=== PATIENT | male | born 1955 | race Caucasian/White ===

== ENCOUNTER 2017-03-20 15:49 | Inpatient (IN) | payer OTHER ==
[2017-03-20] VITALS (10 sets, daily range): BP systolic 173–190; BP diastolic 77–93; PULSE 78–109; RESP 16–24; TEMP 97.6–98; O2SAT 93–99
[~2017-03-20] VITALS: Ht 188 cm; Wt 72.1 kg
[~2017-03-20 15:49] MED LIST: AMLO5TAB96 PO
[2017-03-20] MEDS ORDERED: FUROSEMIDE 40 MG/4 ML VIAL IVP ONE (16:30)
[2017-03-20] MEDS ORDERED: SODIUM CHLORIDE 0.9% FLUSH 10 ML FLUSH IVF PRN (16:30)
[2017-03-20 16:39] LABS: AUTOMATED NEUTROPHIL # 13.6 TH/MM3 (1.8-7.7); BASOPHIL # 0.4 TH/MM3 (0-0.2); BASOPHIL % 1.2 % (0.0-2.0); EOSINOPHIL # 0.5 TH/MM3 (0-0.4); EOSINOPHIL % 1.7 % (0.0-4.0); LYMPH % 47.1 % (9.0-44.0); LYMPHOCYTE # 13.7 TH/MM3 (1.0-4.8); MEAN CELL VOLUME 85.5 FL (80.0-100.0); MEAN CORPUSCULAR HEMOGLOBIN 28.7 PG (27.0-34.0); MEAN CORPUSCULAR HGB CONC 33.5 % (32.0-36.0); MONO % 3.7 % (0.0-8.0); NEUT % 46.3 % (16.0-70.0); PLATELET COUNT 270 TH/MM3 (150-450); RED BLOOD COUNT 2.37 MIL/MM3 (4.50-5.90); WHITE BLOOD COUNT 29.3 TH/MM3 (4.0-11.0)
[2017-03-20 16:41] LABS: CHLORIDE 92 MEQ/L (98-107); POTASSIUM 4.4 MEQ/L (3.5-5.1); SODIUM (NA) 130 MEQ/L (136-145)
[2017-03-20 16:45] LABS: ANION GAP 24 MEQ/L (5-15)
[2017-03-20 16:48] LABS: ALT (GPT) 18 U/L (12-78); AST (GOT) 15 U/L (15-37)
[2017-03-20 16:50] LABS: TOTAL BILIRUBIN ADULT 0.6 MG/DL (0.2-1.0)
[2017-03-20 16:51] LABS: ALKALINE PHOSPHATASE 80 U/L (45-117); BLOOD UREA NITROGEN 189 MG/DL (7-18); CREATINE KINASE 348 U/L (39-308)
[2017-03-20 17:04] LABS: CKMB 16.1 NG/ML (0.5-3.6)
[2017-03-20 17:07] LABS: HEMATOCRIT 20.3 % (39.0-51.0); HEMO FLAGS AUTO DIFF
[2017-03-20 17:19] LABS: GLOMERULAR FILTRATION RATE 2 ML/MIN (>89)
--- NOTE | 2017-03-20 17:28 | RADRPT ---
EXAM DATE/TIME: 03/20/2017 17:08 [facility] COMPARISON: No previous studies available for comparison. INDICATIONS : Short of breath. MEDICAL HISTORY : None. SURGICAL HISTORY : None. ENCOUNTER: Initial ACUITY: 1 day PAIN SCORE: 0/10 LOCATION: Bilateral chest FINDINGS: A single view of the chest demonstrates mild to moderate pulmonary edema pattern with small effusions . Heart size mildly enlarged. No pneumothorax. CONCLUSION: 1. Mild to moderate pulmonary edema pattern with small effusions. Sebastián Greer MD on March 20, 2017 at 17:25 Board Certified Radiologist. This report was verified electronically.
[2017-03-20] MEDS ORDERED: SODIUM CHLOR 0.9% 250 ML INJ 250 ML IV ONE (17:30)
[2017-03-20 17:40] LABS: NEUTROPHIL # MANUAL DIFF 17.3 TH/MM3 (1.8-7.7); POLYS (SEG NEUTROPHILS) 59 % (16-70)
[2017-03-20 17:41] LABS: PLATELET ESTIMATE SMEAR NORMAL (NORMAL); PLATELET MORPHOLOGY NORMAL (NORMAL); ROULEAUX PRESENT (NORMAL); SCAN/DIFF FINAL DIFF MANUAL; WBC DIFF SAMPLE 100
--- NOTE | 2017-03-20 18:14 | PD ---
HPI Chief Complaint: Respiratory Symptoms Time Seen by Provider: 16:20 Travel History International Travel<30 days: No Contact w/Intl Traveler<30days: No Traveled to known affect area: No History of Present Illness HPI Patient is 61 years old. He arrives complaining increasing shortness of breath for the past 3 days or so. Orthopnea reported. He's had an occasional cough. He denies difficulty urinating or any change in his normal urinary habits. He has no abdominal pain. He smokes tobacco. He states he quit drinking alcohol a few weeks ago. He's had nausea however no vomiting. He's had no chest pain. Pt has had no outside medical follow up to date. [facility] Past Medical History Medical History: Denies Significant Hx Diminished Hearing: No Gastrointestinal Disorders: No Genitourinary: No Hypertension: No Inguinal Hernia: Yes (RT) Musculoskeletal: No Neurologic: No Reproductive: No Respiratory: No Influenza Vaccination: No Past Surgical History Surgical History: No Previous Surgery Other Surgery: No Social History Alcohol Use: No ("QUIT 2 MONTHS AGO") Tobacco Use: Yes (3 CIGS "QUITTING") Substance Use: No Allergies-Medications (Allergen,Severity, Reaction): Coded Allergies: No Known Allergies (Verified , 03/20/17) Reported Meds & Prescriptions Reported Meds & Active Scripts Active No Active Prescriptions or Reported Medications Review of Systems Except as stated in HPI: all other systems reviewed are Neg Physical Exam Narrative GENERAL: 61 M WNWD speaking full sentences SKIN: Focused skin assessment warm/dry. HEAD: Atraumatic. Normocephalic. EYES: Pupils equal and round. No scleral icterus. No injection or drainage. ENT: No nasal bleeding or discharge. Mucous membranes pink and moist. NECK: Trachea midline. No JVD. CARDIOVASCULAR: Regular rate and rhythm. No murmur appreciated. RESPIRATORY: Minimal rales bilaterally. Minimal tachypnea. GASTROINTESTINAL: Abdomen soft, non-tender, nondistended. Hepatic and splenic margins not palpable. MUSCULOSKELETAL: No obvious deformities. No clubbing. No cyanosis. 2+ edema bilateral ankles. NEUROLOGICAL: Awake and alert. No obvious cranial nerve deficits. Motor grossly within normal limits. Normal speech. PSYCHIATRIC: Appropriate mood and affect; insight and judgment normal. Data Data Last Documented VS Vital Signs Date Time Temp Pulse Resp B/P Pulse Ox O2 Delivery O2 Flow Rate FiO2 03/20/17 16:45 87 16 174/86 94 03/20/17 16:30 Room Air 03/20/17 16:26 97.6 Orders Complete Blood Count With Diff (03/20/17 16:20) Comprehensive Metabolic Panel (03/20/17 16:20) B-Type Natriuretic Peptide (03/20/17 16:20) D-Dimer (03/20/17 16:20) Ckmb (Isoenzyme) Profile (03/20/17 16:20) Troponin I (03/20/17 16:20) Iv Access Insert/Monitor (03/20/17 16:20) Electrocardiogram (03/20/17 16:20) Ecg Monitoring (03/20/17 16:20) Oximetry (03/20/17 16:20) Oxygen Administration (03/20/17 16:20) Chest, Single Ap (03/20/17 16:20) Sodium Chloride 0.9% Flush (Ns Flush) (03/20/17 16:30) Furosemide Inj (Lasix Inj) (03/20/17 16:30) Us Leg Venous Doppler Bilat (03/20/17 ) CKMB (03/20/17 16:27) CKMB% (03/20/17 16:27) Type And Screen (03/20/17 17:21) Red Blood Cells (Rbc) (03/20/17 17:21) Blood Product Administration .UPON TRANSFUSION (03/20/17 17:21) Sodium Chlor 0.9% 250 Ml Inj (Ns 250 Ml (03/20/17 17:30) Urinary Catheter Insert/Apply (03/20/17 17:25) Us Kidney/Renal/Bladder (03/20/17 ) Admit Order (Ed Use Only) (03/20/17 18:00) Labs Laboratory Tests Test 03/20/17 16:27 White Blood Count 29.3 TH/MM3 Red Blood Count 2.37 MIL/MM3 Hemoglobin 6.8 GM/DL Hematocrit 20.3 % Mean Corpuscular Volume 85.5 FL Mean Corpuscular Hemoglobin 28.7 PG Mean Corpuscular Hemoglobin 33.5 % Concent Red Cell Distribution Width 13.0 % Platelet Count 270 TH/MM3 Mean Platelet Volume 7.7 FL Neutrophils (%) (Auto) 46.3 % Lymphocytes (%) (Auto) 47.1 % Monocytes (%) (Auto) 3.7 % Eosinophils (%) (Auto) 1.7 % Basophils (%) (Auto) 1.2 % Neutrophils # (Auto) 13.6 TH/MM3 Lymphocytes # (Auto) 13.7 TH/MM3 Monocytes # (Auto) 1.1 TH/MM3 Eosinophils # (Auto) 0.5 TH/MM3 Basophils # (Auto) 0.4 TH/MM3 CBC Comment AUTO DIFF Differential Total Cells 100 Counted Neutrophils % (Manual) 59 % Lymphocytes % 39 % Monocytes % 2 % Neutrophils # (Manual) 17.3 TH/MM3 Differential Comment FINAL DIFF MANUAL Platelet Estimate NORMAL Platelet Morphology Comment NORMAL Rouleau PRESENT D-Dimer Quantitative (PE/DVT) 3.55 MG/L FEU Sodium Level 130 MEQ/L Potassium Level 4.4 MEQ/L Chloride Level 92 MEQ/L Carbon Dioxide Level 14.0 MEQ/L Anion Gap 24 MEQ/L Blood Urea Nitrogen 189 MG/DL Creatinine 21.00 MG/DL Estimat Glomerular Filtration 2 ML/MIN Rate Random Glucose 139 MG/DL Calcium Level 7.5 MG/DL Total Bilirubin 0.6 MG/DL Aspartate Amino Transf 15 U/L (AST/SGOT) Alanine Aminotransferase 18 U/L (ALT/SGPT) Alkaline Phosphatase 80 U/L Total Creatine Kinase 348 U/L Creatine Kinase MB 16.1 NG/ML Creatine Kinase MB % 4.6 % Troponin I 0.20 NG/ML B-Type Natriuretic Peptide 3988 PG/ML Total Protein 7.4 GM/DL Albumin 3.2 GM/DL [facility] Medical Decision Making Medical Screen Exam Complete: Yes Emergency Medical Condition: Yes Medical Record Reviewed: Yes Differential Diagnosis CHF, PNA, renal failure, hypoalbuminemia, arrhythmia Narrative Course CBC & BMP Diagram 03/20/17 16:27 AG 24 BNP 3988 Tn 0.20 Total CK 348 EKG: Sinus, rate 88, LVH present Last 24 hours Impressions Chest X-Ray 03/20/17 1620 Signed Impressions: Service Date/Time: Monday, March 20, 2017 17:08 - CONCLUSION: 1. Mild to moderate pulmonary edema pattern with small effusions. Sebastián Greer MD Renal Ultrasound 03/20/17 0000 Signed Impressions: Service Date/Time: Monday, March 20, 2017 17:46 - CONCLUSION: 1. Moderate bilateral hydronephrosis. Distended bladder. Enlarged prostate. Sebastián Greer MD Lower Extremity Ultrasound 03/20/17 0000 Signed Impressions: Service Date/Time: Monday, March 20, 2017 17:30 - CONCLUSION: Normal examination. Sebastián rGeer MD PT will be admitted to [facility] [place]. d/w Dr Bonilla: renal sono added; carson placed, 1L dark urine guaiac negative 2u PRBCs ordered d/w Dr Eduardo for Master Fire Control Technician service Critical Care Narrative Aggregate critical care time was 40 minutes. Time to perform other separately billable procedures was not included in the critical care time. My time did not include minutes spent treating any other patients simultaneously or on activities that did not directly contribute to the patient's treatment. The services I provided to this patient were to treat and/or prevent clinically significant deterioration that could result in: Arrhythmia, multiorgan failure, septic shock I provided critical care services requiring my management, as noted below: Chart data review, documentation time, medication orders and management, vital sign assessments/reviewing monitor data, ordering and reviewing lab tests, ordering and interpreting/reviewing x-rays and diagnostic studies, care of the patient and discussion of the patient with the admitting physicians. HemaPrompt Point of Care Internal Pos. & Neg. Controls: Passed Fecal Specimen Occult Blood: Negative Diagnosis Primary Impression: Uropathy, obstructive Additional Impressions: Renal failure Qualified Code: N17.9 - Acute renal failure, unspecified acute renal failure type Anemia Qualified Code: D64.9 - Anemia, unspecified type Dyspnea Qualified Code: R06.00 - Dyspnea, unspecified type Admitting Information Admitting Physician Requests: Admit Scripts No Active Prescriptions or Reported Meds David Contreras MD Mar 20, 2017 18:14
[2017-03-20] MEDS ORDERED: SENNOSIDES 8.6 MG TAB PO PRN (18:15)
[2017-03-20] MEDS ORDERED: MAGNESIUM HYDROXIDE SUSP 30 ML CUP PO PRN (18:15)
[2017-03-20] MEDS ORDERED: CHLORHEXIDINE GLUCONATE 2 % 1 PACK (2 CLOTHS) TOP PRN (18:15)
[2017-03-20] MEDS ORDERED: SODIUM CHLORIDE 0.9% FLUSH 10 ML FLUSH IV FLUSH PRN (18:15)
[2017-03-20] MEDS ORDERED: ACETAMINOPHEN 325 MG TAB PO PRN (18:15)
[2017-03-20] MEDS ORDERED: BISACODYL 10 MG SUPP RECTAL PRN (18:15)
[2017-03-20] MEDS ORDERED: ACETAMINOPHEN/HYDROcodone 325 MG/5 MG TAB PO PRN (18:15)
[2017-03-20] MEDS ORDERED: MISCELLANEOUS NURSING INFORMATION XX SCH (18:15)
[2017-03-20] MEDS ORDERED: RESP: ALBUTEROL 2.5 MG/3 ML NEB (PRN) INH (18:15)
--- NOTE | 2017-03-20 18:16 | RADRPT ---
EXAM DATE/TIME: 03/20/2017 17:30 [facility] COMPARISON: No previous studies available for comparison. INDICATIONS : Bilateral leg swelling. MEDICAL HISTORY : Hernia, inguinal. SURGICAL HISTORY : None. ENCOUNTER: Initial ACUITY: 2 day PAIN SCORE: 0/10 LOCATION: Bilateral leg. TECHNIQUE: Venous ultrasound of the left and right leg was performed from the inguinal ligament to the proximal calf. Real-time, color Doppler and spectral tracing, compression and augmentation techniques were us ed. FINDINGS: RIGHT LEG: There is normal compressibility of the deep venous system from the inguinal region to the proximal ca lf. No echogenic clot is seen in the lumen of the common femoral, femoral, popliteal, and posterior tibial veins. There is a normal response of the venous system to proximal and distal augmentation an d respiration. LEFT LEG: There is normal compressibility of the deep venous system from the inguinal region to the proximal ca lf. No echogenic clot is seen in the lumen of the common femoral, femoral, popliteal, and posterior tibial veins. There is a normal response of the venous system to proximal and distal augmentation an d respiration. CONCLUSION: Normal examination. Sebastián Greer MD on March 20, 2017 at 18:13 Board Certified Radiologist. This report was verified electronically.
--- NOTE | 2017-03-20 18:18 | RADRPT ---
EXAM DATE/TIME: 03/20/2017 17:46 [facility] COMPARISON: No previous studies available for comparison. INDICATIONS : Increased BUN/creatinine. MEDICAL HISTORY : Hernia, inguinal. SURGICAL HISTORY : None. ENCOUNTER: Initial ACUITY: 1 day PAIN SCORE: 0/10 LOCATION: Bilateral flank MEASUREMENTS: RIGHT KIDNEY: 13.0 x 6.2 x 6.1 cm LEFT KIDNEY: 13.7 x 5.5 x 6.6 cm FINDINGS: There is moderate bilateral hydronephrosis. Kidneys are enlarged to between 13 and 14 cm bilaterally . The bladder is distended to almost 960 mL. There is some debris in the bladder. Prostate appears en larged. CONCLUSION: 1. Moderate bilateral hydronephrosis. Distended bladder. Enlarged prostate. Sebastián Greer MD on March 20, 2017 at 18:14 Board Certified Radiologist. This report was verified electronically.
[2017-03-20 19:07] LABS: APTT (PATIENT) 34.2 SEC (24.3-30.1); INTERNATIONAL NORMALIZED RATIO 1.1 RATIO; PROTHROMBIN TIME - PATIENT 12.4 SEC (9.8-11.6)
[2017-03-20 19:15] LABS: MAGNESIUM 1.7 MG/DL (1.5-2.5)
[2017-03-20 19:16] LABS: GLUCOSE,URINE NEG (NEG); KETONE, URINE NEG (NEG); NITRITE,URINE NEG (NEG); PH, URINE 5.5 (5.0-8.5)
[2017-03-20 19:25] LABS: BLOOD, URINE MOD (NEG)
[2017-03-20 19:26] LABS: SQUAMOUS EPITHELIAL CELL URINE 0-5 /hpf (0-5); URINE COLOR YELLOW (YELLW/STRAW); WBC, URINE 0-2 /hpf (0-5)
[2017-03-20 19:27] LABS: COMMENT (UR) CULT NOT INDICATED; CULTURE IF INDICATED CULT NOT INDICATED; MUCUS URINE OCC /lpf (OCC)
[2017-03-20] MEDS: DOCUSATE SODIUM 50 MG/SENNA 8.6 MG TAB PO SCH (21:00)
[2017-03-20] MEDS: SODIUM CHLORIDE 0.9% FLUSH 10 ML FLUSH IV FLUSH SCH (21:46)
[2017-03-20] MEDS ORDERED: SODIUM CHLOR 0.9% 1000 ML INJ 1,000 ML IV SCH (23:00)
[2017-03-21] VITALS (12 sets, daily range): BP systolic 146–173; BP diastolic 76–91; PULSE 61–82; RESP 12–23; TEMP 97.2–98.5; O2SAT 95–100
--- NOTE | 2017-03-21 00:24 | HHI.HP ---
HPI Service Critical Care Medicine Primary Care Physician No Primary Care Physician Admission Diagnosis Obstructive Uropathy/Renal Failure; Dyspnea; Pulmonary Edema; Anemia Diagnosis: Travel History International Travel<30 Days: No Contact w/Intl Traveler <30 Da: No Traveled to Known Affected Are: No History of Present Illness 61 yo WM with PMH of hypertension (not on medical therapy), daily alcohol use, not followed by primary care physician who presenteds to [facility] emergency department [place] with a chief complaint of shortness of breath. He states that for about the last week he has had cough, orthopnea, shortness of breath. Over the last 3 days he has had pedal edema. He denies chest pain but stated that a week ago he had tightness in his chest while in bed. He denies any exertional chest pain or chest tightness. + dysnea on exertion. He states that he has not been feeling well for 3-4 months after he had an episode of sore throat, sinus congestion, myalgias, low-grade fever. He has had poor appetite for the last couple of months and states that he has lost 8-12 pounds over the last 2 months. He attributes his weight loss to discontinuation of beer 2 months ago. Upon presentation to the ED he was noted to be in renal failure with BUN 189 and Creatinine 21. BNP is 3988. Troponin 0.2. Pollock was placed and he had 1 L urine output immediately. He had hematuria after difficult cathter placement but denies hematuria at home. He does indicate difficulty with voiding completely and with "weak stream". Denies dysuria or flank pain. He is anemic with Hgb 6.8. He has had diarrhea for the last month but denies melena, BRBPR. He has never had an EGD or colonoscopy. He has been taking an Alkaseltzer Cold combination drug daily for 1 week but he is uncertain if it contains NSAIDS. Review of Systems ROS Limitations: Clinical Condition Past Family Social History Allergies: Coded Allergies: No Known Allergies (Verified , 03/20/17) Past Medical History Hypertension (not on medical therapy) Does not have a primary physician Past Surgical History Mole removal Reported Medications None Family History Father at age 72 with a stroke. He had diabetes Mother of complications of emphysema at age 67. He denies family history of cardiac or renal disease Social History He states he used to be a daily beer drinker of 2-6 beers per day. 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 He is and has 3 adult children Physical Exam Vital Signs Vital Signs Date Time Temp Pulse Resp B/P Pulse Ox O2 Delivery O2 Flow Rate FiO2 03/20/17 23:00 80 03/20/17 22:52 98.0 84 24 174/84 96 03/20/17 21:30 98.0 82 16 173/82 96 03/20/17 21:30 96 Nasal Cannula 3.00 03/20/17 19:28 97 Nasal Cannula 2 03/20/17 19:28 78 18 177/90 97 Nasal Cannula 2 03/20/17 18:00 94 16 183/91 99 03/20/17 16:45 87 16 174/86 94 03/20/17 16:30 98 Room Air 03/20/17 16:26 97.6 89 20 190/77 94 03/20/17 16:05 91 24 190/77 98 03/20/17 16:05 91 24 98 03/20/17 15:56 97.6 109 16 177/93 93 Physical Exam GENERAL: Ill appearing thin male with pallor. SKIN: Warm and dry. HEAD: Atraumatic. Normocephalic. EYES: Pupils equal and round. No scleral icterus. No injection or drainage. ENT: Mucous membranes pink and moist. NECK: Trachea midline. No JVD appreciated. CARDIOVASCULAR: Regular rate and rhythm. No murmurs rubs or gallops. RESPIRATORY: No accessory muscle use. Clear to auscultation. Breath sounds equal bilaterally. On NC GASTROINTESTINAL: Abdomen soft, non-tender, nondistended. Reducible R inguinal hernia. Bowel sounds present. MUSCULOSKELETAL: Extremities without clubbing, cyanosis. 2+ pedal edema going up about 1/3 of lower leg bilaterally. NEUROLOGICAL: Awake and alert. No obvious cranial nerve deficits. Motor grossly within normal limits. Normal speech. Laboratory Laboratory Tests Test 03/20/17 03/20/17 03/20/17 03/20/17 16:27 17:25 18:02 18:20 White Blood Count 29.3 Red Blood Count 2.37 Hemoglobin 6.8 Hematocrit 20.3 Mean Corpuscular Volume 85.5 Mean Corpuscular Hemoglobin 28.7 Mean Corpuscular Hemoglobin 33.5 Concent Red Cell Distribution Width 13.0 Platelet Count 270 Mean Platelet Volume 7.7 Neutrophils (%) (Auto) 46.3 Lymphocytes (%) (Auto) 47.1 Monocytes (%) (Auto) 3.7 Eosinophils (%) (Auto) 1.7 Basophils (%) (Auto) 1.2 Neutrophils # (Auto) 13.6 Lymphocytes # (Auto) 13.7 Monocytes # (Auto) 1.1 Eosinophils # (Auto) 0.5 Basophils # (Auto) 0.4 CBC Comment AUTO DIFF Differential Total Cells 100 Counted Neutrophils % (Manual) 59 Lymphocytes % 39 Monocytes % 2 Neutrophils # (Manual) 17.3 Differential Comment FINAL DIFF MANUAL Platelet Estimate NORMAL Platelet Morphology Comment NORMAL Rouleau PRESENT D-Dimer Quantitative (PE/DVT) 3.55 Sodium Level 130 Potassium Level 4.4 Chloride Level 92 Carbon Dioxide Level 14.0 Anion Gap 24 Blood Urea Nitrogen 189 Creatinine 21.00 Estimat Glomerular Filtration 2 Rate Random Glucose 139 Calcium Level 7.5 Total Bilirubin 0.6 Aspartate Amino Transf 15 (AST/SGOT) Alanine Aminotransferase 18 (ALT/SGPT) Alkaline Phosphatase 80 Total Creatine Kinase 348 Creatine Kinase MB 16.1 Creatine Kinase MB % 4.6 Troponin I 0.20 B-Type Natriuretic Peptide 3988 Total Protein 7.4 Albumin 3.2 Blood Type O NEGATIVE O NEGATIVE Antibody Screen NEGATIVE Crossmatch Leukocyte-Reduced Red Blood Cells Blood Bank Comment Urine Color YELLOW Urine Turbidity CLEAR Urine pH 5.5 Urine Specific [place] 1.010 Urine Protein NEG Urine Glucose (UA) NEG Urine Ketones NEG Urine Occult Blood MOD Urine Nitrite NEG Urine Bilirubin NEG Urine Leukocyte Esterase TRACE Urine RBC 4-9 Urine WBC 0-2 Urine Squamous Epithelial 0-5 Cells Urine Mucus OCC Microscopic Urinalysis Comment CULT NOT INDICATED Urine Eosinophils NONE SEEN Urine Random Creatinine 61.5 Urine Random Sodium 59 Test 03/20/17 03/20/17 18:40 18:45 Lactic Acid Level 1.1 Prothrombin Time 12.4 Prothromb Time International 1.1 Ratio Activated Partial 34.2 Thromboplast Time Fibrinogen 506 Phosphorus Level 10.0 Magnesium Level 1.7 Troponin I 0.23 Amylase Level 48 Lipase 164 Result Diagram: 03/20/17 1627 03/20/17 162 Assessment and Plan Assessment and Plan NEURO: Lortab as needed for pain RESP: Nasal cannula wean as tolerated CV: Hypertension Pulmonary edema Obtain 2-D echo, serial EKG, serial cardiac markers. Hold ASA /anticoagulants at this time as no symptoms of ACS and patient has symptomatic anemia. Metoprolol 25 mg by mouth every 12 hours. Not a candidate for ETHEL inhibitor due to acute kidney injury. GI: Reducible right inguinal hernia NPO pending CT results. . FEN/RENAL: Acute kidney injury Urinary obstruction UOP was 1 L immediately after Pollock was placed. Subsequent urine output was 450 over about 3 hours. We'll continue to monitor urine output closely. BUN is elevated at 189 the patient's mentation is normal. Potassium is okay. Nephrology consulted ID: Leukocytosis Covered empirically with cefepime for possibility of sepsis given his leukocytosis, possible prostatitis. Follow-up blood and urine culture. HEME: Anemia Leukocytosis - lymphocytosis. Anemia with Hgb 6.8. Transfuse 1 unit packed red cells and repeat hemoglobin was 6.7. Transfused additional unit packed red cells and will follow-up hemoglobin posttransfusion. Patient does not report any GI bleeding. Hemoccult was negative in the ED. Initiate workup for anemia /hemolysis. Obtain CT chest abdomen and pelvis without contrast. Evaluate for retroperitoneal hemorrhage as well as malignant process. D-dimer was elevated. Bilateral lower extremity ultrasounds are negative. Ddimer elevation may be acute phase reactant. PAtient with severe anemia so would not be a candidate for anticoagulation so will not workup further for PE at this time. ENDO: Euglycemic PROPH: Protonix 40 g IV daily for stress ulcer prophylaxis. SCDs for DVT prophylaxis. Hold on pharmacologic DVT prophylaxis due to severe anemia. ACCESS: PIV providing adequate access at this time. Level 3 H and P/ Mine Schultz MD Mar 21, 2017 00:24
[2017-03-21] MEDS: CEFEPIME INJ 1,000 MG in SODIUM CHLORIDE 0.9% INJ 100 ML IV SCH (00:38)
[2017-03-21 01:49] LABS: MEAN CELL VOLUME 86.8 FL (80.0-100.0); MEAN CORPUSCULAR HEMOGLOBIN 28.5 PG (27.0-34.0); MEAN CORPUSCULAR HGB CONC 32.8 % (32.0-36.0); PLATELET COUNT 193 TH/MM3 (150-450); RED BLOOD COUNT 2.34 MIL/MM3 (4.50-5.90); RED CELL DISTRIBUTION WIDTH 15.3 % (11.6-17.2); WHITE BLOOD COUNT 22.8 TH/MM3 (4.0-11.0)
[2017-03-21 01:55] LABS: REVIEW FLAG FINAL
[2017-03-21 01:58] LABS: HEMATOCRIT 20.3 % (39.0-51.0)
[2017-03-21 02:19] LABS: CREATINE KINASE 249 U/L (39-308)
[2017-03-21 02:29] LABS: BICARBONATE 15.4 MEQ/L (21.0-32.0); POTASSIUM 4.5 MEQ/L (3.5-5.1)
[2017-03-21 02:31] LABS: CKMB 11.7 NG/ML (0.5-3.6)
[2017-03-21 02:43] LABS: CALCIUM-PROTEIN CORRECTED 7.7 MG/DL (8.5-10.1)
[2017-03-21] MEDS ORDERED: FUROSEMIDE 40 MG/4 ML VIAL IV PUSH ONE (02:45)
[2017-03-21] MEDS: METOPROLOL TARTRATE 25 MG TAB PO SCH ×3 (03:16→19:54)
[2017-03-21] MEDS: CHLORHEXIDINE GLUCONATE 2 % 1 PACK (2 CLOTHS) TOP SCH (03:17)
[2017-03-21 05:23] LABS: CREATINE KINASE 223 U/L (39-308)
[2017-03-21 05:38] LABS: CKMB 10.6 NG/ML (0.5-3.6)
[2017-03-21] MEDS ORDERED: DIATRIZOATE MEGLUM/DIATRIZOATE SOD 9 ML CUP PO ONE (07:45)
[2017-03-21] MEDS: PANTOPRAZOLE SODIUM 40 MG VIAL IV SCH (08:37)
[2017-03-21] MEDS: DOCUSATE SODIUM 50 MG/SENNA 8.6 MG TAB PO SCH ×2 (08:37→19:55)
[2017-03-21] MEDS: SODIUM CHLORIDE 0.9% FLUSH 10 ML FLUSH IV FLUSH SCH ×2 (08:37→19:55)
--- NOTE | 2017-03-21 08:44 | PD.CONS ---
HPI Service Urology Consult Requested By Primary Care Physician No Primary Care Physician Diagnosis: History of Present Illness 61 year-old male presents with weakness and lethargy over the last few weeks. Patient is noted to be a chronic drinker with 4-6 beers at night. He notes a moderate urinary stream with nocturia 3-4 times. He noticed increased difficulty with urination over last few days and the Pollock catheter was placed in the emergency room for over a liter. His creatinine on admission was 19.95. He does admit to a family history of prostate cancer with his grandfather having the disease. PSA on admission was noted to be 82.12. He states he does not have a primary care doctor and has not been to see a physician in many years. He does note easy bruising at times and has petechia over his upper extremities. He also has been experiencing lower extremity edema and was found to be in pulmonary edema on his admission chest x-ray. He denies any prior surgery. He has noted some sinusitis and flulike symptoms over the last few weeks also. He denies any dark colored stools. Review of Systems Constitutional: DENIES: Diaphoretic episodes Endocrine: DENIES: Heat/cold intolerance Eyes: DENIES: Blurred vision Ears, nose, mouth, throat: DENIES: Tinnitus Respiratory: DENIES: Apneas Cardiovascular: DENIES: Chest pain Gastrointestinal: DENIES: Abdominal pain Musculoskeletal: DENIES: Joint pain Integumentary: DENIES: Abnormal pigmentation Hematologic/lymphatic: COMPLAINS OF: Bruising Immunologic/allergic: DENIES: Eczema Neurologic: DENIES: Abnormal gait Psychiatric: DENIES: Anxiety Past Family Social History Past Medical History Hypertension Kidney stone 30 years ago Past Surgical History Mole removal Allergies: Coded Allergies: No Known Allergies (Verified , 03/20/17) Family History Emphysema Prostate cancer noted in his grandfather on his mother's side. Social History Smoker one half pack per day for 40 years 4-6 beers per evening for many years. Physical Exam Vital Signs Date Time Temp Pulse Resp B/P Pulse Ox O2 Delivery O2 Flow Rate FiO2 03/21/17 04:00 98.1 79 23 173/91 97 03/21/17 04:00 98.1 79 23 173/91 97 03/21/17 03:00 98.5 77 15 151/79 99 03/21/17 00:00 98.3 80 18 160/85 95 03/21/17 00:00 98.3 80 18 160/85 95 03/20/17 23:00 80 03/20/17 22:52 98.0 84 24 174/84 96 03/20/17 21:30 98.0 82 16 173/82 96 03/20/17 21:30 96 Nasal Cannula 3.00 03/20/17 19:28 97 Nasal Cannula 2 03/20/17 19:28 78 18 177/90 97 Nasal Cannula 2 03/20/17 18:00 94 16 183/91 99 03/20/17 16:45 87 16 174/86 94 03/20/17 16:30 98 Room Air 03/20/17 16:26 97.6 89 20 190/77 94 03/20/17 16:05 91 24 190/77 98 03/20/17 16:05 91 24 98 03/20/17 15:56 97.6 109 16 177/93 93 Physical Exam GENERAL: This is a well-nourished, well-developed patient, in no apparent distress. SKIN: No rashes, ecchymoses or lesions. Cool and dry. HEAD: Atraumatic. Normocephalic. No temporal or scalp tenderness. EYES: Pupils equal round and reactive. Extraocular motions intact. No scleral icterus. No injection or drainage. ENT: Nose without bleeding, purulent drainage or septal hematoma. Throat without erythema, tonsillar hypertrophy or exudate. Uvula midline. Airway patent. NECK: Trachea midline. No JVD or lymphadenopathy. Supple, nontender, no meningeal signs. CARDIOVASCULAR: Regular rate and rhythm without murmurs, gallops, or rubs. RESPIRATORY: Clear to auscultation. Breath sounds equal bilaterally. No wheezes , rales, or rhonchi. GASTROINTESTINAL: Abdomen soft, non-tender, nondistended. No hepato-splenomegaly , or palpable masses. No guarding. GENITOURINARY: Left inguinal hernia is present, testes are descended without masses, circumcised phallus, rectal exam shows a firm prostate noted but no nodules palpated MUSCULOSKELETAL: Extremities without clubbing, cyanosis, or edema. No joint tenderness, effusion, or edema noted. No calf tenderness. Negative Homans sign bilaterally. NEUROLOGICAL: Awake and alert. Cranial nerves II through XII intact. Motor and sensory grossly within normal limits. Five out of 5 muscle strength in all muscle groups. Normal speech. Laboratory Tests Test 03/20/17 03/20/17 03/20/17 03/20/17 16:27 17:25 18:02 18:20 White Blood Count 29.3 Red Blood Count 2.37 Hemoglobin 6.8 Hematocrit 20.3 Mean Corpuscular Volume 85.5 Mean Corpuscular Hemoglobin 28.7 Mean Corpuscular Hemoglobin 33.5 Concent Red Cell Distribution Width 13.0 Platelet Count 270 Mean Platelet Volume 7.7 Neutrophils (%) (Auto) 46.3 Lymphocytes (%) (Auto) 47.1 Monocytes (%) (Auto) 3.7 Eosinophils (%) (Auto) 1.7 Basophils (%) (Auto) 1.2 Neutrophils # (Auto) 13.6 Lymphocytes # (Auto) 13.7 Monocytes # (Auto) 1.1 Eosinophils # (Auto) 0.5 Basophils # (Auto) 0.4 CBC Comment AUTO DIFF Differential Total Cells 100 Counted Neutrophils % (Manual) 59 Lymphocytes % 39 Monocytes % 2 Neutrophils # (Manual) 17.3 Differential Comment FINAL DIFF MANUAL Platelet Estimate NORMAL Platelet Morphology Comment NORMAL Rouleau PRESENT D-Dimer Quantitative (PE/DVT) 3.55 Sodium Level 130 Potassium Level 4.4 Chloride Level 92 Carbon Dioxide Level 14.0 Anion Gap 24 Blood Urea Nitrogen 189 Creatinine 21.00 Estimat Glomerular Filtration 2 Rate Random Glucose 139 Calcium Level 7.5 Total Bilirubin 0.6 Aspartate Amino Transf 15 (AST/SGOT) Alanine Aminotransferase 18 (ALT/SGPT) Alkaline Phosphatase 80 Total Creatine Kinase 348 Creatine Kinase MB 16.1 Creatine Kinase MB % 4.6 Troponin I 0.20 B-Type Natriuretic Peptide 3988 Total Protein 7.4 Albumin 3.2 Blood Type O NEGATIVE O NEGATIVE Antibody Screen NEGATIVE Crossmatch Leukocyte-Reduced Red Blood Cells Blood Bank Comment Urine Color YELLOW Urine Turbidity CLEAR Urine pH 5.5 Urine Specific [place] 1.010 Urine Protein NEG Urine Glucose (UA) NEG Urine Ketones NEG Urine Occult Blood MOD Urine Nitrite NEG Urine Bilirubin NEG Urine Leukocyte Esterase TRACE Urine RBC 4-9 Urine WBC 0-2 Urine Squamous Epithelial 0-5 Cells Urine Mucus OCC Microscopic Urinalysis Comment CULT NOT INDICATED Urine Eosinophils NONE SEEN Urine Random Creatinine 61.5 Urine Random Sodium 59 Test 03/20/17 03/20/17 03/20/17 03/21/17 18:40 18:45 22:21 01:25 Lactic Acid Level 1.1 Prothrombin Time 12.4 Prothromb Time International 1.1 Ratio Activated Partial 34.2 Thromboplast Time Fibrinogen 506 Phosphorus Level 10.0 Magnesium Level 1.7 Troponin I 0.23 0.26 Amylase Level 48 Lipase 164 Nasal Screen MRSA (PCR) MRSA NOT DETECTED White Blood Count 22.8 Red Blood Count 2.34 Hemoglobin 6.7 Hematocrit 20.3 Mean Corpuscular Volume 86.8 Mean Corpuscular Hemoglobin 28.5 Mean Corpuscular Hemoglobin 32.8 Concent Red Cell Distribution Width 15.3 Platelet Count 193 Mean Platelet Volume 8.3 Sodium Level 131 Potassium Level 4.5 Chloride Level 95 Carbon Dioxide Level 15.4 Anion Gap 21 Blood Urea Nitrogen 182 Creatinine 19.95 Estimat Glomerular Filtration 2 Rate Random Glucose 142 Calcium Level 7.3 Protein Corrected Calcium 7.7 Total Creatine Kinase 249 Creatine Kinase MB 11.7 Total Protein 6.4 Prostate Specific Antigen 82.12 Screen Test 03/21/17 04:30 Total Creatine Kinase 223 Creatine Kinase MB 10.6 Troponin I 0.25 Date/Time Procedure Status Source Growth 03/21/17 01:30 Aerobic Blood Culture Received Blood Peripheral Pending 03/21/17 01:30 Anaerobic Blood Culture Received Blood Peripheral Pending Result Diagram: 03/21/17 0125 03/21/17 0125 Imaging Last Impressions Chest X-Ray 03/20/17 1620 Signed Impressions: Service Date/Time: Monday, March 20, 2017 17:08 - CONCLUSION: 1. Mild to moderate pulmonary edema pattern with small effusions. Sebastián Greer MD Renal Ultrasound 03/20/17 0000 Signed Impressions: Service Date/Time: Monday, March 20, 2017 17:46 - CONCLUSION: 1. Moderate bilateral hydronephrosis. Distended bladder. Enlarged prostate. Sebastián Greer MD Lower Extremity Ultrasound 03/20/17 0000 Signed Impressions: Service Date/Time: Monday, March 20, 2017 17:30 - CONCLUSION: Normal examination. Sebastián Greer MD Assessment and Plan Assessment and Plan 61-year-old male with acute renal failure and evidence of bladder outlet obstruction with elevated PSA and family history of prostate cancer. Maintain Pollock catheter and monitor for postobstructive diuresis. Holding replacement fluids at present due to evidence of pulmonary edema on chest x-ray. CT scan ordered for later today. We'll start Flomax in the future once his creatinine starts to baseline. Once Pollock catheter has been removed and he is voiding we'll need to repeat PSA at that time. We'll follow with you. Thank you for the consult and allowing me to participate in the care of this patient. Zion Fine DO Mar 21, 2017 08:44
[2017-03-21 11:13] LABS: AUTOMATED NEUTROPHIL # 11.8 TH/MM3 (1.8-7.7); BASOPHIL # 0.1 TH/MM3 (0-0.2); BASOPHIL % 0.4 % (0.0-2.0); EOSINOPHIL # 0.6 TH/MM3 (0-0.4); EOSINOPHIL % 2.6 % (0.0-4.0); LYMPHOCYTE # 9.5 TH/MM3 (1.0-4.8); MEAN CELL VOLUME 85.8 FL (80.0-100.0); MEAN CORPUSCULAR HEMOGLOBIN 28.1 PG (27.0-34.0); MEAN CORPUSCULAR HGB CONC 32.8 % (32.0-36.0); PLATELET COUNT 176 TH/MM3 (150-450); RED BLOOD COUNT 2.36 MIL/MM3 (4.50-5.90); RED CELL DISTRIBUTION WIDTH 14.8 % (11.6-17.2); WHITE BLOOD COUNT 23.1 TH/MM3 (4.0-11.0)
[2017-03-21 11:14] LABS: RETIC % 3.3 % (0.4-3.0)
[2017-03-21 11:16] LABS: REVIEW FLAG FINAL
[2017-03-21 11:18] LABS: HEMO FLAGS AUTO DIFF
[2017-03-21 11:19] LABS: APTT (PATIENT) 37.6 SEC (24.3-30.1); INTERNATIONAL NORMALIZED RATIO 1.1 RATIO; PROTHROMBIN TIME - PATIENT 12.7 SEC (9.8-11.6)
[2017-03-21 11:22] LABS: HEMATOCRIT 20.2 % (39.0-51.0)
[2017-03-21 11:34] LABS: TRANSFERRIN IRON PROFILE 129 MG/DL (200-360)
[2017-03-21 11:37] LABS: FERRITIN 1137 NG/ML (26-388); TOTAL PROTEIN SPE 5.8 GM/DL (6.0-7.6)
[2017-03-21 11:40] LABS: BICARBONATE 13.6 MEQ/L (21.0-32.0); CALCIUM-PROTEIN CORRECTED 7.9 MG/DL (8.5-10.1); POTASSIUM 4.8 MEQ/L (3.5-5.1); TOTAL BILIRUBIN ADULT 0.5 MG/DL (0.2-1.0)
[2017-03-21] MEDS ORDERED: SODIUM CHLOR 0.9% 250 ML INJ 250 ML IV ONE (11:45)
[2017-03-21 11:58] LABS: WESTERGREN SEDIMENTATION RATE 1 mm/hr (0-20)
[2017-03-21 13:19] LABS: EOSINOPHILS 2 % (0-4); POLYS (SEG NEUTROPHILS) 26 % (16-70); WBC DIFF SAMPLE 100
[2017-03-21 13:20] LABS: SMUDGE CELLS PRESENT PRESENT
[2017-03-21 13:22] LABS: SCAN/DIFF FINAL DIFF MANUAL
--- NOTE | 2017-03-21 13:38 | RADRPT ---
EXAM DATE/TIME: 03/21/2017 13:03 [facility] COMPARISON: No previous studies available for comparison. INDICATIONS : Possible tumor ORAL CONTRAST: Prescribed oral contrast ingested. RADIATION DOSE: 9.58 CTDIvol (mGy) ; Combined studies - Abdomen/Pelvis MEDICAL HISTORY : Renal failure, acute. Hypertension. SURGICAL HISTORY : Non-responsive. ENCOUNTER: Initial ACUITY: 1 day PAIN SCALE: 0/10 LOCATION: abdomen TECHNIQUE: Volumetric scanning of the abdomen and pelvis was performed. Using automated exposure control and ad justment of the mA and/or kV according to patient size, radiation dose was kept as low as reasonably achievable to obtain optimal diagnostic quality images. DICOM format image data is available electro nically for review and comparison. FINDINGS: There are small bilateral pleural effusions. Atelectatic changes are seen in both lung base is. The liver is free of focal defects. The spleen and pancreas are unremarkable. The bowel is both col lecting systems. There is very minimal retroperitoneal adenopathy present. There is large mass in the dome of the yoly dder. Bladder is partially decompressed by Pollock. Enlarged cardiac in the left containing small bowel. Review of bone windows reveals chronic changes scattered throughout the lumbar spine and the left faiza um and abdomen representing metastatic disease. CONCLUSION: Large bladder mass with bone metastases. Small bilateral pleural effusions. Minimal retroperitoneal adenopathy. Damien Peña MD FACR on March 21, 2017 at 13:31 Board Certified Radiologist. This report was verified electronically.
--- NOTE | 2017-03-21 13:49 | RADRPT ---
EXAM DATE/TIME: 03/21/2017 13:03 [facility] COMPARISON: CHEST SINGLE AP, March 20, 2017, 17:08. INDICATIONS : Evaluate for cancer RADIATION DOSE: 9.58 CTDIvol (mGy) MEDICAL HISTORY : Renal failure, acute. Hypertension. SURGICAL HISTORY : None. ENCOUNTER: Initial ACUITY: 1 day PAIN SCALE: 0/10 LOCATION: chest TECHNIQUE: Volumetric scanning of the chest was performed. Using automated exposure control and adjustment of the mA and/or kV according to patient size, radiation dose was kept as low as reasonab ly achievable to obtain optimal diagnostic quality images. DICOM format image data is available elec tronically for review and comparison. FINDINGS: LUNGS: Patchy slightly nodular upper lobe predominant groundglass opacities. Mild to moderate fransisco trilobular emphysema. Small subcentimeter soft tissue density lesion in the left distal mainstem bron chus. Airspace consolidation adjacent to the pleural effusions at the lung bases. PLEURAE: Moderate to large bilateral pleural effusions. MEDIASTINUM: Moderate coronary calcifications. No significant pericardial effusion. The heart is otherwise unremarkable. Subcentimeter mediastinal and hilar nodes do not meet CT size criteria. AXILLAE: Within normal limits. No lymphadenopathy. MUSCULOSKELETAL: There are multiple sclerotic lesions noted in the thoracic vertebra and in the p osterior right 12th and left 11th ribs. There is also an extensive sclerotic lesion involving the lef t scapula. MISCELLANEOUS: Visualized portions of the upper abdomen demonstrate moderate to severe bilateral hydronephrosis similar to recent ultrasound exam. There is also incidental note made of 3.6 x 3.6 cm coarsely calcified left thyroid nodule. CONCLUSION: 1. Moderate to large bilateral pleural effusions with associated compressive atelectasis in the lower lobes. 2. Bilateral patchy somewhat nodular groundglass opacities with upper lobe predominance likely relate d to positive fluid balance. 3. Diffuse sclerotic metastasis to the thoracic vertebra, ribs, and left scapula. 4. Bilateral moderate to severe hydronephrosis, incompletely imaged on this exam. This is similar to yesterday's ultrasound exam. 5. 3.6 cm coarsely calcified left thyroid nodule. This can be further evaluated with thyroid ultrasou nd as indicated. Ferdinand Fisher MD on March 21, 2017 at 13:24 Board Certified Radiologist. This report was verified electronically.
--- NOTE | 2017-03-21 14:01 | PD.CONS ---
HPI Service Nephrology Consult Requested By Dr. Leal Reason for Consult ARF with bilateral hydronephrosis Primary Care Physician No Primary Care Physician History of Present Illness Patient is a 61-year-old white male who has benign prostatic enlargement, has not seen any physician for the past 5 years, he said he had flulike symptoms felt weak tired. His weight loss present and his appetite is not too good, apparently with a creatinine of 21 accompanied with increasing shortness of breath and easy fatigability and hemoglobin of 6.8, he has been seen by urologist Dr. Fine and he had a Pollock catheter placed that he has bloody urine , more than 1 L were removed, he is getting packed red blood cells, his creatinine is still elevated at 20.2, he otherwise is a stable and has had the bladder spasm off and on, he has an indwelling Pollock catheter which is bothering him. Review of Systems Constitutional: COMPLAINS OF: Fatigue Respiratory: COMPLAINS OF: Shortness of breath Cardiovascular: COMPLAINS OF: Lower Extremity Edema Gastrointestinal: COMPLAINS OF: Abdominal pain Genitourinary: COMPLAINS OF: Urinary frequency Musculoskeletal: COMPLAINS OF: Joint pain Psychiatric: COMPLAINS OF: Anxiety Past Family Social History Allergies: Coded Allergies: No Known Allergies (Verified , 03/20/17) Past Medical History Has not seen a physician for past 5 years He has heartburn and for which she was taking Patti-[place] Past Surgical History Nothing significant Reported Medications Reported Meds & Active Scripts Active No Active Prescriptions or Reported Medications Active Ordered Medications Current Medications Medications (Trade) Dose Ordered Sig/Nasreen Route Start Time Stop Time Status Last Admin (NS Flush) 2 ml UNSCH PRN IV FLUSH 03/20/17 18:15 (NS Flush) 2 ml BID IV FLUSH 03/20/17 21:00 03/21/17 08:37 (Tylenol) 650 mg Q6H PRN PO 03/20/17 18:15 ([place] 5-325 Mg) 1 tab Q4H PRN PO 03/20/17 18:15 (Morphine Inj) 2 mg Q2H PRN IV PUSH 03/20/17 18:30 (Protonix Inj) 40 mg DAILY IV 03/21/17 09:00 03/21/17 08:37 (Zofran Inj) 4 mg Q6H PRN IV 03/20/17 18:15 Miscellaneous Information 1 [id number] XX 03/20/17 18:15 03/20/17 21:46 (Chlorhexidine 2% Cloth) 3 pack Taper DAILY@04 TOP 03/21/17 04:00 03/17/18 03:59 03/21/17 03:17 (Chlorhexidine 2% Cloth) 3 pack UNSCH PRN TOP 03/20/17 18:15 (Negin-Colace) 1 tab BID PO 03/20/17 21:00 (Milk Of Magntiffanie Liq) 30 ml Q12H PRN PO 03/20/17 18:15 (Senokot) 17.2 mg Q12H PRN PO 03/20/17 18:15 (Dulcolax Supp) 10 mg DAILY PRN RECTAL 03/20/17 18:15 Lactulose 30 ml 30 ml DAILY PRN PO 03/20/17 18:15 (Maxipime Inj/NS Inj) 100 ml @ 200 mls/hr Q24H IV 03/21/17 00:00 03/21/17 00:38 Metoprolol Tartrate 25 mg 25 mg Q12HR PO 03/21/17 02:45 03/21/17 08:37 (NS 250 ml Inj) 250 ml @ 15 mls/hr ONCE ONCE IV 03/21/17 11:45 03/22/17 04:24 03/21/17 13:36 Family History He is , lives alone Social History Smoke cigarettes about half pack per day, alcohol use in the past quit 2 months ago Physical Exam Vital Signs Vital Signs Date Time Temp Pulse Resp B/P Pulse Ox O2 Delivery O2 Flow Rate FiO2 03/21/17 12:00 98.2 61 12 147/78 98 03/21/17 08:00 97.9 66 23 146/78 98 03/21/17 07:00 98 Nasal Cannula 3.00 03/21/17 07:00 66 03/21/17 04:00 98.1 79 23 173/91 97 03/21/17 04:00 98.1 79 23 173/91 97 03/21/17 03:00 98.5 77 15 151/79 99 03/21/17 00:00 98.3 80 18 160/85 95 03/21/17 00:00 98.3 80 18 160/85 95 03/20/17 23:00 80 03/20/17 22:52 98.0 84 24 174/84 96 03/20/17 21:30 98.0 82 16 173/82 96 03/20/17 21:30 96 Nasal Cannula 3.00 03/20/17 19:28 97 Nasal Cannula 2 03/20/17 19:28 78 18 177/90 97 Nasal Cannula 2 03/20/17 18:00 94 16 183/91 99 03/20/17 16:45 87 16 174/86 94 03/20/17 16:30 98 Room Air 03/20/17 16:26 97.6 89 20 190/77 94 03/20/17 16:05 91 24 190/77 98 03/20/17 16:05 91 24 98 03/20/17 15:56 97.6 109 16 177/93 93 Physical Exam GENERAL: Well-nourished, well-developed patient. SKIN: Warm and dry. HEAD: Normocephalic. EYES: No scleral icterus. No injection or drainage. Sclera looks pale NECK: Supple, trachea midline. No JVD or lymphadenopathy. CARDIOVASCULAR: Regular rate and rhythm without murmurs, gallops, or rubs. RESPIRATORY: Breath sounds diminished at bases GASTROINTESTINAL: Abdomen soft, non-tender, nondistended. EXTREMITIES: No cyanosis, 2+ edema. NEUROLOGICAL: Awake, alert, and oriented x 3. Non-focal. Laboratory Laboratory Tests Test 03/20/17 03/20/17 03/20/17 03/20/17 16:27 17:25 18:02 18:20 White Blood Count 29.3 Red Blood Count 2.37 Hemoglobin 6.8 Hematocrit 20.3 Mean Corpuscular Volume 85.5 Mean Corpuscular Hemoglobin 28.7 Mean Corpuscular Hemoglobin 33.5 Concent Red Cell Distribution Width 13.0 Platelet Count 270 Mean Platelet Volume 7.7 Neutrophils (%) (Auto) 46.3 Lymphocytes (%) (Auto) 47.1 Monocytes (%) (Auto) 3.7 Eosinophils (%) (Auto) 1.7 Basophils (%) (Auto) 1.2 Neutrophils # (Auto) 13.6 Lymphocytes # (Auto) 13.7 Monocytes # (Auto) 1.1 Eosinophils # (Auto) 0.5 Basophils # (Auto) 0.4 CBC Comment AUTO DIFF Differential Total Cells 100 Counted Neutrophils % (Manual) 59 Lymphocytes % 39 Monocytes % 2 Neutrophils # (Manual) 17.3 Differential Comment FINAL DIFF MANUAL Platelet Estimate NORMAL Platelet Morphology Comment NORMAL Rouleau PRESENT D-Dimer Quantitative (PE/DVT) 3.55 Sodium Level 130 Potassium Level 4.4 Chloride Level 92 Carbon Dioxide Level 14.0 Anion Gap 24 Blood Urea Nitrogen 189 Creatinine 21.00 Estimat Glomerular Filtration 2 Rate Random Glucose 139 Calcium Level 7.5 Total Bilirubin 0.6 Aspartate Amino Transf 15 (AST/SGOT) Alanine Aminotransferase 18 (ALT/SGPT) Alkaline Phosphatase 80 Total Creatine Kinase 348 Creatine Kinase MB 16.1 Creatine Kinase MB % 4.6 Troponin I 0.20 B-Type Natriuretic Peptide 3988 Total Protein 7.4 Albumin 3.2 Blood Type O NEGATIVE O NEGATIVE Antibody Screen NEGATIVE Crossmatch Leukocyte-Reduced Red Blood Cells Blood Bank Comment Urine Color YELLOW Urine Turbidity CLEAR Urine pH 5.5 Urine Specific [place] 1.010 Urine Protein NEG Urine Glucose (UA) NEG Urine Ketones NEG Urine Occult Blood MOD Urine Nitrite NEG Urine Bilirubin NEG Urine Leukocyte Esterase TRACE Urine RBC 4-9 Urine WBC 0-2 Urine Squamous Epithelial 0-5 Cells Urine Mucus OCC Microscopic Urinalysis Comment CULT NOT INDICATED Urine Eosinophils NONE SEEN Urine Random Creatinine 61.5 Urine Random Sodium 59 Test 03/20/17 03/20/17 03/20/17 03/21/17 18:40 18:45 22:21 01:25 Lactic Acid Level 1.1 Prothrombin Time 12.4 Prothromb Time International 1.1 Ratio Activated Partial 34.2 Thromboplast Time Fibrinogen 506 Phosphorus Level 10.0 Magnesium Level 1.7 Troponin I 0.23 0.26 Amylase Level 48 Lipase 164 Nasal Screen MRSA (PCR) MRSA NOT DETECTED White Blood Count 22.8 Red Blood Count 2.34 Hemoglobin 6.7 Hematocrit 20.3 Mean Corpuscular Volume 86.8 Mean Corpuscular Hemoglobin 28.5 Mean Corpuscular Hemoglobin 32.8 Concent Red Cell Distribution Width 15.3 Platelet Count 193 Mean Platelet Volume 8.3 Sodium Level 131 Potassium Level 4.5 Chloride Level 95 Carbon Dioxide Level 15.4 Anion Gap 21 Blood Urea Nitrogen 182 Creatinine 19.95 Estimat Glomerular Filtration 2 Rate Random Glucose 142 Calcium Level 7.3 Protein Corrected Calcium 7.7 Total Creatine Kinase 249 Creatine Kinase MB 11.7 Total Protein 6.4 Prostate Specific Antigen 82.12 Screen Test 03/21/17 03/21/17 03/21/17 04:30 10:20 11:50 Total Creatine Kinase 223 Creatine Kinase MB 10.6 Troponin I 0.25 White Blood Count 23.1 Red Blood Count 2.36 Hemoglobin 6.6 Hematocrit 20.2 Mean Corpuscular Volume 85.8 Mean Corpuscular Hemoglobin 28.1 Mean Corpuscular Hemoglobin 32.8 Concent Red Cell Distribution Width 14.8 Platelet Count 176 Mean Platelet Volume 8.4 Neutrophils (%) (Auto) 51.0 Lymphocytes (%) (Auto) 41.0 Monocytes (%) (Auto) 5.0 Eosinophils (%) (Auto) 2.6 Basophils (%) (Auto) 0.4 Neutrophils # (Auto) 11.8 Lymphocytes # (Auto) 9.5 Monocytes # (Auto) 1.1 Eosinophils # (Auto) 0.6 Basophils # (Auto) 0.1 CBC Comment AUTO DIFF Differential Total Cells 100 Counted Neutrophils % (Manual) 26 Lymphocytes % 71 Monocytes % 1 Eosinophils % 2 Neutrophils # (Manual) 6.0 Differential Comment FINAL DIFF MANUAL Smudge Cells PRESENT Erythrocyte Sedimentation Rate 1 Reticulocyte Count 3.3 Absolute Reticulocyte Count 75.8 Haptoglobin 203 Prothrombin Time 12.7 Prothromb Time International 1.1 Ratio Activated Partial 37.6 Thromboplast Time Sodium Level 132 Potassium Level 4.8 Chloride Level 96 Carbon Dioxide Level 13.6 Anion Gap 22 Blood Urea Nitrogen 182 Creatinine 20.48 Estimat Glomerular Filtration 2 Rate Random Glucose 114 Calcium Level 7.3 Protein Corrected Calcium 7.9 Iron Level 88 Total Iron Binding Capacity 181 Percent Iron Saturation 48.7 Ferritin 1137 Total Bilirubin 0.5 Aspartate Amino Transf 9 (AST/SGOT) Alanine Aminotransferase 12 (ALT/SGPT) Alkaline Phosphatase 56 Total Protein 5.9 Albumin 2.6 Blood Type O NEGATIVE O NEGATIVE Direct Antiglobulin Test NEGATIVE (Dana) Crossmatch Leukocyte-Reduced Red Blood Cells Blood Bank Comment Date/Time Procedure Status Source Growth 03/21/17 01:30 Aerobic Blood Culture Received Blood Peripheral Pending 03/21/17 01:30 Anaerobic Blood Culture Received Blood Peripheral Pending Result Diagram: 03/21/17 1020 03/21/17 1020 Imaging Last Impressions Chest X-Ray 03/20/17 1620 Signed Impressions: Service Date/Time: Monday, March 20, 2017 17:08 - CONCLUSION: 1. Mild to moderate pulmonary edema pattern with small effusions. Sebastián Greer MD Renal Ultrasound 03/20/17 0000 Signed Impressions: Service Date/Time: Monday, March 20, 2017 17:46 - CONCLUSION: 1. Moderate bilateral hydronephrosis. Distended bladder. Enlarged prostate. Sebastián Greer MD Lower Extremity Ultrasound 03/20/17 0000 Signed Impressions: Service Date/Time: Monday, March 20, 2017 17:30 - CONCLUSION: Normal examination. Sebastián Greer MD Assessment and Plan Problem List: (1) Acute renal failure Plan: Patient had obstructive uropathy with indwelling Pollock catheter, CT scan was done that we will review those results when available, I have discussed with him that he is getting hydration, he is tolerating uremia well and there is no acute decompensation I will wait for her to start the dialysis and give him hydration, packed red blood cells to see if his renal functions shows improvement Avoid nephrotoxins Avoid dye studies or gadolinium Follow BMP This was discussed with Dr. Leal (2) Uropathy, obstructive Plan: Severe followed by urology (3) Anemia Plan: PRBCs Problem Qualifiers (1) Anemia: Qualified Code: D64.9 - Anemia, unspecified type Karena Duval MD Mar 21, 2017 14:01
--- NOTE | 2017-03-21 14:22 | EKG ---
Date Performed: 03/20/2017 Time Performed: 16:21:56 PTAGE: 61 years EKG: Sinus rhythm LEFT VENTRICULAR HYPERTROPHY AND ST-T CHANGE Since previous tracing, no significant change noted ABN ORMAL ECG PREVIOUS TRACING : 08/05/2009 16.47.18 DOCTOR: Curt Alaniz Interpretating Date/Time 03/21/2017 14:20:15
[2017-03-21 14:23] LABS: MAGNESIUM 1.5 MG/DL (1.5-2.5)
[2017-03-21] MEDS: SODIUM BICARBONATE 8.4% INJ 150 MEQ in DEXTROSE 5% IN WATE 1000ML INJ 1,000 ML IV SCH ×2 (16:00)
[2017-03-21] MEDS: CALCIUM ACETATE 667 MG CAP PO SCH (18:13)
[2017-03-21 20:06] LABS: HEMATOCRIT 23.4 % (39.0-51.0)
[2017-03-22] VITALS (16 sets, daily range): BP systolic 135–162; BP diastolic 64–80; PULSE 53–73; RESP 12–22; TEMP 97.4–98.8; O2SAT 94–100
[2017-03-22] MEDS: CEFEPIME INJ 1,000 MG in SODIUM CHLORIDE 0.9% INJ 100 ML IV SCH (02:07)
[2017-03-22] MEDS: MORPHINE SULFATE 8 MG/ML INJ IV PUSH PRN ×3 (02:08→22:02)
[2017-03-22] MEDS: CHLORHEXIDINE GLUCONATE 2 % 1 PACK (2 CLOTHS) TOP SCH (04:16)
[2017-03-22 04:20] LABS: HEMATOCRIT 21.1 % (39.0-51.0); MEAN CELL VOLUME 85.5 FL (80.0-100.0); MEAN CORPUSCULAR HEMOGLOBIN 28.7 PG (27.0-34.0); MEAN CORPUSCULAR HGB CONC 33.6 % (32.0-36.0); PLATELET COUNT 160 TH/MM3 (150-450); RED BLOOD COUNT 2.47 MIL/MM3 (4.50-5.90); RED CELL DISTRIBUTION WIDTH 14.6 % (11.6-17.2); WHITE BLOOD COUNT 20.2 TH/MM3 (4.0-11.0)
[2017-03-22 04:22] LABS: HEMO FLAGS AUTO DIFF
[2017-03-22 04:41] LABS: POTASSIUM 4.6 MEQ/L (3.5-5.1)
[2017-03-22 05:34] LABS: CALCIUM-PROTEIN CORRECTED 7.9 MG/DL (8.5-10.1)
[2017-03-22] MEDS ORDERED: SODIUM CHLOR 0.9% 250 ML INJ 250 ML IV ONE (07:15)
[2017-03-22] MEDS ORDERED: FUROSEMIDE 20 MG/2 ML VIAL IV ONE (07:15)
[2017-03-22] MEDS: DOCUSATE SODIUM 50 MG/SENNA 8.6 MG TAB PO SCH ×2 (08:06→21:00)
[2017-03-22] MEDS: PANTOPRAZOLE SODIUM 40 MG VIAL IV SCH (08:06)
[2017-03-22] MEDS: CALCIUM ACETATE 667 MG CAP PO SCH ×3 (08:06→18:00)
[2017-03-22] MEDS: SODIUM CHLORIDE 0.9% FLUSH 10 ML FLUSH IV FLUSH SCH ×2 (08:07→21:00)
[2017-03-22] MEDS: METOPROLOL TARTRATE 25 MG TAB PO SCH ×2 (08:07→21:00)
[2017-03-22 08:39] LABS: BASOPHILS 1 % (0-2); EOSINOPHILS 3 % (0-4); NEUTROPHIL # MANUAL DIFF 6.9 TH/MM3 (1.8-7.7); POLYS (SEG NEUTROPHILS) 34 % (16-70); SMUDGE CELLS PRESENT PRESENT; WBC DIFF SAMPLE 100
[2017-03-22 08:41] LABS: SCAN/DIFF FINAL DIFF MANUAL
--- NOTE | 2017-03-22 09:57 | PD.ONC.PN ---
Subjective Subjective Remarks Afebrile overnight. Feeling fatigued today. Unsure about starting dialysis. Objective Data Date Time Temp Pulse Resp B/P Pulse Ox O2 Delivery O2 Flow Rate FiO2 03/22/17 08:08 96 Nasal Cannula 3.00 03/22/17 04:00 98.3 58 12 140/68 98 03/22/17 02:13 18 03/22/17 00:00 98.8 62 22 151/78 94 03/21/17 23:00 64 03/21/17 20:00 98.0 82 22 162/79 99 03/21/17 19:00 98 Nasal Cannula 3.00 03/21/17 16:00 97.8 64 17 155/77 98 03/21/17 15:00 66 03/21/17 14:40 97.4 76 22 156/76 99 03/21/17 13:30 97.2 68 14 146/76 100 03/21/17 12:00 98.2 61 12 147/78 98 03/22/17 03/22/17 03/22/17 07:00 15:00 23:00 Intake Total 387 ml Output Total 200 ml Balance 187 ml Result Diagram: 03/22/17 0340 03/22/17 0340 Laboratory Results Laboratory Tests Test 03/21/17 03/21/17 03/21/17 03/22/17 10:20 11:50 19:14 03:40 White Blood Count 23.1 TH/MM3 20.2 TH/MM3 Red Blood Count 2.36 MIL/MM3 2.47 MIL/MM3 Hemoglobin 6.6 GM/DL 8.0 GM/DL 7.1 GM/DL Hematocrit 20.2 % 23.4 % 21.1 % Mean Corpuscular Volume 85.8 FL 85.5 FL Mean Corpuscular Hemoglobin 28.1 PG 28.7 PG Mean Corpuscular Hemoglobin 32.8 % 33.6 % Concent Red Cell Distribution Width 14.8 % 14.6 % Platelet Count 176 TH/MM3 160 TH/MM3 Mean Platelet Volume 8.4 FL 8.7 FL Neutrophils (%) (Auto) 51.0 % % Lymphocytes (%) (Auto) 41.0 % % Monocytes (%) (Auto) 5.0 % % Eosinophils (%) (Auto) 2.6 % % Basophils (%) (Auto) 0.4 % % Neutrophils # (Auto) 11.8 TH/MM3 TH/MM3 Lymphocytes # (Auto) 9.5 TH/MM3 TH/MM3 Monocytes # (Auto) 1.1 TH/MM3 TH/MM3 Eosinophils # (Auto) 0.6 TH/MM3 TH/MM3 Basophils # (Auto) 0.1 TH/MM3 TH/MM3 CBC Comment AUTO DIFF AUTO DIFF Differential Total Cells 100 100 Counted Neutrophils % (Manual) 26 % 34 % Lymphocytes % 71 % 61 % Monocytes % 1 % 1 % Eosinophils % 2 % 3 % Neutrophils # (Manual) 6.0 TH/MM3 6.9 TH/MM3 Differential Comment FINAL DIFF FINAL DIFF MANUAL MANUAL Smudge Cells PRESENT PRESENT Erythrocyte Sedimentation Rate 1 mm/hr Reticulocyte Count 3.3 % Absolute Reticulocyte Count 75.8 MIL/L Haptoglobin 203 MG/DL Prothrombin Time 12.7 SEC Prothromb Time International 1.1 RATIO Ratio Activated Partial 37.6 SEC Thromboplast Time Sodium Level 132 MEQ/L 130 MEQ/L Potassium Level 4.8 MEQ/L 4.6 MEQ/L Chloride Level 96 MEQ/L 93 MEQ/L Carbon Dioxide Level 13.6 MEQ/L 15.0 MEQ/L Anion Gap 22 MEQ/L 22 MEQ/L Blood Urea Nitrogen 182 MG/DL 190 MG/DL Creatinine 20.48 MG/DL 19.98 MG/DL Estimat Glomerular Filtration 2 ML/MIN 2 ML/MIN Rate Random Glucose 114 MG/DL 127 MG/DL Uric Acid 9.0 MG/DL Calcium Level 7.3 MG/DL 7.2 MG/DL Protein Corrected Calcium 7.9 MG/DL 7.9 MG/DL Iron Level 88 MCG/DL Total Iron Binding Capacity 181 MCG/DL Percent Iron Saturation 48.7 % Ferritin 1137 NG/ML Total Bilirubin 0.5 MG/DL Aspartate Amino Transf 9 U/L (AST/SGOT) Alanine Aminotransferase 12 U/L (ALT/SGPT) Alkaline Phosphatase 56 U/L Total Protein 5.9 GM/DL 5.8 GM/DL Albumin 2.6 GM/DL Thyroid Stimulating Hormone 3.230 uIU/ML 3rd Gen Blood Type O NEGATIVE O NEGATIVE Direct Antiglobulin Test NEGATIVE (Keren) Crossmatch Leukocyte-Reduced Red Blood Cells Blood Bank Comment Basophils % 1 % Phosphorus Level 11.1 MG/DL Test 03/22/17 07:21 Blood Type O NEGATIVE Crossmatch Leukocyte-Reduced Red Blood Cells Blood Bank Comment Culture Results Microbiology Date/Time Procedure Status Source Growth 03/21/17 01:25 Aerobic Blood Culture Received Blood Peripheral Pending 03/21/17 01:25 Anaerobic Blood Culture Received Blood Peripheral Pending 03/21/17 01:30 Aerobic Blood Culture Received Blood Peripheral Pending 03/21/17 01:30 Anaerobic Blood Culture Received Blood Peripheral Pending Imaging Studies Last Impressions Chest CT 03/21/17 0000 Signed Impressions: Service Date/Time: Tuesday, March 21, 2017 13:03 - CONCLUSION: 1. Moderate to large bilateral pleural effusions with associated compressive atelectasis in the lower lobes. 2. Bilateral patchy somewhat nodular groundglass opacities with upper lobe predominance likely related to positive fluid balance. 3. Diffuse sclerotic metastasis to the thoracic vertebra, ribs, and left scapula. 4. Bilateral moderate to severe hydronephrosis, incompletely imaged on this exam. This is similar to yesterday's ultrasound exam. 5. 3.6 cm coarsely calcified left thyroid nodule. This can be further evaluated with thyroid ultrasound as indicated. Ferdinand Fisher MD Abdomen/Pelvis CT 03/21/17 0000 Signed Impressions: Service Date/Time: Tuesday, March 21, 2017 13:03 - CONCLUSION: Large bladder mass with bone metastases. Small bilateral pleural effusions. Minimal retroperitoneal adenopathy. Damien Peña MD FACR Chest X-Ray 03/20/17 1620 Signed Impressions: Service Date/Time: Monday, March 20, 2017 17:08 - CONCLUSION: 1. Mild to moderate pulmonary edema pattern with small effusions. Sebastián Greer MD Renal Ultrasound 03/20/17 0000 Signed Impressions: Service Date/Time: Monday, March 20, 2017 17:46 - CONCLUSION: 1. Moderate bilateral hydronephrosis. Distended bladder. Enlarged prostate. Sebastián Greer MD Lower Extremity Ultrasound 03/20/17 0000 Signed Impressions: Service Date/Time: Monday, March 20, 2017 17:30 - CONCLUSION: Normal examination. Sebsatián Greer MD Administered Medications Medications (Trade) Dose Ordered Sig/Nasreen Route PRN Reason Start Time Stop Time Status Last Admin Dose Admin Sodium Chloride (NS Flush) 2 ml BID IV FLUSH 03/20/17 21:00 03/22/17 08:07 Morphine Sulfate (Morphine Inj) 2 mg Q2H PRN IV PUSH PAIN 6-10 03/20/17 18:30 03/22/17 09:45 Pantoprazole Sodium (Protonix Inj) 40 mg DAILY IV 03/21/17 09:00 03/22/17 08:06 Miscellaneous Information 1 Q361D XX 03/20/17 18:15 03/20/17 21:46 Chlorhexidine Gluconate (Chlorhexidine 2% Cloth) 3 pack Taper DAILY@04 TOP 03/21/17 04:00 03/17/18 03:59 03/22/17 04:16 Senna/Docusate Sodium 1 tab 1 tab BID PO 03/20/17 21:00 03/21/17 19:55 Cefepime HCl/ Sodium Chloride (Maxipime Inj/NS Inj) 100 ml @ 200 mls/hr Q24H IV 03/21/17 00:00 03/22/17 02:07 Metoprolol Tartrate (Lopressor) 25 mg Q12HR PO 03/21/17 02:45 03/22/17 08:07 Calcium Acetate 667 mg 667 mg TID PO 03/21/17 18:00 03/22/17 08:06 Sodium Bicarbonate 150 meq/Dextrose 1,150 ml @ 42 mls/hr Q24H IV 03/21/17 16:00 03/21/17 16:00 Sodium Chloride (NS 250 ml Inj) 250 ml @ 15 mls/hr ONCE ONCE IV 03/22/17 07:15 03/22/17 23:54 03/22/17 08:07 Objective Remarks GENERAL: Middle aged male, weak appearing, supine in bed in nad. SKIN: Warm and dry. HEAD: Normocephalic. EYES: No injection or drainage. NECK: Supple, trachea midline. CARDIOVASCULAR: Regular rate and rhythm RESPIRATORY: anterior marinelli clear. on 3L O2 via NC GASTROINTESTINAL: Abdomen soft, non-tender, nondistended. EXTREMITIES: No cyanosis. +2+ edema, bilateral lower extremities. NEUROLOGICAL: awake and alert, normal speech. moving all extremities. Assessment/Plan Problem List: (1) Bladder mass Status: Acute Plan: 03/22: patient to go to OR with Dr. Fine today, will evaluate bladder mass and obtain possible biopsy. will await pathology PSA elevated CT ab/pelvis: + bladder mass with bony mets. CT chest: bilateral pleural effusions. + bony mets to thoracic vertebra, ribs, left scapula (2) Anemia Status: Acute Plan: --transfuse as needed --hemoccult negative --keren negative --no sign of hemolysis. --slightly elevated retic count, no sign of iron deficiency Assessment 61y/o male admitted with ARF, CT shows possible bladder mass and bony mets + elevated PSA. Attending Statement no new c/o Cystoscopy for bladder mass. Creatinine is still high. will follow. Problem Qualifiers (1) Anemia: Qualified Code: D64.9 - Anemia, unspecified type Raquel Stephens Mar 22, 2017 09:57 Cam Arceo MD Mar 22, 2017 22:24
--- NOTE | 2017-03-22 10:32 | RADRPT ---
EXAM DATE/TIME: 03/22/2017 09:53 [facility] COMPARISON: CHEST SINGLE AP, March 20, 2017, 17:08. INDICATIONS : Follow- up Pulmonary Edema/ Effusions. Shortness of Breath. MEDICAL HISTORY : Renal failure, acute. Hypertension SURGICAL HISTORY : None. ENCOUNTER: Subsequent ACUITY: 3 days PAIN SCORE: 0/10 LOCATION: Bilateral chest FINDINGS: Small bilateral effusions are noted with consolidation at the bases and mild interstitial prominence, decreased in prominence from the previous study. CONCLUSION: Improved aeration. Abdiel Anand MD on March 22, 2017 at 10:29 Board Certified Radiologist. This report was verified electronically.
--- NOTE | 2017-03-22 10:53 | HHI.PR ---
Subjective Patient symptoms today Pt seen and examined. U/O dropping. Large bladder mass vs clot on CT scan. Creatinine rising at 19.98 Objective Vital Signs Vital Signs Date Time Temp Pulse Resp B/P Pulse Ox O2 Delivery O2 Flow Rate FiO2 03/22/17 08:08 96 Nasal Cannula 3.00 03/22/17 04:00 98.3 58 12 140/68 98 03/22/17 02:13 18 03/22/17 00:00 98.8 62 22 151/78 94 03/21/17 23:00 64 03/21/17 20:00 98.0 82 22 162/79 99 03/21/17 19:00 98 Nasal Cannula 3.00 03/21/17 16:00 97.8 64 17 155/77 98 03/21/17 15:00 66 03/21/17 14:40 97.4 76 22 156/76 99 03/21/17 13:30 97.2 68 14 146/76 100 03/21/17 12:00 98.2 61 12 147/78 98 Intake & Output 03/22/17 03/22/17 07:00 19:00 Intake Total 939 ml Output Total 350 ml Balance 589 ml Intake Oral 360 ml IV Total 579 ml Output Urine Total 350 ml # Bowel Movements 1 Result Diagram: 03/22/17 1030 03/22/17 0340 Imaging Last 24 hours Impressions Chest X-Ray 03/22/17 0000 Signed Impressions: Service Date/Time: Wednesday, March 22, 2017 09:53 - CONCLUSION: Improved aeration. Abdiel Anand MD Objective Remarks Abd:soft, tender over bladder Ext:2+ edema Medications and IVs Current Medications Medications (Trade) Dose Ordered Sig/Nasreen Route Start Time Stop Time Status Last Admin (NS Flush) 2 ml UNSCH PRN IV FLUSH 03/20/17 18:15 (NS Flush) 2 ml BID IV FLUSH 03/20/17 21:00 03/22/17 08:07 (Tylenol) 650 mg Q6H PRN PO 03/20/17 18:15 ([place]low 5-325 Mg) 1 tab Q4H PRN PO 03/20/17 18:15 (Morphine Inj) 2 mg Q2H PRN IV PUSH 03/20/17 18:30 03/22/17 09:45 (Protonix Inj) 40 mg DAILY IV 03/21/17 09:00 03/22/17 08:06 (Zofran Inj) 4 mg Q6H PRN IV 03/20/17 18:15 Miscellaneous Information 1 Q361D XX 03/20/17 18:15 03/20/17 21:46 (Chlorhexidine 2% Cloth) 3 pack Taper DAILY@04 TOP 03/21/17 04:00 03/17/18 03:59 03/22/17 04:16 (Chlorhexidine 2% Cloth) 3 pack UNSCH PRN TOP 03/20/17 18:15 (Negin-Colace) 1 tab BID PO 03/20/17 21:00 03/21/17 19:55 (Milk Of Magnesia Liq) 30 ml Q12H PRN PO 03/20/17 18:15 (Senokot) 17.2 mg Q12H PRN PO 03/20/17 18:15 (Dulcolax Supp) 10 mg DAILY PRN RECTAL 03/20/17 18:15 Lactulose 30 ml 30 ml DAILY PRN PO 03/20/17 18:15 (Maxipime Inj/NS Inj) 100 ml @ 200 mls/hr Q24H IV 03/21/17 00:00 03/22/17 02:07 (Lopressor) 25 mg Q12HR PO 03/21/17 02:45 03/22/17 08:07 Calcium Acetate 667 mg 667 mg TID PO 03/21/17 18:00 03/22/17 08:06 Sodium Bicarbonate 150 meq/Dextrose 1,150 ml @ 42 mls/hr Q24H IV 03/21/17 16:00 03/21/17 16:00 (NS 250 ml Inj) 250 ml @ 15 mls/hr ONCE ONCE IV 03/22/17 07:15 03/22/17 23:54 03/22/17 08:07 Assessment and Plan Assessment and Plan 61-year-old male with acute renal failure and evidence of bladder outlet obstruction with elevated PSA and family history of prostate cancer. Maintain Pollock catheter and monitor for postobstructive diuresis. Holding replacement fluids at present due to evidence of pulmonary edema on chest x-ray. CT scan ordered for later today. We'll start Flomax in the future once his creatinine starts to baseline. Once Pollock catheter has been removed and he is voiding we'll need to repeat PSA at that time. We'll follow with you. Thank you for the consult and allowing me to participate in the care of this patient. 03/22 61-year-old male with acute renal failure and evidence of bladder outlet obstruction with elevated PSA and family history of prostate cancer with blastic lesions of pelvis on CT scan For cysto/clot evacuation/RPG's with possible stents and bladder bx with fulguration if necessary in OR today NPO Risks and benefits discussed with pt and daughter at bedside. Zion Fine DO Mar 22, 2017 10:52
--- NOTE | 2017-03-22 11:38 | MB ---
cc: FLOR HOLLINS M.D. DATE OF CONSULTATION 03/21/2017 REASON FOR CONSULTATION Consult requested by Dr. Leal for evaluation of weight loss and severe anemia. HISTORY OF PRESENT ILLNESS Madhu is a pleasant 61-year-old male. He is without any significant past medical history. He has not seen any physician for the last 6-7 years. The patient came to the emergency room complaining of shortness of breath especially on exertion. He is also complaining of occasional cough. He had blood tests and CBC on admission showed white count of 29.3, hemoglobin 6.8, hematocrit 20.3, platelet count is 270. The differential count showed neutrophilia, lymphocytosis, monocytosis, eosinophilia and basophilia. The patient had received blood transfusion. His chemistries are significant for creatinine of 20.48 and GFR is only 2. Habitat Management Coordinator, Dr. Duval, has been consulted. Dr. Fine, urologist, was consulted. A Pollock catheter has been placed in. The PSA has been found to be elevated at 82. The CAT scan of the chest, abdomen and pelvis shows metastatic disease to the bone , bilateral hydronephrosis and Urinary bladder mass. REVIEW OF SYSTEMS The patient states that he does not have any nausea or vomiting. He has anorexia and weight loss. He is c/o hematuria and bladder spasms. The rest of the review of systems is negative. PAST MEDICAL HISTORY None. PAST SURGICAL HISTORY None. ALLERGIES None. MEDICATIONS Prior to coming to the hospital were none. FAMILY HISTORY Noncontributory. SOCIAL HISTORY Does not smoke cigarettes, does not drink alcohol. PHYSICAL EXAMINATION GENERAL: On physical examination he is a well-developed, well-nourished white male in no apparent distress. VITAL SIGNS: Stable, afebrile. HEENT: PERRLA, EOMI. Anicteric. No oral lesions noted. NECK: Supple. LYMPHATICS: There is no cervical, supraclavicular or axillary lymphadenopathy noted. LUNGS: Clear. No wheezing, rhonchi or rales. HEART: Regular rate and rhythm. ABDOMEN: Soft, nontender. EXTREMITIES: No pedal edema. NEUROLOGY: Awake, alert, oriented x 3. SKIN: No significant lesions noted. ASSESSMENT 1. Bladder outlet obstruction causing bilateral hydronephrosis and acute renal failure which is nonoliguric. 2. Elevated PSA with enlarged prostate and multiple lesions in the bone consistent with metastatic disease. 3. Severe anemia. 4. Leukocytosis. 5. Urinary bladder mass. PLAN I have reviewed his available records and I had an extensive discussion with the patient and his daughter at the bedside. We discussed about bone marrow aspirate and biopsy to evaluate for the severe anemia. The patient, however, wants to defer this. He does not feel like he can go through the bone marrow biopsy at this time. We discussed that his PSA is high and the scan showed his prostate is enlarged which is causing retrograde bilateral hydronephrosis. We discussed hormonal treatment for prostate cancer. The patient is going to think about it. We will await Habitat Management Coordinator Dr. Duval and Urologist DR Fine further work up and input. Further recommendations based on his hospital stay. Thank you for asking my opinion. MD LEE Hughes/SKYLA /10:20 PM /11:33 AM MTDTrang
--- NOTE | 2017-03-22 11:48 | HHI.NPPN ---
Subjective History of Present Illness ARF with uremia Prostate ?? mass Review of Systems General Constitutional: Fatigue Objective Data Data 03/21/17 03/22/17 19:00 07:00 Intake Total 1060 ml 939 ml Output Total 300 ml 350 ml Balance 760 ml 589 ml Intake Oral 1060 ml 360 ml IV Total 579 ml Output Urine Total 300 ml 350 ml # Bowel Movements 1 1 Vital Signs Date Time Temp Pulse Resp B/P Pulse Ox O2 Delivery O2 Flow Rate FiO2 03/22/17 08:08 96 Nasal Cannula 3.00 03/22/17 04:00 98.3 58 12 140/68 98 03/22/17 02:13 18 03/22/17 00:00 98.8 62 22 151/78 94 03/21/17 23:00 64 03/21/17 20:00 98.0 82 22 162/79 99 03/21/17 19:00 98 Nasal Cannula 3.00 03/21/17 16:00 97.8 64 17 155/77 98 03/21/17 15:00 66 03/21/17 14:40 97.4 76 22 156/76 99 03/21/17 13:30 97.2 68 14 146/76 100 03/21/17 12:00 98.2 61 12 147/78 98 -: 03/22/17 1030 03/22/17 0340 Physical Exam General Appearance: Well Developed, Well Nourished Pulmonary Resp Exam: Clear Bilaterally, Breath Sounds Equal Cardiology CV Exam: Regular, Normal Sinus Rhythm Gastrointestinal/Abdomen GI Exam: Soft, Non-Tender, Bowel Sounds Present Extremeties Extremities Exam: Moderate Edema Assessment/Plan Problem List: (1) Acute renal failure Plan: Patient had obstructive uropathy with indwelling Pollock catheter, plan is to OR D/W Dr. Fine who is getting stents in but he will need dialysis afterwards as no improvement in [facility] Dr. Leal (2) Uropathy, obstructive Plan: Severe followed by urology (3) Anemia Plan: PRBCs Problem Qualifiers (1) Anemia: Qualified Code: D64.9 - Anemia, unspecified type Karena Duval MD Mar 22, 2017 11:48
[2017-03-22] MEDS ORDERED: SODIUM CHLOR 0.9% 1000 ML INJ 1,000 ML IV PRN ×2 (11:58)
[2017-03-22] MEDS ORDERED: GELATIN 12 MM/7 MM FOAM TOP PRN (12:00)
[2017-03-22] MEDS ORDERED: ONDANSETRON HCL 4 MG/2 ML VIAL IV PRN (12:00)
[2017-03-22] MEDS ORDERED: ALBUMIN HUMAN 25% 25 GM/100 ML BAGP IV PRN (12:00)
[2017-03-22] MEDS ORDERED: ePHEDrine/NS 25 MG/5 ML SYR IV ONE (12:00)
[2017-03-22] MEDS ORDERED: NITROGLYCERIN 0.4 MG SL 25 TABS/BTL SL PRN (12:00)
[2017-03-22] MEDS ORDERED: diphenhydrAMINE HCL 25 MG CAP PO PRN (12:00)
[2017-03-22] MEDS ORDERED: MANNITOL 12.5 GM/50 ML VIAL IV PRN (12:00)
[2017-03-22] MEDS ORDERED: HEPARIN SODIUM - IV 10,000 UNITS/10 ML VIAL IVF PRN (12:00)
[2017-03-22] MEDS ORDERED: SODIUM CHLORIDE 0.9% FLUSH 10 ML FLUSH IV FLUSH PRN (12:00)
[2017-03-22] MEDS ORDERED: ACETAMINOPHEN 325 MG TAB PO PRN (12:00)
--- NOTE | 2017-03-22 13:26 | HHI.CCPN ---
Subjective Remarks/Hospital Course 03/21: 61 yo WM with PMH of hypertension (not on medical therapy), daily alcohol use, not followed by primary care physician who presenteds to [facility] emergency department [place] with a chief complaint of shortness of breath. He states that for about the last week he has had cough, orthopnea, shortness of breath. Over the last 3 days he has had pedal edema. He denies chest pain but stated that a week ago he had tightness in his chest while in bed. He denies any exertional chest pain or chest tightness. + dysnea on exertion. He states that he has not been feeling well for 3-4 months after he had an episode of sore throat, sinus congestion, myalgias, low-grade fever. He has had poor appetite for the last couple of months and states that he has lost 8-12 pounds over the last 2 months. He attributes his weight loss to discontinuation of beer 2 months ago. Upon presentation to the ED he was noted to be in renal failure with BUN 189 and Creatinine 21. BNP is 3988. Troponin 0.2. Pollock was placed and he had 1 L urine output immediately. He had hematuria after difficult catheter placement but denies hematuria at home. He does indicate difficulty with voiding completely and with "weak stream". Denies dysuria or flank pain. He is anemic with Hgb 6.8. He has had diarrhea for the last month but denies melena, BRBPR. He has never had an EGD or colonoscopy. He has been taking an Alkaseltzer Cold combination drug daily for 1 week but he is uncertain if it contains NSAIDS. 03/22: Awake and alert this morning. Continues to have hematuria. CT chest abdomen pelvis done yesterday revealed bilateral effusions, bladder mass, bone metastases. Urology taking patient over to OR for cystoscopy for further evaluation. Nephrology planning hemodialysis after Vas-Cath placement today. Objective Vital Signs Date Time Temp Pulse Resp B/P Pulse Ox O2 Delivery O2 Flow Rate FiO2 03/22/17 12:27 97.5 73 18 162/80 94 03/22/17 11:00 Nasal Cannula 4.00 Intake and Output 03/21/17 03/21/17 03/22/17 08:00 16:00 00:00 Intake Total 599 ml 1060 ml 552 ml Output Total 735 ml 300 ml 150 ml Balance -136 ml 760 ml 402 ml Result Diagram: 03/22/17 1030 03/22/17 0340 Imaging Last Impressions Chest X-Ray 03/22/17 0000 Signed Impressions: Service Date/Time: Wednesday, March 22, 2017 09:53 - CONCLUSION: Improved aeration. Abdiel Anand MD Chest CT 03/21/17 0000 Signed Impressions: Service Date/Time: Tuesday, March 21, 2017 13:03 - CONCLUSION: 1. Moderate to large bilateral pleural effusions with associated compressive atelectasis in the lower lobes. 2. Bilateral patchy somewhat nodular groundglass opacities with upper lobe predominance likely related to positive fluid balance. 3. Diffuse sclerotic metastasis to the thoracic vertebra, ribs, and left scapula. 4. Bilateral moderate to severe hydronephrosis, incompletely imaged on this exam. This is similar to yesterday's ultrasound exam. 5. 3.6 cm coarsely calcified left thyroid nodule. This can be further evaluated with thyroid ultrasound as indicated. Ferdinand Fisher MD Abdomen/Pelvis CT 03/21/17 0000 Signed Impressions: Service Date/Time: Tuesday, March 21, 2017 13:03 - CONCLUSION: Large bladder mass with bone metastases. Small bilateral pleural effusions. Minimal retroperitoneal adenopathy. Damien Peña MD FACR Renal Ultrasound 03/20/17 0000 Signed Impressions: Service Date/Time: Monday, March 20, 2017 17:46 - CONCLUSION: 1. Moderate bilateral hydronephrosis. Distended bladder. Enlarged prostate. Sebastián Greer MD Lower Extremity Ultrasound 03/20/17 Signed Impressions: Service Date/Time: Monday, March 20, 2017 17:30 - CONCLUSION: Normal examination. Sebastián Greer MD Objective Remarks GENERAL: Ill appearing thin male with pallor. SKIN: Warm and dry. HEAD: Atraumatic. Normocephalic. EYES: Pupils equal and round. No scleral icterus. No injection or drainage. ENT: Mucous membranes pink and moist. NECK: Trachea midline. No JVD appreciated. CARDIOVASCULAR: Regular rate and rhythm. No murmurs rubs or gallops. RESPIRATORY: No accessory muscle use. Clear to auscultation. Breath sounds equal bilaterally. On NC GASTROINTESTINAL: Abdomen soft, non-tender, nondistended. Reducible R inguinal hernia. Bowel sounds present. MUSCULOSKELETAL: Extremities without clubbing, cyanosis. 2+ pedal edema going up about 1/3 of lower leg bilaterally. NEUROLOGICAL: Awake and alert. No obvious cranial nerve deficits. Motor grossly within normal limits. Normal speech. Urinary Catheter: Yes Assessment to: Continue A/P Assessment and Plan NEURO: Lortab as needed for pain. RESP: Nasal cannula wean as tolerated CV: Hypertension Pulmonary edema F/u 2-D echo, serial cardiac markers. Hold ASA /anticoagulants at this time as no symptoms of ACS and patient has symptomatic anemia. Metoprolol 25 mg by mouth every 12 hours. Not a candidate for ETHEL inhibitor due to acute kidney injury. GI: Reducible right inguinal hernia Nothing by mouth for cystoscopy. Renal diet following cystoscopy. FEN/RENAL: Acute kidney injury Urinary obstruction Urinary bladder mass Continues to hematuria. Urology planning cystoscopy for further evaluation of bladder mass and hydronephrosis. Nephrology plans to initiate hemodialysis today after Vas-Cath placement. Strict intake output, monitor and replete elect lites, follow BUN and creatinine. ID: Leukocytosis Covered empirically with cefepime for possibility of sepsis given his leukocytosis, possible prostatitis. Follow-up blood and urine culture. HEME: Anemia Leukocytosis - lymphocytosis. Anemia with Hgb 6.8. Transfused 3 units of PRBCs on 03/21 and 1 unit PRBCs ordered on hemoglobin 7.1 and ongoing hematuria. Patient does not report any GI bleeding. Hemoccult was negative in the ED. no evidence of iron deficiency or hemolysis. Suspect anemia secondary to hematuria and possible bone metastases. D-dimer was elevated probably secondary to malignancy. Bilateral lower extremity ultrasounds are negative. Hematology consulted and evaluating patient for further anemia workup as well as for metastatic disease. ENDO: Euglycemic PROPH: Protonix 40 g IV daily for stress ulcer prophylaxis. SCDs for DVT prophylaxis. Hold on pharmacologic DVT prophylaxis due to severe anemia. ACCESS: PIV providing adequate access at this time. Ok Leal MD Mar 22, 2017 13:26
--- NOTE | 2017-03-22 13:28 | PD.OP ---
Operative Report Date of Surgery: Mar 22, 2017 Preoperative Diagnosis: Gross hematuria, clot retention, acute renal failure Postoperative Diagnosis: Same Procedure: Cystoscopy, clot evacuation with fulguration of bleeding, bilateral retrograde study, bilateral double-J stent insertion, left ureteroscopy with advancement of left ureteral stent. Anesthesia: GETA Surgeon: Zion Fine [employer]vp Marketing(s): Karoline Resident Surgeon: None Operation and Findings: 61-year-old male presented with acute renal failure with a creatinine of 19.[address] scan of the abdomen and pelvis showed a large mass versus clot within the bladder with bilateral hydroureteronephrosis. Hemoglobin was 6.8 on admission. He had been transfused 1 unit of packed red blood cells. Decision is made to bring the patient to the operating room after long discussion with he and his daughter at the bedside. Risk and benefits were discussed and are willing to proceed. The patient was brought to the operating room and identified myself as Madhu Ross. He was placed in the dorsal lithotomy position, prepped and draped in usual sterile fashion and received general endotracheal tube anesthesia. Initially, 22 Trinidadian scope was inserted in the bladder and visualization was obstructed due to what appeared to be a large clot. The 24 Trinidadian resectoscope sheath was then placed into the bladder and irrigated copiously with the elic evacuator. This was done multiple times until all the clot was retrieved. A large amount of clot was evacuated. There is no obvious area of direct bleeding other than from the prosthetic urethra. This area was fulgurated with the rollerball. Decision was then made to perform bilateral retrograde studies. A 5 Trinidadian open catheter was inserted into the left ureteral orifice and retrograde study was performed. Hydroureteronephrosis was noted without any obvious area of obstruction. This was again repeated on the right side with similar findings. Both ureters were noted to be very tortuous. It was difficult to get the wire all the way up the ureter on both sides. Decision was made to leave bilateral ureteral stents. A 6 Trinidadian 24 cm left and right double-J stent's were placed without difficulty. The left stent retracted up the ureter and rigid ureteroscopy was performed with a nitinol basket used to pull the stent down in the correct position in the bladder. The bladder was then evacuated and check for any other areas of bleeding. 22 Trinidadian three-way Pollock catheter was inserted into the bladder with 20 cc in the balloon and he was started on continuous bladder irrigation. He will be transferred back to the unit intubated and Amicar CBI will be started. He tolerated the procedure well. Zion Fine DO Mar 22, 2017 13:28
[2017-03-22] MEDS: AMINOCAPROIC ACID INJ 3,000 MG in SODIUM CHLORIDE 0.9% IRR BAG 3,000 ML IRRIGATION SCH (13:30)
[2017-03-22] MEDS ORDERED: MIDAZOLAM HCL 5 MG/ML VIAL (1 ML) ONE (13:40)
[2017-03-22] MEDS ORDERED: MIDAZOLAM HCL 2 MG/2 ML VIAL ONE (13:42)
[2017-03-22] MEDS ORDERED: PROPOFOL 1000 MG/100 ML INJ 100 ML ONE (13:46)
[2017-03-22] MEDS ORDERED: MIDAZOLAM HCL 5 MG/ML VIAL (1 ML) IV ONE (13:48)
--- NOTE | 2017-03-22 14:47 | PD.PROCEDR ---
Procedure Note Procedure Preop diagnosis: Acute on chronic renal failure, metabolic acidosis, severe anemia, hematuria, enlarged prostate, metastatic bone disease Postop diagnosis: Same Informed consent: Obtained from patient and documented on chart Anesthesia: 1% lidocaine for local infiltration anesthesia Procedure: Dialysis catheter placement Site: Right internal jugular vein Ultrasound guidance : Dynamic ultrasound used. After sterile prepping and draping using 1% lidocaine for local infiltration anesthesia, right internal jugular vein was visualized using an ultrasound was finder and under direct visualization was cannulated using an introducer needle with dark nonpulsatile blood return. A Guidewire was passed through the introducer needle without any resistance and the needle was then removed. After making a skin neck and dilation of tract, a 20 cm dual lumen dialysis catheter was passed over the guidewire by modified seldinger's technique into the right internal jugular vein up to the 19 cm anay and the guidewire was then removed. Good blood return obtained through both ports which were then flushed with saline and subsequently hep-locked. After suturing the catheter in place, a Bio- occlusive dressing with biopatch was applied to the site. Post procedure chest x -ray was ordered and reviewed with good placement of right IJ dialysis catheter with tip overlying SVC, no pneumothorax on postprocedure film. Patient tolerated the procedure well with no immediate complications noted. Ok Leal MD Mar 22, 2017 14:47
--- NOTE | 2017-03-22 15:51 | RADRPT ---
EXAM DATE/TIME: 03/22/2017 14:43 [facility] COMPARISON: CHEST SINGLE AP, March 22, 2017, 9:53. INDICATIONS : Vascath placement. MEDICAL HISTORY : Renal failure, acute. Hypertension SURGICAL HISTORY : None. ENCOUNTER: Subsequent ACUITY: 3 days PAIN SCORE: Non-responsive. LOCATION: Bilateral chest FINDINGS: Right Vas-Cath tip in right atrium. No pneumothorax. Endotracheal tube in satisfactory position. Mild edema pattern with small bilateral effusions and basilar lung consolidation. Cardiomegaly. CONCLUSION: 1. Vas-Cath tip in right atrium without pneumothorax. Sebastián Greer MD on March 22, 2017 at 15:49 Board Certified Radiologist. This report was verified electronically.
[2017-03-22] MEDS: SODIUM CHLOR 0.9% 1000 ML INJ 1,000 ML IV PRN (15:52)
[2017-03-22] MEDS: GENTAMICIN SULFATE (DIALYSIS USE ONLY) 20 MG/2 ML VIAL IV PRN (15:53)
[2017-03-22] MEDS: EPOETIN ALFA 10,000 UNITS/ML VIAL IV PRN (15:53)
[2017-03-22] MEDS: HEPARIN SODIUM - IV 10,000 UNITS/10 ML VIAL PRN (15:53)
[2017-03-22] MEDS ORDERED: PROPOFOL 1000 MG/100 ML IV SCH (16:00)
--- NOTE | 2017-03-22 16:26 | RADRPT ---
EXAM DATE/TIME: 03/22/2017 16:05 [facility] COMPARISON: CT THORAX W/O CONTRAST, March 21, 2017, 13:03. CHEST SINGLE AP, March 22, 2017, 14:43. INDICATIONS : Status post vascath placement. MEDICAL HISTORY : Renal failure, acute. Hypertension. SURGICAL HISTORY : None. ENCOUNTER: Initial ACUITY: 1 day PAIN SCORE: Non-responsive. LOCATION: chest FINDINGS: There is a right internal jugular central line in place with the tip overlying the right atrium. The heart size is normal. The lungs demonstrate diffuse interstitial markings. There is enlargement of th e hilar regions bilaterally. There is silhouetting of the hemidiaphragms and hazy density seen at the bases bilaterally. CONCLUSION: 1. Diffuse increased interstitial markings likely representing pulmonary edema. There is prominence o f the central pulmonary vessels. 2. Hazy density bases with silhouetting hemidiaphragms from superimposed areas of consolidation/atele ctasis and effusions. Art Olivera MD on March 22, 2017 at 16:21 Board Certified Radiologist. This report was verified electronically.
[2017-03-22] MEDS ORDERED: DESMOPRESSIN INJ 20 MCG in SODIUM CHLORIDE 0.9% INJ 50 ML IV ONE (16:45)
[2017-03-22] MEDS: SODIUM BICARBONATE 8.4% INJ 150 MEQ in DEXTROSE 5% IN WATE 1000ML INJ 1,000 ML IV SCH ×2 (17:42)
[2017-03-22 20:02] LABS: HEMATOCRIT 21.3 % (39.0-51.0); MEAN CELL VOLUME 84.4 FL (80.0-100.0); MEAN CORPUSCULAR HEMOGLOBIN 29.1 PG (27.0-34.0); MEAN CORPUSCULAR HGB CONC 34.5 % (32.0-36.0); PLATELET COUNT 145 TH/MM3 (150-450); RED BLOOD COUNT 2.53 MIL/MM3 (4.50-5.90); RED CELL DISTRIBUTION WIDTH 14.4 % (11.6-17.2); WHITE BLOOD COUNT 18.1 TH/MM3 (4.0-11.0)
[2017-03-22 20:04] LABS: REVIEW FLAG FINAL
[2017-03-22 20:38] LABS: ALBUMIN SPE 3.34 GM/DL (3.50-5.00); ALPHA 1 GLOBULIN 0.37 GM/DL (0.11-0.29); ALPHA 2 GLOBULIN 0.68 GM/DL (0.22-1.00); BETA GLOBULINS (SPE) 0.55 GM/DL (0.53-1.03)
[2017-03-22] MEDS: ONDANSETRON HCL 4 MG/2 ML VIAL IV PRN (22:02)
[2017-03-23] VITALS (15 sets, daily range): BP systolic 135–214; BP diastolic 65–117; PULSE 63–119; RESP 11–26; TEMP 97.4–98.8; O2SAT 86–100
[2017-03-23] MEDS: CEFEPIME INJ 1,000 MG in SODIUM CHLORIDE 0.9% INJ 100 ML IV SCH (00:15)
[2017-03-23] MEDS: MORPHINE SULFATE 8 MG/ML INJ IV PUSH PRN ×2 (01:07→15:43)
[2017-03-23] MEDS: CHLORHEXIDINE GLUCONATE 2 % 1 PACK (2 CLOTHS) TOP SCH (04:14)
[2017-03-23 05:04] LABS: BASOPHIL # 0.1 TH/MM3 (0-0.2); BASOPHIL % 0.3 % (0.0-2.0); EOSINOPHIL # 1.3 TH/MM3 (0-0.4); EOSINOPHIL % 7.3 % (0.0-4.0); HEMATOCRIT 24.1 % (39.0-51.0); LYMPH % 28.7 % (9.0-44.0); MEAN CELL VOLUME 83.9 FL (80.0-100.0); MEAN CORPUSCULAR HEMOGLOBIN 29.3 PG (27.0-34.0); MONO % 6.5 % (0.0-8.0); NEUT % 57.2 % (16.0-70.0); PLATELET COUNT 126 TH/MM3 (150-450); RED BLOOD COUNT 2.87 MIL/MM3 (4.50-5.90); RED CELL DISTRIBUTION WIDTH 14.5 % (11.6-17.2); WHITE BLOOD COUNT 17.5 TH/MM3 (4.0-11.0)
[2017-03-23 05:06] LABS: HEMO FLAGS AUTO DIFF
[2017-03-23 05:42] LABS: BICARBONATE 21.9 MEQ/L (21.0-32.0); CALCIUM-PROTEIN CORRECTED 8.2 MG/DL (8.5-10.1); TOTAL BILIRUBIN ADULT 0.5 MG/DL (0.2-1.0)
[2017-03-23 06:48] LABS: PLATELET ESTIMATE SMEAR LOW (NORMAL); PLATELET MORPHOLOGY NORMAL (NORMAL); SCAN/DIFF AUTO DIFF CONFIRMED; SMUDGE CELLS PRESENT PRESENT
[2017-03-23] MEDS: HEPARIN SODIUM - IV 10,000 UNITS/10 ML VIAL PRN (08:47)
[2017-03-23] MEDS: SODIUM CHLOR 0.9% 1000 ML INJ 1,000 ML IV PRN (08:47)
[2017-03-23] MEDS: GENTAMICIN SULFATE (DIALYSIS USE ONLY) 20 MG/2 ML VIAL IV PRN (08:47)
[2017-03-23] MEDS: CALCIUM ACETATE 667 MG CAP PO SCH ×3 (09:00→17:54)
[2017-03-23] MEDS: METOPROLOL TARTRATE 25 MG TAB PO SCH ×2 (09:00→21:00)
[2017-03-23] MEDS: SODIUM CHLORIDE 0.9% FLUSH 10 ML FLUSH IV FLUSH SCH ×2 (09:00→21:00)
--- NOTE | 2017-03-23 10:44 | HHI.PR ---
Subjective Patient symptoms today Pt seen and examined. "Feeling better today" per his report. Currently on dialysis. Objective Vital Signs Vital Signs Date Time Temp Pulse Resp B/P Pulse Ox O2 Delivery O2 Flow Rate FiO2 03/23/17 10:00 70 03/23/17 08:00 98.2 74 16 145/67 96 03/23/17 08:00 75 03/23/17 07:28 94 Nasal Cannula 1.00 03/23/17 07:00 96 Nasal Cannula 1.00 03/23/17 06:00 70 03/23/17 04:00 72 03/23/17 04:00 98.0 76 21 137/66 97 03/23/17 02:00 68 03/23/17 01:00 97.5 76 16 135/65 97 03/23/17 00:00 97.5 65 14 139/70 96 03/23/17 00:00 63 03/22/17 23:00 64 03/22/17 22:40 97.4 63 14 135/64 100 03/22/17 22:25 97.4 65 16 137/67 99 03/22/17 20:36 97.4 65 12 158/74 99 03/22/17 19:25 98 Nasal Cannula 3.00 03/22/17 19:00 99 Nasal Cannula 4.00 03/22/17 16:00 97.6 58 19 138/65 97 03/22/17 15:25 99 Nasal Cannula 4 03/22/17 15:25 40 03/22/17 15:00 53 03/22/17 14:45 40 03/22/17 14:00 66 03/22/17 13:40 100 40 03/22/17 12:27 97.5 73 18 162/80 94 03/22/17 11:00 94 Nasal Cannula 4.00 Intake & Output 03/23/17 03/23/17 07:00 19:00 Intake Total 1584 ml Output Total 4085 ml Balance -2501 ml IV Total 872 ml Packed Cells 500 ml Other 212 ml Output Urine Total 4085 ml Result Diagram: 03/23/17 0424 03/23/174 Objective Remarks Abd:soft, tender over bladder Ext:2+ edema 03/23 Abd: soft,nt,nd Pollock: blood tinged on Amicar CBI Medications and IVs Current Medications Medications (Trade) Dose Ordered Sig/Nasreen Route Start Time Stop Time Status Last Admin (NS Flush) 2 ml UNSCH PRN IV FLUSH 03/20/17 18:15 (NS Flush) 2 ml BID IV FLUSH 03/20/17 21:00 03/22/17 08:07 (Tylenol) 650 mg Q6H PRN PO 03/20/17 18:15 ([place]en 5-325 Mg) 1 tab Q4H PRN PO 03/20/17 18:15 (Morphine Inj) 2 mg Q2H PRN IV PUSH 03/20/17 18:30 03/23/17 01:07 (Protonix Inj) 40 mg DAILY IV 03/21/17 09:00 03/22/17 08:06 (Zofran Inj) 4 mg Q6H PRN IV 03/20/17 18:15 03/22/17 22:02 Miscellaneous Information 1 Q361D XX 03/20/17 18:15 03/20/17 21:46 (Chlorhexidine 2% Cloth) 3 pack Taper DAILY@04 TOP 03/21/17 04:00 03/17/18 03:59 03/23/17 04:14 (Chlorhexidine 2% Cloth) 3 pack UNSCH PRN TOP 03/20/17 18:15 (Negin-Colace) 1 tab BID PO 03/20/17 21:00 03/21/17 19:55 (Milk Of Magnesia Liq) 30 ml Q12H PRN PO 03/20/17 18:15 (Senokot) 17.2 mg Q12H PRN PO 03/20/17 18:15 (Dulcolax Supp) 10 mg DAILY PRN RECTAL 03/20/17 18:15 Lactulose 30 ml 30 ml DAILY PRN PO 03/20/17 18:15 (Maxipime Inj/NS Inj) 100 ml @ 200 mls/hr Q24H IV 03/21/17 00:00 03/23/17 00:15 (Lopressor) 25 mg Q12HR PO 03/21/17 02:45 03/22/17 08:07 Calcium Acetate 667 mg 667 mg TID PO 03/21/17 18:00 03/22/17 08:06 Sodium Bicarbonate 150 meq/Dextrose 1,150 ml @ 42 mls/hr Q24H IV 03/21/17 16:00 03/22/17 17:42 (NS 1000 ml Inj) 1,000 ml @ 0 mls/hr Q0M PRN IV 03/22/17 11:58 03/23/17 08:47 Heparin Sodium (Porcine) 8000 units 8,000 units UNSCH PRN IVF 03/22/17 12:00 Sodium Chloride 1,000 ml @ 200 mls/hr Q5H PRN IV 03/22/17 11:58 (NS 1000 ml Inj) 1,000 ml @ 0 mls/hr Q0M PRN IV 03/22/17 11:58 (Mannitol Inj) 12.5 gm UNSCH PRN IV 03/22/17 12:00 (Albumin 25% Inj) 25 gm UNSCH PRN IV 03/22/17 12:00 (NS Flush) 5 ml UNSCH PRN IV FLUSH 03/22/17 12:00 (Heparin Inj) UNSCH PRN .XX 03/22/17 12:00 03/23/17 08:47 (Gentamicin (Dialysis) Inj) 20 mg UNSCH PRN IV 03/22/17 12:00 03/23/17 08:47 (Zofran Inj) 4 mg UNSCH PRN IV 03/22/17 12:00 (Tylenol) 650 mg UNSCH PRN PO 03/22/17 12:00 (Benadryl) 25 mg UNSCH PRN PO 03/22/17 12:00 (Nitrostat Sl) 0.4 mg UNSCH PRN SL 03/22/17 12:00 (Catapres) 0.1 mg UNSCH PRN PO 03/22/17 12:00 (Epogen Inj) 10,000 units UNSCH PRN IV 03/22/17 12:00 03/22/17 15:53 Gelatin 1 foam 1 foam UNSCH PRN TOP 03/22/17 12:00 Aminocaproic Acid 3000 mg/Sodium Chloride 3,012 ml @ 125.5 mls/ hr Q24H IRRIGATION 03/22/17 13:30 03/22/17 13:30 (Diprivan 1000 Mg/100ml Inj) 100 ml @ 0 mls/hr TITRATE IV 03/22/17 16:00 (Vitamin D3) 5,000 units DAILY PO 03/23/17 09:00 Assessment and Plan Assessment and Plan 61-year-old male with acute renal failure and evidence of bladder outlet obstruction with elevated PSA and family history of prostate cancer. Maintain Pollock catheter and monitor for postobstructive diuresis. Holding replacement fluids at present due to evidence of pulmonary edema on chest x-ray. CT scan ordered for later today. We'll start Flomax in the future once his creatinine starts to baseline. Once Pollock catheter has been removed and he is voiding we'll need to repeat PSA at that time. We'll follow with you. Thank you for the consult and allowing me to participate in the care of this patient. 03/22 61-year-old male with acute renal failure and evidence of bladder outlet obstruction with elevated PSA and family history of prostate cancer with blastic lesions of pelvis on CT scan For cysto/clot evacuation/RPG's with possible stents and bladder bx with fulguration if necessary in OR today NPO Risks and benefits discussed with pt and daughter at bedside. 03/23 61-year-old male with acute renal failure and evidence of bladder outlet obstruction with elevated PSA and family history of prostate cancer with blastic lesions of pelvis on CT scan s/p cystoscopy with clot evacuation and b/ l JJ stent insertion Continue Amicar CBI Irrigate prn Will need PNBx in the future after ARF has resolved and overall condition is improved. Maybe done as outpt. Zion Fine DO Mar 23, 2017 10:44
--- NOTE | 2017-03-23 10:50 | HHI.NPPN ---
Subjective History of Present Illness ARF with uremia bladder clot evacuated Review of Systems General Constitutional: Fatigue Objective Data Data 03/22/17 03/23/17 19:00 07:00 Intake Total 1050 ml 1584 ml Output Total 6090 ml 4085 ml Balance -5040 ml -2501 ml IV Total 800 ml 872 ml Packed Cells 250 ml 500 ml Other 212 ml Output Urine Total 5090 ml 4085 ml Hemodialysis 1000 ml # Bowel Movements 0 Vital Signs Date Time Temp Pulse Resp B/P Pulse Ox O2 Delivery O2 Flow Rate FiO2 03/23/17 10:00 70 03/23/17 08:00 98.2 74 16 145/67 96 03/23/17 08:00 75 03/23/17 07:28 94 Nasal Cannula 1.00 03/23/17 07:00 96 Nasal Cannula 1.00 03/23/17 06:00 70 03/23/17 04:00 72 03/23/17 04:00 98.0 76 21 137/66 97 03/23/17 02:00 68 03/23/17 01:00 97.5 76 16 135/65 97 03/23/17 00:00 97.5 65 14 139/70 96 03/23/17 00:00 63 03/22/17 23:00 64 03/22/17 22:40 97.4 63 14 135/64 100 03/22/17 22:25 97.4 65 16 137/67 99 03/22/17 20:36 97.4 65 12 158/74 99 03/22/17 19:25 98 Nasal Cannula 3.00 03/22/17 19:00 99 Nasal Cannula 4.00 03/22/17 16:00 97.6 58 19 138/65 97 03/22/17 15:25 99 Nasal Cannula 4 03/22/17 15:25 40 03/22/17 15:00 53 03/22/17 14:45 40 03/22/17 14:00 66 03/22/17 13:40 100 40 03/22/17 12:27 97.5 73 18 162/80 94 03/22/17 11:00 94 Nasal Cannula 4.00 -: 03/23/17 0424 03/23/17 0424 Physical Exam General Appearance: Well Developed, Well Nourished Pulmonary Resp Exam: Clear Bilaterally, Breath Sounds Equal Cardiology CV Exam: Regular, Normal Sinus Rhythm Gastrointestinal/Abdomen GI Exam: Soft, Non-Tender, Bowel Sounds Present Extremeties Extremities Exam: Moderate Edema Assessment/Plan Problem List: (1) Acute renal failure Plan: Patient had obstructive uropathy with indwelling Pollock catheter, he had dialysis yesterday seen again on 2nd treatment UF 1 to 2 L 3 k bath sec HPTH Low Vit D d/w Dr. Leal started Vitamin D 5000 units (2) Uropathy, obstructive Plan: Severe followed by urology (3) Anemia Plan: on epogen Problem Qualifiers (1) Anemia: Qualified Code: D64.9 - Anemia, unspecified type Karena Duval MD Mar 23, 2017 10:50
--- NOTE | 2017-03-23 10:55 | HHI.CCPN ---
Subjective Remarks/Hospital Course 03/21: 61 yo WM with PMH of hypertension (not on medical therapy), daily alcohol use, not followed by primary care physician who presenteds to [facility] emergency department [place] with a chief complaint of shortness of breath. He states that for about the last week he has had cough, orthopnea, shortness of breath. Over the last 3 days he has had pedal edema. He denies chest pain but stated that a week ago he had tightness in his chest while in bed. He denies any exertional chest pain or chest tightness. + dysnea on exertion. He states that he has not been feeling well for 3-4 months after he had an episode of sore throat, sinus congestion, myalgias, low-grade fever. He has had poor appetite for the last couple of months and states that he has lost 8-12 pounds over the last 2 months. He attributes his weight loss to discontinuation of beer 2 months ago. Upon presentation to the ED he was noted to be in renal failure with BUN 189 and Creatinine 21. BNP is 3988. Troponin 0.2. Pollock was placed and he had 1 L urine output immediately. He had hematuria after difficult catheter placement but denies hematuria at home. He does indicate difficulty with voiding completely and with "weak stream". Denies dysuria or flank pain. He is anemic with Hgb 6.8. He has had diarrhea for the last month but denies melena, BRBPR. He has never had an EGD or colonoscopy. He has been taking an Alkaseltzer Cold combination drug daily for 1 week but he is uncertain if it contains NSAIDS. 03/22: Awake and alert this morning. Continues to have hematuria. CT chest abdomen pelvis done yesterday revealed bilateral effusions, bladder mass, bone metastases. Urology taking patient over to OR for cystoscopy for further evaluation. Nephrology planning hemodialysis after Vas-Cath placement today. 03/23: Underwent cystoscopy and bilateral ureteral stents yesterday. Undergoing CVI for hematuria. Found to have large clot in urinary bladder which was evacuated by Dr. Fine. Started on hemodialysis yesterday. This morning he is awake and alert following commands appropriately. Denies any shortness of breath or chest pain. Denies any abdominal discomfort. Objective Vital Signs Date Time Temp Pulse Resp B/P Pulse Ox O2 Delivery O2 Flow Rate FiO2 03/23/17 10:00 70 03/23/17 08:00 98.2 16 145/67 96 03/23/17 07:28 Nasal Cannula 1.00 03/22/17 15:25 40 Intake and Output 03/22/17 03/22/17 03/23/17 08:00 16:00 00:00 Intake Total 387 ml 1050 ml 355 ml Output Total 200 ml 5090 ml 3615 ml Balance 187 ml -4040 ml -3260 ml Result Diagram: 03/23/17 0424 03/23/17 0424 Imaging Last Impressions Chest X-Ray 03/22/17 0000 Signed Impressions: Service Date/Time: Wednesday, March 22, 2017 09:53 - CONCLUSION: Improved aeration. Abdiel Anand MD Chest CT 03/21/17 0000 Signed Impressions: Service Date/Time: Tuesday, March 21, 2017 13:03 - CONCLUSION: 1. Moderate to large bilateral pleural effusions with associated compressive atelectasis in the lower lobes. 2. Bilateral patchy somewhat nodular groundglass opacities with upper lobe predominance likely related to positive fluid balance. 3. Diffuse sclerotic metastasis to the thoracic vertebra, ribs, and left scapula. 4. Bilateral moderate to severe hydronephrosis, incompletely imaged on this exam. This is similar to yesterday's ultrasound exam. 5. 3.6 cm coarsely calcified left thyroid nodule. This can be further evaluated with thyroid ultrasound as indicated. Ferdinand Fisher MD Abdomen/Pelvis CT 03/21/17 0000 Signed Impressions: Service Date/Time: Tuesday, March 21, 2017 13:03 - CONCLUSION: Large bladder mass with bone metastases. Small bilateral pleural effusions. Minimal retroperitoneal adenopathy. Damien Peña MD FACR Renal Ultrasound 03/20/17 0000 Signed Impressions: Service Date/Time: Monday, March 20, 2017 17:46 - CONCLUSION: 1. Moderate bilateral hydronephrosis. Distended bladder. Enlarged prostate. Sebastián Greer MD Lower Extremity Ultrasound 03/20/17 0000 Signed Impressions: Service Date/Time: Monday, March 20, 2017 17:30 - CONCLUSION: Normal examination. Sebastián Greer MD Objective Remarks GENERAL: Ill appearing thin male with pallor. SKIN: Warm and dry. HEAD: Atraumatic. Normocephalic. EYES: Pupils equal and round. No scleral icterus. No injection or drainage. ENT: Mucous membranes pink and moist. NECK: Trachea midline. Right IJ Vas-Cath in place. CARDIOVASCULAR: Regular rate and rhythm. No murmurs rubs or gallops. RESPIRATORY: No accessory muscle use. Clear to auscultation. Breath sounds equal bilaterally. On NC GASTROINTESTINAL: Abdomen soft, non-tender, nondistended. Reducible R inguinal hernia. Bowel sounds present. MUSCULOSKELETAL: Extremities without clubbing, cyanosis. 2+ pedal edema going up about 1/3 of lower leg bilaterally. NEUROLOGICAL: Awake and alert. No obvious cranial nerve deficits. Motor grossly within normal limits. Normal speech. A/P Assessment and Plan NEURO: Lortab as needed for pain. RESP: Nasal cannula wean as tolerated CV: Hypertension Pulmonary edema F/u 2-D echo ordered on 03/20, Hold ASA /anticoagulants at this time as no symptoms of ACS and patient has symptomatic anemia. Metoprolol 25 mg by mouth every 12 hours. Not a candidate for ETHEL inhibitor due to acute kidney injury. GI: Reducible right inguinal hernia Renal diet as tolerated. FEN/RENAL: Acute kidney injury/ CKD Urinary obstruction Urinary bladder clot s/p cystoscopy Continues to hematuria. Underwent cystoscopy with ureteral stenting on 03/[address] Fine. Nephrology started hemodialysis on 03/22. Strict intake output, monitor and replete elecrolytes, follow BUN and creatinine. ID: Leukocytosis Covered empirically with cefepime for possibility of sepsis given his leukocytosis, possible prostatitis. Follow-up blood and urine culture. HEME: Anemia Leukocytosis - lymphocytosis. Anemia with Hgb 6.8. Transfused 3 units of PRBCs on 03/21 and 1 unit PRBCs ordered on 03/22 hemoglobin 7.1 and ongoing hematuria. 2 units PRBCs transfused on 03/22 following cystoscopy for marylou hematuria. Patient does not report any GI bleeding. Hemoccult was negative in the ED. no evidence of iron deficiency or hemolysis. Suspect anemia secondary to hematuria and possible bone metastases. D-dimer was elevated probably secondary to malignancy. Bilateral lower extremity ultrasounds are negative. Hematology consulted and evaluating patient for further anemia workup as well as for metastatic disease. Given DDAVP 20 mcg IV on 03/22 4 suspected platelet dysfunction secondary to uremia and ongoing hematuria. ENDO: Euglycemic PROPH: Protonix 40 g IV daily for stress ulcer prophylaxis. SCDs for DVT prophylaxis. Hold on pharmacologic DVT prophylaxis due to severe anemia. ACCESS: PIV providing adequate access at this time. FELIZ Arboleda (placed 03/22) Ok Leal MD Mar 23, 2017 10:55
--- NOTE | 2017-03-23 11:46 | PD.ONC.PN ---
Subjective Subjective Remarks Afebrile overnight. Just had dialysis Denies pain Complaining of thirst Objective Data Date Time Temp Pulse Resp B/P Pulse Ox O2 Delivery O2 Flow Rate FiO2 03/23/17 10:00 70 03/23/17 08:00 98.2 74 16 145/67 96 03/23/17 08:00 75 03/23/17 07:28 94 Nasal Cannula 1.00 03/23/17 07:00 96 Nasal Cannula 1.00 03/23/17 06:00 70 03/23/17 04:00 72 03/23/17 04:00 98.0 76 21 137/66 97 03/23/17 02:00 68 03/23/17 01:00 97.5 76 16 135/65 97 03/23/17 00:00 97.5 65 14 139/70 96 03/23/17 00:00 63 03/22/17 23:00 64 03/22/17 22:40 97.4 63 14 135/64 100 03/22/17 22:25 97.4 65 16 137/67 99 03/22/17 20:36 97.4 65 12 158/74 99 03/22/17 19:25 98 Nasal Cannula 3.00 03/22/17 19:00 99 Nasal Cannula 4.00 03/22/17 16:00 97.6 58 19 138/65 97 03/22/17 15:25 99 Nasal Cannula 4 03/22/17 15:25 40 03/22/17 15:00 53 03/22/17 14:45 40 03/22/17 14:00 66 03/22/17 13:40 100 40 03/22/17 12:27 97.5 73 18 162/80 94 03/23/17 03/23/17 03/23/17 07:00 15:00 23:00 Intake Total 1229 ml Output Total 1470 ml 1000 ml Balance -241 ml -1000 ml Result Diagram: 03/23/17 0424 03/23/17 0424 Laboratory Results Laboratory Tests Test 03/22/17 03/22/17 03/23/17 19:38 20:22 04:24 White Blood Count 18.1 TH/MM3 17.5 TH/MM3 Red Blood Count 2.53 MIL/MM3 2.87 MIL/MM3 Hemoglobin 7.4 GM/DL 8.4 GM/DL Hematocrit 21.3 % 24.1 % Mean Corpuscular Volume 84.4 FL 83.9 FL Mean Corpuscular Hemoglobin 29.1 PG 29.3 PG Mean Corpuscular Hemoglobin 34.5 % 35.0 % Concent Red Cell Distribution Width 14.4 % 14.5 % Platelet Count 145 TH/MM3 126 TH/MM3 Mean Platelet Volume 8.3 FL 8.5 FL Crossmatch Leukocyte-Reduced Red Blood Cells Blood Bank Comment Neutrophils (%) (Auto) 57.2 % Lymphocytes (%) (Auto) 28.7 % Monocytes (%) (Auto) 6.5 % Eosinophils (%) (Auto) 7.3 % Basophils (%) (Auto) 0.3 % Neutrophils # (Auto) 10.0 TH/MM3 Lymphocytes # (Auto) 5.0 TH/MM3 Monocytes # (Auto) 1.1 TH/MM3 Eosinophils # (Auto) 1.3 TH/MM3 Basophils # (Auto) 0.1 TH/MM3 CBC Comment AUTO DIFF Differential Comment AUTO DIFF CONFIRMED Smudge Cells PRESENT Platelet Estimate LOW Platelet Morphology Comment NORMAL Sodium Level 133 MEQ/L Potassium Level 4.0 MEQ/L Chloride Level 94 MEQ/L Carbon Dioxide Level 21.9 MEQ/L Anion Gap 17 MEQ/L Blood Urea Nitrogen 128 MG/DL Creatinine 15.32 MG/DL Estimat Glomerular Filtration 3 ML/MIN Rate Random Glucose 127 MG/DL Calcium Level 7.1 MG/DL Protein Corrected Calcium 8.2 MG/DL Phosphorus Level 8.6 MG/DL Total Bilirubin 0.5 MG/DL Aspartate Amino Transf 11 U/L (AST/SGOT) Alanine Aminotransferase 10 U/L (ALT/SGPT) Alkaline Phosphatase 46 U/L Total Protein 5.1 GM/DL Albumin 2.2 GM/DL 25-Hydroxy Vitamin D Total 7.0 ng/ML Parathyroid Hormone (Intact) 323.1 PG/ML Culture Results Microbiology Date/Time Procedure Status Source Growth 03/21/17 01:25 Aerobic Blood Culture - Preliminary Resulted Blood Peripheral NO GROWTH IN 2 DAYS 03/21/17 01:25 Anaerobic Blood Culture - Preliminary Resulted Blood Peripheral NO GROWTH IN 2 DAYS 03/21/17 01:30 Aerobic Blood Culture - Preliminary Resulted Blood Peripheral NO GROWTH IN 2 DAYS 03/21/17 01:30 Anaerobic Blood Culture - Preliminary Resulted Blood Peripheral NO GROWTH IN 2 DAYS Administered Medications Medications (Trade) Dose Ordered Sig/Nasreen Route PRN Reason Start Time Stop Time Status Last Admin Dose Admin Sodium Chloride (NS Flush) 2 ml BID IV FLUSH 03/20/17 21:00 03/22/17 08:07 Morphine Sulfate (Morphine Inj) 2 mg Q2H PRN IV PUSH PAIN 6-10 03/20/17 18:30 03/23/17 01:07 Pantoprazole Sodium (Protonix Inj) 40 mg DAILY IV 03/21/17 09:00 03/22/17 08:06 Ondansetron HCl (Zofran Inj) 4 mg Q6H PRN IV NAUSEA OR VOMITING 03/20/17 18:15 03/22/17 22:02 Miscellaneous Information 1 Q361D XX 03/20/17 18:15 03/20/17 21:46 Chlorhexidine Gluconate (Chlorhexidine 2% Cloth) 3 pack Taper DAILY@04 TOP 03/21/17 04:00 03/17/18 03:59 03/23/17 04:14 Senna/Docusate Sodium 1 tab 1 tab BID PO 03/20/17 21:00 03/21/17 19:55 Cefepime HCl/ Sodium Chloride (Maxipime Inj/NS Inj) 100 ml @ 200 mls/hr Q24H IV 03/21/17 00:00 03/23/17 00:15 Metoprolol Tartrate (Lopressor) 25 mg Q12HR PO 03/21/17 02:45 03/22/17 08:07 Calcium Acetate 667 mg 667 mg TID PO 03/21/17 18:00 03/22/17 08:06 Sodium Bicarbonate 150 meq/Dextrose 1,150 ml @ 42 mls/hr Q24H IV 03/21/17 16:00 03/22/17 17:42 Sodium Chloride (NS 1000 ml Inj) 1,000 ml @ 0 mls/hr Q0M PRN IV For Prime & Rinse Back 03/22/17 11:58 03/23/17 08:47 Heparin Sodium (Porcine) (Heparin Inj) UNSCH PRN .XX WITH DIALYSIS 03/22/17 12:00 03/23/17 08:47 Gentamicin Sulfate (Gentamicin (Dialysis) Inj) 20 mg UNSCH PRN IV WITH DIALYSIS 03/22/17 12:00 03/23/17 08:47 Epoetin Hermes 50576 units 10,000 units UNSCH PRN IV WITH DIALYSIS 03/22/17 12:00 03/22/17 15:53 Aminocaproic Acid/ Sodium Chloride (Amicar Inj/NS Irr Bag) 3,012 ml @ 125.5 mls/ hr Q24H IRRIGATION 03/22/17 13:30 03/22/17 13:30 Objective Remarks GENERAL: Cachectic, weak-appearing male, supine in bed in no distress SKIN: Warm and dry. HEAD: Normocephalic. EYES: No injection or drainage. NECK: Supple, trachea midline. CARDIOVASCULAR: + S1/S2. RESPIRATORY: Anterior marinelli clear. on 3L O2 via NC GASTROINTESTINAL: Abdomen soft, non-tender, nondistended. EXTREMITIES: Generalized edema bilateral lower extremities NEUROLOGICAL: Normal speech. Moving all extremities Assessment/Plan Problem List: (1) Bladder mass Status: Acute Plan: 03/23: Pt had cystoscopy yesterday, and had a large clot removed from the bladder. Had hemodialysis today. Discussed with the pt, he does not wish for aggressive chemotherapy if he also will remain on hemodialysis. Will continue to follow along. PSA elevated CT ab/pelvis: + bladder mass with bony mets. CT chest: bilateral pleural effusions. + bony mets to thoracic vertebra, ribs, left scapula (2) Anemia Status: Acute Plan: --transfuse as needed --hemoccult negative --keren negative --no sign of hemolysis. --slightly elevated retic count, no sign of iron deficiency Assessment 61y/o male admitted with ARF, CT shows possible bladder mass and bony mets + elevated PSA. Attending Statement no new c/o Getting HD now. Creatinin is down to 15 Pt does not want any treatment for his cancer if he needs permanent HD. will follow. Problem Qualifiers (1) Anemia: Qualified Code: D64.9 - Anemia, unspecified type Aiyana Jimenez Mar 23, 2017 11:46 Cam Arceo MD Mar 23, 2017 12:51
[2017-03-23] MEDS: CHOLECALCIFEROL (VIT D3) 5000 UNIT CAP PO SCH (11:48)
[2017-03-23] MEDS: PANTOPRAZOLE SODIUM 40 MG VIAL IV SCH (11:49)
[2017-03-23] MEDS: DOCUSATE SODIUM 50 MG/SENNA 8.6 MG TAB PO SCH ×2 (11:49→21:00)
[2017-03-23] MEDS ORDERED: CHOLECALCIFEROL (VIT D3) 5000 UNIT CAP PO ONE (14:00)
[2017-03-23] MEDS: AMINOCAPROIC ACID INJ 3,000 MG in SODIUM CHLORIDE 0.9% IRR BAG 3,000 ML IRRIGATION SCH (14:13)
--- NOTE | 2017-03-23 14:24 | ECHRPT ---
Indication: sob CONCLUSIONS Normal left ventricular size. Wall thickness is measured at the upper limits of normal. The left ventricular systolic function is mildly reduced with an estimated ejection fraction in the range of 45- 50%. Structurally normal mitral valve. Trace mitral valve regurgitation. There is trace tricuspid valve regurgitation. Structurally normal tricuspid valve. A left sided pleural effusion is present. BP: 173 / 91 HR: 79 Rhythm: MEASUREMENTS (Male / Female) Normal Values Technical Quality:Good 2D ECHO LV Diastolic Diameter PLAX 5.9 cm 4.2 - 5.9 / 3.9 - 5.3 cm LV Systolic Diameter PLAX 4.8 cm IVS Diastolic Thickness 1.1 cm 0.6 - 1.0 / 0.6 - 0.9 cm LVPW Diastolic Thickness 1.3 cm 0.6 - 1.0 / 0.6 - 0.9 cm LV Relative Wall Thickness 0.4 RV Internal Dim ED PLAX 2.0 cm M-MODE Aortic Root Diameter MM 3.3 cm LA Systolic Diameter MM 3.6 cm LA Ao Ratio MM 1.1 DOPPLER Mitral E Point Velocity 88.2 cm/s Mitral A Point Velocity 93.7 cm/s Mitral E to A Ratio 0.9 FINDINGS LEFT VENTRICLE Normal left ventricular size. Wall thickness is measured at the upper limits of normal. The left ventricular systolic function is mildly reduced with an estimated ejection fraction in the range of 45- 50%. RIGHT VENTRICLE Normal right ventricular size and systolic function. LEFT ATRIUM The left atrial size is normal. RIGHT ATRIUM The right atrial size is normal. ATRIAL SEPTUM Normal atrial septal thickness without atrial level shunting by limited color doppler interrogation. AORTA The aortic root and proximal ascending aorta are normal in size on limited imaging. MITRAL VALVE Structurally normal mitral valve. Trace mitral valve regurgitation. AORTIC VALVE Trileaflet aortic valve. No aortic valve stenosis or regurgitation. TRICUSPID VALVE There is trace tricuspid valve regurgitation. Structurally normal tricuspid valve. PULMONARY VALVE No pulmonary valve regurgitation or stenosis. VESSELS The inferior vena cava is normal in size. PERICARDIUM There is no pericardial effusion. A left sided pleural effusion is present. Lenin Portillo MD, FACC (Electronically Signed) Final Date:23 March 2017 14:23
[2017-03-23] MEDS ORDERED: hydrALAZINE HCL 20 MG/ML VIAL ONE ×3 (16:13→16:20)
[2017-03-23] MEDS ORDERED: LORazepam 2 MG/ML VIAL ONE (16:20)
[2017-03-23] MEDS ORDERED: BELLADONNA ALKALOIDS/OPIUM 60 MG SUPP RECTAL ONE (16:24)
[2017-03-23] MEDS ORDERED: LORazepam 2 MG/ML VIAL IV PUSH ONE (16:30)
[2017-03-23] MEDS: LORazepam 2 MG/ML VIAL IV PUSH PRN ×2 (16:30→16:45)
[2017-03-23] MEDS ORDERED: NALOXONE HCL 0.4 MG/ML AMP ONE (16:56)
[2017-03-23] MEDS ORDERED: NALOXONE HCL 0.4 MG/ML AMP IV PUSH PRN (17:00)
[2017-03-23] MEDS: ONDANSETRON HCL 4 MG/2 ML VIAL IV PRN (17:52)
[2017-03-23] MEDS: SODIUM BICARBONATE 8.4% INJ 150 MEQ in DEXTROSE 5% IN WATE 1000ML INJ 1,000 ML IV SCH ×4 (17:54→21:20)
[2017-03-23] MEDS: IRR IRRIGATION SCH (17:54)
[2017-03-23] MEDS: SODIUM CHLORIDE 0.9% IRRIGATION SCH (17:54)
[2017-03-23 18:02] LABS: HEMATOCRIT 22.5 % (39.0-51.0); MEAN CELL VOLUME 85.9 FL (80.0-100.0); MEAN CORPUSCULAR HEMOGLOBIN 28.5 PG (27.0-34.0); MEAN CORPUSCULAR HGB CONC 33.2 % (32.0-36.0); PLATELET COUNT 113 TH/MM3 (150-450); RED BLOOD COUNT 2.62 MIL/MM3 (4.50-5.90); RED CELL DISTRIBUTION WIDTH 14.2 % (11.6-17.2); WHITE BLOOD COUNT 16.8 TH/MM3 (4.0-11.0)
[2017-03-23 18:03] LABS: REVIEW FLAG FINAL
[2017-03-23 18:32] LABS: POTASSIUM 3.6 MEQ/L (3.5-5.1)
[2017-03-23 19:08] LABS: CALCIUM-PROTEIN CORRECTED 7.3 MG/DL (8.5-10.1)
[2017-03-23] MEDS ORDERED: CALCIUM GLUCONATE INJ 1 GM in SODIUM CHLORIDE 0.9% INJ 100 ML IV ONE (22:00)
[2017-03-23 22:06] LABS: HEMATOCRIT 23.3 % (39.0-51.0); MEAN CELL VOLUME 85.7 FL (80.0-100.0); MEAN CORPUSCULAR HEMOGLOBIN 28.7 PG (27.0-34.0); MEAN CORPUSCULAR HGB CONC 33.5 % (32.0-36.0); PLATELET COUNT 118 TH/MM3 (150-450); RED BLOOD COUNT 2.72 MIL/MM3 (4.50-5.90); RED CELL DISTRIBUTION WIDTH 14.4 % (11.6-17.2); WHITE BLOOD COUNT 18.3 TH/MM3 (4.0-11.0)
[2017-03-23 22:12] LABS: REVIEW FLAG FINAL
[2017-03-23 22:40] LABS: APTT (PATIENT) 37.6 SEC (24.3-30.1); INTERNATIONAL NORMALIZED RATIO 1.3 RATIO
[2017-03-24] VITALS (19 sets, daily range): BP systolic 136–164; BP diastolic 63–74; PULSE 66–86; RESP 8–25; TEMP 97.2–98.8; O2SAT 93–100
[2017-03-24] MEDS: AMINOCAPROIC ACID INJ 3,000 MG in SODIUM CHLORIDE 0.9% IRR BAG 3,000 ML IRRIGATION SCH ×6 (00:30→22:59)
[2017-03-24] MEDS: CEFEPIME INJ 1,000 MG in SODIUM CHLORIDE 0.9% INJ 100 ML IV SCH ×2 (00:49→23:22)
[2017-03-24] MEDS: CHLORHEXIDINE GLUCONATE 2 % 1 PACK (2 CLOTHS) TOP SCH (05:08)
[2017-03-24 05:22] LABS: HEMATOCRIT 23.4 % (39.0-51.0); MEAN CELL VOLUME 85.5 FL (80.0-100.0); MEAN CORPUSCULAR HEMOGLOBIN 28.7 PG (27.0-34.0); MEAN CORPUSCULAR HGB CONC 33.5 % (32.0-36.0); PLATELET COUNT 118 TH/MM3 (150-450); RED BLOOD COUNT 2.74 MIL/MM3 (4.50-5.90); RED CELL DISTRIBUTION WIDTH 14.6 % (11.6-17.2); WHITE BLOOD COUNT 16.3 TH/MM3 (4.0-11.0)
[2017-03-24 05:34] LABS: HEMO FLAGS AUTO DIFF
[2017-03-24 05:36] LABS: APTT (PATIENT) 35.7 SEC (24.3-30.1); INTERNATIONAL NORMALIZED RATIO 1.2 RATIO; PROTHROMBIN TIME - PATIENT 13.2 SEC (9.8-11.6)
[2017-03-24] MEDS: IRR IRRIGATION SCH ×3 (05:42→19:30)
[2017-03-24] MEDS: SODIUM CHLORIDE 0.9% IRRIGATION SCH ×3 (05:42→19:30)
[2017-03-24 05:46] LABS: POTASSIUM 3.7 MEQ/L (3.5-5.1)
[2017-03-24 05:49] LABS: CALCIUM-PROTEIN CORRECTED 8.5 MG/DL (8.5-10.1); TOTAL BILIRUBIN ADULT 0.4 MG/DL (0.2-1.0)
[2017-03-24] MEDS: SODIUM CHLORIDE 0.9% FLUSH 10 ML FLUSH IV FLUSH SCH ×2 (07:35→20:38)
[2017-03-24 08:28] LABS: BANDS 1 % (0-6); EOSINOPHILS 6 % (0-4); NEUTROPHIL # MANUAL DIFF 8.8 TH/MM3 (1.8-7.7); POLYS (SEG NEUTROPHILS) 53 % (16-70); WBC DIFF SAMPLE 100
[2017-03-24 08:29] LABS: PLATELET ESTIMATE SMEAR LOW (NORMAL); PLATELET MORPHOLOGY NORMAL (NORMAL); SCAN/DIFF FINAL DIFF MANUAL; SMUDGE CELLS PRESENT PRESENT
[2017-03-24] MEDS: CHOLECALCIFEROL (VIT D3) 5000 UNIT CAP PO SCH (08:59)
[2017-03-24] MEDS: CALCIUM ACETATE 667 MG CAP PO SCH ×3 (08:59→18:04)
[2017-03-24] MEDS: PANTOPRAZOLE SODIUM 40 MG VIAL IV SCH (08:59)
[2017-03-24] MEDS: DOCUSATE SODIUM 50 MG/SENNA 8.6 MG TAB PO SCH ×2 (08:59→20:38)
[2017-03-24] MEDS ORDERED: CHOLECALCIFEROL (VIT D3) 5000 UNIT CAP PO SCH (09:00)
[2017-03-24] MEDS: METOPROLOL TARTRATE 25 MG TAB PO SCH ×2 (09:00→20:38)
--- NOTE | 2017-03-24 10:59 | PD.OP ---
Operative Report Date of Surgery: Mar 24, 2017 Preoperative Diagnosis: Gross hematuria with clot retention Postoperative Diagnosis: Same Procedure: Cystoscopy with clot evacuation and fulguration. Anesthesia: Gen. LMA Surgeon: Zion Fine Sr. Media Manager(s): None Resident Surgeon: None Operation and Findings: 61-year-old male presented with history of gross hematuria who underwent prior cystoscopy with clot evacuation 2 days ago. He received heparin during dialysis which may be the cause of the ongoing gross hematuria with clot retention. Decision was made to bring the patient to the operating room undergo cystoscopy with clot evacuation and fulguration. Risk and benefits discussed with family and they were willing to proceed. He was brought to the operating and from itself as Doe Ross. His placement dorsal lithotomy position, prepped and draped in usual sterile fashion, received preprocedure antibiotics and general LMA anesthesia was administered. The 24 [place] sheath was passed into the bladder and clots were identified. The elic evacuator was used to remove multiple clots. Once the bladder was cleared of clots there was some areas of bleeding around the bladder neck and in the dome region which were fulgurated with the rollerball. This was done until hemostasis was obtained. Once the bleeding was stopped the urine was clear decision was made then to place a 24 [place] three-way Pollock catheter. This was done without difficulty was started on CBI. He was extubated and awoken and transferred to the recovery room in stable condition. Of note, his left stent has retracted up the ureter and in order to remove both stents in the future he'll need to be taken to the OR to remove his left stent. He tolerated procedure well. Zion Fine DO Mar 24, 2017 10:59
[2017-03-24] MEDS ORDERED: DO NOT ADM ANY ANTICOAGULANT DRUGS PRN (11:00)
[2017-03-24] MEDS ORDERED: *ONDANSETRON 4 MG VIAL PERIprocedural Use ONLY ONE (11:13)
[2017-03-24] MEDS ORDERED: *morphine SULFATE 8 MG/ML PERIprocedure ONLY ONE ×2 (11:26→11:50)
[2017-03-24] MEDS ORDERED: *LABETALOL HCL 100 MG/20 ML VIAL PERIprocedural Use ONLY ONE (11:31)
[2017-03-24] MEDS ORDERED: ONDANSETRON HCL 4 MG/2 ML VIAL IV PUSH ONE (12:00)
[2017-03-24] MEDS ORDERED: PROPOFOL 200 MG/20 ML AMP IV ONE (12:00)
[2017-03-24] MEDS ORDERED: SODIUM CHLORID 0.9% 500 ML INJ 500 ML IV ONE (12:00)
[2017-03-24] MEDS ORDERED: LACTATED RINGER'S 1000 ML INJ 1,000 ML IV ONE (12:00)
--- NOTE | 2017-03-24 12:22 | HHI.CCPN ---
Subjective Remarks/Hospital Course 03/21: 61 yo WM with PMH of hypertension (not on medical therapy), daily alcohol use, not followed by primary care physician who presenteds to [facility] emergency department [place] with a chief complaint of shortness of breath. He states that for about the last week he has had cough, orthopnea, shortness of breath. Over the last 3 days he has had pedal edema. He denies chest pain but stated that a week ago he had tightness in his chest while in bed. He denies any exertional chest pain or chest tightness. + dysnea on exertion. He states that he has not been feeling well for 3-4 months after he had an episode of sore throat, sinus congestion, myalgias, low-grade fever. He has had poor appetite for the last couple of months and states that he has lost 8-12 pounds over the last 2 months. He attributes his weight loss to discontinuation of beer 2 months ago. Upon presentation to the ED he was noted to be in renal failure with BUN 189 and Creatinine 21. BNP is 3988. Troponin 0.2. Pollock was placed and he had 1 L urine output immediately. He had hematuria after difficult catheter placement but denies hematuria at home. He does indicate difficulty with voiding completely and with "weak stream". Denies dysuria or flank pain. He is anemic with Hgb 6.8. He has had diarrhea for the last month but denies melena, BRBPR. He has never had an EGD or colonoscopy. He has been taking an Alkaseltzer Cold combination drug daily for 1 week but he is uncertain if it contains NSAIDS. 03/22: Awake and alert this morning. Continues to have hematuria. CT chest abdomen pelvis done yesterday revealed bilateral effusions, bladder mass, bone metastases. Urology taking patient over to OR for cystoscopy for further evaluation. Nephrology planning hemodialysis after Vas-Cath placement today. 03/23: Underwent cystoscopy and bilateral ureteral stents yesterday. Undergoing CVI for hematuria. Found to have large clot in urinary bladder which was evacuated by Dr. Fine. Started on hemodialysis yesterday. This morning he is awake and alert following commands appropriately. Denies any shortness of breath or chest pain. Denies any abdominal discomfort. 03/24: Developed clots in urinary bladder during CVI yesterday. Dr. Fine came to bedside and manually evacuated multiple clots and got CVI and restarted last evening. He received 2 units PRBCs overnight. Continues to have ongoing hematuria this morning and hence Dr. Fine planning cystoscopy on 03/24. Patient is awake and alert this morning at the time of my evaluation. Not short of breath. Denied any abdominal pain. Objective Vital Signs Date Time Temp Pulse Resp B/P Pulse Ox O2 Delivery O2 Flow Rate FiO2 03/24/17 11:36 60 15 157/70 97 Nasal Cannula 4 03/24/17 11:03 97.5 03/22/17 15:25 40 Intake and Output 03/23/17 03/23/17 03/24/17 08:00 16:00 00:00 Intake Total 1229 ml 343 ml 334 ml Output Total 1470 ml 1000 ml 2000 ml Balance -241 ml -657 ml -1666 ml Result Diagram: 03/24/17 0947 03/24/17 0338 Imaging Last Impressions Chest X-Ray 03/22/17 0000 Signed Impressions: Service Date/Time: Wednesday, March 22, 2017 09:53 - CONCLUSION: Improved aeration. Abdiel Anand MD Chest CT 03/21/17 0000 Signed Impressions: Service Date/Time: Tuesday, March 21, 2017 13:03 - CONCLUSION: 1. Moderate to large bilateral pleural effusions with associated compressive atelectasis in the lower lobes. 2. Bilateral patchy somewhat nodular groundglass opacities with upper lobe predominance likely related to positive fluid balance. 3. Diffuse sclerotic metastasis to the thoracic vertebra, ribs, and left scapula. 4. Bilateral moderate to severe hydronephrosis, incompletely imaged on this exam. This is similar to yesterday's ultrasound exam. 5. 3.6 cm coarsely calcified left thyroid nodule. This can be further evaluated with thyroid ultrasound as indicated. Ferdinand Fisher MD Abdomen/Pelvis CT 03/21/17 0000 Signed Impressions: Service Date/Time: Tuesday, March 21, 2017 13:03 - CONCLUSION: Large bladder mass with bone metastases. Small bilateral pleural effusions. Minimal retroperitoneal adenopathy. Damien Peña MD FACR Renal Ultrasound 03/20/17 0000 Signed Impressions: Service Date/Time: Monday, March 20, 2017 17:46 - CONCLUSION: 1. Moderate bilateral hydronephrosis. Distended bladder. Enlarged prostate. Sebastián Greer MD Lower Extremity Ultrasound 03/20/17 0000 Signed Impressions: Service Date/Time: Monday, March 20, 2017 17:30 - CONCLUSION: Normal examination. Sebastián Greer MD Objective Remarks GENERAL: Ill appearing thin male with pallor. SKIN: Warm and dry. HEAD: Atraumatic. Normocephalic. EYES: Pupils equal and round. No scleral icterus. No injection or drainage. ENT: Mucous membranes pink and moist. NECK: Trachea midline. Right IJ Vas-Cath in place. CARDIOVASCULAR: Regular rate and rhythm. No murmurs rubs or gallops. RESPIRATORY: No accessory muscle use. Clear to auscultation. Breath sounds equal bilaterally. On NC GASTROINTESTINAL: Abdomen soft, non-tender, nondistended. Reducible R inguinal hernia. Bowel sounds present. MUSCULOSKELETAL: Extremities without clubbing, cyanosis. 2+ pedal edema going up about 1/3 of lower leg bilaterally. NEUROLOGICAL: Awake and alert. No obvious cranial nerve deficits. Motor grossly within normal limits. Normal speech. A/P Assessment and Plan NEURO: Lortab as needed for pain. RESP: Nasal cannula wean as tolerated CV: Hypertension Pulmonary edema F/u 2-D echo ordered on 03/20, Hold ASA /anticoagulants at this time as no symptoms of ACS and patient has symptomatic anemia. Metoprolol 25 mg by mouth every 12 hours. Not a candidate for ETHEL inhibitor due to acute kidney injury. GI: Reducible right inguinal hernia Renal diet as tolerated. FEN/RENAL: Acute kidney injury/ CKD Urinary obstruction Urinary bladder clot s/p cystoscopy Hematuria Continues to have hematuria. Underwent cystoscopy with ureteral stenting on 03/[address] Fine. Nephrology started hemodialysis on 03/22. Strict intake output, monitor and replete elecrolytes, follow BUN and creatinine. CBI continuous. Repeat cystoscopy on 03/[address] Fine. ID: Leukocytosis Covered empirically with cefepime for possibility of sepsis given his leukocytosis, possible prostatitis. Follow-up blood and urine culture. HEME: Anemia Leukocytosis - lymphocytosis. Anemia with Hgb 6.8. Transfused 3 units of PRBCs on 03/21 and 1 unit PRBCs ordered on 03/22 hemoglobin 7.1 and ongoing hematuria. 2 units PRBCs transfused on 03/22 following cystoscopy for marylou hematuria. 2 units PRBCs transfused on 03/23 ongoing hematuria. Patient does not report any GI bleeding. Hemoccult was negative in the ED. no evidence of iron deficiency or hemolysis. Anemia secondary to hematuria and possible bone metastases. D-dimer was elevated probably secondary to malignancy. Bilateral lower extremity ultrasounds are negative. Hematology consulted and evaluating patient for further anemia workup as well as for metastatic disease. Given DDAVP 20 mcg IV on 03/22 4 suspected platelet dysfunction secondary to uremia and ongoing hematuria. ENDO: Euglycemic PROPH: Protonix 40 g IV daily for stress ulcer prophylaxis. SCDs for DVT prophylaxis. Hold on pharmacologic DVT prophylaxis due to severe anemia. ACCESS: PIV providing adequate access at this time. FELIZ Arboleda (placed 03/22) Discussed with Dr. Fine, discussed with Dr. Duval. Patient is not getting any heparin with hemodialysis per my discussion with Dr. Duval. Ok Leal MD Mar 24, 2017 12:22
--- NOTE | 2017-03-24 13:35 | HHI.NPPN ---
Subjective History of Present Illness ARF with uremia bladder clot evacuated Review of Systems General Constitutional: Fatigue Objective Data Data 03/23/17 03/24/17 19:00 07:00 Intake Total 343 ml 334 ml Output Total 1000 ml 3000 ml Balance -657 ml -2666 ml IV Total 343 ml 334 ml Output Urine Total 3000 ml Hemodialysis 1000 ml Vital Signs Date Time Temp Pulse Resp B/P Pulse Ox O2 Delivery O2 Flow Rate FiO2 03/24/17 12:00 66 03/24/17 12:00 98.1 66 8 156/72 98 03/24/17 11:36 60 15 157/70 97 Nasal Cannula 4 03/24/17 11:30 72 9 178/79 97 Nasal Cannula 4 03/24/17 11:15 77 15 183/84 100 Nasal Cannula 4 03/24/17 11:03 97.5 75 10 170/76 100 Nasal Cannula 4 03/24/17 08:00 98.8 69 10 136/63 93 03/24/17 08:00 70 03/24/17 07:23 97 Nasal Cannula 4.00 03/24/17 07:00 92 Nasal Cannula 4.00 03/24/17 06:00 70 03/24/17 05:20 97.4 66 21 139/65 99 03/24/17 04:04 100 Nasal Cannula 4.00 03/24/17 04:00 72 03/24/17 04:00 97.4 69 21 139/65 99 03/24/17 02:40 97.3 74 20 152/70 100 03/24/17 02:25 97.2 68 25 140/63 100 03/24/17 02:00 69 03/24/17 00:00 97.8 68 12 143/67 100 03/24/17 00:00 86 03/23/17 22:00 88 03/23/17 20:00 88 03/23/17 20:00 97.4 70 14 139/65 100 03/23/17 19:00 99 Non-Rebreather 15.00 03/23/17 19:00 99 Non-Rebreather 15.00 03/23/17 18:00 82 03/23/17 16:00 119 03/23/17 16:00 98.8 119 26 214/117 86 03/23/17 14:00 73 -: 03/24/17 0947 03/24/17 0338 Physical Exam General Appearance: Well Developed, Well Nourished Pulmonary Resp Exam: Clear Bilaterally, Breath Sounds Equal Cardiology CV Exam: Regular, Normal Sinus Rhythm Gastrointestinal/Abdomen GI Exam: Soft, Non-Tender, Bowel Sounds Present Extremeties Extremities Exam: Moderate Edema Assessment/Plan Problem List: (1) Acute renal failure Plan: Patient had obstructive uropathy with indwelling Pollock catheter, he had dialysis yesterday have to go to OR for hematuria, d/w staff that we do not use heparin during dialysis other then at end to flush her catheter, he may be uremic and that may be reason for bleeding,d/w Nursing staff at dialysis, I will take off the prime heparin order although they never used it to prime the tubing or dialyzer I have order 2 units cryoprecipitate, sec HPTH Low Vit D on Vitamin D 5000 units (2) Uropathy, obstructive Plan: Severe followed by urology (3) Anemia Plan: on epogen Problem Qualifiers (1) Anemia: Qualified Code: D64.9 - Anemia, unspecified type Karena Duval MD Mar 24, 2017 13:35
--- NOTE | 2017-03-24 15:04 | PD.ONC.PN ---
Subjective Subjective Remarks Afebrile overnight Patient resting in bed with daughter at bedside Asking for milkshake Objective Data Date Time Temp Pulse Resp B/P Pulse Ox O2 Delivery O2 Flow Rate FiO2 03/24/17 14:18 97.6 70 19 160/74 100 03/24/17 14:03 97.5 72 16 164/72 98 03/24/17 14:00 69 03/24/17 12:00 66 03/24/17 12:00 98.1 66 8 156/72 98 03/24/17 11:36 60 15 157/70 97 Nasal Cannula 4 03/24/17 11:30 72 9 178/79 97 Nasal Cannula 4 03/24/17 11:15 77 15 183/84 100 Nasal Cannula 4 03/24/17 11:03 97.5 75 10 170/76 100 Nasal Cannula 4 03/24/17 08:00 98.8 69 10 136/63 93 03/24/17 08:00 70 03/24/17 07:23 97 Nasal Cannula 4.00 03/24/17 07:00 92 Nasal Cannula 4.00 03/24/17 06:00 70 03/24/17 05:20 97.4 66 21 139/65 99 03/24/17 04:04 100 Nasal Cannula 4.00 03/24/17 04:00 72 03/24/17 04:00 97.4 69 21 139/65 99 03/24/17 02:40 97.3 74 20 152/70 100 03/24/17 02:25 97.2 68 25 140/63 100 03/24/17 02:00 69 03/24/17 00:00 97.8 68 12 143/67 100 03/24/17 00:00 86 03/23/17 22:00 88 03/23/17 20:00 88 03/23/17 20:00 97.4 70 14 139/65 100 03/23/17 19:00 99 Non-Rebreather 15.00 03/23/17 19:00 99 Non-Rebreather 15.00 03/23/17 18:00 82 03/23/17 16:00 119 03/23/17 16:00 98.8 119 26 214/117 86 03/24/17 03/24/17 03/24/17 07:00 15:00 23:00 Intake Total 488 ml Output Total 1000 ml 2400 ml Balance -1000 ml -1912 ml Result Diagram: 03/24/17 0947 03/24/17 0338 Laboratory Results Laboratory Tests Test 03/23/17 03/23/17 03/23/17 03/24/17 17:38 21:23 23:27 03:38 White Blood Count 16.8 TH/MM3 18.3 TH/MM3 16.3 TH/MM3 Red Blood Count 2.62 MIL/MM3 2.72 MIL/MM3 2.74 MIL/MM3 Hemoglobin 7.5 GM/DL 7.8 GM/DL 7.8 GM/DL Hematocrit 22.5 % 23.3 % 23.4 % Mean Corpuscular Volume 85.9 FL 85.7 FL 85.5 FL Mean Corpuscular Hemoglobin 28.5 PG 28.7 PG 28.7 PG Mean Corpuscular Hemoglobin 33.2 % 33.5 % 33.5 % Concent Red Cell Distribution Width 14.2 % 14.4 % 14.6 % Platelet Count 113 TH/MM3 118 TH/MM3 118 TH/MM3 Mean Platelet Volume 8.2 FL 8.6 FL 8.6 FL Sodium Level 135 MEQ/L 137 MEQ/L Potassium Level 3.6 MEQ/L 3.7 MEQ/L Chloride Level 91 MEQ/L 97 MEQ/L Carbon Dioxide Level 33.0 MEQ/L 30.0 MEQ/L Anion Gap 11 MEQ/L 10 MEQ/L Blood Urea Nitrogen 81 MG/DL 84 MG/DL Creatinine 10.52 MG/DL 11.42 MG/DL Estimat Glomerular Filtration 5 ML/MIN 5 ML/MIN Rate Random Glucose 368 MG/DL 118 MG/DL Calcium Level 6.3 MG/DL 7.3 MG/DL Protein Corrected Calcium 7.3 MG/DL 8.5 MG/DL Total Protein 5.0 GM/DL 4.9 GM/DL Prothrombin Time 14.0 SEC 13.2 SEC Prothromb Time International 1.3 RATIO 1.2 RATIO Ratio Activated Partial 37.6 SEC 35.7 SEC Thromboplast Time Fibrinogen 374 mg/dL Blood Type O NEGATIVE Antibody Screen NEGATIVE Crossmatch Leukocyte-Reduced Red Blood Cells Blood Bank Comment Neutrophils (%) (Auto) % Lymphocytes (%) (Auto) % Monocytes (%) (Auto) % Eosinophils (%) (Auto) % Basophils (%) (Auto) % Neutrophils # (Auto) TH/MM3 Lymphocytes # (Auto) TH/MM3 Monocytes # (Auto) TH/MM3 Eosinophils # (Auto) TH/MM3 Basophils # (Auto) TH/MM3 CBC Comment AUTO DIFF Differential Total Cells 100 Counted Neutrophils % (Manual) 53 % Band Neutrophils % 1 % Lymphocytes % 38 % Monocytes % 2 % Eosinophils % 6 % Neutrophils # (Manual) 8.8 TH/MM3 Differential Comment FINAL DIFF MANUAL Smudge Cells PRESENT Platelet Estimate LOW Platelet Morphology Comment NORMAL Total Bilirubin 0.4 MG/DL Aspartate Amino Transf 15 U/L (AST/SGOT) Alanine Aminotransferase 9 U/L (ALT/SGPT) Alkaline Phosphatase 53 U/L Albumin 2.1 GM/DL Test 03/24/17 03/24/17 03/24/17 09:45 09:47 11:18 Blood Type O NEGATIVE Crossmatch Leukocyte-Reduced Red Blood Cells Blood Bank Comment Hemoglobin 9.5 GM/DL Administered Medications Medications (Trade) Dose Ordered Sig/Nasreen Route PRN Reason Start Time Stop Time Status Last Admin Dose Admin Sodium Chloride (NS Flush) 2 ml BID IV FLUSH 03/20/17 21:00 03/24/17 07:35 Morphine Sulfate (Morphine Inj) 2 mg Q2H PRN IV PUSH PAIN 6-10 03/20/17 18:30 03/23/17 15:43 Pantoprazole Sodium (Protonix Inj) 40 mg DAILY IV 03/21/17 09:00 03/24/17 08:59 Ondansetron HCl (Zofran Inj) 4 mg Q6H PRN IV NAUSEA OR VOMITING 03/20/17 18:15 03/23/17 17:52 Miscellaneous Information 1 Q361D XX 03/20/17 18:15 03/20/17 21:46 Chlorhexidine Gluconate (Chlorhexidine 2% Cloth) 3 pack Taper DAILY@04 TOP 03/21/17 04:00 03/17/18 03:59 03/24/17 05:08 Senna/Docusate Sodium 1 tab 1 tab BID PO 03/20/17 21:00 03/24/17 08:59 Cefepime HCl/ Sodium Chloride (Maxipime Inj/NS Inj) 100 ml @ 200 mls/hr Q24H IV 03/21/17 00:00 03/24/17 00:49 Metoprolol Tartrate (Lopressor) 25 mg Q12HR PO 03/21/17 02:45 03/24/17 09:00 Calcium Acetate 667 mg 667 mg TID PO 03/21/17 18:00 03/24/17 14:53 Sodium Bicarbonate 150 meq/Dextrose 1,150 ml @ 42 mls/hr Q24H IV 03/21/17 16:00 03/23/17 21:20 Sodium Chloride (NS 1000 ml Inj) 1,000 ml @ 0 mls/hr Q0M PRN IV For Prime & Rinse Back 03/22/17 11:58 03/23/17 08:47 Heparin Sodium (Porcine) (Heparin Inj) UNSCH PRN .XX WITH DIALYSIS 03/22/17 12:00 03/23/17 08:47 Gentamicin Sulfate (Gentamicin (Dialysis) Inj) 20 mg UNSCH PRN IV WITH DIALYSIS 03/22/17 12:00 03/23/17 08:47 Epoetin Hermes 48009 units 10,000 units UNSCH PRN IV WITH DIALYSIS 03/22/17 12:00 03/22/17 15:53 Aminocaproic Acid/ Sodium Chloride (Amicar Inj/NS Irr Bag) 3,012 ml @ 125.5 mls/ hr Q24H IRRIGATION 03/22/17 13:30 03/24/17 14:53 Cholecalciferol 5000 units 5,000 units DAILY PO 03/23/17 09:00 03/24/17 08:59 Sodium Chloride (NS Irr Bag) 3,000 ml @ 125.5 mls/ hr Q24H IRRIGATION 03/23/17 17:00 03/24/17 09:16 Objective Remarks GENERAL: Cachectic, weak-appearing male, supine in bed in no distress SKIN: Warm and dry. HEAD: Normocephalic. EYES: No injection or drainage. NECK: Supple, trachea midline. CARDIOVASCULAR: + S1/S2. RESPIRATORY: Anterior marinelli clear. on 3L O2 via NC GASTROINTESTINAL: Abdomen soft, non-tender, nondistended. EXTREMITIES: Generalized edema bilateral lower extremities NEUROLOGICAL: Normal speech. Moving all extremities Assessment/Plan Problem List: (1) Bladder mass Status: Acute Plan: 03/24: Pain is overall better controlled. Again confirmed with patient that he does not wish to pursue biopsy of bony lesion. Discussed with patient that we will be available if he changes his mind. PSA elevated CT ab/pelvis: + bladder mass with bony mets. CT chest: bilateral pleural effusions. + bony mets to thoracic vertebra, ribs, left scapula (2) Anemia Status: Acute Plan: --transfuse as needed --hemoccult negative --keren negative --no sign of hemolysis. --slightly elevated retic count, no sign of iron deficiency Assessment 61y/o male admitted with ARF, CT shows possible bladder mass and bony mets + elevated PSA. Attending Statement no new c/o Feels somewhat better EX at bedside. Creatinine is improving' will follow. Problem Qualifiers (1) Anemia: Qualified Code: D64.9 - Anemia, unspecified type Aiyana Jimenez Mar 24, 2017 15:04 Cam Arceo MD Mar 24, 2017 18:54
[2017-03-24] MEDS: hydrALAZINE HCL 20 MG/ML VIAL IV PUSH PRN (18:04)
[2017-03-25] VITALS (15 sets, daily range): BP systolic 133–155; BP diastolic 63–68; PULSE 63–83; RESP 14–28; TEMP 98.1–98.3; O2SAT 92–100
[2017-03-25] MEDS: AMINOCAPROIC ACID INJ 3,000 MG in SODIUM CHLORIDE 0.9% IRR BAG 3,000 ML IRRIGATION SCH ×4 (01:18→06:46)
[2017-03-25] MEDS: SODIUM BICARBONATE 8.4% INJ 150 MEQ in DEXTROSE 5% IN WATE 1000ML INJ 1,000 ML IV SCH ×2 (02:57)
[2017-03-25] MEDS: CHLORHEXIDINE GLUCONATE 2 % 1 PACK (2 CLOTHS) TOP SCH (04:10)
[2017-03-25 05:26] LABS: MEAN CELL VOLUME 85.4 FL (80.0-100.0); MEAN CORPUSCULAR HEMOGLOBIN 28.3 PG (27.0-34.0); MEAN CORPUSCULAR HGB CONC 33.1 % (32.0-36.0); PLATELET COUNT 142 TH/MM3 (150-450); RED CELL DISTRIBUTION WIDTH 15.9 % (11.6-17.2); WHITE BLOOD COUNT 20.1 TH/MM3 (4.0-11.0)
[2017-03-25 05:27] LABS: HEMO FLAGS AUTO DIFF
[2017-03-25 05:47] LABS: BICARBONATE 31.4 MEQ/L (21.0-32.0); POTASSIUM 3.9 MEQ/L (3.5-5.1)
[2017-03-25] MEDS: SODIUM CHLORIDE 0.9% FLUSH 10 ML FLUSH IV FLUSH SCH ×2 (07:24→20:33)
[2017-03-25 08:24] LABS: BASOPHILS 1 % (0-2); EOSINOPHILS 9 % (0-4); NEUTROPHIL # MANUAL DIFF 11.1 TH/MM3 (1.8-7.7); POLYS (SEG NEUTROPHILS) 55 % (16-70); WBC DIFF SAMPLE 100
[2017-03-25 08:25] LABS: PLATELET ESTIMATE SMEAR NORMAL (NORMAL); PLATELET MORPHOLOGY NORMAL (NORMAL); SCAN/DIFF FINAL DIFF MANUAL
[2017-03-25] MEDS: PANTOPRAZOLE SODIUM 40 MG VIAL IV SCH (08:59)
[2017-03-25] MEDS: LACTULOSE SYRUP 20 GM/30 ML CUP PO PRN (08:59)
[2017-03-25] MEDS: CHOLECALCIFEROL (VIT D3) 5000 UNIT CAP PO SCH (09:01)
[2017-03-25] MEDS: METOPROLOL TARTRATE 25 MG TAB PO SCH ×2 (09:01→21:55)
[2017-03-25] MEDS: DOCUSATE SODIUM 50 MG/SENNA 8.6 MG TAB PO SCH ×2 (09:02→20:33)
[2017-03-25] MEDS: CALCIUM ACETATE 667 MG CAP PO SCH ×3 (09:02→18:20)
--- NOTE | 2017-03-25 10:36 | HHI.NPPN ---
Subjective History of Present Illness ARF with uremia bladder clot evacuated Review of Systems General Constitutional: Fatigue Objective Data Data 03/24/17 03/25/17 19:00 07:00 Intake Total 488 ml 627 ml Output Total 2400 ml 2700 ml Balance -1912 ml -2073 ml Intake Oral 15 ml 240 ml IV Total 373 ml 387 ml Other 100 ml Output Urine Total 2400 ml 2700 ml # Bowel Movements 0 Vital Signs Date Time Temp Pulse Resp B/P Pulse Ox O2 Delivery O2 Flow Rate FiO2 03/25/17 10:00 67 03/25/17 08:00 98.2 68 14 155/68 98 03/25/17 08:00 68 03/25/17 07:48 94 Nasal Cannula 5.00 03/25/17 07:00 94 Nasal Cannula 6.00 03/25/17 06:00 77 03/25/17 04:00 98.3 75 20 151/67 100 03/25/17 04:00 75 03/25/17 03:44 100 Venturi Mask 03/25/17 02:00 75 03/25/17 01:30 93 Nasal Cannula 6.00 03/25/17 00:00 83 03/25/17 00:00 95 Nasal Cannula 4.00 03/25/17 00:00 98.2 83 26 154/68 92 03/24/17 22:00 74 03/24/17 20:00 81 03/24/17 20:00 97.5 81 19 147/71 99 03/24/17 19:30 99 Nasal Cannula 3.00 03/24/17 19:28 100 Nasal Cannula 3.00 03/24/17 19:00 95 Nasal Cannula 4.00 03/24/17 18:00 74 03/24/17 16:00 71 03/24/17 16:00 97.8 71 14 158/72 97 03/24/17 14:18 97.6 70 19 160/74 100 03/24/17 14:03 97.5 72 16 164/72 98 03/24/17 14:00 69 03/24/17 12:00 66 03/24/17 12:00 98.1 66 8 156/72 98 03/24/17 11:36 60 15 157/70 97 Nasal Cannula 4 03/24/17 11:30 72 9 178/79 97 Nasal Cannula 4 03/24/17 11:15 77 15 183/84 100 Nasal Cannula 4 03/24/17 11:03 97.5 75 10 170/76 100 Nasal Cannula 4 -: 03/25/17 0440 03/25/17 0440 Physical Exam General Appearance: Well Developed, Well Nourished Pulmonary Resp Exam: Clear Bilaterally, Breath Sounds Equal Cardiology CV Exam: Regular, Normal Sinus Rhythm Gastrointestinal/Abdomen GI Exam: Soft, Non-Tender, Bowel Sounds Present Extremeties Extremities Exam: Moderate Edema Assessment/Plan Problem List: (1) Acute renal failure Plan: Patient had obstructive uropathy with indwelling Pollock catheter, he had dialysis Wed today will get another treatment today no recovery Prostate Ca ? hematuria slowed sec HPTH Low Vit D on Vitamin D 5000 units (2) Uropathy, obstructive Plan: Severe followed by urology (3) Anemia Plan: on epogen Problem Qualifiers (1) Anemia: Qualified Code: D64.9 - Anemia, unspecified type Karena Duval MD Mar 25, 2017 10:36
--- NOTE | 2017-03-25 10:53 | HHI.CCPN ---
Subjective Remarks/Hospital Course 03/21: 61 yo WM with PMH of hypertension (not on medical therapy), daily alcohol use, not followed by primary care physician who presenteds to [facility] emergency department [place] with a chief complaint of shortness of breath. He states that for about the last week he has had cough, orthopnea, shortness of breath. Over the last 3 days he has had pedal edema. He denies chest pain but stated that a week ago he had tightness in his chest while in bed. He denies any exertional chest pain or chest tightness. + dysnea on exertion. He states that he has not been feeling well for 3-4 months after he had an episode of sore throat, sinus congestion, myalgias, low-grade fever. He has had poor appetite for the last couple of months and states that he has lost 8-12 pounds over the last 2 months. He attributes his weight loss to discontinuation of beer 2 months ago. Upon presentation to the ED he was noted to be in renal failure with BUN 189 and Creatinine 21. BNP is 3988. Troponin 0.2. Pollock was placed and he had 1 L urine output immediately. He had hematuria after difficult catheter placement but denies hematuria at home. He does indicate difficulty with voiding completely and with "weak stream". Denies dysuria or flank pain. He is anemic with Hgb 6.8. He has had diarrhea for the last month but denies melena, BRBPR. He has never had an EGD or colonoscopy. He has been taking an Alkaseltzer Cold combination drug daily for 1 week but he is uncertain if it contains NSAIDS. 03/22: Awake and alert this morning. Continues to have hematuria. CT chest abdomen pelvis done yesterday revealed bilateral effusions, bladder mass, bone metastases. Urology taking patient over to OR for cystoscopy for further evaluation. Nephrology planning hemodialysis after Vas-Cath placement today. 03/23: Underwent cystoscopy and bilateral ureteral stents yesterday. Undergoing CVI for hematuria. Found to have large clot in urinary bladder which was evacuated by Dr. Fine. Started on hemodialysis yesterday. This morning he is awake and alert following commands appropriately. Denies any shortness of breath or chest pain. Denies any abdominal discomfort. 03/24: Developed clots in urinary bladder during CVI yesterday. Dr. Fine came to bedside and manually evacuated multiple clots and got CBI restarted last evening. He received 2 units PRBCs overnight. Continues to have ongoing hematuria this morning and hence Dr. Fine planning cystoscopy on 03/24. Patient is awake and alert this morning at the time of my evaluation. Not short of breath. Denied any abdominal pain. 03/25: Patient resting in bed comfortably. Underwent cystoscopy with fulguration of bleeding sites and urinary bladder on 03/[address] Fine. CDI continues. [place] tinged CBI fluid noted in Pollock catheter. Denies any chest pain and shortness of breath or abdominal discomfort. Complaining of poor appetite. Objective Vital Signs Date Time Temp Pulse Resp B/P Pulse Ox O2 Delivery O2 Flow Rate FiO2 03/25/17 10:00 67 03/25/17 08:00 98.2 14 155/68 98 03/25/17 07:48 Nasal Cannula 5.00 03/22/17 15:25 40 Intake and Output 03/24/17 03/24/17 03/25/17 08:00 16:00 00:00 Intake Total 488 ml Output Total 1000 ml 2400 ml 2700 ml Balance -1000 ml -1912 ml -2700 ml Result Diagram: 03/25/17 0440 03/25/17 0440 Imaging Last Impressions Chest X-Ray 03/22/17 0000 Signed Impressions: Service Date/Time: Wednesday, March 22, 2017 09:53 - CONCLUSION: Improved aeration. Abdiel Anand MD Chest CT 03/21/17 0000 Signed Impressions: Service Date/Time: Tuesday, March 21, 2017 13:03 - CONCLUSION: 1. Moderate to large bilateral pleural effusions with associated compressive atelectasis in the lower lobes. 2. Bilateral patchy somewhat nodular groundglass opacities with upper lobe predominance likely related to positive fluid balance. 3. Diffuse sclerotic metastasis to the thoracic vertebra, ribs, and left scapula. 4. Bilateral moderate to severe hydronephrosis, incompletely imaged on this exam. This is similar to yesterday's ultrasound exam. 5. 3.6 cm coarsely calcified left thyroid nodule. This can be further evaluated with thyroid ultrasound as indicated. Ferdinand Fisher MD Abdomen/Pelvis CT 03/21/17 0000 Signed Impressions: Service Date/Time: Tuesday, March 21, 2017 13:03 - CONCLUSION: Large bladder mass with bone metastases. Small bilateral pleural effusions. Minimal retroperitoneal adenopathy. Damien Peña MD FACR Renal Ultrasound 03/20/17 0000 Signed Impressions: Service Date/Time: Monday, March 20, 2017 17:46 - CONCLUSION: 1. Moderate bilateral hydronephrosis. Distended bladder. Enlarged prostate. Seabstián Greer MD Lower Extremity Ultrasound 03/20/17 0000 Signed Impressions: Service Date/Time: Monday, March 20, 2017 17:30 - CONCLUSION: Normal examination. Sebastián Greer MD Objective Remarks GENERAL: Ill appearing thin male with pallor. SKIN: Warm and dry. HEAD: Atraumatic. Normocephalic. EYES: Pupils equal and round. No scleral icterus. No injection or drainage. ENT: Mucous membranes pink and moist. NECK: Trachea midline. Right IJ Vas-Cath in place. CARDIOVASCULAR: Regular rate and rhythm. No murmurs rubs or gallops. RESPIRATORY: No accessory muscle use. Clear to auscultation. Breath sounds equal bilaterally. On NC GASTROINTESTINAL: Abdomen soft, non-tender, nondistended. Reducible R inguinal hernia. Bowel sounds present. MUSCULOSKELETAL: Extremities without clubbing, cyanosis. 2+ pedal edema going up about 1/3 of lower leg bilaterally. NEUROLOGICAL: Awake and alert. No obvious cranial nerve deficits. Motor grossly within normal limits. Normal speech. A/P Assessment and Plan NEURO: Lortab as needed for pain. RESP: Nasal cannula wean as tolerated CV: Hypertension Pulmonary edema F/u 2-D echo ordered on 03/20, Hold ASA /anticoagulants at this time as no symptoms of ACS and patient has symptomatic anemia. Metoprolol 25 mg by mouth every 12 hours. Not a candidate for ETHEL inhibitor due to acute kidney injury. GI: Reducible right inguinal hernia Renal diet as tolerated. FEN/RENAL: Acute kidney injury/ CKD Urinary obstruction Urinary bladder clot s/p cystoscopy Hematuria Continues to have hematuria. Underwent cystoscopy with ureteral stenting on 03/[address] Fine[address] Nephrology started hemodialysis on 03/22. Strict intake output, monitor and replete elecrolytes, follow BUN and creatinine. CBI to be continued per urology. Repeat cystoscopy with fulguration of bleeding sites and urinary bladder on 03/[address] Fine. ID: Leukocytosis Covered empirically with cefepime for possibility of sepsis given his leukocytosis, possible prostatitis. Follow-up blood and urine culture. HEME: Anemia Leukocytosis - lymphocytosis. Anemia with Hgb 6.8. Transfused 3 units of PRBCs on 03/21 and 1 unit PRBCs ordered on 03/22 hemoglobin 7.1 and ongoing hematuria. 2 units PRBCs transfused on 03/22 following cystoscopy for marylou hematuria. 2 units PRBCs transfused on 03/23 ongoing hematuria. Patient does not report any GI bleeding. Hemoccult was negative in the ED. no evidence of iron deficiency or hemolysis. Anemia secondary to hematuria and possible bone metastases. D-dimer was elevated probably secondary to malignancy. Bilateral lower extremity ultrasounds are negative. Hematology consulted and evaluating patient for further anemia workup as well as for metastatic disease. Given DDAVP 20 mcg IV on 03/22 4 suspected platelet dysfunction secondary to uremia and ongoing hematuria. ENDO: Euglycemic PROPH: Protonix 40 g IV daily for stress ulcer prophylaxis. SCDs for DVT prophylaxis. Hold on pharmacologic DVT prophylaxis due to severe anemia. ACCESS: PIV providing adequate access at this time. RIJ Vascath (placed 03/22) Discussed with Dr. Fine, discussed with Dr. Duval. Patient is not getting any heparin with hemodialysis per my discussion with Dr. Duval. Consult palliative care to assist with deciding goals of therapy as patient appears to be refusing further evaluation of metastatic bone disease per documentation by hematology. Will consult and transfer to hospitalist service for further medical management. Patient has not required any transfusions in the last 24 hours. Critical care signing off at this time, please reconsult if needed. Ok Leal MD Mar 25, 2017 10:53
--- NOTE | 2017-03-25 11:41 | PD.ONC.PN ---
Subjective Subjective Remarks Afebrile overnight. "I feel alright." Ate some breakfast. States swelling is a lot better. Objective Data Date Time Temp Pulse Resp B/P Pulse Ox O2 Delivery O2 Flow Rate FiO2 03/25/17 10:00 67 03/25/17 08:00 98.2 68 14 155/68 98 03/25/17 08:00 68 03/25/17 07:48 94 Nasal Cannula 5.00 03/25/17 07:00 94 Nasal Cannula 6.00 03/25/17 06:00 77 03/25/17 04:00 98.3 75 20 151/67 100 03/25/17 04:00 75 03/25/17 03:44 100 Venturi Mask 03/25/17 02:00 75 03/25/17 01:30 93 Nasal Cannula 6.00 03/25/17 00:00 83 03/25/17 00:00 95 Nasal Cannula 4.00 03/25/17 00:00 98.2 83 26 154/68 92 03/24/17 22:00 74 03/24/17 20:00 81 03/24/17 20:00 97.5 81 19 147/71 99 03/24/17 19:30 99 Nasal Cannula 3.00 03/24/17 19:28 100 Nasal Cannula 3.00 03/24/17 19:00 95 Nasal Cannula 4.00 03/24/17 18:00 74 03/24/17 16:00 71 03/24/17 16:00 97.8 71 14 158/72 97 03/24/17 14:18 97.6 70 19 160/74 100 03/24/17 14:03 97.5 72 16 164/72 98 03/24/17 14:00 69 03/24/17 12:00 66 03/24/17 12:00 98.1 66 8 156/72 98 03/25/17 03/25/17 03/25/17 07:00 15:00 23:00 Intake Total 627 ml Balance 627 ml Result Diagram: 03/25/1743903/25/17439 Laboratory Results Laboratory Tests Test 03/25/17 04:40 White Blood Count 20.1 TH/MM3 Red Blood Count 3.40 MIL/MM3 Hemoglobin 9.6 GM/DL Hematocrit 29.0 % Mean Corpuscular Volume 85.4 FL Mean Corpuscular Hemoglobin 28.3 PG Mean Corpuscular Hemoglobin 33.1 % Concent Red Cell Distribution Width 15.9 % Platelet Count 142 TH/MM3 Mean Platelet Volume 8.2 FL Neutrophils (%) (Auto) % Lymphocytes (%) (Auto) % Monocytes (%) (Auto) % Eosinophils (%) (Auto) % Basophils (%) (Auto) % Neutrophils # (Auto) TH/MM3 Lymphocytes # (Auto) TH/MM3 Monocytes # (Auto) TH/MM3 Eosinophils # (Auto) TH/MM3 Basophils # (Auto) TH/MM3 CBC Comment AUTO DIFF Differential Total Cells 100 Counted Neutrophils % (Manual) 55 % Lymphocytes % 29 % Monocytes % 6 % Eosinophils % 9 % Basophils % 1 % Neutrophils # (Manual) 11.1 TH/MM3 Differential Comment FINAL DIFF MANUAL Platelet Estimate NORMAL Platelet Morphology Comment NORMAL Basophilic Stippling FAINT Sodium Level 137 MEQ/L Potassium Level 3.9 MEQ/L Chloride Level 95 MEQ/L Carbon Dioxide Level 31.4 MEQ/L Anion Gap 11 MEQ/L Blood Urea Nitrogen 85 MG/DL Creatinine 11.76 MG/DL Estimat Glomerular Filtration 4 ML/MIN Rate Random Glucose 101 MG/DL Calcium Level 7.7 MG/DL Administered Medications Medications (Trade) Dose Ordered Sig/Nasreen Route PRN Reason Start Time Stop Time Status Last Admin Dose Admin Sodium Chloride (NS Flush) 2 ml BID IV FLUSH 03/20/17 21:00 03/25/17 07:24 Morphine Sulfate (Morphine Inj) 2 mg Q2H PRN IV PUSH PAIN 6-10 03/20/17 18:30 03/23/17 15:43 Pantoprazole Sodium (Protonix Inj) 40 mg DAILY IV 03/21/17 09:00 03/25/17 08:59 Ondansetron HCl (Zofran Inj) 4 mg Q6H PRN IV NAUSEA OR VOMITING 03/20/17 18:15 03/23/17 17:52 Miscellaneous Information 1 Q361D XX 03/20/17 18:15 03/20/17 21:46 Chlorhexidine Gluconate (Chlorhexidine 2% Cloth) 3 pack Taper DAILY@04 TOP 03/21/17 04:00 03/17/18 03:59 03/25/17 04:10 Senna/Docusate Sodium (Negin-Colace) 1 tab BID PO 03/20/17 21:00 03/25/17 09:02 Lactulose 30 ml 30 ml DAILY PRN PO SEVERE CONSITIPATION 03/20/17 18:15 03/25/17 08:59 Cefepime HCl/ Sodium Chloride (Maxipime Inj/NS Inj) 100 ml @ 200 mls/hr Q24H IV 03/21/17 00:00 03/24/17 23:22 Metoprolol Tartrate (Lopressor) 25 mg Q12HR PO 03/21/17 02:45 03/25/17 09:01 Calcium Acetate 667 mg 667 mg TID PO 03/21/17 18:00 03/25/17 09:02 Sodium Bicarbonate 150 meq/Dextrose 1,150 ml @ 42 mls/hr Q24H IV 03/21/17 16:00 03/25/17 02:57 Sodium Chloride (NS 1000 ml Inj) 1,000 ml @ 0 mls/hr Q0M PRN IV For Prime & Rinse Back 03/22/17 11:58 03/23/17 08:47 Heparin Sodium (Porcine) (Heparin Inj) UNSCH PRN .XX WITH DIALYSIS 03/22/17 12:00 03/23/17 08:47 Gentamicin Sulfate (Gentamicin (Dialysis) Inj) 20 mg UNSCH PRN IV WITH DIALYSIS 03/22/17 12:00 03/23/17 08:47 Epoetin Hermes 39591 units 10,000 units UNSCH PRN IV WITH DIALYSIS 03/22/17 12:00 03/22/17 15:53 Aminocaproic Acid/ Sodium Chloride (Amicar Inj/NS Irr Bag) 3,012 ml @ 125.5 mls/ hr Q24H IRRIGATION 03/22/17 13:30 03/25/17 06:46 Cholecalciferol (Vitamin D3) 5,000 units DAILY PO 03/23/17 09:00 03/25/17 09:01 Hydralazine HCl 20 mg 20 mg Q2HR PRN IV PUSH SBP greater than 160mm Hg 03/23/17 16:30 03/24/17 18:04 Sodium Chloride (NS Irr Bag) 3,000 ml @ 125.5 mls/ hr Q24H IRRIGATION 03/23/17 17:00 03/24/17 19:30 Objective Remarks GENERAL: Middle aged male, supine in bed in nad SKIN: Warm and dry. HEAD: Normocephalic. EYES: No injection or drainage. NECK: Supple, trachea midline. CARDIOVASCULAR: Regular rate and rhythm RESPIRATORY: anterior marinelli clear, on 5L O2 via NC GASTROINTESTINAL: Abdomen soft, non-tender, nondistended. EXTREMITIES: No cyanosis. 2+ pitting edema, ble NEUROLOGICAL: No obvious focal deficit. Awake, alert, and oriented x3. Assessment/Plan Problem List: (1) Bladder mass Status: Acute Plan: 03/25: does not want biopsy at this time. continue supportive care, pain management. PSA elevated CT ab/pelvis: + bladder mass with bony mets. CT chest: bilateral pleural effusions. + bony mets to thoracic vertebra, ribs, left scapula (2) Anemia Status: Acute Plan: --transfuse as needed --hemoccult negative --keren negative --no sign of hemolysis. --slightly elevated retic count, no sign of iron deficiency Assessment 61y/o male admitted with ARF, CT shows possible bladder mass and bony mets + elevated PSA. Attending Statement no new c/o Creatinine remains high. On HD will follow. Problem Qualifiers (1) Anemia: Qualified Code: D64.9 - Anemia, unspecified type Raquel Stephens Mar 25, 2017 11:41 Cam Arceo MD Mar 25, 2017 12:36
[2017-03-25] MEDS: GENTAMICIN SULFATE (DIALYSIS USE ONLY) 20 MG/2 ML VIAL IV PRN (14:06)
[2017-03-25] MEDS: EPOETIN ALFA 10,000 UNITS/ML VIAL IV PRN (14:06)
[2017-03-25] MEDS: SODIUM CHLOR 0.9% 1000 ML INJ 1,000 ML IV PRN (14:07)
--- NOTE | 2017-03-25 16:20 | PD.CONS ---
Consult Service Palliative Care Consult Requested By Dr. Leal . Primary Care Physician No Primary Care Physician . Reason for Consultation a. To assist with evaluation and management of symptoms including: Dyspnea, fatigue/weakness b. To assist medical decision maker(s) with: better understanding of current medical conditions; weighing benefits/burdens of medical treatment options; making medical treatment decisions. . HPI History of Present Illness This 61-year-old male, with a past history of hypertension, presented to the emergency department on 03/20/17 after 3 weeks of gradually worsening fatigue and weakness, and a few days of worsening dyspnea. The patient also had noted a weight loss of up to 20 pounds over the last few months, and had noticed some muscle wasting and global weakness. He had not been noticing any signs of GI blood loss or any hematuria. In the emergency department, findings included: * Alert, weak * Temp 97.6, pulse 87, respirations 16, blood pressure 174/86, oxygen saturation 94% on room air * White count 29.3, hemoglobin 6.8 * Sodium 1:30, creatinine 21.0, CO2 was 14, and potassium 4.4 * BNP 3988 * Albumin 3.2 * Troponin 0.2 * Chest x-ray with signs of pulmonary edema * Ultrasound with bilateral moderate hydronephrosis The patient was admitted and preparation was made for dialysis. By the following day, his PSA level was noted to be 83, and CT scans of the chest, abdomen, and pelvis were completed. These scans revealed pleural effusions, a bladder mass (which later turned out to be clot), hydronephrosis, and multiple apparent bony metastases. Nephrology saw the patient and initiated dialysis. Urology evaluated the patient, performed cystoscopy, placed bilateral ureteral stents, did a fulguration, and now has continuous bladder irrigation in progress. The irrigant is still pink from the bladder. The patient has not been having pain issues, with the exception of feeling some discomfort from the bladder irrigation. Oncology evaluated the patient. Up to this point in time, the patient has been declining to have any biopsy done to confirm the suspicion of prostate cancer. The patient tells me that he would wait up to 2 months to see if his "kidneys wake up and start working again," but that he likely would not continue dialysis beyond that timeframe. He says he does not want a biopsy to confirm his possible prostate cancer until the question of renal function is answered. Palliative Care was consulted to assist with symptom management, and to enter into discussions with the patient and family regarding the current illnesses, the prognosis, and the benefits and burdens of future evaluation and treatment choices. . Function/Cognitive Trajectory The patient was living alone, and was functioning independently prior to this admission. . Review of Systems Constitutional: COMPLAINS OF: Weight loss Endocrine: DENIES: Polyuria Eyes: DENIES: Eye inflammation Ears, nose, mouth, throat: DENIES: Epistaxis Respiratory: COMPLAINS OF: Cough, Shortness of breath Cardiovascular: COMPLAINS OF: Lower Extremity Edema, DENIES: Chest pain, Syncope Gastrointestinal: DENIES: Bloody stools, Diarrhea, Nausea, Vomiting, Vomiting blood Genitourinary: COMPLAINS OF: Hematuria (began after admission) Musculoskeletal: DENIES: Joint Swelling, Back pain Integumentary: DENIES: Rash Hematologic/Lymphatics: DENIES: Bruising Immunologic/Allergic: DENIES: Urticaria Neurologic: DENIES: Seizures, Speech Problems Psychiatric: DENIES: Hallucinations, Agitation Past Family Social History Coded Allergies: No Known Allergies (Verified , 03/20/17) Past Medical History * Obstructive uropathy, with renal failure * Apparent metastatic cancer, with bony metastases on scan, moderately elevated PSA, suspected prostate cancer * Persistent hematuria * Anemia * Weakness, weight loss, debility . Past Surgical History Skin lesions removed Bilateral ureteral stents 03/23/17 Cystoscopy with fulguration 03/24/17 . Current Medications Medications (Trade) Dose Ordered Sig/Nasreen Route Start Time Stop Time Status Last Admin (NS Flush) 2 ml UNSCH PRN IV FLUSH 03/20/17 18:15 (NS Flush) 2 ml BID IV FLUSH 03/20/17 21:00 03/25/17 07:24 (Tylenol) 650 mg Q6H PRN PO 03/20/17 18:15 ([place] 5-325 Mg) 1 tab Q4H PRN PO 03/20/17 18:15 (Morphine Inj) 2 mg Q2H PRN IV PUSH 03/20/17 18:30 03/23/17 15:43 (Protonix Inj) 40 mg DAILY IV 03/21/17 09:00 03/25/17 08:59 (Zofran Inj) 4 mg Q6H PRN IV 03/20/17 18:15 03/23/17 17:52 Miscellaneous Information 1 Q361D XX 03/20/17 18:15 03/20/17 21:46 (Chlorhexidine 2% Cloth) 3 pack Taper DAILY@04 TOP 03/21/17 04:00 03/17/18 03:59 03/25/17 04:10 (Chlorhexidine 2% Cloth) 3 pack UNSCH PRN TOP 03/20/17 18:15 (Negin-Colace) 1 tab BID PO 03/20/17 21:00 03/25/17 09:02 (Milk Of Yaritza Liforeign) 30 ml Q12H PRN PO 03/20/17 18:15 (Senokot) 17.2 mg Q12H PRN PO 03/20/17 18:15 (Dulcolax Supp) 10 mg DAILY PRN RECTAL 03/20/17 18:15 Lactulose 30 ml 30 ml DAILY PRN PO 03/20/17 18:15 03/25/17 08:59 (Maxipime Inj/NS Inj) 100 ml @ 200 mls/hr Q24H IV 03/21/17 00:00 03/24/17 23:22 (Lopressor) 25 mg Q12HR PO 03/21/17 02:45 03/25/17 09:01 Calcium Acetate 667 mg 667 mg TID PO 03/21/17 18:00 03/25/17 09:02 Sodium Bicarbonate 150 meq/Dextrose 1,150 ml @ 42 mls/hr Q24H IV 03/21/17 16:00 03/25/17 02:57 Sodium Chloride 1,000 ml @ 0 mls/hr Q0M PRN IV 03/22/17 11:58 03/25/17 14:07 Sodium Chloride 1,000 ml @ 200 mls/hr Q5H PRN IV 03/22/17 11:58 (NS 1000 ml Inj) 1,000 ml @ 0 mls/hr Q0M PRN IV 03/22/17 11:58 (Mannitol Inj) 12.5 gm UNSCH PRN IV 03/22/17 12:00 (Albumin 25% Inj) 25 gm UNSCH PRN IV 03/22/17 12:00 (NS Flush) 5 ml UNSCH PRN IV FLUSH 03/22/17 12:00 (Heparin Inj) UNSCH PRN .XX 03/22/17 12:00 03/23/17 08:47 (Gentamicin (Dialysis) Inj) 20 mg UNSCH PRN IV 03/22/17 12:00 03/25/17 14:06 (Zofran Inj) 4 mg UNSCH PRN IV 03/22/17 12:00 (Tylenol) 650 mg UNSCH PRN PO 03/22/17 12:00 (Benadryl) 25 mg UNSCH PRN PO 03/22/17 12:00 (Nitrostat Sl) 0.4 mg UNSCH PRN SL 03/22/17 12:00 (Catapres) 0.1 mg UNSCH PRN PO 03/22/17 12:00 (Epogen Inj) 10,000 units UNSCH PRN IV 03/22/17 12:00 03/25/17 14:06 Gelatin 1 foam 1 foam UNSCH PRN TOP 03/22/17 12:00 Aminocaproic Acid 3000 mg/Sodium Chloride 3,012 ml @ 125.5 mls/ hr Q24H IRRIGATION 03/22/17 13:30 03/25/17 06:46 (Diprivan 1000 Mg/100ml Inj) 100 ml @ 0 mls/hr TITRATE IV 03/22/17 16:00 (Vitamin D3) 5,000 units DAILY PO 03/23/17 09:00 03/25/17 09:01 Hydralazine HCl 20 mg 20 mg Q2HR PRN IV PUSH 03/23/17 16:30 03/24/17 18:04 (NS Irr Bag) 3,000 ml @ 125.5 mls/ hr Q24H IRRIGATION 03/23/17 17:00 03/24/17 19:30 (Narcan Inj) 0.4 mg Q2M PRN IV PUSH 03/23/17 17:00 Family History The patient's father at age 72 after complications of a stroke, hip fracture, and diabetes. His mother at age 68 with COPD. The patient's maternal grandfather had prostate cancer. . Substance Use Tobacco: Long-term cigarette smoker, less than half pack per day in recent months Alcohol: Several beers per day until he quit the last few months. Prescription med abuse: None Illicits: None . Psychosocial History The patient was born in the [facility], and has lived in this area for the past 8 years or so. He has been living by himself, independently. The patient was once, . He has 2 sons and 1 daughter, and all 3 live in this area. 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 . Spiritual/Cultural Factors The patient has a Taoist background, but is not affiliated with any particular orthodoxy or clergy. He does not want aircraft skin burnisher visits during this hospitalization. . Living Will: Never completed Health Care Surrogate: Never completed Durable Power of Emr Implementation Specialist: Never completed Health Care Surrogate(s): Patient is now naming his daughter Lisa and son Frank as co-HCS. . Today's verbally stated goals: The patient says he does not want long-term dialysis. He is willing to "give my kidneys up to 2 months to wake up and start working again" while he continues dialysis, but he believes he may stop dialysis at that point rather than to continue it long-term. Thus far, he has declined biopsy to document whether this is prostate cancer, as he feels he does not want any particular treatment at this time....at at least until the renal failure question is answered. . Family/friends goals: The patient's daughter Christin Is present and supports the patient's goals and wishes. . Ethical and Legal Issues There are no ethical issues that would impact his care or decision-making at this time. The patient says he does not want long-term dialysis. He is willing to "give my kidneys up to 2 months to wake up and start working again" while he continues dialysis, but he believes he may stop dialysis at that point rather than to continue it long-term. Thus far, he has declined biopsy to document whether this is prostate cancer, as he feels he does not want any particular treatment at this time....at at least until the renal failure question is answered. . Physical Exam Vital Signs Date Time Temp Pulse Resp B/P Pulse Ox O2 Delivery O2 Flow Rate FiO2 03/25/17 14:00 66 03/25/17 12:00 63 03/25/17 12:00 98.1 63 14 148/67 98 03/25/17 10:00 67 03/25/17 08:00 98.2 68 14 155/68 98 03/25/17 08:00 68 03/25/17 07:48 94 Nasal Cannula 5.00 03/25/17 07:00 94 Nasal Cannula 6.00 03/25/17 06:00 77 03/25/17 04:00 98.3 75 20 151/67 100 03/25/17 04:00 75 03/25/17 03:44 100 Venturi Mask 03/25/17 02:00 75 03/25/17 01:30 93 Nasal Cannula 6.00 03/25/17 00:00 83 03/25/17 00:00 95 Nasal Cannula 4.00 03/25/17 00:00 98.2 83 26 154/68 92 03/24/17 22:00 74 03/24/17 20:00 81 03/24/17 20:00 97.5 81 19 147/71 99 03/24/17 19:30 99 Nasal Cannula 3.00 03/24/17 19:28 100 Nasal Cannula 3.00 03/24/17 19:00 95 Nasal Cannula 4.00 03/24/17 18:00 74 03/24/17 16:00 71 03/24/17 16:00 97.8 71 14 158/72 97 03/24/17 03/25/17 19:00 07:00 Intake Total 488 ml 627 ml Output Total 2400 ml 2700 ml Balance -1912 ml -2073 ml Intake Oral 15 ml 240 ml IV Total 373 ml 387 ml Other 100 ml Output Urine Total 2400 ml 2700 ml # Bowel Movements 0 Exam CONSTITUTIONAL/GENERAL: This is a weak appearing, thin patient, in no apparent distress. TUBES/LINES/DRAINS: SCDs, Vas-Cath, Pollock/irrigation SKIN: No jaundice, rashes, or lesions. Ecchymoses on upper extremities. No wounds seen anteriorly. Skin temperature appropriate. Not diaphoretic. HEAD: Atraumatic. Normocephalic. EYES: Pupils equal and round and reactive. Extraocular motions intact. No scleral icterus. No injection or drainage. Fundi not examined. ENT: Hearing grossly normal. Nose without bleeding or purulent drainage. Throat without visible erythema, exudates, masses, or lesions. NECK: Trachea midline. Supple, nontender. No palpable thyroid enlargement or nodularity. CARDIOVASCULAR: Regular rate and rhythm without murmurs, gallops, or rubs. No JVD. Peripheral pulses symmetric. RESPIRATORY/CHEST: Symmetric, unlabored respirations. Clear to auscultation. Breath sounds equal bilaterally. A few scattered rhonchi GASTROINTESTINAL: Abdomen soft, non-tender, nondistended. No hepato-splenomegaly , or palpable masses. No guarding. Bowel sounds present. GENITOURINARY: Pollock/irrigation catheter in place MUSCULOSKELETAL: Extremities without clubbing, cyanosis, or edema. No joint tenderness or effusion noted. No calf tenderness. No mottling or clubbing. LYMPHATICS: No palpable cervical or supraclavicular adenopathy. NEUROLOGICAL: Awake and alert. Motor and sensory grossly within normal limits. Follows commands. Cognitively sharp. Moves all extremities. PSYCHIATRIC: No obvious anxiety/depression. no apparent hallucinations or other psychotic thought process. . Diagnostic Tests Laboratory Laboratory Tests Test 03/22/17 03/22/17 03/23/17 03/23/17 19:38 20:22 04:24 17:38 White Blood Count 18.1 TH/MM3 17.5 TH/MM3 16.8 TH/MM3 (4.0-11.0) (4.0-11.0) (4.0-11.0) Red Blood Count 2.53 MIL/MM3 2.87 MIL/MM3 2.62 MIL/MM3 (4.50-5.90) (4.50-5.90) (4.50-5.90) Hemoglobin 7.4 GM/DL 8.4 GM/DL 7.5 GM/DL (13.0-17.0) (13.0-17.0) (13.0-17.0) Hematocrit 21.3 % 24.1 % 22.5 % (39.0-51.0) (39.0-51.0) (39.0-51.0) Mean Corpuscular Volume 84.4 FL 83.9 FL 85.9 FL (80.0-100.0) (80.0-100.0) (80.0-100.0) Mean Corpuscular Hemoglobin 29.1 PG 29.3 PG 28.5 PG (27.0-34.0) (27.0-34.0) (27.0-34.0) Mean Corpuscular Hemoglobin 34.5 % 35.0 % 33.2 % Concent (32.0-36.0) (32.0-36.0) (32.0-36.0) Red Cell Distribution Width 14.4 % 14.5 % 14.2 % (11.6-17.2) (11.6-17.2) (11.6-17.2) Platelet Count 145 TH/MM3 126 TH/MM3 113 TH/MM3 (150-450) (150-450) (150-450) Mean Platelet Volume 8.3 FL 8.5 FL 8.2 FL (7.0-11.0) (7.0-11.0) (7.0-11.0) Crossmatch Leukocyte-Reduced Red Blood Cells Blood Bank Comment Neutrophils (%) (Auto) 57.2 % (16.0-70.0) Lymphocytes (%) (Auto) 28.7 % (9.0-44.0) Monocytes (%) (Auto) 6.5 % (0.0-8.0) Eosinophils (%) (Auto) 7.3 % (0.0-4.0) Basophils (%) (Auto) 0.3 % (0.0-2.0) Neutrophils # (Auto) 10.0 TH/MM3 (1.8-7.7) Lymphocytes # (Auto) 5.0 TH/MM3 (1.0-4.8) Monocytes # (Auto) 1.1 TH/MM3 (0-0.9) Eosinophils # (Auto) 1.3 TH/MM3 (0-0.4) Basophils # (Auto) 0.1 TH/MM3 (0-0.2) CBC Comment AUTO DIFF Differential Comment AUTO DIFF CONFIRMED Smudge Cells PRESENT Platelet Estimate LOW (NORMAL) Platelet Morphology Comment NORMAL (NORMAL) Sodium Level 133 MEQ/L 135 MEQ/L (136-145) (136-145) Potassium Level 4.0 MEQ/L 3.6 MEQ/L (3.5-5.1) (3.5-5.1) Chloride Level 94 MEQ/L 91 MEQ/L (98-107) (98-107) Carbon Dioxide Level 21.9 MEQ/L 33.0 MEQ/L (21.0-32.0) (21.0-32.0) Anion Gap 17 MEQ/L (5-15) 11 MEQ/L (5-15) Blood Urea Nitrogen 128 MG/DL 81 MG/DL (7-18) (7-18) Creatinine 15.32 MG/DL 10.52 MG/DL (0.60-1.30) (0.60-1.30) Estimat Glomerular Filtration 3 ML/MIN (>89) 5 ML/MIN (>89) Rate Random Glucose 127 MG/DL 368 MG/DL (74-106) (74-106) Calcium Level 7.1 MG/DL 6.3 MG/DL (8.5-10.1) (8.5-10.1) Protein Corrected Calcium 8.2 MG/DL 7.3 MG/DL (8.5-10.1) (8.5-10.1) Phosphorus Level 8.6 MG/DL (2.5-4.9) Total Bilirubin 0.5 MG/DL (0.2-1.0) Aspartate Amino Transf 11 U/L (15-37) (AST/SGOT) Alanine Aminotransferase 10 U/L (12-78) (ALT/SGPT) Alkaline Phosphatase 46 U/L (45-117) Total Protein 5.1 GM/DL 5.0 GM/DL (6.4-8.2) (6.4-8.2) Albumin 2.2 GM/DL (3.4-5.0) 25-Hydroxy Vitamin D Total 7.0 ng/ML (30-100) Parathyroid Hormone (Intact) 323.1 PG/ML (12.4-76.8) Hepatitis A IgM Antibody NEGATIVE (NEGATIVE) Hepatitis B Surface Antigen NEGATIVE (NEGATIVE) Hepatitis B Core IgM Antibody NEGATIVE (NEGATIVE) Hepatitis C Antibody NEGATIVE (NEGATIVE) Test 03/23/17 03/23/17 03/24/17 03/24/17 21:23 23:27 03:38 09:45 White Blood Count 18.3 TH/MM3 16.3 TH/MM3 (4.0-11.0) (4.0-11.0) Red Blood Count 2.72 MIL/MM3 2.74 MIL/MM3 (4.50-5.90) (4.50-5.90) Hemoglobin 7.8 GM/DL 7.8 GM/DL (13.0-17.0) (13.0-17.0) Hematocrit 23.3 % 23.4 % (39.0-51.0) (39.0-51.0) Mean Corpuscular Volume 85.7 FL 85.5 FL (80.0-100.0) (80.0-100.0) Mean Corpuscular Hemoglobin 28.7 PG 28.7 PG (27.0-34.0) (27.0-34.0) Mean Corpuscular Hemoglobin 33.5 % 33.5 % Concent (32.0-36.0) (32.0-36.0) Red Cell Distribution Width 14.4 % 14.6 % (11.6-17.2) (11.6-17.2) Platelet Count 118 TH/MM3 118 TH/MM3 (150-450) (150-450) Mean Platelet Volume 8.6 FL 8.6 FL (7.0-11.0) (7.0-11.0) Prothrombin Time 14.0 SEC 13.2 SEC (9.8-11.6) (9.8-11.6) Prothromb Time International 1.3 RATIO 1.2 RATIO Ratio Activated Partial 37.6 SEC 35.7 SEC Thromboplast Time (24.3-30.1) (24.3-30.1) Fibrinogen 374 mg/dL (227-377) Blood Type O NEGATIVE O NEGATIVE Antibody Screen NEGATIVE Crossmatch Leukocyte-Reduced Leukocyte-Reduced Red Blood Red Blood Cells Cells Blood Bank Comment Neutrophils (%) (Auto) % (16.0-70.0) Lymphocytes (%) (Auto) % (9.0-44.0) Monocytes (%) (Auto) % (0.0-8.0) Eosinophils (%) (Auto) % (0.0-4.0) Basophils (%) (Auto) % (0.0-2.0) Neutrophils # (Auto) TH/MM3 (1.8-7.7) Lymphocytes # (Auto) TH/MM3 (1.0-4.8) Monocytes # (Auto) TH/MM3 (0-0.9) Eosinophils # (Auto) TH/MM3 (0-0.4) Basophils # (Auto) TH/MM3 (0-0.2) CBC Comment AUTO DIFF Differential Total Cells 100 Counted Neutrophils % (Manual) 53 % (16-70) Band Neutrophils % 1 % (0-6) Lymphocytes % 38 % (9-44) Monocytes % 2 % (0-8) Eosinophils % 6 % (0-4) Neutrophils # (Manual) 8.8 TH/MM3 (1.8-7.7) Differential Comment FINAL DIFF MANUAL Smudge Cells PRESENT Platelet Estimate LOW (NORMAL) Platelet Morphology Comment NORMAL (NORMAL) Sodium Level 137 MEQ/L (136-145) Potassium Level 3.7 MEQ/L (3.5-5.1) Chloride Level 97 MEQ/L (98-107) Carbon Dioxide Level 30.0 MEQ/L (21.0-32.0) Anion Gap 10 MEQ/L (5-15) Blood Urea Nitrogen 84 MG/DL (7-18) Creatinine 11.42 MG/DL (0.60-1.30) Estimat Glomerular Filtration 5 ML/MIN (>89) Rate Random Glucose 118 MG/DL (74-106) Calcium Level 7.3 MG/DL (8.5-10.1) Protein Corrected Calcium 8.5 MG/DL (8.5-10.1) Total Bilirubin 0.4 MG/DL (0.2-1.0) Aspartate Amino Transf 15 U/L (15-37) (AST/SGOT) Alanine Aminotransferase 9 U/L (12-78) (ALT/SGPT) Alkaline Phosphatase 53 U/L (45-117) Total Protein 4.9 GM/DL (6.4-8.2) Albumin 2.1 GM/DL (3.4-5.0) Test 03/24/17 03/24/17 03/25/17 09:47 11:18 04:40 Hemoglobin 9.5 GM/DL 9.6 GM/DL (13.0-17.0) (13.0-17.0) Blood Bank Comment White Blood Count 20.1 TH/MM3 (4.0-11.0) Red Blood Count 3.40 MIL/MM3 (4.50-5.90) Hematocrit 29.0 % (39.0-51.0) Mean Corpuscular Volume 85.4 FL (80.0-100.0) Mean Corpuscular Hemoglobin 28.3 PG (27.0-34.0) Mean Corpuscular Hemoglobin 33.1 % Concent (32.0-36.0) Red Cell Distribution Width 15.9 % (11.6-17.2) Platelet Count 142 TH/MM3 (150-450) Mean Platelet Volume 8.2 FL (7.0-11.0) Neutrophils (%) (Auto) % (16.0-70.0) Lymphocytes (%) (Auto) % (9.0-44.0) Monocytes (%) (Auto) % (0.0-8.0) Eosinophils (%) (Auto) % (0.0-4.0) Basophils (%) (Auto) % (0.0-2.0) Neutrophils # (Auto) TH/MM3 (1.8-7.7) Lymphocytes # (Auto) TH/MM3 (1.0-4.8) Monocytes # (Auto) TH/MM3 (0-0.9) Eosinophils # (Auto) TH/MM3 (0-0.4) Basophils # (Auto) TH/MM3 (0-0.2) CBC Comment AUTO DIFF Differential Total Cells 100 Counted Neutrophils % (Manual) 55 % (16-70) Lymphocytes % 29 % (9-44) Monocytes % 6 % (0-8) Eosinophils % 9 % (0-4) Basophils % 1 % (0-2) Neutrophils # (Manual) 11.1 TH/MM3 (1.8-7.7) Differential Comment FINAL DIFF MANUAL Platelet Estimate NORMAL (NORMAL) Platelet Morphology Comment NORMAL (NORMAL) Basophilic Stippling FAINT (NORMAL) Sodium Level 137 MEQ/L (136-145) Potassium Level 3.9 MEQ/L (3.5-5.1) Chloride Level 95 MEQ/L (98-107) Carbon Dioxide Level 31.4 MEQ/L (21.0-32.0) Anion Gap 11 MEQ/L (5-15) Blood Urea Nitrogen 85 MG/DL (7-18) Creatinine 11.76 MG/DL (0.60-1.30) Estimat Glomerular Filtration 4 ML/MIN (>89) Rate Random Glucose 101 MG/DL (74-106) Calcium Level 7.7 MG/DL (8.5-10.1) Result Diagram: 03/25/17 0440 03/25/17 0440 Imaging Last Impressions Chest X-Ray 03/22/17 0000 Signed Impressions: Service Date/Time: Wednesday, March 22, 2017 16:05 - CONCLUSION: 1. Diffuse increased interstitial markings likely representing pulmonary edema. There is prominence of the central pulmonary vessels. 2. Hazy density bases with silhouetting hemidiaphragms from superimposed areas of consolidation/ atelectasis and effusions. Art Olivera MD Chest CT 03/21/17 0000 Signed Impressions: Service Date/Time: Tuesday, March 21, 2017 13:03 - CONCLUSION: 1. Moderate to large bilateral pleural effusions with associated compressive atelectasis in the lower lobes. 2. Bilateral patchy somewhat nodular groundglass opacities with upper lobe predominance likely related to positive fluid balance. 3. Diffuse sclerotic metastasis to the thoracic vertebra, ribs, and left scapula. 4. Bilateral moderate to severe hydronephrosis, incompletely imaged on this exam. This is similar to yesterday's ultrasound exam. 5. 3.6 cm coarsely calcified left thyroid nodule. This can be further evaluated with thyroid ultrasound as indicated. Ferdinand Fisher MD Abdomen/Pelvis CT 03/21/17 0000 Signed Impressions: Service Date/Time: Tuesday, March 21, 2017 13:03 - CONCLUSION: Large bladder mass with bone metastases. Small bilateral pleural effusions. Minimal retroperitoneal adenopathy. Damien Peña MD FACR Renal Ultrasound 03/20/17 0000 Signed Impressions: Service Date/Time: Monday, March 20, 2017 17:46 - CONCLUSION: 1. Moderate bilateral hydronephrosis. Distended bladder. Enlarged prostate. Sebastián Greer MD Lower Extremity Ultrasound 03/20/17 0000 Signed Impressions: Service Date/Time: Monday, March 20, 2017 17:30 - CONCLUSION: Normal examination. Sebastián Greer MD Procedures Cystoscopy, bilateral ureteral stents 03/23/17 Cystoscopy with fulguration 03/24/17 . Patient/Family Conference Present at Family Conference: Daughter, Christin Ely . Family Conference Time (mins): 43 Family Conference Location: Bedside Issues Discussed: * Palliative care role, purpose, approach * Hospice care role, purpose, approach * Additional medical, psychosocial, and spiritual history * Patients general health, functional status, and cognitive changes in the months leading up to the current hospitalization * Patient/family understanding of the current medical problems * Patient/family understanding of prognosis * Patients goals of care as best understood from advance directives and/or conversations and/or values * Current medical treatment options and benefits/burdens of those options * Likely scenarios comparing ongoing aggressive care with a transition to comfort measures only * Questions answered to the best of my ability * Palliative care contact information provided The patient says he does not want long-term dialysis. He is willing to "give my kidneys up to 2 months to wake up and start working again" while he continues dialysis, but he believes he may stop dialysis at that point rather than to continue it long-term. Thus far, he has declined biopsy to document whether this is prostate cancer, as he feels he does not want any particular treatment at this time....at at least until the renal failure question is answered. . 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 Spiritual: The patient has a Taoist background, but is not affiliated with any particular orthodoxy or clergy. He does not want aircraft skin burnisher visits during this hospitalization. Legal: The patient has capacity for decision-making at this time. He is designating his daughter Lisa Ely and son Frank Ross has co-HCS. Ethical issues impacting care: None . Important Contacts Daughter: Christin Ely [phone] Son: Frank Ross [phone] . 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 He does have renal failure requiring dialysis at this time , but it is uncertain whether his kidney function will recover. If he elects to stop dialysis before renal function recovery, certainly he is appropriate for hospice services. Depending on further workup of his malignancy, he would be eligible for hospice services from that perspective also. . Code Status: No Code Plan * DO NOT RESUSCITATE, per patient request 03/25/17 * DECISION-MAKING: The patient has capacity for decision-making at this time. He is designating his daughter Lisa Ely and son Frank Ross has co-HCS. * GOALS: The patient requests DNR. The patient says he does not want long-term dialysis. He is willing to "give my kidneys up to 2 months to wake up and start working again" while he continues dialysis, but he believes he may stop dialysis at that point rather than to continue it long-term. He is willing to consider hospice services if he elects to stop dialysis. Thus far, he has declined biopsy to document whether this is prostate cancer, as he feels he does not want any particular treatment at this time....at at least until the renal failure question is answered. * SYMPTOMS: The patient has fatigue and an overall feeling of debility, but he has no pain. His dyspnea has resolved. I have no further medication recommendations at this time. * The patient wants to consider further evaluation and treatment options over the weekend as he talks to his family more; he is undecided about how long he may want to continue dialysis, but is hopeful that his renal function will recover in the upcoming weeks. At this time, he has been refusing any biopsy procedure, but he does understand that biopsy would be required before any specific treatment for his apparent malignancy could be initiated. * Palliative Care will continue to follow the patient during this hospitalization. . Time Spent Total Floor Time (mins): 79 Face to Face Time (mins): 50 >50% Counseling/Coord of Care: Yes (d/w Dr. Leal) Thank you for the opportunity to participate in the care of Mr. Ross. Attestation To help prompt me to consider important information that might be impacting today's encounter and assessment, information from prior notes written by myself or my colleagues may have been "brought forward" into today's note. My signature on this note, however, is an attestation that I personally performed the exam, history, and/or decision-making noted today, and, unless otherwise indicated, the interactions with patient, family, and staff as well as the review of records all occurred today. I also attest that the listed assessment and stated plan reflect my best clinical judgment today based on the combination of historical information, prior notes, and today's exam/ interactions. When time spent is documented, it refers only to time spent today by the signer, or if indicated, combined time spent today by collaborating physician/nurse practitioner. Cesia Gil MD Mar 25, 2017 16:20
[2017-03-25] MEDS: hydrALAZINE HCL 20 MG/ML VIAL IV PUSH PRN (18:56)
--- NOTE | 2017-03-25 22:47 | RADRPT ---
EXAM DATE/TIME: 03/25/2017 22:14 [facility] COMPARISON: CT ABDOMEN & PELVIS W/O CONTRAST, March 21, 2017, 13:03. US KIDNEY/RENAL/BLADDER, March 20, 2017, 17:4 6. INDICATIONS : Obstruction. MEDICAL HISTORY : Dyspnea. Right inguinal hernia. Depression. Joint pain. Bladder mass. Anemia. Hypertension. ETOH abus e. Pulmonary edema. SURGICAL HISTORY : Cystoscope with stent placement. ENCOUNTER: Initial ACUITY: 1 day PAIN SCORE: 0/10 LOCATION: Bilateral flank MEASUREMENTS: RIGHT KIDNEY: 12.6 x 6.2 x 5.8 cm LEFT KIDNEY: 14.5 x 7.1 x 6.1 cm FINDINGS: RIGHT KIDNEY: Renal cortex is normal in thickness and echotexture. No hydronephrosis, stone, or mass. LEFT KIDNEY: The left kidney is hydronephrotic BLADDER: Thickened bladder wall partially decompressed by Pollock. CONCLUSION: Marked hydronephrosis, Grade IV left kidney. There is no hydronephrosis on the right . Markedly thickened bladder wall. Damien Peña MD FACR on March 25, 2017 at 22:44 Board Certified Radiologist. This report was verified electronically.
[2017-03-26] VITALS (15 sets, daily range): BP systolic 121–157; BP diastolic 59–73; PULSE 55–78; RESP 11–27; TEMP 97.7–98.3; O2SAT 90–100
[2017-03-26] MEDS: CEFEPIME INJ 1,000 MG in SODIUM CHLORIDE 0.9% INJ 100 ML IV SCH ×2 (00:12→23:28)
[2017-03-26] MEDS: AMINOCAPROIC ACID INJ 3,000 MG in SODIUM CHLORIDE 0.9% IRR BAG 3,000 ML IRRIGATION SCH ×4 (01:36→22:45)
[2017-03-26] MEDS: CHLORHEXIDINE GLUCONATE 2 % 1 PACK (2 CLOTHS) TOP SCH (01:38)
[2017-03-26] MEDS: MORPHINE SULFATE 8 MG/ML INJ IV PUSH PRN (02:06)
[2017-03-26 04:43] LABS: HEMATOCRIT 30.9 % (39.0-51.0); MEAN CELL VOLUME 86.6 FL (80.0-100.0); MEAN CORPUSCULAR HEMOGLOBIN 28.2 PG (27.0-34.0); MEAN CORPUSCULAR HGB CONC 32.6 % (32.0-36.0); PLATELET COUNT 150 TH/MM3 (150-450); RED BLOOD COUNT 3.57 MIL/MM3 (4.50-5.90); RED CELL DISTRIBUTION WIDTH 15.4 % (11.6-17.2); WHITE BLOOD COUNT 17.7 TH/MM3 (4.0-11.0)
[2017-03-26 04:44] LABS: HEMO FLAGS AUTO DIFF
[2017-03-26 05:29] LABS: EOSINOPHILS 4 % (0-4); NEUTROPHIL # MANUAL DIFF 14.2 TH/MM3 (1.8-7.7); PLATELET ESTIMATE SMEAR LOW (NORMAL); PLATELET MORPHOLOGY NORMAL (NORMAL); POLYS (SEG NEUTROPHILS) 80 % (16-70); SCAN/DIFF FINAL DIFF MANUAL; WBC DIFF SAMPLE 100
[2017-03-26 05:44] LABS: ALKALINE PHOSPHATASE 84 U/L (45-117); ALT (GPT) 11 U/L (12-78); ANION GAP 11 MEQ/L (5-15); AST (GOT) 17 U/L (15-37); BICARBONATE 31.2 MEQ/L (21.0-32.0); BLOOD UREA NITROGEN 47 MG/DL (7-18); CHLORIDE 95 MEQ/L (98-107); GLOMERULAR FILTRATION RATE 7 ML/MIN (>89); POTASSIUM 3.5 MEQ/L (3.5-5.1); SODIUM (NA) 137 MEQ/L (136-145); TOTAL BILIRUBIN ADULT 0.4 MG/DL (0.2-1.0)
[2017-03-26] MEDS: SODIUM CHLORIDE 0.9% FLUSH 10 ML FLUSH IV FLUSH SCH ×2 (08:10→21:00)
[2017-03-26] MEDS: DOCUSATE SODIUM 50 MG/SENNA 8.6 MG TAB PO SCH ×2 (09:00→21:00)
[2017-03-26] MEDS: METOPROLOL TARTRATE 25 MG TAB PO SCH ×2 (09:27→21:25)
[2017-03-26] MEDS: CHOLECALCIFEROL (VIT D3) 5000 UNIT CAP PO SCH (09:27)
[2017-03-26] MEDS: PANTOPRAZOLE SODIUM 40 MG VIAL IV SCH (09:27)
[2017-03-26] MEDS: CALCIUM ACETATE 667 MG CAP PO SCH ×3 (09:27→18:00)
--- NOTE | 2017-03-26 10:25 | HHI.PR ---
Subjective Remarks Follow-up bladder mass/obstruction uropathy/ 03/26/17-patient seen and examined, denies any chest pain or shortness of breath as well as pelvic fully with clear urine CBI running. Renal indices improving. Patient still doesn't want any bladder biopsy performed. Son by the bedside Objective Vitals Vital Signs Date Time Temp Pulse Resp B/P Pulse Ox O2 Delivery O2 Flow Rate FiO2 03/26/17 08:00 68 03/26/17 08:00 97.7 68 27 123/59 90 03/26/17 07:56 93 Nasal Cannula 6.00 03/26/17 07:00 91 Nasal Cannula 6.00 03/26/17 06:00 70 03/26/17 04:00 98.3 72 11 148/67 100 03/26/17 04:00 72 03/26/17 03:25 97 Non-Rebreather 15.00 100 03/26/17 02:00 61 03/26/17 00:00 66 13 140/66 93 03/26/17 00:00 66 03/25/17 22:00 74 03/25/17 21:39 93 Nasal Cannula 4.00 03/25/17 20:00 98.3 78 28 145/65 93 03/25/17 20:00 73 03/25/17 19:00 96 Nasal Cannula 5.00 03/25/17 18:00 75 03/25/17 16:00 72 03/25/17 16:00 98.3 72 19 133/63 96 03/25/17 14:00 66 03/25/17 12:00 63 03/25/17 12:00 98.1 63 14 148/67 98 I/O 03/25/17 03/25/17 03/25/17 03/26/17 03/26/17 03/26/17 07:00 15:00 23:00 07:00 15:00 23:00 Intake Total 627 ml 556 ml 442 ml 413 ml Output Total 1900 ml 3150 ml Balance 627 ml -1344 ml -2708 ml 413 ml Intake Oral 240 ml 200 ml 100 ml 100 ml IV Total 387 ml 356 ml 342 ml 313 ml Output Urine Total 1900 ml 1650 ml Hemodialysis 1500 ml # Bowel Movements 2 1 0 Result Diagram: 03/26/17 0350 03/26/17 0350 Imaging Last Impressions Renal Ultrasound 03/25/17 0000 Signed Impressions: Service Date/Time: Saturday, March 25, 2017 22:14 - CONCLUSION: Marked hydronephrosis, Grade IV left kidney. There is no hydronephrosis on the right. Markedly thickened bladder wall. Damien Peña MD FACR Chest X-Ray 03/22/17 Signed Impressions: Service Date/Time: Wednesday, March 22, 2017 16:05 - CONCLUSION: 1. Diffuse increased interstitial markings likely representing pulmonary edema. There is prominence of the central pulmonary vessels. 2. Hazy density bases with silhouetting hemidiaphragms from superimposed areas of consolidation/ atelectasis and effusions. Art Olivera MD Chest CT 03/21/17 Signed Impressions: Service Date/Time: Tuesday, March 21, 2017 13:03 - CONCLUSION: 1. Moderate to large bilateral pleural effusions with associated compressive atelectasis in the lower lobes. 2. Bilateral patchy somewhat nodular groundglass opacities with upper lobe predominance likely related to positive fluid balance. 3. Diffuse sclerotic metastasis to the thoracic vertebra, ribs, and left scapula. 4. Bilateral moderate to severe hydronephrosis, incompletely imaged on this exam. This is similar to yesterday's ultrasound exam. 5. 3.6 cm coarsely calcified left thyroid nodule. This can be further evaluated with thyroid ultrasound as indicated. Ferdinand Fisher MD Abdomen/Pelvis CT 03/21/17 Signed Impressions: Service Date/Time: Tuesday, March 21, 2017 13:03 - CONCLUSION: Large bladder mass with bone metastases. Small bilateral pleural effusions. Minimal retroperitoneal adenopathy. Damien Peña MD FACR Lower Extremity Ultrasound 03/20/17 0000 Signed Impressions: Service Date/Time: Monday, March 20, 2017 17:30 - CONCLUSION: Normal examination. Sebastián Greer MD Objective Remarks GENERAL: NAD SKIN: Warm and dry. HEAD: Normocephalic. EYES: No scleral icterus. No injection or drainage. NECK: Supple, trachea midline. No JVD or lymphadenopathy. CARDIOVASCULAR: Regular rate and rhythm without murmurs, gallops, or rubs. RESPIRATORY: Breath sounds equal bilaterally. No accessory muscle use. GASTROINTESTINAL: Abdomen soft, non-tender, nondistended. MUSCULOSKELETAL: No cyanosis, or edema. BACK: Nontender without obvious deformity. No CVA tenderness. A/P Problem List: (1) obstructive uropathy, renal failure Status: Acute (2) Bladder mass ICD Code: N32.89 Status: Acute (3) apparent bony metastases, elevated PSA, suspected prostate cancer Status: Acute (4) acute renal failure, on dialysis Status: Acute (5) hypertension Status: Acute (6) Anemia due to acute blood loss ICD Code: D62 Status: Acute Assessment and Plan 61-year-old man with Hypertension Pulmonary edema Continue to Hold ASA /anticoagulants at this time as no symptoms of ACS and patient has symptomatic anemia. Metoprolol 25 mg by mouth every 12 hours. Not a candidate for ETHEL inhibitor due to acute kidney injury. Bladder mass Acute kidney injury/ CKD Urinary obstruction Urinary bladder clot s/p cystoscopy Hematuria Underwent cystoscopy with ureteral stenting on 03/[address] Fine. Currently on hemodialysis since 03/22. Repeat cystoscopy with fulguration of bleeding sites and urinary bladder on 03/24 CBI to be continued per urology. Patient is refusing further evaluation of metastatic bone disease per documentation by hematology. Appreciate input from palliative care medicine Leukocytosis Covered empirically with cefepime for possibility of sepsis given his leukocytosis, possible prostatitis. Follow-up blood and urine culture. Anemia of acute blood loss Leukocytosis - lymphocytosis. Transfused 8 units of PRBCs since admission Anemia secondary to hematuria and possible bone metastases. Appreciate input from Hematology consulted and evaluating patient for further anemia workup as well as for metastatic disease. Given DDAVP 20 mcg IV on 03/22 4 suspected platelet dysfunction secondary to uremia and ongoing hematuria. PROPH: Protonix 40 g IV daily for stress ulcer prophylaxis. SCDs for DVT prophylaxis. Hold on pharmacologic DVT prophylaxis due to severe anemia. Rene Santiago MD Mar 26, 2017 10:24
[2017-03-26] MEDS ORDERED: LORazepam 2 MG/ML VIAL IV PUSH PRN ×4 (11:30)
[2017-03-26] MEDS ORDERED: FLUMAZENIL 0.5 MG/5 ML VIAL IV PUSH PRN (11:30)
[2017-03-26] MEDS ORDERED: HALOPERIDOL LACTATE 5 MG/ML AMP IM PRN (11:30)
[2017-03-26] MEDS ORDERED: LORazepam 2 MG TAB PO PRN (11:30)
--- NOTE | 2017-03-26 11:35 | HHI.NPPN ---
Subjective Interval History HD performed yesterday. Labs were reviewed. Notes were reviewed. Review of Systems General Constitutional: Fatigue Objective Data Data 03/25/17 03/26/17 19:00 07:00 Intake Total 556 ml 855 ml Output Total 3400 ml 1650 ml Balance -2844 ml -795 ml Intake Oral 200 ml 200 ml IV Total 356 ml 655 ml Output Urine Total 1900 ml 1650 ml Hemodialysis 1500 ml # Bowel Movements 2 1 Vital Signs Date Time Temp Pulse Resp B/P Pulse Ox O2 Delivery O2 Flow Rate FiO2 03/26/17 08:00 68 03/26/17 08:00 97.7 68 27 123/59 90 03/26/17 07:56 93 Nasal Cannula 6.00 03/26/17 07:00 91 Nasal Cannula 6.00 03/26/17 06:00 70 03/26/17 04:00 98.3 72 11 148/67 100 03/26/17 04:00 72 03/26/17 03:25 97 Non-Rebreather 15.00 100 03/26/17 02:00 61 03/26/17 00:00 66 13 140/66 93 03/26/17 00:00 66 03/25/17 22:00 74 03/25/17 21:39 93 Nasal Cannula 4.00 03/25/17 20:00 98.3 78 28 145/65 93 03/25/17 20:00 73 03/25/17 19:00 96 Nasal Cannula 5.00 03/25/17 18:00 75 03/25/17 16:00 72 03/25/17 16:00 98.3 72 19 133/63 96 03/25/17 14:00 66 03/25/17 12:00 63 03/25/17 12:00 98.1 63 14 148/67 98 -: 03/26/17 0350 03/26/17 0350 Physical Exam General Appearance: Well Developed, Well Nourished Pulmonary Resp Exam: Clear Bilaterally, Breath Sounds Equal Cardiology CV Exam: Regular, Normal Sinus Rhythm Gastrointestinal/Abdomen GI Exam: Soft, Non-Tender, Bowel Sounds Present Extremeties Extremities Exam: Moderate Edema Assessment/Plan Problem List: (1) Acute renal failure Plan: Initiated on HD. Continue to monitor fluid and electrolyte status. Bladder mass is noted. Urology has seen him. He has metastatic disease. Refused biopsy. Hematology on the case. He is s/p bilateral ureteral stent placements. Discontinue bicarbonate drip. (2) Uropathy, obstructive Plan: Severe followed by urology (3) Anemia Plan: on epogen Problem Qualifiers (1) Anemia: Qualified Code: D64.9 - Anemia, unspecified type Brian Lyman MD Mar 26, 2017 11:35
[2017-03-26] MEDS: MULTIVITAMINS/MINERALS THERAPEUTIC TAB PO SCH (11:48)
[2017-03-26] MEDS: FOLIC ACID 1 MG TAB PO SCH (11:48)
[2017-03-26] MEDS: THIAMINE HCL 100 MG TAB PO SCH (11:48)
[2017-03-26] MEDS: LORazepam 1 MG TAB PO PRN (11:48)
[2017-03-26] MEDS: DEXT 5%-NACL 0.45% 1000 ML INJ 1,000 ML IV SCH (13:15)
[2017-03-26] MEDS: SODIUM CHLORIDE 0.9% IRRIGATION SCH (17:00)
[2017-03-26] MEDS: IRR IRRIGATION SCH (17:00)
[2017-03-27] VITALS (14 sets, daily range): BP systolic 135–164; BP diastolic 62–76; PULSE 56–75; RESP 20–26; TEMP 97.7–98.6; O2SAT 95–98
[2017-03-27] MEDS: AMINOCAPROIC ACID INJ 3,000 MG in SODIUM CHLORIDE 0.9% IRR BAG 3,000 ML IRRIGATION SCH ×6 (00:11→17:04)
[2017-03-27] MEDS: CHLORHEXIDINE GLUCONATE 2 % 1 PACK (2 CLOTHS) TOP SCH (03:55)
[2017-03-27 04:18] LABS: AUTOMATED NEUTROPHIL # 11.8 TH/MM3 (1.8-7.7); BASOPHIL # 0.1 TH/MM3 (0-0.2); BASOPHIL % 0.6 % (0.0-2.0); EOSINOPHIL # 1.6 TH/MM3 (0-0.4); EOSINOPHIL % 7.6 % (0.0-4.0); HEMATOCRIT 27.9 % (39.0-51.0); LYMPH % 26.4 % (9.0-44.0); LYMPHOCYTE # 5.5 TH/MM3 (1.0-4.8); MEAN CELL VOLUME 87.1 FL (80.0-100.0); MEAN CORPUSCULAR HEMOGLOBIN 28.4 PG (27.0-34.0); MEAN CORPUSCULAR HGB CONC 32.6 % (32.0-36.0); NEUT % 57.4 % (16.0-70.0); PLATELET COUNT 152 TH/MM3 (150-450); RED CELL DISTRIBUTION WIDTH 15.6 % (11.6-17.2); WHITE BLOOD COUNT 20.6 TH/MM3 (4.0-11.0)
[2017-03-27 04:24] LABS: HEMO FLAGS AUTO DIFF
[2017-03-27 04:44] LABS: BICARBONATE 34.7 MEQ/L (21.0-32.0); POTASSIUM 3.4 MEQ/L (3.5-5.1)
[2017-03-27 05:26] LABS: BASOPHILS 1 % (0-2); EOSINOPHILS 3 % (0-4); NEUTROPHIL # MANUAL DIFF 17.7 TH/MM3 (1.8-7.7); POLYS (SEG NEUTROPHILS) 86 % (16-70); WBC DIFF SAMPLE 100
[2017-03-27 05:27] LABS: PLATELET ESTIMATE SMEAR LOW (NORMAL); PLATELET MORPHOLOGY NORMAL (NORMAL); SCAN/DIFF FINAL DIFF MANUAL
[2017-03-27] MEDS: SODIUM CHLORIDE 0.9% FLUSH 10 ML FLUSH IV FLUSH SCH ×2 (07:26→20:17)
[2017-03-27] MEDS: METOPROLOL TARTRATE 25 MG TAB PO SCH ×2 (09:00→20:14)
--- NOTE | 2017-03-27 09:08 | HHI.NPPN ---
Subjective Interval History Renal function is worse. No sign of recovery. Possible dialysis tomorrow. Review of Systems General Constitutional: Fatigue Objective Data Data 03/26/17 03/27/17 19:00 07:00 Intake Total 582 ml 790 ml Output Total 2800 ml 5350 ml Balance -2218 ml -4560 ml Intake Oral 240 ml IV Total 342 ml 790 ml Output Urine Total 2800 ml 5350 ml # Bowel Movements 0 Vital Signs Date Time Temp Pulse Resp B/P Pulse Ox O2 Delivery O2 Flow Rate FiO2 03/27/17 08:00 59 03/27/17 08:00 97.7 59 22 135/62 95 03/27/17 07:00 95 Nasal Cannula 6.00 03/27/17 06:00 59 03/27/17 04:00 98.1 56 23 142/67 98 03/27/17 04:00 56 03/27/17 02:00 59 03/27/17 00:00 64 26 146/69 95 03/27/17 00:00 64 03/26/17 22:00 63 03/26/17 20:21 95 Nasal Cannula 6.00 03/26/17 20:00 63 03/26/17 20:00 97.9 63 19 147/68 94 03/26/17 19:00 95 Nasal Cannula 6.00 03/26/17 18:00 64 03/26/17 16:00 55 03/26/17 16:00 97.7 55 22 121/60 94 03/26/17 14:00 66 03/26/17 12:00 97.7 66 24 157/73 93 03/26/17 12:00 66 03/26/17 10:00 78 -: 03/27/17 0300 03/27/17 0300 Physical Exam General Appearance: Well Developed, Well Nourished Pulmonary Resp Exam: Clear Bilaterally, Breath Sounds Equal Cardiology CV Exam: Regular, Normal Sinus Rhythm Gastrointestinal/Abdomen GI Exam: Soft, Non-Tender, Bowel Sounds Present Extremeties Extremities Exam: Moderate Edema Assessment/Plan Problem List: (1) Acute renal failure Plan: Initiated on HD. Continue to monitor fluid and electrolyte status. Bladder mass is noted. Urology has seen him. He has metastatic disease. Refused biopsy. Hematology on the case. He is s/p bilateral ureteral stent placements. Discontinued bicarbonate drip. Prognosis is guarded. Needs urology evaluation to verify patency of stents. Percutaneous nephrostomy? if persistent hydronephrosis. Patient has refused many procedures. (2) Uropathy, obstructive Plan: Severe followed by urology (3) Anemia Plan: on epogen Problem Qualifiers (1) Anemia: Qualified Code: D64.9 - Anemia, unspecified type Brian Lyman MD Mar 27, 2017 09:08
[2017-03-27] MEDS: THIAMINE HCL 100 MG TAB PO SCH (09:20)
[2017-03-27] MEDS: FOLIC ACID 1 MG TAB PO SCH (09:20)
[2017-03-27] MEDS: MULTIVITAMINS/MINERALS THERAPEUTIC TAB PO SCH (09:20)
[2017-03-27] MEDS: PANTOPRAZOLE SODIUM 40 MG VIAL IV SCH (09:20)
[2017-03-27] MEDS: CALCIUM ACETATE 667 MG CAP PO SCH ×3 (09:20→18:00)
[2017-03-27] MEDS: DOCUSATE SODIUM 50 MG/SENNA 8.6 MG TAB PO SCH ×2 (09:20→20:13)
[2017-03-27] MEDS: CHOLECALCIFEROL (VIT D3) 5000 UNIT CAP PO SCH (09:20)
--- NOTE | 2017-03-27 09:40 | HHI.PR ---
Subjective Remarks Follow-up bladder mass/obstruction uropathy/ 03/26/17-patient seen and examined, denies any chest pain or shortness of breath as well as pelvic fully with clear urine CBI running. Renal indices improving. Patient still doesn't want any bladder biopsy performed. Son by the bedside 03/27/17-patient seen and examined, CBI still running, worsening renal indices. No acute event overnight Objective Vitals Vital Signs Date Time Temp Pulse Resp B/P Pulse Ox O2 Delivery O2 Flow Rate FiO2 03/27/17 08:45 97 Nasal Cannula 6.00 03/27/17 08:00 59 03/27/17 08:00 97.7 59 22 135/62 95 03/27/17 07:00 95 Nasal Cannula 6.00 03/27/17 06:00 59 03/27/17 04:00 98.1 56 23 142/67 98 03/27/17 04:00 56 03/27/17 02:00 59 03/27/17 00:00 64 26 146/69 95 03/27/17 00:00 64 03/26/17 22:00 63 03/26/17 20:21 95 Nasal Cannula 6.00 03/26/17 20:00 63 03/26/17 20:00 97.9 63 19 147/68 94 03/26/17 19:00 95 Nasal Cannula 6.00 03/26/17 18:00 64 03/26/17 16:00 55 03/26/17 16:00 97.7 55 22 121/60 94 03/26/17 14:00 66 03/26/17 12:00 97.7 66 24 157/73 93 03/26/17 12:00 66 03/26/17 10:00 78 I/O 03/26/17 03/26/17 03/26/17 03/27/17 03/27/17 03/27/17 07:00 15:00 23:00 07:00 15:00 23:00 Intake Total 413 ml 582 ml 354 ml 436 ml Output Total 2800 ml 2800 ml 2550 ml Balance 413 ml -2218 ml -2446 ml -2114 ml Intake Oral 100 ml 240 ml IV Total 313 ml 342 ml 354 ml 436 ml Output Urine Total 2800 ml 2800 ml 2550 ml # Bowel Movements 0 0 0 Result Diagram: 03/27/17 0300 03/27/17 0300 Objective Remarks GENERAL: NAD SKIN: Warm and dry. HEAD: Normocephalic. EYES: No scleral icterus. No injection or drainage. NECK: Supple, trachea midline. No JVD or lymphadenopathy. CARDIOVASCULAR: Regular rate and rhythm without murmurs, gallops, or rubs. RESPIRATORY: Breath sounds equal bilaterally. No accessory muscle use. GASTROINTESTINAL: Abdomen soft, non-tender, nondistended. MUSCULOSKELETAL: No cyanosis, or edema. BACK: Nontender without obvious deformity. No CVA tenderness. A/P Problem List: (1) obstructive uropathy, renal failure Status: Acute (2) Bladder mass ICD Code: N32.89 Status: Acute (3) apparent bony metastases, elevated PSA, suspected prostate cancer Status: Acute (4) acute renal failure, on dialysis Status: Acute (5) hypertension Status: Acute (6) Anemia due to acute blood loss ICD Code: D62 Status: Acute Assessment and Plan 61-year-old man with Hypertension Pulmonary edema Continue to Hold ASA /anticoagulants at this time as no symptoms of ACS and patient has symptomatic anemia. Metoprolol 25 mg by mouth every 12 hours. Not a candidate for ETHEL inhibitor due to acute kidney injury. Bladder mass Acute kidney injury/ CKD Urinary obstruction Urinary bladder clot s/p cystoscopy Hematuria Underwent cystoscopy with ureteral stenting on 03/[address] Fine. Currently on hemodialysis since 03/22 and plan for HD tomorrow 03/28/17 secondary to worsening renal indices Repeat cystoscopy with fulguration of bleeding sites and urinary bladder on 03/24 CBI to be continued per urology. Patient is refusing further evaluation of metastatic bone disease per documentation by hematology. Appreciate input from palliative care medicine Leukocytosis Covered empirically with cefepime for possibility of sepsis given his leukocytosis, possible prostatitis. Follow-up blood and urine culture. Anemia of acute blood loss Leukocytosis - lymphocytosis. Transfused 8 units of PRBCs since admission Anemia secondary to hematuria and possible bone metastases. Appreciate input from Hematology consulted and evaluating patient for further anemia workup as well as for metastatic disease. Given DDAVP 20 mcg IV on 03/22 4 suspected platelet dysfunction secondary to uremia and ongoing hematuria. PROPH: Protonix 40 g IV daily for stress ulcer prophylaxis. SCDs for DVT prophylaxis. Hold on pharmacologic DVT prophylaxis due to severe anemia. Rene Santiago MD Mar 27, 2017 09:40
[2017-03-27] MEDS ORDERED: POTASSIUM CHLORIDE 20 MEQ CONTROLLED RELEASE TAB PO ONE (10:45)
[2017-03-27] MEDS: LORazepam 1 MG TAB PO PRN (10:52)
[2017-03-27] MEDS: DEXT 5%-NACL 0.45% 1000 ML INJ 1,000 ML IV SCH (13:04)
[2017-03-27] MEDS: IRR IRRIGATION SCH (17:00)
[2017-03-27] MEDS: SODIUM CHLORIDE 0.9% IRRIGATION SCH (17:00)
[2017-03-28] VITALS (13 sets, daily range): BP systolic 145–176; BP diastolic 66–78; PULSE 53–87; RESP 12–22; TEMP 98.3–99.1; O2SAT 94–100
[2017-03-28] MEDS: CEFEPIME INJ 1,000 MG in SODIUM CHLORIDE 0.9% INJ 100 ML IV SCH (00:15)
[2017-03-28] MEDS: AMINOCAPROIC ACID INJ 3,000 MG in SODIUM CHLORIDE 0.9% IRR BAG 3,000 ML IRRIGATION SCH ×10 (00:55→16:16)
[2017-03-28] MEDS: CHLORHEXIDINE GLUCONATE 2 % 1 PACK (2 CLOTHS) TOP SCH (04:00)
[2017-03-28] MEDS: MULTIVITAMINS/MINERALS THERAPEUTIC TAB PO SCH (07:54)
[2017-03-28] MEDS: THIAMINE HCL 100 MG TAB PO SCH (07:54)
[2017-03-28] MEDS: PANTOPRAZOLE SODIUM 40 MG VIAL IV SCH (07:54)
[2017-03-28] MEDS: FOLIC ACID 1 MG TAB PO SCH (07:54)
[2017-03-28] MEDS: SODIUM CHLORIDE 0.9% FLUSH 10 ML FLUSH IV FLUSH SCH ×2 (07:54→21:09)
[2017-03-28] MEDS: METOPROLOL TARTRATE 25 MG TAB PO SCH ×2 (07:55→21:09)
[2017-03-28] MEDS: CHOLECALCIFEROL (VIT D3) 5000 UNIT CAP PO SCH (07:55)
[2017-03-28] MEDS: CALCIUM ACETATE 667 MG CAP PO SCH ×3 (07:55→17:51)
[2017-03-28] MEDS: DOCUSATE SODIUM 50 MG/SENNA 8.6 MG TAB PO SCH ×2 (07:55→21:09)
[2017-03-28] MEDS: hydrALAZINE HCL 20 MG/ML VIAL IV PUSH PRN (09:02)
[2017-03-28] MEDS: DEXT 5%-NACL 0.45% 1000 ML INJ 1,000 ML IV SCH (09:07)
--- NOTE | 2017-03-28 09:55 | HHI.PR ---
Subjective Patient symptoms today Resting quietly in bed and appears somewhat sedated Objective Vital Signs Vital Signs Date Time Temp Pulse Resp B/P Pulse Ox O2 Delivery O2 Flow Rate FiO2 03/28/17 08:00 67 03/28/17 07:14 98 Nasal Cannula 6.00 03/28/17 07:00 100 Nasal Cannula 6.00 03/28/17 06:00 60 03/28/17 04:00 98.7 60 12 155/67 94 03/28/17 04:00 60 03/28/17 02:00 59 03/28/17 00:00 62 03/28/17 00:00 99.1 62 15 160/74 95 03/27/17 22:00 58 03/27/17 20:29 96 Nasal Cannula 6.00 03/27/17 20:00 98.6 74 22 159/73 97 03/27/17 20:00 74 03/27/17 19:00 96 Nasal Cannula 6.00 Humidified 03/27/17 18:00 69 03/27/17 16:00 98.0 60 22 141/68 95 03/27/17 16:00 62 03/27/17 14:00 56 03/27/17 12:00 97.8 66 20 164/76 95 03/27/17 12:00 66 03/27/17 10:00 75 Intake & Output 03/28/17 03/28/17 07:00 19:00 Intake Total 976 ml Balance 976 ml Intake Oral 240 ml IV Total 736 ml # Bowel Movements 0 Result Diagram: 03/27/17 0300 03/27/17 0300 Objective Remarks Abd:soft, tender over bladder Ext:2+ edema 03/23 Abd: soft,nt,nd Pollock: blood tinged on Amicar CBI 03/[address] draining clear urine Abdomen soft, nondistended, nontender Medications and IVs Current Medications Medications (Trade) Dose Ordered Sig/Nasreen Route Start Time Stop Time Status Last Admin (NS Flush) 2 ml UNSCH PRN IV FLUSH 03/20/17 18:15 (NS Flush) 2 ml BID IV FLUSH 03/20/17 21:00 03/28/17 07:54 (Tylenol) 650 mg Q6H PRN PO 03/20/17 18:15 (Lenox 5-325 Mg) 1 tab Q4H PRN PO 03/20/17 18:15 (Morphine Inj) 2 mg Q2H PRN IV PUSH 03/20/17 18:30 03/26/17 02:06 (Protonix Inj) 40 mg DAILY IV 03/21/17 09:00 03/28/17 07:54 (Zofran Inj) 4 mg Q6H PRN IV 03/20/17 18:15 03/23/17 17:52 Miscellaneous Information 1 Q361D XX 03/20/17 18:15 03/20/17 21:46 (Chlorhexidine 2% Cloth) Taper DAILY@04 TOP 03/21/17 04:00 03/17/18 03:59 03/26/17 01:38 (Chlorhexidine 2% Cloth) 3 pack UNSCH PRN TOP 03/20/17 18:15 (Negin-Colace) 1 tab BID PO 03/20/17 21:00 03/28/17 07:55 (Milk Of Magnesia Liq) 30 ml Q12H PRN PO 03/20/17 18:15 (Senokot) 17.2 mg Q12H PRN PO 03/20/17 18:15 (Dulcolax Supp) 10 mg DAILY PRN RECTAL 03/20/17 18:15 Lactulose 30 ml 30 ml DAILY PRN PO 03/20/17 18:15 03/25/17 08:59 (Maxipime Inj/NS Inj) 100 ml @ 200 mls/hr Q24H IV 03/21/17 00:00 03/28/17 00:15 (Lopressor) 25 mg Q12HR PO 03/21/17 02:45 03/28/17 07:55 Calcium Acetate 667 mg 667 mg TID PO 03/21/17 18:00 03/27/17 18:00 Sodium Chloride 1,000 ml @ 0 mls/hr Q0M PRN IV 03/22/17 11:58 03/25/17 14:07 Sodium Chloride 1,000 ml @ 200 mls/hr Q5H PRN IV 03/22/17 11:58 (NS 1000 ml Inj) 1,000 ml @ 0 mls/hr Q0M PRN IV 03/22/17 11:58 (Mannitol Inj) 12.5 gm UNSCH PRN IV 03/22/17 12:00 (Albumin 25% Inj) 25 gm UNSCH PRN IV 03/22/17 12:00 (NS Flush) 5 ml UNSCH PRN IV FLUSH 03/22/17 12:00 (Heparin Inj) UNSCH PRN .XX 03/22/17 12:00 03/23/17 08:47 (Gentamicin (Dialysis) Inj) 20 mg UNSCH PRN IV 03/22/17 12:00 03/25/17 14:06 (Zofran Inj) 4 mg UNSCH PRN IV 03/22/17 12:00 (Tylenol) 650 mg UNSCH PRN PO 03/22/17 12:00 (Benadryl) 25 mg UNSCH PRN PO 03/22/17 12:00 (Nitrostat Sl) 0.4 mg UNSCH PRN SL 03/22/17 12:00 (Catapres) 0.1 mg UNSCH PRN PO 03/22/17 12:00 (Epogen Inj) 10,000 units UNSCH PRN IV 03/22/17 12:00 03/25/17 14:06 Gelatin 1 foam 1 foam UNSCH PRN TOP 03/22/17 12:00 Aminocaproic Acid 3000 mg/Sodium Chloride 3,012 ml @ 125.5 mls/ hr Q24H IRRIGATION 03/22/17 13:30 03/28/17 09:07 (Diprivan 1000 Mg/100ml Inj) 100 ml @ 0 mls/hr TITRATE IV 03/22/17 16:00 (Vitamin D3) 5,000 units DAILY PO 03/23/17 09:00 03/28/17 07:55 Hydralazine HCl 20 mg 20 mg Q2HR PRN IV PUSH 03/23/17 16:30 03/28/17 09:02 (NS Irr Bag) 3,000 ml @ 125.5 mls/ hr Q24H IRRIGATION 03/23/17 17:00 03/24/17 19:30 (Narcan Inj) 0.4 mg Q2M PRN IV PUSH 03/23/17 17:00 (Folate) 1 mg DAILY PO 03/26/17 11:45 03/31/17 11:44 03/28/17 07:54 (Vitamin B1) 100 mg DAILY PO 03/26/17 11:45 03/28/17 07:54 (Theragran M Tab) 1 tab DAILY PO 03/26/17 11:45 03/31/17 11:44 03/28/17 07:54 (Romazicon Inj) 0.2 mg Q1M PRN IV PUSH 03/26/17 11:30 (Ativan) 1 mg Q4H PRN PO 03/26/17 11:30 03/27/17 10:52 (Ativan Inj) 1 mg Q4H PRN IV PUSH 03/26/17 11:30 (Ativan) 2 mg Q2H PRN PO 03/26/17 11:30 03/28/17 00:15 (Ativan Inj) 2 mg Q2H PRN IV PUSH 03/26/17 11:30 (Ativan Inj) 2 mg Q1H PRN IV PUSH 03/26/17 11:30 (Ativan Inj) 2 mg Q15M PRN IV PUSH 03/26/17 11:30 Haloperidol Lactate 2 mg 2 mg Q15M PRN IM 03/26/17 11:30 (D5W-1/2 NS 1000 ml Inj) 1,000 ml @ 42 mls/hr [id number] IV 03/26/17 13:15 03/28/17 09:07 Assessment and Plan Assessment and Plan 61-year-old male with acute renal failure and evidence of bladder outlet obstruction with elevated PSA and family history of prostate cancer. Maintain Pollock catheter and monitor for postobstructive diuresis. Holding replacement fluids at present due to evidence of pulmonary edema on chest x-ray. CT scan ordered for later today. We'll start Flomax in the future once his creatinine starts to baseline. Once Pollock catheter has been removed and he is voiding we'll need to repeat PSA at that time. We'll follow with you. Thank you for the consult and allowing me to participate in the care of this patient. 03/22 61-year-old male with acute renal failure and evidence of bladder outlet obstruction with elevated PSA and family history of prostate cancer with blastic lesions of pelvis on CT scan For cysto/clot evacuation/RPG's with possible stents and bladder bx with fulguration if necessary in OR today NPO Risks and benefits discussed with pt and daughter at bedside. 03/23 61-year-old male with acute renal failure and evidence of bladder outlet obstruction with elevated PSA and family history of prostate cancer with blastic lesions of pelvis on CT scan s/p cystoscopy with clot evacuation and b/ l JJ stent insertion Continue Amicar CBI Irrigate prn Will need PNBx in the future after ARF has resolved and overall condition is improved. Maybe done as outpt. 03/28 Resolved gross hematuria Maintain Pollock catheter to gravity drainage Will eventually require transrectal ultrasound and prostate needle biopsy to confirm diagnosis of prostate cancer, this may be performed as an outpatient. John Bello MD Mar 28, 2017 09:55
--- NOTE | 2017-03-28 11:14 | PD.ONC.PN ---
Subjective Subjective Remarks Afebrile overnight. Patient somewhat lethargic today. No overnight events. Vas-cath pulled out over the weekend. Objective Data Date Time Temp Pulse Resp B/P Pulse Ox O2 Delivery O2 Flow Rate FiO2 03/28/17 10:00 55 03/28/17 08:00 98.7 87 20 176/78 100 03/28/17 08:00 67 03/28/17 07:14 98 Nasal Cannula 6.00 03/28/17 07:00 100 Nasal Cannula 6.00 03/28/17 06:00 60 03/28/17 04:00 98.7 60 12 155/67 94 03/28/17 04:00 60 03/28/17 02:00 59 03/28/17 00:00 62 03/28/17 00:00 99.1 62 15 160/74 95 03/27/17 22:00 58 03/27/17 20:29 96 Nasal Cannula 6.00 03/27/17 20:00 98.6 74 22 159/73 97 03/27/17 20:00 74 03/27/17 19:00 96 Nasal Cannula 6.00 Humidified 03/27/17 18:00 69 03/27/17 16:00 98.0 60 22 141/68 95 03/27/17 16:00 62 03/27/17 14:00 56 03/27/17 12:00 97.8 66 20 164/76 95 03/27/17 12:00 66 03/28/17 03/28/17 03/28/17 07:00 15:00 23:00 Intake Total 401 ml Balance 401 ml Result Diagram: 03/27/17 0300 03/27/17 0300 Administered Medications Medications (Trade) Dose Ordered Sig/Nasreen Route PRN Reason Start Time Stop Time Status Last Admin Dose Admin Sodium Chloride (NS Flush) 2 ml BID IV FLUSH 03/20/17 21:00 03/28/17 07:54 Morphine Sulfate (Morphine Inj) 2 mg Q2H PRN IV PUSH PAIN 6-10 03/20/17 18:30 03/26/17 02:06 Pantoprazole Sodium (Protonix Inj) 40 mg DAILY IV 03/21/17 09:00 03/28/17 07:54 Ondansetron HCl (Zofran Inj) 4 mg Q6H PRN IV NAUSEA OR VOMITING 03/20/17 18:15 03/23/17 17:52 Miscellaneous Information 1 Q361D XX 03/20/17 18:15 03/20/17 21:46 Chlorhexidine Gluconate (Chlorhexidine 2% Cloth) Taper DAILY@04 TOP 03/21/17 04:00 03/17/18 03:59 03/26/17 01:38 Senna/Docusate Sodium (Negin-Colace) 1 tab BID PO 03/20/17 21:00 03/28/17 07:55 Lactulose 30 ml 30 ml DAILY PRN PO SEVERE CONSITIPATION 03/20/17 18:15 03/25/17 08:59 Cefepime HCl/ Sodium Chloride (Maxipime Inj/NS Inj) 100 ml @ 200 mls/hr Q24H IV 03/21/17 00:00 03/28/17 00:15 Metoprolol Tartrate (Lopressor) 25 mg Q12HR PO 03/21/17 02:45 03/28/17 07:55 Calcium Acetate 667 mg 667 mg TID PO 03/21/17 18:00 03/27/17 18:00 Sodium Chloride (NS 1000 ml Inj) 1,000 ml @ 0 mls/hr Q0M PRN IV For Prime & Rinse Back 03/22/17 11:58 03/25/17 14:07 Heparin Sodium (Porcine) (Heparin Inj) UNSCH PRN .XX WITH DIALYSIS 03/22/17 12:00 03/23/17 08:47 Gentamicin Sulfate (Gentamicin (Dialysis) Inj) 20 mg UNSCH PRN IV WITH DIALYSIS 03/22/17 12:00 03/25/17 14:06 Epoetin Hermes 35607 units 10,000 units UNSCH PRN IV WITH DIALYSIS 03/22/17 12:00 03/25/17 14:06 Aminocaproic Acid/ Sodium Chloride (Amicar Inj/NS Irr Bag) 3,012 ml @ 125.5 mls/ hr Q24H IRRIGATION 03/22/17 13:30 03/28/17 10:06 Cholecalciferol (Vitamin D3) 5,000 units DAILY PO 03/23/17 09:00 03/28/17 07:55 Hydralazine HCl 20 mg 20 mg Q2HR PRN IV PUSH SBP greater than 160mm Hg 03/23/17 16:30 03/28/17 09:02 Sodium Chloride (NS Irr Bag) 3,000 ml @ 125.5 mls/ hr Q24H IRRIGATION 03/23/17 17:00 03/24/17 19:30 Folic Acid (Folate) 1 mg DAILY PO 03/26/17 11:45 03/31/17 11:44 03/28/17 07:54 Thiamine HCl (Vitamin B1) 100 mg DAILY PO 03/26/17 11:45 03/28/17 07:54 Multivitamins/ Minerals Therapeutic (Theragran M Tab) 1 tab DAILY PO 03/26/17 11:45 03/31/17 11:44 03/28/17 07:54 Lorazepam (Ativan) 1 mg Q4H PRN PO CIWA 8 - 10 03/26/17 11:30 03/27/17 10:52 Lorazepam 2 mg 2 mg Q2H PRN PO CIWA 11-14 03/26/17 11:30 03/28/17 00:15 Dextrose/Sodium Chloride (D5W-1/2 NS 1000 ml Inj) 1,000 ml @ 42 mls/hr [id number] IV 03/26/17 13:15 03/28/17 09:07 Objective Remarks GENERAL: Middle aged male, upright in bed, lethargic. SKIN: Warm and dry. HEAD: Normocephalic. EYES: No injection or drainage. NECK: Supple, trachea midline. CARDIOVASCULAR: Regular rate and rhythm RESPIRATORY: anterior marinelli clear, on 6L O2 via NC GASTROINTESTINAL: Abdomen soft, non-tender, nondistended. EXTREMITIES: No cyanosis.e NEUROLOGICAL: awake and alert, lethargic. Assessment/Plan Problem List: (1) Bladder mass Status: Acute Plan: 03/26: again d/w patient considering biopsy to establish diagnosis. still does not want to pursue biopsy. possible vas-cath placement and dialysis today. PSA elevated CT ab/pelvis: + bladder mass with bony mets. CT chest: bilateral pleural effusions. + bony mets to thoracic vertebra, ribs, left scapula (2) Anemia Status: Acute Plan: --transfuse as needed --hemoccult negative --keren negative --no sign of hemolysis. --slightly elevated retic count, no sign of iron deficiency Assessment 61y/o male admitted with ARF, CT shows possible bladder mass and bony mets + elevated PSA. Attending Statement letargic does not want bx continue HD Palliative care input noted. will follow. Problem Qualifiers (1) Anemia: Qualified Code: D64.9 - Anemia, unspecified type Raquel Stephens Mar 28, 2017 11:14 Cam Arceo MD Mar 28, 2017 22:45
--- NOTE | 2017-03-28 12:13 | HHI.PR ---
Subjective Remarks Follow-up bladder mass/obstruction uropathy/ 03/26/17-patient seen and examined, denies any chest pain or shortness of breath as well as pelvic fully with clear urine CBI running. Renal indices improving. Patient still doesn't want any bladder biopsy performed. Son by the bedside 03/27/17-patient seen and examined, CBI still running, worsening renal indices. No acute event overnight 03/28/17-patient seen and examined, somehow lethargic today however patient arousable and talking to me when possible. He states he wants miracle to be performed Objective Vitals Vital Signs Date Time Temp Pulse Resp B/P Pulse Ox O2 Delivery O2 Flow Rate FiO2 03/28/17 10:00 55 03/28/17 08:00 98.7 87 20 176/78 100 03/28/17 08:00 67 03/28/17 07:14 98 Nasal Cannula 6.00 03/28/17 07:00 100 Nasal Cannula 6.00 03/28/17 06:00 60 03/28/17 04:00 98.7 60 12 155/67 94 03/28/17 04:00 60 03/28/17 02:00 59 03/28/17 00:00 62 03/28/17 00:00 99.1 62 15 160/74 95 03/27/17 22:00 58 03/27/17 20:29 96 Nasal Cannula 6.00 03/27/17 20:00 98.6 74 22 159/73 97 03/27/17 20:00 74 03/27/17 19:00 96 Nasal Cannula 6.00 Humidified 03/27/17 18:00 69 03/27/17 16:00 98.0 60 22 141/68 95 03/27/17 16:00 62 03/27/17 14:00 56 I/O 03/27/17 03/27/17 03/27/17 03/28/17 03/28/17 03/28/17 07:00 15:00 23:00 07:00 15:00 23:00 Intake Total 436 ml 586 ml 575 ml 401 ml Output Total 2550 ml 3000 ml Balance -2114 ml -2414 ml 575 ml 401 ml Intake Oral 240 ml 240 ml IV Total 436 ml 346 ml 335 ml 401 ml Output Urine Total 2550 ml 3000 ml # Bowel Movements 0 0 0 Result Diagram: 03/27/17 0300 03/27/17 0300 Imaging Last Impressions Renal Ultrasound 03/25/17 0000 Signed Impressions: Service Date/Time: Saturday, March 25, 2017 22:14 - CONCLUSION: Marked hydronephrosis, Grade IV left kidney. There is no hydronephrosis on the right. Markedly thickened bladder wall. Damien Peña MD FACR Chest X-Ray 03/22/17 0000 Signed Impressions: Service Date/Time: Wednesday, March 22, 2017 16:05 - CONCLUSION: 1. Diffuse increased interstitial markings likely representing pulmonary edema. There is prominence of the central pulmonary vessels. 2. Hazy density bases with silhouetting hemidiaphragms from superimposed areas of consolidation/ atelectasis and effusions. Art Olivera MD Chest CT 03/21/17 0000 Signed Impressions: Service Date/Time: Tuesday, March 21, 2017 13:03 - CONCLUSION: 1. Moderate to large bilateral pleural effusions with associated compressive atelectasis in the lower lobes. 2. Bilateral patchy somewhat nodular groundglass opacities with upper lobe predominance likely related to positive fluid balance. 3. Diffuse sclerotic metastasis to the thoracic vertebra, ribs, and left scapula. 4. Bilateral moderate to severe hydronephrosis, incompletely imaged on this exam. This is similar to yesterday's ultrasound exam. 5. 3.6 cm coarsely calcified left thyroid nodule. This can be further evaluated with thyroid ultrasound as indicated. Ferdinand Fisher MD Abdomen/Pelvis CT 03/21/17 0000 Signed Impressions: Service Date/Time: Tuesday, March 21, 2017 13:03 - CONCLUSION: Large bladder mass with bone metastases. Small bilateral pleural effusions. Minimal retroperitoneal adenopathy. Damien Peña MD FACR Lower Extremity Ultrasound 03/20/17 0000 Signed Impressions: Service Date/Time: Monday, March 20, 2017 17:30 - CONCLUSION: Normal examination. Sebastián Greer MD Objective Remarks GENERAL: NAD but somehow lethargic SKIN: Warm and dry. HEAD: Normocephalic. EYES: No scleral icterus. No injection or drainage. NECK: Supple, trachea midline. No JVD or lymphadenopathy. CARDIOVASCULAR: Regular rate and rhythm without murmurs, gallops, or rubs. RESPIRATORY: Breath sounds equal bilaterally. No accessory muscle use. GASTROINTESTINAL: Abdomen soft, non-tender, nondistended. MUSCULOSKELETAL: No cyanosis, or edema. BACK: Nontender without obvious deformity. No CVA tenderness. A/P Problem List: (1) obstructive uropathy, renal failure Status: Acute (2) Bladder mass ICD Code: N32.89 Status: Acute (3) apparent bony metastases, elevated PSA, suspected prostate cancer Status: Acute (4) acute renal failure, on dialysis Status: Acute (5) hypertension Status: Acute (6) Anemia due to acute blood loss ICD Code: D62 Status: Acute Assessment and Plan 61-year-old man with Hypertension Pulmonary edema Continue to Hold ASA /anticoagulants at this time as no symptoms of ACS and patient has symptomatic anemia. Metoprolol 25 mg by mouth every 12 hours. Not a candidate for ETHEL inhibitor due to acute kidney injury. Bladder mass Acute kidney injury/ CKD Urinary obstruction Urinary bladder clot s/p cystoscopy Hematuria Underwent cystoscopy with ureteral stenting on 03/[address] Fine. Currently on hemodialysis since 03/22 and plan for HD tomorrow 03/28/17 secondary to worsening renal indices when Vas-Cath placed Repeat cystoscopy with fulguration of bleeding sites and urinary bladder on 03/24 CBI to be continued per urology. Patient may eventually require transrectal ultrasound and prostate needle biopsy to confirm diagnosis of prostate cancer which may be performed outpatient. Patient is refusing further evaluation of metastatic bone disease per documentation by hematology. Appreciate input from palliative care medicine Leukocytosis Covered empirically with cefepime for possibility of sepsis given his leukocytosis, possible prostatitis. Follow-up blood and urine culture. Anemia of acute blood loss Leukocytosis - lymphocytosis. Transfused 8 units of PRBCs since admission Anemia secondary to hematuria and possible bone metastases. Appreciate input from Hematology consulted and evaluating patient for further anemia workup as well as for metastatic disease. Given DDAVP 20 mcg IV on 03/22 4 suspected platelet dysfunction secondary to uremia and ongoing hematuria. PROPH: Protonix 40 g IV daily for stress ulcer prophylaxis. SCDs for DVT prophylaxis. Hold on pharmacologic DVT prophylaxis due to severe anemia. Rene Santiago MD Mar 28, 2017 12:13
[2017-03-28] MEDS: SODIUM CHLORIDE 0.9% IRRIGATION SCH (12:20)
[2017-03-28] MEDS: IRR IRRIGATION SCH (12:20)
[2017-03-28 13:08] LABS: AUTOMATED NEUTROPHIL # 12.1 TH/MM3 (1.8-7.7); BASOPHIL # 0.1 TH/MM3 (0-0.2); BASOPHIL % 0.4 % (0.0-2.0); EOSINOPHIL # 1.3 TH/MM3 (0-0.4); EOSINOPHIL % 6.4 % (0.0-4.0); HEMATOCRIT 28.1 % (39.0-51.0); LYMPH % 24.8 % (9.0-44.0); LYMPHOCYTE # 4.9 TH/MM3 (1.0-4.8); MEAN CORPUSCULAR HEMOGLOBIN 29.1 PG (27.0-34.0); MONO % 7.2 % (0.0-8.0); NEUT % 61.2 % (16.0-70.0); PLATELET COUNT 155 TH/MM3 (150-450); RED CELL DISTRIBUTION WIDTH 15.5 % (11.6-17.2); WHITE BLOOD COUNT 19.8 TH/MM3 (4.0-11.0)
[2017-03-28 13:09] LABS: HEMO FLAGS AUTO DIFF
[2017-03-28 13:36] LABS: POTASSIUM 3.8 MEQ/L (3.5-5.1)
[2017-03-28 13:46] LABS: BANDS 2 % (0-6); EOSINOPHILS 3 % (0-4); POLYS (SEG NEUTROPHILS) 84 % (16-70); WBC DIFF SAMPLE 100
[2017-03-28 13:47] LABS: SCAN/DIFF FINAL DIFF MANUAL
--- NOTE | 2017-03-28 14:49 | HHI.HCPN ---
Reason for visit a. To assist with evaluation and management of symptoms including: Dyspnea, fatigue/weakness b. To assist medical decision maker(s) with: better understanding of current medical conditions; weighing benefits/burdens of medical treatment options; making medical treatment decisions. . Subjective/Interval History Currently he is alert and oriented to person, place, year, not date. He is able to relate he has kidney issues, but have a hard time remembering the specifics about his likely prostate cancer. Pt's is at bedside. He himself acknowleges, "I come and go." Over the weekend the vas cath was pulled. ==He continue to endorse he would want dialysis short term to see it recover, and wants the vas cath to place if needed. Family supports decision. ==He and pt's ex are amenable to ativan prn for confusion and agitation to prevent him from pulling vas cath again. ==He is still undecided about the biopsy. I have spent time explaining to him about the need for it before know what type of treatment. Clarified with pt that yes, in many cases prostate cancer can be slow growing, but that he has likely metastasis and prognosis appears marginal to poor. Did reiterate however biopsy and subsequent input by oncology would be needed to see more accurately prognosticate. Pt still undecided and state he would want to see if his kidneys improve, before undergoing any biopsy. He denies any pain. complains about itching. Family/friend interactions Exwife at bedside. supports decision for vas-cath. Goals of care reviewed. Advance Directives Living Will: Never completed Health Care Surrogate: Never completed Durable Power of Director Of Recruitment And Admissions: Never completed Advance Directive Specifics Health Care Surrogate(s): Patient is now naming his daughter Lisa and son Frank as co-HCS. . Objective Vital Signs Date Time Temp Pulse Resp B/P Pulse Ox O2 Delivery O2 Flow Rate FiO2 03/28/17 14:00 57 03/28/17 13:25 100 Nasal Cannula 3.00 Humidified 03/28/17 12:00 53 03/28/17 12:00 98.3 53 20 145/66 100 03/28/17 10:00 55 03/28/17 08:50 100 Nasal Cannula 4.00 Humidified 03/28/17 08:00 98.7 87 20 176/78 100 03/28/17 08:00 67 03/28/17 07:15 100 Nasal Cannula 5.00 Humidified 03/28/17 07:14 98 Nasal Cannula 6.00 03/28/17 07:00 100 Nasal Cannula 6.00 Humidified 03/28/17 06:00 60 03/28/17 04:00 98.7 60 12 155/67 94 03/28/17 04:00 60 03/28/17 02:00 59 03/28/17 00:00 62 03/28/17 00:00 99.1 62 15 160/74 95 03/27/17 22:00 58 03/27/17 20:29 96 Nasal Cannula 6.00 03/27/17 20:00 98.6 74 22 159/73 97 03/27/17 20:00 74 03/27/17 19:00 96 Nasal Cannula 6.00 Humidified 03/27/17 18:00 69 03/27/17 16:00 98.0 60 22 141/68 95 03/27/17 16:00 62 Intake & Output 03/28/17 03/28/17 07:00 19:00 Intake Total 976 ml 343 ml Balance 976 ml 343 ml Intake Oral 240 ml IV Total 736 ml 343 ml # Bowel Movements 0 0 Physical Exam CONSTITUTIONAL/GENERAL: This is a weak appearing, thin patient, in no apparent distress. TUBES/LINES/DRAINS: SCDs, Vas-Cath, Pollock/irrigation SKIN: No jaundice, rashes, or lesions. Ecchymoses on upper extremities. No wounds seen anteriorly. Skin temperature appropriate. Not diaphoretic. HEAD: Atraumatic. Normocephalic. EYES: Pupils equal and round and reactive. Extraocular motions intact. No scleral icterus. No injection or drainage. Fundi not examined. ENT: Hearing grossly normal. Nose without bleeding or purulent drainage. Throat without visible erythema, exudates, masses, or lesions. NECK: Trachea midline. Supple, nontender. No palpable thyroid enlargement or nodularity. CARDIOVASCULAR: Regular rate and rhythm without murmurs, gallops, or rubs. No JVD. Peripheral pulses symmetric. RESPIRATORY/CHEST: Symmetric, unlabored respirations. Clear to auscultation. Breath sounds equal bilaterally. A few scattered rhonchi GASTROINTESTINAL: Abdomen soft, non-tender, nondistended. No hepato-splenomegaly , or palpable masses. No guarding. Bowel sounds present. GENITOURINARY: Pollock/irrigation catheter in place MUSCULOSKELETAL: Extremities without clubbing, cyanosis, or edema. No joint tenderness or effusion noted. No calf tenderness. No mottling or clubbing. LYMPHATICS: No palpable cervical or supraclavicular adenopathy. NEUROLOGICAL: Awake and alert. Motor and sensory grossly within normal limits. Follows commands. Cognitively sharp. Moves all extremities. PSYCHIATRIC: No obvious anxiety/depression. no apparent hallucinations or other psychotic thought process. . Diagnostic Tests Laboratory Laboratory Tests Test 03/26/17 03/27/17 03/28/17 03/28/17 03:50 03:00 12:30 12:43 White Blood Count 17.7 TH/MM3 20.6 TH/MM3 19.8 TH/MM3 (4.0-11.0) (4.0-11.0) (4.0-11.0) Red Blood Count 3.57 MIL/MM3 3.20 MIL/MM3 3.20 MIL/MM3 (4.50-5.90) (4.50-5.90) (4.50-5.90) Hemoglobin 10.1 GM/DL 9.1 GM/DL 9.3 GM/DL (13.0-17.0) (13.0-17.0) (13.0-17.0) Hematocrit 30.9 % 27.9 % 28.1 % (39.0-51.0) (39.0-51.0) (39.0-51.0) Mean Corpuscular Volume 86.6 FL 87.1 FL 88.0 FL (80.0-100.0) (80.0-100.0) (80.0-100.0) Mean Corpuscular Hemoglobin 28.2 PG 28.4 PG 29.1 PG (27.0-34.0) (27.0-34.0) (27.0-34.0) Mean Corpuscular Hemoglobin 32.6 % 32.6 % 33.0 % Concent (32.0-36.0) (32.0-36.0) (32.0-36.0) Red Cell Distribution Width 15.4 % 15.6 % 15.5 % (11.6-17.2) (11.6-17.2) (11.6-17.2) Platelet Count 150 TH/MM3 152 TH/MM3 155 TH/MM3 (150-450) (150-450) (150-450) Mean Platelet Volume 8.3 FL 8.4 FL 8.1 FL (7.0-11.0) (7.0-11.0) (7.0-11.0) Neutrophils (%) (Auto) % (16.0-70.0) 57.4 % 61.2 % (16.0-70.0) (16.0-70.0) Lymphocytes (%) (Auto) % (9.0-44.0) 26.4 % 24.8 % (9.0-44.0) (9.0-44.0) Monocytes (%) (Auto) % (0.0-8.0) 8.0 % (0.0-8.0) 7.2 % (0.0-8.0) Eosinophils (%) (Auto) % (0.0-4.0) 7.6 % (0.0-4.0) 6.4 % (0.0-4.0) Basophils (%) (Auto) % (0.0-2.0) 0.6 % (0.0-2.0) 0.4 % (0.0-2.0) Neutrophils # (Auto) TH/MM3 11.8 TH/MM3 12.1 TH/MM3 (1.8-7.7) (1.8-7.7) (1.8-7.7) Lymphocytes # (Auto) TH/MM3 5.5 TH/MM3 4.9 TH/MM3 (1.0-4.8) (1.0-4.8) (1.0-4.8) Monocytes # (Auto) TH/MM3 (0-0.9) 1.7 TH/MM3 1.4 TH/MM3 (0-0.9) (0-0.9) Eosinophils # (Auto) TH/MM3 (0-0.4) 1.6 TH/MM3 1.3 TH/MM3 (0-0.4) (0-0.4) Basophils # (Auto) TH/MM3 (0-0.2) 0.1 TH/MM3 0.1 TH/MM3 (0-0.2) (0-0.2) CBC Comment AUTO DIFF AUTO DIFF AUTO DIFF Differential Total Cells 100 100 100 Counted Neutrophils % (Manual) 80 % (16-70) 86 % (16-70) 84 % (16-70) Lymphocytes % 12 % (9-44) 4 % (9-44) 7 % (9-44) Monocytes % 4 % (0-8) 6 % (0-8) 4 % (0-8) Eosinophils % 4 % (0-4) 3 % (0-4) 3 % (0-4) Neutrophils # (Manual) 14.2 TH/MM3 17.7 TH/MM3 17.0 TH/MM3 (1.8-7.7) (1.8-7.7) (1.8-7.7) Differential Comment FINAL DIFF FINAL DIFF FINAL DIFF MANUAL MANUAL MANUAL Platelet Estimate LOW (NORMAL) LOW (NORMAL) Platelet Morphology Comment NORMAL NORMAL (NORMAL) (NORMAL) Sodium Level 137 MEQ/L 137 MEQ/L 138 MEQ/L (136-145) (136-145) (136-145) Potassium Level 3.5 MEQ/L 3.4 MEQ/L 3.8 MEQ/L (3.5-5.1) (3.5-5.1) (3.5-5.1) Chloride Level 95 MEQ/L 97 MEQ/L 97 MEQ/L (98-107) (98-107) (98-107) Carbon Dioxide Level 31.2 MEQ/L 34.7 MEQ/L 30.0 MEQ/L (21.0-32.0) (21.0-32.0) (21.0-32.0) Anion Gap 11 MEQ/L (5-15) 5 MEQ/L (5-15) 11 MEQ/L (5-15) Blood Urea Nitrogen 47 MG/DL (7-18) 49 MG/DL (7-18) 62 MG/DL (7-18) Creatinine 7.50 MG/DL 8.13 MG/DL 8.83 MG/DL (0.60-1.30) (0.60-1.30) (0.60-1.30) Estimat Glomerular Filtration 7 ML/MIN (>89) 7 ML/MIN (>89) 6 ML/MIN (>89) Rate Random Glucose 127 MG/DL 114 MG/DL 103 MG/DL (74-106) (74-106) (74-106) Calcium Level 8.1 MG/DL 7.9 MG/DL 7.9 MG/DL (8.5-10.1) (8.5-10.1) (8.5-10.1) Total Bilirubin 0.4 MG/DL (0.2-1.0) Aspartate Amino Transf 17 U/L (15-37) (AST/SGOT) Alanine Aminotransferase 11 U/L (12-78) (ALT/SGPT) Alkaline Phosphatase 84 U/L (45-117) Total Protein 5.7 GM/DL (6.4-8.2) Albumin 2.1 GM/DL (3.4-5.0) Basophils % 1 % (0-2) Red Cell Morphology Comment NORMAL (NORMAL) Band Neutrophils % 2 % (0-6) Result Diagram: 03/28/17 1243 03/28/17 1230 Imaging Last Impressions Renal Ultrasound 03/25/17 0000 Signed Impressions: Service Date/Time: Saturday, March 25, 2017 22:14 - CONCLUSION: Marked hydronephrosis, Grade IV left kidney. There is no hydronephrosis on the right. Markedly thickened bladder wall. Damien Peña MD FACR Chest X-Ray 03/22/17 0000 Signed Impressions: Service Date/Time: Wednesday, March 22, 2017 16:05 - CONCLUSION: 1. Diffuse increased interstitial markings likely representing pulmonary edema. There is prominence of the central pulmonary vessels. 2. Hazy density bases with silhouetting hemidiaphragms from superimposed areas of consolidation/ atelectasis and effusions. Art Olivera MD Chest CT 03/21/17 0000 Signed Impressions: Service Date/Time: Tuesday, March 21, 2017 13:03 - CONCLUSION: 1. Moderate to large bilateral pleural effusions with associated compressive atelectasis in the lower lobes. 2. Bilateral patchy somewhat nodular groundglass opacities with upper lobe predominance likely related to positive fluid balance. 3. Diffuse sclerotic metastasis to the thoracic vertebra, ribs, and left scapula. 4. Bilateral moderate to severe hydronephrosis, incompletely imaged on this exam. This is similar to yesterday's ultrasound exam. 5. 3.6 cm coarsely calcified left thyroid nodule. This can be further evaluated with thyroid ultrasound as indicated. Ferdinand Fisher MD Abdomen/Pelvis CT 03/21/17 0000 Signed Impressions: Service Date/Time: Tuesday, March 21, 2017 13:03 - CONCLUSION: Large bladder mass with bone metastases. Small bilateral pleural effusions. Minimal retroperitoneal adenopathy. Damien Peña MD FACR Lower Extremity Ultrasound 03/20/17 0000 Signed Impressions: Service Date/Time: Monday, March 20, 2017 17:30 - CONCLUSION: Normal examination. Sebastián Greer MD Procedures Cystoscopy, bilateral ureteral stents 03/23/17 Cystoscopy with fulguration 03/24/17 . 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 Spiritual: The patient has a Islam background, but is not affiliated with any particular pentecostal or clergy. 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 Legal: The patient has capacity for decision-making at this time. He is designating his daughter Lisa Ely and son Frank Ross has co-HCS. Ethical issues impacting care: None . Important Contacts Daughter: Christin Ely [phone] Son: Frank Ross [phone] . 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 He does have renal failure requiring dialysis at this time , but it is uncertain whether his kidney function will recover. If he elects to stop dialysis before renal function recovery, certainly he is appropriate for hospice services. Depending on further workup of his malignancy, he would be eligible for hospice services from that perspective also. . Code Status: No Code Plan * DO NOT RESUSCITATE, per patient request 03/25/17 * DECISION-MAKING: Fluctuates and at times confused, did pulled out vas cath, had been on restraits. Seems more clear now. Pt can participate, but palliative care recommentds joint decision making with family. Pt amenable to plan. He is designating his daughter Lisa Ely(1st point of contact). and son Frank Ross has co-HCS. * GOALS: The patient requests DNR. The patient says he does not want long-term dialysis. He is willing to "give my kidneys up to 2 months to wake up and start working again" while he continues dialysis, but he believes he may stop dialysis at that point rather than to continue it long-term. He is willing to consider hospice services if he elects to stop dialysis. Thus far, he has declined biopsy to document whether this is prostate cancer, as he feels he does not want any particular treatment at this time....at at least until the renal failure question is answered. ==He continue to endorse he would want dialysis short term to see it recover, and wants the vas cath to place if needed. Family supports decision. ==He and pt's ex are amenable to ativan prn for confusion and agitation to prevent him from pulling vas cath again. ==He is still undecided about the biopsy. Pt still undecided and state he would want to see if his kidneys improve, before undergoing any biopsy . * SYMPTOMS: The patient has fatigue and an overall feeling of debility, but he has no pain. His dyspnea has resolved. I have no further medication recommendations at this time. * Pruritis- has benadryl ordered. encourage use prn. . * Palliative Care will continue to follow the patient during this hospitalization. . Time Spent Total Floor Time (mins): 45 Attestation To help prompt me to consider important information that might be impacting today's encounter and assessment, information from prior notes written by myself or my colleagues may have been "brought forward" into today's note. My signature on this note, however, is an attestation that I personally performed the exam, history, and/or decision-making noted today, and, unless otherwise indicated, the interactions with patient, family, and staff as well as the review of records all occurred today. I also attest that the listed assessment and stated plan reflect my best clinical judgment today based on the combination of historical information, prior notes, and today's exam/ interactions. When time spent is documented, it refers only to time spent today by the signer, or if indicated, combined time spent today by collaborating physician/nurse practitioner. Hua Calixto MD Mar 28, 2017 14:49
--- NOTE | 2017-03-28 19:17 | HHI.NPPN ---
Subjective History of Present Illness 61 year old with ARF no recovery possible prostate Ca Review of Systems General Constitutional: Fatigue Objective Data Data 03/27/17 03/28/17 19:00 07:00 Intake Total 586 ml 976 ml Output Total 3000 ml Balance -2414 ml 976 ml Intake Oral 240 ml 240 ml IV Total 346 ml 736 ml Output Urine Total 3000 ml # Bowel Movements 0 Vital Signs Date Time Temp Pulse Resp B/P Pulse Ox O2 Delivery O2 Flow Rate FiO2 03/28/17 18:00 62 03/28/17 16:00 98.8 60 22 156/69 100 03/28/17 16:00 60 03/28/17 14:00 57 03/28/17 13:25 100 Nasal Cannula 3.00 Humidified 03/28/17 12:00 53 03/28/17 12:00 98.3 53 20 145/66 100 03/28/17 10:00 55 03/28/17 08:50 100 Nasal Cannula 4.00 Humidified 03/28/17 08:00 98.7 87 20 176/78 100 03/28/17 08:00 67 03/28/17 07:15 100 Nasal Cannula 5.00 Humidified 03/28/17 07:14 98 Nasal Cannula 6.00 03/28/17 07:00 100 Nasal Cannula 6.00 Humidified 03/28/17 06:00 60 03/28/17 04:00 98.7 60 12 155/67 94 03/28/17 04:00 60 03/28/17 02:00 59 03/28/17 00:00 62 03/28/17 00:00 99.1 62 15 160/74 95 03/27/17 22:00 58 03/27/17 20:29 96 Nasal Cannula 6.00 03/27/17 20:00 98.6 74 22 159/73 97 03/27/17 20:00 74 -: 03/28/17 1243 03/28/17 1230 Physical Exam General Appearance: Well Developed, Well Nourished Pulmonary Resp Exam: Clear Bilaterally, Breath Sounds Equal Cardiology CV Exam: Regular, Normal Sinus Rhythm Gastrointestinal/Abdomen GI Exam: Soft, Non-Tender, Bowel Sounds Present Extremeties Extremities Exam: Moderate Edema Assessment/Plan Problem List: (1) Acute renal failure Plan: Initiated on HD. Continue to monitor fluid and electrolyte status. Bladder mass is noted. Urology has seen him. He has metastatic disease. Refused biopsy. Hematology on the case. He is s/p bilateral ureteral stent placements. kidney failure due to long standing hydronephrosis no recovery continue HD Need PermCath NPO in am (2) Uropathy, obstructive Plan: Severe followed by urology (3) Anemia Plan: on epogen Problem Qualifiers (1) Anemia: Qualified Code: D64.9 - Anemia, unspecified type Karena Duval MD Mar 28, 2017 19:17
[2017-03-29] VITALS (16 sets, daily range): BP systolic 152–178; BP diastolic 68–78; PULSE 52–61; RESP 12–26; TEMP 98–98.7; O2SAT 96–100
[2017-03-29] MEDS: CEFEPIME INJ 1,000 MG in SODIUM CHLORIDE 0.9% INJ 100 ML IV SCH (00:01)
[2017-03-29] MEDS: CHLORHEXIDINE GLUCONATE 2 % 1 PACK (2 CLOTHS) TOP SCH (00:01)
[2017-03-29] MEDS: AMINOCAPROIC ACID INJ 3,000 MG in SODIUM CHLORIDE 0.9% IRR BAG 3,000 ML IRRIGATION SCH (02:48)
[2017-03-29 05:23] LABS: INTERNATIONAL NORMALIZED RATIO 1.2 RATIO; PROTHROMBIN TIME - PATIENT 12.8 SEC (9.8-11.6)
[2017-03-29 05:41] LABS: BICARBONATE 29.4 MEQ/L (21.0-32.0); POTASSIUM 3.8 MEQ/L (3.5-5.1)
[2017-03-29 05:51] LABS: AUTOMATED NEUTROPHIL # 11.1 TH/MM3 (1.8-7.7); BASOPHIL # 0.1 TH/MM3 (0-0.2); BASOPHIL % 0.5 % (0.0-2.0); EOSINOPHIL # 1.5 TH/MM3 (0-0.4); HEMATOCRIT 27.9 % (39.0-51.0); HEMO FLAGS DIFF FINAL; LYMPH % 24.1 % (9.0-44.0); LYMPHOCYTE # 4.4 TH/MM3 (1.0-4.8); MEAN CELL VOLUME 87.6 FL (80.0-100.0); MEAN CORPUSCULAR HGB CONC 33.1 % (32.0-36.0); MONO % 6.8 % (0.0-8.0); NEUT % 60.6 % (16.0-70.0); PLATELET COUNT 178 TH/MM3 (150-450); RED BLOOD COUNT 3.19 MIL/MM3 (4.50-5.90); RED CELL DISTRIBUTION WIDTH 15.8 % (11.6-17.2); WHITE BLOOD COUNT 18.3 TH/MM3 (4.0-11.0)
[2017-03-29] MEDS: fentaNYL CITRATE 250 MCG/5 ML AMP ONE (08:30)
[2017-03-29] MEDS: MIDAZOLAM HCL 5 MG/5 ML VIAL ONE (08:30)
[2017-03-29] MEDS: DOCUSATE SODIUM 50 MG/SENNA 8.6 MG TAB PO SCH ×2 (09:00→20:27)
[2017-03-29] MEDS: CALCIUM ACETATE 667 MG CAP PO SCH ×3 (09:00→18:00)
[2017-03-29] MEDS: FOLIC ACID 1 MG TAB PO SCH (09:00)
[2017-03-29] MEDS: CHOLECALCIFEROL (VIT D3) 5000 UNIT CAP PO SCH (09:00)
[2017-03-29] MEDS: PANTOPRAZOLE SODIUM 40 MG VIAL IV SCH (09:00)
[2017-03-29] MEDS: THIAMINE HCL 100 MG TAB PO SCH (09:00)
[2017-03-29] MEDS: METOPROLOL TARTRATE 25 MG TAB PO SCH ×2 (09:00→20:27)
[2017-03-29] MEDS: SODIUM CHLORIDE 0.9% FLUSH 10 ML FLUSH IV FLUSH SCH ×2 (09:00→20:27)
[2017-03-29] MEDS: MULTIVITAMINS/MINERALS THERAPEUTIC TAB PO SCH (09:00)
[2017-03-29] MEDS ORDERED: LIDOCAINE 1%/EPINEPHrine 1:100,000 SOLN 20 ML VIAL ONE (09:27)
--- NOTE | 2017-03-29 09:36 | RADRPT ---
EXAM DATE/TIME: 03/29/2017 08:43 [facility] COMPARISON: No previous studies available for comparison. INDICATIONS : Right arm swelling. MEDICAL HISTORY : Dyspnea. Right inguinal hernia. Hematuria. Depression. Anxiety. Fatigue. Acute renal failure. Uropath y. Anemia. Pulmonary edema. SURGICAL HISTORY : Cystoscopy. ENCOUNTER: Initial ACUITY: 1 day PAIN SCORE: 0/10 LOCATION: Right arm. FINDINGS: There is spontaneous flow documented in the brachial, basilic, cephalic, axillary, and subclavian vei ns. The vessels are compressible and augmentation response is documented. No filling defects are se en. The flow is phasic with respiration. Direction of flow in the jugular vein is caudal. CONCLUSION: Normal examination. Art John MD on March 29, 2017 at 9:34 Board Certified Radiologist. This report was verified electronically.
--- NOTE | 2017-03-29 09:53 | PD.RAD ---
Post Procedure Progress Note Pre Procedure Diagnosis: (1) Acute renal failure Post Procedure Diagnosis: (1) Acute renal failure Procedure Date: Mar 29, 2017 Supervising Radiologist: Ferdinand Fisher Proceduralist/Assist: Karla Murphy, RT(R)(CV), Rivka Hurtado, RT(R), Lindsey Pierce RT(R) Plan of Activity Patient to Unit: Nursing Unit Patient Condition: Good Additional Comments: placed right IJ HD cath See PACS Report for procedural detail/treatment Ferdinand Fisher MD Mar 29, 2017 09:53
[2017-03-29] MEDS ORDERED: SODIUM CHLORIDE 0.9% FLUSH 10 ML FLUSH IVF PRN (10:00)
[2017-03-29] MEDS ORDERED: HEPARIN SODIUM - IV 2,000 UNITS/2 ML VIAL IV FLUSH PRN (10:00)
--- NOTE | 2017-03-29 10:20 | RADRPT ---
EXAM DATE/TIME: 03/29/2017 08:50 [facility] COMPARISON: No previous studies available for comparison. INDICATIONS : Patient with acute renal failure in need of tunnelled dialysis catheter placement. MEDICAL HISTORY : HTN SURGICAL HISTORY : Dialysis catheter ENCOUNTER: Initial ACUITY: 1 week PAIN SCORE: 0/10 FLUORO TIME: 0.5 minutes IMAGE SERIES: 0 SEDATION TIME: 30 minutes ACCESS: Right internal jugular vein SEDATION: 1.) 1.5 mg midazolam (Versed) IV 2.) 75 mcg fentanyl (Sublimaze) IV Prophylactic antibiotics were administered with appropriate pre-procedure timing. Vancomycin within 2 hours of procedure, Ancef (or alternative) within 1 hour of procedure. DEVICE: 1. 15 [place]i dual lumen 23 cm Mckeon II Plus catheter PROCEDURE : 1. Ultrasound-guided venipuncture. 2. PermaCath placement. 3. Conscious sedation with continuous EKG and oximetry monitoring. The risks, benefits and alternatives to the procedure were explained and verbal and written consent w as obtained. The site was prepped in sterile fashion. Full sterile technique was used, including ca p, mask, sterile gloves and gown and a large sterile sheet. Hand hygiene and 2% chlorhexidine and/or betadine/alcohol prep was utilized per protocol for cutaneous antisepsis. The skin and subcutaneous tissues were infiltrated with local anesthetic solution. With ultrasound and fluoroscopic guidance a dermatotomy was created over the prescribed vein. A micr opuncture set was used to access the targeted vein and serial dilatation was performed to accept the prescribed length catheter. A subcutaneous tunnel was created in a retrograde fashion the catheter w as pulled through the tunnel. The catheter was flushed and assembled and locked with heparin. The c atheter was sutured in place. Conscious sedation was performed with the prescribed dosages and duration as above in the presence of an independent trained radiology nurse to assist in the monitoring of the patient. EKG and oximetry remained stable throughout the procedure. The patient tolerated the procedure well and there were n o complications. The patient was sent to post anesthesia recovery in stable condition. CONCLUSION: Uncomplicated PermaCath placement as above. Ferdinand Fisher MD on March 29, 2017 at 10:18 Board Certified Radiologist. This report was verified electronically.
--- NOTE | 2017-03-29 11:34 | HHI.NPPN ---
Subjective History of Present Illness 61 year old with ARF no recovery possible prostate Ca Review of Systems General Constitutional: Fatigue Objective Data Data 03/28/17 03/29/17 19:00 07:00 Intake Total 343 ml 736 ml Output Total 1525 ml Balance 343 ml -789 ml IV Total 343 ml 736 ml Output Urine Total 1525 ml # Bowel Movements 0 0 Vital Signs Date Time Temp Pulse Resp B/P Pulse Ox O2 Delivery O2 Flow Rate FiO2 03/29/17 10:15 98.0 57 20 163/68 98 03/29/17 10:00 56 03/29/17 08:00 55 03/29/17 08:00 98.6 56 16 178/78 98 03/29/17 07:02 100 Nasal Cannula 2.00 03/29/17 07:00 99 Room Air 03/29/17 06:00 56 03/29/17 04:00 98.4 55 12 173/77 97 03/29/17 04:00 55 03/29/17 02:00 52 03/29/17 01:35 99 Nasal Cannula 3.00 03/29/17 00:00 58 03/29/17 00:00 98.7 58 16 152/70 97 03/28/17 22:00 61 03/28/17 20:00 63 03/28/17 20:00 98.6 63 20 165/71 98 03/28/17 19:00 98 Nasal Cannula 3.00 Humidified 03/28/17 18:00 62 03/28/17 16:00 98.8 60 22 156/69 100 03/28/17 16:00 60 03/28/17 14:00 57 03/28/17 13:25 100 Nasal Cannula 3.00 Humidified 03/28/17 12:00 53 03/28/17 12:00 98.3 53 20 145/66 100 -: 03/29/17 0402 03/29/17 0402 Physical Exam General Appearance: Well Developed, Well Nourished Pulmonary Resp Exam: Clear Bilaterally, Breath Sounds Equal Cardiology CV Exam: Regular, Normal Sinus Rhythm Gastrointestinal/Abdomen GI Exam: Soft, Non-Tender, Bowel Sounds Present Extremeties Extremities Exam: Moderate Edema Assessment/Plan Problem List: (1) Acute renal failure Plan: Initiated on HD. Continue to monitor fluid and electrolyte status. kidney failure due to long standing hydronephrosis no recovery continue HD post PermCath seen during hemodialysis 2 L UF blood flow 400 cc/min (2) Uropathy, obstructive Plan: Severe followed by urology (3) Anemia Plan: on epogen Problem Qualifiers (1) Anemia: Qualified Code: D64.9 - Anemia, unspecified type Karena Duval MD Mar 29, 2017 11:34
--- NOTE | 2017-03-29 12:29 | HHI.PR ---
Subjective Remarks Follow-up bladder mass/obstruction uropathy/ 03/26/17-patient seen and examined, denies any chest pain or shortness of breath as well as pelvic fully with clear urine CBI running. Renal indices improving. Patient still doesn't want any bladder biopsy performed. Son by the bedside 03/27/17-patient seen and examined, CBI still running, worsening renal indices. No acute event overnight 03/28/17-patient seen and examined, somehow lethargic today however patient arousable and talking to me when possible. He states he wants miracle to be performed 03/29/17-patient seen and examined, has right upper extremity swelling, Pollock with bloody output, currently receiving hemodialysis after Vas-Cath was this morning Objective Vitals Vital Signs Date Time Temp Pulse Resp B/P Pulse Ox O2 Delivery O2 Flow Rate FiO2 03/29/17 10:15 98.0 57 20 163/68 98 03/29/17 10:00 56 03/29/17 08:00 55 03/29/17 08:00 98.6 56 16 178/78 98 03/29/17 07:02 100 Nasal Cannula 2.00 03/29/17 07:00 99 Room Air 03/29/17 06:00 56 03/29/17 04:00 98.4 55 12 173/77 97 03/29/17 04:00 55 03/29/17 02:00 52 03/29/17 01:35 99 Nasal Cannula 3.00 03/29/17 00:00 58 03/29/17 00:00 98.7 58 16 152/70 97 03/28/17 22:00 61 03/28/17 20:00 63 03/28/17 20:00 98.6 63 20 165/71 98 03/28/17 19:00 98 Nasal Cannula 3.00 Humidified 03/28/17 18:00 62 03/28/17 16:00 98.8 60 22 156/69 100 03/28/17 16:00 60 03/28/17 14:00 57 03/28/17 13:25 100 Nasal Cannula 3.00 Humidified I/O 03/28/17 03/28/17 03/28/17 03/29/17 03/29/17 03/29/17 07:00 15:00 23:00 07:00 15:00 23:00 Intake Total 401 ml 343 ml 348 ml 388 ml Output Total 725 ml 800 ml Balance 401 ml 343 ml -377 ml -412 ml IV Total 401 ml 343 ml 348 ml 388 ml Output Urine Total 725 ml 800 ml # Bowel Movements 0 0 0 Result Diagram: 03/29/1740103/29/17401 Imaging Last Impressions Upper Extremity Ultrasound 03/29/17 Signed Impressions: Service Date/Time: Wednesday, March 29, 2017 08:43 - CONCLUSION: Normal examination. Art John MD Catheter Placement X-Ray 03/29/17 Signed Impressions: Service Date/Time: Wednesday, March 29, 2017 08:50 - CONCLUSION: Uncomplicated PermaCath placement as above. Ferdinand Fisher MD Renal Ultrasound 03/25/17 Signed Impressions: Service Date/Time: Saturday, March 25, 2017 22:14 - CONCLUSION: Marked hydronephrosis, Grade IV left kidney. There is no hydronephrosis on the right. Markedly thickened bladder wall. Damien Peña MD FACR Chest X-Ray 03/22/17 Signed Impressions: Service Date/Time: Wednesday, March 22, 2017 16:05 - CONCLUSION: 1. Diffuse increased interstitial markings likely representing pulmonary edema. There is prominence of the central pulmonary vessels. 2. Hazy density bases with silhouetting hemidiaphragms from superimposed areas of consolidation/ atelectasis and effusions. Art Olivera MD Chest CT 03/21/17 Signed Impressions: Service Date/Time: Tuesday, March 21, 2017 13:03 - CONCLUSION: 1. Moderate to large bilateral pleural effusions with associated compressive atelectasis in the lower lobes. 2. Bilateral patchy somewhat nodular groundglass opacities with upper lobe predominance likely related to positive fluid balance. 3. Diffuse sclerotic metastasis to the thoracic vertebra, ribs, and left scapula. 4. Bilateral moderate to severe hydronephrosis, incompletely imaged on this exam. This is similar to yesterday's ultrasound exam. 5. 3.6 cm coarsely calcified left thyroid nodule. This can be further evaluated with thyroid ultrasound as indicated. Ferdinand Fisher MD Abdomen/Pelvis CT 03/21/17 Signed Impressions: Service Date/Time: Tuesday, March 21, 2017 13:03 - CONCLUSION: Large bladder mass with bone metastases. Small bilateral pleural effusions. Minimal retroperitoneal adenopathy. Damien Peña MD FACR Lower Extremity Ultrasound 03/20/17 0000 Signed Impressions: Service Date/Time: Monday, March 20, 2017 17:30 - CONCLUSION: Normal examination. Sebastián Greer MD Objective Remarks GENERAL: NAD but somehow lethargic SKIN: Warm and dry. HEAD: Normocephalic. EYES: No scleral icterus. No injection or drainage. NECK: Supple, trachea midline. No JVD or lymphadenopathy. CARDIOVASCULAR: Regular rate and rhythm without murmurs, gallops, or rubs. RESPIRATORY: Breath sounds equal bilaterally. No accessory muscle use. GASTROINTESTINAL: Abdomen soft, non-tender, nondistended. MUSCULOSKELETAL: No cyanosis, or edema. BACK: Nontender without obvious deformity. No CVA tenderness. A/P Problem List: (1) obstructive uropathy, renal failure Status: Acute (2) Bladder mass ICD Code: N32.89 Status: Acute (3) apparent bony metastases, elevated PSA, suspected prostate cancer Status: Acute (4) acute renal failure, on dialysis Status: Acute (5) hypertension Status: Acute (6) Anemia due to acute blood loss ICD Code: D62 Status: Acute Assessment and Plan 61-year-old man with Hypertension Pulmonary edema Continue to Hold ASA /anticoagulants at this time as no symptoms of ACS and patient has symptomatic anemia. Metoprolol 25 mg by mouth every 12 hours. Not a candidate for ETHEL inhibitor due to acute kidney injury. Bladder mass Acute kidney injury/ CKD Urinary obstruction Urinary bladder clot s/p cystoscopy Hematuria Underwent cystoscopy with ureteral stenting on 03/[address] Fine. Currently on hemodialysis since 03/22 and HD resume today 03/29/17 Repeat cystoscopy with fulguration of bleeding sites and urinary bladder on 03/24 CBI to be continued per urology. Patient may eventually require transrectal ultrasound and prostate needle biopsy to confirm diagnosis of prostate cancer which may be performed outpatient. Patient is refusing further evaluation of metastatic bone disease per documentation by hematology. Appreciate input from palliative care medicine Anemia of acute blood loss Leukocytosis - lymphocytosis. Transfused 8 units of PRBCs since admission Anemia secondary to hematuria and possible bone metastases. Appreciate input from Hematology consulted and evaluating patient for further anemia workup as well as for metastatic disease. Given DDAVP 20 mcg IV on 03/22 4 suspected platelet dysfunction secondary to uremia and ongoing hematuria. Right upper extremity swelling Doppler negative for thrombosis PROPH: Protonix 40 g IV daily for stress ulcer prophylaxis. SCDs for DVT prophylaxis. Hold on pharmacologic DVT prophylaxis due to severe anemia. Rene Santiago MD Mar 29, 2017 12:29
[2017-03-29] MEDS: DEXT 5%-NACL 0.45% 1000 ML INJ 1,000 ML IV SCH (12:42)
--- NOTE | 2017-03-29 13:39 | PD.ONC.PN ---
Subjective Subjective Remarks Afebrile overnight. Patient resting in bed with daughter at bedside. Receiving HD. Had permacath placed this morning. Objective Data Date Time Temp Pulse Resp B/P Pulse Ox O2 Delivery O2 Flow Rate FiO2 03/29/17 10:15 98.0 57 20 163/68 98 03/29/17 10:00 56 03/29/17 08:00 55 03/29/17 08:00 98.6 56 16 178/78 98 03/29/17 07:02 100 Nasal Cannula 2.00 03/29/17 07:00 99 Room Air 03/29/17 06:00 56 03/29/17 04:00 98.4 55 12 173/77 97 03/29/17 04:00 55 03/29/17 02:00 52 03/29/17 01:35 99 Nasal Cannula 3.00 03/29/17 00:00 58 03/29/17 00:00 98.7 58 16 152/70 97 03/28/17 22:00 61 03/28/17 20:00 63 03/28/17 20:00 98.6 63 20 165/71 98 03/28/17 19:00 98 Nasal Cannula 3.00 Humidified 03/28/17 18:00 62 03/28/17 16:00 98.8 60 22 156/69 100 03/28/17 16:00 60 03/28/17 14:00 57 03/29/17 03/29/17 03/29/17 07:00 15:00 23:00 Intake Total 388 ml Output Total 800 ml Balance -412 ml Result Diagram: 03/29/172 03/29/17 0402 Laboratory Results Laboratory Tests Test 03/29/17 04:02 White Blood Count 18.3 TH/MM3 Red Blood Count 3.19 MIL/MM3 Hemoglobin 9.3 GM/DL Hematocrit 27.9 % Mean Corpuscular Volume 87.6 FL Mean Corpuscular Hemoglobin 29.0 PG Mean Corpuscular Hemoglobin 33.1 % Concent Red Cell Distribution Width 15.8 % Platelet Count 178 TH/MM3 Mean Platelet Volume 8.4 FL Neutrophils (%) (Auto) 60.6 % Lymphocytes (%) (Auto) 24.1 % Monocytes (%) (Auto) 6.8 % Eosinophils (%) (Auto) 8.0 % Basophils (%) (Auto) 0.5 % Neutrophils # (Auto) 11.1 TH/MM3 Lymphocytes # (Auto) 4.4 TH/MM3 Monocytes # (Auto) 1.2 TH/MM3 Eosinophils # (Auto) 1.5 TH/MM3 Basophils # (Auto) 0.1 TH/MM3 CBC Comment DIFF FINAL Differential Comment Prothrombin Time 12.8 SEC Prothromb Time International 1.2 RATIO Ratio Sodium Level 138 MEQ/L Potassium Level 3.8 MEQ/L Chloride Level 99 MEQ/L Carbon Dioxide Level 29.4 MEQ/L Anion Gap 10 MEQ/L Blood Urea Nitrogen 63 MG/DL Creatinine 9.11 MG/DL Estimat Glomerular Filtration 6 ML/MIN Rate Random Glucose 99 MG/DL Calcium Level 7.6 MG/DL Phosphorus Level 5.1 MG/DL Imaging Studies Last 24 hours Impressions Upper Extremity Ultrasound 03/29/17 0000 Signed Impressions: Service Date/Time: Wednesday, March 29, 2017 08:43 - CONCLUSION: Normal examination. Art John MD Catheter Placement X-Ray 03/29/17 0000 Signed Impressions: Service Date/Time: Wednesday, March 29, 2017 08:50 - CONCLUSION: Uncomplicated PermaCath placement as above. Ferdinand Fisher MD Administered Medications Medications (Trade) Dose Ordered Sig/Nasreen Route PRN Reason Start Time Stop Time Status Last Admin Dose Admin Sodium Chloride (NS Flush) 2 ml BID IV FLUSH 03/20/17 21:00 03/28/17 21:09 Morphine Sulfate (Morphine Inj) 2 mg Q2H PRN IV PUSH PAIN 6-10 03/20/17 18:30 03/26/17 02:06 Pantoprazole Sodium (Protonix Inj) 40 mg DAILY IV 03/21/17 09:00 03/28/17 07:54 Ondansetron HCl (Zofran Inj) 4 mg Q6H PRN IV NAUSEA OR VOMITING 03/20/17 18:15 03/23/17 17:52 Miscellaneous Information 1 Q361D XX 03/20/17 18:15 03/20/17 21:46 Chlorhexidine Gluconate (Chlorhexidine 2% Cloth) Taper DAILY@04 TOP 03/21/17 04:00 03/17/18 03:59 03/26/17 01:38 Senna/Docusate Sodium (Negin-Colace) 1 tab BID PO 03/20/17 21:00 03/28/17 21:09 Lactulose 30 ml 30 ml DAILY PRN PO SEVERE CONSITIPATION 03/20/17 18:15 03/25/17 08:59 Cefepime HCl/ Sodium Chloride (Maxipime Inj/NS Inj) 100 ml @ 200 mls/hr Q24H IV 03/21/17 00:00 03/29/17 00:01 Metoprolol Tartrate (Lopressor) 25 mg Q12HR PO 03/21/17 02:45 03/28/17 21:09 Calcium Acetate 667 mg 667 mg TID PO 03/21/17 18:00 03/28/17 17:51 Sodium Chloride (NS 1000 ml Inj) 1,000 ml @ 0 mls/hr Q0M PRN IV For Prime & Rinse Back 03/22/17 11:58 03/25/17 14:07 Heparin Sodium (Porcine) (Heparin Inj) UNSCH PRN .XX WITH DIALYSIS 03/22/17 12:00 03/23/17 08:47 Gentamicin Sulfate (Gentamicin (Dialysis) Inj) 20 mg UNSCH PRN IV WITH DIALYSIS 03/22/17 12:00 03/25/17 14:06 Epoetin Hermes 80277 units 10,000 units UNSCH PRN IV WITH DIALYSIS 03/22/17 12:00 03/25/17 14:06 Aminocaproic Acid/ Sodium Chloride (Amicar Inj/NS Irr Bag) 3,012 ml @ 125.5 mls/ hr Q24H IRRIGATION 03/22/17 13:30 03/29/17 02:48 Cholecalciferol (Vitamin D3) 5,000 units DAILY PO 03/23/17 09:00 03/28/17 07:55 Hydralazine HCl 20 mg 20 mg Q2HR PRN IV PUSH SBP greater than 160mm Hg 03/23/17 16:30 03/28/17 09:02 Sodium Chloride (NS Irr Bag) 3,000 ml @ 125.5 mls/ hr Q24H IRRIGATION 03/23/17 17:00 03/24/17 19:30 Folic Acid (Folate) 1 mg DAILY PO 03/26/17 11:45 03/31/17 11:44 03/28/17 07:54 Thiamine HCl (Vitamin B1) 100 mg DAILY PO 03/26/17 11:45 03/28/17 07:54 Multivitamins/ Minerals Therapeutic (Theragran M Tab) 1 tab DAILY PO 03/26/17 11:45 03/31/17 11:44 03/28/17 07:54 Lorazepam (Ativan) 1 mg Q4H PRN PO CIWA 8 - 10 03/26/17 11:30 03/27/17 10:52 Lorazepam 2 mg 2 mg Q2H PRN PO CIWA 11-14 03/26/17 11:30 03/28/17 00:15 Dextrose/Sodium Chloride (D5W-1/2 NS 1000 ml Inj) 1,000 ml @ 42 mls/hr [id number] IV 03/26/17 13:15 03/28/17 09:07 Objective Remarks GENERAL: Middle aged male, upright in bed, in nad. SKIN: Warm and dry. perma-cath, right chest wall HEAD: Normocephalic. EYES: No injection or drainage. NECK: Supple, trachea midline. CARDIOVASCULAR: Regular rate and rhythm RESPIRATORY: anterior marinelli clear, on 2L O2 via NC GASTROINTESTINAL: Abdomen soft, non-tender, nondistended. EXTREMITIES: No cyanosis.e NEUROLOGICAL: awake and alert, normal speech. Assessment/Plan Problem List: (1) Bladder mass Status: Acute Plan: 03/27: d/w patient and daughter at bedside. patient would be appropriate for hospice if he desired, or we could still obtain a biopsy of bone to establish diagnosis. patient does not want hospice, wants to continue with dialysis. he does not want a biopsy PSA elevated CT ab/pelvis: + bladder mass with bony mets. CT chest: bilateral pleural effusions. + bony mets to thoracic vertebra, ribs, left scapula (2) Anemia Status: Acute Plan: --transfuse as needed --hemoccult negative --keren negative --no sign of hemolysis. --slightly elevated retic count, no sign of iron deficiency Assessment 61y/o male admitted with ARF, CT shows possible bladder mass and bony mets + elevated PSA. Attending Statement No new complaints The the the Receiving dialysis We will follow The exam, history, and the medical decision-making described in the above note were completed with the assistance of the mid-level provider. I reviewed and agree with the findings presented. I attest that I had a [id number] encounter with the patient on the same day, and personally performed and documented my assessment and findings in the medical record. Problem Qualifiers (1) Anemia: Qualified Code: D64.9 - Anemia, unspecified type Raquel Stephens Mar 29, 2017 13:38 Cam Arceo MD Mar 29, 2017 22:18
[2017-03-29] MEDS: SODIUM CHLORIDE 0.9% IRRIGATION SCH (17:00)
[2017-03-29] MEDS: IRR IRRIGATION SCH (17:00)
[2017-03-30] VITALS (14 sets, daily range): BP systolic 116–160; BP diastolic 58–98; PULSE 52–61; RESP 15–29; TEMP 98.4–98.6; O2SAT 95–98
[2017-03-30] MEDS: CEFEPIME INJ 1,000 MG in SODIUM CHLORIDE 0.9% INJ 100 ML IV SCH ×2 (01:06→23:22)
[2017-03-30] MEDS: CHLORHEXIDINE GLUCONATE 2 % 1 PACK (2 CLOTHS) TOP SCH (01:06)
[2017-03-30 05:06] LABS: BICARBONATE 29.2 MEQ/L (21.0-32.0); POTASSIUM 3.8 MEQ/L (3.5-5.1)
[2017-03-30] MEDS: hydrALAZINE HCL 20 MG/ML VIAL IV PUSH PRN (05:57)
[2017-03-30] MEDS: FOLIC ACID 1 MG TAB PO SCH (09:10)
[2017-03-30] MEDS: MULTIVITAMINS/MINERALS THERAPEUTIC TAB PO SCH (09:10)
[2017-03-30] MEDS: THIAMINE HCL 100 MG TAB PO SCH (09:10)
[2017-03-30] MEDS: CALCIUM ACETATE 667 MG CAP PO SCH ×3 (09:10→18:00)
[2017-03-30] MEDS: CHOLECALCIFEROL (VIT D3) 5000 UNIT CAP PO SCH (09:10)
[2017-03-30] MEDS: METOPROLOL TARTRATE 25 MG TAB PO SCH ×2 (09:10→20:36)
[2017-03-30] MEDS: DOCUSATE SODIUM 50 MG/SENNA 8.6 MG TAB PO SCH ×2 (09:10→20:36)
[2017-03-30] MEDS: PANTOPRAZOLE SODIUM 40 MG VIAL IV SCH (09:12)
[2017-03-30] MEDS: SODIUM CHLORIDE 0.9% FLUSH 10 ML FLUSH IV FLUSH SCH ×2 (09:12→20:40)
--- NOTE | 2017-03-30 09:25 | HHI.PR ---
Subjective Remarks Follow-up bladder mass/obstruction uropathy/ 03/26/17-patient seen and examined, denies any chest pain or shortness of breath as well as pelvic fully with clear urine CBI running. Renal indices improving. Patient still doesn't want any bladder biopsy performed. Son by the bedside 03/27/17-patient seen and examined, CBI still running, worsening renal indices. No acute event overnight 03/28/17-patient seen and examined, somehow lethargic today however patient arousable and talking to me when possible. He states he wants miracle to be performed 03/29/17-patient seen and examined, has right upper extremity swelling, Pollock with bloody output, currently receiving hemodialysis after Vas-Cath was this morning 03/30/17-patient seen and examined him a he did receive hemodialysis yesterday. Pollock with presence of gross hematuria. Patient now is waiting to talk to palliative care regarding possible comfort measures as he no longer want aggressive treatment Objective Vitals Vital Signs Date Time Temp Pulse Resp B/P Pulse Ox O2 Delivery O2 Flow Rate FiO2 03/30/17 07:30 98 Nasal Cannula 2.00 03/30/17 07:00 99 Room Air 03/30/17 06:00 59 03/30/17 04:00 56 03/30/17 04:00 98.6 56 29 157/98 97 03/30/17 02:00 58 03/30/17 00:00 98.5 54 15 160/68 97 03/30/17 00:00 54 03/29/17 22:00 56 03/29/17 20:00 61 03/29/17 20:00 98.3 61 26 157/74 99 03/29/17 19:50 96 Nasal Cannula 2.00 03/29/17 19:00 97 Nasal Cannula Humidified 03/29/17 19:00 Nasal Cannula Humidified 03/29/17 18:00 56 03/29/17 16:00 98.6 56 20 155/70 98 03/29/17 16:00 60 03/29/17 14:00 56 03/29/17 12:00 60 03/29/17 12:00 98.4 60 12 168/77 97 03/29/17 10:15 98.0 57 20 163/68 98 03/29/17 10:00 56 I/O 7/08/0503/29/17 03/29/17 03/30/17 03/30/17 03/30/17 07:00 15:00 23:00 07:00 15:00 23:00 Intake Total 388 ml 200 ml 110 ml Output Total 800 ml 2000 ml 1750 ml 250 ml Balance -412 ml -2000 ml -1550 ml -140 ml IV Total 388 ml 200 ml 110 ml Output Urine Total 800 ml 1750 ml 250 ml Hemodialysis 2000 ml # Bowel Movements 0 0 Result Diagram: 03/29/17 0402 03/30/17 0352 Imaging Last Impressions Upper Extremity Ultrasound 03/29/17 0000 Signed Impressions: Service Date/Time: Wednesday, March 29, 2017 08:43 - CONCLUSION: Normal examination. Art John MD Catheter Placement X-Ray 03/29/17 0000 Signed Impressions: Service Date/Time: Wednesday, March 29, 2017 08:50 - CONCLUSION: Uncomplicated PermaCath placement as above. Ferdinand Fisher MD Renal Ultrasound 03/25/17 0000 Signed Impressions: Service Date/Time: Saturday, March 25, 2017 22:14 - CONCLUSION: Marked hydronephrosis, Grade IV left kidney. There is no hydronephrosis on the right. Markedly thickened bladder wall. Damien Peña MD FACR Chest X-Ray 03/22/17 0000 Signed Impressions: Service Date/Time: Wednesday, March 22, 2017 16:05 - CONCLUSION: 1. Diffuse increased interstitial markings likely representing pulmonary edema. There is prominence of the central pulmonary vessels. 2. Hazy density bases with silhouetting hemidiaphragms from superimposed areas of consolidation/ atelectasis and effusions. Art Olivera MD Chest CT 03/21/17 0000 Signed Impressions: Service Date/Time: Tuesday, March 21, 2017 13:03 - CONCLUSION: 1. Moderate to large bilateral pleural effusions with associated compressive atelectasis in the lower lobes. 2. Bilateral patchy somewhat nodular groundglass opacities with upper lobe predominance likely related to positive fluid balance. 3. Diffuse sclerotic metastasis to the thoracic vertebra, ribs, and left scapula. 4. Bilateral moderate to severe hydronephrosis, incompletely imaged on this exam. This is similar to yesterday's ultrasound exam. 5. 3.6 cm coarsely calcified left thyroid nodule. This can be further evaluated with thyroid ultrasound as indicated. Ferdinand Fisher MD Abdomen/Pelvis CT 03/21/17 0000 Signed Impressions: Service Date/Time: Tuesday, March 21, 2017 13:03 - CONCLUSION: Large bladder mass with bone metastases. Small bilateral pleural effusions. Minimal retroperitoneal adenopathy. Damien Peña MD FACR Lower Extremity Ultrasound 03/20/17 0000 Signed Impressions: Service Date/Time: Monday, March 20, 2017 17:30 - CONCLUSION: Normal examination. Sebastián Greer MD Objective Remarks GENERAL: NAD but somehow lethargic SKIN: Warm and dry. HEAD: Normocephalic. EYES: No scleral icterus. No injection or drainage. NECK: Supple, trachea midline. No JVD or lymphadenopathy. CARDIOVASCULAR: Regular rate and rhythm without murmurs, gallops, or rubs. RESPIRATORY: Breath sounds equal bilaterally. No accessory muscle use. GASTROINTESTINAL: Abdomen soft, non-tender, nondistended. MUSCULOSKELETAL: No cyanosis, or edema. BACK: Nontender without obvious deformity. No CVA tenderness. A/P Problem List: (1) obstructive uropathy, renal failure Status: Acute (2) Bladder mass ICD Code: N32.89 Status: Acute (3) apparent bony metastases, elevated PSA, suspected prostate cancer Status: Acute (4) acute renal failure, on dialysis Status: Acute (5) hypertension Status: Acute (6) Anemia due to acute blood loss ICD Code: D62 Status: Acute Assessment and Plan 61-year-old man with Hypertension Pulmonary edema Continue to Hold ASA /anticoagulants at this time as no symptoms of ACS and patient has symptomatic anemia. Metoprolol 25 mg by mouth every 12 hours. Still Not a candidate for ETHEL inhibitor due to acute kidney injury. Bladder mass Acute kidney injury/ CKD Urinary obstruction Urinary bladder clot s/p cystoscopy Hematuria Underwent cystoscopy with ureteral stenting on 03/[address] Fine. Currently on hemodialysis since 03/22 and HD resumed on 03/29/17 after Vas-Cath was asked operation Repeat cystoscopy with fulguration of bleeding sites and urinary bladder on 03/24 CBI to be continued per urology. Patient may eventually require transrectal ultrasound and prostate needle biopsy to confirm diagnosis of prostate cancer which may be performed outpatient. Patient is refusing further evaluation of metastatic bone disease per documentation by hematology. Patient is now willing to discuss about comfort measures with palliative care medicine as of today 03/30/17 Anemia of acute blood loss Leukocytosis - lymphocytosis. Transfused 8 units of PRBCs since admission Anemia secondary to hematuria and possible bone metastases. Appreciate input from Hematology consulted and evaluating patient for further anemia workup as well as for metastatic disease. Given DDAVP 20 mcg IV on 03/22 4 suspected platelet dysfunction secondary to uremia and ongoing hematuria. Right upper extremity swelling Doppler negative for thrombosis PROPH: Protonix 40 g IV daily for stress ulcer prophylaxis. SCDs for DVT prophylaxis. Hold on pharmacologic DVT prophylaxis due to severe anemia. Rene Santiago MD Mar 30, 2017 09:25
[2017-03-30] MEDS: DEXT 5%-NACL 0.45% 1000 ML INJ 1,000 ML IV SCH (12:31)
[2017-03-30] MEDS: AMINOCAPROIC ACID INJ 3,000 MG in SODIUM CHLORIDE 0.9% IRR BAG 3,000 ML IRRIGATION SCH (13:30)
--- NOTE | 2017-03-30 14:23 | HHI.NPPN ---
Subjective History of Present Illness 61 year old with ARF no recovery possible prostate Ca Review of Systems General Constitutional: Fatigue Objective Data Data 03/29/17 03/30/17 19:00 07:00 Intake Total 200 ml 110 ml Output Total 2250 ml 1750 ml Balance -2050 ml -1640 ml IV Total 200 ml 110 ml Output Urine Total 250 ml 1750 ml Hemodialysis 2000 ml # Bowel Movements 0 Vital Signs Date Time Temp Pulse Resp B/P Pulse Ox O2 Delivery O2 Flow Rate FiO2 03/30/17 12:00 61 03/30/17 10:00 59 03/30/17 08:00 61 03/30/17 07:30 98 Nasal Cannula 2.00 03/30/17 07:00 99 Room Air 03/30/17 06:00 59 03/30/17 04:00 56 03/30/17 04:00 98.6 56 29 157/98 97 03/30/17 02:00 58 03/30/17 00:00 98.5 54 15 160/68 97 03/30/17 00:00 54 03/29/17 22:00 56 03/29/17 20:00 61 03/29/17 20:00 98.3 61 26 157/74 99 03/29/17 19:50 96 Nasal Cannula 2.00 03/29/17 19:00 97 Nasal Cannula Humidified 03/29/17 19:00 Nasal Cannula Humidified 03/29/17 18:00 56 03/29/17 16:00 98.6 56 20 155/70 98 03/29/17 16:00 60 -: 03/29/17 0402 03/30/17 0352 Physical Exam General Appearance: Well Developed, Well Nourished Pulmonary Resp Exam: Clear Bilaterally, Breath Sounds Equal Cardiology CV Exam: Regular, Normal Sinus Rhythm Gastrointestinal/Abdomen GI Exam: Soft, Non-Tender, Bowel Sounds Present Extremeties Extremities Exam: Moderate Edema Assessment/Plan Problem List: (1) Acute renal failure Plan: He had dialysis yesterday dc IVF next HD tomorrow if Cr 6 or higher now wants to do Biopsy post PermCath follow BMP no recovery (2) Uropathy, obstructive Plan: Severe followed by urology (3) Anemia Plan: on epogen Problem Qualifiers (1) Anemia: Qualified Code: D64.9 - Anemia, unspecified type Karena Duval MD Mar 30, 2017 14:23
--- NOTE | 2017-03-30 14:26 | HHI.HCPN ---
Reason for visit a. To assist with evaluation and management of symptoms including: Dyspnea, fatigue/weakness b. To assist medical decision maker(s) with: better understanding of current medical conditions; weighing benefits/burdens of medical treatment options; making medical treatment decisions. . Subjective/Interval History Pt denies pain or any discomfort currently. Patient has been very fickle in his goals of care. I was able to sit down with patient, daughter and son today, and have spoken to patient 2x. I have spoke with nephrology concerning patient's case. 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 He did say he wanted to stop everything, but when pt's children showed up and on further discussion, he decided he wants to continue dialysis and undergo biopsy. I have informed him that he likely has prostate cancer, and that I worry that even if we confirm diagnosis, given his deconditioning and renal failure, it may be limited in what oncology can do. He states "At least I want to know what is offered." Pt's daughter and son at bedside supports pt decision. They did not have further questions. Family/friend interactions Please see above. Advance Directives Living Will: Never completed Health Care Surrogate: Never completed Durable Power of [place] Oil Pump Operator Helper: Never completed Advance Directive Specifics Health Care Surrogate(s): Patient is now naming his daughter Lisa and son Frank as co-HCS. . Objective Vital Signs Date Time Temp Pulse Resp B/P Pulse Ox O2 Delivery O2 Flow Rate FiO2 03/30/17 12:00 61 03/30/17 10:00 59 03/30/17 08:00 61 03/30/17 07:30 98 Nasal Cannula 2.00 03/30/17 07:00 99 Room Air 03/30/17 06:00 59 03/30/17 04:00 56 03/30/17 04:00 98.6 56 29 157/98 97 03/30/17 02:00 58 03/30/17 00:00 98.5 54 15 160/68 97 03/30/17 00:00 54 03/29/17 22:00 56 03/29/17 20:00 61 03/29/17 20:00 98.3 61 26 157/74 99 03/29/17 19:50 96 Nasal Cannula 2.00 03/29/17 19:00 97 Nasal Cannula Humidified 03/29/17 19:00 Nasal Cannula Humidified 03/29/17 18:00 56 03/29/17 16:00 98.6 56 20 155/70 98 03/29/17 16:00 60 Intake & Output 03/30/17 03/30/17 07:00 19:00 Intake Total 110 ml Output Total 1750 ml Balance -1640 ml IV Total 110 ml Output Urine Total 1750 ml Physical Exam CONSTITUTIONAL/GENERAL: This is a weak appearing, thin patient, in no apparent distress. TUBES/LINES/DRAINS: SCDs, Vas-Cath, Pollock/irrigation SKIN: No jaundice, rashes, or lesions. Ecchymoses on upper extremities. No wounds seen anteriorly. Skin temperature appropriate. Not diaphoretic. HEAD: Atraumatic. Normocephalic. EYES: Pupils equal and round and reactive. Extraocular motions intact. No scleral icterus. No injection or drainage. Fundi not examined. ENT: Hearing grossly normal. Nose without bleeding or purulent drainage. Throat without visible erythema, exudates, masses, or lesions. NECK: Trachea midline. Supple, nontender. No palpable thyroid enlargement or nodularity. CARDIOVASCULAR: Regular rate and rhythm without murmurs, gallops, or rubs. No JVD. Peripheral pulses symmetric. RESPIRATORY/CHEST: Symmetric, unlabored respirations. Clear to auscultation. Breath sounds equal bilaterally. A few scattered rhonchi GASTROINTESTINAL: Abdomen soft, non-tender, nondistended. No hepato-splenomegaly , or palpable masses. No guarding. Bowel sounds present. GENITOURINARY: Pollock/irrigation catheter in place MUSCULOSKELETAL: Extremities without clubbing, cyanosis, or edema. No joint tenderness or effusion noted. No calf tenderness. No mottling or clubbing. LYMPHATICS: No palpable cervical or supraclavicular adenopathy. NEUROLOGICAL: Awake and alert. Motor and sensory grossly within normal limits. Follows commands. Cognitively sharp. Moves all extremities. PSYCHIATRIC: No obvious anxiety/depression. no apparent hallucinations or other psychotic thought process. . Diagnostic Tests Laboratory Laboratory Tests Test 03/28/17 03/28/17 03/29/17 03/30/17 12:30 12:43 04:02 03:52 Sodium Level 138 MEQ/L 138 MEQ/L 138 MEQ/L (136-145) (136-145) (136-145) Potassium Level 3.8 MEQ/L 3.8 MEQ/L 3.8 MEQ/L (3.5-5.1) (3.5-5.1) (3.5-5.1) Chloride Level 97 MEQ/L 99 MEQ/L 101 MEQ/L (98-107) (98-107) (98-107) Carbon Dioxide Level 30.0 MEQ/L 29.4 MEQ/L 29.2 MEQ/L (21.0-32.0) (21.0-32.0) (21.0-32.0) Anion Gap 11 MEQ/L (5-15) 10 MEQ/L (5-15) 8 MEQ/L (5-15) Blood Urea Nitrogen 62 MG/DL (7-18) 63 MG/DL (7-18) 39 MG/DL (7-18) Creatinine 8.83 MG/DL 9.11 MG/DL 6.14 MG/DL (0.60-1.30) (0.60-1.30) (0.60-1.30) Estimat Glomerular Filtration 6 ML/MIN (>89) 6 ML/MIN (>89) 9 ML/MIN (>89) Rate Random Glucose 103 MG/DL 99 MG/DL 118 MG/DL (74-106) (74-106) (74-106) Calcium Level 7.9 MG/DL 7.6 MG/DL 7.7 MG/DL (8.5-10.1) (8.5-10.1) (8.5-10.1) White Blood Count 19.8 TH/MM3 18.3 TH/MM3 (4.0-11.0) (4.0-11.0) Red Blood Count 3.20 MIL/MM3 3.19 MIL/MM3 (4.50-5.90) (4.50-5.90) Hemoglobin 9.3 GM/DL 9.3 GM/DL (13.0-17.0) (13.0-17.0) Hematocrit 28.1 % 27.9 % (39.0-51.0) (39.0-51.0) Mean Corpuscular Volume 88.0 FL 87.6 FL (80.0-100.0) (80.0-100.0) Mean Corpuscular Hemoglobin 29.1 PG 29.0 PG (27.0-34.0) (27.0-34.0) Mean Corpuscular Hemoglobin 33.0 % 33.1 % Concent (32.0-36.0) (32.0-36.0) Red Cell Distribution Width 15.5 % 15.8 % (11.6-17.2) (11.6-17.2) Platelet Count 155 TH/MM3 178 TH/MM3 (150-450) (150-450) Mean Platelet Volume 8.1 FL 8.4 FL (7.0-11.0) (7.0-11.0) Neutrophils (%) (Auto) 61.2 % 60.6 % (16.0-70.0) (16.0-70.0) Lymphocytes (%) (Auto) 24.8 % 24.1 % (9.0-44.0) (9.0-44.0) Monocytes (%) (Auto) 7.2 % (0.0-8.0) 6.8 % (0.0-8.0) Eosinophils (%) (Auto) 6.4 % (0.0-4.0) 8.0 % (0.0-4.0) Basophils (%) (Auto) 0.4 % (0.0-2.0) 0.5 % (0.0-2.0) Neutrophils # (Auto) 12.1 TH/MM3 11.1 TH/MM3 (1.8-7.7) (1.8-7.7) Lymphocytes # (Auto) 4.9 TH/MM3 4.4 TH/MM3 (1.0-4.8) (1.0-4.8) Monocytes # (Auto) 1.4 TH/MM3 1.2 TH/MM3 (0-0.9) (0-0.9) Eosinophils # (Auto) 1.3 TH/MM3 1.5 TH/MM3 (0-0.4) (0-0.4) Basophils # (Auto) 0.1 TH/MM3 0.1 TH/MM3 (0-0.2) (0-0.2) CBC Comment AUTO DIFF DIFF FINAL Differential Total Cells 100 Counted Neutrophils % (Manual) 84 % (16-70) Band Neutrophils % 2 % (0-6) Lymphocytes % 7 % (9-44) Monocytes % 4 % (0-8) Eosinophils % 3 % (0-4) Neutrophils # (Manual) 17.0 TH/MM3 (1.8-7.7) Differential Comment FINAL DIFF MANUAL Prothrombin Time 12.8 SEC (9.8-11.6) Prothromb Time International 1.2 RATIO Ratio Phosphorus Level 5.1 MG/DL (2.5-4.9) Result Diagram: 03/29/17 0402 03/30/17 0352 Procedures Cystoscopy, bilateral ureteral stents 03/23/17 Cystoscopy with fulguration 03/24/17 . 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 Spiritual: The patient has a [employer] background, but is not affiliated with any particular yarsanism or clergy. He does not want pump erector helper visits during this hospitalization. Legal: The patient has capacity for decision-making at this time. He is designating his daughter Lisa Ely and son Frank Ross has co-HCS. Ethical issues impacting care: None . Important Contacts Daughter: Christin Ely [phone] Son: Frank Ross [phone] . 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 He does have renal failure requiring dialysis at this time , but it is uncertain whether his kidney function will recover. If he elects to stop dialysis before renal function recovery, certainly he is appropriate for hospice services. Depending on further workup of his malignancy, he would be eligible for hospice services from that perspective also. . Code Status: No Code Plan * DO NOT RESUSCITATE, per patient request 03/25/17 * DECISION-MAKING: Fluctuates and at times confused, did pulled out vas cath, had been on restraits. Seems more clear now. Pt can participate, but palliative care recommentds joint decision making with family. Pt amenable to plan. He is designating his daughter Lisa Ely(1st point of contact). and son Frank Ross has co-HCS. * GOALS: Patient has been very fickle in his goals of care. I was able to sit down with patient, daughter and son today, and have spoken to patient 2x. I have spoke with nephrology concerning patient's case. 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 He did say he wanted to stop everything, but when pt's children showed up and on further discussion, he decided he wants to continue dialysis and undergo biopsy. I have informed him that he likely has prostate cancer, and that I worry that even if we confirm diagnosis, given his deconditioning and renal failure, it may be limited in what oncology can do. He states "At least I want to know what can be offered." Pt's daughter and son at bedside supports pt decision. * SYMPTOMS: The patient has fatigue and an overall feeling of debility, but he has no pain. His dyspnea has resolved. I have no further medication recommendations at this time. * Pruritis- has benadryl ordered. encourage use prn. . * Palliative Care will continue to follow the patient during this hospitalization. . Time Spent Total Floor Time (mins): 45 Face to Face Time (mins): 35 Attestation To help prompt me to consider important information that might be impacting today's encounter and assessment, information from prior notes written by myself or my colleagues may have been "brought forward" into today's note. My signature on this note, however, is an attestation that I personally performed the exam, history, and/or decision-making noted today, and, unless otherwise indicated, the interactions with patient, family, and staff as well as the review of records all occurred today. I also attest that the listed assessment and stated plan reflect my best clinical judgment today based on the combination of historical information, prior notes, and today's exam/ interactions. When time spent is documented, it refers only to time spent today by the signer, or if indicated, combined time spent today by collaborating physician/nurse practitioner. Hua Calixto MD Mar 30, 2017 14:26
--- NOTE | 2017-03-30 15:32 | PD.ONC.PN ---
Subjective Subjective Remarks Afebrile overnight. Patient resting in bed in nad. Son at bedside. Has decided he wants bone biopsy. Objective Data Date Time Temp Pulse Resp B/P Pulse Ox O2 Delivery O2 Flow Rate FiO2 03/30/17 12:00 61 03/30/17 10:00 59 03/30/17 08:00 61 03/30/17 07:30 98 Nasal Cannula 2.00 03/30/17 07:00 99 Room Air 03/30/17 06:00 59 03/30/17 04:00 56 03/30/17 04:00 98.6 56 29 157/98 97 03/30/17 02:00 58 03/30/17 00:00 98.5 54 15 160/68 97 03/30/17 00:00 54 03/29/17 22:00 56 03/29/17 20:00 61 03/29/17 20:00 98.3 61 26 157/74 99 03/29/17 19:50 96 Nasal Cannula 2.00 03/29/17 19:00 97 Nasal Cannula Humidified 03/29/17 19:00 Nasal Cannula Humidified 03/29/17 18:00 56 03/29/17 16:00 98.6 56 20 155/70 98 03/29/17 16:00 60 03/30/17 03/30/17 03/30/17 07:00 15:00 23:00 Intake Total 110 ml Output Total 250 ml Balance -140 ml Result Diagram: 03/29/17 0402 03/30/17 0352 Laboratory Results Laboratory Tests Test 03/30/17 03:52 Sodium Level 138 MEQ/L Potassium Level 3.8 MEQ/L Chloride Level 101 MEQ/L Carbon Dioxide Level 29.2 MEQ/L Anion Gap 8 MEQ/L Blood Urea Nitrogen 39 MG/DL Creatinine 6.14 MG/DL Estimat Glomerular Filtration 9 ML/MIN Rate Random Glucose 118 MG/DL Calcium Level 7.7 MG/DL Administered Medications Medications (Trade) Dose Ordered Sig/Nasreen Route PRN Reason Start Time Stop Time Status Last Admin Dose Admin Sodium Chloride (NS Flush) 2 ml BID IV FLUSH 03/20/17 21:00 03/30/17 09:12 Acetaminophen/ Hydrocodone Bitart ([place] 5-325 Mg) 1 tab Q4H PRN PO PAIN SCALE 1 TO 5 03/20/17 18:15 03/30/17 09:12 Morphine Sulfate (Morphine Inj) 2 mg Q2H PRN IV PUSH PAIN 6-10 03/20/17 18:30 03/26/17 02:06 Pantoprazole Sodium (Protonix Inj) 40 mg DAILY IV 03/21/17 09:00 03/30/17 09:12 Ondansetron HCl (Zofran Inj) 4 mg Q6H PRN IV NAUSEA OR VOMITING 03/20/17 18:15 03/23/17 17:52 Miscellaneous Information 1 Q361D XX 03/20/17 18:15 03/20/17 21:46 Chlorhexidine Gluconate (Chlorhexidine 2% Cloth) Taper DAILY@04 TOP 03/21/17 04:00 03/17/18 03:59 03/30/17 01:06 Senna/Docusate Sodium (Negin-Colace) 1 tab BID PO 03/20/17 21:00 03/30/17 09:10 Lactulose 30 ml 30 ml DAILY PRN PO SEVERE CONSITIPATION 03/20/17 18:15 03/25/17 08:59 Cefepime HCl/ Sodium Chloride (Maxipime Inj/NS Inj) 100 ml @ 200 mls/hr Q24H IV 03/21/17 00:00 03/30/17 01:06 Metoprolol Tartrate (Lopressor) 25 mg Q12HR PO 03/21/17 02:45 03/30/17 09:10 Calcium Acetate 667 mg 667 mg TID PO 03/21/17 18:00 03/30/17 13:00 Sodium Chloride (NS 1000 ml Inj) 1,000 ml @ 0 mls/hr Q0M PRN IV For Prime & Rinse Back 03/22/17 11:58 03/25/17 14:07 Heparin Sodium (Porcine) (Heparin Inj) UNSCH PRN .XX WITH DIALYSIS 03/22/17 12:00 03/23/17 08:47 Gentamicin Sulfate (Gentamicin (Dialysis) Inj) 20 mg UNSCH PRN IV WITH DIALYSIS 03/22/17 12:00 03/25/17 14:06 Epoetin Hermes [id number] units 10,000 units UNSCH PRN IV WITH DIALYSIS 03/22/17 12:00 03/25/17 14:06 Aminocaproic Acid/ Sodium Chloride (Amicar Inj/NS Irr Bag) 3,012 ml @ 125.5 mls/ hr Q24H IRRIGATION 03/22/17 13:30 03/30/17 13:30 Cholecalciferol (Vitamin D3) 5,000 units DAILY PO 03/23/17 09:00 03/30/17 09:10 Hydralazine HCl 20 mg 20 mg Q2HR PRN IV PUSH SBP greater than 160mm Hg 03/23/17 16:30 03/30/17 05:57 Sodium Chloride (NS Irr Bag) 3,000 ml @ 125.5 mls/ hr Q24H IRRIGATION 03/23/17 17:00 03/29/17 17:00 Folic Acid (Folate) 1 mg DAILY PO 03/26/17 11:45 03/31/17 11:44 03/30/17 09:10 Thiamine HCl (Vitamin B1) 100 mg DAILY PO 03/26/17 11:45 03/30/17 09:10 Multivitamins/ Minerals Therapeutic (Theragran M Tab) 1 tab DAILY PO 03/26/17 11:45 03/31/17 11:44 03/30/17 09:10 Lorazepam (Ativan) 1 mg Q4H PRN PO CIWA 8 - 10 03/26/17 11:30 03/27/17 10:52 Lorazepam (Ativan) 2 mg Q2H PRN PO CIWA 11-14 03/26/17 11:30 03/28/17 00:15 Objective Remarks GENERAL: Middle aged male upright in bed in nad SKIN: Warm and dry. perma-cath in right chest wall. HEAD: Normocephalic. EYES: No injection or drainage. NECK: Supple, trachea midline. CARDIOVASCULAR: +S1/S2 RESPIRATORY: Breath sounds equal bilaterally. No accessory muscle use. GASTROINTESTINAL: Abdomen soft, non-tender, nondistended. EXTREMITIES: No cyanosis NEUROLOGICAL: awake and alert, normal speech. Assessment/Plan Problem List: (1) Bladder mass Status: Acute Plan: 03/28: d/w patient and son at bedside. he would like to pursue biopsy. will consult invasive radiology for ct guided bone biopsy PSA elevated CT ab/pelvis: + bladder mass with bony mets. CT chest: bilateral pleural effusions. + bony mets to thoracic vertebra, ribs, left scapula (2) Anemia Status: Acute Plan: --transfuse as needed --hemoccult negative --keren negative --no sign of hemolysis. --slightly elevated retic count, no sign of iron deficiency Assessment 61y/o male admitted with ARF, CT shows possible bladder mass and bony mets + elevated PSA. Attending Statement continues on HD pt has decided to do bx consult IR for bone bx, will follow Problem Qualifiers (1) Anemia: Qualified Code: D64.9 - Anemia, unspecified type Raquel Stephens Mar 30, 2017 15:32 Cam Arceo MD Mar 30, 2017 21:51
[2017-03-30] MEDS: IRR IRRIGATION SCH (17:00)
[2017-03-30] MEDS: SODIUM CHLORIDE 0.9% IRRIGATION SCH (17:00)
[2017-03-31] VITALS (14 sets, daily range): BP systolic 127–168; BP diastolic 60–81; PULSE 52–89; RESP 16–28; TEMP 98.1–99.7; O2SAT 93–96
[2017-03-31] MEDS: CHLORHEXIDINE GLUCONATE 2 % 1 PACK (2 CLOTHS) TOP SCH (04:00)
[2017-03-31 07:02] LABS: BICARBONATE 29.5 MEQ/L (21.0-32.0)
[2017-03-31] MEDS: THIAMINE HCL 100 MG TAB PO SCH (09:00)
[2017-03-31] MEDS: SODIUM CHLORIDE 0.9% FLUSH 10 ML FLUSH IV FLUSH SCH (09:00)
[2017-03-31] MEDS: METOPROLOL TARTRATE 25 MG TAB PO SCH ×2 (09:00→22:29)
[2017-03-31] MEDS: DOCUSATE SODIUM 50 MG/SENNA 8.6 MG TAB PO SCH ×2 (09:00→22:29)
[2017-03-31] MEDS: PANTOPRAZOLE SODIUM 40 MG VIAL IV SCH (10:01)
[2017-03-31] MEDS: MULTIVITAMINS/MINERALS THERAPEUTIC TAB PO SCH (10:01)
[2017-03-31] MEDS: CALCIUM ACETATE 667 MG CAP PO SCH ×3 (10:02→18:00)
[2017-03-31] MEDS: CHOLECALCIFEROL (VIT D3) 5000 UNIT CAP PO SCH (10:02)
[2017-03-31] MEDS: FOLIC ACID 1 MG TAB PO SCH (10:02)
--- NOTE | 2017-03-31 10:27 | PD.ONC.PN ---
Subjective Subjective Remarks Afebrile overnight. Resting comfortably. Going for dialysis this morning and CT guided biopsy this afternoon. Objective Data Date Time Temp Pulse Resp B/P Pulse Ox O2 Delivery O2 Flow Rate FiO2 03/31/17 07:00 96 Room Air 03/31/17 06:00 52 03/31/17 04:00 58 03/31/17 04:00 98.2 58 28 156/67 94 03/31/17 02:00 56 03/31/17 00:00 53 03/31/17 00:00 98.6 53 17 127/60 93 03/30/17 22:00 52 03/30/17 20:00 98.4 60 23 116/59 95 03/30/17 20:00 60 03/30/17 19:14 96 21 03/30/17 19:00 95 Nasal Cannula Humidified 03/30/17 19:00 Nasal Cannula Humidified 03/30/17 18:00 59 03/30/17 16:00 61 03/30/17 16:00 98.6 56 20 122/58 98 03/30/17 14:00 59 03/30/17 12:00 61 03/30/17 12:00 98.6 56 20 155/70 98 03/31/17 03/31/17 03/31/17 07:00 15:00 23:00 Intake Total 100 ml Output Total 125 ml Balance -25 ml Result Diagram: 03/29/17 0402 03/31/17 0524 Laboratory Results Laboratory Tests Test 03/31/17 05:24 Sodium Level 137 MEQ/L Potassium Level 4.0 MEQ/L Chloride Level 98 MEQ/L Carbon Dioxide Level 29.5 MEQ/L Anion Gap 10 MEQ/L Blood Urea Nitrogen 52 MG/DL Creatinine 7.35 MG/DL Estimat Glomerular Filtration 8 ML/MIN Rate Random Glucose 100 MG/DL Calcium Level 7.9 MG/DL Phosphorus Level 3.9 MG/DL Administered Medications Medications (Trade) Dose Ordered Sig/Nasreen Route PRN Reason Start Time Stop Time Status Last Admin Dose Admin Sodium Chloride (NS Flush) 2 ml BID IV FLUSH 03/20/17 21:00 03/30/17 20:40 Acetaminophen/ Hydrocodone Bitart ([place] 5-325 Mg) 1 tab Q4H PRN PO PAIN SCALE 1 TO 5 03/20/17 18:15 03/30/17 09:12 Morphine Sulfate (Morphine Inj) 2 mg Q2H PRN IV PUSH PAIN 6-10 03/20/17 18:30 03/26/17 02:06 Pantoprazole Sodium (Protonix Inj) 40 mg DAILY IV 03/21/17 09:00 03/31/17 10:01 Ondansetron HCl (Zofran Inj) 4 mg Q6H PRN IV NAUSEA OR VOMITING 03/20/17 18:15 03/23/17 17:52 Miscellaneous Information 1 Q361D XX 03/20/17 18:15 03/20/17 21:46 Chlorhexidine Gluconate (Chlorhexidine 2% Cloth) Taper DAILY@04 TOP 03/21/17 04:00 03/17/18 03:59 03/31/17 04:00 Senna/Docusate Sodium (Negin-Colace) 1 tab BID PO 03/20/17 21:00 03/30/17 20:36 Lactulose 30 ml 30 ml DAILY PRN PO SEVERE CONSITIPATION 03/20/17 18:15 03/25/17 08:59 Cefepime HCl/ Sodium Chloride (Maxipime Inj/NS Inj) 100 ml @ 200 mls/hr Q24H IV 03/21/17 00:00 03/30/17 23:22 Metoprolol Tartrate (Lopressor) 25 mg Q12HR PO 03/21/17 02:45 03/30/17 20:36 Calcium Acetate 667 mg 667 mg TID PO 03/21/17 18:00 03/31/17 10:02 Sodium Chloride (NS 1000 ml Inj) 1,000 ml @ 0 mls/hr Q0M PRN IV For Prime & Rinse Back 03/22/17 11:58 03/25/17 14:07 Heparin Sodium (Porcine) (Heparin Inj) UNSCH PRN .XX WITH DIALYSIS 03/22/17 12:00 03/23/17 08:47 Gentamicin Sulfate (Gentamicin (Dialysis) Inj) 20 mg UNSCH PRN IV WITH DIALYSIS 03/22/17 12:00 03/25/17 14:06 Epoetin Hermes 67687 units 10,000 units UNSCH PRN IV WITH DIALYSIS 03/22/17 12:00 03/25/17 14:06 Aminocaproic Acid/ Sodium Chloride (Amicar Inj/NS Irr Bag) 3,012 ml @ 125.5 mls/ hr Q24H IRRIGATION 03/22/17 13:30 03/30/17 13:30 Cholecalciferol (Vitamin D3) 5,000 units DAILY PO 03/23/17 09:00 03/31/17 10:02 Hydralazine HCl 20 mg 20 mg Q2HR PRN IV PUSH SBP greater than 160mm Hg 03/23/17 16:30 03/30/17 05:57 Sodium Chloride (NS Irr Bag) 3,000 ml @ 125.5 mls/ hr Q24H IRRIGATION 03/23/17 17:00 03/30/17 17:00 Folic Acid (Folate) 1 mg DAILY PO 03/26/17 11:45 03/31/17 11:44 03/31/17 10:02 Thiamine HCl (Vitamin B1) 100 mg DAILY PO 03/26/17 11:45 03/30/17 09:10 Multivitamins/ Minerals Therapeutic (Theragran M Tab) 1 tab DAILY PO 03/26/17 11:45 03/31/17 11:44 03/31/17 10:01 Lorazepam (Ativan) 1 mg Q4H PRN PO CIWA 8 - 10 03/26/17 11:30 03/27/17 10:52 Lorazepam (Ativan) 2 mg Q2H PRN PO CIWA 11-14 03/26/17 11:30 03/28/17 00:15 Objective Remarks GENERAL: Middle aged male sitting up in bed. SKIN: Warm and dry. perma-cath, right chest wall. HEAD: Normocephalic. EYES: No injection or drainage. NECK: Supple, trachea midline. CARDIOVASCULAR: +S1/S2 RESPIRATORY: Breath sounds equal bilaterally. No accessory muscle use. GASTROINTESTINAL: Abdomen soft, non-tender, nondistended. EXTREMITIES: No cyanosis NEUROLOGICAL: awake and alert, normal speech. able to move all extremities. Assessment/Plan Problem List: (1) Bladder mass Status: Acute Plan: 03/29: biopsy today in IR, await pathology PSA elevated CT ab/pelvis: + bladder mass with bony mets. CT chest: bilateral pleural effusions. + bony mets to thoracic vertebra, ribs, left scapula (2) Anemia Status: Acute Plan: --transfuse as needed --hemoccult negative --keren negative --no sign of hemolysis. --slightly elevated retic count, no sign of iron deficiency Assessment 61y/o male admitted with ARF, CT shows possible bladder mass and bony mets + elevated PSA. Attending Statement no c/o s/p BX path is pending On HD Problem Qualifiers (1) Anemia: Qualified Code: D64.9 - Anemia, unspecified type Raquel Stephens Mar 31, 2017 10:27 Cam Arceo MD Mar 31, 2017 22:53
--- NOTE | 2017-03-31 12:13 | HHI.PR ---
Subjective Remarks Follow-up bladder mass/obstruction uropathy/ 03/26/17-patient seen and examined, denies any chest pain or shortness of breath as well as pelvic fully with clear urine CBI running. Renal indices improving. Patient still doesn't want any bladder biopsy performed. Son by the bedside 03/27/17-patient seen and examined, CBI still running, worsening renal indices. No acute event overnight 03/28/17-patient seen and examined, somehow lethargic today however patient arousable and talking to me when possible. He states he wants miracle to be performed 03/29/17-patient seen and examined, has right upper extremity swelling, Pollock with bloody output, currently receiving hemodialysis after Vas-Cath was this morning 03/30/17-patient seen and examined him a he did receive hemodialysis yesterday. Pollock with presence of gross hematuria. Patient now is waiting to talk to palliative care regarding possible comfort measures as he no longer want aggressive treatment 03/31/17-patient seen and examined ,he is not agreeable for bone biopsy of the lesion. Pollock with hematuria. No other issues overnight Objective Vitals Vital Signs Date Time Temp Pulse Resp B/P Pulse Ox O2 Delivery O2 Flow Rate FiO2 03/31/17 10:00 89 03/31/17 08:00 89 03/31/17 08:00 98.4 68 20 144/66 96 03/31/17 07:00 96 Room Air 03/31/17 06:00 52 03/31/17 04:00 58 03/31/17 04:00 98.2 58 28 156/67 94 03/31/17 02:00 56 03/31/17 00:00 53 03/31/17 00:00 98.6 53 17 127/60 93 03/30/17 22:00 52 03/30/17 20:00 98.4 60 23 116/59 95 03/30/17 20:00 60 03/30/17 19:14 96 21 03/30/17 19:00 95 Nasal Cannula Humidified 03/30/17 19:00 Nasal Cannula Humidified 03/30/17 18:00 59 03/30/17 16:00 61 03/30/17 16:00 98.6 56 20 122/58 98 03/30/17 14:00 59 I/O 7/12/17 03/30/17 03/30/17 03/31/17 03/31/17 03/31/17 07:00 15:00 23:00 07:00 15:00 23:00 Intake Total 110 ml 500 ml 100 ml Output Total 250 ml 450 ml 125 ml Balance -140 ml 50 ml -25 ml Intake Oral 500 ml IV Total 110 ml 0 ml 100 ml Output Urine Total 250 ml 450 ml 125 ml # Bowel Movements 0 Result Diagram: 03/29/17 0402 03/31/17 0524 Imaging Last Impressions Upper Extremity Ultrasound 03/29/17 0000 Signed Impressions: Service Date/Time: Wednesday, March 29, 2017 08:43 - CONCLUSION: Normal examination. Art John MD Catheter Placement X-Ray 03/29/17 0000 Signed Impressions: Service Date/Time: Wednesday, March 29, 2017 08:50 - CONCLUSION: Uncomplicated PermaCath placement as above. Ferdinand Fisher MD Renal Ultrasound 03/25/17 0000 Signed Impressions: Service Date/Time: Saturday, March 25, 2017 22:14 - CONCLUSION: Marked hydronephrosis, Grade IV left kidney. There is no hydronephrosis on the right. Markedly thickened bladder wall. Damien Peña MD FACR Chest X-Ray 03/22/17 0000 Signed Impressions: Service Date/Time: Wednesday, March 22, 2017 16:05 - CONCLUSION: 1. Diffuse increased interstitial markings likely representing pulmonary edema. There is prominence of the central pulmonary vessels. 2. Hazy density bases with silhouetting hemidiaphragms from superimposed areas of consolidation/ atelectasis and effusions. Art Olivera MD Chest CT 03/21/17 0000 Signed Impressions: Service Date/Time: Tuesday, March 21, 2017 13:03 - CONCLUSION: 1. Moderate to large bilateral pleural effusions with associated compressive atelectasis in the lower lobes. 2. Bilateral patchy somewhat nodular groundglass opacities with upper lobe predominance likely related to positive fluid balance. 3. Diffuse sclerotic metastasis to the thoracic vertebra, ribs, and left scapula. 4. Bilateral moderate to severe hydronephrosis, incompletely imaged on this exam. This is similar to yesterday's ultrasound exam. 5. 3.6 cm coarsely calcified left thyroid nodule. This can be further evaluated with thyroid ultrasound as indicated. Ferdinand Fisher MD Abdomen/Pelvis CT 03/21/17 0000 Signed Impressions: Service Date/Time: Tuesday, March 21, 2017 13:03 - CONCLUSION: Large bladder mass with bone metastases. Small bilateral pleural effusions. Minimal retroperitoneal adenopathy. Damien Peña MD FACR Lower Extremity Ultrasound 03/20/17 0000 Signed Impressions: Service Date/Time: Monday, March 20, 2017 17:30 - CONCLUSION: Normal examination. Sebastián Greer MD Objective Remarks GENERAL: NAD but somehow lethargic SKIN: Warm and dry. HEAD: Normocephalic. EYES: No scleral icterus. No injection or drainage. NECK: Supple, trachea midline. No JVD or lymphadenopathy. CARDIOVASCULAR: Regular rate and rhythm without murmurs, gallops, or rubs. RESPIRATORY: Breath sounds equal bilaterally. No accessory muscle use. GASTROINTESTINAL: Abdomen soft, non-tender, nondistended. MUSCULOSKELETAL: No cyanosis, or edema. BACK: Nontender without obvious deformity. No CVA tenderness. A/P Problem List: (1) obstructive uropathy, renal failure Status: Acute (2) Bladder mass ICD Code: N32.89 Status: Acute (3) apparent bony metastases, elevated PSA, suspected prostate cancer Status: Acute (4) acute renal failure, on dialysis Status: Acute (5) hypertension Status: Acute (6) Anemia due to acute blood loss ICD Code: D62 Status: Acute Assessment and Plan 61-year-old man with Bladder mass Acute kidney injury/ CKD Urinary obstruction Urinary bladder clot s/p cystoscopy Hematuria Underwent cystoscopy with ureteral stenting on 03/[address] Fine. Currently on hemodialysis since 03/22 Repeat cystoscopy with fulguration of bleeding sites and urinary bladder on 03/24 Continue with CBI . Patient may eventually require transrectal ultrasound and prostate needle biopsy to confirm diagnosis of prostate cancer which may be performed outpatient. Patient is not agreeable for biopsy of bone lesion Plan for CT-guided biopsy today 03/31/17 Case was discussed on 03/30/[address] Calixto, palliative care medicine Appreciate input from oncology, palliative care medicine Hypertension Pulmonary edema Continue to Hold ASA /anticoagulants at this time as no symptoms of ACS and patient has symptomatic anemia. Metoprolol 25 mg by mouth every 12 hours. Still Not a candidate for ETHEL inhibitor due to acute kidney injury. Anemia of acute blood loss Leukocytosis - lymphocytosis. Transfused 8 units of PRBCs since admission Anemia secondary to hematuria and possible bone metastases. Appreciate input from Hematology Right upper extremity swelling Doppler negative for thrombosis PROPH: Protonix 40 g IV daily for stress ulcer prophylaxis. SCDs for DVT prophylaxis. Hold on pharmacologic DVT prophylaxis due to severe anemia. Discharge Planning Not medically clear for discharge yet pending CT-guided biopsy of bone lesion Rene Santiago MD Mar 31, 2017 12:13
[2017-03-31] MEDS ORDERED: LIDOCAINE HCL 1% 20 ML VIAL ONE (13:17)
--- NOTE | 2017-03-31 13:35 | HHI.NPPN ---
Subjective History of Present Illness 61 year old with ARF no recovery possible prostate Ca Review of Systems General Constitutional: Fatigue Objective Data Data 03/30/17 03/31/17 19:00 07:00 Intake Total 400 ml 200 ml Output Total 350 ml 225 ml Balance 50 ml -25 ml Intake Oral 400 ml 100 ml IV Total 0 ml 100 ml Output Urine Total 350 ml 225 ml # Bowel Movements 0 Vital Signs Date Time Temp Pulse Resp B/P Pulse Ox O2 Delivery O2 Flow Rate FiO2 03/31/17 10:00 89 03/31/17 08:20 96 03/31/17 08:00 89 03/31/17 08:00 98.4 68 20 144/66 96 03/31/17 07:00 96 Room Air 03/31/17 06:00 52 03/31/17 04:00 58 03/31/17 04:00 98.2 58 28 156/67 94 03/31/17 02:00 56 03/31/17 00:00 53 03/31/17 00:00 98.6 53 17 127/60 93 03/30/17 22:00 52 03/30/17 20:00 98.4 60 23 116/59 95 03/30/17 20:00 60 03/30/17 19:14 96 21 03/30/17 19:00 95 Nasal Cannula Humidified 03/30/17 19:00 Nasal Cannula Humidified 03/30/17 18:00 59 03/30/17 16:00 61 03/30/17 16:00 98.6 56 20 122/58 98 03/30/17 14:00 59 -: 03/29/17 0402 03/31/17 0524 Physical Exam General Appearance: Well Developed, Well Nourished Pulmonary Resp Exam: Clear Bilaterally, Breath Sounds Equal Cardiology CV Exam: Regular, Normal Sinus Rhythm Gastrointestinal/Abdomen GI Exam: Soft, Non-Tender, Bowel Sounds Present Extremeties Extremities Exam: Moderate Edema Assessment/Plan Problem List: (1) Acute renal failure Plan: He had dialysis Tuesday next HD today as Cr higher going for Biopsy of bone post PermCath follow BMP no recovery (2) Uropathy, obstructive Plan: Severe followed by urology (3) Anemia Plan: on epogen Problem Qualifiers (1) Anemia: Qualified Code: D64.9 - Anemia, unspecified type Karena Duval MD Mar 31, 2017 13:35
[2017-03-31] MEDS ORDERED: MIDAZOLAM HCL 2 MG/2 ML VIAL ONE (14:01)
--- NOTE | 2017-03-31 14:24 | PD.RAD ---
Post CT Procedure Prog Note Pre Procedure Diagnosis: (1) apparent bony metastases, elevated PSA, suspected prostate cancer Post Procedure Diagnosis: (1) apparent bony metastases, elevated PSA, suspected prostate cancer Procedure Date: Mar 31, 2017 Supervising Radiologist: David Peña Anesthesia: Local, Conscious Sedation Plan of Activity Patient to Unit: Nursing Unit Patient Condition: Poor Additional Comments: Core biopsy of the left iliac wing completed. Sample sent for pathology Full dictated report to follow. See PACS Report for procedural detail/treatment David Peña MD Mar 31, 2017 14:24
[2017-03-31] MEDS: hydrALAZINE HCL 20 MG/ML VIAL IV PUSH PRN (15:52)
--- NOTE | 2017-03-31 16:36 | RADRPT ---
EXAM DATE/TIME: 03/31/2017 14:07 [facility] COMPARISON: CT THORAX W/O CONTRAST, March 21, 2017, 13:03. INDICATIONS : Metastatic bone lesions. SEDATION TIME: 15 minutes BIOPSY SITE: Left iliac MEDICATION(S): 1.) 2 mg midazolam (Versed) IV 2.) 100 mcg fentanyl (Sublimaze) IV DEVICE(S): 1.) 11 gauge Bone marrow biopsy needle MEDICAL HISTORY : Hypertension. Metastatic, bone. Bladder mass SURGICAL HISTORY : None. ENCOUNTER: Initial ACUITY: 1 day PAIN SCORE: 0/10 LOCATION: Left pelvis A total of one core specimen(s) were obtained and sent to the laboratory for pathologic evaluation. PROCEDURE: 1. CT guided bone deep biopsy. Prior to the procedure informed consent was obtained. Any appropriate prior imaging studies were rev iewed. Using automated exposure control and adjustment of the mA and/or kV according to patient size, radiat ion dose was kept as low as reasonably achievable to obtain optimal diagnostic quality images. DICOM format image data is available electronically for review and comparison. The site was prepped in a sterile fashion. Full sterile technique was used, including cap, mask, cynthia rile gloves and gown and a large sterile sheet. Hand hygiene and 2% chlorhexidine and/or betadine/al cohol prep was utilized per protocol for cutaneous antisepsis. The skin and subcutaneous tissues wer e infiltrated with local anesthetic solution. With CT guidance the previously identified target was localized. Biopsy was performed using the presc ribed needle as above. Adequate hemostasis was obtained with compression at the puncture site. Follow-up CT scan reveals no hemorrhage. The patient tolerated the procedure well and there were no complications. The patient was returned to the Radiology Outpatient Unit in stable condition. CONCLUSION: Uncomplicated CT guided biopsy. David Peña MD on March 31, 2017 at 16:32 Board Certified Radiologist. This report was verified electronically.
[2017-03-31] MEDS: AMINOCAPROIC ACID INJ 3,000 MG in SODIUM CHLORIDE 0.9% IRR BAG 3,000 ML IRRIGATION SCH (16:41)
[2017-03-31] MEDS: IRR IRRIGATION SCH (17:00)
[2017-03-31] MEDS: SODIUM CHLORIDE 0.9% IRRIGATION SCH (17:00)
[2017-04-01] VITALS (14 sets, daily range): BP systolic 138–174; BP diastolic 63–82; PULSE 56–73; RESP 16–53; TEMP 96.3–99.7; O2SAT 94–97
[2017-04-01] MEDS: CEFEPIME INJ 1,000 MG in SODIUM CHLORIDE 0.9% INJ 100 ML IV SCH ×2 (01:46→23:45)
[2017-04-01] MEDS: SODIUM CHLORIDE 0.9% FLUSH 10 ML FLUSH IV FLUSH SCH ×3 (01:46→19:53)
[2017-04-01] MEDS: CHLORHEXIDINE GLUCONATE 2 % 1 PACK (2 CLOTHS) TOP SCH (04:00)
[2017-04-01 05:26] LABS: BASOPHIL # 0.1 TH/MM3 (0-0.2); BASOPHIL % 0.8 % (0.0-2.0); EOSINOPHIL # 0.5 TH/MM3 (0-0.4); EOSINOPHIL % 4.4 % (0.0-4.0); HEMATOCRIT 29.7 % (39.0-51.0); HEMO FLAGS DIFF FINAL; LYMPH % 31.7 % (9.0-44.0); LYMPHOCYTE # 3.6 TH/MM3 (1.0-4.8); MEAN CELL VOLUME 88.8 FL (80.0-100.0); MEAN CORPUSCULAR HEMOGLOBIN 28.3 PG (27.0-34.0); MEAN CORPUSCULAR HGB CONC 31.9 % (32.0-36.0); MONO % 10.1 % (0.0-8.0); PLATELET COUNT 175 TH/MM3 (150-450); RED BLOOD COUNT 3.35 MIL/MM3 (4.50-5.90); RED CELL DISTRIBUTION WIDTH 16.3 % (11.6-17.2); WHITE BLOOD COUNT 11.4 TH/MM3 (4.0-11.0)
[2017-04-01 05:48] LABS: BICARBONATE 30.8 MEQ/L (21.0-32.0); POTASSIUM 3.8 MEQ/L (3.5-5.1)
[2017-04-01] MEDS: THIAMINE HCL 100 MG TAB PO SCH (08:55)
[2017-04-01] MEDS: PANTOPRAZOLE SODIUM 40 MG VIAL IV SCH (08:55)
[2017-04-01] MEDS: CHOLECALCIFEROL (VIT D3) 5000 UNIT CAP PO SCH (08:55)
[2017-04-01] MEDS: METOPROLOL TARTRATE 25 MG TAB PO SCH ×2 (08:56→19:52)
[2017-04-01] MEDS: CALCIUM ACETATE 667 MG CAP PO SCH ×3 (08:56→18:21)
[2017-04-01] MEDS: DOCUSATE SODIUM 50 MG/SENNA 8.6 MG TAB PO SCH ×2 (09:00→19:51)
--- NOTE | 2017-04-01 10:37 | PD.ONC.PN ---
Subjective Subjective Remarks c/o weakness No discomfort at Bx site Objective Data Date Time Temp Pulse Resp B/P Pulse Ox O2 Delivery O2 Flow Rate FiO2 04/01/17 06:00 69 04/01/17 04:00 98.7 60 16 152/70 95 04/01/17 04:00 62 04/01/17 02:00 62 04/01/17 00:00 98.8 59 16 144/64 96 04/01/17 00:00 59 03/31/17 22:00 56 03/31/17 20:00 95 Room Air 03/31/17 20:00 99.7 79 16 130/60 95 03/31/17 20:00 78 03/31/17 19:43 95 03/31/17 18:00 89 03/31/17 16:00 89 03/31/17 16:00 98.6 74 20 168/81 96 03/31/17 14:00 89 03/31/17 12:00 89 03/31/17 12:00 98.1 60 20 160/70 95 04/01/17 04/01/17 04/01/17 07:00 15:00 23:00 Intake Total 300 ml Output Total 1100 ml Balance -800 ml Result Diagram: 04/01/17 0343 04/01/17 0343 Laboratory Results Laboratory Tests Test 04/01/17 03:43 White Blood Count 11.4 TH/MM3 Red Blood Count 3.35 MIL/MM3 Hemoglobin 9.5 GM/DL Hematocrit 29.7 % Mean Corpuscular Volume 88.8 FL Mean Corpuscular Hemoglobin 28.3 PG Mean Corpuscular Hemoglobin 31.9 % Concent Red Cell Distribution Width 16.3 % Platelet Count 175 TH/MM3 Mean Platelet Volume 8.3 FL Neutrophils (%) (Auto) 53.0 % Lymphocytes (%) (Auto) 31.7 % Monocytes (%) (Auto) 10.1 % Eosinophils (%) (Auto) 4.4 % Basophils (%) (Auto) 0.8 % Neutrophils # (Auto) 6.0 TH/MM3 Lymphocytes # (Auto) 3.6 TH/MM3 Monocytes # (Auto) 1.2 TH/MM3 Eosinophils # (Auto) 0.5 TH/MM3 Basophils # (Auto) 0.1 TH/MM3 CBC Comment DIFF FINAL Differential Comment Sodium Level 140 MEQ/L Potassium Level 3.8 MEQ/L Chloride Level 100 MEQ/L Carbon Dioxide Level 30.8 MEQ/L Anion Gap 9 MEQ/L Blood Urea Nitrogen 38 MG/DL Creatinine 5.42 MG/DL Estimat Glomerular Filtration 11 ML/MIN Rate Random Glucose 82 MG/DL Calcium Level 7.8 MG/DL Imaging Studies Last 24 hours Impressions Bone Biopsy CT 03/31/17 1346 Signed Impressions: Service Date/Time: March 14:07 - CONCLUSION: Uncomplicated CT guided biopsy. David Peña MD Administered Medications Medications (Trade) Dose Ordered Sig/Nasreen Route PRN Reason Start Time Stop Time Status Last Admin Dose Admin Sodium Chloride (NS Flush) 2 ml BID IV FLUSH 03/20/17 21:00 04/01/17 08:56 Acetaminophen/ Hydrocodone Bitart ([place] 5-325 Mg) 1 tab Q4H PRN PO PAIN SCALE 1 TO 5 03/20/17 18:15 03/30/17 09:12 Morphine Sulfate (Morphine Inj) 2 mg Q2H PRN IV PUSH PAIN 6-10 03/20/17 18:30 03/26/17 02:06 Pantoprazole Sodium (Protonix Inj) 40 mg DAILY IV 03/21/17 09:00 04/01/17 08:55 Ondansetron HCl (Zofran Inj) 4 mg Q6H PRN IV NAUSEA OR VOMITING 03/20/17 18:15 03/23/17 17:52 Miscellaneous Information 1 Q361D XX 03/20/17 18:15 03/20/17 21:46 Chlorhexidine Gluconate (Chlorhexidine 2% Cloth) Taper DAILY@04 TOP 03/21/17 04:00 03/17/18 03:59 03/31/17 04:00 Senna/Docusate Sodium (Negin-Colace) 1 tab BID PO 03/20/17 21:00 03/31/17 22:29 Lactulose 30 ml 30 ml DAILY PRN PO SEVERE CONSITIPATION 03/20/17 18:15 03/25/17 08:59 Cefepime HCl/ Sodium Chloride (Maxipime Inj/NS Inj) 100 ml @ 200 mls/hr Q24H IV 03/21/17 00:00 04/01/17 01:46 Metoprolol Tartrate (Lopressor) 25 mg Q12HR PO 03/21/17 02:45 04/01/17 08:56 Calcium Acetate 667 mg 667 mg TID PO 03/21/17 18:00 04/01/17 08:56 Sodium Chloride (NS 1000 ml Inj) 1,000 ml @ 0 mls/hr Q0M PRN IV For Prime & Rinse Back 03/22/17 11:58 03/25/17 14:07 Heparin Sodium (Porcine) (Heparin Inj) UNSCH PRN .XX WITH DIALYSIS 03/22/17 12:00 03/23/17 08:47 Gentamicin Sulfate (Gentamicin (Dialysis) Inj) 20 mg UNSCH PRN IV WITH DIALYSIS 03/22/17 12:00 03/25/17 14:06 Epoetin Hermes 95824 units 10,000 units UNSCH PRN IV WITH DIALYSIS 03/22/17 12:00 03/25/17 14:06 Aminocaproic Acid/ Sodium Chloride (Amicar Inj/NS Irr Bag) 3,012 ml @ 125.5 mls/ hr Q24H IRRIGATION 03/22/17 13:30 03/31/17 16:41 Cholecalciferol (Vitamin D3) 5,000 units DAILY PO 03/23/17 09:00 04/01/17 08:55 Hydralazine HCl 20 mg 20 mg Q2HR PRN IV PUSH SBP greater than 160mm Hg 03/23/17 16:30 03/31/17 15:52 Sodium Chloride (NS Irr Bag) 3,000 ml @ 125.5 mls/ hr Q24H IRRIGATION 03/23/17 17:00 03/31/17 17:00 Thiamine HCl (Vitamin B1) 100 mg DAILY PO 03/26/17 11:45 04/01/17 08:55 Lorazepam (Ativan) 1 mg Q4H PRN PO CIWA 8 - 10 03/26/17 11:30 03/27/17 10:52 Lorazepam (Ativan) 2 mg Q2H PRN PO CIWA 11-14 03/26/17 11:30 03/28/17 00:15 Objective Remarks GENERAL: chronically Ill patient. SKIN: Warm and dry. HEAD: Normocephalic. EYES: No scleral icterus. No injection or drainage. NECK: Supple, trachea midline. No JVD or lymphadenopathy. LYMPHATIC: No adenopathy. CARDIOVASCULAR: Regular rate and rhythm without murmurs. RESPIRATORY: Breath sounds equal bilaterally. No accessory muscle use. GASTROINTESTINAL: Abdomen soft, non-tender, nondistended. EXTREMITIES: No cyanosis, or edema. NEUROLOGICAL: No obvious focal deficit. Awake, alert, and oriented x3. PSYCHIATRIC: Appropriate mood and affect; insight and judgment normal. Assessment/Plan Problem List: (1) Bladder mass Status: Acute Plan: 04/01: S/P bx , path is pending. Discuss with him. He does not want any treatment fo rcancer. He also does not want hospice. He want to go to [facility] or SNF and continue HD and stay alive as long as possible. 03/29: biopsy today in IR, await pathology PSA elevated CT ab/pelvis: + bladder mass with bony mets. CT chest: bilateral pleural effusions. + bony mets to thoracic vertebra, ribs, left scapula (2) Anemia Status: Acute Plan: --transfuse as needed --hemoccult negative --keren negative --no sign of hemolysis. --slightly elevated retic count, no sign of iron deficiency Assessment 61y/o male admitted with ARF, CT shows possible bladder mass and bony mets + elevated PSA. Problem Qualifiers (1) Anemia: Qualified Code: D64.9 - Anemia, unspecified type Cam Arceo MD Apr 01, 2017 10:37
[2017-04-01] MEDS: AMINOCAPROIC ACID INJ 3,000 MG in SODIUM CHLORIDE 0.9% IRR BAG 3,000 ML IRRIGATION SCH (15:08)
--- NOTE | 2017-04-01 16:26 | HHI.PR ---
Subjective Remarks no complains of nausea or vomiting carson draining grossly clear urine toelrating HD Objective Vitals Vital Signs Date Time Temp Pulse Resp B/P Pulse Ox O2 Delivery O2 Flow Rate FiO2 04/01/17 14:00 71 04/01/17 12:00 71 04/01/17 12:00 98.1 60 20 144/68 95 04/01/17 10:00 71 04/01/17 08:00 99.0 71 16 150/82 96 04/01/17 08:00 71 04/01/17 06:00 69 04/01/17 04:00 98.7 60 16 152/70 95 04/01/17 04:00 62 04/01/17 02:00 62 04/01/17 00:00 98.8 59 16 144/64 96 04/01/17 00:00 59 03/31/17 22:00 56 03/31/17 20:00 95 Room Air 03/31/17 20:00 99.7 79 16 130/60 95 03/31/17 20:00 78 03/31/17 19:43 95 03/31/17 18:00 89 I/O 03/31/17 03/31/17 03/31/17 04/01/17 04/01/17 04/01/17 06:59 14:59 22:59 06:59 14:59 22:59 Intake Total 100 ml 300 ml 300 ml 560 ml Output Total 575 ml 2750 ml 1100 ml 500 ml Balance -475 ml -2450 ml -800 ml 60 ml Intake Oral 200 ml 200 ml 560 ml IV Total 100 ml 100 ml 100 ml Output Urine Total 575 ml 750 ml 1100 ml 500 ml Hemodialysis 2000 ml # Bowel Movements 1 1 Result Diagram: 04/01/17 0343 04/01/17 0343 Imaging Last Impressions Bone Biopsy CT 03/31/17 1346 Signed Impressions: Service Date/Time: March 14:07 - CONCLUSION: Uncomplicated CT guided biopsy. David Peña MD Upper Extremity Ultrasound 03/29/17 0000 Signed Impressions: Service Date/Time: Wednesday, March 29, 2017 08:43 - CONCLUSION: Normal examination. Art John MD Catheter Placement X-Ray 03/29/17 0000 Signed Impressions: Service Date/Time: Wednesday, March 29, 2017 08:50 - CONCLUSION: Uncomplicated PermaCath placement as above. Ferdinand Fisher MD Renal Ultrasound 03/25/17 0000 Signed Impressions: Service Date/Time: Saturday, March 25, 2017 22:14 - CONCLUSION: Marked hydronephrosis, Grade IV left kidney. There is no hydronephrosis on the right. Markedly thickened bladder wall. Damien Peña MD FACR Chest X-Ray 03/22/17 0000 Signed Impressions: Service Date/Time: Wednesday, March 22, 2017 16:05 - CONCLUSION: 1. Diffuse increased interstitial markings likely representing pulmonary edema. There is prominence of the central pulmonary vessels. 2. Hazy density bases with silhouetting hemidiaphragms from superimposed areas of consolidation/ atelectasis and effusions. Art Olivera MD Chest CT 03/21/17 0000 Signed Impressions: Service Date/Time: Tuesday, March 21, 2017 13:03 - CONCLUSION: 1. Moderate to large bilateral pleural effusions with associated compressive atelectasis in the lower lobes. 2. Bilateral patchy somewhat nodular groundglass opacities with upper lobe predominance likely related to positive fluid balance. 3. Diffuse sclerotic metastasis to the thoracic vertebra, ribs, and left scapula. 4. Bilateral moderate to severe hydronephrosis, incompletely imaged on this exam. This is similar to yesterday's ultrasound exam. 5. 3.6 cm coarsely calcified left thyroid nodule. This can be further evaluated with thyroid ultrasound as indicated. Ferdinand Fisher MD Abdomen/Pelvis CT 03/21/17 0000 Signed Impressions: Service Date/Time: Tuesday, March 21, 2017 13:03 - CONCLUSION: Large bladder mass with bone metastases. Small bilateral pleural effusions. Minimal retroperitoneal adenopathy. Damien Peña MD FACR Lower Extremity Ultrasound 03/20/17 0000 Signed Impressions: Service Date/Time: Monday, March 20, 2017 17:30 - CONCLUSION: Normal examination. Sebastián Greer MD Objective Remarks awake and alert NAD anictric lungs no rales regular rhythm abdomen soft, nontender extremities no edema carson in place Procedures 03/31- CT guided biospy right ilium Urinary Catheter: Yes Assessment to: Continue Carson insert reason: Obstruction/Retention A/P Problem List: (1) obstructive uropathy, renal failure Status: Acute (2) Bladder mass ICD Code: N32.89 Status: Acute (3) apparent bony metastases, elevated PSA, suspected prostate cancer Status: Acute (4) acute renal failure, on dialysis Status: Acute (5) hypertension Status: Acute (6) Anemia due to acute blood loss ICD Code: D62 Status: Acute Assessment and Plan 61-year-old man with Obstructive uropathy most likely secondary to Prostate cancer- PSA elevated S/P cystoscopy with clots s/p bladder irrigation and fulguration S/P CT guided bone biopsy of ileum -3 way carson placed - carson draining grossly clear urine Acute kidney injury/ CKD- obstructive Underwent cystoscopy with ureteral stenting on 03/[address] Fine. Currently on hemodialysis since 03/22 - Repeat cystoscopy with fulguration of bleeding sites and urinary bladder on 03/24 Continue with CBI . Patient may eventually require transrectal ultrasound and prostate needle biopsy to confirm diagnosis of prostate cancer which may be performed outpatient. Patient is not agreeable for biopsy of bone lesion Case was discussed on 03/30/[address] Calixto, palliative care medicine Appreciate input from oncology, palliative care medicine Hypertension Pulmonary edema Continue to Hold ASA /anticoagulants at this time as no symptoms of ACS and patient has symptomatic anemia. Metoprolol 25 mg by mouth every 12 hours. Still Not a candidate for ETHEL inhibitor due to acute kidney injury. Anemia of acute blood loss Leukocytosis - lymphocytosis. Transfused 8 units of PRBCs since admission Anemia secondary to hematuria and possible bone metastases. Appreciate input from Hematology Right upper extremity swelling- improved Doppler negative for thrombosis PROPH: Protonix 40 g IV daily for stress ulcer prophylaxis. SCDs for DVT prophylaxis. Hold on pharmacologic DVT prophylaxis due to severe anemia. transfer to floor PT consult Felisha Romero MD Apr 01, 2017 16:26
[2017-04-01] MEDS: IRR IRRIGATION SCH (17:00)
[2017-04-01] MEDS: SODIUM CHLORIDE 0.9% IRRIGATION SCH (17:00)
--- NOTE | 2017-04-01 18:07 | HHI.NPPN ---
Subjective History of Present Illness 61 year old with ARF no recovery possible prostate Ca Review of Systems General Constitutional: Fatigue Objective Data Data 03/31/17 04/01/17 18:59 06:59 Intake Total 100 ml 600 ml Output Total 2575 ml 1850 ml Balance -2475 ml -1250 ml Intake Oral 400 ml IV Total 100 ml 200 ml Output Urine Total 575 ml 1850 ml Hemodialysis 2000 ml # Bowel Movements 1 Vital Signs Date Time Temp Pulse Resp B/P Pulse Ox O2 Delivery O2 Flow Rate FiO2 04/01/17 16:00 71 04/01/17 14:00 71 04/01/17 12:00 71 04/01/17 12:00 98.1 60 20 144/68 95 04/01/17 10:00 71 04/01/17 08:00 99.0 71 16 150/82 96 04/01/17 08:00 71 04/01/17 06:00 69 04/01/17 04:00 98.7 60 16 152/70 95 04/01/17 04:00 62 04/01/17 02:00 62 04/01/17 00:00 98.8 59 16 144/64 96 04/01/17 00:00 59 03/31/17 22:00 56 03/31/17 20:00 95 Room Air 03/31/17 20:00 99.7 79 16 130/60 95 03/31/17 20:00 78 03/31/17 19:43 95 -: 04/01/17 0343 04/01/17 0343 Physical Exam General Appearance: Well Developed, Well Nourished Pulmonary Resp Exam: Clear Bilaterally, Breath Sounds Equal Cardiology CV Exam: Regular, Normal Sinus Rhythm Gastrointestinal/Abdomen GI Exam: Soft, Non-Tender, Bowel Sounds Present Extremeties Extremities Exam: Moderate Edema Assessment/Plan Problem List: (1) Acute renal failure Plan: He had dialysis UF 2 L next HD Tuesday had Biopsy of bone post PermCath follow BMP no recovery (2) Uropathy, obstructive Plan: Severe followed by urology (3) Anemia Plan: on epogen Problem Qualifiers (1) Anemia: Qualified Code: D64.9 - Anemia, unspecified type Karena Duval MD Apr 01, 2017 18:07
[2017-04-02] VITALS (8 sets, daily range): BP systolic 128–161; BP diastolic 61–71; PULSE 57–81; RESP 18–20; TEMP 96–99.2; O2SAT 93–98
[2017-04-02] MEDS: CHLORHEXIDINE GLUCONATE 2 % 1 PACK (2 CLOTHS) TOP SCH (04:00)
[2017-04-02] MEDS: AMINOCAPROIC ACID INJ 3,000 MG in SODIUM CHLORIDE 0.9% IRR BAG 3,000 ML IRRIGATION SCH (05:00)
[2017-04-02 07:33] LABS: BASOPHIL # 0.1 TH/MM3 (0-0.2); BASOPHIL % 0.8 % (0.0-2.0); EOSINOPHIL # 0.7 TH/MM3 (0-0.4); EOSINOPHIL % 6.2 % (0.0-4.0); HEMATOCRIT 27.9 % (39.0-51.0); HEMO FLAGS DIFF FINAL; LYMPH % 27.8 % (9.0-44.0); LYMPHOCYTE # 3.1 TH/MM3 (1.0-4.8); MEAN CELL VOLUME 89.4 FL (80.0-100.0); MEAN CORPUSCULAR HEMOGLOBIN 29.1 PG (27.0-34.0); MEAN CORPUSCULAR HGB CONC 32.6 % (32.0-36.0); MONO % 11.4 % (0.0-8.0); NEUT % 53.8 % (16.0-70.0); PLATELET COUNT 179 TH/MM3 (150-450); RED BLOOD COUNT 3.12 MIL/MM3 (4.50-5.90); RED CELL DISTRIBUTION WIDTH 16.2 % (11.6-17.2); WHITE BLOOD COUNT 11.1 TH/MM3 (4.0-11.0)
[2017-04-02] MEDS: PANTOPRAZOLE SODIUM 40 MG VIAL IV SCH (08:39)
[2017-04-02] MEDS: THIAMINE HCL 100 MG TAB PO SCH (08:39)
[2017-04-02] MEDS: SODIUM CHLORIDE 0.9% FLUSH 10 ML FLUSH IV FLUSH SCH ×2 (08:40→21:00)
[2017-04-02] MEDS: DOCUSATE SODIUM 50 MG/SENNA 8.6 MG TAB PO SCH ×2 (08:40→21:00)
[2017-04-02] MEDS: CALCIUM ACETATE 667 MG CAP PO SCH ×3 (08:40→17:53)
[2017-04-02] MEDS: METOPROLOL TARTRATE 25 MG TAB PO SCH ×2 (09:00→21:00)
[2017-04-02] MEDS: CHOLECALCIFEROL (VIT D3) 5000 UNIT CAP PO SCH (09:00)
--- NOTE | 2017-04-02 09:03 | HHI.PR ---
Subjective Remarks no complains po 100%. no nausea or vomiting Carson- CBOI grossly clear urine Objective Vitals Vital Signs Date Time Temp Pulse Resp B/P Pulse Ox O2 Delivery O2 Flow Rate FiO2 04/02/17 08:26 97 21 04/02/17 07:00 96.8 59 20 161/69 93 04/02/17 04:00 99.2 57 18 144/66 98 04/02/17 00:00 99.2 64 18 151/67 97 04/01/17 22:30 56 04/01/17 22:30 97 Room Air 21 04/01/17 22:07 96.3 59 18 174/76 97 04/01/17 20:08 96 21 04/01/17 20:00 73 04/01/17 20:00 99.7 73 53 160/73 94 04/01/17 19:00 95 Room Air 04/01/17 18:00 71 04/01/17 16:00 71 04/01/17 16:00 98.1 60 22 138/63 96 04/01/17 14:00 71 04/01/17 12:00 71 04/01/17 12:00 98.1 60 20 144/68 95 04/01/17 10:00 71 I/O 04/01/17 04/01/17 04/01/17 04/02/17 04/02/17 04/02/17 06:59 14:59 22:59 06:59 14:59 22:59 Intake Total 300 ml 560 ml 240 ml Output Total 1100 ml 500 ml 1575 ml 3265 ml Balance -800 ml 60 ml -1575 ml -3025 ml Intake Oral 200 ml 560 ml 240 ml IV Total 100 ml Output Urine Total 1100 ml 500 ml 1575 ml 3265 ml # Bowel Movements 1 Result Diagram: 04/02/17 0542 04/02/17 0542 Imaging Last Impressions Bone Biopsy CT 03/31/17 1346 Signed Impressions: Service Date/Time: March 14:07 - CONCLUSION: Uncomplicated CT guided biopsy. David Peña MD Upper Extremity Ultrasound 03/29/17 0000 Signed Impressions: Service Date/Time: Wednesday, March 29, 2017 08:43 - CONCLUSION: Normal examination. Art John MD Catheter Placement X-Ray 03/29/17 0000 Signed Impressions: Service Date/Time: Wednesday, March 29, 2017 08:50 - CONCLUSION: Uncomplicated PermaCath placement as above. Ferdinand Fisher MD Renal Ultrasound 03/25/17 0000 Signed Impressions: Service Date/Time: Saturday, March 25, 2017 22:14 - CONCLUSION: Marked hydronephrosis, Grade IV left kidney. There is no hydronephrosis on the right. Markedly thickened bladder wall. Damien Peña MD FACR Chest X-Ray 03/22/17 Signed Impressions: Service Date/Time: Wednesday, March 22, 2017 16:05 - CONCLUSION: 1. Diffuse increased interstitial markings likely representing pulmonary edema. There is prominence of the central pulmonary vessels. 2. Hazy density bases with silhouetting hemidiaphragms from superimposed areas of consolidation/ atelectasis and effusions. Art Olivera MD Chest CT 03/21/17 Signed Impressions: Service Date/Time: Tuesday, March 21, 2017 13:03 - CONCLUSION: 1. Moderate to large bilateral pleural effusions with associated compressive atelectasis in the lower lobes. 2. Bilateral patchy somewhat nodular groundglass opacities with upper lobe predominance likely related to positive fluid balance. 3. Diffuse sclerotic metastasis to the thoracic vertebra, ribs, and left scapula. 4. Bilateral moderate to severe hydronephrosis, incompletely imaged on this exam. This is similar to yesterday's ultrasound exam. 5. 3.6 cm coarsely calcified left thyroid nodule. This can be further evaluated with thyroid ultrasound as indicated. Ferdinand Fisher MD Abdomen/Pelvis CT 03/21/17 Signed Impressions: Service Date/Time: Tuesday, March 21, 2017 13:03 - CONCLUSION: Large bladder mass with bone metastases. Small bilateral pleural effusions. Minimal retroperitoneal adenopathy. Damien Peña MD FACR Lower Extremity Ultrasound 03/20/17 Signed Impressions: Service Date/Time: Monday, March 20, 2017 17:30 - CONCLUSION: Normal examination. Sebastián Greer MD Objective Remarks awake and alert NAD anicteric right chest wall- permcath in place lungs no rales regular rhythm abdomen soft, nontender extremities no edema carson in place Procedures 03/31- CT guided biospy right ilium 03/29- permacath placement Urinary Catheter: Yes Assessment to: Continue Carson insert reason: Obstruction/Retention A/P Problem List: (1) obstructive uropathy, renal failure Status: Acute (2) Bladder mass ICD Code: N32.89 Status: Acute (3) apparent bony metastases, elevated PSA, suspected prostate cancer Status: Acute (4) acute renal failure, on dialysis Status: Acute (5) hypertension Status: Acute (6) Anemia due to acute blood loss ICD Code: D62 Status: Acute Assessment and Plan 61-year-old man with Obstructive uropathy most likely secondary to Prostate cancer- PSA elevated S/P cystoscopy with clots s/p bladder irrigation and fulguration S/P CT guided bone biopsy of ileum -3 way carson placed - carson draining grossly clear urine- Acute kidney injury/ CKD- obstructive uropathy Underwent cystoscopy with ureteral stenting on 03/[address] Fine. Currently on hemodialysis since 03/22 - - Repeat cystoscopy with fulguration of bleeding sites and urinary bladder on 03/24 Continue with CBI . Patient may eventually require transrectal ultrasound and prostate needle biopsy to confirm diagnosis of prostate cancer which may be performed outpatient. - ask staff nurse to call urology if we can hold CBI and monitor 03/30/[address] Calixto, palliative care medicine Appreciate input from oncology, palliative care medicine Hypertension Pulmonary edema Continue to Hold ASA /anticoagulants at this time as no symptoms of ACS and patient has symptomatic anemia. Metoprolol 25 mg by mouth every 12 hours. Still Not a candidate for ETHEL inhibitor due to acute kidney injury. Anemia of acute blood loss Leukocytosis - lymphocytosis. Transfused 8 units of PRBCs since admission Anemia secondary to hematuria and possible bone metastases. Appreciate input from Hematology H and H stable Right upper extremity swelling- improved Doppler negative for thrombosis PROPH: Protonix 40 g IV daily for stress ulcer prophylaxis. SCDs for DVT prophylaxis. Hold on pharmacologic DVT prophylaxis due to severe anemia. transfer to floor PT consult Felisha Romero MD Apr 02, 2017 09:02
[2017-04-02] MEDS: GENTAMICIN SULFATE (DIALYSIS USE ONLY) 20 MG/2 ML VIAL IV PRN (11:01)
[2017-04-02] MEDS: HEPARIN SODIUM - IV 10,000 UNITS/10 ML VIAL PRN (11:01)
--- NOTE | 2017-04-02 12:10 | HHI.NPPN ---
Subjective History of Present Illness 61 year old with ARF no recovery possible prostate Ca Review of Systems General Constitutional: Fatigue Objective Data Data 04/01/17 04/02/17 19:00 07:00 Intake Total 560 ml 240 ml Output Total 500 ml 4840 ml Balance 60 ml -4600 ml Intake Oral 560 ml 240 ml Output Urine Total 500 ml 4840 ml # Bowel Movements 1 Vital Signs Date Time Temp Pulse Resp B/P Pulse Ox O2 Delivery O2 Flow Rate FiO2 04/02/17 08:46 Room Air 04/02/17 08:26 97 21 04/02/17 07:00 96.8 59 20 161/69 93 04/02/17 04:00 99.2 57 18 144/66 98 04/02/17 00:00 99.2 64 18 151/67 97 04/01/17 22:30 56 04/01/17 22:30 97 Room Air 21 04/01/17 22:07 96.3 59 18 174/76 97 04/01/17 20:08 96 21 04/01/17 20:00 73 04/01/17 20:00 99.7 73 53 160/73 94 04/01/17 19:00 95 Room Air 04/01/17 18:00 71 04/01/17 16:00 71 04/01/17 16:00 98.1 60 22 138/63 96 04/01/17 14:00 71 -: 04/02/17 0542 04/02/17 0542 Physical Exam General Appearance: Well Developed, Well Nourished Pulmonary Resp Exam: Clear Bilaterally, Breath Sounds Equal Cardiology CV Exam: Regular, Normal Sinus Rhythm Gastrointestinal/Abdomen GI Exam: Soft, Non-Tender, Bowel Sounds Present Extremeties Extremities Exam: Moderate Edema Assessment/Plan Problem List: (1) Acute renal failure Plan: He had bone biopsy await results HD proceedings UF 2 L tolerating it had Biopsy of bone post PermCath follow BMP no recovery (2) Uropathy, obstructive Plan: Severe followed by urology (3) Anemia Plan: on epogen Problem Qualifiers (1) Anemia: Qualified Code: D64.9 - Anemia, unspecified type Karena Duval MD Apr 02, 2017 12:09
[2017-04-02] MEDS: IRR IRRIGATION SCH (17:00)
[2017-04-02] MEDS: SODIUM CHLORIDE 0.9% IRRIGATION SCH (17:00)
[2017-04-02] MEDS: CEFEPIME INJ 1,000 MG in SODIUM CHLORIDE 0.9% INJ 100 ML IV SCH (23:47)
[2017-04-03] VITALS (10 sets, daily range): BP systolic 142–172; BP diastolic 64–77; PULSE 53–66; RESP 17–21; TEMP 97.6–99; O2SAT 94–98
[2017-04-03] MEDS: CHLORHEXIDINE GLUCONATE 2 % 1 PACK (2 CLOTHS) TOP SCH (04:00)
--- NOTE | 2017-04-03 08:09 | HHI.PR ---
Subjective Remarks appetite improving- "great" no nausea or vomiting CBI was discontinued yesterday pm carson draining light red tinged urine, some sediments Objective Vitals Vital Signs Date Time Temp Pulse Resp B/P Pulse Ox O2 Delivery O2 Flow Rate FiO2 04/03/17 04:00 53 04/03/17 04:00 98.8 57 18 142/65 97 04/03/17 00:00 98.6 58 17 169/77 98 04/03/17 00:00 59 04/02/17 21:00 Room Air 04/02/17 20:00 66 04/02/17 20:00 99.0 61 18 156/69 98 04/02/17 15:42 96 21 04/02/17 15:34 96.0 81 20 149/71 93 04/02/17 12:50 98.2 61 20 128/61 97 04/02/17 08:46 Room Air 04/02/17 08:26 97 21 I/O 04/02/17 04/02/17 04/02/17 04/03/17 04/03/17 04/03/17 07:00 15:00 23:00 07:00 15:00 23:00 Intake Total 240 ml 581 ml 480 ml 355 ml Output Total 3265 ml 3450 ml 350 ml 600 ml Balance -3025 ml -2869 ml 130 ml -245 ml Intake Oral 240 ml 581 ml 480 ml 240 ml IV Total 115 ml Output Urine Total 3265 ml 1450 ml 350 ml 600 ml Hemodialysis 2000 ml # Bowel Movements 1 Result Diagram: 04/02/17 0542 04/02/17 0542 Imaging Last Impressions Bone Biopsy CT 03/31/17 1346 Signed Impressions: Service Date/Time: March 14:07 - CONCLUSION: Uncomplicated CT guided biopsy. David Peña MD Upper Extremity Ultrasound 03/29/17 0000 Signed Impressions: Service Date/Time: Wednesday, March 29, 2017 08:43 - CONCLUSION: Normal examination. Art John MD Catheter Placement X-Ray 03/29/17 0000 Signed Impressions: Service Date/Time: Wednesday, March 29, 2017 08:50 - CONCLUSION: Uncomplicated PermaCath placement as above. Ferdinand Fisher MD Renal Ultrasound 03/25/17 0000 Signed Impressions: Service Date/Time: Saturday, March 25, 2017 22:14 - CONCLUSION: Marked hydronephrosis, Grade IV left kidney. There is no hydronephrosis on the right. Markedly thickened bladder wall. Damien Peña MD FACR Chest X-Ray 03/22/17 0000 Signed Impressions: Service Date/Time: Wednesday, March 22, 2017 16:05 - CONCLUSION: 1. Diffuse increased interstitial markings likely representing pulmonary edema. There is prominence of the central pulmonary vessels. 2. Hazy density bases with silhouetting hemidiaphragms from superimposed areas of consolidation/ atelectasis and effusions. Art Olivera MD Chest CT 03/21/17 0000 Signed Impressions: Service Date/Time: Tuesday, March 21, 2017 13:03 - CONCLUSION: 1. Moderate to large bilateral pleural effusions with associated compressive atelectasis in the lower lobes. 2. Bilateral patchy somewhat nodular groundglass opacities with upper lobe predominance likely related to positive fluid balance. 3. Diffuse sclerotic metastasis to the thoracic vertebra, ribs, and left scapula. 4. Bilateral moderate to severe hydronephrosis, incompletely imaged on this exam. This is similar to yesterday's ultrasound exam. 5. 3.6 cm coarsely calcified left thyroid nodule. This can be further evaluated with thyroid ultrasound as indicated. Ferdinand Fisher MD Abdomen/Pelvis CT 03/21/17 0000 Signed Impressions: Service Date/Time: Tuesday, March 21, 2017 13:03 - CONCLUSION: Large bladder mass with bone metastases. Small bilateral pleural effusions. Minimal retroperitoneal adenopathy. Damien Peña MD FACR Lower Extremity Ultrasound 03/20/17 0000 Signed Impressions: Service Date/Time: Monday, March 20, 2017 17:30 - CONCLUSION: Normal examination. Sebastián Greer MD Objective Remarks awake and alert NAD anicteric right chest wall- permcath in place lungs no rales regular rhythm abdomen soft, nontender extremities no edema carson in place- draining lgrossly clear urine with some blood sediments Procedures 03/31- CT guided biospy right ilium 03/29- permacath placement Urinary Catheter: Yes Carson insert reason: Obstruction/Retention A/P Problem List: (1) obstructive uropathy, renal failure Status: Acute (2) Bladder mass ICD Code: N32.89 Status: Acute (3) apparent bony metastases, elevated PSA, suspected prostate cancer Status: Acute (4) acute renal failure, on dialysis Status: Acute (5) hypertension Status: Acute (6) Anemia due to acute blood loss ICD Code: D62 Status: Acute Assessment and Plan 61-year-old man with Obstructive uropathy most likely secondary to Prostate cancer- PSA elevated S/P cystoscopy with clots s/p bladder irrigation and fulguration S/P CT guided bone biopsy of ileum- pathology still pending -3 way carson placed - carson draining grossly clear urine- Acute kidney injury/ CKD- obstructive uropathy Underwent cystoscopy with ureteral stenting on 03/[address] Fine. Currently on hemodialysis since 03/22 - - Repeat cystoscopy with fulguration of bleeding sites and urinary bladder on 03/24 Patient may eventually require transrectal ultrasound and prostate needle biopsy to confirm diagnosis of prostate cancer which may be performed outpatient. on CBI .- discontinued on - - monitor for any more gross hematuria and urine output Urology ff get CBC, BMP today strict I and O q shift 03/30/[address] Calixto, palliative care medicine Appreciate input from oncology, palliative care medicine Hypertension Pulmonary edema Continue to Hold ASA /anticoagulants at this time as no symptoms of ACS and patient has symptomatic anemia. Metoprolol 25 mg by mouth every 12 hours. Not a candidate for ETHEL inhibitor due to acute kidney injury. consider adding Amlodipine - will monitor Anemia of acute blood loss Leukocytosis - lymphocytosis. Transfused 8 units of PRBCs since admission Anemia secondary to hematuria and possible bone metastases. Appreciate input from Hematology H and H stable Right upper extremity swelling- improved Doppler negative for thrombosis PROPH: Protonix 40 mg for prophylaxis. SCDs for DVT prophylaxis. Hold on pharmacologic DVT prophylaxis due to severe anemia. transfer to floor PT- generalized weakness Felisha Romero MD Apr 03, 2017 08:09
[2017-04-03 08:16] LABS: HEMATOCRIT 28.5 % (39.0-51.0); MEAN CELL VOLUME 89.4 FL (80.0-100.0); MEAN CORPUSCULAR HEMOGLOBIN 28.9 PG (27.0-34.0); MEAN CORPUSCULAR HGB CONC 32.4 % (32.0-36.0); PLATELET COUNT 180 TH/MM3 (150-450); RED BLOOD COUNT 3.19 MIL/MM3 (4.50-5.90); RED CELL DISTRIBUTION WIDTH 16.5 % (11.6-17.2); REVIEW FLAG FINAL; WHITE BLOOD COUNT 11.9 TH/MM3 (4.0-11.0)
[2017-04-03 08:46] LABS: BICARBONATE 29.5 MEQ/L (21.0-32.0); POTASSIUM 3.7 MEQ/L (3.5-5.1)
[2017-04-03] MEDS: CHOLECALCIFEROL (VIT D3) 5000 UNIT CAP PO SCH (09:37)
[2017-04-03] MEDS: CALCIUM ACETATE 667 MG CAP PO SCH ×3 (09:37→17:23)
[2017-04-03] MEDS: PANTOPRAZOLE SOD 40 MG DELAYED RELEASE TAB PO SCH (09:38)
[2017-04-03] MEDS: DOCUSATE SODIUM 50 MG/SENNA 8.6 MG TAB PO SCH ×2 (09:38→21:12)
[2017-04-03] MEDS: THIAMINE HCL 100 MG TAB PO SCH (09:38)
[2017-04-03] MEDS: METOPROLOL TARTRATE 25 MG TAB PO SCH ×2 (09:38→21:12)
--- NOTE | 2017-04-03 15:49 | HHI.NPPN ---
Subjective History of Present Illness 61 year old with ARF no recovery possible prostate Ca Review of Systems General Constitutional: Fatigue Objective Data Data 04/02/17 04/03/17 19:00 07:00 Intake Total 581 ml 835 ml Output Total 3450 ml 950 ml Balance -2869 ml -115 ml Intake Oral 581 ml 720 ml IV Total 115 ml Output Urine Total 1450 ml 950 ml Hemodialysis 2000 ml # Bowel Movements 1 Vital Signs Date Time Temp Pulse Resp B/P Pulse Ox O2 Delivery O2 Flow Rate FiO2 04/03/17 12:01 98.6 60 20 155/64 94 04/03/17 09:56 Room Air 04/03/17 08:50 97.6 58 21 172/75 94 04/03/17 04:00 53 04/03/17 04:00 98.8 57 18 142/65 97 04/03/17 00:00 98.6 58 17 169/77 98 04/03/17 00:00 59 04/02/17 21:00 Room Air 04/02/17 20:00 66 04/02/17 20:00 99.0 61 18 156/69 98 -: 04/03/17 0802 04/03/17 0802 Physical Exam General Appearance: Well Developed, Well Nourished Pulmonary Resp Exam: Clear Bilaterally, Breath Sounds Equal Cardiology CV Exam: Regular, Normal Sinus Rhythm Gastrointestinal/Abdomen GI Exam: Soft, Non-Tender, Bowel Sounds Present Extremeties Extremities Exam: Moderate Edema Assessment/Plan Problem List: (1) Acute renal failure Plan: He had bone biopsy await results HD yesterday post PermCath follow BMP no recovery (2) Uropathy, obstructive Plan: Severe followed by urology (3) Anemia Plan: on epogen (4) hypertension Plan: add Norvasc 5 mg Problem Qualifiers (1) Anemia: Qualified Code: D64.9 - Anemia, unspecified type Karena Duval MD Apr 03, 2017 15:49
[2017-04-03] MEDS: IRR IRRIGATION SCH (17:00)
[2017-04-03] MEDS: SODIUM CHLORIDE 0.9% IRRIGATION SCH (17:00)
[2017-04-03] MEDS: SODIUM CHLORIDE 0.9% FLUSH 10 ML FLUSH IV FLUSH SCH ×2 (17:24→21:12)
[2017-04-03] MEDS: amLODIPine BESYLATE 5 MG TAB PO SCH (17:24)
[2017-04-03] MEDS: LACTULOSE SYRUP 20 GM/30 ML CUP PO PRN (17:28)
[2017-04-04] VITALS (11 sets, daily range): BP systolic 146–191; BP diastolic 65–79; PULSE 50–59; RESP 16–19; TEMP 98–99.6; O2SAT 96–100
[2017-04-04] MEDS: CHLORHEXIDINE GLUCONATE 2 % 1 PACK (2 CLOTHS) TOP SCH (04:00)
[2017-04-04] MEDS: METOPROLOL TARTRATE 25 MG TAB PO SCH ×2 (08:59→20:29)
[2017-04-04] MEDS: amLODIPine BESYLATE 5 MG TAB PO SCH (09:00)
[2017-04-04] MEDS: DOCUSATE SODIUM 50 MG/SENNA 8.6 MG TAB PO SCH ×2 (09:00→20:29)
[2017-04-04] MEDS: PANTOPRAZOLE SOD 40 MG DELAYED RELEASE TAB PO SCH (09:00)
[2017-04-04] MEDS: CALCIUM ACETATE 667 MG CAP PO SCH ×3 (09:00→17:25)
[2017-04-04] MEDS: CHOLECALCIFEROL (VIT D3) 5000 UNIT CAP PO SCH (09:00)
[2017-04-04] MEDS: THIAMINE HCL 100 MG TAB PO SCH (09:00)
[2017-04-04] MEDS: SODIUM CHLORIDE 0.9% FLUSH 10 ML FLUSH IV FLUSH SCH ×2 (09:05→20:33)
--- NOTE | 2017-04-04 10:25 | HHI.PR ---
Subjective Remarks carson draining grossly clear urine- - CBI discontinued 2 days ago no complains on telemetry- HR- goes down to 50s when asllep- lowest 48- sinus no complains Objective Vitals Vital Signs Date Time Temp Pulse Resp B/P Pulse Ox O2 Delivery O2 Flow Rate FiO2 04/04/17 08:00 98.0 56 18 191/79 98 04/04/17 04:00 99.6 55 18 167/77 96 04/04/17 04:00 52 04/04/17 01:03 54 04/04/17 00:00 98.9 59 19 146/65 96 04/03/17 21:15 Room Air 04/03/17 20:01 58 04/03/17 20:00 99.0 66 20 156/70 97 04/03/17 16:37 55 04/03/17 16:22 98.5 56 20 147/67 97 04/03/17 12:43 56 04/03/17 12:01 98.6 60 20 155/64 94 I/O 04/03/17 04/03/17 04/03/17 04/04/17 04/04/17 04/04/17 07:00 15:00 23:00 07:00 15:00 23:00 Intake Total 355 ml 840 ml 480 ml 240 ml Output Total 600 ml 350 ml 450 ml 300 ml Balance -245 ml 490 ml 30 ml -60 ml Intake Oral 240 ml 840 ml 480 ml 240 ml IV Total 115 ml Output Urine Total 600 ml 350 ml 450 ml 300 ml # Bowel Movements 2 Result Diagram: 04/03/17 0802 04/03/17 0802 Imaging Last Impressions Bone Biopsy CT 03/31/17 1346 Signed Impressions: Service Date/Time: March 14:07 - CONCLUSION: Uncomplicated CT guided biopsy. David Peña MD Upper Extremity Ultrasound 03/29/17 0000 Signed Impressions: Service Date/Time: Wednesday, March 29, 2017 08:43 - CONCLUSION: Normal examination. Art John MD Catheter Placement X-Ray 03/29/17 0000 Signed Impressions: Service Date/Time: Wednesday, March 29, 2017 08:50 - CONCLUSION: Uncomplicated PermaCath placement as above. Ferdinand Fisher MD Renal Ultrasound 7/7/17 0000 Signed Impressions: Service Date/Time: Saturday, March 25, 2017 22:14 - CONCLUSION: Marked hydronephrosis, Grade IV left kidney. There is no hydronephrosis on the right. Markedly thickened bladder wall. Damien Peña MD FACR Chest X-Ray 03/22/17 Signed Impressions: Service Date/Time: Wednesday, March 22, 2017 16:05 - CONCLUSION: 1. Diffuse increased interstitial markings likely representing pulmonary edema. There is prominence of the central pulmonary vessels. 2. Hazy density bases with silhouetting hemidiaphragms from superimposed areas of consolidation/ atelectasis and effusions. Art Olivera MD Chest CT 03/21/17 Signed Impressions: Service Date/Time: Tuesday, March 21, 2017 13:03 - CONCLUSION: 1. Moderate to large bilateral pleural effusions with associated compressive atelectasis in the lower lobes. 2. Bilateral patchy somewhat nodular groundglass opacities with upper lobe predominance likely related to positive fluid balance. 3. Diffuse sclerotic metastasis to the thoracic vertebra, ribs, and left scapula. 4. Bilateral moderate to severe hydronephrosis, incompletely imaged on this exam. This is similar to yesterday's ultrasound exam. 5. 3.6 cm coarsely calcified left thyroid nodule. This can be further evaluated with thyroid ultrasound as indicated. Ferdinand Fisher MD Abdomen/Pelvis CT 03/21/17 Signed Impressions: Service Date/Time: Tuesday, March 21, 2017 13:03 - CONCLUSION: Large bladder mass with bone metastases. Small bilateral pleural effusions. Minimal retroperitoneal adenopathy. Damien Peña MD FACR Lower Extremity Ultrasound 03/20/17 0000 Signed Impressions: Service Date/Time: Monday, March 20, 2017 17:30 - CONCLUSION: Normal examination. Sebastián Greer MD Objective Remarks awake and alert NAD anicteric right chest wall- permcath in place lungs no rales regular rhythm abdomen soft, nontender extremities no edema carson in place- draining grossly clear urine with some blood sediments Procedures 03/31- CT guided biospy right ilium 03/29- permacath placement Urinary Catheter: Yes Assessment to: Continue Carson insert reason: Obstruction/Retention A/P Problem List: (1) obstructive uropathy, renal failure Status: Acute (2) Bladder mass ICD Code: N32.89 Status: Acute (3) apparent bony metastases, elevated PSA, suspected prostate cancer Status: Acute (4) acute renal failure, on dialysis Status: Acute (5) hypertension Status: Acute (6) Anemia due to acute blood loss ICD Code: D62 Status: Acute Assessment and Plan 61-year-old man with Obstructive uropathy most likely secondary to Prostate cancer- PSA elevated S/P cystoscopy with clots s/p bladder irrigation and fulguration S/P CT guided bone biopsy of ileum- pathology still pending -3 way carson placed - carson draining grossly clear urine- Acute kidney injury/ CKD- obstructive uropathy Underwent cystoscopy with ureteral stenting on 03/[address] Fine. Currently on hemodialysis since 03/22 - - Repeat cystoscopy with fulguration of bleeding sites and urinary bladder on 03/24 Patient may eventually require transrectal ultrasound and prostate needle biopsy to confirm diagnosis of prostate cancer which may be performed outpatient. on CBI .- discontinued on .- 15- monitor for any more gross hematuria and urine output Urology ff H and H stable. renal functions no improvement 03/30/[address] Calixto, palliative care medicine Appreciate input from oncology, palliative care medicine Hypertension Pulmonary edema HYpertension on BB- some bradycardia Continue to Hold ASA /anticoagulants at this time as no symptoms of ACS and patient has symptomatic anemia. Metoprolol 25 mg by mouth every 12 hours.- decreased to 12.5 mg po bid with hold parameter Increase Amlodipine to 10 mg daily 04/04 Not a candidate for ETHEL inhibitor due to acute kidney injury. consider adding alpha fab for additonal BP control Anemia of acute blood loss Leukocytosis - lymphocytosis. Transfused 8 units of PRBCs since admission Anemia secondary to hematuria and possible bone metastases. Appreciate input from Hematology H and H stable Right upper extremity swelling- improved Doppler negative for thrombosis PROPH: Protonix 40 mg for prophylaxis. SCDs for DVT prophylaxis. Hold on pharmacologic DVT prophylaxis due to severe anemia. transfer to floor PT- generalized weakness Felisha Romero MD Apr 04, 2017 10:25 Felisha Romero MD Apr 04, 2017 10:25
[2017-04-04] MEDS ORDERED: PILL SPLITTER OTHER PRN (11:00)
[2017-04-04 11:21] LABS: BICARBONATE 25.8 MEQ/L (21.0-32.0); POTASSIUM 3.9 MEQ/L (3.5-5.1)
--- NOTE | 2017-04-04 12:42 | HHI.PR ---
Subjective Patient symptoms today Pt seen and examined. Feeling better. C/O constipation. Creatinine 5.9 Objective Vital Signs Vital Signs Date Time Temp Pulse Resp B/P Pulse Ox O2 Delivery O2 Flow Rate FiO2 04/04/17 08:00 98.0 56 18 191/79 98 04/04/17 04:00 99.6 55 18 167/77 96 04/04/17 04:00 52 04/04/17 01:03 54 04/04/17 00:00 98.9 59 19 146/65 96 04/03/17 21:15 Room Air 04/03/17 20:01 58 04/03/17 20:00 99.0 66 20 156/70 97 04/03/17 16:37 55 04/03/17 16:22 98.5 56 20 147/67 97 04/03/17 12:43 56 Intake & Output 04/04/17 04/04/17 07:00 19:00 Intake Total 720 ml Output Total 750 ml Balance -30 ml Intake Oral 720 ml Output Urine Total 750 ml Result Diagram: 04/03/17 0802 04/04/17 0854 Objective Remarks Abd:soft, tender over bladder Ext:2+ edema 03/23 Abd: soft,nt,nd Pollock: blood tinged on Amicar CBI 03/[address] draining clear urine Abdomen soft, nondistended, nontender 04/04 Abd:soft,nt,nd Pollock: urine clear; off Amicar Medications and IVs Current Medications Medications (Trade) Dose Ordered Sig/Nasreen Route Start Time Stop Time Status Last Admin (NS Flush) 2 ml UNSCH PRN IV FLUSH 03/20/17 18:15 (NS Flush) 2 ml BID IV FLUSH 03/20/17 21:00 04/04/17 09:05 (Tylenol) 650 mg Q6H PRN PO 03/20/17 18:15 ([place] 5-325 Mg) 1 tab Q4H PRN PO 03/20/17 18:15 03/30/17 09:12 (Morphine Inj) 2 mg Q2H PRN IV PUSH 03/20/17 18:30 03/26/17 02:06 (Zofran Inj) 4 mg Q6H PRN IV 03/20/17 18:15 03/23/17 17:52 Miscellaneous Information 1 Q361D XX 03/20/17 18:15 03/20/17 21:46 (Chlorhexidine 2% Cloth) Taper DAILY@04 TOP 03/21/17 04:00 03/17/18 03:59 04/02/17 04:00 (Chlorhexidine 2% Cloth) 3 pack UNSCH PRN TOP 03/20/17 18:15 (Negin-Colace) 1 tab BID PO 03/20/17 21:00 04/04/17 09:00 (Milk Of Magnesia Liq) 30 ml Q12H PRN PO 03/20/17 18:15 04/04/17 09:04 (Senokot) 17.2 mg Q12H PRN PO 03/20/17 18:15 (Dulcolax Supp) 10 mg DAILY PRN RECTAL 03/20/17 18:15 (Lactulose Liq) 30 ml DAILY PRN PO 03/20/17 18:15 04/03/17 17:28 Calcium Acetate 667 mg 667 mg TID PO 03/21/17 18:00 04/04/17 09:00 Sodium Chloride 1,000 ml @ 0 mls/hr Q0M PRN IV 03/22/17 11:58 03/25/17 14:07 Sodium Chloride 1,000 ml @ 200 mls/hr Q5H PRN IV 03/22/17 11:58 04/02/17 11:01 (NS 1000 ml Inj) 1,000 ml @ 0 mls/hr Q0M PRN IV 03/22/17 11:58 (Mannitol Inj) 12.5 gm UNSCH PRN IV 03/22/17 12:00 (Albumin 25% Inj) 25 gm UNSCH PRN IV 03/22/17 12:00 (NS Flush) 5 ml UNSCH PRN IV FLUSH 03/22/17 12:00 (Heparin Inj) UNSCH PRN .XX 03/22/17 12:00 04/02/17 11:01 (Gentamicin (Dialysis) Inj) 20 mg UNSCH PRN IV 03/22/17 12:00 04/02/17 11:01 (Zofran Inj) 4 mg UNSCH PRN IV 03/22/17 12:00 (Tylenol) 650 mg UNSCH PRN PO 03/22/17 12:00 (Benadryl) 25 mg UNSCH PRN PO 03/22/17 12:00 (Nitrostat Sl) 0.4 mg UNSCH PRN SL 03/22/17 12:00 (Catapres) 0.1 mg UNSCH PRN PO 03/22/17 12:00 (Epogen Inj) 10,000 units UNSCH PRN IV 03/22/17 12:00 03/25/17 14:06 (Gelfoam 12 Mm/7 Mm Top) 1 foam UNSCH PRN TOP 03/22/17 12:00 Cholecalciferol 5000 units 5,000 units DAILY PO 03/23/17 09:00 04/04/17 09:00 (NS Irr Bag) 3,000 ml @ 125.5 mls/ hr Q24H IRRIGATION 03/23/17 17:00 03/31/17 17:00 (Narcan Inj) 0.4 mg Q2M PRN IV PUSH 03/23/17 17:00 (Vitamin B1) 100 mg DAILY PO 03/26/17 11:45 04/04/17 09:00 (Romazicon Inj) 0.2 mg Q1M PRN IV PUSH 03/26/17 11:30 (Ativan) 1 mg Q4H PRN PO 03/26/17 11:30 03/27/17 10:52 (Ativan Inj) 1 mg Q4H PRN IV PUSH 03/26/17 11:30 (Ativan) 2 mg Q2H PRN PO 03/26/17 11:30 03/28/17 00:15 (Ativan Inj) 2 mg Q2H PRN IV PUSH 03/26/17 11:30 (Ativan Inj) 2 mg Q1H PRN IV PUSH 03/26/17 11:30 (Ativan Inj) 2 mg Q15M PRN IV PUSH 03/26/17 11:30 (Haldol Inj) 2 mg Q15M PRN IM 03/26/17 11:30 (NS Flush) UNSCH PRN IVF 03/29/17 10:00 (Heparin Inj) UNSCH PRN IV FLUSH 03/29/17 10:00 (Protonix) 40 mg DAILY PO 04/03/17 09:00 04/04/17 09:00 (Norvasc) 10 mg DAILY PO 04/05/17 09:00 (Lopressor) 12.5 mg Q12HR PO 04/04/17 21:00 (Pill Splitter) 1 ea UNSCH PRN OTHER 04/04/17 11:00 Assessment and Plan Assessment and Plan 61-year-old male with acute renal failure and evidence of bladder outlet obstruction with elevated PSA and family history of prostate cancer. Maintain Pollock catheter and monitor for postobstructive diuresis. Holding replacement fluids at present due to evidence of pulmonary edema on chest x-ray. CT scan ordered for later today. We'll start Flomax in the future once his creatinine starts to baseline. Once Pollock catheter has been removed and he is voiding we'll need to repeat PSA at that time. We'll follow with you. Thank you for the consult and allowing me to participate in the care of this patient. 03/22 61-year-old male with acute renal failure and evidence of bladder outlet obstruction with elevated PSA and family history of prostate cancer with blastic lesions of pelvis on CT scan For cysto/clot evacuation/RPG's with possible stents and bladder bx with fulguration if necessary in OR today NPO Risks and benefits discussed with pt and daughter at bedside. 03/23 61-year-old male with acute renal failure and evidence of bladder outlet obstruction with elevated PSA and family history of prostate cancer with blastic lesions of pelvis on CT scan s/p cystoscopy with clot evacuation and b/ l JJ stent insertion Continue Amicar CBI Irrigate prn Will need PNBx in the future after ARF has resolved and overall condition is improved. Maybe done as outpt. 03/28 Resolved gross hematuria Maintain Pollock catheter to gravity drainage Will eventually require transrectal ultrasound and prostate needle biopsy to confirm diagnosis of prostate cancer, this may be performed as an outpatient. 04/04 61 y.o male with ARF/gross hematuria/elevated PSA with probable CaP with h/o left hydronephrosis after b/l stent insertion Will obtain CT scan to evaluate resolution of left hydronephrosis PNBx as outpt. Zion Fine DO Apr 04, 2017 12:42
--- NOTE | 2017-04-04 12:59 | PD.ONC.PN ---
Subjective Subjective Remarks Afebrile overnight. Patient resting in bed in nad. Son at bedside. No complaints. Objective Data Date Time Temp Pulse Resp B/P Pulse Ox O2 Delivery O2 Flow Rate FiO2 04/04/17 08:00 98.0 56 18 191/79 98 04/04/17 04:00 99.6 55 18 167/77 96 04/04/17 04:00 52 04/04/17 01:03 54 04/04/17 00:00 98.9 59 19 146/65 96 04/03/17 21:15 Room Air 04/03/17 20:01 58 04/03/17 20:00 99.0 66 20 156/70 97 04/03/17 16:37 55 04/03/17 16:22 98.5 56 20 147/67 97 04/04/17 04/04/17 04/04/17 07:00 15:00 23:00 Intake Total 240 ml Output Total 300 ml Balance -60 ml Result Diagram: 04/03/17 0802 04/04/17 0854 Laboratory Results Laboratory Tests Test 04/04/17 08:54 Sodium Level 135 MEQ/L Potassium Level 3.9 MEQ/L Chloride Level 98 MEQ/L Carbon Dioxide Level 25.8 MEQ/L Anion Gap 11 MEQ/L Blood Urea Nitrogen 48 MG/DL Creatinine 5.97 MG/DL Estimat Glomerular Filtration 10 ML/MIN Rate Random Glucose 92 MG/DL Calcium Level 7.8 MG/DL Administered Medications Medications (Trade) Dose Ordered Sig/Nasreen Route PRN Reason Start Time Stop Time Status Last Admin Dose Admin Sodium Chloride (NS Flush) 2 ml BID IV FLUSH 03/20/17 21:00 04/04/17 09:05 Acetaminophen/ Hydrocodone Bitart ([place] 5-325 Mg) 1 tab Q4H PRN PO PAIN SCALE 1 TO 5 03/20/17 18:15 03/30/17 09:12 Morphine Sulfate (Morphine Inj) 2 mg Q2H PRN IV PUSH PAIN 6-10 03/20/17 18:30 03/26/17 02:06 Ondansetron HCl (Zofran Inj) 4 mg Q6H PRN IV NAUSEA OR VOMITING 03/20/17 18:15 03/23/17 17:52 Miscellaneous Information 1 Q361D XX 03/20/17 18:15 03/20/17 21:46 Chlorhexidine Gluconate (Chlorhexidine 2% Cloth) Taper DAILY@04 TOP 03/21/17 04:00 03/17/18 03:59 04/02/17 04:00 Senna/Docusate Sodium (Negin-Colace) 1 tab BID PO 03/20/17 21:00 04/04/17 09:00 Magnesium Hydroxide (Milk Of Magnesia Liq) 30 ml Q12H PRN PO MILD - MODERATE CONSTIPATION 03/20/17 18:15 04/04/17 09:04 Lactulose (Lactulose Liq) 30 ml DAILY PRN PO SEVERE CONSITIPATION 03/20/17 18:15 04/03/17 17:28 Calcium Acetate 667 mg 667 mg TID PO 03/21/17 18:00 04/04/17 09:00 Sodium Chloride 1,000 ml @ 0 mls/hr Q0M PRN IV For Prime & Rinse Back 03/22/17 11:58 03/25/17 14:07 Sodium Chloride (NS 1000 ml Inj) 1,000 ml @ 200 mls/hr Q5H PRN IV WITH DIALYSIS 03/22/17 11:58 04/02/17 11:01 Heparin Sodium (Porcine) (Heparin Inj) UNSCH PRN .XX WITH DIALYSIS 03/22/17 12:00 04/02/17 11:01 Gentamicin Sulfate (Gentamicin (Dialysis) Inj) 20 mg UNSCH PRN IV WITH DIALYSIS 03/22/17 12:00 04/02/17 11:01 Epoetin Hermes (Epogen Inj) 10,000 units UNSCH PRN IV WITH DIALYSIS 03/22/17 12:00 03/25/17 14:06 Cholecalciferol 5000 units 5,000 units DAILY PO 03/23/17 09:00 04/04/17 09:00 Sodium Chloride (NS Irr Bag) 3,000 ml @ 125.5 mls/ hr Q24H IRRIGATION 03/23/17 17:00 03/31/17 17:00 Thiamine HCl (Vitamin B1) 100 mg DAILY PO 03/26/17 11:45 04/04/17 09:00 Lorazepam (Ativan) 1 mg Q4H PRN PO CIWA 8 - 10 03/26/17 11:30 03/27/17 10:52 Lorazepam (Ativan) 2 mg Q2H PRN PO CIWA 11-14 03/26/17 11:30 03/28/17 00:15 Pantoprazole Sodium (Protonix) 40 mg DAILY PO 04/03/17 09:00 04/04/17 09:00 Objective Remarks GENERAL: Middle aged male upright in bed in nad. SKIN: Warm and dry. perma-cath site clean, right chest wall. HEAD: Normocephalic. EYES: No injection or drainage. NECK: Supple, trachea midline. CARDIOVASCULAR: +S1/S2 RESPIRATORY: Breath sounds equal bilaterally. No accessory muscle use. GASTROINTESTINAL: Abdomen soft, non-tender, nondistended. EXTREMITIES: No cyanosis NEUROLOGICAL: aox3. normal speech. Assessment/Plan Problem List: (1) Bladder mass Status: Acute Plan: 04/04: await pathology. will review palliative treatments available to patient once pathology returns. PSA elevated CT ab/pelvis: + bladder mass with bony mets. CT chest: bilateral pleural effusions. + bony mets to thoracic vertebra, ribs, left scapula (2) Anemia Status: Acute Plan: --transfuse as needed --hemoccult negative --keren negative --no sign of hemolysis. --slightly elevated retic count, no sign of iron deficiency Assessment 61y/o male admitted with ARF, CT shows possible bladder mass and bony mets + elevated PSA. Attending Statement Denies any new complaint Wants to go home Hemodialysis is on hold Pathology report is still pending Okay to discharge from my standpoint We will follow Problem Qualifiers (1) Anemia: Qualified Code: D64.9 - Anemia, unspecified type Raquel Stephens Apr 04, 2017 12:59 Cam Arceo MD Apr 04, 2017 22:50
[2017-04-04] MEDS: IRR IRRIGATION SCH (17:00)
[2017-04-04] MEDS: SODIUM CHLORIDE 0.9% IRRIGATION SCH (17:00)
[2017-04-05] VITALS (10 sets, daily range): BP systolic 159–183; BP diastolic 73–84; PULSE 51–62; RESP 16–20; TEMP 96.4–99; O2SAT 94–99
[2017-04-05] MEDS: CHLORHEXIDINE GLUCONATE 2 % 1 PACK (2 CLOTHS) TOP SCH (04:00)
[2017-04-05] MEDS: CALCIUM ACETATE 667 MG CAP PO SCH ×3 (08:09→18:34)
[2017-04-05] MEDS: CHOLECALCIFEROL (VIT D3) 5000 UNIT CAP PO SCH (08:09)
[2017-04-05] MEDS: THIAMINE HCL 100 MG TAB PO SCH (08:09)
[2017-04-05] MEDS: PANTOPRAZOLE SOD 40 MG DELAYED RELEASE TAB PO SCH (08:10)
[2017-04-05] MEDS: DOCUSATE SODIUM 50 MG/SENNA 8.6 MG TAB PO SCH ×2 (08:10→21:00)
[2017-04-05] MEDS: SODIUM CHLORIDE 0.9% FLUSH 10 ML FLUSH IV FLUSH SCH ×2 (08:10→21:14)
[2017-04-05] MEDS: METOPROLOL TARTRATE 25 MG TAB PO SCH ×2 (08:13→21:12)
--- NOTE | 2017-04-05 09:24 | RADRPT ---
EXAM DATE/TIME: 04/05/2017 09:06 [facility] COMPARISON: CT ABDOMEN & PELVIS W/O CONTRAST, March 21, 2017, 13:03. INDICATIONS : Hydronephrosis ORAL CONTRAST: No oral contrast ingested. RADIATION DOSE: 6.38 CTDIvol (mGy) MEDICAL HISTORY : None SURGICAL HISTORY : Inguinal hernia repair. ENCOUNTER: Initial ACUITY: 1 day PAIN SCALE: 0/10 LOCATION: Bilateral flank TECHNIQUE: Volumetric scanning of the abdomen was performed. Using automated exposure control and adjustment of the mA and/or kV according to patient size, radiation dose was kept as low as reasonably achievable to obtain optimal diagnostic quality images. DICOM format image data is available electronically for review and comparison. FINDINGS: LOWER LUNGS: Small to moderate bilateral pleural effusions . LIVER: Homogeneous density without lesion. There is no dilation of the biliary tree. No calcified gallston es. SPLEEN: Normal size without lesion. PANCREAS: Within normal limits. KIDNEYS: Interval placement of double-J ureteral stents. Left ureteral stent is well-positioned in the renal p lisa. The right renal stent has been retracted slightly into the proximal ureter. Significantly impr trudy hydronephrosis with mild residual right and mild to moderate residual left hydronephrosis. ADRENAL GLANDS: Within normal limits. AORTA/RETROPERITONEAL: No significant aortic aneurysm. Multiple small retroperitoneal nodes are again noted. BOWEL/MESENTERY: Visualized portions of the bowel demonstrate no gross abnormality. MUSCULOSKELETAL: Redemonstration of blastic bony metastasis in the left ilium and lumbar spine. CONCLUSION: 1. Interval placement of double-J bilateral ureteral stents with significant interval improvement of previously noted severe bilateral hydronephrosis. Residual mild right and [id number] left hydro nephrosis, as above. 2. Redemonstration of blastic osseous metastatic disease. 3. Stable small to moderate bilateral pleural effusions. Ferdinand Fisher MD on April 05, 2017 at 9:16 Board Certified Radiologist. This report was verified electronically.
--- NOTE | 2017-04-05 10:18 | HHI.PR ---
Subjective Patient symptoms today Pt seen and examined. CT scan showing improvement of bilateral hydronephrosis. Pt c/o feeling weak and does not want dialysis today. Objective Vital Signs Vital Signs Date Time Temp Pulse Resp B/P Pulse Ox O2 Delivery O2 Flow Rate FiO2 04/05/17 09:09 Room Air 04/05/17 09:09 57 04/05/17 08:00 98.7 57 183/84 95 04/05/17 05:03 98.9 58 18 176/78 94 04/05/17 04:00 51 04/05/17 00:21 99.0 52 18 175/79 96 04/05/17 00:00 56 04/04/17 20:38 99.1 56 18 161/73 98 04/04/17 20:33 Room Air 04/04/17 20:00 55 04/04/17 16:04 55 04/04/17 16:00 98.0 55 18 162/70 100 04/04/17 12:49 50 04/04/17 12:00 98.2 50 16 161/70 98 Result Diagram: 04/03/17 0802 04/04/17 0854 Imaging Last [address] 04/05/17 0000 Signed Impressions: Service Date/Time: Wednesday, April 05, 2017 09:06 - CONCLUSION: 1. Interval placement of double-J bilateral ureteral stents with significant interval improvement of previously noted severe bilateral hydronephrosis. Residual mild right and [id number] left hydronephrosis, as above. 2. Redemonstration of blastic osseous metastatic disease. 3. Stable small to moderate bilateral pleural effusions. Ferdinand Fisher MD Objective Remarks Abd:soft, tender over bladder Ext:2+ edema 03/23 Abd: soft,nt,nd Carson: blood tinged on Amicar CBI 03/[address] draining clear urine Abdomen soft, nondistended, nontender 04/04 Abd:soft,nt,nd Carson: urine clear; off Amicar 04/05 Abd:soft,nt,nd Urine clear Moving bowels Medications and IVs Current Medications Medications (Trade) Dose Ordered Sig/Nasreen Route Start Time Stop Time Status Last Admin (NS Flush) 2 ml UNSCH PRN IV FLUSH 03/20/17 18:15 (NS Flush) 2 ml BID IV FLUSH 03/20/17 21:00 04/05/17 08:10 (Tylenol) 650 mg Q6H PRN PO 03/20/17 18:15 ([place] 5-325 Mg) 1 tab Q4H PRN PO 03/20/17 18:15 03/30/17 09:12 (Morphine Inj) 2 mg Q2H PRN IV PUSH 03/20/17 18:30 03/26/17 02:06 (Zofran Inj) 4 mg Q6H PRN IV 03/20/17 18:15 03/23/17 17:52 Miscellaneous Information 1 Q361D XX 03/20/17 18:15 03/20/17 21:46 (Chlorhexidine 2% Cloth) Taper DAILY@04 TOP 03/21/17 04:00 03/17/18 03:59 04/02/17 04:00 (Chlorhexidine 2% Cloth) 3 pack UNSCH PRN TOP 03/20/17 18:15 (Negin-Colace) 1 tab BID PO 03/20/17 21:00 04/05/17 08:10 (Milk Of Magnesia Liq) 30 ml Q12H PRN PO 03/20/17 18:15 04/04/17 09:04 (Senokot) 17.2 mg Q12H PRN PO 03/20/17 18:15 (Dulcolax Supp) 10 mg DAILY PRN RECTAL 03/20/17 18:15 04/05/17 08:12 (Lactulose Liq) 30 ml DAILY PRN PO 03/20/17 18:15 04/03/17 17:28 Calcium Acetate 667 mg 667 mg TID PO 03/21/17 18:00 04/05/17 08:09 Sodium Chloride 1,000 ml @ 0 mls/hr Q0M PRN IV 03/22/17 11:58 03/25/17 14:07 Sodium Chloride 1,000 ml @ 200 mls/hr Q5H PRN IV 03/22/17 11:58 04/02/17 11:01 (NS 1000 ml Inj) 1,000 ml @ 0 mls/hr Q0M PRN IV 03/22/17 11:58 (Mannitol Inj) 12.5 gm UNSCH PRN IV 03/22/17 12:00 (Albumin 25% Inj) 25 gm UNSCH PRN IV 03/22/17 12:00 (NS Flush) 5 ml UNSCH PRN IV FLUSH 03/22/17 12:00 (Heparin Inj) UNSCH PRN .XX 03/22/17 12:00 04/02/17 11:01 (Gentamicin (Dialysis) Inj) 20 mg UNSCH PRN IV 03/22/17 12:00 04/02/17 11:01 (Zofran Inj) 4 mg UNSCH PRN IV 03/22/17 12:00 (Tylenol) 650 mg UNSCH PRN PO 03/22/17 12:00 (Benadryl) 25 mg UNSCH PRN PO 03/22/17 12:00 (Nitrostat Sl) 0.4 mg UNSCH PRN SL 03/22/17 12:00 (Catapres) 0.1 mg UNSCH PRN PO 03/22/17 12:00 (Epogen Inj) 10,000 units UNSCH PRN IV 03/22/17 12:00 03/25/17 14:06 (Gelfoam 12 Mm/7 Mm Top) 1 foam UNSCH PRN TOP 03/22/17 12:00 Cholecalciferol 5000 units 5,000 units DAILY PO 03/23/17 09:00 04/05/17 08:09 (NS Irr Bag) 3,000 ml @ 125.5 mls/ hr Q24H IRRIGATION 03/23/17 17:00 03/31/17 17:00 (Narcan Inj) 0.4 mg Q2M PRN IV PUSH 03/23/17 17:00 (Vitamin B1) 100 mg DAILY PO 03/26/17 11:45 04/05/17 08:09 (Romazicon Inj) 0.2 mg Q1M PRN IV PUSH 03/26/17 11:30 (Ativan) 1 mg Q4H PRN PO 03/26/17 11:30 03/27/17 10:52 (Ativan Inj) 1 mg Q4H PRN IV PUSH 03/26/17 11:30 (Ativan) 2 mg Q2H PRN PO 03/26/17 11:30 03/28/17 00:15 (Ativan Inj) 2 mg Q2H PRN IV PUSH 03/26/17 11:30 (Ativan Inj) 2 mg Q1H PRN IV PUSH 03/26/17 11:30 (Ativan Inj) 2 mg Q15M PRN IV PUSH 03/26/17 11:30 (Haldol Inj) 2 mg Q15M PRN IM 03/26/17 11:30 (NS Flush) UNSCH PRN IVF 03/29/17 10:00 (Heparin Inj) UNSCH PRN IV FLUSH 03/29/17 10:00 (Protonix) 40 mg DAILY PO 04/03/17 09:00 04/05/17 08:10 (Norvasc) 10 mg DAILY PO 04/05/17 09:00 (Lopressor) 12.5 mg Q12HR PO 04/04/17 21:00 04/04/17 20:29 (Pill Splitter) 1 ea UNSCH PRN OTHER 04/04/17 11:00 Assessment and Plan Assessment and Plan 61-year-old male with acute renal failure and evidence of bladder outlet obstruction with elevated PSA and family history of prostate cancer. Maintain Carson catheter and monitor for postobstructive diuresis. Holding replacement fluids at present due to evidence of pulmonary edema on chest x-ray. CT scan ordered for later today. We'll start Flomax in the future once his creatinine starts to baseline. Once Carson catheter has been removed and he is voiding we'll need to repeat PSA at that time. We'll follow with you. Thank you for the consult and allowing me to participate in the care of this patient. 03/22 61-year-old male with acute renal failure and evidence of bladder outlet obstruction with elevated PSA and family history of prostate cancer with blastic lesions of pelvis on CT scan For cysto/clot evacuation/RPG's with possible stents and bladder bx with fulguration if necessary in OR today NPO Risks and benefits discussed with pt and daughter at bedside. 03/23 61-year-old male with acute renal failure and evidence of bladder outlet obstruction with elevated PSA and family history of prostate cancer with blastic lesions of pelvis on CT scan s/p cystoscopy with clot evacuation and b/ l JJ stent insertion Continue Amicar CBI Irrigate prn Will need PNBx in the future after ARF has resolved and overall condition is improved. Maybe done as outpt. 03/28 Resolved gross hematuria Maintain Carson catheter to gravity drainage Will eventually require transrectal ultrasound and prostate needle biopsy to confirm diagnosis of prostate cancer, this may be performed as an outpatient. 04/04 61 y.o male with ARF/gross hematuria/elevated PSA with probable CaP with h/o left hydronephrosis after b/l stent insertion Will obtain CT scan to evaluate resolution of left hydronephrosis PNBx as outpt. 04/05 61 y.o male with ARF/gross hematuria/elevated PSA with probable CaP with h/o left hydronephrosis after b/l stent insertion CT scan showing resolution of bilateral hydronephrosis with bilateral JJ stent insertion with carson in place Gross hematuria has resolved-off Amicar Elevated PSA: PNBX in the future. Zion Fine DO Apr 05, 2017 10:18
--- NOTE | 2017-04-05 10:58 | HHI.PR ---
Subjective Remarks Follow-up bladder mass/obstructive uropathy/renal failure requiring hemodialysis 04/05/17-patient seen and examined him a complaint of constipation. Gross hematuria improving. Refusing hemodialysis today. Afebrile. BP elevated Objective Vitals Vital Signs Date Time Temp Pulse Resp B/P Pulse Ox O2 Delivery O2 Flow Rate FiO2 04/05/17 09:09 Room Air 04/05/17 09:09 57 04/05/17 08:00 98.7 57 183/84 95 04/05/17 05:03 98.9 58 18 176/78 94 04/05/17 04:00 51 04/05/17 00:21 99.0 52 18 175/79 96 04/05/17 00:00 56 04/04/17 20:38 99.1 56 18 161/73 98 04/04/17 20:33 Room Air 04/04/17 20:00 55 04/04/17 16:04 55 04/04/17 16:00 98.0 55 18 162/70 100 04/04/17 12:49 50 04/04/17 12:00 98.2 50 16 161/70 98 I/O 04/04/17 04/04/17 04/04/17 04/05/17 04/05/17 04/05/17 06:59 14:59 22:59 06:59 14:59 22:59 Intake Total 240 ml 720 ml Output Total 300 ml 500 ml Balance -60 ml 220 ml Intake Oral 240 ml 720 ml Output Urine Total 300 ml 500 ml Result Diagram: 04/03/17 0802 04/04/17 0854 Imaging Last Impressions Abdomen CT 04/05/17 0000 Signed Impressions: Service Date/Time: Wednesday, April 05, 2017 09:06 - CONCLUSION: 1. Interval placement of double-J bilateral ureteral stents with significant interval improvement of previously noted severe bilateral hydronephrosis. Residual mild right and [id number] left hydronephrosis, as above. 2. Redemonstration of blastic osseous metastatic disease. 3. Stable small to moderate bilateral pleural effusions. Ferdinand Fisher MD Bone Biopsy CT 03/31/17 1346 Signed Impressions: Service Date/Time: March 14:07 - CONCLUSION: Uncomplicated CT guided biopsy. David Peña MD Upper Extremity Ultrasound 03/29/17 Signed Impressions: Service Date/Time: Wednesday, March 29, 2017 08:43 - CONCLUSION: Normal examination. Art John MD Catheter Placement X-Ray 03/29/17 Signed Impressions: Service Date/Time: Wednesday, March 29, 2017 08:50 - CONCLUSION: Uncomplicated PermaCath placement as above. Ferdinand Fisher MD Renal Ultrasound 03/25/17 Signed Impressions: Service Date/Time: Saturday, March 25, 2017 22:14 - CONCLUSION: Marked hydronephrosis, Grade IV left kidney. There is no hydronephrosis on the right. Markedly thickened bladder wall. Damien Peña MD FACR Chest X-Ray 03/22/17 Signed Impressions: Service Date/Time: Wednesday, March 22, 2017 16:05 - CONCLUSION: 1. Diffuse increased interstitial markings likely representing pulmonary edema. There is prominence of the central pulmonary vessels. 2. Hazy density bases with silhouetting hemidiaphragms from superimposed areas of consolidation/ atelectasis and effusions. Art Olivera MD Chest CT 03/21/17 Signed Impressions: Service Date/Time: Tuesday, March 21, 2017 13:03 - CONCLUSION: 1. Moderate to large bilateral pleural effusions with associated compressive atelectasis in the lower lobes. 2. Bilateral patchy somewhat nodular groundglass opacities with upper lobe predominance likely related to positive fluid balance. 3. Diffuse sclerotic metastasis to the thoracic vertebra, ribs, and left scapula. 4. Bilateral moderate to severe hydronephrosis, incompletely imaged on this exam. This is similar to yesterday's ultrasound exam. 5. 3.6 cm coarsely calcified left thyroid nodule. This can be further evaluated with thyroid ultrasound as indicated. Ferdinand Fisher MD Abdomen/Pelvis CT 03/21/17 Signed Impressions: Service Date/Time: Tuesday, March 21, 2017 13:03 - CONCLUSION: Large bladder mass with bone metastases. Small bilateral pleural effusions. Minimal retroperitoneal adenopathy. Damien Peña MD FACR Lower Extremity Ultrasound 03/20/17 Signed Impressions: Service Date/Time: Monday, March 20, 2017 17:30 - CONCLUSION: Normal examination. Sebastián Greer MD Objective Remarks GENERAL: NAD SKIN: Warm and dry. HEAD: Normocephalic. EYES: No scleral icterus. No injection or drainage. NECK: Supple, trachea midline. No JVD or lymphadenopathy. CARDIOVASCULAR: Regular rate and rhythm without murmurs, gallops, or rubs. RESPIRATORY: Breath sounds equal bilaterally. No accessory muscle use. GASTROINTESTINAL: Abdomen soft, non-tender, nondistended. MUSCULOSKELETAL: No cyanosis, or edema. BACK: Nontender without obvious deformity. No CVA tenderness. Procedures 03/31- CT guided biospy right ilium 03/29- permacath placement A/P Problem List: (1) obstructive uropathy, renal failure Status: Acute (2) Bladder mass ICD Code: N32.89 Status: Acute (3) apparent bony metastases, elevated PSA, suspected prostate cancer Status: Acute (4) acute renal failure, on dialysis Status: Acute (5) hypertension Status: Acute (6) Anemia due to acute blood loss ICD Code: D62 Status: Acute Assessment and Plan 61-year-old man with Bladder mass Acute kidney injury/ CKD Urinary obstruction Urinary bladder clot s/p cystoscopy Hematuria Status post CT-guided biopsy of bladder mass and awaiting pathology report Underwent cystoscopy with ureteral stenting on 03/[address] Fine. Currently on hemodialysis since 03/22 however patient is refusing HD today Repeat cystoscopy with fulguration of bleeding sites and urinary bladder on 03/24 CT abdomen/pelvis 04/05/17 showing resolution of bilateral hydronephrosis with bilateral JJ stent insertion with Pollock in place Off AMICAR as well as CBI Appreciate input from urology, nephrology, oncology, palliative care medicine Hypertension Pulmonary edema Continue to Hold ASA /anticoagulants at this time as no symptoms of ACS and patient has symptomatic anemia. Currently on Metoprolol and Norvasc. Still Not a candidate for ETHEL inhibitor due to acute kidney injury. Anemia of acute blood loss Leukocytosis - lymphocytosis. Transfused 8 units of PRBCs since admission Anemia secondary to hematuria and possible bone metastases. Appreciate input from Hematology PROPH: Protonix 40 g IV daily for stress ulcer prophylaxis. SCDs for DVT prophylaxis. Hold on pharmacologic DVT prophylaxis due to severe anemia. Discharge Planning Discharge home with home health care when clear by nephrology as well as urology Rene Santiago MD Apr 05, 2017 10:57
--- NOTE | 2017-04-05 11:36 | PD.ONC.PN ---
Subjective Subjective Remarks Afebrile overnight. Patient resting in bed with daughter in law and grandchildren at bedside. States he refused dialysis today, will wait and get it tomorrow. Objective Data Date Time Temp Pulse Resp B/P Pulse Ox O2 Delivery O2 Flow Rate FiO2 04/05/17 09:09 Room Air 04/05/17 09:09 57 04/05/17 08:00 98.7 57 183/84 95 04/05/17 05:03 98.9 58 18 176/78 94 04/05/17 04:00 51 04/05/17 00:21 99.0 52 18 175/79 96 04/05/17 00:00 56 04/04/17 20:38 99.1 56 18 161/73 98 04/04/17 20:33 Room Air 04/04/17 20:00 55 04/04/17 16:04 55 04/04/17 16:00 98.0 55 18 162/70 100 04/04/17 12:49 50 04/04/17 12:00 98.2 50 16 161/70 98 Result Diagram: 04/03/17 0802 04/04/17 0854 Imaging Studies Last [address] 04/05/17 0000 Signed Impressions: Service Date/Time: Wednesday, April 05, 2017 09:06 - CONCLUSION: 1. Interval placement of double-J bilateral ureteral stents with significant interval improvement of previously noted severe bilateral hydronephrosis. Residual mild right and jbaj-nz-rtoxwaen left hydronephrosis, as above. 2. Redemonstration of blastic osseous metastatic disease. 3. Stable small to moderate bilateral pleural effusions. Ferdinand Fisher MD Administered Medications Medications (Trade) Dose Ordered Sig/Nasreen Route PRN Reason Start Time Stop Time Status Last Admin Dose Admin Sodium Chloride (NS Flush) 2 ml BID IV FLUSH 03/20/17 21:00 04/05/17 08:10 Acetaminophen/ Hydrocodone Bitart ([place] 5-325 Mg) 1 tab Q4H PRN PO PAIN SCALE 1 TO 5 03/20/17 18:15 03/30/17 09:12 Morphine Sulfate (Morphine Inj) 2 mg Q2H PRN IV PUSH PAIN 6-10 03/20/17 18:30 03/26/17 02:06 Ondansetron HCl (Zofran Inj) 4 mg Q6H PRN IV NAUSEA OR VOMITING 03/20/17 18:15 03/23/17 17:52 Miscellaneous Information 1 Q361D XX 03/20/17 18:15 03/20/17 21:46 Chlorhexidine Gluconate (Chlorhexidine 2% Cloth) Taper DAILY@04 TOP 03/21/17 04:00 03/17/18 03:59 04/02/17 04:00 Senna/Docusate Sodium (Negin-Colace) 1 tab BID PO 03/20/17 21:00 04/05/17 08:10 Magnesium Hydroxide (Milk Of Magnesia Liq) 30 ml Q12H PRN PO MILD - MODERATE CONSTIPATION 03/20/17 18:15 04/04/17 09:04 Bisacodyl (Dulcolax Supp) 10 mg DAILY PRN RECTAL SEVERE CONSITIPATION 03/20/17 18:15 04/05/17 08:12 Lactulose (Lactulose Liq) 30 ml DAILY PRN PO SEVERE CONSITIPATION 03/20/17 18:15 04/03/17 17:28 Calcium Acetate 667 mg 667 mg TID PO 03/21/17 18:00 04/05/17 08:09 Sodium Chloride 1,000 ml @ 0 mls/hr Q0M PRN IV For Prime & Rinse Back 03/22/17 11:58 03/25/17 14:07 Sodium Chloride (NS 1000 ml Inj) 1,000 ml @ 200 mls/hr Q5H PRN IV WITH DIALYSIS 03/22/17 11:58 04/02/17 11:01 Heparin Sodium (Porcine) (Heparin Inj) UNSCH PRN .XX WITH DIALYSIS 03/22/17 12:00 04/02/17 11:01 Gentamicin Sulfate (Gentamicin (Dialysis) Inj) 20 mg UNSCH PRN IV WITH DIALYSIS 03/22/17 12:00 04/02/17 11:01 Epoetin Hermes (Epogen Inj) 10,000 units UNSCH PRN IV WITH DIALYSIS 03/22/17 12:00 03/25/17 14:06 Cholecalciferol 5000 units 5,000 units DAILY PO 03/23/17 09:00 04/05/17 08:09 Sodium Chloride (NS Irr Bag) 3,000 ml @ 125.5 mls/ hr Q24H IRRIGATION 03/23/17 17:00 03/31/17 17:00 Thiamine HCl (Vitamin B1) 100 mg DAILY PO 03/26/17 11:45 04/05/17 08:09 Lorazepam (Ativan) 1 mg Q4H PRN PO CIWA 8 - 10 03/26/17 11:30 03/27/17 10:52 Lorazepam (Ativan) 2 mg Q2H PRN PO CIWA 11-14 03/26/17 11:30 03/28/17 00:15 Pantoprazole Sodium (Protonix) 40 mg DAILY PO 04/03/17 09:00 04/05/17 08:10 Metoprolol Tartrate (Lopressor) 12.5 mg Q12HR PO 04/04/17 21:00 04/04/17 20:29 Objective Remarks GENERAL: Middle aged male sitting up in bed reading the paper SKIN: Warm and dry. perma-cath, right chest wall. HEAD: Normocephalic. EYES: No injection or drainage. NECK: Supple, trachea midline. CARDIOVASCULAR: +S1/S2 RESPIRATORY: Breath sounds equal bilaterally. No accessory muscle use. GASTROINTESTINAL: Abdomen soft, non-tender, nondistended. EXTREMITIES: No cyanosis NEUROLOGICAL: awake and alert, normal speech. Assessment/Plan Problem List: (1) Bladder mass Status: Acute Plan: 04/05: pathology pending. PSA elevated CT ab/pelvis: + bladder mass with bony mets. CT chest: bilateral pleural effusions. + bony mets to thoracic vertebra, ribs, left scapula (2) Anemia Status: Acute Plan: --transfuse as needed --hemoccult negative --keren negative --no sign of hemolysis. --slightly elevated retic count, no sign of iron deficiency Assessment 61y/o male admitted with ARF, CT shows possible bladder mass and bony mets + elevated PSA. Attending Statement Offer no new complaints await biopsy results Prognosis remains poor. We will follow Problem Qualifiers (1) Anemia: Qualified Code: D64.9 - Anemia, unspecified type Raquel Stephens Apr 05, 2017 11:36 Cam Arceo MD Apr 05, 2017 22:06
--- NOTE | 2017-04-05 12:05 | HHI.NPPN ---
Subjective History of Present Illness 61 year old with ARF no recovery possible prostate Ca ESRD Review of Systems General Constitutional: Fatigue Objective Data Data 04/04/17 04/05/17 19:00 07:00 Intake Total 720 ml Output Total 500 ml Balance 220 ml Intake Oral 720 ml Output Urine Total 500 ml Vital Signs Date Time Temp Pulse Resp B/P Pulse Ox O2 Delivery O2 Flow Rate FiO2 04/05/17 09:09 Room Air 04/05/17 09:09 57 04/05/17 08:00 98.7 57 183/84 95 04/05/17 05:03 98.9 58 18 176/78 94 04/05/17 04:00 51 04/05/17 00:21 99.0 52 18 175/79 96 04/05/17 00:00 56 04/04/17 20:38 99.1 56 18 161/73 98 04/04/17 20:33 Room Air 04/04/17 20:00 55 04/04/17 16:04 55 04/04/17 16:00 98.0 55 18 162/70 100 04/04/17 12:49 50 -: 04/03/17 0802 04/04/17 0854 Physical Exam General Appearance: Well Developed, Well Nourished Pulmonary Resp Exam: Clear Bilaterally, Breath Sounds Equal Cardiology CV Exam: Regular, Normal Sinus Rhythm Gastrointestinal/Abdomen GI Exam: Soft, Non-Tender, Bowel Sounds Present Extremeties Extremities Exam: Moderate Edema Assessment/Plan Problem List: (1) ESRD (end stage renal disease) on dialysis Plan: NO RECOVERY from ARF long standing Obstructive uropathy lead to irreversible damage discussed dialysis he refused for today has agreed for tomorrow notify [facility] may need an [facility]F placement (2) Acute renal failure Plan: He had bone biopsy await results HD yesterday post PermCath follow BMP no recovery (3) Uropathy, obstructive Plan: Severe followed by urology (4) Anemia Plan: on epogen (5) hypertension Plan: on Norvasc 10 mg/ Metoprolol Problem Qualifiers (1) Anemia: Qualified Code: D64.9 - Anemia, unspecified type Karena Duval MD Apr 05, 2017 12:05
--- NOTE | 2017-04-05 15:27 | PD.VS.CON ---
History of Present Illness Chief Complaint: AVF Evaluation Consult Requested by: Dr. Duval History of Present Illness 61 yo WM with PMH of hypertension (not on medical therapy), daily tobacco/ alcohol use, not followed by a primary care physician Pt presented to [facility] emergency department [place] with a chief complaint of shortness of breath and lower extremity swelling. He has had a poor appetite for the last couple of months and states that he has lost 8-12 pounds over the last 2 months. Upon presentation to the ED he was noted to be in renal failure with BUN 189 and Creatinine 21. BNP is 3988. Troponin 0.2. 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 He had diabetes Mother of complications of emphysema at age 67. He denies family history of cardiac or renal disease (Trice Lindsay) Home Medications No Active Prescriptions or Reported Meds Coded Allergies: No Known Allergies (Verified , 03/20/17) Physical Exam Vitals/I&O Date Time Temp Pulse Resp B/P Pulse Ox O2 Delivery O2 Flow Rate FiO2 04/05/17 12:18 57 04/05/17 12:00 96.4 59 18 159/74 98 04/05/17 09:09 Room Air 04/05/17 09:09 57 04/05/17 08:00 98.7 57 183/84 95 04/05/17 05:03 98.9 58 18 176/78 94 04/05/17 04:00 51 04/05/17 00:21 99.0 52 18 175/79 96 04/05/17 00:00 56 04/04/17 20:38 99.1 56 18 161/73 98 04/04/17 20:33 Room Air 04/04/17 20:00 55 04/04/17 16:04 55 04/04/17 16:00 98.0 55 18 162/70 100 Neuro: alert and oriented Heart: + S1,+ S2 RRR Lungs: CTA Vascular: R Radial pulse palpable 2+ L Radial pulse palpable 2+ (Trice Lindsay) Last [address] 04/05/17 0000 Signed Impressions: Service Date/Time: Wednesday, April 05, 2017 09:06 - CONCLUSION: 1. Interval placement of double-J bilateral ureteral stents with significant interval improvement of previously noted severe bilateral hydronephrosis. Residual mild right and btfp-ja-rldptjjt left hydronephrosis, as above. 2. Redemonstration of blastic osseous metastatic disease. 3. Stable small to moderate bilateral pleural effusions. Ferdinand Fisher MD (Trice Lindsay) Assessment and Plan Assessment: (1) Renal failure Status: Acute Plan Mr. Ross is a 61/M Pt with ESRD who has recently required HD. Pt is currently receiving HD through a PermCath (right side of chest). We were consulted for an AVF evaluation Pt awaits biopsy results (possible metastatic cancer) Plan Explained and reviewed AVF procedure Risks and Benefits of procedure reviewed All questions were answered Will awaits biopsy results Will arrange Out Patient F/U Trice JUAREZ [facility] [phone] (Trice Lindsay) Plan I agree with above a/p. Will speak with patient in office so we can look at risks of surgery and life expectancy before moving forward with a surgical procedure. Raheel Bailon DO, FACS (Raheel Bailon DO) Problem Qualifiers (1) Renal failure: Qualified Code: N17.9 - Acute renal failure, unspecified acute renal failure type Trice Lindsay Apr 05, 2017 15:05 Raheel Bailon DO Apr 06, 2017 18:26
[2017-04-05] MEDS: SODIUM CHLORIDE 0.9% IRRIGATION SCH (17:00)
[2017-04-05] MEDS: IRR IRRIGATION SCH (17:00)
[2017-04-06] VITALS: BP 157/73; PULSE 54; RESP 16; TEMP 98.6; O2SAT 98
[2017-04-06] MEDS: CHLORHEXIDINE GLUCONATE 2 % 1 PACK (2 CLOTHS) TOP SCH (03:22)
[2017-04-06 04:00] VITALS: BP 156/72; PULSE 57; RESP 16; TEMP 98.4; O2SAT 95
[2017-04-06 07:37] LABS: AUTOMATED NEUTROPHIL # 7.1 TH/MM3 (1.8-7.7); BASOPHIL # 0.1 TH/MM3 (0-0.2); BASOPHIL % 1.2 % (0.0-2.0); EOSINOPHIL # 0.6 TH/MM3 (0-0.4); EOSINOPHIL % 5.2 % (0.0-4.0); HEMO FLAGS DIFF FINAL; LYMPH % 29.4 % (9.0-44.0); LYMPHOCYTE # 3.6 TH/MM3 (1.0-4.8); MEAN CELL VOLUME 88.9 FL (80.0-100.0); MEAN CORPUSCULAR HEMOGLOBIN 29.5 PG (27.0-34.0); MEAN CORPUSCULAR HGB CONC 33.2 % (32.0-36.0); MONO % 6.7 % (0.0-8.0); NEUT % 57.5 % (16.0-70.0); PLATELET COUNT 220 TH/MM3 (150-450); RED BLOOD COUNT 3.03 MIL/MM3 (4.50-5.90); RED CELL DISTRIBUTION WIDTH 16.6 % (11.6-17.2); WHITE BLOOD COUNT 12.4 TH/MM3 (4.0-11.0)
[2017-04-06 08:00] VITALS: BP 160/72; PULSE 55; RESP 20; TEMP 98.6; O2SAT 92
[2017-04-06] MEDS: CALCIUM ACETATE 667 MG CAP PO SCH ×3 (08:03→17:44)
[2017-04-06] MEDS: CHOLECALCIFEROL (VIT D3) 5000 UNIT CAP PO SCH (08:03)
[2017-04-06] MEDS: PANTOPRAZOLE SOD 40 MG DELAYED RELEASE TAB PO SCH (08:04)
[2017-04-06] MEDS: THIAMINE HCL 100 MG TAB PO SCH (08:04)
[2017-04-06] MEDS: SODIUM CHLORIDE 0.9% FLUSH 10 ML FLUSH IV FLUSH SCH ×2 (08:04→21:05)
[2017-04-06] MEDS: DOCUSATE SODIUM 50 MG/SENNA 8.6 MG TAB PO SCH ×2 (08:05→21:04)
[2017-04-06 08:15] LABS: POTASSIUM 4.3 MEQ/L (3.5-5.1)
[2017-04-06] MEDS: METOPROLOL TARTRATE 25 MG TAB PO SCH ×2 (09:00→21:05)
--- NOTE | 2017-04-06 11:40 | HHI.NPPN ---
Subjective History of Present Illness 61 year old with ARF no recovery possible prostate Ca ESRD Review of Systems General Constitutional: Fatigue Objective Data Data 04/05/17 04/06/17 19:00 07:00 Intake Total 240 ml 400 ml Output Total 100 ml 900 ml Balance 140 ml -500 ml Intake Oral 240 ml 400 ml Output Urine Total 100 ml 900 ml # Bowel Movements 1 6 Vital Signs Date Time Temp Pulse Resp B/P Pulse Ox O2 Delivery O2 Flow Rate FiO2 04/06/17 08:00 98.6 55 20 160/72 92 04/06/17 04:00 98.4 57 16 156/72 95 04/06/17 00:00 98.6 54 16 157/73 98 04/05/17 21:15 Room Air 04/05/17 20:00 98.7 62 16 172/77 04/05/17 16:00 98.3 59 20 159/73 99 04/05/17 12:18 57 04/05/17 12:00 96.4 59 18 159/74 98 -: 04/06/17 0601 04/06/17 0601 Physical Exam General Appearance: Well Developed, Well Nourished Pulmonary Resp Exam: Clear Bilaterally, Breath Sounds Equal Cardiology CV Exam: Regular, Normal Sinus Rhythm Gastrointestinal/Abdomen GI Exam: Soft, Non-Tender, Bowel Sounds Present Extremeties Extremities Exam: Moderate Edema Assessment/Plan Problem List: (1) ESRD (end stage renal disease) on dialysis Plan: NO RECOVERY from ARF long standing Obstructive uropathy lead to irreversible damage hemodialysis proceedings noted UF 2 L notify [facility] may need an [facility]F placement (2) Acute renal failure Plan: He had bone biopsy await results HD post PermCath follow BMP no recovery (3) Uropathy, obstructive Plan: Severe followed by urology (4) Anemia Plan: on epogen (5) hypertension Plan: on Norvasc 10 mg/ Metoprolol Problem Qualifiers (1) Anemia: Qualified Code: D64.9 - Anemia, unspecified type Karena Duval MD Apr 06, 2017 11:40
[2017-04-06 12:27] VITALS: BP 160/70; PULSE 53; RESP 20; TEMP 98.3; O2SAT 96
--- NOTE | 2017-04-06 13:12 | HHI.PR ---
Subjective Patient symptoms today Pt seen and examined. Without complaints. Urine clear. Objective Vital Signs Vital Signs Date Time Temp Pulse Resp B/P Pulse Ox O2 Delivery O2 Flow Rate FiO2 04/06/17 12:27 98.3 53 20 160/70 96 04/06/17 08:00 98.6 55 20 160/72 92 04/06/17 04:00 98.4 57 16 156/72 95 04/06/17 00:00 98.6 54 16 157/73 98 04/05/17 21:15 Room Air 04/05/17 20:00 98.7 62 16 172/77 04/05/17 16:00 98.3 59 20 159/73 99 Intake & Output 04/06/17 04/06/17 06:59 18:59 Intake Total 400 ml Output Total 900 ml 2000 ml Balance -500 ml -2000 ml Intake Oral 400 ml Output Urine Total 900 ml Hemodialysis 2000 ml # Bowel Movements 6 Result Diagram: 04/06/17 0604/06/17 06 Objective Remarks Abd:soft, tender over bladder Ext:2+ edema 03/23 Abd: soft,nt,nd Carson: blood tinged on Amicar CBI 03/[address] draining clear urine Abdomen soft, nondistended, nontender 04/04 Abd:soft,nt,nd Carson: urine clear; off Amicar 04/05 Abd:soft,nt,nd Urine clear Moving bowels 04/06 Abd:soft,nt,nd Urine clear Medications and IVs Current Medications Medications (Trade) Dose Ordered Sig/Narseen Route Start Time Stop Time Status Last Admin (NS Flush) 2 ml UNSCH PRN IV FLUSH 03/20/17 18:15 (NS Flush) 2 ml BID IV FLUSH 03/20/17 21:00 04/06/17 08:04 (Tylenol) 650 mg Q6H PRN PO 03/20/17 18:15 ([place] 5-325 Mg) 1 tab Q4H PRN PO 03/20/17 18:15 03/30/17 09:12 (Morphine Inj) 2 mg Q2H PRN IV PUSH 03/20/17 18:30 03/26/17 02:06 (Zofran Inj) 4 mg Q6H PRN IV 03/20/17 18:15 03/23/17 17:52 Miscellaneous Information 1 Q361D XX 03/20/17 18:15 03/20/17 21:46 (Chlorhexidine 2% Cloth) Taper DAILY@04 TOP 03/21/17 04:00 03/17/18 03:59 04/02/17 04:00 (Chlorhexidine 2% Cloth) 3 pack UNSCH PRN TOP 03/20/17 18:15 (Negin-Colace) 1 tab BID PO 03/20/17 21:00 04/05/17 08:10 (Milk Of Magnesia Liq) 30 ml Q12H PRN PO 03/20/17 18:15 04/04/17 09:04 (Senokot) 17.2 mg Q12H PRN PO 03/20/17 18:15 (Dulcolax Supp) 10 mg DAILY PRN RECTAL 03/20/17 18:15 04/05/17 08:12 (Lactulose Liq) 30 ml DAILY PRN PO 03/20/17 18:15 04/03/17 17:28 Calcium Acetate 667 mg 667 mg TID PO 03/21/17 18:00 04/06/17 12:32 Sodium Chloride 1,000 ml @ 0 mls/hr Q0M PRN IV 03/22/17 11:58 03/25/17 14:07 Sodium Chloride 1,000 ml @ 200 mls/hr Q5H PRN IV 03/22/17 11:58 04/02/17 11:01 (NS 1000 ml Inj) 1,000 ml @ 0 mls/hr Q0M PRN IV 03/22/17 11:58 (Mannitol Inj) 12.5 gm UNSCH PRN IV 03/22/17 12:00 (Albumin 25% Inj) 25 gm UNSCH PRN IV 03/22/17 12:00 (NS Flush) 5 ml UNSCH PRN IV FLUSH 03/22/17 12:00 (Heparin Inj) UNSCH PRN .XX 03/22/17 12:00 04/02/17 11:01 (Gentamicin (Dialysis) Inj) 20 mg UNSCH PRN IV 03/22/17 12:00 04/02/17 11:01 (Zofran Inj) 4 mg UNSCH PRN IV 03/22/17 12:00 (Tylenol) 650 mg UNSCH PRN PO 03/22/17 12:00 (Benadryl) 25 mg UNSCH PRN PO 03/22/17 12:00 (Nitrostat Sl) 0.4 mg UNSCH PRN SL 03/22/17 12:00 (Catapres) 0.1 mg UNSCH PRN PO 03/22/17 12:00 (Epogen Inj) 10,000 units UNSCH PRN IV 03/22/17 12:00 03/25/17 14:06 (Gelfoam 12 Mm/7 Mm Top) 1 foam UNSCH PRN TOP 03/22/17 12:00 Cholecalciferol 5000 units 5,000 units DAILY PO 03/23/17 09:00 04/06/17 08:03 (NS Irr Bag) 3,000 ml @ 125.5 mls/ hr Q24H IRRIGATION 03/23/17 17:00 03/31/17 17:00 (Narcan Inj) 0.4 mg Q2M PRN IV PUSH 03/23/17 17:00 (Vitamin B1) 100 mg DAILY PO 03/26/17 11:45 04/06/17 08:04 (Romazicon Inj) 0.2 mg Q1M PRN IV PUSH 03/26/17 11:30 (Ativan) 1 mg Q4H PRN PO 03/26/17 11:30 03/27/17 10:52 (Ativan Inj) 1 mg Q4H PRN IV PUSH 03/26/17 11:30 (Ativan) 2 mg Q2H PRN PO 03/26/17 11:30 03/28/17 00:15 (Ativan Inj) 2 mg Q2H PRN IV PUSH 03/26/17 11:30 (Ativan Inj) 2 mg Q1H PRN IV PUSH 03/26/17 11:30 (Ativan Inj) 2 mg Q15M PRN IV PUSH 03/26/17 11:30 (Haldol Inj) 2 mg Q15M PRN IM 03/26/17 11:30 (NS Flush) UNSCH PRN IVF 03/29/17 10:00 (Heparin Inj) UNSCH PRN IV FLUSH 03/29/17 10:00 (Protonix) 40 mg DAILY PO 04/03/17 09:00 04/06/17 08:04 (Norvasc) 10 mg DAILY PO 04/05/17 09:00 (Lopressor) 12.5 mg Q12HR PO 04/04/17 21:00 04/05/17 21:12 (Pill Splitter) 1 ea UNSCH PRN OTHER 04/04/17 11:00 Assessment and Plan Assessment and Plan 61-year-old male with acute renal failure and evidence of bladder outlet obstruction with elevated PSA and family history of prostate cancer. Maintain Carson catheter and monitor for postobstructive diuresis. Holding replacement fluids at present due to evidence of pulmonary edema on chest x-ray. CT scan ordered for later today. We'll start Flomax in the future once his creatinine starts to baseline. Once Carson catheter has been removed and he is voiding we'll need to repeat PSA at that time. We'll follow with you. Thank you for the consult and allowing me to participate in the care of this patient. 03/22 61-year-old male with acute renal failure and evidence of bladder outlet obstruction with elevated PSA and family history of prostate cancer with blastic lesions of pelvis on CT scan For cysto/clot evacuation/RPG's with possible stents and bladder bx with fulguration if necessary in OR today NPO Risks and benefits discussed with pt and daughter at bedside. 03/23 61-year-old male with acute renal failure and evidence of bladder outlet obstruction with elevated PSA and family history of prostate cancer with blastic lesions of pelvis on CT scan s/p cystoscopy with clot evacuation and b/ l JJ stent insertion Continue Amicar CBI Irrigate prn Will need PNBx in the future after ARF has resolved and overall condition is improved. Maybe done as outpt. 03/28 Resolved gross hematuria Maintain Carson catheter to gravity drainage Will eventually require transrectal ultrasound and prostate needle biopsy to confirm diagnosis of prostate cancer, this may be performed as an outpatient. 04/04 61 y.o male with ARF/gross hematuria/elevated PSA with probable CaP with h/o left hydronephrosis after b/l stent insertion Will obtain CT scan to evaluate resolution of left hydronephrosis PNBx as outpt. 04/05 61 y.o male with ARF/gross hematuria/elevated PSA with probable CaP with h/o left hydronephrosis after b/l stent insertion CT scan showing resolution of bilateral hydronephrosis with bilateral JJ stent insertion with carson in place Gross hematuria has resolved-off Amicar Elevated PSA: PNBX in the future. 04/06 61 y.o male with ARF/Gross hematuria and elevated PSA. Will need outpt PNBX Maintain carson catheter Leg bag teaching Zion Fine DO Apr 06, 2017 13:12
[2017-04-06 16:14] VITALS: BP 147/68; PULSE 97; RESP 20; TEMP 98.9; O2SAT 93
[2017-04-06] MEDS: IRR IRRIGATION SCH (17:00)
[2017-04-06] MEDS: SODIUM CHLORIDE 0.9% IRRIGATION SCH (17:00)
--- NOTE | 2017-04-06 18:36 | HHI.PR ---
Subjective Remarks Denies chest pain or shortness of breath Denies fevers or chills BP noted to be elevated Objective Vitals Vital Signs Date Time Temp Pulse Resp B/P Pulse Ox O2 Delivery O2 Flow Rate FiO2 04/06/17 16:14 98.9 97 20 147/68 93 04/06/17 12:27 98.3 53 20 160/70 96 04/06/17 08:00 98.6 55 20 160/72 92 04/06/17 08:00 Room Air 21 04/06/17 04:00 98.4 57 16 156/72 95 04/06/17 00:00 98.6 54 16 157/73 98 04/05/17 21:15 Room Air 04/05/17 20:00 98.7 62 16 172/77 I/O 04/05/17 04/05/17 04/05/17 04/06/17 04/06/17 04/06/17 07:00 15:00 23:00 07:00 15:00 23:00 Intake Total 490 ml 150 ml 240 ml Output Total 550 ml 450 ml 2750 ml Balance -60 ml -300 ml -2510 ml Intake Oral 490 ml 150 ml 240 ml Output Urine Total 550 ml 450 ml 750 ml Hemodialysis 2000 ml # Bowel Movements 5 2 2 Result Diagram: 04/06/17 0601 04/06/17 0601 Imaging Last Impressions Abdomen CT 04/05/17 0000 Signed Impressions: Service Date/Time: Wednesday, April 05, 2017 09:06 - CONCLUSION: 1. Interval placement of double-J bilateral ureteral stents with significant interval improvement of previously noted severe bilateral hydronephrosis. Residual mild right and [id number] left hydronephrosis, as above. 2. Redemonstration of blastic osseous metastatic disease. 3. Stable small to moderate bilateral pleural effusions. Ferdinand Fisher MD Bone Biopsy CT 03/31/17 1346 Signed Impressions: Service Date/Time: March 14:07 - CONCLUSION: Uncomplicated CT guided biopsy. David Peña MD Upper Extremity Ultrasound 03/29/17 0000 Signed Impressions: Service Date/Time: Wednesday, March 29, 2017 08:43 - CONCLUSION: Normal examination. Art John MD Catheter Placement X-Ray 03/29/17 0000 Signed Impressions: Service Date/Time: Wednesday, March 29, 2017 08:50 - CONCLUSION: Uncomplicated PermaCath placement as above. Ferdinand Fisher MD Renal Ultrasound 03/25/17 0000 Signed Impressions: Service Date/Time: Saturday, March 25, 2017 22:14 - CONCLUSION: Marked hydronephrosis, Grade IV left kidney. There is no hydronephrosis on the right. Markedly thickened bladder wall. Damien Peña MD FACR Chest X-Ray 03/22/17 Signed Impressions: Service Date/Time: Wednesday, March 22, 2017 16:05 - CONCLUSION: 1. Diffuse increased interstitial markings likely representing pulmonary edema. There is prominence of the central pulmonary vessels. 2. Hazy density bases with silhouetting hemidiaphragms from superimposed areas of consolidation/ atelectasis and effusions. Art Olivera MD Chest CT 03/21/17 Signed Impressions: Service Date/Time: Tuesday, March 21, 2017 13:03 - CONCLUSION: 1. Moderate to large bilateral pleural effusions with associated compressive atelectasis in the lower lobes. 2. Bilateral patchy somewhat nodular groundglass opacities with upper lobe predominance likely related to positive fluid balance. 3. Diffuse sclerotic metastasis to the thoracic vertebra, ribs, and left scapula. 4. Bilateral moderate to severe hydronephrosis, incompletely imaged on this exam. This is similar to yesterday's ultrasound exam. 5. 3.6 cm coarsely calcified left thyroid nodule. This can be further evaluated with thyroid ultrasound as indicated. Ferdinand Fisher MD Abdomen/Pelvis CT 03/21/17 Signed Impressions: Service Date/Time: Tuesday, March 21, 2017 13:03 - CONCLUSION: Large bladder mass with bone metastases. Small bilateral pleural effusions. Minimal retroperitoneal adenopathy. Damien Peña MD FACR Lower Extremity Ultrasound 03/20/17 0000 Signed Impressions: Service Date/Time: Monday, March 20, 2017 17:30 - CONCLUSION: Normal examination. Sebastián Greer MD Objective Remarks AAOx3 clear lungs BL S1S2 RRR no CVA tenderness Procedures 03/31- CT guided biospy right ilium 03/29- permacath placement Medications and IVs Current Medications Medications (Trade) Dose Ordered Sig/Nasreen Route Start Time Stop Time Status Last Admin (NS Flush) 2 ml UNSCH PRN IV FLUSH 03/20/17 18:15 (NS Flush) 2 ml BID IV FLUSH 03/20/17 21:00 04/06/17 08:04 (Tylenol) 650 mg Q6H PRN PO 03/20/17 18:15 (Twining 5-325 Mg) 1 tab Q4H PRN PO 03/20/17 18:15 03/30/17 09:12 (Morphine Inj) 2 mg Q2H PRN IV PUSH 03/20/17 18:30 03/26/17 02:06 (Zofran Inj) 4 mg Q6H PRN IV 03/20/17 18:15 03/23/17 17:52 Miscellaneous Information 1 Q361D XX 03/20/17 18:15 03/20/17 21:46 (Chlorhexidine 2% Cloth) Taper DAILY@04 TOP 03/21/17 04:00 03/17/18 03:59 04/02/17 04:00 (Chlorhexidine 2% Cloth) 3 pack UNSCH PRN TOP 03/20/17 18:15 (Negin-Colace) 1 tab BID PO 03/20/17 21:00 04/05/17 08:10 (Milk Of Magnesia Liq) 30 ml Q12H PRN PO 03/20/17 18:15 04/04/17 09:04 (Senokot) 17.2 mg Q12H PRN PO 03/20/17 18:15 (Dulcolax Supp) 10 mg DAILY PRN RECTAL 03/20/17 18:15 04/05/17 08:12 (Lactulose Liq) 30 ml DAILY PRN PO 03/20/17 18:15 04/03/17 17:28 Calcium Acetate 667 mg 667 mg TID PO 03/21/17 18:00 04/06/17 17:44 Sodium Chloride 1,000 ml @ 0 mls/hr Q0M PRN IV 03/22/17 11:58 03/25/17 14:07 Sodium Chloride 1,000 ml @ 200 mls/hr Q5H PRN IV 03/22/17 11:58 04/02/17 11:01 (NS 1000 ml Inj) 1,000 ml @ 0 mls/hr Q0M PRN IV 03/22/17 11:58 (Mannitol Inj) 12.5 gm UNSCH PRN IV 03/22/17 12:00 (Albumin 25% Inj) 25 gm UNSCH PRN IV 03/22/17 12:00 (NS Flush) 5 ml UNSCH PRN IV FLUSH 03/22/17 12:00 (Heparin Inj) UNSCH PRN .XX 03/22/17 12:00 04/02/17 11:01 (Gentamicin (Dialysis) Inj) 20 mg UNSCH PRN IV 03/22/17 12:00 04/02/17 11:01 (Zofran Inj) 4 mg UNSCH PRN IV 03/22/17 12:00 (Tylenol) 650 mg UNSCH PRN PO 03/22/17 12:00 (Benadryl) 25 mg UNSCH PRN PO 03/22/17 12:00 (Nitrostat Sl) 0.4 mg UNSCH PRN SL 03/22/17 12:00 (Catapres) 0.1 mg UNSCH PRN PO 03/22/17 12:00 (Epogen Inj) 10,000 units UNSCH PRN IV 03/22/17 12:00 03/25/17 14:06 (Gelfoam 12 Mm/7 Mm Top) 1 foam UNSCH PRN TOP 03/22/17 12:00 Cholecalciferol 5000 units 5,000 units DAILY PO 03/23/17 09:00 04/06/17 08:03 (NS Irr Bag) 3,000 ml @ 125.5 mls/ hr Q24H IRRIGATION 03/23/17 17:00 03/31/17 17:00 (Narcan Inj) 0.4 mg Q2M PRN IV PUSH 03/23/17 17:00 (Vitamin B1) 100 mg DAILY PO 03/26/17 11:45 04/06/17 08:04 (Romazicon Inj) 0.2 mg Q1M PRN IV PUSH 03/26/17 11:30 (Ativan) 1 mg Q4H PRN PO 03/26/17 11:30 03/27/17 10:52 (Ativan Inj) 1 mg Q4H PRN IV PUSH 03/26/17 11:30 (Ativan) 2 mg Q2H PRN PO 03/26/17 11:30 03/28/17 00:15 (Ativan Inj) 2 mg Q2H PRN IV PUSH 03/26/17 11:30 (Ativan Inj) 2 mg Q1H PRN IV PUSH 03/26/17 11:30 (Ativan Inj) 2 mg Q15M PRN IV PUSH 03/26/17 11:30 (Haldol Inj) 2 mg Q15M PRN IM 03/26/17 11:30 (NS Flush) UNSCH PRN IVF 03/29/17 10:00 (Heparin Inj) UNSCH PRN IV FLUSH 03/29/17 10:00 (Protonix) 40 mg DAILY PO 04/03/17 09:00 04/06/17 08:04 (Norvasc) 10 mg DAILY PO 04/05/17 09:00 (Lopressor) 12.5 mg Q12HR PO 04/04/17 21:00 04/05/17 21:12 (Pill Splitter) 1 ea UNSCH PRN OTHER 04/04/17 11:00 Urinary Catheter: Yes Assessment to: Continue Pollock insert reason: Obstruction/Retention Vascular Central Line Catheter: No A/P Problem List: (1) obstructive uropathy, renal failure Status: Acute Plan: Patient presented with acute kidney injury secondary to obstructive uropathy due to bladder mass. 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 The patient underwent cystoscopy with ureteral stenting on 03/[address] Fine The patient currently on hemodialysis since 03/22. Maintain Pollock catheter. (2) Bladder mass ICD Code: N32.89 Status: Acute Plan: Patient had a repeat cystoscopy with fulguration of bleeding sites urinary bladder on 03/24. CT abdomen/pelvis obtained on shows resolution of bilateral hydronephrosis with bilateral JJ stent insertion with folding place. Appreciate input from urology, nephrology, oncology and palliative care medicine. (3) apparent bony metastases, elevated PSA, suspected prostate cancer Status: Acute Plan: Status post biopsy of the left iliac crest lesion as detailed above, positive for metastatic carcinoma of the prostate. Follow-up oncology recommendations. (4) acute renal failure, on dialysis Status: Acute Plan: Secondary to obstructive uropathy, due to bladder mass. Creatinine not recovering and patient now hemodialysis dependent. Follow-up nephrology recommendations (5) hypertension Status: Chronic Plan: Blood pressure seems to be elevated in the 150s and 160s systolic. Patient on Norvas and metoprolol however did not get this medications since he was on hemodialysis. (6) Anemia due to acute blood loss ICD Code: D62 Status: Acute Plan: Anemia secondary to hematuria and possible metastases. Hematology consulted. Input appreciated. Status post transfusion of 8 units of PRBCs since admission. Assessment and Plan GI prophylaxis: Continue Protonix. DVT prophylaxis: SCDs, no chemoprophylaxis given recent severe blood loss anemia. Discharge Planning SSI pending. Will need hemodialysis upon discharge. Jersey Arrieta MD Apr 06, 2017 18:36
[2017-04-06 20:08] VITALS: BP 158/70; PULSE 64; RESP 16; TEMP 99.8; O2SAT 97
--- NOTE | 2017-04-06 22:37 | PD.ONC.PN ---
Subjective Subjective Remarks no new c/o Objective Data Date Time Temp Pulse Resp B/P Pulse Ox O2 Delivery O2 Flow Rate FiO2 04/06/17 20:08 99.8 64 16 158/70 97 04/06/17 16:14 98.9 97 20 147/68 93 04/06/17 12:27 98.3 53 20 160/70 96 04/06/17 08:00 98.6 55 20 160/72 92 04/06/17 08:00 Room Air 21 04/06/17 04:00 98.4 57 16 156/72 95 04/06/17 00:00 98.6 54 16 157/73 98 04/06/17 04/06/17 04/06/17 07:00 15:00 23:00 Intake Total 150 ml 240 ml 400 ml Output Total 450 ml 2750 ml 550 ml Balance -300 ml -2510 ml -150 ml Result Diagram: 04/06/17 0601 04/06/17 0601 Laboratory Results Laboratory Tests Test 04/06/17 06:01 White Blood Count 12.4 TH/MM3 Red Blood Count 3.03 MIL/MM3 Hemoglobin 9.0 GM/DL Hematocrit 27.0 % Mean Corpuscular Volume 88.9 FL Mean Corpuscular Hemoglobin 29.5 PG Mean Corpuscular Hemoglobin 33.2 % Concent Red Cell Distribution Width 16.6 % Platelet Count 220 TH/MM3 Mean Platelet Volume 8.3 FL Neutrophils (%) (Auto) 57.5 % Lymphocytes (%) (Auto) 29.4 % Monocytes (%) (Auto) 6.7 % Eosinophils (%) (Auto) 5.2 % Basophils (%) (Auto) 1.2 % Neutrophils # (Auto) 7.1 TH/MM3 Lymphocytes # (Auto) 3.6 TH/MM3 Monocytes # (Auto) 0.8 TH/MM3 Eosinophils # (Auto) 0.6 TH/MM3 Basophils # (Auto) 0.1 TH/MM3 CBC Comment DIFF FINAL Differential Comment Sodium Level 137 MEQ/L Potassium Level 4.3 MEQ/L Chloride Level 101 MEQ/L Carbon Dioxide Level 25.0 MEQ/L Anion Gap 11 MEQ/L Blood Urea Nitrogen 66 MG/DL Creatinine 7.38 MG/DL Estimat Glomerular Filtration 8 ML/MIN Rate Random Glucose 79 MG/DL Calcium Level 8.1 MG/DL Phosphorus Level 2.8 MG/DL Albumin 2.1 GM/DL Administered Medications Medications (Trade) Dose Ordered Sig/Nasreen Route PRN Reason Start Time Stop Time Status Last Admin Dose Admin Sodium Chloride (NS Flush) 2 ml BID IV FLUSH 03/20/17 21:00 04/06/17 21:05 Acetaminophen/ Hydrocodone Bitart (Clinton 5-325 Mg) 1 tab Q4H PRN PO PAIN SCALE 1 TO 5 03/20/17 18:15 03/30/17 09:12 Morphine Sulfate (Morphine Inj) 2 mg Q2H PRN IV PUSH PAIN 6-10 03/20/17 18:30 03/26/17 02:06 Ondansetron HCl (Zofran Inj) 4 mg Q6H PRN IV NAUSEA OR VOMITING 03/20/17 18:15 03/23/17 17:52 Miscellaneous Information 1 Q361D XX 03/20/17 18:15 03/20/17 21:46 Chlorhexidine Gluconate (Chlorhexidine 2% Cloth) Taper DAILY@04 TOP 03/21/17 04:00 03/17/18 03:59 04/02/17 04:00 Senna/Docusate Sodium (Negin-Colace) 1 tab BID PO 03/20/17 21:00 04/05/17 08:10 Magnesium Hydroxide (Milk Of Magnesia Liq) 30 ml Q12H PRN PO MILD - MODERATE CONSTIPATION 03/20/17 18:15 04/04/17 09:04 Bisacodyl (Dulcolax Supp) 10 mg DAILY PRN RECTAL SEVERE CONSITIPATION 03/20/17 18:15 04/05/17 08:12 Lactulose (Lactulose Liq) 30 ml DAILY PRN PO SEVERE CONSITIPATION 03/20/17 18:15 04/03/17 17:28 Calcium Acetate 667 mg 667 mg TID PO 03/21/17 18:00 04/06/17 17:44 Sodium Chloride 1,000 ml @ 0 mls/hr Q0M PRN IV For Prime & Rinse Back 03/22/17 11:58 03/25/17 14:07 Sodium Chloride (NS 1000 ml Inj) 1,000 ml @ 200 mls/hr Q5H PRN IV WITH DIALYSIS 03/22/17 11:58 04/02/17 11:01 Heparin Sodium (Porcine) (Heparin Inj) UNSCH PRN .XX WITH DIALYSIS 03/22/17 12:00 04/02/17 11:01 Gentamicin Sulfate (Gentamicin (Dialysis) Inj) 20 mg UNSCH PRN IV WITH DIALYSIS 03/22/17 12:00 04/02/17 11:01 Epoetin Hermes (Epogen Inj) 10,000 units UNSCH PRN IV WITH DIALYSIS 03/22/17 12:00 03/25/17 14:06 Cholecalciferol 5000 units 5,000 units DAILY PO 03/23/17 09:00 04/06/17 08:03 Sodium Chloride (NS Irr Bag) 3,000 ml @ 125.5 mls/ hr Q24H IRRIGATION 03/23/17 17:00 03/31/17 17:00 Thiamine HCl (Vitamin B1) 100 mg DAILY PO 03/26/17 11:45 04/06/17 08:04 Lorazepam (Ativan) 1 mg Q4H PRN PO CIWA 8 - 10 03/26/17 11:30 03/27/17 10:52 Lorazepam (Ativan) 2 mg Q2H PRN PO CIWA 11-14 03/26/17 11:30 03/28/17 00:15 Pantoprazole Sodium (Protonix) 40 mg DAILY PO 04/03/17 09:00 04/06/17 08:04 Metoprolol Tartrate (Lopressor) 12.5 mg Q12HR PO 04/04/17 21:00 04/06/17 21:05 Objective Remarks GENERAL: Well-nourished, well-developed patient. SKIN: Warm and dry. HEAD: Normocephalic. EYES: No scleral icterus. No injection or drainage. NECK: Supple, trachea midline. No JVD or lymphadenopathy. LYMPHATIC: No adenopathy. CARDIOVASCULAR: Regular rate and rhythm without murmurs. RESPIRATORY: Breath sounds equal bilaterally. No accessory muscle use. GASTROINTESTINAL: Abdomen soft, non-tender, nondistended. EXTREMITIES: No cyanosis, or edema. MUSCULOSKELETAL: Adequate muscle tone. NEUROLOGICAL: No obvious focal deficit. Awake, alert, and oriented x3. PSYCHIATRIC: Appropriate mood and affect; insight and judgment normal. Assessment/Plan Problem List: (1) Bladder mass Status: Acute Plan: 04/06: pathology is still pending. PSA elevated CT ab/pelvis: + bladder mass with bony mets. CT chest: bilateral pleural effusions. + bony mets to thoracic vertebra, ribs, left scapula (2) Anemia Status: Acute Plan: --transfuse as needed --hemoccult negative --keren negative --no sign of hemolysis. --slightly elevated retic count, no sign of iron deficiency Assessment 61y/o male admitted with ARF, CT shows possible bladder mass and bony mets + elevated PSA. Problem Qualifiers (1) Anemia: Qualified Code: D64.9 - Anemia, unspecified type Cam Arceo MD Apr 06, 2017 22:37
[2017-04-07] VITALS: BP 159/73; PULSE 57; RESP 16; TEMP 99.3; O2SAT 95
[2017-04-07 04:00] VITALS: BP 127/58; PULSE 71; RESP 16; TEMP 98.3; O2SAT 94
[2017-04-07] MEDS: CHLORHEXIDINE GLUCONATE 2 % 1 PACK (2 CLOTHS) TOP SCH (04:00)
[2017-04-07 08:00] VITALS: BP_SYST 131; BP_SYST 158; BP_DIAS 70; BP_DIAS 74; PULSE 121; PULSE 66; RESP 16; RESP 30; TEMP 101.2; TEMP 98; O2SAT 94; O2SAT 97
[2017-04-07 08:34] LABS: HEMATOCRIT 26.1 % (39.0-51.0); MEAN CELL VOLUME 89.6 FL (80.0-100.0); MEAN CORPUSCULAR HEMOGLOBIN 29.7 PG (27.0-34.0); MEAN CORPUSCULAR HGB CONC 33.1 % (32.0-36.0); PLATELET COUNT 221 TH/MM3 (150-450); RED BLOOD COUNT 2.92 MIL/MM3 (4.50-5.90); RED CELL DISTRIBUTION WIDTH 16.7 % (11.6-17.2); REVIEW FLAG FINAL; WHITE BLOOD COUNT 11.6 TH/MM3 (4.0-11.0)
[2017-04-07 09:06] LABS: BICARBONATE 27.1 MEQ/L (21.0-32.0); POTASSIUM 4.4 MEQ/L (3.5-5.1)
[2017-04-07] MEDS: THIAMINE HCL 100 MG TAB PO SCH (11:00)
[2017-04-07] MEDS: CHOLECALCIFEROL (VIT D3) 5000 UNIT CAP PO SCH (11:01)
[2017-04-07] MEDS: METOPROLOL TARTRATE 25 MG TAB PO SCH ×2 (11:01→21:18)
[2017-04-07] MEDS: PANTOPRAZOLE SOD 40 MG DELAYED RELEASE TAB PO SCH (11:01)
[2017-04-07] MEDS: CALCIUM ACETATE 667 MG CAP PO SCH ×3 (11:03→18:43)
[2017-04-07] MEDS: DOCUSATE SODIUM 50 MG/SENNA 8.6 MG TAB PO SCH ×2 (11:08→21:00)
[2017-04-07] MEDS: SODIUM CHLORIDE 0.9% FLUSH 10 ML FLUSH IV FLUSH SCH ×2 (11:09→21:19)
--- NOTE | 2017-04-07 11:19 | HHI.PR ---
Subjective Patient symptoms today Pt feeling better. Creatinine at 5.4 today. Urine clear. Objective Vital Signs Vital Signs Date Time Temp Pulse Resp B/P Pulse Ox O2 Delivery O2 Flow Rate FiO2 04/07/17 08:00 101.2 121 30 131/74 94 04/07/17 08:00 98.0 66 16 158/70 97 04/07/17 04:00 98.3 71 16 127/58 94 04/07/17 00:00 99.3 57 16 159/73 95 04/06/17 22:54 97 Room Air 04/06/17 20:08 99.8 64 16 158/70 97 04/06/17 16:14 98.9 97 20 147/68 93 04/06/17 12:27 98.3 53 20 160/70 96 Intake & Output 04/07/17 04/07/17 07:00 19:00 Intake Total 650 ml Output Total 950 ml Balance -300 ml Intake Oral 650 ml Output Urine Total 950 ml # Bowel Movements 1 Result Diagram: 04/07/1744 04/07/17 06 Objective Remarks Abd:soft, tender over bladder Ext:2+ edema 03/23 Abd: soft,nt,nd Carson: blood tinged on Amicar CBI 03/[address] draining clear urine Abdomen soft, nondistended, nontender 04/04 Abd:soft,nt,nd Carson: urine clear; off Amicar 04/05 Abd:soft,nt,nd Urine clear Moving bowels 04/06 Abd:soft,nt,nd Urine clear 04/07 Abd:soft,nt,nd Urine clear Medications and IVs Current Medications Medications (Trade) Dose Ordered Sig/Nasreen Route Start Time Stop Time Status Last Admin (NS Flush) 2 ml UNSCH PRN IV FLUSH 03/20/17 18:15 (NS Flush) 2 ml BID IV FLUSH 03/20/17 21:00 04/07/17 11:09 (Tylenol) 650 mg Q6H PRN PO 03/20/17 18:15 (Gilbert 5-325 Mg) 1 tab Q4H PRN PO 03/20/17 18:15 03/30/17 09:12 (Morphine Inj) 2 mg Q2H PRN IV PUSH 03/20/17 18:30 03/26/17 02:06 (Zofran Inj) 4 mg Q6H PRN IV 03/20/17 18:15 03/23/17 17:52 Miscellaneous Information 1 Q361D XX 03/20/17 18:15 03/20/17 21:46 (Chlorhexidine 2% Cloth) Taper DAILY@04 TOP 03/21/17 04:00 03/17/18 03:59 04/02/17 04:00 (Chlorhexidine 2% Cloth) 3 pack UNSCH PRN TOP 03/20/17 18:15 (Negin-Colace) 1 tab BID PO 03/20/17 21:00 04/05/17 08:10 (Milk Of Magnesia Liq) 30 ml Q12H PRN PO 03/20/17 18:15 04/04/17 09:04 (Senokot) 17.2 mg Q12H PRN PO 03/20/17 18:15 (Dulcolax Supp) 10 mg DAILY PRN RECTAL 03/20/17 18:15 04/05/17 08:12 (Lactulose Liq) 30 ml DAILY PRN PO 03/20/17 18:15 04/03/17 17:28 Calcium Acetate 667 mg 667 mg TID PO 03/21/17 18:00 04/07/17 11:03 Sodium Chloride 1,000 ml @ 0 mls/hr Q0M PRN IV 03/22/17 11:58 03/25/17 14:07 Sodium Chloride 1,000 ml @ 200 mls/hr Q5H PRN IV 03/22/17 11:58 04/02/17 11:01 (NS 1000 ml Inj) 1,000 ml @ 0 mls/hr Q0M PRN IV 03/22/17 11:58 (Mannitol Inj) 12.5 gm UNSCH PRN IV 03/22/17 12:00 (Albumin 25% Inj) 25 gm UNSCH PRN IV 03/22/17 12:00 (NS Flush) 5 ml UNSCH PRN IV FLUSH 03/22/17 12:00 (Heparin Inj) UNSCH PRN .XX 03/22/17 12:00 04/02/17 11:01 (Gentamicin (Dialysis) Inj) 20 mg UNSCH PRN IV 03/22/17 12:00 04/02/17 11:01 (Zofran Inj) 4 mg UNSCH PRN IV 03/22/17 12:00 (Tylenol) 650 mg UNSCH PRN PO 03/22/17 12:00 (Benadryl) 25 mg UNSCH PRN PO 03/22/17 12:00 (Nitrostat Sl) 0.4 mg UNSCH PRN SL 03/22/17 12:00 (Catapres) 0.1 mg UNSCH PRN PO 03/22/17 12:00 (Epogen Inj) 10,000 units UNSCH PRN IV 03/22/17 12:00 03/25/17 14:06 (Gelfoam 12 Mm/7 Mm Top) 1 foam UNSCH PRN TOP 03/22/17 12:00 Cholecalciferol 5000 units 5,000 units DAILY PO 03/23/17 09:00 04/07/17 11:01 (NS Irr Bag) 3,000 ml @ 125.5 mls/ hr Q24H IRRIGATION 03/23/17 17:00 03/31/17 17:00 (Narcan Inj) 0.4 mg Q2M PRN IV PUSH 03/23/17 17:00 (Vitamin B1) 100 mg DAILY PO 03/26/17 11:45 04/07/17 11:00 (Romazicon Inj) 0.2 mg Q1M PRN IV PUSH 03/26/17 11:30 (Ativan) 1 mg Q4H PRN PO 03/26/17 11:30 03/27/17 10:52 (Ativan Inj) 1 mg Q4H PRN IV PUSH 03/26/17 11:30 (Ativan) 2 mg Q2H PRN PO 03/26/17 11:30 03/28/17 00:15 (Ativan Inj) 2 mg Q2H PRN IV PUSH 03/26/17 11:30 (Ativan Inj) 2 mg Q1H PRN IV PUSH 03/26/17 11:30 (Ativan Inj) 2 mg Q15M PRN IV PUSH 03/26/17 11:30 (Haldol Inj) 2 mg Q15M PRN IM 03/26/17 11:30 (NS Flush) UNSCH PRN IVF 03/29/17 10:00 (Heparin Inj) UNSCH PRN IV FLUSH 03/29/17 10:00 (Protonix) 40 mg DAILY PO 04/03/17 09:00 04/07/17 11:01 (Norvasc) 10 mg DAILY PO 04/05/17 09:00 (Lopressor) 12.5 mg Q12HR PO 04/04/17 21:00 04/07/17 11:01 (Pill Splitter) 1 ea UNSCH PRN OTHER 04/04/17 11:00 Assessment and Plan Assessment and Plan 61-year-old male with acute renal failure and evidence of bladder outlet obstruction with elevated PSA and family history of prostate cancer. Maintain Carson catheter and monitor for postobstructive diuresis. Holding replacement fluids at present due to evidence of pulmonary edema on chest x-ray. CT scan ordered for later today. We'll start Flomax in the future once his creatinine starts to baseline. Once Carson catheter has been removed and he is voiding we'll need to repeat PSA at that time. We'll follow with you. Thank you for the consult and allowing me to participate in the care of this patient. 03/22 61-year-old male with acute renal failure and evidence of bladder outlet obstruction with elevated PSA and family history of prostate cancer with blastic lesions of pelvis on CT scan For cysto/clot evacuation/RPG's with possible stents and bladder bx with fulguration if necessary in OR today NPO Risks and benefits discussed with pt and daughter at bedside. 03/23 61-year-old male with acute renal failure and evidence of bladder outlet obstruction with elevated PSA and family history of prostate cancer with blastic lesions of pelvis on CT scan s/p cystoscopy with clot evacuation and b/ l JJ stent insertion Continue Amicar CBI Irrigate prn Will need PNBx in the future after ARF has resolved and overall condition is improved. Maybe done as outpt. 03/28 Resolved gross hematuria Maintain Carson catheter to gravity drainage Will eventually require transrectal ultrasound and prostate needle biopsy to confirm diagnosis of prostate cancer, this may be performed as an outpatient. 04/04 61 y.o male with ARF/gross hematuria/elevated PSA with probable CaP with h/o left hydronephrosis after b/l stent insertion Will obtain CT scan to evaluate resolution of left hydronephrosis PNBx as outpt. 04/05 61 y.o male with ARF/gross hematuria/elevated PSA with probable CaP with h/o left hydronephrosis after b/l stent insertion CT scan showing resolution of bilateral hydronephrosis with bilateral JJ stent insertion with carson in place Gross hematuria has resolved-off Amicar Elevated PSA: PNBX in the future. 04/06 61 y.o male with ARF/Gross hematuria and elevated PSA. Will need outpt PNBX Maintain carson catheter Leg bag teaching 04/07 61 y.o male with ARF/Gross hematuria and elevated PSA. Will need outpt PNBX Maintain carson catheter Leg bag teaching Outpatient dialysis to be done without using heparin please Zion Fine DO Apr 07, 2017 11:19
--- NOTE | 2017-04-07 11:42 | HHI.PR ---
Subjective Remarks denies cp/sob no further hematuria Objective Vitals Vital Signs Date Time Temp Pulse Resp B/P Pulse Ox O2 Delivery O2 Flow Rate FiO2 04/07/17 08:00 101.2 121 30 131/74 94 04/07/17 08:00 98.0 66 16 158/70 97 04/07/17 04:00 98.3 71 16 127/58 94 04/07/17 00:00 99.3 57 16 159/73 95 04/06/17 22:54 97 Room Air 04/06/17 20:08 99.8 64 16 158/70 97 04/06/17 16:14 98.9 97 20 147/68 93 04/06/17 12:27 98.3 53 20 160/70 96 I/O 04/06/17 04/06/17 04/06/17 04/07/17 04/07/17 04/07/17 07:00 15:00 23:00 07:00 15:00 23:00 Intake Total 150 ml 240 ml 400 ml 250 ml Output Total 450 ml 2750 ml 550 ml 400 ml Balance -300 ml -2510 ml -150 ml -150 ml Intake Oral 150 ml 240 ml 400 ml 250 ml Output Urine Total 450 ml 750 ml 550 ml 400 ml Hemodialysis 2000 ml # Bowel Movements 2 2 0 1 Result Diagram: 04/07/17 0644 04/07/17 0644 Imaging Last Impressions Abdomen CT 04/05/17 0000 Signed Impressions: Service Date/Time: Wednesday, April 05, 2017 09:06 - CONCLUSION: 1. Interval placement of double-J bilateral ureteral stents with significant interval improvement of previously noted severe bilateral hydronephrosis. Residual mild right and [id number] left hydronephrosis, as above. 2. Redemonstration of blastic osseous metastatic disease. 3. Stable small to moderate bilateral pleural effusions. Ferdinand Fisher MD Bone Biopsy CT 03/31/17 1346 Signed Impressions: Service Date/Time: March 14:07 - CONCLUSION: Uncomplicated CT guided biopsy. David Peña MD Upper Extremity Ultrasound 03/29/17 0000 Signed Impressions: Service Date/Time: Wednesday, March 29, 2017 08:43 - CONCLUSION: Normal examination. Art John MD Catheter Placement X-Ray 7/11/17 0000 Signed Impressions: Service Date/Time: Wednesday, March 29, 2017 08:50 - CONCLUSION: Uncomplicated PermaCath placement as above. Ferdinand Fisher MD Renal Ultrasound 03/25/17 Signed Impressions: Service Date/Time: Saturday, March 25, 2017 22:14 - CONCLUSION: Marked hydronephrosis, Grade IV left kidney. There is no hydronephrosis on the right. Markedly thickened bladder wall. Damien Peña MD FACR Chest X-Ray 03/22/17 Signed Impressions: Service Date/Time: Wednesday, March 22, 2017 16:05 - CONCLUSION: 1. Diffuse increased interstitial markings likely representing pulmonary edema. There is prominence of the central pulmonary vessels. 2. Hazy density bases with silhouetting hemidiaphragms from superimposed areas of consolidation/ atelectasis and effusions. Art Olivera MD Chest CT 03/21/17 Signed Impressions: Service Date/Time: Tuesday, March 21, 2017 13:03 - CONCLUSION: 1. Moderate to large bilateral pleural effusions with associated compressive atelectasis in the lower lobes. 2. Bilateral patchy somewhat nodular groundglass opacities with upper lobe predominance likely related to positive fluid balance. 3. Diffuse sclerotic metastasis to the thoracic vertebra, ribs, and left scapula. 4. Bilateral moderate to severe hydronephrosis, incompletely imaged on this exam. This is similar to yesterday's ultrasound exam. 5. 3.6 cm coarsely calcified left thyroid nodule. This can be further evaluated with thyroid ultrasound as indicated. Ferdinand Fisher MD Abdomen/Pelvis CT 03/21/17 Signed Impressions: Service Date/Time: Tuesday, March 21, 2017 13:03 - CONCLUSION: Large bladder mass with bone metastases. Small bilateral pleural effusions. Minimal retroperitoneal adenopathy. Damien Peña MD FACR Lower Extremity Ultrasound 03/20/17 Signed Impressions: Service Date/Time: Monday, March 20, 2017 17:30 - CONCLUSION: Normal examination. Sebastián Greer MD Objective Remarks AAOx3 clear lungs BL S1S2 RRR no CVA tenderness Procedures 03/31- CT guided biospy right ilium 03/29- permacath placement Medications and IVs Current Medications Medications (Trade) Dose Ordered Sig/Nasreen Route Start Time Stop Time Status Last Admin (NS Flush) 2 ml UNSCH PRN IV FLUSH 03/20/17 18:15 (NS Flush) 2 ml BID IV FLUSH 03/20/17 21:00 04/07/17 11:09 (Tylenol) 650 mg Q6H PRN PO 03/20/17 18:15 ([place] 5-325 Mg) 1 tab Q4H PRN PO 03/20/17 18:15 03/30/17 09:12 (Morphine Inj) 2 mg Q2H PRN IV PUSH 03/20/17 18:30 03/26/17 02:06 (Zofran Inj) 4 mg Q6H PRN IV 03/20/17 18:15 03/23/17 17:52 Miscellaneous Information 1 Q361D XX 03/20/17 18:15 03/20/17 21:46 (Chlorhexidine 2% Cloth) Taper DAILY@04 TOP 03/21/17 04:00 03/17/18 03:59 04/02/17 04:00 (Chlorhexidine 2% Cloth) 3 pack UNSCH PRN TOP 03/20/17 18:15 (Negin-Colace) 1 tab BID PO 03/20/17 21:00 04/05/17 08:10 (Milk Of Magnesia Liq) 30 ml Q12H PRN PO 03/20/17 18:15 04/04/17 09:04 (Senokot) 17.2 mg Q12H PRN PO 03/20/17 18:15 (Dulcolax Supp) 10 mg DAILY PRN RECTAL 03/20/17 18:15 04/05/17 08:12 (Lactulose Liq) 30 ml DAILY PRN PO 03/20/17 18:15 04/03/17 17:28 Calcium Acetate 667 mg 667 mg TID PO 03/21/17 18:00 04/07/17 11:03 Sodium Chloride 1,000 ml @ 0 mls/hr Q0M PRN IV 03/22/17 11:58 03/25/17 14:07 Sodium Chloride 1,000 ml @ 200 mls/hr Q5H PRN IV 03/22/17 11:58 04/02/17 11:01 (NS 1000 ml Inj) 1,000 ml @ 0 mls/hr Q0M PRN IV 03/22/17 11:58 (Mannitol Inj) 12.5 gm UNSCH PRN IV 03/22/17 12:00 (Albumin 25% Inj) 25 gm UNSCH PRN IV 03/22/17 12:00 (NS Flush) 5 ml UNSCH PRN IV FLUSH 03/22/17 12:00 (Heparin Inj) UNSCH PRN .XX 03/22/17 12:00 04/02/17 11:01 (Gentamicin (Dialysis) Inj) 20 mg UNSCH PRN IV 03/22/17 12:00 04/02/17 11:01 (Zofran Inj) 4 mg UNSCH PRN IV 03/22/17 12:00 (Tylenol) 650 mg UNSCH PRN PO 03/22/17 12:00 (Benadryl) 25 mg UNSCH PRN PO 03/22/17 12:00 (Nitrostat Sl) 0.4 mg UNSCH PRN SL 03/22/17 12:00 (Catapres) 0.1 mg UNSCH PRN PO 03/22/17 12:00 (Epogen Inj) 10,000 units UNSCH PRN IV 03/22/17 12:00 03/25/17 14:06 (Gelfoam 12 Mm/7 Mm Top) 1 foam UNSCH PRN TOP 03/22/17 12:00 Cholecalciferol 5000 units 5,000 units DAILY PO 03/23/17 09:00 04/07/17 11:01 (NS Irr Bag) 3,000 ml @ 125.5 mls/ hr Q24H IRRIGATION 03/23/17 17:00 03/31/17 17:00 (Narcan Inj) 0.4 mg Q2M PRN IV PUSH 03/23/17 17:00 (Vitamin B1) 100 mg DAILY PO 03/26/17 11:45 04/07/17 11:00 (Romazicon Inj) 0.2 mg Q1M PRN IV PUSH 03/26/17 11:30 (Ativan) 1 mg Q4H PRN PO 03/26/17 11:30 03/27/17 10:52 (Ativan Inj) 1 mg Q4H PRN IV PUSH 03/26/17 11:30 (Ativan) 2 mg Q2H PRN PO 03/26/17 11:30 03/28/17 00:15 (Ativan Inj) 2 mg Q2H PRN IV PUSH 03/26/17 11:30 (Ativan Inj) 2 mg Q1H PRN IV PUSH 03/26/17 11:30 (Ativan Inj) 2 mg Q15M PRN IV PUSH 03/26/17 11:30 (Haldol Inj) 2 mg Q15M PRN IM 03/26/17 11:30 (NS Flush) UNSCH PRN IVF 03/29/17 10:00 (Heparin Inj) UNSCH PRN IV FLUSH 03/29/17 10:00 (Protonix) 40 mg DAILY PO 04/03/17 09:00 04/07/17 11:01 (Norvasc) 10 mg DAILY PO 04/05/17 09:00 (Lopressor) 12.5 mg Q12HR PO 04/04/17 21:00 04/07/17 11:01 (Pill Splitter) 1 ea UNSCH PRN OTHER 04/04/17 11:00 A/P Problem List: (1) obstructive uropathy, renal failure Status: Acute Plan: Patient presented with acute kidney injury secondary to obstructive uropathy due to bladder mass. 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 The patient underwent cystoscopy with ureteral stenting on 03/[address] Fine The patient currently on hemodialysis since 03/22. Maintain Pollock catheter. as per urology hemodialysis should be without heparin (2) Bladder mass ICD Code: N32.89 Status: Acute Plan: Patient had a repeat cystoscopy with fulguration of bleeding sites urinary bladder on 03/24. CT abdomen/pelvis obtained on shows resolution of bilateral hydronephrosis with bilateral JJ stent insertion with folding place. Appreciate input from urology, nephrology, oncology and palliative care medicine. (3) apparent bony metastases, elevated PSA, suspected prostate cancer Status: Acute Plan: Status post biopsy of the left iliac crest lesion as detailed above, positive for metastatic carcinoma of the prostate. Follow-up oncology recommendations. (4) acute renal failure, on dialysis Status: Acute Plan: Secondary to obstructive uropathy, due to bladder mass. Creatinine not recovering and patient now hemodialysis dependent. Follow-up nephrology recommendations (5) hypertension Status: Chronic Plan: Blood pressure seems to be elevated in the 150s and 160s systolic. Patient on Norvas and metoprolol however did not get this medications since he was on hemodialysis. (6) Anemia due to acute blood loss ICD Code: D62 Status: Acute Plan: Anemia secondary to hematuria and possible metastases. Hematology consulted. Input appreciated. Status post transfusion of 8 units of PRBCs since admission. Assessment and Plan GI prophylaxis: Continue Protonix. DVT prophylaxis: SCDs, no chemoprophylaxis given recent severe blood loss anemia. Discharge Planning SSI pending. Will need hemodialysis upon discharge. Jersey Arrieta MD Apr 07, 2017 11:42
[2017-04-07 12:00] VITALS: BP 191/81; PULSE 54; RESP 18; TEMP 99.2; O2SAT 95
--- NOTE | 2017-04-07 12:57 | HHI.NPPN ---
Subjective History of Present Illness 61 year old with ARF no recovery metastatic prostate Ca ESRD Review of Systems General Constitutional: Fatigue Objective Data Data 04/06/17 04/07/17 19:00 07:00 Intake Total 240 ml 650 ml Output Total 2750 ml 950 ml Balance -2510 ml -300 ml Intake Oral 240 ml 650 ml Output Urine Total 750 ml 950 ml Hemodialysis 2000 ml # Bowel Movements 2 1 Vital Signs Date Time Temp Pulse Resp B/P Pulse Ox O2 Delivery O2 Flow Rate FiO2 04/07/17 08:00 101.2 121 30 131/74 94 04/07/17 08:00 98.0 66 16 158/70 97 04/07/17 04:00 98.3 71 16 127/58 94 04/07/17 00:00 99.3 57 16 159/73 95 04/06/17 22:54 97 Room Air 04/06/17 20:08 99.8 64 16 158/70 97 04/06/17 16:14 98.9 97 20 147/68 93 -: 04/07/17 0644 04/07/17 0644 Physical Exam General Appearance: Well Developed, Well Nourished Pulmonary Resp Exam: Clear Bilaterally, Breath Sounds Equal Cardiology CV Exam: Regular, Normal Sinus Rhythm Gastrointestinal/Abdomen GI Exam: Soft, Non-Tender, Bowel Sounds Present Extremeties Extremities Exam: Moderate Edema Assessment/Plan Problem List: (1) ESRD (end stage renal disease) on dialysis Plan: NO RECOVERY from ARF long standing Obstructive uropathy lead to irreversible damage hemodialysis next Tuesday notify [facility]F placement has metastatic Prostate cancer (2) Acute renal failure Plan: Metastatic Prostate Cancer HD post PermCath follow BMP no recovery (3) Uropathy, obstructive Plan: Metastatic Prostate Cancer followed by urology (4) Anemia Plan: on epogen (5) hypertension Plan: on Norvasc 10 mg/ Metoprolol Problem Qualifiers (1) Anemia: Qualified Code: D64.9 - Anemia, unspecified type Karena Duval MD Apr 07, 2017 12:57
[2017-04-07 16:00] VITALS: BP 144/67; PULSE 53; RESP 16; TEMP 99.2; O2SAT 98
[2017-04-07] MEDS: SODIUM CHLORIDE 0.9% IRRIGATION SCH (17:00)
[2017-04-07] MEDS: IRR IRRIGATION SCH (17:00)
[2017-04-07 20:00] VITALS: BP 175/73; PULSE 61; RESP 16; TEMP 99; O2SAT 97
[2017-04-08] VITALS: BP 181/79; PULSE 52; RESP 16; TEMP 98.6; O2SAT 96
[2017-04-08] MEDS: CHLORHEXIDINE GLUCONATE 2 % 1 PACK (2 CLOTHS) TOP SCH (03:57)
[2017-04-08 04:00] VITALS: BP 179/79; PULSE 62; RESP 16; TEMP 97.9; O2SAT 95
[2017-04-08 07:16] LABS: BICARBONATE 27.6 MEQ/L (21.0-32.0); POTASSIUM 4.3 MEQ/L (3.5-5.1)
[2017-04-08 08:00] VITALS: BP 179/62; PULSE 60; RESP 18; TEMP 98.5; O2SAT 93
[2017-04-08] MEDS: DOCUSATE SODIUM 50 MG/SENNA 8.6 MG TAB PO SCH ×2 (09:00→20:34)
[2017-04-08] MEDS: METOPROLOL TARTRATE 25 MG TAB PO SCH ×2 (09:05→20:29)
[2017-04-08] MEDS: CALCIUM ACETATE 667 MG CAP PO SCH ×3 (09:05→18:36)
[2017-04-08] MEDS: PANTOPRAZOLE SOD 40 MG DELAYED RELEASE TAB PO SCH (09:05)
[2017-04-08] MEDS: THIAMINE HCL 100 MG TAB PO SCH (09:05)
[2017-04-08] MEDS: CHOLECALCIFEROL (VIT D3) 5000 UNIT CAP PO SCH (09:06)
[2017-04-08] MEDS: SODIUM CHLORIDE 0.9% FLUSH 10 ML FLUSH IV FLUSH SCH ×2 (09:06→20:33)
--- NOTE | 2017-04-08 10:27 | HHI.NPPN ---
Subjective History of Present Illness 61 year old with ARF no recovery metastatic prostate Ca ESRD Review of Systems General Constitutional: Fatigue Objective Data Data 04/07/17 04/08/17 19:00 07:00 Intake Total 420 ml 550 ml Output Total 425 ml 1400 ml Balance -5 ml -850 ml Intake Oral 420 ml 550 ml Output Urine Total 425 ml 1400 ml # Voids 2 # Bowel Movements 2 0 Vital Signs Date Time Temp Pulse Resp B/P Pulse Ox O2 Delivery O2 Flow Rate FiO2 04/08/17 08:00 98.5 60 18 179/62 93 04/08/17 04:00 97.9 62 16 179/79 95 04/08/17 00:00 98.6 52 16 181/79 96 04/07/17 21:16 97 Room Air 04/07/17 20:00 99.0 61 16 175/73 97 04/07/17 16:00 99.2 53 16 144/67 98 04/07/17 12:00 99.2 54 18 191/81 95 04/07/17 11:00 Room Air -: 04/07/17 0644 04/08/17 0530 Physical Exam General Appearance: Well Developed, Well Nourished Pulmonary Resp Exam: Clear Bilaterally, Breath Sounds Equal Cardiology CV Exam: Regular, Normal Sinus Rhythm Gastrointestinal/Abdomen GI Exam: Soft, Non-Tender, Bowel Sounds Present Extremeties Extremities Exam: Moderate Edema Assessment/Plan Problem List: (1) ESRD (end stage renal disease) on dialysis Plan: NO RECOVERY from ARF long standing Obstructive uropathy leading to irreversible damage hemodialysis today insurance delays notify [facility]F placement has metastatic Prostate cancer (2) Acute renal failure Plan: Metastatic Prostate Cancer HD post PermCath follow BMP no recovery (3) Uropathy, obstructive Plan: Metastatic Prostate Cancer followed by urology (4) Anemia Plan: on epogen (5) hypertension Plan: on Norvasc 10 mg/ Metoprolol Problem Qualifiers (1) Anemia: Qualified Code: D64.9 - Anemia, unspecified type Karena Duval MD Apr 08, 2017 10:27
--- NOTE | 2017-04-08 10:58 | HHI.PR ---
Subjective Remarks No major overnight events Denies chest pain or shortness of breath BP elevated Objective Vitals Vital Signs Date Time Temp Pulse Resp B/P Pulse Ox O2 Delivery O2 Flow Rate FiO2 04/08/17 08:00 98.5 60 18 179/62 93 04/08/17 04:00 97.9 62 16 179/79 95 04/08/17 00:00 98.6 52 16 181/79 96 04/07/17 21:16 97 Room Air 04/07/17 20:00 99.0 61 16 175/73 97 04/07/17 16:00 99.2 53 16 144/67 98 04/07/17 12:00 99.2 54 18 191/81 95 04/07/17 11:00 Room Air I/O 04/07/17 04/07/17 04/07/17 04/08/17 04/08/17 04/08/17 06:59 14:59 22:59 06:59 14:59 22:59 Intake Total 250 ml 420 ml 300 ml 250 ml Output Total 400 ml 425 ml 900 ml 500 ml Balance -150 ml -5 ml -600 ml -250 ml Intake Oral 250 ml 420 ml 300 ml 250 ml Output Urine Total 400 ml 425 ml 900 ml 500 ml # Voids 2 # Bowel Movements 1 2 0 0 Result Diagram: 04/07/17 0644 04/08/17 0530 Imaging Last Impressions Abdomen CT 04/05/17 0000 Signed Impressions: Service Date/Time: Wednesday, April 05, 2017 09:06 - CONCLUSION: 1. Interval placement of double-J bilateral ureteral stents with significant interval improvement of previously noted severe bilateral hydronephrosis. Residual mild right and [id number] left hydronephrosis, as above. 2. Redemonstration of blastic osseous metastatic disease. 3. Stable small to moderate bilateral pleural effusions. Ferdinand Fisher MD Bone Biopsy CT 03/31/17 1346 Signed Impressions: Service Date/Time: March 14:07 - CONCLUSION: Uncomplicated CT guided biopsy. David Peña MD Upper Extremity Ultrasound 03/29/17 0000 Signed Impressions: Service Date/Time: Wednesday, March 29, 2017 08:43 - CONCLUSION: Normal examination. Art John MD Catheter Placement X-Ray 7/11/17 0000 Signed Impressions: Service Date/Time: Wednesday, March 29, 2017 08:50 - CONCLUSION: Uncomplicated PermaCath placement as above. Ferdinand Fisher MD Renal Ultrasound 03/25/17 Signed Impressions: Service Date/Time: Saturday, March 25, 2017 22:14 - CONCLUSION: Marked hydronephrosis, Grade IV left kidney. There is no hydronephrosis on the right. Markedly thickened bladder wall. Damien Peña MD FACR Chest X-Ray 03/22/17 Signed Impressions: Service Date/Time: Wednesday, March 22, 2017 16:05 - CONCLUSION: 1. Diffuse increased interstitial markings likely representing pulmonary edema. There is prominence of the central pulmonary vessels. 2. Hazy density bases with silhouetting hemidiaphragms from superimposed areas of consolidation/ atelectasis and effusions. Art Olivera MD Chest CT 03/21/17 Signed Impressions: Service Date/Time: Tuesday, March 21, 2017 13:03 - CONCLUSION: 1. Moderate to large bilateral pleural effusions with associated compressive atelectasis in the lower lobes. 2. Bilateral patchy somewhat nodular groundglass opacities with upper lobe predominance likely related to positive fluid balance. 3. Diffuse sclerotic metastasis to the thoracic vertebra, ribs, and left scapula. 4. Bilateral moderate to severe hydronephrosis, incompletely imaged on this exam. This is similar to yesterday's ultrasound exam. 5. 3.6 cm coarsely calcified left thyroid nodule. This can be further evaluated with thyroid ultrasound as indicated. Ferdinand Fisher MD Abdomen/Pelvis CT 03/21/17 Signed Impressions: Service Date/Time: Tuesday, March 21, 2017 13:03 - CONCLUSION: Large bladder mass with bone metastases. Small bilateral pleural effusions. Minimal retroperitoneal adenopathy. Damien Peña MD FACR Lower Extremity Ultrasound 03/20/17 Signed Impressions: Service Date/Time: Monday, March 20, 2017 17:30 - CONCLUSION: Normal examination. Sebastián Greer MD Objective Remarks AAOx3 clear lungs BL S1S2 RRR no CVA tenderness Procedures 03/31- CT guided biospy right ilium 03/29- permacath placement Medications and IVs Current Medications Medications (Trade) Dose Ordered Sig/Nasreen Route Start Time Stop Time Status Last Admin (NS Flush) 2 ml UNSCH PRN IV FLUSH 03/20/17 18:15 (NS Flush) 2 ml BID IV FLUSH 03/20/17 21:00 04/08/17 09:06 (Tylenol) 650 mg Q6H PRN PO 03/20/17 18:15 ([place] 5-325 Mg) 1 tab Q4H PRN PO 03/20/17 18:15 03/30/17 09:12 (Morphine Inj) 2 mg Q2H PRN IV PUSH 03/20/17 18:30 03/26/17 02:06 (Zofran Inj) 4 mg Q6H PRN IV 03/20/17 18:15 03/23/17 17:52 Miscellaneous Information 1 Q361D XX 03/20/17 18:15 03/20/17 21:46 (Chlorhexidine 2% Cloth) Taper DAILY@04 TOP 03/21/17 04:00 03/17/18 03:59 04/02/17 04:00 (Chlorhexidine 2% Cloth) 3 pack UNSCH PRN TOP 03/20/17 18:15 (Negin-Colace) 1 tab BID PO 03/20/17 21:00 04/05/17 08:10 (Milk Of Magnesia Liq) 30 ml Q12H PRN PO 03/20/17 18:15 04/04/17 09:04 (Senokot) 17.2 mg Q12H PRN PO 03/20/17 18:15 (Dulcolax Supp) 10 mg DAILY PRN RECTAL 03/20/17 18:15 04/05/17 08:12 (Lactulose Liq) 30 ml DAILY PRN PO 03/20/17 18:15 04/03/17 17:28 Calcium Acetate 667 mg 667 mg TID PO 03/21/17 18:00 04/08/17 09:05 Sodium Chloride 1,000 ml @ 0 mls/hr Q0M PRN IV 03/22/17 11:58 03/25/17 14:07 Sodium Chloride 1,000 ml @ 200 mls/hr Q5H PRN IV 03/22/17 11:58 04/02/17 11:01 (NS 1000 ml Inj) 1,000 ml @ 0 mls/hr Q0M PRN IV 03/22/17 11:58 (Mannitol Inj) 12.5 gm UNSCH PRN IV 03/22/17 12:00 (Albumin 25% Inj) 25 gm UNSCH PRN IV 03/22/17 12:00 (NS Flush) 5 ml UNSCH PRN IV FLUSH 03/22/17 12:00 (Heparin Inj) UNSCH PRN .XX 03/22/17 12:00 04/02/17 11:01 (Gentamicin (Dialysis) Inj) 20 mg UNSCH PRN IV 03/22/17 12:00 04/02/17 11:01 (Zofran Inj) 4 mg UNSCH PRN IV 03/22/17 12:00 (Tylenol) 650 mg UNSCH PRN PO 03/22/17 12:00 (Benadryl) 25 mg UNSCH PRN PO 03/22/17 12:00 (Nitrostat Sl) 0.4 mg UNSCH PRN SL 03/22/17 12:00 (Catapres) 0.1 mg UNSCH PRN PO 03/22/17 12:00 (Epogen Inj) 10,000 units UNSCH PRN IV 03/22/17 12:00 03/25/17 14:06 (Gelfoam 12 Mm/7 Mm Top) 1 foam UNSCH PRN TOP 03/22/17 12:00 Cholecalciferol 5000 units 5,000 units DAILY PO 03/23/17 09:00 04/08/17 09:06 (NS Irr Bag) 3,000 ml @ 125.5 mls/ hr Q24H IRRIGATION 03/23/17 17:00 03/31/17 17:00 (Narcan Inj) 0.4 mg Q2M PRN IV PUSH 03/23/17 17:00 (Vitamin B1) 100 mg DAILY PO 03/26/17 11:45 04/08/17 09:05 (Romazicon Inj) 0.2 mg Q1M PRN IV PUSH 03/26/17 11:30 (Ativan) 1 mg Q4H PRN PO 03/26/17 11:30 03/27/17 10:52 (Ativan Inj) 1 mg Q4H PRN IV PUSH 03/26/17 11:30 (Ativan) 2 mg Q2H PRN PO 03/26/17 11:30 03/28/17 00:15 (Ativan Inj) 2 mg Q2H PRN IV PUSH 03/26/17 11:30 (Ativan Inj) 2 mg Q1H PRN IV PUSH 03/26/17 11:30 (Ativan Inj) 2 mg Q15M PRN IV PUSH 03/26/17 11:30 (Haldol Inj) 2 mg Q15M PRN IM 03/26/17 11:30 (NS Flush) UNSCH PRN IVF 03/29/17 10:00 (Heparin Inj) UNSCH PRN IV FLUSH 03/29/17 10:00 (Protonix) 40 mg DAILY PO 04/03/17 09:00 04/08/17 09:05 (Norvasc) 10 mg DAILY PO 04/05/17 09:00 04/08/17 09:06 (Lopressor) 12.5 mg Q12HR PO 04/04/17 21:00 04/08/17 09:05 (Pill Splitter) 1 ea UNSCH PRN OTHER 04/04/17 11:00 (Cardura) 2 mg DAILY PO 04/08/17 11:00 (Casodex) 50 mg DAILY PO 04/09/17 09:00 Urinary Catheter: Yes Assessment to: Continue Pollock insert reason: Obstruction/Retention A/P Problem List: (1) obstructive uropathy, renal failure Status: Acute (2) Bladder mass ICD Code: N32.89 Status: Acute (3) apparent bony metastases, elevated PSA, suspected prostate cancer Status: Acute (4) acute renal failure, on dialysis Status: Acute (5) hypertension Status: Chronic (6) Anemia due to acute blood loss ICD Code: D62 Status: Acute Assessment and Plan (1) obstructive uropathy, renal failure Plan: Patient presented with acute kidney injury secondary to obstructive uropathy due to bladder mass. 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 The patient underwent cystoscopy with ureteral stenting on 03/[address] Fine The patient currently on hemodialysis since 03/22. Maintain Pollock catheter. as per urology hemodialysis should be without heparin (2) Bladder mass Status: Acute Plan: Patient had a repeat cystoscopy with fulguration of bleeding sites urinary bladder on 03/24. CT abdomen/pelvis obtained on shows resolution of bilateral hydronephrosis with bilateral JJ stent insertion with folding place. Appreciate input from urology, nephrology, oncology and palliative care medicine. (3) Metastatic prostate Cancer Plan: Status post biopsy of the left iliac crest lesion as detailed above, positive for metastatic carcinoma of the prostate. Follow-up oncology recommendations - patient started on Bicalutamide as per oncology. 04/08 Palliative Care following (4) acute renal failure, on dialysis Plan: Secondary to obstructive uropathy, due to bladder mass. Creatinine not recovering and patient now hemodialysis dependent. Follow-up nephrology recommendations (5) hypertension Plan: Blood pressure seems to be elevated in the 150s and 160s systolic. Patient on Norvasc and metoprolol however did not get this medications since he was on hemodialysis. 04/08 blood pressure still severely uncontrolled and persistently elevated into the systolic blood pressure 180s. I will start the patient on doxazosin 2 mg by mouth daily and adjust the dose accordingly. (6) Anemia due to acute blood loss Plan: Anemia secondary to hematuria and possible metastases. Hematology consulted. Input appreciated. Status post transfusion of 8 units of PRBCs since admission. Continue to monitor hemoglobin hemoglobin GI prophylaxis: Continue Protonix. DVT prophylaxis: SCDs, no chemoprophylaxis given recent severe blood loss anemia. Discharge Planning SSI pending. Will need hemodialysis upon discharge. Jersey Arrieta MD Apr 08, 2017 10:58
[2017-04-08 12:00] VITALS: BP 159/70; PULSE 53; RESP 18; TEMP 97.1; O2SAT 98
--- NOTE | 2017-04-08 13:26 | HHI.HCPN ---
Reason for visit a. To assist with evaluation and management of symptoms including: Dyspnea, fatigue/weakness b. To assist medical decision maker(s) with: better understanding of current medical conditions; weighing benefits/burdens of medical treatment options; making medical treatment decisions. . Subjective/Interval History Mr. Ross is a 61-year-old male who presented with acute kidney injury secondary to obstructive uropathy due to bladder mass. 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 Patient with end-stage renal disease requiring renal replacement therapy. As per nephrology, no recovery. Palliative care f/u for further clarifications of goals of care given biopsy results. Patient was seen in his room. Resting in bed in no acute distress. Alert and oriented x self, place and situation. Verbal, communicating needs. Patient denies pain, shortness of breath, nausea/vomiting or abdominal discomfort. He remains afebrile, hypertensive with SBP in the 170s. On room air, oxygen saturation in the high 90s. Laboratory today showing WBC 11.6, Hgb 8.7, platelet count 221. BUN/creatinine 55/6.96. Potassium 4.3. Patient hemodialysis dependent. Patient tells me that he spoke with Dr. Arceo this morning regarding bone biopsy pathology confirming metastatic prostate cancer. Patient has elected to proceed with antiandrogen hormonal therapy. Patient wishing to continue with outpatient hemodialysis, Vas-Cath in place. Reported that he is declining AV fistula placement as he is still hopeful that his kidneys will "wake up" and started working again. Reviewed with patient that as per nephrology, no renal recovery anticipated. Patient tells me that his current applied by ear and reassess the need for AV fistula in the future. 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 Patient reports that upon discharge, he will be going to his ex-'s house for a few days while he requires some assistance. Patient wishing to remain no code at this time but declined completing community DNR. Reviewed designation of healthcare surrogate completed on 03/20/17, patient wishing to make no changes. Patient had no further questions are concerns. . Family/friend interactions No family at bedside during my visit. . Advance Directives Living Will: Never completed Health Care Surrogate: Never completed Durable Power of Turf Sales Person: Never completed Advance Directive Specifics Health Care Surrogate(s): Patient is now naming his daughter Lisa and son Frank as co-HCS. . Significant change in goals: No code. Patient electing to continue with aggressive management short of no code to include hemodialysis and hormonal therapy for metastatic prostate cancer. . Objective Vital Signs Date Time Temp Pulse Resp B/P Pulse Ox O2 Delivery O2 Flow Rate FiO2 04/08/17 09:15 93 Room Air 04/08/17 08:00 98.5 60 18 179/62 93 04/08/17 04:00 97.9 62 16 179/79 95 04/08/17 00:00 98.6 52 16 181/79 96 04/07/17 21:16 97 Room Air 04/07/17 20:00 99.0 61 16 175/73 97 04/07/17 16:00 99.2 53 16 144/67 98 Intake & Output 04/08/17 04/08/17 06:59 18:59 Intake Total 550 ml Output Total 1400 ml 825 ml Balance -850 ml -825 ml Intake Oral 550 ml Output Urine Total 1400 ml 825 ml # Bowel Movements 0 Physical Exam CONSTITUTIONAL/GENERAL: This is a thin male in no apparent distress. TUBES/LINES/DRAINS: Vas-Cath to right chest, Pollock catheter. SKIN: No jaundice, rashes, or lesions. Ecchymoses on upper extremities. No wounds seen anteriorly. Skin temperature appropriate. Not diaphoretic. HEAD: Atraumatic. Normocephalic. EYES: Pupils equal and round and reactive. Extraocular motions intact. No scleral icterus. No injection or drainage. ENT: Hearing grossly normal. Nose without bleeding or purulent drainage. Moist oral mucosa. CARDIOVASCULAR: Regular rate and rhythm. Peripheral pulses symmetric. RESPIRATORY/CHEST: Symmetric, unlabored respirations. Clear to auscultation. GASTROINTESTINAL: Abdomen soft, non-tender, nondistended. No guarding. Bowel sounds present. GENITOURINARY: Pollock catheter in place NEUROLOGICAL: Awake and alert. Motor and sensory grossly within normal limits. Follows commands. Cognitively sharp. Moves all extremities. PSYCHIATRIC: Calm. Pleasant and cooperative. . Diagnostic Tests Laboratory Laboratory Tests Test 04/06/17 04/07/17 04/08/17 06:01 06:44 05:30 White Blood Count 12.4 TH/MM3 11.6 TH/MM3 (4.0-11.0) (4.0-11.0) Red Blood Count 3.03 MIL/MM3 2.92 MIL/MM3 (4.50-5.90) (4.50-5.90) Hemoglobin 9.0 GM/DL 8.7 GM/DL (13.0-17.0) (13.0-17.0) Hematocrit 27.0 % 26.1 % (39.0-51.0) (39.0-51.0) Mean Corpuscular Volume 88.9 FL 89.6 FL (80.0-100.0) (80.0-100.0) Mean Corpuscular Hemoglobin 29.5 PG 29.7 PG (27.0-34.0) (27.0-34.0) Mean Corpuscular Hemoglobin 33.2 % 33.1 % Concent (32.0-36.0) (32.0-36.0) Red Cell Distribution Width 16.6 % 16.7 % (11.6-17.2) (11.6-17.2) Platelet Count 220 TH/MM3 221 TH/MM3 (150-450) (150-450) Mean Platelet Volume 8.3 FL 8.0 FL (7.0-11.0) (7.0-11.0) Neutrophils (%) (Auto) 57.5 % (16.0-70.0) Lymphocytes (%) (Auto) 29.4 % (9.0-44.0) Monocytes (%) (Auto) 6.7 % (0.0-8.0) Eosinophils (%) (Auto) 5.2 % (0.0-4.0) Basophils (%) (Auto) 1.2 % (0.0-2.0) Neutrophils # (Auto) 7.1 TH/MM3 (1.8-7.7) Lymphocytes # (Auto) 3.6 TH/MM3 (1.0-4.8) Monocytes # (Auto) 0.8 TH/MM3 (0-0.9) Eosinophils # (Auto) 0.6 TH/MM3 (0-0.4) Basophils # (Auto) 0.1 TH/MM3 (0-0.2) CBC Comment DIFF FINAL Differential Comment Sodium Level 137 MEQ/L 136 MEQ/L 136 MEQ/L (136-145) (136-145) (136-145) Potassium Level 4.3 MEQ/L 4.4 MEQ/L 4.3 MEQ/L (3.5-5.1) (3.5-5.1) (3.5-5.1) Chloride Level 101 MEQ/L 99 MEQ/L 100 MEQ/L (98-107) (98-107) (98-107) Carbon Dioxide Level 25.0 MEQ/L 27.1 MEQ/L 27.6 MEQ/L (21.0-32.0) (21.0-32.0) (21.0-32.0) Anion Gap 11 MEQ/L (5-15) 10 MEQ/L (5-15) 8 MEQ/L (5-15) Blood Urea Nitrogen 66 MG/DL (7-18) 43 MG/DL (7-18) 55 MG/DL (7-18) Creatinine 7.38 MG/DL 5.48 MG/DL 6.96 MG/DL (0.60-1.30) (0.60-1.30) (0.60-1.30) Estimat Glomerular Filtration 8 ML/MIN (>89) 11 ML/MIN (>89) 8 ML/MIN (>89) Rate Random Glucose 79 MG/DL 83 MG/DL 88 MG/DL (74-106) (74-106) (74-106) Calcium Level 8.1 MG/DL 8.1 MG/DL 8.4 MG/DL (8.5-10.1) (8.5-10.1) (8.5-10.1) Phosphorus Level 2.8 MG/DL (2.5-4.9) Albumin 2.1 GM/DL (3.4-5.0) Result Diagram: 04/07/17 0644 04/08/17 0530 Procedures Cystoscopy, bilateral ureteral stents 03/23/17 Cystoscopy with fulguration 03/24/17 Permacath placement 03/29/17 Left iliac bone biopsy 03/31/17 . 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 Spiritual: The patient has a Rastafarian background, but is not affiliated with any particular muslim or clergy. He does not want distillation operator helper visits during this hospitalization. Legal: The patient has capacity for decision-making at this time. He is designating his daughter Lisa Ely and son Frank Ross has co-HCS. Ethical issues impacting care: None . Important Contacts Daughter: Christin Ely [phone] Son: Frank Ross [phone] . Prognosis Patient with confirmed metastatic prostate cancer and end-stage renal failure requiring hemodialysis, no renal recovery as per nephrology. Patient at a very high risk for further decline, acute complications and . . Code Status: No Code Plan * CODE STATUS: DNR/DNI. Patient wishing to remain no code at this time but declined completing community DNR. * HEALTHCARE DECISION-MAKING: Patient participating in medical decision-making. Designation of healthcare surrogate completed. Patient designated daughter Lisa Ely and son Frank Ross as co-HCS. * GOALS OF CARE: Patient electing to continue with aggressive management short of no code to include hemodialysis and hormonal therapy for metastatic prostate cancer. Patient declining AV fistula at this time while waiting for his kidneys to "wake up". Discussed with patient that as per nephrology, no renal recovery is anticipated = long-term hemodialysis. The future role of hospice has been discussed with patient should he decides to stop HD or in the setting of increased symptom burden, further complications or continue decline. * SYMPTOMS: = Fatigue and overall debility, exacerbated by acute illness and prolonged hospitalization. Patient denies any pain. Dyspnea has resolved. * Case discussed with oncology, PEGGY Ramos. * Palliative Care contact information has been provided to patient and family. * Active listening provided. * Palliative care will continue to follow-up as needed for further clarifications of goals of care as patient's clinical course continues to evolve. . Time Spent Total Floor Time (mins): 42 (Total time to include review and summarization of available medical records, physical exam, goals of care conversation with patient, case discussion with PEGGY Ramos. ) >50% Counseling/Coord of Care: Yes Attestation To help prompt me to consider important information that might be impacting today's encounter and assessment, information from prior notes written by myself or my colleagues may have been "brought forward" into today's note. My signature on this note, however, is an attestation that I personally performed the exam, history, and/or decision-making noted today, and, unless otherwise indicated, the interactions with patient, family, and staff as well as the review of records all occurred today. I also attest that the listed assessment and stated plan reflect my best clinical judgment today based on the combination of historical information, prior notes, and today's exam/ interactions. When time spent is documented, it refers only to time spent today by the signer, or if indicated, combined time spent today by collaborating physician/nurse practitioner. Yana Saldivar Apr 08, 2017 13:26
[2017-04-08] MEDS ORDERED: BICA50TA PO (14:19)
--- NOTE | 2017-04-08 14:23 | PD.ONC.PN ---
Subjective Subjective Remarks Afebrile overnight. Patient resting in bed in nad. Eager to go home. Objective Data Date Time Temp Pulse Resp B/P Pulse Ox O2 Delivery O2 Flow Rate FiO2 04/08/17 12:00 97.1 53 18 159/70 98 04/08/17 09:15 93 Room Air 04/08/17 08:00 98.5 60 18 179/62 93 04/08/17 04:00 97.9 62 16 179/79 95 04/08/17 00:00 98.6 52 16 181/79 96 04/07/17 21:16 97 Room Air 04/07/17 20:00 99.0 61 16 175/73 97 04/07/17 16:00 99.2 53 16 144/67 98 04/08/17 04/08/17 04/08/17 07:00 15:00 23:00 Intake Total 250 ml Output Total 500 ml 825 ml Balance -250 ml -825 ml Result Diagram: 04/07/17 0644 04/08/17 0530 Laboratory Results Laboratory Tests Test 04/08/17 05:30 Sodium Level 136 MEQ/L Potassium Level 4.3 MEQ/L Chloride Level 100 MEQ/L Carbon Dioxide Level 27.6 MEQ/L Anion Gap 8 MEQ/L Blood Urea Nitrogen 55 MG/DL Creatinine 6.96 MG/DL Estimat Glomerular Filtration 8 ML/MIN Rate Random Glucose 88 MG/DL Calcium Level 8.4 MG/DL Administered Medications Medications (Trade) Dose Ordered Sig/Nasreen Route PRN Reason Start Time Stop Time Status Last Admin Dose Admin Sodium Chloride (NS Flush) 2 ml BID IV FLUSH 03/20/17 21:00 04/08/17 09:06 Acetaminophen/ Hydrocodone Bitart ([place] 5-325 Mg) 1 tab Q4H PRN PO PAIN SCALE 1 TO 5 03/20/17 18:15 03/30/17 09:12 Morphine Sulfate (Morphine Inj) 2 mg Q2H PRN IV PUSH PAIN 6-10 03/20/17 18:30 03/26/17 02:06 Ondansetron HCl (Zofran Inj) 4 mg Q6H PRN IV NAUSEA OR VOMITING 03/20/17 18:15 03/23/17 17:52 Miscellaneous Information 1 Q361D XX 03/20/17 18:15 03/20/17 21:46 Chlorhexidine Gluconate (Chlorhexidine 2% Cloth) Taper DAILY@04 TOP 03/21/17 04:00 03/17/18 03:59 04/02/17 04:00 Senna/Docusate Sodium (Negin-Colace) 1 tab BID PO 03/20/17 21:00 04/05/17 08:10 Magnesium Hydroxide (Milk Of Magnesia Liq) 30 ml Q12H PRN PO MILD - MODERATE CONSTIPATION 03/20/17 18:15 04/04/17 09:04 Bisacodyl (Dulcolax Supp) 10 mg DAILY PRN RECTAL SEVERE CONSITIPATION 03/20/17 18:15 04/05/17 08:12 Lactulose (Lactulose Liq) 30 ml DAILY PRN PO SEVERE CONSITIPATION 03/20/17 18:15 04/03/17 17:28 Calcium Acetate 667 mg 667 mg TID PO 03/21/17 18:00 04/08/17 12:48 Sodium Chloride 1,000 ml @ 0 mls/hr Q0M PRN IV For Prime & Rinse Back 03/22/17 11:58 03/25/17 14:07 Sodium Chloride (NS 1000 ml Inj) 1,000 ml @ 200 mls/hr Q5H PRN IV WITH DIALYSIS 03/22/17 11:58 04/02/17 11:01 Heparin Sodium (Porcine) (Heparin Inj) UNSCH PRN .XX WITH DIALYSIS 03/22/17 12:00 04/02/17 11:01 Gentamicin Sulfate (Gentamicin (Dialysis) Inj) 20 mg UNSCH PRN IV WITH DIALYSIS 03/22/17 12:00 04/02/17 11:01 Epoetin Hermes (Epogen Inj) 10,000 units UNSCH PRN IV WITH DIALYSIS 03/22/17 12:00 03/25/17 14:06 Cholecalciferol 5000 units 5,000 units DAILY PO 03/23/17 09:00 04/08/17 09:06 Sodium Chloride (NS Irr Bag) 3,000 ml @ 125.5 mls/ hr Q24H IRRIGATION 03/23/17 17:00 03/31/17 17:00 Thiamine HCl (Vitamin B1) 100 mg DAILY PO 03/26/17 11:45 04/08/17 09:05 Lorazepam (Ativan) 1 mg Q4H PRN PO [facility] 8 - 10 03/26/17 11:30 03/27/17 10:52 Lorazepam (Ativan) 2 mg Q2H PRN PO [facility] 11-14 03/26/17 11:30 03/28/17 00:15 Pantoprazole Sodium (Protonix) 40 mg DAILY PO 04/03/17 09:00 04/08/17 09:05 Amlodipine Besylate (Norvasc) 10 mg DAILY PO 04/05/17 09:00 04/08/17 09:06 Metoprolol Tartrate (Lopressor) 12.5 mg Q12HR PO 04/04/17 21:00 04/08/17 09:05 Objective Remarks GENERAL: Middle aged male upright in bed SKIN: Warm and dry. perma-cath in place. HEAD: Normocephalic. EYES: No scleral icterus. No injection or drainage. NECK: Supple, trachea midline. CARDIOVASCULAR: Regular rate and rhythm RESPIRATORY: Breath sounds equal bilaterally. No accessory muscle use. GASTROINTESTINAL: Abdomen soft, non-tender, nondistended. EXTREMITIES: No cyanosis NEUROLOGICAL: No obvious focal deficit. Awake, alert, and oriented x3. Assessment/Plan Problem List: (1) Bladder mass Status: Acute Plan: 04/08: pathology shows metastatic prostate cancer. pathology reviewed with patient and plan to start hormonal blockade therapy outpatient. fs faxed to new patient referrals for follow up next Tuesday. will discharge on Casodex and give Lupron in clinic. PSA elevated CT ab/pelvis: + bladder mass with bony mets. CT chest: bilateral pleural effusions. + bony mets to thoracic vertebra, ribs, left scapula (2) Anemia Status: Acute Plan: --transfuse as needed --hemoccult negative --keren negative --no sign of hemolysis. --slightly elevated retic count, no sign of iron deficiency Assessment 61y/o male with prostate cancer Attending Statement no new c/o D/W pt bx result. He has stage IV mets prostate ca. Discuss treatment vs BSC with hospice. He desires treatment. Recommend Complete androgen blockade therapy. start Casodex. After 1-2 weeks will give lupron as outpt. Ok to d./c home. Fu as outpt next week tue. Problem Qualifiers (1) Anemia: Qualified Code: D64.9 - Anemia, unspecified type Raquel Stephens Apr 08, 2017 14:23 Cam Arceo MD Apr 08, 2017 17:11
--- NOTE | 2017-04-08 14:33 | HHI.PR ---
Subjective Patient symptoms today Pt seen and examined. Desires to go home. Urine clear. Iliac BX c/w metastatic prostate cancer. Objective Vital Signs Vital Signs Date Time Temp Pulse Resp B/P Pulse Ox O2 Delivery O2 Flow Rate FiO2 04/08/17 12:00 97.1 53 18 159/70 98 04/08/17 09:15 93 Room Air 04/08/17 08:00 98.5 60 18 179/62 93 04/08/17 04:00 97.9 62 16 179/79 95 04/08/17 00:00 98.6 52 16 181/79 96 04/07/17 21:16 97 Room Air 04/07/17 20:00 99.0 61 16 175/73 97 04/07/17 16:00 99.2 53 16 144/67 98 Intake & Output 04/08/17 04/08/17 07:00 19:00 Intake Total 550 ml Output Total 1400 ml 825 ml Balance -850 ml -825 ml Intake Oral 550 ml Output Urine Total 1400 ml 825 ml # Bowel Movements 0 Result Diagram: 04/07/17 0644 04/08/17 0530 Objective Remarks Abd:soft, tender over bladder Ext:2+ edema 03/23 Abd: soft,nt,nd Carson: blood tinged on Amicar CBI 03/[address] draining clear urine Abdomen soft, nondistended, nontender 04/04 Abd:soft,nt,nd Carson: urine clear; off Amicar 04/05 Abd:soft,nt,nd Urine clear Moving bowels 04/06 Abd:soft,nt,nd Urine clear 04/07 Abd:soft,nt,nd Urine clear 04/08 Abd:soft,nt,nd Urine clear Medications and IVs Current Medications Medications (Trade) Dose Ordered Sig/Nasreen Route Start Time Stop Time Status Last Admin (NS Flush) 2 ml UNSCH PRN IV FLUSH 03/20/17 18:15 (NS Flush) 2 ml BID IV FLUSH 03/20/17 21:00 04/08/17 09:06 (Tylenol) 650 mg Q6H PRN PO 03/20/17 18:15 ([place] 5-325 Mg) 1 tab Q4H PRN PO 03/20/17 18:15 03/30/17 09:12 (Morphine Inj) 2 mg Q2H PRN IV PUSH 03/20/17 18:30 03/26/17 02:06 (Zofran Inj) 4 mg Q6H PRN IV 03/20/17 18:15 03/23/17 17:52 Miscellaneous Information 1 Q361D XX 03/20/17 18:15 03/20/17 21:46 (Chlorhexidine 2% Cloth) Taper DAILY@04 TOP 03/21/17 04:00 03/17/18 03:59 04/02/17 04:00 (Chlorhexidine 2% Cloth) 3 pack UNSCH PRN TOP 03/20/17 18:15 (Negin-Colace) 1 tab BID PO 03/20/17 21:00 04/05/17 08:10 (Milk Of Magnesia Liq) 30 ml Q12H PRN PO 03/20/17 18:15 04/04/17 09:04 (Senokot) 17.2 mg Q12H PRN PO 03/20/17 18:15 (Dulcolax Supp) 10 mg DAILY PRN RECTAL 03/20/17 18:15 04/05/17 08:12 (Lactulose Liq) 30 ml DAILY PRN PO 03/20/17 18:15 04/03/17 17:28 Calcium Acetate 667 mg 667 mg TID PO 03/21/17 18:00 04/08/17 12:48 Sodium Chloride 1,000 ml @ 0 mls/hr Q0M PRN IV 03/22/17 11:58 03/25/17 14:07 Sodium Chloride 1,000 ml @ 200 mls/hr Q5H PRN IV 03/22/17 11:58 04/02/17 11:01 (NS 1000 ml Inj) 1,000 ml @ 0 mls/hr Q0M PRN IV 03/22/17 11:58 (Mannitol Inj) 12.5 gm UNSCH PRN IV 03/22/17 12:00 (Albumin 25% Inj) 25 gm UNSCH PRN IV 03/22/17 12:00 (NS Flush) 5 ml UNSCH PRN IV FLUSH 03/22/17 12:00 (Heparin Inj) UNSCH PRN .XX 03/22/17 12:00 04/02/17 11:01 (Gentamicin (Dialysis) Inj) 20 mg UNSCH PRN IV 03/22/17 12:00 04/02/17 11:01 (Zofran Inj) 4 mg UNSCH PRN IV 03/22/17 12:00 (Tylenol) 650 mg UNSCH PRN PO 03/22/17 12:00 (Benadryl) 25 mg UNSCH PRN PO 03/22/17 12:00 (Nitrostat Sl) 0.4 mg UNSCH PRN SL 03/22/17 12:00 (Catapres) 0.1 mg UNSCH PRN PO 03/22/17 12:00 (Epogen Inj) 10,000 units UNSCH PRN IV 03/22/17 12:00 03/25/17 14:06 (Gelfoam 12 Mm/7 Mm Top) 1 foam UNSCH PRN TOP 03/22/17 12:00 Cholecalciferol 5000 units 5,000 units DAILY PO 03/23/17 09:00 04/08/17 09:06 (NS Irr Bag) 3,000 ml @ 125.5 mls/ hr Q24H IRRIGATION 03/23/17 17:00 03/31/17 17:00 (Narcan Inj) 0.4 mg Q2M PRN IV PUSH 03/23/17 17:00 (Vitamin B1) 100 mg DAILY PO 03/26/17 11:45 04/08/17 09:05 (Romazicon Inj) 0.2 mg Q1M PRN IV PUSH 03/26/17 11:30 (Ativan) 1 mg Q4H PRN PO 03/26/17 11:30 03/27/17 10:52 (Ativan Inj) 1 mg Q4H PRN IV PUSH 03/26/17 11:30 (Ativan) 2 mg Q2H PRN PO 03/26/17 11:30 03/28/17 00:15 (Ativan Inj) 2 mg Q2H PRN IV PUSH 03/26/17 11:30 (Ativan Inj) 2 mg Q1H PRN IV PUSH 03/26/17 11:30 (Ativan Inj) 2 mg Q15M PRN IV PUSH 03/26/17 11:30 (Haldol Inj) 2 mg Q15M PRN IM 03/26/17 11:30 (NS Flush) UNSCH PRN IVF 03/29/17 10:00 (Heparin Inj) UNSCH PRN IV FLUSH 03/29/17 10:00 (Protonix) 40 mg DAILY PO 04/03/17 09:00 04/08/17 09:05 (Norvasc) 10 mg DAILY PO 04/05/17 09:00 04/08/17 09:06 (Lopressor) 12.5 mg Q12HR PO 04/04/17 21:00 04/08/17 09:05 (Pill Splitter) 1 ea UNSCH PRN OTHER 04/04/17 11:00 (Cardura) 2 mg DAILY PO 04/08/17 11:00 (Casodex) 50 mg DAILY PO 04/09/17 09:00 Assessment and Plan Assessment and Plan 61-year-old male with acute renal failure and evidence of bladder outlet obstruction with elevated PSA and family history of prostate cancer. Maintain Carson catheter and monitor for postobstructive diuresis. Holding replacement fluids at present due to evidence of pulmonary edema on chest x-ray. CT scan ordered for later today. We'll start Flomax in the future once his creatinine starts to baseline. Once Carson catheter has been removed and he is voiding we'll need to repeat PSA at that time. We'll follow with you. Thank you for the consult and allowing me to participate in the care of this patient. 03/22 61-year-old male with acute renal failure and evidence of bladder outlet obstruction with elevated PSA and family history of prostate cancer with blastic lesions of pelvis on CT scan For cysto/clot evacuation/RPG's with possible stents and bladder bx with fulguration if necessary in OR today NPO Risks and benefits discussed with pt and daughter at bedside. 03/23 61-year-old male with acute renal failure and evidence of bladder outlet obstruction with elevated PSA and family history of prostate cancer with blastic lesions of pelvis on CT scan s/p cystoscopy with clot evacuation and b/ l JJ stent insertion Continue Amicar CBI Irrigate prn Will need PNBx in the future after ARF has resolved and overall condition is improved. Maybe done as outpt. 03/28 Resolved gross hematuria Maintain Carson catheter to gravity drainage Will eventually require transrectal ultrasound and prostate needle biopsy to confirm diagnosis of prostate cancer, this may be performed as an outpatient. 04/04 61 y.o male with ARF/gross hematuria/elevated PSA with probable CaP with h/o left hydronephrosis after b/l stent insertion Will obtain CT scan to evaluate resolution of left hydronephrosis PNBx as outpt. 04/05 61 y.o male with ARF/gross hematuria/elevated PSA with probable CaP with h/o left hydronephrosis after b/l stent insertion CT scan showing resolution of bilateral hydronephrosis with bilateral JJ stent insertion with carson in place Gross hematuria has resolved-off Amicar Elevated PSA: PNBX in the future. 04/06 61 y.o male with ARF/Gross hematuria and elevated PSA. Will need outpt PNBX Maintain carson catheter Leg bag teaching 04/07 61 y.o male with ARF/Gross hematuria and elevated PSA. Will need outpt PNBX Maintain carson catheter Leg bag teaching Outpatient dialysis to be done without using heparin please 04/08 61 y.o male with ARF/Gross hematuria and newly diagnosed metastatic prostate cancer Continue carson and d/c in place. F/U mid April for void trial Leg bag teaching Start Flomax now for void trial in future Zion Fine DO Apr 08, 2017 14:33
[2017-04-08] MEDS: SODIUM CHLORIDE 0.9% IRRIGATION SCH (16:34)
[2017-04-08] MEDS: IRR IRRIGATION SCH (16:34)
[2017-04-08] MEDS: DOXAZOSIN MESYLATE 2 MG TAB PO SCH (18:35)
[2017-04-08] MEDS: TAMSULOSIN HCL 0.4 MG CAP PO SCH (18:36)
[2017-04-08 20:00] VITALS: BP 158/73; PULSE 55; RESP 17; TEMP 98.5; O2SAT 98
[2017-04-09] VITALS: BP 174/77; PULSE 57; RESP 16; TEMP 99.6; O2SAT 97
[2017-04-09 04:00] VITALS: BP 138/63; PULSE 58; RESP 16; TEMP 98.7; O2SAT 97
[2017-04-09] MEDS: CHLORHEXIDINE GLUCONATE 2 % 1 PACK (2 CLOTHS) TOP SCH (04:00)
[2017-04-09 07:14] LABS: AUTOMATED NEUTROPHIL # 5.9 TH/MM3 (1.8-7.7); BASOPHIL # 0.2 TH/MM3 (0-0.2); BASOPHIL % 1.8 % (0.0-2.0); EOSINOPHIL # 0.6 TH/MM3 (0-0.4); EOSINOPHIL % 5.8 % (0.0-4.0); HEMATOCRIT 28.3 % (39.0-51.0); HEMO FLAGS DIFF FINAL; LYMPH % 29.4 % (9.0-44.0); LYMPHOCYTE # 3.1 TH/MM3 (1.0-4.8); MEAN CELL VOLUME 89.4 FL (80.0-100.0); MEAN CORPUSCULAR HEMOGLOBIN 29.7 PG (27.0-34.0); MEAN CORPUSCULAR HGB CONC 33.2 % (32.0-36.0); MONO % 7.7 % (0.0-8.0); NEUT % 55.3 % (16.0-70.0); PLATELET COUNT 236 TH/MM3 (150-450); RED BLOOD COUNT 3.16 MIL/MM3 (4.50-5.90); RED CELL DISTRIBUTION WIDTH 16.9 % (11.6-17.2); WHITE BLOOD COUNT 10.7 TH/MM3 (4.0-11.0)
[2017-04-09 08:00] VITALS: BP 173/74; PULSE 51; RESP 18; TEMP 98.6; O2SAT 97
[2017-04-09] MEDS: DOCUSATE SODIUM 50 MG/SENNA 8.6 MG TAB PO SCH ×2 (09:00→22:08)
[2017-04-09] MEDS: DOXAZOSIN MESYLATE 2 MG TAB PO SCH (09:00)
[2017-04-09] MEDS: BICALUTAMIDE 50 MG TAB PO SCH (09:00)
[2017-04-09] MEDS: CALCIUM ACETATE 667 MG CAP PO SCH ×3 (09:35→18:38)
[2017-04-09] MEDS: THIAMINE HCL 100 MG TAB PO SCH (09:37)
[2017-04-09] MEDS: PANTOPRAZOLE SOD 40 MG DELAYED RELEASE TAB PO SCH (09:37)
[2017-04-09] MEDS: CHOLECALCIFEROL (VIT D3) 5000 UNIT CAP PO SCH (09:38)
[2017-04-09] MEDS: METOPROLOL TARTRATE 25 MG TAB PO SCH ×2 (09:38→21:00)
[2017-04-09] MEDS: TAMSULOSIN HCL 0.4 MG CAP PO SCH (09:38)
[2017-04-09] MEDS: SODIUM CHLORIDE 0.9% FLUSH 10 ML FLUSH IV FLUSH SCH ×2 (09:41→22:09)
--- NOTE | 2017-04-09 10:54 | HHI.NPPN ---
Subjective History of Present Illness 61 year old with ARF no recovery metastatic prostate Ca ESRD Additional Remarks Patient is alert, no SOB, doing better. Review of Systems General Constitutional: Fatigue Objective Data Data 04/08/17 04/09/17 19:00 07:00 Intake Total 960 ml Output Total 2825 ml 900 ml Balance -2825 ml 60 ml Intake Oral 960 ml Output Urine Total 825 ml 900 ml Hemodialysis 2000 ml # Bowel Movements 1 Vital Signs Date Time Temp Pulse Resp B/P Pulse Ox O2 Delivery O2 Flow Rate FiO2 04/09/17 08:00 98.6 51 18 173/74 97 04/09/17 04:00 98.7 58 16 138/63 97 04/09/17 00:00 99.6 57 16 174/77 97 04/08/17 20:33 Room Air 04/08/17 20:00 98.5 55 17 158/73 98 04/08/17 16:23 04/08/17 12:00 97.1 53 18 159/70 98 -: 04/09/17 0518 04/08/17 0530 Physical Exam General Appearance: Well Developed, Well Nourished, No Acute Distress, Comfortable Pulmonary Resp Exam: Clear Bilaterally, Breath Sounds Equal Cardiology CV Exam: Regular, Normal Sinus Rhythm Gastrointestinal/Abdomen GI Exam: Soft, Non-Tender, Bowel Sounds Present Extremeties Extremities Exam: Moderate Edema Neurologic Neuro Exam: Alert, Awake, Oriented Psychiatric Psych Exam: Appropriate Responses Assessment/Plan Problem List: (1) ESRD (end stage renal disease) on dialysis Plan: NO RECOVERY from ARF long standing Obstructive uropathy leading to irreversible damage hemodialysis to continue MWF. notify [facility] AVF placement has metastatic Prostate cancer. Awaiting put patient HD arrangement. (2) Acute renal failure Plan: Metastatic Prostate Cancer HD post PermCath follow BMP no recovery (3) Uropathy, obstructive Plan: Metastatic Prostate Cancer followed by urology (4) Anemia Plan: on epogen (5) hypertension Plan: on Norvasc 10 mg/ Metoprolol Problem Qualifiers (1) Anemia: Qualified Code: D64.9 - Anemia, unspecified type Jeannette Roger MD Apr 09, 2017 10:54
--- NOTE | 2017-04-09 11:20 | HHI.PR ---
Subjective Remarks no major overnight events denies fevers/chills denies cp/sob Objective Vitals Vital Signs Date Time Temp Pulse Resp B/P Pulse Ox O2 Delivery O2 Flow Rate FiO2 04/09/17 08:00 98.6 51 18 173/74 97 04/09/17 04:00 98.7 58 16 138/63 97 04/09/17 00:00 99.6 57 16 174/77 97 04/08/17 20:33 Room Air 04/08/17 20:00 98.5 55 17 158/73 98 04/08/17 16:23 04/08/17 12:00 97.1 53 18 159/70 98 I/O 04/08/17 04/08/17 04/08/17 04/09/17 04/09/17 04/09/17 06:59 14:59 22:59 06:59 14:59 22:59 Intake Total 250 ml 480 ml 480 ml Output Total 500 ml 825 ml 2550 ml 350 ml Balance -250 ml -825 ml -2070 ml 130 ml Intake Oral 250 ml 480 ml 480 ml Output Urine Total 500 ml 825 ml 550 ml 350 ml Hemodialysis 2000 ml # Bowel Movements 0 1 Result Diagram: 04/09/17 0518 04/08/17 0530 Imaging Last Impressions Abdomen CT 04/05/17 0000 Signed Impressions: Service Date/Time: Wednesday, April 05, 2017 09:06 - CONCLUSION: 1. Interval placement of double-J bilateral ureteral stents with significant interval improvement of previously noted severe bilateral hydronephrosis. Residual mild right and [id number] left hydronephrosis, as above. 2. Redemonstration of blastic osseous metastatic disease. 3. Stable small to moderate bilateral pleural effusions. Ferdinand Fisher MD Bone Biopsy CT 03/31/17 1346 Signed Impressions: Service Date/Time: March 14:07 - CONCLUSION: Uncomplicated CT guided biopsy. David Peña MD Upper Extremity Ultrasound 03/29/17 0000 Signed Impressions: Service Date/Time: Wednesday, March 29, 2017 08:43 - CONCLUSION: Normal examination. Art John MD Catheter Placement X-Ray 03/29/17 0000 Signed Impressions: Service Date/Time: Wednesday, March 29, 2017 08:50 - CONCLUSION: Uncomplicated PermaCath placement as above. Ferdinand Fisher MD Renal Ultrasound 03/25/17 Signed Impressions: Service Date/Time: Saturday, March 25, 2017 22:14 - CONCLUSION: Marked hydronephrosis, Grade IV left kidney. There is no hydronephrosis on the right. Markedly thickened bladder wall. Damien Peña MD FACR Chest X-Ray 03/22/17 Signed Impressions: Service Date/Time: Wednesday, March 22, 2017 16:05 - CONCLUSION: 1. Diffuse increased interstitial markings likely representing pulmonary edema. There is prominence of the central pulmonary vessels. 2. Hazy density bases with silhouetting hemidiaphragms from superimposed areas of consolidation/ atelectasis and effusions. Art Olivera MD Chest CT 03/21/17 Signed Impressions: Service Date/Time: Tuesday, March 21, 2017 13:03 - CONCLUSION: 1. Moderate to large bilateral pleural effusions with associated compressive atelectasis in the lower lobes. 2. Bilateral patchy somewhat nodular groundglass opacities with upper lobe predominance likely related to positive fluid balance. 3. Diffuse sclerotic metastasis to the thoracic vertebra, ribs, and left scapula. 4. Bilateral moderate to severe hydronephrosis, incompletely imaged on this exam. This is similar to yesterday's ultrasound exam. 5. 3.6 cm coarsely calcified left thyroid nodule. This can be further evaluated with thyroid ultrasound as indicated. Ferdinand Fisher MD Abdomen/Pelvis CT 03/21/17 Signed Impressions: Service Date/Time: Tuesday, March 21, 2017 13:03 - CONCLUSION: Large bladder mass with bone metastases. Small bilateral pleural effusions. Minimal retroperitoneal adenopathy. Damien Peña MD FACR Lower Extremity Ultrasound 03/20/17 Signed Impressions: Service Date/Time: Monday, March 20, 2017 17:30 - CONCLUSION: Normal examination. Sebastián Greer MD Objective Remarks AAOx3 clear lungs BL S1S2 RRR no CVA tenderness Procedures 03/31- CT guided biospy right ilium 03/29- permacath placement Medications and IVs Current Medications Medications (Trade) Dose Ordered Sig/Nasreen Route Start Time Stop Time Status Last Admin (NS Flush) 2 ml UNSCH PRN IV FLUSH 03/20/17 18:15 (NS Flush) 2 ml BID IV FLUSH 03/20/17 21:00 04/09/17 09:41 (Tylenol) 650 mg Q6H PRN PO 03/20/17 18:15 ([place] 5-325 Mg) 1 tab Q4H PRN PO 03/20/17 18:15 03/30/17 09:12 (Morphine Inj) 2 mg Q2H PRN IV PUSH 03/20/17 18:30 03/26/17 02:06 (Zofran Inj) 4 mg Q6H PRN IV 03/20/17 18:15 03/23/17 17:52 Miscellaneous Information 1 Q361D XX 03/20/17 18:15 03/20/17 21:46 (Chlorhexidine 2% Cloth) 3 pack Taper DAILY@04 TOP 03/21/17 04:00 03/17/18 03:59 04/02/17 04:00 (Chlorhexidine 2% Cloth) 3 pack UNSCH PRN TOP 03/20/17 18:15 (Negin-Colace) 1 tab BID PO 03/20/17 21:00 04/05/17 08:10 (Milk Of Magnesia Liq) 30 ml Q12H PRN PO 03/20/17 18:15 04/04/17 09:04 (Senokot) 17.2 mg Q12H PRN PO 03/20/17 18:15 (Dulcolax Supp) 10 mg DAILY PRN RECTAL 03/20/17 18:15 04/05/17 08:12 (Lactulose Liq) 30 ml DAILY PRN PO 03/20/17 18:15 04/03/17 17:28 Calcium Acetate 667 mg 667 mg TID PO 03/21/17 18:00 04/09/17 09:35 Sodium Chloride 1,000 ml @ 0 mls/hr Q0M PRN IV 03/22/17 11:58 03/25/17 14:07 Sodium Chloride 1,000 ml @ 200 mls/hr Q5H PRN IV 03/22/17 11:58 04/02/17 11:01 (NS 1000 ml Inj) 1,000 ml @ 0 mls/hr Q0M PRN IV 03/22/17 11:58 (Mannitol Inj) 12.5 gm UNSCH PRN IV 03/22/17 12:00 (Albumin 25% Inj) 25 gm UNSCH PRN IV 03/22/17 12:00 (NS Flush) 5 ml UNSCH PRN IV FLUSH 03/22/17 12:00 (Heparin Inj) UNSCH PRN .XX 03/22/17 12:00 04/02/17 11:01 (Gentamicin (Dialysis) Inj) 20 mg UNSCH PRN IV 03/22/17 12:00 04/02/17 11:01 (Zofran Inj) 4 mg UNSCH PRN IV 03/22/17 12:00 (Tylenol) 650 mg UNSCH PRN PO 03/22/17 12:00 (Benadryl) 25 mg UNSCH PRN PO 03/22/17 12:00 (Nitrostat Sl) 0.4 mg UNSCH PRN SL 03/22/17 12:00 (Catapres) 0.1 mg UNSCH PRN PO 03/22/17 12:00 (Epogen Inj) 10,000 units UNSCH PRN IV 03/22/17 12:00 03/25/17 14:06 (Gelfoam 12 Mm/7 Mm Top) 1 foam UNSCH PRN TOP 03/22/17 12:00 Cholecalciferol 5000 units 5,000 units DAILY PO 03/23/17 09:00 04/09/17 09:38 (NS Irr Bag) 3,000 ml @ 125.5 mls/ hr Q24H IRRIGATION 03/23/17 17:00 03/31/17 17:00 (Narcan Inj) 0.4 mg Q2M PRN IV PUSH 03/23/17 17:00 (Vitamin B1) 100 mg DAILY PO 03/26/17 11:45 04/09/17 09:37 (Romazicon Inj) 0.2 mg Q1M PRN IV PUSH 03/26/17 11:30 (Ativan) 1 mg Q4H PRN PO 03/26/17 11:30 03/27/17 10:52 (Ativan Inj) 1 mg Q4H PRN IV PUSH 03/26/17 11:30 (Ativan) 2 mg Q2H PRN PO 03/26/17 11:30 03/28/17 00:15 (Ativan Inj) 2 mg Q2H PRN IV PUSH 03/26/17 11:30 (Ativan Inj) 2 mg Q1H PRN IV PUSH 03/26/17 11:30 (Ativan Inj) 2 mg Q15M PRN IV PUSH 03/26/17 11:30 (Haldol Inj) 2 mg Q15M PRN IM 03/26/17 11:30 (NS Flush) UNSCH PRN IVF 03/29/17 10:00 (Heparin Inj) UNSCH PRN IV FLUSH 03/29/17 10:00 (Protonix) 40 mg DAILY PO 04/03/17 09:00 04/09/17 09:37 (Norvasc) 10 mg DAILY PO 04/05/17 09:00 04/08/17 09:06 (Lopressor) 12.5 mg Q12HR PO 04/04/17 21:00 04/09/17 09:38 (Pill Splitter) 1 ea UNSCH PRN OTHER 04/04/17 11:00 (Cardura) 2 mg DAILY PO 04/08/17 11:00 (Casodex) 50 mg DAILY PO 04/09/17 09:00 (Flomax) 0.4 mg DAILY PO 04/08/17 16:00 04/09/17 09:38 A/P Problem List: (1) obstructive uropathy, renal failure Status: Acute (2) Bladder mass ICD Code: N32.89 Status: Acute (3) apparent bony metastases, elevated PSA, suspected prostate cancer Status: Acute (4) acute renal failure, on dialysis Status: Acute (5) hypertension Status: Chronic (6) Anemia due to acute blood loss ICD Code: D62 Status: Acute Assessment and Plan (1) obstructive uropathy, renal failure Plan: Patient presented with acute kidney injury secondary to obstructive uropathy due to bladder mass. 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 The patient underwent cystoscopy with ureteral stenting on 03/[address] Fine The patient currently on hemodialysis since 03/22. Maintain Poll[place] catheter. as per urology hemodialysis should be without heparin (2) Bladder mass Status: Acute Plan: Patient had a repeat cystoscopy with fulguration of bleeding sites urinary bladder on 03/24. CT abdomen/pelvis obtained on shows resolution of bilateral hydronephrosis with bilateral JJ stent insertion with folding place. Appreciate input from urology, nephrology, oncology and palliative care medicine. (3) Metastatic prostate Cancer Plan: Status post biopsy of the left iliac crest lesion as detailed above, positive for metastatic carcinoma of the prostate. Follow-up oncology recommendations - patient started on Bicalutamide as per oncology. 04/08 Palliative Care following (4) acute renal failure, on dialysis Plan: Secondary to obstructive uropathy, due to bladder mass. Creatinine not recovering and patient now hemodialysis dependent. Follow-up nephrology recommendations (5) hypertension Plan: Blood pressure seems to be elevated in the 150s and 160s systolic. Patient on Norvasc and metoprolol however did not get this medications since he was on hemodialysis. 04/08 blood pressure still severely uncontrolled and persistently elevated into the systolic blood pressure 180s. I will start the patient on doxazosin 2 mg by mouth daily and adjust the dose accordingly. 04/09 Patient did not get Doxazosin because he was on dialysis. Continue doxazosin, Norvasc and metoprolol. Continue to monitor vital signs (6) Anemia due to acute blood loss Plan: Anemia secondary to hematuria and possible metastases. Hematology consulted. Input appreciated. Status post transfusion of 8 units of PRBCs since admission. Continue to monitor hemoglobin GI prophylaxis: Continue Protonix. DVT prophylaxis: SCDs, no chemoprophylaxis given recent severe blood loss anemia. Discharge Planning SSI pending. Not a safe discharge -dialysis is still not set up. I will discharge patient once dialysis is set up. Jersey Arrieta MD Apr 09, 2017 11:20
[2017-04-09 12:00] VITALS: BP 153/64; PULSE 60; RESP 16; TEMP 98.3; O2SAT 100
--- NOTE | 2017-04-09 12:30 | PD.ONC.PN ---
Subjective Subjective Remarks Afebrile overnight. Patient resting in bed in nad. Also seen ambulating on floor without difficulty. Wants to go home. Objective Data Date Time Temp Pulse Resp B/P Pulse Ox O2 Delivery O2 Flow Rate FiO2 04/09/17 08:00 98.6 51 18 173/74 97 04/09/17 04:00 98.7 58 16 138/63 97 04/09/17 00:00 99.6 57 16 174/77 97 04/08/17 20:33 Room Air 04/08/17 20:00 98.5 55 17 158/73 98 04/08/17 16:23 04/09/17 04/09/17 04/09/17 07:00 15:00 23:00 Intake Total 480 ml Output Total 350 ml Balance 130 ml Result Diagram: 04/09/1718 04/08/17 0530 Laboratory Results Laboratory Tests Test 04/09/17 05:18 White Blood Count 10.7 TH/MM3 Red Blood Count 3.16 MIL/MM3 Hemoglobin 9.4 GM/DL Hematocrit 28.3 % Mean Corpuscular Volume 89.4 FL Mean Corpuscular Hemoglobin 29.7 PG Mean Corpuscular Hemoglobin 33.2 % Concent Red Cell Distribution Width 16.9 % Platelet Count 236 TH/MM3 Mean Platelet Volume 8.0 FL Neutrophils (%) (Auto) 55.3 % Lymphocytes (%) (Auto) 29.4 % Monocytes (%) (Auto) 7.7 % Eosinophils (%) (Auto) 5.8 % Basophils (%) (Auto) 1.8 % Neutrophils # (Auto) 5.9 TH/MM3 Lymphocytes # (Auto) 3.1 TH/MM3 Monocytes # (Auto) 0.8 TH/MM3 Eosinophils # (Auto) 0.6 TH/MM3 Basophils # (Auto) 0.2 TH/MM3 CBC Comment DIFF FINAL Differential Comment Administered Medications Medications (Trade) Dose Ordered Sig/Nasreen Route PRN Reason Start Time Stop Time Status Last Admin Dose Admin Sodium Chloride (NS Flush) 2 ml BID IV FLUSH 03/20/17 21:00 04/09/17 09:41 Acetaminophen/ Hydrocodone Bitart ([place] 5-325 Mg) 1 tab Q4H PRN PO PAIN SCALE 1 TO 5 03/20/17 18:15 03/30/17 09:12 Morphine Sulfate (Morphine Inj) 2 mg Q2H PRN IV PUSH PAIN 6-10 03/20/17 18:30 03/26/17 02:06 Ondansetron HCl (Zofran Inj) 4 mg Q6H PRN IV NAUSEA OR VOMITING 03/20/17 18:15 03/23/17 17:52 Miscellaneous Information 1 Q361D XX 03/20/17 18:15 03/20/17 21:46 Chlorhexidine Gluconate (Chlorhexidine 2% Cloth) 3 pack Taper DAILY@04 TOP 03/21/17 04:00 03/17/18 03:59 04/02/17 04:00 Senna/Docusate Sodium (Negin-Colace) 1 tab BID PO 03/20/17 21:00 04/05/17 08:10 Magnesium Hydroxide (Milk Of Magnesia Liq) 30 ml Q12H PRN PO MILD - MODERATE CONSTIPATION 03/20/17 18:15 04/04/17 09:04 Bisacodyl (Dulcolax Supp) 10 mg DAILY PRN RECTAL SEVERE CONSITIPATION 03/20/17 18:15 04/05/17 08:12 Lactulose (Lactulose Liq) 30 ml DAILY PRN PO SEVERE CONSITIPATION 03/20/17 18:15 04/03/17 17:28 Calcium Acetate 667 mg 667 mg TID PO 03/21/17 18:00 04/09/17 09:35 Sodium Chloride 1,000 ml @ 0 mls/hr Q0M PRN IV For Prime & Rinse Back 03/22/17 11:58 03/25/17 14:07 Sodium Chloride (NS 1000 ml Inj) 1,000 ml @ 200 mls/hr Q5H PRN IV WITH DIALYSIS 03/22/17 11:58 04/02/17 11:01 Heparin Sodium (Porcine) (Heparin Inj) UNSCH PRN .XX WITH DIALYSIS 03/22/17 12:00 04/02/17 11:01 Gentamicin Sulfate (Gentamicin (Dialysis) Inj) 20 mg UNSCH PRN IV WITH DIALYSIS 03/22/17 12:00 04/02/17 11:01 Epoetin Hermes (Epogen Inj) 10,000 units UNSCH PRN IV WITH DIALYSIS 03/22/17 12:00 03/25/17 14:06 Cholecalciferol 5000 units 5,000 units DAILY PO 03/23/17 09:00 04/09/17 09:38 Sodium Chloride (NS Irr Bag) 3,000 ml @ 125.5 mls/ hr Q24H IRRIGATION 03/23/17 17:00 03/31/17 17:00 Thiamine HCl (Vitamin B1) 100 mg DAILY PO 03/26/17 11:45 04/09/17 09:37 Lorazepam (Ativan) 1 mg Q4H PRN PO CIWA 8 - 10 03/26/17 11:30 03/27/17 10:52 Lorazepam (Ativan) 2 mg Q2H PRN PO CIWA 11-14 03/26/17 11:30 03/28/17 00:15 Pantoprazole Sodium (Protonix) 40 mg DAILY PO 04/03/17 09:00 04/09/17 09:37 Amlodipine Besylate (Norvasc) 10 mg DAILY PO 04/05/17 09:00 04/08/17 09:06 Metoprolol Tartrate (Lopressor) 12.5 mg Q12HR PO 04/04/17 21:00 04/09/17 09:38 Tamsulosin HCl (Flomax) 0.4 mg DAILY PO 04/08/17 16:00 04/09/17 09:38 Objective Remarks GENERAL: Middle aged male upright in room SKIN: Warm and dry. perma-cath in place. HEAD: Normocephalic. EYES: No scleral icterus. No injection or drainage. NECK: Supple, trachea midline. CARDIOVASCULAR: Regular rate and rhythm RESPIRATORY: Breath sounds equal bilaterally. No accessory muscle use. GASTROINTESTINAL: Abdomen soft, non-tender, nondistended. EXTREMITIES: No cyanosis NEUROLOGICAL: No obvious focal deficit. Awake, alert, and oriented x3. Assessment/Plan Problem List: (1) Bladder mass Status: Acute Plan: 04/09: clear for discharge. follow up in clinic once discharged PSA elevated CT ab/pelvis: + bladder mass with bony mets. CT chest: bilateral pleural effusions. + bony mets to thoracic vertebra, ribs, left scapula (2) Anemia Status: Acute Plan: --transfuse as needed --hemoccult negative --keren negative --no sign of hemolysis. --slightly elevated retic count, no sign of iron deficiency Assessment 61y/o male with prostate cancer Attending Statement Patient is anxious to go home He denies any new complaints He had refused Casodex. Explain to him why he needs to take it. He agrees to take tomorrow Okay to discharge from my standpoint I will follow him as an outpatient Here's an appointment With me next week on TuesdayThe exam, history, and the medical decision-making described in the above note were completed with the assistance of the mid-level provider. I reviewed and agree with the findings presented. I attest that I had a [id number] encounter with the patient on the same day, and personally performed and documented my assessment and findings in the medical record. Problem Qualifiers (1) Anemia: Qualified Code: D64.9 - Anemia, unspecified type Raquel Stephens Apr 09, 2017 12:30 Cam Arceo MD Apr 09, 2017 23:50
[2017-04-09 16:00] VITALS: BP 160/69; PULSE 64; RESP 18; TEMP 98.7; O2SAT 99
[2017-04-09] MEDS: IRR IRRIGATION SCH (17:00)
[2017-04-09] MEDS: SODIUM CHLORIDE 0.9% IRRIGATION SCH (17:00)
[2017-04-09 20:00] VITALS: BP 152/68; PULSE 58; RESP 16; TEMP 98.7; O2SAT 96
[2017-04-10] VITALS: BP 158/69; PULSE 61; RESP 17; TEMP 98; O2SAT 96
[2017-04-10 04:00] VITALS: BP 161/72; PULSE 58; RESP 16; TEMP 97.2; O2SAT 96
[2017-04-10] MEDS: CHLORHEXIDINE GLUCONATE 2 % 1 PACK (2 CLOTHS) TOP SCH (04:00)
[2017-04-10 08:00] VITALS: BP 179/80; PULSE 60; RESP 20; TEMP 97; O2SAT 98
[2017-04-10] MEDS: SODIUM CHLORIDE 0.9% FLUSH 10 ML FLUSH IV FLUSH SCH ×2 (09:00→21:03)
[2017-04-10] MEDS: DOXAZOSIN MESYLATE 2 MG TAB PO SCH (09:00)
[2017-04-10] MEDS: THIAMINE HCL 100 MG TAB PO SCH (09:08)
[2017-04-10] MEDS: CHOLECALCIFEROL (VIT D3) 5000 UNIT CAP PO SCH (09:09)
[2017-04-10] MEDS: DOCUSATE SODIUM 50 MG/SENNA 8.6 MG TAB PO SCH ×2 (09:09→21:00)
[2017-04-10] MEDS: TAMSULOSIN HCL 0.4 MG CAP PO SCH (09:10)
[2017-04-10] MEDS: CALCIUM ACETATE 667 MG CAP PO SCH ×3 (09:10→18:18)
[2017-04-10] MEDS: PANTOPRAZOLE SOD 40 MG DELAYED RELEASE TAB PO SCH (09:10)
[2017-04-10] MEDS: METOPROLOL TARTRATE 25 MG TAB PO SCH ×2 (09:10→21:03)
[2017-04-10] MEDS: BICALUTAMIDE 50 MG TAB PO SCH (09:17)
--- NOTE | 2017-04-10 09:49 | PD.ONC.PN ---
Subjective Subjective Remarks Afebrile overnight. Resting in bed, eating breakfast. No complaints. Objective Data Date Time Temp Pulse Resp B/P Pulse Ox O2 Delivery O2 Flow Rate FiO2 04/10/17 08:00 97.0 60 20 179/80 98 04/10/17 04:00 97.2 58 16 161/72 96 04/10/17 00:00 98.0 61 17 158/69 96 04/09/17 22:00 96 Room Air 04/09/17 20:00 98.7 58 16 152/68 96 04/09/17 16:00 98.7 64 18 160/69 99 04/09/17 12:00 98.3 60 16 153/64 100 04/10/17 04/10/17 04/10/17 06:59 14:59 22:59 Output Total 600 ml Balance -600 ml Result Diagram: 04/09/17 0518 04/08/17 0530 Administered Medications Medications (Trade) Dose Ordered Sig/Nasreen Route PRN Reason Start Time Stop Time Status Last Admin Dose Admin Sodium Chloride (NS Flush) 2 ml BID IV FLUSH 03/20/17 21:00 04/09/17 22:09 Acetaminophen/ Hydrocodone Bitart ([place] 5-325 Mg) 1 tab Q4H PRN PO PAIN SCALE 1 TO 5 03/20/17 18:15 03/30/17 09:12 Morphine Sulfate (Morphine Inj) 2 mg Q2H PRN IV PUSH PAIN 6-10 03/20/17 18:30 03/26/17 02:06 Ondansetron HCl (Zofran Inj) 4 mg Q6H PRN IV NAUSEA OR VOMITING 03/20/17 18:15 03/23/17 17:52 Miscellaneous Information 1 Q361D XX 03/20/17 18:15 03/20/17 21:46 Chlorhexidine Gluconate (Chlorhexidine 2% Cloth) 3 pack Taper DAILY@04 TOP 03/21/17 04:00 03/17/18 03:59 04/02/17 04:00 Senna/Docusate Sodium (Negin-Colace) 1 tab BID PO 03/20/17 21:00 04/10/17 09:09 Magnesium Hydroxide (Milk Of Magnesia Liq) 30 ml Q12H PRN PO MILD - MODERATE CONSTIPATION 03/20/17 18:15 04/04/17 09:04 Bisacodyl (Dulcolax Supp) 10 mg DAILY PRN RECTAL SEVERE CONSITIPATION 03/20/17 18:15 04/05/17 08:12 Lactulose (Lactulose Liq) 30 ml DAILY PRN PO SEVERE CONSITIPATION 03/20/17 18:15 04/03/17 17:28 Calcium Acetate 667 mg 667 mg TID PO 03/21/17 18:00 04/10/17 09:10 Sodium Chloride 1,000 ml @ 0 mls/hr Q0M PRN IV For Prime & Rinse Back 03/22/17 11:58 03/25/17 14:07 Sodium Chloride (NS 1000 ml Inj) 1,000 ml @ 200 mls/hr Q5H PRN IV WITH DIALYSIS 03/22/17 11:58 04/02/17 11:01 Heparin Sodium (Porcine) (Heparin Inj) UNSCH PRN .XX WITH DIALYSIS 03/22/17 12:00 04/02/17 11:01 Gentamicin Sulfate (Gentamicin (Dialysis) Inj) 20 mg UNSCH PRN IV WITH DIALYSIS 03/22/17 12:00 04/02/17 11:01 Epoetin Hermes (Epogen Inj) 10,000 units UNSCH PRN IV WITH DIALYSIS 03/22/17 12:00 03/25/17 14:06 Cholecalciferol 5000 units 5,000 units DAILY PO 03/23/17 09:00 04/10/17 09:09 Sodium Chloride (NS Irr Bag) 3,000 ml @ 125.5 mls/ hr Q24H IRRIGATION 03/23/17 17:00 03/31/17 17:00 Thiamine HCl (Vitamin B1) 100 mg DAILY PO 03/26/17 11:45 04/10/17 09:08 Lorazepam (Ativan) 1 mg Q4H PRN PO CIWA 8 - 10 03/26/17 11:30 03/27/17 10:52 Lorazepam (Ativan) 2 mg Q2H PRN PO CIWA 11-14 03/26/17 11:30 03/28/17 00:15 Pantoprazole Sodium (Protonix) 40 mg DAILY PO 04/03/17 09:00 04/10/17 09:10 Amlodipine Besylate (Norvasc) 10 mg DAILY PO 04/05/17 09:00 04/08/17 09:06 Metoprolol Tartrate (Lopressor) 12.5 mg Q12HR PO 04/04/17 21:00 04/10/17 09:10 Bicalutamide (Casodex) 50 mg DAILY PO 04/09/17 09:00 04/10/17 09:17 Tamsulosin HCl (Flomax) 0.4 mg DAILY PO 04/08/17 16:00 04/10/17 09:10 Objective Remarks GENERAL: Middle aged male sitting up in bed eating breakfast. SKIN: Warm and dry. perma-cath in place. HEAD: Normocephalic. EYES: No scleral icterus. No injection or drainage. NECK: Supple, trachea midline. CARDIOVASCULAR: Regular rate and rhythm RESPIRATORY: Breath sounds equal bilaterally. No accessory muscle use. GASTROINTESTINAL: Abdomen soft, non-tender, nondistended. EXTREMITIES: No cyanosis NEUROLOGICAL: awake and alert, normal speech. moving all extremities. Assessment/Plan Problem List: (1) Bladder mass Status: Acute Plan: 04/10: doing well. has appointment in clinic Tuesday. continue casodex. PSA elevated CT ab/pelvis: + bladder mass with bony mets. CT chest: bilateral pleural effusions. + bony mets to thoracic vertebra, ribs, left scapula (2) Anemia Status: Acute Plan: --transfuse as needed --hemoccult negative --keren negative --no sign of hemolysis. --slightly elevated retic count, no sign of iron deficiency Assessment 61y/o male with prostate cancer Attending Statement Patient denies any new complaints Tolerating casodex without having any problems Continued dialysis Follow up as an outpatient The exam, history, and the medical decision-making described in the above note were completed with the assistance of the mid-level provider. I reviewed and agree with the findings presented. I attest that I had a [id number] encounter with the patient on the same day, and personally performed and documented my assessment and findings in the medical record. Problem Qualifiers (1) Anemia: Qualified Code: D64.9 - Anemia, unspecified type Raquel Stephens Apr 10, 2017 09:49 Cam Arceo MD Apr 10, 2017 22:14
--- NOTE | 2017-04-10 11:45 | HHI.NPPN ---
Subjective History of Present Illness 61 year old with ARF no recovery metastatic prostate Ca ESRD Additional Remarks Patient is alert, feeling good, no complain. Review of Systems General Constitutional: Fatigue Objective Data Data 04/09/17 04/10/17 19:00 07:00 Intake Total 480 ml 480 ml Output Total 372 ml 1200 ml Balance 108 ml -720 ml Intake Oral 480 ml 480 ml Output Urine Total 372 ml 1200 ml # Bowel Movements 1 Vital Signs Date Time Temp Pulse Resp B/P Pulse Ox O2 Delivery O2 Flow Rate FiO2 04/10/17 08:00 97.0 60 20 179/80 98 04/10/17 04:00 97.2 58 16 161/72 96 04/10/17 00:00 98.0 61 17 158/69 96 04/09/17 22:00 96 Room Air 04/09/17 20:00 98.7 58 16 152/68 96 04/09/17 16:00 98.7 64 18 160/69 99 04/09/17 12:00 98.3 60 16 153/64 100 -: 04/09/17 0518 04/08/17 0530 Physical Exam General Appearance: Well Developed, Well Nourished, No Acute Distress, Comfortable Pulmonary Resp Exam: Clear Bilaterally, Breath Sounds Equal Cardiology CV Exam: Regular, Normal Sinus Rhythm Gastrointestinal/Abdomen GI Exam: Soft, Non-Tender, Bowel Sounds Present Extremeties Extremities Exam: Moderate Edema Neurologic Neuro Exam: Alert, Awake, Oriented Psychiatric Psych Exam: Appropriate Responses Assessment/Plan Problem List: (1) ESRD (end stage renal disease) on dialysis Plan: NO RECOVERY from ARF long standing Obstructive uropathy leading to irreversible damage hemodialysis to continue MWF. notify [facility] AVF placement has metastatic Prostate cancer. Awaiting put patient HD arrangement. HD again in AM. (2) Acute renal failure Plan: Metastatic Prostate Cancer HD post PermCath follow BMP no recovery (3) Uropathy, obstructive Plan: Metastatic Prostate Cancer followed by urology (4) Anemia Plan: on epogen (5) hypertension Plan: on Norvasc 10 mg/ Metoprolol. BP is elevated off and on, he has been refusing to take meds. off and on. Problem Qualifiers (1) Anemia: Qualified Code: D64.9 - Anemia, unspecified type Jeannette Roger MD Apr 10, 2017 11:45
--- NOTE | 2017-04-10 12:14 | HHI.PR ---
Subjective Remarks denies cp/sob wants to go home Objective Vitals Vital Signs Date Time Temp Pulse Resp B/P Pulse Ox O2 Delivery O2 Flow Rate FiO2 04/10/17 08:00 97.0 60 20 179/80 98 04/10/17 04:00 97.2 58 16 161/72 96 04/10/17 00:00 98.0 61 17 158/69 96 04/09/17 22:00 96 Room Air 04/09/17 20:00 98.7 58 16 152/68 96 04/09/17 16:00 98.7 64 18 160/69 99 I/O 04/09/17 04/09/17 04/09/17 04/10/17 04/10/17 04/10/17 07:00 15:00 23:00 07:00 15:00 23:00 Intake Total 480 ml 480 ml 480 ml Output Total 350 ml 372 ml 600 ml 600 ml Balance 130 ml 108 ml -120 ml -600 ml Intake Oral 480 ml 480 ml 480 ml Output Urine Total 350 ml 372 ml 600 ml 600 ml # Bowel Movements 1 Result Diagram: 04/09/17 0518 04/08/17 0530 Objective Remarks AAOx3 clear lungs BL S1S2 RRR no CVA tenderness Procedures 03/31- CT guided biospy right ilium 03/29- permacath placement Medications and IVs Current Medications Medications (Trade) Dose Ordered Sig/Nasreen Route Start Time Stop Time Status Last Admin (NS Flush) 2 ml UNSCH PRN IV FLUSH 03/20/17 18:15 (NS Flush) 2 ml BID IV FLUSH 03/20/17 21:00 04/10/17 09:00 (Tylenol) 650 mg Q6H PRN PO 03/20/17 18:15 (Jackson 5-325 Mg) 1 tab Q4H PRN PO 03/20/17 18:15 03/30/17 09:12 (Morphine Inj) 2 mg Q2H PRN IV PUSH 03/20/17 18:30 03/26/17 02:06 (Zofran Inj) 4 mg Q6H PRN IV 03/20/17 18:15 03/23/17 17:52 Miscellaneous Information 1 Q361D XX 03/20/17 18:15 03/20/17 21:46 (Chlorhexidine 2% Cloth) 3 pack Taper DAILY@04 [facility] 03/21/17 04:00 03/17/18 03:59 04/02/17 04:00 (Chlorhexidine 2% Cloth) 3 pack UNSCH PRN TOP 03/20/17 18:15 (Negin-Colace) 1 tab BID PO 03/20/17 21:00 04/10/17 09:09 (Milk Of Magnesia Liq) 30 ml Q12H PRN PO 03/20/17 18:15 04/04/17 09:04 (Senokot) 17.2 mg Q12H PRN PO 03/20/17 18:15 (Dulcolax Supp) 10 mg DAILY PRN RECTAL 03/20/17 18:15 04/05/17 08:12 (Lactulose Liq) 30 ml DAILY PRN PO 03/20/17 18:15 04/03/17 17:28 Calcium Acetate 667 mg 667 mg TID PO 03/21/17 18:00 04/10/17 18:18 Sodium Chloride 1,000 ml @ 0 mls/hr Q0M PRN IV 03/22/17 11:58 03/25/17 14:07 Sodium Chloride 1,000 ml @ 200 mls/hr Q5H PRN IV 03/22/17 11:58 04/02/17 11:01 (NS 1000 ml Inj) 1,000 ml @ 0 mls/hr Q0M PRN IV 03/22/17 11:58 (Mannitol Inj) 12.5 gm UNSCH PRN IV 03/22/17 12:00 (Albumin 25% Inj) 25 gm UNSCH PRN IV 03/22/17 12:00 (NS Flush) 5 ml UNSCH PRN IV FLUSH 03/22/17 12:00 (Heparin Inj) UNSCH PRN .XX 03/22/17 12:00 04/02/17 11:01 (Gentamicin (Dialysis) Inj) 20 mg UNSCH PRN IV 03/22/17 12:00 04/02/17 11:01 (Zofran Inj) 4 mg UNSCH PRN IV 03/22/17 12:00 (Tylenol) 650 mg UNSCH PRN PO 03/22/17 12:00 (Benadryl) 25 mg UNSCH PRN PO 03/22/17 12:00 (Nitrostat Sl) 0.4 mg UNSCH PRN SL 03/22/17 12:00 (Catapres) 0.1 mg UNSCH PRN PO 03/22/17 12:00 (Epogen Inj) 10,000 units UNSCH PRN IV 03/22/17 12:00 03/25/17 14:06 (Gelfoam 12 Mm/7 Mm Top) 1 foam UNSCH PRN TOP 03/22/17 12:00 Cholecalciferol 5000 units 5,000 units DAILY PO 03/23/17 09:00 04/10/17 09:09 (NS Irr Bag) 3,000 ml @ 125.5 mls/ hr Q24H IRRIGATION 03/23/17 17:00 03/31/17 17:00 (Narcan Inj) 0.4 mg Q2M PRN IV PUSH 03/23/17 17:00 (Vitamin B1) 100 mg DAILY PO 03/26/17 11:45 04/10/17 09:08 (Romazicon Inj) 0.2 mg Q1M PRN IV PUSH 03/26/17 11:30 (Ativan) 1 mg Q4H PRN PO 03/26/17 11:30 03/27/17 10:52 (Ativan Inj) 1 mg Q4H PRN IV PUSH 03/26/17 11:30 (Ativan) 2 mg Q2H PRN PO 03/26/17 11:30 03/28/17 00:15 (Ativan Inj) 2 mg Q2H PRN IV PUSH 03/26/17 11:30 (Ativan Inj) 2 mg Q1H PRN IV PUSH 03/26/17 11:30 (Ativan Inj) 2 mg Q15M PRN IV PUSH 03/26/17 11:30 (Haldol Inj) 2 mg Q15M PRN IM 03/26/17 11:30 (NS Flush) UNSCH PRN IVF 03/29/17 10:00 (Heparin Inj) UNSCH PRN IV FLUSH 03/29/17 10:00 (Protonix) 40 mg DAILY PO 04/03/17 09:00 04/10/17 09:10 (Norvasc) 10 mg DAILY PO 04/05/17 09:00 04/08/17 09:06 (Lopressor) 12.5 mg Q12HR PO 04/04/17 21:00 04/10/17 09:10 (Pill Splitter) 1 ea UNSCH PRN OTHER 04/04/17 11:00 (Cardura) 2 mg DAILY PO 04/08/17 11:00 (Casodex) 50 mg DAILY PO 04/09/17 09:00 04/10/17 09:17 (Flomax) 0.4 mg DAILY PO 04/08/17 16:00 04/10/17 09:10 Urinary Catheter: Yes Assessment to: Continue Pollock insert reason: Obstruction/Retention A/P Problem List: (1) obstructive uropathy, renal failure Status: Acute (2) Bladder mass ICD Code: N32.89 Status: Acute (3) apparent bony metastases, elevated PSA, suspected prostate cancer Status: Acute (4) acute renal failure, on dialysis Status: Acute (5) hypertension Status: Chronic (6) Anemia due to acute blood loss ICD Code: D62 Status: Acute Assessment and Plan (1) obstructive uropathy, renal failure Plan: Patient presented with acute kidney injury secondary to obstructive uropathy due to bladder mass. 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 The patient underwent cystoscopy with ureteral stenting on 03/[address] Fine The patient currently on hemodialysis since 03/22. Maintain Pollock catheter. as per urology hemodialysis should be without heparin (2) Bladder mass Status: Acute Plan: Patient had a repeat cystoscopy with fulguration of bleeding sites urinary bladder on 03/24. CT abdomen/pelvis obtained on shows resolution of bilateral hydronephrosis with bilateral JJ stent insertion with folding place. Appreciate input from urology, nephrology, oncology and palliative care medicine. (3) Metastatic prostate Cancer Plan: Status post biopsy of the left iliac crest lesion as detailed above, positive for metastatic carcinoma of the prostate. Follow-up oncology recommendations - patient started on Bicalutamide as per oncology. 04/08 Palliative Care following (4) acute renal failure, on dialysis Plan: Secondary to obstructive uropathy, due to bladder mass. Creatinine not recovering and patient now hemodialysis dependent. Follow-up nephrology recommendations (5) hypertension Plan: Blood pressure seems to be elevated in the 150s and 160s systolic. Patient on Norvasc and metoprolol however did not get this medications since he was on hemodialysis. 04/08 blood pressure still severely uncontrolled and persistently elevated into the systolic blood pressure 180s. I will start the patient on doxazosin 2 mg by mouth daily and adjust the dose accordingly. 04/09 Patient did not get Doxazosin because he was on dialysis. Continue doxazosin, Norvasc and metoprolol. Continue to monitor vital signs 04/10 Patient is refusing antihypertensive medications - Doxazosin and amlodipine. (6) Anemia due to acute blood loss Plan: Anemia secondary to hematuria and possible metastases. Hematology consulted. Input appreciated. Status post transfusion of 8 units of PRBCs since admission. Continue to monitor hemoglobin GI prophylaxis: Continue Protonix. DVT prophylaxis: SCDs, no chemoprophylaxis given recent severe blood loss anemia. Discharge Planning SSI pending. Not a safe discharge -dialysis is still not set up. Jersey Arrieta MD Apr 10, 2017 12:14
[2017-04-10 12:26] VITALS: BP 162/72; PULSE 55; RESP 20; TEMP 98.6; O2SAT 95
[2017-04-10 16:00] VITALS: BP 155/72; PULSE 55; RESP 16; TEMP 97.7; O2SAT 96
[2017-04-10] MEDS: SODIUM CHLORIDE 0.9% IRRIGATION SCH (17:00)
[2017-04-10] MEDS: IRR IRRIGATION SCH (17:00)
[2017-04-10 20:00] VITALS: BP 167/76; PULSE 57; RESP 17; TEMP 96.9; O2SAT 98
[2017-04-11] VITALS: BP 169/72; PULSE 57; RESP 16; TEMP 96.7; O2SAT 97
[2017-04-11 04:00] VITALS: BP 176/74; PULSE 63; RESP 17; TEMP 97.3; O2SAT 99
[2017-04-11] MEDS: CHLORHEXIDINE GLUCONATE 2 % 1 PACK (2 CLOTHS) TOP SCH (04:00)
[2017-04-11 08:00] VITALS: BP_SYST 168; BP_SYST 193; BP_DIAS 74; BP_DIAS 86; PULSE 50; RESP 18; TEMP 98.4; O2SAT 96
--- NOTE | 2017-04-11 08:17 | HHI.PR ---
Subjective Patient symptoms today Pt seen and examined. Desires to go home. Urine clear. Objective Vital Signs Vital Signs Date Time Temp Pulse Resp B/P Pulse Ox O2 Delivery O2 Flow Rate FiO2 04/11/17 04:00 97.3 63 17 176/74 99 04/11/17 00:00 96.7 57 16 169/72 97 04/10/17 21:03 98 Room Air 04/10/17 20:00 96.9 57 17 167/76 98 04/10/17 16:00 97.7 55 16 155/72 96 04/10/17 12:26 98.6 55 20 162/72 95 04/10/17 09:07 Room Air Intake & Output 04/11/17 04/11/17 07:00 19:00 Intake Total 960 ml Output Total 1025 ml Balance -65 ml Intake Oral 960 ml Output Urine Total 1025 ml Result Diagram: 04/09/1751704/08/17 05 Objective Remarks Abd:soft, tender over bladder Ext:2+ edema 03/23 Abd: soft,nt,nd Carson: blood tinged on Amicar CBI 03/[address] draining clear urine Abdomen soft, nondistended, nontender 04/04 Abd:soft,nt,nd Carson: urine clear; off Amicar 04/05 Abd:soft,nt,nd Urine clear Moving bowels 04/06 Abd:soft,nt,nd Urine clear 04/07 Abd:soft,nt,nd Urine clear 04/08 Abd:soft,nt,nd Urine clear 04/11 Abd:soft,nt,nd Urine clear Medications and IVs Current Medications Medications (Trade) Dose Ordered Sig/Nasreen Route Start Time Stop Time Status Last Admin (NS Flush) 2 ml UNSCH PRN IV FLUSH 03/20/17 18:15 (NS Flush) 2 ml BID IV FLUSH 03/20/17 21:00 04/10/17 21:03 (Tylenol) 650 mg Q6H PRN PO 03/20/17 18:15 (Apache 5-325 Mg) 1 tab Q4H PRN PO 03/20/17 18:15 03/30/17 09:12 (Morphine Inj) 2 mg Q2H PRN IV PUSH 03/20/17 18:30 03/26/17 02:06 (Zofran Inj) 4 mg Q6H PRN IV 03/20/17 18:15 03/23/17 17:52 Miscellaneous Information 1 Q361D XX 03/20/17 18:15 03/20/17 21:46 (Chlorhexidine 2% Cloth) 3 pack Taper DAILY@04 TOP 03/21/17 04:00 03/17/18 03:59 04/02/17 04:00 (Chlorhexidine 2% Cloth) 3 pack UNSCH PRN TOP 03/20/17 18:15 (Negin-Colace) 1 tab BID PO 03/20/17 21:00 04/10/17 09:09 (Milk Of Magnesia Liq) 30 ml Q12H PRN PO 03/20/17 18:15 04/04/17 09:04 (Senokot) 17.2 mg Q12H PRN PO 03/20/17 18:15 (Dulcolax Supp) 10 mg DAILY PRN RECTAL 03/20/17 18:15 04/05/17 08:12 (Lactulose Liq) 30 ml DAILY PRN PO 03/20/17 18:15 04/03/17 17:28 Calcium Acetate 667 mg 667 mg TID PO 03/21/17 18:00 04/10/17 18:18 Sodium Chloride 1,000 ml @ 0 mls/hr Q0M PRN IV 03/22/17 11:58 03/25/17 14:07 Sodium Chloride 1,000 ml @ 200 mls/hr Q5H PRN IV 03/22/17 11:58 04/02/17 11:01 (NS 1000 ml Inj) 1,000 ml @ 0 mls/hr Q0M PRN IV 03/22/17 11:58 (Mannitol Inj) 12.5 gm UNSCH PRN IV 03/22/17 12:00 (Albumin 25% Inj) 25 gm UNSCH PRN IV 03/22/17 12:00 (NS Flush) 5 ml UNSCH PRN IV FLUSH 03/22/17 12:00 (Heparin Inj) UNSCH PRN .XX 03/22/17 12:00 04/02/17 11:01 (Gentamicin (Dialysis) Inj) 20 mg UNSCH PRN IV 03/22/17 12:00 04/02/17 11:01 (Zofran Inj) 4 mg UNSCH PRN IV 03/22/17 12:00 (Tylenol) 650 mg UNSCH PRN PO 03/22/17 12:00 (Benadryl) 25 mg UNSCH PRN PO 03/22/17 12:00 (Nitrostat Sl) 0.4 mg UNSCH PRN SL 03/22/17 12:00 (Catapres) 0.1 mg UNSCH PRN PO 03/22/17 12:00 (Epogen Inj) 10,000 units UNSCH PRN IV 03/22/17 12:00 03/25/17 14:06 (Gelfoam 12 Mm/7 Mm Top) 1 foam UNSCH PRN TOP 03/22/17 12:00 Cholecalciferol 5000 units 5,000 units DAILY PO 03/23/17 09:00 04/10/17 09:09 (NS Irr Bag) 3,000 ml @ 125.5 mls/ hr Q24H IRRIGATION 03/23/17 17:00 03/31/17 17:00 (Narcan Inj) 0.4 mg Q2M PRN IV PUSH 03/23/17 17:00 (Vitamin B1) 100 mg DAILY PO 03/26/17 11:45 04/10/17 09:08 (Romazicon Inj) 0.2 mg Q1M PRN IV PUSH 03/26/17 11:30 (Ativan) 1 mg Q4H PRN PO 03/26/17 11:30 03/27/17 10:52 (Ativan Inj) 1 mg Q4H PRN IV PUSH 03/26/17 11:30 (Ativan) 2 mg Q2H PRN PO 03/26/17 11:30 03/28/17 00:15 (Ativan Inj) 2 mg Q2H PRN IV PUSH 03/26/17 11:30 (Ativan Inj) 2 mg Q1H PRN IV PUSH 03/26/17 11:30 (Ativan Inj) 2 mg Q15M PRN IV PUSH 03/26/17 11:30 (Haldol Inj) 2 mg Q15M PRN IM 03/26/17 11:30 (NS Flush) UNSCH PRN IVF 03/29/17 10:00 (Heparin Inj) UNSCH PRN IV FLUSH 03/29/17 10:00 (Protonix) 40 mg DAILY PO 04/03/17 09:00 04/10/17 09:10 (Norvasc) 10 mg DAILY PO 04/05/17 09:00 04/08/17 09:06 (Lopressor) 12.5 mg Q12HR PO 04/04/17 21:00 04/10/17 21:03 (Pill Splitter) 1 ea UNSCH PRN OTHER 04/04/17 11:00 (Cardura) 2 mg DAILY PO 04/08/17 11:00 (Casodex) 50 mg DAILY PO 04/09/17 09:00 04/10/17 09:17 (Flomax) 0.4 mg DAILY PO 04/08/17 16:00 04/10/17 09:10 Assessment and Plan Assessment and Plan 61-year-old male with acute renal failure and evidence of bladder outlet obstruction with elevated PSA and family history of prostate cancer. Maintain Carson catheter and monitor for postobstructive diuresis. Holding replacement fluids at present due to evidence of pulmonary edema on chest x-ray. CT scan ordered for later today. We'll start Flomax in the future once his creatinine starts to baseline. Once Carson catheter has been removed and he is voiding we'll need to repeat PSA at that time. We'll follow with you. Thank you for the consult and allowing me to participate in the care of this patient. 03/22 61-year-old male with acute renal failure and evidence of bladder outlet obstruction with elevated PSA and family history of prostate cancer with blastic lesions of pelvis on CT scan For cysto/clot evacuation/RPG's with possible stents and bladder bx with fulguration if necessary in OR today NPO Risks and benefits discussed with pt and daughter at bedside. 03/23 61-year-old male with acute renal failure and evidence of bladder outlet obstruction with elevated PSA and family history of prostate cancer with blastic lesions of pelvis on CT scan s/p cystoscopy with clot evacuation and b/ l JJ stent insertion Continue Amicar CBI Irrigate prn Will need PNBx in the future after ARF has resolved and overall condition is improved. Maybe done as outpt. 03/28 Resolved gross hematuria Maintain Carson catheter to gravity drainage Will eventually require transrectal ultrasound and prostate needle biopsy to confirm diagnosis of prostate cancer, this may be performed as an outpatient. 04/04 61 y.o male with ARF/gross hematuria/elevated PSA with probable CaP with h/o left hydronephrosis after b/l stent insertion Will obtain CT scan to evaluate resolution of left hydronephrosis PNBx as outpt. 04/05 61 y.o male with ARF/gross hematuria/elevated PSA with probable CaP with h/o left hydronephrosis after b/l stent insertion CT scan showing resolution of bilateral hydronephrosis with bilateral JJ stent insertion with carson in place Gross hematuria has resolved-off Amicar Elevated PSA: PNBX in the future. 04/06 61 y.o male with ARF/Gross hematuria and elevated PSA. Will need outpt PNBX Maintain carson catheter Leg bag teaching 04/07 61 y.o male with ARF/Gross hematuria and elevated PSA. Will need outpt PNBX Maintain carson catheter Leg bag teaching Outpatient dialysis to be done without using heparin please 04/08 61 y.o male with ARF/Gross hematuria and newly diagnosed metastatic prostate cancer Continue carson and d/c in place. F/U mid April for void trial Leg bag teaching Start Flomax now for void trial in future 04/11 61 y.o male with ARF/Gross hematuria and newly diagnosed metastatic prostate cancer Continue carson drainage. F/U mid April for void trial Leg bag teaching Continue Flomax Zion Fnie DO Apr 11, 2017 08:17
[2017-04-11] MEDS: CALCIUM ACETATE 667 MG CAP PO SCH ×3 (09:15→19:50)
[2017-04-11] MEDS: PANTOPRAZOLE SOD 40 MG DELAYED RELEASE TAB PO SCH (09:16)
[2017-04-11] MEDS: THIAMINE HCL 100 MG TAB PO SCH (09:16)
[2017-04-11] MEDS: CHOLECALCIFEROL (VIT D3) 5000 UNIT CAP PO SCH (09:16)
[2017-04-11] MEDS: TAMSULOSIN HCL 0.4 MG CAP PO SCH (09:16)
[2017-04-11] MEDS: BICALUTAMIDE 50 MG TAB PO SCH (09:17)
[2017-04-11] MEDS: DOXAZOSIN MESYLATE 2 MG TAB PO SCH (09:20)
[2017-04-11] MEDS: METOPROLOL TARTRATE 25 MG TAB PO SCH ×2 (09:20→20:40)
[2017-04-11] MEDS: SODIUM CHLORIDE 0.9% FLUSH 10 ML FLUSH IV FLUSH SCH ×2 (09:20→20:40)
[2017-04-11] MEDS: DOCUSATE SODIUM 50 MG/SENNA 8.6 MG TAB PO SCH ×2 (09:21→20:40)
--- NOTE | 2017-04-11 12:09 | PD.VS.PN ---
Subjective Subjective/Hospital Course Pt Alert in NAD W/O complaints Questions answered/AVF creation Objective Vitals/I&O Date Time Temp Pulse Resp B/P Pulse Ox O2 Delivery O2 Flow Rate FiO2 04/11/17 08:30 Room Air 04/11/17 08:00 98.4 50 18 193/86 96 168/74 04/11/17 04:00 97.3 63 17 176/74 99 04/11/17 00:00 96.7 57 16 169/72 97 04/10/17 21:03 98 Room Air 04/10/17 20:00 96.9 57 17 167/76 98 04/10/17 16:00 97.7 55 16 155/72 96 04/10/17 12:26 98.6 55 20 162/72 95 04/11/17 04/11/17 04/11/17 07:00 15:00 23:00 Intake Total 480 ml 240 ml Output Total 625 ml Balance -145 ml 240 ml Assessment and Plan Assessment: (1) Renal failure Status: Acute Plan Plan Arranged for out patient follow up Will see patient in our OPC to discuss risks of surgery and life expectancy before moving forward with a surgical procedure Patient agreed with plan Trice JUAREZ [facility] [phone] Discharge Planning Will F/U in our OPC Appointment time/date was given to patient Problem Qualifiers (1) Renal failure: Qualified Code: N17.9 - Acute renal failure, unspecified acute renal failure type Trice Lindsay Apr 11, 2017 12:09
[2017-04-11] MEDS: EPOETIN ALFA 10,000 UNITS/ML VIAL IV PRN (12:30)
[2017-04-11] MEDS: GENTAMICIN SULFATE (DIALYSIS USE ONLY) 20 MG/2 ML VIAL IV PRN (12:30)
[2017-04-11] MEDS: HEPARIN SODIUM - IV 10,000 UNITS/10 ML VIAL PRN (12:30)
[2017-04-11 13:00] VITALS: BP 163/70; PULSE 58; RESP 18; TEMP 97.7; O2SAT 96
--- NOTE | 2017-04-11 14:30 | HHI.NPPN ---
Subjective History of Present Illness 61 year old with ARF no recovery metastatic prostate Ca ESRD Additional Remarks Patient is alert, feeling good, no complain. Review of Systems General Constitutional: Fatigue Objective Data Data 04/10/17 04/11/17 19:00 07:00 Intake Total 600 ml 960 ml Output Total 550 ml 1025 ml Balance 50 ml -65 ml Intake Oral 600 ml 960 ml Output Urine Total 550 ml 1025 ml Vital Signs Date Time Temp Pulse Resp B/P Pulse Ox O2 Delivery O2 Flow Rate FiO2 04/11/17 13:00 97.7 58 18 163/70 96 04/11/17 08:30 Room Air 04/11/17 08:00 98.4 50 18 193/86 96 168/74 04/11/17 04:00 97.3 63 17 176/74 99 04/11/17 00:00 96.7 57 16 169/72 97 04/10/17 21:03 98 Room Air 04/10/17 20:00 96.9 57 17 167/76 98 04/10/17 16:00 97.7 55 16 155/72 96 -: 04/09/17 0518 04/08/17 0530 Physical Exam General Appearance: Well Developed, Well Nourished, No Acute Distress, Comfortable Pulmonary Resp Exam: Clear Bilaterally, Breath Sounds Equal Cardiology CV Exam: Regular, Normal Sinus Rhythm Gastrointestinal/Abdomen GI Exam: Soft, Non-Tender, Bowel Sounds Present Extremeties Extremities Exam: Moderate Edema Neurologic Neuro Exam: Alert, Awake, Oriented Psychiatric Psych Exam: Appropriate Responses Assessment/Plan Problem List: (1) ESRD (end stage renal disease) on dialysis Plan: NO RECOVERY from ARF long standing Obstructive uropathy leading to irreversible damage hemodialysis to continue MWF. notified [facility]F placement as out pt has metastatic Prostate cancer. Awaiting put patient HD arrangement. HD again in AM. (2) Acute renal failure Plan: Metastatic Prostate Cancer HD post PermCath follow BMP no recovery (3) Uropathy, obstructive Plan: Metastatic Prostate Cancer followed by urology (4) Anemia Plan: on epogen (5) hypertension Plan: on Norvasc 10 mg/ Metoprolol. BP is elevated off and on, he has been refusing to take meds. off and on. Problem Qualifiers (1) Anemia: Qualified Code: D64.9 - Anemia, unspecified type Karena Duval MD Apr 11, 2017 14:29
[2017-04-11 16:00] VITALS: BP 164/86; PULSE 54; RESP 18; TEMP 98.5; O2SAT 97
--- NOTE | 2017-04-11 16:21 | HHI.PR ---
Subjective Remarks denies cp/sob bp elevated Objective Vitals Vital Signs Date Time Temp Pulse Resp B/P Pulse Ox O2 Delivery O2 Flow Rate FiO2 04/11/17 13:00 97.7 58 18 163/70 96 04/11/17 08:30 Room Air 04/11/17 08:00 98.4 50 18 193/86 96 168/74 04/11/17 04:00 97.3 63 17 176/74 99 04/11/17 00:00 96.7 57 16 169/72 97 04/10/17 21:03 98 Room Air 04/10/17 20:00 96.9 57 17 167/76 98 I/O 04/10/17 04/10/17 04/10/17 04/11/17 04/11/17 04/11/17 06:59 14:59 22:59 06:59 14:59 22:59 Intake Total 600 ml 480 ml 480 ml 720 ml Output Total 600 ml 550 ml 400 ml 625 ml 350 ml Balance -600 ml 50 ml 80 ml -145 ml 370 ml Intake Oral 600 ml 480 ml 480 ml 720 ml Output Urine Total 600 ml 550 ml 400 ml 625 ml 350 ml # Bowel Movements 0 Result Diagram: 04/09/17 0518 04/08/17 0530 Objective Remarks AAOx3 clear lungs BL S1S2 RRR no CVA tenderness Procedures 03/31- CT guided biospy right ilium 03/29- permacath placement A/P Problem List: (1) obstructive uropathy, renal failure Status: Acute (2) Bladder mass ICD Code: N32.89 Status: Acute (3) apparent bony metastases, elevated PSA, suspected prostate cancer Status: Acute (4) acute renal failure, on dialysis Status: Acute (5) hypertension Status: Chronic (6) Anemia due to acute blood loss ICD Code: D62 Status: Acute Assessment and Plan (1) obstructive uropathy, renal failure Plan: Patient presented with acute kidney injury secondary to obstructive uropathy due to bladder mass. 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 The patient underwent cystoscopy with ureteral stenting on 03/[address] Fine The patient currently on hemodialysis since 03/22. Maintain Pollock catheter. as per urology hemodialysis should be without heparin (2) Bladder mass Status: Acute Plan: Patient had a repeat cystoscopy with fulguration of bleeding sites urinary bladder on 03/24. CT abdomen/pelvis obtained on shows resolution of bilateral hydronephrosis with bilateral JJ stent insertion with folding place. Appreciate input from urology, nephrology, oncology and palliative care medicine. (3) Metastatic prostate Cancer Plan: Status post biopsy of the left iliac crest lesion as detailed above, positive for metastatic carcinoma of the prostate. Follow-up oncology recommendations - patient started on Bicalutamide as per oncology. 04/08 Palliative Care following (4) acute renal failure, on dialysis Plan: Secondary to obstructive uropathy, due to bladder mass. Creatinine not recovering and patient now hemodialysis dependent. Follow-up nephrology recommendations (5) hypertension Plan: Blood pressure seems to be elevated in the 150s and 160s systolic. Patient on Norvasc and metoprolol however did not get this medications since he was on hemodialysis. 04/08 blood pressure still severely uncontrolled and persistently elevated into the systolic blood pressure 180s. I will start the patient on doxazosin 2 mg by mouth daily and adjust the dose accordingly. 04/09 Patient did not get Doxazosin because he was on dialysis. Continue doxazosin, Norvasc and metoprolol. Continue to monitor vital signs 04/10 Patient is refusing antihypertensive medications - Doxazosin and amlodipine. (6) Anemia due to acute blood loss Plan: Anemia secondary to hematuria and possible metastases. Hematology consulted. Input appreciated. Status post transfusion of 8 units of PRBCs since admission. Continue to monitor hemoglobin GI prophylaxis: Continue Protonix. DVT prophylaxis: SCDs, no chemoprophylaxis given recent severe blood loss anemia. Discharge Planning SSI pending. Not a safe discharge -dialysis is still not set up. Jersey Arrieta MD Apr 11, 2017 16:21
[2017-04-11] MEDS: SODIUM CHLORIDE 0.9% IRRIGATION SCH (17:00)
[2017-04-11] MEDS: IRR IRRIGATION SCH (17:00)
[2017-04-11 20:00] VITALS: BP 165/73; PULSE 60; RESP 18; TEMP 98.6; O2SAT 99
[2017-04-12] VITALS: BP 177/76; PULSE 54; RESP 18; TEMP 98.6; O2SAT 97
[2017-04-12] MEDS: cloNIDine HCL 0.1 MG TAB PO PRN (03:42)
[2017-04-12 04:00] VITALS: BP 189/79; PULSE 56; RESP 20; TEMP 98.7; O2SAT 98
[2017-04-12] MEDS: CHLORHEXIDINE GLUCONATE 2 % 1 PACK (2 CLOTHS) TOP SCH (04:00)
[2017-04-12 05:33] LABS: AUTOMATED NEUTROPHIL # 5.3 TH/MM3 (1.8-7.7); BASOPHIL # 0.2 TH/MM3 (0-0.2); BASOPHIL % 1.7 % (0.0-2.0); EOSINOPHIL # 0.7 TH/MM3 (0-0.4); EOSINOPHIL % 7.2 % (0.0-4.0); HEMATOCRIT 26.2 % (39.0-51.0); HEMO FLAGS DIFF FINAL; LYMPH % 29.5 % (9.0-44.0); MEAN CELL VOLUME 90.4 FL (80.0-100.0); MEAN CORPUSCULAR HEMOGLOBIN 29.8 PG (27.0-34.0); MONO % 9.1 % (0.0-8.0); NEUT % 52.5 % (16.0-70.0); PLATELET COUNT 235 TH/MM3 (150-450); RED CELL DISTRIBUTION WIDTH 16.8 % (11.6-17.2); WHITE BLOOD COUNT 10.1 TH/MM3 (4.0-11.0)
[2017-04-12 05:58] LABS: BICARBONATE 30.7 MEQ/L (21.0-32.0); POTASSIUM 4.4 MEQ/L (3.5-5.1)
[2017-04-12 08:33] VITALS: BP 183/77; PULSE 48; RESP 16; TEMP 96.7; O2SAT 99
[2017-04-12] MEDS: PANTOPRAZOLE SOD 40 MG DELAYED RELEASE TAB PO SCH (08:43)
[2017-04-12] MEDS: SODIUM CHLORIDE 0.9% FLUSH 10 ML FLUSH IV FLUSH SCH ×2 (08:43→19:56)
[2017-04-12] MEDS: CHOLECALCIFEROL (VIT D3) 5000 UNIT CAP PO SCH (08:43)
[2017-04-12] MEDS: TAMSULOSIN HCL 0.4 MG CAP PO SCH (08:44)
[2017-04-12] MEDS: BICALUTAMIDE 50 MG TAB PO SCH (08:44)
[2017-04-12] MEDS: DOXAZOSIN MESYLATE 2 MG TAB PO SCH (08:44)
[2017-04-12] MEDS: CALCIUM ACETATE 667 MG CAP PO SCH ×3 (08:44→18:58)
[2017-04-12] MEDS: THIAMINE HCL 100 MG TAB PO SCH (08:44)
[2017-04-12] MEDS: METOPROLOL TARTRATE 25 MG TAB PO SCH ×2 (08:46→19:55)
[2017-04-12] MEDS: DOCUSATE SODIUM 50 MG/SENNA 8.6 MG TAB PO SCH ×2 (08:46→19:55)
--- NOTE | 2017-04-12 11:11 | HHI.PR ---
Subjective Patient symptoms today Pt feels well. s/p dialysis yesterday. Urine clear. Objective Vital Signs Vital Signs Date Time Temp Pulse Resp B/P Pulse Ox O2 Delivery O2 Flow Rate FiO2 04/12/17 08:33 96.7 48 16 183/77 99 04/12/17 04:00 98.7 56 20 189/79 98 04/12/17 00:00 98.6 54 18 177/76 97 04/11/17 20:00 98.6 60 18 165/73 99 04/11/17 16:00 98.5 54 18 164/86 97 04/11/17 13:00 97.7 58 18 163/70 96 Intake & Output 04/12/17 04/12/17 06:59 18:59 Intake Total 240 ml Output Total 325 ml Balance -85 ml Intake Oral 240 ml Output Urine Total 325 ml Result Diagram: 04/12/1742904/12/17429 Objective Remarks Abd:soft, tender over bladder Ext:2+ edema 03/23 Abd: soft,nt,nd Carson: blood tinged on Amicar CBI 03/[address] draining clear urine Abdomen soft, nondistended, nontender 04/04 Abd:soft,nt,nd Carson: urine clear; off Amicar 04/05 Abd:soft,nt,nd Urine clear Moving bowels 04/06 Abd:soft,nt,nd Urine clear 04/07 Abd:soft,nt,nd Urine clear 04/08 Abd:soft,nt,nd Urine clear 04/11 Abd:soft,nt,nd Urine clear 04/12 Abd:soft,nt,nd Urine clear Medications and IVs Current Medications Medications (Trade) Dose Ordered Sig/Nasreen Route Start Time Stop Time Status Last Admin (NS Flush) 2 ml UNSCH PRN IV FLUSH 03/20/17 18:15 (NS Flush) 2 ml BID IV FLUSH 03/20/17 21:00 04/12/17 08:43 (Tylenol) 650 mg Q6H PRN PO 03/20/17 18:15 ([place] 5-325 Mg) 1 tab Q4H PRN PO 03/20/17 18:15 03/30/17 09:12 (Morphine Inj) 2 mg Q2H PRN IV PUSH 03/20/17 18:30 03/26/17 02:06 (Zofran Inj) 4 mg Q6H PRN IV 03/20/17 18:15 03/23/17 17:52 Miscellaneous Information 1 Q361D XX 03/20/17 18:15 03/20/17 21:46 (Chlorhexidine 2% Cloth) 3 pack Taper DAILY@04 TOP 03/21/17 04:00 03/17/18 03:59 04/12/17 04:00 (Chlorhexidine 2% Cloth) 3 pack UNSCH PRN TOP 03/20/17 18:15 (Negin-Colace) 1 tab BID PO 03/20/17 21:00 04/10/17 09:09 (Milk Of Magnesia Liq) 30 ml Q12H PRN PO 03/20/17 18:15 04/04/17 09:04 (Senokot) 17.2 mg Q12H PRN PO 03/20/17 18:15 (Dulcolax Supp) 10 mg DAILY PRN RECTAL 03/20/17 18:15 04/05/17 08:12 (Lactulose Liq) 30 ml DAILY PRN PO 03/20/17 18:15 04/03/17 17:28 Calcium Acetate 667 mg 667 mg TID PO 03/21/17 18:00 04/12/17 08:44 Sodium Chloride 1,000 ml @ 0 mls/hr Q0M PRN IV 03/22/17 11:58 03/25/17 14:07 Sodium Chloride 1,000 ml @ 200 mls/hr Q5H PRN IV 03/22/17 11:58 04/02/17 11:01 (NS 1000 ml Inj) 1,000 ml @ 0 mls/hr Q0M PRN IV 03/22/17 11:58 (Mannitol Inj) 12.5 gm UNSCH PRN IV 03/22/17 12:00 (Albumin 25% Inj) 25 gm UNSCH PRN IV 03/22/17 12:00 (NS Flush) 5 ml UNSCH PRN IV FLUSH 03/22/17 12:00 (Heparin Inj) UNSCH PRN .XX 03/22/17 12:00 04/11/17 12:30 (Gentamicin (Dialysis) Inj) 20 mg UNSCH PRN IV 03/22/17 12:00 04/11/17 12:30 (Zofran Inj) 4 mg UNSCH PRN IV 03/22/17 12:00 (Tylenol) 650 mg UNSCH PRN PO 03/22/17 12:00 (Benadryl) 25 mg UNSCH PRN PO 03/22/17 12:00 (Nitrostat Sl) 0.4 mg UNSCH PRN SL 03/22/17 12:00 (Catapres) 0.1 mg UNSCH PRN PO 03/22/17 12:00 04/12/17 03:42 (Epogen Inj) 10,000 units UNSCH PRN IV 03/22/17 12:00 04/11/17 12:30 (Gelfoam 12 Mm/7 Mm Top) 1 foam UNSCH PRN TOP 03/22/17 12:00 Cholecalciferol 5000 units 5,000 units DAILY PO 03/23/17 09:00 04/12/17 08:43 (NS Irr Bag) 3,000 ml @ 125.5 mls/ hr Q24H IRRIGATION 03/23/17 17:00 03/31/17 17:00 (Narcan Inj) 0.4 mg Q2M PRN IV PUSH 03/23/17 17:00 (Vitamin B1) 100 mg DAILY PO 03/26/17 11:45 04/12/17 08:44 (Romazicon Inj) 0.2 mg Q1M PRN IV PUSH 03/26/17 11:30 (Ativan) 1 mg Q4H PRN PO 03/26/17 11:30 03/27/17 10:52 (Ativan Inj) 1 mg Q4H PRN IV PUSH 03/26/17 11:30 (Ativan) 2 mg Q2H PRN PO 03/26/17 11:30 03/28/17 00:15 (Ativan Inj) 2 mg Q2H PRN IV PUSH 03/26/17 11:30 (Ativan Inj) 2 mg Q1H PRN IV PUSH 03/26/17 11:30 (Ativan Inj) 2 mg Q15M PRN IV PUSH 03/26/17 11:30 (Haldol Inj) 2 mg Q15M PRN IM 03/26/17 11:30 (NS Flush) UNSCH PRN IVF 03/29/17 10:00 (Heparin Inj) UNSCH PRN IV FLUSH 03/29/17 10:00 (Protonix) 40 mg DAILY PO 04/03/17 09:00 04/12/17 08:43 (Norvasc) 10 mg DAILY PO 04/05/17 09:00 04/08/17 09:06 (Lopressor) 12.5 mg Q12HR PO 04/04/17 21:00 04/11/17 20:40 (Pill Splitter) 1 ea UNSCH PRN OTHER 04/04/17 11:00 (Cardura) 2 mg DAILY PO 04/08/17 11:00 04/12/17 08:44 (Casodex) 50 mg DAILY PO 04/09/17 09:00 04/12/17 08:44 (Flomax) 0.4 mg DAILY PO 04/08/17 16:00 04/12/17 08:44 Assessment and Plan Assessment and Plan 61-year-old male with acute renal failure and evidence of bladder outlet obstruction with elevated PSA and family history of prostate cancer. Maintain Carson catheter and monitor for postobstructive diuresis. Holding replacement fluids at present due to evidence of pulmonary edema on chest x-ray. CT scan ordered for later today. We'll start Flomax in the future once his creatinine starts to baseline. Once Carson catheter has been removed and he is voiding we'll need to repeat PSA at that time. We'll follow with you. Thank you for the consult and allowing me to participate in the care of this patient. 03/22 61-year-old male with acute renal failure and evidence of bladder outlet obstruction with elevated PSA and family history of prostate cancer with blastic lesions of pelvis on CT scan For cysto/clot evacuation/RPG's with possible stents and bladder bx with fulguration if necessary in OR today NPO Risks and benefits discussed with pt and daughter at bedside. 03/23 61-year-old male with acute renal failure and evidence of bladder outlet obstruction with elevated PSA and family history of prostate cancer with blastic lesions of pelvis on CT scan s/p cystoscopy with clot evacuation and b/ l JJ stent insertion Continue Amicar CBI Irrigate prn Will need PNBx in the future after ARF has resolved and overall condition is improved. Maybe done as outpt. 03/28 Resolved gross hematuria Maintain Carson catheter to gravity drainage Will eventually require transrectal ultrasound and prostate needle biopsy to confirm diagnosis of prostate cancer, this may be performed as an outpatient. 04/04 61 y.o male with ARF/gross hematuria/elevated PSA with probable CaP with h/o left hydronephrosis after b/l stent insertion Will obtain CT scan to evaluate resolution of left hydronephrosis PNBx as outpt. 04/05 61 y.o male with ARF/gross hematuria/elevated PSA with probable CaP with h/o left hydronephrosis after b/l stent insertion CT scan showing resolution of bilateral hydronephrosis with bilateral JJ stent insertion with carson in place Gross hematuria has resolved-off Amicar Elevated PSA: PNBX in the future. 04/06 61 y.o male with ARF/Gross hematuria and elevated PSA. Will need outpt PNBX Maintain carson catheter Leg bag teaching 04/07 61 y.o male with ARF/Gross hematuria and elevated PSA. Will need outpt PNBX Maintain carson catheter Leg bag teaching Outpatient dialysis to be done without using heparin please 04/08 61 y.o male with ARF/Gross hematuria and newly diagnosed metastatic prostate cancer Continue carson and d/c in place. F/U mid April for void trial Leg bag teaching Start Flomax now for void trial in future 04/11 61 y.o male with ARF/Gross hematuria and newly diagnosed metastatic prostate cancer Continue carson drainage. F/U mid April for void trial Leg bag teaching Continue Flomax 04/12 61 y.o male with ARF/Gross hematuria and newly diagnosed metastatic prostate cancer Continue carson drainage. F/U mid April for void trial Zion Fine DO Apr 12, 2017 11:11
--- NOTE | 2017-04-12 11:35 | HHI.NPPN ---
Subjective History of Present Illness 61 year old with ARF no recovery metastatic prostate Ca ESRD Additional Remarks Patient is alert, feeling good, no complain. Review of Systems General Constitutional: Fatigue Objective Data Data 04/11/17 04/12/17 19:00 07:00 Intake Total 720 ml 240 ml Output Total 700 ml 325 ml Balance 20 ml -85 ml Intake Oral 720 ml 240 ml Output Urine Total 700 ml 325 ml # Bowel Movements 0 Vital Signs Date Time Temp Pulse Resp B/P Pulse Ox O2 Delivery O2 Flow Rate FiO2 04/12/17 08:33 96.7 48 16 183/77 99 04/12/17 04:00 98.7 56 20 189/79 98 04/12/17 00:00 98.6 54 18 177/76 97 04/11/17 20:00 98.6 60 18 165/73 99 04/11/17 16:00 98.5 54 18 164/86 97 04/11/17 13:00 97.7 58 18 163/70 96 -: 04/12/17 0430 04/12/17 0430 Physical Exam General Appearance: Well Developed, Well Nourished, No Acute Distress, Comfortable Pulmonary Resp Exam: Clear Bilaterally, Breath Sounds Equal Cardiology CV Exam: Regular, Normal Sinus Rhythm Gastrointestinal/Abdomen GI Exam: Soft, Non-Tender, Bowel Sounds Present Extremeties Extremities Exam: Moderate Edema Neurologic Neuro Exam: Alert, Awake, Oriented Psychiatric Psych Exam: Appropriate Responses Assessment/Plan Problem List: (1) ESRD (end stage renal disease) on dialysis Plan: NO RECOVERY from ARF long standing Obstructive uropathy leading to irreversible damage hemodialysis to continue MWF. notified out pt clinic Clinic AVF placement as out pt has metastatic Prostate cancer. Awaiting put patient HD arrangement. HD on Tue (2) Acute renal failure Plan: Metastatic Prostate Cancer HD post PermCath follow BMP no recovery (3) Uropathy, obstructive Plan: Metastatic Prostate Cancer followed by urology (4) Anemia Plan: on epogen (5) hypertension Plan: on Norvasc 10 mg/ Metoprolol. BP is elevated off and on, he has been refusing to take meds. off and on. Problem Qualifiers (1) Anemia: Qualified Code: D64.9 - Anemia, unspecified type Karena Duval MD Apr 12, 2017 11:35
[2017-04-12 12:58] VITALS: BP 165/71; PULSE 50; RESP 16; TEMP 97; O2SAT 98
[2017-04-12] MEDS: IRR IRRIGATION SCH (13:25)
[2017-04-12] MEDS: SODIUM CHLORIDE 0.9% IRRIGATION SCH (13:25)
[2017-04-12 16:00] VITALS: BP 159/71; PULSE 53; RESP 16; TEMP 97.4; O2SAT 98
--- NOTE | 2017-04-12 16:15 | HHI.PR ---
Subjective Remarks bp elevated denies cp/sob patient anxious to go home Objective Vitals Vital Signs Date Time Temp Pulse Resp B/P Pulse Ox O2 Delivery O2 Flow Rate FiO2 04/12/17 12:58 97.0 50 16 165/71 98 04/12/17 08:45 Room Air 04/12/17 08:33 96.7 48 16 183/77 99 04/12/17 04:00 98.7 56 20 189/79 98 04/12/17 00:00 98.6 54 18 177/76 97 04/11/17 20:00 98.6 60 18 165/73 99 I/O 04/11/17 04/11/17 04/11/17 04/12/17 04/12/17 04/12/17 06:59 14:59 22:59 06:59 14:59 22:59 Intake Total 480 ml 720 ml 240 ml Output Total 625 ml 350 ml 675 ml Balance -145 ml 370 ml -675 ml 240 ml Intake Oral 480 ml 720 ml 240 ml Output Urine Total 625 ml 350 ml 675 ml # Bowel Movements 0 Result Diagram: 04/12/17 0430 04/12/17 0430 Imaging Last Impressions Abdomen CT 04/05/17 0000 Signed Impressions: Service Date/Time: Wednesday, April 05, 2017 09:06 - CONCLUSION: 1. Interval placement of double-J bilateral ureteral stents with significant interval improvement of previously noted severe bilateral hydronephrosis. Residual mild right and [id number] left hydronephrosis, as above. 2. Redemonstration of blastic osseous metastatic disease. 3. Stable small to moderate bilateral pleural effusions. Ferdinand Fisher MD Bone Biopsy CT 03/31/17 1346 Signed Impressions: Service Date/Time: March 14:07 - CONCLUSION: Uncomplicated CT guided biopsy. David Peña MD Upper Extremity Ultrasound 03/29/17 0000 Signed Impressions: Service Date/Time: Wednesday, March 29, 2017 08:43 - CONCLUSION: Normal examination. Art John MD Catheter Placement X-Ray 03/29/17 0000 Signed Impressions: Service Date/Time: Wednesday, March 29, 2017 08:50 - CONCLUSION: Uncomplicated PermaCath placement as above. Ferdinand Fisher MD Renal Ultrasound 03/25/17 0000 Signed Impressions: Service Date/Time: Saturday, March 25, 2017 22:14 - CONCLUSION: Marked hydronephrosis, Grade IV left kidney. There is no hydronephrosis on the right. Markedly thickened bladder wall. Damien Peña MD FACR Chest X-Ray 03/22/17 Signed Impressions: Service Date/Time: Wednesday, March 22, 2017 16:05 - CONCLUSION: 1. Diffuse increased interstitial markings likely representing pulmonary edema. There is prominence of the central pulmonary vessels. 2. Hazy density bases with silhouetting hemidiaphragms from superimposed areas of consolidation/ atelectasis and effusions. Art Olivera MD Chest CT 03/21/17 Signed Impressions: Service Date/Time: Tuesday, March 21, 2017 13:03 - CONCLUSION: 1. Moderate to large bilateral pleural effusions with associated compressive atelectasis in the lower lobes. 2. Bilateral patchy somewhat nodular groundglass opacities with upper lobe predominance likely related to positive fluid balance. 3. Diffuse sclerotic metastasis to the thoracic vertebra, ribs, and left scapula. 4. Bilateral moderate to severe hydronephrosis, incompletely imaged on this exam. This is similar to yesterday's ultrasound exam. 5. 3.6 cm coarsely calcified left thyroid nodule. This can be further evaluated with thyroid ultrasound as indicated. Ferdinand Fisher MD Abdomen/Pelvis CT 03/21/17 Signed Impressions: Service Date/Time: Tuesday, March 21, 2017 13:03 - CONCLUSION: Large bladder mass with bone metastases. Small bilateral pleural effusions. Minimal retroperitoneal adenopathy. Damien Peña MD FACR Lower Extremity Ultrasound 03/20/17 0000 Signed Impressions: Service Date/Time: Monday, March 20, 2017 17:30 - CONCLUSION: Normal examination. Sebastián Greer MD Objective Remarks AAOx3 clear lungs BL S1S2 RRR no CVA tenderness Procedures 03/31- CT guided biospy right ilium 03/29- permacath placement Medications and IVs Current Medications Medications (Trade) Dose Ordered Sig/Nasreen Route Start Time Stop Time Status Last Admin (NS Flush) 2 ml UNSCH PRN IV FLUSH 03/20/17 18:15 (NS Flush) 2 ml BID IV FLUSH 03/20/17 21:00 04/12/17 08:43 (Tylenol) 650 mg Q6H PRN PO 03/20/17 18:15 ([place] 5-325 Mg) 1 tab Q4H PRN PO 03/20/17 18:15 03/30/17 09:12 (Morphine Inj) 2 mg Q2H PRN IV PUSH 03/20/17 18:30 03/26/17 02:06 (Zofran Inj) 4 mg Q6H PRN IV 03/20/17 18:15 03/23/17 17:52 Miscellaneous Information 1 Q361D XX 03/20/17 18:15 03/20/17 21:46 (Chlorhexidine 2% Cloth) 3 pack Taper DAILY@04 TOP 03/21/17 04:00 03/17/18 03:59 04/12/17 04:00 (Chlorhexidine 2% Cloth) 3 pack UNSCH PRN TOP 03/20/17 18:15 (Negin-Colace) 1 tab BID PO 03/20/17 21:00 04/10/17 09:09 (Milk Of Magnesia Liq) 30 ml Q12H PRN PO 03/20/17 18:15 04/04/17 09:04 (Senokot) 17.2 mg Q12H PRN PO 03/20/17 18:15 (Dulcolax Supp) 10 mg DAILY PRN RECTAL 03/20/17 18:15 04/05/17 08:12 (Lactulose Liq) 30 ml DAILY PRN PO 03/20/17 18:15 04/03/17 17:28 Calcium Acetate 667 mg 667 mg TID PO 03/21/17 18:00 04/12/17 13:24 Sodium Chloride 1,000 ml @ 0 mls/hr Q0M PRN IV 03/22/17 11:58 03/25/17 14:07 Sodium Chloride 1,000 ml @ 200 mls/hr Q5H PRN IV 03/22/17 11:58 04/02/17 11:01 (NS 1000 ml Inj) 1,000 ml @ 0 mls/hr Q0M PRN IV 03/22/17 11:58 (Mannitol Inj) 12.5 gm UNSCH PRN IV 03/22/17 12:00 (Albumin 25% Inj) 25 gm UNSCH PRN IV 03/22/17 12:00 (NS Flush) 5 ml UNSCH PRN IV FLUSH 03/22/17 12:00 (Heparin Inj) UNSCH PRN .XX 03/22/17 12:00 04/11/17 12:30 (Gentamicin (Dialysis) Inj) 20 mg UNSCH PRN IV 03/22/17 12:00 04/11/17 12:30 (Zofran Inj) 4 mg UNSCH PRN IV 03/22/17 12:00 (Tylenol) 650 mg UNSCH PRN PO 03/22/17 12:00 (Benadryl) 25 mg UNSCH PRN PO 03/22/17 12:00 (Nitrostat Sl) 0.4 mg UNSCH PRN SL 03/22/17 12:00 (Catapres) 0.1 mg UNSCH PRN PO 03/22/17 12:00 04/12/17 03:42 (Epogen Inj) 10,000 units UNSCH PRN IV 03/22/17 12:00 04/11/17 12:30 (Gelfoam 12 Mm/7 Mm Top) 1 foam UNSCH PRN TOP 03/22/17 12:00 Cholecalciferol 5000 units 5,000 units DAILY PO 03/23/17 09:00 04/12/17 08:43 (NS Irr Bag) 3,000 ml @ 125.5 mls/ hr Q24H IRRIGATION 03/23/17 17:00 03/31/17 17:00 (Narcan Inj) 0.4 mg Q2M PRN IV PUSH 03/23/17 17:00 (Vitamin B1) 100 mg DAILY PO 03/26/17 11:45 04/12/17 08:44 (Romazicon Inj) 0.2 mg Q1M PRN IV PUSH 03/26/17 11:30 (Ativan) 1 mg Q4H PRN PO 03/26/17 11:30 03/27/17 10:52 (Ativan Inj) 1 mg Q4H PRN IV PUSH 03/26/17 11:30 (Ativan) 2 mg Q2H PRN PO 03/26/17 11:30 03/28/17 00:15 (Ativan Inj) 2 mg Q2H PRN IV PUSH 03/26/17 11:30 (Ativan Inj) 2 mg Q1H PRN IV PUSH 03/26/17 11:30 (Ativan Inj) 2 mg Q15M PRN IV PUSH 03/26/17 11:30 (Haldol Inj) 2 mg Q15M PRN IM 03/26/17 11:30 (NS Flush) UNSCH PRN IVF 03/29/17 10:00 (Heparin Inj) UNSCH PRN IV FLUSH 03/29/17 10:00 (Protonix) 40 mg DAILY PO 04/03/17 09:00 04/12/17 08:43 (Norvasc) 10 mg DAILY PO 04/05/17 09:00 04/08/17 09:06 (Lopressor) 12.5 mg Q12HR PO 04/04/17 21:00 04/11/17 20:40 (Pill Splitter) 1 ea UNSCH PRN OTHER 04/04/17 11:00 (Cardura) 2 mg DAILY PO 04/08/17 11:00 04/12/17 08:44 (Casodex) 50 mg DAILY PO 04/09/17 09:00 04/12/17 08:44 (Flomax) 0.4 mg DAILY PO 04/08/17 16:00 04/12/17 08:44 A/P Problem List: (1) obstructive uropathy, renal failure Status: Acute (2) Bladder mass ICD Code: N32.89 Status: Acute (3) apparent bony metastases, elevated PSA, suspected prostate cancer Status: Acute (4) acute renal failure, on dialysis Status: Acute (5) hypertension Status: Chronic (6) Anemia due to acute blood loss ICD Code: D62 Status: Acute Assessment and Plan (1) obstructive uropathy, renal failure Plan: Patient presented with acute kidney injury secondary to obstructive uropathy due to bladder mass. 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 The patient underwent cystoscopy with ureteral stenting on 03/[address] Fine The patient currently on hemodialysis since 03/22. Maintain Pollock catheter. as per urology hemodialysis should be without heparin (2) Bladder mass Status: Acute Plan: Patient had a repeat cystoscopy with fulguration of bleeding sites urinary bladder on 03/24. CT abdomen/pelvis obtained on shows resolution of bilateral hydronephrosis with bilateral JJ stent insertion with folding place. Appreciate input from urology, nephrology, oncology and palliative care medicine. (3) Metastatic prostate Cancer Plan: Status post biopsy of the left iliac crest lesion as detailed above, positive for metastatic carcinoma of the prostate. Follow-up oncology recommendations - patient started on Bicalutamide as per oncology. 04/08 Palliative Care following (4) acute renal failure, on dialysis Plan: Secondary to obstructive uropathy, due to bladder mass. Creatinine not recovering and patient now hemodialysis dependent. Follow-up nephrology recommendations (5) hypertension Plan: Blood pressure seems to be elevated in the 150s and 160s systolic. Patient on Norvasc and metoprolol however did not get this medications since he was on hemodialysis. 04/08 blood pressure still severely uncontrolled and persistently elevated into the systolic blood pressure 180s. I will start the patient on doxazosin 2 mg by mouth daily and adjust the dose accordingly. 04/09 Patient did not get Doxazosin because he was on dialysis. Continue doxazosin, Norvasc and metoprolol. Continue to monitor vital signs 04/10 Patient is refusing antihypertensive medications - Doxazosin and amlodipine. (6) Anemia due to acute blood loss Plan: Anemia secondary to hematuria and possible metastases. Hematology consulted. Input appreciated. Status post transfusion of 8 units of PRBCs since admission. Continue to monitor hemoglobin GI prophylaxis: Continue Protonix. DVT prophylaxis: SCDs, no chemoprophylaxis given recent severe blood loss anemia. Discharge Planning SSI pending. Not a safe discharge -dialysis is still not set up. Jersey Arrieta MD Apr 12, 2017 16:15
[2017-04-12 20:00] VITALS: BP 169/77; PULSE 54; RESP 18; TEMP 98.6; O2SAT 99
[2017-04-13] VITALS: BP 173/75; PULSE 49; RESP 18; TEMP 98.9; O2SAT 99
[2017-04-13] MEDS: CHLORHEXIDINE GLUCONATE 2 % 1 PACK (2 CLOTHS) TOP SCH (04:00)
[2017-04-13 05:30] VITALS: BP 193/76; PULSE 51; RESP 18; TEMP 97.7; O2SAT 96
[2017-04-13] MEDS: cloNIDine HCL 0.1 MG TAB PO PRN (05:49)
[2017-04-13 07:52] LABS: AUTOMATED NEUTROPHIL # 5.7 TH/MM3 (1.8-7.7); BASOPHIL # 0.1 TH/MM3 (0-0.2); BASOPHIL % 1.4 % (0.0-2.0); EOSINOPHIL # 0.7 TH/MM3 (0-0.4); EOSINOPHIL % 6.8 % (0.0-4.0); HEMATOCRIT 26.6 % (39.0-51.0); HEMO FLAGS DIFF FINAL; LYMPH % 28.7 % (9.0-44.0); MEAN CELL VOLUME 89.7 FL (80.0-100.0); MEAN CORPUSCULAR HEMOGLOBIN 30.5 PG (27.0-34.0); MONO % 8.1 % (0.0-8.0); PLATELET COUNT 234 TH/MM3 (150-450); RED BLOOD COUNT 2.96 MIL/MM3 (4.50-5.90); RED CELL DISTRIBUTION WIDTH 16.7 % (11.6-17.2); WHITE BLOOD COUNT 10.4 TH/MM3 (4.0-11.0)
[2017-04-13 08:00] VITALS: BP 179/81; PULSE 46; RESP 16; TEMP 96.7; O2SAT 99
[2017-04-13 08:38] LABS: BICARBONATE 29.6 MEQ/L (21.0-32.0); POTASSIUM 4.8 MEQ/L (3.5-5.1)
[2017-04-13] MEDS: THIAMINE HCL 100 MG TAB PO SCH (09:00)
[2017-04-13] MEDS: CALCIUM ACETATE 667 MG CAP PO SCH ×3 (09:00→13:16)
[2017-04-13] MEDS: DOCUSATE SODIUM 50 MG/SENNA 8.6 MG TAB PO SCH (09:00)
[2017-04-13] MEDS: HEPARIN SODIUM - IV 10,000 UNITS/10 ML VIAL PRN (10:50)
[2017-04-13] MEDS: EPOETIN ALFA 10,000 UNITS/ML VIAL IV PRN (10:50)
[2017-04-13] MEDS: GENTAMICIN SULFATE (DIALYSIS USE ONLY) 20 MG/2 ML VIAL IV PRN (10:51)
[2017-04-13] MEDS: SODIUM CHLOR 0.9% 1000 ML INJ 1,000 ML IV PRN (10:51)
--- NOTE | 2017-04-13 11:51 | HHI.NPPN ---
Subjective History of Present Illness 61 year old with ARF no recovery metastatic prostate Ca ESRD Additional Remarks Patient is alert, feeling good, no complain. Review of Systems General Constitutional: Fatigue Objective Data Data 04/12/17 04/13/17 19:00 07:00 Intake Total 720 ml 480 ml Output Total 750 ml 625 ml Balance -30 ml -145 ml Intake Oral 720 ml 480 ml Output Urine Total 750 ml 625 ml # Bowel Movements 1 Vital Signs Date Time Temp Pulse Resp B/P Pulse Ox O2 Delivery O2 Flow Rate FiO2 04/13/17 08:00 96.7 46 16 179/81 99 04/13/17 05:30 97.7 51 18 193/76 96 04/13/17 00:00 98.9 49 18 173/75 99 04/12/17 20:00 98.6 54 18 169/77 99 04/12/17 16:00 97.4 53 16 159/71 98 04/12/17 12:58 97.0 50 16 165/71 98 -: 04/13/17 0557 04/13/17 0557 Physical Exam General Appearance: Well Developed, Well Nourished, No Acute Distress, Comfortable Pulmonary Resp Exam: Clear Bilaterally, Breath Sounds Equal Cardiology CV Exam: Regular, Normal Sinus Rhythm Gastrointestinal/Abdomen GI Exam: Soft, Non-Tender, Bowel Sounds Present Extremeties Extremities Exam: Moderate Edema Neurologic Neuro Exam: Alert, Awake, Oriented Psychiatric Psych Exam: Appropriate Responses Assessment/Plan Problem List: (1) ESRD (end stage renal disease) on dialysis Plan: NO RECOVERY from ARF long standing Obstructive uropathy leading to irreversible damage hemodialysis to continue MWF. notified out pt clinic Clinic AVF placement as out pt has metastatic Prostate cancer. Awaiting out patient HD arrangement. HD progress noted UF 1.5 L Cr 7.16 (2) Acute renal failure Plan: Metastatic Prostate Cancer HD post PermCath follow BMP no recovery (3) Uropathy, obstructive Plan: Metastatic Prostate Cancer followed by urology (4) Anemia Plan: on epogen (5) hypertension Plan: on Norvasc 10 mg/ Metoprolol. BP is elevated off and on, he has been refusing to take meds. off and on. Problem Qualifiers (1) Anemia: Qualified Code: D64.9 - Anemia, unspecified type Karena Duval MD Apr 13, 2017 11:51
[2017-04-13] MEDS: TAMSULOSIN HCL 0.4 MG CAP PO SCH (13:07)
[2017-04-13] MEDS: BICALUTAMIDE 50 MG TAB PO SCH (13:08)
[2017-04-13] MEDS: DOXAZOSIN MESYLATE 2 MG TAB PO SCH (13:08)
[2017-04-13] MEDS: CHOLECALCIFEROL (VIT D3) 5000 UNIT CAP PO SCH (13:08)
[2017-04-13] MEDS: PANTOPRAZOLE SOD 40 MG DELAYED RELEASE TAB PO SCH (13:08)
[2017-04-13] MEDS: SODIUM CHLORIDE 0.9% FLUSH 10 ML FLUSH IV FLUSH SCH (13:09)
[2017-04-13] MEDS: METOPROLOL TARTRATE 25 MG TAB PO SCH (13:09)
[2017-04-13] MEDS ORDERED: AMLO10 PO (15:45)
[2017-04-13] MEDS ORDERED: CARD2TAB PO (15:45)
[2017-04-13] MEDS ORDERED: CALC667C PO (15:45)
[2017-04-13] MEDS ORDERED: GNP100TA3 PO (15:45)
[2017-04-13] MEDS ORDERED: TAMS5CAP PO (15:45)
--- NOTE | 2017-04-13 15:46 | HHI.DCPOC ---
Discharge Care Plan Diagnosis: (1) ESRD (end stage renal disease) on dialysis (2) Prostate cancer metastatic to bone (3) hypertension (4) Renal failure (5) Anemia due to acute blood loss (6) persistent hematuria (7) anemia requiring transfusion (8) obstructive uropathy, renal failure (9) fatigue, debility Goals to Promote Your Health * To prevent worsening of your condition and complications * To maintain your health at the optimal level Directions to Meet Your Goals Take your medications as prescribed Follow your dietary instruction Follow activity as directed Keep your appointments as scheduled Take your immunizations and boosters as scheduled If your symptoms worsen call your PCP, if no PCP go to Urgent Care Center or Emergency Room Smoking is Dangerous to Your Health. Avoid second hand smoke Call the 24-hour hour crisis hotline for domestic abuse at Jersey Arrieta MD Apr 13, 2017 15:46
--- NOTE | 2017-04-13 15:50 | HHI.DS ---
Discharge Summary Admission Date Mar 20, 2017 at 18:03 Discharge Date: Apr 13, 2017 Admitting Diagnosis Obstructive Uropathy/Renal Failure; Dyspnea; Pulmonary Edema; Anemia (1) obstructive uropathy, renal failure (2) Bladder mass ICD Code: N32.89 (3) apparent bony metastases, elevated PSA, suspected prostate cancer (4) acute renal failure, on dialysis (5) hypertension (6) Anemia due to acute blood loss ICD Code: D62 Procedures 03/31- CT guided biospy right ilium 03/29- permacath placement Brief History - From Admission 61 yo WM with PMH of hypertension (not on medical therapy), daily alcohol use, not followed by primary care physician who presenteds to [facility] emergency department [place] with a chief complaint of shortness of breath. He states that for about the last week he has had cough, orthopnea, shortness of breath. Over the last 3 days he has had pedal edema. He denies chest pain but stated that a week ago he had tightness in his chest while in bed. He denies any exertional chest pain or chest tightness. + dysnea on exertion. He states that he has not been feeling well for 3-4 months after he had an episode of sore throat, sinus congestion, myalgias, low-grade fever. He has had poor appetite for the last couple of months and states that he has lost 8-12 pounds over the last 2 months. He attributes his weight loss to discontinuation of beer 2 months ago. Upon presentation to the ED he was noted to be in renal failure with BUN 189 and Creatinine 21. BNP is 3988. Troponin 0.2. Pollock was placed and he had 1 L urine output immediately. He had hematuria after difficult cathter placement but denies hematuria at home. He does indicate difficulty with voiding completely and with "weak stream". Denies dysuria or flank pain. He is anemic with Hgb 6.8. He has had diarrhea for the last month but denies melena, BRBPR. He has never had an EGD or colonoscopy. He has been taking an Alkaseltzer Cold combination drug daily for 1 week but he is uncertain if it contains NSAIDS. CBC/BMP: 04/13/17 0557 04/13/17 0557 Significant Findings Laboratory Tests Test 04/12/17 04/13/17 04:30 05:57 Red Blood Count 2.90 MIL/MM3 2.96 MIL/MM3 (4.50-5.90) (4.50-5.90) Hemoglobin 8.7 GM/DL 9.0 GM/DL (13.0-17.0) (13.0-17.0) Hematocrit 26.2 % 26.6 % (39.0-51.0) (39.0-51.0) Monocytes (%) (Auto) 9.1 % (0.0-8.0) 8.1 % (0.0-8.0) Eosinophils (%) (Auto) 7.2 % (0.0-4.0) 6.8 % (0.0-4.0) Eosinophils # (Auto) 0.7 TH/MM3 0.7 TH/MM3 (0-0.4) (0-0.4) Blood Urea Nitrogen 32 MG/DL (7-18) 46 MG/DL (7-18) Creatinine 5.45 MG/DL 7.16 MG/DL (0.60-1.30) (0.60-1.30) Estimat Glomerular Filtration 11 ML/MIN (>89) 8 ML/MIN (>89) Rate Calcium Level 8.3 MG/DL (8.5-10.1) Phosphorus Level 2.1 MG/DL (2.5-4.9) Albumin 2.4 GM/DL (3.4-5.0) Random Glucose 72 MG/DL (74-106) Imaging Last Impressions Abdomen CT 04/05/17 0000 Signed Impressions: Service Date/Time: Wednesday, April 05, 2017 09:06 - CONCLUSION: 1. Interval placement of double-J bilateral ureteral stents with significant interval improvement of previously noted severe bilateral hydronephrosis. Residual mild right and [id number] left hydronephrosis, as above. 2. Redemonstration of blastic osseous metastatic disease. 3. Stable small to moderate bilateral pleural effusions. Ferdinand Fisher MD Bone Biopsy CT 03/31/17 4246 Signed Impressions: Service Date/Time: March 14:07 - CONCLUSION: Uncomplicated CT guided biopsy. David Peña MD Upper Extremity Ultrasound 03/29/17 Signed Impressions: Service Date/Time: Wednesday, March 29, 2017 08:43 - CONCLUSION: Normal examination. Art John MD Catheter Placement X-Ray 03/29/17 Signed Impressions: Service Date/Time: Wednesday, March 29, 2017 08:50 - CONCLUSION: Uncomplicated PermaCath placement as above. Ferdinand Fisher MD Renal Ultrasound 03/25/17 Signed Impressions: Service Date/Time: Saturday, March 25, 2017 22:14 - CONCLUSION: Marked hydronephrosis, Grade IV left kidney. There is no hydronephrosis on the right. Markedly thickened bladder wall. Damien Peña MD FACR Chest X-Ray 03/22/17 Signed Impressions: Service Date/Time: Wednesday, March 22, 2017 16:05 - CONCLUSION: 1. Diffuse increased interstitial markings likely representing pulmonary edema. There is prominence of the central pulmonary vessels. 2. Hazy density bases with silhouetting hemidiaphragms from superimposed areas of consolidation/ atelectasis and effusions. Art Olivera MD Chest CT 03/21/17 Signed Impressions: Service Date/Time: Tuesday, March 21, 2017 13:03 - CONCLUSION: 1. Moderate to large bilateral pleural effusions with associated compressive atelectasis in the lower lobes. 2. Bilateral patchy somewhat nodular groundglass opacities with upper lobe predominance likely related to positive fluid balance. 3. Diffuse sclerotic metastasis to the thoracic vertebra, ribs, and left scapula. 4. Bilateral moderate to severe hydronephrosis, incompletely imaged on this exam. This is similar to yesterday's ultrasound exam. 5. 3.6 cm coarsely calcified left thyroid nodule. This can be further evaluated with thyroid ultrasound as indicated. Ferdinand Fisher MD Abdomen/Pelvis CT 03/21/17 Signed Impressions: Service Date/Time: Tuesday, March 21, 2017 13:03 - CONCLUSION: Large bladder mass with bone metastases. Small bilateral pleural effusions. Minimal retroperitoneal adenopathy. Damien Peña MD FACR Lower Extremity Ultrasound 03/20/17 0000 Signed Impressions: Service Date/Time: Monday, March 20, 2017 17:30 - CONCLUSION: Normal examination. Sebastián Greer MD PE at Discharge AAOx3 clear lungs BL S1S2 RRR no CVA tenderness Pt Condition on Discharge: Stable Discharge Disposition: Discharge Home Discharge Time: > 30 minutes Discharge Instructions DIET: Follow Instructions for: Renal Failure Diet Activities you can perform: Regular-No Restrictions Activities to Avoid: Strenuous Activity Follow up Referrals: Appointment for Follow Up @ [facility] ER Heart and Vascular with Dr. Bailon Oncology - 04/13/17 with Cam Arceo MD New Medications: Amlodipine (Norvasc) 10 Mg Tab 10 MG PO DAILY Blood Pressure Management #31 TAB Bicalutamide (Bicalutamide) 50 Mg Tab 50 MG PO DAILY prostate cancer Days 7 TAB Calcium Acetate (Phosphate Bin (Calcium Acetate) 667 Mg Cap 667 MG PO TID high phosphorus #93 CAP Doxazosin (Cardura) 2 Mg Tab 4 MG PO DAILY Blood Pressure Management #31 TAB Tamsulosin (Flomax) 0.4 Mg Cap 0.4 MG PO DAILY Prostate #31 CAP Thiamine HCl (Gnp Vitamin B-1) 100 Mg Tab 100 MG PO DAILY Alcohol Detox #31 TAB Jersey Arrieta MD Apr 13, 2017 15:50
[2017-04-13] MEDS ORDERED: DOXAZOSIN MESYLATE 2 MG TAB PO ONE (16:15)
[2017-04-14] MEDS ORDERED: DOXAZOSIN MESYLATE 4 MG TAB PO SCH (09:00)
== END 2017-04-13 16:53 | disposition home or self-care (01) | DRG 715 ==
LOC: PHED 15:49 → PHEDA 18:03 → N03B 21:13 → HIME 03-28 17:05 → HOCA 04-01 21:55
PROVIDERS: ADMIT Hospitalist; ATTEND Hospitalist
PROC: 0T9B70Z Drainage of Bladder with Drainage Device, Via Natural or Artificial Opening (ICD-10-PCS; 2017-03-20)
PROC: 30233N1 Transfusion of Nonautologous Red Blood Cells into Peripheral Vein, Percutaneous Approach (ICD-10-PCS; 2017-03-20)
PROC: 3E0F7GC Introduction of Other Therapeutic Substance into Respiratory Tract, Via Natural or Artificial Opening (ICD-10-PCS; 2017-03-20)
PROC: 0T788DZ Dilation of Bilateral Ureters with Intraluminal Device, Via Natural or Artificial Opening Endoscopic (ICD-10-PCS; 2017-03-22)
PROC: 0T9B8ZZ Drainage of Bladder, Via Natural or Artificial Opening Endoscopic (ICD-10-PCS; 2017-03-22)
PROC: 0TCB8ZZ Extirpation of Matter from Bladder, Via Natural or Artificial Opening Endoscopic (ICD-10-PCS; 2017-03-22)
PROC: 05HM33Z Insertion of Infusion Device into Right Internal Jugular Vein, Percutaneous Approach (ICD-10-PCS; 2017-03-22)
PROC: 5A1D60Z (ICD-10-PCS; 2017-03-22)
PROC: 0T5C8ZZ Destruction of Bladder Neck, Via Natural or Artificial Opening Endoscopic (ICD-10-PCS; principal; 2017-03-22 11:42)
PROC: 0T5C8ZZ Destruction of Bladder Neck, Via Natural or Artificial Opening Endoscopic (ICD-10-PCS; 2017-03-24)
PROC: 0TCB8ZZ Extirpation of Matter from Bladder, Via Natural or Artificial Opening Endoscopic (ICD-10-PCS; 2017-03-24)
PROC: 05HM33Z Insertion of Infusion Device into Right Internal Jugular Vein, Percutaneous Approach (ICD-10-PCS; 2017-03-29)
PROC: 0QB33ZX Excision of Left Pelvic Bone, Percutaneous Approach, Diagnostic (ICD-10-PCS; 2017-03-31)
DX: C61 Malignant neoplasm of prostate (principal); N18.6 End stage renal disease; J90 Pleural effusion, not elsewhere classified; J81.1 Chronic pulmonary edema; C79.51 Secondary malignant neoplasm of bone; N17.9 Acute kidney failure, unspecified; I12.0 Hypertensive chronic kidney disease with stage 5 chronic kidney disease or end stage renal disease; D62 Acute posthemorrhagic anemia; N13.39 Other hydronephrosis; N13.9 Obstructive and reflux uropathy, unspecified; K40.90 Unilateral inguinal hernia, without obstruction or gangrene, not specified as recurrent; F17.210 Nicotine dependence, cigarettes, uncomplicated; D72.820 Lymphocytosis (symptomatic); N32.89 Other specified disorders of bladder; N32.0 Bladder-neck obstruction; Z51.5 Encounter for palliative care; Z66 Do not resuscitate; K59.00 Constipation, unspecified; M62.50 Muscle wasting and atrophy, not elsewhere classified, unspecified site; Z80.42 Family history of malignant neoplasm of prostate; Z83.3 Family history of diabetes mellitus; Z82.3 Family history of stroke; Z87.442 Personal history of urinary calculi
CPT/HCPCS: 20225; 36430; 36556; 36558; 71010; 71250; 74150; 74176; 74420; 76775; 76937; 77001; 77012; 80048; 80053; 80069; 80074; 81001; 82150; 82306; 82550; 82552; 82570; 82728; 83010; 83540; 83550; 83605; 83690; 83735; 83880; 83970; 84100; 84155; 84165; 84300; 84443; 84484; 84550; 85007; 85014; 85018; 85025; 85027; 85044; 85379; 85384; 85610; 85652; 85730; 86850; 86880; 86900; 86901; 86920; 86965; 87040; 87205; 87641; 88305; 88307; 88311; 88341; 88342; 90935; 93005; 93306; 93970; 93971; 94002; 96374; 96375; 99152; 99153; C1750; C1769; C1830; C9113; G0103; J0360; J0610; J0692; J1580; J1644; J1940; J2060; J2250; J2270; J2310; J2405; J2597; J3010; J7030; J7040; J7050; J7070; J7120; P9016; P9021; Q4081; Q9963

== ENCOUNTER → 2017-05-26 | Outpatient (CLI) | payer OTHER ==
[~2017-05-26] MED LIST changes: +AMLO10 PO; -AMLO5TAB96 PO; +BICA50TA PO; +CALC667C PO; +CASO50TA2 PO; +HYDR-3799 PO; +LEVA500T20 PO; +LUPR22.5 IM; +TAMS5CAP PO
== END ==
LOC: CLAB 09:48
PROVIDERS: ATTEND Urology
DX: C61 Malignant neoplasm of prostate (principal)
CPT/HCPCS: 36415; 84153

== ENCOUNTER → 2017-06-07 | Outpatient (CLI) | payer OTHER ==
[~2017-06-07] MED LIST changes: +MULT-65 PO
--- NOTE | 2017-06-07 13:01 | RADRPT ---
EXAM DATE/TIME: 06/07/2017 11:47 [place] COMPARISON: No previous studies available for comparison. PRIOR BONE SCANS: No correlative bone scan available for comparison. INDICATIONS : Prostate cancer. Sclerotic metastasis to the thoracic vertebra, ribs, and left scapula. DOSE: 31 mCi Tc99m MDP IV MEDICAL HISTORY : Carcinoma, prostate. Hypertension. Renal insufficiency, chronic. Doing Chemo now. SURGICAL HISTORY : Bladder obstruction. Double-J bilateral ureteral stents ENCOUNTER: Initial ACUITY: 4 - 6 months PAIN SCALE: 0/10 LOCATION: Prostate. TECHNIQUE: Three hours post intravenous administration of radiotracer, whole body bone scan imaging was performe d. FINDINGS: Plane are bone scan demonstrates widespread prostate metastatic disease. Largest lesions are in the l eft scapula and left posterior iliac bone. There is also multifocal metastatic disease in the thoraci c and lumbar spine and in multiple bilateral ribs as well as the proximal left femur. CONCLUSION: 1. Widespread bony metastatic disease as above. Sebastián Greer MD on June 07, 2017 at 12:55 Board Certified Radiologist. This report was verified electronically.
== END ==
LOC: HRAD 08:21
PROVIDERS: ATTEND Urology
DX: C61 Malignant neoplasm of prostate (principal); C79.51 Secondary malignant neoplasm of bone
CPT/HCPCS: 78306; A9503

== ENCOUNTER → 2017-06-21 | Outpatient (CLI) | payer MEDICARE, MEDICAID ==
[~2017-06-21] MED LIST changes: -LEVA500T20 PO
[2017-06-21 10:39] LABS: BICARBONATE 21.2 MEQ/L (21.0-32.0); POTASSIUM 4.5 MEQ/L (3.5-5.1)
== END ==
LOC: CLAB 09:01
PROVIDERS: ATTEND Urology
DX: C61 Malignant neoplasm of prostate (principal)
CPT/HCPCS: 36415; 80048; 84153

== ENCOUNTER → 2017-07-14 | Day surgery (SDC) | payer MEDICARE, MEDICAID ==
[~2017-07-14] VITALS: Ht 188 cm; Wt 77.3 kg
[~2017-07-14] MED LIST changes: +ACETAMINOPHEN/HYDROcodone 325 MG/5 MG TAB PO PRN; +BELLADONNA ALKALOIDS/OPIUM 60 MG SUPP RECTAL ONE; +CHLORHEXIDINE GLUCONATE 2 % 1 PACK (2 CLOTHS) TOPICAL PRN; +DO NOT ADM ANY ANTICOAGULANT DRUGS PRN; +ENALAPRILAT 1.25 MG/ML VIAL ONE; -HYDR-3799 PO; +INSULIN HUMAN REGULAR 1,000 UNITS/10 ML VIAL SQ PRN; +LACTATED RINGER'S 1000 ML IV PRN; +LIDOCAINE HCL 1% PF 5 ML AMPULE OTHER ONE; +METOPROLOL TARTRATE 25 MG TAB PO PRN; +MIDAZOLAM HCL 2 MG/2 ML VIAL IV ONE; +ONDANSETRON HCL 4 MG/2 ML VIAL IV PUSH ONE; +ONDANSETRON HCL 4 MG/2 ML VIAL IV PUSH PRN; +POVIDONE IODINE 5% (ANTISEPSIS KIT) 4 APPLICATIONS EACH NARE PRN; +PROPOFOL 200 MG/20 ML AMP IV ONE; +SODIUM CHLORID 0.9% 500 ML IV PRN; +ceFAZolin 1,000 MG/NS 100 ML IV SCH
[2017-07-14 09:38] LABS: BASOPHIL # 0.1 TH/MM3 (0-0.2); BASOPHIL % 0.8 % (0.0-2.0); EOSINOPHIL # 0.8 TH/MM3 (0-0.4); EOSINOPHIL % 7.2 % (0.0-4.0); HEMATOCRIT 27.6 % (39.0-51.0); HEMOGLOBIN 9.5 GM/DL (13.0-17.0); LYMPH % 31.6 % (9.0-44.0); LYMPHOCYTE # 3.5 TH/MM3 (1.0-4.8); MEAN CELL VOLUME 89.1 FL (80.0-100.0); MEAN CORPUSCULAR HEMOGLOBIN 30.5 PG (27.0-34.0); MEAN CORPUSCULAR HGB CONC 34.3 % (32.0-36.0); MEAN PLATELET VOLUME 6.9 FL (7.0-11.0); MONOCYTE # 0.8 TH/MM3 (0-0.9); NEUT % 53.4 % (16.0-70.0); PLATELET COUNT 226 TH/MM3 (150-450); RED CELL DISTRIBUTION WIDTH 14.3 % (11.6-17.2); WHITE BLOOD COUNT 11.1 TH/MM3 (4.0-11.0)
--- NOTE | 2017-07-14 12:59 | PD.OP ---
Operative Report Date of Surgery: Jul 14, 2017 Preoperative Diagnosis: Retained left ureteral stent Postoperative Diagnosis: Same Procedure: Left ureteroscopy with cystoscopy and removal of left double-J stent Anesthesia: Gen. LMA Surgeon: Zion Fine Applications Sales Consultant(s): None Resident Surgeon: None Operation and Findings: 62-year-old male with history of metastatic prostate cancer and a history of gross hematuria with clot retention with chronic renal failure. He underwent cystoscopy with clot evacuation with fulguration approximate 2-3 months ago with placement of bilateral ureteral stents. At the time he had an elevated creatinine and bilateral ureteral stents were placed as well as a Pollock catheter. His renal failure did not baseline to provide adequate clearance and he was placed on dialysis. He was seen in the office underwent cystoscopy with right double-J stent removal. At the time of cystoscopy is unable to visualize left ureteral stent. On KUB x-ray was confirmed that the left stent had retracted up the left ureter. Decision was made in the bring the patient to the operating room and undergo cystoscopy with left ureteroscopy and removal of left double-J stent. The patient is brought to the operating room and identified by myself as Madhu Ross. He was placed in the dorsal lithotomy position, prepped and draped in usual sterile fashion, received preprocedure antibiotics and general LMA anesthesia was administered. The rigid ureteroscope was then passed up the left ureter and the stent was then visualized in the lower 1/3 ureter. Using a grasping forceps the stent was then brought down into the bladder. The cystoscope was then inserted into the bladder and the alligator forceps was used to remove the left double-J stent without difficulty. The bladder was evacuated and he was awoken and transferred to reduce stable condition. He tolerated the procedure well. Zion Fine DO Jul 14, 2017 12:59
[2017-07-14 14:15] VITALS: BP 192/76; PULSE 64; RESP 20; TEMP 97.5; O2SAT 100
== END | disposition home or self-care (01) ==
LOC: HSDC 08:09
PROVIDERS: ATTEND Urology
DX: Z96.0 Presence of urogenital implants (principal); N18.9 Chronic kidney disease, unspecified; Z99.2 Dependence on renal dialysis; Z85.46 Personal history of malignant neoplasm of prostate
CPT/HCPCS: 00910; 52310; 84132; 85025; J0690; J2250; J2405; J3010; J7040; C1769; J7120

== ENCOUNTER 2017-10-04 11:40 | Inpatient (IN) | payer MEDICARE, MEDICAID ==
[2017-10-04 12:22] LABS: AUTOMATED NEUTROPHIL # 14.9 TH/MM3 (1.8-7.7); BASOPHIL # 0.6 TH/MM3 (0-0.2); BASOPHIL % 2.8 % (0.0-2.0); EOSINOPHIL % 0.1 % (0.0-4.0); HEMATOCRIT 28.8 % (39.0-51.0); LYMPH % 18.2 % (9.0-44.0); LYMPHOCYTE # 3.7 TH/MM3 (1.0-4.8); MEAN CORPUSCULAR HEMOGLOBIN 31.4 PG (27.0-34.0); MEAN CORPUSCULAR HGB CONC 34.9 % (32.0-36.0); MEAN PLATELET VOLUME 7.9 FL (7.0-11.0); MONO % 5.7 % (0.0-8.0); MONOCYTE # 1.2 TH/MM3 (0-0.9); NEUT % 73.2 % (16.0-70.0); PLATELET COUNT 138 TH/MM3 (150-450); RED CELL DISTRIBUTION WIDTH 12.5 % (11.6-17.2); WHITE BLOOD COUNT 20.4 TH/MM3 (4.0-11.0)
[2017-10-04 12:25] LABS: HEMO FLAGS AUTO DIFF
[2017-10-04 12:30] LABS: CHLORIDE 98 MEQ/L (98-107); POTASSIUM 4.1 MEQ/L (3.5-5.1); SODIUM (NA) 132 MEQ/L (136-145)
[2017-10-04] MEDS: ACETAMINOPHEN 500 MG CPLT PO (12:31)
[2017-10-04 12:33] LABS: CALCIUM 8.3 MG/DL (8.5-10.1)
[2017-10-04 12:34] LABS: ALBUMIN 3.2 GM/DL (3.4-5.0); ANION GAP 14 MEQ/L (5-15); BICARBONATE 20.2 MEQ/L (21.0-32.0); BLOOD UREA NITROGEN 45 MG/DL (7-18); GLUCOSE,RANDOM 112 MG/DL (74-106)
[2017-10-04 12:37] LABS: ALT (GPT) 29 U/L (12-78); AST (GOT) 63 U/L (15-37); GLOMERULAR FILTRATION RATE 9 ML/MIN (>89)
[2017-10-04 12:38] LABS: TOTAL BILIRUBIN ADULT 0.5 MG/DL (0.2-1.0); TOTAL PROTEIN 6.7 GM/DL (6.4-8.2)
[2017-10-04 12:40] LABS: LACTIC ACID SEPSIS PROTOCOL 1.3 mmol/L (0.4-2.0)
[2017-10-04 12:40] LABS: ALKALINE PHOSPHATASE 77 U/L (45-117)
[2017-10-04 12:45] LABS: BANDS 9 % (0-6); LYMPHOCYTES 9 % (9-44); MONOCYTES 5 % (0-8); NEUTROPHIL # MANUAL DIFF 17.5 TH/MM3 (1.8-7.7); POLYS (SEG NEUTROPHILS) 77 % (16-70); WBC DIFF SAMPLE 100
[2017-10-04 12:46] LABS: PLATELET ESTIMATE SMEAR LOW (NORMAL); PLATELET MORPHOLOGY NORMAL (NORMAL); SCAN/DIFF FINAL DIFF MANUAL
[2017-10-04] MEDS: PIPERACIL-TAZO 4.5 GM PREMIX 100 ML IV (13:23)
[2017-10-04 13:38] LABS: BILIRUBIN, URINE NEG (NEG); BLOOD, URINE LARGE (NEG); GLUCOSE,URINE NEG (NEG); KETONE, URINE NEG (NEG); NITRITE,URINE NEG (NEG); PH, URINE 7.5 (5.0-8.5); URINE LEUKOCYTE ESTERASE SMALL (NEG)
[2017-10-04 13:41] LABS: METHOD OF COLLECTION CLEAN CATCH
[2017-10-04 13:41] LABS: URINE COLOR STRAW (YELLW/STRAW)
[2017-10-04 13:44] LABS: BACTERIA, URINE FEW /hpf; COMMENT (UR) CULT NOT INDICATED; CULTURE IF INDICATED CULT NOT INDICATED
[2017-10-04] MEDS ORDERED: SENNOSIDES 8.6 MG TAB PO (14:00)
[2017-10-04] MEDS ORDERED: ONDANSETRON HCL 4 MG/2 ML VIAL IVP (14:00)
[2017-10-04] MEDS ORDERED: NALOXONE HCL 0.4 MG/ML AMP IV PUSH (14:00)
[2017-10-04] MEDS ORDERED: SODIUM CHLORIDE 0.9% FLUSH 10 ML FLUSH IV FLUSH ×2 (14:00→16:00)
[2017-10-04] MEDS ORDERED: TEMAZEPAM 15 MG CAP PO (14:00)
[2017-10-04] MEDS ORDERED: VANCOMYCIN 1 GM/200 ML INJ 200 ML IV (14:00)
[2017-10-04] MEDS: VANCOMYCIN INJ 1,200 MG in SODIUM CHLOR 0.9% 250 ML INJ 250 ML IV (14:16)
[2017-10-04] MEDS ORDERED: Vancomycin Consult Pharmacy 1 EA OTHER (15:00)
[2017-10-04] MEDS ORDERED: SODIUM CHLOR 0.9% 1000 ML INJ 1,000 ML OTHER (15:53)
[2017-10-04] MEDS ORDERED: ONDANSETRON HCL 4 MG/2 ML VIAL IV PUSH (16:00)
[2017-10-04] MEDS ORDERED: EPOETIN ALFA 10,000 UNITS/ML VIAL IV PUSH (16:00)
[2017-10-04] MEDS ORDERED: ALBUMIN 25% INJ 100 ML IV (16:00)
[2017-10-04] MEDS ORDERED: NITROGLYCERIN 0.4 MG SL 25 TABS/BTL SL (16:00)
[2017-10-04] MEDS ORDERED: ACETAMINOPHEN 325 MG TAB PO (16:00)
[2017-10-04] MEDS ORDERED: diphenhydrAMINE HCL 25 MG CAP PO (16:00)
[2017-10-04] MEDS ORDERED: HEPARIN SODIUM - IV 10,000 UNITS/10 ML VIAL IV FLUSH (16:00)
[2017-10-04] MEDS ORDERED: NICOTINE 14 MG/24 HR PATCH T-DERMAL (16:00)
[2017-10-04] MEDS ORDERED: GELATIN 12 MM/7 MM FOAM TOP (16:00)
[2017-10-04] MEDS ORDERED: MANNITOL 12.5 GM/50 ML VIAL IV (16:00)
[2017-10-04] MEDS: HEPARIN SODIUM - SQ 10,000 UNITS/ML VIAL SQ (18:00)
[2017-10-04] MEDS: CALCIUM ACETATE 667 MG CAP PO (18:25)
[2017-10-04] MEDS: SODIUM CHLORIDE 0.9% FLUSH 10 ML FLUSH IV FLUSH (21:00)
[2017-10-05] MEDS: PIPERACIL-TAZO 3.375 GM PREMIX 50 ML IV ×2 (00:48→11:28)
[2017-10-05] MEDS: HEPARIN SODIUM - SQ 10,000 UNITS/ML VIAL SQ ×2 (00:48→16:26)
[2017-10-05] MEDS: cloNIDine HCL 0.1 MG TAB PO (00:56)
[2017-10-05] MEDS: hydrALAZINE HCL 20 MG/ML VIAL IV PUSH (00:56)
[2017-10-05] MEDS: ACETAMINOPHEN 325 MG TAB PO ×2 (00:56→14:16)
[2017-10-05 05:17] LABS: CHLORIDE 102 MEQ/L (98-107); POTASSIUM 3.9 MEQ/L (3.5-5.1); SODIUM (NA) 133 MEQ/L (136-145)
[2017-10-05 05:21] LABS: ANION GAP 10 MEQ/L (5-15); BICARBONATE 20.6 MEQ/L (21.0-32.0); BLOOD UREA NITROGEN 54 MG/DL (7-18); CALCIUM 8.3 MG/DL (8.5-10.1); GLUCOSE,RANDOM 116 MG/DL (74-106)
[2017-10-05 05:25] LABS: GLOMERULAR FILTRATION RATE 8 ML/MIN (>89); PHOSPHORUS 3.9 MG/DL (2.5-4.9)
[2017-10-05 06:42] LABS: AUTOMATED NEUTROPHIL # 13.6 TH/MM3 (1.8-7.7); BASOPHIL % 0.2 % (0.0-2.0); EOSINOPHIL # 0.1 TH/MM3 (0-0.4); EOSINOPHIL % 0.4 % (0.0-4.0); HEMATOCRIT 30.2 % (39.0-51.0); HEMOGLOBIN 10.1 GM/DL (13.0-17.0); LYMPHOCYTE # 2.8 TH/MM3 (1.0-4.8); MEAN CELL VOLUME 91.9 FL (80.0-100.0); MEAN CORPUSCULAR HEMOGLOBIN 30.7 PG (27.0-34.0); MEAN CORPUSCULAR HGB CONC 33.4 % (32.0-36.0); MEAN PLATELET VOLUME 8.6 FL (7.0-11.0); MONO % 6.8 % (0.0-8.0); MONOCYTE # 1.2 TH/MM3 (0-0.9); NEUT % 76.6 % (16.0-70.0); PLATELET COUNT 135 TH/MM3 (150-450); RED BLOOD COUNT 3.29 MIL/MM3 (4.50-5.90); RED CELL DISTRIBUTION WIDTH 12.6 % (11.6-17.2); WHITE BLOOD COUNT 17.7 TH/MM3 (4.0-11.0)
[2017-10-05 06:43] LABS: HEMO FLAGS DIFF FINAL
[2017-10-05] MEDS ORDERED: EPOETIN ALFA 4,000 UNITS/ML VIAL IV PUSH (08:00)
[2017-10-05] MEDS: CALCIUM ACETATE 667 MG CAP PO ×4 (09:00→18:00)
[2017-10-05] MEDS: SODIUM CHLOR 0.9% 1000 ML INJ 1,000 ML IV (10:04)
[2017-10-05] MEDS: VANCOMYCIN INJ 1,000 MG in SODIUM CHLOR 0.9% 250 ML INJ 250 ML IV (10:04)
[2017-10-05] MEDS: HEPARIN SODIUM - IV 10,000 UNITS/10 ML VIAL (10:05)
[2017-10-05] MEDS: BICALUTAMIDE 50 MG TAB PO (11:25)
[2017-10-05] MEDS: TAMSULOSIN HCL 0.4 MG CAP PO (11:25)
[2017-10-05] MEDS: SODIUM CHLORIDE 0.9% FLUSH 10 ML FLUSH IV FLUSH ×2 (11:29→21:13)
[2017-10-06] MEDS: PIPERACIL-TAZO 3.375 GM PREMIX 50 ML IV (01:07)
[2017-10-06 04:40] LABS: HEMOGLOBIN 9.6 GM/DL (13.0-17.0); MEAN CELL VOLUME 92.1 FL (80.0-100.0); MEAN CORPUSCULAR HEMOGLOBIN 30.6 PG (27.0-34.0); MEAN CORPUSCULAR HGB CONC 33.2 % (32.0-36.0); MEAN PLATELET VOLUME 8.1 FL (7.0-11.0); PLATELET COUNT 152 TH/MM3 (150-450); RED BLOOD COUNT 3.15 MIL/MM3 (4.50-5.90); RED CELL DISTRIBUTION WIDTH 12.6 % (11.6-17.2); WHITE BLOOD COUNT 11.4 TH/MM3 (4.0-11.0)
[2017-10-06 04:47] LABS: HEMO FLAGS AUTO DIFF
[2017-10-06 04:55] LABS: CHLORIDE 99 MEQ/L (98-107); POTASSIUM 3.4 MEQ/L (3.5-5.1); SODIUM (NA) 135 MEQ/L (136-145)
[2017-10-06 04:58] LABS: ALBUMIN 2.8 GM/DL (3.4-5.0); CALCIUM 8.2 MG/DL (8.5-10.1)
[2017-10-06 04:59] LABS: ANION GAP 8 MEQ/L (5-15); BICARBONATE 27.9 MEQ/L (21.0-32.0); BLOOD UREA NITROGEN 38 MG/DL (7-18); GLUCOSE,RANDOM 106 MG/DL (74-106)
[2017-10-06 05:03] LABS: BANDS 5 % (0-6); EOSINOPHILS 3 % (0-4); LYMPHOCYTES 18 % (9-44); MONOCYTES 6 % (0-8); NEUTROPHIL # MANUAL DIFF 8.3 TH/MM3 (1.8-7.7); PLATELET ESTIMATE SMEAR NORMAL (NORMAL); PLATELET MORPHOLOGY NORMAL (NORMAL); POLYS (SEG NEUTROPHILS) 68 % (16-70); WBC DIFF SAMPLE 100
[2017-10-06 05:04] LABS: SCAN/DIFF FINAL DIFF MANUAL
[2017-10-06 05:10] LABS: ALKALINE PHOSPHATASE 70 U/L (45-117); ALT (GPT) 71 U/L (12-78); AST (GOT) 184 U/L (15-37); GLOMERULAR FILTRATION RATE 11 ML/MIN (>89); TOTAL BILIRUBIN ADULT 0.4 MG/DL (0.2-1.0); TOTAL PROTEIN 6.2 GM/DL (6.4-8.2)
[2017-10-06] MEDS: HEPARIN SODIUM - SQ 10,000 UNITS/ML VIAL SQ ×2 (06:00→17:56)
[2017-10-06] MEDS: BICALUTAMIDE 50 MG TAB PO ×2 (07:47→21:00)
[2017-10-06] MEDS: MULTIVITAMIN TAB PO (07:48)
[2017-10-06] MEDS: SODIUM CHLORIDE 0.9% FLUSH 10 ML FLUSH IV FLUSH ×2 (07:48→21:39)
[2017-10-06] MEDS: TAMSULOSIN HCL 0.4 MG CAP PO (07:48)
[2017-10-06] MEDS: CALCIUM ACETATE 667 MG CAP PO ×4 (07:48→17:57)
[2017-10-06] MEDS: CITALOPRAM HYDROBROMIDE 20 MG TAB PO (07:50)
[2017-10-06] MEDS: RIFAMPIN 150 MG CAP PO ×2 (09:45→21:38)
[2017-10-06] MEDS: POTASSIUM CHLORIDE 10 MEQ CONTROLLED RELEASE TAB PO (13:19)
[2017-10-06] MEDS: cloNIDine HCL 0.1 MG TAB PO (21:44)
[2017-10-07] MEDS: HEPARIN SODIUM - SQ 10,000 UNITS/ML VIAL SQ ×2 (04:47→18:00)
[2017-10-07] MEDS: cloNIDine HCL 0.1 MG TAB PO ×2 (05:11→15:27)
[2017-10-07 06:47] LABS: AUTOMATED NEUTROPHIL # 6.4 TH/MM3 (1.8-7.7); BASOPHIL % 0.2 % (0.0-2.0); EOSINOPHIL # 0.7 TH/MM3 (0-0.4); EOSINOPHIL % 6.2 % (0.0-4.0); HEMATOCRIT 28.4 % (39.0-51.0); HEMO FLAGS DIFF FINAL; HEMOGLOBIN 9.6 GM/DL (13.0-17.0); LYMPH % 26.3 % (9.0-44.0); LYMPHOCYTE # 2.9 TH/MM3 (1.0-4.8); MEAN CELL VOLUME 92.8 FL (80.0-100.0); MEAN CORPUSCULAR HEMOGLOBIN 31.4 PG (27.0-34.0); MEAN CORPUSCULAR HGB CONC 33.8 % (32.0-36.0); MONO % 8.5 % (0.0-8.0); MONOCYTE # 0.9 TH/MM3 (0-0.9); NEUT % 58.8 % (16.0-70.0); PLATELET COUNT 196 TH/MM3 (150-450); RED BLOOD COUNT 3.06 MIL/MM3 (4.50-5.90); RED CELL DISTRIBUTION WIDTH 12.4 % (11.6-17.2); WHITE BLOOD COUNT 10.9 TH/MM3 (4.0-11.0)
[2017-10-07] MEDS: SODIUM CHLORIDE 0.9% FLUSH 10 ML FLUSH IV FLUSH ×2 (08:41→22:12)
[2017-10-07] MEDS: RIFAMPIN 150 MG CAP PO ×2 (08:42→22:11)
[2017-10-07] MEDS: CALCIUM ACETATE 667 MG CAP PO ×3 (08:42→18:00)
[2017-10-07] MEDS: TAMSULOSIN HCL 0.4 MG CAP PO (08:42)
[2017-10-07] MEDS ORDERED: SODIUM CHLORIDE 0.9% FLUSH 10 ML FLUSH IV FLUSH (10:00)
[2017-10-07] MEDS: VANCOMYCIN INJ 1,000 MG in SODIUM CHLOR 0.9% 250 ML INJ 250 ML IV (13:54)
[2017-10-07] MEDS: HEPARIN SODIUM - IV 10,000 UNITS/10 ML VIAL (13:55)
[2017-10-07] MEDS: EPOETIN ALFA 4,000 UNITS/ML VIAL IV PUSH (13:55)
[2017-10-07] MEDS: GENTAMICIN SULFATE 20 MG/2 ML VIAL OTHER (13:56)
[2017-10-07] MEDS: hydrALAZINE HCL 25 MG TAB PO ×2 (15:30→22:11)
[2017-10-07] MEDS: BICALUTAMIDE 50 MG TAB PO ×2 (21:00)
[2017-10-08] MEDS: cloNIDine HCL 0.1 MG TAB PO (00:26)
[2017-10-08] MEDS: HEPARIN SODIUM - SQ 10,000 UNITS/ML VIAL SQ ×2 (05:49→18:00)
[2017-10-08] MEDS: hydrALAZINE HCL 25 MG TAB PO ×3 (05:49→23:52)
[2017-10-08] MEDS: RIFAMPIN 150 MG CAP PO ×2 (09:00→20:51)
[2017-10-08] MEDS: SODIUM CHLORIDE 0.9% FLUSH 10 ML FLUSH IV FLUSH ×3 (09:00→20:51)
[2017-10-08] MEDS: CALCIUM ACETATE 667 MG CAP PO ×3 (11:04→17:42)
[2017-10-08] MEDS: MULTIVITAMIN TAB PO (11:04)
[2017-10-08] MEDS: TAMSULOSIN HCL 0.4 MG CAP PO (11:04)
[2017-10-08] MEDS: BICALUTAMIDE 50 MG TAB PO (20:51)
[2017-10-09] MEDS: hydrALAZINE HCL 25 MG TAB PO ×3 (05:37→20:48)
[2017-10-09] MEDS: HEPARIN SODIUM - SQ 10,000 UNITS/ML VIAL SQ ×2 (05:37→18:00)
[2017-10-09] MEDS: cloNIDine HCL 0.1 MG TAB PO ×4 (09:00→20:52)
[2017-10-09] MEDS: SODIUM CHLORIDE 0.9% FLUSH 10 ML FLUSH IV FLUSH ×3 (09:00→20:50)
[2017-10-09] MEDS: TAMSULOSIN HCL 0.4 MG CAP PO (10:41)
[2017-10-09] MEDS: CALCIUM ACETATE 667 MG CAP PO ×3 (10:41→18:13)
[2017-10-09] MEDS: RIFAMPIN 150 MG CAP PO ×2 (10:41→20:48)
[2017-10-09] MEDS: BICALUTAMIDE 50 MG TAB PO (20:49)
[2017-10-10] MEDS: HEPARIN SODIUM - SQ 10,000 UNITS/ML VIAL SQ ×2 (06:00→18:00)
[2017-10-10] MEDS: hydrALAZINE HCL 25 MG TAB PO ×2 (06:23→13:45)
[2017-10-10 06:41] LABS: CHLORIDE 101 MEQ/L (98-107); POTASSIUM 4.2 MEQ/L (3.5-5.1); SODIUM (NA) 137 MEQ/L (136-145)
[2017-10-10 06:47] LABS: CALCIUM 9.3 MG/DL (8.5-10.1)
[2017-10-10 06:48] LABS: ANION GAP 9 MEQ/L (5-15); BLOOD UREA NITROGEN 47 MG/DL (7-18); GLUCOSE,RANDOM 101 MG/DL (74-106)
[2017-10-10 06:51] LABS: GLOMERULAR FILTRATION RATE 8 ML/MIN (>89)
[2017-10-10] MEDS: MULTIVITAMIN TAB PO (08:50)
[2017-10-10] MEDS: RIFAMPIN 150 MG CAP PO ×2 (08:50→20:37)
[2017-10-10] MEDS: TAMSULOSIN HCL 0.4 MG CAP PO (08:50)
[2017-10-10] MEDS: CALCIUM ACETATE 667 MG CAP PO ×3 (08:50→18:14)
[2017-10-10] MEDS: SODIUM CHLORIDE 0.9% FLUSH 10 ML FLUSH IV FLUSH ×3 (08:50→20:39)
[2017-10-10] MEDS: cloNIDine HCL 0.1 MG TAB PO ×2 (08:50→20:39)
[2017-10-10] MEDS: VANCOMYCIN INJ 1,000 MG in SODIUM CHLOR 0.9% 250 ML INJ 250 ML IV (15:50)
[2017-10-10] MEDS: SODIUM CHLOR 0.9% 1000 ML INJ 1,000 ML OTHER (16:00)
[2017-10-10] MEDS: HEPARIN SODIUM - IV 10,000 UNITS/10 ML VIAL (16:00)
[2017-10-10] MEDS: EPOETIN ALFA 4,000 UNITS/ML VIAL IV PUSH (16:00)
[2017-10-10] MEDS: GENTAMICIN SULFATE 20 MG/2 ML VIAL OTHER (16:00)
[2017-10-10] MEDS: BICALUTAMIDE 50 MG TAB PO (20:38)
[2017-10-10] MEDS: hydrALAZINE HCL 50 MG TAB PO (22:00)
[2017-10-11] MEDS: HEPARIN SODIUM - SQ 10,000 UNITS/ML VIAL SQ ×2 (05:52→18:36)
[2017-10-11] MEDS: hydrALAZINE HCL 50 MG TAB PO ×3 (05:53→21:39)
[2017-10-11] MEDS: CALCIUM ACETATE 667 MG CAP PO ×3 (08:31→18:35)
[2017-10-11] MEDS: SODIUM CHLORIDE 0.9% FLUSH 10 ML FLUSH IV FLUSH ×3 (08:31→21:39)
[2017-10-11] MEDS: RIFAMPIN 150 MG CAP PO ×2 (08:32→21:39)
[2017-10-11] MEDS: TAMSULOSIN HCL 0.4 MG CAP PO (08:32)
[2017-10-11] MEDS: cloNIDine HCL 0.1 MG TAB PO ×2 (08:34→21:00)
[2017-10-11 14:18] LABS: INTERNATIONAL NORMALIZED RATIO 1.1 RATIO; PROTHROMBIN TIME - PATIENT 10.8 SEC (9.8-11.6)
[2017-10-11] MEDS: BICALUTAMIDE 50 MG TAB PO (21:39)
[2017-10-12] MEDS: hydrALAZINE HCL 50 MG TAB PO ×2 (06:00→14:00)
[2017-10-12] MEDS: HEPARIN SODIUM - SQ 10,000 UNITS/ML VIAL SQ ×2 (06:00→17:55)
[2017-10-12] MEDS: cloNIDine HCL 0.1 MG TAB PO (08:33)
[2017-10-12] MEDS: SODIUM CHLORIDE 0.9% FLUSH 10 ML FLUSH IV FLUSH ×3 (08:33→08:37)
[2017-10-12] MEDS: RIFAMPIN 150 MG CAP PO (08:34)
[2017-10-12] MEDS: TAMSULOSIN HCL 0.4 MG CAP PO (08:34)
[2017-10-12] MEDS: MULTIVITAMIN TAB PO (08:34)
[2017-10-12] MEDS: CALCIUM ACETATE 667 MG CAP PO ×3 (08:34→17:55)
[2017-10-12] MEDS: LIDOCAINE 2%/EPINEPHrine PF 1:200,000 20ML SDV I-DERMAL (09:45)
[2017-10-12] MEDS: HEPARIN SODIUM - IV 10,000 UNITS/10 ML VIAL OTHER (09:45)
[2017-10-12] MEDS: ceFAZolin 2 GM/50 ML BAG IV (09:45)
[2017-10-12] MEDS ORDERED: SODIUM CHLORIDE 0.9% FLUSH 10 ML FLUSH IV FLUSH (10:15)
[2017-10-12] MEDS ORDERED: HEPARIN SODIUM - IV 2,000 UNITS/2 ML VIAL IV FLUSH (10:15)
[2017-10-12] MEDS ORDERED: VANCOMYCIN 1,000 MG/NS 250 ML IV (11:00)
[2017-10-12] MEDS: SODIUM CHLOR 0.9% 1000 ML INJ 1,000 ML OTHER (17:51)
[2017-10-12] MEDS: VANCOMYCIN 1 GM/200 ML PREMIX IV (17:51)
[2017-10-12] MEDS: GENTAMICIN SULFATE 20 MG/2 ML VIAL OTHER (17:52)
[2017-10-12] MEDS: EPOETIN ALFA 4,000 UNITS/ML VIAL IV PUSH (17:52)
[2017-10-12] MEDS: HEPARIN SODIUM - IV 10,000 UNITS/10 ML VIAL (17:53)
== END 2017-10-12 19:46 | disposition home or self-care (01) | DRG 314 ==
LOC: PH3A 10-06 11:05 → PHED 11:40 → PHEDA 13:28 → PHICU 18:17
PROC: 5A1D70Z Performance of Urinary Filtration, Intermittent, Less than 6 Hours Per Day (ICD-10-PCS; principal; 2017-10-05)
PROC: 02PYX3Z Removal of Infusion Device from Great Vessel, External Approach (ICD-10-PCS; 2017-10-05)
PROC: 05HN33Z Insertion of Infusion Device into Left Internal Jugular Vein, Percutaneous Approach (ICD-10-PCS; 2017-10-07)
PROC: 05HM33Z Insertion of Infusion Device into Right Internal Jugular Vein, Percutaneous Approach (ICD-10-PCS; 2017-10-07)
DX: T80.211A Bloodstream infection due to central venous catheter, initial encounter (principal); A41.02 Sepsis due to Methicillin resistant Staphylococcus aureus; N18.6 End stage renal disease; C79.51 Secondary malignant neoplasm of bone; I12.0 Hypertensive chronic kidney disease with stage 5 chronic kidney disease or end stage renal disease; E87.2 Acidosis; J18.9 Pneumonia, unspecified organism; C61 Malignant neoplasm of prostate; F17.210 Nicotine dependence, cigarettes, uncomplicated; Z99.2 Dependence on renal dialysis; F32.9 Major depressive disorder, single episode, unspecified; K40.90 Unilateral inguinal hernia, without obstruction or gangrene, not specified as recurrent; Y84.8 Other medical procedures as the cause of abnormal reaction of the patient, or of later complication, without mention of misadventure at the time of the procedure; Y92.009 Unspecified place in unspecified non-institutional (private) residence as the place of occurrence of the external cause; W19.XXXA Unspecified fall, initial encounter; Z82.3 Family history of stroke; Z82.5 Family history of asthma and other chronic lower respiratory diseases
CPT/HCPCS: 36556; 36558; 36589; 71045; 76937; 77001; 80048; 80053; 81001; 83605; 84100; 84443; 85007; 85025; 85027; 85610; 86403; 87040; 87071; 87147; 87149-59; 87186; 87205; 87804; 87804-59; 90935; 93306; 96365; 96374; 96375; 97110-GP; 97116-GP; 97162-GP; 97530-GP; 99285-25

== ENCOUNTER → 2018-02-01 | Outpatient (CLI) | payer MEDICARE, OTHER ==
[~2018-02-01] MED LIST changes: -ACETAMINOPHEN/HYDROcodone 325 MG/5 MG TAB PO PRN; -BELLADONNA ALKALOIDS/OPIUM 60 MG SUPP RECTAL ONE; -CASO50TA2 PO; -CHLORHEXIDINE GLUCONATE 2 % 1 PACK (2 CLOTHS) TOPICAL PRN; -DO NOT ADM ANY ANTICOAGULANT DRUGS PRN; -ENALAPRILAT 1.25 MG/ML VIAL ONE; -INSULIN HUMAN REGULAR 1,000 UNITS/10 ML VIAL SQ PRN; -LACTATED RINGER'S 1000 ML IV PRN; -LIDOCAINE HCL 1% PF 5 ML AMPULE OTHER ONE; -METOPROLOL TARTRATE 25 MG TAB PO PRN; -MIDAZOLAM HCL 2 MG/2 ML VIAL IV ONE; -ONDANSETRON HCL 4 MG/2 ML VIAL IV PUSH ONE; -ONDANSETRON HCL 4 MG/2 ML VIAL IV PUSH PRN; -POVIDONE IODINE 5% (ANTISEPSIS KIT) 4 APPLICATIONS EACH NARE PRN; -PROPOFOL 200 MG/20 ML AMP IV ONE; +RIFA300C2 PO; -SODIUM CHLORID 0.9% 500 ML IV PRN; +VANC1INJ2 IV; -ceFAZolin 1,000 MG/NS 100 ML IV SCH
[2018-02-01 11:02] LABS: BICARBONATE 23.2 MEQ/L (21.0-32.0); CALCIUM 8.8 MG/DL (8.5-10.1); CREATININE 2.89 MG/DL (0.60-1.30)
== END ==
LOC: CLAB 10:07
PROVIDERS: ATTEND Urology
DX: N40.1 Benign prostatic hyperplasia with lower urinary tract symptoms (principal)
CPT/HCPCS: 36415; 80048; 84153

== ENCOUNTER 2018-07-09 14:53 | Observation (INO) ==
[2018-07-09 15:29] LABS: Baso # (Auto) 0.4 th/mm3 (0.0-0.2); Baso % (Auto) 3.3 % (0.0-2.0); Eos # (Auto) 0.1 th/mm3 (0.0-0.4); Eos % (Auto) 0.9 % (0.0-4.0); Hematocrit 21.4 % (39.0-51.0); Hemoglobin 7.4 gm/dL (13.0-17.0); Lymph # (Auto) 2.9 th/mm3 (1.0-4.8); Lymph % (Auto) 24.5 % (9.0-44.0); Mean Corpuscular HGB Conc 34.6 % (32.0-36.0); Mean Corpuscular Volume 89.7 fL (80.0-100.0); Mean Platelet Volume 7.9 fL (7.0-11.0); Mono # (Auto) 0.6 th/mm3 (0.0-0.9); Mono % (Auto) 4.7 % (0.0-8.0); Neut % (Auto) 66.6 % (16.0-70.0); Platelet Count 164 th/mm3 (150-450); Red Blood Count 2.39 mil/mm3 (4.50-5.90); Red Cell Distribution Width 16.1 % (11.6-17.2)
[2018-07-09 15:53] LABS: Potassium 3.9 meq/L (3.5-5.1)
--- NOTE | 2018-07-09 16:06 | XR ---
EXAM DATE: 07/09/2018 3:11 PM EDT AGE/SEX: 63 years / Male INDICATIONS: Shortness of breath. CLINICAL DATA: This is the patient's initial encounter. Patient reports that signs and symptoms have been present for 1 day and indicates a pain score of 0/10. MEDICAL/SURGICAL HISTORY: Carcinoma, prostatic. Hypertension. Renal insufficiency, chronic. Metastatic bone. . Vas-cath. COMPARISON: [facility], CHEST SINGLE AP, 10/04/2017. . FINDINGS: Stable right IJ tunneled dialysis catheter. Stable diffuse interstitial prominence. Mild bibasilar ai rspace disease, left greater than right. Cardiac silhouette is mildly enlarged. Remainder of the exam is unchanged. CONCLUSION: 1. Cardiomegaly with mild positive fluid balance. 2. Minimal right and moderate left lung base airspace consolidation, presumably atelectasis. Electronically signed by: Ferdinand Fisher MD 07/09/2018 4:04 PM EDT
--- NOTE | 2018-07-09 16:09 | XR ---
EXAM DATE: 07/09/2018 3:16 PM EDT AGE/SEX: 63 years / Male INDICATIONS: Left hip pain, no known trauma. CLINICAL DATA: This is the patient's initial encounter. Patient reports that signs and symptoms have been present for 1 month and indicates a pain score of 3/10. MEDICAL/SURGICAL HISTORY: None. None. COMPARISON: [facility] [place], CT ABDOMEN & PELVIS W/O CONTRAST, 03/21/2017. . FINDINGS: Bony structures are intact and in normal alignment. Joints are anatomic. Moderate to severe degenerat christiane changes.. Osseous density is normal. Soft tissues are unremarkable. Femoral artery calcificati ons. No radiopaque foreign bodies seen. CONCLUSION: 1. Moderate to severe degenerative osteoarthritis. Electronically signed by: Ferdinand Fisher MD 07/09/2018 4:08 PM EDT
--- NOTE | 2018-07-09 16:10 | XR ---
EXAM DATE: 07/09/2018 3:16 PM EDT AGE/SEX: 63 years / Male INDICATIONS: Left knee pain, no known trauma. CLINICAL DATA: This is the patient's initial encounter. Patient reports that signs and symptoms have been present for 1 month and indicates a pain score of 5/10. MEDICAL/SURGICAL HISTORY: None. None. COMPARISON: No prior exams available for comparison. FINDINGS: Bony structures are intact and in normal alignment. Joints are intact without dislocation or signifi cant arthropathy. Osseous density is normal. Soft tissues are unremarkable. Extensive vascular calc ifications. No radiopaque foreign bodies seen. CONCLUSION: 1. Negative examination. 2. Extensive vascular calcifications. Electronically signed by: Ferdinand Fisher MD 07/09/2018 4:09 PM EDT
--- NOTE | 2018-07-09 16:13 | XR ---
EXAM DATE: 07/09/2018 3:16 PM EDT AGE/SEX: 63 years / Male INDICATIONS: Right knee pain, no known trauma. CLINICAL DATA: This is the patient's initial encounter. Patient reports that signs and symptoms have been present for 1 month and indicates a pain score of 5/10. MEDICAL/SURGICAL HISTORY: None. None. COMPARISON: No prior exams available for comparison. FINDINGS: Bony structures are intact and in normal alignment. Joints are intact without dislocation. Mild join t space narrowing particularly in the medial compartment. Osseous density is normal. Soft tissues ar e unremarkable. No radiopaque foreign bodies seen. Extensive vascular calcifications. CONCLUSION: 1. Mild degenerative osteoarthritis. 2. Extensive vascular calcifications. Electronically signed by: Ferdinand Fisher MD 07/09/2018 4:12 PM EDT
--- NOTE | 2018-07-09 16:17 | ED ---
HPI General Chief Complaint: Respiratory Symptoms Stated Complaint: SOB Time Seen by Provider: 07/09/18 15:03 Source: patient, RN notes reviewed and old records reviewed Mode of arrival: ambulatory Limitations: other (Difficult historian) History of Present Illness MD Complaint: Reports nasal congestion (And postnasal drip which is worse at nighttime when he is trying to sleep) Onset (ago): week(s) (But worse for the last 5 days) Severity scale (1-10): 6 Relieving factors: other (Sitting and standing up) Exacerbating factors: other (Laying down) Description of mucous: Reports clear Able to tolerate fluids by mouth: Yes Associated symptoms: Reports denies other symptoms; Denies fever, chills and cough Treatments prior to arrival: Reports other (Amoxicillin times 10 days gave him no relief) Related Data Home Medications Medication Instructions Recorded Confirmed No Known Home Medications 07/09/18 07/09/18 amlodipine 10 mg PO DAILY 07/09/18 07/09/18 bicalutamide 50 mg PO DAILY 07/09/18 07/09/18 calcium acetate 667 mg PO TID 07/09/18 07/09/18 leuprolide (3month)-norethind 1 dose DIRECTED 07/09/18 07/09/18 rifampin 300 mg PO Q12H 07/09/18 07/09/18 tamsulosin [Flomax] 0.4 mg PO DAILY 07/09/18 07/09/18 Allergies Allergy/AdvReac Type Severity Reaction Status Date / Time Tetanus Vaccines and Toxoid Allergy Severe Fever Verified 07/09/18 15:05 amoxicillin AdvReac Mild Nausea/Vomi Verified 07/09/18 15:05 ting Review of Systems Musculoskeletal Reports arthralgias (Left hip and bilateral knee pain since a new chemotherapy drug was used in mid May. He states that the arthralgias are intermittent.) ON LICENSE OF [facility] Medical History Medical History Acute renal failure (Acute) Acute renal failure on dialysis (Acute) Anemia (Acute) Dyspnea (Acute) Fistula (Acute) Hypertension (Acute) Kidney stone (Acute) Prostate CA (Acute) Sepsis (Acute) Vascular dialysis catheter in place (Acute) Surgical History Surgical History H/O major orthopedic surgery (Acute) Social History Social History Second Hand Smoke Exposure: No Smoking Status: Current every day smoker Tobacco Type: Cigarettes How Often Do You Have a Drink Containing Alcohol: 2 to 3 times a week Recent Travel in [facility] within the Last 8 Weeks: No Recent Out of Country Travel within the Last 8 Weeks: No Immunization History Tetanus Immunization: >5 Years Exam Const General: cooperative, healthy appearing and comfortable Orientation: alert, awake and oriented x3 HENMT Head: normal to inspection, normocephalic and atraumatic Nose: mucous membranes and turbinates abnormal (Mild edema) and nasal discharge (Clear rhinorrhea) Face and sinus: normal facial exam Mouth: oral mucosae normal Throat: posterior oropharynx normal Eyes Alignment and Position: alignment normal Conjunctivae: conjunctivae normal Sclera: sclerae normal EOM: EOM intact bilaterally Neck Neck: normal visual inspection, full ROM, no lymphadenopathy and supple Chest Chest: normal inspection of the chest Resp Effort & Inspection: normal respiratory effort and able to speak in complete sentences Auscultation: clear to auscultation bilaterally Cardio Rate: regular rate Rhythm: regular rhythm Back/Spine/Pelvis Cervical Spine: cervical ROM normal Thoracic/Lumbar Spine: thoraco-lumbar ROM normal Skin General: no rashes or lesions noted, turgor normal and dry skin Neuro General: alert, awake, oriented x3, moves all extremities and CN's II-XI intact bilaterally Extrem General: normal to inspection, full ROM and no joint enlargement Psych Appearance: grossly normal Mental Status: mental status grossly normal Speech and Movement: speech and movement normal Mood: congruent mood Affect: normal affect Attitude: cooperative Thought Process: normal Thought Content: normal Judgment: judgment good Course Consultations Consultation #1: PEGGY Almonte for Dr. Velez will admit Time: 16:56 Initial Documented Vital Signs Temperature 98.2 F 07/09/18 15:08 Pulse Rate 88 07/09/18 15:08 Respiratory Rate 16 07/09/18 15:08 Blood Pressure 178/78 H 07/09/18 15:08 Pulse Oximetry 100 07/09/18 15:08 Last Documented Vital Signs Temperature 98.2 F 07/09/18 15:08 Pulse Rate 88 07/09/18 15:08 Respiratory Rate 16 07/09/18 15:08 Blood Pressure 178/78 H 07/09/18 15:08 Pulse Oximetry 100 07/09/18 15:12 Medical Decision Making MDM Narrative Medical decision making narrative: This is a patient with a history of end- stage renal disease on dialysis cancer who presents complaining with "shortness of breath" and joint pain. His shortness of breath is really postnasal drip which aggravates him when he is trying to sleep. He does not have a cough or fever. On exam, he is a chronically ill-appearing man who does not appear to be in any acute distress. Labs and x-rays have been reviewed. He has a couple of problems including anemia. He also has an elevated alkaline phosphatase at 989. I am concerned that this could represent bony metastases. The patient initially declined admission but is now agreeable after speaking with his nurse. Medical Screen Exam Complete: Yes Emergency Medical Condition: Yes Differential Diagnosis Differential Diagnosis: Differential diagnosis of dyspnea includes but is not limited to congestive heart failure, pneumonia, wheezing, pneumothorax, pulmonary embolism Medical Records Medical records reviewed: Yes I reviewed the patient's medical records. Patient has a history of hypertension for which he refuses treatment. He has the end-stage renal disease and prostate cancer. He had MRSA sepsis in September. Lab Data Lab results reviewed: Yes I reviewed the patient's lab results. Result diagrams: 07/09/18 15:15 07/09/18 15:15 Lab Results 07/09/18 07/09/18 Range/Units 15:15 15:15 CBC w Diff Auto diff final WBC 12.0 H (4.0-11.0) th/mm3 RBC 2.39 L (4.50-5.90) mil/mm3 Hgb 7.4 L (13.0-17.0) gm/dL Hct 21.4 L (39.0-51.0) % MCV 89.7 (80.0-100.0) fL MCH 31.0 (27.0-34.0) pg MCHC 34.6 (32.0-36.0) % RDW 16.1 (11.6-17.2) % Plt Count 164 (150-450) th/mm3 MPV 7.9 (7.0-11.0) fL Neut % (Auto) 66.6 (16.0-70.0) % Lymph % (Auto) 24.5 (9.0-44.0) % [place] % (Auto) 4.7 (0.0-8.0) % Eos % (Auto) 0.9 (0.0-4.0) % Baso % (Auto) 3.3 H (0.0-2.0) % Neut # (Auto) 8.0 H (1.8-7.7) th/mm3 Lymph # (Auto) 2.9 (1.0-4.8) th/mm3 [place] # (Auto) 0.6 (0.0-0.9) th/mm3 Eos # (Auto) 0.1 (0.0-0.4) th/mm3 Baso # (Auto) 0.4 H (0.0-0.2) th/mm3 WBC Differential . Differential Comment . Sodium 133 L (136-145) meq/L Potassium 3.9 (3.5-5.1) meq/L Chloride 101 (98-107) meq/L Carbon Dioxide 20.3 L (21.0-32.0) meq/L Anion Gap 12 (5-15) meq/L BUN 34 H (7-18) mg/dL Creatinine 5.30 H (0.60-1.30) mg/dL Estimated GFR 11 L (>89) mL/min Random Glucose 116 H (74-106) mg/dL Calcium 7.4 L* (8.5-10.1) mg/dL Prot Corrected Calcium 7.8 L (8.5-10.1) mg/dL Total Bilirubin 0.2 (0.2-1.0) mg/dL AST 54 H (15-37) U/L ALT 14 (12-78) U/L Alkaline Phosphatase 989 H (45-117) U/L Troponin I 0.09 H (0.02-0.05) ng/mL Total Protein 6.4 (6.4-8.2) g/dL Albumin 2.6 L (3.4-5.0) g/dL Imaging Data Attestation: I personally reviewed and interpreted this imaging study as follows : Radiologist's impression: Chest X-Ray 07/09/18 15:11 CONCLUSION: 1. Cardiomegaly with mild positive fluid balance. 2. Minimal right and moderate left lung base airspace consolidation, presumably atelectasis. Hip X-Ray 07/09/18 15:16 CONCLUSION: 1. Moderate to severe degenerative osteoarthritis. Knee X-Ray 07/09/18 15:16 CONCLUSION: 1. Negative examination. 2. Extensive vascular calcifications. Knee X-Ray 07/09/18 15:16 CONCLUSION: 1. Mild degenerative osteoarthritis. 2. Extensive vascular calcifications. Discharge Plan Discharge Disposition Patient Disposition: 30 Still Patient Discharge Details Diagnosis: Anemia, Joint pain, Dyspnea Physicians Team ED Provider: Magi Mcintyre Primary Care Provider: Primary Care PhysiciBhavani Rxs /Orders / Referrals /Forms Prescriptions: No Action bicalutamide 50 mg Tablet 50 mg PO DAILY RF: 0 calcium acetate 667 mg Tablet 667 mg PO TID RF: 0 rifampin 300 mg Capsule 300 mg PO Q12H RF: 0 tamsulosin [Flomax] 0.4 mg Capsule 0.4 mg PO DAILY RF: 0 amlodipine 10 mg Tablet 10 mg PO DAILY RF: 0 leuprolide (3month)-norethind 11.25 mg -5 mg (90) Kit. Syringe And Tablet 1 dose DIRECTED RF: 0 No Known Home Medications RF: 0 Discharge Interventions Interventions: Vital Signs Last Done: 07/09/18 15:08 Status ED Status: With Doctor
[2018-07-09 16:26] LABS: Albumin 2.6 g/dL (3.4-5.0); Calcium 7.4 mg/dL (8.5-10.1); Carbon Dioxide 20.3 meq/L (21.0-32.0); Total Protein 6.4 g/dL (6.4-8.2); Troponin I 0.09 ng/mL (0.02-0.05)
[2018-07-09] MEDS ORDERED: Bisacodyl 10 MG Supp RECTAL PRN (16:56)
[2018-07-09] MEDS ORDERED: Heparin - SQ 10,000 UNITS/ML Vial SQ SCH (18:00)
--- NOTE | 2018-07-09 18:02 | P.HP ---
History of Present Illness Primary Care Physician: No Primary Care Physician Chief Complaint: Shortness of breath and fatigue History of Present Illness: This is a very pleasant 63-year-old male patient with a known medical history of end-stage renal disease, prostate cancer currently undergoing chemotherapy, hypertension who presented to the ED with complaints of shortness of breath as well as fatigue x 1 week. Patient states that he saw his PCP couple weeks ago was prescribed amoxicillin for a sinus infection and since that time he states he has been having nausea and not feeling himself. It should also be noted that patient has been having increasing knee and hip pain over the past couple weeks. Patient denies any diarrhea or vomiting he states that he has been increasingly short of breath and fatigued especially with exertion over the past week. He also notices that he is looking more pale and suspected he was anemic. Patient does have end-stage renal disease, undergoes dialysis at [facility] , was follow-up with Dr. Duval, receives dialysis on Tuesday, Tuesday and Fridays. Patient also is undergoing chemotherapy with Dr. Fine, urology, he receives a monthly dose of chemo and has been undergoing treatment for the last 14 months. His last chemotherapy was a month ago. Patient just underwent AV fistula surgery, states that this has not been used yet and he just got approval for use now. He presents with a right chest port. At the time of assessment patient is on 2 L nasal cannula, lying in bed comfortably no apparent distress. Leukocytosis noted on blood work as well as anemia with hemoglobin of 7.4. Patient denies any recent bloody or black stools. - Diagnosis (1) Anemia (2) Joint pain (3) Dyspnea Review of Systems All other systems reviewed negative except as stated in HPI PMFSH - History History Provided By: Patient - Medical History Medical History: Medical History (Last Reviewed 07/09/18 @ 17:56 by Suzy Santos) Acute renal failure Acute renal failure on dialysis Anemia Dyspnea Fistula Hypertension Kidney stone Prostate CA Sepsis Vascular dialysis catheter in place - Surgical History Surgical History: Surgical History (Last Reviewed 07/09/18 @ 17:56 by Suzy Santos) H/O major orthopedic surgery - Family History Family History: Family History (Last Updated 07/09/18 @ 17:56 by Suzy Santos) Other Family history in first degree relatives is unremarkable Family history non-contributory - Social History I have reviewed the patient's Social History: Yes - Tobacco History Second Hand Smoke Exposure: No Tobacco Use In Past 30 Days: Yes Smoking Status: Current every day smoker Tobacco Type: Cigarettes - Alcohol History How Often Do You Have a Drink Containing Alcohol: 2 to 3 times a week - Travel History Recent Travel in the [place] Within the Last 8 Weeks: No Recent Travel Out of the Country Within the Last 8 Weeks: No - Immunization History Tetanus Immunization: >5 Years Medications and Allergies Active Medications: Active Medications Al Hydroxide/Mg Hydroxide (Milk Of Magnesia Liq) 30 ml PO Q12H PRN PRN Reason: Mild Constipation Amlodipine Besylate (Norvasc) 10 mg PO DAILY CYNDIE Bicalutamide (Casodex) 50 mg PO DAILY CYNDIE Bisacodyl (Dulcolax Supp) 10 mg RECTAL DAILY PRN PRN Reason: SEVERE CONSITIPATION Calcium Acetate (Phoslo) 667 mg PO TID CYNDIE Heparin Sodium (Porcine) (Heparin Inj) 5,000 units SQ Q12H CYNDIE Lactulose (Lactulose Liq) 30 ml PO DAILY PRN PRN Reason: SEVERE CONSITIPATION Ondansetron HCl (Zofran Inj) 4 mg IV.PUSH Q6H PRN PRN Reason: NAUSEA OR VOMITING Rifampin (Rifampin) 300 mg PO Q12HR CYNDIE Sennosides (Senokot) 17.2 mg PO Q12H PRN PRN Reason: Moderate Constipation Tamsulosin HCl (Flomax) 0.4 mg PO DAILY CYNDIE Allergies Allergy/AdvReac Type Severity Reaction Status Date / Time Tetanus Vaccines and Toxoid Allergy Severe Fever Verified 07/09/18 15:05 amoxicillin AdvReac Mild Nausea/Vomi Verified 07/09/18 15:05 ting Home Medications Medication Instructions Recorded Confirmed Type amlodipine 10 mg PO DAILY 07/09/18 07/09/18 History bicalutamide 50 mg PO DAILY 07/09/18 07/09/18 History calcium acetate 667 mg PO TID 07/09/18 07/09/18 History leuprolide (3month)-norethind 1 dose DIRECTED 07/09/18 07/09/18 History rifampin 300 mg PO Q12H 07/09/18 07/09/18 History tamsulosin [Flomax] 0.4 mg PO DAILY 07/09/18 07/09/18 History Exam Vital signs: Vital Signs 07/09/18 15:08 07/09/18 15:12 07/09/18 17:26 Temperature 98.2 F Pulse Rate 88 73 Respiratory Rate 16 16 Blood Pressure 178/78 H 151/67 H Pulse Oximetry 100 100 99 Intake & Output 07/08/18 07/09/18 07/09/18 18:59 06:59 18:59 Weight 80 kg Narrative: GENERAL: Well-developed, well-nourished patient in NAD. On supplemental O2 2 L nasal cannula. SKIN: Warm and dry. No rash. Pale. Right chest Vas-Cath, dressing dry and intact, skin rounded traversing clean, no erythema no drainage. HEAD: Normocephalic. Atraumatic. EYES: Pupils equal and round. No scleral icterus. No injection or drainage. ENT: No nasal bleeding or discharge. Mucous membranes pink and moist. NECK: Supple. Trachea midline. CARDIOVASCULAR: Regular rate and rhythm. S1, S2 noted. No murmur appreciated. RESPIRATORY: No accessory muscle use. Clear to auscultation. Breath sounds equal bilaterally. GASTROINTESTINAL: Abdomen soft, non-tender, nondistended. Normoactive bowel sounds x4. MUSCULOSKELETAL: No obvious deformities. Extremities without clubbing, cyanosis. Bilateral lower extremity edema, 2+. DP and pedal pulses present. NEUROLOGICAL: Awake and alert. No obvious cranial nerve deficits. Motor grossly within normal limits. 5/5 muscle strength in bilateral upper and lower extremities. Normal speech. PSYCHIATRIC: Appropriate mood and affect; insight and judgment normal. Results - Labs CBC & Chem 7: 07/09/18 15:15 07/09/18 15:15 Labs: Laboratory Results - last 24 hr 07/09/18 07/09/18 15:15 15:15 CBC w Diff Auto diff final WBC 12.0 H RBC 2.39 L Hgb 7.4 L Hct 21.4 L MCV 89.7 MCH 31.0 MCHC 34.6 RDW 16.1 Plt Count 164 MPV 7.9 Neut % (Auto) 66.6 Lymph % (Auto) 24.5 [place] % (Auto) 4.7 Eos % (Auto) 0.9 Baso % (Auto) 3.3 H Neut # (Auto) 8.0 H Lymph # (Auto) 2.9 [place] # (Auto) 0.6 Eos # (Auto) 0.1 Baso # (Auto) 0.4 H WBC Differential . Differential Comment . Sodium 133 L Potassium 3.9 Chloride 101 Carbon Dioxide 20.3 L Anion Gap 12 BUN 34 H Creatinine 5.30 H Estimated GFR 11 L Random Glucose 116 H Calcium 7.4 L* Prot Corrected Calcium 7.8 L Total Bilirubin 0.2 AST 54 H ALT 14 Alkaline Phosphatase 989 H Troponin I 0.09 H Total Protein 6.4 Albumin 2.6 L - Imaging Impressions Chest X-Ray 07/09/18 15:11 CONCLUSION: 1. Cardiomegaly with mild positive fluid balance. 2. Minimal right and moderate left lung base airspace consolidation, presumably atelectasis. Hip X-Ray 07/09/18 15:16 CONCLUSION: 1. Moderate to severe degenerative osteoarthritis. Knee X-Ray 07/09/18 15:16 CONCLUSION: 1. Negative examination. 2. Extensive vascular calcifications. Knee X-Ray 07/09/18 15:16 CONCLUSION: 1. Mild degenerative osteoarthritis. 2. Extensive vascular calcifications. Caprini VTE Risk Assessment Caprini VTE Risk Assessment: Moderate/High Risk (score >= 2) Caprini Risk Assessment Model: Point Value = 1 Point Value = 2 Point Value = 3 Point Value = 5 Age 41-60 Minor surgery BMI > 25 kg/m2 Swollen legs Varicose veins or History of unexplained or recurrent spontaneous Oral contraceptives or hormone replacement Sepsis (< 1 month) Serious lung disease, including pneumonia (< 1 month) Abnormal pulmonary function Acute myocardial infarction Congestive heart failure (< 1 month) History of inflammatory bowel disease Medical patient at bed rest Age 61-74 Arthroscopic surgery Major open surgery (> 45 min) Laparoscopic surgery (> 45 min) Malignancy Confined to bed (> 72 hours) Immobilizing plaster cast Central venous access Age >= 75 History of VTE Family history of VTE Factor V Leiden Prothrombin [id number] Lupus anticoagulant Anticardiolipin antibodies Elevated serum homocysteine Heparin-induced thrombocytopenia Other congenital or acquired thrombophilia Stroke (< 1 month) Elective arthroplasty Hip, pelvis, or leg fracture Acute spinal cord injury (< 1 month) Prophylaxis Regimen: Total Risk Factor Score Risk Level Prophylaxis Regimen 0-1 Low Early ambulation 2 Moderate Order ONE of the following: *Sequential Compression Device (SCD) *Heparin 5000 units SQ BID 3-4 Higher Order ONE of the following medications: *Heparin 5000 units SQ TID *Enoxaparin/Lovenox 40 mg SQ daily (WT < 150 kg, CrCl > 30 mL/min) *Enoxaparin/Lovenox 30 mg SQ daily (WT < 150 kg, CrCl > 10-29 mL/min) *Enoxaparin/Lovenox 30 mg SQ BID (WT < 150 kg, CrCl > 30 mL/min) AND/OR *Sequential Compression Device (SCD) 5 or more Highest Order ONE of the following medications: *Heparin 5000 units SQ TID (Preferred with Epidurals) *Enoxaparin/Lovenox 40 mg SQ daily (WT < 150 kg, CrCl > 30 mL/min) *Enoxaparin/Lovenox 30 mg SQ daily (WT < 150 kg, CrCl > 10-29 mL/min) *Enoxaparin/Lovenox 30 mg SQ BID (WT < 150 kg, CrCl > 30 mL/min) AND *Sequential Compression Device (SCD) Assessment and Plan - Assessment (1) Anemia Code(s): D64.9 - Anemia, unspecified Status: Acute (2) Joint pain Code(s): M25.50 - Pain in unspecified joint Status: Acute (3) Dyspnea Code(s): R06.00 - Dyspnea, unspecified Status: Acute - Plan This is a pleasant 63-year-old male patient with a known history of end-stage renal disease on dialysis Tuesday, prostate cancer undergoing chemotherapy who presented to the ED with: Symptomatic anemia suspect secondary to end-stage renal disease -Hemoglobin 7.4/hematocrit 21.4. Patient denies any obvious bleeding. Admits to shortness of breath and increasing fatigue times 2 weeks. Pale skin. -Creat 5.3/GFR 11, this is baseline for patient. Nephrology consulted, follows with Dr. Duval, requesting input for dialysis, patient receives on Tuesday, Tuesday and Tuesday. -Will check an occult stool. Will also check iron studies. -Will trend H&H. Transfuse if less than 7.0. -Continue cardiac telemetry, monitor for any arrhythmias. -Continue home Rifampin and phoslo. -Supportive care. Hypoxia with shortness of breath suspect secondary to anemia -Chest x-ray reviewed showing cardiomegaly with positive fluid balance. Some airspace consolidation likely atelectasis. -On O2 to keep oxygen saturations greater than 92%. Leukocytosis -WBC 12,000 on presentation. No sxs of infection. Afebrile. Will check a UA. Repeat CBC in am. Elevated troponin -Troponin 0.09 on presentation. Will trend serial EKGs and serial troponins. -Denies any chest pain. Continue on cardiac tele, monitor for any arrhythmias. -CXR as above. Elevated alkaline phosphatase -Patient presented with generalized worsening pain and aches in lower extremities. -ED physician ordered for knee and hip x-rays which are unremarkable for any acute findings. -Concern for metastatic disease. At this time patient states that he does not follow with an oncologist and only sees Dr. Fine. -He has been undergoing chemotherapy once monthly for the past 14 months. At this point patient states it makes him feel terrible and states he does not want to continue. -Will call Dr. Fine tomorrow. Possible consult will be placed to palliative care. -Continue to follow. History of prostate cancer currently undergoing chemotherapy -Patient states that last chemotherapy was [address] Fine. He receives his treatment monthly. -Stable at this time. We will continue to monitor. Monitor intake and output. -Continue Casodex. DVT prophylaxis: SCDs. Hold chemical prophylaxis for now for possible bleeding in diagnosis of anemia. (1) Anemia Qualifiers: Anemia type: due to chronic kidney disease Chronic kidney disease stage: on chronic dialysis Qualified Code(s): N18.6 - End stage renal disease; D63.1 - Anemia in chronic kidney disease; Z99.2 - Dependence on renal dialysis (2) Joint pain Qualifiers: Joint pain location: unspecified Qualified Code(s): M25.50 - Pain in unspecified joint (3) Dyspnea Qualifiers: Dyspnea type: shortness of breath Qualified Code(s): R06.02 - Shortness of breath; R06.00 - Dyspnea, unspecified; R06.01 - Orthopnea
[2018-07-09] MEDS: Calcium Acetate 667 MG Capsule PO SCH (18:24)
[2018-07-09 19:15] LABS: % Iron Saturation 15.6 % (20-50)
[2018-07-09] MEDS: Temazepam 15 MG Capsule PO PRN (20:52)
[2018-07-09] MEDS: HYDROmorphone PF Inj 2 MG/ML Vial IV.PUSH PRN (20:53)
[2018-07-09 21:12] LABS: Hematocrit 22.5 % (39.0-51.0); Hemoglobin 7.5 gm/dL (13.0-17.0)
[2018-07-09 21:29] LABS: Creatine Kinase 159 U/L (39-308)
[2018-07-09 21:41] LABS: Creatine Kinase MB 1.1 ng/mL (0.5-3.6)
[2018-07-10 03:39] LABS: Creatine Kinase 133 U/L (39-308); Troponin I 0.09 ng/mL (0.02-0.05)
--- NOTE | 2018-07-10 07:40 | P.PNIM ---
Subjective Interval history: Follow up symptomatic anemia. Patient seen and examined, lying in bed comfortably eating his breakfast in nad. Slept well overnight. Is having low grade fevers. Awaiting dialysis today. Awaiting blood work and UA. VSS. Denies any chest pain, shortness of breath, ab pain, n/v/d or dysuria. Is comfortable on RA with adequate O2 sats. Physical Exam Vital signs: Vital Signs 07/09/18 15:08 07/09/18 15:12 07/09/18 17:26 Temperature 98.2 F Pulse Rate 88 73 Respiratory Rate 16 16 Blood Pressure 178/78 H 151/67 H Pulse Oximetry 100 100 99 07/09/18 20:00 07/10/18 00:00 07/10/18 04:00 Temperature 99.3 F 99.7 F H 99.8 F H Pulse Rate 76 74 Respiratory Rate 18 18 Blood Pressure 169/77 H 131/58 L Pulse Oximetry 94 L 90 L Intake & Output 07/09/18 07/10/18 07/10/18 18:59 06:59 18:59 Intake Total 240 / 240 480 / 480 Output Total 400 / 400 Balance 240 / 240 80 / 80 Weight 80 kg 80 kg Intake: Oral 240 / 240 480 / 480 Output: Urine 400 / 400 Narrative: GENERAL: Well-developed, well-nourished patient in NAD. On RA. SKIN: Warm and dry. No rash. Pale. Right chest Vas-Cath, dressing dry and intact, skin rounded traversing clean, no erythema no drainage. HEAD: Normocephalic. Atraumatic. EYES: Pupils equal and round. No scleral icterus. No injection or drainage. ENT: No nasal bleeding or discharge. Mucous membranes pink and moist. NECK: Supple. Trachea midline. CARDIOVASCULAR: Regular rate and rhythm. S1, S2 noted. No murmur appreciated. RESPIRATORY: No accessory muscle use. Clear to auscultation. Breath sounds equal bilaterally. GASTROINTESTINAL: Abdomen soft, non-tender, nondistended. Normoactive bowel sounds x4. MUSCULOSKELETAL: No obvious deformities. Extremities without clubbing, cyanosis. Bilateral lower extremity edema, 2+. DP and pedal pulses present. NEUROLOGICAL: Awake and alert. No obvious cranial nerve deficits. Motor grossly within normal limits. 5/5 muscle strength in bilateral upper and lower extremities. Normal speech. PSYCHIATRIC: Appropriate mood and affect; insight and judgment normal. Results - Labs CBC & Chem 7: 07/10/18 12:56 07/10/18 12:56 Laboratory Results - last 24 hr 07/09/18 07/09/18 07/09/18 15:15 15:15 15:15 CBC w Diff Auto diff final WBC 12.0 H RBC 2.39 L Hgb 7.4 L Hct 21.4 L MCV 89.7 MCH 31.0 MCHC 34.6 RDW 16.1 Plt Count 164 MPV 7.9 Neut % (Auto) 66.6 Lymph % (Auto) 24.5 [place] % (Auto) 4.7 Eos % (Auto) 0.9 Baso % (Auto) 3.3 H Neut # (Auto) 8.0 H Lymph # (Auto) 2.9 [place] # (Auto) 0.6 Eos # (Auto) 0.1 Baso # (Auto) 0.4 H WBC Differential . Differential Comment . Sodium 133 L Potassium 3.9 Chloride 101 Carbon Dioxide 20.3 L Anion Gap 12 BUN 34 H Creatinine 5.30 H Estimated GFR 11 L Random Glucose 116 H Calcium 7.4 L* Prot Corrected Calcium 7.8 L Iron 33 L TIBC 211 L % Saturation 15.6 L Total Bilirubin 0.2 AST 54 H ALT 14 Alkaline Phosphatase 989 H Total Creatine Kinase CK-MB (CK-2) Troponin I 0.09 H Total Protein 6.4 Albumin 2.6 L 07/09/18 07/09/18 07/10/18 21:00 21:00 03:05 CBC w Diff WBC RBC Hgb 7.5 L Hct 22.5 L MCV MCH MCHC RDW Plt Count MPV Neut % (Auto) Lymph % (Auto) [place] % (Auto) Eos % (Auto) Baso % (Auto) Neut # (Auto) Lymph # (Auto) [place] # (Auto) Eos # (Auto) Baso # (Auto) WBC Differential Differential Comment Sodium Potassium Chloride Carbon Dioxide Anion Gap BUN Creatinine Estimated GFR Random Glucose Calcium Prot Corrected Calcium Iron TIBC % Saturation Total Bilirubin AST ALT Alkaline Phosphatase Total Creatine Kinase 159 133 CK-MB (CK-2) 1.1 Less than 1.0 Troponin I 0.10 H 0.09 H Total Protein Albumin - Imaging Impressions Chest X-Ray 07/09/18 15:11 CONCLUSION: 1. Cardiomegaly with mild positive fluid balance. 2. Minimal right and moderate left lung base airspace consolidation, presumably atelectasis. Hip X-Ray 07/09/18 15:16 CONCLUSION: 1. Moderate to severe degenerative osteoarthritis. Knee X-Ray 07/09/18 15:16 CONCLUSION: 1. Negative examination. 2. Extensive vascular calcifications. Knee X-Ray 07/09/18 15:16 CONCLUSION: 1. Mild degenerative osteoarthritis. 2. Extensive vascular calcifications. Assessment and Plan - Assessment (1) Anemia Code(s): D64.9 - Anemia, unspecified Status: Acute (2) Joint pain Code(s): M25.50 - Pain in unspecified joint Status: Acute (3) Dyspnea Code(s): R06.00 - Dyspnea, unspecified Status: Acute - Plan This is a pleasant 63-year-old male patient with a known history of end-stage renal disease on dialysis Tuesday, prostate cancer undergoing chemotherapy who presented to the ED with: Symptomatic anemia suspect secondary to end-stage renal disease -Hemoglobin 7.4/hematocrit 21.4. Patient denies any obvious bleeding. Admits to shortness of breath and increasing fatigue times 2 weeks, has improved overnight. Pale skin. -Creat 5.3/GFR 11, this is baseline for patient. Nephrology consulted, follows with Dr. Duval, requesting input for dialysis, patient receives on Tuesday, Tuesday and Tuesday. Will obtain treatment today. -Will check an occult stool. Will also check iron studies. -Will trend H&H. Transfuse 1 unit PRBC. -Continue cardiac telemetry, monitor for any arrhythmias. -Continue home Rifampin and phoslo. -Supportive care. Hypoxia with shortness of breath suspect secondary to anemia -Chest x-ray reviewed showing cardiomegaly with positive fluid balance. Some airspace consolidation likely atelectasis. -On O2 to keep oxygen saturations greater than 92%. Leukocytosis -WBC 12,000 on presentation. No sxs of infection. Afebrile. Will check a UA. Repeat CBC in am. Elevated troponin -Troponin 0.09 on presentation. Serial troponins neg. -Denies any chest pain. Continue on cardiac tele, monitor for any arrhythmias. -CXR as above. Elevated alkaline phosphatase -Patient presented with generalized worsening pain and aches in lower extremities. -ED physician ordered for knee and hip x-rays which are unremarkable for any acute findings. -Concern for metastatic disease. At this time patient states that he does not follow with an oncologist and only sees Dr. Fine. -He has been undergoing chemotherapy q3 months for the past 14 months. -At this point patient states it makes him feel terrible and states he does not want to continue treatments and will discuss this further with Dr. Fine at his appointment. -Pain is more controlled today. States his pain is intermittent. History of prostate cancer currently undergoing chemotherapy -Patient states that last chemotherapy was [address] Fine. He receives his treatment monthly. -Stable at this time. Will continue to monitor. Monitor intake and output. -Continue Casodex. DVT prophylaxis: SCDs. Hold chemical prophylaxis for now for possible bleeding in diagnosis of anemia. Discharge Planning: Await labwork in am for anemia and clinical improvement. (1) Anemia Qualifiers: Anemia type: due to chronic kidney disease Chronic kidney disease stage: on chronic dialysis Qualified Code(s): N18.6 - End stage renal disease; D63.1 - Anemia in chronic kidney disease; Z99.2 - Dependence on renal dialysis (2) Joint pain Qualifiers: Joint pain location: unspecified Qualified Code(s): M25.50 - Pain in unspecified joint (3) Dyspnea Qualifiers: Dyspnea type: shortness of breath Qualified Code(s): R06.02 - Shortness of breath; R06.00 - Dyspnea, unspecified; R06.01 - Orthopnea
[2018-07-10] MEDS: amLODIPine 10 MG Tablet PO SCH (08:42)
[2018-07-10] MEDS: Calcium Acetate 667 MG Capsule PO SCH ×3 (08:43→18:04)
[2018-07-10] MEDS: MethylPREDNISolone Sod Succinate Inj 40 MG/ML Vial IV.PUSH SCH ×3 (08:49→20:50)
[2018-07-10] MEDS ORDERED: Acetaminophen 325 MG Tablet PO PRN (12:55)
[2018-07-10] MEDS ORDERED: Gelatin 12 MM/7 MM Topical Foam TOPICAL PRN (12:55)
[2018-07-10] MEDS ORDERED: Sod Chloride 0.9% Inj 1,000 ML IV.CONT PRN (12:55)
[2018-07-10] MEDS ORDERED: Albumin Human 25% Inj 100 ML IV.SIG PRN (12:55)
[2018-07-10] MEDS ORDERED: Heparin 10,000 UNITS/10 ML Vial (for IV use) OTHER PRN (12:55)
[2018-07-10] MEDS ORDERED: Sod Chloride 0.9% Inj 1,000 ML OTHER PRN ×2 (12:55)
[2018-07-10 13:23] LABS: Potassium 4.2 meq/L (3.5-5.1)
[2018-07-10 13:28] LABS: Baso # (Auto) 0.1 th/mm3 (0.0-0.2); Baso % (Auto) 0.8 % (0.0-2.0); Eos % (Auto) 0.3 % (0.0-4.0); Hematocrit 21.2 % (39.0-51.0); Hemoglobin 7.1 gm/dL (13.0-17.0); Lymph # (Auto) 2.9 th/mm3 (1.0-4.8); Lymph % (Auto) 23.3 % (9.0-44.0); Mean Corpuscular HGB Conc 33.4 % (32.0-36.0); Mean Corpuscular Hemoglobin 30.2 pg (27.0-34.0); Mean Corpuscular Volume 90.4 fL (80.0-100.0); Mean Platelet Volume 7.8 fL (7.0-11.0); Mono # (Auto) 0.3 th/mm3 (0.0-0.9); Mono % (Auto) 2.5 % (0.0-8.0); Neut # (Auto) 9.1 th/mm3 (1.8-7.7); Neut % (Auto) 73.1 % (16.0-70.0); Platelet Count 170 th/mm3 (150-450); Red Blood Count 2.34 mil/mm3 (4.50-5.90); Red Cell Distribution Width 15.6 % (11.6-17.2); White Blood Count 12.4 th/mm3 (4.0-11.0)
[2018-07-10 13:35] LABS: Albumin 2.4 g/dL (3.4-5.0); Calcium 7.2 mg/dL (8.5-10.1); Carbon Dioxide 21.4 meq/L (21.0-32.0); Total Protein 6.4 g/dL (6.4-8.2)
[2018-07-10] MEDS ORDERED: Sodium Chlor 0.9% Inj 250 ML IV.SIG SCH (14:00)
[2018-07-10] MEDS: Azithromycin 250 MG Tablet PO SCH (14:01)
[2018-07-10 14:37] LABS: Bilirubin,Urine Negative (Negative); Clarity,Urine Turbid (Clear); Color,Urine Yellow (Yellw/Straw); Glucose,Urine (UA) Negative (Negative); Leukocyte Esterase,Urine Large (Negative); Nitrite,Urine Negative (Negative); PH,Urine 7.5 (5.0-8.5); Specific Gravity,Urine 1.015 (1.002-1.035); Urobilinogen,Urine 0.2 mg/dL (Less than 2)
[2018-07-10 14:42] LABS: WBC,Urine 51-189 /hpf (0-5)
[2018-07-10 14:43] LABS: Bacteria,Urine Moderate /hpf
[2018-07-10] MEDS: Heparin 10,000 UNITS/10 ML Vial (for IV use) OTHER PRN (15:07)
--- NOTE | 2018-07-10 15:57 | P.CONNP ---
History of Present Illness Service: Nephrology Consult date: 07/10/18 Requesting Physician: Cinthia Velez Reason for Consult: ESRD for dialysis arrangement Primary Care Provider: No Primary Care Physician Chief Complaint: Shortness of breath and fatigue History of Present Illness: Patient is a 63-year-old white male with history of prostate cancer, obstructive uropathy, ESRD on hemodialysis who has been on chemotherapy, he states that he received a different short and developed side effects including increasing bone pain, felt weak and tired since last month, he was getting Epogen at outpatient center however his hemoglobin now is 7.1, patient felt weak tired increasing shortness of breath, he denies any black stools. He goes on dialysis on Tuesday, Tuesday and Tuesday. Review of Systems Constitutional: Reports body ache(s), Reports weight loss Eyes: Denies blind spots, Denies blurry vision, Denies bulging eyes, Denies change in vision, Denies double vision, Denies discharge, Denies dry eyes, Denies floaters, Denies irritation, Denies itchy eyes, Denies loss of vision, Denies pain, Denies requires corrective lenses, Denies sensitivity to light, Denies other Ears, Nose, Mouth, and Throat: Denies abnormal hearing, Denies bleeding gums, Denies bad breath, Denies change in voice, Denies dental pain, Denies difficulty swallowing, Denies dizziness, Denies dry mouth, Denies ear discharge , Denies ear pain, Denies facial pain, Denies headache(s), Denies hearing loss, Denies hoarseness, Denies lip swelling, Denies nosebleed, Denies mouth lesions, Denies mouth pain, Denies nasal congestion, Denies nasal discharge, Denies nasal obstruction, Denies nasal trauma, Denies neck lump, Denies neck pain, Denies nose pain, Denies pain with swallowing, Denies poor balance, Denies post nasal drip, Denies ringing in the ears, Denies sinus pain, Denies sinus pressure , Denies sore throat, Denies throat swelling, Denies tongue swelling, Denies other Cardiovascular: Reports shortness of breath Respiratory: Reports shortness of breath Gastrointestinal: Reports other Genitourinary: Reports other (See history of present illness) Musculoskeletal: Reports back pain, Reports decreased muscle mass Skin/Breast: Reports other Neurologic: Reports weakness Psychiatric: Reports other Endocrine: Reports other Hematologic/Lymphatic: Reports easy bruising PMFSH - History History Provided By: Patient - Medical History Medical History: Medical History (Last Reviewed 07/10/18 @ 15:54 by Karena Duval MD) Acute renal failure Acute renal failure on dialysis Anemia Dyspnea Fistula Hypertension Kidney stone Prostate CA Sepsis Vascular dialysis catheter in place - Surgical History Surgical History: Surgical History (Last Reviewed 07/10/18 @ 15:54 by Karena Duval MD) H/O major orthopedic surgery - Family History Family History: Family History (Last Reviewed 07/10/18 @ 15:54 by Karena Duval MD) Other Family history in first degree relatives is unremarkable Family history non-contributory - Social History I have reviewed the patient's Social History: Yes - Tobacco History Second Hand Smoke Exposure: No Tobacco Use In Past 30 Days: Yes Smoking Status: Light tobacco smoker Tobacco Type: Cigarettes - Alcohol History How Often Do You Have a Drink Containing Alcohol: 4 or more times a week - Substance Use History Substance History: No History of Abuse - Travel History Recent Travel in the [place] Within the Last 8 Weeks: No Recent Travel Out of the Country Within the Last 8 Weeks: No - Immunization History Tetanus Immunization: >5 Years Medications and Allergies Active Medications: Active Medications Al Hydroxide/Mg Hydroxide (Milk Of Yaritza Liforeign) 30 ml PO Q12H PRN PRN Reason: Mild Constipation Albuterol (Duoneb Neb (Prn)) 1 ampul NEB Q2HR NEB PRN PRN Reason: SHORTNESS OF BREATH/WHEEZING Last Admin: 07/10/18 13:37 Dose: 1 ampul Amlodipine Besylate (Norvasc) 10 mg PO DAILY [facility] Last Admin: 07/10/18 08:42 Dose: Not Given Azithromycin (Zithromax) 500 mg PO DAILY [facility] Last Admin: 07/10/18 14:01 Dose: 500 mg Bicalutamide (Casodex) 50 mg PO DAILY [facility] Last Admin: 07/10/18 08:49 Dose: 50 mg Bisacodyl (Dulcolax Supp) 10 mg RECTAL DAILY PRN PRN Reason: SEVERE CONSITIPATION Calcium Acetate (Phoslo) 667 mg PO TID [facility] Last Admin: 07/10/18 12:22 Dose: 667 mg Clonidine HCl (Catapres) 0.1 mg PO UNSCH PRN PRN Reason: SEE LABEL COMMENTS Diphenhydramine HCl (Benadryl) 25 mg PO UNSCH PRN PRN Reason: SEE LABEL COMMENTS Epoetin Hermes (Epogen Inj) 10,000 unit IV.PUSH UNSCH PRN PRN Reason: SEE LABEL COMMENTS Last Admin: 07/10/18 15:06 Dose: 10,000 unit Gelatin (Gelfoam 12 Mm/7 Mm Topical) 1 foam TOPICAL PRN PRN PRN Reason: help stop bleeding from site Gentamicin Sulfate (Gentamicin Inj) 20 mg OTHER WITH DIALYSIS PRN PRN Reason: Dwell Gentamycin Lock Last Admin: 07/10/18 15:07 Dose: 20 mg Heparin Sodium (Porcine) (Heparin Inj) 8,000 units OTHER WITH DIALYSIS PRN PRN Reason: for machine prime Heparin Sodium (Porcine) (Heparin Inj) 1,000 units OTHER WITH DIALYSIS PRN PRN Reason: Dwell Heparin to Fill Catheter Last Admin: 07/10/18 15:07 Dose: 1,000 units Hydromorphone HCl (Dilaudid Pf Inj) 0.5 mg IV.PUSH Q4H PRN PRN Reason: PAIN SCALE 1 TO 10 Last Admin: 07/09/18 20:53 Dose: 0.5 mg Ceftriaxone Sodium 1,000 mg/ (Sodium Chloride) 100 mls @ 200 mls/hr IV.SIG Q24H CYNDIE Last Admin: 07/10/18 14:17 Dose: 200 mls/hr Albumin Human (Flexbumin 25% Inj) 100 mls @ 60 mls/hr IV.SIG WITH DIALYSIS PRN PRN Reason: hypotension / volume replace Sodium Chloride (Ns Inj) 1,000 mls @ 0 mls/hr OTHER .Q0M PRN PRN Reason: for prime and rinse back Last Admin: 07/10/18 15:08 Dose: 200 mls/hr Sodium Chloride (Ns Inj) 1,000 mls @ 200 mls/hr OTHER .Q5H PRN PRN Reason: for dialyzer flush PRN Sodium Chloride (Ns Inj) 1,000 mls @ 0 mls/hr IV.CONT .Q0M PRN PRN Reason: hypotension / volume replace Sodium Chloride (Ns Inj) 250 mls @ 15 mls/hr IV.SIG ONCE CYNDIE Stop: 07/11/18 06:39 Lactulose (Lactulose Liq) 30 ml PO DAILY PRN PRN Reason: SEVERE CONSITIPATION Mannitol (Mannitol Inj) 12.5 gm IV.PUSH UNSCH PRN PRN Reason: hypotension / volume replace Methylprednisolone Sodium Succinate (Solumedrol Inj) 40 mg IV.PUSH Q6H [facility] Last Admin: 07/10/18 08:49 Dose: 40 mg Nitroglycerin (Nitrostat Sl) 0.4 mg SL Q5M PRN PRN Reason: CHEST PAIN Ondansetron HCl (Zofran Inj) 4 mg IV.PUSH Q6H PRN PRN Reason: NAUSEA OR VOMITING Ondansetron HCl (Zofran Inj) 4 mg IV.PUSH UNSCH PRN PRN Reason: NAUSEA OR VOMITING Rifampin (Rifampin) 300 mg PO Q12HR [facility] Last Admin: 07/10/18 08:44 Dose: Not Given Sennosides (Senokot) 17.2 mg PO Q12H PRN PRN Reason: Moderate Constipation Sodium Chloride (Ns Flush) 5 ml IV.FLUSH PRN PRN PRN Reason: flush each lumen during HD Tamsulosin HCl (Flomax) 0.4 mg PO DAILY [facility] Last Admin: 07/10/18 08:43 Dose: 0.4 mg Temazepam (Restoril) 15 mg PO HS PRN PRN Reason: INSOMNIA Last Admin: 07/09/18 20:52 Dose: 15 mg Allergies Allergy/AdvReac Type Severity Reaction Status Date / Time Tetanus Vaccines and Toxoid Allergy Severe Fever Verified 07/09/18 15:05 amoxicillin AdvReac Mild Nausea/Vomi Verified 07/09/18 15:05 ting Home Medications Medication Instructions Recorded Confirmed Type amlodipine 10 mg PO DAILY 07/09/18 07/09/18 History bicalutamide 50 mg PO DAILY 07/09/18 07/09/18 History calcium acetate 667 mg PO TID 07/09/18 07/09/18 History leuprolide (3month)-norethind 1 dose DIRECTED 07/09/18 07/09/18 History rifampin 300 mg PO Q12H 07/09/18 07/09/18 History tamsulosin [Flomax] 0.4 mg PO DAILY 07/09/18 07/09/18 History Exam Vital signs: Vital Signs 07/09/18 17:26 07/09/18 20:00 10/22/18 00:00 Temperature 99.3 F 99.7 F H Pulse Rate 73 76 74 Respiratory Rate 16 18 18 Blood Pressure 151/67 H 169/77 H 131/58 L Pulse Oximetry 99 94 L 90 L 07/10/18 04:00 07/10/18 08:00 07/10/18 11:57 Temperature 99.8 F H 100.7 F H 99.7 F H Pulse Rate 77 80 Respiratory Rate 18 18 Blood Pressure 149/65 H 149/68 H Pulse Oximetry 93 L 93 L 07/10/18 13:41 Temperature Pulse Rate 85 Respiratory Rate 16 Blood Pressure Pulse Oximetry 95 Intake & Output 07/09/18 07/10/18 07/10/18 18:59 06:59 18:59 Intake Total 240 / 240 480 / 480 Output Total 400 / 400 Balance 240 / 240 80 / 80 Weight 80 kg 80 kg Intake: Oral 240 / 240 480 / 480 Output: Urine 400 / 400 Narrative: GENERAL: Well-nourished, well-developed pale appearing patient. SKIN: Warm and dry. HEAD: Normocephalic. EYES: No scleral icterus. No injection or drainage. NECK: Supple, trachea midline. No JVD or lymphadenopathy. CARDIOVASCULAR: Regular rate and rhythm without murmurs, gallops, or rubs. RESPIRATORY: Breath sounds equal bilaterally. No accessory muscle use. GASTROINTESTINAL: Abdomen soft, non-tender, nondistended. EXTREMITIES: 1+ edema. NEUROLOGICAL: Awake, alert, and oriented x 3. Non-focal. Results - Lab Results 07/10/18 12:56 07/10/18 12:56 Most recent lab results Calcium 7.2 mg/dL (8.5-10.1) L* 07/10/18 12:56 Assessment and Plan - Assessment (1) End stage renal disease Code(s): N18.6 - End stage renal disease Status: Acute (2) Anemia Code(s): D64.9 - Anemia, unspecified Status: Acute (3) Joint pain Code(s): M25.50 - Pain in unspecified joint Status: Acute (4) Dyspnea Code(s): R06.00 - Dyspnea, unspecified Status: Acute - Plan Patient agreed to having blood transfusion, including increased to 10,000 units with each dialysis Patient is having bone pain related to prostate cancer He stated that he discontinued Lupron and a new form of chemotherapy was given Continue to provide hemodialysis on Tuesday, Tuesday and Tuesday Continue with pain management, he is on Dilaudid as needed (2) Anemia Qualifiers: Anemia type: due to chronic kidney disease Chronic kidney disease stage: on chronic dialysis Qualified Code(s): N18.6 - End stage renal disease; D63.1 - Anemia in chronic kidney disease; Z99.2 - Dependence on renal dialysis (3) Joint pain Qualifiers: Joint pain location: unspecified Qualified Code(s): M25.50 - Pain in unspecified joint (4) Dyspnea Qualifiers: Dyspnea type: shortness of breath Qualified Code(s): R06.02 - Shortness of breath; R06.00 - Dyspnea, unspecified; R06.01 - Orthopnea
--- NOTE | 2018-07-10 16:31 | ECG ---
Date Performed: 07/09/2018 Time Performed: 20:55:21 PTAGE: 63 years EKG: Sinus rhythm BORDERLINE LEFT AXIS DEVIATION LEFT VENTRICULAR HYPERTROPHY AND ST-T CHANGE Since the previous gardenia ng, no significant change noted ABNORMAL ECG PREVIOUS TRACING : 07/09/2018 14.59 DOCTOR: Poonam Rasmussen Interpretating Date/Time 07/10/2018 16:29:55
--- NOTE | 2018-07-10 16:31 | ECG ---
Date Performed: 07/10/2018 Time Performed: 02:49:55 PTAGE: 63 years EKG: Sinus rhythm BORDERLINE LEFT AXIS DEVIATION ST DEVIATION AND MODERATE T-WAVE ABNORMALITY, CONSIDER ANTEROLATERAL ISCHEMIA Patient has criteria fo rleft ventricular hypertrophy and that likely explcins lateral ST s egment changes which are similar to previous tracings. ABNORMAL ECG PREVIOUS TRACING : 07/09/2018 20.55 Since the previous tracing, no significant change noted DOCTOR: Poonam Rasmussen Interpretating Date/Time 07/10/2018 17:34:30
--- NOTE | 2018-07-10 17:34 | ECG ---
Date Performed: 07/09/2018 Time Performed: 14:59:39 PTAGE: 63 years EKG: Sinus rhythm BORDERLINE LEFT AXIS DEVIATION LEFT VENTRICULAR HYPERTROPHY AND ST-T CHANGE Since the previous gardenia ng, no significant change noted ABNORMAL ECG PREVIOUS TRACING : 03/20/2017 16.21 DOCTOR: Poonam Rasmussen Interpretating Date/Time 07/10/2018 17:33:19
[2018-07-10] MEDS: Temazepam 15 MG Capsule PO PRN (20:50)
[2018-07-10] MEDS: HYDROmorphone PF Inj 2 MG/ML Vial IV.PUSH PRN (20:51)
[2018-07-11] MEDS: MethylPREDNISolone Sod Succinate Inj 40 MG/ML Vial IV.PUSH SCH ×4 (04:35→20:19)
[2018-07-11 06:23] LABS: Baso # (Auto) 0.7 th/mm3 (0.0-0.2); Baso % (Auto) 4.7 % (0.0-2.0); Eos % (Auto) 0.1 % (0.0-4.0); Hematocrit 28.2 % (39.0-51.0); Hemoglobin 8.9 gm/dL (13.0-17.0); Lymph % (Auto) 26.2 % (9.0-44.0); Mean Corpuscular HGB Conc 31.4 % (32.0-36.0); Mean Corpuscular Hemoglobin 28.2 pg (27.0-34.0); Mean Corpuscular Volume 89.6 fL (80.0-100.0); Mono # (Auto) 0.4 th/mm3 (0.0-0.9); Mono % (Auto) 2.5 % (0.0-8.0); Neut % (Auto) 66.5 % (16.0-70.0); Platelet Count 183 th/mm3 (150-450); Red Blood Count 3.15 mil/mm3 (4.50-5.90); Red Cell Distribution Width 16.5 % (11.6-17.2); White Blood Count 15.1 th/mm3 (4.0-11.0)
[2018-07-11 06:35] LABS: Potassium 3.9 meq/L (3.5-5.1)
[2018-07-11 06:54] LABS: Calcium 7.3 mg/dL (8.5-10.1); Carbon Dioxide 28.4 meq/L (21.0-32.0)
[2018-07-11 07:09] LABS: Total Protein 6.4 g/dL (6.4-8.2)
[2018-07-11] MEDS: Azithromycin 250 MG Tablet PO SCH (08:10)
[2018-07-11] MEDS: Calcium Acetate 667 MG Capsule PO SCH ×3 (08:11→17:20)
[2018-07-11] MEDS: amLODIPine 10 MG Tablet PO SCH (08:12)
[2018-07-11 14:08] LABS: Alkaline Phosphatase 974 U/L (45-117); Ferritin 6599 ng/mL (26-388)
--- NOTE | 2018-07-11 16:28 | P.PN ---
Subjective Interval history: 63-year-old male with known history of prostate cancer is being followed up on for anemia. Patient resting very carefully. Patient is very eager to go home. Patient denies any new complaints. Vital signs are stable. Patient remains afebrile Physical Exam Vital signs: Vital Signs 07/10/18 17:31 07/10/18 20:00 07/10/18 20:28 Temperature 99.5 F 97.3 F L Pulse Rate 78 79 Respiratory Rate 16 20 Blood Pressure 158/75 H 149/70 H Pulse Oximetry 92 L 93 L 07/11/18 00:00 07/11/18 08:55 07/11/18 12:38 Temperature 96.7 F L 97.4 F L Pulse Rate 64 66 65 Respiratory Rate 18 18 16 Blood Pressure 170/82 H 143/65 H 149/70 H Pulse Oximetry 93 L 92 L 95 07/11/18 14:43 Temperature Pulse Rate Respiratory Rate Blood Pressure Pulse Oximetry 93 L Intake & Output 07/10/18 07/11/18 07/11/18 18:59 06:59 18:59 Intake Total 500 / 500 1365 / 1365 100 / 100 Output Total 1500 / 1500 300 / 300 Balance -1000 / -1000 1065 / 1065 100 / 100 Weight 80.4 kg Intake: IV 100 / 100 1000 / 1000 100 / 100 Rocephin Inj 1,000 MG In NS Inj 100 / 100 100 / 100 100 ML @ 200 mls/hr IV.SIG Q24H CYNDIE Rx#:[id number] NS Inj 1,000 ML @ As Directed 1000 / 1000 OTHER .Q0M PRN Rx#:[id number] Oral 365 / 365 Intake (Blood Product) Amt 400 / 400 Rbc As-3 Leukoreduced Unit 400 / 400 [id number] Output: Urine 300 / 300 Hemodialysis Amount 1500 / 1500 Narrative: GENERAL: Well-developed, well-nourished, in no acute distress. alert and orientated HEENT: Head is normocephalic without any lesions or masses noted. Facial features are symmetric. Eyes: Extraocular muscles are intact. Conjunctivae were clear. NECK: Supple without any masses. Trachea midline no deviation. No JVD, CARDIAC: Regular rhythm, regular rate. S1/S2 are heard. No murmurs gallops or rubs. LUNGS: Clear to auscultation bilaterally. No wheeze, rhonchi or rales. No use of accessory muscles on inspiration or expiration. ABDOMEN: Soft, nontender. Nondistended. Bowel sounds heard in all 4 quadrants. No organomegaly or masses. Negative rebound, negative guarding EXTREMITIES: No edema, pulses are equal bilaterally. No cyanosis or clubbing NEUROLOGY: Mood and affect appear appropriate. Cranial nerves II through XII grossly intact. Moving all extremities, speech is clear Results - Labs CBC & Chem 7: 07/11/18 05:10 07/12/18 05:06 Laboratory Results - last 24 hr 07/09/18 07/11/18 07/11/18 15:15 05:10 05:10 CBC w Diff Auto diff final WBC 15.1 H RBC 3.15 L Hgb 8.9 L Hct 28.2 L MCV 89.6 MCH 28.2 MCHC 31.4 L RDW 16.5 Plt Count 183 MPV 8.0 Neut % (Auto) 66.5 Lymph % (Auto) 26.2 [facility] [facility] % (Auto) 2.5 Eos % (Auto) 0.1 Baso % (Auto) 4.7 H Neut # (Auto) 10.0 H Lymph # (Auto) 4.0 [facility] [place] [facility] # (Auto) 0.4 Eos # (Auto) 0.0 Baso # (Auto) 0.7 H WBC Differential . Differential Comment . Sodium 138 Potassium 3.9 Chloride 100 Carbon Dioxide 28.4 Anion Gap 10 BUN 28 H Creatinine 3.90 H Estimated GFR 16 L Random Glucose 213 H Calcium 7.3 L* Prot Corrected Calcium 7.7 L Ferritin Alkaline Phosphatase Total Protein 6.4 Prostate Specific Ag Blood Type O Negative Antibody Screen Negative MTS Gel Crossmatch See Detail 07/11/18 07/11/18 05:10 05:10 CBC w Diff WBC RBC Hgb Hct MCV MCH MCHC RDW Plt Count MPV Neut % (Auto) Lymph % (Auto) [facility] % (Auto) Eos % (Auto) Baso % (Auto) Neut # (Auto) Lymph # (Auto) [facility] # (Auto) Eos # (Auto) Baso # (Auto) WBC Differential Differential Comment Sodium Potassium Chloride Carbon Dioxide Anion Gap BUN Creatinine Estimated GFR Random Glucose Calcium Prot Corrected Calcium Ferritin 6599 H Alkaline Phosphatase 974 H Total Protein Prostate Specific Ag 190.68 H Blood Type Antibody Screen MTS Gel Crossmatch Microbiology 07/10/18 14:10 Clean Catch Urine Urine Culture - Final 10-50,000 cfu/mL mixed gram positive leonora (probable contaminants) 07/10/18 13:07 Blood - Peripheral Aerobic Blood Culture - Preliminary No growth in 1 day 07/10/18 13:07 Blood - Peripheral Anaerobic Blood Culture - Preliminary No growth in 1 day 07/10/18 12:56 Blood - Peripheral Aerobic Blood Culture - Preliminary No growth in 1 day 07/10/18 12:56 Blood - Peripheral Anaerobic Blood Culture - Preliminary No growth in 1 day Assessment and Plan - Assessment (1) Anemia Code(s): D64.9 - Anemia, unspecified Status: Acute (2) Joint pain Code(s): M25.50 - Pain in unspecified joint Status: Acute (3) Dyspnea Code(s): R06.00 - Dyspnea, unspecified Status: Acute - Plan Symptomatic anemia suspect with shortness of breath and dyspnea -secondary to end-stage renal disease -Patient is getting Epogen in the outpatient setting during dialysis -Patient did get 1 pack unit of red blood cells during dialysis yesterday with significant improvement of his anemia -Iron studies were performed with significant ferritin elevation Shortness of breath and dyspnea -Symptoms could be secondary to symptomatic anemia, however chest x-ray does indicate possible moderate left lung base airspace and authorization presumably atelectasis -Patient was empirically started on Rocephin, Zithromax, Solu-Medrol, albuterol End-stage renal disease on dialysis -Nephrology consulted for recommendations -Patient continued on dialysis Mondays, Wednesdays and Fridays -Patient continued on PhosLo Elevated alkaline phosphatase -Patient did present with joint pain, bilateral knees, hip x-ray -Concern for metastatic disease, -Patient is followed by Dr. Fine for urology, he is receiving Lupron injections, he is on Casodex 50 mg daily -PSA has significantly worsened. Dr. Fine indicates that he originally started with PSAs in the 80s, he was down to 2.47 now he is up to 190 -Dr. Fine requesting that oncology evaluate the patient for further recommendations Leukocytosis -Worsening secondary to use of Solu-Medrol Elevated troponin -Troponin 0.09 on presentation. Serial troponins neg. -Denies any chest pain. Continue on cardiac tele, monitor for any arrhythmias. -CXR as above. DVT prophylaxis: -Sequential compression devices (1) Anemia Qualifiers: Anemia type: due to chronic kidney disease Chronic kidney disease stage: on chronic dialysis Qualified Code(s): N18.6 - End stage renal disease; D63.1 - Anemia in chronic kidney disease; Z99.2 - Dependence on renal dialysis (2) Joint pain Qualifiers: Joint pain location: unspecified Qualified Code(s): M25.50 - Pain in unspecified joint (3) Dyspnea Qualifiers: Dyspnea type: shortness of breath Qualified Code(s): R06.02 - Shortness of breath; R06.00 - Dyspnea, unspecified; R06.01 - Orthopnea
--- NOTE | 2018-07-11 17:41 | P.PNNP ---
Subjective Interval history: Patient complain of left hip pain and left knee pain Physical Exam Vital signs: Vital Signs 07/10/18 20:00 07/10/18 20:28 07/11/18 00:00 Temperature 97.3 F L 96.7 F L Pulse Rate 79 64 Respiratory Rate 20 18 Blood Pressure 149/70 H 170/82 H Pulse Oximetry 92 L 93 L 93 L 07/11/18 08:55 07/11/18 12:38 07/11/18 14:43 Temperature 97.4 F L Pulse Rate 66 65 Respiratory Rate 18 16 Blood Pressure 143/65 H 149/70 H Pulse Oximetry 92 L 95 93 L Intake & Output 07/10/18 07/11/18 07/11/18 18:59 06:59 18:59 Intake Total 500 / 500 1365 / 1365 100 / 100 Output Total 1500 / 1500 300 / 300 Balance -1000 / -1000 1065 / 1065 100 / 100 Weight 80.4 kg Intake: IV 100 / 100 1000 / 1000 100 / 100 Rocephin Inj 1,000 MG In NS Inj 100 / 100 100 / 100 100 ML @ 200 mls/hr IV.SIG Q24H CYNDIE Rx#:[id number] NS Inj 1,000 ML @ As Directed 1000 / 1000 OTHER .Q0M PRN Rx#:[id number] Oral 365 / 365 Intake (Blood Product) Amt 400 / 400 Rbc As-3 Leukoreduced Unit 400 / 400 [id number] Output: Urine 300 / 300 Hemodialysis Amount 1500 / 1500 Narrative: GENERAL: Well-developed, well-nourished, in no acute distress. alert and orientated HEENT: Head is normocephalic without any lesions or masses noted. Facial features are symmetric. Eyes: Extraocular muscles are intact. Conjunctivae were clear. NECK: Supple without any masses. Trachea midline no deviation. No JVD, CARDIAC: Regular rhythm, regular rate. S1/S2 are heard. No murmurs gallops or rubs. LUNGS: Clear to auscultation bilaterally. No wheeze, rhonchi or rales. No use of accessory muscles on inspiration or expiration. ABDOMEN: Soft, nontender. Nondistended. Bowel sounds heard in all 4 quadrants. No organomegaly or masses. Negative rebound, negative guarding EXTREMITIES: No edema, pulses are equal bilaterally. No cyanosis or clubbing NEUROLOGY: Mood and affect appear appropriate. Cranial nerves II through XII grossly intact. Moving all extremities, speech is clear Assessment and Plan - Assessment (1) End stage renal disease Code(s): N18.6 - End stage renal disease Status: Acute (2) Anemia Code(s): D64.9 - Anemia, unspecified Status: Acute Qualifiers: Anemia type: due to chronic kidney disease Chronic kidney disease stage: on chronic dialysis Qualified Code(s): N18.6 - End stage renal disease; D63.1 - Anemia in chronic kidney disease; Z99.2 - Dependence on renal dialysis (3) Joint pain Code(s): M25.50 - Pain in unspecified joint Status: Acute Qualifiers: Joint pain location: unspecified Qualified Code(s): M25.50 - Pain in unspecified joint (4) Dyspnea Code(s): R06.00 - Dyspnea, unspecified Status: Acute Qualifiers: Dyspnea type: shortness of breath Qualified Code(s): R06.02 - Shortness of breath; R06.00 - Dyspnea, unspecified; R06.01 - Orthopnea - Plan Patient agreed to having blood transfusion, including increased to 10,000 units with each dialysis Patient is having bone pain related to prostate cancer, PSA 190.68 Oncology consulted he has metastatic prostate cancer prognosis is poor Patient did receive Lupron in the past Next hemodialysis is tomorrow
[2018-07-11] MEDS: Heparin - SQ 10,000 UNITS/ML Vial SQ SCH (20:19)
[2018-07-11] MEDS: HYDROmorphone PF Inj 2 MG/ML Vial IV.PUSH PRN (20:19)
--- NOTE | 2018-07-11 21:42 | MB ---
cc: Susan Garcia MD, Matthew J PA DATE: 07/11/2018 REFERRING PHYSICIAN: PEGGY Hardy CHIEF COMPLAINT: PEGGY Zhou, requests a consultation for Mr. Ross regarding metastatic prostate cancer. HISTORY OF PRESENT ILLNESS: Mr. Ross is a 63-year-old man, a well known patient to my partner, Dr. Dakota Arceo, for inpatient consultation back in 03/2017. He presented with shortness of breath on exertion and was found to have significant anemia and renal insufficiency. Workup included a PSA that was elevated. His PSA was 60.37 on 05/26/2017. A biopsy of the left ilium showed metastatic carcinoma consistent with a prostate primary. He progressed to develop acute renal failure and he is currently on hemodialysis. He is dialyzed by Dr. Duval through a Perm-A-Cath in the right chest wall. Left arm AV fistula is healing. He presented with acute renal failure. He was under the care of Dr. Zion Fine, who performed a left ureterocystoscopy and placement of left double-J stent. He had gross hematuria and clot retention and chronic renal failure. Ultimately, he developed end-stage renal disease for which he is on hemodialysis through a right chest wall Perm-A-Cath. He has an AV fistula on the left arm which is not yet used. He is on hemodialysis 3 times a week. He reports some residual renal function as he drinks water. He skips dialysis sometimes. For his prostate cancer, a bone scan was performed on 06/07/2017 that showed widespread metastatic disease. He reports a bad outcome with his bone scan and refuses to do additional bone scans in the future. He does not recall any other staging evaluation. He has never been to see Dr. Arceo on an outpatient basis. He is under the care of Dr. Fine for his prostate cancer. He has received Lupron and Casodex for the past year. He appeared to have responded well with magdiel of his PSA to a normal range in the early part of the year. On admission, his PSA is 190. He reports that his PSA had increased and he has not been feeling well over the last several weeks. He had a bioequivalent replacement to the Lupron because of cough. He does not know the new medication. Nevertheless, he had more problems during the injection of the new LHRH agonist. The Casodex continues without interruption. He came into the emergency room with increasing shortness of breath the last 5 days. He has been quite sedentary. He has had progressive shortness of breath to the point that he was short of breath at night. He complains of palpitations. His chest x-ray showed cardiomegaly with mild fluid balance. There is moderate right lung base airspace consolidation. He feels sinus congestion that went to his chest. He started to feel better after the antibiotic therapy. He has chronic leg swelling due to trauma. His left leg is more prominent than the right. He had some swelling that went down after his dialysis. He denies any headaches. No vision changes. PAST MEDICAL HISTORY: 1. Metastatic prostate cancer with bony metastatic disease. 2. History of gross hematuria and end-stage renal disease, currently on hemodialysis. 3. Chronic anemia. 4. Osteoarthritic symptoms. PAST SURGICAL HISTORY: 1. Perm-A-Cath placement. 2. Left arm AV fistula. 3. CT-guided bone biopsy. FAMILY HISTORY: Mother in her late 60s of complications of pneumonia. Father of a stroke in his early 70s. There is a maternal grandfather with prostate cancer. SOCIAL HISTORY: He is . He is friendly with his . He names his adult children as his healthcare surrogate. His youngest son has Down syndrome and lives with his mother. He smokes half a pack a day. He quit drinking previously. He denies any illicit drug use. He lives alone. PHYSICAL EXAMINATION: VITAL SIGNS: Temperature 97.9, heart rate 63, respiratory rate 16, blood pressure 145/69, saturation 95%. GENERAL: Mr. Ross is a well-developed, well-nourished man who looks his stated age. HEENT: His pupils are round and reactive to light and accommodation. Oropharynx is clear. NECK: Supple. LUNGS: Clear anteriorly. CARDIOVASCULAR: Reveals a normal rate and rhythm. ABDOMEN: Benign. There is a pellet from the GnRH agonist. EXTREMITIES: Lower extremities with asymmetry with the left calf more prominent than the right. LABORATORY DATA: Significant for anemia with a hemoglobin of 8.9. WBC is 15.1. Platelet count is normal. Chemistry: BUN 28, creatinine 3.9. Ferritin is significantly elevated at 6599. PSA 190. ASSESSMENT AND PLAN: Mr. Ross is a 63-year-old man with metastatic prostate cancer. From evaluation previously, he had bone metastatic disease without a soft tissue component. We discussed his treatment for prostate cancer so far. It appears that he has had an evaluation and treatment with hormonal therapy for his prostate cancer. He appears to have high-risk disease. He has never received chemotherapy. He has not followed up with medical oncology. We discussed following up with Dr. Arceo tomorrow. He is known to Dr. Arceo. We can discuss options for therapy beyond GnRH/LHRH agonists with Casodex. He appears to have progressed from an initial response to hormonal therapy. His hemodialysis will continue as per nephrology. He appears to be responding well to a pulmonary infiltrate that is causing his shortness of breath. Venous thromboembolic event will be excluded. Doppler ultrasound of the lower extremities will be performed to rule out a deep venous thrombosis. Unfractionated heparin will be administered. His questions were answered to his satisfaction. We discussed in general terms various other therapies that are beneficial in patients with metastatic prostate cancer. We discussed the goal of therapy is palliative. MD CATHIE Rogers/boris , 07:14 PM , 07:31 PM
[2018-07-12] MEDS: MethylPREDNISolone Sod Succinate Inj 40 MG/ML Vial IV.PUSH SCH ×2 (03:30→11:42)
[2018-07-12 06:51] LABS: Potassium 4.2 meq/L (3.5-5.1)
[2018-07-12 07:06] LABS: Calcium 7.2 mg/dL (8.5-10.1); Carbon Dioxide 25.5 meq/L (21.0-32.0)
[2018-07-12 07:28] LABS: Total Protein 6.1 g/dL (6.4-8.2)
[2018-07-12] MEDS: Heparin 10,000 UNITS/10 ML Vial (for IV use) OTHER PRN (08:33)
[2018-07-12] MEDS: amLODIPine 10 MG Tablet PO SCH (11:43)
[2018-07-12] MEDS: Heparin - SQ 10,000 UNITS/ML Vial SQ SCH (11:43)
[2018-07-12] MEDS: Azithromycin 250 MG Tablet PO SCH (11:43)
[2018-07-12] MEDS: Calcium Acetate 667 MG Capsule PO SCH (11:44)
--- NOTE | 2018-07-12 11:49 | P.DS ---
Date of admission: 07/09/18 16:54 Primary care physician: No Primary Care Physician Attending physician on discharge: Apollorosaline Agustin Anticipated date of discharge: 07/12/18 Brief History from admission: This is a very pleasant 63-year-old male patient with a known medical history of end-stage renal disease, prostate cancer currently undergoing chemotherapy, hypertension who presented to the ED with complaints of shortness of breath as well as fatigue x 1 week. Patient states that he saw his PCP couple weeks ago was prescribed amoxicillin for a sinus infection and since that time he states he has been having nausea and not feeling himself. It should also be noted that patient has been having increasing knee and hip pain over the past couple weeks. Patient denies any diarrhea or vomiting he states that he has been increasingly short of breath and fatigued especially with exertion over the past week. He also notices that he is looking more pale and suspected he was anemic. Patient does have end-stage renal disease, undergoes dialysis at [facility] , was follow-up with Dr. Duval, receives dialysis on Tuesday, Tuesday and Fridays. Patient also is undergoing chemotherapy with Dr. Fine, urology, he receives a monthly dose of chemo and has been undergoing treatment for the last 14 months. His last chemotherapy was a month ago. Patient just underwent AV fistula surgery, states that this has not been used yet and he just got approval for use now. He presents with a right chest port. At the time of assessment patient is on 2 L nasal cannula, lying in bed comfortably no apparent distress. Leukocytosis noted on blood work as well as anemia with hemoglobin of 7.4. Patient denies any recent bloody or black stools. DS: Diagnosis - Discharge Diagnosis (1) Anemia Status: Acute (2) Joint pain Status: Acute (3) Dyspnea Status: Acute DS: Medications - Discharge Medications Prescriptions: hydrocodone-acetaminophen [[place]] 1 tab PO Q6H PRN #12 tab PRN Reason: Acute Pain temazepam 15 mg PO HS PRN 12 Days cap PRN Reason: Insomnia DS: Summary Hospital Course: 63-year-old male with known history of metastatic prostate cancer who presented to hospital because of weakness, shortness of breath, dyspnea, joint pain. Patient had workup done emergency department and found to have anemia, significantly elevated alkaline Echo which could be concerning for metastasis, the patient initially declined admission but after speaking with the ER physician it was agreed that he would come to the hospital for evaluation. Patient did have extensive workup performed with chest x-ray which did indicate some left lung basilar airspace disease which could represent atelectasis. He was started empirically on antibiotics with Rocephin, Zithromax. Patient was started on nebulizer treatments, Solu-Medrol. In light of the patient's anemia. Patient does have end-stage renal disease undergoing dialysis. There is permacath in place in the right anterior chest. Patient has been given Epogen in outpatient setting to try to maintain his hemoglobin. Patient did undergo dialysis while he is here in the blood with significant improvement of his energy level, respiratory status. In reference to the patient's bone pain which is likely due to metastasis. Patient did have significant elevated alkaline phosphatase. It was discussed with the patient's urologist Dr. Fine that he has significantly elevated PSA level at 190. This is concerning to the urologist because the patient originally started with a PSA level of 80 and is gone down to 2.47. He recommended that patient get evaluation done by oncologist. Patient had been followed by Dr Moore in the past. The patient has not had any particular follow-up. The patient was relying completely on the urologist to manage his cancer because the patient states that he does not want any significantly aggressive measures to be taken. Patient states that he was on Lupron and Casodex which he was taken appropriately. Oncology was consulted who did evaluate the patient and recommend patient should follow-up with Dr Moore in outpatient setting upon discharge. Patient clinically stable at this time. He is no longer experiencing shortness of breath or dyspnea. Patient is aware of the worsening of his metastatic cancer. He was notified he needs to follow-up with oncologist upon discharge. He does understand. Patient clinically stable at this time. We will plan discharge accordingly. Discussed with oncology who indicated the patient can be discharged with outpatient follow-up with Dr Moore - Time Spent with Patient Total time spent providing and/or coordinating discharge services: Greater than 30 minutes - Quality: VTE Deep Vein Thrombosis/Pulmonary Embolism Present on Admission: No Exam Vital signs: Vital Signs 07/11/18 12:38 07/11/18 14:43 07/11/18 18:09 Temperature 97.4 F L 97.9 F Pulse Rate 65 63 Respiratory Rate 16 16 Blood Pressure 149/70 H 145/69 H Pulse Oximetry 95 93 L 95 07/11/18 20:00 07/11/18 20:25 07/12/18 00:00 Temperature 97.2 F L 96.5 F L Pulse Rate 66 63 Respiratory Rate 18 18 Blood Pressure 160/73 H 145/69 H Pulse Oximetry 97 93 L 95 Intake & Output 07/11/18 07/12/18 07/12/18 18:59 06:59 18:59 Intake Total 1100 / 1100 450 / 450 Output Total 500 / 500 1600 / 1600 Balance 1100 / 1100 -50 / -50 -1600 / -1600 Weight 81.6 kg Intake: IV 100 / 100 Rocephin Inj 1,000 MG In NS Inj 100 / 100 100 ML @ 200 mls/hr IV.SIG Q24H CYNDIE Rx#:[id number] Oral 1000 / 1000 450 / 450 Output: Urine 500 / 500 Hemodialysis Amount 1600 / 1600 Other: # Voids 5 # Bowel Movements 1 Narrative: GENERAL: Well-developed, well-nourished, in no acute distress. alert and orientated HEENT: Head is normocephalic without any lesions or masses noted. Facial features are symmetric. Eyes: Extraocular muscles are intact. Conjunctivae were clear. NECK: Supple without any masses. Trachea midline no deviation. No JVD, CARDIAC: Regular rhythm, regular rate. S1/S2 are heard. No murmurs gallops or rubs. LUNGS: Clear to auscultation bilaterally. No wheeze, rhonchi or rales. No use of accessory muscles on inspiration or expiration. ABDOMEN: Soft, nontender. Nondistended. Bowel sounds heard in all 4 quadrants. No organomegaly or masses. Negative rebound, negative guarding EXTREMITIES: No edema, pulses are equal bilaterally. No cyanosis or clubbing NEUROLOGY: Mood and affect appear appropriate. Cranial nerves II through XII grossly intact. Moving all extremities, speech is clear Results Procedures completed during hospitalization: none Labs on day of discharge: Labs from last 24 hours 07/12/18 07/12/18 07/11/18 05:06 05:06 05:10 Sodium 137 Potassium 4.2 Chloride 99 Carbon Dioxide 25.5 Anion Gap 13 BUN 46 H Creatinine 4.80 H Estimated GFR 12 L Random Glucose 178 H Calcium 7.2 L* Prot Corrected Calcium 7.7 L Ferritin 6599 H Alkaline Phosphatase 974 H Total Protein 6.1 L Prostate Specific Ag Total Testosterone Pending 07/11/18 05:10 Sodium Potassium Chloride Carbon Dioxide Anion Gap BUN Creatinine Estimated GFR Random Glucose Calcium Prot Corrected Calcium Ferritin Alkaline Phosphatase Total Protein Prostate Specific Ag 190.68 H Total Testosterone Preliminary micro results at discharge 07/10/18 13:07 Aerobic Blood Culture - Preliminary Blood - Peripheral No growth in 2 days Anaerobic Blood Culture - Preliminary No growth in 2 days 07/10/18 12:56 Aerobic Blood Culture - Preliminary Blood - Peripheral No growth in 2 days Anaerobic Blood Culture - Preliminary No growth in 2 days - Impressions ITS Impressions Chest X-Ray 07/09/18 15:11 CONCLUSION: 1. Cardiomegaly with mild positive fluid balance. 2. Minimal right and moderate left lung base airspace consolidation, presumably atelectasis. Hip X-Ray 07/09/18 15:16 CONCLUSION: 1. Moderate to severe degenerative osteoarthritis. Knee X-Ray 07/09/18 15:16 CONCLUSION: 1. Mild degenerative osteoarthritis. 2. Extensive vascular calcifications. Discharge Plan - Discharge Disposition Patient Disposition: Discharge Home - Discharge Condition Condition: Stable - Discharge Details Anticipated Discharge Date: 07/12/18 - Physicians Team Primary Care Provider: Primary Care Bhavani Yip Attending Provider: Cinthia Velez Other Providers: Karena Duval MD ; Susan Garcia MD ; Dakota Arceo MD
--- NOTE | 2018-07-12 14:10 | US ---
EXAM DATE: 07/12/2018 12:00 AM EDT AGE/SEX: 63 years / Male INDICATIONS: Swelling. CLINICAL DATA: This is the patient's initial encounter. Patient reports that signs and symptoms have been present for 1 week and indicates a pain score of 0/10. MEDICAL/SURGICAL HISTORY: Renal failure, acute. Anemia. Hypertension. Sepsis. Prostate canc er. Renal stone. Fistula. Dyspnea. . Orthopedic surgery. COMPARISON: [facility], US LEG BILATERAL VENOUS DOPPLER, 03/20/2017. . TECHNIQUE: Venous ultrasound of both lower extremities was performed from the inguinal ligament to t he proximal calf. Real-time, color Doppler and spectral tracing, compression and augmentation techni ques were used. FINDINGS: Right Leg: Normal compression of the deep venous system from the inguinal region to the proximal dora f. No echogenic clot is seen. Normal response of the venous system to augmentation and respiration. Left Leg: Normal compression of the deep venous system from the inguinal region to the proximal calf . No echogenic clot is seen. Normal response of the venous system to augmentation and respiration. Other: None. CONCLUSION: 1. The study is negative for bilateral lower extremity deep venous thrombosis. Electronically signed by: Ferdinand Fisher MD 07/12/2018 2:09 PM EDT
== END 2018-07-12 15:25 | disposition home or self-care (01) ==
LOC: PHED 14:53 → PHEDA 14:53 → PH3 17:53
PROVIDERS: ADMIT Internal Medicine; ATTEND Internal Medicine
DX: C61 Malignant neoplasm of prostate; Z80.42 Family history of malignant neoplasm of prostate; M19.90 Unspecified osteoarthritis, unspecified site; I13.11 Hypertensive heart and chronic kidney disease without heart failure, with stage 5 chronic kidney disease, or end stage renal disease; N17.9 Acute kidney failure, unspecified; R31.0 Gross hematuria; Z82.3 Family history of stroke; Z99.2 Dependence on renal dialysis; R09.02 Hypoxemia; N18.6 End stage renal disease; F17.210 Nicotine dependence, cigarettes, uncomplicated; Z87.442 Personal history of urinary calculi; D63.1 Anemia in chronic kidney disease; Z79.899 Other long term (current) drug therapy; J98.11 Atelectasis; C79.51 Secondary malignant neoplasm of bone

== ENCOUNTER 2018-07-19 12:14 | Inpatient (IN) ==
[2018-07-19 13:46] LABS: Hematocrit 28.2 % (39.0-51.0); Hemoglobin 9.3 gm/dL (13.0-17.0); Mean Corpuscular HGB Conc 33.1 % (32.0-36.0); Mean Corpuscular Hemoglobin 29.2 pg (27.0-34.0); Mean Corpuscular Volume 88.1 fL (80.0-100.0); Mean Platelet Volume 7.8 fL (7.0-11.0); Platelet Count 206 th/mm3 (150-450); Red Cell Distribution Width 16.7 % (11.6-17.2); White Blood Count 18.8 th/mm3 (4.0-11.0)
[2018-07-19] MEDS ORDERED: Acetaminophen 325 MG Tablet PO ONE (13:56)
[2018-07-19 13:58] LABS: Chloride 100 meq/L (98-107); Potassium 3.6 meq/L (3.5-5.1); Sodium 133 meq/L (136-145)
[2018-07-19 14:01] LABS: Anion Gap 14 meq/L (5-15); Blood Urea Nitrogen 50 mg/dL (7-18); Calcium 7.7 mg/dL (8.5-10.1); Carbon Dioxide 19.1 meq/L (21.0-32.0); Glucose,Random 105 mg/dL (74-106)
[2018-07-19 14:05] LABS: Glomerular Filtration Rate 8 mL/min (>89)
--- NOTE | 2018-07-19 14:08 | ED ---
HPI General Chief complaint: Weakness Stated complaint: Lt hip/knee pain x 4 days Time Seen by Provider: 07/19/18 13:01 History of Present Illness HPI Narrative: This is a 63-year-old male with history of prostate cancer, anemia, renal failure, dialysis dependent, presents today with complaints of generalized weakness. Patient states that he was seen here last week for similar findings. He said at that time they found that he had a pneumonia and put him on antibiotics. Patient reports that he has been having pain in his left hip and left knee for several weeks now. He states that it started shortly after him being taken off of his Lupron and being put on an alternate medication. The patient denies feeling febrile was loaded to have a low-grade temperature here today. He denies any chills. He denies any productive cough. He denies any dysuria. Related Data Home Medications Medication Instructions Recorded Confirmed bicalutamide 50 mg PO HS 07/09/18 07/19/18 calcium acetate 667 mg PO TID 07/09/18 07/19/18 tamsulosin [Flomax] 0.4 mg PO DAILY 07/09/18 07/19/18 Previous Rx's Medication Instructions Recorded hydrocodone-acetaminophen [[place]] 1 tab PO Q6H PRN #12 tab 07/12/18 Allergies Allergy/AdvReac Type Severity Reaction Status Date / Time Tetanus Vaccines and Toxoid Allergy Severe Fever Verified 07/19/18 12:58 amoxicillin AdvReac Mild Nausea/Vomi Verified 07/19/18 12:58 ting Review of Systems ROS: all other systems reviewed are negative Constitutional Denies chills, Denies fever(s) and Reports weakness Eyes Reports system reviewed and no additional complaints, except as docu ENT Reports system reviewed and no additional complaints, except as docu Cardiovascular Reports system reviewed and no additional complaints, except as docu Respiratory Denies chest congestion, Denies cough and Denies dyspnea Gastrointestinal Denies abdominal pain, Denies nausea, Denies vomiting and Reports other ( Decreased appetite) Genitourinary Denies hematuria, Denies dysuria and Denies flank pain Musculoskeletal Denies back pain, Denies numbness, Denies tingling and Reports other (Left hip and left knee pain. This is chronic and not new.) Neurologic Denies dizziness, Denies headache(s) and Reports weakness (Generalized weakness) [facility] Social History Social History Substance History: Active Abuse Second Hand Smoke Exposure: No Smoking Status: Heavy tobacco smoker Tobacco Type: Cigarettes How Often Do You Have a Drink Containing Alcohol: 4 or more times a week Recent Travel in [facility] within the Last 8 Weeks: No Substance Abuse Detail Alcohol: Route Used Substance Abuse: By Mouth Reason for Use: Feels Good Immunization History Tetanus Immunization: Unsure Exam Narrative Exam Narrative: GENERAL: Well-developed well-nourished male in no acute respiratory distress. SKIN: Focused skin assessment warm/dry. HEAD: Atraumatic. Normocephalic. EYES: No scleral icterus. No injection or drainage. ENT: No nasal bleeding or discharge. Mucous membranes pink and dry. NECK: Trachea midline. Supple. CARDIOVASCULAR: Regular rate and rhythm. No murmur appreciated. RESPIRATORY: No accessory muscle use. Clear to auscultation. Breath sounds equal bilaterally. GASTROINTESTINAL: Abdomen soft, Thin, nondistended. No rebound or guarding. MUSCULOSKELETAL: No obvious deformities. No clubbing. No cyanosis. No edema. NEUROLOGICAL: Awake and alert. No obvious cranial nerve deficits. Motor grossly within normal limits. Normal speech. Course Initial Documented Vital Signs Temperature 100 F H 07/19/18 12:29 Pulse Rate 75 07/19/18 12:29 Respiratory Rate 16 07/19/18 12:29 Blood Pressure 144/69 H 07/19/18 12:29 Pulse Oximetry 98 07/19/18 12:29 Last Documented Vital Signs Temperature 100 F H 07/19/18 12:29 Pulse Rate 70 07/19/18 14:04 Respiratory Rate 20 07/19/18 14:04 Blood Pressure 162/65 H 07/19/18 14:04 Pulse Oximetry 98 07/19/18 14:04 Medical Decision Making MDM Narrative Medical decision making narrative: 63-year-old male with history of prostate cancer, presents today with complaints of diffuse weakness and left hip and knee pain. Patient was admitted to the hospital recently. He apparently has metastatic disease to the bone. He was unaware that when I discussed with him. The patient states that he has had low-grade fever as well. He reports that he has not gone to dialysis on Tuesday or today. He states he last had dialysis on Tuesday. He denies any productive cough. He denies any dysuria. He does report decreased urine output. He states he has been urinating less because he has been eating less. The patient is noted to be hemoconcentrated. His creatinine has also gone up to point since the of this month. He has been given 500 cc of fluid. His white blood cell count is elevated at 18,000. At this point his chest x-ray shows no evidence of infection. He had a low-grade temperature of 100 degrees here. Case was discussed with Suzy Santos, [facility] nurse practitioner working with Dr. Antoni Hollis. Plan will be for admission. He may likely benefit from a palliative care consult as well. Medical Screen Exam Complete: Yes Emergency Medical Condition: Yes Differential Diagnosis Differential Diagnosis: Metabolic derangement versus pneumonia versus cystitis versus neutropenia versus anemia Lab Data Result diagrams: 07/19/18 13:30 07/19/18 13:30 Lab Results 07/19/18 07/19/18 Range/Units 13:30 13:30 CBC w Diff Slide review pending WBC 18.8 H (4.0-11.0) th/mm3 RBC 3.20 L (4.50-5.90) mil/mm3 Hgb 9.3 L (13.0-17.0) gm/dL Hct 28.2 L (39.0-51.0) % MCV 88.1 (80.0-100.0) fL MCH 29.2 (27.0-34.0) pg MCHC 33.1 (32.0-36.0) % RDW 16.7 (11.6-17.2) % Plt Count 206 (150-450) th/mm3 MPV 7.8 (7.0-11.0) fL WBC Differential Manual diff final Seg Neuts % (Manual) 47 (16-70) % Band Neuts % (Manual) 3 (0-6) % Lymphocytes % (Manual) 37 (9-44) % Monocytes % (Manual) 11 H (0-8) % Eosinophils % (Manual) 1 (0-4) % Myelocytes % (Man) 1 H (0-0) % Abs Neuts (Manual) 9.6 H (1.8-7.7) th/mm3 Differential Comment . Platelet Estimate Normal (Normal) Platelet Morphology Normal (Normal) Sodium 133 L (136-145) meq/L Potassium 3.6 (3.5-5.1) meq/L Chloride 100 (98-107) meq/L Carbon Dioxide 19.1 L (21.0-32.0) meq/L Anion Gap 14 (5-15) meq/L BUN 50 H (7-18) mg/dL Creatinine 6.90 H (0.60-1.30) mg/dL Estimated GFR 8 L (>89) mL/min Random Glucose 105 (74-106) mg/dL Calcium 7.7 L (8.5-10.1) mg/dL Imaging Data Radiologist's impression: Chest X-Ray 07/19/18 13:02 CONCLUSION: Prominent cardiac silhouette Dialysis catheter Negative for acute process. Discharge Plan Discharge Disposition Patient Disposition: 30 Still Patient Discharge Details Diagnosis: Acute kidney injury superimposed on chronic kidney disease, Joint pain, Dehydration, Fever, Leukocytosis Physicians Team ED Provider: Lex Krueger Primary Care Provider: Primary Care Bhavani Yip Rxs /Orders / Referrals /Forms Prescriptions: No Action bicalutamide 50 mg Tablet 50 mg PO HS RF: 0 calcium acetate 667 mg Tablet 667 mg PO TID RF: 0 tamsulosin [Flomax] 0.4 mg Capsule 0.4 mg PO DAILY RF: 0 hydrocodone-acetaminophen [[place]] 5-325 mg Tablet 1 tab PO Q6H PRN (Reason: Acute Pain) Qty: 12 RF: 0 Discharge Interventions Interventions: Vital Signs Last Done: 07/19/18 14:04 Status ED Status: With Doctor
--- NOTE | 2018-07-19 14:14 | XR ---
EXAM DATE: 07/19/2018 1:58 PM EDT AGE/SEX: 63 years / Male INDICATIONS: . Fever. CLINICAL DATA: This is the patient's initial encounter. Patient reports that signs and symptoms have been present for 1 day and indicates a pain score of 0/10. MEDICAL/SURGICAL HISTORY: . Renal failure, acute. Anemia. Hypertension. Sepsis. Prostate cancer . Renal stone. Fistula. Dyspnea. . Orthopedic surgery. Infusaport. COMPARISON: [facility], CHEST 1V SINGLE AP, 07/09/2018. . FINDINGS: PA and lateral views of the chest demonstrate the lungs to be symmetrically aerated without evidence of mass, infiltrate or effusion. The heart is enlarged. Osseous catheter in good position.. Osseous s tructures are intact. CONCLUSION: Prominent cardiac silhouette Dialysis catheter Negative for acute process. Electronically signed by: Damien Peña MD 07/19/2018 2:13 PM EDT
[2018-07-19 14:33] LABS: Eosinophils 1 % (0-4); Lymphocytes 37 % (9-44); Monocytes 11 % (0-8); Myelocytes 1 % (0-0); Platelet Estimate Normal (Normal); Platelet Morphology Normal (Normal)
[2018-07-19] MEDS ORDERED: Bisacodyl 10 MG Supp RECTAL PRN (15:50)
[2018-07-19 16:00] LABS: Bilirubin,Urine Negative (Negative); Clarity,Urine Cloudy (Clear); Color,Urine Yellow (Yellw/Straw); Glucose,Urine (UA) Negative (Negative); Leukocyte Esterase,Urine Large (Negative); Nitrite,Urine Negative (Negative); PH,Urine 6.5 (5.0-8.5); Specific Gravity,Urine 1.015 (1.002-1.035); Urobilinogen,Urine 0.2 mg/dL (Less than 2)
[2018-07-19] MEDS ORDERED: Sodium Chlor 0.9% Inj 500 ML IV.SIG SCH (16:00)
--- NOTE | 2018-07-19 16:05 | P.HP ---
History of Present Illness Primary Care Physician: No Primary Care Physician Chief Complaint: Weakness History of Present Illness: This is a very pleasant 63-year-old male patient with a known medical history of end-stage renal disease, prostate cancer currently undergoing chemotherapy, hypertension who presented to the ED with generalized weakness and diarrhea. Patient was recently hospitalized on 07/09/18 for symptomatic anemia. He was given 1 unit PRBC as well as Epogen during dialysis treatments, and improved overall. During that same hospitalization he was diagnosed with pneumonia and completed a dose of Rocephin and Zithromax. Patient did have significant elevated alkaline phosphatase. It was discussed with the patient's urologist Dr. Fine at that time with a significantly elevated PSA level at 190 also noted. The patient originally started with a PSA level of 80. He recommended that patient get evaluation done by oncologist. Patient states that he was on Lupron and Casodex which he has taken appropriately. Oncology was consulted who did evaluate the patient and recommend patient should follow-up with Dr Moore in outpatient setting upon discharge. Patient did not have any time to follow up since discharge. Patient does also have end-stage renal disease, undergoes dialysis at [facility], follows with Dr. Duval, receives dialysis on Tuesday, Tuesday and Fridays, last treatment was on 07/14/18. Patient also underwent AV fistula surgery in the past two months and states that this has not been used yet. He presents with a right chest port which appears to be clean , dry and intact with no erythema or signs of infection. Leukocytosis noted on blood work, WBC of 18,000. It should also be noted that patient has been having increasing knee and hip pain over the past couple weeks that has been consistent. He has also developed diarrhea since discharge and thinks this is possibly related to the previous antibiotics. Last BM 3 hours ago. - Diagnosis (1) Diarrhea (2) End stage renal disease (3) Acute kidney injury superimposed on chronic kidney disease (4) Dehydration (5) Leukocytosis Review of Systems All other systems reviewed negative except as stated in HPI PMFSH - History History Provided By: Patient - Medical History Medical History: Medical History (Last Reviewed 07/19/18 @ 17:30 by Suzy Santos) Acute renal failure Acute renal failure on dialysis Anemia Dyspnea Fistula Hypertension Kidney stone Prostate CA Sepsis Vascular dialysis catheter in place - Surgical History Surgical History: Surgical History (Last Reviewed 07/19/18 @ 17:30 by Suzy Santos) H/O major orthopedic surgery - Family History Family History: Family History (Last Reviewed 07/19/18 @ 17:30 by Suzy Santos) Other Family history in first degree relatives is unremarkable Family history non-contributory - Social History I have reviewed the patient's Social History: Yes - Tobacco History Second Hand Smoke Exposure: No Tobacco Use In Past 30 Days: Yes Smoking Status: Heavy tobacco smoker Tobacco Type: Cigarettes - Alcohol History How Often Do You Have a Drink Containing Alcohol: 4 or more times a week - Substance Use History Substance History: Active Abuse - Substance Use Type Alcohol Route Used: By Mouth Reason for Use: Feels Good - Travel History Recent Travel in the [facility] Within the Last 8 Weeks: No - Immunization History Tetanus Immunization: Unsure Medications and Allergies Active Medications: Active Medications Al Hydroxide/Mg Hydroxide (Milk Of Magnesia Liq) 30 ml PO Q12H PRN PRN Reason: Mild Constipation Bisacodyl (Dulcolax Supp) 10 mg RECTAL DAILY PRN PRN Reason: SEVERE CONSITIPATION Sodium Chloride (Ns Inj) 500 mls @ 1,000 mls/hr IV.SIG BOLUS CYNDIE Stop: 07/19/18 16:29 Last Admin: 07/19/18 15:40 Dose: 1,000 mls/hr Lactulose (Lactulose Liq) 30 ml PO DAILY PRN PRN Reason: SEVERE CONSITIPATION Ondansetron HCl (Zofran Inj) 4 mg IV.PUSH Q6H PRN PRN Reason: NAUSEA OR VOMITING Sennosides (Senokot) 17.2 mg PO Q12H PRN PRN Reason: Moderate Constipation Allergies Allergy/AdvReac Type Severity Reaction Status Date / Time Tetanus Vaccines and Toxoid Allergy Severe Fever Verified 07/19/18 12:58 amoxicillin AdvReac Mild Nausea/Vomi Verified 07/19/18 12:58 ting Home Medications Medication Instructions Recorded Confirmed Type bicalutamide 50 mg PO HS 07/09/18 07/19/18 History calcium acetate 667 mg PO TID 07/09/18 07/19/18 History tamsulosin [Flomax] 0.4 mg PO DAILY 07/09/18 07/19/18 History Exam Vital signs: Vital Signs 07/19/18 12:29 07/19/18 14:04 Temperature 100 F H Pulse Rate 75 70 Respiratory Rate 16 20 Blood Pressure 144/69 H 162/65 H Pulse Oximetry 98 98 Intake & Output 07/18/18 07/19/18 07/19/18 18:59 06:59 18:59 Weight 78 kg Narrative: GENERAL: Well-developed, well-nourished patient in NAD. SKIN: Warm and dry. No rash. Pale. Right chest [id number], site clean dry and intact, no erythema or drainage. Dressing in place. Left upper arm AV fistula bruit and thrill noted. HEAD: Normocephalic. Atraumatic. EYES: Pupils equal and round. No scleral icterus. No injection or drainage. ENT: No nasal bleeding or discharge. Mucous membranes pink and moist. NECK: Supple. Trachea midline. CARDIOVASCULAR: Regular rate and rhythm. S1, S2 noted. No murmur appreciated. RESPIRATORY: No accessory muscle use. Clear to auscultation. Breath sounds equal bilaterally. GASTROINTESTINAL: Abdomen soft, non-tender, nondistended. Normoactive bowel sounds x4. MUSCULOSKELETAL: No obvious deformities. Extremities without clubbing, cyanosis. Mild trace edema to bilateral lower extremities. NEUROLOGICAL: Awake and alert. No obvious cranial nerve deficits. Motor grossly within normal limits. 5/5 muscle strength in bilateral upper and lower extremities. Normal speech. PSYCHIATRIC: Appropriate mood and affect; insight and judgment normal. Results - Labs CBC & Chem 7: 07/19/18 13:30 07/19/18 13:30 Labs: Laboratory Results - last 24 hr 07/19/18 07/19/18 13:30 13:30 CBC w Diff Slide review pending WBC 18.8 H RBC 3.20 L Hgb 9.3 L Hct 28.2 L MCV 88.1 MCH 29.2 MCHC 33.1 RDW 16.7 Plt Count 206 MPV 7.8 WBC Differential Manual diff final Seg Neuts % (Manual) 47 Band Neuts % (Manual) 3 Lymphocytes % (Manual) 37 Monocytes % (Manual) 11 H Eosinophils % (Manual) 1 Myelocytes % (Man) 1 H Abs Neuts (Manual) 9.6 H Differential Comment . Platelet Estimate Normal Platelet Morphology Normal Sodium 133 L Potassium 3.6 Chloride 100 Carbon Dioxide 19.1 L Anion Gap 14 BUN 50 H Creatinine 6.90 H Estimated GFR 8 L Random Glucose 105 Calcium 7.7 L - Imaging Impressions Chest X-Ray 07/19/18 13:02 CONCLUSION: Prominent cardiac silhouette Dialysis catheter Negative for acute process. Caprini VTE Risk Assessment Caprini VTE Risk Assessment: Moderate/High Risk (score >= 2) Caprini Risk Assessment Model: Point Value = 1 Point Value = 2 Point Value = 3 Point Value = 5 Age 41-60 Minor surgery BMI > 25 kg/m2 Swollen legs Varicose veins or History of unexplained or recurrent spontaneous Oral contraceptives or hormone replacement Sepsis (< 1 month) Serious lung disease, including pneumonia (< 1 month) Abnormal pulmonary function Acute myocardial infarction Congestive heart failure (< 1 month) History of inflammatory bowel disease Medical patient at bed rest Age 61-74 Arthroscopic surgery Major open surgery (> 45 min) Laparoscopic surgery (> 45 min) Malignancy Confined to bed (> 72 hours) Immobilizing plaster cast Central venous access Age >= 75 History of VTE Family history of VTE Factor V Leiden Prothrombin [id number] Lupus anticoagulant Anticardiolipin antibodies Elevated serum homocysteine Heparin-induced thrombocytopenia Other congenital or acquired thrombophilia Stroke (< 1 month) Elective arthroplasty Hip, pelvis, or leg fracture Acute spinal cord injury (< 1 month) Prophylaxis Regimen: Total Risk Factor Score Risk Level Prophylaxis Regimen 0-1 Low Early ambulation 2 Moderate Order ONE of the following: *Sequential Compression Device (SCD) *Heparin 5000 units SQ BID 3-4 Higher Order ONE of the following medications: *Heparin 5000 units SQ TID *Enoxaparin/Lovenox 40 mg SQ daily (WT < 150 kg, CrCl > 30 mL/min) *Enoxaparin/Lovenox 30 mg SQ daily (WT < 150 kg, CrCl > 10-29 mL/min) *Enoxaparin/Lovenox 30 mg SQ BID (WT < 150 kg, CrCl > 30 mL/min) AND/OR *Sequential Compression Device (SCD) 5 or more Highest Order ONE of the following medications: *Heparin 5000 units SQ TID (Preferred with Epidurals) *Enoxaparin/Lovenox 40 mg SQ daily (WT < 150 kg, CrCl > 30 mL/min) *Enoxaparin/Lovenox 30 mg SQ daily (WT < 150 kg, CrCl > 10-29 mL/min) *Enoxaparin/Lovenox 30 mg SQ BID (WT < 150 kg, CrCl > 30 mL/min) AND *Sequential Compression Device (SCD) Assessment and Plan - Assessment (1) Diarrhea Code(s): R19.7 - Diarrhea, unspecified Status: Acute (2) End stage renal disease Code(s): N18.6 - End stage renal disease Status: Acute (3) Acute kidney injury superimposed on chronic kidney disease Code(s): N17.9 - Acute kidney failure, unspecified; N18.9 - Chronic kidney disease, unspecified Status: Acute (4) Dehydration Code(s): E86.0 - Dehydration Status: Acute (5) Leukocytosis Code(s): D72.829 - Elevated white blood cell count, unspecified Status: Acute - Plan This is a pleasant 63-year-old male patient with a known history of end-stage renal disease on dialysis Tuesday, prostate cancer undergoing chemotherapy who presented to the ED with: Diarrhea -Recent antibiotic use during prior hospitalization. -Meets SIRS criteria with leukocytosis, tachycardia. Awaiting lactic acid. UA pending. Blood cultures ordered and pending. Chest x-ray reviewed with no acute findings noted. -WBC 18,000 on presentation. Afebrile. Repeat CBC in am. -Check stool studies including c diff. Follow. -On O2 to keep oxygen saturations greater than 92%. Doing well on room air. Elevated alkaline phosphatase -Level has actually improved from last hospitalization. -Patient presented with generalized worsening pain and aches in lower extremities. -ED physician during prior hospitalization, 07/09/18, ordered for knee and hip x -rays which are unremarkable for any acute findings. -Sees Dr. Fine for management of his metastatic prostate cancer. Was supposed to follow up with Dr. Arceo last week but was unable to. -He has been undergoing chemotherapy every few months. -Last PSA check was 190, more than doubled from prior check. Concern for metastatic disease. -Possible consult will be placed to palliative care, patient states he is just getting more weak and is questioning whether he wants to continue this treatment. -Continue to follow. May need to reconsult oncology, for now supportive care. Continue home medications. End stage renal disease on chronic dialysis -Consult placed to nephrology, usually has dialysis M,W,F. Last treatment was on 07/14/18. -Right infuse-port and left upper arm AV fistula in place. -Monitor labs. Gentle hydration. History of metastatic prostate cancer -Patient states that last chemotherapy was [address] Fine. -Continue Casodex. DVT prophylaxis: SCDs. (5) Leukocytosis Qualifiers: Leukocytosis type: unspecified Qualified Code(s): D72.829 - Elevated white blood cell count, unspecified
[2018-07-19 16:15] LABS: WBC,Urine 51-189 /hpf (0-5)
[2018-07-19 16:16] LABS: Bacteria,Urine Few /hpf; Squamous Epithelial Cell,Urine 0-5 /hpf (0-5)
[2018-07-19 17:04] LABS: Albumin 2.4 g/dL (3.4-5.0)
[2018-07-19 17:07] LABS: Alanine Aminotransferase 16 U/L (12-78); Aspartate Aminotransferase 37 U/L (15-37)
[2018-07-19 17:08] LABS: Total Protein 6.8 g/dL (6.4-8.2)
[2018-07-19 17:10] LABS: Alkaline Phosphatase 648 U/L (45-117)
[2018-07-19] MEDS: Calcium Acetate 667 MG Capsule PO SCH (18:06)
[2018-07-20 06:02] LABS: Baso # (Auto) 0.1 th/mm3 (0.0-0.2); Baso % (Auto) 0.5 % (0.0-2.0); Eos # (Auto) 0.1 th/mm3 (0.0-0.4); Eos % (Auto) 0.5 % (0.0-4.0); Hematocrit 26.3 % (39.0-51.0); Hemoglobin 8.6 gm/dL (13.0-17.0); Lymph # (Auto) 5.3 th/mm3 (1.0-4.8); Lymph % (Auto) 31.7 % (9.0-44.0); Mean Corpuscular HGB Conc 32.7 % (32.0-36.0); Mean Corpuscular Hemoglobin 28.7 pg (27.0-34.0); Mean Corpuscular Volume 87.7 fL (80.0-100.0); Mean Platelet Volume 7.5 fL (7.0-11.0); Mono # (Auto) 0.8 th/mm3 (0.0-0.9); Mono % (Auto) 4.9 % (0.0-8.0); Neut # (Auto) 10.4 th/mm3 (1.8-7.7); Neut % (Auto) 62.4 % (16.0-70.0); Platelet Count 201 th/mm3 (150-450); Red Cell Distribution Width 16.5 % (11.6-17.2); White Blood Count 16.7 th/mm3 (4.0-11.0)
[2018-07-20 06:25] LABS: Potassium 3.4 meq/L (3.5-5.1)
[2018-07-20 06:40] LABS: Calcium 7.4 mg/dL (8.5-10.1)
[2018-07-20 06:58] LABS: Calcium-Albumin Corrected 8.1 mg/dL (8.5-10.1); Total Protein 5.9 g/dL (6.4-8.2)
[2018-07-20 07:59] LABS: Lymphocytes 23 % (9-44); Monocytes 5 % (0-8)
[2018-07-20 08:01] LABS: Dohle Bodies Present; Hypersegmented Neutrophils 1+; Platelet Estimate Normal (Normal); Platelet Morphology Normal (Normal)
--- NOTE | 2018-07-20 08:55 | P.PNIM ---
Subjective Interval history: Follow-up generalized weakness. Patient seen and examined, lying in bed in no apparent distress. He still complains of being tired and weak. C. difficile is positive. Will continue vancomycin. Dialysis to be done today. Vital signs are stable. We will continue to monitor. Denies any chest pain or shortness of breath. Physical Exam Vital signs: Vital Signs 07/19/18 12:29 07/19/18 14:00 07/19/18 14:04 Temperature 100 F H Pulse Rate 75 66 70 Respiratory Rate 16 20 20 Blood Pressure 144/69 H 162/65 H 162/65 H Pulse Oximetry 98 98 98 07/19/18 15:00 07/19/18 16:00 07/19/18 17:29 Temperature 98.1 F Pulse Rate 68 60 65 Respiratory Rate 20 16 20 Blood Pressure 139/56 L 142/55 H 183/77 H Pulse Oximetry 99 100 97 07/19/18 20:27 07/20/18 00:00 07/20/18 03:19 Temperature 99 F 100.3 F H 99.7 F H Pulse Rate 73 75 Respiratory Rate 20 20 Blood Pressure 162/71 H 164/70 H Pulse Oximetry 100 100 07/20/18 08:00 Temperature 99.1 F Pulse Rate 58 L Respiratory Rate 19 Blood Pressure 158/72 H Pulse Oximetry 98 Intake & Output 07/19/18 07/20/18 07/20/18 18:59 06:59 18:59 Intake Total 500 / 500 480 / 480 240 / 240 Output Total 1280 / 1280 200 / 200 Balance -780 / -780 480 / 480 40 / 40 Weight 78 kg 78.6 kg Intake: IV 500 / 500 NS Inj 500 ML @ 1000 mls/hr IV. 500 / 500 SIG BOLUS CYNDIE Rx#:[id number] Oral 0 / 0 480 / 480 240 / 240 Output: Urine 1280 / 1280 200 / 200 Other: # Voids 1 1 Date of Last Bowel Movement 07/19/18 # Bowel Movements 1 1 Narrative: GENERAL: Well-developed, well-nourished patient in NAD. SKIN: Warm and dry. No rash. Pale. Right chest [id number], site clean dry and intact, no erythema or drainage. Dressing in place. Left upper arm AV fistula bruit and thrill noted. HEAD: Normocephalic. Atraumatic. EYES: Pupils equal and round. No scleral icterus. No injection or drainage. ENT: No nasal bleeding or discharge. Mucous membranes pink and moist. NECK: Supple. Trachea midline. CARDIOVASCULAR: Regular rate and rhythm. S1, S2 noted. No murmur appreciated. RESPIRATORY: No accessory muscle use. Clear to auscultation. Breath sounds equal bilaterally. GASTROINTESTINAL: Abdomen soft, non-tender, nondistended. Normoactive bowel sounds x4. MUSCULOSKELETAL: No obvious deformities. Extremities without clubbing, cyanosis. Mild trace edema to bilateral lower extremities. NEUROLOGICAL: Awake and alert. No obvious cranial nerve deficits. Motor grossly within normal limits. 5/5 muscle strength in bilateral upper and lower extremities. Normal speech. PSYCHIATRIC: Appropriate mood and affect; insight and judgment normal. Results - Labs CBC & Chem 7: 07/20/18 05:00 07/20/18 05:00 Laboratory Results - last 24 hr 07/19/18 07/19/18 07/19/18 13:30 13:30 15:44 CBC w Diff Slide review pending WBC 18.8 H RBC 3.20 L Hgb 9.3 L Hct 28.2 L MCV 88.1 MCH 29.2 MCHC 33.1 RDW 16.7 Plt Count 206 MPV 7.8 Neut % (Auto) Lymph % (Auto) Milam % (Auto) Eos % (Auto) Baso % (Auto) Neut # (Auto) Lymph # (Auto) Milam # (Auto) Eos # (Auto) Baso # (Auto) WBC Differential Manual diff final Seg Neuts % (Manual) 47 Band Neuts % (Manual) 3 Lymphocytes % (Manual) 37 Monocytes % (Manual) 11 H Eosinophils % (Manual) 1 Myelocytes % (Man) 1 H Abs Neuts (Manual) 9.6 H Differential Comment . Hypersegmented Neuts Dohle Bodies Platelet Estimate Normal Platelet Morphology Normal Sodium 133 L Potassium 3.6 Chloride 100 Carbon Dioxide 19.1 L Anion Gap 14 BUN 50 H Creatinine 6.90 H Estimated GFR 8 L Random Glucose 105 Lactic Acid Calcium 7.7 L Prot Corrected Calcium Total Bilirubin 0.2 AST 37 ALT 16 Alkaline Phosphatase 648 H Total Protein 6.8 Albumin 2.4 L Urine Color Yellow Urine Clarity Cloudy H Urine pH 6.5 Ur Specific Thornton 1.015 Urine Protein 100 H Urine Glucose (UA) Negative Urine Ketones Trace H Urine Occult Blood Moderate H Urine Nitrate Negative Urine Bilirubin Negative Urine Urobilinogen 0.2 Ur Leukocyte Esterase Large H Urine RBC 4-15 H Urine WBC 51-189 H Urine WBC Clumps Few H Ur Squamous Epith Cells 0-5 Urine Bacteria Few H Ur Yeast w Hyphae Many H Ur Microscopic Review Microscopic reviewed Eosinophil Stool Smear Stl C.difficile DNA Amp St C. diff Tox Epid 027 07/19/18 07/19/18 07/19/18 19:37 21:50 21:50 CBC w Diff WBC RBC Hgb Hct MCV MCH MCHC RDW Plt Count MPV Neut % (Auto) Lymph % (Auto) Milam % (Auto) Eos % (Auto) Baso % (Auto) Neut # (Auto) Lymph # (Auto) Milam # (Auto) Eos # (Auto) Baso # (Auto) WBC Differential Seg Neuts % (Manual) Band Neuts % (Manual) Lymphocytes % (Manual) Monocytes % (Manual) Eosinophils % (Manual) Myelocytes % (Man) Abs Neuts (Manual) Differential Comment Hypersegmented Neuts Dohle Bodies Platelet Estimate Platelet Morphology Sodium Potassium Chloride Carbon Dioxide Anion Gap BUN Creatinine Estimated GFR Random Glucose Lactic Acid 1.2 Calcium Prot Corrected Calcium Total Bilirubin AST ALT Alkaline Phosphatase Total Protein Albumin Urine Color Urine Clarity Urine pH Ur Specific Thornton Urine Protein Urine Glucose (UA) Urine Ketones Urine Occult Blood Urine Nitrate Urine Bilirubin Urine Urobilinogen Ur Leukocyte Esterase Urine RBC Urine WBC Urine WBC Clumps Ur Squamous Epith Cells Urine Bacteria Ur Yeast w Hyphae Ur Microscopic Review Eosinophil Stool Smear None seen Stl C.difficile DNA Amp Positive H St C. diff Tox Epid 027 Positive H 07/20/18 07/20/18 05:00 05:00 CBC w Diff Slide review pending WBC 16.7 H RBC 3.00 L Hgb 8.6 L Hct 26.3 L MCV 87.7 MCH 28.7 MCHC 32.7 RDW 16.5 Plt Count 201 MPV 7.5 Neut % (Auto) 62.4 Lymph % (Auto) 31.7 Milam % (Auto) 4.9 Eos % (Auto) 0.5 Baso % (Auto) 0.5 Neut # (Auto) 10.4 H Lymph # (Auto) 5.3 H Milam # (Auto) 0.8 Eos # (Auto) 0.1 Baso # (Auto) 0.1 WBC Differential Manual diff final Seg Neuts % (Manual) 68 Band Neuts % (Manual) 4 Lymphocytes % (Manual) 23 Monocytes % (Manual) 5 Eosinophils % (Manual) Myelocytes % (Man) Abs Neuts (Manual) 12.0 H Differential Comment . Hypersegmented Neuts 1+ H Dohle Bodies Present H Platelet Estimate Normal Platelet Morphology Normal Sodium 136 Potassium 3.4 L Chloride 102 Carbon Dioxide 19.0 L Anion Gap 15 BUN 51 H Creatinine 6.90 H Estimated GFR 8 L Random Glucose 130 H Lactic Acid Calcium 7.4 L* Prot Corrected Calcium 8.1 L Total Bilirubin AST ALT Alkaline Phosphatase Total Protein 5.9 L D Albumin Urine Color Urine Clarity Urine pH Ur Specific Thornton Urine Protein Urine Glucose (UA) Urine Ketones Urine Occult Blood Urine Nitrate Urine Bilirubin Urine Urobilinogen Ur Leukocyte Esterase Urine RBC Urine WBC Urine WBC Clumps Ur Squamous Epith Cells Urine Bacteria Ur Yeast w Hyphae Ur Microscopic Review Eosinophil Stool Smear Stl C.difficile DNA Amp St C. diff Tox Epid 027 - Imaging Impressions Chest X-Ray 07/19/18 13:02 CONCLUSION: Prominent cardiac silhouette Dialysis catheter Negative for acute process. Assessment and Plan - Assessment (1) Diarrhea Code(s): R19.7 - Diarrhea, unspecified Status: Acute (2) End stage renal disease Code(s): N18.6 - End stage renal disease Status: Acute (3) Acute kidney injury superimposed on chronic kidney disease Code(s): N17.9 - Acute kidney failure, unspecified; N18.9 - Chronic kidney disease, unspecified Status: Acute (4) Dehydration Code(s): E86.0 - Dehydration Status: Acute (5) Leukocytosis Code(s): D72.829 - Elevated white blood cell count, unspecified Status: Acute - Plan This is a pleasant 63-year-old male patient with a known history of end-stage renal disease on dialysis Tuesday, prostate cancer undergoing chemotherapy who presented to the ED with: C difficile diarrhea -Recent antibiotic use during prior hospitalization. -Meets SIRS criteria with leukocytosis, tachycardia. Awaiting lactic acid. Blood cultures ordered and pending. Chest x-ray reviewed with no acute findings noted. -WBC 18,000 on presentation. 16,000 today. Afebrile. -Check stool studies, pending. C diff +. -On O2 to keep oxygen saturations greater than 92%. Doing well on room air. -Continue on Vancomycin PO. Elevated alkaline phosphatase -Level has actually improved from last hospitalization. -Patient presented with generalized worsening pain and aches in lower extremities. -ED physician during prior hospitalization, 07/09/18, ordered for knee and hip x -rays which are unremarkable for any acute findings. -Sees Dr. Fine for management of his metastatic prostate cancer. Was supposed to follow up with Dr. Arceo last week but was unable to. -He has been undergoing chemotherapy every few months. -Last PSA check was 190, more than doubled from prior check. Concern for metastatic disease. -Possible consult will be placed to palliative care, patient states he is just getting more weak and is questioning whether he wants to continue this treatment. Patient denies desire for this right now. -Continue to follow, for now supportive care. Continue home medications. End stage renal disease on chronic dialysis -Consult placed to nephrology, usually has dialysis M,W,F. Last treatment was on 07/14/18. Treatment scheduled for today. -Right infuse-port and left upper arm AV fistula in place. -Monitor labs. Gentle hydration. History of metastatic prostate cancer -Patient states that last chemotherapy was [address] Fine. -Continue Casodex. DVT prophylaxis: SCDs. (5) Leukocytosis Qualifiers: Leukocytosis type: unspecified Qualified Code(s): D72.829 - Elevated white blood cell count, unspecified
[2018-07-20] MEDS: Calcium Acetate 667 MG Capsule PO SCH ×3 (09:20→18:23)
[2018-07-20] MEDS: Sod Chloride 0.9% Inj 1,000 ML IV.CONT SCH (09:51)
[2018-07-20] MEDS: Lactobacillus Acidophilus/L. Spores Tablet PO SCH ×2 (13:00→18:23)
[2018-07-20] MEDS ORDERED: Heparin 10,000 UNITS/10 ML Vial (for IV use) OTHER PRN ×2 (13:11)
[2018-07-20] MEDS ORDERED: Albumin Human 25% Inj 100 ML IV.SIG PRN (13:11)
[2018-07-20] MEDS ORDERED: Gelatin 12 MM/7 MM Topical Foam TOPICAL PRN (13:11)
[2018-07-20] MEDS ORDERED: Sod Chloride 0.9% Inj 1,000 ML OTHER PRN ×2 (13:11)
[2018-07-20] MEDS ORDERED: Acetaminophen 325 MG Tablet PO PRN (13:11)
[2018-07-20] MEDS ORDERED: Sod Chloride 0.9% Inj 1,000 ML IV.CONT PRN (13:11)
--- NOTE | 2018-07-20 18:08 | P.CONNP ---
History of Present Illness Service: Nephrology Consult date: 07/20/18 Requesting Physician: Morris Hollis Reason for Consult: ESRD for hemodialysis Primary Care Provider: No Primary Care Physician Chief Complaint: Weakness History of Present Illness: Patient is a 63-year-old white male with history of metastatic prostate cancer who was getting Lupron injection and was hospitalized recently treated with Zithromax and ceftriaxone for pneumonia number renal with weakness and increasing diarrhea, C. difficile is positive and has been treated, patient has missed his dialysis treatment, last dialysis was on 07/14/18, patient felt weak tired and lethargic, his PSA was 190 He was treated with Lupron and Casodex follows with oncology. Review of Systems Constitutional: Reports anorexia, Reports body ache(s), Reports chills, Reports malaise Eyes: Denies blind spots, Denies blurry vision, Denies bulging eyes, Denies change in vision, Denies double vision, Denies discharge, Denies dry eyes, Denies floaters, Denies irritation, Denies itchy eyes, Denies loss of vision, Denies pain, Denies requires corrective lenses, Denies sensitivity to light, Denies other Ears, Nose, Mouth, and Throat: Denies abnormal hearing, Denies bleeding gums, Denies bad breath, Denies change in voice, Denies dental pain, Denies difficulty swallowing, Denies dizziness, Denies dry mouth, Denies ear discharge , Denies ear pain, Denies facial pain, Denies headache(s), Denies hearing loss, Denies hoarseness, Denies lip swelling, Denies nosebleed, Denies mouth lesions, Denies mouth pain, Denies nasal congestion, Denies nasal discharge, Denies nasal obstruction, Denies nasal trauma, Denies neck lump, Denies neck pain, Denies nose pain, Denies pain with swallowing, Denies poor balance, Denies post nasal drip, Denies ringing in the ears, Denies sinus pain, Denies sinus pressure , Denies sore throat, Denies throat swelling, Denies tongue swelling, Denies other Respiratory: Reports cough, Reports shortness of breath Gastrointestinal: Reports abdominal pain, Reports change in bowel habits, Reports cramping, Reports loose stools, Reports nausea Genitourinary: Reports other Musculoskeletal: Reports back pain, Reports muscle weakness, Reports radiating pain into limb Neurologic: Reports weakness Psychiatric: Reports depression Hematologic/Lymphatic: Reports easy bruising Allergic/Immunologic: Reports GI upset with certain foods PMFSH - History History Provided By: Patient - Medical History Medical History: Medical History (Last Reviewed 07/20/18 @ 18:02 by Karena Duval MD) MDRO (multiple drug resistant organisms) resistance Onset Date: ~07/19/18 Acute renal failure Acute renal failure on dialysis Anemia Dyspnea Fistula Hypertension Kidney stone Prostate CA Sepsis Vascular dialysis catheter in place - Surgical History Surgical History: Surgical History (Last Reviewed 07/20/18 @ 18:02 by Karena Duval MD) H/O major orthopedic surgery - Family History Family History: Family History (Last Reviewed 07/20/18 @ 18:02 by Karena Duval MD) Other Family history in first degree relatives is unremarkable Family history non-contributory - Social History I have reviewed the patient's Social History: Yes - Tobacco History Second Hand Smoke Exposure: No Tobacco Use In Past 30 Days: Yes Smoking Status: Heavy tobacco smoker Tobacco Type: Cigarettes - Alcohol History How Often Do You Have a Drink Containing Alcohol: 4 or more times a week - Substance Use History Substance History: Active Abuse - Substance Use Type Alcohol Route Used: By Mouth Reason for Use: Feels Good - Travel History Recent Travel in the [facility] Within the Last 8 Weeks: No - Immunization History Tetanus Immunization: Unsure Medications and Allergies Active Medications: Active Medications Acetaminophen (Tylenol) 650 mg PO UNSCH PRN PRN Reason: SEE LABEL COMMENTS Hydrocodone Bitart/Acetaminophen ([place] 5/325) 1 tab PO Q4H PRN PRN Reason: PAIN SCALE 1 TO 10 Last Admin: 07/20/18 15:31 Dose: 1 tab Al Hydroxide/Mg Hydroxide (Milk Of Magntiffanie Liq) 30 ml PO Q12H PRN PRN Reason: Mild Constipation Bicalutamide (Casodex) 50 mg PO HS [facility] Last Admin: 07/19/18 21:50 Dose: 50 mg Bisacodyl (Dulcolax Supp) 10 mg RECTAL DAILY PRN PRN Reason: SEVERE CONSITIPATION Calcium Acetate (Phoslo) 667 mg PO TID [facility] Last Admin: 07/20/18 13:00 Dose: 667 mg Clonidine HCl (Catapres) 0.1 mg PO Q6H PRN PRN Reason: SYS BP GREATER THAN 160 MMHG Clonidine HCl (Catapres) 0.1 mg PO UNSCH PRN PRN Reason: SEE LABEL COMMENTS Diphenhydramine HCl (Benadryl) 25 mg PO UNSCH PRN PRN Reason: SEE LABEL COMMENTS Epoetin Hermes (Epogen Inj) 10,000 unit IV.PUSH UNSCH PRN PRN Reason: SEE LABEL COMMENTS Gelatin (Gelfoam 12 Mm/7 Mm Topical) 1 foam TOPICAL PRN PRN PRN Reason: help stop bleeding from site Gentamicin Sulfate (Gentamicin Inj) 20 mg OTHER WITH DIALYSIS PRN PRN Reason: Dwell Gentamycin Lock Heparin Sodium (Porcine) (Heparin Inj) 8,000 units OTHER WITH DIALYSIS PRN PRN Reason: for machine prime Heparin Sodium (Porcine) (Heparin Inj) 1,000 units OTHER WITH DIALYSIS PRN PRN Reason: Dwell Heparin to Fill Catheter Sodium Chloride (Ns Inj) 1,000 mls @ 42 mls/hr IV.CONT .[id number] [facility] Last Admin: 07/20/18 09:51 Dose: 42 mls/hr Albumin Human (Flexbumin 25% Inj) 100 mls @ 60 mls/hr IV.SIG WITH DIALYSIS PRN PRN Reason: hypotension / volume replace Sodium Chloride (Ns Inj) 1,000 mls @ 0 mls/hr OTHER .Q0M PRN PRN Reason: for prime and rinse back Sodium Chloride (Ns Inj) 1,000 mls @ 200 mls/hr OTHER .Q5H PRN PRN Reason: for dialyzer flush PRN Sodium Chloride (Ns Inj) 1,000 mls @ 0 mls/hr IV.CONT .Q0M PRN PRN Reason: hypotension / volume replace Lactobacillus Acidophilus (Lactinex) 1 tab PO TID [facility] Last Admin: 07/20/18 13:00 Dose: 1 tab Lactulose (Lactulose Liq) 30 ml PO DAILY PRN PRN Reason: SEVERE CONSITIPATION Mannitol (Mannitol Inj) 12.5 gm IV.PUSH UNSCH PRN PRN Reason: hypotension / volume replace Nitroglycerin (Nitrostat Sl) 0.4 mg SL Q5M PRN PRN Reason: CHEST PAIN Ondansetron HCl (Zofran Inj) 4 mg IV.PUSH UNSCH PRN PRN Reason: NAUSEA OR VOMITING Promethazine HCl (Phenergan) 25 mg PO Q4H PRN PRN Reason: NAUSEA OR VOMITING Last Admin: 07/20/18 15:26 Dose: 25 mg Sennosides (Senokot) 17.2 mg PO Q12H PRN PRN Reason: Moderate Constipation Sodium Chloride (Ns Flush) 5 ml IV.FLUSH PRN PRN PRN Reason: flush each lumen during HD Tamsulosin HCl (Flomax) 0.4 mg PO DAILY [facility] Last Admin: 07/20/18 09:20 Dose: 0.4 mg Vancomycin HCl (Vancomycin Po) 150 mg PO QID [facility] Last Admin: 07/20/18 13:00 Dose: 150 mg Allergies Allergy/AdvReac Type Severity Reaction Status Date / Time Tetanus Vaccines and Toxoid Allergy Severe Fever Verified 07/19/18 12:58 amoxicillin AdvReac Mild Nausea/Vomi Verified 07/19/18 12:58 ting Home Medications Medication Instructions Recorded Confirmed Type bicalutamide 50 mg PO HS 07/09/18 07/19/18 History calcium acetate 667 mg PO TID 07/09/18 07/19/18 History tamsulosin [Flomax] 0.4 mg PO DAILY 07/09/18 07/19/18 History Exam Vital signs: Vital Signs 07/19/18 20:27 07/20/18 00:00 07/20/18 03:19 Temperature 99 F 100.3 F H 99.7 F H Pulse Rate 73 75 Respiratory Rate 20 20 Blood Pressure 162/71 H 164/70 H Pulse Oximetry 100 100 07/20/18 08:00 07/20/18 12:00 07/20/18 16:00 Temperature 99.1 F 97.8 F 99.1 F Pulse Rate 58 L 72 77 Respiratory Rate 19 20 20 Blood Pressure 158/72 H 154/67 H 179/79 H Pulse Oximetry 98 99 99 Intake & Output 07/19/18 07/20/18 07/20/18 18:59 06:59 18:59 Intake Total 500 / 500 480 / 480 480 / 480 Output Total 1280 / 1280 400 / 400 Balance -780 / -780 480 / 480 80 / 80 Weight 78 kg 78.6 kg Intake: IV 500 / 500 NS Inj 500 ML @ 1000 mls/hr IV. 500 / 500 SIG B[facility]US [facility] Rx#:[id number] Oral 0 / 0 480 / 480 480 / 480 Output: Urine 1280 / 1280 400 / 400 Other: # Voids 1 1 Date of Last Bowel Movement 07/19/18 07/19/18 # Bowel Movements 1 1 Narrative: GENERAL: Weak and mal nourished, well-developed patient. SKIN: Warm and dry. HEAD: Normocephalic. EYES: No scleral icterus. No injection or drainage. NECK: Supple, trachea midline. No JVD or lymphadenopathy. CARDIOVASCULAR: Regular rate and rhythm without murmurs, gallops, or rubs. Permacath in place RESPIRATORY: Breath sounds diminished at bases. GASTROINTESTINAL: Abdomen soft, non-tender, nondistended. EXTREMITIES: No edema, left arm AV fistula NEUROLOGICAL: Awake, alert, and oriented x 3. Non-focal. Results - Lab Results 07/20/18 05:00 07/20/18 05:00 Most recent lab results Calcium 7.4 mg/dL (8.5-10.1) L* 07/20/18 05:00 Assessment and Plan - Assessment (1) C. difficile colitis Code(s): A04.72 - Enterocolitis due to Clostridium difficile, not specified as recurrent Status: Acute (2) End stage renal disease Code(s): N18.6 - End stage renal disease Status: Acute (3) Fever Code(s): R50.9 - Fever, unspecified Status: Acute (4) Leukocytosis Code(s): D72.829 - Elevated white blood cell count, unspecified Status: Acute (5) Prostate cancer metastatic to bone Code(s): C61 - Malignant neoplasm of prostate; C79.51 - Secondary malignant neoplasm of bone Status: Acute - Plan Seen during hemodialysis blood pressure is on lowers and ultrafiltration minimal Continues supportive care Next dialysis will be tomorrow Tuesday, Tuesday and Tuesday schedule will be continued C. difficile colitis being treated P.o. vancomycin and lactobacillus (3) Fever Qualifiers: Fever type: unspecified Qualified Code(s): R50.9 - Fever, unspecified (4) Leukocytosis Qualifiers: Leukocytosis type: unspecified Qualified Code(s): D72.829 - Elevated white blood cell count, unspecified
[2018-07-21 06:45] LABS: Baso % (Auto) 0.2 % (0.0-2.0); Eos # (Auto) 0.1 th/mm3 (0.0-0.4); Eos % (Auto) 0.4 % (0.0-4.0); Hemoglobin 7.2 gm/dL (13.0-17.0); Lymph # (Auto) 3.7 th/mm3 (1.0-4.8); Lymph % (Auto) 29.7 % (9.0-44.0); Mean Corpuscular HGB Conc 32.4 % (32.0-36.0); Mean Corpuscular Hemoglobin 28.6 pg (27.0-34.0); Mean Corpuscular Volume 88.2 fL (80.0-100.0); Mean Platelet Volume 7.5 fL (7.0-11.0); Mono # (Auto) 0.5 th/mm3 (0.0-0.9); Neut # (Auto) 8.3 th/mm3 (1.8-7.7); Neut % (Auto) 65.7 % (16.0-70.0); Platelet Count 172 th/mm3 (150-450); Red Cell Distribution Width 16.7 % (11.6-17.2); White Blood Count 12.6 th/mm3 (4.0-11.0)
[2018-07-21 07:10] LABS: Potassium 3.3 meq/L (3.5-5.1)
[2018-07-21 07:30] LABS: Carbon Dioxide 25.5 meq/L (21.0-32.0)
[2018-07-21 07:51] LABS: Calcium-Albumin Corrected 8.1 mg/dL (8.5-10.1)
[2018-07-21] MEDS: Lactobacillus Acidophilus/L. Spores Tablet PO SCH ×3 (08:14→18:39)
[2018-07-21] MEDS: Calcium Acetate 667 MG Capsule PO SCH ×3 (08:15→18:38)
[2018-07-21] MEDS: Sod Chloride 0.9% Inj 1,000 ML IV.CONT SCH (10:12)
--- NOTE | 2018-07-21 10:48 | P.PNIM ---
Subjective Interval history: Follow up c diff and generalized weakness. Patient seen and examined, lying in bed sleeping. Awakens to voice. States he has over 6 bouts of diarrhea since midnight. Still feels weak. Underwent a dialysis treatment yesterday. Afebrile. Continue abxs. Physical Exam Vital signs: Vital Signs 07/20/18 12:00 07/20/18 16:00 07/20/18 20:00 Temperature 97.8 F 99.1 F 98.3 F Pulse Rate 72 77 80 Respiratory Rate 20 20 20 Blood Pressure 154/67 H 179/79 H 163/74 H Pulse Oximetry 99 99 100 07/20/18 23:10 07/21/18 00:00 07/21/18 04:00 Temperature 98.8 F 99 F Pulse Rate 67 65 Respiratory Rate 20 20 Blood Pressure 133/62 143/63 H Pulse Oximetry 96 96 97 07/21/18 08:00 07/21/18 08:30 Temperature 99.8 F H Pulse Rate 67 Respiratory Rate 17 Blood Pressure 148/66 H Pulse Oximetry 96 96 Intake & Output 07/20/18 07/21/18 07/21/18 18:59 06:59 18:59 Intake Total 480 / 480 480 / 480 1000 / 1000 Output Total 400 / 400 700 / 700 Balance 80 / 80 -220 / -220 1000 / 1000 Weight 77.7 kg Intake: IV 1000 / 1000 NS Inj 1,000 ML @ 42 mls/hr IV. 1000 / 1000 CONT .[id number] [facility] Rx#: [id number] Oral 480 / 480 480 / 480 Output: Urine 400 / 400 200 / 200 Hemodialysis Amount 500 / 500 Other: Date of Last Bowel Movement 07/19/18 Narrative: GENERAL: Weak and mal nourished, well-developed patient. SKIN: Warm and dry. HEAD: Normocephalic. EYES: No scleral icterus. No injection or drainage. NECK: Supple, trachea midline. No JVD or lymphadenopathy. CARDIOVASCULAR: Regular rate and rhythm without murmurs, gallops, or rubs. Permacath in place RESPIRATORY: Breath sounds CTA GASTROINTESTINAL: Abdomen soft, non-tender, nondistended. EXTREMITIES: No edema, left arm AV fistula NEUROLOGICAL: Awake, alert, and oriented x 3. Non-focal. Results - Labs CBC & Chem 7: 07/21/18 05:17 07/21/18 05:17 Laboratory Results - last 24 hr 07/19/18 07/21/18 07/21/18 21:50 05:17 05:17 CBC w Diff Auto diff final WBC 12.6 H RBC 2.50 L Hgb 7.2 L Hct 22.0 L MCV 88.2 MCH 28.6 MCHC 32.4 RDW 16.7 Plt Count 172 MPV 7.5 Neut % (Auto) 65.7 Lymph % (Auto) 29.7 Karnes % (Auto) 4.0 Eos % (Auto) 0.4 Baso % (Auto) 0.2 Neut # (Auto) 8.3 H Lymph # (Auto) 3.7 Karnes # (Auto) 0.5 Eos # (Auto) 0.1 Baso # (Auto) 0.0 WBC Differential . Differential Comment . Sodium 138 Potassium 3.3 L Chloride 101 Carbon Dioxide 25.5 Anion Gap 12 BUN 28 H Creatinine 4.50 H Estimated GFR 13 L Random Glucose 99 Calcium 7.0 L* Prot Corrected Calcium 8.1 L Total Protein 5.0 L D Stool C.difficile Ag Positive H Stool C.difficile Toxin Positive H Microbiology 07/19/18 15:44 Clean Catch Urine Urine Culture - Final 10-50,000 cfu/mL mixed gram positive leonora (probable contaminants) 07/19/18 13:30 Blood - Peripheral Aerobic Blood Culture - Preliminary No growth in 1 day 07/19/18 13:30 Blood - Peripheral Anaerobic Blood Culture - Preliminary No growth in 1 day 07/19/18 13:25 Blood - Peripheral Aerobic Blood Culture - Preliminary No growth in 1 day 07/19/18 13:25 Blood - Peripheral Anaerobic Blood Culture - Preliminary No growth in 1 day 07/19/18 21:50 Stool Stool for WBCs - Final Rare WBC's Assessment and Plan - Assessment (1) Diarrhea Code(s): R19.7 - Diarrhea, unspecified Status: Acute (2) End stage renal disease Code(s): N18.6 - End stage renal disease Status: Acute (3) Acute kidney injury superimposed on chronic kidney disease Code(s): N17.9 - Acute kidney failure, unspecified; N18.9 - Chronic kidney disease, unspecified Status: Acute (4) Dehydration Code(s): E86.0 - Dehydration Status: Acute (5) Leukocytosis Code(s): D72.829 - Elevated white blood cell count, unspecified Status: Acute - Plan This is a pleasant 63-year-old male patient with a known history of end-stage renal disease on dialysis Tuesday, prostate cancer undergoing chemotherapy who presented to the ED with: C difficile diarrhea -Recent antibiotic use during prior hospitalization. -Meets SIRS criteria with leukocytosis, tachycardia. Awaiting lactic acid. Blood cultures ordered and pending. Chest x-ray reviewed with no acute findings noted. -WBC 18,000 on presentation. 12,000 today. Afebrile. -Check stool studies, pending. C diff +. -On O2 to keep oxygen saturations greater than 92%. Doing well on room air. -Continue on Vancomycin PO. -Reports of 6 bouts of diarrhea overnight. Continue to monitor. Anemia suspect secondary to end stage renal disease. -Patient is weak, dehydrated secondary to diarrhea. May be secondary to anemia. -H&H dropped overnight to 7.2. Will transfuse 1 unit PRBC now. -Will encourage Epogen with treatment. Elevated alkaline phosphatase -Level has actually improved from last hospitalization. -Patient presented with generalized worsening pain and aches in lower extremities. -ED physician during prior hospitalization, 07/09/18, ordered for knee and hip x -rays which are unremarkable for any acute findings. -Sees Dr. Fine for management of his metastatic prostate cancer. Was supposed to follow up with Dr. Arceo last week but was unable to. -He has been undergoing chemotherapy every few months. -Last PSA check was 190, more than doubled from prior check. Concern for metastatic disease. -Possible consult will be placed to palliative care, patient states he is just getting more weak and is questioning whether he wants to continue this treatment. Patient denies desire for this right now. -Continue to follow, for now supportive care. Continue home medications. End stage renal disease on chronic dialysis -Consult placed to nephrology, usually has dialysis M,W,F. Last treatment was yesterday 07/21. -Right infuse-port and left upper arm AV fistula in place. -Monitor labs. DC IVF. History of metastatic prostate cancer -Patient states that last chemotherapy was [address] Fine. -Continue Casodex. DVT prophylaxis: SCDs. (5) Leukocytosis Qualifiers: Leukocytosis type: unspecified Qualified Code(s): D72.829 - Elevated white blood cell count, unspecified
[2018-07-21] MEDS ORDERED: Sodium Chlor 0.9% Inj 250 ML IV.SIG SCH (12:00)
--- NOTE | 2018-07-21 15:21 | P.PNNP ---
Subjective Interval history: Patient seen at dialysis complaining of diarrhea Physical Exam Vital signs: Vital Signs 07/20/18 16:00 07/20/18 20:00 07/20/18 23:10 Temperature 99.1 F 98.3 F Pulse Rate 77 80 Respiratory Rate 20 20 Blood Pressure 179/79 H 163/74 H Pulse Oximetry 99 100 96 07/21/18 00:00 07/21/18 04:00 07/21/18 08:00 Temperature 98.8 F 99 F 99.8 F H Pulse Rate 67 65 67 Respiratory Rate 20 20 17 Blood Pressure 133/62 143/63 H 148/66 H Pulse Oximetry 96 97 96 07/21/18 08:30 07/21/18 12:00 Temperature 98.8 F Pulse Rate 54 L Respiratory Rate 16 Blood Pressure 142/68 H Pulse Oximetry 96 96 Intake & Output 07/20/18 07/21/18 07/21/18 18:59 06:59 18:59 Intake Total 480 / 480 480 / 480 1000 / 1000 Output Total 400 / 400 700 / 700 Balance 80 / 80 -220 / -220 1000 / 1000 Weight 77.7 kg Intake: IV 1000 / 1000 NS Inj 1,000 ML @ 42 mls/hr IV. 1000 / 1000 CONT .[id number] [facility] Rx#: [id number] Oral 480 / 480 480 / 480 Output: Urine 400 / 400 200 / 200 Hemodialysis Amount 500 / 500 Other: Date of Last Bowel Movement 07/19/18 Narrative: GENERAL: Weak and mal nourished, well-developed patient. SKIN: Warm and dry. HEAD: Normocephalic. EYES: No scleral icterus. No injection or drainage. NECK: Supple, trachea midline. No JVD or lymphadenopathy. CARDIOVASCULAR: Regular rate and rhythm without murmurs, gallops, or rubs. Permacath in place RESPIRATORY: Breath sounds CTA GASTROINTESTINAL: Abdomen soft, non-tender, nondistended. EXTREMITIES: No edema, left arm AV fistula NEUROLOGICAL: Awake, alert, and oriented x 3. Non-focal. Assessment and Plan - Assessment (1) C. difficile colitis Code(s): A04.72 - Enterocolitis due to Clostridium difficile, not specified as recurrent Status: Acute (2) End stage renal disease Code(s): N18.6 - End stage renal disease Status: Acute (3) Fever Code(s): R50.9 - Fever, unspecified Status: Acute Qualifiers: Fever type: unspecified Qualified Code(s): R50.9 - Fever, unspecified (4) Leukocytosis Code(s): D72.829 - Elevated white blood cell count, unspecified Status: Acute Qualifiers: Leukocytosis type: unspecified Qualified Code(s): D72.829 - Elevated white blood cell count, unspecified (5) Prostate cancer metastatic to bone Code(s): C61 - Malignant neoplasm of prostate; C79.51 - Secondary malignant neoplasm of bone Status: Acute - Plan Seen during hemodialysis ultrafiltration of 500 cc as having diarrhea Continues supportive care Next dialysis Tuesday, Tuesday and Tuesday schedule will be continued C. difficile colitis being treated P.o. vancomycin and lactobacillus Low potassium supplement 24 meq given
[2018-07-21 17:03] LABS: Chloride, Feces 39 mmol/L (See Comment); Osmolality, Feces 559 mOsm/kg (See Comment); Potassium, Feces 43 mmol/L; Sodium, Feces 73 mmol/L
--- NOTE | 2018-07-22 08:05 | P.DS ---
Date of admission: 07/20/18 10:23 Primary care physician: No Primary Care Physician Brief History from admission: This is a very pleasant 63-year-old male patient with a known medical history of end-stage renal disease, prostate cancer currently undergoing chemotherapy, hypertension who presented to the ED with generalized weakness and diarrhea. Patient was recently hospitalized on 07/09/18 for symptomatic anemia. He was given 1 unit PRBC as well as Epogen during dialysis treatments, and improved overall. During that same hospitalization he was diagnosed with pneumonia and completed a dose of Rocephin and Zithromax. Patient did have significant elevated alkaline phosphatase. It was discussed with the patient's urologist Dr. Fine at that time with a significantly elevated PSA level at 190 also noted. The patient originally started with a PSA level of 80. He recommended that patient get evaluation done by oncologist. Patient states that he was on Lupron and Casodex which he has taken appropriately. Oncology was consulted who did evaluate the patient and recommend patient should follow-up with Dr Moore in outpatient setting upon discharge. Patient did not have any time to follow up since discharge. Patient does also have end-stage renal disease, undergoes dialysis at [facility], follows with Dr. Duval, receives dialysis on Tuesday, Tuesday and Fridays, last treatment was on 07/14/18. Patient also underwent AV fistula surgery in the past two months and states that this has not been used yet. He presents with a right chest port which appears to be clean , dry and intact with no erythema or signs of infection. Leukocytosis noted on blood work, WBC of 18,000. It should also be noted that patient has been having increasing knee and hip pain over the past couple weeks that has been consistent. He has also developed diarrhea since discharge and thinks this is possibly related to the previous antibiotics. Last BM 3 hours ago. Patient update on day of discharge: C. difficile infection and anemia. Patient seen and examined lying in bed comfortably no apparent distress. He states that he feels much improved today. Complexion is better. He does state that he has had 4 bouts of diarrhea since midnight. This has slowed down since the day before. Is eating well without any abdominal pain, nausea or vomiting. He will be discharged home later after lunch today. Vancomycin p.o. prescription has been ordered and taper for medication has been given to patient and explained. This is the second bout of C. difficile that he has had, prior infection was earlier this year. Patient does not want rifampin, states he had a bad reaction earlier this year. DS: Diagnosis - Discharge Diagnosis (1) Diarrhea Status: Acute (2) End stage renal disease Status: Acute (3) Acute kidney injury superimposed on chronic kidney disease Status: Acute (4) Dehydration Status: Acute (5) Leukocytosis Status: Acute DS: Medications - Discharge Medications Prescriptions: acidophilus-sporogenes [Acidophilus Ex Str (L. sporog)] 1 tab PO TID 30 Days # 90 tab vancomycin 125 mg PO QID #1 bottle DS: Summary Hospital Course: This is a pleasant 63-year-old male patient with a known history of end-stage renal disease on dialysis Tuesday, prostate cancer undergoing chemotherapy who presented to the ED with generalized weakness and diarrhea. Patient was recently hospitalized late June had antibiotics during that time and since discharge has been having frequent bouts of diarrhea. Stool studies were negative C. difficile culture was positive. He met sepsis criteria with leukocytosis tachycardia. Lactic acid was normal. Blood cultures negative to date. Chest x-ray did not show acute findings. Patient was started on vancomycin p.o. and discharged home with vancomycin taper per up-to-date recommendations. Rifampin was also recommended although patient states that he will adamantly refuse this medication stating he had some problems with that earlier this year. His diarrhea has improved over the course of the hospitalization. He did undergo dialysis treatment, nephrology did follow patient during hospitalization, tolerated dialysis well. During hospitalization his hemoglobin dropped to 7.2, unit of blood was transfused. He will follow-up with nephrology and obtain follow-up CBC. His hemoglobin improved overall as well as all of his symptoms. Patient does have an elevated alkaline phosphatase, this is actually improved from last hospitalization. The physician during prior hospitalization order for knee and hip x-rays which were unremarkable for any rate acute findings. Patient follows with Dr. Fine for his prostate cancer. I have recommended that patient follow-up with Dr. Adis arellano. Supposedly was supposed to follow-up post discharge last admission and he was unable to due to feeling sick. He has been undergoing chemotherapy every few months.Last PSA check was 190, more than doubled from prior check. Concern for metastatic disease. Patient does have end stage renal disease on chronic dialysis Tuesday and Tuesday. Right [id number] and left upper arm AV fistula in place. This is stable at this time. Will follow up with nephrology outpatient. Continued chemotherapy as well as medications from home. Patient was stabilized on day of discharge and agreeable to follow-up. Prescriptions per discharge plan. Encourage patient to finish complete dose of vancomycin for C. difficile infection. - Time Spent with Patient Total time spent providing and/or coordinating discharge services: Greater than 30 minutes - Quality: VTE Deep Vein Thrombosis/Pulmonary Embolism Present on Admission: No Exam Vital signs: Vital Signs 07/21/18 08:30 07/21/18 12:00 07/21/18 15:35 Temperature 98.8 F 98.5 F Pulse Rate 54 L 61 Respiratory Rate 16 Blood Pressure 142/68 H 144/64 H Pulse Oximetry 96 96 07/21/18 15:49 07/21/18 20:00 07/21/18 20:30 Temperature 98.3 F 99.5 F Pulse Rate 58 L 67 Respiratory Rate 20 Blood Pressure 150/71 H 153/66 H Pulse Oximetry 97 96 07/22/18 00:00 Temperature 96.9 F L Pulse Rate 52 L Respiratory Rate 20 Blood Pressure 148/69 H Pulse Oximetry 96 Intake & Output 07/21/18 07/22/18 07/22/18 18:59 06:59 18:59 Intake Total 1500 / 1500 480 / 480 Output Total 500 / 500 Balance 1000 / 1000 480 / 480 Weight 77.4 kg Intake: IV 1100 / 1100 NS Inj 1,000 ML @ 42 mls/hr IV. 1100 / 1100 CONT .[id number] [facility] Rx#: [id number] Oral 480 / 480 Intake (Blood Product) Amt 400 / 400 Rbc As-3 Leukoreduced Unit 400 / 400 [id number] Output: Hemodialysis Amount 500 / 500 Other: # Voids 4 # Bowel Movements 4 Narrative: GENERAL: Weak and mal nourished, well-developed patient. SKIN: Warm and dry. HEAD: Normocephalic. EYES: No scleral icterus. No injection or drainage. NECK: Supple, trachea midline. No JVD or lymphadenopathy. CARDIOVASCULAR: Regular rate and rhythm without murmurs, gallops, or rubs. Permacath in place RESPIRATORY: Breath sounds CTA GASTROINTESTINAL: Abdomen soft, non-tender, nondistended. EXTREMITIES: No edema, left arm AV fistula NEUROLOGICAL: Awake, alert, and oriented x 3. Non-focal. Results Procedures completed during hospitalization: C. difficile positive. Labs on day of discharge: Labs from last 24 hours 07/21/18 07/19/18 12:11 21:50 Stool Sodium 73 Stool Potassium 43 Stool Chloride 39 Stool Osmolality 559 Stool Osmotic Gap 58 Stool Phosphorous 33 Stool Magnesium 20 Blood Type O Negative Antibody Screen Negative MTS Gel Crossmatch See Detail Preliminary micro results at discharge 07/19/18 13:30 Aerobic Blood Culture - Preliminary Blood - Peripheral No growth in 2 days Anaerobic Blood Culture - Preliminary No growth in 2 days 07/19/18 13:25 Aerobic Blood Culture - Preliminary Blood - Peripheral No growth in 2 days Anaerobic Blood Culture - Preliminary No growth in 2 days - Impressions ITS Impressions Chest X-Ray 07/19/18 13:02 CONCLUSION: Prominent cardiac silhouette Dialysis catheter Negative for acute process. Discharge Plan - Discharge Disposition Patient Disposition: Discharge Home - Discharge Condition Condition: Stable - Discharge Order Discharge Orders: Discharge Order (Routine); Ordered 07/22/18 Ordered By: Suzy Santos - Discharge Details Anticipated Discharge Date: 07/22/18 Discharge Comment: DC AFTER LUNCH - Physicians Team Primary Care Provider: Primary Care Bhavani Yip Attending Provider: Morris Hollis Other Providers: Karena Duval MD
[2018-07-22 09:07] VITALS: RESP 17
[2018-07-22] MEDS: Lactobacillus Acidophilus/L. Spores Tablet PO SCH ×2 (09:35→12:20)
[2018-07-22] MEDS: Calcium Acetate 667 MG Capsule PO SCH ×2 (09:35→12:20)
[2018-07-22 10:07] LABS: Baso # (Auto) 0.1 th/mm3 (0.0-0.2); Baso % (Auto) 0.7 % (0.0-2.0); Eos # (Auto) 0.1 th/mm3 (0.0-0.4); Eos % (Auto) 0.6 % (0.0-4.0); Hematocrit 25.9 % (39.0-51.0); Hemoglobin 8.6 gm/dL (13.0-17.0); Lymph # (Auto) 3.2 th/mm3 (1.0-4.8); Lymph % (Auto) 27.7 % (9.0-44.0); Mean Corpuscular HGB Conc 33.1 % (32.0-36.0); Mean Corpuscular Hemoglobin 28.8 pg (27.0-34.0); Mean Platelet Volume 7.5 fL (7.0-11.0); Mono # (Auto) 0.5 th/mm3 (0.0-0.9); Neut # (Auto) 7.7 th/mm3 (1.8-7.7); Platelet Count 177 th/mm3 (150-450); Red Blood Count 2.98 mil/mm3 (4.50-5.90); Red Cell Distribution Width 17.2 % (11.6-17.2); White Blood Count 11.6 th/mm3 (4.0-11.0)
[2018-07-22 10:14] LABS: Potassium 3.2 meq/L (3.5-5.1)
[2018-07-22 10:41] LABS: Calcium 7.4 mg/dL (8.5-10.1); Carbon Dioxide 31.1 meq/L (21.0-32.0)
[2018-07-22 12:23] LABS: Calcium-Albumin Corrected 8.4 mg/dL (8.5-10.1); Total Protein 5.3 g/dL (6.4-8.2)
[2018-07-22 12:38] VITALS: BP 157/67; PULSE 64; TEMP 98.8; O2SAT 95
== END 2018-07-22 14:34 | disposition home or self-care (01) ==
LOC: PHED 12:14 → PHEDA 15:25 → INTOOBSV 15:25 → PHEDA 16:59 → PH3 17:07
PROVIDERS: ADMIT Internal Medicine; ATTEND Internal Medicine

== ENCOUNTER 2018-08-13 15:28 | Inpatient (IN) ==
--- NOTE | 2018-08-13 17:17 | XR ---
EXAM DATE: 08/13/2018 5:11 PM EST AGE/SEX: 63 years / Male INDICATIONS: Short of breath, cough CLINICAL DATA: This is the patient's initial encounter. Patient reports that signs and symptoms have been present for 4 - 6 days and indicates a pain score of 0/10. MEDICAL/SURGICAL HISTORY: . Renal failure, acute. Anemia. Hypertension. Sepsis. Prostate cance r. Renal stone. Fistula. Dyspnea. . . . Orthopedic surgery. Infusaport, central line for dialysis COMPARISON: [facility], CHEST 2V PA&LAT, 07/19/2018. . FINDINGS: Stable tunneled right IJ dialysis catheter. Cardiac silhouette is enlarged with indistinct central pu lmonary vascularity mild diffuse interstitial prominence. Mild airspace disease in the left lower he g zone with associated probable trace pleural effusion. Remainder of exam is unchanged. CONCLUSION: 1. Cardiomegaly with pulmonary vascular congestion. 2. Mild airspace disease in the left lower lung zone with associated probable trace pleural effusion . Electronically signed by: Ferdinand Fisher MD 08/13/2018 5:16 PM EST
[2018-08-13 17:27] LABS: Hematocrit 21.3 % (39.0-51.0); Mean Corpuscular HGB Conc 32.1 % (32.0-36.0); Mean Corpuscular Hemoglobin 28.8 pg (27.0-34.0); Mean Corpuscular Volume 89.8 fL (80.0-100.0); Mean Platelet Volume 8.4 fL (7.0-11.0); Platelet Count 219 th/mm3 (150-450); Red Blood Count 2.38 mil/mm3 (4.50-5.90); Red Cell Distribution Width 18.5 % (11.6-17.2); White Blood Count 12.7 th/mm3 (4.0-11.0)
[2018-08-13 17:37] LABS: Chloride 101 meq/L (98-107); Potassium 4.1 meq/L (3.5-5.1); Sodium 135 meq/L (136-145)
[2018-08-13 17:39] LABS: Magnesium 1.7 mg/dL (1.5-2.5)
[2018-08-13 17:40] LABS: Calcium 7.9 mg/dL (8.5-10.1)
[2018-08-13 17:41] LABS: Albumin 2.4 g/dL (3.4-5.0); Anion Gap 13 meq/L (5-15); Blood Urea Nitrogen 19 mg/dL (7-18); Carbon Dioxide 20.9 meq/L (21.0-32.0); Glucose,Random 103 mg/dL (74-106); Hemoglobin 6.8 gm/dL (13.0-17.0)
[2018-08-13 17:44] LABS: Alanine Aminotransferase 11 U/L (12-78); Aspartate Aminotransferase 25 U/L (15-37); Glomerular Filtration Rate 14 mL/min (>89)
[2018-08-13 17:45] LABS: Total Protein 6.2 g/dL (6.4-8.2)
[2018-08-13 17:46] LABS: Creatine Kinase 118 U/L (39-308)
[2018-08-13 17:53] LABS: Troponin I 2.31 ng/mL (0.02-0.05)
[2018-08-13 17:58] LABS: Alkaline Phosphatase 1096 U/L (45-117)
[2018-08-13 18:02] LABS: Lymphocytes 23 % (9-44); Monocytes 7 % (0-8); Platelet Estimate Normal (Normal); Platelet Morphology Normal (Normal); Tallied Nucleated RBC 1 (0-0)
[2018-08-13 18:03] LABS: Creatine Kinase MB 3.3 ng/mL (0.5-3.6)
--- NOTE | 2018-08-13 18:50 | ED ---
HPI General Chief complaint: Respiratory Symptoms Stated complaint: Weakness Time Seen by Provider: 08/13/18 15:45 Source: patient Mode of arrival: EMS Limitations: no limitations History of Present Illness HPI narrative: Patient is a 63-year-old male who comes in complaining of shortness of breath. He says this is been going on for the past 4 days. He denies any chest pain. He says he has a slight cough. He is on dialysis, he goes to dialysis Tuesday, Tuesday, Tuesday. He has not missed any sessions. He denies fever or chills. He denies any nausea or vomiting. He also has history of prostate cancer with questionable metastasis. Severity is moderate. Related Data Home Medications Medication Instructions Recorded Confirmed bicalutamide 50 mg PO HS 07/09/18 08/13/18 tamsulosin [Flomax] 0.4 mg PO DAILY 07/09/18 08/13/18 Previous Rx's Medication Instructions Recorded metronidazole 500 mg PO Q8HR #30 tab 08/16/18 Allergies Allergy/AdvReac Type Severity Reaction Status Date / Time Tetanus Vaccines and Toxoid Allergy Severe Fever Verified 08/13/18 15:46 amoxicillin AdvReac Mild Nausea/Vomi Verified 08/13/18 15:46 ting Review of Systems ROS: all other systems reviewed are negative Constitutional Denies chills and Denies fever(s) ENT Denies dizziness Cardiovascular Denies chest pain and Reports dyspnea Respiratory Reports cough and Reports dyspnea Gastrointestinal Denies nausea and Denies vomiting Musculoskeletal Denies myalgias and Denies arthralgias Integumentary/Breasts Denies sores and Denies wounds Neurologic Denies focal weakness and Denies numbness [facility] Medical History Medical History Acute renal failure (Acute) Acute renal failure on dialysis (Acute) Anemia (Acute) Dyspnea (Acute) Fistula (Acute) Hypertension (Acute) Kidney stone (Acute) MDRO (multiple drug resistant organisms) resistance (Acute ~07/19/18) Prostate CA (Acute) Sepsis (Acute) Vascular dialysis catheter in place (Acute) Surgical History Surgical History H/O major orthopedic surgery (Acute) Family History Family History Other CVA (cerebral vascular accident) Social History Social History Substance History: No History of Abuse Second Hand Smoke Exposure: No Smoking Status: Current every day smoker Tobacco Type: Cigarettes How Often Do You Have a Drink Containing Alcohol: Monthly or less Recent Travel in [facility] within the Last 8 Weeks: No Recent Out of Country Travel within the Last 8 Weeks: No Immunization History Tetanus Immunization: Unsure Exam Narrative Exam Narrative: GENERAL: Awake and alert, no acute distress. SKIN: Focused skin assessment warm/dry. HEAD: Atraumatic. Normocephalic. EYES: Pupils equal and round. No scleral icterus. ENT: Mucous membranes pink and moist. NECK: Trachea midline. No JVD. CARDIOVASCULAR: Regular rate and rhythm. No murmur appreciated. RESPIRATORY: No accessory muscle use. Clear to auscultation. Breath sounds equal bilaterally. GASTROINTESTINAL: Abdomen soft, non-tender, nondistended. MUSCULOSKELETAL: No obvious deformities. No clubbing. No cyanosis. Large pitting edema bilateral lower extremities. NEUROLOGICAL: Awake and alert. No obvious cranial nerve deficits. Motor grossly within normal limits. Normal speech. PSYCHIATRIC: Appropriate mood and affect; insight and judgment normal. Course Initial Documented Vital Signs Temperature 98.1 F 08/13/18 15:35 Pulse Rate 95 H 08/13/18 15:35 Respiratory Rate 18 08/13/18 15:35 Blood Pressure 143/78 H 08/13/18 15:35 Pulse Oximetry 100 08/13/18 15:35 Last Documented Vital Signs Temperature 99.6 F 08/16/18 12:00 Pulse Rate 78 08/16/18 12:00 Respiratory Rate 19 08/16/18 12:00 Blood Pressure 155/72 H 08/16/18 12:00 Pulse Oximetry 96 08/16/18 12:00 Medical Decision Making [facility] Narrative Medical decision making narrative: Patient is a 63-year-old male comes in complaining of shortness of breath. Exam shows pitting edema bilateral lower extremities. IV established, labs sent. Labs concerning for troponin of 2.31, which is much higher than previous visits. Hemoglobin is 6.8. Stool checked for occult blood is faintly positive, but is brown in color. I spoke with Dr. Alaniz of cardiology regarding this patient. He advises aspirin, 2 units of PRBCs over 4 hours, Nitropaste. He says to hold heparin at this time. He would like the patient transferred to the main hospital for further care. Patient admitted for further management. Medical Screen Exam Complete: Yes Emergency Medical Condition: Yes Differential Diagnosis Differential Diagnosis: CHF versus ACS versus pulmonary edema versus pneumonia Medical Records Medical records reviewed: Yes I reviewed the patient's medical records. Lab Data Lab results reviewed: Yes I reviewed the patient's lab results. Result diagrams: 08/16/18 06:57 08/16/18 06:57 Lab Results 08/13/18 08/13/18 08/13/18 Range/Units 17:08 17:08 17:08 CBC w Diff Slide review pending WBC 12.7 H (4.0-11.0) th/mm3 RBC 2.38 L (4.50-5.90) mil/mm3 Hgb 6.8 L* (13.0-17.0) gm/dL Hct 21.3 L (39.0-51.0) % MCV 89.8 (80.0-100.0) fL MCH 28.8 (27.0-34.0) pg MCHC 32.1 (32.0-36.0) % RDW 18.5 H (11.6-17.2) % Plt Count 219 (150-450) th/mm3 MPV 8.4 (7.0-11.0) fL Prelim Diff (Auto) Neut % (Auto) (16.0-70.0) % Lymph % (Auto) (9.0-44.0) % Bledsoe % (Auto) (0.0-8.0) % Eos % (Auto) (0.0-4.0) % Baso % (Auto) (0.0-2.0) % Neut # (Auto) (1.8-7.7) th/mm3 Lymph # (Auto) (1.0-4.8) th/mm3 Bledsoe # (Auto) (0.0-0.9) th/mm3 Eos # (Auto) (0.0-0.4) th/mm3 Baso # (Auto) (0.0-0.2) th/mm3 WBC Differential Manual diff final Seg Neuts % (Manual) 68 (16-70) % Band Neuts % (Manual) 2 (0-6) % Lymphocytes % (Manual) 23 (9-44) % Monocytes % (Manual) 7 (0-8) % Eosinophils % (Manual) (0-4) % Metamyelocytes % (Man) (0-1) % Myelocytes % (Man) (0-0) % Abs Neuts (Manual) 8.9 H (1.8-7.7) th/mm3 Nucleated RBCs/100 WBC 1 H (0-0) /100 WBC Differential Comment . Toxic Vacuolation (None) Platelet Estimate Normal (Normal) Platelet Morphology Normal (Normal) Basophilic Stippling (None) APTT 35.8 H (23.4-31.7) sec Sodium 135 L (136-145) meq/L Potassium 4.1 (3.5-5.1) meq/L Chloride 101 (98-107) meq/L Carbon Dioxide 20.9 L (21.0-32.0) meq/L Anion Gap 13 (5-15) meq/L BUN 19 H (7-18) mg/dL Creatinine 4.40 H (0.60-1.30) mg/dL Estimated GFR 14 L (>89) mL/min Random Glucose 103 (74-106) mg/dL Calcium 7.9 L (8.5-10.1) mg/dL Magnesium (1.5-2.5) mg/dL Total Bilirubin 0.3 (0.2-1.0) mg/dL AST 25 (15-37) U/L ALT 11 L (12-78) U/L Alkaline Phosphatase 1096 H (45-117) U/L Total Creatine Kinase (39-308) U/L CK-MB (CK-2) (0.5-3.6) ng/mL Troponin I 2.31 H* (0.02-0.05) ng/mL B-Natriuretic Peptide (0-100) pg/mL Total Protein 6.2 L (6.4-8.2) g/dL Albumin 2.4 L (3.4-5.0) g/dL Triglycerides (42-150) mg/dL Cholesterol (120-200) mg/dL LDL Cholesterol, Calc (0-99) mg/dL HDL Cholesterol (40.0-60.0) mg/dL Cholesterol/HDL Ratio Ratio Stool C.difficile Ag (Negative) Stool C.difficile Toxin (Negative) Stl C.difficile DNA Amp (Negative) St C. diff Tox Epid 027 (Negative) Blood Type Antibody Screen MTS Gel Crossmatch 08/13/18 08/13/18 08/13/18 Range/Units 17:08 17:08 18:30 CBC w Diff WBC (4.0-11.0) th/mm3 RBC (4.50-5.90) mil/mm3 Hgb (13.0-17.0) gm/dL Hct (39.0-51.0) % MCV (80.0-100.0) fL MCH (27.0-34.0) pg MCHC (32.0-36.0) % RDW (11.6-17.2) % Plt Count (150-450) th/mm3 MPV (7.0-11.0) fL Prelim Diff (Auto) Neut % (Auto) (16.0-70.0) % Lymph % (Auto) (9.0-44.0) % Bledsoe % (Auto) (0.0-8.0) % Eos % (Auto) (0.0-4.0) % Baso % (Auto) (0.0-2.0) % Neut # (Auto) (1.8-7.7) th/mm3 Lymph # (Auto) (1.0-4.8) th/mm3 Bledsoe # (Auto) (0.0-0.9) th/mm3 Eos # (Auto) (0.0-0.4) th/mm3 Baso # (Auto) (0.0-0.2) th/mm3 WBC Differential Seg Neuts % (Manual) (16-70) % Band Neuts % (Manual) (0-6) % Lymphocytes % (Manual) (9-44) % Monocytes % (Manual) (0-8) % Eosinophils % (Manual) (0-4) % Metamyelocytes % (Man) (0-1) % Myelocytes % (Man) (0-0) % Abs Neuts (Manual) (1.8-7.7) th/mm3 Nucleated RBCs/100 WBC (0-0) /100 WBC Differential Comment Toxic Vacuolation (None) Platelet Estimate (Normal) Platelet Morphology (Normal) Basophilic Stippling (None) APTT (23.4-31.7) sec Sodium (136-145) meq/L Potassium (3.5-5.1) meq/L Chloride (98-107) meq/L Carbon Dioxide (21.0-32.0) meq/L Anion Gap (5-15) meq/L BUN (7-18) mg/dL Creatinine (0.60-1.30) mg/dL Estimated GFR (>89) mL/min Random Glucose (74-106) mg/dL Calcium (8.5-10.1) mg/dL Magnesium 1.7 (1.5-2.5) mg/dL Total Bilirubin (0.2-1.0) mg/dL AST (15-37) U/L ALT (12-78) U/L Alkaline Phosphatase (45-117) U/L Total Creatine Kinase 118 (39-308) U/L CK-MB (CK-2) 3.3 (0.5-3.6) ng/mL Troponin I (0.02-0.05) ng/mL B-Natriuretic Peptide Greater than 5000 H (0-100) pg/mL Total Protein (6.4-8.2) g/dL Albumin (3.4-5.0) g/dL Triglycerides (42-150) mg/dL Cholesterol (120-200) mg/dL LDL Cholesterol, Calc (0-99) mg/dL HDL Cholesterol (40.0-60.0) mg/dL Cholesterol/HDL Ratio Ratio Stool C.difficile Ag (Negative) Stool C.difficile Toxin (Negative) Stl C.difficile DNA Amp (Negative) St C. diff Tox Epid 027 (Negative) Blood Type O Negative Antibody Screen Negative MTS Gel Crossmatch See Detail 08/13/18 08/13/18 08/14/18 Range/Units 19:00 22:52 06:42 CBC w Diff WBC (4.0-11.0) th/mm3 RBC (4.50-5.90) mil/mm3 Hgb (13.0-17.0) gm/dL Hct (39.0-51.0) % MCV (80.0-100.0) fL MCH (27.0-34.0) pg MCHC (32.0-36.0) % RDW (11.6-17.2) % Plt Count (150-450) th/mm3 MPV (7.0-11.0) fL Prelim Diff (Auto) Neut % (Auto) (16.0-70.0) % Lymph % (Auto) (9.0-44.0) % Bledsoe % (Auto) (0.0-8.0) % Eos % (Auto) (0.0-4.0) % Baso % (Auto) (0.0-2.0) % Neut # (Auto) (1.8-7.7) th/mm3 Lymph # (Auto) (1.0-4.8) th/mm3 Bledsoe # (Auto) (0.0-0.9) th/mm3 Eos # (Auto) (0.0-0.4) th/mm3 Baso # (Auto) (0.0-0.2) th/mm3 WBC Differential Seg Neuts % (Manual) (16-70) % Band Neuts % (Manual) (0-6) % Lymphocytes % (Manual) (9-44) % Monocytes % (Manual) (0-8) % Eosinophils % (Manual) (0-4) % Metamyelocytes % (Man) (0-1) % Myelocytes % (Man) (0-0) % Abs Neuts (Manual) (1.8-7.7) th/mm3 Nucleated RBCs/100 WBC (0-0) /100 WBC Differential Comment Toxic Vacuolation (None) Platelet Estimate (Normal) Platelet Morphology (Normal) Basophilic Stippling (None) APTT (23.4-31.7) sec Sodium 135 L (136-145) meq/L Potassium 4.0 (3.5-5.1) meq/L Chloride 104 (98-107) meq/L Carbon Dioxide 18.9 L (21.0-32.0) meq/L Anion Gap 12 (5-15) meq/L BUN 23 H (7-18) mg/dL Creatinine 4.65 H (0.60-1.30) mg/dL Estimated GFR 13 L (>89) mL/min Random Glucose 107 H (74-106) mg/dL Calcium 7.8 L (8.5-10.1) mg/dL Magnesium (1.5-2.5) mg/dL Total Bilirubin 0.7 (0.2-1.0) mg/dL AST 22 (15-37) U/L ALT 10 L (12-78) U/L Alkaline Phosphatase 1063 H (45-117) U/L Total Creatine Kinase (39-308) U/L CK-MB (CK-2) (0.5-3.6) ng/mL Troponin I 1.93 H* 2.14 H* (0.02-0.05) ng/mL B-Natriuretic Peptide (0-100) pg/mL Total Protein 5.9 L (6.4-8.2) g/dL Albumin 2.4 L (3.4-5.0) g/dL Triglycerides (42-150) mg/dL Cholesterol (120-200) mg/dL LDL Cholesterol, Calc (0-99) mg/dL HDL Cholesterol (40.0-60.0) mg/dL Cholesterol/HDL Ratio Ratio Stool C.difficile Ag Positive H (Negative) Stool C.difficile Toxin Negative (Negative) Stl C.difficile DNA Amp Positive H (Negative) St C. diff Tox Epid 027 Positive H (Negative) Blood Type Antibody Screen MTS Gel Crossmatch 08/14/18 08/15/18 08/15/18 Range/Units 06:42 05:23 05:23 CBC w Diff WBC 11.3 H 10.5 (4.0-11.0) th/mm3 RBC 3.11 L 3.03 L (4.50-5.90) mil/mm3 Hgb 9.3 L D 9.1 L (13.0-17.0) gm/dL Hct 28.0 L 26.8 L (39.0-51.0) % MCV 89.8 88.5 (80.0-100.0) fL MCH 30.0 30.0 (27.0-34.0) pg MCHC 33.4 33.9 (32.0-36.0) % RDW 17.4 H 18.0 H (11.6-17.2) % Plt Count 166 163 (150-450) th/mm3 MPV 7.4 7.7 (7.0-11.0) fL Prelim Diff (Auto) Slide review pending Slide review pending Neut % (Auto) 62.9 59.3 (16.0-70.0) % Lymph % (Auto) 30.7 33.6 (9.0-44.0) % Bledsoe % (Auto) 4.9 5.1 (0.0-8.0) % Eos % (Auto) 0.5 0.9 (0.0-4.0) % Baso % (Auto) 1.0 1.1 (0.0-2.0) % Neut # (Auto) 7.1 6.2 (1.8-7.7) th/mm3 Lymph # (Auto) 3.5 3.5 (1.0-4.8) th/mm3 Bledsoe # (Auto) 0.6 0.5 (0.0-0.9) th/mm3 Eos # (Auto) 0.1 0.1 (0.0-0.4) th/mm3 Baso # (Auto) 0.1 0.1 (0.0-0.2) th/mm3 WBC Differential Manual diff final Manual diff final Seg Neuts % (Manual) 58 53 (16-70) % Band Neuts % (Manual) 5 9 H (0-6) % Lymphocytes % (Manual) 28 30 (9-44) % Monocytes % (Manual) 5 6 (0-8) % Eosinophils % (Manual) 1 (0-4) % Metamyelocytes % (Man) 2 H (0-1) % Myelocytes % (Man) 1 H 2 H (0-0) % Abs Neuts (Manual) 7.5 6.7 (1.8-7.7) th/mm3 Nucleated RBCs/100 WBC 1 H (0-0) /100 WBC Differential Comment . . Toxic Vacuolation Present H (None) Platelet Estimate Normal Normal (Normal) Platelet Morphology Normal Normal (Normal) Basophilic Stippling Faint H (None) APTT (23.4-31.7) sec Sodium 138 (136-145) meq/L Potassium 3.4 L (3.5-5.1) meq/L Chloride 102 (98-107) meq/L Carbon Dioxide 28.7 D (21.0-32.0) meq/L Anion Gap 7 (5-15) meq/L BUN 17 (7-18) mg/dL Creatinine 3.37 H (0.60-1.30) mg/dL Estimated GFR 18 L (>89) mL/min Random Glucose 97 (74-106) mg/dL Calcium 7.9 L (8.5-10.1) mg/dL Magnesium (1.5-2.5) mg/dL Total Bilirubin 0.3 (0.2-1.0) mg/dL AST 20 (15-37) U/L ALT 8 L (12-78) U/L Alkaline Phosphatase 985 H (45-117) U/L Total Creatine Kinase (39-308) U/L CK-MB (CK-2) (0.5-3.6) ng/mL Troponin I (0.02-0.05) ng/mL B-Natriuretic Peptide (0-100) pg/mL Total Protein 5.3 L D (6.4-8.2) g/dL Albumin 2.2 L (3.4-5.0) g/dL Triglycerides 120 (42-150) mg/dL Cholesterol 119 L (120-200) mg/dL LDL Cholesterol, Calc 54 (0-99) mg/dL HDL Cholesterol 40.9 (40.0-60.0) mg/dL Cholesterol/HDL Ratio 2.90 Ratio Stool C.difficile Ag (Negative) Stool C.difficile Toxin (Negative) Stl C.difficile DNA Amp (Negative) St C. diff Tox Epid 027 (Negative) Blood Type Antibody Screen MTS Gel Crossmatch 08/16/18 08/16/18 Range/Units 06:57 06:57 CBC w Diff WBC 9.5 (4.0-11.0) th/mm3 RBC 3.02 L (4.50-5.90) mil/mm3 Hgb 9.2 L (13.0-17.0) gm/dL Hct 26.9 L (39.0-51.0) % MCV 89.0 (80.0-100.0) fL MCH 30.4 (27.0-34.0) pg MCHC 34.2 (32.0-36.0) % RDW 18.3 H (11.6-17.2) % Plt Count 150 (150-450) th/mm3 MPV 7.3 (7.0-11.0) fL Prelim Diff (Auto) Neut % (Auto) 66.9 (16.0-70.0) % Lymph % (Auto) 25.6 (9.0-44.0) % Bledsoe % (Auto) 6.3 (0.0-8.0) % Eos % (Auto) 0.8 (0.0-4.0) % Baso % (Auto) 0.4 (0.0-2.0) % Neut # (Auto) 6.3 (1.8-7.7) th/mm3 Lymph # (Auto) 2.4 (1.0-4.8) th/mm3 Bledsoe # (Auto) 0.6 (0.0-0.9) th/mm3 Eos # (Auto) 0.1 (0.0-0.4) th/mm3 Baso # (Auto) 0.0 (0.0-0.2) th/mm3 WBC Differential . Seg Neuts % (Manual) (16-70) % Band Neuts % (Manual) (0-6) % Lymphocytes % (Manual) (9-44) % Monocytes % (Manual) (0-8) % Eosinophils % (Manual) (0-4) % Metamyelocytes % (Man) (0-1) % Myelocytes % (Man) (0-0) % Abs Neuts (Manual) (1.8-7.7) th/mm3 Nucleated RBCs/100 WBC (0-0) /100 WBC Differential Comment Auto diff final Toxic Vacuolation (None) Platelet Estimate (Normal) Platelet Morphology (Normal) Basophilic Stippling (None) APTT (23.4-31.7) sec Sodium 140 (136-145) meq/L Potassium 3.8 (3.5-5.1) meq/L Chloride 105 (98-107) meq/L Carbon Dioxide 25.7 (21.0-32.0) meq/L Anion Gap 9 (5-15) meq/L BUN 23 H (7-18) mg/dL Creatinine 4.17 H (0.60-1.30) mg/dL Estimated GFR 14 L (>89) mL/min Random Glucose 111 H (74-106) mg/dL Calcium 7.7 L (8.5-10.1) mg/dL Magnesium (1.5-2.5) mg/dL Total Bilirubin 0.3 (0.2-1.0) mg/dL AST 60 H (15-37) U/L ALT 8 L (12-78) U/L Alkaline Phosphatase 1043 H (45-117) U/L Total Creatine Kinase (39-308) U/L CK-MB (CK-2) (0.5-3.6) ng/mL Troponin I (0.02-0.05) ng/mL B-Natriuretic Peptide (0-100) pg/mL Total Protein 5.3 L (6.4-8.2) g/dL Albumin 2.2 L (3.4-5.0) g/dL Triglycerides (42-150) mg/dL Cholesterol (120-200) mg/dL LDL Cholesterol, Calc (0-99) mg/dL HDL Cholesterol (40.0-60.0) mg/dL Cholesterol/HDL Ratio Ratio Stool C.difficile Ag (Negative) Stool C.difficile Toxin (Negative) Stl C.difficile DNA Amp (Negative) St C. diff Tox Epid 027 (Negative) Blood Type Antibody Screen MTS Gel Crossmatch Imaging Data Radiologist's impression: Chest X-Ray 08/13/18 16:19 CONCLUSION: 1. Cardiomegaly with pulmonary vascular congestion. 2. Mild airspace disease in the left lower lung zone with associated probable trace pleural effusion. ECG Data EKG Prior to Arrival: No Attestation: I personally reviewed and interpreted this ECG as follows: Interpretation: ECG shows normal sinus rhythm at a rate of 88. There is 1 mm of elevation in lead V3. Discharge Plan Discharge Disposition Patient Disposition: W/Home Health Service Discharge Condition Condition: Good Discharge Order Discharge Orders: Discharge Order (Routine); Ordered 08/16/18 Ordered By: Mason Alfonso Discharge Details Anticipated Discharge Date: 08/16/18 Discharge Comment: Avoid NSAIDS (Ibuprofen, Naproxen etc), Aspirin. Acetaminophen (Tylenol) is okay. Physicians Team ED Provider: Suzy Cope Primary Care Provider: Primary Care Theodora,Bhavani Attending Provider: Mason Alfonso Other Providers: Curt Alaniz ; Karena Duval ; Wayne Naidu Status ED Status: Left Department Discharge Information Discharge Date/Time: 08/13/18 21:15
[2018-08-13] MEDS ORDERED: Sodium Chlor 0.9% Inj 250 ML IV.SIG SCH (19:00)
[2018-08-13] MEDS ORDERED: Sod Chloride 0.9% Inj 1,000 ML OTHER PRN ×2 (22:44)
[2018-08-13] MEDS ORDERED: Acetaminophen 325 MG Tablet PO PRN (22:44)
[2018-08-13] MEDS ORDERED: Albumin Human 25% Inj 100 ML IV.SIG PRN (22:44)
[2018-08-13] MEDS ORDERED: Sod Chloride 0.9% Inj 1,000 ML IV.CONT PRN (22:44)
[2018-08-13] MEDS ORDERED: Gelatin 12 MM/7 MM Topical Foam TOPICAL PRN (22:44)
[2018-08-13] MEDS ORDERED: Heparin 10,000 UNITS/10 ML Vial (for IV use) OTHER PRN (22:44)
--- NOTE | 2018-08-13 22:54 | P.HPIM ---
History of Present Illness Service: [facility] Primary Care Physician: No Primary Care Physician Chief Complaint: Shortness of breath History of Present Illness: Mr. Ross is a 63-year-old male with a past medical history of end-stage renal disease on hemodialysis Tuesday and Fridays, anemia, hypertension, prostate cancer, and resistant C. difficile who presented to the emergency room and [place] complaining of shortness of breath with a slight cough. He was found to have a troponin of 2.31, hemoglobin of 6.8, stool with faintly positive occult blood, severe pitting lower extremity edema and a BNP greater than 5000. The emergency room physician discussed the case with Dr. Alaniz, railroad crossing protection maintainer, and the decision was made that the patient should be transferred to the [facility] hospital, heparin to be held for now, and 2 units of packed red blood cells were to be given over 4 hours. Chest x-ray showed cardiomegaly with pulmonary vascular congestion, mild airspace disease in the left lower lung zone with associated probable trace pleural effusion. No Lasix was given in [place]. The patient does produce urine. The patient was seen shortly after his arrival in the CDU. Oxygen saturation is 99% on 2 L nasal cannula. First unit of blood is transfusing the patient continues to endorse shortness of breath. He reports that shortness of breath started 4 days ago and has been present with exertion since that time. He presented to the emergency room as it persisted and worsened. He states he is feeling better since arrival at the [facility]. He denies any chest pain. He denies any recent fever or chills. He reports recent diagnosis with resistant seed difficile and states he completed 5 days of treatment but was unable to tolerate any further. He denies any diarrhea. He denies any hematemesis, hematuria, or hematochezia. He denies melena. He reports swelling in his lower extremities started about 5 days ago and preceded his symptom of shortness of breath. He complains of poor appetite and nausea. He denies vomiting. Inpatient Certification: I certify that the inpatient services were ordered in accordance with Medicare regulations governing the order. This includes certification that hospital inpatient services are reasonable and necessary and in the case of services not specified as inpatient-only under 42 CFR 419.22(n), that they are appropriately provided as inpatient services in accordance to with the 2-midnight benchmark under 43 CFR 412.3(e) Estimated Total Length of Stay (Days): 2 Plans for Post Hospital Care: Not yet determined Review of Systems All other systems reviewed negative except as stated in HPI [facility] - History History Provided By: Patient - Medical History Medical History: Medical History (Last Reviewed 08/13/18 @ 23:12 by ANN Ayers) Acute renal failure Acute renal failure on dialysis Anemia Dyspnea Fistula Hypertension Kidney stone MDRO (multiple drug resistant organisms) resistance Onset Date: ~07/19/18 Prostate CA Sepsis Vascular dialysis catheter in place - Surgical History Surgical History: Surgical History (Last Reviewed 08/13/18 @ 23:12 by ANN Ayers) H/O major orthopedic surgery - Family History Family History: Family History (Last Updated 08/14/18 @ 01:00 by ANN Ayers) Other CVA (cerebral vascular accident) - Social History I have reviewed the patient's Social History: Yes - Tobacco History Second Hand Smoke Exposure: No Tobacco Use In Past 30 Days: Yes Smoking Status: Current every day smoker Tobacco Type: Cigarettes - Alcohol History How Often Do You Have a Drink Containing Alcohol: Monthly or less - Substance Use History Substance History: No History of Abuse - Travel History Recent Travel in the [place] Within the Last 8 Weeks: No Recent Travel Out of the Country Within the Last 8 Weeks: No - Immunization History Tetanus Immunization: Unsure Medications and Allergies Active Medications: Active Medications Acetaminophen (Tylenol) 650 mg PO UNSCH PRN PRN Reason: SEE LABEL COMMENTS Bicalutamide (Casodex) 50 mg PO HS CYNDIE Clonidine HCl (Catapres) 0.1 mg PO UNSCH PRN PRN Reason: SEE LABEL COMMENTS Diphenhydramine HCl (Benadryl) 25 mg PO UNSCH PRN PRN Reason: SEE LABEL COMMENTS Epoetin Hermes (Epogen Inj) 10,000 unit IV.PUSH UNSCH PRN PRN Reason: SEE LABEL COMMENTS Gelatin (Gelfoam 12 Mm/7 Mm Topical) 1 foam TOPICAL PRN PRN PRN Reason: help stop bleeding from site Gentamicin Sulfate (Gentamicin Inj) 20 mg OTHER WITH DIALYSIS PRN PRN Reason: Dwell Gentamycin Lock Heparin Sodium (Porcine) (Heparin Inj) 8,000 units OTHER WITH DIALYSIS PRN PRN Reason: for machine prime Heparin Sodium (Porcine) (Heparin Inj) 1,000 units OTHER WITH DIALYSIS PRN PRN Reason: Dwell Heparin to Fill Catheter Sodium Chloride (Ns Inj) 250 mls @ 15 mls/hr IV.SIG ONCE CYNDIE Stop: 08/14/18 11:39 Albumin Human (Flexbumin 25% Inj) 100 mls @ 60 mls/hr IV.SIG WITH DIALYSIS PRN PRN Reason: hypotension / volume replace Sodium Chloride (Ns Inj) 1,000 mls @ 0 mls/hr OTHER .Q0M PRN PRN Reason: for prime and rinse back Sodium Chloride (Ns Inj) 1,000 mls @ 200 mls/hr OTHER .Q5H PRN PRN Reason: for dialyzer flush PRN Sodium Chloride (Ns Inj) 1,000 mls @ 0 mls/hr IV.CONT .Q0M PRN PRN Reason: hypotension / volume replace Mannitol (Mannitol Inj) 12.5 gm IV.PUSH UNSCH PRN PRN Reason: hypotension / volume replace Nitroglycerin (Nitrostat Sl) 0.4 mg SL Q5M PRN PRN Reason: CHEST PAIN Ondansetron HCl (Zofran Inj) 4 mg IV.PUSH UNSCH PRN PRN Reason: NAUSEA OR VOMITING Sodium Chloride (Ns Flush) 2 ml IV.FLUSH BID CYNDIE Last Admin: 08/13/18 21:00 Dose: 2 ml Sodium Chloride (Ns Flush) 2 ml IV.FLUSH PRN PRN PRN Reason: FLUSH AFTER USING IV ACCESS Sodium Chloride (Ns Flush) 5 ml IV.FLUSH PRN PRN PRN Reason: flush each lumen during HD Tamsulosin HCl (Flomax) 0.4 mg PO DAILY CYNDIE Allergies Allergy/AdvReac Type Severity Reaction Status Date / Time Tetanus Vaccines and Toxoid Allergy Severe Fever Verified 08/13/18 15:46 amoxicillin AdvReac Mild Nausea/Vomi Verified 08/13/18 15:46 ting Home Medications Medication Instructions Recorded Confirmed Type bicalutamide 50 mg PO HS 07/09/18 08/13/18 History tamsulosin [Flomax] 0.4 mg PO DAILY 07/09/18 08/13/18 History aspirin 325 mg PO DAILY 08/13/18 08/13/18 History Exam Vital signs: Vital Signs 08/13/18 15:35 08/13/18 17:09 08/13/18 17:12 Temperature 98.1 F Pulse Rate 95 H 78 Respiratory Rate 18 Blood Pressure 143/78 H Pulse Oximetry 100 97 08/13/18 17:25 08/13/18 17:29 08/13/18 19:00 Temperature Pulse Rate 88 90 Respiratory Rate 18 Blood Pressure 152/88 H Pulse Oximetry 97 97 08/13/18 20:00 08/13/18 21:15 08/13/18 22:19 Temperature 98.1 F Pulse Rate 88 100 H 86 Respiratory Rate 20 20 20 Blood Pressure 148/79 H 148/87 H 143/84 H Pulse Oximetry 99 100 08/13/18 22:22 Temperature Pulse Rate Respiratory Rate Blood Pressure Pulse Oximetry 100 Intake & Output 08/13/18 08/13/18 08/14/18 06:59 18:59 06:59 Intake Total 0 / 0 Balance 0 / 0 Weight 84 kg Intake: Intake (Blood Product) Amt 0 / 0 Rbc As-3 Leukoreduced Unit 0 / 0 [id number] Narrative: GENERAL: This is a thin, chronically ill appearing older male patient, with mild tachypnea noted. SKIN: No rashes. Cool and dry. Multiple bruises in various stages of healing noted on upper extremities. HEAD: Atraumatic. Normocephalic. EYES: No scleral icterus. No injection or drainage. ENT: Nose without bleeding, purulent drainage. NECK: Trachea midline. No JVD or lymphadenopathy. CARDIOVASCULAR: Regular rate and rhythm without murmurs. +3 pitting ankle edema. RESPIRATORY: Breath sounds diminished at bases, equal bilaterally. No wheezes, rales, or rhonchi. GASTROINTESTINAL: Abdomen soft, non-tender, nondistended. No guarding. MUSCULOSKELETAL: Extremities without clubbing, cyanosis. No calf tenderness. NEUROLOGICAL: Awake and alert. Motor and sensory grossly within normal limits. Normal speech. . Results - Labs CBC & Chem 7: 08/13/18 17:08 08/13/18 17:08 Labs: Short CBC 08/13/18 Range/Units 17:08 WBC 12.7 H (4.0-11.0) th/mm3 Hgb 6.8 L* (13.0-17.0) gm/dL Hct 21.3 L (39.0-51.0) % Plt Count 219 (150-450) th/mm3 [facility] 08/13/18 17:08 Sodium 135 L Potassium 4.1 Chloride 101 Carbon Dioxide 20.9 L BUN 19 H Creatinine 4.40 H Calcium 7.9 L Cardiac Enzymes 08/13/18 08/13/18 Range/Units 17:08 17:08 Total Creatine Kinase 118 (39-308) U/L CK-MB (CK-2) 3.3 (0.5-3.6) ng/mL Troponin I 2.31 H* (0.02-0.05) ng/mL Liver Function 08/13/18 Range/Units 17:08 Total Bilirubin 0.3 (0.2-1.0) mg/dL AST 25 (15-37) U/L ALT 11 L (12-78) U/L Alkaline Phosphatase 1096 H (45-117) U/L Albumin 2.4 L (3.4-5.0) g/dL - Imaging Impressions Chest X-Ray 08/13/18 16:19 CONCLUSION: 1. Cardiomegaly with pulmonary vascular congestion. 2. Mild airspace disease in the left lower lung zone with associated probable trace pleural effusion. Caprini VTE Risk Assessment Caprini VTE Risk Assessment: Moderate/High Risk (score >= 2) VTE Pharmacological Exception Reason: High risk for bleeding VTE Mechanical Exception: Severe LE edema Caprini Risk Assessment Model: Point Value = 1 Point Value = 2 Point Value = 3 Point Value = 5 Age 41-60 Minor surgery BMI > 25 kg/m2 Swollen legs Varicose veins or History of unexplained or recurrent spontaneous Oral contraceptives or hormone replacement Sepsis (< 1 month) Serious lung disease, including pneumonia (< 1 month) Abnormal pulmonary function Acute myocardial infarction Congestive heart failure (< 1 month) History of inflammatory bowel disease Medical patient at bed rest Age 61-74 Arthroscopic surgery Major open surgery (> 45 min) Laparoscopic surgery (> 45 min) Malignancy Confined to bed (> 72 hours) Immobilizing plaster cast Central venous access Age >= 75 History of VTE Family history of VTE Factor V Leiden Prothrombin [id number] Lupus anticoagulant Anticardiolipin antibodies Elevated serum homocysteine Heparin-induced thrombocytopenia Other congenital or acquired thrombophilia Stroke (< 1 month) Elective arthroplasty Hip, pelvis, or leg fracture Acute spinal cord injury (< 1 month) Prophylaxis Regimen: Total Risk Factor Score Risk Level Prophylaxis Regimen 0-1 Low Early ambulation 2 Moderate Order ONE of the following: *Sequential Compression Device (SCD) *Heparin 5000 units SQ BID 3-4 Higher Order ONE of the following medications: *Heparin 5000 units SQ TID *Enoxaparin/Lovenox 40 mg SQ daily (WT < 150 kg, CrCl > 30 mL/min) *Enoxaparin/Lovenox 30 mg SQ daily (WT < 150 kg, CrCl > 10-29 mL/min) *Enoxaparin/Lovenox 30 mg SQ BID (WT < 150 kg, CrCl > 30 mL/min) AND/OR *Sequential Compression Device (SCD) 5 or more Highest Order ONE of the following medications: *Heparin 5000 units SQ TID (Preferred with Epidurals) *Enoxaparin/Lovenox 40 mg SQ daily (WT < 150 kg, CrCl > 30 mL/min) *Enoxaparin/Lovenox 30 mg SQ daily (WT < 150 kg, CrCl > 10-29 mL/min) *Enoxaparin/Lovenox 30 mg SQ BID (WT < 150 kg, CrCl > 30 mL/min) AND *Sequential Compression Device (SCD) Assessment and Plan - Plan Mr. Ross is a 63-year-old male with a past medical history of end-stage renal disease on hemodialysis Tuesday and Fridays, anemia, hypertension, prostate cancer, and resistant C. difficile who presented to the emergency room and [place] complaining of shortness of breath with a slight cough. He was found to have a troponin of 2.31, hemoglobin of 6.8, stool with faintly positive occult blood, severe pitting lower extremity edema and a BNP greater than 5000. The patient was transferred to the [facility] hospital under the hospitalist service for further evaluation and management. NSTEMI -Troponin I first reading - 2.31 -Case was discussed with cardiology by ER physician -heparin being held for now -Consult to cardiology -appreciate assistance -Continue topical nitropaste -Monitor further serial cardiac enzymes and EKGs Pulmonary Edema -Chest x-ray personally reviewed and shows cardiomegaly with pulmonary vascular congestion and left lower lobe airspace disease associated with trace pleural effusion; BNP greater than 5000 -Patient continues to be short of breath, blood transfusion has been initiated, we will give Lasix 40 mg IV now -We will give Lasix in between units of blood as well -Continue supplemental oxygen and monitoring of pulse oximetry Acute on chronic anemia with concern for GI bleed -Hemoglobin 6.8 on admission, was 8.6 on 07/22/2018 -Continue blood transfusion but give Lasix 20 mg IV in between units given pulmonary vascular congestion on chest x-ray -Recheck hemoglobin and hematocrit following blood transfusion and transfuse as necessary -Stool was weakly positive for occult blood in ER -Consult gastroenterology for possible GI bleed -appreciate assistance End-stage renal disease on hemodialysis Tuesday, Tuesday, & Fridays -Patient still produces urine -BUN 19, creatinine 4.40, estimated GFR 14 -Consult nephrology -appreciate assistance -Monitor renal functions Malnutrition -consult loss prevention detective for supplemental recommendations -consider appetite stimulant History of resistant C. difficile -C. difficile testing pending History of prostate cancer -Continue bicalutamide and tamsulosin DVT prophylaxis -chemoprophylaxis contraindicated due to anemia -SCDs contraindicated due to severe pitting edema in bilateral lower extremities Discussed Condition With: Dr. Adams, patient, and RN .
[2018-08-14 06:52] LABS: Baso # (Auto) 0.1 th/mm3 (0.0-0.2); Eos # (Auto) 0.1 th/mm3 (0.0-0.4); Eos % (Auto) 0.5 % (0.0-4.0); Hemoglobin 9.3 gm/dL (13.0-17.0); Lymph # (Auto) 3.5 th/mm3 (1.0-4.8); Lymph % (Auto) 30.7 % (9.0-44.0); Mean Corpuscular HGB Conc 33.4 % (32.0-36.0); Mean Corpuscular Volume 89.8 fL (80.0-100.0); Mean Platelet Volume 7.4 fL (7.0-11.0); Mono # (Auto) 0.6 th/mm3 (0.0-0.9); Mono % (Auto) 4.9 % (0.0-8.0); Neut # (Auto) 7.1 th/mm3 (1.8-7.7); Neut % (Auto) 62.9 % (16.0-70.0); Platelet Count 166 th/mm3 (150-450); Red Blood Count 3.11 mil/mm3 (4.50-5.90); Red Cell Distribution Width 17.4 % (11.6-17.2); White Blood Count 11.3 th/mm3 (4.0-11.0)
[2018-08-14 07:09] LABS: Alanine Aminotransferase 10 U/L (12-78); Albumin 2.4 g/dL (3.4-5.0); Anion Gap 12 meq/L (5-15); Aspartate Aminotransferase 22 U/L (15-37); Blood Urea Nitrogen 23 mg/dL (7-18); Calcium 7.8 mg/dL (8.5-10.1); Carbon Dioxide 18.9 meq/L (21.0-32.0); Chloride 104 meq/L (98-107); Glomerular Filtration Rate 13 mL/min (>89); Glucose,Random 107 mg/dL (74-106); Sodium 135 meq/L (136-145)
[2018-08-14 07:24] LABS: Alkaline Phosphatase 1063 U/L (45-117); Total Protein 5.9 g/dL (6.4-8.2)
[2018-08-14 07:32] LABS: Troponin I 2.14 ng/mL (0.02-0.05)
[2018-08-14 08:58] LABS: Eosinophils 1 % (0-4); Lymphocytes 28 % (9-44); Metamyelocytes 2 % (0-1); Monocytes 5 % (0-8); Myelocytes 1 % (0-0); Platelet Estimate Normal (Normal); Platelet Morphology Normal (Normal); Tallied Nucleated RBC 1 (0-0)
[2018-08-14] MEDS ORDERED: Aspirin 325 MG Tablet PO SCH (09:00)
--- NOTE | 2018-08-14 11:18 | P.PN ---
Subjective Interval history: Follow-up non-ST elevation [place] August 14, 2018-patient seen and examined, he was in dialysis. Denies any chest pain or shortness of breath. Vitals stable. Physical Exam Vital signs: Vital Signs 08/13/18 15:35 08/13/18 17:09 08/13/18 17:12 Temperature 98.1 F Pulse Rate 95 H 78 Respiratory Rate 18 Blood Pressure 143/78 H Pulse Oximetry 100 97 08/13/18 17:25 08/13/18 17:29 08/13/18 19:00 Temperature Pulse Rate 88 90 Respiratory Rate 18 Blood Pressure 152/88 H Pulse Oximetry 97 97 08/13/18 20:00 08/13/18 21:15 08/13/18 22:19 Temperature 98.1 F Pulse Rate 88 100 H 86 Respiratory Rate 20 20 20 Blood Pressure 148/79 H 148/87 H 143/84 H Pulse Oximetry 99 100 08/13/18 22:22 08/13/18 22:35 08/13/18 22:50 Temperature 98.1 F 98.2 F Pulse Rate 83 84 Respiratory Rate 20 20 Blood Pressure 142/81 H 144/79 H Pulse Oximetry 100 100 100 08/13/18 23:00 08/13/18 23:10 08/13/18 23:59 Temperature 98 F Pulse Rate 83 86 Respiratory Rate 18 Blood Pressure 142/83 H Pulse Oximetry 99 08/14/18 00:00 08/14/18 01:00 08/14/18 01:23 Temperature 98.1 F 98.2 F Pulse Rate 92 H 89 90 Respiratory Rate 18 20 Blood Pressure 144/95 H 146/86 H Pulse Oximetry 100 99 08/14/18 01:30 08/14/18 01:45 08/14/18 02:00 Temperature 97.5 F L 97.8 F 97.9 F Pulse Rate 92 H 92 H 88 Respiratory Rate 20 20 18 Blood Pressure 149/90 H 149/89 H 150/87 H Pulse Oximetry 99 99 99 08/14/18 02:30 08/14/18 03:00 08/14/18 04:00 Temperature 98 F 98 F Pulse Rate 93 H 91 H 87 Respiratory Rate 18 18 Blood Pressure 153/92 H 146/87 H Pulse Oximetry 100 100 08/14/18 04:30 08/14/18 05:00 08/14/18 06:00 Temperature 98.1 F Pulse Rate 84 89 88 Respiratory Rate 20 Blood Pressure 153/90 H Pulse Oximetry 100 08/14/18 07:00 08/14/18 08:00 08/14/18 09:00 Temperature 97.9 F Pulse Rate 120 H 81 84 Respiratory Rate 18 Blood Pressure 155/94 H Pulse Oximetry 100 08/14/18 09:58 Temperature Pulse Rate 81 Respiratory Rate Blood Pressure Pulse Oximetry Intake & Output 08/13/18 08/14/18 08/14/18 18:59 06:59 18:59 Intake Total 800 / 800 Output Total 800 / 800 Balance 0 / 0 Weight 84 kg 76.5 kg Intake: Intake (Blood Product) Amt 800 / 800 Rbc As-3 Leukoreduced Unit 400 / 400 [id number] Rbc As-3 Leukoreduced Unit 400 / 400 [id number] Output: Urine 800 / 800 Other: Date of Last Bowel Movement 08/14/18 # Bowel Movements 1 Narrative: GENERAL: NAD and hooked up to HD machine SKIN: No rashes. Cool and dry. Multiple bruises in various stages of healing noted on upper extremities. HEAD: Atraumatic. Normocephalic. EYES: No scleral icterus. No injection or drainage. ENT: Nose without bleeding, purulent drainage. NECK: Trachea midline. No JVD or lymphadenopathy. CARDIOVASCULAR: Regular rate and rhythm without murmurs. +2 pitting ankle edema. RESPIRATORY: Breath sounds diminished at bases, equal bilaterally. No wheezes, rales, or rhonchi. GASTROINTESTINAL: Abdomen soft, non-tender, nondistended. No guarding. MUSCULOSKELETAL: Extremities without clubbing, cyanosis. No calf tenderness. NEUROLOGICAL: Awake and alert. Motor and sensory grossly within normal limits. Normal speech. . Results - Labs CBC & Chem 7: 08/14/18 06:42 08/14/18 06:42 Laboratory Results - last 24 hr 08/13/18 08/13/18 08/13/18 17:08 17:08 17:08 CBC w Diff Slide review pending WBC 12.7 H RBC 2.38 L Hgb 6.8 L* Hct 21.3 L MCV 89.8 MCH 28.8 MCHC 32.1 RDW 18.5 H Plt Count 219 MPV 8.4 Prelim Diff (Auto) Neut % (Auto) Lymph % (Auto) [place] % (Auto) Eos % (Auto) Baso % (Auto) Neut # (Auto) Lymph # (Auto) [place] # (Auto) Eos # (Auto) Baso # (Auto) WBC Differential Manual diff final Seg Neuts % (Manual) 68 Band Neuts % (Manual) 2 Lymphocytes % (Manual) 23 Monocytes % (Manual) 7 Eosinophils % (Manual) Metamyelocytes % (Man) Myelocytes % (Man) Abs Neuts (Manual) 8.9 H Nucleated RBCs/100 WBC 1 H Differential Comment . Platelet Estimate Normal Platelet Morphology Normal APTT 35.8 H Sodium 135 L Potassium 4.1 Chloride 101 Carbon Dioxide 20.9 L Anion Gap 13 BUN 19 H Creatinine 4.40 H Estimated GFR 14 L Random Glucose 103 Calcium 7.9 L Magnesium Total Bilirubin 0.3 AST 25 ALT 11 L Alkaline Phosphatase 1096 H Total Creatine Kinase CK-MB (CK-2) Troponin I 2.31 H* B-Natriuretic Peptide Total Protein 6.2 L Albumin 2.4 L Blood Type Antibody Screen MTS Gel Crossmatch 08/13/18 08/13/18 08/13/18 17:08 17:08 18:30 CBC w Diff WBC RBC Hgb Hct MCV MCH MCHC RDW Plt Count MPV Prelim Diff (Auto) Neut % (Auto) Lymph % (Auto) [place] % (Auto) Eos % (Auto) Baso % (Auto) Neut # (Auto) Lymph # (Auto) [place] # (Auto) Eos # (Auto) Baso # (Auto) WBC Differential Seg Neuts % (Manual) Band Neuts % (Manual) Lymphocytes % (Manual) Monocytes % (Manual) Eosinophils % (Manual) Metamyelocytes % (Man) Myelocytes % (Man) Abs Neuts (Manual) Nucleated RBCs/100 WBC Differential Comment Platelet Estimate Platelet Morphology APTT Sodium Potassium Chloride Carbon Dioxide Anion Gap BUN Creatinine Estimated GFR Random Glucose Calcium Magnesium 1.7 Total Bilirubin AST ALT Alkaline Phosphatase Total Creatine Kinase 118 CK-MB (CK-2) 3.3 Troponin I B-Natriuretic Peptide Greater than 5000 H Total Protein Albumin Blood Type O Negative Antibody Screen Negative MTS Gel Crossmatch See Detail 08/13/18 08/14/18 08/14/18 22:52 06:42 06:42 CBC w Diff WBC 11.3 H RBC 3.11 L Hgb 9.3 L D Hct 28.0 L MCV 89.8 MCH 30.0 MCHC 33.4 RDW 17.4 H Plt Count 166 MPV 7.4 Prelim Diff (Auto) Slide review pending Neut % (Auto) 62.9 Lymph % (Auto) 30.7 [place] % (Auto) 4.9 Eos % (Auto) 0.5 Baso % (Auto) 1.0 Neut # (Auto) 7.1 Lymph # (Auto) 3.5 [place] # (Auto) 0.6 Eos # (Auto) 0.1 Baso # (Auto) 0.1 WBC Differential Manual diff final Seg Neuts % (Manual) 58 Band Neuts % (Manual) 5 Lymphocytes % (Manual) 28 Monocytes % (Manual) 5 Eosinophils % (Manual) 1 Metamyelocytes % (Man) 2 H Myelocytes % (Man) 1 H Abs Neuts (Manual) 7.5 Nucleated RBCs/100 WBC 1 H Differential Comment . Platelet Estimate Normal Platelet Morphology Normal APTT Sodium 135 L Potassium 4.0 Chloride 104 Carbon Dioxide 18.9 L Anion Gap 12 BUN 23 H Creatinine 4.65 H Estimated GFR 13 L Random Glucose 107 H Calcium 7.8 L Magnesium Total Bilirubin 0.7 AST 22 ALT 10 L Alkaline Phosphatase 1063 H Total Creatine Kinase CK-MB (CK-2) Troponin I 1.93 H* 2.14 H* B-Natriuretic Peptide Total Protein 5.9 L Albumin 2.4 L Blood Type Antibody Screen MTS Gel Crossmatch - Imaging Impressions Chest X-Ray 08/13/18 16:19 CONCLUSION: 1. Cardiomegaly with pulmonary vascular congestion. 2. Mild airspace disease in the left lower lung zone with associated probable trace pleural effusion. Assessment and Plan - Plan 63-year-old man with NSTEMI -Continue ACS ruled out per protocol -Heparin currently on hold per cardiology -Consultation to cardiology pending -Continue topical nitropaste Pulmonary Edema Acute on chronic diastolic CHF exacerbation -Currently on Lasix IV Acute on chronic anemia with concern for GI bleed -Status post 2 unit packed red blood cells transfused -Consult gastroenterology for possible GI bleed -appreciate assistance -Continue to monitor H&H End-stage renal disease on hemodialysis Tuesday, Tuesday, & Fridays -Hemodialysis per nephrology -Monitor renal functions Malnutrition -consult river expedition guide for supplemental recommendations History of resistant C. difficile -C. difficile testing pending History of prostate cancer -Continue bicalutamide and tamsulosin DVT prophylaxis -chemoprophylaxis contraindicated due to anemia -SCDs contraindicated due to severe pitting edema in bilateral lower extremities
[2018-08-14] MEDS: Heparin 10,000 UNITS/10 ML Vial (for IV use) OTHER PRN (12:19)
--- NOTE | 2018-08-14 12:31 | P.CONGI ---
History of Present Illness Consult date: 08/14/18 Consult reason: Concern for GI bleed Chief complaint: NSTEMI, Anemia History of Present Illness: This patient is a 63-year-old male with past medical history of end-stage renal disease, anemia, hypertension, prostate cancer and resistant C. difficile. Patient presented to the emergency room with complaint of shortness of breath and cough. At that time he was found to have elevated troponin, hemoglobin 6.8 with stool faintly positive for occult blood, lower extremity edema with a BNP greater than 5000. Patient denies hematemesis, hematuria or hematochezia. Patient also denies melena. Upon consultation, patient reports that he has had nausea for 1 month with poor appetite. Patient denies any difficulty swallowing, odynophagia or heartburn. Patient denies ever having had an EGD or colonoscopy in the past and states that he would not be agreeable to have either one done at this time. Of note, patient does report that he takes aspirin 325 mg p.o. 3 times a week for joint pain. Patient denies any known family history for gastrointestinal disorders. Patient states that he smokes 6 cigarettes daily and drinks 1 vodka with fruit juice drink every night with dinner. Our service has been consulted to evaluate patient for possible GI bleeding. <Nancy Patterson - Last Filed: 08/14/18 12:33> Review of Systems All other systems reviewed negative except as stated in HPI <Nancy Patterson - Last Filed: 08/14/18 12:33> PMFSH - History History Provided By: Patient - Medical History Medical History: Medical History (Last Reviewed 08/13/18 @ 23:12 by ANN Ayers) Acute renal failure Acute renal failure on dialysis Anemia Dyspnea Fistula Hypertension Kidney stone MDRO (multiple drug resistant organisms) resistance Onset Date: ~07/19/18 Prostate CA Sepsis Vascular dialysis catheter in place - Surgical History Surgical History: Surgical History (Last Reviewed 08/13/18 @ 23:12 by NAN Ayers) H/O major orthopedic surgery - Family History Family History: Family History (Last Updated 08/14/18 @ 01:00 by ANN Ayers) Other CVA (cerebral vascular accident) - Tobacco History Second Hand Smoke Exposure: No Tobacco Use In Past 30 Days: Yes Smoking Status: Current every day smoker Tobacco Type: Cigarettes - Alcohol History How Often Do You Have a Drink Containing Alcohol: Monthly or less - Substance Use History Substance History: No History of Abuse - Travel History Recent Travel in the [place] Within the Last 8 Weeks: No Recent Travel Out of the Country Within the Last 8 Weeks: No - Immunization History Tetanus Immunization: Unsure <Nancy Patterson - Last Filed: 08/14/18 12:33> - Medical History Medical History: Medical History (Last Reviewed 08/13/18 @ 23:12 by ANN Ayers) Acute renal failure Acute renal failure on dialysis Anemia Dyspnea Fistula Hypertension Kidney stone MDRO (multiple drug resistant organisms) resistance Onset Date: ~07/19/18 Prostate CA Sepsis Vascular dialysis catheter in place - Surgical History Surgical History: Surgical History (Last Reviewed 08/13/18 @ 23:12 by ANN Ayers) H/O major orthopedic surgery - Family History Family History: Family History (Last Updated 08/14/18 @ 01:00 by ANN Ayers) Other CVA (cerebral vascular accident) <Wayne Naidu - Last Filed: 08/14/18 17:19> Medications and Allergies Active Medications: Active Medications Acetaminophen (Tylenol) 650 mg PO UNSCH PRN PRN Reason: SEE LABEL COMMENTS Aspirin (Aspirin) 325 mg PO DAILY CY[facility] Bicalutamide (Casodex) 50 mg PO HS [facility] Clonidine HCl (Catapres) 0.1 mg PO UNSCH PRN PRN Reason: SEE LABEL COMMENTS Diphenhydramine HCl (Benadryl) 25 mg PO UNSCH PRN PRN Reason: SEE LABEL COMMENTS Epoetin Hermes (Epogen Inj) 10,000 unit IV.PUSH UNSCH PRN PRN Reason: SEE LABEL COMMENTS Last Admin: 08/14/18 12:18 Dose: 10,000 unit Gelatin (Gelfoam 12 Mm/7 Mm Topical) 1 foam TOPICAL PRN PRN PRN Reason: help stop bleeding from site Gentamicin Sulfate (Gentamicin Inj) 20 mg OTHER WITH DIALYSIS PRN PRN Reason: Dwell Gentamycin Lock Last Admin: 08/14/18 12:18 Dose: 20 mg Heparin Sodium (Porcine) (Heparin Inj) 8,000 units OTHER WITH DIALYSIS PRN PRN Reason: for machine prime Heparin Sodium (Porcine) (Heparin Inj) 1,000 units OTHER WITH DIALYSIS PRN PRN Reason: Dwell Heparin to Fill Catheter Last Admin: 08/14/18 12:19 Dose: 1,000 units Albumin Human (Flexbumin 25% Inj) 100 mls @ 60 mls/hr IV.SIG WITH DIALYSIS PRN PRN Reason: hypotension / volume replace Sodium Chloride (Ns Inj) 1,000 mls @ 0 mls/hr OTHER .Q0M PRN PRN Reason: for prime and rinse back Sodium Chloride (Ns Inj) 1,000 mls @ 200 mls/hr OTHER .Q5H PRN PRN Reason: for dialyzer flush PRN Sodium Chloride (Ns Inj) 1,000 mls @ 0 mls/hr IV.CONT .Q0M PRN PRN Reason: hypotension / volume replace Mannitol (Mannitol Inj) 12.5 gm IV.PUSH UNSCH PRN PRN Reason: hypotension / volume replace Nitroglycerin (Nitrostat Sl) 0.4 mg SL Q5M PRN PRN Reason: CHEST PAIN Nitroglycerin (Nitro-Bid 2% Oint) 0.5 inch TOPICAL Q6HR [facility] Last Admin: 08/14/18 05:02 Dose: 0.5 inch Sodium Chloride (Ns Flush) 2 ml IV.FLUSH BID [facility] Last Admin: 08/13/18 21:00 Dose: 2 ml Sodium Chloride (Ns Flush) 2 ml IV.FLUSH PRN PRN PRN Reason: FLUSH AFTER USING IV ACCESS Sodium Chloride (Ns Flush) 5 ml IV.FLUSH PRN PRN PRN Reason: flush each lumen during HD Tamsulosin HCl (Flomax) 0.4 mg PO DAILY [facility] <Nancy Patterson - Last Filed: 08/14/18 12:33> Active Medications: Active Medications Acetaminophen (Tylenol) 650 mg PO UNSCH PRN PRN Reason: SEE LABEL COMMENTS Aspirin (Ecotrin) 81 mg PO DAILY CYNDIE Bicalutamide (Casodex) 50 mg PO HS [facility] Clonidine HCl (Catapres) 0.1 mg PO UNSCH PRN PRN Reason: SEE LABEL COMMENTS Diphenhydramine HCl (Benadryl) 25 mg PO UNSCH PRN PRN Reason: SEE LABEL COMMENTS Epoetin Hermes (Epogen Inj) 10,000 unit IV.PUSH UNSCH PRN PRN Reason: SEE LABEL COMMENTS Last Admin: 08/14/18 12:18 Dose: 10,000 unit Gelatin (Gelfoam 12 Mm/7 Mm Topical) 1 foam TOPICAL PRN PRN PRN Reason: help stop bleeding from site Gentamicin Sulfate (Gentamicin Inj) 20 mg OTHER WITH DIALYSIS PRN PRN Reason: Dwell Gentamycin Lock Last Admin: 08/14/18 12:18 Dose: 20 mg Heparin Sodium (Porcine) (Heparin Inj) 8,000 units OTHER WITH DIALYSIS PRN PRN Reason: for machine prime Heparin Sodium (Porcine) (Heparin Inj) 1,000 units OTHER WITH DIALYSIS PRN PRN Reason: Dwell Heparin to Fill Catheter Last Admin: 08/14/18 12:19 Dose: 1,000 units Albumin Human (Flexbumin 25% Inj) 100 mls @ 60 mls/hr IV.SIG WITH DIALYSIS PRN PRN Reason: hypotension / volume replace Sodium Chloride (Ns Inj) 1,000 mls @ 0 mls/hr OTHER .Q0M PRN PRN Reason: for prime and rinse back Sodium Chloride (Ns Inj) 1,000 mls @ 200 mls/hr OTHER .Q5H PRN PRN Reason: for dialyzer flush PRN Sodium Chloride (Ns Inj) 1,000 mls @ 0 mls/hr IV.CONT .Q0M PRN PRN Reason: hypotension / volume replace Mannitol (Mannitol Inj) 12.5 gm IV.PUSH UNSCH PRN PRN Reason: hypotension / volume replace Megestrol Acetate (Megace Liq) 400 mg PO BID [facility] Last Admin: 08/14/18 16:53 Dose: 400 mg Nitroglycerin (Nitrostat Sl) 0.4 mg SL Q5M PRN PRN Reason: CHEST PAIN Nitroglycerin (Nitro-Bid 2% Oint) 0.5 inch TOPICAL Q6HR [facility] Last Admin: 08/14/18 17:04 Dose: 0.5 inch Pantoprazole Sodium (Protonix Inj) 40 mg IV.PUSH Q12H [facility] Last Admin: 08/14/18 13:41 Dose: 40 mg Sodium Chloride (Ns Flush) 2 ml IV.FLUSH BID [facility] Last Admin: 08/14/18 13:41 Dose: 2 ml Sodium Chloride (Ns Flush) 2 ml IV.FLUSH PRN PRN PRN Reason: FLUSH AFTER USING IV ACCESS Sodium Chloride (Ns Flush) 5 ml IV.FLUSH PRN PRN PRN Reason: flush each lumen during HD Tamsulosin HCl (Flomax) 0.4 mg PO DAILY [facility] Last Admin: 08/14/18 13:41 Dose: 0.4 mg Vancomycin HCl (Vancomycin Po) 125 mg PO QID [facility] Last Admin: 08/14/18 17:04 Dose: 125 mg <Wayne Naidu A - Last Filed: 08/14/18 17:19> Allergies Allergy/AdvReac Type Severity Reaction Status Date / Time Tetanus Vaccines and Toxoid Allergy Severe Fever Verified 08/13/18 15:46 amoxicillin AdvReac Mild Nausea/Vomi Verified 08/13/18 15:46 ting Home Medications Medication Instructions Recorded Confirmed Type bicalutamide 50 mg PO HS 07/09/18 08/13/18 History tamsulosin [Flomax] 0.4 mg PO DAILY 07/09/18 08/13/18 History aspirin 325 mg PO DAILY 08/13/18 08/13/18 History Exam Vital signs: Vital Signs 08/13/18 15:35 08/13/18 17:09 08/13/18 17:12 Temperature 98.1 F Pulse Rate 95 H 78 Respiratory Rate 18 Blood Pressure 143/78 H Pulse Oximetry 100 97 08/13/18 17:25 08/13/18 17:29 08/13/18 19:00 Temperature Pulse Rate 88 90 Respiratory Rate 18 Blood Pressure 152/88 H Pulse Oximetry 97 97 08/13/18 20:00 08/13/18 21:15 08/13/18 22:19 Temperature 98.1 F Pulse Rate 88 100 H 86 Respiratory Rate 20 20 20 Blood Pressure 148/79 H 148/87 H 143/84 H Pulse Oximetry 99 100 08/13/18 22:22 08/13/18 22:35 08/13/18 22:50 Temperature 98.1 F 98.2 F Pulse Rate 83 84 Respiratory Rate 20 20 Blood Pressure 142/81 H 144/79 H Pulse Oximetry 100 100 100 08/13/18 23:00 08/13/18 23:10 08/13/18 23:59 Temperature 98 F Pulse Rate 83 86 Respiratory Rate 18 Blood Pressure 142/83 H Pulse Oximetry 99 08/14/18 00:00 08/14/18 01:00 08/14/18 01:23 Temperature 98.1 F 98.2 F Pulse Rate 92 H 89 90 Respiratory Rate 18 20 Blood Pressure 144/95 H 146/86 H Pulse Oximetry 100 99 08/14/18 01:30 08/14/18 01:45 08/14/18 02:00 Temperature 97.5 F L 97.8 F 97.9 F Pulse Rate 92 H 92 H 88 Respiratory Rate 20 20 18 Blood Pressure 149/90 H 149/89 H 150/87 H Pulse Oximetry 99 99 99 08/14/18 02:30 08/14/18 03:00 08/14/18 04:00 Temperature 98 F 98 F Pulse Rate 93 H 91 H 87 Respiratory Rate 18 18 Blood Pressure 153/92 H 146/87 H Pulse Oximetry 100 100 08/14/18 04:30 08/14/18 05:00 08/14/18 06:00 Temperature 98.1 F Pulse Rate 84 89 88 Respiratory Rate 20 Blood Pressure 153/90 H Pulse Oximetry 100 08/14/18 07:00 08/14/18 08:00 08/14/18 09:00 Temperature 97.9 F Pulse Rate 120 H 81 84 Respiratory Rate 18 Blood Pressure 155/94 H Pulse Oximetry 100 08/14/18 09:58 08/14/18 11:00 Temperature Pulse Rate 81 77 Respiratory Rate Blood Pressure Pulse Oximetry Intake & Output 08/13/18 08/14/18 08/14/18 18:59 06:59 18:59 Intake Total 800 / 800 Output Total 800 / 800 Balance 0 / 0 Weight 84 kg 76.5 kg Intake: Intake (Blood Product) Amt 800 / 800 Rbc As-3 Leukoreduced Unit 400 / 400 [id number] Rbc As-3 Leukoreduced Unit 400 / 400 [id number] Output: Urine 800 / 800 Other: Date of Last Bowel Movement 08/14/18 # Bowel Movements 1 - Constitutional chronically ill appearing - Routine HEENT Exam Head: Present: normocephalic - Routine Respiratory Exam Present: CTA bilaterally. Absent: accessory muscle use - Routine Cardiovascular Exam Present: RRR - Routine Abdominal Exam Present: soft, normoactive bowel sounds. Absent: tenderness, distended, guarding, firm, rigid - Routine Extremities Exam Present: pulses intact. Absent: edema - Routine Skin Exam Present: dry, warm - Routine Neurological Exam Present: alert - Routine Psychiatric Exam Present: normal affect, cooperative <Patterson,Nancy - Last Filed: 08/14/18 12:33> Vital signs: Vital Signs 08/13/18 17:25 08/13/18 17:29 08/13/18 19:00 Temperature Pulse Rate 88 90 Respiratory Rate 18 Blood Pressure 152/88 H Pulse Oximetry 97 97 08/13/18 20:00 08/13/18 21:15 08/13/18 22:19 Temperature 98.1 F Pulse Rate 88 100 H 86 Respiratory Rate 20 20 20 Blood Pressure 148/79 H 148/87 H 143/84 H Pulse Oximetry 99 100 08/13/18 22:22 08/13/18 22:35 08/13/18 22:50 Temperature 98.1 F 98.2 F Pulse Rate 83 84 Respiratory Rate 20 20 Blood Pressure 142/81 H 144/79 H Pulse Oximetry 100 100 100 08/13/18 23:00 08/13/18 23:10 08/13/18 23:59 Temperature 98 F Pulse Rate 83 86 Respiratory Rate 18 Blood Pressure 142/83 H Pulse Oximetry 99 08/14/18 00:00 08/14/18 01:00 08/14/18 01:23 Temperature 98.1 F 98.2 F Pulse Rate 92 H 89 90 Respiratory Rate 18 20 Blood Pressure 144/95 H 146/86 H Pulse Oximetry 100 99 08/14/18 01:30 08/14/18 01:45 08/14/18 02:00 Temperature 97.5 F L 97.8 F 97.9 F Pulse Rate 92 H 92 H 88 Respiratory Rate 20 20 18 Blood Pressure 149/90 H 149/89 H 150/87 H Pulse Oximetry 99 99 99 08/14/18 02:30 08/14/18 03:00 08/14/18 04:00 Temperature 98 F 98 F Pulse Rate 93 H 91 H 87 Respiratory Rate 18 18 Blood Pressure 153/92 H 146/87 H Pulse Oximetry 100 100 08/14/18 04:30 08/14/18 05:00 08/14/18 06:00 Temperature 98.1 F Pulse Rate 84 89 88 Respiratory Rate 20 Blood Pressure 153/90 H Pulse Oximetry 100 08/14/18 07:00 08/14/18 08:00 08/14/18 09:00 Temperature 97.9 F Pulse Rate 120 H 81 84 Respiratory Rate 18 Blood Pressure 155/94 H Pulse Oximetry 100 08/14/18 09:58 08/14/18 11:00 08/14/18 12:00 Temperature 98.1 F Pulse Rate 81 77 77 Respiratory Rate 18 Blood Pressure 140/90 Pulse Oximetry 99 08/14/18 13:00 08/14/18 14:00 08/14/18 14:34 Temperature Pulse Rate 88 80 Respiratory Rate Blood Pressure Pulse Oximetry 98 08/14/18 15:00 Temperature Pulse Rate 74 Respiratory Rate Blood Pressure Pulse Oximetry Intake & Output 08/13/18 08/14/18 08/14/18 18:59 06:59 18:59 Intake Total 800 / 800 Output Total 800 / 800 2500 / 2500 Balance 0 / 0 -2500 / -2500 Weight 84 kg 76.5 kg Intake: Intake (Blood Product) Amt 800 / 800 Rbc As-3 Leukoreduced Unit 400 / 400 [id number] Rbc As-3 Leukoreduced Unit 400 / 400 [id number] Output: Urine 800 / 800 Hemodialysis Amount 2500 / 2500 Other: Date of Last Bowel Movement 08/14/18 # Bowel Movements 1 <Wayne Naidu A - Last Filed: 08/14/18 17:19> Results - Labs CBC & Chem 7: 08/14/18 06:42 08/14/18 06:42 Labs: Laboratory Results - last 24 hr 08/13/18 08/13/18 08/13/18 17:08 17:08 17:08 CBC w Diff Slide review pending WBC 12.7 H RBC 2.38 L Hgb 6.8 L* Hct 21.3 L MCV 89.8 MCH 28.8 MCHC 32.1 RDW 18.5 H Plt Count 219 MPV 8.4 Prelim Diff (Auto) Neut % (Auto) Lymph % (Auto) Boundary % (Auto) Eos % (Auto) Baso % (Auto) Neut # (Auto) Lymph # (Auto) Boundary # (Auto) Eos # (Auto) Baso # (Auto) WBC Differential Manual diff final Seg Neuts % (Manual) 68 Band Neuts % (Manual) 2 Lymphocytes % (Manual) 23 Monocytes % (Manual) 7 Eosinophils % (Manual) Metamyelocytes % (Man) Myelocytes % (Man) Abs Neuts (Manual) 8.9 H Nucleated RBCs/100 WBC 1 H Differential Comment . Platelet Estimate Normal Platelet Morphology Normal APTT 35.8 H Sodium 135 L Potassium 4.1 Chloride 101 Carbon Dioxide 20.9 L Anion Gap 13 BUN 19 H Creatinine 4.40 H Estimated GFR 14 L Random Glucose 103 Calcium 7.9 L Magnesium Total Bilirubin 0.3 AST 25 ALT 11 L Alkaline Phosphatase 1096 H Total Creatine Kinase CK-MB (CK-2) Troponin I 2.31 H* B-Natriuretic Peptide Total Protein 6.2 L Albumin 2.4 L Blood Type Antibody Screen MTS Gel Crossmatch 08/13/18 08/13/18 08/13/18 17:08 17:08 18:30 CBC w Diff WBC RBC Hgb Hct MCV MCH MCHC RDW Plt Count MPV Prelim Diff (Auto) Neut % (Auto) Lymph % (Auto) Boundary % (Auto) Eos % (Auto) Baso % (Auto) Neut # (Auto) Lymph # (Auto) Boundary # (Auto) Eos # (Auto) Baso # (Auto) WBC Differential Seg Neuts % (Manual) Band Neuts % (Manual) Lymphocytes % (Manual) Monocytes % (Manual) Eosinophils % (Manual) Metamyelocytes % (Man) Myelocytes % (Man) Abs Neuts (Manual) Nucleated RBCs/100 WBC Differential Comment Platelet Estimate Platelet Morphology APTT Sodium Potassium Chloride Carbon Dioxide Anion Gap BUN Creatinine Estimated GFR Random Glucose Calcium Magnesium 1.7 Total Bilirubin AST ALT Alkaline Phosphatase Total Creatine Kinase 118 CK-MB (CK-2) 3.3 Troponin I B-Natriuretic Peptide Greater than 5000 H Total Protein Albumin Blood Type O Negative Antibody Screen Negative MTS Gel Crossmatch See Detail 08/13/18 08/14/18 08/14/18 22:52 06:42 06:42 CBC w Diff WBC 11.3 H RBC 3.11 L Hgb 9.3 L D Hct 28.0 L MCV 89.8 MCH 30.0 MCHC 33.4 RDW 17.4 H Plt Count 166 MPV 7.4 Prelim Diff (Auto) Slide review pending Neut % (Auto) 62.9 Lymph % (Auto) 30.7 Boundary % (Auto) 4.9 Eos % (Auto) 0.5 Baso % (Auto) 1.0 Neut # (Auto) 7.1 Lymph # (Auto) 3.5 Boundary # (Auto) 0.6 Eos # (Auto) 0.1 Baso # (Auto) 0.1 WBC Differential Manual diff final Seg Neuts % (Manual) 58 Band Neuts % (Manual) 5 Lymphocytes % (Manual) 28 Monocytes % (Manual) 5 Eosinophils % (Manual) 1 Metamyelocytes % (Man) 2 H Myelocytes % (Man) 1 H Abs Neuts (Manual) 7.5 Nucleated RBCs/100 WBC 1 H Differential Comment . Platelet Estimate Normal Platelet Morphology Normal APTT Sodium 135 L Potassium 4.0 Chloride 104 Carbon Dioxide 18.9 L Anion Gap 12 BUN 23 H Creatinine 4.65 H Estimated GFR 13 L Random Glucose 107 H Calcium 7.8 L Magnesium Total Bilirubin 0.7 AST 22 ALT 10 L Alkaline Phosphatase 1063 H Total Creatine Kinase CK-MB (CK-2) Troponin I 1.93 H* 2.14 H* B-Natriuretic Peptide Total Protein 5.9 L Albumin 2.4 L Blood Type Antibody Screen MTS Gel Crossmatch - Imaging Impressions Chest X-Ray 08/13/18 16:19 CONCLUSION: 1. Cardiomegaly with pulmonary vascular congestion. 2. Mild airspace disease in the left lower lung zone with associated probable trace pleural effusion. <Nancy Patterson - Last Filed: 08/14/18 12:33> - Labs CBC & Chem 7: 08/14/18 06:42 08/14/18 06:42 Labs: Laboratory Results - last 24 hr 08/13/18 08/13/18 08/13/18 17:08 17:08 17:08 CBC w Diff Slide review pending WBC 12.7 H RBC 2.38 L Hgb 6.8 L* Hct 21.3 L MCV 89.8 MCH 28.8 MCHC 32.1 RDW 18.5 H Plt Count 219 MPV 8.4 Prelim Diff (Auto) Neut % (Auto) Lymph % (Auto) Boundary % (Auto) Eos % (Auto) Baso % (Auto) Neut # (Auto) Lymph # (Auto) Boundary # (Auto) Eos # (Auto) Baso # (Auto) WBC Differential Manual diff final Seg Neuts % (Manual) 68 Band Neuts % (Manual) 2 Lymphocytes % (Manual) 23 Monocytes % (Manual) 7 Eosinophils % (Manual) Metamyelocytes % (Man) Myelocytes % (Man) Abs Neuts (Manual) 8.9 H Nucleated RBCs/100 WBC 1 H Differential Comment . Platelet Estimate Normal Platelet Morphology Normal APTT 35.8 H Sodium 135 L Potassium 4.1 Chloride 101 Carbon Dioxide 20.9 L Anion Gap 13 BUN 19 H Creatinine 4.40 H Estimated GFR 14 L Random Glucose 103 Calcium 7.9 L Magnesium Total Bilirubin 0.3 AST 25 ALT 11 L Alkaline Phosphatase 1096 H Total Creatine Kinase CK-MB (CK-2) Troponin I 2.31 H* B-Natriuretic Peptide Total Protein 6.2 L Albumin 2.4 L Stl C.difficile DNA Amp St C. diff Tox Epid 027 Blood Type Antibody Screen MTS Gel Crossmatch 08/13/18 08/13/18 08/13/18 17:08 17:08 18:30 CBC w Diff WBC RBC Hgb Hct MCV MCH MCHC RDW Plt Count MPV Prelim Diff (Auto) Neut % (Auto) Lymph % (Auto) Boundary % (Auto) Eos % (Auto) Baso % (Auto) Neut # (Auto) Lymph # (Auto) Boundary # (Auto) Eos # (Auto) Baso # (Auto) WBC Differential Seg Neuts % (Manual) Band Neuts % (Manual) Lymphocytes % (Manual) Monocytes % (Manual) Eosinophils % (Manual) Metamyelocytes % (Man) Myelocytes % (Man) Abs Neuts (Manual) Nucleated RBCs/100 WBC Differential Comment Platelet Estimate Platelet Morphology APTT Sodium Potassium Chloride Carbon Dioxide Anion Gap BUN Creatinine Estimated GFR Random Glucose Calcium Magnesium 1.7 Total Bilirubin AST ALT Alkaline Phosphatase Total Creatine Kinase 118 CK-MB (CK-2) 3.3 Troponin I B-Natriuretic Peptide Greater than 5000 H Total Protein Albumin Stl C.difficile DNA Amp St C. diff Tox Epid 027 Blood Type O Negative Antibody Screen Negative MTS Gel Crossmatch See Detail 08/13/18 08/13/18 08/14/18 19:00 22:52 06:42 CBC w Diff WBC RBC Hgb Hct MCV MCH MCHC RDW Plt Count MPV Prelim Diff (Auto) Neut % (Auto) Lymph % (Auto) Boundary % (Auto) Eos % (Auto) Baso % (Auto) Neut # (Auto) Lymph # (Auto) Boundary # (Auto) Eos # (Auto) Baso # (Auto) WBC Differential Seg Neuts % (Manual) Band Neuts % (Manual) Lymphocytes % (Manual) Monocytes % (Manual) Eosinophils % (Manual) Metamyelocytes % (Man) Myelocytes % (Man) Abs Neuts (Manual) Nucleated RBCs/100 WBC Differential Comment Platelet Estimate Platelet Morphology APTT Sodium 135 L Potassium 4.0 Chloride 104 Carbon Dioxide 18.9 L Anion Gap 12 BUN 23 H Creatinine 4.65 H Estimated GFR 13 L Random Glucose 107 H Calcium 7.8 L Magnesium Total Bilirubin 0.7 AST 22 ALT 10 L Alkaline Phosphatase 1063 H Total Creatine Kinase CK-MB (CK-2) Troponin I 1.93 H* 2.14 H* B-Natriuretic Peptide Total Protein 5.9 L Albumin 2.4 L Stl C.difficile DNA Amp Positive H St C. diff Tox Epid 027 Positive H Blood Type Antibody Screen MTS Gel Crossmatch 08/14/18 06:42 CBC w Diff WBC 11.3 H RBC 3.11 L Hgb 9.3 L D Hct 28.0 L MCV 89.8 MCH 30.0 MCHC 33.4 RDW 17.4 H Plt Count 166 MPV 7.4 Prelim Diff (Auto) Slide review pending Neut % (Auto) 62.9 Lymph % (Auto) 30.7 Boundary % (Auto) 4.9 Eos % (Auto) 0.5 Baso % (Auto) 1.0 Neut # (Auto) 7.1 Lymph # (Auto) 3.5 Boundary # (Auto) 0.6 Eos # (Auto) 0.1 Baso # (Auto) 0.1 WBC Differential Manual diff final Seg Neuts % (Manual) 58 Band Neuts % (Manual) 5 Lymphocytes % (Manual) 28 Monocytes % (Manual) 5 Eosinophils % (Manual) 1 Metamyelocytes % (Man) 2 H Myelocytes % (Man) 1 H Abs Neuts (Manual) 7.5 Nucleated RBCs/100 WBC 1 H Differential Comment . Platelet Estimate Normal Platelet Morphology Normal APTT Sodium Potassium Chloride Carbon Dioxide Anion Gap BUN Creatinine Estimated GFR Random Glucose Calcium Magnesium Total Bilirubin AST ALT Alkaline Phosphatase Total Creatine Kinase CK-MB (CK-2) Troponin I B-Natriuretic Peptide Total Protein Albumin Stl C.difficile DNA Amp St C. diff Tox Epid 027 Blood Type Antibody Screen MTS Gel Crossmatch - Imaging Impressions Chest X-Ray 08/13/18 16:19 CONCLUSION: 1. Cardiomegaly with pulmonary vascular congestion. 2. Mild airspace disease in the left lower lung zone with associated probable trace pleural effusion. <Wayne Naidu - Last Filed: 11/26/18 17:19> Assessment and Plan (1) GI (gastrointestinal bleed) Status: Acute Code(s): K92.2 - Gastrointestinal hemorrhage, unspecified - Plan This patient is a 63-year-old male with past medical history of end-stage renal disease, anemia, hypertension, prostate cancer and resistant C. difficile. Patient presented to the emergency room with complaint of shortness of breath and cough. At that time he was found to have elevated troponin, hemoglobin 6.8 with stool faintly positive for occult blood, lower extremity edema with a BNP greater than 5000. Patient denies hematemesis, hematuria or hematochezia. Patient also denies melena. Upon consultation, patient reports that he has had nausea for 1 month with poor appetite. Patient denies any difficulty swallowing, odynophagia or heartburn. Patient denies ever having had an EGD or colonoscopy in the past and states that he would not be agreeable to have either one done at this time. Of note, patient does report that he takes aspirin 325 mg p.o. 3 times a week for joint pain. Patient denies any known family history for gastrointestinal disorders. Patient states that he smokes 6 cigarettes daily and drinks 1 vodka with fruit juice drink every night with dinner. Our service has been consulted to evaluate patient for possible GI bleeding. GI bleeding Patient presented to the emergency room with complaint of shortness of breath. On arrival, hemoglobin 6.8 with stool faintly positive for occult blood. Endorses nausea with poor appetite for 1 month. Patient was transfused with 2 units packed RBCs. Hemoglobin 9.3 hematocrit 28.0 post-transfusion *08/14/2018 total bilirubin 0.7 AST 22 ALT 10 alk phos 1063 troponin II 0.14 BNP greater than 5000 Patient currently undergoing hemodialysis during consultation. Patient states he has not agreeable to have either colonoscopy or a EGD done at this time. He states, "I have too many other illnesses going on". I advised patient that we would continue to monitor him closely. Plan -Clear liquid diet-renal -Monitor patient for bleeding -Monitor labs-hemoglobin and hematocrit -Transfuse if needed -May consider bleeding scan -Avoid anticoagulants -Avoid NSAIDs and aspirin -Pantoprazole 40 mg IV twice daily -Supportive care -Further recommendations to follow This patient has been seen by myself and Dr. Naidu and this note is written on his behalf - Attending Attestation Dr. Naidu <Nancy Pattreson - Last Filed: 08/14/18 12:33> (1) GI (gastrointestinal bleed) Status: Acute Code(s): K92.2 - Gastrointestinal hemorrhage, unspecified - Attending Attestation Agree with above assessment and plan. Refusing endoscopic evaluation at this time. Currently under cardiac investigation and workup. Will follow up with you. Thank you for the consult. <Wayne Naidu - Last Filed: 08/14/18 17:19>
[2018-08-14] MEDS: Pantoprazole Inj 40 MG Vial IV.PUSH SCH (13:41)
--- NOTE | 2018-08-14 14:53 | P.CONNP ---
History of Present Illness Service: Nephrology Consult date: 08/14/18 Requesting Physician: Fadi Jorge Reason for Consult: ESRD management Primary Care Provider: Bhavani Primary Care Physician Chief Complaint: Shortness of breath History of Present Illness: Patient is a 63-year-old white male with metastatic cancer, C. difficile colitis , ESRD, he stopped his Lupron injection as he was not feeling well and he stopped his oral vancomycin for C. difficile colitis as he felt sick after taking that, he said he is on and off diarrhea, his appetite is poor He came in with a hemoglobin of 6.8. Received blood transfusion his hemoglobin did improve he received dialysis earlier, continued to feel weak and tired, PSA of 190.68 Review of Systems Constitutional: Reports anorexia, Reports body ache(s), Reports fatigue Eyes: Denies blind spots, Denies blurry vision, Denies bulging eyes, Denies change in vision, Denies double vision, Denies discharge, Denies dry eyes, Denies floaters, Denies irritation, Denies itchy eyes, Denies loss of vision, Denies pain, Denies requires corrective lenses, Denies sensitivity to light, Denies other Ears, Nose, Mouth, and Throat: Denies abnormal hearing, Denies bleeding gums, Denies bad breath, Denies change in voice, Denies dental pain, Denies difficulty swallowing, Denies dizziness, Denies dry mouth, Denies ear discharge , Denies ear pain, Denies facial pain, Denies headache(s), Denies hearing loss, Denies hoarseness, Denies lip swelling, Denies nosebleed, Denies mouth lesions, Denies mouth pain, Denies nasal congestion, Denies nasal discharge, Denies nasal obstruction, Denies nasal trauma, Denies neck lump, Denies neck pain, Denies nose pain, Denies pain with swallowing, Denies poor balance, Denies post nasal drip, Denies ringing in the ears, Denies sinus pain, Denies sinus pressure , Denies sore throat, Denies throat swelling, Denies tongue swelling, Denies other Cardiovascular: Reports shortness of breath with activity Respiratory: Reports shortness of breath Gastrointestinal: Reports change in bowel habits, Reports loose stools, Reports nausea Genitourinary: Reports other (Prostate cancer) Musculoskeletal: Reports joint pain Neurologic: Reports weakness Psychiatric: Reports change in appetite Endocrine: Denies cold intolerance, Denies excessive sweating, Denies flushing, Denies heat intolerance, Denies increased hunger, Denies increased thirst, Denies increased urination, Denies rapid, pounding, or irregular heartbeat, Denies other Hematologic/Lymphatic: Denies easy bleeding, Denies easy bruising, Denies enlarged lymph nodes, Denies other PMFSH - History History Provided By: Patient - Medical History Medical History: Medical History (Last Reviewed 08/14/18 @ 14:48 by Karena Duval MD) Acute renal failure Acute renal failure on dialysis Anemia Dyspnea Fistula Hypertension Kidney stone MDRO (multiple drug resistant organisms) resistance Onset Date: ~07/19/18 Prostate CA Sepsis Vascular dialysis catheter in place - Surgical History Surgical History: Surgical History (Last Reviewed 08/14/18 @ 14:48 by Karena Duval MD) H/O major orthopedic surgery - Family History Family History: Family History (Last Reviewed 08/14/18 @ 14:48 by Karena Duval MD) Other CVA (cerebral vascular accident) - Social History I have reviewed the patient's Social History: Yes - Tobacco History Second Hand Smoke Exposure: No Tobacco Use In Past 30 Days: Yes Smoking Status: Current every day smoker Tobacco Type: Cigarettes - Alcohol History How Often Do You Have a Drink Containing Alcohol: Monthly or less - Substance Use History Substance History: No History of Abuse - Travel History Recent Travel in the [place] Within the Last 8 Weeks: No Recent Travel Out of the Country Within the Last 8 Weeks: No - Immunization History Tetanus Immunization: Unsure Medications and Allergies Active Medications: Active Medications Acetaminophen (Tylenol) 650 mg PO UNSCH PRN PRN Reason: SEE LABEL COMMENTS Aspirin (Aspirin) 325 mg PO DAILY [facility] Last Admin: 08/14/18 13:40 Dose: Not Given Bicalutamide (Casodex) 50 mg PO HS CYNDIE Clonidine HCl (Catapres) 0.1 mg PO UNSCH PRN PRN Reason: SEE LABEL COMMENTS Diphenhydramine HCl (Benadryl) 25 mg PO UNSCH PRN PRN Reason: SEE LABEL COMMENTS Epoetin Hermes (Epogen Inj) 10,000 unit IV.PUSH UNSCH PRN PRN Reason: SEE LABEL COMMENTS Last Admin: 08/14/18 12:18 Dose: 10,000 unit Gelatin (Gelfoam 12 Mm/7 Mm Topical) 1 foam TOPICAL PRN PRN PRN Reason: help stop bleeding from site Gentamicin Sulfate (Gentamicin Inj) 20 mg OTHER WITH DIALYSIS PRN PRN Reason: Dwell Gentamycin Lock Last Admin: 08/14/18 12:18 Dose: 20 mg Heparin Sodium (Porcine) (Heparin Inj) 8,000 units OTHER WITH DIALYSIS PRN PRN Reason: for machine prime Heparin Sodium (Porcine) (Heparin Inj) 1,000 units OTHER WITH DIALYSIS PRN PRN Reason: Dwell Heparin to Fill Catheter Last Admin: 08/14/18 12:19 Dose: 1,000 units Albumin Human (Flexbumin 25% Inj) 100 mls @ 60 mls/hr IV.SIG WITH DIALYSIS PRN PRN Reason: hypotension / volume replace Sodium Chloride (Ns Inj) 1,000 mls @ 0 mls/hr OTHER .Q0M PRN PRN Reason: for prime and rinse back Sodium Chloride (Ns Inj) 1,000 mls @ 200 mls/hr OTHER .Q5H PRN PRN Reason: for dialyzer flush PRN Sodium Chloride (Ns Inj) 1,000 mls @ 0 mls/hr IV.CONT .Q0M PRN PRN Reason: hypotension / volume replace Mannitol (Mannitol Inj) 12.5 gm IV.PUSH UNSCH PRN PRN Reason: hypotension / volume replace Nitroglycerin (Nitrostat Sl) 0.4 mg SL Q5M PRN PRN Reason: CHEST PAIN Nitroglycerin (Nitro-Bid 2% Oint) 0.5 inch TOPICAL Q6HR [facility] Last Admin: 08/14/18 13:41 Dose: 0.5 inch Pantoprazole Sodium (Protonix Inj) 40 mg IV.PUSH Q12H [facility] Last Admin: 08/14/18 13:41 Dose: 40 mg Sodium Chloride (Ns Flush) 2 ml IV.FLUSH BID [facility] Last Admin: 08/14/18 13:41 Dose: 2 ml Sodium Chloride (Ns Flush) 2 ml IV.FLUSH PRN PRN PRN Reason: FLUSH AFTER USING IV ACCESS Sodium Chloride (Ns Flush) 5 ml IV.FLUSH PRN PRN PRN Reason: flush each lumen during HD Tamsulosin HCl (Flomax) 0.4 mg PO DAILY [facility] Last Admin: 08/14/18 13:41 Dose: 0.4 mg Vancomycin HCl (Vancomycin Po) 125 mg PO QID [facility] Allergies Allergy/AdvReac Type Severity Reaction Status Date / Time Tetanus Vaccines and Toxoid Allergy Severe Fever Verified 08/13/18 15:46 amoxicillin AdvReac Mild Nausea/Vomi Verified 08/13/18 15:46 ting Home Medications Medication Instructions Recorded Confirmed Type bicalutamide 50 mg PO HS 07/09/18 08/13/18 History tamsulosin [Flomax] 0.4 mg PO DAILY 07/09/18 08/13/18 History aspirin 325 mg PO DAILY 08/13/18 08/13/18 History Exam Vital signs: Vital Signs 08/13/18 15:35 08/13/18 17:09 08/13/18 17:12 Temperature 98.1 F Pulse Rate 95 H 78 Respiratory Rate 18 Blood Pressure 143/78 H Pulse Oximetry 100 97 08/13/18 17:25 08/13/18 17:29 08/13/18 19:00 Temperature Pulse Rate 88 90 Respiratory Rate 18 Blood Pressure 152/88 H Pulse Oximetry 97 97 08/13/18 20:00 08/13/18 21:15 08/13/18 22:19 Temperature 98.1 F Pulse Rate 88 100 H 86 Respiratory Rate 20 20 20 Blood Pressure 148/79 H 148/87 H 143/84 H Pulse Oximetry 99 100 08/13/18 22:22 08/13/18 22:35 08/13/18 22:50 Temperature 98.1 F 98.2 F Pulse Rate 83 84 Respiratory Rate 20 20 Blood Pressure 142/81 H 144/79 H Pulse Oximetry 100 100 100 08/13/18 23:00 08/13/18 23:10 08/13/18 23:59 Temperature 98 F Pulse Rate 83 86 Respiratory Rate 18 Blood Pressure 142/83 H Pulse Oximetry 99 08/14/18 00:00 08/14/18 01:00 08/14/18 01:23 Temperature 98.1 F 98.2 F Pulse Rate 92 H 89 90 Respiratory Rate 18 20 Blood Pressure 144/95 H 146/86 H Pulse Oximetry 100 99 08/14/18 01:30 08/14/18 01:45 08/14/18 02:00 Temperature 97.5 F L 97.8 F 97.9 F Pulse Rate 92 H 92 H 88 Respiratory Rate 20 20 18 Blood Pressure 149/90 H 149/89 H 150/87 H Pulse Oximetry 99 99 99 08/14/18 02:30 08/14/18 03:00 08/14/18 04:00 Temperature 98 F 98 F Pulse Rate 93 H 91 H 87 Respiratory Rate 18 18 Blood Pressure 153/92 H 146/87 H Pulse Oximetry 100 100 08/14/18 04:30 08/14/18 05:00 08/14/18 06:00 Temperature 98.1 F Pulse Rate 84 89 88 Respiratory Rate 20 Blood Pressure 153/90 H Pulse Oximetry 100 08/14/18 07:00 08/14/18 08:00 08/14/18 09:00 Temperature 97.9 F Pulse Rate 120 H 81 84 Respiratory Rate 18 Blood Pressure 155/94 H Pulse Oximetry 100 08/14/18 09:58 08/14/18 11:00 08/14/18 14:34 Temperature Pulse Rate 81 77 Respiratory Rate Blood Pressure Pulse Oximetry 98 Intake & Output 08/13/18 08/14/18 08/14/18 18:59 06:59 18:59 Intake Total 800 / 800 Output Total 800 / 800 2500 / 2500 Balance 0 / 0 -2500 / -2500 Weight 84 kg 76.5 kg Intake: Intake (Blood Product) Amt 800 / 800 Rbc As-3 Leukoreduced Unit 400 / 400 [id number] Rbc As-3 Leukoreduced Unit 400 / 400 [id number] Output: Urine 800 / 800 Hemodialysis Amount 2500 / 2500 Other: Date of Last Bowel Movement 08/14/18 # Bowel Movements 1 Narrative: GENERAL: mal-nourished, well-developed patient. SKIN: Warm and dry. HEAD: Normocephalic. EYES: No scleral icterus. No injection or drainage. NECK: Supple, trachea midline. No JVD or lymphadenopathy. CARDIOVASCULAR: Regular rate and rhythm without murmurs, gallops, or rubs. RESPIRATORY: Breath sounds equal bilaterally. No accessory muscle use. GASTROINTESTINAL: Abdomen soft, non-tender, nondistended. EXTREMITIES: Muscle wasting present NEUROLOGICAL: Awake, alert, and oriented x 3. Non-focal. Results - Lab Results 08/14/18 06:42 08/14/18 06:42 Most recent lab results Calcium 7.8 mg/dL (8.5-10.1) L 08/14/18 06:42 Magnesium 1.7 mg/dL (1.5-2.5) 08/13/18 17:08 Assessment and Plan - Assessment (1) End stage renal disease Code(s): N18.6 - End stage renal disease Status: Acute (2) C. difficile colitis Code(s): A04.72 - Enterocolitis due to Clostridium difficile, not specified as recurrent Status: Acute (3) Prostate cancer metastatic to bone Code(s): C61 - Malignant neoplasm of prostate; C79.51 - Secondary malignant neoplasm of bone Status: Acute (4) GI (gastrointestinal bleed) Code(s): K92.2 - Gastrointestinal hemorrhage, unspecified Status: Acute - Plan Patient had hemodialysis earlier this morning 2-1/2 L taken off he tolerated well continue to be weak has C. difficile colitis he stopped treatment on his own, this has been resumed, he received blood transfusions Patient has advanced prostate cancer with a PSA of 190 He stopped going to oncologist Prognosis is poor Resume appetite stimulant Continue to observe
--- NOTE | 2018-08-14 15:29 | MB ---
cc: Curt Alaniz MD DATE: 08/14/2018 HISTORY OF PRESENT ILLNESS: The patient is a very pleasant 63-year-old gentleman with history of acute renal failure, chronic renal insufficiency on permanent dialysis. Also, has active C. difficile. Admitted with elevated troponin and currently denies chest pain, fevers, chills, cough, GI or bleeding. No . PAST MEDICAL HISTORY: Per history of present illness, has a history of anemia, dyspnea, hypertension, nephrolithiasis, prostate cancer, sepsis. Vascular dialysis catheter in place. History of orthopedic surgery, CVA. ALLERGIES: TETANUS AND AMOXICILLIN. SOCIAL HISTORY: He smokes every day. Drinks alcohol rarely. MEDICATIONS IN THE HOSPITAL: 1. Aspirin 325 daily. 2. Casodex 50 mg at bedtime. 3. Erythropoietin. 4. Gentamicin. 5. Half inch nitro paste q. 6 hours. 6. Protonix 40 mg IV every 12 hours. 7. Tamsulosin 0.4 mg daily. 8. Vancomycin 125 mg p.o. q.i.d. PHYSICAL EXAMINATION: VITAL SIGNS: Pulse ranging between 77 and 84, blood pressure 155/94, respiratory rate 18, temperature 97.9. GENERAL: He is alert and oriented x3, in no acute distress. NECK: Supple. No JVD. No bruit. CARDIOVASCULAR: S1, S2. No murmurs, rubs or gallops. Lungs clear to auscultation bilaterally. ABDOMEN: Soft, nontender, nondistended with positive bowel sounds. EXTREMITIES: No lower extremity edema. LABORATORY DATA: Chest x-ray shows cardiomegaly with pulmonary vascular congestion, mild airspace disease in the left lower lung zone with associated probable trace pleural effusion. EKG shows normal sinus rhythm at 88 beats per minute. There is [address] segment depression in lead V5, V6, LVH. Late R-wave transition. Repeat EKG is essentially unchanged. LABORATORY DATA: White count 12.7, initial hemoglobin 6.8, hematocrit 21.3, platelet count 219. Repeat hemoglobin is 9.3. INR is not done. Sodium 135, potassium 4.0, chloride 104, bicarbonate 18.9, BUN 23, creatinine 4.65, troponin is 2.14, initially was 2.31. DIAGNOSES: 1. Non-STEMI. 2. End-stage renal disease. 3. Anemia. 4. Prostate cancer with possible metastases. 5. Dyspnea. 6. Hyponatremia. 7. Clostridium difficile colitis. 8. Tobacco abuse. DISCUSSION: At this point in time, recommend medical management, particularly given the uncertainty of the metastatic prostate cancer and the patient's severe anemia requiring blood transfusions. Suspect his troponin is possibly nonspecifically elevated due to end-stage renal failure and also secondary to a severe anemia. Certainly with his risk factors, he may have primary obstructive coronary disease as well. However, again due to the severe anemia and multiple comorbidities and the fact that he is not having chest pain, recommend medical management. I think it is reasonable to continue his aspirin. We obviously need to follow his hemoglobin levels on a daily basis. Half inch nitro paste. We will check fasting lipids as well and treat as per ____ guidelines. MD LORIE Ferris/willie/mello , 02:01 PM , 02:10 PM
[2018-08-14] MEDS: Megestrol Acetate Liq 400 MG/10 ML UDC PO SCH ×2 (16:53→20:14)
[2018-08-14] MEDS: Acetaminophen 325 MG Tablet PO PRN (18:35)
[2018-08-15] MEDS: Pantoprazole Inj 40 MG Vial IV.PUSH SCH ×2 (00:44→13:00)
[2018-08-15] MEDS: Acetaminophen 325 MG Tablet PO PRN ×5 (00:50→19:46)
--- NOTE | 2018-08-15 06:41 | ECG ---
Date Performed: 08/14/2018 Time Performed: 04:03:56 PTAGE: 63 years EKG: Sinus rhythm Leftward axis Poor R wave progression - probable normal variant Lateral ST-T changes are nonspecific Borderline ECG PREVIOUS TRACING : 08/13/2018 22.53 Since the previous tracing, no significant change noted DOCTOR: Armando aJmes Interpretating Date/Time 08/15/2018 06:40:29
[2018-08-15 06:46] LABS: Baso # (Auto) 0.1 th/mm3 (0.0-0.2); Baso % (Auto) 1.1 % (0.0-2.0); Eos # (Auto) 0.1 th/mm3 (0.0-0.4); Eos % (Auto) 0.9 % (0.0-4.0); Hematocrit 26.8 % (39.0-51.0); Hemoglobin 9.1 gm/dL (13.0-17.0); Lymph # (Auto) 3.5 th/mm3 (1.0-4.8); Lymph % (Auto) 33.6 % (9.0-44.0); Mean Corpuscular HGB Conc 33.9 % (32.0-36.0); Mean Corpuscular Volume 88.5 fL (80.0-100.0); Mean Platelet Volume 7.7 fL (7.0-11.0); Mono # (Auto) 0.5 th/mm3 (0.0-0.9); Mono % (Auto) 5.1 % (0.0-8.0); Neut # (Auto) 6.2 th/mm3 (1.8-7.7); Neut % (Auto) 59.3 % (16.0-70.0); Platelet Count 163 th/mm3 (150-450); Red Blood Count 3.03 mil/mm3 (4.50-5.90); White Blood Count 10.5 th/mm3 (4.0-11.0)
--- NOTE | 2018-08-15 06:46 | ECG ---
Date Performed: 08/13/2018 Time Performed: 22:53:40 PTAGE: 63 years EKG: Sinus rhythm Leftward axis QRS changes V3/V4 may be due to LVH but cannot rule out anterior infarct Left ventricu lar hypertrophy Lateral ST-T changes may be due to hypertrophy and/or ischemia Abnormal ECG NO PREVIOUS TRACING DOCTOR: Armando James Interpretating Date/Time 08/15/2018 06:43:36
--- NOTE | 2018-08-15 06:51 | ECG ---
Date Performed: 08/13/2018 Time Performed: 18:04:58 PTAGE: 63 years EKG: Sinus rhythm SEPTAL MYOCARDIAL INFARCTION PREVIOUS TRACING : 07/10/2018 02.49 Since the previous tracing, no significant change not ed DOCTOR: Armando James Interpretating Date/Time 08/15/2018 06:48:21
[2018-08-15 06:57] LABS: Alanine Aminotransferase 8 U/L (12-78); Albumin 2.2 g/dL (3.4-5.0); Alkaline Phosphatase 985 U/L (45-117); Anion Gap 7 meq/L (5-15); Aspartate Aminotransferase 20 U/L (15-37); Blood Urea Nitrogen 17 mg/dL (7-18); Calcium 7.9 mg/dL (8.5-10.1); Carbon Dioxide 28.7 meq/L (21.0-32.0); Chloride 102 meq/L (98-107); Cholesterol 119 mg/dL (120-200); Glomerular Filtration Rate 18 mL/min (>89); Glucose,Random 97 mg/dL (74-106); HDL Cholesterol 40.9 mg/dL (40.0-60.0); LDL Cholesterol,Calculated 54 mg/dL (0-99); Potassium 3.4 meq/L (3.5-5.1); Sodium 138 meq/L (136-145); Total Protein 5.3 g/dL (6.4-8.2); Triglycerides 120 mg/dL (42-150)
[2018-08-15 07:51] LABS: Lymphocytes 30 % (9-44); Monocytes 6 % (0-8); Myelocytes 2 % (0-0)
[2018-08-15 07:52] LABS: Platelet Estimate Normal (Normal); Platelet Morphology Normal (Normal); Toxic Vacuolation Present
[2018-08-15] MEDS: Megestrol Acetate Liq 400 MG/10 ML UDC PO SCH ×2 (08:56→22:16)
--- NOTE | 2018-08-15 10:45 | P.PNNP ---
Subjective Interval history: Patient states he felt sick with vancomycin and not going to take it he refused endoscopy and colonoscopy Physical Exam Vital signs: Vital Signs 08/14/18 11:00 08/14/18 12:00 08/14/18 13:00 Temperature 98.1 F Pulse Rate 77 77 88 Respiratory Rate 18 Blood Pressure 140/90 Pulse Oximetry 99 08/14/18 14:00 08/14/18 14:34 08/14/18 15:00 Temperature Pulse Rate 80 74 Respiratory Rate Blood Pressure Pulse Oximetry 98 08/14/18 16:00 08/14/18 17:00 08/14/18 17:38 Temperature 97.9 F Pulse Rate 76 75 72 Respiratory Rate 19 Blood Pressure 151/85 H Pulse Oximetry 100 08/14/18 19:00 08/14/18 20:00 08/14/18 21:00 Temperature 98.2 F Pulse Rate 73 72 68 Respiratory Rate 16 Blood Pressure 135/65 Pulse Oximetry 94 L 08/14/18 22:00 08/14/18 23:00 08/15/18 00:00 Temperature 97.3 F L Pulse Rate 70 77 72 Respiratory Rate 14 Blood Pressure 140/77 Pulse Oximetry 94 L 08/15/18 01:00 08/15/18 02:00 08/15/18 03:00 Temperature Pulse Rate 74 66 65 Respiratory Rate Blood Pressure Pulse Oximetry 08/15/18 04:00 08/15/18 05:00 08/15/18 06:00 Temperature 97.4 F L Pulse Rate 69 66 68 Respiratory Rate 18 Blood Pressure 124/64 Pulse Oximetry 97 08/15/18 07:00 08/15/18 08:00 Temperature 97.5 F L Pulse Rate 69 79 Respiratory Rate 16 Blood Pressure 146/84 H Pulse Oximetry 98 Intake & Output 08/14/18 08/15/18 08/15/18 18:59 06:59 18:59 Intake Total 620 / 620 720 / 720 Output Total 3200 / 3200 100 / 100 Balance -2580 / -2580 620 / 620 Weight 81 kg Intake: Oral 620 / 620 720 / 720 Output: Urine 700 / 700 100 / 100 Hemodialysis Amount 2500 / 2500 Other: Date of Last Bowel Movement 08/14/18 08/14/18 # Bowel Movements 1 Narrative: GENERAL: mal-nourished, well-developed patient. SKIN: Warm and dry. HEAD: Normocephalic. EYES: No scleral icterus. No injection or drainage. NECK: Supple, trachea midline. No JVD or lymphadenopathy. CARDIOVASCULAR: Regular rate and rhythm without murmurs, gallops, or rubs. RESPIRATORY: Breath sounds equal bilaterally. No accessory muscle use. GASTROINTESTINAL: Abdomen soft, non-tender, nondistended. EXTREMITIES: Muscle wasting present NEUROLOGICAL: Awake, alert, and oriented x 3. Non-focal. Assessment and Plan - Assessment (1) End stage renal disease Code(s): N18.6 - End stage renal disease Status: Acute (2) C. difficile colitis Code(s): A04.72 - Enterocolitis due to Clostridium difficile, not specified as recurrent Status: Acute (3) Prostate cancer metastatic to bone Code(s): C61 - Malignant neoplasm of prostate; C79.51 - Secondary malignant neoplasm of bone Status: Acute (4) GI (gastrointestinal bleed) Code(s): K92.2 - Gastrointestinal hemorrhage, unspecified Status: Acute - Plan Patient had hemodialysis on Tuesday 2-1/2 L taken off he tolerated well continue to be weak has C. difficile colitis he stopped treatment on his own, this has been resumed, he received blood transfusions He could not tolerate vancomycin, plan is to place him on Flagyl for possible discharge He has underlying metastatic prostate cancer which is in advanced stages
--- NOTE | 2018-08-15 12:33 | P.PN ---
Subjective Interval history: Follow-up non-ST elevation SD August 14, 2018-patient seen and examined, he was in dialysis. Denies any chest pain or shortness of breath. Vitals stable. August 15, 2018-patient seen and examined, reporting feeling sick to her stomach secondary to vancomycin p.o. Currently with no chest pain or shortness of breath. Physical Exam Vital signs: Vital Signs 08/14/18 13:00 08/14/18 14:00 08/14/18 14:34 Temperature Pulse Rate 88 80 Respiratory Rate Blood Pressure Pulse Oximetry 98 08/14/18 15:00 08/14/18 16:00 08/14/18 17:00 Temperature 97.9 F Pulse Rate 74 76 75 Respiratory Rate 19 Blood Pressure 151/85 H Pulse Oximetry 100 08/14/18 17:38 08/14/18 19:00 08/14/18 20:00 Temperature 98.2 F Pulse Rate 72 73 72 Respiratory Rate 16 Blood Pressure 135/65 Pulse Oximetry 94 L 08/14/18 21:00 08/14/18 22:00 08/14/18 23:00 Temperature Pulse Rate 68 70 77 Respiratory Rate Blood Pressure Pulse Oximetry 08/15/18 00:00 08/15/18 01:00 08/15/18 02:00 Temperature 97.3 F L Pulse Rate 72 74 66 Respiratory Rate 14 Blood Pressure 140/77 Pulse Oximetry 94 L 08/15/18 03:00 08/15/18 04:00 08/15/18 05:00 Temperature 97.4 F L Pulse Rate 65 69 66 Respiratory Rate 18 Blood Pressure 124/64 Pulse Oximetry 97 08/15/18 06:00 08/15/18 07:00 08/15/18 08:00 Temperature 97.5 F L Pulse Rate 68 69 79 Respiratory Rate 16 Blood Pressure 146/84 H Pulse Oximetry 98 Intake & Output 08/14/18 08/15/18 08/15/18 18:59 06:59 18:59 Intake Total 620 / 620 720 / 720 Output Total 3200 / 3200 100 / 100 Balance -2580 / -2580 620 / 620 Weight 81 kg Intake: Oral 620 / 620 720 / 720 Output: Urine 700 / 700 100 / 100 Hemodialysis Amount 2500 / 2500 Other: Date of Last Bowel Movement 08/14/18 08/14/18 # Bowel Movements 1 Narrative: GENERAL: mal-nourished, well-developed patient. SKIN: Warm and dry. HEAD: Normocephalic. EYES: No scleral icterus. No injection or drainage. NECK: Supple, trachea midline. No JVD or lymphadenopathy. CARDIOVASCULAR: Regular rate and rhythm without murmurs, gallops, or rubs. RESPIRATORY: Breath sounds equal bilaterally. No accessory muscle use. GASTROINTESTINAL: Abdomen soft, non-tender, nondistended. EXTREMITIES: Muscle wasting present NEUROLOGICAL: Awake, alert, and oriented x 3. Non-focal. Results - Labs CBC & Chem 7: 08/15/18 05:23 08/15/18 05:23 Laboratory Results - last 24 hr 08/13/18 08/15/18 08/15/18 19:00 05:23 05:23 WBC 10.5 RBC 3.03 L Hgb 9.1 L Hct 26.8 L MCV 88.5 MCH 30.0 MCHC 33.9 RDW 18.0 H Plt Count 163 MPV 7.7 Prelim Diff (Auto) Slide review pending Neut % (Auto) 59.3 Lymph % (Auto) 33.6 [place] % (Auto) 5.1 Eos % (Auto) 0.9 Baso % (Auto) 1.1 Neut # (Auto) 6.2 Lymph # (Auto) 3.5 [place] # (Auto) 0.5 Eos # (Auto) 0.1 Baso # (Auto) 0.1 WBC Differential Manual diff final Seg Neuts % (Manual) 53 Band Neuts % (Manual) 9 H Lymphocytes % (Manual) 30 Monocytes % (Manual) 6 Myelocytes % (Man) 2 H Abs Neuts (Manual) 6.7 Differential Comment . Toxic Vacuolation Present H Platelet Estimate Normal Platelet Morphology Normal Basophilic Stippling Faint H Sodium 138 Potassium 3.4 L Chloride 102 Carbon Dioxide 28.7 D Anion Gap 7 BUN 17 Creatinine 3.37 H Estimated GFR 18 L Random Glucose 97 Calcium 7.9 L Total Bilirubin 0.3 AST 20 ALT 8 L Alkaline Phosphatase 985 H Total Protein 5.3 L D Albumin 2.2 L Triglycerides 120 Cholesterol 119 L LDL Cholesterol, Calc 54 HDL Cholesterol 40.9 Cholesterol/HDL Ratio 2.90 Stool C.difficile Ag Positive H Stool C.difficile Toxin Negative Stl C.difficile DNA Amp Positive H St C. diff Tox Epid 027 Positive H - Procedures none Assessment and Plan - Plan 63-year-old man with Elevated cardiac enzyme Initially admitted as NSTEMI however elevated cardiac enzymes likely due from ESRD -Continue ACS ruled out per protocol, and elevated troponin I may be due secondary to renal disease. -Heparin note states as per cardiology's recommendation on admission -Cardiology recommended medical management -Continue topical nitropaste Acute Pulmonary Edema Acute on chronic diastolic CHF exacerbation -Currently on Lasix IV Acute on chronic anemia with concern for GI bleed -Status post 2 unit packed red blood cells transfused -Appreciate input from gastroenterology -Continue to monitor H&H End-stage renal disease on hemodialysis Tuesday, Tuesday, & Fridays -Hemodialysis per nephrology -Monitor renal functions Malnutrition -consult hand touch up painter for supplemental recommendations History of resistant C. difficile -C. difficile PCR positive -Patient was started back on vancomycin p.o. August 14, 2018, however stated it made him sick to his stomach and requested a different treatment. Will start instead Flagyl 500 mg p.o. every 8 hour and discontinue Vanco p.o. History of prostate cancer -Continue bicalutamide and tamsulosin DVT prophylaxis -chemoprophylaxis contraindicated due to anemia -SCDs contraindicated due to severe pitting edema in bilateral lower extremities Transfer to [facility] Monitor CBC/BMP Continue with PT
--- NOTE | 2018-08-15 14:58 | P.PNCA ---
Subjective Interval history: denies chest pain or dyspnea Medications and Allergies Active Medications: Active Medications Acetaminophen (Tylenol) 650 mg PO UNSCH PRN PRN Reason: SEE LABEL COMMENTS Acetaminophen (Tylenol) 650 mg PO Q4H PRN PRN Reason: HEADACHE Last Admin: 08/15/18 11:30 Dose: 650 mg Aspirin (Ecotrin) 81 mg PO DAILY CYNDIE Last Admin: 08/15/18 08:56 Dose: 81 mg Bicalutamide (Casodex) 50 mg PO HS [facility] Last Admin: 08/14/18 20:14 Dose: 50 mg Clonidine HCl (Catapres) 0.1 mg PO UNSCH PRN PRN Reason: SEE LABEL COMMENTS Diphenhydramine HCl (Benadryl) 25 mg PO UNSCH PRN PRN Reason: SEE LABEL COMMENTS Epoetin Hermes (Epogen Inj) 10,000 unit IV.PUSH UNSCH PRN PRN Reason: SEE LABEL COMMENTS Last Admin: 08/14/18 12:18 Dose: 10,000 unit Gelatin (Gelfoam 12 Mm/7 Mm Topical) 1 foam TOPICAL PRN PRN PRN Reason: help stop bleeding from site Gentamicin Sulfate (Gentamicin Inj) 20 mg OTHER WITH DIALYSIS PRN PRN Reason: Dwell Gentamycin Lock Last Admin: 08/14/18 12:18 Dose: 20 mg Heparin Sodium (Porcine) (Heparin Inj) 8,000 units OTHER WITH DIALYSIS PRN PRN Reason: for machine prime Heparin Sodium (Porcine) (Heparin Inj) 1,000 units OTHER WITH DIALYSIS PRN PRN Reason: Dwell Heparin to Fill Catheter Last Admin: 08/14/18 12:19 Dose: 1,000 units Albumin Human (Flexbumin 25% Inj) 100 mls @ 60 mls/hr IV.SIG WITH DIALYSIS PRN PRN Reason: hypotension / volume replace Sodium Chloride (Ns Inj) 1,000 mls @ 0 mls/hr OTHER .Q0M PRN PRN Reason: for prime and rinse back Sodium Chloride (Ns Inj) 1,000 mls @ 200 mls/hr OTHER .Q5H PRN PRN Reason: for dialyzer flush PRN Sodium Chloride (Ns Inj) 1,000 mls @ 0 mls/hr IV.CONT .Q0M PRN PRN Reason: hypotension / volume replace Mannitol (Mannitol Inj) 12.5 gm IV.PUSH UNSCH PRN PRN Reason: hypotension / volume replace Megestrol Acetate (Megace Liq) 400 mg PO BID [facility] Last Admin: 08/15/18 08:56 Dose: 400 mg Metronidazole (Flagyl) 500 mg PO Q8HR [facility] Nitroglycerin (Nitrostat Sl) 0.4 mg SL Q5M PRN PRN Reason: CHEST PAIN Nitroglycerin (Nitro-Bid 2% Oint) 0.5 inch TOPICAL Q6HR [facility] Last Admin: 08/15/18 11:58 Dose: 0.5 inch Pantoprazole Sodium (Protonix Inj) 40 mg IV.PUSH Q12H [facility] Last Admin: 08/15/18 13:00 Dose: 40 mg Sodium Chloride (Ns Flush) 2 ml IV.FLUSH BID [facility] Last Admin: 08/15/18 08:57 Dose: 2 ml Sodium Chloride (Ns Flush) 2 ml IV.FLUSH PRN PRN PRN Reason: FLUSH AFTER USING IV ACCESS Sodium Chloride (Ns Flush) 5 ml IV.FLUSH PRN PRN PRN Reason: flush each lumen during HD Tamsulosin HCl (Flomax) 0.4 mg PO DAILY [facility] Last Admin: 08/15/18 08:56 Dose: 0.4 mg Allergies Allergy/AdvReac Type Severity Reaction Status Date / Time Tetanus Vaccines and Toxoid Allergy Severe Fever Verified 08/13/18 15:46 amoxicillin AdvReac Mild Nausea/Vomi Verified 08/13/18 15:46 ting Home Medications Medication Instructions Recorded Confirmed Type bicalutamide 50 mg PO HS 07/09/18 08/13/18 History tamsulosin [Flomax] 0.4 mg PO DAILY 07/09/18 08/13/18 History aspirin 325 mg PO DAILY 08/13/18 08/13/18 History Physical Exam Vital signs: Vital Signs 08/14/18 15:00 08/14/18 16:00 08/14/18 17:00 Temperature 97.9 F Pulse Rate 74 76 75 Respiratory Rate 19 Blood Pressure 151/85 H Pulse Oximetry 100 08/14/18 17:38 08/14/18 19:00 08/14/18 20:00 Temperature 98.2 F Pulse Rate 72 73 72 Respiratory Rate 16 Blood Pressure 135/65 Pulse Oximetry 94 L 08/14/18 21:00 08/14/18 22:00 08/14/18 23:00 Temperature Pulse Rate 68 70 77 Respiratory Rate Blood Pressure Pulse Oximetry 08/15/18 00:00 08/15/18 01:00 08/15/18 02:00 Temperature 97.3 F L Pulse Rate 72 74 66 Respiratory Rate 14 Blood Pressure 140/77 Pulse Oximetry 94 L 08/15/18 03:00 08/15/18 04:00 08/15/18 05:00 Temperature 97.4 F L Pulse Rate 65 69 66 Respiratory Rate 18 Blood Pressure 124/64 Pulse Oximetry 97 08/15/18 06:00 08/15/18 07:00 08/15/18 08:00 Temperature 97.5 F L Pulse Rate 68 69 72 Respiratory Rate 16 Blood Pressure 146/84 H Pulse Oximetry 98 08/15/18 09:00 08/15/18 10:00 08/15/18 11:00 Temperature Pulse Rate 74 70 79 Respiratory Rate Blood Pressure Pulse Oximetry 08/15/18 12:00 08/15/18 13:45 Temperature 97.5 F L Pulse Rate 70 Respiratory Rate 16 Blood Pressure 130/81 Pulse Oximetry 99 97 Intake & Output 08/14/18 08/15/18 08/15/18 18:59 06:59 18:59 Intake Total 620 / 620 720 / 720 Output Total 3200 / 3200 100 / 100 Balance -2580 / -2580 620 / 620 Weight 81 kg Intake: Oral 620 / 620 720 / 720 Output: Urine 700 / 700 100 / 100 Hemodialysis Amount 2500 / 2500 Other: Date of Last Bowel Movement 08/14/18 08/14/18 # Bowel Movements 1 - Constitutional no acute distress - Routine HEENT Exam Head: Present: normocephalic - Routine Neck Exam Present: supple - Routine Respiratory Exam Present: CTA bilaterally - Routine Cardiovascular Exam Present: S1, S2 - Routine Abdominal Exam Present: soft - Routine Extremities Exam Comments: no pablo Results 08/15/18 05:23 08/15/18 05:23 Cardiac Enzymes 08/13/18 08/13/18 08/13/18 Range/Units 17:08 17:08 17:08 AST 25 (15-37) U/L CK-MB (CK-2) 3.3 (0.5-3.6) ng/mL Troponin I 2.31 H* (0.02-0.05) ng/mL B-Natriuretic Peptide Greater than 5000 H (0-100) pg/mL 08/13/18 08/14/18 08/15/18 Range/Units 22:52 06:42 05:23 AST 22 20 (15-37) U/L CK-MB (CK-2) (0.5-3.6) ng/mL Troponin I 1.93 H* 2.14 H* (0.02-0.05) ng/mL B-Natriuretic Peptide (0-100) pg/mL Coagulation 08/13/18 08/13/18 Range/Units 17:08 17:08 APTT 35.8 H (23.4-31.7) sec B-Natriuretic Peptide Greater than 5000 H (0-100) pg/mL Lipids 08/15/18 Range/Units 05:23 Triglycerides 120 (42-150) mg/dL Cholesterol 119 L (120-200) mg/dL HDL Cholesterol 40.9 (40.0-60.0) mg/dL Cholesterol/HDL Ratio 2.90 Ratio CBC 08/13/18 08/14/18 08/15/18 Range/Units 17:08 06:42 05:23 WBC 12.7 H 11.3 H 10.5 (4.0-11.0) th/mm3 RBC 2.38 L 3.11 L 3.03 L (4.50-5.90) mil/mm3 Hgb 6.8 L* 9.3 L D 9.1 L (13.0-17.0) gm/dL Hct 21.3 L 28.0 L 26.8 L (39.0-51.0) % Plt Count 219 166 163 (150-450) th/mm3 Neut # (Auto) 7.1 6.2 (1.8-7.7) th/mm3 Lymph # (Auto) 3.5 3.5 (1.0-4.8) th/mm3 Crowley # (Auto) 0.6 0.5 (0.0-0.9) th/mm3 Eos # (Auto) 0.1 0.1 (0.0-0.4) th/mm3 Baso # (Auto) 0.1 0.1 (0.0-0.2) th/mm3 Comprehensive Metabolic Panel 08/13/18 08/14/18 08/15/18 Range/Units 17:08 06:42 05:23 Sodium 135 L 135 L 138 (136-145) meq/L Potassium 4.1 4.0 3.4 L (3.5-5.1) meq/L Chloride 101 104 102 (98-107) meq/L Carbon Dioxide 20.9 L 18.9 L 28.7 D (21.0-32.0) meq/L BUN 19 H 23 H 17 (7-18) mg/dL Creatinine 4.40 H 4.65 H 3.37 H (0.60-1.30) mg/dL Calcium 7.9 L 7.8 L 7.9 L (8.5-10.1) mg/dL AST 25 22 20 (15-37) U/L ALT 11 L 10 L 8 L (12-78) U/L Alkaline Phosphatase 1096 H 1063 H 985 H (45-117) U/L Total Protein 6.2 L 5.9 L 5.3 L D (6.4-8.2) g/dL Albumin 2.4 L 2.4 L 2.2 L (3.4-5.0) g/dL Intake and Output 08/14/18 08/15/18 08/15/18 22:59 06:59 14:59 Intake Total 620 / 620 720 / 720 Output Total 700 / 700 100 / 100 Balance -80 / -80 620 / 620 Intake: Oral 620 / 620 720 / 720 Output: Urine 700 / 700 100 / 100 Other: Date of Last Bowel Movement 08/14/18 08/14/18 # Bowel Movements 1 Weight 81 kg - Imaging and Cardiology Imaging: Impressions Chest X-Ray 08/13/18 16:19 CONCLUSION: 1. Cardiomegaly with pulmonary vascular congestion. 2. Mild airspace disease in the left lower lung zone with associated probable trace pleural effusion. Assessment and Plan - Assessment (1) NSTEMI (non-ST elevated myocardial infarction) Code(s): I21.4 - Non-ST elevation (NSTEMI) myocardial infarction Status: Acute (2) Anemia Code(s): D64.9 - Anemia, unspecified Status: Acute (3) End stage renal disease Code(s): N18.6 - End stage renal disease Status: Acute (4) Acute kidney injury superimposed on chronic kidney disease Code(s): N17.9 - Acute kidney failure, unspecified; N18.9 - Chronic kidney disease, unspecified Status: Acute (5) Fever Code(s): R50.9 - Fever, unspecified Status: Acute - Plan 1.) NSTEMI - assymptomatic s/p transfsuin, suspect elevated troponin secondary to severe anemia and posibbly underlying cad, and nonspecificaly elevated due to esrd, ac and beta fab held due to severe symptomatic anemia requiring transfusion, (2) Anemia Qualifiers: Anemia type: due to chronic kidney disease Chronic kidney disease stage: on chronic dialysis Qualified Code(s): N18.6 - End stage renal disease; D63.1 - Anemia in chronic kidney disease; Z99.2 - Dependence on renal dialysis (5) Fever Qualifiers: Fever type: unspecified Qualified Code(s): R50.9 - Fever, unspecified
[2018-08-15] MEDS: metroNIDAZOLE 500 MG Tablet PO SCH ×2 (16:32→22:16)
--- NOTE | 2018-08-15 19:07 | P.PNGI ---
Subjective Interval history: Patient sitting up in bed Denies any nausea or vomiting Denies any noted bleeding or abdominal pain States he ate a croissant and cinnamon roll today. <Nancy Patterson - Last Filed: 08/15/18 19:04> Physical Exam Vital signs: Vital Signs 08/14/18 20:00 08/14/18 21:00 08/14/18 22:00 Temperature 98.2 F Pulse Rate 72 68 70 Respiratory Rate 16 Blood Pressure 135/65 Pulse Oximetry 94 L 08/14/18 23:00 08/15/18 00:00 08/15/18 01:00 Temperature 97.3 F L Pulse Rate 77 72 74 Respiratory Rate 14 Blood Pressure 140/77 Pulse Oximetry 94 L 08/15/18 02:00 08/15/18 03:00 08/15/18 04:00 Temperature 97.4 F L Pulse Rate 66 65 69 Respiratory Rate 18 Blood Pressure 124/64 Pulse Oximetry 97 08/15/18 05:00 08/15/18 06:00 08/15/18 07:00 Temperature Pulse Rate 66 68 69 Respiratory Rate Blood Pressure Pulse Oximetry 08/15/18 08:00 08/15/18 09:00 08/15/18 10:00 Temperature 97.5 F L Pulse Rate 72 74 70 Respiratory Rate 16 Blood Pressure 146/84 H Pulse Oximetry 98 08/15/18 11:00 08/15/18 12:00 08/15/18 13:00 Temperature 97.5 F L Pulse Rate 79 70 68 Respiratory Rate 16 Blood Pressure 130/81 Pulse Oximetry 99 08/15/18 13:45 08/15/18 14:00 08/15/18 15:00 Temperature Pulse Rate 66 65 Respiratory Rate Blood Pressure Pulse Oximetry 97 08/15/18 16:00 08/15/18 17:00 08/15/18 18:00 Temperature 98.2 F Pulse Rate 68 68 74 Respiratory Rate 16 Blood Pressure 137/70 Pulse Oximetry 99 Intake & Output 08/15/18 08/15/18 08/16/18 06:59 18:59 06:59 Intake Total 720 / 720 480 / 480 Output Total 100 / 100 175 / 175 Balance 620 / 620 305 / 305 Weight 81 kg Intake: Oral 720 / 720 480 / 480 Output: Urine 100 / 100 175 / 175 Other: Date of Last Bowel Movement 08/14/18 - Constitutional no acute distress, chronically ill appearing - Routine HEENT Exam Head: Present: normocephalic - Routine Respiratory Exam Present: CTA bilaterally. Absent: accessory muscle use - Routine Abdominal Exam Present: soft, normoactive bowel sounds. Absent: tenderness, distended, guarding - Routine Skin Exam Present: dry, warm. Absent: pallor - Routine Neurological Exam Present: alert <Patterson,Nancy - Last Filed: 08/15/18 19:04> Vital signs: Vital Signs 08/15/18 15:00 08/15/18 16:00 08/15/18 17:00 Temperature 98.2 F Pulse Rate 65 68 68 Respiratory Rate 16 Blood Pressure 137/70 Pulse Oximetry 99 08/15/18 18:00 08/15/18 20:00 08/15/18 20:30 Temperature 97.5 F L Pulse Rate 74 73 Respiratory Rate 17 18 Blood Pressure 163/85 H Pulse Oximetry 99 08/15/18 23:41 08/16/18 00:00 08/16/18 04:00 Temperature 97.4 F L 98.2 F Pulse Rate 66 76 Respiratory Rate 18 16 Blood Pressure 140/71 157/81 H Pulse Oximetry 98 98 95 08/16/18 08:00 Temperature 98.7 F Pulse Rate 83 Respiratory Rate 19 Blood Pressure 159/77 H Pulse Oximetry 97 Intake & Output 08/15/18 08/16/18 08/16/18 18:59 06:59 18:59 Intake Total 480 / 480 0 / 0 Output Total 175 / 175 100 / 100 1999 Balance 305 / 305 -100 / -100 -1999 -1999 Weight 77.3 kg Intake: Oral 480 / 480 0 / 0 Output: Urine 175 / 175 100 / 100 Hemodialysis Amount 1999 Other: Date of Last Bowel Movement 08/14/18 08/14/18 # Bowel Movements 0 Weight On Admission 76.9 kg <Wayne Naidu - Last Filed: 08/16/18 14:23> Results - Labs CBC & Chem 7: 08/15/18 05:23 08/15/18 05:23 Laboratory Results - last 24 hr 08/13/18 08/15/18 08/15/18 19:00 05:23 05:23 WBC 10.5 RBC 3.03 L Hgb 9.1 L Hct 26.8 L MCV 88.5 MCH 30.0 MCHC 33.9 RDW 18.0 H Plt Count 163 MPV 7.7 Prelim Diff (Auto) Slide review pending Neut % (Auto) 59.3 Lymph % (Auto) 33.6 Wolfe % (Auto) 5.1 Eos % (Auto) 0.9 Baso % (Auto) 1.1 Neut # (Auto) 6.2 Lymph # (Auto) 3.5 Wolfe # (Auto) 0.5 Eos # (Auto) 0.1 Baso # (Auto) 0.1 WBC Differential Manual diff final Seg Neuts % (Manual) 53 Band Neuts % (Manual) 9 H Lymphocytes % (Manual) 30 Monocytes % (Manual) 6 Myelocytes % (Man) 2 H Abs Neuts (Manual) 6.7 Differential Comment . Toxic Vacuolation Present H Platelet Estimate Normal Platelet Morphology Normal Basophilic Stippling Faint H Sodium 138 Potassium 3.4 L Chloride 102 Carbon Dioxide 28.7 D Anion Gap 7 BUN 17 Creatinine 3.37 H Estimated GFR 18 L Random Glucose 97 Calcium 7.9 L Total Bilirubin 0.3 AST 20 ALT 8 L Alkaline Phosphatase 985 H Total Protein 5.3 L D Albumin 2.2 L Triglycerides 120 Cholesterol 119 L LDL Cholesterol, Calc 54 HDL Cholesterol 40.9 Cholesterol/HDL Ratio 2.90 Stool C.difficile Ag Positive H Stool C.difficile Toxin Negative - Procedures none <Nancy Patterson - Last Filed: 08/15/18 19:04> - Labs CBC & Chem 7: 08/16/18 06:57 08/16/18 06:57 Laboratory Results - last 24 hr 08/16/18 08/16/18 06:57 06:57 WBC 9.5 RBC 3.02 L Hgb 9.2 L Hct 26.9 L MCV 89.0 MCH 30.4 MCHC 34.2 RDW 18.3 H Plt Count 150 MPV 7.3 Neut % (Auto) 66.9 Lymph % (Auto) 25.6 Wolfe % (Auto) 6.3 Eos % (Auto) 0.8 Baso % (Auto) 0.4 Neut # (Auto) 6.3 Lymph # (Auto) 2.4 Wolfe # (Auto) 0.6 Eos # (Auto) 0.1 Baso # (Auto) 0.0 WBC Differential . Differential Comment Auto diff final Sodium 140 Potassium 3.8 Chloride 105 Carbon Dioxide 25.7 Anion Gap 9 BUN 23 H Creatinine 4.17 H Estimated GFR 14 L Random Glucose 111 H Calcium 7.7 L Total Bilirubin 0.3 AST 60 H ALT 8 L Alkaline Phosphatase 1043 H Total Protein 5.3 L Albumin 2.2 L <Wayne Naidu Ronal - Last Filed: 08/16/18 14:23> Assessment and Plan (1) GI (gastrointestinal bleed) Status: Acute Code(s): K92.2 - Gastrointestinal hemorrhage, unspecified - Plan This patient is a 63-year-old male with past medical history of end-stage renal disease, anemia, hypertension, prostate cancer and resistant C. difficile. Patient presented to the emergency room with complaint of shortness of breath and cough. At that time he was found to have elevated troponin, hemoglobin 6.8 with stool faintly positive for occult blood, lower extremity edema with a BNP greater than 5000. Patient denies hematemesis, hematuria or hematochezia. Patient also denies melena. Upon consultation, patient reports that he has had nausea for 1 month with poor appetite. Patient denies any difficulty swallowing, odynophagia or heartburn. Patient denies ever having had an EGD or colonoscopy in the past and states that he would not be agreeable to have either one done at this time. Of note, patient does report that he takes aspirin 325 mg p.o. 3 times a week for joint pain. Patient denies any known family history for gastrointestinal disorders. Patient states that he smokes 6 cigarettes daily and drinks 1 vodka with fruit juice drink every night with dinner. Our service has been consulted to evaluate patient for possible GI bleeding. GI bleeding Patient presented to the emergency room with complaint of shortness of breath. On arrival, hemoglobin 6.8 with stool faintly positive for occult blood. Endorses nausea with poor appetite for 1 month. Patient was transfused with 2 units packed RBCs. Hemoglobin 9.3 hematocrit 28.0 post-transfusion *08/14/2018 total bilirubin 0.7 AST 22 ALT 10 alk phos 1063 troponin II 0.14 BNP greater than 5000 Patient currently undergoing hemodialysis during consultation. Patient states he has not agreeable to have either colonoscopy or a EGD done at this time. He states, "I have too many other illnesses going on". I advised patient that we would continue to monitor him closely. GI bleeding Patient denies any noted bleeding. Hemoglobin 9.1 hematocrit 26.8 Plan -Clear liquid diet-renal/may advance as tolerated if no active bleeding present -Monitor patient for bleeding -Monitor labs-hemoglobin and hematocrit -Transfuse if needed -May consider bleeding scan if bleeding occurs -Avoid anticoagulants -Avoid NSAIDs and aspirin -Pantoprazole 40 mg IV twice daily -Supportive care -Further recommendations to follow This patient has been seen by myself and Dr. Naidu and this note is written on his behalf - Attending Attestation Dr. Naidu <Nancy Patterson - Last Filed: 08/15/18 19:04> (1) GI (gastrointestinal bleed) Status: Acute Code(s): K92.2 - Gastrointestinal hemorrhage, unspecified - Attending Attestation Agree with above assessment and plan. <Wayne Naidu - Last Filed: 08/16/18 14:23>
[2018-08-16] MEDS: Pantoprazole Inj 40 MG Vial IV.PUSH SCH ×2 (02:50→14:25)
[2018-08-16] MEDS: metroNIDAZOLE 500 MG Tablet PO SCH ×2 (06:08→14:25)
[2018-08-16 07:46] LABS: Baso % (Auto) 0.4 % (0.0-2.0); Eos # (Auto) 0.1 th/mm3 (0.0-0.4); Eos % (Auto) 0.8 % (0.0-4.0); Hematocrit 26.9 % (39.0-51.0); Hemoglobin 9.2 gm/dL (13.0-17.0); Lymph # (Auto) 2.4 th/mm3 (1.0-4.8); Lymph % (Auto) 25.6 % (9.0-44.0); Mean Corpuscular HGB Conc 34.2 % (32.0-36.0); Mean Corpuscular Hemoglobin 30.4 pg (27.0-34.0); Mean Platelet Volume 7.3 fL (7.0-11.0); Mono # (Auto) 0.6 th/mm3 (0.0-0.9); Mono % (Auto) 6.3 % (0.0-8.0); Neut # (Auto) 6.3 th/mm3 (1.8-7.7); Neut % (Auto) 66.9 % (16.0-70.0); Platelet Count 150 th/mm3 (150-450); Red Blood Count 3.02 mil/mm3 (4.50-5.90); Red Cell Distribution Width 18.3 % (11.6-17.2); White Blood Count 9.5 th/mm3 (4.0-11.0)
[2018-08-16 08:32] LABS: Alanine Aminotransferase 8 U/L (12-78); Albumin 2.2 g/dL (3.4-5.0); Anion Gap 9 meq/L (5-15); Aspartate Aminotransferase 60 U/L (15-37); Blood Urea Nitrogen 23 mg/dL (7-18); Calcium 7.7 mg/dL (8.5-10.1); Carbon Dioxide 25.7 meq/L (21.0-32.0); Chloride 105 meq/L (98-107); Glomerular Filtration Rate 14 mL/min (>89); Glucose,Random 111 mg/dL (74-106); Potassium 3.8 meq/L (3.5-5.1); Sodium 140 meq/L (136-145)
[2018-08-16 08:42] LABS: Alkaline Phosphatase 1043 U/L (45-117); Total Protein 5.3 g/dL (6.4-8.2)
[2018-08-16] MEDS: Heparin 10,000 UNITS/10 ML Vial (for IV use) OTHER PRN (12:26)
--- NOTE | 2018-08-16 14:16 | P.DCO ---
- Physical Therapy Order: Evaluate and treat, Improve ambulation, Strength and gait training - Home Health Nursing Order: Medical education, Signs/symptoms of disease process, Nursing assessment with vital signs - Case Management Consult Case Management Consult-Home Health: Yes - Certification I have seen patient Madhu Ross on 08/16/18. My clinical findings support the need for the requested home health care services because: Limited mobility due to disease progression, Patient has SOB, Limited ability to care for self, Need for psychosocial assistance, High risk of falls, Infection with risk of complications I certify that my clinical findings support that this patient is homebound because: Unsteady gait/balance, Unsafe to leave home unassisted, Need for psychosocial assistance, Non-ambulatory: confined to bed or chair, Unable to use public transportation
[2018-08-16] MEDS: Megestrol Acetate Liq 400 MG/10 ML UDC PO SCH (14:22)
--- NOTE | 2018-08-16 14:34 | P.PNCA ---
Subjective Interval history: assymptomatic in nad Medications and Allergies Active Medications: Active Medications Acetaminophen (Tylenol) 650 mg PO UNSCH PRN PRN Reason: SEE LABEL COMMENTS Acetaminophen (Tylenol) 650 mg PO Q4H PRN PRN Reason: HEADACHE Last Admin: 08/15/18 19:46 Dose: 650 mg Aspirin (Ecotrin) 81 mg PO DAILY CYNDIE Last Admin: 08/16/18 14:25 Dose: 81 mg Bicalutamide (Casodex) 50 mg PO HS CYNDIE Last Admin: 08/15/18 22:16 Dose: 50 mg Clonidine HCl (Catapres) 0.1 mg PO UNSCH PRN PRN Reason: SEE LABEL COMMENTS Diphenhydramine HCl (Benadryl) 25 mg PO UNSCH PRN PRN Reason: SEE LABEL COMMENTS Epoetin Hermes (Epogen Inj) 10,000 unit IV.PUSH UNSCH PRN PRN Reason: SEE LABEL COMMENTS Last Admin: 08/16/18 11:30 Dose: 10,000 unit Gelatin (Gelfoam 12 Mm/7 Mm Topical) 1 foam TOPICAL PRN PRN PRN Reason: help stop bleeding from site Gentamicin Sulfate (Gentamicin Inj) 20 mg OTHER WITH DIALYSIS PRN PRN Reason: Dwell Gentamycin Lock Last Admin: 08/16/18 12:26 Dose: 20 mg Heparin Sodium (Porcine) (Heparin Inj) 8,000 units OTHER WITH DIALYSIS PRN PRN Reason: for machine prime Heparin Sodium (Porcine) (Heparin Inj) 1,000 units OTHER WITH DIALYSIS PRN PRN Reason: Dwell Heparin to Fill Catheter Last Admin: 08/16/18 12:26 Dose: 1,000 units Albumin Human (Flexbumin 25% Inj) 100 mls @ 60 mls/hr IV.SIG WITH DIALYSIS PRN PRN Reason: hypotension / volume replace Sodium Chloride (Ns Inj) 1,000 mls @ 0 mls/hr OTHER .Q0M PRN PRN Reason: for prime and rinse back Sodium Chloride (Ns Inj) 1,000 mls @ 200 mls/hr OTHER .Q5H PRN PRN Reason: for dialyzer flush PRN Sodium Chloride (Ns Inj) 1,000 mls @ 0 mls/hr IV.CONT .Q0M PRN PRN Reason: hypotension / volume replace Mannitol (Mannitol Inj) 12.5 gm IV.PUSH UNSCH PRN PRN Reason: hypotension / volume replace Megestrol Acetate (Megace Liq) 400 mg PO BID [facility] Last Admin: 08/16/18 14:22 Dose: Not Given Metronidazole (Flagyl) 500 mg PO Q8HR [facility] Last Admin: 08/16/18 14:25 Dose: Not Given Nitroglycerin (Nitrostat Sl) 0.4 mg SL Q5M PRN PRN Reason: CHEST PAIN Nitroglycerin (Nitro-Bid 2% Oint) 0.5 inch TOPICAL Q6HR [facility] Last Admin: 08/16/18 14:25 Dose: 0.5 inch Pantoprazole Sodium (Protonix Inj) 40 mg IV.PUSH Q12H [facility] Last Admin: 08/16/18 14:25 Dose: 40 mg Sodium Chloride (Ns Flush) 2 ml IV.FLUSH BID [facility] Last Admin: 08/16/18 14:25 Dose: Not Given Sodium Chloride (Ns Flush) 2 ml IV.FLUSH PRN PRN PRN Reason: FLUSH AFTER USING IV ACCESS Sodium Chloride (Ns Flush) 5 ml IV.FLUSH PRN PRN PRN Reason: flush each lumen during HD Tamsulosin HCl (Flomax) 0.4 mg PO DAILY [facility] Last Admin: 08/16/18 14:24 Dose: 0.4 mg Allergies Allergy/AdvReac Type Severity Reaction Status Date / Time Tetanus Vaccines and Toxoid Allergy Severe Fever Verified 08/13/18 15:46 amoxicillin AdvReac Mild Nausea/Vomi Verified 08/13/18 15:46 ting Home Medications Medication Instructions Recorded Confirmed Type bicalutamide 50 mg PO HS 07/09/18 08/13/18 History tamsulosin [Flomax] 0.4 mg PO DAILY 07/09/18 08/13/18 History aspirin 325 mg PO DAILY 08/13/18 08/13/18 History Physical Exam Vital signs: Vital Signs 08/15/18 15:00 08/15/18 16:00 08/15/18 17:00 Temperature 98.2 F Pulse Rate 65 68 68 Respiratory Rate 16 Blood Pressure 137/70 Pulse Oximetry 99 08/15/18 18:00 08/15/18 20:00 08/15/18 20:30 Temperature 97.5 F L Pulse Rate 74 73 Respiratory Rate 17 18 Blood Pressure 163/85 H Pulse Oximetry 99 08/15/18 23:41 08/16/18 00:00 08/16/18 04:00 Temperature 97.4 F L 98.2 F Pulse Rate 66 76 Respiratory Rate 18 16 Blood Pressure 140/71 157/81 H Pulse Oximetry 98 98 95 08/16/18 08:00 Temperature 98.7 F Pulse Rate 83 Respiratory Rate 19 Blood Pressure 159/77 H Pulse Oximetry 97 Intake & Output 08/15/18 08/16/18 08/16/18 18:59 06:59 18:59 Intake Total 480 / 480 0 / 0 Output Total 175 / 175 100 / 100 1999 Balance 305 / 305 -100 / -100 -1999 Weight 77.3 kg Intake: Oral 480 / 480 0 / 0 Output: Urine 175 / 175 100 / 100 Hemodialysis Amount 1999 Other: Date of Last Bowel Movement 08/14/18 08/14/18 # Bowel Movements 0 Weight On Admission 76.9 kg - Constitutional no acute distress - Routine HEENT Exam Head: Present: normocephalic - Routine Neck Exam Present: supple - Routine Respiratory Exam Present: CTA bilaterally - Routine Cardiovascular Exam Present: S1, S2 - Routine Abdominal Exam Present: soft - Routine Extremities Exam Comments: no pablo Results 08/16/18 06:57 08/16/18 06:57 Cardiac Enzymes 08/15/18 08/16/18 Range/Units 05:23 06:57 AST 20 60 H (15-37) U/L Lipids 08/15/18 Range/Units 05:23 Triglycerides 120 (42-150) mg/dL Cholesterol 119 L (120-200) mg/dL HDL Cholesterol 40.9 (40.0-60.0) mg/dL Cholesterol/HDL Ratio 2.90 Ratio CBC 08/15/18 08/16/18 Range/Units 05:23 06:57 WBC 10.5 9.5 (4.0-11.0) th/mm3 RBC 3.03 L 3.02 L (4.50-5.90) mil/mm3 Hgb 9.1 L 9.2 L (13.0-17.0) gm/dL Hct 26.8 L 26.9 L (39.0-51.0) % Plt Count 163 150 (150-450) th/mm3 Neut # (Auto) 6.2 6.3 (1.8-7.7) th/mm3 Lymph # (Auto) 3.5 2.4 (1.0-4.8) th/mm3 [place] # (Auto) 0.5 0.6 (0.0-0.9) th/mm3 Eos # (Auto) 0.1 0.1 (0.0-0.4) th/mm3 Baso # (Auto) 0.1 0.0 (0.0-0.2) th/mm3 Comprehensive Metabolic Panel 08/15/18 08/16/18 Range/Units 05:23 06:57 Sodium 138 140 (136-145) meq/L Potassium 3.4 L 3.8 (3.5-5.1) meq/L Chloride 102 105 (98-107) meq/L Carbon Dioxide 28.7 D 25.7 (21.0-32.0) meq/L BUN 17 23 H (7-18) mg/dL Creatinine 3.37 H 4.17 H (0.60-1.30) mg/dL Calcium 7.9 L 7.7 L (8.5-10.1) mg/dL AST 20 60 H (15-37) U/L ALT 8 L 8 L (12-78) U/L Alkaline Phosphatase 985 H 1043 H (45-117) U/L Total Protein 5.3 L D 5.3 L (6.4-8.2) g/dL Albumin 2.2 L 2.2 L (3.4-5.0) g/dL Intake and Output 08/15/18 08/16/18 08/16/18 22:59 06:59 14:59 Intake Total 480 / 480 0 / 0 Output Total 175 / 175 100 / 100 1999 Balance 305 / 305 -100 / -100 -1999 Intake: Oral 480 / 480 0 / 0 Output: Urine 175 / 175 100 / 100 Hemodialysis Amount 1999 Other: Date of Last Bowel Movement 08/14/18 # Bowel Movements 0 Weight 76.9 kg 77.3 kg Weight On Admission 76.9 kg Assessment and Plan - Assessment (1) NSTEMI (non-ST elevated myocardial infarction) Code(s): I21.4 - Non-ST elevation (NSTEMI) myocardial infarction Status: Acute (2) Anemia Code(s): D64.9 - Anemia, unspecified Status: Acute (3) End stage renal disease Code(s): N18.6 - End stage renal disease Status: Acute (4) Acute kidney injury superimposed on chronic kidney disease Code(s): N17.9 - Acute kidney failure, unspecified; N18.9 - Chronic kidney disease, unspecified Status: Acute (5) Fever Code(s): R50.9 - Fever, unspecified Status: Acute - Plan 1.) NSTEMI - assymptomatic s/p transfusion, suspect elevated troponin secondary to severe anemia and posibbly underlying cad, and nonspecificaly elevated due to esrd, continue aspirin, statin held due to ldl=54 and elevated lfts (2) Anemia Qualifiers: Anemia type: due to chronic kidney disease Chronic kidney disease stage: on chronic dialysis Qualified Code(s): N18.6 - End stage renal disease; D63.1 - Anemia in chronic kidney disease; Z99.2 - Dependence on renal dialysis (5) Fever Qualifiers: Fever type: unspecified Qualified Code(s): R50.9 - Fever, unspecified
--- NOTE | 2018-08-16 15:14 | P.DS ---
Date of admission: 08/13/18 18:51 Primary care physician: No Primary Care Physician Attending physician on discharge: Mason Alfonso Anticipated date of discharge: 08/16/18 Brief History from admission: Mr. Ross is a 63-year-old male with a past medical history of end-stage renal disease on hemodialysis Tuesday and Fridays, anemia, hypertension, prostate cancer, and resistant C. difficile who presented to the emergency room and [place] complaining of shortness of breath with a slight cough. He was found to have a troponin of 2.31, hemoglobin of 6.8, stool with faintly positive occult blood, severe pitting lower extremity edema and a BNP greater than 5000. The emergency room physician discussed the case with Dr. 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 Chest x-ray showed cardiomegaly with pulmonary vascular congestion, mild airspace disease in the left lower lung zone with associated probable trace pleural effusion. No Lasix was given in [place]. The patient does produce urine. The patient was seen shortly after his arrival in the [facility]U. Oxygen saturation is 99% on 2 L nasal cannula. First unit of blood is transfusing the patient continues to endorse shortness of breath. He reports that shortness of breath started 4 days ago and has been present with exertion since that time. He presented to the emergency room as it persisted and worsened. He states he is feeling better since arrival at the [facility]. He denies any chest pain. He denies any recent fever or chills. He reports recent diagnosis with resistant seed difficile and states he completed 5 days of treatment but was unable to tolerate any further. He denies any diarrhea. He denies any hematemesis, hematuria, or hematochezia. He denies melena. He reports swelling in his lower extremities started about 5 days ago and preceded his symptom of shortness of breath. He complains of poor appetite and nausea. He denies vomiting. Patient update on day of discharge: Patient is doing well. No fever, chills. Had 2 BM today but both were formed. He feels that his appetite is improving too. DS: Medications - Discharge Medications Prescriptions: metronidazole 500 mg PO Q8HR #30 tab DS: Summary Hospital Course: On 08/13/2018, Mr. Ross is a 63-year-old male with a past medical history of end-stage renal disease on hemodialysis Tuesday and Fridays, anemia, hypertension, prostate cancer, and resistant C. difficile who presented to the emergency room and [place] complaining of shortness of breath with a slight cough. He was found to have pulmonary edema. His C. Diff was also positive. Patient was not able to tolerate PO Vancomycin before. Patient was started on PO Flagyl. He remained stable, afebrile. His diarrhea improved. GI was consulted due to anemia which is likely due to NSAIDs including Aspirin use. Patient does not want to undergo any endoscopic studies. His Hgb remained stable around 9.1-9.2. Elevated cardiac enzyme Initially admitted as NSTEMI however elevated cardiac enzymes likely due from ESRD -ACS ruled out per protocol, and elevated troponin I may be due secondary to renal disease. -Cardiology recommended medical management -Continue topical nitro paste Acute Pulmonary Edema Acute on chronic diastolic CHF exacerbation -Improved with dialysis. Patient is currently on room air. Acute on chronic anemia with concern for GI bleed -Status post 2 unit packed red blood cells transfused -Appreciate input from gastroenterology -H&H stable at around 9.2. End-stage renal disease on hemodialysis Tuesday, Tuesday, & Fridays -Hemodialysis per nephrology. Has outpatient dialysis set up. Malnutrition -consult meat and seafood manager for supplemental recommendations History of resistant C. difficile -C. difficile PCR positive -Patient was started back on vancomycin p.o. August 14, 2018, however stated it made him sick to his stomach and requested a different treatment. Continue Flagyl 500 mg p.o. every 8 hour for 10 days. History of prostate cancer -Continue bicalutamide and tamsulosin DVT prophylaxis -chemoprophylaxis contraindicated due to anemia -SCDs contraindicated due to severe pitting edema in bilateral lower extremities Patient will be discharged home today. He is advised to slowly advance his diet. Avoid all NSAIDs. Acetaminophen would be okay to take upto 2-3g per day. - Time Spent with Patient Total time spent providing and/or coordinating discharge services: Less than 30 minutes - Quality: VTE Deep Vein Thrombosis/Pulmonary Embolism Present on Admission: No Exam Vital signs: Vital Signs 08/15/18 16:00 08/15/18 17:00 08/15/18 18:00 Temperature 98.2 F Pulse Rate 68 68 74 Respiratory Rate 16 Blood Pressure 137/70 Pulse Oximetry 99 08/15/18 20:00 08/15/18 20:30 08/15/18 23:41 Temperature 97.5 F L Pulse Rate 73 Respiratory Rate 17 18 Blood Pressure 163/85 H Pulse Oximetry 99 98 08/16/18 00:00 08/16/18 04:00 08/16/18 08:00 Temperature 97.4 F L 98.2 F 98.7 F Pulse Rate 66 76 83 Respiratory Rate 18 16 19 Blood Pressure 140/71 157/81 H 159/77 H Pulse Oximetry 98 95 97 08/16/18 12:00 Temperature 99.6 F Pulse Rate 78 Respiratory Rate 19 Blood Pressure 155/72 H Pulse Oximetry 96 Intake & Output 08/15/18 08/16/18 08/16/18 18:59 06:59 18:59 Intake Total 480 / 480 0 / 0 Output Total 175 / 175 100 / 100 1999 Balance 305 / 305 -100 / -100 -1999 Weight 77.3 kg Intake: Oral 480 / 480 0 / 0 Output: Urine 175 / 175 100 / 100 Hemodialysis Amount 1999 Other: Date of Last Bowel Movement 08/14/18 08/14/18 # Bowel Movements 0 Weight On Admission 76.9 kg Narrative: GENERAL: Alert, NAD. SKIN: Warm and dry. HEAD: Normocephalic. EYES: No scleral icterus. No injection or drainage. NECK: Supple, trachea midline. No JVD or lymphadenopathy. CARDIOVASCULAR: Regular rate and rhythm without murmurs, gallops, or rubs. RESPIRATORY: Breath sounds equal bilaterally. No accessory muscle use. GASTROINTESTINAL: Abdomen soft, non-tender, nondistended. MUSCULOSKELETAL: No cyanosis, or edema. BACK: Nontender without obvious deformity. No CVA tenderness. Results Procedures completed during hospitalization: none Labs on day of discharge: Labs from last 24 hours 08/16/18 08/16/18 06:57 06:57 WBC 9.5 RBC 3.02 L Hgb 9.2 L Hct 26.9 L MCV 89.0 MCH 30.4 MCHC 34.2 RDW 18.3 H Plt Count 150 MPV 7.3 Neut % (Auto) 66.9 Lymph % (Auto) 25.6 [place] % (Auto) 6.3 Eos % (Auto) 0.8 Baso % (Auto) 0.4 Neut # (Auto) 6.3 Lymph # (Auto) 2.4 [place] # (Auto) 0.6 Eos # (Auto) 0.1 Baso # (Auto) 0.0 WBC Differential . Differential Comment Auto diff final Sodium 140 Potassium 3.8 Chloride 105 Carbon Dioxide 25.7 Anion Gap 9 BUN 23 H Creatinine 4.17 H Estimated GFR 14 L Random Glucose 111 H Calcium 7.7 L Total Bilirubin 0.3 AST 60 H ALT 8 L Alkaline Phosphatase 1043 H Total Protein 5.3 L Albumin 2.2 L - Impressions ITS Impressions Chest X-Ray 08/13/18 16:19 CONCLUSION: 1. Cardiomegaly with pulmonary vascular congestion. 2. Mild airspace disease in the left lower lung zone with associated probable trace pleural effusion. Discharge Plan - Discharge Disposition Patient Disposition: W/Home Health Service - Discharge Condition Condition: Good - Discharge Order Discharge Orders: Discharge Order (Routine); Ordered 08/16/18 Ordered By: Mason Alfonso - Discharge Details Anticipated Discharge Date: 08/16/18 Discharge Comment: Avoid NSAIDS (Ibuprofen, Naproxen etc), Aspirin. Acetaminophen (Tylenol) is okay. - Physicians Team Primary Care Provider: Primary Care Physici,No Attending Provider: Mason Alfonso Other Providers: Curt Alaniz MD ; Karena Duval MD ; Wayne Naidu MD
== END 2018-08-16 15:49 | disposition home or self-care (01) ==
LOC: PHED 15:28 → PHEDA 18:51 → HCIS 21:55 → N04 08-15 20:00
PROVIDERS: ADMIT Hospitalist; ATTEND Hospitalist

== ENCOUNTER 2018-09-03 11:56 | Inpatient (IN) ==
--- NOTE | 2018-09-03 12:32 | ED ---
HPI General Chief complaint: Respiratory Symptoms Stated complaint: SHORTNESS OF BREATH Time Seen by Provider: 09/03/18 12:04 Source: patient Mode of arrival: EMS Limitations: no limitations History of Present Illness HPI narrative: Patient is a 63-year-old male with history of end-stage renal disease on hemodialysis every Mondays, Wednesdays and Fridays, history of prostate cancer with metastatic disease, history of C. difficile, history of anemia as well as history of hypertension, presents the emergency room with complaints of shortness of breath. Patient reports that for the past 3 days, he has been having dyspnea on exertion as well as chest pain. Patient describes his chest pain as a chest tightness only when he cough. Patient reports that symptoms have not gotten any better, reports that in fact they have gotten worse. Patient reports that he was unable to breathe today so he called EMS for help. Related Data Home Medications Medication Instructions Recorded Confirmed bicalutamide 50 mg PO HS 07/09/18 09/03/18 tamsulosin [Flomax] 0.4 mg PO DAILY 07/09/18 09/03/18 Previous Rx's Medication Instructions Recorded metronidazole 500 mg PO Q8HR #30 tab 08/16/18 oxycodone-acetaminophen [Endocet] 1 tab PO Q6H #120 tab 09/01/18 Allergies Allergy/AdvReac Type Severity Reaction Status Date / Time Tetanus Vaccines and Toxoid Allergy Severe Fever Verified 08/13/18 15:46 amoxicillin AdvReac Mild Nausea/Vomi Verified 08/13/18 15:46 ting Review of Systems ROS: all other systems reviewed are negative PMFSH History History Provided By: Patient Medical History Medical History Acute renal failure (Acute) Acute renal failure on dialysis (Acute) Anemia (Acute) Dyspnea (Acute) Fistula (Acute) Hypertension (Acute) Kidney stone (Acute) MDRO (multiple drug resistant organisms) resistance (Acute ~07/19/18) Prostate CA (Acute) Sepsis (Acute) Vascular dialysis catheter in place (Acute) Surgical History Surgical History AV fistula (Acute) H/O major orthopedic surgery (Acute) Family History Family History Mother Pneumonia Father CVA (cerebral vascular accident) Grandparent Prostate cancer Social History Social History Substance History: No History of Abuse Second Hand Smoke Exposure: Yes Smoking Status: Current every day smoker Tobacco Type: Cigarettes How Often Do You Have a Drink Containing Alcohol: 2 to 3 times a week Recent Out of Country Travel within the Last 8 Weeks: No Exam Narrative Exam Narrative: GENERAL: Mild distress SKIN: Focused skin assessment warm/dry. HEAD: Atraumatic. Normocephalic. EYES: Pupils equal and round. No scleral icterus. No injection or drainage. ENT: No nasal bleeding or discharge. Mucous membranes pink and moist. NECK: Trachea midline. No JVD. CARDIOVASCULAR: Regular rate and rhythm. No murmur appreciated. Permacath in place RESPIRATORY: No accessory muscle use. Clear to auscultation. Breath sounds equal bilaterally. GASTROINTESTINAL: Abdomen soft, non-tender, nondistended. Hepatic and splenic margins not palpable. Lightly HEME POSITIVE MUSCULOSKELETAL: No obvious deformities. No clubbing. No cyanosis. +4Pitting edema b/l NEUROLOGICAL: Awake and alert. No obvious cranial nerve deficits. Motor grossly within normal limits. Normal speech. PSYCHIATRIC: Appropriate mood and affect; insight and judgment normal. Course Initial Documented Vital Signs Temperature 98.8 F 09/03/18 12:07 Pulse Rate 94 H 09/03/18 12:07 Respiratory Rate 22 09/03/18 12:07 Blood Pressure 106/63 09/03/18 12:07 Pulse Oximetry 98 09/03/18 12:07 Last Documented Vital Signs Temperature 98.0 F 09/07/18 11:22 Pulse Rate 70 09/07/18 12:00 Respiratory Rate 16 09/07/18 11:45 Blood Pressure 104/59 L 09/07/18 11:45 Pulse Oximetry 98 09/07/18 11:45 Critical Care Time Critical Care Time: Yes Total Critical Care Time: 60 Attestation: Aggregate critical care time was 60 minutes. Time to perform other separately billable procedures was not included in the critical care time. My time did not include minutes spent treating any other patients simultaneously or on activities that did not directly contribute to the patient's treatment. The services I provided to this patient were to treat and/or prevent clinically significant deterioration that could result in: , decompensation, deterioration I provided critical care services requiring my management, as noted below: Chart data review, documentation time, medication orders and management, vital sign assessments/reviewing monitor data, ordering and reviewing lab tests, ordering and interpreting/reviewing x-rays and diagnostic studies, care of the patient and discussion of the patient with the admitting physicians. Medical Decision Making MDM Narrative Medical decision making narrative: During the course of the patients emergency department visit, the patients history, examination, and differential diagnosis were reviewed with the patient. The patient was placed on a monitoring engineer with oximetry and frequent blood pressure monitoring. The patient had an IV access obtained and blood work sent for analysis. The patient was initially provided aspirin Previous records reviewed, patient was seen with similar complaints on August 14, 2018. At that time, patient had positive troponins, he was sent to [facility] for further workup. Patient was seen by Dr. Alaniz, because patient has metastatic prostate cancer with severe anemia (hgb 6.8) requiring blood transfusion, he recommended medical management at this time. Dr. Alaniz recommended continuation of aspirin Given his leg edema and his dyspnea on exertion and given the fact that he has metastatic prostate cancer, I did order ultrasound of his lower extremities as well as VQ scan to rule out PE as well as DVT. The patients laboratory studies were reviewed and remarkable for a hgb 6.2 - type and screen was ordered as well as 2 units of blood - during his last admission to the hospital in July 2018, he was seen by GI for GI bleed as he did have a positive occult blood. Patient refused a colonoscopy as well as EGD. Patient's hemoglobin is 6.2, patient continues to refuse having a colonoscopy as well as an EGD. Patient is agreeable to receiving 2 units of packed red blood cells. Patient follows with Dr. Duval who is his manager workers compensation, Dr. Fine is his urologist. Patient reports that he did well on Lupron therapy for his prostate cancer, reports that he took another medication in May which "messed him up." Reports that he has not taken any other chemotherapy agents since then. Patient's lactic acid is 6.0, he has been pancultured, he was given dose of Zosyn as well as vancomycin. X-ray of the chest shows findings compatible with volume overload as well as pleural effusions. Doppler ultrasounds of the lower extremity showed no evidence of DVT. VQ scan is pending Patient's troponin is 11.7, patient is currently chest pain-free at this time. His chest pain is only with coughing. I did discuss case with Dr. Love who requests that patient be transferred to [facility] as he may require further intervention. Patient at this time is willing to have a workup for his GI bleeding. Reports that now he is willing to have a colonoscopy as well as an EGD. Patient's lactic acid is 6.0, most likely from his cardiac event -in addition to the volume overload and pleural effusion seen on the x-ray, there is some bilateral hazy airspace opacities and obscuration of the bilateral hemidiaphragms -I did order a CT of the chest without contrast to evaluate for possible infiltrates. Case reviewed with Dr. Cordova who requests that patient be transferred STAT to [facility] case was reviewed with senior fire protection engineer as well as cartography/mapping technician Medical Screen Exam Complete: Yes Emergency Medical Condition: Yes Differential Diagnosis Differential Diagnosis: CAD, ACS, Arrythmia, DVT, PE Medical Records Medical records reviewed: Yes I reviewed the patient's medical records. Lab Data Lab results reviewed: Yes I reviewed the patient's lab results. Result diagrams: 09/07/18 05:20 09/07/18 05:20 Lab Results 09/03/18 09/03/18 09/03/18 Range/Units 12:30 12:30 12:30 CBC w Diff Slide review pending WBC 8.9 (4.0-11.0) th/mm3 RBC 2.20 L (4.50-5.90) mil/mm3 Hgb 6.2 L* (13.0-17.0) gm/dL Hct 19.8 L* (39.0-51.0) % MCV 89.8 (80.0-100.0) fL MCH 28.4 (27.0-34.0) pg MCHC 31.6 L (32.0-36.0) % RDW 18.3 H (11.6-17.2) % Plt Count 159 (150-450) th/mm3 MPV 7.8 (7.0-11.0) fL Prelim Diff (Auto) Neut % (Auto) 75.6 H (16.0-70.0) % Lymph % (Auto) 17.8 (9.0-44.0) % Reynolds % (Auto) 3.7 (0.0-8.0) % Eos % (Auto) 0.1 (0.0-4.0) % Baso % (Auto) 2.8 H (0.0-2.0) % Neut # (Auto) 6.8 (1.8-7.7) th/mm3 Lymph # (Auto) 1.6 (1.0-4.8) th/mm3 Reynolds # (Auto) 0.3 (0.0-0.9) th/mm3 Eos # (Auto) 0.0 (0.0-0.4) th/mm3 Baso # (Auto) 0.2 (0.0-0.2) th/mm3 WBC Differential . Diff Scan Auto diff confirmed Seg Neuts % (Manual) (16-70) % Band Neuts % (Manual) (0-6) % Lymphocytes % (Manual) (9-44) % Monocytes % (Manual) (0-8) % Metamyelocytes % (Man) (0-1) % Myelocytes % (Man) (0-0) % Abs Neuts (Manual) (1.8-7.7) th/mm3 Nucleated RBCs/100 WBC (0-0) /100 WBC Differential Comment . Platelet Estimate (Normal) Platelet Morphology (Normal) PT 21.5 H (9.8-11.6) sec INR 2.1 Ratio APTT 34.5 H (23.4-31.7) sec Fibrinogen (227-377) mg/dL Puncture Site Patient Temperature O2 Saturation (90-100) % ABG pH (7.380-7.420) ABG pCO2 (38-42) mmHg ABG pO2 (61-120) mmHg ABG HCO3 (22-26) mmol/L ABG O2 Content (12.0-20.0) Vol % ABG Base Excess (-2-2) mmol/L ABG Methemoglobin (0-2) % Brent Test Hemoglobin (12.0-16.0) G/DL Carboxyhemoglobin (0-4) % O2 Delivery Device Inspired O2 % Critical Value Sodium (136-145) meq/L Potassium (3.5-5.1) meq/L Chloride (98-107) meq/L Carbon Dioxide (21.0-32.0) meq/L Anion Gap (5-15) meq/L BUN (7-18) mg/dL Creatinine (0.60-1.30) mg/dL Estimated GFR (>89) mL/min POC Glucose (68-110) mg/dl Random Glucose (74-106) mg/dL Lactic Acid (0.4-2.0) mmol/L Calcium (8.5-10.1) mg/dL Calcium Adj for Albumin (8.5-10.1) mg/dL Phosphorus (2.5-4.9) mg/dL Magnesium (1.5-2.5) mg/dL Total Bilirubin (0.2-1.0) mg/dL AST (15-37) U/L ALT (12-78) U/L Alkaline Phosphatase (45-117) U/L Total Creatine Kinase 328 H (39-308) U/L CK-MB (CK-2) 11.7 H (0.5-3.6) ng/mL CK-MB (CK-2) % 3.6 (0.0-4.0) % Troponin I 11.70 H* (0.02-0.05) ng/mL Total Protein (6.4-8.2) g/dL Albumin (3.4-5.0) g/dL Triglycerides (42-150) mg/dL Cholesterol (120-200) mg/dL LDL Cholesterol, Calc (0-99) mg/dL HDL Cholesterol (40.0-60.0) mg/dL Cholesterol/HDL Ratio Ratio Free PSA ng/mL Total PSA (<=4.5) ng/mL PSA Free/Total Ratio ratio Nasal Screen MRSA (PCR) (Negative) Blood Type Blood Type Recheck Antibody Screen MTS Gel Crossmatch 09/03/18 09/03/18 09/03/18 Range/Units 12:30 12:30 12:30 CBC w Diff WBC (4.0-11.0) th/mm3 RBC (4.50-5.90) mil/mm3 Hgb (13.0-17.0) gm/dL Hct (39.0-51.0) % MCV (80.0-100.0) fL MCH (27.0-34.0) pg MCHC (32.0-36.0) % RDW (11.6-17.2) % Plt Count (150-450) th/mm3 MPV (7.0-11.0) fL Prelim Diff (Auto) Neut % (Auto) (16.0-70.0) % Lymph % (Auto) (9.0-44.0) % Reynolds % (Auto) (0.0-8.0) % Eos % (Auto) (0.0-4.0) % Baso % (Auto) (0.0-2.0) % Neut # (Auto) (1.8-7.7) th/mm3 Lymph # (Auto) (1.0-4.8) th/mm3 Reynolds # (Auto) (0.0-0.9) th/mm3 Eos # (Auto) (0.0-0.4) th/mm3 Baso # (Auto) (0.0-0.2) th/mm3 WBC Differential Diff Scan Seg Neuts % (Manual) (16-70) % Band Neuts % (Manual) (0-6) % Lymphocytes % (Manual) (9-44) % Monocytes % (Manual) (0-8) % Metamyelocytes % (Man) (0-1) % Myelocytes % (Man) (0-0) % Abs Neuts (Manual) (1.8-7.7) th/mm3 Nucleated RBCs/100 WBC (0-0) /100 WBC Differential Comment Platelet Estimate (Normal) Platelet Morphology (Normal) PT (9.8-11.6) sec INR Ratio APTT (23.4-31.7) sec Fibrinogen (227-377) mg/dL Puncture Site Patient Temperature O2 Saturation (90-100) % ABG pH (7.380-7.420) ABG pCO2 (38-42) mmHg ABG pO2 (61-120) mmHg ABG HCO3 (22-26) mmol/L ABG O2 Content (12.0-20.0) Vol % ABG Base Excess (-2-2) mmol/L ABG Methemoglobin (0-2) % Brent Test Hemoglobin (12.0-16.0) G/DL Carboxyhemoglobin (0-4) % O2 Delivery Device Inspired O2 % Critical Value Sodium 138 (136-145) meq/L Potassium 5.6 H (3.5-5.1) meq/L Chloride 106 (98-107) meq/L Carbon Dioxide 16.5 L (21.0-32.0) meq/L Anion Gap 16 H (5-15) meq/L BUN 27 H (7-18) mg/dL Creatinine 4.40 H (0.60-1.30) mg/dL Estimated GFR 14 L (>89) mL/min POC Glucose (68-110) mg/dl Random Glucose 154 H (74-106) mg/dL Lactic Acid 6.0 H* (0.4-2.0) mmol/L Calcium 8.0 L (8.5-10.1) mg/dL Calcium Adj for Albumin (8.5-10.1) mg/dL Phosphorus (2.5-4.9) mg/dL Magnesium 1.9 (1.5-2.5) mg/dL Total Bilirubin 0.3 (0.2-1.0) mg/dL AST 131 H (15-37) U/L ALT 13 (12-78) U/L Alkaline Phosphatase 1529 H (45-117) U/L Total Creatine Kinase (39-308) U/L CK-MB (CK-2) (0.5-3.6) ng/mL CK-MB (CK-2) % (0.0-4.0) % Troponin I (0.02-0.05) ng/mL Total Protein 5.9 L (6.4-8.2) g/dL Albumin 2.6 L (3.4-5.0) g/dL Triglycerides (42-150) mg/dL Cholesterol (120-200) mg/dL LDL Cholesterol, Calc (0-99) mg/dL HDL Cholesterol (40.0-60.0) mg/dL Cholesterol/HDL Ratio Ratio Free PSA ng/mL Total PSA (<=4.5) ng/mL PSA Free/Total Ratio ratio Nasal Screen MRSA (PCR) (Negative) Blood Type O Negative Blood Type Recheck Not needed Antibody Screen Negative MTS Gel Crossmatch 09/03/18 09/03/18 09/03/18 Range/Units 12:30 16:17 16:25 CBC w Diff WBC (4.0-11.0) th/mm3 RBC (4.50-5.90) mil/mm3 Hgb (13.0-17.0) gm/dL Hct (39.0-51.0) % MCV (80.0-100.0) fL MCH (27.0-34.0) pg MCHC (32.0-36.0) % RDW (11.6-17.2) % Plt Count (150-450) th/mm3 MPV (7.0-11.0) fL Prelim Diff (Auto) Neut % (Auto) (16.0-70.0) % Lymph % (Auto) (9.0-44.0) % Reynolds % (Auto) (0.0-8.0) % Eos % (Auto) (0.0-4.0) % Baso % (Auto) (0.0-2.0) % Neut # (Auto) (1.8-7.7) th/mm3 Lymph # (Auto) (1.0-4.8) th/mm3 Reynolds # (Auto) (0.0-0.9) th/mm3 Eos # (Auto) (0.0-0.4) th/mm3 Baso # (Auto) (0.0-0.2) th/mm3 WBC Differential Diff Scan Seg Neuts % (Manual) (16-70) % Band Neuts % (Manual) (0-6) % Lymphocytes % (Manual) (9-44) % Monocytes % (Manual) (0-8) % Metamyelocytes % (Man) (0-1) % Myelocytes % (Man) (0-0) % Abs Neuts (Manual) (1.8-7.7) th/mm3 Nucleated RBCs/100 WBC (0-0) /100 WBC Differential Comment Platelet Estimate (Normal) Platelet Morphology (Normal) PT (9.8-11.6) sec INR Ratio APTT (23.4-31.7) sec Fibrinogen (227-377) mg/dL Puncture Site Right radial Patient Temperature 98.6 O2 Saturation 96 (90-100) % ABG pH 7.47 H (7.380-7.420) ABG pCO2 23 L* (38-42) mmHg ABG pO2 98 (61-120) mmHg ABG HCO3 16 L* (22-26) mmol/L ABG O2 Content 8.5 L (12.0-20.0) Vol % ABG Base Excess -6.7 L (-2-2) mmol/L ABG Methemoglobin 1.3 (0-2) % Brent Test Present Hemoglobin 6.2 L* (12.0-16.0) G/DL Carboxyhemoglobin 1.7 (0-4) % O2 Delivery Device None Inspired O2 21 % Critical Value Yes Sodium (136-145) meq/L Potassium (3.5-5.1) meq/L Chloride (98-107) meq/L Carbon Dioxide (21.0-32.0) meq/L Anion Gap (5-15) meq/L BUN (7-18) mg/dL Creatinine (0.60-1.30) mg/dL Estimated GFR (>89) mL/min POC Glucose (68-110) mg/dl Random Glucose (74-106) mg/dL Lactic Acid (0.4-2.0) mmol/L Calcium (8.5-10.1) mg/dL Calcium Adj for Albumin (8.5-10.1) mg/dL Phosphorus (2.5-4.9) mg/dL Magnesium (1.5-2.5) mg/dL Total Bilirubin (0.2-1.0) mg/dL AST (15-37) U/L ALT (12-78) U/L Alkaline Phosphatase (45-117) U/L Total Creatine Kinase (39-308) U/L CK-MB (CK-2) (0.5-3.6) ng/mL CK-MB (CK-2) % (0.0-4.0) % Troponin I 13.30 H* (0.02-0.05) ng/mL Total Protein (6.4-8.2) g/dL Albumin (3.4-5.0) g/dL Triglycerides (42-150) mg/dL Cholesterol (120-200) mg/dL LDL Cholesterol, Calc (0-99) mg/dL HDL Cholesterol (40.0-60.0) mg/dL Cholesterol/HDL Ratio Ratio Free PSA ng/mL Total PSA (<=4.5) ng/mL PSA Free/Total Ratio ratio Nasal Screen MRSA (PCR) (Negative) Blood Type Blood Type Recheck Antibody Screen MTS Gel Crossmatch See Detail 09/03/18 09/03/18 09/04/18 Range/Units 16:25 18:20 06:16 CBC w Diff WBC (4.0-11.0) th/mm3 RBC (4.50-5.90) mil/mm3 Hgb (13.0-17.0) gm/dL Hct (39.0-51.0) % MCV (80.0-100.0) fL MCH (27.0-34.0) pg MCHC (32.0-36.0) % RDW (11.6-17.2) % Plt Count (150-450) th/mm3 MPV (7.0-11.0) fL Prelim Diff (Auto) Neut % (Auto) (16.0-70.0) % Lymph % (Auto) (9.0-44.0) % Reynolds % (Auto) (0.0-8.0) % Eos % (Auto) (0.0-4.0) % Baso % (Auto) (0.0-2.0) % Neut # (Auto) (1.8-7.7) th/mm3 Lymph # (Auto) (1.0-4.8) th/mm3 Reynolds # (Auto) (0.0-0.9) th/mm3 Eos # (Auto) (0.0-0.4) th/mm3 Baso # (Auto) (0.0-0.2) th/mm3 WBC Differential Diff Scan Seg Neuts % (Manual) (16-70) % Band Neuts % (Manual) (0-6) % Lymphocytes % (Manual) (9-44) % Monocytes % (Manual) (0-8) % Metamyelocytes % (Man) (0-1) % Myelocytes % (Man) (0-0) % Abs Neuts (Manual) (1.8-7.7) th/mm3 Nucleated RBCs/100 WBC (0-0) /100 WBC Differential Comment Platelet Estimate (Normal) Platelet Morphology (Normal) PT (9.8-11.6) sec INR Ratio APTT (23.4-31.7) sec Fibrinogen (227-377) mg/dL Puncture Site Patient Temperature O2 Saturation (90-100) % ABG pH (7.380-7.420) ABG pCO2 (38-42) mmHg ABG pO2 (61-120) mmHg ABG HCO3 (22-26) mmol/L ABG O2 Content (12.0-20.0) Vol % ABG Base Excess (-2-2) mmol/L ABG Methemoglobin (0-2) % Brent Test Hemoglobin (12.0-16.0) G/DL Carboxyhemoglobin (0-4) % O2 Delivery Device Inspired O2 % Critical Value Sodium (136-145) meq/L Potassium (3.5-5.1) meq/L Chloride (98-107) meq/L Carbon Dioxide (21.0-32.0) meq/L Anion Gap (5-15) meq/L BUN (7-18) mg/dL Creatinine (0.60-1.30) mg/dL Estimated GFR (>89) mL/min POC Glucose (68-110) mg/dl Random Glucose (74-106) mg/dL Lactic Acid 5.0 H* 1.9 (0.4-2.0) mmol/L Calcium (8.5-10.1) mg/dL Calcium Adj for Albumin (8.5-10.1) mg/dL Phosphorus (2.5-4.9) mg/dL Magnesium (1.5-2.5) mg/dL Total Bilirubin (0.2-1.0) mg/dL AST (15-37) U/L ALT (12-78) U/L Alkaline Phosphatase (45-117) U/L Total Creatine Kinase (39-308) U/L CK-MB (CK-2) (0.5-3.6) ng/mL CK-MB (CK-2) % (0.0-4.0) % Troponin I (0.02-0.05) ng/mL Total Protein (6.4-8.2) g/dL Albumin (3.4-5.0) g/dL Triglycerides (42-150) mg/dL Cholesterol (120-200) mg/dL LDL Cholesterol, Calc (0-99) mg/dL HDL Cholesterol (40.0-60.0) mg/dL Cholesterol/HDL Ratio Ratio Free PSA ng/mL Total PSA (<=4.5) ng/mL PSA Free/Total Ratio ratio Nasal Screen MRSA (PCR) Not detected (Negative) Blood Type Blood Type Recheck Antibody Screen MTS Gel Crossmatch 09/04/18 09/04/18 09/04/18 Range/Units 06:16 06:16 06:16 CBC w Diff WBC 8.6 (4.0-11.0) th/mm3 RBC 3.14 L (4.50-5.90) mil/mm3 Hgb 9.6 L D (13.0-17.0) gm/dL Hct 28.1 L (39.0-51.0) % MCV 89.4 (80.0-100.0) fL MCH 30.7 (27.0-34.0) pg MCHC 34.3 (32.0-36.0) % RDW 19.1 H (11.6-17.2) % Plt Count 145 L (150-450) th/mm3 MPV 7.7 (7.0-11.0) fL Prelim Diff (Auto) Slide review pending Neut % (Auto) 65.1 (16.0-70.0) % Lymph % (Auto) 30.7 (9.0-44.0) % Reynolds % (Auto) 3.8 (0.0-8.0) % Eos % (Auto) 0.2 (0.0-4.0) % Baso % (Auto) 0.2 (0.0-2.0) % Neut # (Auto) 5.6 (1.8-7.7) th/mm3 Lymph # (Auto) 2.6 (1.0-4.8) th/mm3 Reynolds # (Auto) 0.3 (0.0-0.9) th/mm3 Eos # (Auto) 0.0 (0.0-0.4) th/mm3 Baso # (Auto) 0.0 (0.0-0.2) th/mm3 WBC Differential Manual diff final Diff Scan Seg Neuts % (Manual) 71 H (16-70) % Band Neuts % (Manual) 12 H (0-6) % Lymphocytes % (Manual) 11 (9-44) % Monocytes % (Manual) 4 (0-8) % Metamyelocytes % (Man) 1 (0-1) % Myelocytes % (Man) 1 H (0-0) % Abs Neuts (Manual) 7.3 (1.8-7.7) th/mm3 Nucleated RBCs/100 WBC 1 H (0-0) /100 WBC Differential Comment . Platelet Estimate Normal (Normal) Platelet Morphology Normal (Normal) PT (9.8-11.6) sec INR Ratio APTT (23.4-31.7) sec Fibrinogen (227-377) mg/dL Puncture Site Patient Temperature O2 Saturation (90-100) % ABG pH (7.380-7.420) ABG pCO2 (38-42) mmHg ABG pO2 (61-120) mmHg ABG HCO3 (22-26) mmol/L ABG O2 Content (12.0-20.0) Vol % ABG Base Excess (-2-2) mmol/L ABG Methemoglobin (0-2) % Brent Test Hemoglobin (12.0-16.0) G/DL Carboxyhemoglobin (0-4) % O2 Delivery Device Inspired O2 % Critical Value Sodium 139 (136-145) meq/L Potassium 5.1 (3.5-5.1) meq/L Chloride 107 (98-107) meq/L Carbon Dioxide 19.9 L (21.0-32.0) meq/L Anion Gap 12 (5-15) meq/L BUN 38 H (7-18) mg/dL Creatinine 4.72 H (0.60-1.30) mg/dL Estimated GFR 13 L (>89) mL/min POC Glucose (68-110) mg/dl Random Glucose 111 H (74-106) mg/dL Lactic Acid (0.4-2.0) mmol/L Calcium 7.7 L (8.5-10.1) mg/dL Calcium Adj for Albumin (8.5-10.1) mg/dL Phosphorus 3.5 (2.5-4.9) mg/dL Magnesium 1.9 (1.5-2.5) mg/dL Total Bilirubin 0.4 (0.2-1.0) mg/dL AST 657 H (15-37) U/L ALT 111 H (12-78) U/L Alkaline Phosphatase 1938 H (45-117) U/L Total Creatine Kinase (39-308) U/L CK-MB (CK-2) (0.5-3.6) ng/mL CK-MB (CK-2) % (0.0-4.0) % Troponin I 36.60 H* (0.02-0.05) ng/mL Total Protein 6.5 D (6.4-8.2) g/dL Albumin 2.8 L (3.4-5.0) g/dL Triglycerides 166 H (42-150) mg/dL Cholesterol 107 L (120-200) mg/dL LDL Cholesterol, Calc 40 (0-99) mg/dL HDL Cholesterol 33.6 L (40.0-60.0) mg/dL Cholesterol/HDL Ratio 3.18 Ratio Free PSA ng/mL Total PSA (<=4.5) ng/mL PSA Free/Total Ratio ratio Nasal Screen MRSA (PCR) (Negative) Blood Type Blood Type Recheck Antibody Screen MTS Gel Crossmatch 09/04/18 09/04/18 09/04/18 Range/Units 09:55 12:44 12:44 CBC w Diff WBC (4.0-11.0) th/mm3 RBC (4.50-5.90) mil/mm3 Hgb 8.4 L (13.0-17.0) gm/dL Hct 24.0 L (39.0-51.0) % MCV (80.0-100.0) fL MCH (27.0-34.0) pg MCHC (32.0-36.0) % RDW (11.6-17.2) % Plt Count (150-450) th/mm3 MPV (7.0-11.0) fL Prelim Diff (Auto) Neut % (Auto) (16.0-70.0) % Lymph % (Auto) (9.0-44.0) % Reynolds % (Auto) (0.0-8.0) % Eos % (Auto) (0.0-4.0) % Baso % (Auto) (0.0-2.0) % Neut # (Auto) (1.8-7.7) th/mm3 Lymph # (Auto) (1.0-4.8) th/mm3 Reynolds # (Auto) (0.0-0.9) th/mm3 Eos # (Auto) (0.0-0.4) th/mm3 Baso # (Auto) (0.0-0.2) th/mm3 WBC Differential Diff Scan Seg Neuts % (Manual) (16-70) % Band Neuts % (Manual) (0-6) % Lymphocytes % (Manual) (9-44) % Monocytes % (Manual) (0-8) % Metamyelocytes % (Man) (0-1) % Myelocytes % (Man) (0-0) % Abs Neuts (Manual) (1.8-7.7) th/mm3 Nucleated RBCs/100 WBC (0-0) /100 WBC Differential Comment Platelet Estimate (Normal) Platelet Morphology (Normal) PT (9.8-11.6) sec INR Ratio APTT (23.4-31.7) sec Fibrinogen (227-377) mg/dL Puncture Site Patient Temperature O2 Saturation (90-100) % ABG pH (7.380-7.420) ABG pCO2 (38-42) mmHg ABG pO2 (61-120) mmHg ABG HCO3 (22-26) mmol/L ABG O2 Content (12.0-20.0) Vol % ABG Base Excess (-2-2) mmol/L ABG Methemoglobin (0-2) % Brent Test Hemoglobin (12.0-16.0) G/DL Carboxyhemoglobin (0-4) % O2 Delivery Device Inspired O2 % Critical Value Sodium (136-145) meq/L Potassium (3.5-5.1) meq/L Chloride (98-107) meq/L Carbon Dioxide (21.0-32.0) meq/L Anion Gap (5-15) meq/L BUN (7-18) mg/dL Creatinine (0.60-1.30) mg/dL Estimated GFR (>89) mL/min POC Glucose (68-110) mg/dl Random Glucose (74-106) mg/dL Lactic Acid 1.1 (0.4-2.0) mmol/L Calcium (8.5-10.1) mg/dL Calcium Adj for Albumin (8.5-10.1) mg/dL Phosphorus (2.5-4.9) mg/dL Magnesium (1.5-2.5) mg/dL Total Bilirubin (0.2-1.0) mg/dL AST (15-37) U/L ALT (12-78) U/L Alkaline Phosphatase (45-117) U/L Total Creatine Kinase 581 H (39-308) U/L CK-MB (CK-2) 30.9 H (0.5-3.6) ng/mL CK-MB (CK-2) % 5.3 H* (0.0-4.0) % Troponin I Greater than 40.00 H* (0.02-0.05) ng/mL Total Protein (6.4-8.2) g/dL Albumin (3.4-5.0) g/dL Triglycerides (42-150) mg/dL Cholesterol (120-200) mg/dL LDL Cholesterol, Calc (0-99) mg/dL HDL Cholesterol (40.0-60.0) mg/dL Cholesterol/HDL Ratio Ratio Free PSA ng/mL Total PSA (<=4.5) ng/mL PSA Free/Total Ratio ratio Nasal Screen MRSA (PCR) (Negative) Blood Type Blood Type Recheck Antibody Screen MTS Gel Crossmatch 09/04/18 09/05/18 09/05/18 Range/Units 18:04 04:41 04:41 CBC w Diff WBC 8.1 (4.0-11.0) th/mm3 RBC 2.93 L (4.50-5.90) mil/mm3 Hgb 8.2 L 8.9 L (13.0-17.0) gm/dL Hct 24.2 L 25.7 L (39.0-51.0) % MCV 87.8 (80.0-100.0) fL MCH 30.2 (27.0-34.0) pg MCHC 34.4 (32.0-36.0) % RDW 18.7 H (11.6-17.2) % Plt Count 136 L (150-450) th/mm3 MPV 7.4 (7.0-11.0) fL Prelim Diff (Auto) Slide review pending Neut % (Auto) 64.8 (16.0-70.0) % Lymph % (Auto) 28.8 (9.0-44.0) % Reynolds % (Auto) 5.9 (0.0-8.0) % Eos % (Auto) 0.2 (0.0-4.0) % Baso % (Auto) 0.3 (0.0-2.0) % Neut # (Auto) 5.3 (1.8-7.7) th/mm3 Lymph # (Auto) 2.3 (1.0-4.8) th/mm3 Reynolds # (Auto) 0.5 (0.0-0.9) th/mm3 Eos # (Auto) 0.0 (0.0-0.4) th/mm3 Baso # (Auto) 0.0 (0.0-0.2) th/mm3 WBC Differential Manual diff final Diff Scan Seg Neuts % (Manual) 73 H (16-70) % Band Neuts % (Manual) 5 (0-6) % Lymphocytes % (Manual) 17 (9-44) % Monocytes % (Manual) 5 (0-8) % Metamyelocytes % (Man) (0-1) % Myelocytes % (Man) (0-0) % Abs Neuts (Manual) 6.3 (1.8-7.7) th/mm3 Nucleated RBCs/100 WBC 2 H (0-0) /100 WBC Differential Comment . Platelet Estimate Low L (Normal) Platelet Morphology Normal (Normal) PT (9.8-11.6) sec INR Ratio APTT (23.4-31.7) sec Fibrinogen (227-377) mg/dL Puncture Site Patient Temperature O2 Saturation (90-100) % ABG pH (7.380-7.420) ABG pCO2 (38-42) mmHg ABG pO2 (61-120) mmHg ABG HCO3 (22-26) mmol/L ABG O2 Content (12.0-20.0) Vol % ABG Base Excess (-2-2) mmol/L ABG Methemoglobin (0-2) % Brent Test Hemoglobin (12.0-16.0) G/DL Carboxyhemoglobin (0-4) % O2 Delivery Device Inspired O2 % Critical Value Sodium (136-145) meq/L Potassium (3.5-5.1) meq/L Chloride (98-107) meq/L Carbon Dioxide (21.0-32.0) meq/L Anion Gap (5-15) meq/L BUN (7-18) mg/dL Creatinine (0.60-1.30) mg/dL Estimated GFR (>89) mL/min POC Glucose (68-110) mg/dl Random Glucose (74-106) mg/dL Lactic Acid 1.7 (0.4-2.0) mmol/L Calcium (8.5-10.1) mg/dL Calcium Adj for Albumin (8.5-10.1) mg/dL Phosphorus (2.5-4.9) mg/dL Magnesium (1.5-2.5) mg/dL Total Bilirubin (0.2-1.0) mg/dL AST (15-37) U/L ALT (12-78) U/L Alkaline Phosphatase (45-117) U/L Total Creatine Kinase (39-308) U/L CK-MB (CK-2) (0.5-3.6) ng/mL CK-MB (CK-2) % (0.0-4.0) % Troponin I (0.02-0.05) ng/mL Total Protein (6.4-8.2) g/dL Albumin (3.4-5.0) g/dL Triglycerides (42-150) mg/dL Cholesterol (120-200) mg/dL LDL Cholesterol, Calc (0-99) mg/dL HDL Cholesterol (40.0-60.0) mg/dL Cholesterol/HDL Ratio Ratio Free PSA ng/mL Total PSA (<=4.5) ng/mL PSA Free/Total Ratio ratio Nasal Screen MRSA (PCR) (Negative) Blood Type Blood Type Recheck Antibody Screen MTS Gel Crossmatch 09/05/18 09/05/18 09/05/18 Range/Units 04:41 04:41 04:41 CBC w Diff WBC (4.0-11.0) th/mm3 RBC (4.50-5.90) mil/mm3 Hgb (13.0-17.0) gm/dL Hct (39.0-51.0) % MCV (80.0-100.0) fL MCH (27.0-34.0) pg MCHC (32.0-36.0) % RDW (11.6-17.2) % Plt Count (150-450) th/mm3 MPV (7.0-11.0) fL Prelim Diff (Auto) Neut % (Auto) (16.0-70.0) % Lymph % (Auto) (9.0-44.0) % Reynolds % (Auto) (0.0-8.0) % Eos % (Auto) (0.0-4.0) % Baso % (Auto) (0.0-2.0) % Neut # (Auto) (1.8-7.7) th/mm3 Lymph # (Auto) (1.0-4.8) th/mm3 Reynolds # (Auto) (0.0-0.9) th/mm3 Eos # (Auto) (0.0-0.4) th/mm3 Baso # (Auto) (0.0-0.2) th/mm3 WBC Differential Diff Scan Seg Neuts % (Manual) (16-70) % Band Neuts % (Manual) (0-6) % Lymphocytes % (Manual) (9-44) % Monocytes % (Manual) (0-8) % Metamyelocytes % (Man) (0-1) % Myelocytes % (Man) (0-0) % Abs Neuts (Manual) (1.8-7.7) th/mm3 Nucleated RBCs/100 WBC (0-0) /100 WBC Differential Comment Platelet Estimate (Normal) Platelet Morphology (Normal) PT 17.7 H (9.8-11.6) sec INR 1.7 Ratio APTT (23.4-31.7) sec Fibrinogen 449 H (227-377) mg/dL Puncture Site Patient Temperature O2 Saturation (90-100) % ABG pH (7.380-7.420) ABG pCO2 (38-42) mmHg ABG pO2 (61-120) mmHg ABG HCO3 (22-26) mmol/L ABG O2 Content (12.0-20.0) Vol % ABG Base Excess (-2-2) mmol/L ABG Methemoglobin (0-2) % Brent Test Hemoglobin (12.0-16.0) G/DL Carboxyhemoglobin (0-4) % O2 Delivery Device Inspired O2 % Critical Value Sodium 141 (136-145) meq/L Potassium 3.4 L D (3.5-5.1) meq/L Chloride 103 (98-107) meq/L Carbon Dioxide 27.2 (21.0-32.0) meq/L Anion Gap 11 (5-15) meq/L BUN 26 H (7-18) mg/dL Creatinine 3.51 H (0.60-1.30) mg/dL Estimated GFR 18 L (>89) mL/min POC Glucose (68-110) mg/dl Random Glucose 115 H (74-106) mg/dL Lactic Acid (0.4-2.0) mmol/L Calcium 7.6 L (8.5-10.1) mg/dL Calcium Adj for Albumin (8.5-10.1) mg/dL Phosphorus 2.4 L D (2.5-4.9) mg/dL Magnesium 1.9 (1.5-2.5) mg/dL Total Bilirubin 0.5 (0.2-1.0) mg/dL AST 189 H (15-37) U/L ALT 65 (12-78) U/L Alkaline Phosphatase 1610 H (45-117) U/L Total Creatine Kinase 304 (39-308) U/L CK-MB (CK-2) 6.7 H (0.5-3.6) ng/mL CK-MB (CK-2) % (0.0-4.0) % Troponin I (0.02-0.05) ng/mL Total Protein 5.8 L D (6.4-8.2) g/dL Albumin 2.4 L (3.4-5.0) g/dL Triglycerides (42-150) mg/dL Cholesterol (120-200) mg/dL LDL Cholesterol, Calc (0-99) mg/dL HDL Cholesterol (40.0-60.0) mg/dL Cholesterol/HDL Ratio Ratio Free PSA Greater than 18.0 ng/mL Total PSA 420.0 H (<=4.5) ng/mL PSA Free/Total Ratio 0 ratio Nasal Screen MRSA (PCR) (Negative) Blood Type Blood Type Recheck Antibody Screen MTS Gel Crossmatch 09/05/18 09/05/18 09/05/18 Range/Units 04:41 14:27 16:31 CBC w Diff WBC (4.0-11.0) th/mm3 RBC (4.50-5.90) mil/mm3 Hgb (13.0-17.0) gm/dL Hct (39.0-51.0) % MCV (80.0-100.0) fL MCH (27.0-34.0) pg MCHC (32.0-36.0) % RDW (11.6-17.2) % Plt Count (150-450) th/mm3 MPV (7.0-11.0) fL Prelim Diff (Auto) Neut % (Auto) (16.0-70.0) % Lymph % (Auto) (9.0-44.0) % Reynolds % (Auto) (0.0-8.0) % Eos % (Auto) (0.0-4.0) % Baso % (Auto) (0.0-2.0) % Neut # (Auto) (1.8-7.7) th/mm3 Lymph # (Auto) (1.0-4.8) th/mm3 Reynolds # (Auto) (0.0-0.9) th/mm3 Eos # (Auto) (0.0-0.4) th/mm3 Baso # (Auto) (0.0-0.2) th/mm3 WBC Differential Diff Scan Seg Neuts % (Manual) (16-70) % Band Neuts % (Manual) (0-6) % Lymphocytes % (Manual) (9-44) % Monocytes % (Manual) (0-8) % Metamyelocytes % (Man) (0-1) % Myelocytes % (Man) (0-0) % Abs Neuts (Manual) (1.8-7.7) th/mm3 Nucleated RBCs/100 WBC (0-0) /100 WBC Differential Comment Platelet Estimate (Normal) Platelet Morphology (Normal) PT (9.8-11.6) sec INR Ratio APTT (23.4-31.7) sec Fibrinogen (227-377) mg/dL Puncture Site Patient Temperature O2 Saturation (90-100) % ABG pH (7.380-7.420) ABG pCO2 (38-42) mmHg ABG pO2 (61-120) mmHg ABG HCO3 (22-26) mmol/L ABG O2 Content (12.0-20.0) Vol % ABG Base Excess (-2-2) mmol/L ABG Methemoglobin (0-2) % Brent Test Hemoglobin (12.0-16.0) G/DL Carboxyhemoglobin (0-4) % O2 Delivery Device Inspired O2 % Critical Value Sodium (136-145) meq/L Potassium (3.5-5.1) meq/L Chloride (98-107) meq/L Carbon Dioxide (21.0-32.0) meq/L Anion Gap (5-15) meq/L BUN (7-18) mg/dL Creatinine (0.60-1.30) mg/dL Estimated GFR (>89) mL/min POC Glucose 97 (68-110) mg/dl Random Glucose (74-106) mg/dL Lactic Acid (0.4-2.0) mmol/L Calcium (8.5-10.1) mg/dL Calcium Adj for Albumin (8.5-10.1) mg/dL Phosphorus (2.5-4.9) mg/dL Magnesium (1.5-2.5) mg/dL Total Bilirubin (0.2-1.0) mg/dL AST (15-37) U/L ALT (12-78) U/L Alkaline Phosphatase (45-117) U/L Total Creatine Kinase (39-308) U/L CK-MB (CK-2) (0.5-3.6) ng/mL CK-MB (CK-2) % (0.0-4.0) % Troponin I 28.40 H* 18.70 H* (0.02-0.05) ng/mL Total Protein (6.4-8.2) g/dL Albumin (3.4-5.0) g/dL Triglycerides (42-150) mg/dL Cholesterol (120-200) mg/dL LDL Cholesterol, Calc (0-99) mg/dL HDL Cholesterol (40.0-60.0) mg/dL Cholesterol/HDL Ratio Ratio Free PSA ng/mL Total PSA (<=4.5) ng/mL PSA Free/Total Ratio ratio Nasal Screen MRSA (PCR) (Negative) Blood Type Blood Type Recheck Antibody Screen MTS Gel Crossmatch 09/05/18 09/06/18 09/06/18 Range/Units 19:42 03:53 03:53 CBC w Diff WBC 6.9 (4.0-11.0) th/mm3 RBC 2.76 L (4.50-5.90) mil/mm3 Hgb 8.1 L (13.0-17.0) gm/dL Hct 24.8 L (39.0-51.0) % MCV 89.8 (80.0-100.0) fL MCH 29.4 (27.0-34.0) pg MCHC 32.7 (32.0-36.0) % RDW 19.0 H (11.6-17.2) % Plt Count 111 L (150-450) th/mm3 MPV 7.6 (7.0-11.0) fL Prelim Diff (Auto) Neut % (Auto) 58.4 (16.0-70.0) % Lymph % (Auto) 34.1 (9.0-44.0) % Reynolds % (Auto) 6.8 (0.0-8.0) % Eos % (Auto) 0.3 (0.0-4.0) % Baso % (Auto) 0.4 (0.0-2.0) % Neut # (Auto) 4.0 (1.8-7.7) th/mm3 Lymph # (Auto) 2.4 (1.0-4.8) th/mm3 Reynolds # (Auto) 0.5 (0.0-0.9) th/mm3 Eos # (Auto) 0.0 (0.0-0.4) th/mm3 Baso # (Auto) 0.0 (0.0-0.2) th/mm3 WBC Differential . Diff Scan Seg Neuts % (Manual) (16-70) % Band Neuts % (Manual) (0-6) % Lymphocytes % (Manual) (9-44) % Monocytes % (Manual) (0-8) % Metamyelocytes % (Man) (0-1) % Myelocytes % (Man) (0-0) % Abs Neuts (Manual) (1.8-7.7) th/mm3 Nucleated RBCs/100 WBC (0-0) /100 WBC Differential Comment Auto diff final Platelet Estimate (Normal) Platelet Morphology (Normal) PT (9.8-11.6) sec INR Ratio APTT (23.4-31.7) sec Fibrinogen (227-377) mg/dL Puncture Site Patient Temperature O2 Saturation (90-100) % ABG pH (7.380-7.420) ABG pCO2 (38-42) mmHg ABG pO2 (61-120) mmHg ABG HCO3 (22-26) mmol/L ABG O2 Content (12.0-20.0) Vol % ABG Base Excess (-2-2) mmol/L ABG Methemoglobin (0-2) % Brent Test Hemoglobin (12.0-16.0) G/DL Carboxyhemoglobin (0-4) % O2 Delivery Device Inspired O2 % Critical Value Sodium 142 (136-145) meq/L Potassium 3.6 (3.5-5.1) meq/L Chloride 105 (98-107) meq/L Carbon Dioxide 25.1 (21.0-32.0) meq/L Anion Gap 12 (5-15) meq/L BUN 32 H (7-18) mg/dL Creatinine 3.97 H (0.60-1.30) mg/dL Estimated GFR 15 L (>89) mL/min POC Glucose 112 H (68-110) mg/dl Random Glucose 112 H (74-106) mg/dL Lactic Acid (0.4-2.0) mmol/L Calcium 7.3 L* (8.5-10.1) mg/dL Calcium Adj for Albumin 8.9 (8.5-10.1) mg/dL Phosphorus 2.5 (2.5-4.9) mg/dL Magnesium 1.8 (1.5-2.5) mg/dL Total Bilirubin 0.5 (0.2-1.0) mg/dL AST 107 H (15-37) U/L ALT 49 (12-78) U/L Alkaline Phosphatase 1207 H (45-117) U/L Total Creatine Kinase (39-308) U/L CK-MB (CK-2) (0.5-3.6) ng/mL CK-MB (CK-2) % (0.0-4.0) % Troponin I (0.02-0.05) ng/mL Total Protein 5.2 L D (6.4-8.2) g/dL Albumin 2.0 L (3.4-5.0) g/dL Triglycerides (42-150) mg/dL Cholesterol (120-200) mg/dL LDL Cholesterol, Calc (0-99) mg/dL HDL Cholesterol (40.0-60.0) mg/dL Cholesterol/HDL Ratio Ratio Free PSA ng/mL Total PSA (<=4.5) ng/mL PSA Free/Total Ratio ratio Nasal Screen MRSA (PCR) (Negative) Blood Type Blood Type Recheck Antibody Screen MTS Gel Crossmatch 09/07/18 09/07/18 Range/Units 05:20 05:20 CBC w Diff WBC 7.9 (4.0-11.0) th/mm3 RBC 2.86 L (4.50-5.90) mil/mm3 Hgb 8.5 L (13.0-17.0) gm/dL Hct 25.9 L (39.0-51.0) % MCV 90.6 (80.0-100.0) fL MCH 29.6 (27.0-34.0) pg MCHC 32.7 (32.0-36.0) % RDW 19.1 H (11.6-17.2) % Plt Count 105 L (150-450) th/mm3 MPV 7.5 (7.0-11.0) fL Prelim Diff (Auto) Neut % (Auto) 56.2 (16.0-70.0) % Lymph % (Auto) 36.0 (9.0-44.0) % Reynolds % (Auto) 6.9 (0.0-8.0) % Eos % (Auto) 0.4 (0.0-4.0) % Baso % (Auto) 0.5 (0.0-2.0) % Neut # (Auto) 4.4 (1.8-7.7) th/mm3 Lymph # (Auto) 2.8 (1.0-4.8) th/mm3 Reynolds # (Auto) 0.5 (0.0-0.9) th/mm3 Eos # (Auto) 0.0 (0.0-0.4) th/mm3 Baso # (Auto) 0.0 (0.0-0.2) th/mm3 WBC Differential . Diff Scan Seg Neuts % (Manual) (16-70) % Band Neuts % (Manual) (0-6) % Lymphocytes % (Manual) (9-44) % Monocytes % (Manual) (0-8) % Metamyelocytes % (Man) (0-1) % Myelocytes % (Man) (0-0) % Abs Neuts (Manual) (1.8-7.7) th/mm3 Nucleated RBCs/100 WBC (0-0) /100 WBC Differential Comment Auto diff final Platelet Estimate (Normal) Platelet Morphology (Normal) PT (9.8-11.6) sec INR Ratio APTT (23.4-31.7) sec Fibrinogen (227-377) mg/dL Puncture Site Patient Temperature O2 Saturation (90-100) % ABG pH (7.380-7.420) ABG pCO2 (38-42) mmHg ABG pO2 (61-120) mmHg ABG HCO3 (22-26) mmol/L ABG O2 Content (12.0-20.0) Vol % ABG Base Excess (-2-2) mmol/L ABG Methemoglobin (0-2) % Brent Test Hemoglobin (12.0-16.0) G/DL Carboxyhemoglobin (0-4) % O2 Delivery Device Inspired O2 % Critical Value Sodium 143 (136-145) meq/L Potassium 3.3 L (3.5-5.1) meq/L Chloride 104 (98-107) meq/L Carbon Dioxide 28.2 (21.0-32.0) meq/L Anion Gap 11 (5-15) meq/L BUN 26 H (7-18) mg/dL Creatinine 3.11 H (0.60-1.30) mg/dL Estimated GFR 20 L (>89) mL/min POC Glucose (68-110) mg/dl Random Glucose 76 (74-106) mg/dL Lactic Acid (0.4-2.0) mmol/L Calcium 8.0 L (8.5-10.1) mg/dL Calcium Adj for Albumin (8.5-10.1) mg/dL Phosphorus (2.5-4.9) mg/dL Magnesium (1.5-2.5) mg/dL Total Bilirubin 0.6 (0.2-1.0) mg/dL AST 48 H (15-37) U/L ALT 31 (12-78) U/L Alkaline Phosphatase 1054 H (45-117) U/L Total Creatine Kinase (39-308) U/L CK-MB (CK-2) (0.5-3.6) ng/mL CK-MB (CK-2) % (0.0-4.0) % Troponin I (0.02-0.05) ng/mL Total Protein 5.2 L (6.4-8.2) g/dL Albumin 2.0 L (3.4-5.0) g/dL Triglycerides (42-150) mg/dL Cholesterol (120-200) mg/dL LDL Cholesterol, Calc (0-99) mg/dL HDL Cholesterol (40.0-60.0) mg/dL Cholesterol/HDL Ratio Ratio Free PSA ng/mL Total PSA (<=4.5) ng/mL PSA Free/Total Ratio ratio Nasal Screen MRSA (PCR) (Negative) Blood Type Blood Type Recheck Antibody Screen MTS Gel Crossmatch Imaging Data Radiologist's impression: Chest X-Ray 09/03/18 12:05 CONCLUSION: Radiographic findings compatible with volume overload and pleural effusions. Pulmonary Perfusion Imaging 09/03/18 12:16 CONCLUSION: 1. No evidence for PE. Venous Doppler Study 09/03/18 12:16 CONCLUSION: 1. The study is negative for bilateral lower extremity deep venous thrombosis. Chest CT 09/03/18 14:44 CONCLUSION: 1. Widespread bony metastatic disease. 2. Moderate bilateral pleural effusions worse on the right. 3. Calcified left thyroid mass not changed since 2017. ECG Data EKG Prior to Arrival: No Attestation: I personally reviewed and interpreted this ECG as follows: Prior ECG tracings: available for review Interpretation: EKG at 1204: NSR at 96bpm, qt/qtc: 395/448, no acute changes ekg similar when compared to 08/14/18 Discharge Plan Discharge Disposition Patient Disposition: ED Admit(ED Internal Use Only) Discharge Condition Condition: Stable Discharge Order Discharge Orders: ED Use Only Admit Order (Routine); Ordered 09/03/18 Ordered By: Fiona Calixto Discharge Details Diagnosis: Non-ST elevation [place] (NSTEMI), GI (gastrointestinal bleed) Physicians Team ED Provider: Fiona Calixto Primary Care Provider: Primary Care Theodora,Bhavani Attending Provider: David Ragland Other Providers: Raffi Garcia ; Samson Colon ; Vance Roger ; Phoenix Sanders Status ED Status: Left Department Discharge Information Discharge Date/Time: 09/03/18 17:30
[2018-09-03 12:51] LABS: Baso # (Auto) 0.2 th/mm3 (0.0-0.2); Baso % (Auto) 2.8 % (0.0-2.0); Eos % (Auto) 0.1 % (0.0-4.0); Lymph # (Auto) 1.6 th/mm3 (1.0-4.8); Lymph % (Auto) 17.8 % (9.0-44.0); Mean Corpuscular HGB Conc 31.6 % (32.0-36.0); Mean Corpuscular Hemoglobin 28.4 pg (27.0-34.0); Mean Corpuscular Volume 89.8 fL (80.0-100.0); Mean Platelet Volume 7.8 fL (7.0-11.0); Mono # (Auto) 0.3 th/mm3 (0.0-0.9); Mono % (Auto) 3.7 % (0.0-8.0); Neut # (Auto) 6.8 th/mm3 (1.8-7.7); Neut % (Auto) 75.6 % (16.0-70.0); Platelet Count 159 th/mm3 (150-450); Red Cell Distribution Width 18.3 % (11.6-17.2); White Blood Count 8.9 th/mm3 (4.0-11.0)
--- NOTE | 2018-09-03 12:59 | XR ---
EXAM DATE: 09/03/2018 12:56 PM EST AGE/SEX: 63 years / Male INDICATIONS: Short of breath CLINICAL DATA: This is the patient's initial encounter. Patient reports that signs and symptoms have been present for 4 - 6 days and indicates a pain score of 0/10. MEDICAL/SURGICAL HISTORY: . Renal failure, acute. Anemia. Hypertension. Sepsis. Prostate cance r. Renal stone. Fistula. Dyspnea. . . . . Orthopedic surgery. [id number], central line for dialys is COMPARISON: [facility], CHEST 1V SINGLE AP, 08/13/2018. . FINDINGS: Dialysis catheter with the catheter overlying the level of the cavoatrial junction. Heart size appear s enlarged. Diffuse cephalization of pulmonary vasculature with bilateral hazy airspace opacities and obscuration of the bilateral hemidiaphragms and system with bilateral pleural effusions. CONCLUSION: Radiographic findings compatible with volume overload and pleural effusions. Electronically signed by: Nidia Rios MD Board Certified Radiologist 09/03/2018 12:58 PM E
[2018-09-03 13:00] LABS: Chloride 106 meq/L (98-107); Potassium 5.6 meq/L (3.5-5.1); Sodium 138 meq/L (136-145)
[2018-09-03 13:02] LABS: Hematocrit 19.8 % (39.0-51.0); Hemoglobin 6.2 gm/dL (13.0-17.0)
[2018-09-03 13:04] LABS: Albumin 2.6 g/dL (3.4-5.0); Anion Gap 16 meq/L (5-15); Blood Urea Nitrogen 27 mg/dL (7-18); Carbon Dioxide 16.5 meq/L (21.0-32.0); Glucose,Random 154 mg/dL (74-106); Magnesium 1.9 mg/dL (1.5-2.5)
[2018-09-03 13:06] LABS: Activated Partial Thrombo Time 34.5 sec (23.4-31.7); INR 2.1 Ratio; Prothrombin Time 21.5 sec (9.8-11.6)
[2018-09-03 13:07] LABS: Alanine Aminotransferase 13 U/L (12-78); Aspartate Aminotransferase 131 U/L (15-37); Glomerular Filtration Rate 14 mL/min (>89)
[2018-09-03 13:09] LABS: Total Protein 5.9 g/dL (6.4-8.2)
[2018-09-03 13:22] LABS: Alkaline Phosphatase 1529 U/L (45-117)
[2018-09-03] MEDS ORDERED: Vancomycin Inj 1,000 MG in Sodium Chlor 0.9% Inj 250 ML IV.SIG ONE (13:44)
[2018-09-03] MEDS ORDERED: Piperacil/Tazo 3.375 GM Premix 3.375 GM/50 ML PIGGYBACK IV.SIG ONE (13:44)
--- NOTE | 2018-09-03 14:01 | US ---
EXAM DATE: 09/03/2018 1:58 PM EST AGE/SEX: 63 years / Male INDICATIONS: Lower extremity edema. Shortness of breath. CLINICAL DATA: This is the patient's subsequent encounter. Patient reports that signs and symptoms h ave been present for 1 day and indicates a pain score of 0/10. MEDICAL/SURGICAL HISTORY: . Acute renal failure on dialysis. Anemia. Dyspnea. Hypertension. Kidney stone. Prostate cancer. Sepsis. C. difficile. Former smoker. . Major orthopedic surgery. COMPARISON: No prior exams available for comparison. TECHNIQUE: Venous ultrasound of both lower extremities was performed from the inguinal ligament to t he proximal calf. Real-time, color Doppler and spectral tracing, compression and augmentation techni ques were used. FINDINGS: Right Leg: Normal compression of the deep venous system from the inguinal region to the proximal dora f. No echogenic clot is seen. Normal response of the venous system to augmentation and respiration. Left Leg: Normal compression of the deep venous system from the inguinal region to the proximal calf . No echogenic clot is seen. Normal response of the venous system to augmentation and respiration. Other: None. CONCLUSION: 1. The study is negative for bilateral lower extremity deep venous thrombosis. Electronically signed by: Iveth Newell MD Board Certified Radiologist 09/03/2018 1:59 PM EST
[2018-09-03 14:26] LABS: Troponin I 11.7 ng/mL (0.02-0.05)
[2018-09-03 14:35] LABS: CKMB Percent 3.6 % (0.0-4.0); Creatine Kinase MB 11.7 ng/mL (0.5-3.6)
[2018-09-03] MEDS ORDERED: Bisacodyl 10 MG Supp RECTAL PRN (14:56)
[2018-09-03] MEDS ORDERED: Pantoprazole Inj 40 MG Vial IV.PUSH SCH (16:00)
--- NOTE | 2018-09-03 16:10 | NM ---
EXAM DATE: 09/03/2018 3:55 PM EST AGE/SEX: 63 years / Male INDICATIONS: Embolus and dyspnea. CLINICAL DATA: This is the patient's initial encounter. Patient reports that signs and symptoms have been present for 2 days and indicates a pain score of 0/10. MEDICAL/SURGICAL HISTORY: Renal calculi. Renal failure, chronic. Anemia. Hypertension, MDRO, prostate cancer. None. COMPARISON: [facility], CHEST 1V SINGLE AP, 09/03/2018. . DOSE: 1.44 mCi Tc99m DTPA aerosol 8.8 mCi Tc99m MAA IV TECHNIQUE: Following five minutes of tidal breathing of DTPA aerosol, planar images of the lungs wer e performed in eight projections. The patient was then injected with MAA, and eight-view perfusion s can was performed. FINDINGS: There is a homogeneous pattern of aerosol delivery to the periphery of both lungs. No focal ventilat ory defects are seen. The perfusion lung scan demonstrates a homogenous pattern of uptake in both lungs. No segmental or s ubsegmental defects are seen. Site right pleural effusion is present. CONCLUSION: 1. No evidence for PE. Electronically signed by: Iveth Newell MD Board Certified Radiologist 09/03/2018 4:08 PM EST
--- NOTE | 2018-09-03 16:24 | CT ---
EXAM DATE: 09/03/2018 4:18 PM EST AGE/SEX: 63 years / Male INDICATIONS: Short of breath on exertion. CLINICAL DATA: This is the patient's initial encounter. Patient reports that signs and symptoms have been present for 3 days and indicates a pain score of 0/10. MEDICAL/SURGICAL HISTORY: Hypertension. Carcinoma, prostatic. Renal calculi. Acute renal failure . None. RADIATION DOSE: 16.70 CTDI (mGy) COMPARISON: [facility], CT THORAX W/O CONTRAST, 03/21/2017. . TECHNIQUE: Multiple contiguous axial images were obtained through the chest without contrast. Image s were obtained in suspended respiration using multiple row detector helical technique. Using automa jacek exposure control and adjustment of the mA and/or kV according to patient size, radiation dose was kept as low as reasonably achievable to obtain optimal diagnostic quality images. DICOM format imag e data is available electronically for review and comparison. FINDINGS: The lungs are clear without infiltrate, nodule, or mass. Approximate 3.2 cm mass is present in the l eft thyroid gland with rim-like calcifications. There are old healed rib fractures bilaterally. Multiple sclerotic lesions are present involving basi kenna all of the visualized thoracic vertebrae and the some of the ribs bilaterally in addition to bi lateral humeri, scapula, sternum and clavicles characteristic of metastatic disease. Moderate bilater al pleural effusions are seen worse on the right. No appreciable pathological adenopathy is seen with in the mediastinum. Coronary artery calcifications are seen typically seen with coronary artery dise ase and clinical correlation and evaluation is suggested. The left adrenal gland is slightly prominen t probably an adenoma. CONCLUSION: 1. Widespread bony metastatic disease. 2. Moderate bilateral pleural effusions worse on the right. 3. Calcified left thyroid mass not changed since 2016. Electronically signed by: Iveth Newell MD Board Certified Radiologist 09/03/2018 4:22 PM EST
[2018-09-03 16:27] LABS: ABG Base Excess -6.7 mmol/L (-2-2); ABG PCO2 23 mmHg (38-42); ABG PO2 98 mmHg (61-120)
[2018-09-03] MEDS ORDERED: Morphine Inj 4 MG/ML Vial IV.PUSH ONE (16:44)
[2018-09-03] MEDS: Pantoprazole Inj 80 MG in Sodium Chlor 0.9% Inj 100 ML IV.CONT SCH (17:07)
--- NOTE | 2018-09-03 17:20 | MB ---
cc: Raffi Garcia MD DATE: 09/03/2018 REASON FOR CONSULTATION: Non-STEMI. HISTORY OF PRESENT ILLNESS: The patient is a very pleasant 63-year-old gentleman with multiple medical problems including end-stage renal disease on hemodialysis and history of prostate cancer as well as prior C. difficile and anemia. The patient presents with worsening acute on chronic shortness of breath and was found in the emergency department to be severely anemic with quite elevated troponins. Apparently, he did receive nitroglycerin paste, which relieved his symptoms fairly quickly. The patient has been somewhat ambivalent on whether he wanted to pursue aggressive therapy, but currently he does wish to be fully diagnosed and treated including invasive procedures. At the moment, the patient feels generally weak, but is not actively having chest pain or shortness of breath. PAST MEDICAL HISTORY: 1. Prior NSTEMI treated medically due to the patient's wishes and ongoing gastrointestinal bleed. 2. Anemia. 3. End-stage renal disease, on hemodialysis. 4. Hypertension. 5. Metastatic prostate cancer. CURRENT MEDICATIONS: 1. Albuterol. 2. Lactulose. 3. Protonix. 4. Zosyn. ALLERGIES: 1. TETANUS. 2. AMOXICILLIN. PHYSICAL EXAMINATION: VITAL SIGNS: Afebrile, pulse 90, respiratory rate 20, BP 100/60, saturating 98 on room air. GENERAL: A very pleasant, chronically ill-appearing, frail gentleman in no distress. NECK: No JVD. LUNGS: Clear to auscultation bilaterally. CARDIOVASCULAR: Regular rate and rhythm without any significant murmurs. EXTREMITIES: Trace to 1+ edema bilaterally. LABORATORY DATA: Sodium 138, potassium 5.6, chloride 106, bicarbonate 16.5, BUN 27, creatinine 4.4. Lactate is 6.0. Glucose is 154. Troponin is 11.7, INR is 2.1, AST of 131, alkaline phosphatase is 1529. EKG shows sinus rhythm with diffuse ST and T-wave changes. IMPRESSION: Non-ST elevation myocardial infarction. The patient has a non-ST elevation myocardial infarction with some vague chest discomfort, but mostly shortness of breath, relieved with nitroglycerin in the setting of likely gastrointestinal bleed. This is a common clinical dilemma, given the need for GI procedures as well as the need for a cardiac catheterization, which potentially could require anticoagulation. At this point, given the low risk nature of a colonoscopy and endoscopy, I would recommend that procedure be done first and the patient will have to accept the higher risk of the procedure, given his unclear cardiac status. Once this procedure is done, we can then have him undergo a cardiac catheterization and proceed from there with his revascularization options, should there be any. Clearly, the patient is very sick with multiple acute on chronic problems and his prognosis is likely rather poor. All this was discussed with the patient and he at this point wants to pursue aggressive therapy. Thank you again for the opportunity to participate in this patient's care. MD KENAN Yan/love , 04:33 PM , 04:42 PM
[2018-09-03] MEDS ORDERED: Sodium Polystyrene Sulfonate/Sorbitol Liq 15 GM/60 ML UDC PO ONE (18:09)
--- NOTE | 2018-09-03 18:17 | P.HPCC ---
History of Present Illness Service: [facility] Primary Care Physician: No Primary Care Physician Chief Complaint: Shortness of breath History of Present Illness: 63yM presenting to [place] ED today with several days of dyspnea both on rest and on exertion and palpitations. The patient states that he's been having shortness of breath for the past several days but came to the ED this afternoon because he was unable to catch his breath. He was found to have a hemoglobin of 6.2 and NSTEMI with troponin of 11.7. He also had a potassium of 5.6 without EKG changes concerning for acute hyperkalemia. Consults were placed with cardiology/ nephrology/ gastroenterology and transferred to the main campus for ICU level of care, GI evaluation/ possible cardiology intervention if needed. 2U PRBCs are ordered for transfusion. 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 Duval. The patient was admitted to our institution in 07/2018 for similar symptoms, found to have guaiac positive stool but declined endoscopy/ colonoscopy at that time. He has also been treated for C diff colitis with PO flagyl x several weeks, reports no bloody/ black/ tarry stools or diarrhea currently. - Diagnosis (1) Anemia (2) End stage renal disease (3) Prostate cancer metastatic to bone (4) GI (gastrointestinal bleed) (5) NSTEMI (non-ST elevated myocardial infarction) Inpatient Certification: I certify that the inpatient services were ordered in accordance with Medicare regulations governing the order. This includes certification that hospital inpatient services are reasonable and necessary and in the case of services not specified as inpatient-only under 42 CFR 419.22(n), that they are appropriately provided as inpatient services in accordance to with the 2-midnight benchmark under 43 CFR 412.3(e) Estimated Total Length of Stay (Days): 7 Plans for Post Hospital Care: Not yet determined Review of Systems All other systems reviewed negative except as stated in HPI Constitutional: Denies fever(s) Cardiovascular: Denies chest pain Comments: Positive for palpitations Respiratory: Reports shortness of breath Gastrointestinal: Denies abdominal pain, Denies black, tarry stools, Denies bright, red blood in stools Genitourinary: Denies painful urination Comments: Positive for chronic oliguria secondary to ESRD Neurologic: Denies confusion Psychiatric: Denies confusion [facility] - History History Provided By: Patient - Medical History Medical History: Medical History (Last Reviewed 09/03/18 @ 18:42 by Allyson Eason DO) Acute renal failure Acute renal failure on dialysis Anemia Dyspnea Fistula Hypertension Kidney stone MDRO (multiple drug resistant organisms) resistance Onset Date: ~07/19/18 Prostate CA Sepsis Vascular dialysis catheter in place - Surgical History Surgical History: Surgical History (Last Reviewed 09/03/18 @ 18:42 by Allyson Eason DO) H/O major orthopedic surgery - Family History Family History: Family History (Last Reviewed 09/03/18 @ 12:27 by Fiona Calixto) Other CVA (cerebral vascular accident) - Social History I have reviewed the patient's Social History: Yes - Tobacco History Second Hand Smoke Exposure: Yes Tobacco Use In Past 30 Days: Yes Smoking Status: Current every day smoker Tobacco Type: Cigarettes - Alcohol History How Often Do You Have a Drink Containing Alcohol: 2 to 3 times a week - Substance Use History Substance History: No History of Abuse - Travel History Recent Travel Out of the Country Within the Last 8 Weeks: No - Immunization History Tetanus Immunization: Unsure Medications and Allergies Active Medications: Active Medications Al Hydroxide/Mg Hydroxide (Milk Of Yaritza Liforeign) 30 ml PO Q12H PRN PRN Reason: Mild Constipation Albuterol (Albuterol Neb (Prn)) 2.5 mg NEB Q2HR NEB PRN PRN Reason: SHORTNESS OF BREATH Albuterol (Duoneb Neb (Nasreen)) 1 ampul NEB Q6HR NEB NASREEN Bisacodyl (Dulcolax Supp) 10 mg RECTAL DAILY PRN PRN Reason: SEVERE CONSITIPATION Chlorhexidine Gluconate (Chlorhexidine 2% Cloth) 3 pack TOPICAL DAILY@0400 NASREEN Stop: 09/09/18 03:59 Chlorhexidine Gluconate (Chlorhexidine 2% Cloth) 3 pack TOPICAL DAILY@0400 PRN PRN Reason: Extra cloth needed Stop: 09/09/18 03:59 Piperacillin/Tazobactam/Dextrose (Zosyn 2.25 Gm Premix) 2.25 gm in 50 mls @ 100 mls/hr IV.SIG Q8H NASREEN Pantoprazole Sodium 80 mg/ (Sodium Chloride) 100 mls @ 10 mls/hr IV.CONT CONT NASREEN Last Admin: 12/16/18 17:07 Dose: 10 mls/hr Lactulose (Lactulose Liq) 30 ml PO DAILY PRN PRN Reason: SEVERE CONSITIPATION Oxycodone/Acetaminophen (Percocet 5/325 Mg) 1 tab PO Q6H PRN PRN Reason: PAIN SCALE 1 TO 10 Last Admin: 09/03/18 17:08 Dose: 1 tab Senna/Docusate Sodium (Negin-Colace) 1 tab PO BID [facility] Sennosides (Senokot) 17.2 mg PO Q12H PRN PRN Reason: Moderate Constipation Sodium Chloride (Ns Flush) 2 ml IV.FLUSH PRN PRN PRN Reason: FLUSH AFTER USING IV ACCESS Sodium Chloride (Ns Flush) 2 ml IV.FLUSH BID [facility] Tamsulosin HCl (Flomax) 0.4 mg PO DAILY [facility] Allergies Allergy/AdvReac Type Severity Reaction Status Date / Time Tetanus Vaccines and Toxoid Allergy Severe Fever Verified 08/13/18 15:46 amoxicillin AdvReac Mild Nausea/Vomi Verified 08/13/18 15:46 ting Home Medications Medication Instructions Recorded Confirmed Type bicalutamide 50 mg PO HS 07/09/18 09/03/18 History tamsulosin [Flomax] 0.4 mg PO DAILY 07/09/18 09/03/18 History Results - Labs CBC & Chem 7: 09/03/18 12:30 09/03/18 12:30 Labs: Short CBC 09/03/18 Range/Units 12:30 WBC 8.9 (4.0-11.0) th/mm3 Hgb 6.2 L* (13.0-17.0) gm/dL Hct 19.8 L* (39.0-51.0) % Plt Count 159 (150-450) th/mm3 [facility] 09/03/18 12:30 Sodium 138 Potassium 5.6 H Chloride 106 Carbon Dioxide 16.5 L BUN 27 H Creatinine 4.40 H Calcium 8.0 L Cardiac Enzymes 09/03/18 09/03/18 Range/Units 12:30 16:25 Total Creatine Kinase 328 H (39-308) U/L CK-MB (CK-2) 11.7 H (0.5-3.6) ng/mL Troponin I 11.70 H* 13.30 H* (0.02-0.05) ng/mL Liver Function 09/03/18 Range/Units 12:30 Total Bilirubin 0.3 (0.2-1.0) mg/dL AST 131 H (15-37) U/L ALT 13 (12-78) U/L Alkaline Phosphatase 1529 H (45-117) U/L Albumin 2.6 L (3.4-5.0) g/dL - Imaging Impressions Chest X-Ray 09/03/18 12:05 CONCLUSION: Radiographic findings compatible with volume overload and pleural effusions. Pulmonary Perfusion Imaging 09/03/18 12:16 CONCLUSION: 1. No evidence for PE. Venous Doppler Study 09/03/18 12:16 CONCLUSION: 1. The study is negative for bilateral lower extremity deep venous thrombosis. Chest CT 09/03/18 14:44 CONCLUSION: 1. Widespread bony metastatic disease. 2. Moderate bilateral pleural effusions worse on the right. 3. Calcified left thyroid mass not changed since 2017. - ECG Attestation: I personally reviewed and interpreted this ECG as follows: Interpretation: Rate: 96 BPM Rhythm: Sinus [place]: Left Intervals: Normal intervals, no blocks, QTc 458 ms Q waves: III, aVF T waves: Inverted in aVL ST segments: Minimal depressions in V5-V6, no elevations Impression: Non-specific EKG, no changes concerning for acute hyperkalemia, no changes as compared to EKG from 08/14/2018. Exam Vital signs: Vital Signs 09/03/18 12:07 09/03/18 13:09 09/03/18 14:00 Temperature 98.8 F Pulse Rate 94 H 90 Respiratory Rate 22 20 Blood Pressure 106/63 107/62 Pulse Oximetry 98 100 98 Intake & Output 09/02/18 09/03/18 09/03/18 18:59 06:59 18:59 Intake Total 50 / 50 Balance 50 / 50 Weight 79.379 kg Intake: IV 50 / 50 Zosyn 3.375 GM Premix 3.375 gm 50 / 50 In 50 ml @ 100 mls/hr IV.SIG ONCE ONE Rx#:[id number] Narrative: GEN: Frail-appearing elderly male sitting up in bed, no acute distress HEENT: NCAT, PERRL, mucosa pale NECK: Trachea midline CARDIO: Borderline tachy, regular. HD cath present in right upper chest. PULM: Diminished at bases bilaterally, no tachypnea or respiratory distress ABD/GI: Soft, non-tender in all quadrants EXT/MSK: 1+ lower extremity edema bilaterally SKIN: Pallor NEURO: A&Ox3, speech clear and fluent, no focal neuro deficits PSYCH: Appropriate affect Caprini VTE Risk Assessment Capchristiani VTE Risk Assessment: Moderate/High Risk (score >= 2) VTE Pharmacological Exception Reason: Active bleeding Caprini Risk Assessment Model: Point Value = 1 Point Value = 2 Point Value = 3 Point Value = 5 Age 41-60 Minor surgery BMI > 25 kg/m2 Swollen legs Varicose veins or History of unexplained or recurrent spontaneous Oral contraceptives or hormone replacement Sepsis (< 1 month) Serious lung disease, including pneumonia (< 1 month) Abnormal pulmonary function Acute myocardial infarction Congestive heart failure (< 1 month) History of inflammatory bowel disease Medical patient at bed rest Age 61-74 Arthroscopic surgery Major open surgery (> 45 min) Laparoscopic surgery (> 45 min) Malignancy Confined to bed (> 72 hours) Immobilizing plaster cast Central venous access Age >= 75 History of VTE Family history of VTE Factor V Leiden Prothrombin [id number] Lupus anticoagulant Anticardiolipin antibodies Elevated serum homocysteine Heparin-induced thrombocytopenia Other congenital or acquired thrombophilia Stroke (< 1 month) Elective arthroplasty Hip, pelvis, or leg fracture Acute spinal cord injury (< 1 month) Prophylaxis Regimen: Total Risk Factor Score Risk Level Prophylaxis Regimen 0-1 Low Early ambulation 2 Moderate Order ONE of the following: *Sequential Compression Device (SCD) *Heparin 5000 units SQ BID 3-4 Higher Order ONE of the following medications: *Heparin 5000 units SQ TID *Enoxaparin/Lovenox 40 mg SQ daily (WT < 150 kg, CrCl > 30 mL/min) *Enoxaparin/Lovenox 30 mg SQ daily (WT < 150 kg, CrCl > 10-29 mL/min) *Enoxaparin/Lovenox 30 mg SQ BID (WT < 150 kg, CrCl > 30 mL/min) AND/OR *Sequential Compression Device (SCD) 5 or more Highest Order ONE of the following medications: *Heparin 5000 units SQ TID (Preferred with Epidurals) *Enoxaparin/Lovenox 40 mg SQ daily (WT < 150 kg, CrCl > 30 mL/min) *Enoxaparin/Lovenox 30 mg SQ daily (WT < 150 kg, CrCl > 10-29 mL/min) *Enoxaparin/Lovenox 30 mg SQ BID (WT < 150 kg, CrCl > 30 mL/min) AND *Sequential Compression Device (SCD) Assessment and Plan - Problem List (1) Anemia Code(s): D64.9 - Anemia, unspecified Status: Acute (2) End stage renal disease Code(s): N18.6 - End stage renal disease Status: Chronic (3) Prostate cancer metastatic to bone Code(s): C61 - Malignant neoplasm of prostate; C79.51 - Secondary malignant neoplasm of bone Status: Chronic (4) GI (gastrointestinal bleed) Code(s): K92.2 - Gastrointestinal hemorrhage, unspecified Status: Acute (5) NSTEMI (non-ST elevated myocardial infarction) Code(s): I21.4 - Non-ST elevation (NSTEMI) myocardial infarction Status: Acute - Assessment and Plan Plan: 63yM presenting with type II NSTEMI secondary to acute blood loss anemia/ suspected recurrent lower GI bleed NEURO: Tobacco use disorder Chronic pain * Patient counseled on smoking cessation, nicotine patch ordered * Pain control as needed * Patient reports that he has 1 alcoholic drink each night, monitor for signs/ symptoms of withdrawal CARDIO: Type II NSTEMI * Secondary to acute anemia, see below * ASA only, heparin contraindicated in the setting of GI bleed * 2D echo ordered * Trend troponins/ EKGs * Cardiology recommendations appreciated, patient may need diagnostic cardiac cath after colonoscopy * Check lipid panel with AM labs, patient may benefit from starting beta fab before discharge but will hold off for now in the setting of GI bleed RESP: Bilateral pleural effusions Dyspnea * Incentive spirometer * Nebs scheduled and PRN * Nicotine patch * CXR and V/Q scan negative for PE or PNA F/E/N, RENAL: Acute hyperkalemia End stage renal disease on hemodialysis * Patient's K+ 5.6 on presentation, no EKG changes, given kayexalate and bicarb by Dr. Roger * AM labs * HD tomorrow as per patient's normal schedule () * NPO in preparation for colonoscopy, no maintenance fluids HEME/ GI: Suspected recurrent GI bleed, likely lower Acute on chronic normocytic anemia secondary to blood loss * 2U PRBCs now * Check FOBT * Monitor H/H, previous records show baseline hemoglobin is around 8-9 (related to chronic kidney disease), will keep hemoglobin >8 in the setting of NSTEMI * Bilateral LE duplex negative for DVT * Colonoscopy tomorrow * GI recommendations appreciated : History of metastatic prostate CA * Continue home Flomax * Hold bicalutamide for now ID: History of C diff colitis Lactic acidosis * Patient getting volume with PRBCs, does not require additional IV fluids for now * Trend lactic acid * Recheck stool C diff, continue home PO metronidazole * Patient given zosyn in ED, continue for now until blood cultures result; patient declined vancomycin * F/U blood cultures, increased risk for bacteremia as he has indwelling HD catheter PROPHY: * SCDs only, heparin contraindicated in the setting of acute blood loss anemia * Protonix BID in the setting of GIB OVERALL: This patient is critically ill with type II NSTEMI and acute blood loss anemia; he requires ICU level of care for resuscitation and close monitoring. The patient refused colonoscopy on his previous admission but wants to continue aggressive management/ full code. Will request palliative care consultation in AM; he may benefit from further discussions on goals of care given his multiple chronic and acute issues. Counseling/ Coordination of Care: This patient is critically ill with impairment of one or more vital organ systems with a high probability of imminent or life-threatening deterioration. High-complexity medical decision making was required to support vital organ function and/ or prevent deterioration in the patient's condition. Total critical care time spent is 48 minutes giving full attention to this patient. This includes examining the patient, gathering history from someone other than the patient (i.e. chart review), discussing the patient's care with other providers, ordering and interpreting radiologic studies, ordering and interpreting laboratory values, and documentation. Amount of time is separate from teaching, counseling the patient and/or family, and exclusive of procedures. Code Status: Full (1) Anemia Qualifiers: Anemia type: due to chronic kidney disease Chronic kidney disease stage: on chronic dialysis Qualified Code(s): N18.6 - End stage renal disease; D63.1 - Anemia in chronic kidney disease; Z99.2 - Dependence on renal dialysis
[2018-09-03] MEDS ORDERED: Famotidine 20 MG Tablet PO SCH (21:00)
[2018-09-03] MEDS: Senna/Docusate Sodium 8.6/50 MG Tablet PO SCH (21:44)
[2018-09-03] MEDS: metroNIDAZOLE 500 MG Tablet PO SCH (21:45)
[2018-09-03] MEDS: Piperacil/Tazo 2.25 GM Premix 2.25 GM/50 ML PIGGYBACK IV.SIG SCH (21:46)
[2018-09-04] MEDS ORDERED: Chlorhexidine Gluconate 2% 1 Pack (2 Cloths) TOPICAL PRN (04:00)
[2018-09-04] MEDS: metroNIDAZOLE 500 MG Tablet PO SCH ×3 (05:16→21:31)
[2018-09-04] MEDS: Chlorhexidine Gluconate 2% 1 Pack (2 Cloths) TOPICAL SCH (05:20)
[2018-09-04] MEDS: Pantoprazole Inj 80 MG in Sodium Chlor 0.9% Inj 100 ML IV.CONT SCH ×2 (05:49→15:08)
[2018-09-04] MEDS: Piperacil/Tazo 2.25 GM Premix 2.25 GM/50 ML PIGGYBACK IV.SIG SCH ×3 (05:50→21:32)
[2018-09-04 06:39] LABS: Baso % (Auto) 0.2 % (0.0-2.0); Eos % (Auto) 0.2 % (0.0-4.0); Hematocrit 28.1 % (39.0-51.0); Hemoglobin 9.6 gm/dL (13.0-17.0); Lymph # (Auto) 2.6 th/mm3 (1.0-4.8); Lymph % (Auto) 30.7 % (9.0-44.0); Mean Corpuscular HGB Conc 34.3 % (32.0-36.0); Mean Corpuscular Hemoglobin 30.7 pg (27.0-34.0); Mean Corpuscular Volume 89.4 fL (80.0-100.0); Mean Platelet Volume 7.7 fL (7.0-11.0); Mono # (Auto) 0.3 th/mm3 (0.0-0.9); Mono % (Auto) 3.8 % (0.0-8.0); Neut # (Auto) 5.6 th/mm3 (1.8-7.7); Neut % (Auto) 65.1 % (16.0-70.0); Platelet Count 145 th/mm3 (150-450); Red Blood Count 3.14 mil/mm3 (4.50-5.90); Red Cell Distribution Width 19.1 % (11.6-17.2); White Blood Count 8.6 th/mm3 (4.0-11.0)
[2018-09-04 06:42] LABS: Alanine Aminotransferase 111 U/L (12-78); Albumin 2.8 g/dL (3.4-5.0); Anion Gap 12 meq/L (5-15); Aspartate Aminotransferase 657 U/L (15-37); Blood Urea Nitrogen 38 mg/dL (7-18); Calcium 7.7 mg/dL (8.5-10.1); Carbon Dioxide 19.9 meq/L (21.0-32.0); Chloride 107 meq/L (98-107); Glomerular Filtration Rate 13 mL/min (>89); Glucose,Random 111 mg/dL (74-106); Magnesium 1.9 mg/dL (1.5-2.5); Phosphorus 3.5 mg/dL (2.5-4.9); Potassium 5.1 meq/L (3.5-5.1); Sodium 139 meq/L (136-145)
[2018-09-04 06:46] LABS: Chol/HDL Ratio 3.18 Ratio; HDL Cholesterol 33.6 mg/dL (40.0-60.0)
[2018-09-04 06:56] LABS: Alkaline Phosphatase 1938 U/L (45-117); Total Protein 6.5 g/dL (6.4-8.2)
[2018-09-04] MEDS: Senna/Docusate Sodium 8.6/50 MG Tablet PO SCH ×2 (08:16→21:31)
--- NOTE | 2018-09-04 08:32 | MB ---
cc: Vance Roger MD DATE: 09/03/2018 REASON FOR CONSULTATION: End-stage renal disease, on hemodialysis for management. HISTORY OF PRESENT ILLNESS: This is a very pleasant 63-year-old male with past medical history of hypertension, prostate cancer with metastasis, chronic anemia, end-stage renal disease on hemodialysis 3 times per week, history of C. difficile colitis, came to the emergency department with complaint of generalized body pain and shortness of breath. I was called to see the patient for the management of dialysis. He has been on hemodialysis so far is getting the dialysis with a PermCath. He has left arm AV fistula, which has been used few times, but it has ecchymosis and according to him now, they are using the PermCath for the last two dialysis. The patient has been following with Dr. Duval and has been on hemodialysis for last 14 months. He mainly came because of shortness of breath on exertion and has pain in his back and in his hip. Denies any chest pain. Denies any history of fever. He has no cough, no nausea, vomiting, no abdominal pain. No history of diarrhea. His appetite has been decreased and according to him, he does not have any taste for the food. He has no nausea or vomiting. PAST MEDICAL HISTORY: Hypertension, history of prostate cancer, end-stage renal disease on hemodialysis, history of sepsis in the past, history of C. difficile colitis. PAST SURGICAL HISTORY: Left arm AV fistula surgery. REVIEW OF SYSTEMS: The patient has generalized weakness, feeling tired, has decreased appetite, decreased taste for the food. No nausea, vomiting. No abdominal pain. No history of diarrhea. There is no chest pain. There is no cough. No palpitation. SOCIAL HISTORY: The patient is a chronic smoker. There is no history of heavy alcoholism. Drinks 2-3 drinks per week. FAMILY HISTORY: Noncontributory. ALLERGIES: TOXOID AND AMOXICILLIN. MEDICATIONS: Currently, he is on following medications: 1. Albuterol p.r.n. 2. DuoNeb nebulizer. 3. Dulcolax suppository. 4. Lactulose p.r.n. 5. Percocet as needed. 6. Zosyn 2.25 grams q. 8 hours. 7. Negin-Colace 1 tablet b.i.d. 8. Senokot 17.2 mg q. 12 hours. PHYSICAL EXAMINATION: GENERAL: The patient is awake, alert. He is not in acute distress. VITAL SIGNS: Blood pressure is 107/62, temperature 98.8, oxygen saturation on room air is 98 to 100%. HEENT: Pupils appear mid constricted. Nonicteric sclerae. Conjunctivae pale. NECK: Supple. JVD is not elevated. LUNGS: With bilateral decreased air entry with scattered wheezing. HEART: S1, S2. Regular rate and rhythm. ABDOMEN: Soft. No tenderness. Bowel sounds positive. EXTREMITIES: There is no pedal edema. Left arm has ecchymosis around the AV fistula and AV fistula has no bruit. LABORATORY DATA: WBC count is 8.9, hemoglobin 6.2, platelet count 159, neutrophils 75.6%. INR is 2.1. Arterial blood gas pH of 7.47, pCO2 of 23, pO2 of 98. Sodium 138, potassium 5.6, chloride 106, bicarbonate 16.5, BUN 37, creatinine 4.4. Lactic acid is 5.0. It was 6.0. Calcium 8.0, magnesium . AST is 131, ALT is 13. Troponin is 13.3, albumin is 2.6, total protein is 5.9. Blood cultures pending. IMAGING STUDIES: The patient had chest x-ray done, which shows mild fluid overload with pleural effusion. The patient also has perfusion imaging done, which shows homogeneous pattern of uptake. No segmental or subsegmental defect. Right pleural effusion is present. Venous Doppler study was done, which was negative for bilateral lower extremity deep vein thrombosis. CT scan of the chest was done without IV contrast and shows widespread bony metastasis, moderate bilateral pleural effusion, worse on the right side. Calcified left thyroid . ASSESSMENT AND PLAN: 1. Shortness of breath. 2. Severe anemia. 3. Prostate cancer with metastasis. 4. End-stage renal disease on hemodialysis. 5. Hyperkalemia and metabolic acidosis. 6. Lactic acidosis. 7. The patient has severe anemia and this is probably contributing to his shortness of breath. He also has pleural effusion. This could be because of the metastasis. His saturation on room air is 98 to 100% and the potassium is 5.6. I will give him some treatment for hyperkalemia including the bicarbonate and Kayexalate. There is no acute urgent need for dialysis at present and the patient is going to be transferred to the main hospital. Dr. Duval has been following the patient, so he will follow the patient from tomorrow and he will try to get him dialyzed in the morning. Thank you for the consultation. MD NICHOLAS Rawls/yulia/alexandrea , 06:08 PM , 06:22 PM
--- NOTE | 2018-09-04 10:07 | P.PNCC ---
Subjective Subjective Remarks/Hospital Course: 09/04: No acute events overnight. Patient undergoing hemodialysis at this time , denies chest pain. Troponin continues to be elevated, continue monitoring with CPK-MB. Patient hemodynamically stable, hemoglobin now, 9.6 status post transfusion of 2 units of PRBC's. No active signs of bleeding, no hematemesis, hematochezia ,nor melena reported overnight. The patient continues on Protonix infusion and serial monitoring of the hemoglobin. Objective Vital Signs / I&O: Vital Signs 09/03/18 12:07 09/03/18 13:09 09/03/18 14:00 Temperature 98.8 F Pulse Rate 94 H 90 Respiratory Rate 22 20 Blood Pressure 106/63 107/62 Pulse Oximetry 98 100 98 09/03/18 18:00 09/03/18 20:00 09/03/18 21:05 Temperature 98.3 F 98.4 F 98.5 F Pulse Rate 84 76 82 Respiratory Rate 24 18 18 Blood Pressure 99/72 L 106/63 106/69 Pulse Oximetry 100 100 09/03/18 23:10 09/03/18 23:11 09/03/18 23:42 Temperature 98.2 F Pulse Rate 84 81 Respiratory Rate 20 18 Blood Pressure 118/72 Pulse Oximetry 100 99 09/03/18 23:44 09/04/18 00:00 09/04/18 01:24 Temperature 98.2 F 98.2 F Pulse Rate 81 84 Respiratory Rate 18 17 16 Blood Pressure 118/72 122/76 Pulse Oximetry 99 98 09/04/18 04:00 09/04/18 04:52 09/04/18 04:54 Temperature 98.3 F Pulse Rate 82 80 Respiratory Rate 16 21 Blood Pressure 125/70 Pulse Oximetry 98 96 09/04/18 09:01 Temperature Pulse Rate 81 Respiratory Rate 16 Blood Pressure Pulse Oximetry Intake & Output 09/03/18 09/04/18 09/04/18 18:59 06:59 18:59 Intake Total 50 / 50 600 / 600 Balance 50 / 50 600 / 600 Weight 79.379 kg Intake: IV 50 / 50 200 / 200 Protonix Inj 80 MG In NS Inj 100 / 100 100 ML @ 10 mls/hr IV.CONT CONT CYNDIE Rx#:[id number] Zosyn 2.25 GM Premix 2.25 gm In 100 / 100 50 ml @ 100 mls/hr IV.SIG Q8H CYNDIE Rx#:[id number] Zosyn 3.375 GM Premix 3.375 gm 50 / 50 In 50 ml @ 100 mls/hr IV.SIG ONCE ONE Rx#:[id number] Intake (Blood Product) Amt 400 / 400 Rbc As-3 Leukoreduced Unit 400 / 400 [id number] Rbc As-3 Leukoreduced Unit 0 / 0 [id number] Other: Date of Last Bowel Movement 09/03/18 09/03/18 Result Diagrams: 09/04/18 06:16 09/04/18 06:16 Other Results: Laboratory Results CBC w Diff Slide review pending 09/03/18 12:30 WBC 8.6 th/mm3 (4.0-11.0) 09/04/18 06:16 RBC 3.14 mil/mm3 (4.50-5.90) L 09/04/18 06:16 Hgb 9.6 gm/dL (13.0-17.0) L D 09/04/18 06:16 Hct 28.1 % (39.0-51.0) L 09/04/18 06:16 MCV 89.4 fL (80.0-100.0) 09/04/18 06:16 MCH 30.7 pg (27.0-34.0) 09/04/18 06:16 MCHC 34.3 % (32.0-36.0) 09/04/18 06:16 RDW 19.1 % (11.6-17.2) H 09/04/18 06:16 Plt Count 145 th/mm3 (150-450) L 09/04/18 06:16 MPV 7.7 fL (7.0-11.0) 09/04/18 06:16 Prelim Diff (Auto) Slide review pending 09/04/18 06:16 Neut % (Auto) 65.1 % (16.0-70.0) 09/04/18 06:16 Lymph % (Auto) 30.7 % (9.0-44.0) 09/04/18 06:16 [place] % (Auto) 3.8 % (0.0-8.0) 09/04/18 06:16 Eos % (Auto) 0.2 % (0.0-4.0) 09/04/18 06:16 Baso % (Auto) 0.2 % (0.0-2.0) 09/04/18 06:16 Neut # (Auto) 5.6 th/mm3 (1.8-7.7) 09/04/18 06:16 Lymph # (Auto) 2.6 th/mm3 (1.0-4.8) 09/04/18 06:16 [place] # (Auto) 0.3 th/mm3 (0.0-0.9) 09/04/18 06:16 Eos # (Auto) 0.0 th/mm3 (0.0-0.4) 09/04/18 06:16 Baso # (Auto) 0.0 th/mm3 (0.0-0.2) 09/04/18 06:16 WBC Differential . 09/03/18 12:30 Diff Scan Auto diff confirmed 09/03/18 12:30 Differential Comment . 09/04/18 06:16 PT 21.5 sec (9.8-11.6) H 09/03/18 12:30 INR 2.1 Ratio 09/03/18 12:30 APTT 34.5 sec (23.4-31.7) H 09/03/18 12:30 Puncture Site Right radial 09/03/18 16:17 Patient Temperature 98.6 09/03/18 16:17 O2 Saturation 96 % (90-100) 09/03/18 16:17 ABG pH 7.47 (7.380-7.420) H 09/03/18 16:17 ABG pCO2 23 mmHg (38-42) L* 09/03/18 16:17 ABG pO2 98 mmHg (61-120) 09/03/18 16:17 ABG HCO3 16 mmol/L (22-26) L* 09/03/18 16:17 ABG O2 Content 8.5 Vol % (12.0-20.0) L 09/03/18 16:17 ABG Base Excess -6.7 mmol/L (-2-2) L 09/03/18 16:17 ABG Methemoglobin 1.3 % (0-2) 09/03/18 16:17 Brent Test Present 09/03/18 16:17 Hemoglobin 6.2 G/DL (12.0-16.0) L* 09/03/18 16:17 Carboxyhemoglobin 1.7 % (0-4) 09/03/18 16:17 O2 Delivery Device None 09/03/18 16:17 Inspired O2 21 % 09/03/18 16:17 Critical Value Yes 09/03/18 16:17 Sodium 139 meq/L (136-145) 09/04/18 06:16 Potassium 5.1 meq/L (3.5-5.1) 09/04/18 06:16 Chloride 107 meq/L (98-107) 09/04/18 06:16 Carbon Dioxide 19.9 meq/L (21.0-32.0) L 09/04/18 06:16 Anion Gap 12 meq/L (5-15) 09/04/18 06:16 BUN 38 mg/dL (7-18) H 09/04/18 06:16 Creatinine 4.72 mg/dL (0.60-1.30) H 09/04/18 06:16 Estimated GFR 13 mL/min (>89) L 09/04/18 06:16 Random Glucose 111 mg/dL (74-106) H 09/04/18 06:16 Lactic Acid 1.9 mmol/L (0.4-2.0) 09/04/18 06:16 Calcium 7.7 mg/dL (8.5-10.1) L 09/04/18 06:16 Phosphorus 3.5 mg/dL (2.5-4.9) 09/04/18 06:16 Magnesium 1.9 mg/dL (1.5-2.5) 09/04/18 06:16 Total Bilirubin 0.4 mg/dL (0.2-1.0) 09/04/18 06:16 AST 657 U/L (15-37) H 09/04/18 06:16 ALT 111 U/L (12-78) H 09/04/18 06:16 Alkaline Phosphatase 1938 U/L (45-117) H 09/04/18 06:16 Total Creatine Kinase 328 U/L (39-308) H 09/03/18 12:30 CK-MB (CK-2) 11.7 ng/mL (0.5-3.6) H 09/03/18 12:30 CK-MB (CK-2) % 3.6 % (0.0-4.0) 09/03/18 12:30 Troponin I 36.60 ng/mL (0.02-0.05) H* 09/04/18 06:16 Total Protein 6.5 g/dL (6.4-8.2) D 09/04/18 06:16 Albumin 2.8 g/dL (3.4-5.0) L 09/04/18 06:16 Triglycerides 166 mg/dL (42-150) H 09/04/18 06:16 Cholesterol 107 mg/dL (120-200) L 09/04/18 06:16 LDL Cholesterol, Calc 40 mg/dL (0-99) 09/04/18 06:16 HDL Cholesterol 33.6 mg/dL (40.0-60.0) L 09/04/18 06:16 Cholesterol/HDL Ratio 3.18 Ratio 09/04/18 06:16 Nasal Screen MRSA (PCR) Not detected (Negative) 09/03/18 18:20 Blood Type O Negative 09/03/18 12:30 Blood Type Recheck Not needed 09/03/18 12:30 Antibody Screen Negative 09/03/18 12:30 MTS Gel Crossmatch See Detail 09/03/18 12:30 Impressions Chest X-Ray 09/03/18 12:05 CONCLUSION: Radiographic findings compatible with volume overload and pleural effusions. Pulmonary Perfusion Imaging 09/03/18 12:16 CONCLUSION: 1. No evidence for PE. Venous Doppler Study 09/03/18 12:16 CONCLUSION: 1. The study is negative for bilateral lower extremity deep venous thrombosis. Chest CT 09/03/18 14:44 CONCLUSION: 1. Widespread bony metastatic disease. 2. Moderate bilateral pleural effusions worse on the right. 3. Calcified left thyroid mass not changed since 2017. Objective Remarks: GENERAL: This is a well-developed, thin male patient appearance chronically ill , in no apparent distress. SKIN: Warm and dry. HEAD: Atraumatic. Normocephalic. EYES: Pupils equal and round. No scleral icterus. No injection or drainage. ENT: No nasal bleeding or discharge. Mucous membranes pink and moist. NECK: Trachea midline. No JVD. CARDIOVASCULAR: Normal rate, regular rhythm. RESPIRATORY: No accessory muscle use. Clear to auscultation. Breath sounds equal bilaterally. GASTROINTESTINAL: Abdomen soft, non-tender, nondistended. No guarding. MUSCULOSKELETAL: Extremities without clubbing, cyanosis, or edema. No obvious deformities. NEUROLOGICAL: GCS 15 awake and alert. RASS 0. No gross focal/sensory deficits. Follows commands in all 4 extremities. Assessment and Plan - Assessment and Plan Plan: 63yM presenting with type II NSTEMI secondary to acute blood loss anemia/ suspected recurrent lower GI bleed NEURO: Tobacco use disorder Chronic pain * Patient counseled on smoking cessation, nicotine patch ordered * Pain control as needed * Patient reports that he has 1 alcoholic drink each night, monitor for signs/ symptoms of withdrawal CARDIO: Type II NSTEMI Dyslipidemia * Secondary to acute anemia, see below * ASA only, heparin contraindicated in the setting of GI bleed * 2D echo ordered follow-up results * Trend troponins/ EKGs * Cardiology recommendations appreciated, patient may need diagnostic cardiac cath after colonoscopy * Patient may benefit from starting beta fab before discharge but will hold off for now in the setting of GI bleed RESP: Bilateral pleural effusions, right greater than left Dyspnea * Incentive spirometer * Nebs scheduled and PRN * Nicotine patch * CXR and V/Q scan negative for PE or PNA F/E/N, RENAL: Acute hyperkalemia End stage renal disease on hemodialysis * Patient's K+ 5.6 on presentation, no EKG changes, given kayexalate and bicarb by Dr. Roger * AM labs * HD tomorrow as per patient's normal schedule () * NPO in preparation for colonoscopy, no maintenance fluids HEME/ GI: Suspected recurrent GI bleed, likely lower Acute on chronic normocytic anemia secondary to blood loss * 2U PRBCs now * Check FOBT * Monitor H/H, previous records show baseline hemoglobin is around 8-9 (related to chronic kidney disease), will keep hemoglobin >8 in the setting of NSTEMI * Bilateral LE duplex negative for DVT * Colonoscopy tomorrow * GI recommendations appreciated * Continue serial H&H monitoring, use for hemoglobin less than 7 : History of metastatic prostate CA * Continue home Flomax * Hold bicalutamide for now ID: History of C diff colitis Lactic acidosis-resolved * Patient getting volume with PRBCs, does not require additional IV fluids for now * Trend lactic acid * Recheck stool C diff, continue home PO metronidazole * Patient given zosyn in ED, continue for now until blood cultures result; patient declined vancomycin * F/U blood cultures, increased risk for bacteremia as he has indwelling HD catheter PROPHY: * SCDs only, heparin contraindicated in the setting of acute blood loss anemia * Protonix BID in the setting of GIB My billing statement This patient remains critically ill with one or more organ systems which are or may become a threat to life. I have spent in excess of 35 minutes discontinuously in the care and management of this patient. This time is exclusive of procedures, and includes, but is not limited to, evaluation of the patient, review of the medical record, discussions with family, consultants, nursing staff, or respiratory therapy, and documentation in the medical record. OVERALL: This patient is critically ill with type II NSTEMI and acute blood loss anemia; he requires ICU level of care for resuscitation and close monitoring. The patient refused colonoscopy on his previous admission but wants to continue aggressive management/ full code. Will request palliative care consultation in AM; he may benefit from further discussions on goals of care given his multiple chronic and acute issues. Code Status: Full Discussed Condition With: Patient and POWER MANAGER at bedside.
--- NOTE | 2018-09-04 10:37 | P.CONPAL ---
Consult Service: Palliative Care Requesting Physician: Allyson Eason Reason for Consult: a. To assist with evaluation and management of symptoms including: dyspnea, pain. b. To assist medical decision maker(s) with: better understanding of current medical conditions; weighing benefits/burdens of medical treatment options; making medical treatment decisions. Primary Care Provider: No Primary Care Physician History of Present Illness History of Present Illness: Mr. 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 Fine urology) treated with Lupron and Casodex, end stage renal disease on hemodialysis (M-W-F), anemia, hypertension, kidney stones , recent GI bleed declined GI evaluation, C. Diff colitis was on several weeks of PO Flagyl. Patient presented to [facility] ER on 09/03/18 with several day report of dyspnea (at rest and on exertion) and palpitations. Intitial findings: * WBC 8.9, hemoglobin 6.2, hematocrit 19.8, platelets 159, neutrophils 75.6% * troponin 11.7, 13.30, 36.60 sequentially * total creatine kinase 328 * total protein 5.9, albumin 2.6. * sodium 138, BUN 27, creatinine 4.40, GFR 14, potassium 5.6 * Lactic acid 6.0 * nasal MRSA - negative * PT 21.5, INR 2.1, APTT 34.5 * T bili 0.3, AST 131, ALT 13, Alk phos 1529 * EKG - sinus rhythm, marked left axis deviation, left ventricular hypertrophy and ST-T changes * CXR - volume overload and pleural effusions. * Pulmonary perfusion scan - no evidence of PE. * Venous doppler US- negative for bilateral DVT. * CT chest - widespread bony metastatic disease, moderate bilateral pleural effusions worse on right, calcified left thyroid mass unchanged since 2017. Patient was admitted with anemia, GI bleed, NSTEMI. Cardiology, Dr. Garcia was consulted who recommended GI evaluation prior to consideration of cardiac catheterization. Dr. Garcia notes indicate patient with multiple acute on chronic problems with rather poor prognosis. Nephrology, Dr. Roger consulted for management of ESRD/HD. Upon review of records patient has elected to pursue aggressive treatment. Palliative care is consulted to assist with further clarification of goals of medical treatment. Patient has some insight to his prostate cancer, he did not know he has mets to bone. He is not sure the name of the "new chemo" they gave him after Lupron. He reports it "almost killed him and he will never do anymore treatment for the prostate cancer." Patient appears thin with significant muscle wasting. He tells me he is losing weight, 6 pounds, I suspect it is more than that over time. He knows why he came to the hospital (shortness of breath). He understands possible GI bleed, has agreed to GI evaluation and that he needs a cardiac catheterization, but I am not sure believes he has had an KS. He does report the Nitro "they" gave him weeks ago helped his heart. He wants to proceed with GI evaluation and cardiac catheterization. We have offered to assist in completion of written advance directives, he declines understanding the law would then dictate that his children would be asked to serve as Health Care Proxy decision makers. He tells us he would want his son, Juan Manuel and daughter, Christin to speak for him. He has another son, Mekhi who is non-verbal, has Down Syndrome, he is unable to participate in health care decision making. I offered to call his son and daughter, he does not want me to call them. Review of Systems Constitutional: Reports anorexia, Reports daytime sleepiness, Reports fatigue, Reports lack of energy, Reports weakness Ears, Nose, Mouth, and Throat: Reports dry mouth Cardiovascular: Reports chest pain, Reports shortness of breath with activity, Reports shortness of breath when lying down Respiratory: Reports shortness of breath, Reports shortness of breath with activity Gastrointestinal: Reports constipation Genitourinary: Reports other (decreased UOP, used to make more urine despite renal failure) Neurologic: Reports weakness Psychiatric: Reports anxiety Endocrine: Reports rapid, pounding, or irregular heartbeat Hematologic/Lymphatic: Reports easy bruising PMFSH - History History Provided By: Patient - Medical History Medical History: Medical History (Last Updated 09/04/18 @ 16:55 by Taryn Perera) AV fistula Acute renal failure Acute renal failure on dialysis Anemia Dyspnea Fistula Hypertension Kidney stone MDRO (multiple drug resistant organisms) resistance Onset Date: ~07/19/18 Prostate CA Sepsis Vascular dialysis catheter in place - Surgical History Surgical History: Surgical History (Last Updated 09/04/18 @ 16:55 by Taryn Perera) AV fistula H/O major orthopedic surgery - Family History Family History: Family History (Last Updated 09/04/18 @ 16:57 by Taryn Perera) Mother Pneumonia Father CVA (cerebral vascular accident) Grandparent Prostate cancer - Social History I have reviewed the patient's Social History: Yes - Tobacco History Second Hand Smoke Exposure: Yes Tobacco Use In Past 30 Days: Yes Smoking Status: Current every day smoker Tobacco Type: Cigarettes - Alcohol History How Often Do You Have a Drink Containing Alcohol: 2 to 3 times a week - Substance Use History Substance History: No History of Abuse - Travel History Recent Travel Out of the Country Within the Last 8 Weeks: No - Immunization History Tetanus Immunization: Unsure Medications and Allergies Active Medications: Active Medications Al Hydroxide/Mg Hydroxide (Milk Of Magnesia Liq) 30 ml PO Q12H PRN PRN Reason: Mild Constipation Albuterol (Albuterol Neb (Prn)) 2.5 mg NEB Q2HR NEB PRN PRN Reason: SHORTNESS OF BREATH Albuterol (Duoneb Neb (Nasreen)) 1 ampul NEB Q6HR NEB [facility] Last Admin: 09/04/18 09:01 Dose: 1 ampul Bisacodyl (Dulcolax Supp) 10 mg RECTAL DAILY PRN PRN Reason: SEVERE CONSITIPATION Chlorhexidine Gluconate (Chlorhexidine 2% Cloth) 3 pack TOPICAL DAILY@0400 [facility] Stop: 09/09/18 03:59 Last Admin: 09/04/18 05:20 Dose: 3 pack Chlorhexidine Gluconate (Chlorhexidine 2% Cloth) 3 pack TOPICAL DAILY@0400 PRN PRN Reason: Extra cloth needed Stop: 09/09/18 03:59 Piperacillin/Tazobactam/Dextrose (Zosyn 2.25 Gm Premix) 2.25 gm in 50 mls @ 100 mls/hr IV.SIG Q8H [facility] Last Infusion: 09/04/18 06:35 Dose: Infused Pantoprazole Sodium 80 mg/ (Sodium Chloride) 100 mls @ 10 mls/hr IV.CONT CONT [facility] Last Admin: 09/04/18 05:49 Dose: 10 mls/hr Lactulose (Lactulose Liq) 30 ml PO DAILY PRN PRN Reason: SEVERE CONSITIPATION Metronidazole (Flagyl) 500 mg PO Q8HR [facility] Last Admin: 09/04/18 05:16 Dose: 500 mg Nicotine (Habitrol 7 Mg Patch.24 Hr) 1 patch T-DERMAL DAILY [facility] Last Admin: 09/04/18 08:15 Dose: Not Given Oxycodone/Acetaminophen (Percocet 5/325 Mg) 1 tab PO Q6H PRN PRN Reason: PAIN SCALE 1 TO 10 Last Admin: 09/04/18 00:54 Dose: 1 tab Patch Removal (Remove Old Patch) 1 each T-DERMAL DAILY [facility] Last Admin: 09/04/18 08:16 Dose: Not Given Senna/Docusate Sodium (Negin-Colace) 1 tab PO BID [facility] Last Admin: 09/04/18 08:16 Dose: Not Given Sennosides (Senokot) 17.2 mg PO Q12H PRN PRN Reason: Moderate Constipation Sodium Chloride (Ns Flush) 2 ml IV.FLUSH PRN PRN PRN Reason: FLUSH AFTER USING IV ACCESS Sodium Chloride (Ns Flush) 2 ml IV.FLUSH BID [facility] Last Admin: 09/04/18 08:51 Dose: 2 ml Tamsulosin HCl (Flomax) 0.4 mg PO DAILY [facility] Last Admin: 09/04/18 08:50 Dose: 0.4 mg Allergies Allergy/AdvReac Type Severity Reaction Status Date / Time Tetanus Vaccines and Toxoid Allergy Severe Fever Verified 08/13/18 15:46 amoxicillin AdvReac Mild Nausea/Vomi Verified 08/13/18 15:46 ting Home Medications Medication Instructions Recorded Confirmed Type bicalutamide 50 mg PO HS 07/09/18 09/03/18 History tamsulosin [Flomax] 0.4 mg PO DAILY 07/09/18 09/03/18 History Advance Directives Living Will: No Healthcare Surrogate: No Health Care Surrogate Name and Number: HCP: sonJuan Manuel AND daughterChristin Power of Explosives Engineer: No Today's verbally stated goals: Patient desires continued aggressive care including FULL CODE, GI evaluation and heart catheterization. Family/friends goals: No family present. Patient did not want me to call his children. Ethical and Legal Issues: No written advance directives. According to [place] statutes, should the patient lose capacity, health care proxy decision making would fall to the majority of adult children. Physical Exam Vital Signs: Vital Signs - 24 hr 09/03/18 12:07 09/03/18 13:09 09/03/18 14:00 Temperature 98.8 F Pulse Rate 94 H 90 Respiratory Rate 22 20 Blood Pressure 106/63 107/62 Pulse Oximetry 98 100 98 09/03/18 18:00 09/03/18 20:00 09/03/18 21:05 Temperature 98.3 F 98.4 F 98.5 F Pulse Rate 84 76 82 Respiratory Rate 24 18 18 Blood Pressure 99/72 L 106/63 106/69 Pulse Oximetry 100 100 09/03/18 23:10 09/03/18 23:11 09/03/18 23:42 Temperature 98.2 F Pulse Rate 84 81 Respiratory Rate 20 18 Blood Pressure 118/72 Pulse Oximetry 100 99 09/03/18 23:44 09/04/18 00:00 09/04/18 01:24 Temperature 98.2 F 98.2 F Pulse Rate 81 84 Respiratory Rate 18 17 16 Blood Pressure 118/72 122/76 Pulse Oximetry 99 98 09/04/18 04:00 09/04/18 04:52 09/04/18 04:54 Temperature 98.3 F Pulse Rate 82 80 Respiratory Rate 16 21 Blood Pressure 125/70 Pulse Oximetry 98 96 09/04/18 09:01 Temperature Pulse Rate 81 Respiratory Rate 16 Blood Pressure Pulse Oximetry I&O: Intake & Output 09/02/18 09/03/18 09/04/18 09/05/18 06:59 06:59 06:59 06:59 Intake Total 650 / 650 Balance 650 / 650 Weight 79.379 kg Physical Exam: CONSTITUTIONAL/GENERAL: This is a thin, chronically ill appearing man, in no apparent distress. SKIN: No jaundice, rashes, or lesions. Ecchymoses on upper extremities. No wounds seen anteriorly. Skin temperature appropriate. Not diaphoretic. HEAD: Atraumatic. Normocephalic. EYES: Pupils equal and round and reactive. ENT: Hearing grossly normal. Nose without bleeding or purulent drainage. Throat without visible erythema, exudates, masses, or lesions. NECK: Trachea midline. CARDIOVASCULAR: Regular rate and rhythm without murmurs, gallops, or rubs. No JVD. Peripheral pulses symmetric. RESPIRATORY/CHEST: Symmetric, unlabored respirations. Clear to auscultation. Breath sounds equal bilaterally. No wheezes, rales, or rhonchi. GASTROINTESTINAL: Abdomen soft, non-tender, nondistended. No guarding. GENITOURINARY: Without palpable bladder distension. MUSCULOSKELETAL: Extremities without clubbing, cyanosis, or edema. Feet cool to touch. No calf tenderness. No mottling or clubbing. LYMPHATICS: No palpable cervical or supraclavicular adenopathy. NEUROLOGICAL: Awake and alert. Generalized weakness. Follows commands. PSYCHIATRIC: No obvious anxiety/depression. no apparent hallucinations or other psychotic thought process. Diagnostic Tests Laboratory: Laboratory Results - last 72 hr 09/03/18 09/03/18 09/03/18 12:30 12:30 12:30 CBC w Diff Slide review pending WBC 8.9 RBC 2.20 L Hgb 6.2 L* Hct 19.8 L* MCV 89.8 MCH 28.4 MCHC 31.6 L RDW 18.3 H Plt Count 159 MPV 7.8 Prelim Diff (Auto) Neut % (Auto) 75.6 H Lymph % (Auto) 17.8 Grundy % (Auto) 3.7 Eos % (Auto) 0.1 Baso % (Auto) 2.8 H Neut # (Auto) 6.8 Lymph # (Auto) 1.6 Grundy # (Auto) 0.3 Eos # (Auto) 0.0 Baso # (Auto) 0.2 WBC Differential . Diff Scan Auto diff confirmed Differential Comment . PT 21.5 H INR 2.1 APTT 34.5 H Puncture Site Patient Temperature O2 Saturation ABG pH ABG pCO2 ABG pO2 ABG HCO3 ABG O2 Content ABG Base Excess ABG Methemoglobin Brent Test Hemoglobin Carboxyhemoglobin O2 Delivery Device Inspired O2 Critical Value Sodium Potassium Chloride Carbon Dioxide Anion Gap BUN Creatinine Estimated GFR Random Glucose Lactic Acid Calcium Phosphorus Magnesium Total Bilirubin AST ALT Alkaline Phosphatase Total Creatine Kinase 328 H CK-MB (CK-2) 11.7 H CK-MB (CK-2) % 3.6 Troponin I 11.70 H* Total Protein Albumin Triglycerides Cholesterol LDL Cholesterol, Calc HDL Cholesterol Cholesterol/HDL Ratio Nasal Screen MRSA (PCR) Blood Type Blood Type Recheck Antibody Screen MTS Gel Crossmatch 09/03/18 09/03/18 09/03/18 12:30 12:30 12:30 CBC w Diff WBC RBC Hgb Hct MCV MCH MCHC RDW Plt Count MPV Prelim Diff (Auto) Neut % (Auto) Lymph % (Auto) Grundy % (Auto) Eos % (Auto) Baso % (Auto) Neut # (Auto) Lymph # (Auto) Grundy # (Auto) Eos # (Auto) Baso # (Auto) WBC Differential Diff Scan Differential Comment PT INR APTT Puncture Site Patient Temperature O2 Saturation ABG pH ABG pCO2 ABG pO2 ABG HCO3 ABG O2 Content ABG Base Excess ABG Methemoglobin Brent Test Hemoglobin Carboxyhemoglobin O2 Delivery Device Inspired O2 Critical Value Sodium 138 Potassium 5.6 H Chloride 106 Carbon Dioxide 16.5 L Anion Gap 16 H BUN 27 H Creatinine 4.40 H Estimated GFR 14 L Random Glucose 154 H Lactic Acid 6.0 H* Calcium 8.0 L Phosphorus Magnesium 1.9 Total Bilirubin 0.3 AST 131 H ALT 13 Alkaline Phosphatase 1529 H Total Creatine Kinase CK-MB (CK-2) CK-MB (CK-2) % Troponin I Total Protein 5.9 L Albumin 2.6 L Triglycerides Cholesterol LDL Cholesterol, Calc HDL Cholesterol Cholesterol/HDL Ratio Nasal Screen MRSA (PCR) Blood Type O Negative Blood Type Recheck Not needed Antibody Screen Negative MTS Gel Crossmatch 09/03/18 09/03/18 09/03/18 12:30 16:17 16:25 CBC w Diff WBC RBC Hgb Hct MCV MCH MCHC RDW Plt Count MPV Prelim Diff (Auto) Neut % (Auto) Lymph % (Auto) Grundy % (Auto) Eos % (Auto) Baso % (Auto) Neut # (Auto) Lymph # (Auto) Grundy # (Auto) Eos # (Auto) Baso # (Auto) WBC Differential Diff Scan Differential Comment PT INR APTT Puncture Site Right radial Patient Temperature 98.6 O2 Saturation 96 ABG pH 7.47 H ABG pCO2 23 L* ABG pO2 98 ABG HCO3 16 L* ABG O2 Content 8.5 L ABG Base Excess -6.7 L ABG Methemoglobin 1.3 Brent Test Present Hemoglobin 6.2 L* Carboxyhemoglobin 1.7 O2 Delivery Device None Inspired O2 21 Critical Value Yes Sodium Potassium Chloride Carbon Dioxide Anion Gap BUN Creatinine Estimated GFR Random Glucose Lactic Acid Calcium Phosphorus Magnesium Total Bilirubin AST ALT Alkaline Phosphatase Total Creatine Kinase CK-MB (CK-2) CK-MB (CK-2) % Troponin I 13.30 H* Total Protein Albumin Triglycerides Cholesterol LDL Cholesterol, Calc HDL Cholesterol Cholesterol/HDL Ratio Nasal Screen MRSA (PCR) Blood Type Blood Type Recheck Antibody Screen MTS Gel Crossmatch See Detail 09/03/18 09/03/18 09/04/18 16:25 18:20 06:16 CBC w Diff WBC RBC Hgb Hct MCV MCH MCHC RDW Plt Count MPV Prelim Diff (Auto) Neut % (Auto) Lymph % (Auto) Grundy % (Auto) Eos % (Auto) Baso % (Auto) Neut # (Auto) Lymph # (Auto) Grundy # (Auto) Eos # (Auto) Baso # (Auto) WBC Differential Diff Scan Differential Comment PT INR APTT Puncture Site Patient Temperature O2 Saturation ABG pH ABG pCO2 ABG pO2 ABG HCO3 ABG O2 Content ABG Base Excess ABG Methemoglobin Brent Test Hemoglobin Carboxyhemoglobin O2 Delivery Device Inspired O2 Critical Value Sodium Potassium Chloride Carbon Dioxide Anion Gap BUN Creatinine Estimated GFR Random Glucose Lactic Acid 5.0 H* 1.9 Calcium Phosphorus Magnesium Total Bilirubin AST ALT Alkaline Phosphatase Total Creatine Kinase CK-MB (CK-2) CK-MB (CK-2) % Troponin I Total Protein Albumin Triglycerides Cholesterol LDL Cholesterol, Calc HDL Cholesterol Cholesterol/HDL Ratio Nasal Screen MRSA (PCR) Not detected Blood Type Blood Type Recheck Antibody Screen MTS Gel Crossmatch 09/04/18 09/04/18 09/04/18 06:16 06:16 06:16 CBC w Diff WBC 8.6 RBC 3.14 L Hgb 9.6 L D Hct 28.1 L MCV 89.4 MCH 30.7 MCHC 34.3 RDW 19.1 H Plt Count 145 L MPV 7.7 Prelim Diff (Auto) Slide review pending Neut % (Auto) 65.1 Lymph % (Auto) 30.7 Grundy % (Auto) 3.8 Eos % (Auto) 0.2 Baso % (Auto) 0.2 Neut # (Auto) 5.6 Lymph # (Auto) 2.6 Grundy # (Auto) 0.3 Eos # (Auto) 0.0 Baso # (Auto) 0.0 WBC Differential Diff Scan Differential Comment . PT INR APTT Puncture Site Patient Temperature O2 Saturation ABG pH ABG pCO2 ABG pO2 ABG HCO3 ABG O2 Content ABG Base Excess ABG Methemoglobin Brent Test Hemoglobin Carboxyhemoglobin O2 Delivery Device Inspired O2 Critical Value Sodium 139 Potassium 5.1 Chloride 107 Carbon Dioxide 19.9 L Anion Gap 12 BUN 38 H Creatinine 4.72 H Estimated GFR 13 L Random Glucose 111 H Lactic Acid Calcium 7.7 L Phosphorus 3.5 Magnesium 1.9 Total Bilirubin 0.4 AST 657 H ALT 111 H Alkaline Phosphatase 1938 H Total Creatine Kinase CK-MB (CK-2) CK-MB (CK-2) % Troponin I 36.60 H* Total Protein 6.5 D Albumin 2.8 L Triglycerides 166 H Cholesterol 107 L LDL Cholesterol, Calc 40 HDL Cholesterol 33.6 L Cholesterol/HDL Ratio 3.18 Nasal Screen MRSA (PCR) Blood Type Blood Type Recheck Antibody Screen MTS Gel Crossmatch Result Diagrams: 09/04/18 12:44 09/04/18 06:16 Microbiology: Microbiology 09/03/18 12:30 Aerobic Blood Culture - Preliminary Blood - Peripheral No growth in 1 day Anaerobic Blood Culture - Preliminary No growth in 1 day 09/03/18 12:35 Aerobic Blood Culture - Preliminary Blood - Peripheral No growth in 1 day Anaerobic Blood Culture - Preliminary No growth in 1 day Imaging: Chest X-Ray 09/03/18 12:05 CONCLUSION: Radiographic findings compatible with volume overload and pleural effusions. Pulmonary Perfusion Imaging 09/03/18 12:16 CONCLUSION: 1. No evidence for PE. Venous Doppler Study 09/03/18 12:16 CONCLUSION: 1. The study is negative for bilateral lower extremity deep venous thrombosis. Chest CT 09/03/18 14:44 CONCLUSION: 1. Widespread bony metastatic disease. 2. Moderate bilateral pleural effusions worse on the right. 3. Calcified left thyroid mass not changed since 2017. Patient/Family Conference Present at Family Conference: Met with pt at bedside. Family Conference Time: 45 Family Conference Location: Bedside Issues Discussed: * Palliative care role, purpose, approach * Additional medical, psychosocial, and spiritual history * Patients general health, functional status, and cognitive changes in the months leading up to the current hospitalization * Patient/family understanding of the current medical problems * Patients goals of care as best understood from advance directives and/or conversations and/or values - refused completion of ADs * Current medical treatment options and benefits/burdens of those options * Questions answered to the best of my ability * Palliative care contact information provided Assessment and Plan - Disease Oriented Problem List (1) End stage renal disease (2) Prostate cancer metastatic to bone (3) GI (gastrointestinal bleed) (4) NSTEMI (non-ST elevated myocardial infarction) (5) Elevated troponin - Symptom Scale (1) Pain 0-10 Scale: 8 (2) Dyspnea 0-10 Scale: 0 Pertinent Non-Medical Issues: Psychosocial:. Retired. Has 1 son and 1 daughter. Spiritual:Unknown. Legal: No written advance directives. According to [place] statutes, should the patient lose capacity, health care proxy decision making would fall to the majority of adult children (he has 2 sons and 1 daughter). 1 son Mekhi has Down Syndrome and unable to participate. Ethical issues impacting care: No known concerns at this time. Important Contacts: * Juan Manuel Ross, son: [phone] * Christin Ely, daughter: [phone] Prognosis: Mr. Ross is a 63 year old male with multiple acute on chronic medical problems admitted with possible GI bleed, anemia, NSTEMI, overall prognosis is poor. Code Status: Full Code Plan: * No written advance directives. According to [place] statutes, should the patient lose capacity, health care proxy decision making would fall to the majority of adult children. He has 2 sons (Juan Manuel and Mekhi) and 1 daughter ( Christin). We have offered to assist in completion of written advance directives, he declines. He tells us he would want his son, Juan Manuel and daughter, Christin to speak for him. He has another son, Mekhi who is non-verbal, has Down Syndrome, he is unable to participate in health care decision making. * FULL CODE * Goals: Patient has some insight to his prostate cancer, he did not know he has mets to bone. He is not sure the name of the "new chemo" they gave him after Lupron. He reports it "almost killed him and he will never do anymore treatment for the prostate cancer." He understands possible GI bleed, has agreed to GI evaluation and that he needs a cardiac catheterization, but I am not sure he believes he has had an KS. He does report the Nitro "they" gave him weeks ago "helped his heart." He wants FULL CODe, he wishes to proceed with GI evaluation and cardiac catheterization. I offered to call his son and daughter, he does not want me to call them. * SYMPTOMS: shortness of breath: denies during my visit. pain: chest pain, has PRN Nitro. seems to have some chronic pain of left hip and knees, ? arthritis or bone mets, has PRN Percocet 5/325mg PO every 6 hours, has had 3 doses in the past 24 hours. Will monitor need and effect. He does not want me to make any medication adjustments at this time. * Palliative care number provided. * Palliative care will continue to follow to assist with symptom management and clarification of goals of medical treatment throughout hospital course. Appreciation Thank you for the opportunity to participate in the care of Madhu Ross. Attestation Attestation: To help prompt me to consider important information that might be impacting today's encounter and assessment, information from prior notes written by myself or my colleagues may have been "brought forward" into today's note. My signature on this note, however, is an attestation that I personally performed the exam, history, and/or decision-making noted today, and, unless otherwise indicated, the interactions with patient, family, and staff as well as the review of records all occurred today. I also attest that the listed assessment and stated plan reflect my best clinical judgment today based on the combination of historical information, prior notes, and today's exam/ interactions. When time spent is documented, it refers only to time spent today by the signer, or if indicated, combined time spent today by collaborating physician/nurse practitioner.
[2018-09-04 11:08] LABS: Lymphocytes 11 % (9-44); Metamyelocytes 1 % (0-1); Monocytes 4 % (0-8); Myelocytes 1 % (0-0); Tallied Nucleated RBC 1 (0-0)
[2018-09-04 11:09] LABS: Platelet Estimate Normal (Normal); Platelet Morphology Normal (Normal)
--- NOTE | 2018-09-04 11:10 | P.PNCA ---
Subjective Interval history: Pt feeling better this am; no cp Medications and Allergies Active Medications: Active Medications Al Hydroxide/Mg Hydroxide (Milk Of Magnesia Liq) 30 ml PO Q12H PRN PRN Reason: Mild Constipation Albuterol (Albuterol Neb (Prn)) 2.5 mg NEB Q2HR NEB PRN PRN Reason: SHORTNESS OF BREATH Albuterol (Duoneb Neb (Nasreen)) 1 ampul NEB Q6HR NEB [facility] Last Admin: 09/04/18 09:01 Dose: 1 ampul Bisacodyl (Dulcolax Supp) 10 mg RECTAL DAILY PRN PRN Reason: SEVERE CONSITIPATION Chlorhexidine Gluconate (Chlorhexidine 2% Cloth) 3 pack TOPICAL DAILY@0400 [facility] Stop: 09/09/18 03:59 Last Admin: 09/04/18 05:20 Dose: 3 pack Chlorhexidine Gluconate (Chlorhexidine 2% Cloth) 3 pack TOPICAL DAILY@0400 PRN PRN Reason: Extra cloth needed Stop: 09/09/18 03:59 Piperacillin/Tazobactam/Dextrose (Zosyn 2.25 Gm Premix) 2.25 gm in 50 mls @ 100 mls/hr IV.SIG Q8H [facility] Last Infusion: 09/04/18 06:35 Dose: Infused Pantoprazole Sodium 80 mg/ (Sodium Chloride) 100 mls @ 10 mls/hr IV.CONT CONT [facility] Last Admin: 09/04/18 05:49 Dose: 10 mls/hr Lactulose (Lactulose Liq) 30 ml PO DAILY PRN PRN Reason: SEVERE CONSITIPATION Metronidazole (Flagyl) 500 mg PO Q8HR [facility] Last Admin: 09/04/18 05:16 Dose: 500 mg Nicotine (Habitrol 7 Mg Patch.24 Hr) 1 patch T-DERMAL DAILY [facility] Last Admin: 09/04/18 08:15 Dose: Not Given Oxycodone/Acetaminophen (Percocet 5/325 Mg) 1 tab PO Q6H PRN PRN Reason: PAIN SCALE 1 TO 10 Last Admin: 09/04/18 00:54 Dose: 1 tab Patch Removal (Remove Old Patch) 1 each T-DERMAL DAILY [facility] Last Admin: 09/04/18 08:16 Dose: Not Given Senna/Docusate Sodium (Negin-Colace) 1 tab PO BID [facility] Last Admin: 09/04/18 08:16 Dose: Not Given Sennosides (Senokot) 17.2 mg PO Q12H PRN PRN Reason: Moderate Constipation Sodium Chloride (Ns Flush) 2 ml IV.FLUSH PRN PRN PRN Reason: FLUSH AFTER USING IV ACCESS Sodium Chloride (Ns Flush) 2 ml IV.FLUSH BID [facility] Last Admin: 09/04/18 08:51 Dose: 2 ml Tamsulosin HCl (Flomax) 0.4 mg PO DAILY [facility] Last Admin: 09/04/18 08:50 Dose: 0.4 mg Allergies Allergy/AdvReac Type Severity Reaction Status Date / Time Tetanus Vaccines and Toxoid Allergy Severe Fever Verified 08/13/18 15:46 amoxicillin AdvReac Mild Nausea/Vomi Verified 08/13/18 15:46 ting Home Medications Medication Instructions Recorded Confirmed Type bicalutamide 50 mg PO HS 07/09/18 09/03/18 History tamsulosin [Flomax] 0.4 mg PO DAILY 07/09/18 09/03/18 History Physical Exam Vital signs: Vital Signs 09/03/18 12:07 09/03/18 13:09 09/03/18 14:00 Temperature 98.8 F Pulse Rate 94 H 90 Respiratory Rate 22 20 Blood Pressure 106/63 107/62 Pulse Oximetry 98 100 98 09/03/18 18:00 09/03/18 20:00 09/03/18 21:05 Temperature 98.3 F 98.4 F 98.5 F Pulse Rate 84 76 82 Respiratory Rate 24 18 18 Blood Pressure 99/72 L 106/63 106/69 Pulse Oximetry 100 100 09/03/18 23:10 09/03/18 23:11 09/03/18 23:42 Temperature 98.2 F Pulse Rate 84 81 Respiratory Rate 20 18 Blood Pressure 118/72 Pulse Oximetry 100 99 09/03/18 23:44 09/04/18 00:00 09/04/18 01:24 Temperature 98.2 F 98.2 F Pulse Rate 81 84 Respiratory Rate 18 17 16 Blood Pressure 118/72 122/76 Pulse Oximetry 99 98 09/04/18 04:00 09/04/18 04:52 09/04/18 04:54 Temperature 98.3 F Pulse Rate 82 80 Respiratory Rate 16 21 Blood Pressure 125/70 Pulse Oximetry 98 96 09/04/18 08:00 09/04/18 09:01 Temperature 98.4 F Pulse Rate 83 81 Respiratory Rate 12 16 Blood Pressure 134/75 Pulse Oximetry 100 Intake & Output 09/03/18 09/04/18 09/04/18 18:59 06:59 18:59 Intake Total 50 / 50 600 / 600 Balance 50 / 50 600 / 600 Weight 79.379 kg Intake: IV 50 / 50 200 / 200 Protonix Inj 80 MG In NS Inj 100 / 100 100 ML @ 10 mls/hr IV.CONT CONT [facility] Rx#:[id number] Zosyn 2.25 GM Premix 2.25 gm In 100 / 100 50 ml @ 100 mls/hr IV.SIG Q8H [facility] Rx#:[id number] Zosyn 3.375 GM Premix 3.375 gm 50 / 50 In 50 ml @ 100 mls/hr IV.SIG ONCE ONE Rx#:[id number] Intake (Blood Product) Amt 400 / 400 Rbc As-3 Leukoreduced Unit 400 / 400 [id number] Rbc As-3 Leukoreduced Unit 0 / 0 [id number] Other: Date of Last Bowel Movement 09/03/18 09/03/18 09/03/18 - Constitutional no acute distress - Routine HEENT Exam Head: Present: normocephalic Eye: Present: EOMI ENT: Present: mucous membranes moist - Routine Neck Exam Absent: JVD - Routine Respiratory Exam Present: CTA bilaterally - Routine Cardiovascular Exam Present: RRR. Absent: murmur - Routine Abdominal Exam Present: soft - Routine Extremities Exam Absent: edema Results 09/04/18 06:16 09/04/18 06:16 Cardiac Enzymes 09/03/18 09/03/18 09/03/18 Range/Units 12:30 12:30 16:25 AST 131 H (15-37) U/L CK-MB (CK-2) 11.7 H (0.5-3.6) ng/mL Troponin I 11.70 H* 13.30 H* (0.02-0.05) ng/mL 09/04/18 Range/Units 06:16 AST 657 H (15-37) U/L CK-MB (CK-2) (0.5-3.6) ng/mL Troponin I 36.60 H* (0.02-0.05) ng/mL Coagulation 09/03/18 Range/Units 12:30 PT 21.5 H (9.8-11.6) sec APTT 34.5 H (23.4-31.7) sec Lipids 09/04/18 Range/Units 06:16 Triglycerides 166 H (42-150) mg/dL Cholesterol 107 L (120-200) mg/dL HDL Cholesterol 33.6 L (40.0-60.0) mg/dL Cholesterol/HDL Ratio 3.18 Ratio CBC 09/03/18 09/04/18 Range/Units 12:30 06:16 WBC 8.9 8.6 (4.0-11.0) th/mm3 RBC 2.20 L 3.14 L (4.50-5.90) mil/mm3 Hgb 6.2 L* 9.6 L D (13.0-17.0) gm/dL Hct 19.8 L* 28.1 L (39.0-51.0) % Plt Count 159 145 L (150-450) th/mm3 Neut # (Auto) 6.8 5.6 (1.8-7.7) th/mm3 Lymph # (Auto) 1.6 2.6 (1.0-4.8) th/mm3 Hartley # (Auto) 0.3 0.3 (0.0-0.9) th/mm3 Eos # (Auto) 0.0 0.0 (0.0-0.4) th/mm3 Baso # (Auto) 0.2 0.0 (0.0-0.2) th/mm3 Comprehensive Metabolic Panel 09/03/18 09/04/18 Range/Units 12:30 06:16 Sodium 138 139 (136-145) meq/L Potassium 5.6 H 5.1 (3.5-5.1) meq/L Chloride 106 107 (98-107) meq/L Carbon Dioxide 16.5 L 19.9 L (21.0-32.0) meq/L BUN 27 H 38 H (7-18) mg/dL Creatinine 4.40 H 4.72 H (0.60-1.30) mg/dL Calcium 8.0 L 7.7 L (8.5-10.1) mg/dL AST 131 H 657 H (15-37) U/L ALT 13 111 H (12-78) U/L Alkaline Phosphatase 1529 H 1938 H (45-117) U/L Total Protein 5.9 L 6.5 D (6.4-8.2) g/dL Albumin 2.6 L 2.8 L (3.4-5.0) g/dL Intake and Output 09/03/18 09/04/18 09/04/18 22:59 06:59 14:59 Intake Total 0 / 0 600 / 600 Balance 0 / 0 600 / 600 Intake: IV 200 / 200 Protonix Inj 80 MG In NS Inj 100 / 100 100 ML @ 10 mls/hr IV.CONT CONT [facility] Rx#:[id number] Zosyn 2.25 GM Premix 2.25 gm In 100 / 100 50 ml @ 100 mls/hr IV.SIG Q8H [facility] Rx#:[id number] Intake (Blood Product) Amt 0 / 0 400 / 400 Rbc As-3 Leukoreduced Unit 0 / 0 400 / 400 [id number] Rbc As-3 Leukoreduced Unit 0 / 0 [id number] Other: Date of Last Bowel Movement 09/03/18 09/03/18 09/03/18 - Imaging and Cardiology Imaging: Impressions Chest X-Ray 09/03/18 12:05 CONCLUSION: Radiographic findings compatible with volume overload and pleural effusions. Pulmonary Perfusion Imaging 09/03/18 12:16 CONCLUSION: 1. No evidence for PE. Venous Doppler Study 09/03/18 12:16 CONCLUSION: 1. The study is negative for bilateral lower extremity deep venous thrombosis. Chest CT 09/03/18 14:44 CONCLUSION: 1. Widespread bony metastatic disease. 2. Moderate bilateral pleural effusions worse on the right. 3. Calcified left thyroid mass not changed since 2017. Assessment and Plan - Assessment (1) Elevated troponin Code(s): R74.8 - Abnormal levels of other serum enzymes Status: Acute Plan: as detailed in my note yesterday, likely has underlying cad though unclear if truly nstemi vs symptomatic anemia (2) GI (gastrointestinal bleed) Code(s): K92.2 - Gastrointestinal hemorrhage, unspecified Status: Acute Plan: ok for colonoscopy/egd (noting somewhat higher risk due to potential cardiac ischemia); cath would likely require anticoagulation so need to make sure no active bleeding prior. (3) Anemia Code(s): D64.9 - Anemia, unspecified Status: Acute (4) NSTEMI (non-ST elevated myocardial infarction) Code(s): I21.4 - Non-ST elevation (NSTEMI) myocardial infarction Status: Acute Plan: for now asa held due to gi bleed; statin held due to elevated LFTs; added bb. (5) End stage renal disease Code(s): N18.6 - End stage renal disease Status: Chronic - Plan Getting HD (3) Anemia Qualifiers: Anemia type: due to chronic kidney disease Chronic kidney disease stage: on chronic dialysis Qualified Code(s): N18.6 - End stage renal disease; D63.1 - Anemia in chronic kidney disease; Z99.2 - Dependence on renal dialysis
[2018-09-04] MEDS ORDERED: Albumin Human 25% Inj 100 ML IV.SIG PRN (11:44)
[2018-09-04] MEDS ORDERED: Gelatin 12 MM/7 MM Topical Foam TOPICAL PRN (11:44)
[2018-09-04] MEDS ORDERED: Heparin 10,000 UNITS/10 ML Vial (for IV use) OTHER PRN (11:44)
[2018-09-04] MEDS ORDERED: Sod Chloride 0.9% Inj 1,000 ML IV.CONT PRN (11:44)
[2018-09-04] MEDS ORDERED: Acetaminophen 325 MG Tablet PO PRN (11:44)
[2018-09-04] MEDS ORDERED: Sod Chloride 0.9% Inj 1,000 ML OTHER PRN ×2 (11:44)
--- NOTE | 2018-09-04 11:49 | P.PNNP ---
Subjective Interval history: Patient is seen during dialysis complaining of left hip pain and knee pain Physical Exam Vital signs: Vital Signs 09/03/18 12:07 09/03/18 13:09 09/03/18 14:00 Temperature 98.8 F Pulse Rate 94 H 90 Respiratory Rate 22 20 Blood Pressure 106/63 107/62 Pulse Oximetry 98 100 98 09/03/18 18:00 09/03/18 20:00 09/03/18 21:05 Temperature 98.3 F 98.4 F 98.5 F Pulse Rate 84 76 82 Respiratory Rate 24 18 18 Blood Pressure 99/72 L 106/63 106/69 Pulse Oximetry 100 100 09/03/18 23:10 09/03/18 23:11 09/03/18 23:42 Temperature 98.2 F Pulse Rate 84 81 Respiratory Rate 20 18 Blood Pressure 118/72 Pulse Oximetry 100 99 09/03/18 23:44 09/04/18 00:00 09/04/18 01:24 Temperature 98.2 F 98.2 F Pulse Rate 81 84 Respiratory Rate 18 17 16 Blood Pressure 118/72 122/76 Pulse Oximetry 99 98 09/04/18 04:00 09/04/18 04:52 09/04/18 04:54 Temperature 98.3 F Pulse Rate 82 80 Respiratory Rate 16 21 Blood Pressure 125/70 Pulse Oximetry 98 96 09/04/18 08:00 09/04/18 09:01 Temperature 98.4 F Pulse Rate 83 81 Respiratory Rate 12 16 Blood Pressure 134/75 Pulse Oximetry 100 Intake & Output 09/03/18 09/04/18 09/04/18 18:59 06:59 18:59 Intake Total 50 / 50 600 / 600 Balance 50 / 50 600 / 600 Weight 79.379 kg Intake: IV 50 / 50 200 / 200 Protonix Inj 80 MG In NS Inj 100 / 100 100 ML @ 10 mls/hr IV.CONT CONT [facility] Rx#:[id number] Zosyn 2.25 GM Premix 2.25 gm In 100 / 100 50 ml @ 100 mls/hr IV.SIG Q8H [facility] Rx#:[id number] Zosyn 3.375 GM Premix 3.375 gm 50 / 50 In 50 ml @ 100 mls/hr IV.SIG ONCE ONE Rx#:[id number] Intake (Blood Product) Amt 400 / 400 Rbc As-3 Leukoreduced Unit 400 / 400 [id number] Rbc As-3 Leukoreduced Unit 0 / 0 [id number] Other: Date of Last Bowel Movement 09/03/18 09/03/18 09/03/18 Narrative: GENERAL: Well-nourished, well-developed patient who has pain in the left hip. SKIN: Warm and dry. HEAD: Normocephalic. EYES: No scleral icterus. No injection or drainage. NECK: Supple, trachea midline. No JVD or lymphadenopathy. CARDIOVASCULAR: Regular rate and rhythm without murmurs, gallops, or rubs. RESPIRATORY: Breath sounds equal bilaterally. No accessory muscle use. GASTROINTESTINAL: Abdomen soft, non-tender, nondistended. EXTREMITIES: Muscle wasting present NEUROLOGICAL: Awake, alert, and oriented x 3. Non-focal. Assessment and Plan - Assessment (1) End stage renal disease Code(s): N18.6 - End stage renal disease Status: Chronic (2) Anemia Code(s): D64.9 - Anemia, unspecified Status: Acute Qualifiers: Anemia type: due to chronic kidney disease Chronic kidney disease stage: on chronic dialysis Qualified Code(s): N18.6 - End stage renal disease; D63.1 - Anemia in chronic kidney disease; Z99.2 - Dependence on renal dialysis (3) Joint pain Code(s): M25.50 - Pain in unspecified joint Status: Acute Qualifiers: Joint pain location: hip Laterality: left Qualified Code(s): M25.552 - Pain in left hip (4) Dyspnea Code(s): R06.00 - Dyspnea, unspecified Status: Acute Qualifiers: Dyspnea type: shortness of breath Qualified Code(s): R06.02 - Shortness of breath; R06.00 - Dyspnea, unspecified; R06.01 - Orthopnea (5) Prostate cancer metastatic to bone Code(s): C61 - Malignant neoplasm of prostate; C79.51 - Secondary malignant neoplasm of bone Status: Chronic - Plan Patient seen during hemodialysis 2 L as tolerated Procrit ordered Poor prognosis As advanced metastatic prostate cancer Pain likely related to underlying cancer although he said oncologist did not find cancer on the left hip His PSA was 190 in Jun 2018
--- NOTE | 2018-09-04 12:17 | ECG ---
Date Performed: 09/03/2018 Time Performed: 12:04:59 PTAGE: 63 years EKG: Sinus rhythm MARKED LEFT AXIS DEVIATION LEFT VENTRICULAR HYPERTROPHY AND ST-T CHANGE ABNORMAL ECG Since the PREVIOUS TRACING , no significant change noted PREVIOUS TRACIN08/14/2018 04.03 DOCTOR: Raffi Garcia Interpretating Date/Time 09/04/2018 12:16:15
[2018-09-04] MEDS: Heparin 10,000 UNITS/10 ML Vial (for IV use) OTHER PRN (12:51)
[2018-09-04 13:20] LABS: Hemoglobin 8.4 gm/dL (13.0-17.0)
[2018-09-04 13:48] LABS: Creatine Kinase 581 U/L (39-308)
[2018-09-04 14:05] LABS: Creatine Kinase MB 30.9 ng/mL (0.5-3.6)
[2018-09-04 14:18] LABS: CKMB Percent 5.3 % (0.0-4.0)
--- NOTE | 2018-09-04 17:41 | P.CONGI ---
History of Present Illness Consult date: 09/04/18 Consult reason: Anemia with GI bleed Chief complaint: Symptomatic anemia, NSTEMI, lactic acidosis History of Present Illness: This patient is a pleasant 63-year-old male with past medical history significant for end-stage renal disease, metastatic prostate cancer, anemia, hypertension. Surgical history significant for orthopedic surgery and placement of AV fistula. Patient presented to [facility] in [place] with report of shortness of breath on exertion and chest pain for 3 days. Upon admission, patient was noted to have a hemoglobin 6.2 hematocrit 19.8 lactic acid 5.0 troponin 13.3. Patient was transferred to [facility] in [place] for further evaluation. Patient denies abdominal pain, nausea or vomiting. Denies diarrhea or constipation. Patient denies any noted bleeding in stools. Patient denies difficulty swallowing or odynophagia. Denies any history of EGD or colonoscopy in the past. Our service has been consulted to evaluate patient for anemia, GI bleed. <Nancy Patterson - Last Filed: 09/04/18 17:26> Review of Systems All other systems reviewed negative except as stated in HPI <Nancy Patterson - Last Filed: 09/04/18 17:26> PMFSH - History History Provided By: Patient - Medical History Medical History: Medical History (Last Updated 09/04/18 @ 16:55 by Taryn Perera) Acute renal failure Acute renal failure on dialysis Anemia Dyspnea Fistula Hypertension Kidney stone MDRO (multiple drug resistant organisms) resistance Onset Date: ~07/19/18 Prostate CA Sepsis Vascular dialysis catheter in place - Surgical History Surgical History: Surgical History (Last Updated 09/04/18 @ 16:55 by Taryn Perera) AV fistula H/O major orthopedic surgery - Family History Family History: Family History (Last Updated 09/04/18 @ 16:57 by Taryn Perera) Mother Pneumonia Father CVA (cerebral vascular accident) Grandparent Prostate cancer - Tobacco History Second Hand Smoke Exposure: Yes Tobacco Use In Past 30 Days: Yes Smoking Status: Current every day smoker Tobacco Type: Cigarettes - Alcohol History How Often Do You Have a Drink Containing Alcohol: 2 to 3 times a week - Substance Use History Substance History: No History of Abuse - Travel History Recent Travel Out of the Country Within the Last 8 Weeks: No - Immunization History Tetanus Immunization: Unsure <Nancy Patterson - Last Filed: 09/04/18 17:26> - Medical History Medical History: Medical History (Last Updated 09/04/18 @ 16:55 by Taryn Perera) Acute renal failure Acute renal failure on dialysis Anemia Dyspnea Fistula Hypertension Kidney stone MDRO (multiple drug resistant organisms) resistance Onset Date: ~07/19/18 Prostate CA Sepsis Vascular dialysis catheter in place - Surgical History Surgical History: Surgical History (Last Updated 09/04/18 @ 16:55 by Taryn Perera) AV fistula H/O major orthopedic surgery - Family History Family History: Family History (Last Updated 09/04/18 @ 16:57 by Taryn Perera) Mother Pneumonia Father CVA (cerebral vascular accident) Grandparent Prostate cancer <Samson Colon - Last Filed: 09/05/18 09:14> Medications and Allergies Active Medications: Active Medications Acetaminophen (Tylenol) 650 mg PO UNSCH PRN PRN Reason: SEE LABEL COMMENTS Al Hydroxide/Mg Hydroxide (Milk Of Yaritza Conde) 30 ml PO Q12H PRN PRN Reason: Mild Constipation Albuterol (Albuterol Neb (Prn)) 2.5 mg NEB Q2HR NEB PRN PRN Reason: SHORTNESS OF BREATH Albuterol (Duoneb Neb (Nasreen)) 1 ampul NEB Q6HR NEB [facility] Last Admin: 09/04/18 09:01 Dose: 1 ampul Bisacodyl (Dulcolax Supp) 10 mg RECTAL DAILY PRN PRN Reason: SEVERE CONSITIPATION Chlorhexidine Gluconate (Chlorhexidine 2% Cloth) 3 pack TOPICAL DAILY@0400 [facility] Stop: 09/09/18 03:59 Last Admin: 09/04/18 05:20 Dose: 3 pack Chlorhexidine Gluconate (Chlorhexidine 2% Cloth) 3 pack TOPICAL DAILY@0400 PRN PRN Reason: Extra cloth needed Stop: 09/09/18 03:59 Clonidine HCl (Catapres) 0.1 mg PO UNSCH PRN PRN Reason: SEE LABEL COMMENTS Diphenhydramine HCl (Benadryl) 25 mg PO UNSCH PRN PRN Reason: SEE LABEL COMMENTS Epoetin Hermes (Epogen Inj) 10,000 unit IV.PUSH UNSCH PRN PRN Reason: SEE LABEL COMMENTS Gelatin (Gelfoam 12 Mm/7 Mm Topical) 1 foam TOPICAL PRN PRN PRN Reason: help stop bleeding from site Gentamicin Sulfate (Gentamicin Inj) 20 mg OTHER WITH DIALYSIS PRN PRN Reason: Dwell Gentamycin Lock Last Admin: 09/04/18 12:51 Dose: 20 mg Heparin Sodium (Porcine) (Heparin Inj) 8,000 units OTHER WITH DIALYSIS PRN PRN Reason: for machine prime Heparin Sodium (Porcine) (Heparin Inj) 1,000 units OTHER WITH DIALYSIS PRN PRN Reason: Dwell Heparin to Fill Catheter Last Admin: 09/04/18 12:51 Dose: 1,000 units Piperacillin/Tazobactam/Dextrose (Zosyn 2.25 Gm Premix) 2.25 gm in 50 mls @ 100 mls/hr IV.SIG Q8H [facility] Last Infusion: 09/04/18 15:22 Dose: Infused Pantoprazole Sodium 80 mg/ (Sodium Chloride) 100 mls @ 10 mls/hr IV.CONT CONT [facility] Last Admin: 09/04/18 15:08 Dose: 10 mls/hr Albumin Human (Flexbumin 25% Inj) 100 mls @ 60 mls/hr IV.SIG WITH DIALYSIS PRN PRN Reason: hypotension / volume replace Sodium Chloride (Ns Inj) 1,000 mls @ 0 mls/hr OTHER .Q0M PRN PRN Reason: for prime and rinse back Sodium Chloride (Ns Inj) 1,000 mls @ 0 mls/hr IV.CONT .Q0M PRN PRN Reason: hypotension / volume replace Sodium Chloride (Ns Inj) 1,000 mls @ 200 mls/hr OTHER .Q5H PRN PRN Reason: for dialyzer flush PRN Lactulose (Lactulose Liq) 30 ml PO DAILY PRN PRN Reason: SEVERE CONSITIPATION Mannitol (Mannitol Inj) 12.5 gm IV.PUSH UNSCH PRN PRN Reason: hypotension / volume replace Metoprolol Tartrate (Lopressor) 12.5 mg PO BID [facility] Metronidazole (Flagyl) 500 mg PO Q8HR [facility] Last Admin: 09/04/18 13:44 Dose: 500 mg Nicotine (Habitrol 7 Mg Patch.24 Hr) 1 patch T-DERMAL DAILY [facility] Last Admin: 09/04/18 08:15 Dose: Not Given Nitroglycerin (Nitrostat Sl) 0.4 mg SL Q5M PRN PRN Reason: CHEST PAIN Ondansetron HCl (Zofran Inj) 4 mg IV.PUSH UNSCH PRN PRN Reason: NAUSEA OR VOMITING Oxycodone/Acetaminophen (Percocet 5/325 Mg) 1 tab PO Q6H PRN PRN Reason: PAIN SCALE 1 TO 10 Last Admin: 09/04/18 14:37 Dose: 1 tab Patch Removal (Remove Old Patch) 1 each T-DERMAL DAILY [facility] Last Admin: 09/04/18 08:16 Dose: Not Given Senna/Docusate Sodium (Negin-Colace) 1 tab PO BID [facility] Last Admin: 09/04/18 08:16 Dose: Not Given Sennosides (Senokot) 17.2 mg PO Q12H PRN PRN Reason: Moderate Constipation Sodium Chloride (Ns Flush) 2 ml IV.FLUSH PRN PRN PRN Reason: FLUSH AFTER USING IV ACCESS Sodium Chloride (Ns Flush) 2 ml IV.FLUSH BID [facility] Last Admin: 09/04/18 08:51 Dose: 2 ml Sodium Chloride (Ns Flush) 5 ml IV.FLUSH PRN PRN PRN Reason: flush each lumen during HD Tamsulosin HCl (Flomax) 0.4 mg PO DAILY [facility] Last Admin: 09/04/18 08:50 Dose: 0.4 mg <Nancy Patterson - Last Filed: 09/04/18 17:26> Active Medications: Active Medications Acetaminophen (Tylenol) 650 mg PO UNSCH PRN PRN Reason: SEE LABEL COMMENTS Al Hydroxide/Mg Hydroxide (Milk Of Yaritza Liq) 30 ml PO Q12H PRN PRN Reason: Mild Constipation Albuterol (Albuterol Neb (Prn)) 2.5 mg NEB Q2HR NEB PRN PRN Reason: SHORTNESS OF BREATH Albuterol (Duoneb Neb ([facility])) 1 ampul NEB Q6HR NEB [facility] Last Admin: 09/05/18 07:53 Dose: Not Given Bisacodyl (Dulcolax Supp) 10 mg RECTAL DAILY PRN PRN Reason: SEVERE CONSITIPATION Chlorhexidine Gluconate (Chlorhexidine 2% Cloth) 3 pack TOPICAL DAILY@0400 [facility] Stop: 09/09/18 03:59 Last Admin: 09/05/18 07:54 Dose: Not Given Chlorhexidine Gluconate (Chlorhexidine 2% Cloth) 3 pack TOPICAL DAILY@0400 PRN PRN Reason: Extra cloth needed Stop: 09/09/18 03:59 Clonidine HCl (Catapres) 0.1 mg PO UNSCH PRN PRN Reason: SEE LABEL COMMENTS Diphenhydramine HCl (Benadryl) 25 mg PO UNSCH PRN PRN Reason: SEE LABEL COMMENTS Epoetin Hermes (Epogen Inj) 10,000 unit IV.PUSH UNSCH PRN PRN Reason: SEE LABEL COMMENTS Gelatin (Gelfoam 12 Mm/7 Mm Topical) 1 foam TOPICAL PRN PRN PRN Reason: help stop bleeding from site Gentamicin Sulfate (Gentamicin Inj) 20 mg OTHER WITH DIALYSIS PRN PRN Reason: Dwell Gentamycin Lock Last Admin: 09/04/18 12:51 Dose: 20 mg Heparin Sodium (Porcine) (Heparin Inj) 8,000 units OTHER WITH DIALYSIS PRN PRN Reason: for machine prime Heparin Sodium (Porcine) (Heparin Inj) 1,000 units OTHER WITH DIALYSIS PRN PRN Reason: Dwell Heparin to Fill Catheter Last Admin: 09/04/18 12:51 Dose: 1,000 units Piperacillin/Tazobactam/Dextrose (Zosyn 2.25 Gm Premix) 2.25 gm in 50 mls @ 100 mls/hr IV.SIG Q8H [facility] Last Admin: 09/05/18 05:49 Dose: 100 mls/hr Pantoprazole Sodium 80 mg/ (Sodium Chloride) 100 mls @ 10 mls/hr IV.CONT CONT [facility] Last Admin: 09/05/18 01:10 Dose: 10 mls/hr Albumin Human (Flexbumin 25% Inj) 100 mls @ 60 mls/hr IV.SIG WITH DIALYSIS PRN PRN Reason: hypotension / volume replace Sodium Chloride (Ns Inj) 1,000 mls @ 0 mls/hr OTHER .Q0M PRN PRN Reason: for prime and rinse back Sodium Chloride (Ns Inj) 1,000 mls @ 0 mls/hr IV.CONT .Q0M PRN PRN Reason: hypotension / volume replace Sodium Chloride (Ns Inj) 1,000 mls @ 200 mls/hr OTHER .Q5H PRN PRN Reason: for dialyzer flush PRN Lactulose (Lactulose Liq) 30 ml PO DAILY PRN PRN Reason: SEVERE CONSITIPATION Mannitol (Mannitol Inj) 12.5 gm IV.PUSH UNSCH PRN PRN Reason: hypotension / volume replace Metoprolol Tartrate (Lopressor) 12.5 mg PO BID [facility] Last Admin: 09/05/18 05:05 Dose: Not Given Metronidazole (Flagyl) 500 mg PO Q8HR [facility] Last Admin: 09/05/18 05:49 Dose: 500 mg Nicotine (Habitrol 7 Mg Patch.24 Hr) 1 patch T-DERMAL DAILY [facility] Last Admin: 09/04/18 08:15 Dose: Not Given Nitroglycerin (Nitrostat Sl) 0.4 mg SL Q5M PRN PRN Reason: CHEST PAIN Ondansetron HCl (Zofran Inj) 4 mg IV.PUSH UNSCH PRN PRN Reason: NAUSEA OR VOMITING Oxycodone/Acetaminophen (Percocet 5/325 Mg) 1 tab PO Q6H PRN PRN Reason: PAIN SCALE 1 TO 10 Last Admin: 09/04/18 21:54 Dose: 1 tab Patch Removal (Remove Old Patch) 1 each T-DERMAL DAILY [facility] Last Admin: 09/04/18 08:16 Dose: Not Given Senna/Docusate Sodium (Negin-Colace) 1 tab PO BID [facility] Last Admin: 09/04/18 21:31 Dose: Not Given Sennosides (Senokot) 17.2 mg PO Q12H PRN PRN Reason: Moderate Constipation Sodium Chloride (Ns Flush) 2 ml IV.FLUSH PRN PRN PRN Reason: FLUSH AFTER USING IV ACCESS Sodium Chloride (Ns Flush) 2 ml IV.FLUSH BID [facility] Last Admin: 09/05/18 03:45 Dose: Not Given Sodium Chloride (Ns Flush) 5 ml IV.FLUSH PRN PRN PRN Reason: flush each lumen during HD Tamsulosin HCl (Flomax) 0.4 mg PO DAILY [facility] Last Admin: 09/04/18 08:50 Dose: 0.4 mg <Samson Colon - Last Filed: 09/05/18 09:14> Allergies Allergy/AdvReac Type Severity Reaction Status Date / Time Tetanus Vaccines and Toxoid Allergy Severe Fever Verified 08/13/18 15:46 amoxicillin AdvReac Mild Nausea/Vomi Verified 08/13/18 15:46 ting Home Medications Medication Instructions Recorded Confirmed Type bicalutamide 50 mg PO HS 07/09/18 09/03/18 History tamsulosin [Flomax] 0.4 mg PO DAILY 07/09/18 09/03/18 History Exam Vital signs: Vital Signs 09/03/18 18:00 09/03/18 20:00 09/03/18 21:05 Temperature 98.3 F 98.4 F 98.5 F Pulse Rate 84 76 82 Respiratory Rate 24 18 18 Blood Pressure 99/72 L 106/63 106/69 Pulse Oximetry 100 100 09/03/18 23:10 09/03/18 23:11 09/03/18 23:42 Temperature 98.2 F Pulse Rate 84 81 Respiratory Rate 20 18 Blood Pressure 118/72 Pulse Oximetry 100 99 09/03/18 23:44 09/04/18 00:00 09/04/18 01:24 Temperature 98.2 F 98.2 F Pulse Rate 81 84 Respiratory Rate 18 17 16 Blood Pressure 118/72 122/76 Pulse Oximetry 99 98 09/04/18 04:00 09/04/18 04:52 09/04/18 04:54 Temperature 98.3 F Pulse Rate 82 80 Respiratory Rate 16 21 Blood Pressure 125/70 Pulse Oximetry 98 96 09/04/18 08:00 09/04/18 09:01 09/04/18 12:00 Temperature 98.4 F Pulse Rate 83 81 Respiratory Rate 12 16 20 Blood Pressure 134/75 Pulse Oximetry 100 09/04/18 12:01 09/04/18 16:00 09/04/18 16:30 Temperature 98.4 F 98.2 F Pulse Rate 95 H 78 78 Respiratory Rate 16 16 18 Blood Pressure 141/75 H 123/56 L Pulse Oximetry 99 97 Intake & Output 09/03/18 09/04/18 09/04/18 18:59 06:59 18:59 Intake Total 50 / 50 600 / 600 150 / 150 Output Total 1999 Balance 50 / 50 600 / 600 -1850 / -1850 Weight 79.379 kg Intake: IV 50 / 50 200 / 200 150 / 150 Protonix Inj 80 MG In NS Inj 100 / 100 100 / 100 100 ML @ 10 mls/hr IV.CONT CONT [facility] Rx#:[id number] Zosyn 2.25 GM Premix 2.25 gm In 100 / 100 50 / 50 50 ml @ 100 mls/hr IV.SIG Q8H [facility] Rx#:[id number] Zosyn 3.375 GM Premix 3.375 gm 50 / 50 In 50 ml @ 100 mls/hr IV.SIG ONCE ONE Rx#:[id number] Intake (Blood Product) Amt 400 / 400 Rbc As-3 Leukoreduced Unit 400 / 400 [id number] Rbc As-3 Leukoreduced Unit 0 / 0 [id number] Output: Hemodialysis Amount 1999 Other: Date of Last Bowel Movement 09/03/18 09/03/18 09/03/18 - Constitutional thin, chronically ill appearing - Routine HEENT Exam Head: Present: normocephalic ENT: Present: mucous membranes moist - Routine Respiratory Exam Present: CTA bilaterally. Absent: accessory muscle use - Routine Cardiovascular Exam Present: RRR, S1, S2 - Routine Abdominal Exam Present: soft, normoactive bowel sounds. Absent: tenderness, distended, guarding, firm - Routine Extremities Exam Absent: edema - Routine Skin Exam Present: dry, warm - Routine Neurological Exam Present: alert <Patterson,Nancy - Last Filed: 09/04/18 17:26> Vital signs: Vital Signs 09/04/18 12:00 09/04/18 12:01 09/04/18 16:00 Temperature 98.4 F 98.2 F Pulse Rate 95 H 78 Respiratory Rate 20 16 16 Blood Pressure 141/75 H 123/56 L Pulse Oximetry 99 97 09/04/18 16:30 09/04/18 17:00 09/04/18 18:00 Temperature Pulse Rate 78 83 80 Respiratory Rate 18 Blood Pressure 113/59 L 135/63 Pulse Oximetry 95 98 09/04/18 19:00 09/04/18 20:00 09/04/18 20:36 Temperature 98.7 F Pulse Rate 78 75 80 Respiratory Rate 21 Blood Pressure 114/56 L 111/58 L Pulse Oximetry 99 96 09/04/18 20:38 09/04/18 20:39 09/04/18 21:00 Temperature Pulse Rate 82 Respiratory Rate Blood Pressure 115/64 Pulse Oximetry 99 99 97 09/04/18 22:00 09/04/18 23:00 09/05/18 00:00 Temperature 98.6 F Pulse Rate 81 75 70 Respiratory Rate Blood Pressure 120/68 115/59 L 109/58 L Pulse Oximetry 100 98 98 09/05/18 01:00 09/05/18 02:00 09/05/18 03:00 Temperature Pulse Rate 77 76 74 Respiratory Rate Blood Pressure 122/57 L 121/65 116/56 L Pulse Oximetry 99 99 97 09/05/18 04:00 09/05/18 04:54 09/05/18 04:56 Temperature 98.5 F Pulse Rate 75 75 Respiratory Rate 19 Blood Pressure 117/56 L Pulse Oximetry 98 96 09/05/18 05:00 Temperature Pulse Rate 79 Respiratory Rate Blood Pressure 134/67 Pulse Oximetry 96 Intake & Output 09/04/18 09/05/18 09/05/18 18:59 06:59 18:59 Intake Total 850 / 850 590 / 590 Output Total 2009 100 / 100 Balance -1160 / -1160 490 / 490 Weight 77.5 kg Intake: IV 150 / 150 150 / 150 Protonix Inj 80 MG In NS Inj 100 / 100 100 / 100 100 ML @ 10 mls/hr IV.CONT CONT [facility] Rx#:[id number] Zosyn 2.25 GM Premix 2.25 gm In 50 / 50 50 / 50 50 ml @ 100 mls/hr IV.SIG Q8H [facility] Rx#:[id number] Oral 700 / 700 440 / 440 Output: Urine 100 / 100 Hemodialysis Amount 1999 Other: Date of Last Bowel Movement 09/03/18 09/03/18 Weight On Admission 79.37 kg <Samson Colon - Last Filed: 09/05/18 09:14> Results - Labs CBC & Chem 7: 09/04/18 12:44 09/04/18 06:16 Labs: Laboratory Results - last 24 hr 09/03/18 09/03/18 09/03/18 12:30 16:25 16:25 WBC RBC Hgb Hct MCV MCH MCHC RDW Plt Count MPV Prelim Diff (Auto) Neut % (Auto) Lymph % (Auto) Sterling % (Auto) Eos % (Auto) Baso % (Auto) Neut # (Auto) Lymph # (Auto) Sterling # (Auto) Eos # (Auto) Baso # (Auto) WBC Differential Seg Neuts % (Manual) Band Neuts % (Manual) Lymphocytes % (Manual) Monocytes % (Manual) Metamyelocytes % (Man) Myelocytes % (Man) Abs Neuts (Manual) Nucleated RBCs/100 WBC Differential Comment Platelet Estimate Platelet Morphology Sodium Potassium Chloride Carbon Dioxide Anion Gap BUN Creatinine Estimated GFR Random Glucose Lactic Acid 5.0 H* Calcium Phosphorus Magnesium Total Bilirubin AST ALT Alkaline Phosphatase Total Creatine Kinase CK-MB (CK-2) CK-MB (CK-2) % Troponin I 13.30 H* Total Protein Albumin Triglycerides Cholesterol LDL Cholesterol, Calc HDL Cholesterol Cholesterol/HDL Ratio Nasal Screen MRSA (PCR) MTS Gel Crossmatch See Detail 09/03/18 09/04/18 09/04/18 18:20 06:16 06:16 WBC RBC Hgb Hct MCV MCH MCHC RDW Plt Count MPV Prelim Diff (Auto) Neut % (Auto) Lymph % (Auto) Sterling % (Auto) Eos % (Auto) Baso % (Auto) Neut # (Auto) Lymph # (Auto) Sterling # (Auto) Eos # (Auto) Baso # (Auto) WBC Differential Seg Neuts % (Manual) Band Neuts % (Manual) Lymphocytes % (Manual) Monocytes % (Manual) Metamyelocytes % (Man) Myelocytes % (Man) Abs Neuts (Manual) Nucleated RBCs/100 WBC Differential Comment Platelet Estimate Platelet Morphology Sodium 139 Potassium 5.1 Chloride 107 Carbon Dioxide 19.9 L Anion Gap 12 BUN 38 H Creatinine 4.72 H Estimated GFR 13 L Random Glucose 111 H Lactic Acid 1.9 Calcium 7.7 L Phosphorus 3.5 Magnesium 1.9 Total Bilirubin 0.4 AST 657 H ALT 111 H Alkaline Phosphatase 1938 H Total Creatine Kinase CK-MB (CK-2) CK-MB (CK-2) % Troponin I 36.60 H* Total Protein 6.5 D Albumin 2.8 L Triglycerides Cholesterol LDL Cholesterol, Calc HDL Cholesterol Cholesterol/HDL Ratio Nasal Screen MRSA (PCR) Not detected MTS Gel Crossmatch 09/04/18 09/04/18 09/04/18 06:16 06:16 09:55 WBC 8.6 RBC 3.14 L Hgb 9.6 L D Hct 28.1 L MCV 89.4 MCH 30.7 MCHC 34.3 RDW 19.1 H Plt Count 145 L MPV 7.7 Prelim Diff (Auto) Slide review pending Neut % (Auto) 65.1 Lymph % (Auto) 30.7 Sterling % (Auto) 3.8 Eos % (Auto) 0.2 Baso % (Auto) 0.2 Neut # (Auto) 5.6 Lymph # (Auto) 2.6 Sterling # (Auto) 0.3 Eos # (Auto) 0.0 Baso # (Auto) 0.0 WBC Differential Manual diff final Seg Neuts % (Manual) 71 H Band Neuts % (Manual) 12 H Lymphocytes % (Manual) 11 Monocytes % (Manual) 4 Metamyelocytes % (Man) 1 Myelocytes % (Man) 1 H Abs Neuts (Manual) 7.3 Nucleated RBCs/100 WBC 1 H Differential Comment . Platelet Estimate Normal Platelet Morphology Normal Sodium Potassium Chloride Carbon Dioxide Anion Gap BUN Creatinine Estimated GFR Random Glucose Lactic Acid 1.1 Calcium Phosphorus Magnesium Total Bilirubin AST ALT Alkaline Phosphatase Total Creatine Kinase CK-MB (CK-2) CK-MB (CK-2) % Troponin I Total Protein Albumin Triglycerides 166 H Cholesterol 107 L LDL Cholesterol, Calc 40 HDL Cholesterol 33.6 L Cholesterol/HDL Ratio 3.18 Nasal Screen MRSA (PCR) MTS Gel Crossmatch 09/04/18 09/04/18 12:44 12:44 WBC RBC Hgb 8.4 L Hct 24.0 L MCV MCH MCHC RDW Plt Count MPV Prelim Diff (Auto) Neut % (Auto) Lymph % (Auto) Sterling % (Auto) Eos % (Auto) Baso % (Auto) Neut # (Auto) Lymph # (Auto) Sterling # (Auto) Eos # (Auto) Baso # (Auto) WBC Differential Seg Neuts % (Manual) Band Neuts % (Manual) Lymphocytes % (Manual) Monocytes % (Manual) Metamyelocytes % (Man) Myelocytes % (Man) Abs Neuts (Manual) Nucleated RBCs/100 WBC Differential Comment Platelet Estimate Platelet Morphology Sodium Potassium Chloride Carbon Dioxide Anion Gap BUN Creatinine Estimated GFR Random Glucose Lactic Acid Calcium Phosphorus Magnesium Total Bilirubin AST ALT Alkaline Phosphatase Total Creatine Kinase 581 H CK-MB (CK-2) 30.9 H CK-MB (CK-2) % 5.3 H* Troponin I Greater than 40.00 H* Total Protein Albumin Triglycerides Cholesterol LDL Cholesterol, Calc HDL Cholesterol Cholesterol/HDL Ratio Nasal Screen MRSA (PCR) MTS Gel Crossmatch <Nancy Patterson - Last Filed: 09/04/18 17:26> - Labs CBC & Chem 7: 09/05/18 04:41 09/05/18 04:41 Labs: Laboratory Results - last 24 hr 09/04/18 09/04/18 09/04/18 06:16 09:55 12:44 WBC RBC Hgb 8.4 L Hct 24.0 L MCV MCH MCHC RDW Plt Count MPV Prelim Diff (Auto) Neut % (Auto) Lymph % (Auto) Sterling % (Auto) Eos % (Auto) Baso % (Auto) Neut # (Auto) Lymph # (Auto) Sterling # (Auto) Eos # (Auto) Baso # (Auto) WBC Differential Manual diff final Seg Neuts % (Manual) 71 H Band Neuts % (Manual) 12 H Lymphocytes % (Manual) 11 Monocytes % (Manual) 4 Metamyelocytes % (Man) 1 Myelocytes % (Man) 1 H Abs Neuts (Manual) 7.3 Nucleated RBCs/100 WBC 1 H Differential Comment Platelet Estimate Normal Platelet Morphology Normal PT INR Fibrinogen Sodium Potassium Chloride Carbon Dioxide Anion Gap BUN Creatinine Estimated GFR Random Glucose Lactic Acid 1.1 Calcium Phosphorus Magnesium Total Bilirubin AST ALT Alkaline Phosphatase Total Creatine Kinase CK-MB (CK-2) CK-MB (CK-2) % Troponin I Total Protein Albumin 09/04/18 09/04/18 09/05/18 12:44 18:04 04:41 WBC RBC Hgb 8.2 L Hct 24.2 L MCV MCH MCHC RDW Plt Count MPV Prelim Diff (Auto) Neut % (Auto) Lymph % (Auto) Sterling % (Auto) Eos % (Auto) Baso % (Auto) Neut # (Auto) Lymph # (Auto) Sterling # (Auto) Eos # (Auto) Baso # (Auto) WBC Differential Seg Neuts % (Manual) Band Neuts % (Manual) Lymphocytes % (Manual) Monocytes % (Manual) Metamyelocytes % (Man) Myelocytes % (Man) Abs Neuts (Manual) Nucleated RBCs/100 WBC Differential Comment Platelet Estimate Platelet Morphology PT INR Fibrinogen Sodium Potassium Chloride Carbon Dioxide Anion Gap BUN Creatinine Estimated GFR Random Glucose Lactic Acid 1.7 Calcium Phosphorus Magnesium Total Bilirubin AST ALT Alkaline Phosphatase Total Creatine Kinase 581 H CK-MB (CK-2) 30.9 H CK-MB (CK-2) % 5.3 H* Troponin I Greater than 40.00 H* Total Protein Albumin 09/05/18 09/05/1818 04:41 04:41 04:41 WBC 8.1 RBC 2.93 L Hgb 8.9 L Hct 25.7 L MCV 87.8 MCH 30.2 MCHC 34.4 RDW 18.7 H Plt Count 136 L MPV 7.4 Prelim Diff (Auto) Slide review pending Neut % (Auto) 64.8 Lymph % (Auto) 28.8 Sterling % (Auto) 5.9 Eos % (Auto) 0.2 Baso % (Auto) 0.3 Neut # (Auto) 5.3 Lymph # (Auto) 2.3 Sterling # (Auto) 0.5 Eos # (Auto) 0.0 Baso # (Auto) 0.0 WBC Differential Manual diff final Seg Neuts % (Manual) 73 H Band Neuts % (Manual) 5 Lymphocytes % (Manual) 17 Monocytes % (Manual) 5 Metamyelocytes % (Man) Myelocytes % (Man) Abs Neuts (Manual) 6.3 Nucleated RBCs/100 WBC 2 H Differential Comment . Platelet Estimate Low L Platelet Morphology Normal PT 17.7 H INR 1.7 Fibrinogen 449 H Sodium 141 Potassium 3.4 L D Chloride 103 Carbon Dioxide 27.2 Anion Gap 11 BUN 26 H Creatinine 3.51 H Estimated GFR 18 L Random Glucose 115 H Lactic Acid Calcium 7.6 L Phosphorus 2.4 L D Magnesium 1.9 Total Bilirubin 0.5 AST 189 H ALT 65 Alkaline Phosphatase 1610 H Total Creatine Kinase 304 CK-MB (CK-2) 6.7 H CK-MB (CK-2) % Troponin I Total Protein 5.8 L D Albumin 2.4 L <Samson Colon - Last Filed: 09/05/18 09:14> Assessment and Plan (1) Anemia Status: Acute Code(s): D64.9 - Anemia, unspecified - Plan This patient is a pleasant 63-year-old male with past medical history significant for end-stage renal disease, metastatic prostate cancer, anemia, hypertension. Surgical history significant for orthopedic surgery and placement of AV fistula. Patient presented to [facility] in [place] with report of shortness of breath on exertion and chest pain for 3 days. Upon admission, patient was noted to have a hemoglobin 6.2 hematocrit 19.8 lactic acid 5.0 troponin 13.3. Patient was transferred to [facility] in [place] for further evaluation. Patient denies abdominal pain, nausea or vomiting. Denies diarrhea or constipation. Patient denies any noted bleeding in stools. Patient denies difficulty swallowing or odynophagia. Denies any history of EGD or colonoscopy in the past. Our service has been consulted to evaluate patient for anemia, GI bleed Anemia GI bleed Patient endorses 3-day history of shortness of breath and generalized weakness. History of end-stage renal disease on hemodialysis every Tuesday and Tuesday History of metastatic prostate cancer Chest pain with elevated [id number] 09/03/2018 CT chest reveals following-. Widespread bony metastatic disease. Moderate bilateral pleural effusions worse on the right. Calcified left thyroid mass not changed since 2017. 09/03/2018 hemoglobin 6.2 hematocrit 19.8, posttransfusion 09/04/2018 hemoglobin 9.6 hematocrit 28.1 platelet count 145 INR 2.1 lactic acid 5.0 09/04/2018 lactic acid 1.1 calcium 7.7 total bilirubin 0.4 AST 657 ALT 111 alk phos 1938 troponin 36.60 Plan -N.p.o. -Obtain consent for EGD -Pantoprazole drip -Antiemetic as per attending -Analgesic as per attending -Monitor for bleeding -Notify GI for any active bleeding -Transfuse as needed -Monitor labs hemoglobin and hematocrit -Avoid anticoagulants -Cardiology following planned cardiac cath, post GI evaluation -Supportive care -Further recommendations to follow This patient has been seen by myself and Dr. Colon and this note is written on his behalf - Attending Attestation Dr. Colon <Nancy Patterson - Last Filed: 09/04/18 17:26> (1) Anemia Status: Acute Code(s): D64.9 - Anemia, unspecified - Attending Attestation The patient was seen and examined. Agree with above. <Samson Colon - Last Filed: 09/05/18 09:14> <Nancy Patterson - Last Filed: 09/04/18 17:26> (1) Anemia Qualifiers: Anemia type: due to chronic kidney disease Chronic kidney disease stage: on chronic dialysis Qualified Code(s): N18.6 - End stage renal disease; D63.1 - Anemia in chronic kidney disease; Z99.2 - Dependence on renal dialysis <Samson Colon - Last Filed: 09/05/18 09:14> (1) Anemia Qualifiers: Anemia type: due to chronic kidney disease Chronic kidney disease stage: on chronic dialysis Qualified Code(s): N18.6 - End stage renal disease; D63.1 - Anemia in chronic kidney disease; Z99.2 - Dependence on renal dialysis
--- NOTE | 2018-09-04 17:54 | ECHRPT ---
Indication: Chest Pain CONCLUSIONS Mildly dilated left ventricle. Wall thickness is measured at the upper limits of normal. The left ventricular systolic function is severely reduced with an estimated ejection fraction in th e range of 25-30%. The left atrial size is mildly dilated. Mild mitral valve regurgitation. Aortic valve sclerosis is present. Trace aortic valve regurgitation. There is trace tricuspid valve regurgitation. The estimated pulmonary arterial pressure is 24 mmHg. Trivial pulmonary valve regurgitation. There is a pericardial effusion present. BP: / HR: Rhythm: MEASUREMENTS (Male / Female) Normal Values Technical Quality:Good 2D ECHO LV Diastolic Diameter PLAX 6.4 cm 4.2 - 5.9 / 3.9 - 5.3 cm LV Systolic Diameter PLAX 5.0 cm IVS Diastolic Thickness 1.0 cm 0.6 - 1.0 / 0.6 - 0.9 cm LVPW Diastolic Thickness 1.0 cm 0.6 - 1.0 / 0.6 - 0.9 cm LV Relative Wall Thickness 0.3 RV Internal Dim ED PLAX 2.9 cm LVOT Diameter 2.0 cm Aortic Root Diameter 3.0 cm LA Systolic Diameter LX 4.7 cm 3.0 - 4.0 / 2.7 - 3.8 cm LV Ejection Fraction MOD 4C 41.9 % LV Ejection Fraction 4C AL 42.5 % M-MODE AV Cusp Separation MM 1.4 cm DOPPLER AV Peak Velocity 198.0 cm/s AV Peak Gradient 15.7 mmHg LVOT Peak Velocity 142.0 cm/s LVOT Peak Gradient 8.1 mmHg AV Area Cont Eq pk 2.3 cm Mitral E Point Velocity 137.0 cm/s Mitral A Point Velocity 106.0 cm/s Mitral E to A Ratio 1.3 LV E' Lateral Velocity 8.4 cm/s Mitral E to LV E' Lateral Ratio 16.3 LV E' Septal Velocity 5.1 cm/s Mitral E to LV E' Septal Ratio 27.0 TR Peak Velocity 189.0 cm/s TR Peak Gradient 14.3 mmHg Right Atrial Pressure 10.0 mmHg Pulmonary Artery Systolic Pressu 24.3 mmHg Right Ventricular Systolic Press 24.3 mmHg PV Peak Velocity 138.0 cm/s PV Peak Gradient 7.6 mmHg FINDINGS LEFT VENTRICLE Mildly dilated left ventricle. Wall thickness is measured at the upper limits of normal. The left ventricular systolic function is severely reduced with an estimated ejection fraction in th e range of 25-30%. RIGHT VENTRICLE Normal right ventricular size and systolic function. LEFT ATRIUM The left atrial size is mildly dilated. RIGHT ATRIUM The right atrial size is normal. ATRIAL SEPTUM Normal atrial septal thickness without atrial level shunting by limited color doppler interrogation. AORTA The aortic root and proximal ascending aorta are normal in size on limited imaging. MITRAL VALVE Mild mitral valve regurgitation. AORTIC VALVE Trileaflet aortic valve. Aortic valve sclerosis is present. Trace aortic valve regurgitation. TRICUSPID VALVE There is trace tricuspid valve regurgitation. The estimated pulmonary arterial pressure is 24 mmHg. PULMONARY VALVE Trivial pulmonary valve regurgitation. VESSELS The inferior vena cava is normal in size. PERICARDIUM There is a pericardial effusion present. Lenin Portillo MD, FACC (Electronically Signed) Final Date:04 September 2018 17:53
[2018-09-04 19:01] LABS: Hematocrit 24.2 % (39.0-51.0); Hemoglobin 8.2 gm/dL (13.0-17.0)
[2018-09-04] MEDS: Metoprolol Tartrate 25 MG Tablet PO SCH (21:31)
[2018-09-05] MEDS: Pantoprazole Inj 80 MG in Sodium Chlor 0.9% Inj 100 ML IV.CONT SCH (01:10)
[2018-09-05 04:57] LABS: Baso % (Auto) 0.3 % (0.0-2.0); Eos % (Auto) 0.2 % (0.0-4.0); Hematocrit 25.7 % (39.0-51.0); Hemoglobin 8.9 gm/dL (13.0-17.0); Lymph # (Auto) 2.3 th/mm3 (1.0-4.8); Lymph % (Auto) 28.8 % (9.0-44.0); Mean Corpuscular HGB Conc 34.4 % (32.0-36.0); Mean Corpuscular Hemoglobin 30.2 pg (27.0-34.0); Mean Corpuscular Volume 87.8 fL (80.0-100.0); Mean Platelet Volume 7.4 fL (7.0-11.0); Mono # (Auto) 0.5 th/mm3 (0.0-0.9); Mono % (Auto) 5.9 % (0.0-8.0); Neut # (Auto) 5.3 th/mm3 (1.8-7.7); Neut % (Auto) 64.8 % (16.0-70.0); Platelet Count 136 th/mm3 (150-450); Red Blood Count 2.93 mil/mm3 (4.50-5.90); Red Cell Distribution Width 18.7 % (11.6-17.2); White Blood Count 8.1 th/mm3 (4.0-11.0)
[2018-09-05] MEDS: Metoprolol Tartrate 25 MG Tablet PO SCH ×3 (05:05→21:24)
[2018-09-05 05:11] LABS: INR 1.7 Ratio; Prothrombin Time 17.7 sec (9.8-11.6)
[2018-09-05 05:34] LABS: Albumin 2.4 g/dL (3.4-5.0); Anion Gap 11 meq/L (5-15); Aspartate Aminotransferase 189 U/L (15-37); Blood Urea Nitrogen 26 mg/dL (7-18); Calcium 7.6 mg/dL (8.5-10.1); Carbon Dioxide 27.2 meq/L (21.0-32.0); Chloride 103 meq/L (98-107); Glomerular Filtration Rate 18 mL/min (>89); Glucose,Random 115 mg/dL (74-106); Magnesium 1.9 mg/dL (1.5-2.5); Potassium 3.4 meq/L (3.5-5.1); Sodium 141 meq/L (136-145)
[2018-09-05 05:47] LABS: Alanine Aminotransferase 65 U/L (12-78); Alkaline Phosphatase 1610 U/L (45-117); Creatine Kinase 304 U/L (39-308); Phosphorus 2.4 mg/dL (2.5-4.9); Total Protein 5.8 g/dL (6.4-8.2)
[2018-09-05] MEDS: metroNIDAZOLE 500 MG Tablet PO SCH ×3 (05:49→22:15)
[2018-09-05] MEDS: Piperacil/Tazo 2.25 GM Premix 2.25 GM/50 ML PIGGYBACK IV.SIG SCH ×3 (05:49→22:15)
[2018-09-05 06:12] LABS: Creatine Kinase MB 6.7 ng/mL (0.5-3.6)
[2018-09-05 07:52] LABS: Lymphocytes 17 % (9-44); Monocytes 5 % (0-8); Platelet Morphology Normal (Normal); Tallied Nucleated RBC 2 (0-0)
[2018-09-05] MEDS: Chlorhexidine Gluconate 2% 1 Pack (2 Cloths) TOPICAL SCH (07:54)
--- NOTE | 2018-09-05 09:28 | P.PNNP ---
Subjective Interval history: Patient states he was planning to have endoscopy by GI, still has pain on the left side Physical Exam Vital signs: Vital Signs 09/04/18 12:00 09/04/18 12:01 09/04/18 16:00 Temperature 98.4 F 98.2 F Pulse Rate 95 H 78 Respiratory Rate 20 16 16 Blood Pressure 141/75 H 123/56 L Pulse Oximetry 99 97 09/04/18 16:30 09/04/18 17:00 09/04/18 18:00 Temperature Pulse Rate 78 83 80 Respiratory Rate 18 Blood Pressure 113/59 L 135/63 Pulse Oximetry 95 98 09/04/18 19:00 09/04/18 20:00 09/04/18 20:36 Temperature 98.7 F Pulse Rate 78 75 80 Respiratory Rate 21 Blood Pressure 114/56 L 111/58 L Pulse Oximetry 99 96 09/04/18 20:38 09/04/18 20:39 09/04/18 21:00 Temperature Pulse Rate 82 Respiratory Rate Blood Pressure 115/64 Pulse Oximetry 99 99 97 09/04/18 22:00 09/04/18 23:00 09/05/18 00:00 Temperature 98.6 F Pulse Rate 81 75 70 Respiratory Rate Blood Pressure 120/68 115/59 L 109/58 L Pulse Oximetry 100 98 98 09/05/18 01:00 09/05/18 02:00 09/05/18 03:00 Temperature Pulse Rate 77 76 74 Respiratory Rate Blood Pressure 122/57 L 121/65 116/56 L Pulse Oximetry 99 99 97 09/05/18 04:00 09/05/18 04:54 09/05/18 04:56 Temperature 98.5 F Pulse Rate 75 75 Respiratory Rate 19 Blood Pressure 117/56 L Pulse Oximetry 98 96 09/05/18 05:00 09/05/18 08:00 Temperature Pulse Rate 79 Respiratory Rate Blood Pressure 134/67 Pulse Oximetry 96 97 Intake & Output 09/04/18 09/05/18 09/05/18 18:59 06:59 18:59 Intake Total 850 / 850 590 / 590 Output Total 2009 100 / 100 Balance -1160 / -1160 490 / 490 Weight 77.5 kg Intake: IV 150 / 150 150 / 150 Protonix Inj 80 MG In NS Inj 100 / 100 100 / 100 100 ML @ 10 mls/hr IV.CONT CONT CYNDIE Rx#:[id number] Zosyn 2.25 GM Premix 2.25 gm In 50 / 50 50 / 50 50 ml @ 100 mls/hr IV.SIG Q8H CYNDIE Rx#:[id number] Oral 700 / 700 440 / 440 Output: Urine 100 / 100 Hemodialysis Amount 1999 Other: Date of Last Bowel Movement 09/03/18 09/03/18 Weight On Admission 79.37 kg Narrative: GENERAL: Well-nourished, well-developed patient who has pain in the left hip. SKIN: Warm and dry. HEAD: Normocephalic. EYES: No scleral icterus. No injection or drainage. NECK: Supple, trachea midline. No JVD or lymphadenopathy. CARDIOVASCULAR: Regular rate and rhythm without murmurs, gallops, or rubs. RESPIRATORY: Breath sounds equal bilaterally. No accessory muscle use. GASTROINTESTINAL: Abdomen soft, non-tender, nondistended. EXTREMITIES: Muscle wasting present NEUROLOGICAL: Awake, alert, and oriented x 3. Non-focal. Assessment and Plan - Assessment (1) End stage renal disease Code(s): N18.6 - End stage renal disease Status: Chronic (2) Anemia Code(s): D64.9 - Anemia, unspecified Status: Acute Qualifiers: Anemia type: due to chronic kidney disease Chronic kidney disease stage: on chronic dialysis Qualified Code(s): N18.6 - End stage renal disease; D63.1 - Anemia in chronic kidney disease; Z99.2 - Dependence on renal dialysis (3) Joint pain Code(s): M25.50 - Pain in unspecified joint Status: Deleted Qualifiers: Joint pain location: hip Laterality: left Qualified Code(s): M25.552 - Pain in left hip (4) Dyspnea Code(s): R06.00 - Dyspnea, unspecified Status: Acute Qualifiers: Dyspnea type: shortness of breath Qualified Code(s): R06.02 - Shortness of breath; R06.00 - Dyspnea, unspecified; R06.01 - Orthopnea (5) Prostate cancer metastatic to bone Code(s): C61 - Malignant neoplasm of prostate; C79.51 - Secondary malignant neoplasm of bone Status: Chronic - Plan Patient had hemodialysis 2 L Poor prognosis As advanced metastatic prostate cancer increase alkaline phosphatase indicating bone metastasis Pain likely related to underlying cancer although he said oncologist did not find cancer on the left hip His PSA was 190 in Jun 2018, repeat pending Anemia GI is going to do endoscopy Dr. Roger to follow from tomorrow
[2018-09-05] MEDS ORDERED: Lidocaine PF 1% Inj 5 ML Syringe OTHER ONE (09:50)
--- NOTE | 2018-09-05 10:12 | P.PCN ---
Date of procedure: 09/05/18 Pre-op diagnosis: Anemia secondary to acute blood loss secondary to over anticoagulation Post-op diagnosis: other (Acute gastritis) Procedure: Indication: Anemia with acute blood loss in patient over anticoagulated Procedure Performed; upper endoscopy with biopsy After informing the patient about procedure and possible complications consent was signed. history and physical were updated. Patient was taken to the procedure room and placed in position. Time out was completed. Adequate sedation was performed by anesthesia provider. Upper Endoscopy, the scope was placed in the mouth advanced under video guide to the second portion of the duodenum, then the scope was withdrawal to the stomach and retro-flexion was performed, the scope was withdrawal to the esophagus then out of the mouth without any immediate complication Findings; Esophagus: Z line was seen at 45 cm and was regular in appearance. The esophageal mucosa was normal. Stomach: Direct and retroflex views were obtained. In the antrum and distal body erythema with superficial erosions were seen. No ulcers. No stigmata of recent bleeding were seen. Biopsies were obtained from the antrum for histopathology. Duodenum: The bulb had scattered areas of erythema but no ulcers or erosions. The second portion was normal. Recommendations; 1- Supportive care 2- ok to transfer to recovery area then discharge per protocol 3- Return to floor [id number] diet 5- EGD if needed for further bleeding 6- Avoid NSAIDS and over anticoagulation 7- Pathology pending Anesthesia: MAC Surgeon: Samson Colon Pathology: other (Gastric antrum) Condition: stable Disposition: floor
[2018-09-05] MEDS: Senna/Docusate Sodium 8.6/50 MG Tablet PO SCH ×2 (11:23→21:24)
--- NOTE | 2018-09-05 13:27 | P.PNCC ---
Subjective Subjective Remarks/Hospital Course: 09/04: No acute events overnight. Patient undergoing hemodialysis at this time , denies chest pain. Troponin continues to be elevated, continue monitoring with CPK-MB. Patient hemodynamically stable, hemoglobin now, 9.6 status post transfusion of 2 units of PRBC's. No active signs of bleeding, no hematemesis, hematochezia ,nor melena reported overnight. The patient continues on Protonix infusion and serial monitoring of the hemoglobin. 09/05: Hemoglobin stable . No melena or active signs of bleeding overnight the patient underwent endoscopy today which revealed superficial erosions and erythema but no ulcers. PSA levels pending, alkaline phosphatase significantly elevated concern for metastasis. Troponin level starting to downtrend, patient denies chest pain hemodynamically stable. Objective Vital Signs / I&O: Vital Signs 09/04/18 16:00 09/04/18 16:30 09/04/18 17:00 Temperature 98.2 F Pulse Rate 78 78 83 Respiratory Rate 16 18 Blood Pressure 123/56 L 113/59 L Pulse Oximetry 97 95 09/04/18 18:00 09/04/18 19:00 09/04/18 20:00 Temperature 98.7 F Pulse Rate 80 78 75 Respiratory Rate Blood Pressure 135/63 114/56 L 111/58 L Pulse Oximetry 98 99 96 09/04/18 20:36 09/04/18 20:38 09/04/18 20:39 Temperature Pulse Rate 80 Respiratory Rate 21 Blood Pressure Pulse Oximetry 99 99 09/04/18 21:00 09/04/18 22:00 09/04/18 23:00 Temperature Pulse Rate 82 81 75 Respiratory Rate Blood Pressure 115/64 120/68 115/59 L Pulse Oximetry 97 100 98 09/05/18 00:00 09/05/18 01:00 09/05/18 02:00 Temperature 98.6 F Pulse Rate 70 77 76 Respiratory Rate Blood Pressure 109/58 L 122/57 L 121/65 Pulse Oximetry 98 99 99 09/05/18 03:00 09/05/18 04:00 09/05/18 04:54 Temperature 98.5 F Pulse Rate 74 75 75 Respiratory Rate 19 Blood Pressure 116/56 L 117/56 L Pulse Oximetry 97 98 09/05/18 04:56 09/05/18 05:00 09/05/18 08:00 Temperature 98.4 F Pulse Rate 79 76 Respiratory Rate 16 Blood Pressure 134/67 119/57 L Pulse Oximetry 96 96 100 09/05/18 10:00 09/05/18 10:10 09/05/18 10:30 Temperature 98.6 F Pulse Rate 72 74 71 Respiratory Rate 17 16 Blood Pressure 116/58 L 109/57 L Pulse Oximetry 100 99 09/05/18 10:40 09/05/18 10:44 09/05/18 12:00 Temperature 98.6 F 98.7 F Pulse Rate 75 72 Respiratory Rate 17 14 Blood Pressure 111/56 L 118/64 Pulse Oximetry 100 100 98 Intake & Output 09/04/18 09/05/18 09/05/18 18:59 06:59 18:59 Intake Total 850 / 850 590 / 590 100 / 100 Output Total 2009 100 / 100 Balance -1160 / -1160 490 / 490 100 / 100 Weight 77.5 kg Intake: IV 150 / 150 150 / 150 50 / 50 Protonix Inj 80 MG In NS Inj 100 / 100 100 / 100 100 ML @ 10 mls/hr IV.CONT CONT CYNDIE Rx#:[id number] Zosyn 2.25 GM Premix 2.25 gm In 50 / 50 50 / 50 50 / 50 50 ml @ 100 mls/hr IV.SIG Q8H CYNDIE Rx#:[id number] Oral 700 / 700 440 / 440 Anesthesia Amount 50 / 50 Output: Urine 10 / 10 100 / 100 Hemodialysis Amount 1999 Other: Date of Last Bowel Movement 09/03/18 09/03/18 09/03/18 Weight On Admission 79.37 kg Result Diagrams: 09/05/18 04:41 09/05/18 04:41 Objective Remarks: GENERAL: This is a well-developed, thin male patient appearance chronically ill , in no apparent distress. SKIN: Warm and dry. HEAD: Atraumatic. Normocephalic. EYES: Pupils equal and round. No scleral icterus. No injection or drainage. ENT: No nasal bleeding or discharge. Mucous membranes pink and moist. NECK: Trachea midline. No JVD. Tunneled Hemovac catheter left IJ dressing clean dry and intact CARDIOVASCULAR: Normal rate, regular rhythm. RESPIRATORY: No accessory muscle use. Clear to auscultation. Breath sounds equal bilaterally. GASTROINTESTINAL: Abdomen soft, non-tender, nondistended. No guarding. MUSCULOSKELETAL: Extremities without clubbing, cyanosis, or edema. No obvious deformities. NEUROLOGICAL: GCS 15 awake and alert. RASS 0. No gross focal/sensory deficits. Follows commands in all 4 extremities. Procedures: 09/05: Endoscopy Assessment and Plan - Assessment and Plan Plan: 63yM presenting with type II NSTEMI secondary to acute blood loss anemia/ suspected recurrent lower GI bleed NEURO: Tobacco use disorder Chronic pain * Patient counseled on smoking cessation, nicotine patch ordered * Pain control as needed * Patient reports that he has 1 alcoholic drink each night, monitor for signs/ symptoms of withdrawal CARDIO: Type II NSTEMI Dyslipidemia * Secondary to acute anemia, see below * ASA only, heparin contraindicated in the setting of GI bleed * 2D echo ordered follow-up results * Trend troponins/ EKGs * Cardiology recommendations, patient may need diagnostic cardiac cath after colonoscopy * Patient may benefit from starting beta fab before discharge but will hold off for now in the setting of GI bleed RESP: Bilateral pleural effusions, right greater than left Dyspnea * Incentive spirometer while awake * Nebs scheduled and PRN * Nicotine patch * CXR and V/Q scan negative for PE or PNA F/E/N, RENAL: Acute hyperkalemia End stage renal disease on hemodialysis * Patient's K+ 5.6 on presentation, no EKG changes, given kayexalate and bicarb by Dr. Roger * AM labs * IHD per nephrology scheduling * NPO follow-up with GI when to resume diet HEME/ GI: Suspected recurrent GI bleed, likely lower Acute on chronic normocytic anemia secondary to blood loss * 2U PRBCs now * Check FOBT still pending * Monitor H/H, previous records show baseline hemoglobin is around 8-9 (related to chronic kidney disease), will keep hemoglobin >8 in the setting of NSTEMI * Bilateral LE duplex negative for DVT * GI recommendations appreciated * Transfuse for hemoglobin less than 7 : History of metastatic prostate CA * Continue home Flomax * Hold bicalutamide for now * Follow-up PSA levels -noted alkaline phosphatase level greater than 1000 this a.m., concern for possible bone metastasis ID: History of C diff colitis Lactic acidosis-resolved * Trend lactic acid * Recheck stool C diff, continue home PO metronidazole * Patient given zosyn in ED, continue for now until blood cultures result; patient declined vancomycin * F/U blood cultures, increased risk for bacteremia as he has indwelling HD catheter PROPHY: * SCDs only, heparin contraindicated in the setting of acute blood loss anemia * Protonix BID in the setting of GIB Level 3 follow-up Code Status: Full Discussed Condition With: Patient and CREAM GATHERER at bedside
[2018-09-05] MEDS: Pantoprazole Inj 40 MG Vial IV.PUSH SCH (14:11)
--- NOTE | 2018-09-05 16:47 | P.PNPAL ---
Reason for Visit Reason for visit: a. To assist with evaluation and management of symptoms including: dyspnea, pain. b. To assist medical decision maker(s) with: better understanding of current medical conditions; weighing benefits/burdens of medical treatment options; making medical treatment decisions. Subjective Subjective/Interval History: Patient seen and examined in ICU. No family at bedside. Spoke with nurse, Luis Manuel. Patient just returned from endoscopy, post biopsy of superficial erosions, no ulcers, no active bleed identified. Hemoglobin stable today, 8.9. No signs of bleeding per nursing staff. Patient again wishes to proceed with cardiac catheterization. Troponin decreased 18.70. Blood cultures negative to date. Patient again reports pain in left hip, minimal during my visit post endoscopy. He has had 3 doses of Percocet in the past 24 hours. He reports overall pain is controlled with current meds. He asked me for the name of his oncologist, he believes it was Dr. Arceo so he can follow up upon DC. Office number provided. Patient denies chest pain, shortness of breath or anxiety today. Patient denies any questions. Will continue to follow. Family/Friend Interactions: No family present, pt does not want me to call children. Advance Directives Living Will: Never completed Health Care Surrogate: Never completed Durable Power of Detail Supervisor: Never completed Health Care Surrogate Name and Number: HCP: sonJuan Manuel AND daughterChristin Significant change in goals:: FULL CODE, goals remain aggressive. Objective Vital Signs: Vital Signs 09/04/18 17:00 09/04/18 18:00 09/04/18 19:00 Temperature Pulse Rate 83 80 78 Respiratory Rate Blood Pressure 113/59 L 135/63 114/56 L Pulse Oximetry 95 98 99 09/04/18 20:00 09/04/18 20:36 09/04/18 20:38 Temperature 98.7 F Pulse Rate 75 80 Respiratory Rate 21 Blood Pressure 111/58 L Pulse Oximetry 96 99 09/04/18 20:39 09/04/18 21:00 09/04/18 22:00 Temperature Pulse Rate 82 81 Respiratory Rate Blood Pressure 115/64 120/68 Pulse Oximetry 99 97 100 09/04/18 23:00 09/05/18 00:00 09/05/18 01:00 Temperature 98.6 F Pulse Rate 75 70 77 Respiratory Rate Blood Pressure 115/59 L 109/58 L 122/57 L Pulse Oximetry 98 98 99 09/05/18 02:00 09/05/18 03:00 09/05/18 04:00 Temperature 98.5 F Pulse Rate 76 74 75 Respiratory Rate Blood Pressure 121/65 116/56 L 117/56 L Pulse Oximetry 99 97 98 09/05/18 04:54 09/05/18 04:56 09/05/18 05:00 Temperature Pulse Rate 75 79 Respiratory Rate 19 Blood Pressure 134/67 Pulse Oximetry 96 96 09/05/18 08:00 09/05/18 10:00 09/05/18 10:10 Temperature 98.4 F 98.6 F Pulse Rate 76 72 74 Respiratory Rate 16 17 Blood Pressure 119/57 L 116/58 L Pulse Oximetry 100 100 09/05/18 10:30 09/05/18 10:40 09/05/18 10:44 Temperature 98.6 F Pulse Rate 71 75 Respiratory Rate 16 17 Blood Pressure 109/57 L 111/56 L Pulse Oximetry 99 100 100 09/05/18 12:00 09/05/18 14:00 09/05/18 16:05 Temperature 98.7 F Pulse Rate 72 76 72 Respiratory Rate 14 18 Blood Pressure 118/64 Pulse Oximetry 98 Intake & Output 09/04/18 09/05/18 09/05/18 18:59 06:59 18:59 Intake Total 850 / 850 590 / 590 100 / 100 Output Total 2009 100 / 100 Balance -1160 / -1160 490 / 490 100 / 100 Weight 77.5 kg Intake: IV 150 / 150 150 / 150 50 / 50 Protonix Inj 80 MG In NS Inj 100 / 100 100 / 100 100 ML @ 10 mls/hr IV.CONT CONT CYNDIE Rx#:[id number] Zosyn 2.25 GM Premix 2.25 gm In 50 / 50 50 / 50 50 / 50 50 ml @ 100 mls/hr IV.SIG Q8H CYNDIE Rx#:[id number] Oral 700 / 700 440 / 440 Anesthesia Amount 50 / 50 Output: Urine 10 / 10 100 / 100 Hemodialysis Amount 1999 Other: Date of Last Bowel Movement 09/03/18 09/03/18 09/03/18 Weight On Admission 79.37 kg Physical Exam: CONSTITUTIONAL/GENERAL: This is a thin, chronically ill appearing man, in no apparent distress. SKIN: No jaundice, rashes, or lesions. Ecchymoses on upper extremities. No wounds seen anteriorly. Skin temperature appropriate. Not diaphoretic. EYES: Pupils equal and round and reactive. ENT: Hearing grossly normal. Nose without bleeding or purulent drainage. Throat without visible erythema, exudates, masses, or lesions. CARDIOVASCULAR: Regular rate and rhythm without murmurs, gallops, or rubs. No JVD. Peripheral pulses symmetric. RESPIRATORY/CHEST: Symmetric, unlabored respirations. Clear to auscultation. Breath sounds equal bilaterally. No wheezes, rales, or rhonchi. GASTROINTESTINAL: Abdomen soft, non-tender, nondistended. No guarding. GENITOURINARY: Without palpable bladder distension. MUSCULOSKELETAL: Extremities without clubbing, cyanosis, or edema. Feet cool to touch. No calf tenderness. No mottling or clubbing. NEUROLOGICAL: Awake and alert. Generalized weakness. Follows commands. PSYCHIATRIC: No obvious anxiety/depression. no apparent hallucinations or other psychotic thought process. Diagnostic Tests Laboratory: Laboratory Results - last 72 hr 09/03/18 09/03/18 09/03/18 12:30 12:30 12:30 CBC w Diff Slide review pending WBC 8.9 RBC 2.20 L Hgb 6.2 L* Hct 19.8 L* MCV 89.8 MCH 28.4 MCHC 31.6 L RDW 18.3 H Plt Count 159 MPV 7.8 Prelim Diff (Auto) Neut % (Auto) 75.6 H Lymph % (Auto) 17.8 [place] % (Auto) 3.7 Eos % (Auto) 0.1 Baso % (Auto) 2.8 H Neut # (Auto) 6.8 Lymph # (Auto) 1.6 [place] # (Auto) 0.3 Eos # (Auto) 0.0 Baso # (Auto) 0.2 WBC Differential . Diff Scan Auto diff confirmed Seg Neuts % (Manual) Band Neuts % (Manual) Lymphocytes % (Manual) Monocytes % (Manual) Metamyelocytes % (Man) Myelocytes % (Man) Abs Neuts (Manual) Nucleated RBCs/100 WBC Differential Comment . Platelet Estimate Platelet Morphology PT 21.5 H INR 2.1 APTT 34.5 H Fibrinogen Puncture Site Patient Temperature O2 Saturation ABG pH ABG pCO2 ABG pO2 ABG HCO3 ABG O2 Content ABG Base Excess ABG Methemoglobin Brent Test Hemoglobin Carboxyhemoglobin O2 Delivery Device Inspired O2 Critical Value Sodium Potassium Chloride Carbon Dioxide Anion Gap BUN Creatinine Estimated GFR POC Glucose Random Glucose Lactic Acid Calcium Phosphorus Magnesium Total Bilirubin AST ALT Alkaline Phosphatase Total Creatine Kinase 328 H CK-MB (CK-2) 11.7 H CK-MB (CK-2) % 3.6 Troponin I 11.70 H* Total Protein Albumin Triglycerides Cholesterol LDL Cholesterol, Calc HDL Cholesterol Cholesterol/HDL Ratio Nasal Screen MRSA (PCR) Blood Type Blood Type Recheck Antibody Screen MTS Gel Crossmatch 09/03/18 09/03/18 09/03/18 12:30 12:30 12:30 CBC w Diff WBC RBC Hgb Hct MCV MCH MCHC RDW Plt Count MPV Prelim Diff (Auto) Neut % (Auto) Lymph % (Auto) [place] % (Auto) Eos % (Auto) Baso % (Auto) Neut # (Auto) Lymph # (Auto) [place] # (Auto) Eos # (Auto) Baso # (Auto) WBC Differential Diff Scan Seg Neuts % (Manual) Band Neuts % (Manual) Lymphocytes % (Manual) Monocytes % (Manual) Metamyelocytes % (Man) Myelocytes % (Man) Abs Neuts (Manual) Nucleated RBCs/100 WBC Differential Comment Platelet Estimate Platelet Morphology PT INR APTT Fibrinogen Puncture Site Patient Temperature O2 Saturation ABG pH ABG pCO2 ABG pO2 ABG HCO3 ABG O2 Content ABG Base Excess ABG Methemoglobin Brent Test Hemoglobin Carboxyhemoglobin O2 Delivery Device Inspired O2 Critical Value Sodium 138 Potassium 5.6 H Chloride 106 Carbon Dioxide 16.5 L Anion Gap 16 H BUN 27 H Creatinine 4.40 H Estimated GFR 14 L POC Glucose Random Glucose 154 H Lactic Acid 6.0 H* Calcium 8.0 L Phosphorus Magnesium 1.9 Total Bilirubin 0.3 AST 131 H ALT 13 Alkaline Phosphatase 1529 H Total Creatine Kinase CK-MB (CK-2) CK-MB (CK-2) % Troponin I Total Protein 5.9 L Albumin 2.6 L Triglycerides Cholesterol LDL Cholesterol, Calc HDL Cholesterol Cholesterol/HDL Ratio Nasal Screen MRSA (PCR) Blood Type O Negative Blood Type Recheck Not needed Antibody Screen Negative MTS Gel Crossmatch 09/03/18 09/03/18 09/03/18 12:30 16:17 16:25 CBC w Diff WBC RBC Hgb Hct MCV MCH MCHC RDW Plt Count MPV Prelim Diff (Auto) Neut % (Auto) Lymph % (Auto) [place] % (Auto) Eos % (Auto) Baso % (Auto) Neut # (Auto) Lymph # (Auto) [place] # (Auto) Eos # (Auto) Baso # (Auto) WBC Differential Diff Scan Seg Neuts % (Manual) Band Neuts % (Manual) Lymphocytes % (Manual) Monocytes % (Manual) Metamyelocytes % (Man) Myelocytes % (Man) Abs Neuts (Manual) Nucleated RBCs/100 WBC Differential Comment Platelet Estimate Platelet Morphology PT INR APTT Fibrinogen Puncture Site Right radial Patient Temperature 98.6 O2 Saturation 96 ABG pH 7.47 H ABG pCO2 23 L* ABG pO2 98 ABG HCO3 16 L* ABG O2 Content 8.5 L ABG Base Excess -6.7 L ABG Methemoglobin 1.3 Brent Test Present Hemoglobin 6.2 L* Carboxyhemoglobin 1.7 O2 Delivery Device None Inspired O2 21 Critical Value Yes Sodium Potassium Chloride Carbon Dioxide Anion Gap BUN Creatinine Estimated GFR POC Glucose Random Glucose Lactic Acid Calcium Phosphorus Magnesium Total Bilirubin AST ALT Alkaline Phosphatase Total Creatine Kinase CK-MB (CK-2) CK-MB (CK-2) % Troponin I 13.30 H* Total Protein Albumin Triglycerides Cholesterol LDL Cholesterol, Calc HDL Cholesterol Cholesterol/HDL Ratio Nasal Screen MRSA (PCR) Blood Type Blood Type Recheck Antibody Screen MTS Gel Crossmatch See Detail 09/03/18 09/03/18 09/04/18 16:25 18:20 06:16 CBC w Diff WBC RBC Hgb Hct MCV MCH MCHC RDW Plt Count MPV Prelim Diff (Auto) Neut % (Auto) Lymph % (Auto) [place] % (Auto) Eos % (Auto) Baso % (Auto) Neut # (Auto) Lymph # (Auto) [place] # (Auto) Eos # (Auto) Baso # (Auto) WBC Differential Diff Scan Seg Neuts % (Manual) Band Neuts % (Manual) Lymphocytes % (Manual) Monocytes % (Manual) Metamyelocytes % (Man) Myelocytes % (Man) Abs Neuts (Manual) Nucleated RBCs/100 WBC Differential Comment Platelet Estimate Platelet Morphology PT INR APTT Fibrinogen Puncture Site Patient Temperature O2 Saturation ABG pH ABG pCO2 ABG pO2 ABG HCO3 ABG O2 Content ABG Base Excess ABG Methemoglobin Brent Test Hemoglobin Carboxyhemoglobin O2 Delivery Device Inspired O2 Critical Value Sodium Potassium Chloride Carbon Dioxide Anion Gap BUN Creatinine Estimated GFR POC Glucose Random Glucose Lactic Acid 5.0 H* 1.9 Calcium Phosphorus Magnesium Total Bilirubin AST ALT Alkaline Phosphatase Total Creatine Kinase CK-MB (CK-2) CK-MB (CK-2) % Troponin I Total Protein Albumin Triglycerides Cholesterol LDL Cholesterol, Calc HDL Cholesterol Cholesterol/HDL Ratio Nasal Screen MRSA (PCR) Not detected Blood Type Blood Type Recheck Antibody Screen MTS Gel Crossmatch 09/04/18 09/04/18 09/04/18 06:16 06:16 06:16 CBC w Diff WBC 8.6 RBC 3.14 L Hgb 9.6 L D Hct 28.1 L MCV 89.4 MCH 30.7 MCHC 34.3 RDW 19.1 H Plt Count 145 L MPV 7.7 Prelim Diff (Auto) Slide review pending Neut % (Auto) 65.1 Lymph % (Auto) 30.7 [place] % (Auto) 3.8 Eos % (Auto) 0.2 Baso % (Auto) 0.2 Neut # (Auto) 5.6 Lymph # (Auto) 2.6 [place] # (Auto) 0.3 Eos # (Auto) 0.0 Baso # (Auto) 0.0 WBC Differential Manual diff final Diff Scan Seg Neuts % (Manual) 71 H Band Neuts % (Manual) 12 H Lymphocytes % (Manual) 11 Monocytes % (Manual) 4 Metamyelocytes % (Man) 1 Myelocytes % (Man) 1 H Abs Neuts (Manual) 7.3 Nucleated RBCs/100 WBC 1 H Differential Comment . Platelet Estimate Normal Platelet Morphology Normal PT INR APTT Fibrinogen Puncture Site Patient Temperature O2 Saturation ABG pH ABG pCO2 ABG pO2 ABG HCO3 ABG O2 Content ABG Base Excess ABG Methemoglobin Brent Test Hemoglobin Carboxyhemoglobin O2 Delivery Device Inspired O2 Critical Value Sodium 139 Potassium 5.1 Chloride 107 Carbon Dioxide 19.9 L Anion Gap 12 BUN 38 H Creatinine 4.72 H Estimated GFR 13 L POC Glucose Random Glucose 111 H Lactic Acid Calcium 7.7 L Phosphorus 3.5 Magnesium 1.9 Total Bilirubin 0.4 AST 657 H ALT 111 H Alkaline Phosphatase 1938 H Total Creatine Kinase CK-MB (CK-2) CK-MB (CK-2) % Troponin I 36.60 H* Total Protein 6.5 D Albumin 2.8 L Triglycerides 166 H Cholesterol 107 L LDL Cholesterol, Calc 40 HDL Cholesterol 33.6 L Cholesterol/HDL Ratio 3.18 Nasal Screen MRSA (PCR) Blood Type Blood Type Recheck Antibody Screen MTS Gel Crossmatch 09/04/18 09/04/18 09/04/18 09:55 12:44 12:44 CBC w Diff WBC RBC Hgb 8.4 L Hct 24.0 L MCV MCH MCHC RDW Plt Count MPV Prelim Diff (Auto) Neut % (Auto) Lymph % (Auto) [place] % (Auto) Eos % (Auto) Baso % (Auto) Neut # (Auto) Lymph # (Auto) [place] # (Auto) Eos # (Auto) Baso # (Auto) WBC Differential Diff Scan Seg Neuts % (Manual) Band Neuts % (Manual) Lymphocytes % (Manual) Monocytes % (Manual) Metamyelocytes % (Man) Myelocytes % (Man) Abs Neuts (Manual) Nucleated RBCs/100 WBC Differential Comment Platelet Estimate Platelet Morphology PT INR APTT Fibrinogen Puncture Site Patient Temperature O2 Saturation ABG pH ABG pCO2 ABG pO2 ABG HCO3 ABG O2 Content ABG Base Excess ABG Methemoglobin Brent Test Hemoglobin Carboxyhemoglobin O2 Delivery Device Inspired O2 Critical Value Sodium Potassium Chloride Carbon Dioxide Anion Gap BUN Creatinine Estimated GFR POC Glucose Random Glucose Lactic Acid 1.1 Calcium Phosphorus Magnesium Total Bilirubin AST ALT Alkaline Phosphatase Total Creatine Kinase 581 H CK-MB (CK-2) 30.9 H CK-MB (CK-2) % 5.3 H* Troponin I Greater than 40.00 H* Total Protein Albumin Triglycerides Cholesterol LDL Cholesterol, Calc HDL Cholesterol Cholesterol/HDL Ratio Nasal Screen MRSA (PCR) Blood Type Blood Type Recheck Antibody Screen MTS Gel Crossmatch 09/04/18 09/05/18 09/05/18 18:04 04:41 04:41 CBC w Diff WBC 8.1 RBC 2.93 L Hgb 8.2 L 8.9 L Hct 24.2 L 25.7 L MCV 87.8 MCH 30.2 MCHC 34.4 RDW 18.7 H Plt Count 136 L MPV 7.4 Prelim Diff (Auto) Slide review pending Neut % (Auto) 64.8 Lymph % (Auto) 28.8 [place] % (Auto) 5.9 Eos % (Auto) 0.2 Baso % (Auto) 0.3 Neut # (Auto) 5.3 Lymph # (Auto) 2.3 [place] # (Auto) 0.5 Eos # (Auto) 0.0 Baso # (Auto) 0.0 WBC Differential Manual diff final Diff Scan Seg Neuts % (Manual) 73 H Band Neuts % (Manual) 5 Lymphocytes % (Manual) 17 Monocytes % (Manual) 5 Metamyelocytes % (Man) Myelocytes % (Man) Abs Neuts (Manual) 6.3 Nucleated RBCs/100 WBC 2 H Differential Comment . Platelet Estimate Low L Platelet Morphology Normal PT INR APTT Fibrinogen Puncture Site Patient Temperature O2 Saturation ABG pH ABG pCO2 ABG pO2 ABG HCO3 ABG O2 Content ABG Base Excess ABG Methemoglobin Brent Test Hemoglobin Carboxyhemoglobin O2 Delivery Device Inspired O2 Critical Value Sodium Potassium Chloride Carbon Dioxide Anion Gap BUN Creatinine Estimated GFR POC Glucose Random Glucose Lactic Acid 1.7 Calcium Phosphorus Magnesium Total Bilirubin AST ALT Alkaline Phosphatase Total Creatine Kinase CK-MB (CK-2) CK-MB (CK-2) % Troponin I Total Protein Albumin Triglycerides Cholesterol LDL Cholesterol, Calc HDL Cholesterol Cholesterol/HDL Ratio Nasal Screen MRSA (PCR) Blood Type Blood Type Recheck Antibody Screen MTS Gel Crossmatch 09/05/18 09/05/18 09/05/18 04:41 04:41 04:41 CBC w Diff WBC RBC Hgb Hct MCV MCH MCHC RDW Plt Count MPV Prelim Diff (Auto) Neut % (Auto) Lymph % (Auto) [place] % (Auto) Eos % (Auto) Baso % (Auto) Neut # (Auto) Lymph # (Auto) [place] # (Auto) Eos # (Auto) Baso # (Auto) WBC Differential Diff Scan Seg Neuts % (Manual) Band Neuts % (Manual) Lymphocytes % (Manual) Monocytes % (Manual) Metamyelocytes % (Man) Myelocytes % (Man) Abs Neuts (Manual) Nucleated RBCs/100 WBC Differential Comment Platelet Estimate Platelet Morphology PT 17.7 H INR 1.7 APTT Fibrinogen 449 H Puncture Site Patient Temperature O2 Saturation ABG pH ABG pCO2 ABG pO2 ABG HCO3 ABG O2 Content ABG Base Excess ABG Methemoglobin Brent Test Hemoglobin Carboxyhemoglobin O2 Delivery Device Inspired O2 Critical Value Sodium 141 Potassium 3.4 L D Chloride 103 Carbon Dioxide 27.2 Anion Gap 11 BUN 26 H Creatinine 3.51 H Estimated GFR 18 L POC Glucose Random Glucose 115 H Lactic Acid Calcium 7.6 L Phosphorus 2.4 L D Magnesium 1.9 Total Bilirubin 0.5 AST 189 H ALT 65 Alkaline Phosphatase 1610 H Total Creatine Kinase 304 CK-MB (CK-2) 6.7 H CK-MB (CK-2) % Troponin I 28.40 H* Total Protein 5.8 L D Albumin 2.4 L Triglycerides Cholesterol LDL Cholesterol, Calc HDL Cholesterol Cholesterol/HDL Ratio Nasal Screen MRSA (PCR) Blood Type Blood Type Recheck Antibody Screen MTS Gel Crossmatch 09/05/18 09/05/18 14:27 16:31 CBC w Diff WBC RBC Hgb Hct MCV MCH MCHC RDW Plt Count MPV Prelim Diff (Auto) Neut % (Auto) Lymph % (Auto) [place] % (Auto) Eos % (Auto) Baso % (Auto) Neut # (Auto) Lymph # (Auto) [place] # (Auto) Eos # (Auto) Baso # (Auto) WBC Differential Diff Scan Seg Neuts % (Manual) Band Neuts % (Manual) Lymphocytes % (Manual) Monocytes % (Manual) Metamyelocytes % (Man) Myelocytes % (Man) Abs Neuts (Manual) Nucleated RBCs/100 WBC Differential Comment Platelet Estimate Platelet Morphology PT INR APTT Fibrinogen Puncture Site Patient Temperature O2 Saturation ABG pH ABG pCO2 ABG pO2 ABG HCO3 ABG O2 Content ABG Base Excess ABG Methemoglobin Brent Test Hemoglobin Carboxyhemoglobin O2 Delivery Device Inspired O2 Critical Value Sodium Potassium Chloride Carbon Dioxide Anion Gap BUN Creatinine Estimated GFR POC Glucose 97 Random Glucose Lactic Acid Calcium Phosphorus Magnesium Total Bilirubin AST ALT Alkaline Phosphatase Total Creatine Kinase CK-MB (CK-2) CK-MB (CK-2) % Troponin I 18.70 H* Total Protein Albumin Triglycerides Cholesterol LDL Cholesterol, Calc HDL Cholesterol Cholesterol/HDL Ratio Nasal Screen MRSA (PCR) Blood Type Blood Type Recheck Antibody Screen MTS Gel Crossmatch Result Diagrams: 09/05/18 04:41 09/05/18 04:41 Microbiology: Microbiology 09/03/18 13:11 Influenza Types A,B Antigen - Final Nasal Wash Negative for FLU A and B antigen Infection due to influenza A or B cannot be ruled out since the antigen present in the sample may be below the detection limit of the test. 09/03/18 12:30 Aerobic Blood Culture - Preliminary Blood - Peripheral No growth in 2 days Anaerobic Blood Culture - Preliminary No growth in 2 days 09/03/18 12:35 Aerobic Blood Culture - Preliminary Blood - Peripheral No growth in 2 days Anaerobic Blood Culture - Preliminary No growth in 2 days Imaging: Chest X-Ray 09/03/18 12:05 CONCLUSION: Radiographic findings compatible with volume overload and pleural effusions. Pulmonary Perfusion Imaging 09/03/18 12:16 CONCLUSION: 1. No evidence for PE. Venous Doppler Study 09/03/18 12:16 CONCLUSION: 1. The study is negative for bilateral lower extremity deep venous thrombosis. Chest CT 09/03/18 14:44 CONCLUSION: 1. Widespread bony metastatic disease. 2. Moderate bilateral pleural effusions worse on the right. 3. Calcified left thyroid mass not changed since 2017. Procedures: * 09/05/18 - Endoscopy and biopsy Assessment and Plan - Disease Oriented Problem List (1) End stage renal disease (2) Prostate cancer metastatic to bone (3) GI (gastrointestinal bleed) (4) NSTEMI (non-ST elevated myocardial infarction) (5) Elevated troponin - Symptom Scale (1) Pain 0-10 Scale: 0 (2) Dyspnea 0-10 Scale: 0 Pertinent Non-Medical Issues: Psychosocial:. Retired. Has 1 son and 1 daughter. Spiritual:Unknown. Legal: No written advance directives. According to [place] statutes, should the patient lose capacity, health care proxy decision making would fall to the majority of adult children (he has 2 sons and 1 daughter). 1 son Mekhi has Down Syndrome and unable to participate. Ethical issues impacting care: No known concerns at this time. Important Contacts: * Juan Manuel Ross, son: [phone] * Christin Ely, daughter: [phone] Prognosis: Mr. Ross is a 63 year old male with multiple acute on chronic medical problems admitted with possible GI bleed, anemia, NSTEMI, overall prognosis is poor. Code Status: Full Code Plan: * No written advance directives. According to [place] statutes, should the patient lose capacity, health care proxy decision making would fall to the majority of adult children. He has 2 sons (Juan Manuel and Mekhi) and 1 daughter ( Christin). We have offered to assist in completion of written advance directives, he declines. He tells us he would want his son, Juan Manuel and daughter, Christin to speak for him. He has another son, Mekhi who is non-verbal, has Down Syndrome, he is unable to participate in health care decision making. * FULL CODE * Goals: Patient desires FULL CODE, he wishes to proceed cardiac catheterization. I offered to call his son and daughter, he does not want me to call them. * SYMPTOMS: shortness of breath: denies during my visit. pain: chest pain, has PRN Nitro. seems to have some chronic pain of left hip and knees, ? arthritis or bone mets, has PRN Percocet 5/325mg PO every 6 hours, has had 3 doses in the past 24 hours. Will monitor need and effect. He does not want me to make any medication adjustments at this time. * Palliative care will continue to follow to assist with symptom management and clarification of goals of medical treatment throughout hospital course. Attestation Attestation: To help prompt me to consider important information that might be impacting today's encounter and assessment, information from prior notes written by myself or my colleagues may have been "brought forward" into today's note. My signature on this note, however, is an attestation that I personally performed the exam, history, and/or decision-making noted today, and, unless otherwise indicated, the interactions with patient, family, and staff as well as the review of records all occurred today. I also attest that the listed assessment and stated plan reflect my best clinical judgment today based on the combination of historical information, prior notes, and today's exam/ interactions. When time spent is documented, it refers only to time spent today by the signer, or if indicated, combined time spent today by collaborating physician/nurse practitioner.
[2018-09-05] MEDS ORDERED: PEG 3350/E-Lyte Soln 4000 ML Bottle PO ONE (18:00)
--- NOTE | 2018-09-06 00:30 | P.PNCA ---
Subjective Interval history: No events overnight EGD done showing no source of bleed Cscope not done Hemodynamically stable No chest pain Medications and Allergies Active Medications: Active Medications Acetaminophen (Tylenol) 650 mg PO UNSCH PRN PRN Reason: SEE LABEL COMMENTS Al Hydroxide/Mg Hydroxide (Milk Of Yaritza Conde) 30 ml PO Q12H PRN PRN Reason: Mild Constipation Albuterol (Albuterol Neb (Prn)) 2.5 mg NEB Q2HR NEB PRN PRN Reason: SHORTNESS OF BREATH Albuterol (Duoneb Neb (Nasreen)) 1 ampul NEB Q6HR NEB NASREEN Last Admin: 09/05/18 21:05 Dose: 1 ampul Bisacodyl (Dulcolax Supp) 10 mg RECTAL DAILY PRN PRN Reason: SEVERE CONSITIPATION Chlorhexidine Gluconate (Chlorhexidine 2% Cloth) 3 pack TOPICAL DAILY@0400 NASREEN Stop: 09/09/18 03:59 Last Admin: 09/05/18 07:54 Dose: Not Given Chlorhexidine Gluconate (Chlorhexidine 2% Cloth) 3 pack TOPICAL DAILY@0400 PRN PRN Reason: Extra cloth needed Stop: 09/09/18 03:59 Clonidine HCl (Catapres) 0.1 mg PO UNSCH PRN PRN Reason: SEE LABEL COMMENTS Diphenhydramine HCl (Benadryl) 25 mg PO UNSCH PRN PRN Reason: SEE LABEL COMMENTS Epoetin Hermes (Epogen Inj) 10,000 unit IV.PUSH UNSCH PRN PRN Reason: SEE LABEL COMMENTS Gelatin (Gelfoam 12 Mm/7 Mm Topical) 1 foam TOPICAL PRN PRN PRN Reason: help stop bleeding from site Gentamicin Sulfate (Gentamicin Inj) 20 mg OTHER WITH DIALYSIS PRN PRN Reason: Dwell Gentamycin Lock Last Admin: 09/04/18 12:51 Dose: 20 mg Heparin Sodium (Porcine) (Heparin Inj) 8,000 units OTHER WITH DIALYSIS PRN PRN Reason: for machine prime Heparin Sodium (Porcine) (Heparin Inj) 1,000 units OTHER WITH DIALYSIS PRN PRN Reason: Dwell Heparin to Fill Catheter Last Admin: 09/04/18 12:51 Dose: 1,000 units Piperacillin/Tazobactam/Dextrose (Zosyn 2.25 Gm Premix) 2.25 gm in 50 mls @ 100 mls/hr IV.SIG Q8H NASREEN Last Infusion: 09/05/18 22:51 Dose: Infused Albumin Human (Flexbumin 25% Inj) 100 mls @ 60 mls/hr IV.SIG WITH DIALYSIS PRN PRN Reason: hypotension / volume replace Sodium Chloride (Ns Inj) 1,000 mls @ 0 mls/hr OTHER .Q0M PRN PRN Reason: for prime and rinse back Sodium Chloride (Ns Inj) 1,000 mls @ 0 mls/hr IV.CONT .Q0M PRN PRN Reason: hypotension / volume replace Sodium Chloride (Ns Inj) 1,000 mls @ 200 mls/hr OTHER .Q5H PRN PRN Reason: for dialyzer flush PRN Lactulose (Lactulose Liq) 30 ml PO DAILY PRN PRN Reason: SEVERE CONSITIPATION Mannitol (Mannitol Inj) 12.5 gm IV.PUSH UNSCH PRN PRN Reason: hypotension / volume replace Metoprolol Tartrate (Lopressor) 12.5 mg PO BID [facility] Last Admin: 09/05/18 21:24 Dose: Not Given Metronidazole (Flagyl) 500 mg PO Q8HR [facility] Last Admin: 09/05/18 22:15 Dose: 500 mg Miscellaneous Information ([facility] Nursing Information) 0 each OTHER UNSCH PRN PRN Reason: SEE LABEL COMMENTS Stop: 09/06/18 10:09 Nicotine (Habitrol 7 Mg Patch.24 Hr) 1 patch T-DERMAL DAILY [facility] Last Admin: 09/05/18 11:22 Dose: Not Given Nitroglycerin (Nitrostat Sl) 0.4 mg SL Q5M PRN PRN Reason: CHEST PAIN Ondansetron HCl (Zofran Inj) 4 mg IV.PUSH UNSCH PRN PRN Reason: NAUSEA OR VOMITING Oxycodone/Acetaminophen (Percocet 5/325 Mg) 1 tab PO Q6H PRN PRN Reason: PAIN SCALE 1 TO 10 Last Admin: 09/05/18 18:05 Dose: 1 tab Pantoprazole Sodium (Protonix Inj) 40 mg IV.PUSH Q12H [facility] Last Admin: 09/05/18 14:11 Dose: 40 mg Patch Removal (Remove Old Patch) 1 each T-DERMAL DAILY [facility] Last Admin: 09/05/18 11:24 Dose: Not Given Senna/Docusate Sodium (Negin-Colace) 1 tab PO BID [facility] Last Admin: 09/05/18 21:24 Dose: 1 tab Sennosides (Senokot) 17.2 mg PO Q12H PRN PRN Reason: Moderate Constipation Sodium Chloride (Ns Flush) 2 ml IV.FLUSH PRN PRN PRN Reason: FLUSH AFTER USING IV ACCESS Sodium Chloride (Ns Flush) 2 ml IV.FLUSH BID [facility] Last Admin: 09/05/18 21:24 Dose: 2 ml Sodium Chloride (Ns Flush) 5 ml IV.FLUSH PRN PRN PRN Reason: flush each lumen during HD Tamsulosin HCl (Flomax) 0.4 mg PO DAILY [facility] Last Admin: 09/05/18 11:23 Dose: 0.4 mg Allergies Allergy/AdvReac Type Severity Reaction Status Date / Time Tetanus Vaccines and Toxoid Allergy Severe Fever Verified 08/13/18 15:46 amoxicillin AdvReac Mild Nausea/Vomi Verified 08/13/18 15:46 ting Home Medications Medication Instructions Recorded Confirmed Type bicalutamide 50 mg PO HS 07/09/18 09/03/18 History tamsulosin [Flomax] 0.4 mg PO DAILY 07/09/18 09/03/18 History Physical Exam Vital signs: Vital Signs 09/05/18 01:00 09/05/18 02:00 09/05/18 03:00 Temperature Pulse Rate 77 76 74 Respiratory Rate Blood Pressure 122/57 L 121/65 116/56 L Pulse Oximetry 99 99 97 09/05/18 04:00 09/05/18 04:54 09/05/18 04:56 Temperature 98.5 F Pulse Rate 75 75 Respiratory Rate 19 Blood Pressure 117/56 L Pulse Oximetry 98 96 09/05/18 05:00 09/05/18 08:00 09/05/18 10:00 Temperature 98.4 F Pulse Rate 79 76 72 Respiratory Rate 16 Blood Pressure 134/67 119/57 L Pulse Oximetry 96 100 09/05/18 10:10 09/05/18 10:30 09/05/18 10:40 Temperature 98.6 F Pulse Rate 74 71 Respiratory Rate 17 16 Blood Pressure 116/58 L 109/57 L Pulse Oximetry 100 99 100 09/05/18 10:44 09/05/18 12:00 09/05/18 14:00 Temperature 98.6 F 98.7 F Pulse Rate 75 72 76 Respiratory Rate 17 14 Blood Pressure 111/56 L 118/64 Pulse Oximetry 100 98 09/05/18 16:00 09/05/18 16:01 09/05/18 16:05 Temperature 98.6 F Pulse Rate 73 72 Respiratory Rate 20 16 18 Blood Pressure 119/55 L Pulse Oximetry 90 L 09/05/18 19:00 09/05/18 20:00 09/05/18 21:00 Temperature 98.1 F Pulse Rate 79 74 73 Respiratory Rate Blood Pressure 106/57 L 109/57 L 112/58 L Pulse Oximetry 98 99 98 09/05/18 21:07 09/05/18 21:08 09/05/18 22:00 Temperature Pulse Rate 77 80 Respiratory Rate 20 Blood Pressure 140/63 Pulse Oximetry 97 97 100 Intake & Output 09/05/18 09/05/18 09/06/18 06:59 18:59 06:59 Intake Total 590 / 590 590 / 590 450 / 450 Output Total 100 / 100 25 / 25 Balance 490 / 490 565 / 565 450 / 450 Weight 77.5 kg Intake: IV 150 / 150 190 / 190 50 / 50 Protonix Inj 80 MG In NS Inj 100 / 100 90 / 90 100 ML @ 10 mls/hr IV.CONT CONT NASREEN Rx#:[id number] Zosyn 2.25 GM Premix 2.25 gm In 50 / 50 100 / 100 50 / 50 50 ml @ 100 mls/hr IV.SIG Q8H NASREEN Rx#:[id number] Oral 440 / 440 350 / 350 Anesthesia Amount 50 / 50 Intake (Blood Product) Amt 400 / 400 Rbc As-3 Leukoreduced Unit 400 / 400 [id number] Output: Urine 100 / 100 25 / 25 Other: Date of Last Bowel Movement 09/03/18 09/03/18 09/03/18 Weight On Admission 79.37 kg Narrative: GENERAL: Well-nourished, well-developed patient who has pain in the left hip. SKIN: Warm and dry. HEAD: Normocephalic. EYES: No scleral icterus. No injection or drainage. NECK: Supple, trachea midline. No JVD or lymphadenopathy. CARDIOVASCULAR: Regular rate and rhythm without murmurs, gallops, or rubs. RESPIRATORY: Breath sounds equal bilaterally. No accessory muscle use. GASTROINTESTINAL: Abdomen soft, non-tender, nondistended. EXTREMITIES: Muscle wasting present NEUROLOGICAL: Awake, alert, and oriented x 3. Non-focal. Results 09/05/18 04:41 09/05/18 04:41 Cardiac Enzymes 09/04/18 09/04/18 09/05/18 Range/Units 06:16 12:44 04:41 AST 657 H 189 H (15-37) U/L CK-MB (CK-2) 30.9 H 6.7 H (0.5-3.6) ng/mL Troponin I 36.60 H* Greater than 40.00 H* (0.02-0.05) ng/mL 09/05/18 09/05/18 Range/Units 04:41 14:27 AST (15-37) U/L CK-MB (CK-2) (0.5-3.6) ng/mL Troponin I 28.40 H* 18.70 H* (0.02-0.05) ng/mL Coagulation 09/05/18 Range/Units 04:41 PT 17.7 H (9.8-11.6) sec Lipids 09/04/18 Range/Units 06:16 Triglycerides 166 H (42-150) mg/dL Cholesterol 107 L (120-200) mg/dL HDL Cholesterol 33.6 L (40.0-60.0) mg/dL Cholesterol/HDL Ratio 3.18 Ratio CBC 09/04/18 09/04/18 09/04/18 Range/Units 06:16 12:44 18:04 WBC 8.6 (4.0-11.0) th/mm3 RBC 3.14 L (4.50-5.90) mil/mm3 Hgb 9.6 L D 8.4 L 8.2 L (13.0-17.0) gm/dL Hct 28.1 L 24.0 L 24.2 L (39.0-51.0) % Plt Count 145 L (150-450) th/mm3 Neut # (Auto) 5.6 (1.8-7.7) th/mm3 Lymph # (Auto) 2.6 (1.0-4.8) th/mm3 Butts # (Auto) 0.3 (0.0-0.9) th/mm3 Eos # (Auto) 0.0 (0.0-0.4) th/mm3 Baso # (Auto) 0.0 (0.0-0.2) th/mm3 09/05/18 Range/Units 04:41 WBC 8.1 (4.0-11.0) th/mm3 RBC 2.93 L (4.50-5.90) mil/mm3 Hgb 8.9 L (13.0-17.0) gm/dL Hct 25.7 L (39.0-51.0) % Plt Count 136 L (150-450) th/mm3 Neut # (Auto) 5.3 (1.8-7.7) th/mm3 Lymph # (Auto) 2.3 (1.0-4.8) th/mm3 Butts # (Auto) 0.5 (0.0-0.9) th/mm3 Eos # (Auto) 0.0 (0.0-0.4) th/mm3 Baso # (Auto) 0.0 (0.0-0.2) th/mm3 Comprehensive Metabolic Panel 09/04/18 09/05/18 Range/Units 06:16 04:41 Sodium 139 141 (136-145) meq/L Potassium 5.1 3.4 L D (3.5-5.1) meq/L Chloride 107 103 (98-107) meq/L Carbon Dioxide 19.9 L 27.2 (21.0-32.0) meq/L BUN 38 H 26 H (7-18) mg/dL Creatinine 4.72 H 3.51 H (0.60-1.30) mg/dL Calcium 7.7 L 7.6 L (8.5-10.1) mg/dL AST 657 H 189 H (15-37) U/L ALT 111 H 65 (12-78) U/L Alkaline Phosphatase 1938 H 1610 H (45-117) U/L Total Protein 6.5 D 5.8 L D (6.4-8.2) g/dL Albumin 2.8 L 2.4 L (3.4-5.0) g/dL Intake and Output 09/05/18 09/05/18 09/06/18 14:59 22:59 06:59 Intake Total 190 / 190 850 / 850 Output Total 25 / 25 Balance 190 / 190 825 / 825 Intake: IV 140 / 140 100 / 100 Protonix Inj 80 MG In NS Inj 90 / 90 100 ML @ 10 mls/hr IV.CONT CONT NASREEN Rx#:[id number] Zosyn 2.25 GM Premix 2.25 gm In 50 / 50 100 / 100 50 ml @ 100 mls/hr IV.SIG Q8H NASREEN Rx#:[id number] Oral 350 / 350 Anesthesia Amount 50 / 50 Intake (Blood Product) Amt 400 / 400 Rbc As-3 Leukoreduced Unit 400 / 400 [id number] Output: Urine 25 / 25 Other: Date of Last Bowel Movement 09/03/18 09/03/18 Assessment and Plan - Assessment (1) Elevated troponin Code(s): R74.8 - Abnormal levels of other serum enzymes Status: Acute Plan: as detailed in my note yesterday, likely has underlying cad though unclear if truly nstemi vs symptomatic anemia (2) GI (gastrointestinal bleed) Code(s): K92.2 - Gastrointestinal hemorrhage, unspecified Status: Acute Plan: ok for colonoscopy/egd (noting somewhat higher risk due to potential cardiac ischemia); cath would likely require anticoagulation so need to make sure no active bleeding prior. (3) Anemia Code(s): D64.9 - Anemia, unspecified Status: Acute (4) NSTEMI (non-ST elevated myocardial infarction) Code(s): I21.4 - Non-ST elevation (NSTEMI) myocardial infarction Status: Acute Plan: for now asa held due to gi bleed; statin held due to elevated LFTs; added bb. (5) End stage renal disease Code(s): N18.6 - End stage renal disease Status: Chronic - Plan 1) Significant anemia EGD negative for bleeding source Most likely needs Cscope before proceeding with cardiac catheterization to rule out as a source of anemia Hemoglobin currently stable Multiple episodes of Hgb decreasing to 6 range over past 2 years with unidentified source 2) NSTEMI Possible symptomatic anemia Most likely has underlying CAD Will consider catheterization, even diagnostic depending on condition, but GI source of bleed should be ruled out first as intervention would need anticoagulation/DAPT 3) Metastatic prostate cancer (3) Anemia Qualifiers: Anemia type: due to chronic kidney disease Chronic kidney disease stage: on chronic dialysis Qualified Code(s): N18.6 - End stage renal disease; D63.1 - Anemia in chronic kidney disease; Z99.2 - Dependence on renal dialysis
[2018-09-06] MEDS: Pantoprazole Inj 40 MG Vial IV.PUSH SCH ×2 (02:08→14:35)
[2018-09-06 04:34] LABS: Free PSA/PSA Ratio 0 ratio
[2018-09-06 04:46] LABS: Baso % (Auto) 0.4 % (0.0-2.0); Eos % (Auto) 0.3 % (0.0-4.0); Hematocrit 24.8 % (39.0-51.0); Hemoglobin 8.1 gm/dL (13.0-17.0); Lymph # (Auto) 2.4 th/mm3 (1.0-4.8); Lymph % (Auto) 34.1 % (9.0-44.0); Mean Corpuscular HGB Conc 32.7 % (32.0-36.0); Mean Corpuscular Hemoglobin 29.4 pg (27.0-34.0); Mean Corpuscular Volume 89.8 fL (80.0-100.0); Mean Platelet Volume 7.6 fL (7.0-11.0); Mono # (Auto) 0.5 th/mm3 (0.0-0.9); Mono % (Auto) 6.8 % (0.0-8.0); Neut % (Auto) 58.4 % (16.0-70.0); Platelet Count 111 th/mm3 (150-450); Red Blood Count 2.76 mil/mm3 (4.50-5.90); White Blood Count 6.9 th/mm3 (4.0-11.0)
[2018-09-06 05:17] LABS: Calcium 7.3 mg/dL (8.5-10.1); Carbon Dioxide 25.1 meq/L (21.0-32.0); Magnesium 1.8 mg/dL (1.5-2.5); Phosphorus 2.5 mg/dL (2.5-4.9); Potassium 3.6 meq/L (3.5-5.1); Total Protein 5.2 g/dL (6.4-8.2)
[2018-09-06] MEDS: Chlorhexidine Gluconate 2% 1 Pack (2 Cloths) TOPICAL SCH (05:47)
[2018-09-06] MEDS: Piperacil/Tazo 2.25 GM Premix 2.25 GM/50 ML PIGGYBACK IV.SIG SCH ×3 (05:50→21:58)
[2018-09-06] MEDS: metroNIDAZOLE 500 MG Tablet PO SCH ×3 (05:50→21:58)
[2018-09-06] MEDS: Senna/Docusate Sodium 8.6/50 MG Tablet PO SCH ×2 (08:37→21:33)
--- NOTE | 2018-09-06 09:53 | P.PNIM ---
Subjective Interval history: Patient does not feel well today. EGD did not reveal any source of bleeding. Colonoscopy pending but patient has not been able to drink much of his oral contrast. He says he does not have an appetite. Hemoglobin is trended from 8.9 yesterday to 8.1 today. Physical Exam Vital signs: Last Vital Signs Temp 98.5 F 09/06/18 08:00 Pulse 83 09/06/18 09:15 Resp 19 09/06/18 04:56 BP 141/71 H 09/06/18 09:15 Pulse Ox 99 09/06/18 09:15 Intake & Output 09/04/18 09/05/18 09/06/18 09/07/18 06:59 06:59 06:59 06:59 Intake Total 650 / 650 1440 / 1440 1520 / 1520 50 / 50 Output Total 2110 / 2110 275 / 275 Balance 650 / 650 -670 / -670 1245 / 1245 50 / 50 Weight 79.379 kg 77.5 kg 75 kg Narrative: GENERAL: NAD, A&Ox3 HEAD: Normocephalic. NECK: Supple, trachea midline. No lymphadenopathy. EYES: No scleral icterus. No injection or drainage. CARDIOVASCULAR: Regular rate and rhythm without murmurs, gallops, or rubs. RESPIRATORY: Breath sounds equal bilaterally. No accessory muscle use. GASTROINTESTINAL: Abdomen soft, non-tender, nondistended. MUSCULOSKELETAL: No cyanosis, or edema. SKIN: Warm and dry. NEURO: No focal neurological deficits. Results Labs CBC & Chem 7: 09/06/18 03:53 09/06/18 03:53 Labs: Microbiology 09/03/18 13:11 Nasal Wash Influenza Types A,B Antigen - Final Negative for FLU A and B antigen Infection due to influenza A or B cannot be ruled out since the antigen present in the sample may be below the detection limit of the test. 09/03/18 12:30 Blood - Peripheral Aerobic Blood Culture - Preliminary No growth in 2 days 09/03/18 12:30 Blood - Peripheral Anaerobic Blood Culture - Preliminary No growth in 2 days 09/03/18 12:35 Blood - Peripheral Aerobic Blood Culture - Preliminary No growth in 2 days 09/03/18 12:35 Blood - Peripheral Anaerobic Blood Culture - Preliminary No growth in 2 days Assessment and Plan (1) End stage renal disease: Code(s): N18.6 - End stage renal disease Status: Chronic (2) Anemia: Code(s): D64.9 - Anemia, unspecified Status: Acute (3) Joint pain: Code(s): M25.50 - Pain in unspecified joint Status: Deleted (4) Dyspnea: Code(s): R06.00 - Dyspnea, unspecified Status: Acute (5) Prostate cancer metastatic to bone: Code(s): C61 - Malignant neoplasm of prostate; C79.51 - Secondary malignant neoplasm of bone Status: Chronic Plan 63yM presenting with type II NSTEMI secondary to acute blood loss anemia/ suspected recurrent lower GI bleed GI bleed Gastroenterology following EGD shows no significant source of bleed Colonoscopy pending Follow CBC Transfuse again as needed Type II NSTEMI Cardiology following Follow on telemetry Hyperlipidemia Continue present treatment Follow as an outpatient Nicotine dependence Cessation recommended Metastatic prostate cancer Continue as needed pain treatments Potentially contributory to blood loss Continue Flomax Bilateral pleural effusions Right greater than left Dyspnea Continue incentive spirometry Continue as needed duo nebs Acute hyperkalemia End-stage renal disease Hemodialysis dependence Continue dialysis Nephrology following Follow potassium levels Kayexalate as needed DVT prophylaxis SCDs Progress Note: Quality VTE Deep Vein Thrombosis/Pulmonary Embolism Present on Admission: No _ (1) Anemia Qualifiers: Anemia type: due to chronic kidney disease Bone marrow failure anemia type: Chronic kidney disease stage: on chronic dialysis Folate deficiency anemia type: Hemolytic anemia type: Iron deficiency anemia type: Other causes of anemia: Vitamin B12 deficiency anemia type: Qualified Code(s): N18.6 - End stage renal disease; D63.1 - Anemia in chronic kidney disease; Z99.2 - Dependence on renal dialysis (2) Joint pain Qualifiers: Joint pain location: hip Laterality: left Qualified Code(s): M25.552 - Pain in left hip (3) Dyspnea Qualifiers: Dyspnea type: shortness of breath Qualified Code(s): R06.02 - Shortness of breath; R06.00 - Dyspnea, unspecified; R06.01 - Orthopnea
[2018-09-06] MEDS: Metoprolol Tartrate 25 MG Tablet PO SCH ×2 (11:57→21:33)
--- NOTE | 2018-09-06 14:42 | P.PNCA ---
Subjective Interval history: No events overnight Unable to tolerate prep for colonoscopy today Medications and Allergies Active Medications: Active Medications Acetaminophen (Tylenol) 650 mg PO UNSCH PRN PRN Reason: SEE LABEL COMMENTS Al Hydroxide/Mg Hydroxide (Milk Of Yaritza Conde) 30 ml PO Q12H PRN PRN Reason: Mild Constipation Albuterol (Albuterol Neb (Prn)) 2.5 mg NEB Q2HR NEB PRN PRN Reason: SHORTNESS OF BREATH Albuterol (Duoneb Neb (Nasreen)) 1 ampul NEB Q6HR NEB NASREEN Last Admin: 09/06/18 11:19 Dose: Not Given Bisacodyl (Dulcolax Supp) 10 mg RECTAL DAILY PRN PRN Reason: SEVERE CONSITIPATION Chlorhexidine Gluconate (Chlorhexidine 2% Cloth) 3 pack TOPICAL DAILY@0400 NASREEN Stop: 09/09/18 03:59 Last Admin: 09/06/18 05:47 Dose: Not Given Chlorhexidine Gluconate (Chlorhexidine 2% Cloth) 3 pack TOPICAL DAILY@0400 PRN PRN Reason: Extra cloth needed Stop: 09/09/18 03:59 Clonidine HCl (Catapres) 0.1 mg PO UNSCH PRN PRN Reason: SEE LABEL COMMENTS Diphenhydramine HCl (Benadryl) 25 mg PO UNSCH PRN PRN Reason: SEE LABEL COMMENTS Epoetin Hermes (Epogen Inj) 10,000 unit IV.PUSH UNSCH PRN PRN Reason: SEE LABEL COMMENTS Gelatin (Gelfoam 12 Mm/7 Mm Topical) 1 foam TOPICAL PRN PRN PRN Reason: help stop bleeding from site Gentamicin Sulfate (Gentamicin Inj) 20 mg OTHER WITH DIALYSIS PRN PRN Reason: Dwell Gentamycin Lock Last Admin: 09/04/18 12:51 Dose: 20 mg Heparin Sodium (Porcine) (Heparin Inj) 8,000 units OTHER WITH DIALYSIS PRN PRN Reason: for machine prime Heparin Sodium (Porcine) (Heparin Inj) 1,000 units OTHER WITH DIALYSIS PRN PRN Reason: Dwell Heparin to Fill Catheter Last Admin: 09/04/18 12:51 Dose: 1,000 units Piperacillin/Tazobactam/Dextrose (Zosyn 2.25 Gm Premix) 2.25 gm in 50 mls @ 100 mls/hr IV.SIG Q8H NASREEN Last Admin: 09/06/18 14:35 Dose: 100 mls/hr Albumin Human (Flexbumin 25% Inj) 100 mls @ 60 mls/hr IV.SIG WITH DIALYSIS PRN PRN Reason: hypotension / volume replace Sodium Chloride (Ns Inj) 1,000 mls @ 0 mls/hr OTHER .Q0M PRN PRN Reason: for prime and rinse back Sodium Chloride (Ns Inj) 1,000 mls @ 0 mls/hr IV.CONT .Q0M PRN PRN Reason: hypotension / volume replace Sodium Chloride (Ns Inj) 1,000 mls @ 200 mls/hr OTHER .Q5H PRN PRN Reason: for dialyzer flush PRN Lactulose (Lactulose Liq) 30 ml PO DAILY PRN PRN Reason: SEVERE CONSITIPATION Mannitol (Mannitol Inj) 12.5 gm IV.PUSH UNSCH PRN PRN Reason: hypotension / volume replace Metoprolol Tartrate (Lopressor) 12.5 mg PO BID [facility] Last Admin: 09/06/18 11:57 Dose: 12.5 mg Metronidazole (Flagyl) 500 mg PO Q8HR [facility] Last Admin: 09/06/18 14:35 Dose: 500 mg Nicotine (Habitrol 7 Mg Patch.24 Hr) 1 patch T-DERMAL DAILY [facility] Last Admin: 09/06/18 08:36 Dose: Not Given Nitroglycerin (Nitrostat Sl) 0.4 mg SL Q5M PRN PRN Reason: CHEST PAIN Ondansetron HCl (Zofran Inj) 4 mg IV.PUSH UNSCH PRN PRN Reason: NAUSEA OR VOMITING Oxycodone/Acetaminophen (Percocet 5/325 Mg) 1 tab PO Q6H PRN PRN Reason: PAIN SCALE 1 TO 10 Last Admin: 09/06/18 08:45 Dose: 1 tab Pantoprazole Sodium (Protonix Inj) 40 mg IV.PUSH Q12H [facility] Last Admin: 09/06/18 14:35 Dose: 40 mg Patch Removal (Remove Old Patch) 1 each T-DERMAL DAILY [facility] Last Admin: 09/06/18 08:38 Dose: Not Given Senna/Docusate Sodium (Negin-Colace) 1 tab PO BID [facility] Last Admin: 09/06/18 08:37 Dose: Not Given Sennosides (Senokot) 17.2 mg PO Q12H PRN PRN Reason: Moderate Constipation Sodium Chloride (Ns Flush) 2 ml IV.FLUSH PRN PRN PRN Reason: FLUSH AFTER USING IV ACCESS Last Admin: 09/06/18 08:37 Dose: 2 ml Sodium Chloride (Ns Flush) 2 ml IV.FLUSH BID [facility] Last Admin: 09/06/18 08:37 Dose: 2 ml Sodium Chloride (Ns Flush) 5 ml IV.FLUSH PRN PRN PRN Reason: flush each lumen during HD Tamsulosin HCl (Flomax) 0.4 mg PO DAILY [facility] Last Admin: 09/06/18 08:36 Dose: 0.4 mg Allergies Allergy/AdvReac Type Severity Reaction Status Date / Time Tetanus Vaccines and Toxoid Allergy Severe Fever Verified 08/13/18 15:46 amoxicillin AdvReac Mild Nausea/Vomi Verified 08/13/18 15:46 ting Home Medications Medication Instructions Recorded Confirmed Type bicalutamide 50 mg PO HS 07/09/18 09/03/18 History tamsulosin [Flomax] 0.4 mg PO DAILY 07/09/18 09/03/18 History Physical Exam Vital signs: Vital Signs 09/05/18 16:00 09/05/18 16:01 09/05/18 16:05 Temperature 98.6 F Pulse Rate 73 72 Respiratory Rate 20 16 18 Blood Pressure 119/55 L Pulse Oximetry 90 L 09/05/18 19:00 09/05/18 20:00 09/05/18 21:00 Temperature 98.1 F Pulse Rate 79 74 73 Respiratory Rate Blood Pressure 106/57 L 109/57 L 112/58 L Pulse Oximetry 98 99 98 09/05/18 21:07 09/05/18 21:08 09/05/18 22:00 Temperature Pulse Rate 77 80 Respiratory Rate 20 Blood Pressure 140/63 Pulse Oximetry 97 97 100 09/05/18 23:00 09/06/18 00:00 09/06/18 01:00 Temperature 98.2 F Pulse Rate 81 75 76 Respiratory Rate 16 Blood Pressure 124/60 113/62 123/58 L Pulse Oximetry 94 L 100 99 09/06/18 02:00 09/06/18 03:00 09/06/18 04:00 Temperature 98.2 F Pulse Rate 77 74 78 Respiratory Rate 16 Blood Pressure 134/61 116/58 L 120/66 Pulse Oximetry 99 99 99 09/06/18 04:56 09/06/18 05:00 09/06/18 06:00 Temperature Pulse Rate 80 76 77 Respiratory Rate 19 Blood Pressure 126/60 121/59 L Pulse Oximetry 98 100 96 09/06/18 07:00 09/06/18 08:00 09/06/18 08:03 Temperature 98.5 F Pulse Rate 74 76 80 Respiratory Rate Blood Pressure 121/59 L 95/60 L Pulse Oximetry 97 98 100 09/06/18 08:16 09/06/18 08:30 09/06/18 08:45 Temperature Pulse Rate 79 79 86 Respiratory Rate Blood Pressure 127/60 127/61 131/67 Pulse Oximetry 100 100 100 09/06/18 09:00 09/06/18 09:15 09/06/18 09:30 Temperature Pulse Rate 82 83 81 Respiratory Rate Blood Pressure 146/65 H 141/71 H 127/66 Pulse Oximetry 97 99 98 09/06/18 09:45 09/06/18 10:00 09/06/18 10:15 Temperature Pulse Rate 79 77 76 Respiratory Rate Blood Pressure 118/59 L 133/56 L 134/60 Pulse Oximetry 99 99 100 09/06/18 10:30 09/06/18 10:45 09/06/18 11:00 Temperature Pulse Rate 79 75 77 Respiratory Rate Blood Pressure 123/59 L 116/58 L 141/60 H Pulse Oximetry 99 100 100 09/06/18 11:19 09/06/18 12:00 09/06/18 12:01 Temperature 98.1 F Pulse Rate 79 78 Respiratory Rate 18 Blood Pressure 124/60 Pulse Oximetry 98 98 99 09/06/18 13:00 09/06/18 14:00 Temperature Pulse Rate 68 71 Respiratory Rate Blood Pressure 118/56 L Pulse Oximetry 99 Intake & Output 09/05/18 09/06/18 09/06/18 18:59 06:59 18:59 Intake Total 590 / 590 930 / 930 50 / 50 Output Total 25 / 25 250 / 250 1999 / 1999 Balance 565 / 565 680 / 680 -1952 / -1950 Weight 75 kg Intake: IV 190 / 190 50 / 50 50 / 50 Protonix Inj 80 MG In NS Inj 90 / 90 100 ML @ 10 mls/hr IV.CONT CONT NASREEN Rx#:[id number] Zosyn 2.25 GM Premix 2.25 gm In 100 / 100 50 / 50 50 / 50 50 ml @ 100 mls/hr IV.SIG Q8H NASREEN Rx#:[id number] Oral 350 / 350 480 / 480 Anesthesia Amount 50 / 50 Intake (Blood Product) Amt 400 / 400 Rbc As-3 Leukoreduced Unit 400 / 400 [id number] Output: Urine 25 / 25 250 / 250 Hemodialysis Amount 1999 Other: Date of Last Bowel Movement 09/03/18 09/03/18 09/06/18 # Bowel Movements 0 Narrative: GENERAL: NAD, A&Ox3 HEAD: Normocephalic. NECK: Supple, trachea midline. No lymphadenopathy. EYES: No scleral icterus. No injection or drainage. CARDIOVASCULAR: Regular rate and rhythm without murmurs, gallops, or rubs. RESPIRATORY: Breath sounds equal bilaterally. No accessory muscle use. GASTROINTESTINAL: Abdomen soft, non-tender, nondistended. MUSCULOSKELETAL: No cyanosis, or edema. SKIN: Warm and dry. NEURO: No focal neurological deficits. Results 09/06/18 03:53 09/06/18 03:53 Cardiac Enzymes 09/05/18 09/05/18 09/05/18 Range/Units 04:41 04:41 14:27 AST 189 H (15-37) U/L CK-MB (CK-2) 6.7 H (0.5-3.6) ng/mL Troponin I 28.40 H* 18.70 H* (0.02-0.05) ng/mL 09/06/18 Range/Units 03:53 AST 107 H (15-37) U/L CK-MB (CK-2) (0.5-3.6) ng/mL Troponin I (0.02-0.05) ng/mL Coagulation 09/05/18 Range/Units 04:41 PT 17.7 H (9.8-11.6) sec CBC 09/04/18 09/05/18 09/06/18 Range/Units 18:04 04:41 03:53 WBC 8.1 6.9 (4.0-11.0) th/mm3 RBC 2.93 L 2.76 L (4.50-5.90) mil/mm3 Hgb 8.2 L 8.9 L 8.1 L (13.0-17.0) gm/dL Hct 24.2 L 25.7 L 24.8 L (39.0-51.0) % Plt Count 136 L 111 L (150-450) th/mm3 Neut # (Auto) 5.3 4.0 (1.8-7.7) th/mm3 Lymph # (Auto) 2.3 2.4 (1.0-4.8) th/mm3 [place] # (Auto) 0.5 0.5 (0.0-0.9) th/mm3 Eos # (Auto) 0.0 0.0 (0.0-0.4) th/mm3 Baso # (Auto) 0.0 0.0 (0.0-0.2) th/mm3 Comprehensive Metabolic Panel 09/05/18 09/06/18 Range/Units 04:41 03:53 Sodium 141 142 (136-145) meq/L Potassium 3.4 L D 3.6 (3.5-5.1) meq/L Chloride 103 105 (98-107) meq/L Carbon Dioxide 27.2 25.1 (21.0-32.0) meq/L BUN 26 H 32 H (7-18) mg/dL Creatinine 3.51 H 3.97 H (0.60-1.30) mg/dL Calcium 7.6 L 7.3 L* (8.5-10.1) mg/dL AST 189 H 107 H (15-37) U/L ALT 65 49 (12-78) U/L Alkaline Phosphatase 1610 H 1207 H (45-117) U/L Total Protein 5.8 L D 5.2 L D (6.4-8.2) g/dL Albumin 2.4 L 2.0 L (3.4-5.0) g/dL Intake and Output 09/05/18 09/06/18 09/06/18 22:59 06:59 14:59 Intake Total 850 / 850 480 / 480 50 / 50 Output Total 25 / 25 250 / 250 1999 / 1999 Balance 825 / 825 230 / 230 -1952 / -1952 Intake: IV 100 / 100 50 / 50 Zosyn 2.25 GM Premix 2.25 gm In 100 / 100 50 / 50 50 ml @ 100 mls/hr IV.SIG Q8H NASREEN Rx#:[id number] Oral 350 / 350 480 / 480 Intake (Blood Product) Amt 400 / 400 Rbc As-3 Leukoreduced Unit 400 / 400 [id number] Output: Urine / 250 / 250 Hemodialysis Amount 1999 Other: Date of Last Bowel Movement 09/03/18 09/03/18 09/06/18 # Bowel Movements 0 Weight 75 kg Assessment and Plan - Assessment (1) Elevated troponin Code(s): R74.8 - Abnormal levels of other serum enzymes Status: Acute Plan: as detailed in my note yesterday, likely has underlying cad though unclear if truly nstemi vs symptomatic anemia (2) GI (gastrointestinal bleed) Code(s): K92.2 - Gastrointestinal hemorrhage, unspecified Status: Acute Plan: ok for colonoscopy/egd (noting somewhat higher risk due to potential cardiac ischemia); cath would likely require anticoagulation so need to make sure no active bleeding prior. (3) Anemia Code(s): D64.9 - Anemia, unspecified Status: Acute (4) NSTEMI (non-ST elevated myocardial infarction) Code(s): I21.4 - Non-ST elevation (NSTEMI) myocardial infarction Status: Acute Plan: for now asa held due to gi bleed; statin held due to elevated LFTs; added bb. (5) End stage renal disease Code(s): N18.6 - End stage renal disease Status: Chronic - Plan 1) Significant anemia EGD negative for bleeding source For Cscope today, but unable to take prep Will prefer before cardiac catheterization Multiple episodes of Hgb decreasing to 6 range over past 2 years with unidentified source 2) NSTEMI Possible symptomatic anemia Most likely has underlying CAD Will consider catheterization, even diagnostic depending on condition, but GI source of bleed should be ruled out first as intervention would need anticoagulation/DAPT 3) Metastatic prostate cancer 4) Unsure patient understands the gravity of the situation The necessity of the prep for the cscope and eventual cath (3) Anemia Qualifiers: Anemia type: due to chronic kidney disease Chronic kidney disease stage: on chronic dialysis Qualified Code(s): N18.6 - End stage renal disease; D63.1 - Anemia in chronic kidney disease; Z99.2 - Dependence on renal dialysis
--- NOTE | 2018-09-06 14:46 | P.PNGI ---
Subjective Interval history: Patient sitting up in bed Hemodialysis in progress this a.m. Patient refusing to drink GoLYTELY prep overnight Patient agreeing at this time to drink GoLYTELY prep for colonoscopy tomorrow <Nancy Patterson - Last Filed: 09/06/18 14:40> Physical Exam Vital signs: Vital Signs 09/05/18 16:00 09/05/18 16:01 09/05/18 16:05 Temperature 98.6 F Pulse Rate 73 72 Respiratory Rate 20 16 18 Blood Pressure 119/55 L Pulse Oximetry 90 L 09/05/18 19:00 09/05/18 20:00 09/05/18 21:00 Temperature 98.1 F Pulse Rate 79 74 73 Respiratory Rate Blood Pressure 106/57 L 109/57 L 112/58 L Pulse Oximetry 98 99 98 09/05/18 21:07 09/05/18 21:08 09/05/18 22:00 Temperature Pulse Rate 77 80 Respiratory Rate 20 Blood Pressure 140/63 Pulse Oximetry 97 97 100 09/05/18 23:00 09/06/18 00:00 09/06/18 01:00 Temperature 98.2 F Pulse Rate 81 75 76 Respiratory Rate 16 Blood Pressure 124/60 113/62 123/58 L Pulse Oximetry 94 L 100 99 09/06/18 02:00 09/06/18 03:00 09/06/18 04:00 Temperature 98.2 F Pulse Rate 77 74 78 Respiratory Rate 16 Blood Pressure 134/61 116/58 L 120/66 Pulse Oximetry 99 99 99 09/06/18 04:56 09/06/18 05:00 09/06/18 06:00 Temperature Pulse Rate 80 76 77 Respiratory Rate 19 Blood Pressure 126/60 121/59 L Pulse Oximetry 98 100 96 09/06/18 07:00 09/06/18 08:00 09/06/18 08:03 Temperature 98.5 F Pulse Rate 74 76 80 Respiratory Rate Blood Pressure 121/59 L 95/60 L Pulse Oximetry 97 98 100 09/06/18 08:16 09/06/18 08:30 09/06/18 08:45 Temperature Pulse Rate 79 79 86 Respiratory Rate Blood Pressure 127/60 127/61 131/67 Pulse Oximetry 100 100 100 09/06/18 09:00 09/06/18 09:15 12/19/18 09:30 Temperature Pulse Rate 82 83 81 Respiratory Rate Blood Pressure 146/65 H 141/71 H 127/66 Pulse Oximetry 97 99 98 09/06/18 09:45 09/06/18 10:00 09/06/18 10:15 Temperature Pulse Rate 79 77 76 Respiratory Rate Blood Pressure 118/59 L 133/56 L 134/60 Pulse Oximetry 99 99 100 09/06/18 10:30 09/06/18 10:45 09/06/18 11:00 Temperature Pulse Rate 79 75 77 Respiratory Rate Blood Pressure 123/59 L 116/58 L 141/60 H Pulse Oximetry 99 100 100 09/06/18 11:19 09/06/18 12:00 09/06/18 12:01 Temperature 98.1 F Pulse Rate 79 78 Respiratory Rate 18 Blood Pressure 124/60 Pulse Oximetry 98 98 99 09/06/18 13:00 09/06/18 14:00 Temperature Pulse Rate 68 71 Respiratory Rate Blood Pressure 118/56 L Pulse Oximetry 99 Intake & Output 09/05/18 09/06/18 09/06/18 18:59 06:59 18:59 Intake Total 590 / 590 930 / 930 50 / 50 Output Total 25 / 25 250 / 250 1999 Balance 565 / 565 680 / 680 -1950 / -1952 Weight 75 kg Intake: IV 190 / 190 50 / 50 50 / 50 Protonix Inj 80 MG In NS Inj 90 / 90 100 ML @ 10 mls/hr IV.CONT CONT CYNDIE Rx#:[id number] Zosyn 2.25 GM Premix 2.25 gm In 100 / 100 50 / 50 50 / 50 50 ml @ 100 mls/hr IV.SIG Q8H CYNDIE Rx#:[id number] Oral 350 / 350 480 / 480 Anesthesia Amount 50 / 50 Intake (Blood Product) Amt 400 / 400 Rbc As-3 Leukoreduced Unit 400 / 400 [id number] Output: Urine 25 / 25 250 / 250 Hemodialysis Amount 1999 Other: Date of Last Bowel Movement 09/03/18 09/03/18 09/06/18 # Bowel Movements 0 - Constitutional thin, chronically ill appearing - Routine HEENT Exam Head: Present: normocephalic - Routine Respiratory Exam Present: CTA bilaterally - Routine Cardiovascular Exam Present: RRR - Routine Abdominal Exam Present: soft, normoactive bowel sounds. Absent: tenderness, distended - Routine Skin Exam Present: dry, warm - Routine Neurological Exam Present: alert <Patterson,Nancy - Last Filed: 09/06/18 14:40> Vital signs: Vital Signs 09/06/18 10:15 09/06/18 10:30 09/06/18 10:45 Temperature Pulse Rate 76 79 75 Respiratory Rate Blood Pressure 134/60 123/59 L 116/58 L Pulse Oximetry 100 99 100 09/06/18 11:00 09/06/18 11:19 09/06/18 12:00 Temperature 98.1 F Pulse Rate 77 79 Respiratory Rate 18 Blood Pressure 141/60 H Pulse Oximetry 100 98 98 09/06/18 12:01 09/06/18 13:00 09/06/18 14:00 Temperature Pulse Rate 78 68 71 Respiratory Rate Blood Pressure 124/60 118/56 L 133/60 Pulse Oximetry 99 99 99 09/06/18 15:00 09/06/18 15:01 09/06/18 16:00 Temperature 98.2 F Pulse Rate 78 79 75 Respiratory Rate 18 Blood Pressure 141/76 H 128/60 Pulse Oximetry 96 89 L 97 09/06/18 17:00 09/06/18 18:00 09/06/18 19:00 Temperature Pulse Rate 78 74 71 Respiratory Rate Blood Pressure 120/56 L 121/59 L 135/58 L Pulse Oximetry 95 100 94 L 09/06/18 19:39 09/06/18 20:00 09/06/18 21:00 Temperature 99.1 F Pulse Rate 70 74 61 Respiratory Rate 15 18 Blood Pressure 144/64 H 118/58 L Pulse Oximetry 99 96 09/06/18 21:58 09/06/18 22:00 09/06/18 23:00 Temperature Pulse Rate 58 L 63 Respiratory Rate 18 Blood Pressure 110/58 L Pulse Oximetry 96 97 09/06/18 23:01 09/07/18 00:00 09/07/18 01:00 Temperature 98.8 F Pulse Rate 63 66 67 Respiratory Rate 20 Blood Pressure 129/60 122/60 129/70 Pulse Oximetry 97 99 97 09/07/18 02:00 09/07/18 03:00 09/07/18 03:01 Temperature Pulse Rate 65 79 74 Respiratory Rate Blood Pressure 131/63 Pulse Oximetry 93 L 99 100 09/07/18 04:00 09/07/18 06:00 09/07/18 08:00 Temperature 98.3 F 98 F Pulse Rate 61 66 64 Respiratory Rate 20 16 Blood Pressure 119/58 L 132/61 Pulse Oximetry 97 99 09/07/18 08:23 09/07/18 10:00 Temperature Pulse Rate 67 65 Respiratory Rate 18 Blood Pressure Pulse Oximetry Intake & Output 09/06/18 09/07/18 09/07/18 18:59 06:59 18:59 Intake Total 350 / 350 1250 / 1250 50 / 50 Output Total 2300 / 2300 200 / 200 Balance -1950 / -1950 1050 / 1050 50 / 50 Weight 72.5 kg Intake: IV 100 / 100 50 / 50 50 / 50 Zosyn 2.25 GM Premix 2.25 gm In 100 / 100 50 / 50 50 / 50 50 ml @ 100 mls/hr IV.SIG Q8H CYNDIE Rx#:[id number] Oral 250 / 250 1200 / 1200 Output: Urine 300 / 300 200 / 200 Hemodialysis Amount 1999 Other: Date of Last Bowel Movement 09/06/18 09/06/18 09/06/18 # Bowel Movements 6 8 <Samson Colon - Last Filed: 09/07/18 10:07> Results - Labs CBC & Chem 7: 09/06/18 03:53 09/06/18 03:53 Laboratory Results - last 24 hr 09/03/18 09/05/18 09/05/18 12:30 04:41 14:27 WBC RBC Hgb Hct MCV MCH MCHC RDW Plt Count MPV Neut % (Auto) Lymph % (Auto) [place] % (Auto) Eos % (Auto) Baso % (Auto) Neut # (Auto) Lymph # (Auto) [place] # (Auto) Eos # (Auto) Baso # (Auto) WBC Differential Differential Comment Sodium Potassium Chloride Carbon Dioxide Anion Gap BUN Creatinine Estimated GFR POC Glucose Random Glucose Calcium Calcium Adj for Albumin Phosphorus Magnesium Total Bilirubin AST ALT Alkaline Phosphatase Troponin I 18.70 H* Total Protein Albumin Free PSA Greater than 18.0 Total PSA 420.0 H PSA Free/Total Ratio 0 MTS Gel Crossmatch See Detail 09/05/18 09/05/18 09/06/18 16:31 19:42 03:53 WBC 6.9 RBC 2.76 L Hgb 8.1 L Hct 24.8 L MCV 89.8 MCH 29.4 MCHC 32.7 RDW 19.0 H Plt Count 111 L MPV 7.6 Neut % (Auto) 58.4 Lymph % (Auto) 34.1 [place] % (Auto) 6.8 Eos % (Auto) 0.3 Baso % (Auto) 0.4 Neut # (Auto) 4.0 Lymph # (Auto) 2.4 [place] # (Auto) 0.5 Eos # (Auto) 0.0 Baso # (Auto) 0.0 WBC Differential . Differential Comment Auto diff final Sodium Potassium Chloride Carbon Dioxide Anion Gap BUN Creatinine Estimated GFR POC Glucose 97 112 H Random Glucose Calcium Calcium Adj for Albumin Phosphorus Magnesium Total Bilirubin AST ALT Alkaline Phosphatase Troponin I Total Protein Albumin Free PSA Total PSA PSA Free/Total Ratio MTS Gel Crossmatch 09/06/18 03:53 WBC RBC Hgb Hct MCV MCH MCHC RDW Plt Count MPV Neut % (Auto) Lymph % (Auto) [place] % (Auto) Eos % (Auto) Baso % (Auto) Neut # (Auto) Lymph # (Auto) [place] # (Auto) Eos # (Auto) Baso # (Auto) WBC Differential Differential Comment Sodium 142 Potassium 3.6 Chloride 105 Carbon Dioxide 25.1 Anion Gap 12 BUN 32 H Creatinine 3.97 H Estimated GFR 15 L POC Glucose Random Glucose 112 H Calcium 7.3 L* Calcium Adj for Albumin 8.9 Phosphorus 2.5 Magnesium 1.8 Total Bilirubin 0.5 AST 107 H ALT 49 Alkaline Phosphatase 1207 H Troponin I Total Protein 5.2 L D Albumin 2.0 L Free PSA Total PSA PSA Free/Total Ratio MTS Gel Crossmatch Microbiology 09/03/18 12:30 Blood - Peripheral Aerobic Blood Culture - Preliminary No growth in 3 days 09/03/18 12:30 Blood - Peripheral Anaerobic Blood Culture - Preliminary No growth in 3 days 09/03/18 12:35 Blood - Peripheral Aerobic Blood Culture - Preliminary No growth in 3 days 09/03/18 12:35 Blood - Peripheral Anaerobic Blood Culture - Preliminary No growth in 3 days 09/03/18 13:11 Nasal Wash Influenza Types A,B Antigen - Final Negative for FLU A and B antigen Infection due to influenza A or B cannot be ruled out since the antigen present in the sample may be below the detection limit of the test. <Nancy Patterson - Last Filed: 09/06/18 14:40> - Labs CBC & Chem 7: 09/07/18 05:20 09/07/18 05:20 Laboratory Results - last 24 hr 09/07/18 09/07/18 05:20 05:20 WBC 7.9 RBC 2.86 L Hgb 8.5 L Hct 25.9 L MCV 90.6 MCH 29.6 MCHC 32.7 RDW 19.1 H Plt Count 105 L MPV 7.5 Neut % (Auto) 56.2 Lymph % (Auto) 36.0 [place] % (Auto) 6.9 Eos % (Auto) 0.4 Baso % (Auto) 0.5 Neut # (Auto) 4.4 Lymph # (Auto) 2.8 [place] # (Auto) 0.5 Eos # (Auto) 0.0 Baso # (Auto) 0.0 WBC Differential . Differential Comment Auto diff final Sodium 143 Potassium 3.3 L Chloride 104 Carbon Dioxide 28.2 Anion Gap 11 BUN 26 H Creatinine 3.11 H Estimated GFR 20 L Random Glucose 76 Calcium 8.0 L Total Bilirubin 0.6 AST 48 H ALT 31 Alkaline Phosphatase 1054 H Total Protein 5.2 L Albumin 2.0 L Microbiology 09/03/18 12:30 Blood - Peripheral Aerobic Blood Culture - Preliminary No growth in 3 days 09/03/18 12:30 Blood - Peripheral Anaerobic Blood Culture - Preliminary No growth in 3 days 09/03/18 12:35 Blood - Peripheral Aerobic Blood Culture - Preliminary No growth in 3 days 09/03/18 12:35 Blood - Peripheral Anaerobic Blood Culture - Preliminary No growth in 3 days <Samson Colon - Last Filed: 09/07/18 10:07> Assessment and Plan (1) Anemia Status: Acute Code(s): D64.9 - Anemia, unspecified - Plan This patient is a pleasant 63-year-old male with past medical history significant for end-stage renal disease, metastatic prostate cancer, anemia, hypertension. Surgical history significant for orthopedic surgery and placement of AV fistula. Patient presented to [facility] in [place] with report of shortness of breath on exertion and chest pain for 3 days. Upon admission, patient was noted to have a hemoglobin 6.2 hematocrit 19.8 lactic acid 5.0 troponin 13.3. Patient was transferred to [facility] in [place] for further evaluation. Patient denies abdominal pain, nausea or vomiting. Denies diarrhea or constipation. Patient denies any noted bleeding in stools. Patient denies difficulty swallowing or odynophagia. Denies any history of EGD or colonoscopy in the past. Our service has been consulted to evaluate patient for anemia, GI bleed Anemia GI bleed Patient endorses 3-day history of shortness of breath and generalized weakness. History of end-stage renal disease on hemodialysis every Tuesday and Tuesday History of metastatic prostate cancer Chest pain with elevated [id number] 09/03/2018 CT chest reveals following-. Widespread bony metastatic disease. Moderate bilateral pleural effusions worse on the right. Calcified left thyroid mass not changed since 2017. 09/03/2018 hemoglobin 6.2 hematocrit 19.8, posttransfusion 09/04/2018 hemoglobin 9.6 hematocrit 28.1 platelet count 145 INR 2.1 lactic acid 5.0 09/04/2018 lactic acid 1.1 calcium 7.7 total bilirubin 0.4 AST 657 ALT 111 alk phos 1938 troponin 36.60 09/06/2018 Anemia/GI bleed Colonoscopy held for today as patient did not complete GoLYTELY prep. Dr. Colon spoke with patient and patient is now agreeable to complete GoLYTELY prep for colonoscopy tomorrow. There has been no reported bleeding. Hemoglobin 8.1 hematocrit 24.8 stable platelet count 111 Plan -N.p.o. after midnight -Consent obtained for colonoscopy -Analgesics and antiemetics as per attending -PPI -Monitor for bleeding -Transfuse as needed -Notify GI for any active bleeding -NG tube if required for administration of GoLYTELY prep -Cardiology following, plan cardiac cath post GI evaluation -Supportive care -Further recommendations to follow This patient has been seen by myself and Dr. Colon and this note is written on his behalf - Attending Attestation Dr. Colon <Nancy Patterson - Last Filed: 09/06/18 14:40> (1) Anemia Status: Acute Code(s): D64.9 - Anemia, unspecified - Attending Attestation I have seen and examined the patient. I agree with the assessment and recommendations above. <Samson Colon - Last Filed: 09/07/18 10:07> <Samson Colon - Last Filed: 09/07/18 10:07> (1) Anemia Qualifiers: Anemia type: due to chronic kidney disease Chronic kidney disease stage: on chronic dialysis Qualified Code(s): N18.6 - End stage renal disease; D63.1 - Anemia in chronic kidney disease; Z99.2 - Dependence on renal dialysis
--- NOTE | 2018-09-06 17:40 | P.PNNP ---
Subjective Interval history: No acute events overnight. Hemodialysis today tolerated well. Prepping for GI procedure. <Yris Delong - Last Filed: 09/06/18 17:37> Physical Exam Vital signs: Vital Signs 09/05/18 19:00 09/05/18 20:00 09/05/18 21:00 Temperature 98.1 F Pulse Rate 79 74 73 Respiratory Rate Blood Pressure 106/57 L 109/57 L 112/58 L Pulse Oximetry 98 99 98 09/05/18 21:07 09/05/18 21:08 09/05/18 22:00 Temperature Pulse Rate 77 80 Respiratory Rate 20 Blood Pressure 140/63 Pulse Oximetry 97 97 100 09/05/18 23:00 09/06/18 00:00 09/06/18 01:00 Temperature 98.2 F Pulse Rate 81 75 76 Respiratory Rate 16 Blood Pressure 124/60 113/62 123/58 L Pulse Oximetry 94 L 100 99 09/06/18 02:00 09/06/18 03:00 09/06/18 04:00 Temperature 98.2 F Pulse Rate 77 74 78 Respiratory Rate 16 Blood Pressure 134/61 116/58 L 120/66 Pulse Oximetry 99 99 99 09/06/18 04:56 09/06/18 05:00 09/06/18 06:00 Temperature Pulse Rate 80 76 77 Respiratory Rate 19 Blood Pressure 126/60 121/59 L Pulse Oximetry 98 100 96 09/06/18 07:00 09/06/18 08:00 09/06/18 08:03 Temperature 98.5 F Pulse Rate 74 76 80 Respiratory Rate Blood Pressure 121/59 L 95/60 L Pulse Oximetry 97 98 100 09/06/18 08:16 09/06/18 08:30 09/06/18 08:45 Temperature Pulse Rate 79 79 86 Respiratory Rate Blood Pressure 127/60 127/61 131/67 Pulse Oximetry 100 100 100 09/06/18 09:00 09/06/18 09:15 09/06/18 09:30 Temperature Pulse Rate 82 83 81 Respiratory Rate Blood Pressure 146/65 H 141/71 H 127/66 Pulse Oximetry 97 99 98 09/06/18 09:45 09/06/18 10:00 09/06/18 10:15 Temperature Pulse Rate 79 77 76 Respiratory Rate Blood Pressure 118/59 L 133/56 L 134/60 Pulse Oximetry 99 99 100 12/19/18 10:30 09/06/18 10:45 09/06/18 11:00 Temperature Pulse Rate 79 75 77 Respiratory Rate Blood Pressure 123/59 L 116/58 L 141/60 H Pulse Oximetry 99 100 100 09/06/18 11:19 09/06/18 12:00 09/06/18 12:01 Temperature 98.1 F Pulse Rate 79 78 Respiratory Rate 18 Blood Pressure 124/60 Pulse Oximetry 98 98 99 09/06/18 13:00 09/06/18 14:00 09/06/18 15:00 Temperature Pulse Rate 68 71 78 Respiratory Rate Blood Pressure 118/56 L 133/60 Pulse Oximetry 99 99 96 09/06/18 15:01 09/06/18 16:00 Temperature 98.2 F Pulse Rate 79 75 Respiratory Rate 18 Blood Pressure 141/76 H 128/60 Pulse Oximetry 89 L 97 Intake & Output 09/05/18 09/06/18 09/06/18 18:59 06:59 18:59 Intake Total 590 / 590 930 / 930 100 / 100 Output Total 25 / 25 250 / 250 1999 Balance 565 / 565 680 / 680 -1900 / -1900 Weight 75 kg Intake: IV 190 / 190 50 / 50 100 / 100 Protonix Inj 80 MG In NS Inj 90 / 90 100 ML @ 10 mls/hr IV.CONT CONT CYNDIE Rx#:[id number] Zosyn 2.25 GM Premix 2.25 gm In 100 / 100 50 / 50 100 / 100 50 ml @ 100 mls/hr IV.SIG Q8H CYND[facility] Rx#:[id number] Oral 350 / 350 480 / 480 Anesthesia Amount 50 / 50 Intake (Blood Product) Amt 400 / 400 Rbc As-3 Leukoreduced Unit 400 / 400 [id number] Output: Urine 25 / 25 250 / 250 Hemodialysis Amount 1999 Other: Date of Last Bowel Movement 09/03/18 09/03/18 09/06/18 # Bowel Movements 0 Narrative: GENERAL: NAD, A&Ox3 HEAD: Normocephalic. NECK: Supple, trachea midline. CARDIOVASCULAR: Regular rate and rhythm without murmurs, gallops, or rubs. right IJ permacath. Left arm AVF with positive thrill and bruit. Bruising present. RESPIRATORY: Breath sounds equal bilaterally. No accessory muscle use. GASTROINTESTINAL: Abdomen soft, non-tender, nondistended. +BS MUSCULOSKELETAL: No cyanosis, or edema. SKIN: Warm and dry. <Yris Delong - Last Filed: 09/06/18 17:37> Vital signs: Vital Signs 09/05/18 23:00 09/06/18 00:00 09/06/18 01:00 Temperature 98.2 F Pulse Rate 81 75 76 Respiratory Rate 16 Blood Pressure 124/60 113/62 123/58 L Pulse Oximetry 94 L 100 99 09/06/18 02:00 09/06/18 03:00 09/06/18 04:00 Temperature 98.2 F Pulse Rate 77 74 78 Respiratory Rate 16 Blood Pressure 134/61 116/58 L 120/66 Pulse Oximetry 99 99 99 09/06/18 04:56 09/06/18 05:00 09/06/18 06:00 Temperature Pulse Rate 80 76 77 Respiratory Rate 19 Blood Pressure 126/60 121/59 L Pulse Oximetry 98 100 96 09/06/18 07:00 09/06/18 08:00 09/06/18 08:03 Temperature 98.5 F Pulse Rate 74 76 80 Respiratory Rate Blood Pressure 121/59 L 95/60 L Pulse Oximetry 97 98 100 09/06/18 08:16 09/06/18 08:30 09/06/18 08:45 Temperature Pulse Rate 79 79 86 Respiratory Rate Blood Pressure 127/60 127/61 131/67 Pulse Oximetry 100 100 100 09/06/18 09:00 09/06/18 09:15 09/06/18 09:30 Temperature Pulse Rate 82 83 81 Respiratory Rate Blood Pressure 146/65 H 141/71 H 127/66 Pulse Oximetry 97 99 98 09/06/18 09:45 09/06/18 10:00 09/06/18 10:15 Temperature Pulse Rate 79 77 76 Respiratory Rate Blood Pressure 118/59 L 133/56 L 134/60 Pulse Oximetry 99 99 100 09/06/18 10:30 09/06/18 10:45 09/06/18 11:00 Temperature Pulse Rate 79 75 77 Respiratory Rate Blood Pressure 123/59 L 116/58 L 141/60 H Pulse Oximetry 99 100 100 09/06/18 11:19 09/06/18 12:00 09/06/18 12:01 Temperature 98.1 F Pulse Rate 79 78 Respiratory Rate 18 Blood Pressure 124/60 Pulse Oximetry 98 98 99 09/06/18 13:00 09/06/18 14:00 09/06/18 15:00 Temperature Pulse Rate 68 71 78 Respiratory Rate Blood Pressure 118/56 L 133/60 Pulse Oximetry 99 99 96 09/06/18 15:01 09/06/18 16:00 09/06/18 17:00 Temperature 98.2 F Pulse Rate 79 75 78 Respiratory Rate 18 Blood Pressure 141/76 H 128/60 120/56 L Pulse Oximetry 89 L 97 95 09/06/18 18:00 09/06/18 19:00 09/06/18 19:39 Temperature Pulse Rate 74 71 70 Respiratory Rate 15 Blood Pressure 121/59 L 135/58 L Pulse Oximetry 100 94 L 09/06/18 20:00 09/06/18 21:00 09/06/18 21:58 Temperature 99.1 F Pulse Rate 74 61 Respiratory Rate 18 18 Blood Pressure 144/64 H 118/58 L Pulse Oximetry 99 96 Intake & Output 09/06/18 09/06/18 09/07/18 06:59 18:59 06:59 Intake Total 930 / 930 350 / 350 Output Total 250 / 250 2300 / 2300 Balance 680 / 680 -1950 / -1950 Weight 75 kg Intake: IV 50 / 50 100 / 100 Zosyn 2.25 GM Premix 2.25 gm In 50 / 50 100 / 100 50 ml @ 100 mls/hr IV.SIG Q8H [facility] Rx#:[id number] Oral 480 / 480 250 / 250 Intake (Blood Product) Amt 400 / 400 Rbc As-3 Leukoreduced Unit 400 / 400 [id number] Output: Urine 250 / 250 300 / 300 Hemodialysis Amount 1999 Other: Date of Last Bowel Movement 09/03/18 09/06/18 09/06/18 # Bowel Movements 0 6 <Dakota Roger Q - Last Filed: 09/06/18 22:22> Assessment and Plan - Assessment (1) End stage renal disease Code(s): N18.6 - End stage renal disease Status: Chronic (2) Anemia Code(s): D64.9 - Anemia, unspecified Status: Acute Qualifiers: Anemia type: due to chronic kidney disease Chronic kidney disease stage: on chronic dialysis Qualified Code(s): N18.6 - End stage renal disease; D63.1 - Anemia in chronic kidney disease; Z99.2 - Dependence on renal dialysis (3) Joint pain Code(s): M25.50 - Pain in unspecified joint Status: Deleted Qualifiers: Joint pain location: hip Laterality: left Qualified Code(s): M25.552 - Pain in left hip (4) Dyspnea Code(s): R06.00 - Dyspnea, unspecified Status: Acute Qualifiers: Dyspnea type: shortness of breath Qualified Code(s): R06.02 - Shortness of breath; R06.00 - Dyspnea, unspecified; R06.01 - Orthopnea (5) Prostate cancer metastatic to bone Code(s): C61 - Malignant neoplasm of prostate; C79.51 - Secondary malignant neoplasm of bone Status: Chronic - Plan As advanced metastatic prostate cancer increase alkaline phosphatase indicating bone metastasis Pain likely related to underlying cancer although he said oncologist did not find cancer on the left hip His PSA was 190 in Jun 2018, repeat pending Anemia GI is going to do endoscopy prepping now Epogen with dialysis Hemodialysis today with UF of 2 liters tolerated well. <Yris Delong - Last Filed: 09/06/18 17:37> - Assessment (1) End stage renal disease Code(s): N18.6 - End stage renal disease Status: Chronic (2) Anemia Code(s): D64.9 - Anemia, unspecified Status: Acute Qualifiers: Anemia type: due to chronic kidney disease Chronic kidney disease stage: on chronic dialysis Qualified Code(s): N18.6 - End stage renal disease; D63.1 - Anemia in chronic kidney disease; Z99.2 - Dependence on renal dialysis (3) Joint pain Code(s): M25.50 - Pain in unspecified joint Status: Deleted Qualifiers: Joint pain location: hip Laterality: left Qualified Code(s): M25.552 - Pain in left hip (4) Dyspnea Code(s): R06.00 - Dyspnea, unspecified Status: Acute Qualifiers: Dyspnea type: shortness of breath Qualified Code(s): R06.02 - Shortness of breath; R06.00 - Dyspnea, unspecified; R06.01 - Orthopnea (5) Prostate cancer metastatic to bone Code(s): C61 - Malignant neoplasm of prostate; C79.51 - Secondary malignant neoplasm of bone Status: Chronic - Plan Patient seen and examined, agree with above. Patient with advance metastatic prostrate cancer, and with end stage renal disease. HD done in AM, Follow Hgb. <Vance Roger - Last Filed: 09/06/18 22:22>
[2018-09-07] MEDS: Pantoprazole Inj 40 MG Vial IV.PUSH SCH ×2 (02:49→14:02)
[2018-09-07] MEDS: Chlorhexidine Gluconate 2% 1 Pack (2 Cloths) TOPICAL SCH (03:12)
[2018-09-07] MEDS: Piperacil/Tazo 2.25 GM Premix 2.25 GM/50 ML PIGGYBACK IV.SIG SCH ×3 (06:03→22:30)
[2018-09-07] MEDS: metroNIDAZOLE 500 MG Tablet PO SCH ×3 (06:03→21:01)
[2018-09-07 06:52] LABS: Baso % (Auto) 0.5 % (0.0-2.0); Eos % (Auto) 0.4 % (0.0-4.0); Hematocrit 25.9 % (39.0-51.0); Hemoglobin 8.5 gm/dL (13.0-17.0); Lymph # (Auto) 2.8 th/mm3 (1.0-4.8); Mean Corpuscular HGB Conc 32.7 % (32.0-36.0); Mean Corpuscular Hemoglobin 29.6 pg (27.0-34.0); Mean Corpuscular Volume 90.6 fL (80.0-100.0); Mean Platelet Volume 7.5 fL (7.0-11.0); Mono # (Auto) 0.5 th/mm3 (0.0-0.9); Mono % (Auto) 6.9 % (0.0-8.0); Neut # (Auto) 4.4 th/mm3 (1.8-7.7); Neut % (Auto) 56.2 % (16.0-70.0); Platelet Count 105 th/mm3 (150-450); Red Blood Count 2.86 mil/mm3 (4.50-5.90); Red Cell Distribution Width 19.1 % (11.6-17.2); White Blood Count 7.9 th/mm3 (4.0-11.0)
[2018-09-07 07:06] LABS: Alanine Aminotransferase 31 U/L (12-78); Anion Gap 11 meq/L (5-15); Aspartate Aminotransferase 48 U/L (15-37); Blood Urea Nitrogen 26 mg/dL (7-18); Carbon Dioxide 28.2 meq/L (21.0-32.0); Chloride 104 meq/L (98-107); Glomerular Filtration Rate 20 mL/min (>89); Glucose,Random 76 mg/dL (74-106); Potassium 3.3 meq/L (3.5-5.1); Sodium 143 meq/L (136-145)
[2018-09-07 07:23] LABS: Alkaline Phosphatase 1054 U/L (45-117); Total Protein 5.2 g/dL (6.4-8.2)
[2018-09-07] MEDS: Metoprolol Tartrate 25 MG Tablet PO SCH ×3 (08:32→21:00)
[2018-09-07] MEDS: Senna/Docusate Sodium 8.6/50 MG Tablet PO SCH ×2 (08:34→21:00)
[2018-09-07] MEDS ORDERED: Lidocaine PF 1% Inj 5 ML Syringe OTHER ONE (10:00)
[2018-09-07] MEDS ORDERED: Phenylephrine/NS 1000 MCG/10ML Syringe IV.PUSH ONE (10:00)
--- NOTE | 2018-09-07 11:16 | P.PNIM ---
Subjective Interval history: Worsening of hemoglobin level today. Renal function also history of slight improvement. No complaints from patient. Plan for colonoscopy today. Physical Exam Vital signs: Last Vital Signs Temp 98 F 09/07/18 08:00 Pulse 65 09/07/18 10:00 Resp 18 09/07/18 08:23 BP 132/61 09/07/18 08:00 Pulse Ox 99 09/07/18 08:00 Intake & Output 09/05/18 09/06/18 09/07/18 09/08/18 06:59 06:59 06:59 06:59 Intake Total 1440 / 1440 1520 / 1520 1600 / 1600 50 / 50 Output Total 2110 / 2110 275 / 275 2500 / 2500 Balance -670 / -670 1245 / 1245 -900 / -900 50 / 50 Weight 77.5 kg 75 kg 72.5 kg Narrative: GENERAL: NAD, A&Ox3 HEAD: Normocephalic. NECK: Supple, trachea midline. No lymphadenopathy. EYES: No scleral icterus. No injection or drainage. CARDIOVASCULAR: Regular rate and rhythm without murmurs, gallops, or rubs. RESPIRATORY: Breath sounds equal bilaterally. No accessory muscle use. GASTROINTESTINAL: Abdomen soft, non-tender, nondistended. MUSCULOSKELETAL: No cyanosis, or edema. SKIN: Warm and dry. NEURO: No focal neurological deficits. Results Labs CBC & Chem 7: 09/07/18 05:20 09/07/18 05:20 Labs: Microbiology 09/03/18 12:30 Blood - Peripheral Aerobic Blood Culture - Preliminary No growth in 4 days 09/03/18 12:30 Blood - Peripheral Anaerobic Blood Culture - Preliminary No growth in 4 days 09/03/18 12:35 Blood - Peripheral Aerobic Blood Culture - Preliminary No growth in 4 days 09/03/18 12:35 Blood - Peripheral Anaerobic Blood Culture - Preliminary No growth in 4 days Assessment and Plan (1) End stage renal disease: Code(s): N18.6 - End stage renal disease Status: Chronic (2) Anemia: Code(s): D64.9 - Anemia, unspecified Status: Acute (3) Joint pain: Code(s): M25.50 - Pain in unspecified joint Status: Deleted (4) Dyspnea: Code(s): R06.00 - Dyspnea, unspecified Status: Acute (5) Prostate cancer metastatic to bone: Code(s): C61 - Malignant neoplasm of prostate; C79.51 - Secondary malignant neoplasm of bone Status: Chronic Plan 63yM presenting with type II NSTEMI secondary to acute blood loss anemia/ suspected recurrent lower GI bleed Colonoscopy today. Based on colonoscopy findings, heart may be catheterization planned later. GI bleed Gastroenterology following EGD shows no significant source of bleed Colonoscopy pending Follow CBC Transfuse again as needed Type II NSTEMI Cardiology following Follow on telemetry Possible heart catheterization Hyperlipidemia Continue present treatment Follow as an outpatient Nicotine dependence Cessation recommended Metastatic prostate cancer Continue as needed pain treatments Potentially contributory to blood loss Continue Flomax Bilateral pleural effusions Right greater than left Dyspnea Continue incentive spirometry Continue as needed duo nebs Acute hyperkalemia End-stage renal disease Hemodialysis dependence Continue dialysis Nephrology following Follow potassium levels Kayexalate as needed DVT prophylaxis SCDs Progress Note: Quality VTE Deep Vein Thrombosis/Pulmonary Embolism Present on Admission: No _ (1) Anemia Qualifiers: Anemia type: due to chronic kidney disease Bone marrow failure anemia type: Chronic kidney disease stage: on chronic dialysis Folate deficiency anemia type: Hemolytic anemia type: Iron deficiency anemia type: Other causes of anemia: Vitamin B12 deficiency anemia type: Qualified Code(s): N18.6 - End stage renal disease; D63.1 - Anemia in chronic kidney disease; Z99.2 - Dependence on renal dialysis (2) Joint pain Qualifiers: Joint pain location: hip Laterality: left Qualified Code(s): M25.552 - Pain in left hip (3) Dyspnea Qualifiers: Dyspnea type: shortness of breath Qualified Code(s): R06.02 - Shortness of breath; R06.00 - Dyspnea, unspecified; R06.01 - Orthopnea
--- NOTE | 2018-09-07 11:19 | P.PCN ---
Date of procedure: 09/07/18 Pre-op diagnosis: Anemia with blood in stool Post-op diagnosis: other (Multiple colon polyps) Procedure: Indication; Anemia with blood in stool Procedure Performed; Colonoscopy with bold biopsy polypectomy, cold snare polypectomy, and hot snare polypectomy After informing the patient about procedure and possible complications consent was signed. history and physical were updated. Patient was taken to the procedure room and placed in position. Time out was completed. Adequate sedation was performed by anesthesia provider. Colonoscopy, rectal exam was performed the scope was placed in the rectum advanced under video guide to the cecum which was identifed by ileo-cecal valve and appendiceal orifice, then the scope withdrawal slowly with examination of the mucosa to the rectum and retro-flexion was performed, the scope was withdrawal without any immediate complication Bowel prep was adequate. Findings: Terminal ileum : normal to 10 cm. Colon: 3 3-6 mm polyps were removed in the cecum with cold biopsy forceps technique. Further pull back revealed a 1 cm sessile polyp removed with cold snare technique. In the sigmoid colon about 7 sessile and pedunculated 5 mm to 2 cm polyps were removed using hot snare and cold snare polypectomy technique. The colonic mucosa was otherwise normal. Rectum: In the rectum there were 2 1.5 to 2 cm pedunculated polyps removed with hot snare technique and several small polyps that were sessile that were removed with cold snare technique. Due to the large number of polyps and the status of the patient a decision was made to mostly remove the larger polyps and those that appeared friable. Several smaller, 2-5 mm sessile polyps were left and can be addressed in one year. Impression: multiple colon polyps. Recommendations; 1- Supportive care 2- ok to transfer to recovery area then discharge per protocol 3- colonoscopy inone year. [id number] diet 5-I would be careful of anticoargulation and NSAIDS for 5 days due to large number of polyps resected and risk of delayed bleeding. Anesthesia: MAC Surgeon: Samson Colon Pathology: other (Cecum- polyps, ascending colon polyps, sigmoid polyps, rectal polyps) Condition: stable Disposition: floor
[2018-09-07] MEDS: Potassium Chlor 20 mEq Premix 20 MEQ/100 ML PIGGYBACK IV.SIG SCH (11:31)
--- NOTE | 2018-09-07 13:53 | P.PNNP ---
Subjective Interval history: Patient seen after the colonoscopy, no abd. pain. Physical Exam Vital signs: Vital Signs 09/06/18 14:00 09/06/18 15:00 09/06/18 15:01 Temperature Pulse Rate 71 78 79 Respiratory Rate Blood Pressure 133/60 141/76 H Pulse Oximetry 99 96 89 L 09/06/18 16:00 09/06/18 17:00 09/06/18 18:00 Temperature 98.2 F Pulse Rate 75 78 74 Respiratory Rate 18 Blood Pressure 128/60 120/56 L 121/59 L Pulse Oximetry 97 95 100 09/06/18 19:00 09/06/18 19:39 09/06/18 20:00 Temperature Pulse Rate 71 70 74 Respiratory Rate 15 18 Blood Pressure 135/58 L 144/64 H Pulse Oximetry 94 L 99 09/06/18 21:00 09/06/18 21:58 09/06/18 22:00 Temperature 99.1 F Pulse Rate 61 58 L Respiratory Rate 18 Blood Pressure 118/58 L 110/58 L Pulse Oximetry 96 96 09/06/18 23:00 09/06/18 23:01 09/07/18 00:00 Temperature 98.8 F Pulse Rate 63 63 66 Respiratory Rate 20 Blood Pressure 129/60 122/60 Pulse Oximetry 97 97 99 09/07/18 01:00 09/07/18 02:00 09/07/18 03:00 Temperature Pulse Rate 67 65 79 Respiratory Rate Blood Pressure 129/70 Pulse Oximetry 97 93 L 99 09/07/18 03:01 09/07/18 04:00 09/07/18 06:00 Temperature 98.3 F Pulse Rate 74 61 66 Respiratory Rate 20 Blood Pressure 131/63 119/58 L Pulse Oximetry 100 97 09/07/18 08:00 09/07/18 08:23 09/07/18 10:00 Temperature 98 F Pulse Rate 64 67 65 Respiratory Rate 16 18 Blood Pressure 132/61 Pulse Oximetry 99 09/07/18 11:22 09/07/18 11:30 09/07/18 11:45 Temperature 98.0 F Pulse Rate 80 80 74 Respiratory Rate 16 16 16 Blood Pressure 95/51 L 95/55 L 104/59 L Pulse Oximetry 98 97 98 09/07/18 12:00 Temperature Pulse Rate 70 Respiratory Rate Blood Pressure Pulse Oximetry Intake & Output 09/06/18 09/07/18 09/07/18 18:59 06:59 18:59 Intake Total 350 / 350 1250 / 1250 150 / 150 Output Total 2300 / 2300 200 / 200 Balance -1950 / -1950 1050 / 1050 150 / 150 Weight 72.5 kg Intake: IV 100 / 100 50 / 50 50 / 50 Zosyn 2.25 GM Premix 2.25 gm In 100 / 100 50 / 50 50 / 50 50 ml @ 100 mls/hr IV.SIG Q8H CYNDIE Rx#:[id number] Oral 250 / 250 1200 / 1200 Anesthesia Amount 100 / 100 Output: Urine 300 / 300 200 / 200 Hemodialysis Amount 1999 Other: Date of Last Bowel Movement 09/06/18 09/06/18 09/06/18 # Bowel Movements 6 8 Narrative: GENERAL: NAD, A&Ox3 HEAD: Normocephalic. NECK: Supple, trachea midline. No lymphadenopathy. EYES: No scleral icterus. No injection or drainage. CARDIOVASCULAR: Regular rate and rhythm without murmurs, gallops, or rubs. RESPIRATORY: Breath sounds equal bilaterally. No accessory muscle use. GASTROINTESTINAL: Abdomen soft, non-tender, nondistended. MUSCULOSKELETAL: No cyanosis, or edema. SKIN: Warm and dry. NEURO: No focal neurological deficits. Assessment and Plan - Assessment (1) End stage renal disease Code(s): N18.6 - End stage renal disease Status: Chronic (2) Anemia Code(s): D64.9 - Anemia, unspecified Status: Acute Qualifiers: Anemia type: due to chronic kidney disease Chronic kidney disease stage: on chronic dialysis Qualified Code(s): N18.6 - End stage renal disease; D63.1 - Anemia in chronic kidney disease; Z99.2 - Dependence on renal dialysis (3) Joint pain Code(s): M25.50 - Pain in unspecified joint Status: Deleted Qualifiers: Joint pain location: hip Laterality: left Qualified Code(s): M25.552 - Pain in left hip (4) Dyspnea Code(s): R06.00 - Dyspnea, unspecified Status: Acute Qualifiers: Dyspnea type: shortness of breath Qualified Code(s): R06.02 - Shortness of breath; R06.00 - Dyspnea, unspecified; R06.01 - Orthopnea (5) Prostate cancer metastatic to bone Code(s): C61 - Malignant neoplasm of prostate; C79.51 - Secondary malignant neoplasm of bone Status: Chronic - Plan Patient with end stage renal disease, on HD MWF. Patient with advance metastatic prostrate cancer, and with end stage renal disease. HD will be in AM, Follow Hgb, stable so far. Post colonoscopy, will follow the results.
--- NOTE | 2018-09-07 19:09 | P.PNPAL ---
Reason for Visit Reason for visit: a. To assist with evaluation and management of symptoms including: dyspnea, pain. b. To assist medical decision maker(s) with: better understanding of current medical conditions; weighing benefits/burdens of medical treatment options; making medical treatment decisions. Subjective Subjective/Interval History: Patient seen to follow up on comfort, goals. s/p colonoscopy today, was cx yesterday due to unable to complete prep. report= polyps, some removed. No other acute findings. H&H stable. Planned for HD tomorrow. K+ 3.3,Ordered for repletion , pt refused, will be supplemented during HD tomorrow. Seen in room , alert. verbalizes feels slightly "groggy", no other complaints. Oriented and appropriate. Aware that he completed colonoscopy today he tells me the only findings were polyps which they removed. He verbalizes he was expecting to have the cardiac catheterization today with a doctor told him it might be this morning but also that it would be after the colonoscopy. Review with him that if the colonoscopy was completed this afternoon and he would not be able to have the cardiac catheterization this morning. Not clear when this planned for , just that CV planning to proceed with this after EGD and colonoscopy procedures. Pt denies pain. Denies dyspnea. C/o thirsty, assisted him with water at bedside. Endorses that the swelling to his arms feels like it is getting better. Endorses overall feeling okay. Offered to call his family, he indicates he spoke with his son last night and it is probably not needed. He wishes to complete whatever he needs to help with getting him better so he can get out of the hospital, he is anxious to be discharged home. Goals remain aggressive. Advance Directives Living Will: Never completed Health Care Surrogate: Never completed Durable Power of Manager Oncology: Never completed Health Care Surrogate Name and Number: HCP: sonJuan Manuel AND daughterChristin Objective Vital Signs: Vital Signs 09/06/18 19:00 09/06/18 19:39 09/06/18 20:00 Temperature Pulse Rate 71 70 74 Respiratory Rate 15 18 Blood Pressure 135/58 L 144/64 H Pulse Oximetry 94 L 99 09/06/18 21:00 09/06/18 21:58 09/06/18 22:00 Temperature 99.1 F Pulse Rate 61 58 L Respiratory Rate 18 Blood Pressure 118/58 L 110/58 L Pulse Oximetry 96 96 09/06/18 23:00 09/06/18 23:01 09/07/18 00:00 Temperature 98.8 F Pulse Rate 63 63 66 Respiratory Rate 20 Blood Pressure 129/60 122/60 Pulse Oximetry 97 97 99 09/07/18 01:00 09/07/18 02:00 09/07/18 03:00 Temperature Pulse Rate 67 65 79 Respiratory Rate Blood Pressure 129/70 Pulse Oximetry 97 93 L 99 09/07/18 03:01 09/07/18 04:00 09/07/18 06:00 Temperature 98.3 F Pulse Rate 74 61 66 Respiratory Rate 20 Blood Pressure 131/63 119/58 L Pulse Oximetry 100 97 09/07/18 08:00 09/07/18 08:23 09/07/18 10:00 Temperature 98 F Pulse Rate 64 67 65 Respiratory Rate 16 18 Blood Pressure 132/61 Pulse Oximetry 99 09/07/18 11:22 09/07/18 11:30 09/07/18 11:45 Temperature 98.0 F Pulse Rate 80 80 74 Respiratory Rate 16 16 16 Blood Pressure 95/51 L 95/55 L 104/59 L Pulse Oximetry 98 97 98 09/07/18 12:00 09/07/18 14:00 09/07/18 16:47 Temperature 98.2 F Pulse Rate 70 79 78 Respiratory Rate 16 Blood Pressure 108/54 L Pulse Oximetry 97 Intake & Output 09/06/18 09/07/18 09/07/18 18:59 06:59 18:59 Intake Total 350 / 350 1250 / 1250 200 / 200 Output Total 2300 / 2300 200 / 200 Balance -1950 / -1950 1050 / 1050 200 / 200 Weight 72.5 kg 72.8 kg Intake: IV 100 / 100 50 / 50 100 / 100 Zosyn 2.25 GM Premix 2.25 gm In 100 / 100 50 / 50 100 / 100 50 ml @ 100 mls/hr IV.SIG Q8H [facility] Rx#:[id number] Oral 250 / 250 1200 / 1200 Anesthesia Amount 100 / 100 Output: Urine 300 / 300 200 / 200 Hemodialysis Amount 1999 / 1999 Other: Date of Last Bowel Movement 09/06/18 09/06/18 09/06/18 # Bowel Movements 6 8 Physical Exam: CONSTITUTIONAL/GENERAL: This is a thin, chronically ill appearing man, in no apparent distress. SKIN: No jaundice, rashes, or lesions. Multiple areas ecchymoses on upper extremities. Slightly sallow color. Skin warm and dry. EYES: Pupils equal and round and reactive. ENT: Hearing grossly normal. Nose without bleeding or purulent drainage. Throat without visible erythema, exudates, masses, or lesions. CARDIOVASCULAR: Regular rate and rhythm without murmurs, gallops, or rubs. No JVD. Peripheral pulses symmetric. RESPIRATORY/CHEST: Symmetric, unlabored respirations. Clear to auscultation. On room air. Breath sounds equal bilaterally. No wheezes, rales, or rhonchi. GASTROINTESTINAL: Abdomen soft, non-tender, nondistended. No guarding. GENITOURINARY: Without palpable bladder distension. MUSCULOSKELETAL: Extremities without clubbing, cyanosis,. Trace edema to bilateral lower arms .feet cool to touch. No calf tenderness. No mottling or clubbing. NEUROLOGICAL: Awake and alert, oriented x3. Appropriate. Reasonable insight. Generalized weakness-moves all 4 extremities well. Cooperative, follows commands. PSYCHIATRIC: No obvious anxiety/depression. no apparent hallucinations or other psychotic thought process. Diagnostic Tests Laboratory: Laboratory Results - last 72 hr 09/03/18 09/04/18 09/05/18 12:30 18:04 04:41 WBC RBC Hgb 8.2 L Hct 24.2 L MCV MCH MCHC RDW Plt Count MPV Prelim Diff (Auto) Neut % (Auto) Lymph % (Auto) [place] % (Auto) Eos % (Auto) Baso % (Auto) Neut # (Auto) Lymph # (Auto) [place] # (Auto) Eos # (Auto) Baso # (Auto) WBC Differential Seg Neuts % (Manual) Band Neuts % (Manual) Lymphocytes % (Manual) Monocytes % (Manual) Abs Neuts (Manual) Nucleated RBCs/100 WBC Differential Comment Platelet Estimate Platelet Morphology PT INR Fibrinogen Sodium Potassium Chloride Carbon Dioxide Anion Gap BUN Creatinine Estimated GFR POC Glucose Random Glucose Lactic Acid 1.7 Calcium Calcium Adj for Albumin Phosphorus Magnesium Total Bilirubin AST ALT Alkaline Phosphatase Total Creatine Kinase CK-MB (CK-2) Troponin I Total Protein Albumin Free PSA Total PSA PSA Free/Total Ratio MTS Gel Crossmatch See Detail 09/05/18 09/05/18 09/05/18 04:41 04:41 04:41 WBC 8.1 RBC 2.93 L Hgb 8.9 L Hct 25.7 L MCV 87.8 MCH 30.2 MCHC 34.4 RDW 18.7 H Plt Count 136 L MPV 7.4 Prelim Diff (Auto) Slide review pending Neut % (Auto) 64.8 Lymph % (Auto) 28.8 [place] % (Auto) 5.9 Eos % (Auto) 0.2 Baso % (Auto) 0.3 Neut # (Auto) 5.3 Lymph # (Auto) 2.3 [place] # (Auto) 0.5 Eos # (Auto) 0.0 Baso # (Auto) 0.0 WBC Differential Manual diff final Seg Neuts % (Manual) 73 H Band Neuts % (Manual) 5 Lymphocytes % (Manual) 17 Monocytes % (Manual) 5 Abs Neuts (Manual) 6.3 Nucleated RBCs/100 WBC 2 H Differential Comment . Platelet Estimate Low L Platelet Morphology Normal PT 17.7 H INR 1.7 Fibrinogen 449 H Sodium 141 Potassium 3.4 L D Chloride 103 Carbon Dioxide 27.2 Anion Gap 11 BUN 26 H Creatinine 3.51 H Estimated GFR 18 L POC Glucose Random Glucose 115 H Lactic Acid Calcium 7.6 L Calcium Adj for Albumin Phosphorus 2.4 L D Magnesium 1.9 Total Bilirubin 0.5 AST 189 H ALT 65 Alkaline Phosphatase 1610 H Total Creatine Kinase 304 CK-MB (CK-2) 6.7 H Troponin I Total Protein 5.8 L D Albumin 2.4 L Free PSA Total PSA PSA Free/Total Ratio MTS Gel Crossmatch 09/05/18 09/05/18 09/05/18 04:41 04:41 14:27 WBC RBC Hgb Hct MCV MCH MCHC RDW Plt Count MPV Prelim Diff (Auto) Neut % (Auto) Lymph % (Auto) [place] % (Auto) Eos % (Auto) Baso % (Auto) Neut # (Auto) Lymph # (Auto) [place] # (Auto) Eos # (Auto) Baso # (Auto) WBC Differential Seg Neuts % (Manual) Band Neuts % (Manual) Lymphocytes % (Manual) Monocytes % (Manual) Abs Neuts (Manual) Nucleated RBCs/100 WBC Differential Comment Platelet Estimate Platelet Morphology PT INR Fibrinogen Sodium Potassium Chloride Carbon Dioxide Anion Gap BUN Creatinine Estimated GFR POC Glucose Random Glucose Lactic Acid Calcium Calcium Adj for Albumin Phosphorus Magnesium Total Bilirubin AST ALT Alkaline Phosphatase Total Creatine Kinase CK-MB (CK-2) Troponin I 28.40 H* 18.70 H* Total Protein Albumin Free PSA Greater than 18.0 Total PSA 420.0 H PSA Free/Total Ratio 0 MTS Gel Crossmatch 09/05/18 09/05/18 09/06/18 16:31 19:42 03:53 WBC 6.9 RBC 2.76 L Hgb 8.1 L Hct 24.8 L MCV 89.8 MCH 29.4 MCHC 32.7 RDW 19.0 H Plt Count 111 L MPV 7.6 Prelim Diff (Auto) Neut % (Auto) 58.4 Lymph % (Auto) 34.1 [place] % (Auto) 6.8 Eos % (Auto) 0.3 Baso % (Auto) 0.4 Neut # (Auto) 4.0 Lymph # (Auto) 2.4 [place] # (Auto) 0.5 Eos # (Auto) 0.0 Baso # (Auto) 0.0 WBC Differential . Seg Neuts % (Manual) Band Neuts % (Manual) Lymphocytes % (Manual) Monocytes % (Manual) Abs Neuts (Manual) Nucleated RBCs/100 WBC Differential Comment Auto diff final Platelet Estimate Platelet Morphology PT INR Fibrinogen Sodium Potassium Chloride Carbon Dioxide Anion Gap BUN Creatinine Estimated GFR POC Glucose 97 112 H Random Glucose Lactic Acid Calcium Calcium Adj for Albumin Phosphorus Magnesium Total Bilirubin AST ALT Alkaline Phosphatase Total Creatine Kinase CK-MB (CK-2) Troponin I Total Protein Albumin Free PSA Total PSA PSA Free/Total Ratio MTS Gel Crossmatch 09/06/18 09/07/18 09/07/18 03:53 05:20 05:20 WBC 7.9 RBC 2.86 L Hgb 8.5 L Hct 25.9 L MCV 90.6 MCH 29.6 MCHC 32.7 RDW 19.1 H Plt Count 105 L MPV 7.5 Prelim Diff (Auto) Neut % (Auto) 56.2 Lymph % (Auto) 36.0 [place] % (Auto) 6.9 Eos % (Auto) 0.4 Baso % (Auto) 0.5 Neut # (Auto) 4.4 Lymph # (Auto) 2.8 [place] # (Auto) 0.5 Eos # (Auto) 0.0 Baso # (Auto) 0.0 WBC Differential . Seg Neuts % (Manual) Band Neuts % (Manual) Lymphocytes % (Manual) Monocytes % (Manual) Abs Neuts (Manual) Nucleated RBCs/100 WBC Differential Comment Auto diff final Platelet Estimate Platelet Morphology PT INR Fibrinogen Sodium 142 143 Potassium 3.6 3.3 L Chloride 105 104 Carbon Dioxide 25.1 28.2 Anion Gap 12 11 BUN 32 H 26 H Creatinine 3.97 H 3.11 H Estimated GFR 15 L 20 L POC Glucose Random Glucose 112 H 76 Lactic Acid Calcium 7.3 L* 8.0 L Calcium Adj for Albumin 8.9 Phosphorus 2.5 Magnesium 1.8 Total Bilirubin 0.5 0.6 AST 107 H 48 H ALT 49 31 Alkaline Phosphatase 1207 H 1054 H Total Creatine Kinase CK-MB (CK-2) Troponin I Total Protein 5.2 L D 5.2 L Albumin 2.0 L 2.0 L Free PSA Total PSA PSA Free/Total Ratio MTS Gel Crossmatch Result Diagrams: 09/07/18 05:20 09/07/18 05:20 Microbiology: Microbiology 09/03/18 12:30 Aerobic Blood Culture - Preliminary Blood - Peripheral No growth in 4 days Anaerobic Blood Culture - Preliminary No growth in 4 days 09/03/18 12:35 Aerobic Blood Culture - Preliminary Blood - Peripheral No growth in 4 days Anaerobic Blood Culture - Preliminary No growth in 4 days 09/03/18 13:11 Influenza Types A,B Antigen - Final Nasal Wash Negative for FLU A and B antigen Infection due to influenza A or B cannot be ruled out since the antigen present in the sample may be below the detection limit of the test. Procedures: * 09/05/18 - Endoscopy and biopsy * 09/07 colonoscopy Assessment and Plan - Disease Oriented Problem List (1) End stage renal disease (2) Prostate cancer metastatic to bone (3) GI (gastrointestinal bleed) (4) NSTEMI (non-ST elevated myocardial infarction) (5) Elevated troponin Pertinent Non-Medical Issues: Psychosocial:. Retired. Has 1 son and 1 daughter. Spiritual:Unknown. Legal: No written advance directives. According to [place] statutes, should the patient lose capacity, health care proxy decision making would fall to the majority of adult children (he has 2 sons and 1 daughter). 1 son Mekhi has Down Syndrome and unable to participate. Ethical issues impacting care: No known concerns at this time. Important Contacts: * Juan Manuel Ross, son: [phone] * Christin Ely daughter: [phone] Prognosis: Mr. Ross is a 63 year old male with multiple acute on chronic medical problems admitted with possible GI bleed, anemia, NSTEMI, overall prognosis is poor. Code Status: Full Code Plan: * No written advance directives. According to [place] statutes, should the patient lose capacity, health care proxy decision making would fall to the majority of adult children. He has 2 sons (Juan Manuel and Mekhi) and 1 daughter ( Christin). We have offered to assist in completion of written advance directives, he declines. He tells us he would want his son, Juan Manuel and daughter, Christin to speak for him. He has another son, Mekhi who is non-verbal, has Down Syndrome, he is unable to participate in health care decision making. * FULL CODE * Goals: Goals remain aggressive. He wishes to proceed with cardiac catheterization and is hopeful to be discharged home soon. * SYMPTOMS: shortness of breath: denies during my visit. pain: chest pain, has PRN Nitro. seems to have some chronic pain of left hip and knees, ? arthritis or bone mets, has PRN Percocet 5/325mg PO every 6 hours, sparing requirements. Denies pain today. Will monitor need and effect. * Palliative care will continue to follow to assist with symptom management and clarification of goals of medical treatment throughout hospital course. Attestation Collaborating MD Comments: To help prompt me to consider important information that might be impacting today's encounter and assessment, information from prior notes written by myself or my colleagues may have been "brought forward" into today's note. My signature on this note, however, is an attestation that I personally performed the exam, history, and/or decision-making noted today, and, unless otherwise indicated, the interactions with patient, family, and staff as well as the review of records all occurred today. I also attest that the listed assessment and stated plan reflect my best clinical judgment today based on the combination of historical information, prior notes, and today's exam/ interactions. When time spent is documented, it refers only to time spent today by the signer, or if indicated, combined time spent today by collaborating physician/nurse practitioner.
--- NOTE | 2018-09-07 23:18 | P.PNCA ---
Subjective Interval history: s/p colonoscopy with multiple polyps removed Feels ok overall Medications and Allergies Active Medications: Active Medications Acetaminophen (Tylenol) 650 mg PO UNSCH PRN PRN Reason: SEE LABEL COMMENTS Al Hydroxide/Mg Hydroxide (Milk Of Yaritza Conde) 30 ml PO Q12H PRN PRN Reason: Mild Constipation Albuterol (Albuterol Neb (Prn)) 2.5 mg NEB Q2HR NEB PRN PRN Reason: SHORTNESS OF BREATH Bisacodyl (Dulcolax Supp) 10 mg RECTAL DAILY PRN PRN Reason: SEVERE CONSITIPATION Chlorhexidine Gluconate (Chlorhexidine 2% Cloth) 3 pack TOPICAL DAILY@0400 [facility] Stop: 09/09/18 03:59 Last Admin: 09/07/18 03:12 Dose: 3 pack Chlorhexidine Gluconate (Chlorhexidine 2% Cloth) 3 pack TOPICAL DAILY@0400 PRN PRN Reason: Extra cloth needed Stop: 09/09/18 03:59 Clonidine HCl (Catapres) 0.1 mg PO UNSCH PRN PRN Reason: SEE LABEL COMMENTS Diphenhydramine HCl (Benadryl) 25 mg PO UNSCH PRN PRN Reason: SEE LABEL COMMENTS Epoetin Hermes (Epogen Inj) 10,000 unit IV.PUSH UNSCH PRN PRN Reason: SEE LABEL COMMENTS Gelatin (Gelfoam 12 Mm/7 Mm Topical) 1 foam TOPICAL PRN PRN PRN Reason: help stop bleeding from site Gentamicin Sulfate (Gentamicin Inj) 20 mg OTHER WITH DIALYSIS PRN PRN Reason: Dwell Gentamycin Lock Last Admin: 09/04/18 12:51 Dose: 20 mg Heparin Sodium (Porcine) (Heparin Inj) 8,000 units OTHER WITH DIALYSIS PRN PRN Reason: for machine prime Heparin Sodium (Porcine) (Heparin Inj) 1,000 units OTHER WITH DIALYSIS PRN PRN Reason: Dwell Heparin to Fill Catheter Last Admin: 09/04/18 12:51 Dose: 1,000 units Piperacillin/Tazobactam/Dextrose (Zosyn 2.25 Gm Premix) 2.25 gm in 50 mls @ 100 mls/hr IV.SIG Q8H [facility] Last Admin: 09/07/18 22:30 Dose: 100 mls/hr Albumin Human (Flexbumin 25% Inj) 100 mls @ 60 mls/hr IV.SIG WITH DIALYSIS PRN PRN Reason: hypotension / volume replace Sodium Chloride (Ns Inj) 1,000 mls @ 0 mls/hr OTHER .Q0M PRN PRN Reason: for prime and rinse back Sodium Chloride (Ns Inj) 1,000 mls @ 0 mls/hr IV.CONT .Q0M PRN PRN Reason: hypotension / volume replace Sodium Chloride (Ns Inj) 1,000 mls @ 200 mls/hr OTHER .Q5H PRN PRN Reason: for dialyzer flush PRN Lactulose (Lactulose Liq) 30 ml PO DAILY PRN PRN Reason: SEVERE CONSITIPATION Mannitol (Mannitol Inj) 12.5 gm IV.PUSH UNSCH PRN PRN Reason: hypotension / volume replace Metoprolol Tartrate (Lopressor) 12.5 mg PO BID [facility] Last Admin: 09/07/18 21:00 Dose: Not Given Metronidazole (Flagyl) 500 mg PO Q8HR [facility] Last Admin: 09/07/18 21:01 Dose: 500 mg Miscellaneous Information ([facility] Nursing Information) 0 each OTHER UNSCH PRN PRN Reason: SEE LABEL COMMENTS Stop: 09/08/18 11:23 Nicotine (Habitrol 7 Mg Patch.24 Hr) 1 patch T-DERMAL DAILY [facility] Last Admin: 09/07/18 08:33 Dose: Not Given Nitroglycerin (Nitrostat Sl) 0.4 mg SL Q5M PRN PRN Reason: CHEST PAIN Ondansetron HCl (Zofran Inj) 4 mg IV.PUSH UNSCH PRN PRN Reason: NAUSEA OR VOMITING Oxycodone/Acetaminophen (Percocet 5/325 Mg) 1 tab PO Q6H PRN PRN Reason: PAIN SCALE 1 TO 10 Last Admin: 09/07/18 22:30 Dose: 1 tab Pantoprazole Sodium (Protonix Inj) 40 mg IV.PUSH Q12H [facility] Last Admin: 09/07/18 14:02 Dose: 40 mg Patch Removal (Remove Old Patch) 1 each T-DERMAL DAILY [facility] Last Admin: 09/07/18 08:34 Dose: Not Given Senna/Docusate Sodium (Negin-Colace) 1 tab PO BID [facility] Last Admin: 09/07/18 21:00 Dose: Not Given Sennosides (Senokot) 17.2 mg PO Q12H PRN PRN Reason: Moderate Constipation Sodium Chloride (Ns Flush) 2 ml IV.FLUSH PRN PRN PRN Reason: FLUSH AFTER USING IV ACCESS Last Admin: 09/06/18 08:37 Dose: 2 ml Sodium Chloride (Ns Flush) 2 ml IV.FLUSH BID [facility] Last Admin: 09/07/18 21:01 Dose: 2 ml Sodium Chloride (Ns Flush) 5 ml IV.FLUSH PRN PRN PRN Reason: flush each lumen during HD Tamsulosin HCl (Flomax) 0.4 mg PO DAILY [facility] Last Admin: 09/07/18 08:32 Dose: 0.4 mg Allergies Allergy/AdvReac Type Severity Reaction Status Date / Time Tetanus Vaccines and Toxoid Allergy Severe Fever Verified 08/13/18 15:46 amoxicillin AdvReac Mild Nausea/Vomi Verified 08/13/18 15:46 ting Home Medications Medication Instructions Recorded Confirmed Type bicalutamide 50 mg PO HS 07/09/18 09/03/18 History tamsulosin [Flomax] 0.4 mg PO DAILY 07/09/18 09/03/18 History Physical Exam Vital signs: Vital Signs 09/07/18 00:00 09/07/18 01:00 09/07/18 02:00 Temperature 98.8 F Pulse Rate 66 67 65 Respiratory Rate 20 Blood Pressure 122/60 129/70 Pulse Oximetry 99 97 93 L 09/07/18 03:00 09/07/18 03:01 09/07/18 04:00 Temperature 98.3 F Pulse Rate 79 74 61 Respiratory Rate 20 Blood Pressure 131/63 119/58 L Pulse Oximetry 99 100 97 09/07/18 06:00 09/07/18 08:00 09/07/18 08:23 Temperature 98 F Pulse Rate 66 64 67 Respiratory Rate 16 18 Blood Pressure 132/61 Pulse Oximetry 99 09/07/18 10:00 09/07/18 11:22 09/07/18 11:30 Temperature 98.0 F Pulse Rate 65 80 80 Respiratory Rate 16 16 Blood Pressure 95/51 L 95/55 L Pulse Oximetry 98 97 09/07/18 11:45 09/07/18 12:00 09/07/18 14:00 Temperature Pulse Rate 74 70 79 Respiratory Rate 16 Blood Pressure 104/59 L Pulse Oximetry 98 09/07/18 16:27 09/07/18 16:47 09/07/18 20:00 Temperature 98.2 F 97.9 F Pulse Rate 88 78 82 Respiratory Rate 16 18 Blood Pressure 108/54 L 113/53 L Pulse Oximetry 97 96 Intake & Output 09/07/18 09/07/18 09/08/18 06:59 18:59 06:59 Intake Total 1250 / 1250 200 / 200 Output Total 200 / 200 Balance 1050 / 1050 200 / 200 Weight 72.5 kg 72.8 kg Intake: IV 50 / 50 100 / 100 Zosyn 2.25 GM Premix 2.25 gm In 50 / 50 100 / 100 50 ml @ 100 mls/hr IV.SIG Q8H [facility] Rx#:[id number] Oral 1200 / 1200 Anesthesia Amount 100 / 100 Output: Urine 200 / 200 Other: Date of Last Bowel Movement 09/06/18 09/06/18 # Bowel Movements 8 Narrative: GENERAL: NAD, A&Ox3 HEAD: Normocephalic. NECK: Supple, trachea midline. No lymphadenopathy. EYES: No scleral icterus. No injection or drainage. CARDIOVASCULAR: Regular rate and rhythm without murmurs, gallops, or rubs. RESPIRATORY: Breath sounds equal bilaterally. No accessory muscle use. GASTROINTESTINAL: Abdomen soft, non-tender, nondistended. MUSCULOSKELETAL: No cyanosis, or edema. SKIN: Warm and dry. NEURO: No focal neurological deficits. Results 09/07/18 05:20 09/07/18 05:20 Cardiac Enzymes 09/06/18 09/07/18 Range/Units 03:53 05:20 AST 107 H 48 H (15-37) U/L CBC 09/06/18 09/07/18 Range/Units 03:53 05:20 WBC 6.9 7.9 (4.0-11.0) th/mm3 RBC 2.76 L 2.86 L (4.50-5.90) mil/mm3 Hgb 8.1 L 8.5 L (13.0-17.0) gm/dL Hct 24.8 L 25.9 L (39.0-51.0) % Plt Count 111 L 105 L (150-450) th/mm3 Neut # (Auto) 4.0 4.4 (1.8-7.7) th/mm3 Lymph # (Auto) 2.4 2.8 (1.0-4.8) th/mm3 [place] # (Auto) 0.5 0.5 (0.0-0.9) th/mm3 Eos # (Auto) 0.0 0.0 (0.0-0.4) th/mm3 Baso # (Auto) 0.0 0.0 (0.0-0.2) th/mm3 Comprehensive Metabolic Panel 09/06/18 09/07/18 Range/Units 03:53 05:20 Sodium 142 143 (136-145) meq/L Potassium 3.6 3.3 L (3.5-5.1) meq/L Chloride 105 104 (98-107) meq/L Carbon Dioxide 25.1 28.2 (21.0-32.0) meq/L BUN 32 H 26 H (7-18) mg/dL Creatinine 3.97 H 3.11 H (0.60-1.30) mg/dL Calcium 7.3 L* 8.0 L (8.5-10.1) mg/dL AST 107 H 48 H (15-37) U/L ALT 49 31 (12-78) U/L Alkaline Phosphatase 1207 H 1054 H (45-117) U/L Total Protein 5.2 L D 5.2 L (6.4-8.2) g/dL Albumin 2.0 L 2.0 L (3.4-5.0) g/dL Intake and Output 09/07/18 09/07/18 09/08/18 14:59 22:59 06:59 Intake Total 200 / 200 Balance 200 / 200 Intake: IV 100 / 100 Zosyn 2.25 GM Premix 2.25 gm In 100 / 100 50 ml @ 100 mls/hr IV.SIG Q8H [facility] Rx#:[id number] Anesthesia Amount 100 / 100 Other: Date of Last Bowel Movement 09/06/18 Weight 72.8 kg Patient Weight 09/08/18 06:59 Weight 72.8 kg Assessment and Plan - Assessment (1) Elevated troponin Code(s): R74.8 - Abnormal levels of other serum enzymes Status: Acute Plan: as detailed in my note yesterday, likely has underlying cad though unclear if truly nstemi vs symptomatic anemia (2) GI (gastrointestinal bleed) Code(s): K92.2 - Gastrointestinal hemorrhage, unspecified Status: Acute Plan: ok for colonoscopy/egd (noting somewhat higher risk due to potential cardiac ischemia); cath would likely require anticoagulation so need to make sure no active bleeding prior. (3) Anemia Code(s): D64.9 - Anemia, unspecified Status: Acute (4) NSTEMI (non-ST elevated myocardial infarction) Code(s): I21.4 - Non-ST elevation (NSTEMI) myocardial infarction Status: Acute Plan: for now asa held due to gi bleed; statin held due to elevated LFTs; added bb. (5) End stage renal disease Code(s): N18.6 - End stage renal disease Status: Chronic - Plan 1) Significant anemia EGD negative for bleeding source Cscope showing multiple polyps 2) NSTEMI Possible symptomatic anemia Most likely has underlying CAD Discussed consideration of cardiac catheterization Will see what kidney function looks like tomorrow and possibly do diagnostic only cath GI recommending to wait on any anticoagulation in the near future due to multiple polyps removed as well as JUANA on CKD 3) Metastatic prostate cancer (3) Anemia Qualifiers: Anemia type: due to chronic kidney disease Chronic kidney disease stage: on chronic dialysis Qualified Code(s): N18.6 - End stage renal disease; D63.1 - Anemia in chronic kidney disease; Z99.2 - Dependence on renal dialysis
[2018-09-08] MEDS: Pantoprazole Inj 40 MG Vial IV.PUSH SCH ×2 (02:01→13:43)
[2018-09-08] MEDS: Chlorhexidine Gluconate 2% 1 Pack (2 Cloths) TOPICAL SCH (04:46)
[2018-09-08] MEDS: metroNIDAZOLE 500 MG Tablet PO SCH ×3 (05:15→21:39)
[2018-09-08] MEDS: Piperacil/Tazo 2.25 GM Premix 2.25 GM/50 ML PIGGYBACK IV.SIG SCH ×3 (05:16→21:39)
[2018-09-08 06:34] LABS: Albumin 1.8 g/dL (3.4-5.0); Anion Gap 13 meq/L (5-15); Aspartate Aminotransferase 26 U/L (15-37); Blood Urea Nitrogen 33 mg/dL (7-18); Calcium 7.6 mg/dL (8.5-10.1); Carbon Dioxide 24.6 meq/L (21.0-32.0); Chloride 102 meq/L (98-107); Glomerular Filtration Rate 16 mL/min (>89); Glucose,Random 135 mg/dL (74-106); Potassium 3.2 meq/L (3.5-5.1); Sodium 140 meq/L (136-145)
[2018-09-08 06:38] LABS: Alanine Aminotransferase 21 U/L (12-78); Alkaline Phosphatase 963 U/L (45-117)
[2018-09-08 06:40] LABS: Baso % (Auto) 0.6 % (0.0-2.0); Eos % (Auto) 0.8 % (0.0-4.0); Hemoglobin 7.5 gm/dL (13.0-17.0); Lymph # (Auto) 1.8 th/mm3 (1.0-4.8); Lymph % (Auto) 29.8 % (9.0-44.0); Mean Corpuscular HGB Conc 33.9 % (32.0-36.0); Mean Corpuscular Volume 88.4 fL (80.0-100.0); Mean Platelet Volume 7.6 fL (7.0-11.0); Mono # (Auto) 0.5 th/mm3 (0.0-0.9); Mono % (Auto) 7.6 % (0.0-8.0); Neut # (Auto) 3.7 th/mm3 (1.8-7.7); Neut % (Auto) 61.2 % (16.0-70.0); Platelet Count 91 th/mm3 (150-450); Red Blood Count 2.49 mil/mm3 (4.50-5.90); Red Cell Distribution Width 19.2 % (11.6-17.2)
[2018-09-08] MEDS ORDERED: Heparin 10,000 UNITS/10 ML Vial (for IV use) ONE (07:58)
[2018-09-08 08:32] LABS: Eosinophils 1 % (0-4); Lymphocytes 15 % (9-44); Metamyelocytes 1 % (0-1); Monocytes 5 % (0-8); Myelocytes 1 % (0-0); Platelet Morphology Normal (Normal); Tallied Nucleated RBC 1 (0-0)
[2018-09-08] MEDS ORDERED: Cathflo Activase Inj 2 MG Vial I-CATHETER ONE (11:30)
--- NOTE | 2018-09-08 12:18 | P.PNNP ---
Subjective Interval history: Seen during hemodialysis. Permacath with decreased flow. Denies any shortness of breath, chest pain, nausea, or vomiting. <Yris Delong - Last Filed: 09/08/18 12:13> Physical Exam Vital signs: Vital Signs 09/07/18 14:00 09/07/18 16:27 09/07/18 16:47 Temperature 98.2 F Pulse Rate 79 88 78 Respiratory Rate 16 Blood Pressure 108/54 L Pulse Oximetry 97 09/07/18 20:00 09/07/18 20:27 09/08/18 00:00 Temperature 97.9 F 98.7 F Pulse Rate 82 84 80 Respiratory Rate 18 18 Blood Pressure 113/53 L 120/56 L Pulse Oximetry 96 94 L 09/08/18 04:00 09/08/18 08:00 Temperature 97.4 F L 98.3 F Pulse Rate 71 76 Respiratory Rate 18 18 Blood Pressure 115/59 L 126/61 Pulse Oximetry 94 L 95 Intake & Output 09/07/18 09/08/18 09/08/18 18:59 06:59 18:59 Intake Total 200 / 200 100 / 100 Output Total 0 / 0 1000 / 1000 Balance 200 / 200 100 / 100 -1000 / -1000 Weight 72.8 kg Intake: IV 100 / 100 100 / 100 Zosyn 2.25 GM Premix 2.25 gm In 100 / 100 100 / 100 50 ml @ 100 mls/hr IV.SIG Q8H [facility] Rx#:[id number] Oral 0 / 0 Anesthesia Amount 100 / 100 Output: Stool 0 / 0 Hemodialysis Amount 1000 / 1000 Other: # Voids 200 Date of Last Bowel Movement 09/06/18 09/06/18 Narrative: GENERAL: NAD, A&Ox3 NECK: Supple, trachea midline. No JVD CARDIOVASCULAR: Regular rate and rhythm without murmurs, gallops, or rubs. Left arm AVF. Right IJ permacath RESPIRATORY: Breath sounds equal bilaterally. No accessory muscle use. GASTROINTESTINAL: Abdomen soft, non-tender, nondistended. +BS MUSCULOSKELETAL: No cyanosis, or edema. SKIN: Warm and dry. <Yris Delong - Last Filed: 09/08/18 12:13> Vital signs: Vital Signs 09/08/18 00:00 09/08/18 04:00 09/08/18 08:00 Temperature 98.7 F 97.4 F L 98.3 F Pulse Rate 80 71 76 Respiratory Rate 18 18 18 Blood Pressure 120/56 L 115/59 L 126/61 Pulse Oximetry 94 L 94 L 95 09/08/18 12:00 09/08/18 16:00 Temperature 99.0 F Pulse Rate 75 70 Respiratory Rate 18 Blood Pressure 113/53 L Pulse Oximetry 93 L Intake & Output 09/08/18 09/08/18 09/09/18 06:59 18:59 06:59 Intake Total 100 / 100 50 / 50 Output Total 0 / 0 1500 / 1500 Balance 100 / 100 -1450 / -1450 Intake: IV 100 / 100 50 / 50 Zosyn 2.25 GM Premix 2.25 gm In 100 / 100 50 / 50 50 ml @ 100 mls/hr IV.SIG Q8H [facility] Rx#:[id number] Oral 0 / 0 Output: Urine 500 / 500 Stool 0 / 0 Hemodialysis Amount 1000 / 1000 Other: # Voids 200 Date of Last Bowel Movement 09/06/18 <Dakota Roger Q - Last Filed: 09/08/18 21:09> Assessment and Plan - Assessment (1) End stage renal disease Code(s): N18.6 - End stage renal disease Status: Chronic (2) Anemia Code(s): D64.9 - Anemia, unspecified Status: Acute Qualifiers: Anemia type: due to chronic kidney disease Chronic kidney disease stage: on chronic dialysis Qualified Code(s): N18.6 - End stage renal disease; D63.1 - Anemia in chronic kidney disease; Z99.2 - Dependence on renal dialysis (3) Joint pain Code(s): M25.50 - Pain in unspecified joint Status: Deleted Qualifiers: Joint pain location: hip Laterality: left Qualified Code(s): M25.552 - Pain in left hip (4) Dyspnea Code(s): R06.00 - Dyspnea, unspecified Status: Acute Qualifiers: Dyspnea type: shortness of breath Qualified Code(s): R06.02 - Shortness of breath; R06.00 - Dyspnea, unspecified; R06.01 - Orthopnea (5) Prostate cancer metastatic to bone Code(s): C61 - Malignant neoplasm of prostate; C79.51 - Secondary malignant neoplasm of bone Status: Chronic - Plan Anemia GI is going to do endoscopy prepping now Epogen with dialysis Hemodialysis today with UF of 2 liters tolerated well. Patient with end stage renal disease, on HD MWF. Patient with advance metastatic prostrate cancer HD this morning, decreased flow with permacath, cath berna inserted, 1 liter of fluid removed Hypokalemia, K bath adjusted with dialysis HGB at 7.5, epogen with dialysis, s/p colonoscopy Labs in AM <Yris Delong - Last Filed: 09/08/18 12:13> - Assessment (1) End stage renal disease Code(s): N18.6 - End stage renal disease Status: Chronic (2) Anemia Code(s): D64.9 - Anemia, unspecified Status: Acute Qualifiers: Anemia type: due to chronic kidney disease Chronic kidney disease stage: on chronic dialysis Qualified Code(s): N18.6 - End stage renal disease; D63.1 - Anemia in chronic kidney disease; Z99.2 - Dependence on renal dialysis (3) Joint pain Code(s): M25.50 - Pain in unspecified joint Status: Deleted Qualifiers: Joint pain location: hip Laterality: left Qualified Code(s): M25.552 - Pain in left hip (4) Dyspnea Code(s): R06.00 - Dyspnea, unspecified Status: Acute Qualifiers: Dyspnea type: shortness of breath Qualified Code(s): R06.02 - Shortness of breath; R06.00 - Dyspnea, unspecified; R06.01 - Orthopnea (5) Prostate cancer metastatic to bone Code(s): C61 - Malignant neoplasm of prostate; C79.51 - Secondary malignant neoplasm of bone Status: Chronic - Plan Patient seen and examined, agree with above. Post colonoscopy, Hgb. is 7.5, transfuse if drop. HD done in AM. <Vance Roger - Last Filed: 09/08/18 21:09>
[2018-09-08] MEDS: Metoprolol Tartrate 25 MG Tablet PO SCH ×2 (13:43→21:38)
[2018-09-08] MEDS: Senna/Docusate Sodium 8.6/50 MG Tablet PO SCH ×2 (13:53→21:38)
--- NOTE | 2018-09-08 15:47 | P.PNIM ---
Subjective Interval history: She reports she is doing okay today. He has some confusion of but whether or not he ate today. Discussed with RN. No bowel movements today. Physical Exam Vital signs: Last Vital Signs Temp 98.3 F 09/08/18 08:00 Pulse 75 09/08/18 12:00 Resp 18 09/08/18 08:00 BP 126/61 09/08/18 08:00 Pulse Ox 95 09/08/18 08:00 Intake & Output 09/06/18 09/07/18 09/08/18 09/09/18 06:59 06:59 06:59 06:59 Intake Total 1520 / 1520 1600 / 1600 300 / 300 50 / 50 Output Total 275 / 275 2500 / 2500 0 / 0 1000 / 1000 Balance 1245 / 1245 -900 / -900 300 / 300 -950 / -950 Weight 75 kg 72.5 kg 72.8 kg Narrative: GENERAL: NAD, A&Ox3 NECK: Supple, trachea midline. No JVD CARDIOVASCULAR: Regular rate and rhythm without murmurs, gallops, or rubs. Left arm AVF. Right IJ permacath RESPIRATORY: Breath sounds equal bilaterally. No accessory muscle use. GASTROINTESTINAL: Abdomen soft, non-tender, nondistended. +BS MUSCULOSKELETAL: No cyanosis, or edema. SKIN: Warm and dry. Results Labs CBC & Chem 7: 09/08/18 05:53 09/08/18 05:53 Labs: Microbiology 09/03/18 12:30 Blood - Peripheral Aerobic Blood Culture - Final No growth in 5 days 09/03/18 12:30 Blood - Peripheral Anaerobic Blood Culture - Final No growth in 5 days 09/03/18 12:35 Blood - Peripheral Aerobic Blood Culture - Final No growth in 5 days 09/03/18 12:35 Blood - Peripheral Anaerobic Blood Culture - Final No growth in 5 days Assessment and Plan (1) End stage renal disease: Code(s): N18.6 - End stage renal disease Status: Chronic (2) Anemia: Code(s): D64.9 - Anemia, unspecified Status: Acute (3) Joint pain: Code(s): M25.50 - Pain in unspecified joint Status: Deleted (4) Dyspnea: Code(s): R06.00 - Dyspnea, unspecified Status: Acute (5) Prostate cancer metastatic to bone: Code(s): C61 - Malignant neoplasm of prostate; C79.51 - Secondary malignant neoplasm of bone Status: Chronic Plan 63yM presenting with type II NSTEMI secondary to acute blood loss anemia/ suspected recurrent lower GI bleed GI bleed Gastroenterology following EGD shows no significant source of bleed Colonoscopy revealed multiple colon polyps. Some of the polyps were removed. Per GI, recommend delaying anticoagulation or NSAIDs for 5 days due to large number of polyps resected and risk of delayed bleeding Follow CBC, appears to be trending down. Transfuse again as needed Type II NSTEMI Cardiology following Follow on telemetry Cardiology has been considering heart catheterization but patient is at risk for worsening GI bleeding Hyperlipidemia Continue present treatment Follow as an outpatient Nicotine dependence Cessation recommended Metastatic prostate cancer Continue as needed pain treatments Potentially contributory to blood loss Continue Flomax Bilateral pleural effusions Right greater than left Dyspnea Continue incentive spirometry Continue as needed duo nebs Acute hyperkalemia End-stage renal disease Hemodialysis dependence Continue dialysis Nephrology following DVT prophylaxis SCDs Progress Note: Quality VTE Deep Vein Thrombosis/Pulmonary Embolism Present on Admission: No _ (1) Anemia Qualifiers: Anemia type: due to chronic kidney disease Bone marrow failure anemia type: Chronic kidney disease stage: on chronic dialysis Folate deficiency anemia type: Hemolytic anemia type: Iron deficiency anemia type: Other causes of anemia: Vitamin B12 deficiency anemia type: Qualified Code(s): N18.6 - End stage renal disease; D63.1 - Anemia in chronic kidney disease; Z99.2 - Dependence on renal dialysis (2) Joint pain Qualifiers: Joint pain location: hip Laterality: left Qualified Code(s): M25.552 - Pain in left hip (3) Dyspnea Qualifiers: Dyspnea type: shortness of breath Qualified Code(s): R06.02 - Shortness of breath; R06.00 - Dyspnea, unspecified; R06.01 - Orthopnea
--- NOTE | 2018-09-08 18:50 | P.PNGI ---
Subjective Interval history: Patient laying supine in bed Conversing on telephone No reported discomfort States he is ready to be discharged home Post colonoscopy <Nancy Patterson - Last Filed: 09/08/18 18:45> Physical Exam Vital signs: Vital Signs 09/07/18 20:00 09/07/18 20:27 09/08/18 00:00 Temperature 97.9 F 98.7 F Pulse Rate 82 84 80 Respiratory Rate 18 18 Blood Pressure 113/53 L 120/56 L Pulse Oximetry 96 94 L 09/08/18 04:00 09/08/18 08:00 09/08/18 12:00 Temperature 97.4 F L 98.3 F Pulse Rate 71 76 75 Respiratory Rate 18 18 Blood Pressure 115/59 L 126/61 Pulse Oximetry 94 L 95 09/08/18 16:00 Temperature 99.0 F Pulse Rate 70 Respiratory Rate 18 Blood Pressure 113/53 L Pulse Oximetry 93 L Intake & Output 09/07/18 09/08/18 09/08/18 18:59 06:59 18:59 Intake Total 200 / 200 100 / 100 50 / 50 Output Total 0 / 0 1500 / 1500 Balance 200 / 200 100 / 100 -1450 / -1450 Weight 72.8 kg Intake: IV 100 / 100 100 / 100 50 / 50 Zosyn 2.25 GM Premix 2.25 gm In 100 / 100 100 / 100 50 / 50 50 ml @ 100 mls/hr IV.SIG Q8H [facility] Rx#:[id number] Oral 0 / 0 Anesthesia Amount 100 / 100 Output: Urine 500 / 500 Stool 0 / 0 Hemodialysis Amount 1000 / 1000 Other: # Voids 200 Date of Last Bowel Movement 09/06/18 09/06/18 - Constitutional no acute distress, chronically ill appearing - Routine HEENT Exam Head: Present: normocephalic - Routine Respiratory Exam Present: CTA bilaterally. Absent: accessory muscle use - Routine Abdominal Exam Present: soft, normoactive bowel sounds. Absent: tenderness - Routine Skin Exam Present: dry, warm - Routine Neurological Exam Present: alert <Nancy Patterson - Last Filed: 09/08/18 18:45> Vital signs: Vital Signs 09/08/18 12:00 09/08/18 16:00 09/08/18 20:00 Temperature 99.0 F 99 F Pulse Rate 75 70 68 Respiratory Rate 18 18 Blood Pressure 113/53 L 119/58 L Pulse Oximetry 93 L 93 L 09/08/18 21:34 09/09/18 00:00 09/09/18 04:00 Temperature 98.6 F 98.3 F Pulse Rate 64 70 Respiratory Rate 17 16 Blood Pressure 135/60 138/63 Pulse Oximetry 99 96 94 L Intake & Output 09/08/18 09/09/18 09/09/18 18:59 06:59 18:59 Intake Total 50 / 50 150 / 150 50 / 50 Output Total 1500 / 1500 Balance -1450 / -1450 150 / 150 50 / 50 Weight 73.4 kg Intake: IV 50 / 50 50 / 50 50 / 50 Zosyn 2.25 GM Premix 2.25 gm In 50 / 50 50 / 50 50 / 50 50 ml @ 100 mls/hr IV.SIG Q8H [facility] Rx#:[id number] Oral 100 / 100 Output: Urine 500 / 500 Hemodialysis Amount 1000 / 1000 Other: # Voids 0 Date of Last Bowel Movement 09/06/18 <Samson Colon - Last Filed: 09/09/18 10:01> Results - Labs CBC & Chem 7: 09/08/18 05:53 09/08/18 05:53 Laboratory Results - last 24 hr 09/08/18 09/08/18 05:53 05:53 WBC 6.0 RBC 2.49 L Hgb 7.5 L Hct 22.0 L MCV 88.4 MCH 30.0 MCHC 33.9 RDW 19.2 H Plt Count 91 L MPV 7.6 Prelim Diff (Auto) Slide review pending Neut % (Auto) 61.2 Lymph % (Auto) 29.8 [place] % (Auto) 7.6 Eos % (Auto) 0.8 Baso % (Auto) 0.6 Neut # (Auto) 3.7 Lymph # (Auto) 1.8 [place] # (Auto) 0.5 Eos # (Auto) 0.0 Baso # (Auto) 0.0 WBC Differential Manual diff final Seg Neuts % (Manual) 74 H Band Neuts % (Manual) 3 Lymphocytes % (Manual) 15 Monocytes % (Manual) 5 Eosinophils % (Manual) 1 Metamyelocytes % (Man) 1 Myelocytes % (Man) 1 H Abs Neuts (Manual) 4.7 Nucleated RBCs/100 WBC 1 H Differential Comment . Platelet Estimate Low L Platelet Morphology Normal Sodium 140 Potassium 3.2 L Chloride 102 Carbon Dioxide 24.6 Anion Gap 13 BUN 33 H Creatinine 3.81 H Estimated GFR 16 L Random Glucose 135 H Calcium 7.6 L Total Bilirubin 0.5 AST 26 ALT 21 Alkaline Phosphatase 963 H Total Protein 5.0 L Albumin 1.8 L Microbiology 09/03/18 12:30 Blood - Peripheral Aerobic Blood Culture - Final No growth in 5 days 09/03/18 12:30 Blood - Peripheral Anaerobic Blood Culture - Final No growth in 5 days 09/03/18 12:35 Blood - Peripheral Aerobic Blood Culture - Final No growth in 5 days 09/03/18 12:35 Blood - Peripheral Anaerobic Blood Culture - Final No growth in 5 days <Nancy Patterson - Last Filed: 09/08/18 18:45> - Labs CBC & Chem 7: 09/09/18 07:53 09/09/18 07:53 Laboratory Results - last 24 hr 09/09/18 09/09/18 07:53 07:53 WBC 5.7 RBC 2.50 L Hgb 7.5 L Hct 22.1 L MCV 88.6 MCH 30.1 MCHC 34.0 RDW 19.3 H Plt Count 86 L MPV 7.8 Sodium 141 Potassium 3.3 L Chloride 103 Carbon Dioxide 27.5 Anion Gap 11 BUN 25 H Creatinine 2.96 H Estimated GFR 21 L Random Glucose 97 Calcium 7.5 L Microbiology 09/03/18 12:30 Blood - Peripheral Aerobic Blood Culture - Final No growth in 5 days 09/03/18 12:30 Blood - Peripheral Anaerobic Blood Culture - Final No growth in 5 days 09/03/18 12:35 Blood - Peripheral Aerobic Blood Culture - Final No growth in 5 days 09/03/18 12:35 Blood - Peripheral Anaerobic Blood Culture - Final No growth in 5 days <Samson Colon - Last Filed: 09/09/18 10:01> Assessment and Plan (1) Anemia Status: Acute Code(s): D64.9 - Anemia, unspecified - Plan This patient is a pleasant 63-year-old male with past medical history significant for end-stage renal disease, metastatic prostate cancer, anemia, hypertension. Surgical history significant for orthopedic surgery and placement of AV fistula. Patient presented to [facility] in [place] with report of shortness of breath on exertion and chest pain for 3 days. Upon admission, patient was noted to have a hemoglobin 6.2 hematocrit 19.8 lactic acid 5.0 troponin 13.3. Patient was transferred to [facility] in [place] for further evaluation. Patient denies abdominal pain, nausea or vomiting. Denies diarrhea or constipation. Patient denies any noted bleeding in stools. Patient denies difficulty swallowing or odynophagia. Denies any history of EGD or colonoscopy in the past. Our service has been consulted to evaluate patient for anemia, GI bleed Anemia GI bleed Patient endorses 3-day history of shortness of breath and generalized weakness. History of end-stage renal disease on hemodialysis every Tuesday and Tuesday History of metastatic prostate cancer Chest pain with elevated [id number] 09/03/2018 CT chest reveals following-. Widespread bony metastatic disease. Moderate bilateral pleural effusions worse on the right. Calcified left thyroid mass not changed since 2017. 09/03/2018 hemoglobin 6.2 hematocrit 19.8, posttransfusion 09/04/2018 hemoglobin 9.6 hematocrit 28.1 platelet count 145 INR 2.1 lactic acid 5.0 09/04/2018 lactic acid 1.1 calcium 7.7 total bilirubin 0.4 AST 657 ALT 111 alk phos 1938 troponin 36.60 09/06/2018 Anemia/GI bleed Colonoscopy held for today as patient did not complete GoLYTELY prep. Dr. Colon spoke with patient and patient is now agreeable to complete GoLYTELY prep for colonoscopy tomorrow. There has been no reported bleeding. Hemoglobin 8.1 hematocrit 24.8 stable platelet count 111 09/08/2018 No reported bleeding Patient denies abdominal pain nausea or vomiting Post hemodialysis today WBC 6.0 hemoglobin 7.5 hematocrit 22.0 09/07/2018 colonoscopy revealed the following--Terminal ileum : normal to 10 cm. Colon: 3 3-6 mm polyps were removed in the cecum with cold biopsy forceps technique. Further pull back revealed a 1 cm sessile polyp removed with cold snare technique. In the sigmoid colon about 7 sessile and pedunculated 5 mm to 2 cm polyps were removed using hot snare and cold snare polypectomy technique. The colonic mucosa was otherwise normal. Rectum: In the rectum there were 2 1.5 to 2 cm pedunculated polyps removed with hot snare technique and several small polyps that were sessile that were removed with cold snare technique. Due to the large number of polyps and the status of the patient a decision was made to mostly remove the larger polyps and those that appeared friable. Several smaller, 2-5 mm sessile polyps were left and can be addressed in one year. Plan -Diet as tolerated -High-fiber -Avoid anticoagulation and NSAIDs for 5 days due to large number of polyps resected and risk of delayed bleeding -Advise colonoscopy in 1 year -Analgesics and antiemetics as per attending -Monitor for bleeding -Monitor labs -Supportive care -Continue PPI -Biopsies pending-patient agrees to follow-up with GI post discharge -GI will sign off at this time please notify for any further assistance This patient has been seen by myself and Dr. Colon and this note is written on his behalf - Attending Attestation Dr. Colon <Nancy Patterson - Last Filed: 09/08/18 18:45> (1) Anemia Status: Acute Code(s): D64.9 - Anemia, unspecified - Attending Attestation Patient seen and examined. I agree with the assessment and recommendations above. <Samson Colon - Last Filed: 09/09/18 10:01> <Nancy Patterson - Last Filed: 09/08/18 18:45> (1) Anemia Qualifiers: Anemia type: due to chronic kidney disease Chronic kidney disease stage: on chronic dialysis Qualified Code(s): N18.6 - End stage renal disease; D63.1 - Anemia in chronic kidney disease; Z99.2 - Dependence on renal dialysis <Samson Colon - Last Filed: 09/09/18 10:01> (1) Anemia Qualifiers: Anemia type: due to chronic kidney disease Chronic kidney disease stage: on chronic dialysis Qualified Code(s): N18.6 - End stage renal disease; D63.1 - Anemia in chronic kidney disease; Z99.2 - Dependence on renal dialysis
[2018-09-09] MEDS: Pantoprazole Inj 40 MG Vial IV.PUSH SCH ×2 (01:15→14:11)
--- NOTE | 2018-09-09 01:40 | P.PNCA ---
Subjective Interval history: Seen on HD No complaints Medications and Allergies Active Medications: Active Medications Al Hydroxide/Mg Hydroxide (Milk Of Yaritza Liq) 30 ml PO Q12H PRN PRN Reason: Mild Constipation Albuterol (Albuterol Neb (Prn)) 2.5 mg NEB Q2HR NEB PRN PRN Reason: SHORTNESS OF BREATH Bisacodyl (Dulcolax Supp) 10 mg RECTAL DAILY PRN PRN Reason: SEVERE CONSITIPATION Chlorhexidine Gluconate (Chlorhexidine 2% Cloth) 3 pack TOPICAL DAILY@0400 [facility] Stop: 09/09/18 03:59 Last Admin: 09/08/18 04:46 Dose: Not Given Chlorhexidine Gluconate (Chlorhexidine 2% Cloth) 3 pack TOPICAL DAILY@0400 PRN PRN Reason: Extra cloth needed Stop: 09/09/18 03:59 Clonidine HCl (Catapres) 0.1 mg PO UNSCH PRN PRN Reason: SEE LABEL COMMENTS Diphenhydramine HCl (Benadryl) 25 mg PO UNSCH PRN PRN Reason: SEE LABEL COMMENTS Epoetin Hermes (Epogen Inj) 10,000 unit IV.PUSH UNSCH PRN PRN Reason: SEE LABEL COMMENTS Gelatin (Gelfoam 12 Mm/7 Mm Topical) 1 foam TOPICAL PRN PRN PRN Reason: help stop bleeding from site Gentamicin Sulfate (Gentamicin Inj) 20 mg OTHER WITH DIALYSIS PRN PRN Reason: Dwell Gentamycin Lock Last Admin: 09/04/18 12:51 Dose: 20 mg Heparin Sodium (Porcine) (Heparin Inj) 8,000 units OTHER WITH DIALYSIS PRN PRN Reason: for machine prime Heparin Sodium (Porcine) (Heparin Inj) 1,000 units OTHER WITH DIALYSIS PRN PRN Reason: Dwell Heparin to Fill Catheter Last Admin: 09/04/18 12:51 Dose: 1,000 units Piperacillin/Tazobactam/Dextrose (Zosyn 2.25 Gm Premix) 2.25 gm in 50 mls @ 100 mls/hr IV.SIG Q8H [facility] Last Infusion: 09/08/18 22:09 Dose: Infused Albumin Human (Flexbumin 25% Inj) 100 mls @ 60 mls/hr IV.SIG WITH DIALYSIS PRN PRN Reason: hypotension / volume replace Sodium Chloride (Ns Inj) 1,000 mls @ 0 mls/hr OTHER .Q0M PRN PRN Reason: for prime and rinse back Sodium Chloride (Ns Inj) 1,000 mls @ 0 mls/hr IV.CONT .Q0M PRN PRN Reason: hypotension / volume replace Sodium Chloride (Ns Inj) 1,000 mls @ 200 mls/hr OTHER .Q5H PRN PRN Reason: for dialyzer flush PRN Lactulose (Lactulose Liq) 30 ml PO DAILY PRN PRN Reason: SEVERE CONSITIPATION Mannitol (Mannitol Inj) 12.5 gm IV.PUSH UNSCH PRN PRN Reason: hypotension / volume replace Metoprolol Tartrate (Lopressor) 12.5 mg PO BID [facility] Last Admin: 09/08/18 21:38 Dose: Not Given Metronidazole (Flagyl) 500 mg PO Q8HR [facility] Last Admin: 09/08/18 21:39 Dose: 500 mg Nicotine (Habitrol 7 Mg Patch.24 Hr) 1 patch T-DERMAL DAILY [facility] Last Admin: 09/08/18 13:51 Dose: Not Given Nitroglycerin (Nitrostat Sl) 0.4 mg SL Q5M PRN PRN Reason: CHEST PAIN Ondansetron HCl (Zofran Inj) 4 mg IV.PUSH UNSCH PRN PRN Reason: NAUSEA OR VOMITING Oxycodone/Acetaminophen (Percocet 5/325 Mg) 1 tab PO Q6H PRN PRN Reason: PAIN SCALE 1 TO 10 Last Admin: 09/09/18 01:14 Dose: 1 tab Pantoprazole Sodium (Protonix Inj) 40 mg IV.PUSH Q12H [facility] Last Admin: 09/09/18 01:15 Dose: 40 mg Patch Removal (Remove Old Patch) 1 each T-DERMAL DAILY [facility] Last Admin: 09/08/18 13:54 Dose: Not Given Senna/Docusate Sodium (Negin-Colace) 1 tab PO BID [facility] Last Admin: 09/08/18 21:38 Dose: Not Given Sennosides (Senokot) 17.2 mg PO Q12H PRN PRN Reason: Moderate Constipation Sodium Chloride (Ns Flush) 2 ml IV.FLUSH PRN PRN PRN Reason: FLUSH AFTER USING IV ACCESS Last Admin: 09/06/18 08:37 Dose: 2 ml Sodium Chloride (Ns Flush) 2 ml IV.FLUSH BID [facility] Last Admin: 09/08/18 21:39 Dose: 2 ml Sodium Chloride (Ns Flush) 5 ml IV.FLUSH PRN PRN PRN Reason: flush each lumen during HD Tamsulosin HCl (Flomax) 0.4 mg PO DAILY [facility] Last Admin: 09/08/18 13:43 Dose: 0.4 mg Allergies Allergy/AdvReac Type Severity Reaction Status Date / Time Tetanus Vaccines and Toxoid Allergy Severe Fever Verified 08/13/18 15:46 amoxicillin AdvReac Mild Nausea/Vomi Verified 08/13/18 15:46 ting Home Medications Medication Instructions Recorded Confirmed Type bicalutamide 50 mg PO HS 07/09/18 09/03/18 History tamsulosin [Flomax] 0.4 mg PO DAILY 07/09/18 09/03/18 History Physical Exam Vital signs: Vital Signs 09/08/18 04:00 09/08/18 08:00 09/08/18 12:00 Temperature 97.4 F L 98.3 F Pulse Rate 71 76 75 Respiratory Rate 18 18 Blood Pressure 115/59 L 126/61 Pulse Oximetry 94 L 95 09/08/18 16:00 09/08/18 20:00 09/08/18 21:34 Temperature 99.0 F 99 F Pulse Rate 70 68 Respiratory Rate 18 18 Blood Pressure 113/53 L 119/58 L Pulse Oximetry 93 L 93 L 99 09/09/18 00:00 Temperature 98.6 F Pulse Rate 63 Respiratory Rate 17 Blood Pressure 135/60 Pulse Oximetry 96 Intake & Output 09/08/18 09/08/18 09/09/18 06:59 18:59 06:59 Intake Total 100 / 100 50 / 50 50 / 50 Output Total 0 / 0 1500 / 1500 Balance 100 / 100 -1450 / -1450 50 / 50 Intake: IV 100 / 100 50 / 50 50 / 50 Zosyn 2.25 GM Premix 2.25 gm In 100 / 100 50 / 50 50 / 50 50 ml @ 100 mls/hr IV.SIG Q8H [facility] Rx#:[id number] Oral 0 / 0 Output: Urine 500 / 500 Stool 0 / 0 Hemodialysis Amount 1000 / 1000 Other: # Voids 200 Date of Last Bowel Movement 09/06/18 09/06/18 Narrative: GENERAL: NAD, A&Ox3 NECK: Supple, trachea midline. No JVD CARDIOVASCULAR: Regular rate and rhythm without murmurs, gallops, or rubs. Left arm AVF. Right IJ permacath RESPIRATORY: Breath sounds equal bilaterally. No accessory muscle use. GASTROINTESTINAL: Abdomen soft, non-tender, nondistended. +BS MUSCULOSKELETAL: No cyanosis, or edema. SKIN: Warm and dry. Results 09/08/18 05:53 09/08/18 05:53 Cardiac Enzymes 09/07/18 09/08/18 Range/Units 05:20 05:53 AST 48 H 26 (15-37) U/L CBC 09/07/18 09/08/18 Range/Units 05:20 05:53 WBC 7.9 6.0 (4.0-11.0) th/mm3 RBC 2.86 L 2.49 L (4.50-5.90) mil/mm3 Hgb 8.5 L 7.5 L (13.0-17.0) gm/dL Hct 25.9 L 22.0 L (39.0-51.0) % Plt Count 105 L 91 L (150-450) th/mm3 Neut # (Auto) 4.4 3.7 (1.8-7.7) th/mm3 Lymph # (Auto) 2.8 1.8 (1.0-4.8) th/mm3 Patrick # (Auto) 0.5 0.5 (0.0-0.9) th/mm3 Eos # (Auto) 0.0 0.0 (0.0-0.4) th/mm3 Baso # (Auto) 0.0 0.0 (0.0-0.2) th/mm3 Comprehensive Metabolic Panel 09/07/18 09/08/18 Range/Units 05:20 05:53 Sodium 143 140 (136-145) meq/L Potassium 3.3 L 3.2 L (3.5-5.1) meq/L Chloride 104 102 (98-107) meq/L Carbon Dioxide 28.2 24.6 (21.0-32.0) meq/L BUN 26 H 33 H (7-18) mg/dL Creatinine 3.11 H 3.81 H (0.60-1.30) mg/dL Calcium 8.0 L 7.6 L (8.5-10.1) mg/dL AST 48 H 26 (15-37) U/L ALT 31 21 (12-78) U/L Alkaline Phosphatase 1054 H 963 H (45-117) U/L Total Protein 5.2 L 5.0 L (6.4-8.2) g/dL Albumin 2.0 L 1.8 L (3.4-5.0) g/dL Intake and Output 09/08/18 09/08/18 09/09/18 14:59 22:59 06:59 Intake Total 50 / 50 50 / 50 Output Total 1000 / 1000 500 / 500 Balance -950 / -950 -450 / -450 Intake: IV 50 / 50 50 / 50 Zosyn 2.25 GM Premix 2.25 gm In 50 / 50 50 / 50 50 ml @ 100 mls/hr IV.SIG Q8H [facility] Rx#:[id number] Output: Urine 500 / 500 Hemodialysis Amount 1000 / 1000 Other: Date of Last Bowel Movement 09/06/18 Assessment and Plan - Assessment (1) Elevated troponin Code(s): R74.8 - Abnormal levels of other serum enzymes Status: Acute Plan: as detailed in my note yesterday, likely has underlying cad though unclear if truly nstemi vs symptomatic anemia (2) GI (gastrointestinal bleed) Code(s): K92.2 - Gastrointestinal hemorrhage, unspecified Status: Acute Plan: ok for colonoscopy/egd (noting somewhat higher risk due to potential cardiac ischemia); cath would likely require anticoagulation so need to make sure no active bleeding prior. (3) Anemia Code(s): D64.9 - Anemia, unspecified Status: Acute (4) NSTEMI (non-ST elevated myocardial infarction) Code(s): I21.4 - Non-ST elevation (NSTEMI) myocardial infarction Status: Acute Plan: for now asa held due to gi bleed; statin held due to elevated LFTs; added bb. (5) End stage renal disease Code(s): N18.6 - End stage renal disease Status: Chronic - Plan 1) Significant anemia EGD negative for bleeding source Cscope showing multiple polyps 2) NSTEMI Possible symptomatic anemia Most likely has underlying CAD Discussed consideration of cardiac catheterization Planned for today but with drop in Hgb (most likely secondary to polyp removal) and decrease in platelets, will hold off today, discussed with patient GI recommending to wait on any anticoagulation in the near future due to multiple polyps removed Will consider Tuesday, continue to follow Hgb levels 3) Metastatic prostate cancer (3) Anemia Qualifiers: Anemia type: due to chronic kidney disease Chronic kidney disease stage: on chronic dialysis Qualified Code(s): N18.6 - End stage renal disease; D63.1 - Anemia in chronic kidney disease; Z99.2 - Dependence on renal dialysis
[2018-09-09] MEDS: Piperacil/Tazo 2.25 GM Premix 2.25 GM/50 ML PIGGYBACK IV.SIG SCH (05:26)
[2018-09-09] MEDS: metroNIDAZOLE 500 MG Tablet PO SCH (05:26)
[2018-09-09 08:29] LABS: Hematocrit 22.1 % (39.0-51.0); Hemoglobin 7.5 gm/dL (13.0-17.0); Mean Corpuscular Hemoglobin 30.1 pg (27.0-34.0); Mean Corpuscular Volume 88.6 fL (80.0-100.0); Mean Platelet Volume 7.8 fL (7.0-11.0); Platelet Count 86 th/mm3 (150-450); Red Cell Distribution Width 19.3 % (11.6-17.2); White Blood Count 5.7 th/mm3 (4.0-11.0)
[2018-09-09] MEDS: Metoprolol Tartrate 25 MG Tablet PO SCH ×2 (08:33→20:46)
[2018-09-09] MEDS: Senna/Docusate Sodium 8.6/50 MG Tablet PO SCH ×2 (08:34→20:50)
[2018-09-09 08:50] LABS: Calcium 7.5 mg/dL (8.5-10.1); Carbon Dioxide 27.5 meq/L (21.0-32.0); Potassium 3.3 meq/L (3.5-5.1)
--- NOTE | 2018-09-09 13:55 | P.PNIM ---
Subjective Interval history: Patient reports he is feeling okay today. No bowel movements. He has been passing gas. Tolerating a diet. He remains weak. Physical Exam Vital signs: Last Vital Signs Temp 98.1 F 09/09/18 08:00 Pulse 60 09/09/18 08:00 Resp 20 09/09/18 08:00 BP 130/62 09/09/18 08:00 Pulse Ox 96 09/09/18 08:00 Intake & Output 09/07/18 09/08/18 09/09/18 09/10/18 06:59 06:59 06:59 06:59 Intake Total 1600 / 1600 300 / 300 200 / 200 50 / 50 Output Total 2500 / 2500 0 / 0 1500 / 1500 Balance -900 / -900 300 / 300 -1300 / -1300 50 / 50 Weight 72.5 kg 72.8 kg 73.4 kg Narrative: GENERAL: NAD, A&Ox3 NECK: Supple, trachea midline. No JVD CARDIOVASCULAR: Regular rate and rhythm without murmurs, gallops, or rubs. Left arm AVF. Right IJ permacath RESPIRATORY: Breath sounds equal bilaterally. No accessory muscle use. GASTROINTESTINAL: Abdomen soft, non-tender, nondistended. +BS MUSCULOSKELETAL: No cyanosis, or edema. SKIN: Warm and dry. Results Labs CBC & Chem 7: 09/09/18 07:53 09/09/18 07:53 Labs: Microbiology 09/03/18 12:30 Blood - Peripheral Aerobic Blood Culture - Final No growth in 5 days 09/03/18 12:30 Blood - Peripheral Anaerobic Blood Culture - Final No growth in 5 days 09/03/18 12:35 Blood - Peripheral Aerobic Blood Culture - Final No growth in 5 days 09/03/18 12:35 Blood - Peripheral Anaerobic Blood Culture - Final No growth in 5 days Assessment and Plan (1) End stage renal disease: Code(s): N18.6 - End stage renal disease Status: Chronic (2) Anemia: Code(s): D64.9 - Anemia, unspecified Status: Acute (3) Joint pain: Code(s): M25.50 - Pain in unspecified joint Status: Deleted (4) Dyspnea: Code(s): R06.00 - Dyspnea, unspecified Status: Acute (5) Prostate cancer metastatic to bone: Code(s): C61 - Malignant neoplasm of prostate; C79.51 - Secondary malignant neoplasm of bone Status: Chronic Plan 63yM presenting with type II NSTEMI secondary to acute blood loss anemia/ suspected recurrent lower GI bleed GI bleed Gastroenterology following EGD shows no significant source of bleed Colonoscopy revealed multiple colon polyps. Some of the polyps were removed. Per GI, recommend delaying anticoagulation or NSAIDs for 5 days due to large number of polyps resected and risk of delayed bleeding Follow CBC, H&H stable today but thrombocytopenia is slightly worse. Transfuse again as needed hemoglobin less than 7.5 Type II NSTEMI Cardiology following. Discussed with Dr. Contreras Follow on telemetry Cardiology considering heart catheterization when labs are better. Hyperlipidemia Continue present treatment Follow as an outpatient Nicotine dependence Cessation recommended Metastatic prostate cancer Continue as needed pain treatments Continue Flomax Bilateral pleural effusions Right greater than left Dyspnea Continue incentive spirometry Continue as needed duo nebs Improved from a respiratory standpoint. Discontinue antibiotics as cultures remain negative. Acute hyperkalemia End-stage renal disease Hemodialysis dependence Continue dialysis Nephrology following DVT prophylaxis SCDs Progress Note: Quality VTE Deep Vein Thrombosis/Pulmonary Embolism Present on Admission: No _ (1) Anemia Qualifiers: Anemia type: due to chronic kidney disease Bone marrow failure anemia type: Chronic kidney disease stage: on chronic dialysis Folate deficiency anemia type: Hemolytic anemia type: Iron deficiency anemia type: Other causes of anemia: Vitamin B12 deficiency anemia type: Qualified Code(s): N18.6 - End stage renal disease; D63.1 - Anemia in chronic kidney disease; Z99.2 - Dependence on renal dialysis (2) Joint pain Qualifiers: Joint pain location: hip Laterality: left Qualified Code(s): M25.552 - Pain in left hip (3) Dyspnea Qualifiers: Dyspnea type: shortness of breath Qualified Code(s): R06.02 - Shortness of breath; R06.00 - Dyspnea, unspecified; R06.01 - Orthopnea
--- NOTE | 2018-09-09 16:51 | P.PNCA ---
Subjective Interval history: No events overnight Feels weak Medications and Allergies Active Medications: Active Medications Al Hydroxide/Mg Hydroxide (Milk Of Magnesia Liq) 30 ml PO Q12H PRN PRN Reason: Mild Constipation Albuterol (Albuterol Neb (Prn)) 2.5 mg NEB Q2HR NEB PRN PRN Reason: SHORTNESS OF BREATH Bisacodyl (Dulcolax Supp) 10 mg RECTAL DAILY PRN PRN Reason: SEVERE CONSITIPATION Clonidine HCl (Catapres) 0.1 mg PO UNSCH PRN PRN Reason: SEE LABEL COMMENTS Diphenhydramine HCl (Benadryl) 25 mg PO UNSCH PRN PRN Reason: SEE LABEL COMMENTS Epoetin Hermes (Epogen Inj) 10,000 unit IV.PUSH UNSCH PRN PRN Reason: SEE LABEL COMMENTS Gelatin (Gelfoam 12 Mm/7 Mm Topical) 1 foam TOPICAL PRN PRN PRN Reason: help stop bleeding from site Gentamicin Sulfate (Gentamicin Inj) 20 mg OTHER WITH DIALYSIS PRN PRN Reason: Dwell Gentamycin Lock Last Admin: 09/04/18 12:51 Dose: 20 mg Heparin Sodium (Porcine) (Heparin Inj) 8,000 units OTHER WITH DIALYSIS PRN PRN Reason: for machine prime Heparin Sodium (Porcine) (Heparin Inj) 1,000 units OTHER WITH DIALYSIS PRN PRN Reason: Dwell Heparin to Fill Catheter Last Admin: 09/04/18 12:51 Dose: 1,000 units Albumin Human (Flexbumin 25% Inj) 100 mls @ 60 mls/hr IV.SIG WITH DIALYSIS PRN PRN Reason: hypotension / volume replace Sodium Chloride (Ns Inj) 1,000 mls @ 0 mls/hr OTHER .Q0M PRN PRN Reason: for prime and rinse back Sodium Chloride (Ns Inj) 1,000 mls @ 0 mls/hr IV.CONT .Q0M PRN PRN Reason: hypotension / volume replace Sodium Chloride (Ns Inj) 1,000 mls @ 200 mls/hr OTHER .Q5H PRN PRN Reason: for dialyzer flush PRN Lactobacillus Acidophilus (Lactinex) 1 tab PO BID [facility] Lactulose (Lactulose Liq) 30 ml PO DAILY PRN PRN Reason: SEVERE CONSITIPATION Mannitol (Mannitol Inj) 12.5 gm IV.PUSH UNSCH PRN PRN Reason: hypotension / volume replace Metoprolol Tartrate (Lopressor) 12.5 mg PO BID [facility] Last Admin: 09/09/18 08:33 Dose: 12.5 mg Nicotine (Habitrol 7 Mg Patch.24 Hr) 1 patch T-DERMAL DAILY [facility] Last Admin: 09/09/18 08:34 Dose: Not Given Nitroglycerin (Nitrostat Sl) 0.4 mg SL Q5M PRN PRN Reason: CHEST PAIN Ondansetron HCl (Zofran Inj) 4 mg IV.PUSH UNSCH PRN PRN Reason: NAUSEA OR VOMITING Oxycodone/Acetaminophen (Percocet 5/325 Mg) 1 tab PO Q6H PRN PRN Reason: PAIN SCALE 1 TO 10 Last Admin: 09/09/18 14:40 Dose: 1 tab Pantoprazole Sodium (Protonix Inj) 40 mg IV.PUSH Q12H [facility] Last Admin: 09/09/18 14:11 Dose: 40 mg Patch Removal (Remove Old Patch) 1 each T-DERMAL DAILY [facility] Last Admin: 09/09/18 08:34 Dose: Not Given Senna/Docusate Sodium (Negin-Colace) 1 tab PO BID [facility] Last Admin: 09/09/18 08:34 Dose: 1 tab Sennosides (Senokot) 17.2 mg PO Q12H PRN PRN Reason: Moderate Constipation Sodium Chloride (Ns Flush) 2 ml IV.FLUSH PRN PRN PRN Reason: FLUSH AFTER USING IV ACCESS Last Admin: 09/06/18 08:37 Dose: 2 ml Sodium Chloride (Ns Flush) 2 ml IV.FLUSH BID [facility] Last Admin: 09/09/18 08:34 Dose: 2 ml Sodium Chloride (Ns Flush) 5 ml IV.FLUSH PRN PRN PRN Reason: flush each lumen during HD Tamsulosin HCl (Flomax) 0.4 mg PO DAILY [facility] Last Admin: 09/09/18 08:34 Dose: 0.4 mg Allergies Allergy/AdvReac Type Severity Reaction Status Date / Time Tetanus Vaccines and Toxoid Allergy Severe Fever Verified 08/13/18 15:46 amoxicillin AdvReac Mild Nausea/Vomi Verified 08/13/18 15:46 ting Home Medications Medication Instructions Recorded Confirmed Type bicalutamide 50 mg PO HS 07/09/18 09/03/18 History tamsulosin [Flomax] 0.4 mg PO DAILY 07/09/18 09/03/18 History Physical Exam Vital signs: Vital Signs 09/08/18 20:00 09/08/18 21:34 09/09/18 00:00 Temperature 99 F 98.6 F Pulse Rate 68 64 Respiratory Rate 18 17 Blood Pressure 119/58 L 135/60 Pulse Oximetry 93 L 99 96 09/09/18 04:00 09/09/18 08:00 09/09/18 15:43 Temperature 98.3 F 98.1 F Pulse Rate 70 65 62 Respiratory Rate 16 20 Blood Pressure 138/63 130/62 Pulse Oximetry 94 L 96 Intake & Output 09/08/18 09/09/18 09/09/18 18:59 06:59 18:59 Intake Total 50 / 50 150 / 150 50 / 50 Output Total 1500 / 1500 Balance -1450 / -1450 150 / 150 50 / 50 Weight 73.4 kg Intake: IV 50 / 50 50 / 50 50 / 50 Zosyn 2.25 GM Premix 2.25 gm In 50 / 50 50 / 50 50 / 50 50 ml @ 100 mls/hr IV.SIG Q8H [facility] Rx#:[id number] Oral 100 / 100 Output: Urine 500 / 500 Hemodialysis Amount 1000 / 1000 Other: # Voids 0 Date of Last Bowel Movement 09/06/18 09/06/18 Narrative: GENERAL: NAD, A&Ox3 NECK: Supple, trachea midline. No JVD CARDIOVASCULAR: Regular rate and rhythm without murmurs, gallops, or rubs. Left arm AVF. Right IJ permacath RESPIRATORY: Breath sounds equal bilaterally. No accessory muscle use. GASTROINTESTINAL: Abdomen soft, non-tender, nondistended. +BS MUSCULOSKELETAL: No cyanosis, or edema. SKIN: Warm and dry. Results 09/09/18 07:53 09/09/18 07:53 Cardiac Enzymes 09/08/18 Range/Units 05:53 AST 26 (15-37) U/L CBC 09/08/18 09/09/18 Range/Units 05:53 07:53 WBC 6.0 5.7 (4.0-11.0) th/mm3 RBC 2.49 L 2.50 L (4.50-5.90) mil/mm3 Hgb 7.5 L 7.5 L (13.0-17.0) gm/dL Hct 22.0 L 22.1 L (39.0-51.0) % Plt Count 91 L 86 L (150-450) th/mm3 Neut # (Auto) 3.7 (1.8-7.7) th/mm3 Lymph # (Auto) 1.8 (1.0-4.8) th/mm3 Storey # (Auto) 0.5 (0.0-0.9) th/mm3 Eos # (Auto) 0.0 (0.0-0.4) th/mm3 Baso # (Auto) 0.0 (0.0-0.2) th/mm3 Comprehensive Metabolic Panel 09/08/18 09/09/18 Range/Units 05:53 07:53 Sodium 140 141 (136-145) meq/L Potassium 3.2 L 3.3 L (3.5-5.1) meq/L Chloride 102 103 (98-107) meq/L Carbon Dioxide 24.6 27.5 (21.0-32.0) meq/L BUN 33 H 25 H (7-18) mg/dL Creatinine 3.81 H 2.96 H (0.60-1.30) mg/dL Calcium 7.6 L 7.5 L (8.5-10.1) mg/dL AST 26 (15-37) U/L ALT 21 (12-78) U/L Alkaline Phosphatase 963 H (45-117) U/L Total Protein 5.0 L (6.4-8.2) g/dL Albumin 1.8 L (3.4-5.0) g/dL Intake and Output 09/09/18 09/09/18 09/09/18 06:59 14:59 22:59 Intake Total 100 / 100 50 / 50 Balance 100 / 100 50 / 50 Intake: IV 50 / 50 Zosyn 2.25 GM Premix 2.25 gm In 50 / 50 50 ml @ 100 mls/hr IV.SIG Q8H [facility] Rx#:[id number] Oral 100 / 100 Other: # Voids 0 Date of Last Bowel Movement 09/06/18 Weight 73.4 kg Assessment and Plan - Assessment (1) Elevated troponin Code(s): R74.8 - Abnormal levels of other serum enzymes Status: Acute Plan: as detailed in my note yesterday, likely has underlying cad though unclear if truly nstemi vs symptomatic anemia (2) GI (gastrointestinal bleed) Code(s): K92.2 - Gastrointestinal hemorrhage, unspecified Status: Acute Plan: ok for colonoscopy/egd (noting somewhat higher risk due to potential cardiac ischemia); cath would likely require anticoagulation so need to make sure no active bleeding prior. (3) Anemia Code(s): D64.9 - Anemia, unspecified Status: Acute (4) NSTEMI (non-ST elevated myocardial infarction) Code(s): I21.4 - Non-ST elevation (NSTEMI) myocardial infarction Status: Acute Plan: for now asa held due to gi bleed; statin held due to elevated LFTs; added bb. (5) End stage renal disease Code(s): N18.6 - End stage renal disease Status: Chronic - Plan 1) Significant anemia EGD negative for bleeding source Cscope showing multiple polyps 2) NSTEMI Possible symptomatic anemia Most likely has underlying CAD Discussed consideration of cardiac catheterization Planned but with drop in Hgb (most likely secondary to polyp removal) and decrease in platelets, will hold off, discussed with patient GI recommending to wait on any anticoagulation in the near future due to multiple polyps removed Will consider Tuesday, continue to follow Hgb levels Platelet decreased further, discussed with Dr. Miranda about stopping Zosyn due to thrombocytopenia 3) Metastatic prostate cancer (3) Anemia Qualifiers: Anemia type: due to chronic kidney disease Chronic kidney disease stage: on chronic dialysis Qualified Code(s): N18.6 - End stage renal disease; D63.1 - Anemia in chronic kidney disease; Z99.2 - Dependence on renal dialysis
--- NOTE | 2018-09-09 20:11 | P.PNNP ---
Subjective Interval history: Tired today Physical Exam Vital signs: Vital Signs 09/08/18 21:34 09/09/18 00:00 09/09/18 04:00 Temperature 98.6 F 98.3 F Pulse Rate 64 70 Respiratory Rate 17 16 Blood Pressure 135/60 138/63 Pulse Oximetry 99 96 94 L 09/09/18 08:00 09/09/18 12:00 09/09/18 15:43 Temperature 98.1 F 98.1 F Pulse Rate 65 64 62 Respiratory Rate 20 20 Blood Pressure 130/62 125/58 L Pulse Oximetry 96 97 09/09/18 16:00 Temperature 98 F Pulse Rate 69 Respiratory Rate 20 Blood Pressure 127/59 L Pulse Oximetry 97 Intake & Output 09/09/18 09/09/18 09/10/18 06:59 18:59 06:59 Intake Total 150 / 150 50 / 50 Balance 150 / 150 50 / 50 Weight 73.4 kg Intake: IV 50 / 50 50 / 50 Zosyn 2.25 GM Premix 2.25 gm In 50 / 50 50 / 50 50 ml @ 100 mls/hr IV.SIG Q8H [facility] Rx#:[id number] Oral 100 / 100 Other: # Voids 0 Date of Last Bowel Movement 09/06/18 09/06/18 - Constitutional no acute distress - Routine HEENT Exam Head: Present: normocephalic Eye: Present: EOMI ENT: Present: mucous membranes moist - Routine Neck Exam Present: supple - Routine Respiratory Exam Present: decreased breath sounds - Routine Cardiovascular Exam Present: RRR - Routine Abdominal Exam Present: soft - Routine Extremities Exam Present: full ROM - Routine Skin Exam Present: intact - Routine Neurological Exam Present: alert - Detailed Neurological Exam: Coma Scale Eye Opening: Spontaneous - Routine Psychiatric Exam Present: normal affect Assessment and Plan - Assessment (1) End stage renal disease Code(s): N18.6 - End stage renal disease Status: Chronic (2) Anemia Code(s): D64.9 - Anemia, unspecified Status: Acute Qualifiers: Anemia type: due to chronic kidney disease Chronic kidney disease stage: on chronic dialysis Qualified Code(s): N18.6 - End stage renal disease; D63.1 - Anemia in chronic kidney disease; Z99.2 - Dependence on renal dialysis (3) Dyspnea Code(s): R06.00 - Dyspnea, unspecified Status: Acute Qualifiers: Dyspnea type: shortness of breath Qualified Code(s): R06.02 - Shortness of breath; R06.00 - Dyspnea, unspecified; R06.01 - Orthopnea (4) Prostate cancer metastatic to bone Code(s): C61 - Malignant neoplasm of prostate; C79.51 - Secondary malignant neoplasm of bone Status: Chronic - Plan HD MWF Holiday schedule - will do HD tomorrow, then next HD Tuesday 500cc UOP, continue to monitor. Has current right IJ catheter Left upper arm AVF with recent infiltration, pulsatile with possible outflow vein stenosis vs infiltration swelling. Allow AVF to rest, may re-evaluate as an outpatient. Post colonoscopy yesterday - multiple polyps, larger polyps removed Hgb. is 7.5, transfuse if needed Following with cardiology - possible cath when stable metastatic prostate cancer .
[2018-09-09] MEDS: Lactobacillus Acidophilus/L. Spores Tablet PO SCH (20:46)
[2018-09-10] MEDS: Pantoprazole Inj 40 MG Vial IV.PUSH SCH ×2 (02:34→14:43)
[2018-09-10] MEDS: Metoprolol Tartrate 25 MG Tablet PO SCH ×2 (09:36→20:00)
[2018-09-10] MEDS: Lactobacillus Acidophilus/L. Spores Tablet PO SCH ×2 (09:36→20:00)
[2018-09-10 11:20] LABS: Hematocrit 24.7 % (39.0-51.0); Hemoglobin 8.2 gm/dL (13.0-17.0); Mean Corpuscular HGB Conc 33.3 % (32.0-36.0); Mean Corpuscular Hemoglobin 30.1 pg (27.0-34.0); Mean Corpuscular Volume 90.5 fL (80.0-100.0); Platelet Count 90 th/mm3 (150-450); Red Blood Count 2.73 mil/mm3 (4.50-5.90); Red Cell Distribution Width 19.2 % (11.6-17.2); White Blood Count 6.5 th/mm3 (4.0-11.0)
[2018-09-10] MEDS: Senna/Docusate Sodium 8.6/50 MG Tablet PO SCH ×2 (11:48→20:00)
[2018-09-10 12:06] LABS: Calcium 7.1 mg/dL (8.5-10.1); Carbon Dioxide 26.7 meq/L (21.0-32.0); Potassium 3.3 meq/L (3.5-5.1)
--- NOTE | 2018-09-10 12:11 | P.PNIM ---
Subjective Interval history: Patient reports he is feeling better today. No chest pain or shortness of breath. No diarrhea. Physical Exam Vital signs: Last Vital Signs Temp 98.7 F 09/10/18 04:00 Pulse 76 09/10/18 04:00 Resp 17 09/10/18 04:00 BP 139/63 09/10/18 04:00 Pulse Ox 94 L 09/10/18 04:00 Intake & Output 09/08/18 09/09/18 09/10/18 09/11/18 06:59 06:59 06:59 06:59 Intake Total 300 / 300 200 / 200 290 / 290 Output Total 0 / 0 1500 / 1500 550 / 550 Balance 300 / 300 -1300 / -1300 -260 / -260 Weight 72.8 kg 73.4 kg 72.7 kg Narrative: GENERAL: NAD, A&Ox3 NECK: Supple, trachea midline. No JVD CARDIOVASCULAR: Regular rate and rhythm without murmurs, gallops, or rubs. Left arm AVF. Right IJ permacath RESPIRATORY: Breath sounds equal bilaterally. No accessory muscle use. GASTROINTESTINAL: Abdomen soft, non-tender, nondistended. +BS MUSCULOSKELETAL: No cyanosis, or edema. SKIN: Warm and dry. Results Labs CBC & Chem 7: 09/10/18 10:23 09/10/18 10:23 Assessment and Plan (1) End stage renal disease: Code(s): N18.6 - End stage renal disease Status: Chronic (2) Anemia: Code(s): D64.9 - Anemia, unspecified Status: Acute (3) Joint pain: Code(s): M25.50 - Pain in unspecified joint Status: Deleted (4) Dyspnea: Code(s): R06.00 - Dyspnea, unspecified Status: Acute (5) Prostate cancer metastatic to bone: Code(s): C61 - Malignant neoplasm of prostate; C79.51 - Secondary malignant neoplasm of bone Status: Chronic Plan 63yM presenting with type II NSTEMI secondary to acute blood loss anemia/ suspected recurrent lower GI bleed GI bleed Gastroenterology following EGD shows no significant source of bleed Colonoscopy revealed multiple colon polyps. Some of the polyps were removed. Per GI, recommend delaying anticoagulation or NSAIDs for 5 days due to large number of polyps resected and risk of delayed bleeding Follow CBC, H&H and platelets slightly improved today. Continue to monitor Type II NSTEMI Cardiology following. Discussed with Dr. Contreras Follow on telemetry Cardiology considering heart catheterization tomorrow. Hyperlipidemia Continue present treatment Follow as an outpatient Nicotine dependence Cessation recommended Metastatic prostate cancer Continue as needed pain treatments Continue Flomax Bilateral pleural effusions Right greater than left Dyspnea Continue incentive spirometry Continue as needed duo nebs Improved from a respiratory standpoint. Discontinue antibiotics as cultures remain negative. Acute hyperkalemia End-stage renal disease Hemodialysis dependence Continue dialysis Nephrology following DVT prophylaxis SCDs Progress Note: Quality VTE Deep Vein Thrombosis/Pulmonary Embolism Present on Admission: No _ (1) Joint pain Qualifiers: Joint pain location: hip Laterality: left Qualified Code(s): M25.552 - Pain in left hip (2) Anemia Qualifiers: Anemia type: due to chronic kidney disease Bone marrow failure anemia type: Chronic kidney disease stage: on chronic dialysis Folate deficiency anemia type: Hemolytic anemia type: Iron deficiency anemia type: Other causes of anemia: Vitamin B12 deficiency anemia type: Qualified Code(s): N18.6 - End stage renal disease; D63.1 - Anemia in chronic kidney disease; Z99.2 - Dependence on renal dialysis (3) Dyspnea Qualifiers: Dyspnea type: shortness of breath Qualified Code(s): R06.02 - Shortness of breath; R06.00 - Dyspnea, unspecified; R06.01 - Orthopnea
[2018-09-10 12:23] LABS: Albumin 1.8 g/dL (3.4-5.0); Calcium-Albumin Corrected 8.9 mg/dL (8.5-10.1)
--- NOTE | 2018-09-10 14:48 | P.PNNP ---
Subjective Interval history: no acute complaints, seen on dialysis and tolerating HD well Physical Exam Vital signs: Vital Signs 09/09/18 15:43 09/09/18 16:00 09/09/18 20:00 Temperature 98 F 98.2 F Pulse Rate 62 69 65 Respiratory Rate 20 16 Blood Pressure 127/59 L 144/63 H Pulse Oximetry 97 96 09/09/18 20:12 09/10/18 00:00 09/10/18 00:07 Temperature 98.3 F Pulse Rate 67 59 L 59 L Respiratory Rate 18 Blood Pressure 144/64 H Pulse Oximetry 99 09/10/18 04:00 09/10/18 08:00 09/10/18 12:00 Temperature 98.7 F Pulse Rate 76 72 64 Respiratory Rate 17 Blood Pressure 139/63 Pulse Oximetry 94 L 09/10/18 13:07 Temperature Pulse Rate Respiratory Rate Blood Pressure Pulse Oximetry 94 L Intake & Output 09/09/18 09/10/18 09/10/18 18:59 06:59 18:59 Intake Total 50 / 50 240 / 240 Output Total 550 / 550 Balance 50 / 50 -310 / -310 Weight 72.7 kg Intake: IV 50 / 50 Zosyn 2.25 GM Premix 2.25 gm In 50 / 50 50 ml @ 100 mls/hr IV.SIG Q8H [facility] Rx#:[id number] Oral 240 / 240 Output: Urine 550 / 550 Other: Date of Last Bowel Movement 09/06/18 09/09/18 - Constitutional no acute distress - Routine HEENT Exam Head: Present: normocephalic Eye: Present: EOMI ENT: Present: mucous membranes moist - Routine Neck Exam Present: supple - Routine Respiratory Exam Present: decreased breath sounds - Routine Cardiovascular Exam Present: RRR - Routine Abdominal Exam Present: soft - Routine Skin Exam Present: intact - Routine Neurological Exam Present: alert, oriented X3 - Detailed Neurological Exam: Coma Scale Eye Opening: Spontaneous - Routine Psychiatric Exam Present: normal affect Assessment and Plan - Assessment (1) End stage renal disease Code(s): N18.6 - End stage renal disease Status: Chronic (2) Anemia Code(s): D64.9 - Anemia, unspecified Status: Acute Qualifiers: Anemia type: due to chronic kidney disease Chronic kidney disease stage: on chronic dialysis Qualified Code(s): N18.6 - End stage renal disease; D63.1 - Anemia in chronic kidney disease; Z99.2 - Dependence on renal dialysis (3) Dyspnea Code(s): R06.00 - Dyspnea, unspecified Status: Acute Qualifiers: Dyspnea type: shortness of breath Qualified Code(s): R06.02 - Shortness of breath; R06.00 - Dyspnea, unspecified; R06.01 - Orthopnea (4) Prostate cancer metastatic to bone Code(s): C61 - Malignant neoplasm of prostate; C79.51 - Secondary malignant neoplasm of bone Status: Chronic - Plan HD MWF Holiday schedule - seen on HD today, then next HD Tuesday 500cc UOP, continue to monitor. Has current right IJ catheter Left upper arm AVF with recent infiltration, pulsatile with possible outflow vein stenosis vs infiltration swelling. Allow AVF to rest, may re-evaluate as an outpatient. Post colonoscopy Tuesday - multiple polyps, larger polyps removed Hgb. 8.2, transfuse as needed On epogen with dialysis Following with cardiology - possible cath when stable metastatic prostate cancer .
--- NOTE | 2018-09-10 15:09 | P.PNCA ---
Subjective Interval history: No events overnight Feels better overall, less weak Medications and Allergies Active Medications: Active Medications Al Hydroxide/Mg Hydroxide (Milk Of Magnesia Liq) 30 ml PO Q12H PRN PRN Reason: Mild Constipation Albuterol (Albuterol Neb (Prn)) 2.5 mg NEB Q2HR NEB PRN PRN Reason: SHORTNESS OF BREATH Bisacodyl (Dulcolax Supp) 10 mg RECTAL DAILY PRN PRN Reason: SEVERE CONSITIPATION Clonidine HCl (Catapres) 0.1 mg PO UNSCH PRN PRN Reason: SEE LABEL COMMENTS Diphenhydramine HCl (Benadryl) 25 mg PO UNSCH PRN PRN Reason: SEE LABEL COMMENTS Epoetin Hermes (Epogen Inj) 10,000 unit IV.PUSH UNSCH PRN PRN Reason: SEE LABEL COMMENTS Gelatin (Gelfoam 12 Mm/7 Mm Topical) 1 foam TOPICAL PRN PRN PRN Reason: help stop bleeding from site Gentamicin Sulfate (Gentamicin Inj) 20 mg OTHER WITH DIALYSIS PRN PRN Reason: Dwell Gentamycin Lock Last Admin: 09/04/18 12:51 Dose: 20 mg Heparin Sodium (Porcine) (Heparin Inj) 8,000 units OTHER WITH DIALYSIS PRN PRN Reason: for machine prime Heparin Sodium (Porcine) (Heparin Inj) 1,000 units OTHER WITH DIALYSIS PRN PRN Reason: Dwell Heparin to Fill Catheter Last Admin: 09/04/18 12:51 Dose: 1,000 units Albumin Human (Flexbumin 25% Inj) 100 mls @ 60 mls/hr IV.SIG WITH DIALYSIS PRN PRN Reason: hypotension / volume replace Sodium Chloride (Ns Inj) 1,000 mls @ 0 mls/hr OTHER .Q0M PRN PRN Reason: for prime and rinse back Sodium Chloride (Ns Inj) 1,000 mls @ 0 mls/hr IV.CONT .Q0M PRN PRN Reason: hypotension / volume replace Sodium Chloride (Ns Inj) 1,000 mls @ 200 mls/hr OTHER .Q5H PRN PRN Reason: for dialyzer flush PRN Lactobacillus Acidophilus (Lactinex) 1 tab PO BID [facility] Last Admin: 09/10/18 09:36 Dose: 1 tab Lactulose (Lactulose Liq) 30 ml PO DAILY PRN PRN Reason: SEVERE CONSITIPATION Mannitol (Mannitol Inj) 12.5 gm IV.PUSH UNSCH PRN PRN Reason: hypotension / volume replace Metoprolol Tartrate (Lopressor) 12.5 mg PO BID [facility] Last Admin: 09/10/18 09:36 Dose: 12.5 mg Nicotine (Habitrol 7 Mg Patch.24 Hr) 1 patch T-DERMAL DAILY [facility] Last Admin: 09/10/18 11:47 Dose: Not Given Nitroglycerin (Nitrostat Sl) 0.4 mg SL Q5M PRN PRN Reason: CHEST PAIN Ondansetron HCl (Zofran Inj) 4 mg IV.PUSH UNSCH PRN PRN Reason: NAUSEA OR VOMITING Oxycodone/Acetaminophen (Percocet 5/325 Mg) 1 tab PO Q6H PRN PRN Reason: PAIN SCALE 1 TO 10 Last Admin: 09/10/18 07:00 Dose: 1 tab Pantoprazole Sodium (Protonix Inj) 40 mg IV.PUSH Q12H [facility] Last Admin: 09/10/18 14:43 Dose: Not Given Patch Removal (Remove Old Patch) 1 each T-DERMAL DAILY [facility] Last Admin: 09/10/18 11:48 Dose: Not Given Senna/Docusate Sodium (Negin-Colace) 1 tab PO BID [facility] Last Admin: 09/10/18 11:48 Dose: Not Given Sennosides (Senokot) 17.2 mg PO Q12H PRN PRN Reason: Moderate Constipation Sodium Chloride (Ns Flush) 2 ml IV.FLUSH PRN PRN PRN Reason: FLUSH AFTER USING IV ACCESS Last Admin: 09/06/18 08:37 Dose: 2 ml Sodium Chloride (Ns Flush) 2 ml IV.FLUSH BID [facility] Last Admin: 09/10/18 11:48 Dose: 2 ml Sodium Chloride (Ns Flush) 5 ml IV.FLUSH PRN PRN PRN Reason: flush each lumen during HD Tamsulosin HCl (Flomax) 0.4 mg PO DAILY [facility] Last Admin: 09/10/18 09:36 Dose: 0.4 mg Allergies Allergy/AdvReac Type Severity Reaction Status Date / Time Tetanus Vaccines and Toxoid Allergy Severe Fever Verified 08/13/18 15:46 amoxicillin AdvReac Mild Nausea/Vomi Verified 08/13/18 15:46 ting Home Medications Medication Instructions Recorded Confirmed Type bicalutamide 50 mg PO 07/09/18 09/03/18 History tamsulosin [Flomax] 0.4 mg PO DAILY 07/09/18 09/03/18 History Physical Exam Vital signs: Vital Signs 09/09/18 15:43 09/09/18 16:00 09/09/18 20:00 Temperature 98 F 98.2 F Pulse Rate 62 69 65 Respiratory Rate 20 16 Blood Pressure 127/59 L 144/63 H Pulse Oximetry 97 96 09/09/18 20:12 09/10/18 00:00 09/10/18 00:07 Temperature 98.3 F Pulse Rate 67 59 L 59 L Respiratory Rate 18 Blood Pressure 144/64 H Pulse Oximetry 99 09/10/18 04:00 09/10/18 08:00 09/10/18 12:00 Temperature 98.7 F Pulse Rate 76 72 64 Respiratory Rate 17 Blood Pressure 139/63 Pulse Oximetry 94 L 09/10/18 13:07 Temperature Pulse Rate Respiratory Rate Blood Pressure Pulse Oximetry 94 L Intake & Output 09/09/18 09/10/18 09/10/18 18:59 06:59 18:59 Intake Total 50 / 50 240 / 240 Output Total 550 / 550 Balance 50 / 50 -310 / -310 Weight 72.7 kg Intake: IV 50 / 50 Zosyn 2.25 GM Premix 2.25 gm In 50 / 50 50 ml @ 100 mls/hr IV.SIG Q8H [facility] Rx#:[id number] Oral 240 / 240 Output: Urine 550 / 550 Other: Date of Last Bowel Movement 09/06/18 09/09/18 Narrative: GENERAL: NAD, A&Ox3 NECK: Supple, trachea midline. No JVD CARDIOVASCULAR: Regular rate and rhythm without murmurs, gallops, or rubs. Left arm AVF. Right IJ permacath RESPIRATORY: Breath sounds equal bilaterally. No accessory muscle use. GASTROINTESTINAL: Abdomen soft, non-tender, nondistended. +BS MUSCULOSKELETAL: No cyanosis, or edema. SKIN: Warm and dry. Results 09/10/18 10:23 09/10/18 10:23 CBC 09/09/18 09/10/18 Range/Units 07:53 10:23 WBC 5.7 6.5 (4.0-11.0) th/mm3 RBC 2.50 L 2.73 L (4.50-5.90) mil/mm3 Hgb 7.5 L 8.2 L (13.0-17.0) gm/dL Hct 22.1 L 24.7 L (39.0-51.0) % Plt Count 86 L 90 L (150-450) th/mm3 Comprehensive Metabolic Panel 09/09/18 09/10/18 Range/Units 07:53 10:23 Sodium 141 141 (136-145) meq/L Potassium 3.3 L 3.3 L (3.5-5.1) meq/L Chloride 103 103 (98-107) meq/L Carbon Dioxide 27.5 26.7 (21.0-32.0) meq/L BUN 25 H 31 H (7-18) mg/dL Creatinine 2.96 H 3.64 H (0.60-1.30) mg/dL Calcium 7.5 L 7.1 L* (8.5-10.1) mg/dL Albumin 1.8 L (3.4-5.0) g/dL Intake and Output 09/10/18 09/10/18 09/10/18 06:59 14:59 22:59 Intake Total 240 / 240 Output Total 550 / 550 Balance -310 / -310 Intake: Oral 240 / 240 Output: Urine 550 / 550 Other: Date of Last Bowel Movement 09/09/18 Weight 72.7 kg Assessment and Plan - Assessment (1) Elevated troponin Code(s): R74.8 - Abnormal levels of other serum enzymes Status: Acute Plan: as detailed in my note yesterday, likely has underlying cad though unclear if truly nstemi vs symptomatic anemia (2) GI (gastrointestinal bleed) Code(s): K92.2 - Gastrointestinal hemorrhage, unspecified Status: Acute Plan: ok for colonoscopy/egd (noting somewhat higher risk due to potential cardiac ischemia); cath would likely require anticoagulation so need to make sure no active bleeding prior. (3) Anemia Code(s): D64.9 - Anemia, unspecified Status: Acute (4) NSTEMI (non-ST elevated myocardial infarction) Code(s): I21.4 - Non-ST elevation (NSTEMI) myocardial infarction Status: Acute Plan: for now asa held due to gi bleed; statin held due to elevated LFTs; added bb. (5) End stage renal disease Code(s): N18.6 - End stage renal disease Status: Chronic - Plan 1) Significant anemia EGD negative for bleeding source Cscope showing multiple polyps 2) NSTEMI Possible symptomatic anemia Most likely has underlying CAD Discussed consideration of cardiac catheterization Planned but with drop in Hgb (most likely secondary to polyp removal) and decrease in platelets, will hold off, discussed with patient GI recommending to wait on any anticoagulation in the near future due to multiple polyps removed Will consider tomorrow, continue to follow Hgb/Plt levels Platelet decreased further, discussed with Dr. Miranda about stopping Zosyn due to thrombocytopenia 3) Metastatic prostate cancer (3) Anemia Qualifiers: Anemia type: due to chronic kidney disease Chronic kidney disease stage: on chronic dialysis Qualified Code(s): N18.6 - End stage renal disease; D63.1 - Anemia in chronic kidney disease; Z99.2 - Dependence on renal dialysis
[2018-09-11] MEDS: Pantoprazole Inj 40 MG Vial IV.PUSH SCH ×2 (01:44→12:59)
[2018-09-11 08:32] LABS: Hematocrit 24.6 % (39.0-51.0); Hemoglobin 8.4 gm/dL (13.0-17.0); Mean Corpuscular HGB Conc 33.9 % (32.0-36.0); Mean Corpuscular Volume 88.4 fL (80.0-100.0); Mean Platelet Volume 7.6 fL (7.0-11.0); Platelet Count 101 th/mm3 (150-450); Red Blood Count 2.79 mil/mm3 (4.50-5.90); Red Cell Distribution Width 18.4 % (11.6-17.2); White Blood Count 7.7 th/mm3 (4.0-11.0)
[2018-09-11] MEDS ORDERED: Heparin/NS PF Inj 1,500 ML ONE (08:34)
[2018-09-11] MEDS ORDERED: Heparin 10,000 UNITS/10 ML Vial (for IV use) ONE (08:55)
[2018-09-11 09:11] LABS: Alanine Aminotransferase 13 U/L (12-78); Alkaline Phosphatase 1096 U/L (45-117); Anion Gap 9 meq/L (5-15); Aspartate Aminotransferase 44 U/L (15-37); Blood Urea Nitrogen 19 mg/dL (7-18); Calcium 7.6 mg/dL (8.5-10.1); Carbon Dioxide 29.9 meq/L (21.0-32.0); Chloride 102 meq/L (98-107); Glomerular Filtration Rate 25 mL/min (>89); Glucose,Random 97 mg/dL (74-106); Potassium 3.1 meq/L (3.5-5.1); Sodium 141 meq/L (136-145); Total Protein 5.3 g/dL (6.4-8.2)
[2018-09-11] MEDS ORDERED: fentaNYL Citrate Inj 100 MCG/2 ML Ampul ONE (09:11)
--- NOTE | 2018-09-11 09:42 | P.PNCA ---
Subjective Interval history: No events overnight Cath showing MVCAD Medications and Allergies Active Medications: Active Medications Al Hydroxide/Mg Hydroxide (Milk Of Magnesia Liq) 30 ml PO Q12H PRN PRN Reason: Mild Constipation Albuterol (Albuterol Neb (Prn)) 2.5 mg NEB Q2HR NEB PRN PRN Reason: SHORTNESS OF BREATH Bisacodyl (Dulcolax Supp) 10 mg RECTAL DAILY PRN PRN Reason: SEVERE CONSITIPATION Clonidine HCl (Catapres) 0.1 mg PO UNSCH PRN PRN Reason: SEE LABEL COMMENTS Diphenhydramine HCl (Benadryl) 25 mg PO UNSCH PRN PRN Reason: SEE LABEL COMMENTS Epoetin Hermes (Epogen Inj) 10,000 unit IV.PUSH UNSCH PRN PRN Reason: SEE LABEL COMMENTS Last Admin: 09/10/18 15:59 Dose: 10,000 unit Gelatin (Gelfoam 12 Mm/7 Mm Topical) 1 foam TOPICAL PRN PRN PRN Reason: help stop bleeding from site Gentamicin Sulfate (Gentamicin Inj) 20 mg OTHER WITH DIALYSIS PRN PRN Reason: Dwell Gentamycin Lock Last Admin: 09/10/18 15:59 Dose: 20 mg Heparin Sodium (Porcine) (Heparin Inj) 8,000 units OTHER WITH DIALYSIS PRN PRN Reason: for machine prime Heparin Sodium (Porcine) (Heparin Inj) 1,000 units OTHER WITH DIALYSIS PRN PRN Reason: Dwell Heparin to Fill Catheter Last Admin: 09/04/18 12:51 Dose: 1,000 units Albumin Human (Flexbumin 25% Inj) 100 mls @ 60 mls/hr IV.SIG WITH DIALYSIS PRN PRN Reason: hypotension / volume replace Sodium Chloride (Ns Inj) 1,000 mls @ 0 mls/hr OTHER .Q0M PRN PRN Reason: for prime and rinse back Sodium Chloride (Ns Inj) 1,000 mls @ 0 mls/hr IV.CONT .Q0M PRN PRN Reason: hypotension / volume replace Sodium Chloride (Ns Inj) 1,000 mls @ 200 mls/hr OTHER .Q5H PRN PRN Reason: for dialyzer flush PRN Lactobacillus Acidophilus (Lactinex) 1 tab PO BID [facility] Last Admin: 09/10/18 20:00 Dose: 1 tab Lactulose (Lactulose Liq) 30 ml PO DAILY PRN PRN Reason: SEVERE CONSITIPATION Mannitol (Mannitol Inj) 12.5 gm IV.PUSH UNSCH PRN PRN Reason: hypotension / volume replace Metoprolol Tartrate (Lopressor) 12.5 mg PO BID [facility] Last Admin: 09/10/18 20:00 Dose: 12.5 mg Nicotine (Habitrol 7 Mg Patch.24 Hr) 1 patch T-DERMAL DAILY [facility] Last Admin: 09/10/18 11:47 Dose: Not Given Nitroglycerin (Nitrostat Sl) 0.4 mg SL Q5M PRN PRN Reason: CHEST PAIN Ondansetron HCl (Zofran Inj) 4 mg IV.PUSH UNSCH PRN PRN Reason: NAUSEA OR VOMITING Oxycodone/Acetaminophen (Percocet 5/325 Mg) 1 tab PO Q6H PRN PRN Reason: PAIN SCALE 1 TO 10 Last Admin: 09/11/18 05:33 Dose: 0.5 tab Pantoprazole Sodium (Protonix Inj) 40 mg IV.PUSH Q12H [facility] Last Admin: 09/11/18 01:44 Dose: 40 mg Patch Removal (Remove Old Patch) 1 each T-DERMAL DAILY [facility] Last Admin: 09/10/18 11:48 Dose: Not Given Senna/Docusate Sodium (Negin-Colace) 1 tab PO BID [facility] Last Admin: 09/10/18 20:00 Dose: Not Given Sennosides (Senokot) 17.2 mg PO Q12H PRN PRN Reason: Moderate Constipation Sodium Chloride (Ns Flush) 2 ml IV.FLUSH PRN PRN PRN Reason: FLUSH AFTER USING IV ACCESS Last Admin: 09/06/18 08:37 Dose: 2 ml Sodium Chloride (Ns Flush) 2 ml IV.FLUSH BID [facility] Last Admin: 09/10/18 20:00 Dose: 2 ml Sodium Chloride (Ns Flush) 5 ml IV.FLUSH PRN PRN PRN Reason: flush each lumen during HD Tamsulosin HCl (Flomax) 0.4 mg PO DAILY [facility] Last Admin: 09/10/18 09:36 Dose: 0.4 mg Allergies Allergy/AdvReac Type Severity Reaction Status Date / Time Tetanus Vaccines and Toxoid Allergy Severe Fever Verified 08/13/18 15:46 amoxicillin AdvReac Mild Nausea/Vomi Verified 08/13/18 15:46 ting Home Medications Medication Instructions Recorded Confirmed Type bicalutamide 50 mg PO HS 07/09/18 09/03/18 History tamsulosin [Flomax] 0.4 mg PO DAILY 07/09/18 09/03/18 History Physical Exam Vital signs: Vital Signs 09/10/18 12:00 09/10/18 13:07 09/10/18 16:00 Temperature 97.4 F L 98.1 F Pulse Rate 65 81 Respiratory Rate 18 18 Blood Pressure 136/75 134/71 Pulse Oximetry 96 94 L 95 09/10/18 17:44 09/10/18 20:00 09/10/18 20:06 Temperature 98.5 F Pulse Rate 71 80 Respiratory Rate 18 Blood Pressure 133/63 Pulse Oximetry 94 L 93 L 09/10/18 23:56 09/11/18 00:00 09/11/18 01:14 Temperature 99.2 F Pulse Rate 75 64 Respiratory Rate 19 18 Blood Pressure 129/72 Pulse Oximetry 93 L 09/11/18 04:00 09/11/18 07:39 09/11/18 08:00 Temperature 97.8 F 98.5 F Pulse Rate 67 65 Respiratory Rate 16 18 18 Blood Pressure 140/68 135/65 Pulse Oximetry 96 96 Intake & Output 09/10/18 09/11/18 09/11/18 18:59 06:59 18:59 Intake Total 480 / 480 240 / 240 Output Total 2300 / 2300 Balance -1820 / -1820 239 / 239 Weight 73 kg Intake: Oral 480 / 480 240 / 240 Output: Urine 300 / 300 Hemodialysis Amount 1999 Other: # Voids 550 Date of Last Bowel Movement 09/09/18 09/10/18 Narrative: GENERAL: NAD, A&Ox3 NECK: Supple, trachea midline. No JVD CARDIOVASCULAR: Regular rate and rhythm without murmurs, gallops, or rubs. Left arm AVF. Right IJ permacath RESPIRATORY: Breath sounds equal bilaterally. No accessory muscle use. GASTROINTESTINAL: Abdomen soft, non-tender, nondistended. +BS MUSCULOSKELETAL: No cyanosis, or edema. SKIN: Warm and dry. Results 09/11/18 07:24 09/11/18 07:24 Cardiac Enzymes 09/11/18 Range/Units 07:24 AST 44 H (15-37) U/L CBC 09/10/18 09/11/18 Range/Units 10:23 07:24 WBC 6.5 7.7 (4.0-11.0) th/mm3 RBC 2.73 L 2.79 L (4.50-5.90) mil/mm3 Hgb 8.2 L 8.4 L (13.0-17.0) gm/dL Hct 24.7 L 24.6 L (39.0-51.0) % Plt Count 90 L 101 L (150-450) th/mm3 Comprehensive Metabolic Panel 09/10/18 09/11/18 Range/Units 10:23 07:24 Sodium 141 141 (136-145) meq/L Potassium 3.3 L 3.1 L (3.5-5.1) meq/L Chloride 103 102 (98-107) meq/L Carbon Dioxide 26.7 29.9 (21.0-32.0) meq/L BUN 31 H 19 H (7-18) mg/dL Creatinine 3.64 H 2.61 H (0.60-1.30) mg/dL Calcium 7.1 L* 7.6 L (8.5-10.1) mg/dL AST 44 H (15-37) U/L ALT 13 (12-78) U/L Alkaline Phosphatase 1096 H (45-117) U/L Total Protein 5.3 L (6.4-8.2) g/dL Albumin 1.8 L 2.0 L (3.4-5.0) g/dL Intake and Output 09/10/18 09/11/18 09/11/18 22:59 06:59 14:59 Intake Total 480 / 480 240 / 240 Output Total 2300 / 2300 Balance -1820 / -1820 239 / 239 Intake: Oral 480 / 480 240 / 240 Output: Urine 300 / 300 Hemodialysis Amount 1999 Other: # Voids 550 Date of Last Bowel Movement 09/10/18 Weight 73 kg Assessment and Plan - Assessment (1) Elevated troponin Code(s): R74.8 - Abnormal levels of other serum enzymes Status: Acute Plan: as detailed in my note yesterday, likely has underlying cad though unclear if truly nstemi vs symptomatic anemia (2) GI (gastrointestinal bleed) Code(s): K92.2 - Gastrointestinal hemorrhage, unspecified Status: Acute Plan: ok for colonoscopy/egd (noting somewhat higher risk due to potential cardiac ischemia); cath would likely require anticoagulation so need to make sure no active bleeding prior. (3) Anemia Code(s): D64.9 - Anemia, unspecified Status: Acute (4) NSTEMI (non-ST elevated myocardial infarction) Code(s): I21.4 - Non-ST elevation (NSTEMI) myocardial infarction Status: Acute Plan: for now asa held due to gi bleed; statin held due to elevated LFTs; added bb. (5) End stage renal disease Code(s): N18.6 - End stage renal disease Status: Chronic - Plan 1) Significant anemia EGD negative for bleeding source Cscope showing multiple polyps 2) NSTEMI Multivessel CAD CT surgery to evaluate for consideration of CABG For now continue medical management of CAD 3) Metastatic prostate cancer (3) Anemia Qualifiers: Anemia type: due to chronic kidney disease Chronic kidney disease stage: on chronic dialysis Qualified Code(s): N18.6 - End stage renal disease; D63.1 - Anemia in chronic kidney disease; Z99.2 - Dependence on renal dialysis
--- NOTE | 2018-09-11 09:46 | CATHPROC ---
[employer] HIS Report Study Information Study Number Admission Scheduled Start Study Start [id number] Sep 03 2018 3:08PM 09/11/2018 Sep 11 2018 8:30AM Study Type [place] Service Left Heart Cath Cardiac Pacer/ICD Admit Source Facility Department Emergency department [facility] - Shipping & Receiving Lead Physician and Clinical Staff Initial Russel Granado Certified Low Vision Therapist Eunice Gautam,CINTIA Recorder Heena Peterson RCIS TECH2 Scrub Shahid Waggoner RCIS(BS) Procedures Performed Procedure Location (Site) Vessel Name Coronary Angiograms LCA Left Coronary Coronary Angiograms RCA Right Coronary Equipment Time Clerk Specialist Description Size Mfg Part Number Used/Scraped TRANSDUCER, TRUWAVE [id number] 09:08 POOLE BURNETTE * Used W/STOCKCOCK *[id number] [id number] *[id number] *[id number] 09:08 [employer] BLANKET,WARM AIR CCL * Used *[id number] 09:08 [employer] PACK, CCL CUSTOM * Used *[id number] 09:08 [employer] SUPPORT, ARTERIAL ADULT [id number] *[id number] Used BAND, RADIAL COMPRESSION TR [id number] 09:29 [employer] 24CM Used SHORT 24 *[id number] 09:08 [employer] WIRE, EXCHANGE 260CM 3MMJ 260CM Used *[id number] 09:08 NAMIC MANIFOLD, 4 PORT * Used *[id number] 09:08 [employer] OMNIPAQUE, 350 MG, 150ML 150ML [id number] Used SHEATH, FR6 TRANSRADIAL [id number] 09:08 [employer] MED[employer] FR 6 Used SLENDER 10CM *[id number] History: Current Medications Medication Dosage/Unit Route Frequency Last Date/Time Taken Albuterol History: Allergies Allergy Reaction No Known Allergies Tetanus Vaccines and Toxoid Fever amoxicillin Nausea/Vomiting History: Risk Factors Family History of Hypertension Dyslipidemia Previous TN Previous Heart Failure Premature CAD Yes No No No No Prior Valve Prior PCI Prior CABG Surgery No No No Cerebrovascular Peripheral Artery Chronic Lung On Dialysis Diabetes Disease Disease Disease Yes No No No No History: Symptoms/Diagnosis Selection Items SOB History: Stress Tests Stress or Imaging Studies Performed No History: Other Disease Selection Items Cancer Renal Failure-Dialysis History: Other Current Smoker Method Packs a Day Yes Cigarettes 5 Labs Hgb (g/dl) Hct (%) WBC (l/cumm) Platelets (thousands) 11.60-17.00 35.00-51.00 4.00-11.00 150.00-450.00 8.4 24.6 7.7 101 Glucose (mg/dl) BUN (mg/dl) Creatinine (mg/dl) BUN:Creatinine (1:x) 74.00-106.00 7.00-18.00 0.50-1.30 10.00-20.00 140 31 3.6 8.6 Na (meq/l) K (meq/l) 136.00-145.00 3.50-5.10 141 3.3 Troponin I (ng/ml) CPK (u/l) CPK-MB (ng/ML) 0.02-0.05 26.00-308.00 0.50-3.60 11.7 328 Not Drawn Medication Medication Total Dose (Bolus/Oral) Medication Total Dosage/Unit 1% XYLOCAINE 20 mL FENTANYL 25 mcg RADIAL COCKTAIL 5 mL (Bolus) Medications (Bolus/Oral) Medication Time Given Dosage/Unit Administered By Reason 1% XYLOCAINE 09/11/2018 9:11:06 AM 20 mL Russel Contreras 20 mL 1% XYLOCAINE given in lab by Russel Contreras in Right Radial via Subcutaneous. Ordered by Russel Park FENTANYL 09/11/2018 9:12:26 AM 25 mcg Russel Contreras 25 mcg FENTANYL given in lab by Russel Contreras in Right Hand via Peripheral IV. Ordered by Russel Galeas RADIAL COCKTAIL 09/11/2018 9:13:13 AM 5 mL (Bolus) Russel Contreras 5 mL (Bolus) RADIAL COCKTAIL given in lab by Russel Contreras via Radial. Using [Solution Name]. O rdered by Russel Contreras. Reason: Ntg 200mcg Verapamil 2.5mg Heparin 2000U. Medication (Drip) Medication Time Given Dosage/Unit Concentration/Unit Diluent (ml) Solution IV Solutions 09/11/2018 8:33:11 AM 0 mL (IV) 500 NaCl .9 Patient arrived on IV Solutions in Right Hand via Peripheral IV. Pump/Drip Flow = 20 ml/hr using NaCl .9. Initial Case Assessment Cardiovascular HR Rhythm NIBP Chest Pain 75 sr 166/82 0 Circulatory - Right Pulses Dorsalis Pedis Femoral Radial 2 2 2 Scale (0,1,2,3,4,d) Circulatory - Left Pulses Dorsalis Pedis Femoral Radial 2 2 Scale (0,1,2,3,4,d) Neurological State Oriented to time-place- Alert Moves all extremities person Respiration - General Respiration Rate SpO2 (%) (B/min) 16 95 Final Case Assessment Cardiovascular HR Rhythm NIBP Chest Pain 69 sr 169/73 0 Circulatory - Right Pulses Dorsalis Pedis Femoral Radial 2 2 2 Scale (0,1,2,3,4,d) Circulatory - Left Pulses Dorsalis Pedis Femoral Radial 2 2 Scale (0,1,2,3,4,d) Neurological State Oriented to time-place- Alert Moves all extremities person Respiration - General Respiration Rate SpO2 (%) (B/min) 15 95 Chronological Log Time Study Chronological Log Vitals capture started with the following parameters, Patient=Adult, Interval=5 min, Initial Pre srnxf=431 mmHg, 8:32:56 Deflation Rate=5 mmHg, Cuff placed on Left Arm 8:33:00 Patient arrived via Bed. 8:33:01 Patient Name, D.O.B, / Armband Verified By R.N. 8:33:02 Consent signed by the physician and the patient and verified by the Shipping & Receiving Lead staff. 8:33:03 Pre-op and post- op instructions given; patient acknowledges understanding of instructions. 8:33:04 Presedation assessment performed by Shipping & Receiving Lead RN. 8:33:06 Patient has been NPO for More than 6Hrs. 8:33:06 Skin Breakdown-generalized bruizing 8:33:08 Chris Prominences Protected 8:33:10 A # 20 IV was noted in the Hand (right). Grade = 0 8:33:11 Patient arrived on IV Solutions in Right Hand via Peripheral IV. Pump/Drip Flow = 20 ml/hr u sing NaCl .9. 8:33:12 A # 20 IV was noted in the Wrist (right). Grade = 0 8:33:13 History and physical on the chart or being dictated. 8:34:12 HR=75 bpm, GJLY=879/78 mmhg, GuA4=116.0 % Vitals capture started with the following parameters, Patient=Adult, Interval=5 min, Initial Pre oqiqr=888 mmHg, 8:37:28 Deflation Rate=5 mmHg, Cuff placed on Left Arm 8:39:11 Vitals capture stopped. Vitals capture started with the following parameters, Patient=Adult, Interval=5 min, Initial Pre lafdb=324 mmHg, 8:49:01 Deflation Rate=5 mmHg, Cuff placed on Left Arm 8:49:08 Reference ECG taken 8:49:40 HR=86 bpm, HZWU=541/82 mmhg, SpO2=98.0 %, Resp=13 B/min Assessment: Initial Case, HR=75 BPM, Rhythm=sr, XDIR=700/82 mmhg, Chest Pain=0 Right Pulses: Ruben Ped=2, Femoral=2, Radial=2 8:50:41 Left Pulses: Ruben Ped=2, Femoral=2 Neurological: State=Alert, Ox3, FERNANDES Respiration: Resp=16 B/min, SpO2=95 % 8:52:30 Pressure channel 1 zeroed. 8:54:47 HR=66 bpm, AATV=722/70 mmhg, SpO2=97.0 %, Resp=11 B/min 8:58:49 MD paged 8:59:48 HR=71 bpm, GIMK=072/67 mmhg, SpO2=96.0 %, Resp=16 B/min 9:02:46 MD arrived. 9:04:45 HR=75 bpm, XIYI=731/75 mmhg, SpO2=97.0 %, Resp=15 B/min 9:09:48 HR=72 bpm, XDML=563/71 mmhg, SpO2=97.0 %, Resp=15 B/min Time Out. Correct patient, correct procedure, correct physician, labs, allergies, and equipment verified with geophysical laboratory chief 9:10:59 team present. Fire risk assesment completed (see hard stop sheet for coding). Time Out Concu rred by MD and individual staff in procedure. 9:11:05 Case Start 20 mL 1% XYLOCAINE given in lab by Russel Contreras in Right Radial via Subcutaneous. Ordered by Ben 9:11:06 Russel Harvey 9:12:22 Access site was Right Radial Artery . 9:12:26 25 mcg FENTANYL given in lab by Russel Contreras in Right Hand via Peripheral IV. Ordered by Russel Contreras A SHEATH, FR6 TRANSRADIAL SLENDER 10CM FR 6 was advanced into the Radial (right) using the Percu tanjuan manuel 9:12:58 technique. 5 mL (Bolus) RADIAL COCKTAIL given in lab by Russel Contreras via Radial. Using [Solution Nam e]. Ordered by 9:13:13 Russel Contreras. Reason: Ntg 200mcg Verapamil 2.5mg Heparin 2000U. A JR 4.0 INFINITI CATHETER FR 5 was advanced over a wire. OMNIPAQUE, 350 MG, 150ML 150ML was u sed for 9:13:48 injections. 9:14:41 HR=76 bpm, KSPZ=648/53 mmhg, SpO2=94.0 %, Resp=14 B/min Recorded Pressure: LV, HR=75, Condition=Condition 1 9:14:44 (Left Ventricle) LV 92/1/3 Recorded Pressure: LV, Ao, HR=76, Condition=Condition 1 9:15:02 (Left Ventricle) LV 87/0/3, (Aorta) Ao 85/46/64 9:15:38 The RCA was injected and visualized at various angles. OMNIPAQUE, 350 MG, 150ML 150ML use d. After removing the current catheter a JL 3.5 INFINITI CATHETER FR 5 was advanced over a WIRE, EXCHANGE 260CM 9:17:35 3MMJ 260CM. 9:19:41 The LCA was injected and visualized at various angles. OMNIPAQUE, 350 MG, 150ML 150ML use d. 9:20:15 HR=67 bpm, DFYZ=964/69 mmhg, SpO2=93.0 %, Resp=14 B/min, Pain=0, Ramos=2 9:23:48 Catheter was removed 9:23:52 Case End (Physician broke scrub) 9:24:43 HR=71 bpm, AMMJ=230/72 mmhg, SpO2=95.0 %, Resp=15 B/min Radial Compression Device Used. 12 mLs of air placed in BAND, RADIAL COMPRESSION TR SHORT 24 2 4CM. Affected 9:28:02 hand 95 % O2 saturation. Assessment: Final Case, HR=69 BPM, Rhythm=sr, PGJN=032/73 mmhg, Chest Pain=0 Right Pulses: Ruben Ped=2, Femoral=2, Radial=2 9:28:42 Left Pulses: Ruben Ped=2, Femoral=2 Neurological: State=Alert, Ox3, FERNANDES Respiration: Resp=15 B/min, SpO2=95 % 9:29:49 ERBY=087/73 mmhg 9:32:20 Patient moved to bed 9:34:13 Patient transported to DOCU End Study - Contrast Media Used In Study Contrast Total Opened (mL) Total Used (mL) Total Wasted (mL) Omnipaque 350 50 50 0 End Study - Maximum Contrast Load Max Contrast Load (mL) 101.4 End Study - Radiation Exposure Fluoro Time Fluoro Dose (mGy) Cine Dose (uGym2) (minutes) 2.3 [id number] End Study - Sheaths Sheaths Pulled By Sheath Hold Time (min) Shahid Waggoner End Study - Patient Disposition Complications Transferred To Interventional Outcome No Telemetry Bed No attempt made
[2018-09-11] MEDS ORDERED: Iohexol 350 MG/ML 50 ML Vial (for Cath Lab) IVCONTRAST ONE (10:16)
--- NOTE | 2018-09-11 10:17 | MA ---
cc: Russel Contreras DO DATE: 09/11/2018 PROCEDURE: Left heart catheterization, coronary angiogram. PREPROCEDURE DIAGNOSES: Non-ST elevation myocardial infarction, chronic systolic heart failure. POSTPROCEDURE DIAGNOSIS: Multivessel coronary artery disease. MEDICATIONS: Verapamil 2.5 mg, nitroglycerin 200 mcg, heparin 2000 units, fentanyl 25 mcg. CONTRAST USED: 50 mL. FLUOROSCOPY: 2.3 minutes. MODERATE SEDATION: Zero minutes. FRAILTY SCORE: 6. ESTIMATED BLOOD LOSS: 10 mL. PROCEDURAL SUMMARY: Abhilash Ross is a pleasant 63-year-old male who originally presented and was found to be anemic. During that he was found to have an elevation of his troponins; and because of this, he was recommended cardiac catheterization. He has already undergone an EGD and colonoscopy; and during the colonoscopy, he had multiple polyps removed. It was recommended that he receive no significant anticoagulation over the next few days due to the amount of polyps removed and the possibility of bleeding. Risks, benefits, and alternatives were explained to him and he consented to such. DETAILS OF PROCEDURE: He was brought to the lab and prepped in the usual sterile fashion. The right radial artery was accessed using modified Seldinger technique and placement of a 5/6 Qatari slender sheath. This was easily aspirated and flushed. A JR4 was advanced over a J-wire to the ascending aorta and across the aortic valve for measurement of left ventricular pressure. This was pulled back across the aortic valve showing no significant gradient of aortic stenosis. A JR4 was used for selective angiography of the right coronary artery system. This was exchanged out for a JL3.5, which was used for selective angiography of the left coronary artery system. JL3.5 was removed over a J wire. A radial band was placed over the arteriotomy site for hemostasis. 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 FINDINGS: LEFT MAIN: Normal-sized vessel without adequate reflux. It bifurcates into an LAD and circumflex. LAD: Moderate-sized vessel with a 90% stenosis in the proximal portion. Distally, it has mild luminal irregularities but no significant disease. It gives off 2 diagonals which are overall decent in size. The first one has an 80% lesion and the second one has no significant disease. LEFT CIRCUMFLEX: Moderate-sized vessel with a 90% lesion in the proximal portion. It gives off 2 obtuse marginals with the first one being moderate and the second one being larger with no significant disease. RCA: Xwuhcxjw-mr-wvdpw size vessel with 20%-30% disease throughout the wqj-kw-xbefdm portion. Distally, it gives off a PDA as well as a posterolateral branch with no significant disease. LVEDP: 3. IMPRESSION: 1. Non-ST elevation myocardial infarction. 2. Ejection fraction of 25%-30%. 3. Multivessel coronary artery disease. RECOMMENDATIONS: 1. Mr. Ross has undergone cardiac catheterization and found to have multivessel disease specifically of the LAD, diagonal, and circumflex. 2. will be recommended consideration of CABG by CT surgery. 3. Until decisions are made on revascularization, we will continue to treat him medically. Thank you for allowing me to see Madhu Ross. If there are any questions, please do not hesitate to call. DO CARI Rutledge/marko , 09:37 AM , 09:46 AM
[2018-09-11] MEDS: Lactobacillus Acidophilus/L. Spores Tablet PO SCH ×2 (12:50→20:38)
[2018-09-11] MEDS: Metoprolol Tartrate 25 MG Tablet PO SCH ×2 (12:50→20:38)
[2018-09-11] MEDS: Senna/Docusate Sodium 8.6/50 MG Tablet PO SCH ×2 (12:51→20:38)
[2018-09-11] MEDS: amLODIPine 5 MG Tablet PO SCH (12:58)
--- NOTE | 2018-09-11 14:28 | P.PNIM ---
Subjective Interval history: No acute issues overnight. Discussed with cardiology. Heart catheterization showed multivessel coronary artery disease. CT surgery consulted. Physical Exam Vital signs: Last Vital Signs Temp 98.5 F 09/11/18 08:00 Pulse 65 09/11/18 08:00 Resp 18 09/11/18 08:00 BP 135/65 09/11/18 08:00 Pulse Ox 96 09/11/18 10:16 Intake & Output 09/09/18 09/10/18 09/11/18 09/12/18 06:59 06:59 06:59 06:59 Intake Total 200 / 200 290 / 290 720 / 720 Output Total 1500 / 1500 550 / 550 2301 / 2301 Balance -1300 / -1300 -260 / -260 -1581 / -1581 Weight 73.4 kg 72.7 kg 73 kg Narrative: GENERAL: NAD, A&Ox3 NECK: Supple, trachea midline. No JVD CARDIOVASCULAR: Regular rate and rhythm without murmurs, gallops, or rubs. Left arm AVF. Right IJ permacath RESPIRATORY: Breath sounds equal bilaterally. No accessory muscle use. GASTROINTESTINAL: Abdomen soft, non-tender, nondistended. +BS MUSCULOSKELETAL: No cyanosis, or edema. SKIN: Warm and dry. Results Labs CBC & Chem 7: 09/11/18 07:24 09/11/18 07:24 Assessment and Plan (1) End stage renal disease: Code(s): N18.6 - End stage renal disease Status: Chronic (2) Anemia: Code(s): D64.9 - Anemia, unspecified Status: Acute (3) Joint pain: Code(s): M25.50 - Pain in unspecified joint Status: Deleted (4) Dyspnea: Code(s): R06.00 - Dyspnea, unspecified Status: Acute (5) Prostate cancer metastatic to bone: Code(s): C61 - Malignant neoplasm of prostate; C79.51 - Secondary malignant neoplasm of bone Status: Chronic Plan 63yM presenting with type II NSTEMI secondary to acute blood loss anemia/ suspected recurrent lower GI bleed GI bleed Gastroenterology following EGD shows no significant source of bleed Colonoscopy revealed multiple colon polyps. Some of the polyps were removed. Per GI, recommend delaying anticoagulation or NSAIDs for 5 days due to large number of polyps resected and risk of delayed bleeding Follow CBC, H&H and platelets slightly improved today. Continue to monitor Type II NSTEMI Cardiology following. Discussed with Dr. Contreras today. Heart cath showed multivessel CAD. CT surgery consulted Follow on telemetry Hyperlipidemia Continue present treatment Follow as an outpatient Nicotine dependence Cessation recommended Metastatic prostate cancer Continue as needed pain treatments Continue Flomax Bilateral pleural effusions Right greater than left Dyspnea Continue incentive spirometry Continue as needed duo nebs Improved from a respiratory standpoint. Discontinue antibiotics as cultures remain negative. Acute hyperkalemia End-stage renal disease Hemodialysis dependence Continue dialysis Nephrology following Replace potassium today. DVT prophylaxis SCDs Progress Note: Quality VTE Deep Vein Thrombosis/Pulmonary Embolism Present on Admission: No _ (1) Joint pain Qualifiers: Joint pain location: hip Laterality: left Qualified Code(s): M25.552 - Pain in left hip (2) Anemia Qualifiers: Anemia type: due to chronic kidney disease Bone marrow failure anemia type: Chronic kidney disease stage: on chronic dialysis Folate deficiency anemia type: Hemolytic anemia type: Iron deficiency anemia type: Other causes of anemia: Vitamin B12 deficiency anemia type: Qualified Code(s): N18.6 - End stage renal disease; D63.1 - Anemia in chronic kidney disease; Z99.2 - Dependence on renal dialysis (3) Dyspnea Qualifiers: Dyspnea type: shortness of breath Qualified Code(s): R06.02 - Shortness of breath; R06.00 - Dyspnea, unspecified; R06.01 - Orthopnea
--- NOTE | 2018-09-11 14:44 | P.PNCV ---
- Note Subjective/Hospital Course: pt seen and evaluated, full consult to follow sts data discussed with pt RISK SCORES Procedure: Isolated CAB CALCULATE Risk of Mortality: 5.235% Renal Failure: NA Permanent Stroke: 0.714% Prolonged Ventilation: 21.926% DSW Infection: 0.346% Reoperation: 4.734% Morbidity or Mortality: 27.607% Short Length of Stay: 12.125% Long Length of Stay: 17.822% Objective: Vital Signs - 24 hr 09/10/18 16:00 09/10/18 17:44 09/10/18 20:00 Temperature 98.1 F 98.5 F Pulse Rate 81 71 Respiratory Rate 18 18 Blood Pressure 134/71 133/63 Pulse Oximetry 95 94 L 93 L 09/10/18 20:06 09/10/18 23:56 09/11/18 00:00 Temperature 99.2 F Pulse Rate 80 75 64 Respiratory Rate 19 Blood Pressure 129/72 Pulse Oximetry 93 L 09/11/18 01:14 09/11/18 04:00 09/11/18 07:39 Temperature 97.8 F Pulse Rate 67 Respiratory Rate 18 16 18 Blood Pressure 140/68 Pulse Oximetry 96 09/11/18 08:00 09/11/18 10:16 Temperature 98.5 F Pulse Rate 65 Respiratory Rate 18 Blood Pressure 135/65 Pulse Oximetry 96 96 Labs: Laboratory Results - last 12 hr 09/11/18 09/11/18 07:24 07:24 WBC 7.7 RBC 2.79 L Hgb 8.4 L Hct 24.6 L MCV 88.4 MCH 30.0 MCHC 33.9 RDW 18.4 H Plt Count 101 L MPV 7.6 Sodium 141 Potassium 3.1 L Chloride 102 Carbon Dioxide 29.9 Anion Gap 9 BUN 19 H Creatinine 2.61 H Estimated GFR 25 L Random Glucose 97 Calcium 7.6 L Total Bilirubin 0.5 AST 44 H ALT 13 Alkaline Phosphatase 1096 H Total Protein 5.3 L Albumin 2.0 L Result Diagrams: 09/11/18 07:24 09/11/18 07:24
--- NOTE | 2018-09-11 16:20 | P.PNNP ---
Subjective Interval history: Patient seen in AM, no chest pain, with nasal cannula. Physical Exam Vital signs: Vital Signs 09/10/18 17:44 09/10/18 20:00 09/10/18 20:06 Temperature 98.5 F Pulse Rate 71 80 Respiratory Rate 18 Blood Pressure 133/63 Pulse Oximetry 94 L 93 L 09/10/18 23:56 09/11/18 00:00 09/11/18 01:14 Temperature 99.2 F Pulse Rate 75 64 Respiratory Rate 19 18 Blood Pressure 129/72 Pulse Oximetry 93 L 09/11/18 04:00 09/11/18 07:39 09/11/18 08:00 Temperature 97.8 F 98.5 F Pulse Rate 67 65 Respiratory Rate 16 18 18 Blood Pressure 140/68 135/65 Pulse Oximetry 96 96 09/11/18 10:16 09/11/18 12:00 09/11/18 15:00 Temperature Pulse Rate 76 71 Respiratory Rate 18 Blood Pressure 172/93 H Pulse Oximetry 96 96 09/11/18 15:06 Temperature Pulse Rate Respiratory Rate Blood Pressure Pulse Oximetry 95 Intake & Output 09/10/18 09/11/18 09/11/18 18:59 06:59 18:59 Intake Total 480 / 480 240 / 240 Output Total 2300 / 2300 Balance -1820 / -1820 239 / 239 Weight 73 kg Intake: Oral 480 / 480 240 / 240 Output: Urine 300 / 300 Hemodialysis Amount 1999 Other: # Voids 550 Date of Last Bowel Movement 09/09/18 09/10/18 Narrative: GENERAL: NAD, A&Ox3 NECK: Supple, trachea midline. No JVD CARDIOVASCULAR: Regular rate and rhythm without murmurs, gallops, or rubs. Left arm AVF. Right IJ permacath RESPIRATORY: Breath sounds equal bilaterally. No accessory muscle use. GASTROINTESTINAL: Abdomen soft, non-tender, nondistended. +BS MUSCULOSKELETAL: No cyanosis, or edema. SKIN: Warm and dry. Assessment and Plan - Assessment (1) End stage renal disease Code(s): N18.6 - End stage renal disease Status: Chronic (2) Anemia Code(s): D64.9 - Anemia, unspecified Status: Acute Qualifiers: Anemia type: due to chronic kidney disease Chronic kidney disease stage: on chronic dialysis Qualified Code(s): N18.6 - End stage renal disease; D63.1 - Anemia in chronic kidney disease; Z99.2 - Dependence on renal dialysis (3) Dyspnea Code(s): R06.00 - Dyspnea, unspecified Status: Acute Qualifiers: Dyspnea type: shortness of breath Qualified Code(s): R06.02 - Shortness of breath; R06.00 - Dyspnea, unspecified; R06.01 - Orthopnea (4) Prostate cancer metastatic to bone Code(s): C61 - Malignant neoplasm of prostate; C79.51 - Secondary malignant neoplasm of bone Status: Chronic - Plan HD MWF Has current right IJ catheter Left upper arm AVF with recent infiltration, pulsatile with possible outflow vein stenosis vs infiltration swelling. Allow AVF to rest, may re-evaluate as an outpatient. Post colonoscopy Tuesday - multiple polyps, larger polyps removed Hgb. is low but stable, transfuse as needed On Epogen with dialysis Following with cardiology - post Cardiac Cay. Cardiology follow up noted. metastatic prostate cancer. Awaiting CTS consult. HD done yesterday, next HD on Tue. due to Holiday. .
[2018-09-12] MEDS: Pantoprazole Inj 40 MG Vial IV.PUSH SCH ×2 (03:28→15:04)
[2018-09-12 07:05] LABS: Hematocrit 22.6 % (39.0-51.0); Hemoglobin 7.6 gm/dL (13.0-17.0); Mean Corpuscular HGB Conc 33.6 % (32.0-36.0); Mean Corpuscular Hemoglobin 29.7 pg (27.0-34.0); Mean Corpuscular Volume 88.4 fL (80.0-100.0); Mean Platelet Volume 7.7 fL (7.0-11.0); Platelet Count 97 th/mm3 (150-450); Red Blood Count 2.55 mil/mm3 (4.50-5.90); Red Cell Distribution Width 18.6 % (11.6-17.2); White Blood Count 8.2 th/mm3 (4.0-11.0)
[2018-09-12 07:33] LABS: Albumin 1.9 g/dL (3.4-5.0); Calcium 7.3 mg/dL (8.5-10.1); Carbon Dioxide 28.6 meq/L (21.0-32.0); Potassium 3.4 meq/L (3.5-5.1); Total Protein 5.2 g/dL (6.4-8.2)
[2018-09-12] MEDS: Metoprolol Tartrate 25 MG Tablet PO SCH ×2 (08:28→21:01)
[2018-09-12] MEDS: amLODIPine 5 MG Tablet PO SCH (08:29)
[2018-09-12] MEDS: Lactobacillus Acidophilus/L. Spores Tablet PO SCH ×2 (08:30→21:01)
[2018-09-12] MEDS: Senna/Docusate Sodium 8.6/50 MG Tablet PO SCH ×2 (08:32→21:01)
--- NOTE | 2018-09-12 08:49 | P.PNONC ---
Subjective Interval history: I never stopped taking my Casodex. It is the Lupron on June 06 that gave me trouble. Objective Vital Signs/Intake & Output: Vital Signs 09/11/18 10:16 09/11/18 12:00 09/11/18 15:00 Temperature Pulse Rate 76 71 Respiratory Rate 18 Blood Pressure 172/93 H Pulse Oximetry 96 96 09/11/18 15:06 09/11/18 16:00 09/11/18 17:00 Temperature 98.5 F Pulse Rate 71 71 Respiratory Rate 18 Blood Pressure 156/71 H Pulse Oximetry 95 96 09/11/18 18:00 09/11/18 19:00 09/11/18 20:00 Temperature 98.1 F Pulse Rate 65 69 70 Respiratory Rate 18 Blood Pressure 144/70 H Pulse Oximetry 96 09/11/18 21:00 09/11/18 22:00 09/11/18 23:00 Temperature Pulse Rate 66 64 63 Respiratory Rate Blood Pressure Pulse Oximetry 09/12/18 00:00 09/12/18 01:00 09/12/18 02:00 Temperature 98.3 F Pulse Rate 60 62 64 Respiratory Rate 18 Blood Pressure 138/60 Pulse Oximetry 96 09/12/18 03:00 09/12/18 04:00 09/12/18 05:00 Temperature 98 F Pulse Rate 67 71 70 Respiratory Rate 18 Blood Pressure 158/65 H Pulse Oximetry 95 09/12/18 05:53 Temperature Pulse Rate 72 Respiratory Rate Blood Pressure Pulse Oximetry Intake & Output 09/11/18 09/12/18 09/12/18 18:59 06:59 18:59 Intake Total 480 / 480 480 / 480 Output Total 600 / 600 650 / 650 Balance -120 / -120 -170 / -170 Weight 72.4 kg Intake: Oral 480 / 480 480 / 480 Output: Urine 600 / 600 650 / 650 Other: Date of Last Bowel Movement 09/11/18 # Bowel Movements 1 0 Result Diagrams: 09/12/18 06:13 09/12/18 06:13 Laboratory Results: Laboratory Results - last 24 hr 09/11/18 09/12/18 09/12/18 07:24 06:13 06:13 WBC 8.2 RBC 2.55 L Hgb 7.6 L Hct 22.6 L MCV 88.4 MCH 29.7 MCHC 33.6 RDW 18.6 H Plt Count 97 L MPV 7.7 Sodium 141 141 Potassium 3.1 L 3.4 L Chloride 102 103 Carbon Dioxide 29.9 28.6 Anion Gap 9 9 BUN 19 H 24 H Creatinine 2.61 H 3.32 H Estimated GFR 25 L 19 L Random Glucose 97 95 Calcium 7.6 L 7.3 L* Calcium Adj for Albumin 9.0 Total Bilirubin 0.5 0.5 AST 44 H 45 H ALT 13 13 Alkaline Phosphatase 1096 H 1201 H Total Protein 5.3 L 5.2 L Albumin 2.0 L 1.9 L 09/12/18 06:13 WBC RBC Hgb Hct MCV MCH MCHC RDW Plt Count MPV Sodium Potassium Chloride Carbon Dioxide Anion Gap BUN Creatinine Estimated GFR Random Glucose Calcium Cancelled Calcium Adj for Albumin Cancelled Total Bilirubin AST ALT Alkaline Phosphatase Total Protein Albumin Cancelled Medications: Active Medications Generic Name Dose Route Start Last Admin Trade Name Freq PRN Reason Stop Dose Admin Amlodipine Besylate 5 mg 09/11/18 12:00 09/12/18 08:29 Norvasc PO Not Given DAILY [facility] Bicalutamide 50 mg 09/11/18 18:00 09/12/18 08:31 Casodex PO 50 mg DAILY CYNDIE Administration Epoetin Hermes 10,000 unit 09/04/18 11:44 09/10/18 15:59 Epogen Inj IV.PUSH 10,000 unit UNSCH PRN Administration SEE LABEL COMMENTS Gentamicin Sulfate 20 mg 09/04/18 11:44 09/10/18 15:59 Gentamicin Inj OTHER 20 mg WITH DIALYSIS PRN Administration Dwell Gentamycin Lock Heparin Sodium (Porcine) 1,000 units 09/04/18 11:44 09/04/18 12:51 Heparin Inj OTHER 1,000 units WITH DIALYSIS PRN Administration Dwell Heparin to Fill Catheter Lactobacillus Acidophilus 1 tab 09/09/18 21:00 09/12/18 08:30 Lactinex PO 1 tab BID CYNDIE Administration Metoprolol Tartrate 12.5 mg 09/04/18 21:00 09/12/18 08:28 Lopressor PO 12.5 mg BID CYNDIE Administration Nicotine 1 patch 09/03/18 18:45 09/12/18 08:31 Habitrol 7 Mg Patch.24 Hr T-DERMAL Not Given DAILY CYNDIE Oxycodone/Acetaminophen 1 tab 09/03/18 16:50 09/11/18 18:18 Percocet 5/325 Mg PO 1 tab Q6H PRN Administration PAIN SCALE 1 TO 10 Pantoprazole Sodium 40 mg 09/05/18 14:00 09/12/18 03:28 Protonix Inj IV.PUSH 40 mg Q12H CYNDIE Administration Patch Removal 1 each 09/04/18 09:00 09/12/18 08:32 Remove Old Patch T-DERMAL Not Given DAILY CYNDIE Senna/Docusate Sodium 1 tab 09/03/18 21:00 09/12/18 08:32 Negin-Colace PO Not Given BID CYNDIE Sodium Chloride 2 ml 09/03/18 14:56 09/06/18 08:37 Ns Flush IV.FLUSH 2 ml PRN PRN Administration FLUSH AFTER USING IV ACCESS Sodium Chloride 2 ml 09/03/18 21:00 09/12/18 08:32 Ns Flush IV.FLUSH 2 ml BID CYNDIE Administration Tamsulosin HCl 0.4 mg 09/04/18 09:00 09/12/18 08:29 Flomax PO 0.4 mg DAILY CYNDIE Administration Objective Remarks: GENERAL: Slender, elderly man well-developed patient. SKIN: Warm and dry. Right chest wall permacath HEAD: Normocephalic. EYES: No scleral icterus. No injection or drainage. NECK: Supple, trachea midline. No JVD or lymphadenopathy. LYMPHATIC: No adenopathy. CARDIOVASCULAR: Regular rate and rhythm without murmurs. RESPIRATORY: Breath sounds equal bilaterally. No accessory muscle use. GASTROINTESTINAL: Abdomen soft, non-tender, nondistended. EXTREMITIES: Ecchymoses over the left arm graft. Trace edema lower extremity MUSCULOSKELETAL: Adequate muscle tone. NEUROLOGICAL: No obvious focal deficit. Awake, alert, and oriented x3. PSYCHIATRIC: Appropriate mood and affect; insight and judgment normal. Assessment/Plan - Plan 63-year-old man with metastatic prostate cancer. He initially presented with obstructive uropathy in 2016. He was placed on Lupron and Casodex. He had a magdiel and his PSA around the spring 2017. He reports not stopping his Casodex or his Lupron until May. His PSA has trended up. His most recent PSA is 420. His course is complicated by a non-ST elevated myocardial infarction. He is being considered for CABG. I lengthy discussion with the patient regarding the information that was found In the electronic medical records. It was clarified to him that he had metastatic prostate cancer since diagnosis. He appears to have high-grade disease on diagnosis. More concerning is that he seems to have hormone refractory disease, since his PSA is rising despite being on Lupron and Casodex. Hormone refractory prostate cancer is poor prognosis. We will confirm with the resuming his Casodex and checking a PSA. He will need follow- up in oncology clinic. He is known to Dr. Arceo. Otherwise he is potential candidate for other therapies such Zytiga or Abiraterone. He states that he does not want to take Lupron anymore. In light of his uncontrolled metastatic prostate cancer, conservative management, or medical management if possible may be the best alternative.
--- NOTE | 2018-09-12 12:19 | P.PN ---
Subjective Interval history: Follow-up non-ST elevation [place]/metastases prostate cancer/and now multi-vessel coronary disease September 12, 2018-patient seen and examined, has no chest pain or shortness of breath. Patient is unsure if he wants to go for any surgical intervention i.e. CABG Physical Exam Vital signs: Vital Signs 09/11/18 15:00 09/11/18 15:06 09/11/18 16:00 Temperature 98.5 F Pulse Rate 71 71 Respiratory Rate 18 Blood Pressure 156/71 H Pulse Oximetry 95 96 09/11/18 17:00 09/11/18 18:00 09/11/18 19:00 Temperature Pulse Rate 71 65 69 Respiratory Rate Blood Pressure Pulse Oximetry 09/11/18 20:00 09/11/18 21:00 09/11/18 22:00 Temperature 98.1 F Pulse Rate 70 66 64 Respiratory Rate 18 Blood Pressure 144/70 H Pulse Oximetry 96 09/11/18 23:00 09/12/18 00:00 09/12/18 01:00 Temperature 98.3 F Pulse Rate 63 60 62 Respiratory Rate 18 Blood Pressure 138/60 Pulse Oximetry 96 09/12/18 02:00 09/12/18 03:00 09/12/18 04:00 Temperature 98 F Pulse Rate 64 67 71 Respiratory Rate 18 Blood Pressure 158/65 H Pulse Oximetry 95 09/12/18 05:00 09/12/18 05:53 09/12/18 07:00 Temperature Pulse Rate 70 72 73 Respiratory Rate Blood Pressure Pulse Oximetry 09/12/18 08:00 09/12/18 09:00 09/12/18 09:16 Temperature 98.9 F Pulse Rate 64 62 Respiratory Rate 18 Blood Pressure 135/72 Pulse Oximetry 96 93 L 09/12/18 09:30 09/12/18 10:00 09/12/18 11:00 Temperature Pulse Rate 61 69 Respiratory Rate 18 Blood Pressure Pulse Oximetry Intake & Output 09/11/18 09/12/18 09/12/18 18:59 06:59 18:59 Intake Total 480 / 480 480 / 480 Output Total 600 / 600 650 / 650 Balance -120 / -120 -170 / -170 Weight 72.4 kg Intake: Oral 480 / 480 480 / 480 Output: Urine 600 / 600 650 / 650 Other: Date of Last Bowel Movement 09/11/18 09/11/18 # Bowel Movements 1 0 Narrative: GENERAL: NAD, A&Ox3 NECK: Supple, trachea midline. No JVD CARDIOVASCULAR: Regular rate and rhythm without murmurs, gallops, or rubs. Left arm AVF. Right IJ permacath RESPIRATORY: Breath sounds equal bilaterally. No accessory muscle use. GASTROINTESTINAL: Abdomen soft, non-tender, nondistended. +BS MUSCULOSKELETAL: No cyanosis, or edema. SKIN: Warm and dry. Results - Labs CBC & Chem 7: 09/12/18 06:13 09/12/18 06:13 Laboratory Results - last 24 hr 09/12/18 09/12/18 09/12/18 06:13 06:13 06:13 WBC 8.2 RBC 2.55 L Hgb 7.6 L Hct 22.6 L MCV 88.4 MCH 29.7 MCHC 33.6 RDW 18.6 H Plt Count 97 L MPV 7.7 Sodium 141 Potassium 3.4 L Chloride 103 Carbon Dioxide 28.6 Anion Gap 9 BUN 24 H Creatinine 3.32 H Estimated GFR 19 L Random Glucose 95 Calcium 7.3 L* Cancelled Calcium Adj for Albumin 9.0 Cancelled Total Bilirubin 0.5 AST 45 H ALT 13 Alkaline Phosphatase 1201 H Total Protein 5.2 L Albumin 1.9 L Cancelled Assessment and Plan - Assessment (1) End stage renal disease Code(s): N18.6 - End stage renal disease Status: Chronic (2) Anemia Code(s): D64.9 - Anemia, unspecified Status: Acute (3) Joint pain Code(s): M25.50 - Pain in unspecified joint Status: Deleted (4) Dyspnea Code(s): R06.00 - Dyspnea, unspecified Status: Acute (5) Prostate cancer metastatic to bone Code(s): C61 - Malignant neoplasm of prostate; C79.51 - Secondary malignant neoplasm of bone Status: Chronic - Plan 63-year-old man with Tobacco use disorder Chronic pain * Patient counseled on smoking cessation, nicotine patch ordered * Pain control as needed Multivessel coronary artery disease Cardiothoracic has been consulted for evaluation for possible CABG Continue with aspirin, beta fab. Heparin is contraindicated in the setting of GI bleed Bilateral pleural effusions, right greater than left Dyspnea * Incentive spirometer while awake * Nebs scheduled and PRN * Nicotine patch Acute hyperkalemia End stage renal disease on hemodialysis * IHD per nephrology scheduling Suspected recurrent GI bleed, likely lower Acute on chronic normocytic anemia secondary to blood loss * GI recommendations appreciated * Transfuse for hemoglobin less than 7 EGD shows no significant source of bleed Colonoscopy revealed multiple colon polyps. Some of the polyps were removed. Per GI, recommend delaying anticoagulation or NSAIDs for 5 days due to large number of polyps resected and risk of delayed bleeding. History of metastatic prostate CA * Continue home Flomax * Hold bicalutamide for now * Management per oncology * History of C diff colitis Lactic acidosis-resolved * continue home PO metronidazole * Patient given zosyn in ED, continue for now until blood cultures result; patient declined vancomycin * F/U blood cultures, increased risk for bacteremia as he has indwelling HD catheter Prophylaxis * SCDs only, heparin contraindicated in the setting of acute blood loss anemia * Protonix BID in the setting of GIB (2) Anemia Qualifiers: Anemia type: due to chronic kidney disease Chronic kidney disease stage: on chronic dialysis Qualified Code(s): N18.6 - End stage renal disease; D63.1 - Anemia in chronic kidney disease; Z99.2 - Dependence on renal dialysis (3) Joint pain Qualifiers: Joint pain location: hip Laterality: left Qualified Code(s): M25.552 - Pain in left hip (4) Dyspnea Qualifiers: Dyspnea type: shortness of breath Qualified Code(s): R06.02 - Shortness of breath; R06.00 - Dyspnea, unspecified; R06.01 - Orthopnea
--- NOTE | 2018-09-12 17:19 | P.PNNP ---
Subjective Interval history: Patient is alert, no SOB, no chest pain. Physical Exam Vital signs: Vital Signs 09/11/18 18:00 09/11/18 19:00 09/11/18 20:00 Temperature 98.1 F Pulse Rate 65 69 70 Respiratory Rate 18 Blood Pressure 144/70 H Pulse Oximetry 96 09/11/18 21:00 09/11/18 22:00 09/11/18 23:00 Temperature Pulse Rate 66 64 63 Respiratory Rate Blood Pressure Pulse Oximetry 09/12/18 00:00 09/12/18 01:00 09/12/18 02:00 Temperature 98.3 F Pulse Rate 60 62 64 Respiratory Rate 18 Blood Pressure 138/60 Pulse Oximetry 96 09/12/18 03:00 09/12/18 04:00 09/12/18 05:00 Temperature 98 F Pulse Rate 67 71 70 Respiratory Rate 18 Blood Pressure 158/65 H Pulse Oximetry 95 09/12/18 05:53 09/12/18 07:00 09/12/18 08:00 Temperature 98.9 F Pulse Rate 72 73 64 Respiratory Rate 18 Blood Pressure 135/72 Pulse Oximetry 96 09/12/18 09:00 09/12/18 09:16 09/12/18 09:30 Temperature Pulse Rate 62 Respiratory Rate 18 Blood Pressure Pulse Oximetry 93 L 09/12/18 10:00 09/12/18 11:00 09/12/18 12:00 Temperature 99.2 F Pulse Rate 61 69 60 Respiratory Rate 20 Blood Pressure 117/64 Pulse Oximetry 98 09/12/18 13:00 09/12/18 14:00 09/12/18 15:00 Temperature Pulse Rate 74 66 69 Respiratory Rate Blood Pressure Pulse Oximetry 09/12/18 16:00 Temperature 99.0 F Pulse Rate 66 Respiratory Rate 20 Blood Pressure 119/65 Pulse Oximetry 97 Intake & Output 09/11/18 09/12/18 09/12/18 18:59 06:59 18:59 Intake Total 480 / 480 480 / 480 Output Total 600 / 600 650 / 650 Balance -120 / -120 -170 / -170 Weight 72.4 kg Intake: Oral 480 / 480 480 / 480 Output: Urine 600 / 600 650 / 650 Other: Date of Last Bowel Movement 09/11/18 09/12/18 # Bowel Movements 1 0 Narrative: GENERAL: NAD, A&Ox3 NECK: Supple, trachea midline. No JVD CARDIOVASCULAR: Regular rate and rhythm without murmurs, gallops, or rubs. Left arm AVF. Right IJ permacath RESPIRATORY: Breath sounds equal bilaterally. No accessory muscle use. GASTROINTESTINAL: Abdomen soft, non-tender, nondistended. +BS MUSCULOSKELETAL: No cyanosis, or edema. SKIN: Warm and dry. Assessment and Plan - Assessment (1) End stage renal disease Code(s): N18.6 - End stage renal disease Status: Chronic (2) Anemia Code(s): D64.9 - Anemia, unspecified Status: Acute Qualifiers: Anemia type: due to chronic kidney disease Chronic kidney disease stage: on chronic dialysis Qualified Code(s): N18.6 - End stage renal disease; D63.1 - Anemia in chronic kidney disease; Z99.2 - Dependence on renal dialysis (3) Dyspnea Code(s): R06.00 - Dyspnea, unspecified Status: Acute Qualifiers: Dyspnea type: shortness of breath Qualified Code(s): R06.02 - Shortness of breath; R06.00 - Dyspnea, unspecified; R06.01 - Orthopnea (4) Prostate cancer metastatic to bone Code(s): C61 - Malignant neoplasm of prostate; C79.51 - Secondary malignant neoplasm of bone Status: Chronic - Plan HD MWF Has current right IJ catheter Left upper arm AVF with recent infiltration, pulsatile with possible outflow vein stenosis vs infiltration swelling. Allow AVF to rest, may re-evaluate as an outpatient. Post colonoscopy Tuesday - multiple polyps, larger polyps removed Hgb. is low but stable, transfuse as needed On Epogen with dialysis Following with cardiology - post Cardiac Cay. Cardiology follow up noted. metastatic prostate cancer. Awaiting CTS final decision and consult. HD will be in AM. .
[2018-09-13] MEDS: Pantoprazole Inj 40 MG Vial IV.PUSH SCH ×2 (02:42→17:36)
[2018-09-13 06:13] LABS: Baso % (Auto) 0.5 % (0.0-2.0); Eos # (Auto) 0.1 th/mm3 (0.0-0.4); Eos % (Auto) 0.8 % (0.0-4.0); Hematocrit 21.5 % (39.0-51.0); Hemoglobin 7.3 gm/dL (13.0-17.0); Lymph # (Auto) 2.7 th/mm3 (1.0-4.8); Lymph % (Auto) 34.4 % (9.0-44.0); Mean Corpuscular HGB Conc 33.7 % (32.0-36.0); Mean Corpuscular Hemoglobin 29.7 pg (27.0-34.0); Mean Platelet Volume 7.7 fL (7.0-11.0); Mono # (Auto) 0.5 th/mm3 (0.0-0.9); Mono % (Auto) 6.1 % (0.0-8.0); Neut # (Auto) 4.6 th/mm3 (1.8-7.7); Neut % (Auto) 58.2 % (16.0-70.0); Platelet Count 113 th/mm3 (150-450); Red Blood Count 2.45 mil/mm3 (4.50-5.90); Red Cell Distribution Width 18.8 % (11.6-17.2); White Blood Count 7.9 th/mm3 (4.0-11.0)
[2018-09-13 06:57] LABS: Albumin 1.9 g/dL (3.4-5.0); Calcium 7.3 mg/dL (8.5-10.1); Carbon Dioxide 28.6 meq/L (21.0-32.0); Potassium 3.5 meq/L (3.5-5.1)
--- NOTE | 2018-09-13 07:24 | MB ---
cc: Hao Trivedi MD DATE: 09/11/2018 HISTORY OF PRESENT ILLNESS: A 63-year-old male presented to the emergency room with acute shortness of breath and was found to be severely anemic and also elevated troponin. Hemoglobin on admission was 6.2 with a hematocrit of 19. He received 2 units of blood transfusion. He had a gastroenterology consult, which led to an EGD, which showed gastritis. He is also post-colonoscopy where they removed some polyps. Recommendation was to avoid anticoagulation and NSAIDS 5 days due to the large amount of polyps resected and risk of delayed bleeding. Biopsies were sent. Some of the polyps showed high-grade glandular dysplasia and some villous adenoma. The patient also has history of end-stage renal disease on dialysis Tuesday, Tuesday, Tuesday. He was able to undergo cardiac catheterization by Dr. Contreras for his non-ST segment an LA and chronic systolic heart failure. The LAD had a moderate-sized vessel with 90% stenosis in the proximal portion. The diagonal 1 had an 80% lesion. The left circumflex had a moderate 90% lesion in the proximal portion. The RCA had a moderate 20-30% stenosis. Echocardiogram did show ejection fraction of 25-30%. There was some trace aortic insufficiency, trace tricuspid regurgitation, and mild mitral valve regurgitation. PAST MEDICAL HISTORY: Includes recent severe anemia with gastritis. Also, recent lactic acidosis, resolved. End-stage renal disease, on dialysis. He has a PermCath in the right upper chest. He also has a left upper arm AV fistula with recent infiltration. Therefore, they are using the PermCath dialysis on Tuesday, Tuesday, Tuesday. Hypertension, metastatic prostate cancer where he is followed by Dr. Zion Fine. He was under Lupron and then recent Casodex injections. He has not seen an oncologist and has had no further treatment since May. ALLERGIES: TETANUS VACCINE, AMOXICILLIN. FAMILY HISTORY: Noncontributory. SOCIAL HISTORY: Chronic smoker, drinks 2 to 3 times a week. Lives alone. Positive for tobacco abuse. REVIEW OF SYSTEMS: As above and in the initial H and P. PHYSICAL EXAMINATION: VITAL SIGNS: Blood pressure 130/60, heart rate is 74, temperature max 98.5, on room air. GENERAL: Awake, alert, somewhat thin appearing. HEENT: Head is normocephalic, atraumatic. Pupils are equal and reactive. Oral mucosa pink, moist. NECK: Supple. No JVD. CARDIOVASCULAR: Heart sounds S1, S2. Regular rate and rhythm. No audible rubs or gallops. LUNGS: Diminished in the bases. Otherwise, clear to auscultation. ABDOMEN: Soft, flat, nontender. EXTREMITIES: He has trace edema in lower extremities. He has very dry, thin skin. He also has a PermCath in his right upper chest. He has a left forearm AV fistula with some surrounding ecchymosis with a good bruit. LABORATORY DATA: His lab work shows most recent hemoglobin of 8.4, hematocrit of 25, white cell count of 7.7, platelet count of 101. INR 1.7. That was on 09/05/2018. His initial blood gas on arrival showed a pH of 747, CO2 of 23, pO2 of 98, bicarbonate of 16. Sodium 141, potassium 3.1, BUN of 19, creatinine 2.61. Troponin peaked at greater than 40. PSA is greater than 18. RADIOLOGICAL EXAMS: He had a chest CT, which showed a 3.2 cm mass present in the left thyroid gland with rim like calcifications, widespread bony metastasis, sclerotic lesions in the thoracic vertebrae and some of the ribs bilaterally, moderate bilateral pleural effusions, worse on the right. Venous Doppler: No evidence of DVT in the lower extremities. He had a V/Q scan, which was negative for pulmonary emboli. IMPRESSION: 1. This is a 63-year-old male with multiple comorbidities. Again, we were consulted to evaluate for coronary artery bypass grafting. He has significant risk factors including a low ejection fraction 25-30%. 2. Recent [id number] myocardial infarction. 3. Recent gastrointestinal bleed with gastritis post-esophagogastroduodenoscopy and colonoscopy, post-blood transfusion. 4. End-stage renal disease, on dialysis. 5. Hypertension. 6. History of metastatic prostate cancer. Risk score is greater than 5. At this time, we will consult Oncology, since he has never seen an oncologist in regard to his risk stratification for surgeries and outcomes postoperatively. I appreciate the fact that he has Palliative Care on board and the other option is possible evaluation for high risk percutaneous coronary intervention, which would, however, require long-term platelet inhibitors with his increasing risk for gastrointestinal bleed. Further planning per Dr. Hao Trivedi. Dictated by Rocio Owens APRN Patient examined and chart reviewed on 09/11/2018. Agree with above. Given his metastatic prostate cancer with diffuse thoracic bony metastases as well as a severe left ventricular dysfunction, he remains at high risk for surgical intervention and recovery thereafter. Furthermore, at this point he is interested in inquiring about a percutaneous approach versus medical management. We will obtain an oncology consultation to determine his long-term prognosis and benefit from possible surgical intervention. Thank you for allowing me to participate in care of this patient. MD JOSHUA Melvin/solange , 02:52 PM , 03:04 PM EMILY
--- NOTE | 2018-09-13 07:26 | MB ---
cc: Susan Garcia MD DATE: 09/11/2018 CHIEF COMPLAINT: Nidia Owens requests a consultation for Mr. Ross regarding metastatic prostate cancer. HISTORY OF PRESENT ILLNESS: Mr. Ross is a 63-year-old man, well known patient to my partner, Dr. Dakota Arceo for initial consultation on 03/21/2017. Mr. Ross presented with obstructive uropathy, acute renal insufficiency, with significant anemia. Imaging study at the time included CT scan of chest, abdomen and pelvis that showed metastatic disease to bone, bilateral hydronephrosis and a urinary bladder mass, which turned out to be his enlarged prostate. Biopsy of the ileum showed metastatic carcinoma consistent with prostatic primary. PSA on his initial presentation was 82. By report PSA result from 05/26/2017 was 60.3. PSA from 06/21/2017 was 15.5, PSA was 2.4 on 02/01/2018. Mr. Ross never followed up with Dr. Arceo on the outpatient basis. I have no records for him in our electronic medical records. He reports that his injections have been administered by Dr. Fine. He was actually doing quite well with Casodex and Lupron. It appears that his PSA nadired to 2.4. He had some toxicity related to the Lupron and states that he would never take Lupron again. On 09/03/2018, he presented with shortness of breath. Apparently, he has had increasing shortness of breath over the last several days. He was spending more and more time in bed. He was evaluated by cardiology who recommended additional workup. He had a non-ST elevation myocardial infarction. Presentation is shortness of breath. He needed cardiac catheterization, which was performed. Cardiac catheterization showed multivessel coronary artery disease. Cardiothoracic surgery was called for evaluation of his multivessel coronary artery disease. Hematology/Oncology subsequently consulted for his metastatic prostate cancer. Most recent imaging study included CT scan of the chest that showed widespread bony metastatic disease. He has moderate bilateral pleural effusions, worse on the right and a calcified left thyroid mass, which is unchanged since 2017. He complains of some achiness in his bones. Denies any fevers, chills or night sweats. He has had some infection admission in the beginning of the year. He has a graft in the left upper arm. He has a hematoma from recent use. He has his labs and dialysis done through [facility]. He complains of leg swelling, which is actually improved. He has poor insight into his prostate cancer. A lot of his information needed to be reviewed through the electronic medical record. He had a family member that was supplementing his history. Noted is a recent colonoscopy evaluation for his anemia. He has had multiple polyps. He will need followup from that. A colonoscopic evaluation was done to assess his anemia. PAST MEDICAL HISTORY: Metastatic prostate cancer, question of still hormone responsive, anemia, chronic renal insufficiency/end-stage renal disease, history of GI bleed, non-ST elevated myocardial infarction, hypertension, nephrolithiasis, anemia. PAST SURGICAL HISTORY: Left arm arteriovenous graft. Recent colonoscopy, orthopedic surgery. FAMILY HISTORY: Significant for CVA. SOCIAL HISTORY: He lives alone. He is a current day smoker. He drinks 2-3 times per week. Denies any illicit drug oxygen. ALLERGIES: TETANUS VACCINE AND AMOXICILLIN. MEDICATIONS: 1. Milk of magnesia. 2. Norvasc 3. Epogen. 4. Gentamicin 5. Heparin. 6. Percocet. 7. Protonix. PHYSICAL EXAMINATION: VITAL SIGNS: Temperature 98.5, heart rate 71, respiratory rate 18, blood pressure 156/71, saturation 99%. GENERAL: Mr. Ross is a slender pale-appearing man, who looks older than stated age. Looks tired. HEENT: His pupils are round, reactive to light and accommodation. Oropharynx is clear. NECK: Supple. LUNGS: Clear anteriorly. CARDIOVASCULAR: Reveals a normal rate and rhythm. ABDOMEN: Flat and benign. He has some ecchymotic areas from injection. LOWER EXTREMITIES: Trace edema. Good pulses. He is quite sedentary, even in bed. He is feeding himself. He has a hematoma along his graft site in the left upper arm. Right chest wall Vascath/Permacath is in place. LABORATORY DATA: Hemoglobin 8.4, platelet count 101. Chemistry: Potassium is 3.1, BUN 19, creatinine 2.6, alkaline phosphatase 1096. PSA is 420. ASSESSMENT AND PLAN: Mr. Ross is a 63-year-old man with multiple medical problems. He presented with obstructive uropathy and developed end-stage renal disease. He was diagnosed at the same time with metastatic prostate cancer. He has been treated with combined hormonal therapy/complete androgen blockade with Casodex and Lupron. It is not clear why the Lupron was discontinued. His PSA nadired to 2.4 and is currently at 240. He has had a history of widespread metastatic disease even since 2017. He has not followed up with Medical Oncology. It is not known if Mr. Ross still has hormone responsive disease. If so, he would benefit from hormonal therapy for his prostate cancer. He has metastatic disease since 2017 and thus his prognosis is poor. His PSA was quite elevated at the time of the presentation. His other medical problems compound. He is risk associated with cardiothoracic surgery. It also appears that his performance status has decreased significantly even prior to his presentation to the hospital, which portends for a poor prognosis. It is not clear when his Casodex was discontinued. I recommend followup with Oncology on an outpatient basis. He would benefit him second line hormonal therapy. He has poor prognosis and multiple sites of bony metastatic disease may even benefit from systemic chemotherapy; however, this is unlikely in light of his coronary artery disease. Therapy if still hormone responsive disease. I would give him a trial of Casodex if no contraindications from the cardiology or nephrology standpoint. He may benefit from systemic chemotherapy in light of his multiple sites of bony metastatic disease. However, this may be difficult in light of his cardiac status. He is a poor risk for coronary artery bypass graft surgery in light of his medical problems. His prostate cancer is difficult to assess as he has not been under oncologic care. He has had progressive disease on Lupron therapy with his magdiel PSA being in the early part of the spring. He has not had a trial of second line hormonal therapy or even cytotoxic chemotherapy. His performance status may improve if the above is due to his metastatic prostate cancer. It, however, does not remove all of the other medical problems including end-stage renal disease, the requirement for hemodialysis, the anemia associated with the renal insufficiency. Mr. Ross and his family members' questions were answered to their satisfaction. MD CATHIE Rogers/cheri , 05:56 PM , 06:14 PM
[2018-09-13] MEDS: Metoprolol Tartrate 25 MG Tablet PO SCH ×2 (09:31→20:07)
[2018-09-13] MEDS: Lactobacillus Acidophilus/L. Spores Tablet PO SCH ×2 (09:31→20:07)
[2018-09-13] MEDS: Senna/Docusate Sodium 8.6/50 MG Tablet PO SCH ×2 (09:33→20:07)
[2018-09-13] MEDS: amLODIPine 5 MG Tablet PO SCH (09:33)
--- NOTE | 2018-09-13 11:10 | P.PN ---
Subjective Interval history: Follow-up non-ST elevation [place]/metastases prostate cancer/and now multi-vessel coronary disease September 12, 2018-patient seen and examined, has no chest pain or shortness of breath. Patient is unsure if he wants to go for any surgical intervention i.e. CABG September 13, 2018-patient seen and examined, has no chest pain, dizziness or shortness of breath. Afebrile. Plan for hemodialysis today Physical Exam Vital signs: Vital Signs 09/12/18 12:00 09/12/18 13:00 09/12/18 14:00 Temperature 99.2 F Pulse Rate 60 74 66 Respiratory Rate 20 Blood Pressure 117/64 Pulse Oximetry 98 09/12/18 15:00 09/12/18 16:00 09/12/18 17:00 Temperature 99.0 F Pulse Rate 69 66 74 Respiratory Rate 20 Blood Pressure 119/65 Pulse Oximetry 97 09/12/18 17:49 09/12/18 18:00 09/12/18 19:00 Temperature Pulse Rate 60 64 Respiratory Rate Blood Pressure Pulse Oximetry 97 09/12/18 20:00 09/12/18 21:00 09/12/18 22:00 Temperature 97.6 F Pulse Rate 62 64 70 Respiratory Rate 16 Blood Pressure 115/64 Pulse Oximetry 98 09/12/18 23:00 09/13/18 00:00 09/13/18 01:00 Temperature 98.9 F Pulse Rate 64 66 69 Respiratory Rate 16 Blood Pressure 106/64 Pulse Oximetry 97 09/13/18 02:00 09/13/18 02:40 09/13/18 03:00 Temperature 99.0 F Pulse Rate 68 68 65 Respiratory Rate 16 Blood Pressure 125/64 Pulse Oximetry 96 09/13/18 04:00 09/13/18 05:00 09/13/18 06:00 Temperature Pulse Rate 64 66 68 Respiratory Rate Blood Pressure Pulse Oximetry 09/13/18 08:00 09/13/18 10:25 Temperature 98.4 F Pulse Rate 63 Respiratory Rate 18 18 Blood Pressure 129/69 Pulse Oximetry 98 Intake & Output 09/12/18 09/13/18 09/13/18 18:59 06:59 18:59 Intake Total 900 / 900 200 / 200 Output Total 325 / 325 500 / 500 Balance 575 / 575 -300 / -300 Weight 71.4 kg Intake: Oral 900 / 900 200 / 200 Output: Urine 325 / 325 500 / 500 Other: Post Void Residual 7 Date of Last Bowel Movement 09/12/18 09/12/18 09/12/18 # Bowel Movements 1 Narrative: GENERAL: NAD, A&Ox3 NECK: Supple, trachea midline. No JVD CARDIOVASCULAR: Regular rate and rhythm without murmurs, gallops, or rubs. Left arm AVF. Right IJ permacath RESPIRATORY: Breath sounds equal bilaterally. No accessory muscle use. GASTROINTESTINAL: Abdomen soft, non-tender, nondistended. +BS MUSCULOSKELETAL: No cyanosis, or edema. SKIN: Warm and dry. Results - Labs CBC & Chem 7: 09/13/18 05:27 09/13/18 05:27 Laboratory Results - last 24 hr 09/13/18 09/13/18 05:27 05:27 WBC 7.9 RBC 2.45 L Hgb 7.3 L Hct 21.5 L MCV 88.0 MCH 29.7 MCHC 33.7 RDW 18.8 H Plt Count 113 L MPV 7.7 Neut % (Auto) 58.2 Lymph % (Auto) 34.4 [place] % (Auto) 6.1 Eos % (Auto) 0.8 Baso % (Auto) 0.5 Neut # (Auto) 4.6 Lymph # (Auto) 2.7 [place] # (Auto) 0.5 Eos # (Auto) 0.1 Baso # (Auto) 0.0 WBC Differential . Differential Comment Auto diff final Sodium 140 Potassium 3.5 Chloride 104 Carbon Dioxide 28.6 Anion Gap 7 BUN 31 H Creatinine 4.05 H Estimated GFR 15 L Random Glucose 107 H Calcium 7.3 L* Calcium Adj for Albumin 9.0 Total Bilirubin 0.4 AST 46 H ALT 14 Alkaline Phosphatase 1346 H Total Protein 5.0 L Albumin 1.9 L Assessment and Plan - Assessment (1) End stage renal disease Code(s): N18.6 - End stage renal disease Status: Chronic (2) Anemia Code(s): D64.9 - Anemia, unspecified Status: Acute (3) Joint pain Code(s): M25.50 - Pain in unspecified joint Status: Deleted (4) Dyspnea Code(s): R06.00 - Dyspnea, unspecified Status: Acute (5) Prostate cancer metastatic to bone Code(s): C61 - Malignant neoplasm of prostate; C79.51 - Secondary malignant neoplasm of bone Status: Chronic - Plan 63-year-old man with Tobacco use disorder Chronic pain * Patient counseled on smoking cessation, nicotine patch ordered * Pain control as needed Multivessel coronary artery disease Cardiothoracic has been consulted for evaluation for possible CABG. Patient is still uncertain if he wants to proceed with CABG Continue with aspirin, beta fab. Heparin is contraindicated in the setting of GI bleed Bilateral pleural effusions, right greater than left Dyspnea * Incentive spirometer while awake * Nebs scheduled and PRN * Nicotine patch Acute hyperkalemia End stage renal disease on hemodialysis * IHD per nephrology scheduling. Plan for hemodialysis today September 13, 2018 Suspected recurrent GI bleed, likely lower Acute on chronic normocytic anemia secondary to blood loss * GI recommendations appreciated * Transfuse for hemoglobin less than 7 EGD shows no significant source of bleed Colonoscopy revealed multiple colon polyps. Some of the polyps were removed. Per GI, recommend delaying anticoagulation or NSAIDs for 5 days due to large number of polyps resected and risk of delayed bleeding. History of metastatic prostate CA * Continue home Flomax * Hold bicalutamide for now * Management per oncology * History of C diff colitis Lactic acidosis-resolved * continue home PO metronidazole * Patient given zosyn in ED, continue for now until blood cultures result; patient declined vancomycin * F/U blood cultures, increased risk for bacteremia as he has indwelling HD catheter Prophylaxis * SCDs only, heparin contraindicated in the setting of acute blood loss anemia * Protonix BID in the setting of GIB (2) Anemia Qualifiers: Anemia type: due to chronic kidney disease Chronic kidney disease stage: on chronic dialysis Qualified Code(s): N18.6 - End stage renal disease; D63.1 - Anemia in chronic kidney disease; Z99.2 - Dependence on renal dialysis (3) Joint pain Qualifiers: Joint pain location: hip Laterality: left Qualified Code(s): M25.552 - Pain in left hip (4) Dyspnea Qualifiers: Dyspnea type: shortness of breath Qualified Code(s): R06.02 - Shortness of breath; R06.00 - Dyspnea, unspecified; R06.01 - Orthopnea
--- NOTE | 2018-09-13 12:11 | P.PNNP ---
Subjective Interval history: Patient is alert, no SOB, not in distress. Physical Exam Vital signs: Vital Signs 09/12/18 13:00 09/12/18 14:00 09/12/18 15:00 Temperature Pulse Rate 74 66 69 Respiratory Rate Blood Pressure Pulse Oximetry 09/12/18 16:00 09/12/18 17:00 09/12/18 17:49 Temperature 99.0 F Pulse Rate 66 74 Respiratory Rate 20 Blood Pressure 119/65 Pulse Oximetry 97 97 09/12/18 18:00 09/12/18 19:00 09/12/18 20:00 Temperature 97.6 F Pulse Rate 60 64 62 Respiratory Rate 16 Blood Pressure 115/64 Pulse Oximetry 98 09/12/18 21:00 09/12/18 22:00 09/12/18 23:00 Temperature Pulse Rate 64 70 64 Respiratory Rate Blood Pressure Pulse Oximetry 09/13/18 00:00 09/13/18 01:00 09/13/18 02:00 Temperature 98.9 F Pulse Rate 66 69 68 Respiratory Rate 16 Blood Pressure 106/64 Pulse Oximetry 97 09/13/18 02:40 09/13/18 03:00 09/13/18 04:00 Temperature 99.0 F Pulse Rate 68 65 64 Respiratory Rate 16 Blood Pressure 125/64 Pulse Oximetry 96 09/13/18 05:00 09/13/18 06:00 09/13/18 08:00 Temperature 98.4 F Pulse Rate 66 68 63 Respiratory Rate 18 Blood Pressure 129/69 Pulse Oximetry 98 09/13/18 10:25 Temperature Pulse Rate Respiratory Rate 18 Blood Pressure Pulse Oximetry Intake & Output 09/12/18 09/13/18 09/13/18 18:59 06:59 18:59 Intake Total 900 / 900 200 / 200 Output Total 325 / 325 500 / 500 Balance 575 / 575 -300 / -300 Weight 71.4 kg Intake: Oral 900 / 900 200 / 200 Output: Urine 325 / 325 500 / 500 Other: Post Void Residual 7 Date of Last Bowel Movement 09/12/18 09/12/18 09/12/18 # Bowel Movements 1 Narrative: GENERAL: NAD, A&Ox3 NECK: Supple, trachea midline. No JVD CARDIOVASCULAR: Regular rate and rhythm without murmurs, gallops, or rubs. Left arm AVF. Right IJ permacath RESPIRATORY: Breath sounds equal bilaterally. No accessory muscle use. GASTROINTESTINAL: Abdomen soft, non-tender, nondistended. +BS MUSCULOSKELETAL: No cyanosis, or edema. SKIN: Warm and dry. Assessment and Plan - Assessment (1) End stage renal disease Code(s): N18.6 - End stage renal disease Status: Chronic (2) Anemia Code(s): D64.9 - Anemia, unspecified Status: Acute Qualifiers: Anemia type: due to chronic kidney disease Chronic kidney disease stage: on chronic dialysis Qualified Code(s): N18.6 - End stage renal disease; D63.1 - Anemia in chronic kidney disease; Z99.2 - Dependence on renal dialysis (3) Dyspnea Code(s): R06.00 - Dyspnea, unspecified Status: Acute Qualifiers: Dyspnea type: shortness of breath Qualified Code(s): R06.02 - Shortness of breath; R06.00 - Dyspnea, unspecified; R06.01 - Orthopnea (4) Prostate cancer metastatic to bone Code(s): C61 - Malignant neoplasm of prostate; C79.51 - Secondary malignant neoplasm of bone Status: Chronic - Plan HD MWF Has current right IJ catheter Left upper arm AVF with recent infiltration, pulsatile with possible outflow vein stenosis vs infiltration swelling. Allow AVF to rest, may re-evaluate as an outpatient. Post colonoscopy Tuesday - multiple polyps, larger polyps removed Hgb. is low but stable, transfuse as needed On Epogen with dialysis Following with cardiology - post Cardiac [place]. Cardiology follow up noted. metastatic prostate cancer. CTS consulted, Hgb. is low, on Epogen and transfuse if Hgb is below 7.0. HD will be today. .
--- NOTE | 2018-09-13 13:45 | P.PNCV ---
- Note Subjective/Hospital Course: pt seen and appreciate Oncology assistance also spoke with pt , he is not interested in surgical Cardiothoracic surgery will sign off Objective: Vital Signs - 24 hr 09/12/18 14:00 09/12/18 15:00 09/12/18 16:00 Temperature 99.0 F Pulse Rate 66 69 66 Respiratory Rate 20 Blood Pressure 119/65 Pulse Oximetry 97 09/12/18 17:00 09/12/18 17:49 09/12/18 18:00 Temperature Pulse Rate 74 60 Respiratory Rate Blood Pressure Pulse Oximetry 97 09/12/18 19:00 09/12/18 20:00 09/12/18 21:00 Temperature 97.6 F Pulse Rate 64 62 64 Respiratory Rate 16 Blood Pressure 115/64 Pulse Oximetry 98 09/12/18 22:00 09/12/18 23:00 09/13/18 00:00 Temperature 98.9 F Pulse Rate 70 64 66 Respiratory Rate 16 Blood Pressure 106/64 Pulse Oximetry 97 09/13/18 01:00 09/13/18 02:00 09/13/18 02:40 Temperature 99.0 F Pulse Rate 69 68 68 Respiratory Rate 16 Blood Pressure 125/64 Pulse Oximetry 96 09/13/18 03:00 09/13/18 04:00 09/13/18 05:00 Temperature Pulse Rate 65 64 66 Respiratory Rate Blood Pressure Pulse Oximetry 09/13/18 06:00 09/13/18 08:00 09/13/18 10:25 Temperature 98.4 F Pulse Rate 68 63 Respiratory Rate 18 18 Blood Pressure 129/69 Pulse Oximetry 98 Labs: Laboratory Results - last 12 hr 09/13/18 09/13/18 09/13/18 05:27 05:27 11:04 WBC 7.9 RBC 2.45 L Hgb 7.3 L Hct 21.5 L MCV 88.0 MCH 29.7 MCHC 33.7 RDW 18.8 H Plt Count 113 L MPV 7.7 Neut % (Auto) 58.2 Lymph % (Auto) 34.4 [place] % (Auto) 6.1 Eos % (Auto) 0.8 Baso % (Auto) 0.5 Neut # (Auto) 4.6 Lymph # (Auto) 2.7 [place] # (Auto) 0.5 Eos # (Auto) 0.1 Baso # (Auto) 0.0 WBC Differential . Differential Comment Auto diff final Sodium 140 Potassium 3.5 Chloride 104 Carbon Dioxide 28.6 Anion Gap 7 BUN 31 H Creatinine 4.05 H Estimated GFR 15 L Random Glucose 107 H Calcium 7.3 L* Calcium Adj for Albumin 9.0 Total Bilirubin 0.4 AST 46 H ALT 14 Alkaline Phosphatase 1346 H Total Protein 5.0 L Albumin 1.9 L Blood Type O Negative Antibody Screen Negative MTS Gel Crossmatch See Detail Bld Prod Order Comment Result Diagrams: 09/13/18 05:27 09/13/18 05:27
[2018-09-13] MEDS: Heparin 10,000 UNITS/10 ML Vial (for IV use) OTHER PRN (16:10)
--- NOTE | 2018-09-13 16:36 | P.PNPAL ---
Reason for Visit Reason for visit: a. To assist with evaluation and management of symptoms including: dyspnea, pain. b. To assist medical decision maker(s) with: better understanding of current medical conditions; weighing benefits/burdens of medical treatment options; making medical treatment decisions. Subjective Subjective/Interval History: Patient seen to follow up on symptom management, goals of care. Cardiothoracic surgery, Dr. Trivedi consulted on 09/11 for surgical evaluation in the setting of multivessel coronary artery disease. Recent NSTEMI in the setting of chronic systolic heart failure. Patient underwent cardiac cath revealing multivessel coronary disease. Echocardiogram revealing ejection fraction of 25-30% with some trace aortic insufficiency, trace tricuspid regurgitation and mild mitral valve regurgitation. Patient deemed high surgical risk, oncology was consulted. Patient seen by Dr. Garcia on 09/11/18, patient with metastatic prostate cancer originally diagnosed in 2017. Biopsy of the ileum showed metastatic carcinoma consistent with prostatic primary. Patient was started on Casodex and Lupron but appears hormone refractory which gives him an overall poor prognosis. Patient with decreased performance status given multiple comorbidities, acute events and acute hospitalization. Patient is a poor candidate for coronary artery bypass graft surgery given the above, conservative medical management has been recommended. Case discussed with Dr. Contreras. Patient seen during hemodialysis treatment, he was resting in bed in no acute distress. Alert and oriented x self, place and situation. Patient endorsing pain to left hip and left knee, currently rated at 6/10. Pain is dull, intermittent, exacerbated by movement and alleviated by Percocet. Patient endorsing generalized weakness/debility and poor appetite. Denies shortness of breath, nausea or vomiting. Patient tells me that his goal of treatment is to follow oncology's recommendations for conservative medical management and to "stay away from surgeries". Patient tells me that his ultimate goal is to return home for independent living; however, understands that he is very weak and my require assistance such as rehabilitation or even long-term facility placement. Patient appears to have a fair understanding of his overall poor prognosis in the setting of metastatic prostate cancer, end-stage renal disease hemodialysis dependent, multivessel coronary disease, recent NSTEMI and physical deconditioning. Reviewed in detail CPR, intubation and mechanical ventilation given the above. Patient reports that he wishes to remain full code but will "think about it". Offered assistance with completion of advance directives, patient declined. Patient declined designating healthcare surrogate decision-maker, he tells me that he is comfortable having his son Yomaira and daughter Christin make medical decisions on his behalf. Patient is receptive to palliative care follow-ups for further clarification of goals. Family/Friend Interactions: No family at bedside during my visit. Advance Directives Living Will: Never completed Health Care Surrogate: Never completed Durable Power of Tightener: Never completed Health Care Surrogate Name and Number: HCP: sonJuan Manuel AND daughterChristin Objective Vital Signs: Vital Signs 09/12/18 17:00 09/12/18 17:49 09/12/18 18:00 Temperature Pulse Rate 74 60 Respiratory Rate Blood Pressure Pulse Oximetry 97 09/12/18 19:00 09/12/18 20:00 09/12/18 21:00 Temperature 97.6 F Pulse Rate 64 62 64 Respiratory Rate 16 Blood Pressure 115/64 Pulse Oximetry 98 09/12/18 22:00 09/12/18 23:00 09/13/18 00:00 Temperature 98.9 F Pulse Rate 70 64 66 Respiratory Rate 16 Blood Pressure 106/64 Pulse Oximetry 97 09/13/18 01:00 09/13/18 02:00 09/13/18 02:40 Temperature 99.0 F Pulse Rate 69 68 68 Respiratory Rate 16 Blood Pressure 125/64 Pulse Oximetry 96 09/13/18 03:00 09/13/18 04:00 09/13/18 05:00 Temperature Pulse Rate 65 64 66 Respiratory Rate Blood Pressure Pulse Oximetry 09/13/18 06:00 09/13/18 07:00 09/13/18 08:00 Temperature 98.4 F Pulse Rate 68 62 64 Respiratory Rate 18 Blood Pressure 129/69 Pulse Oximetry 98 09/13/18 09:00 09/13/18 10:00 09/13/18 10:25 Temperature Pulse Rate 64 70 Respiratory Rate 18 Blood Pressure Pulse Oximetry 09/13/18 11:00 09/13/18 12:00 09/13/18 13:00 Temperature Pulse Rate 61 56 L 56 L Respiratory Rate Blood Pressure Pulse Oximetry 09/13/18 14:00 09/13/18 15:00 Temperature Pulse Rate 58 L 59 L Respiratory Rate Blood Pressure Pulse Oximetry Intake & Output 09/12/18 09/13/18 09/13/18 18:59 06:59 18:59 Intake Total 900 / 900 200 / 200 Output Total 325 / 325 500 / 500 Balance 575 / 575 -300 / -300 Weight 71.4 kg Intake: Oral 900 / 900 200 / 200 Output: Urine 325 / 325 500 / 500 Other: Post Void Residual 7 Date of Last Bowel Movement 09/12/18 09/12/18 09/12/18 # Bowel Movements 1 Physical Exam: CONSTITUTIONAL/GENERAL: This is a thin, chronically ill appearing man, in no apparent distress. SKIN: No jaundice, rashes, or lesions. Multiple areas ecchymoses on upper extremities. Slightly sallow color. Skin warm and dry. EYES: Pupils equal and round and reactive. ENT: Hearing grossly normal. Nose without bleeding or purulent drainage. Throat without visible erythema, exudates, masses, or lesions. CARDIOVASCULAR: Regular rate and rhythm without murmurs, gallops, or rubs. No JVD. Peripheral pulses symmetric. RESPIRATORY/CHEST: Symmetric, unlabored respirations. Clear to auscultation. On room air. Breath sounds equal bilaterally. No wheezes, rales, or rhonchi. GASTROINTESTINAL: Abdomen soft, non-tender, nondistended. No guarding. GENITOURINARY: Without palpable bladder distension. MUSCULOSKELETAL: Extremities without clubbing, cyanosis,. Trace edema to bilateral lower arms .feet cool to touch. No calf tenderness. No mottling or clubbing. NEUROLOGICAL: Awake and alert, oriented x3. Appropriate. Reasonable insight. Generalized weakness-moves all 4 extremities well. Cooperative, follows commands. PSYCHIATRIC: No obvious anxiety/depression. no apparent hallucinations or other psychotic thought process. Diagnostic Tests Laboratory: Laboratory Results - last 72 hr 09/11/18 09/11/18 09/12/18 07:24 07:24 06:13 WBC 7.7 8.2 RBC 2.79 L 2.55 L Hgb 8.4 L 7.6 L Hct 24.6 L 22.6 L MCV 88.4 88.4 MCH 30.0 29.7 MCHC 33.9 33.6 RDW 18.4 H 18.6 H Plt Count 101 L 97 L MPV 7.6 7.7 Neut % (Auto) Lymph % (Auto) [place] % (Auto) Eos % (Auto) Baso % (Auto) Neut # (Auto) Lymph # (Auto) [place] # (Auto) Eos # (Auto) Baso # (Auto) WBC Differential Differential Comment Sodium 141 Potassium 3.1 L Chloride 102 Carbon Dioxide 29.9 Anion Gap 9 BUN 19 H Creatinine 2.61 H Estimated GFR 25 L Random Glucose 97 Calcium 7.6 L Calcium Adj for Albumin Total Bilirubin 0.5 AST 44 H ALT 13 Alkaline Phosphatase 1096 H Total Protein 5.3 L Albumin 2.0 L Blood Type Antibody Screen MTS Gel Crossmatch Bld Prod Order Comment 09/12/18 09/12/18 09/13/18 06:13 06:13 05:27 WBC RBC Hgb Hct MCV MCH MCHC RDW Plt Count MPV Neut % (Auto) Lymph % (Auto) [place] % (Auto) Eos % (Auto) Baso % (Auto) Neut # (Auto) Lymph # (Auto) [place] # (Auto) Eos # (Auto) Baso # (Auto) WBC Differential Differential Comment Sodium 141 140 Potassium 3.4 L 3.5 Chloride 103 104 Carbon Dioxide 28.6 28.6 Anion Gap 9 7 BUN 24 H 31 H Creatinine 3.32 H 4.05 H Estimated GFR 19 L 15 L Random Glucose 95 107 H Calcium 7.3 L* Cancelled 7.3 L* Calcium Adj for Albumin 9.0 Cancelled 9.0 Total Bilirubin 0.5 0.4 AST 45 H 46 H ALT 13 14 Alkaline Phosphatase 1201 H 1346 H Total Protein 5.2 L 5.0 L Albumin 1.9 L Cancelled 1.9 L Blood Type Antibody Screen MTS Gel Crossmatch Bld Prod Order Comment 09/13/18 09/13/18 05:27 11:04 WBC 7.9 RBC 2.45 L Hgb 7.3 L Hct 21.5 L MCV 88.0 MCH 29.7 MCHC 33.7 RDW 18.8 H Plt Count 113 L MPV 7.7 Neut % (Auto) 58.2 Lymph % (Auto) 34.4 [place] % (Auto) 6.1 Eos % (Auto) 0.8 Baso % (Auto) 0.5 Neut # (Auto) 4.6 Lymph # (Auto) 2.7 [place] # (Auto) 0.5 Eos # (Auto) 0.1 Baso # (Auto) 0.0 WBC Differential . Differential Comment Auto diff final Sodium Potassium Chloride Carbon Dioxide Anion Gap BUN Creatinine Estimated GFR Random Glucose Calcium Calcium Adj for Albumin Total Bilirubin AST ALT Alkaline Phosphatase Total Protein Albumin Blood Type O Negative Antibody Screen Negative MTS Gel Crossmatch See Detail Bld Prod Order Comment Result Diagrams: 09/13/18 05:27 09/13/18 05:27 Procedures: * 09/05/18 - Endoscopy and biopsy * 09/07/18 - colonoscopy Assessment and Plan - Disease Oriented Problem List (1) End stage renal disease (2) Prostate cancer metastatic to bone (3) GI (gastrointestinal bleed) (4) NSTEMI (non-ST elevated myocardial infarction) (5) Elevated troponin (6) Multi-vessel coronary artery stenosis - Symptom Scale (1) Pain 0-10 Scale: 6 (2) Dyspnea 0-10 Scale: 0 Pertinent Non-Medical Issues: Psychosocial:. Retired. Has 1 son and 1 daughter. Spiritual:Unknown. Legal: No written advance directives. According to [place] statutes, should the patient lose capacity, health care proxy decision making would fall to the majority of adult children (he has 2 sons and 1 daughter). 1 son Mekhi has Down Syndrome and unable to participate. Ethical issues impacting care: No known concerns at this time. Important Contacts: * Juan Manuel Ross, son: [phone] * Christin Ely, daughter: [phone] Prognosis: Mr. Ross is a 63-year-old male with a medical history significant for end- stage renal disease on hemodialysis, metastatic prostate cancer, multi-vessel coronary disease, ejection fraction of 25-30%, recent end NSTEMI. Patient admitted with anemia and elevated troponins. He is not a surgical candidate for multivessel coronary disease given multiple chronic comorbidities and physical deconditioning. Overall prognosis is poor. Code Status: Full Code Plan: * CODE STATUS: FULL code. Risks, benefits and limitations of CPR, intubation and mechanical ventilation in the setting of his current medical condition has been discussed at length with patient on 09/13, he wishes to remain full code at this time but verbalized that he will "think about it". * MEDICAL DECISION-MAKING: Patient participating medical decision making. He appears to have a fair understanding of his complicated clinical condition. No advanced directives completed. As per [place] statue, Should the patient lose capacity, health care proxy decision making would fall to the majority of adult children. He has 2 sons (Juan Manuel and Mekhi) and 1 daughter (Christin). Son Mekhi is nonverbal, has Down syndrome and is unable to participate in healthcare decision-making. Assistance with completion of advance directives offered and declined by patient. * GOALS OF THERAPY: Patient tells me that his goal of treatment is to follow oncology's recommendations for conservative medical management and to "stay away from surgeries". Patient tells me that his ultimate goal is to return home for independent living; however, understands that he is very weak and may require assistance such as rehabilitation or even long-term facility placement. Patient appears to have a fair understanding of his overall poor prognosis in the setting of metastatic prostate cancer, end-stage renal disease hemodialysis dependent, multivessel coronary disease, recent NSTEMI and physical deconditioning. Reviewed in detail CPR, intubation and mechanical ventilation given the above. Patient reports that he wishes to remain full code but will "think about it". Offered assistance with completion of advance directives, patient declined. * SYMPTOMS: =Pain; to left hip and left knee, site of bone metastasis. Percocet 5/325 every 6 hours available as needed. In the past 24 hours, patient has received 3 doses with good effect. No further recommendations at this time. = Shortness of breath: Multifactorial secondary to burden of disease , anemia, cardiac disease. Patient denies shortness of breath at time of my visit. No further recommendations at this time. * Case discussed with Dr. Contreras. * Palliative contact information has been provided to patient. * Palliative care will continue to follow to assist with symptom management and clarification of goals of medical treatment throughout hospital course. Time Spent Total Floor Time (mins): 41 (Total time to include review of medical records, physical exam, goals of care conversation with patient, case discussion with cardiology Dr. Contreras.) >50% Time in Counseling or Coordination of Care: Yes (Total visit time = 41 minutes; > 50% spent counseling/coordinating care) Attestation Attestation: To help prompt me to consider important information that might be impacting today's encounter and assessment, information from prior notes written by myself or my colleagues may have been "brought forward" into today's note. My signature on this note, however, is an attestation that I personally performed the exam, history, and/or decision-making noted today, and, unless otherwise indicated, the interactions with patient, family, and staff as well as the review of records all occurred today. I also attest that the listed assessment and stated plan reflect my best clinical judgment today based on the combination of historical information, prior notes, and today's exam/ interactions. When time spent is documented, it refers only to time spent today by the signer, or if indicated, combined time spent today by collaborating physician/nurse practitioner.
--- NOTE | 2018-09-13 18:57 | P.PNCA ---
Subjective Interval history: Patient seen on HD Feels weak, no chest pain/SOB Medications and Allergies Active Medications: Active Medications Al Hydroxide/Mg Hydroxide (Milk Of Magntiffanie Liq) 30 ml PO Q12H PRN PRN Reason: Mild Constipation Albuterol (Albuterol Neb (Prn)) 2.5 mg NEB Q2HR NEB PRN PRN Reason: SHORTNESS OF BREATH Amlodipine Besylate (Norvasc) 5 mg PO DAILY [facility] Last Admin: 09/13/18 09:33 Dose: Not Given Bicalutamide (Casodex) 50 mg PO DAILY [facility] Last Admin: 09/13/18 09:31 Dose: 50 mg Bisacodyl (Dulcolax Supp) 10 mg RECTAL DAILY PRN PRN Reason: SEVERE CONSITIPATION Clonidine HCl (Catapres) 0.1 mg PO UNSCH PRN PRN Reason: SEE LABEL COMMENTS Diphenhydramine HCl (Benadryl) 25 mg PO UNSCH PRN PRN Reason: SEE LABEL COMMENTS Epoetin Hermes (Epogen Inj) 10,000 unit IV.PUSH UNSCH PRN PRN Reason: SEE LABEL COMMENTS Last Admin: 09/13/18 16:10 Dose: 10,000 unit Gelatin (Gelfoam 12 Mm/7 Mm Topical) 1 foam TOPICAL PRN PRN PRN Reason: help stop bleeding from site Gentamicin Sulfate (Gentamicin Inj) 20 mg OTHER WITH DIALYSIS PRN PRN Reason: Dwell Gentamycin Lock Last Admin: 09/13/18 16:10 Dose: 20 mg Heparin Sodium (Porcine) (Heparin Inj) 8,000 units OTHER WITH DIALYSIS PRN PRN Reason: for machine prime Heparin Sodium (Porcine) (Heparin Inj) 1,000 units OTHER WITH DIALYSIS PRN PRN Reason: Dwell Heparin to Fill Catheter Last Admin: 09/04/18 12:51 Dose: 1,000 units Albumin Human (Flexbumin 25% Inj) 100 mls @ 60 mls/hr IV.SIG WITH DIALYSIS PRN PRN Reason: hypotension / volume replace Sodium Chloride (Ns Inj) 1,000 mls @ 0 mls/hr OTHER .Q0M PRN PRN Reason: for prime and rinse back Sodium Chloride (Ns Inj) 1,000 mls @ 0 mls/hr IV.CONT .Q0M PRN PRN Reason: hypotension / volume replace Sodium Chloride (Ns Inj) 1,000 mls @ 200 mls/hr OTHER .Q5H PRN PRN Reason: for dialyzer flush PRN Lactobacillus Acidophilus (Lactinex) 1 tab PO BID [facility] Last Admin: 09/13/18 09:31 Dose: 1 tab Lactulose (Lactulose Liq) 30 ml PO DAILY PRN PRN Reason: SEVERE CONSITIPATION Mannitol (Mannitol Inj) 12.5 gm IV.PUSH UNSCH PRN PRN Reason: hypotension / volume replace Metoprolol Tartrate (Lopressor) 12.5 mg PO BID [facility] Last Admin: 09/13/18 09:31 Dose: 12.5 mg Nicotine (Habitrol 7 Mg Patch.24 Hr) 1 patch T-DERMAL DAILY [facility] Last Admin: 09/13/18 09:33 Dose: Not Given Nitroglycerin (Nitrostat Sl) 0.4 mg SL Q5M PRN PRN Reason: CHEST PAIN Ondansetron HCl (Zofran Inj) 4 mg IV.PUSH UNSCH PRN PRN Reason: NAUSEA OR VOMITING Oxycodone/Acetaminophen (Percocet 5/325 Mg) 1 tab PO Q6H PRN PRN Reason: PAIN SCALE 1 TO 10 Last Admin: 09/13/18 17:36 Dose: 1 tab Pantoprazole Sodium (Protonix Inj) 40 mg IV.PUSH Q12H [facility] Last Admin: 09/13/18 17:36 Dose: 40 mg Patch Removal (Remove Old Patch) 1 each T-DERMAL DAILY [facility] Last Admin: 09/13/18 09:33 Dose: Not Given Senna/Docusate Sodium (Negin-Colace) 1 tab PO BID [facility] Last Admin: 09/13/18 09:33 Dose: Not Given Sennosides (Senokot) 17.2 mg PO Q12H PRN PRN Reason: Moderate Constipation Sodium Chloride (Ns Flush) 2 ml IV.FLUSH PRN PRN PRN Reason: FLUSH AFTER USING IV ACCESS Last Admin: 09/06/18 08:37 Dose: 2 ml Sodium Chloride (Ns Flush) 2 ml IV.FLUSH BID [facility] Last Admin: 09/13/18 09:33 Dose: 2 ml Sodium Chloride (Ns Flush) 5 ml IV.FLUSH PRN PRN PRN Reason: flush each lumen during HD Tamsulosin HCl (Flomax) 0.4 mg PO DAILY [facility] Last Admin: 09/13/18 09:33 Dose: 0.4 mg Allergies Allergy/AdvReac Type Severity Reaction Status Date / Time Tetanus Vaccines and Toxoid Allergy Severe Fever Verified 08/13/18 15:46 amoxicillin AdvReac Mild Nausea/Vomi Verified 08/13/18 15:46 ting Home Medications Medication Instructions Recorded Confirmed Type bicalutamide 50 mg PO HS 07/09/18 09/03/18 History tamsulosin [Flomax] 0.4 mg PO DAILY 07/09/18 09/03/18 History Physical Exam Vital signs: Vital Signs 09/12/18 19:00 09/12/18 20:00 09/12/18 21:00 Temperature 97.6 F Pulse Rate 64 62 64 Respiratory Rate 16 Blood Pressure 115/64 Pulse Oximetry 98 09/12/18 22:00 09/12/18 23:00 09/13/18 00:00 Temperature 98.9 F Pulse Rate 70 64 66 Respiratory Rate 16 Blood Pressure 106/64 Pulse Oximetry 97 09/13/18 01:00 09/13/18 02:00 09/13/18 02:40 Temperature 99.0 F Pulse Rate 69 68 68 Respiratory Rate 16 Blood Pressure 125/64 Pulse Oximetry 96 09/13/18 03:00 09/13/18 04:00 09/13/18 05:00 Temperature Pulse Rate 65 64 66 Respiratory Rate Blood Pressure Pulse Oximetry 09/13/18 06:00 09/13/18 07:00 09/13/18 08:00 Temperature 98.4 F Pulse Rate 68 62 64 Respiratory Rate 18 Blood Pressure 129/69 Pulse Oximetry 98 09/13/18 09:00 09/13/18 10:00 09/13/18 10:25 Temperature Pulse Rate 64 70 Respiratory Rate 18 Blood Pressure Pulse Oximetry 09/13/18 11:00 09/13/18 12:00 09/13/18 13:00 Temperature 99.5 F Pulse Rate 61 58 L 56 L Respiratory Rate 18 Blood Pressure 116/62 Pulse Oximetry 99 09/13/18 14:00 09/13/18 15:00 09/13/18 16:00 Temperature Pulse Rate 58 L 59 L 97 H Respiratory Rate Blood Pressure Pulse Oximetry 09/13/18 17:00 09/13/18 17:13 09/13/18 18:00 Temperature 99.2 F Pulse Rate 71 71 72 Respiratory Rate 18 Blood Pressure 136/74 Pulse Oximetry 99 Intake & Output 09/12/18 09/13/18 09/13/18 18:59 06:59 18:59 Intake Total 900 / 900 200 / 200 900 / 900 Output Total 325 / 325 500 / 500 1250 / 1250 Balance 575 / 575 -300 / -300 -350 / -350 Weight 71.4 kg Intake: Oral 900 / 900 200 / 200 900 / 900 Output: Urine 325 / 325 500 / 500 250 / 250 Hemodialysis Amount 1000 / 1000 Other: Post Void Residual 7 Date of Last Bowel Movement 09/12/18 09/12/18 09/13/18 # Bowel Movements 1 1 Narrative: GENERAL: NAD, A&Ox3 NECK: Supple, trachea midline. No JVD CARDIOVASCULAR: Regular rate and rhythm without murmurs, gallops, or rubs. Left arm AVF. Right IJ permacath RESPIRATORY: Breath sounds equal bilaterally. No accessory muscle use. GASTROINTESTINAL: Abdomen soft, non-tender, nondistended. +BS MUSCULOSKELETAL: No cyanosis, or edema. SKIN: Warm and dry. Results 09/13/18 05:27 09/13/18 05:27 Cardiac Enzymes 09/12/18 09/13/18 Range/Units 06:13 05:27 AST 45 H 46 H (15-37) U/L CBC 09/12/18 09/13/18 Range/Units 06:13 05:27 WBC 8.2 7.9 (4.0-11.0) th/mm3 RBC 2.55 L 2.45 L (4.50-5.90) mil/mm3 Hgb 7.6 L 7.3 L (13.0-17.0) gm/dL Hct 22.6 L 21.5 L (39.0-51.0) % Plt Count 97 L 113 L (150-450) th/mm3 Neut # (Auto) 4.6 (1.8-7.7) th/mm3 Lymph # (Auto) 2.7 (1.0-4.8) th/mm3 [place] # (Auto) 0.5 (0.0-0.9) th/mm3 Eos # (Auto) 0.1 (0.0-0.4) th/mm3 Baso # (Auto) 0.0 (0.0-0.2) th/mm3 Comprehensive Metabolic Panel 09/12/18 09/12/18 09/13/18 Range/Units 06:13 06:13 05:27 Sodium 141 140 (136-145) meq/L Potassium 3.4 L 3.5 (3.5-5.1) meq/L Chloride 103 104 (98-107) meq/L Carbon Dioxide 28.6 28.6 (21.0-32.0) meq/L BUN 24 H 31 H (7-18) mg/dL Creatinine 3.32 H 4.05 H (0.60-1.30) mg/dL Calcium 7.3 L* Cancelled 7.3 L* (8.5-10.1) mg/dL AST 45 H 46 H (15-37) U/L ALT 13 14 (12-78) U/L Alkaline Phosphatase 1201 H 1346 H (45-117) U/L Total Protein 5.2 L 5.0 L (6.4-8.2) g/dL Albumin 1.9 L Cancelled 1.9 L (3.4-5.0) g/dL Intake and Output 09/13/18 09/13/18 09/13/18 06:59 14:59 22:59 Intake Total 200 / 200 900 / 900 Output Total 500 / 500 1250 / 1250 Balance -300 / -300 -350 / -350 Intake: Oral 200 / 200 900 / 900 Output: Urine 500 / 500 250 / 250 Hemodialysis Amount 1000 / 1000 Other: Post Void Residual 7 Date of Last Bowel Movement 09/12/18 09/12/18 09/13/18 # Bowel Movements 1 Weight 71.4 kg Assessment and Plan - Assessment (1) Elevated troponin Code(s): R74.8 - Abnormal levels of other serum enzymes Status: Acute Plan: as detailed in my note yesterday, likely has underlying cad though unclear if truly nstemi vs symptomatic anemia (2) GI (gastrointestinal bleed) Code(s): K92.2 - Gastrointestinal hemorrhage, unspecified Status: Acute Plan: ok for colonoscopy/egd (noting somewhat higher risk due to potential cardiac ischemia); cath would likely require anticoagulation so need to make sure no active bleeding prior. (3) Anemia Code(s): D64.9 - Anemia, unspecified Status: Acute (4) NSTEMI (non-ST elevated myocardial infarction) Code(s): I21.4 - Non-ST elevation (NSTEMI) myocardial infarction Status: Acute Plan: for now asa held due to gi bleed; statin held due to elevated LFTs; added bb. (5) End stage renal disease Code(s): N18.6 - End stage renal disease Status: Chronic - Plan 1) Significant anemia EGD negative for bleeding source Cscope showing multiple polyps 2) NSTEMI Multivessel CAD Appreciate Oncology assistance Patient not a great candidate for CABG Discussed consideration of coronary stenting for palliative relief to decrease risk of overall angina, MA and CHF He would like to "avoid all procedures" and continue on medical management Overall high risk for stenting as well with significant comorbidities and anemia I've asked palliative care to discuss further with him his goals again, as well as consideration of code status We will continue medical management per his wishes Will con't Norvasc/BB for anti-anginal purposes, will add statin therapy, would prefer if we could get him on ASA therapy if possible 3) Metastatic prostate cancer (3) Anemia Qualifiers: Anemia type: due to chronic kidney disease Chronic kidney disease stage: on chronic dialysis Qualified Code(s): N18.6 - End stage renal disease; D63.1 - Anemia in chronic kidney disease; Z99.2 - Dependence on renal dialysis
[2018-09-14] MEDS: Pantoprazole Inj 40 MG Vial IV.PUSH SCH ×2 (03:25→16:13)
[2018-09-14 06:41] LABS: Hematocrit 22.8 % (39.0-51.0); Hemoglobin 7.7 gm/dL (13.0-17.0); Mean Corpuscular HGB Conc 33.9 % (32.0-36.0); Mean Corpuscular Hemoglobin 29.8 pg (27.0-34.0); Mean Corpuscular Volume 87.8 fL (80.0-100.0); Mean Platelet Volume 7.8 fL (7.0-11.0); Platelet Count 120 th/mm3 (150-450); Red Cell Distribution Width 18.4 % (11.6-17.2); White Blood Count 7.9 th/mm3 (4.0-11.0)
[2018-09-14 07:01] LABS: Anion Gap 10 meq/L (5-15); Aspartate Aminotransferase 42 U/L (15-37); Blood Urea Nitrogen 16 mg/dL (7-18); Calcium 7.6 mg/dL (8.5-10.1); Carbon Dioxide 29.2 meq/L (21.0-32.0); Chloride 101 meq/L (98-107); Glomerular Filtration Rate 23 mL/min (>89); Glucose,Random 99 mg/dL (74-106); Potassium 3.6 meq/L (3.5-5.1); Sodium 140 meq/L (136-145)
[2018-09-14 07:19] LABS: Alanine Aminotransferase 14 U/L (12-78); Alkaline Phosphatase 1489 U/L (45-117); Total Protein 5.3 g/dL (6.4-8.2)
[2018-09-14] MEDS: Lactobacillus Acidophilus/L. Spores Tablet PO SCH ×2 (08:34→21:15)
[2018-09-14] MEDS: Senna/Docusate Sodium 8.6/50 MG Tablet PO SCH ×3 (08:34→21:15)
[2018-09-14] MEDS: amLODIPine 5 MG Tablet PO SCH ×2 (08:34→08:40)
[2018-09-14] MEDS: Metoprolol Tartrate 25 MG Tablet PO SCH ×2 (08:34→21:15)
--- NOTE | 2018-09-14 11:49 | P.PN ---
Subjective Interval history: Follow-up non-ST elevation OR/metastases prostate cancer/and now multi-vessel coronary disease September 12, 2018-patient seen and examined, has no chest pain or shortness of breath. Patient is unsure if he wants to go for any surgical intervention i.e. CABG September 13, 2018-patient seen and examined, has no chest pain, dizziness or shortness of breath. Afebrile. Plan for hemodialysis today September 14, 2018-patient seen and examined, weak but denies any chest pain or shortness of breath. Again states he is not interested in CABG Physical Exam Vital signs: Vital Signs 09/13/18 12:00 09/13/18 13:00 09/13/18 14:00 Temperature 99.5 F Pulse Rate 58 L 56 L 58 L Respiratory Rate 18 Blood Pressure 116/62 Pulse Oximetry 99 09/13/18 15:00 09/13/18 16:00 09/13/18 17:00 Temperature Pulse Rate 59 L 97 H 71 Respiratory Rate Blood Pressure Pulse Oximetry 09/13/18 17:13 09/13/18 18:00 09/13/18 18:10 Temperature 99.2 F Pulse Rate 71 72 Respiratory Rate 18 18 Blood Pressure 136/74 Pulse Oximetry 99 09/13/18 19:00 09/13/18 20:00 09/13/18 21:00 Temperature 99.9 F H Pulse Rate 72 72 64 Respiratory Rate 16 Blood Pressure 118/64 Pulse Oximetry 97 09/13/18 22:00 09/13/18 23:00 09/14/18 00:00 Temperature Pulse Rate 62 63 62 Respiratory Rate Blood Pressure Pulse Oximetry 09/14/18 01:00 09/14/18 02:00 09/14/18 03:00 Temperature Pulse Rate 62 62 68 Respiratory Rate Blood Pressure Pulse Oximetry 09/14/18 04:00 09/14/18 05:00 09/14/18 06:00 Temperature Pulse Rate 66 67 64 Respiratory Rate Blood Pressure Pulse Oximetry 09/14/18 07:00 09/14/18 08:00 09/14/18 09:00 Temperature 98.5 F Pulse Rate 64 72 70 Respiratory Rate 18 Blood Pressure 125/65 Pulse Oximetry 93 L 09/14/18 10:00 09/14/18 11:00 Temperature Pulse Rate 64 58 L Respiratory Rate Blood Pressure Pulse Oximetry Intake & Output 09/13/18 09/14/18 09/14/18 18:59 06:59 18:59 Intake Total 900 / 900 250 / 250 Output Total 1250 / 1250 350 / 350 Balance -350 / -350 -100 / -100 Weight 71.2 kg Intake: Oral 900 / 900 250 / 250 Output: Urine 250 / 250 350 / 350 Hemodialysis Amount 1000 / 1000 Other: Date of Last Bowel Movement 09/13/18 09/13/18 09/14/18 # Bowel Movements 1 Narrative: GENERAL: NAD, A&Ox3 NECK: Supple, trachea midline. No JVD CARDIOVASCULAR: Regular rate and rhythm without murmurs, gallops, or rubs. Left arm AVF. Right IJ permacath RESPIRATORY: Breath sounds equal bilaterally. No accessory muscle use. GASTROINTESTINAL: Abdomen soft, non-tender, nondistended. +BS MUSCULOSKELETAL: No cyanosis, or edema. SKIN: Warm and dry. Results - Labs CBC & Chem 7: 09/14/18 05:41 09/14/18 05:41 Laboratory Results - last 24 hr 09/13/18 09/14/18 09/14/18 11:04 05:41 05:41 WBC 7.9 RBC 2.60 L Hgb 7.7 L Hct 22.8 L MCV 87.8 MCH 29.8 MCHC 33.9 RDW 18.4 H Plt Count 120 L MPV 7.8 Sodium 140 Potassium 3.6 Chloride 101 Carbon Dioxide 29.2 Anion Gap 10 BUN 16 Creatinine 2.82 H Estimated GFR 23 L Random Glucose 99 Calcium 7.6 L Total Bilirubin 0.5 AST 42 H ALT 14 Alkaline Phosphatase 1489 H Total Protein 5.3 L Albumin 2.0 L Blood Type O Negative Antibody Screen Negative MTS Gel Crossmatch See Detail Bld Prod Order Comment Assessment and Plan - Assessment (1) End stage renal disease Code(s): N18.6 - End stage renal disease Status: Chronic (2) Anemia Code(s): D64.9 - Anemia, unspecified Status: Acute (3) Joint pain Code(s): M25.50 - Pain in unspecified joint Status: Deleted (4) Dyspnea Code(s): R06.00 - Dyspnea, unspecified Status: Acute (5) Prostate cancer metastatic to bone Code(s): C61 - Malignant neoplasm of prostate; C79.51 - Secondary malignant neoplasm of bone Status: Chronic - Plan 63-year-old man with Tobacco use disorder Chronic pain * Patient counseled on smoking cessation, nicotine patch ordered * Pain control as needed Multivessel coronary artery disease Non-ST elevation OR Cardiothoracic has been consulted for evaluation for possible CABG. however patient states he is not interested in CABG Continue with aspirin, beta fab, statin. Heparin is contraindicated in the setting of GI bleed Appreciate input from cardiology Bilateral pleural effusions, right greater than left Dyspnea * Incentive spirometer while awake * Nebs scheduled and PRN * Nicotine patch Acute hyperkalemia End stage renal disease on hemodialysis * IHD per nephrology scheduling. Suspected recurrent GI bleed, likely lower Acute on chronic normocytic anemia secondary to blood loss * GI recommendations appreciated * Transfuse for hemoglobin less than 7 EGD shows no significant source of bleed Colonoscopy revealed multiple colon polyps. Some of the polyps were removed. Per GI, recommend delaying anticoagulation or NSAIDs for 5 days due to large number of polyps resected and risk of delayed bleeding. History of metastatic prostate CA * Continue home Flomax * Hold bicalutamide for now * Management per oncology * History of C diff colitis Lactic acidosis-resolved * continue home PO metronidazole * Patient given zosyn in ED, continue for now until blood cultures result; patient declined vancomycin * F/U blood cultures, increased risk for bacteremia as he has indwelling HD catheter Prophylaxis * SCDs only, heparin contraindicated in the setting of acute blood loss anemia * Protonix BID in the setting of GIB (2) Anemia Qualifiers: Anemia type: due to chronic kidney disease Chronic kidney disease stage: on chronic dialysis Qualified Code(s): N18.6 - End stage renal disease; D63.1 - Anemia in chronic kidney disease; Z99.2 - Dependence on renal dialysis (3) Joint pain Qualifiers: Joint pain location: hip Laterality: left Qualified Code(s): M25.552 - Pain in left hip (4) Dyspnea Qualifiers: Dyspnea type: shortness of breath Qualified Code(s): R06.02 - Shortness of breath; R06.00 - Dyspnea, unspecified; R06.01 - Orthopnea
--- NOTE | 2018-09-14 14:30 | P.PNPAL ---
Reason for Visit Reason for visit: a. To assist with evaluation and management of symptoms including: dyspnea, pain. b. To assist medical decision maker(s) with: better understanding of current medical conditions; weighing benefits/burdens of medical treatment options; making medical treatment decisions. Subjective Subjective/Interval History: Patient seen to follow up on symptom management, goals of care. Mr. Ross is a 63-year-old male with a medical history significant for metastatic prostate cancer, end-stage renal disease on hemodialysis, multivessel coronary artery disease with recent NSTEMI, anemia and physical deconditioning. Patient seen in his room, resting in bed in no acute distress. Patient endorsing left hip and knee pain, currently rated at 6/10. Pain is dull, intermittent, exacerbated by movement and alleviated by Percocet. Patient endorsing generalized weakness/debility and poor appetite. Denies shortness of breath, nausea or vomiting. Daughter Christin at bedside. Patient verbalized not having any additional questions regarding her conversation from yesterday. He still reporting that he would like to continue conservative medical management and "stay away from surgeries". Patient receptive to physical rehabilitation as recommended by PT. review concerns of patient's ability to fully participate in physical rehabilitation given significant symptom burden. Patient tells me that his ultimate goal is to return home for independent living; however, understands that he is very weak and my require assistance such as rehabilitation or even long-term facility placement. Patient appears to have a fair understanding of his overall poor prognosis and complicated clinical course in the setting of metastatic prostate cancer, end-stage renal disease hemodialysis dependent, multivessel coronary disease, recent NSTEMI and physical deconditioning. Reviewed in detail CPR, intubation and mechanical ventilation given the above. Patient reports that he wishes to remain full code at this time. Patient and claudia Waller were encouraged to continue goals of care conversation, limitations of medical treatment in the event patient is unable to communicate his wishes. Case discussed with Dr. Contreras. Advance Directives Living Will: Never completed Health Care Surrogate: Never completed Durable Power of Basket Operator: Never completed Health Care Surrogate Name and Number: HCP: sonJuan Manuel AND daughterChristin Objective Vital Signs: Vital Signs 09/13/18 15:00 09/13/18 16:00 09/13/18 17:00 Temperature Pulse Rate 59 L 97 H 71 Respiratory Rate Blood Pressure Pulse Oximetry 09/13/18 17:13 09/13/18 18:00 09/13/18 18:10 Temperature 99.2 F Pulse Rate 71 72 Respiratory Rate 18 18 Blood Pressure 136/74 Pulse Oximetry 99 09/13/18 19:00 09/13/18 20:00 09/13/18 21:00 Temperature 99.9 F H Pulse Rate 72 72 64 Respiratory Rate 16 Blood Pressure 118/64 Pulse Oximetry 97 09/13/18 22:00 09/13/18 23:00 09/14/18 00:00 Temperature Pulse Rate 62 63 62 Respiratory Rate Blood Pressure Pulse Oximetry 09/14/18 01:00 09/14/18 02:00 09/14/18 03:00 Temperature Pulse Rate 62 62 68 Respiratory Rate Blood Pressure Pulse Oximetry 09/14/18 04:00 09/14/18 05:00 09/14/18 06:00 Temperature Pulse Rate 66 67 64 Respiratory Rate Blood Pressure Pulse Oximetry 09/14/18 07:00 09/14/18 08:00 09/14/18 09:00 Temperature 98.5 F Pulse Rate 64 72 70 Respiratory Rate 18 Blood Pressure 125/65 Pulse Oximetry 93 L 09/14/18 10:00 09/14/18 11:00 09/14/18 12:00 Temperature 98.6 F Pulse Rate 64 58 L 58 L Respiratory Rate 18 Blood Pressure 120/68 Pulse Oximetry 96 09/14/18 13:00 09/14/18 14:00 Temperature Pulse Rate 70 68 Respiratory Rate Blood Pressure Pulse Oximetry Intake & Output 09/13/18 09/14/18 09/14/18 18:59 06:59 18:59 Intake Total 900 / 900 250 / 250 Output Total 1250 / 1250 350 / 350 Balance -350 / -350 -100 / -100 Weight 71.2 kg Intake: Oral 900 / 900 250 / 250 Output: Urine 250 / 250 350 / 350 Hemodialysis Amount 1000 / 1000 Other: Date of Last Bowel Movement 09/13/18 09/13/18 09/14/18 # Bowel Movements 1 Physical Exam: CONSTITUTIONAL/GENERAL: This is a thin, chronically ill appearing man, in no apparent distress. SKIN: No jaundice, rashes, or lesions. Multiple areas ecchymoses on upper extremities. Slightly sallow color. Skin warm and dry. EYES: Pupils equal and round and reactive. ENT: Hearing grossly normal. Nose without bleeding or purulent drainage. Throat without visible erythema, exudates, masses, or lesions. CARDIOVASCULAR: Regular rate and rhythm without murmurs, gallops, or rubs. No JVD. Peripheral pulses symmetric. RESPIRATORY/CHEST: Symmetric, unlabored respirations. Clear to auscultation. On room air. Breath sounds equal bilaterally. No wheezes, rales, or rhonchi. GASTROINTESTINAL: Abdomen soft, non-tender, nondistended. No guarding. GENITOURINARY: Without palpable bladder distension. MUSCULOSKELETAL: Extremities without clubbing, cyanosis,. Trace edema to bilateral lower arms .feet cool to touch. No calf tenderness. No mottling or clubbing. NEUROLOGICAL: Awake and alert, oriented x3. Appropriate. Reasonable insight. Generalized weakness-moves all 4 extremities well. Cooperative, follows commands. PSYCHIATRIC: No obvious anxiety/depression. no apparent hallucinations or other psychotic thought process. Diagnostic Tests Laboratory: Laboratory Results - last 72 hr 09/12/18 09/12/18 09/12/18 06:13 06:13 06:13 WBC 8.2 RBC 2.55 L Hgb 7.6 L Hct 22.6 L MCV 88.4 MCH 29.7 MCHC 33.6 RDW 18.6 H Plt Count 97 L MPV 7.7 Neut % (Auto) Lymph % (Auto) [place] % (Auto) Eos % (Auto) Baso % (Auto) Neut # (Auto) Lymph # (Auto) [place] # (Auto) Eos # (Auto) Baso # (Auto) WBC Differential Differential Comment Sodium 141 Potassium 3.4 L Chloride 103 Carbon Dioxide 28.6 Anion Gap 9 BUN 24 H Creatinine 3.32 H Estimated GFR 19 L Random Glucose 95 Calcium 7.3 L* Cancelled Calcium Adj for Albumin 9.0 Cancelled Total Bilirubin 0.5 AST 45 H ALT 13 Alkaline Phosphatase 1201 H Total Protein 5.2 L Albumin 1.9 L Cancelled Blood Type Antibody Screen MTS Gel Crossmatch Bld Prod Order Comment 09/13/18 09/13/18 09/13/18 05:27 05:27 11:04 WBC 7.9 RBC 2.45 L Hgb 7.3 L Hct 21.5 L MCV 88.0 MCH 29.7 MCHC 33.7 RDW 18.8 H Plt Count 113 L MPV 7.7 Neut % (Auto) 58.2 Lymph % (Auto) 34.4 [place] % (Auto) 6.1 Eos % (Auto) 0.8 Baso % (Auto) 0.5 Neut # (Auto) 4.6 Lymph # (Auto) 2.7 [place] # (Auto) 0.5 Eos # (Auto) 0.1 Baso # (Auto) 0.0 WBC Differential . Differential Comment Auto diff final Sodium 140 Potassium 3.5 Chloride 104 Carbon Dioxide 28.6 Anion Gap 7 BUN 31 H Creatinine 4.05 H Estimated GFR 15 L Random Glucose 107 H Calcium 7.3 L* Calcium Adj for Albumin 9.0 Total Bilirubin 0.4 AST 46 H ALT 14 Alkaline Phosphatase 1346 H Total Protein 5.0 L Albumin 1.9 L Blood Type O Negative Antibody Screen Negative MTS Gel Crossmatch See Detail Bld Prod Order Comment 09/14/18 09/14/18 05:41 05:41 WBC 7.9 RBC 2.60 L Hgb 7.7 L Hct 22.8 L MCV 87.8 MCH 29.8 MCHC 33.9 RDW 18.4 H Plt Count 120 L MPV 7.8 Neut % (Auto) Lymph % (Auto) [place] % (Auto) Eos % (Auto) Baso % (Auto) Neut # (Auto) Lymph # (Auto) [place] # (Auto) Eos # (Auto) Baso # (Auto) WBC Differential Differential Comment Sodium 140 Potassium 3.6 Chloride 101 Carbon Dioxide 29.2 Anion Gap 10 BUN 16 Creatinine 2.82 H Estimated GFR 23 L Random Glucose 99 Calcium 7.6 L Calcium Adj for Albumin Total Bilirubin 0.5 AST 42 H ALT 14 Alkaline Phosphatase 1489 H Total Protein 5.3 L Albumin 2.0 L Blood Type Antibody Screen MTS Gel Crossmatch Bld Prod Order Comment Result Diagrams: 09/14/18 05:41 09/14/18 05:41 Procedures: * 09/05/18 - Endoscopy and biopsy * 09/07/18 - colonoscopy Assessment and Plan - Disease Oriented Problem List (1) End stage renal disease (2) Prostate cancer metastatic to bone (3) GI (gastrointestinal bleed) (4) NSTEMI (non-ST elevated myocardial infarction) (5) Elevated troponin (6) Multi-vessel coronary artery stenosis - Symptom Scale (1) Pain 0-10 Scale: 6 (2) Dyspnea 0-10 Scale: 0 Pertinent Non-Medical Issues: Psychosocial:. Retired. Has 1 son and 1 daughter. Spiritual:Unknown. Legal: No written advance directives. According to [place] statutes, should the patient lose capacity, health care proxy decision making would fall to the majority of adult children (he has 2 sons and 1 daughter). 1 son Mekhi has Down Syndrome and unable to participate. Ethical issues impacting care: No known concerns at this time. Important Contacts: * Juan Manuel Ross, son: [phone] * Christin Ely, daughter: [phone] Prognosis: Mr. Ross is a 63-year-old male with a medical history significant for end- stage renal disease on hemodialysis, metastatic prostate cancer, multi-vessel coronary disease, ejection fraction of 25-30%, recent end NSTEMI. Patient admitted with anemia and elevated troponins. He is not a surgical candidate for multivessel coronary disease given multiple chronic comorbidities and physical deconditioning. Overall prognosis is poor. Code Status: Full Code Plan: * CODE STATUS: FULL code. Risks, benefits and limitations of CPR, intubation and mechanical ventilation in the setting of his current medical condition has been discussed at length with patient on 09/13, he wishes to remain full code at this time but verbalized that he will "think about it". * MEDICAL DECISION-MAKING: Patient participating medical decision making. He appears to have a fair understanding of his complicated clinical condition. No advanced directives completed. As per [place] statue, Should the patient lose capacity, health care proxy decision making would fall to the majority of adult children. He has 2 sons (Juan Manuel and Mekhi) and 1 daughter (Christin). Griffin Gaming is nonverbal, has Down syndrome and is unable to participate in healthcare decision-making. Assistance with completion of advance directives offered and declined by patient on 09/13 and 09/14. * GOALS OF THERAPY: Patient tells me that his goal of treatment is to follow oncology's recommendations for conservative medical management and to "stay away from surgeries"; however, patient today inquiring regarding possible stenting of cardiac vessels. Patient tells me that his ultimate goal is to return home for independent living; however, understands that he is very weak and may require assistance such as rehabilitation or even long-term facility placement. Patient appears to have a fair understanding of his overall poor prognosis and complicated clinical course in the setting of metastatic prostate cancer, end-stage renal disease hemodialysis dependent, multivessel coronary disease, recent NSTEMI and physical deconditioning. Patient and daughter Christin were encouraged to discuss goals of care, limitations to treatment given the above. * SYMPTOMS: =Pain; to left hip and left knee, site of bone metastasis. Percocet 5/325 every 6 hours available as needed. In the past 24 hours, patient has received 1 dose with good effect. No further recommendations at this time. = Shortness of breath: Multifactorial secondary to burden of disease , anemia, cardiac disease. Patient denies shortness of breath at time of my visit. No further recommendations at this time. * Case discussed with Dr. Contreras. * Palliative contact information has been provided to patient. * Palliative care will continue to follow as needed to assist with symptom management and clarification of goals of medical treatment throughout hospital course. Time Spent Total Floor Time (mins): 33 (Total time to include review of medical records, physical exam, goals of care conversation with patient and daughter, case discussion with Dr. Contreras.) >50% Time in Counseling or Coordination of Care: Yes (Total visit time = 33 minutes; > 50% spent counseling/coordinating care) Attestation Attestation: To help prompt me to consider important information that might be impacting today's encounter and assessment, information from prior notes written by myself or my colleagues may have been "brought forward" into today's note. My signature on this note, however, is an attestation that I personally performed the exam, history, and/or decision-making noted today, and, unless otherwise indicated, the interactions with patient, family, and staff as well as the review of records all occurred today. I also attest that the listed assessment and stated plan reflect my best clinical judgment today based on the combination of historical information, prior notes, and today's exam/ interactions. When time spent is documented, it refers only to time spent today by the signer, or if indicated, combined time spent today by collaborating physician/nurse practitioner.
--- NOTE | 2018-09-14 19:46 | P.PNCA ---
Subjective Interval history: No events overnight Weak, no chest pain, no SOB Medications and Allergies Active Medications: Active Medications Al Hydroxide/Mg Hydroxide (Milk Of Magntiffanie Liq) 30 ml PO Q12H PRN PRN Reason: Mild Constipation Albuterol (Albuterol Neb (Prn)) 2.5 mg NEB Q2HR NEB PRN PRN Reason: SHORTNESS OF BREATH Amlodipine Besylate (Norvasc) 5 mg PO DAILY [facility] Last Admin: 09/14/18 08:40 Dose: Not Given Atorvastatin Calcium (Lipitor) 20 mg PO HS [facility] Last Admin: 09/13/18 20:07 Dose: Not Given Bicalutamide (Casodex) 50 mg PO DAILY [facility] Last Admin: 09/14/18 08:34 Dose: 50 mg Bisacodyl (Dulcolax Supp) 10 mg RECTAL DAILY PRN PRN Reason: SEVERE CONSITIPATION Clonidine HCl (Catapres) 0.1 mg PO UNSCH PRN PRN Reason: SEE LABEL COMMENTS Diphenhydramine HCl (Benadryl) 25 mg PO UNSCH PRN PRN Reason: SEE LABEL COMMENTS Epoetin Hermes (Epogen Inj) 10,000 unit IV.PUSH UNSCH PRN PRN Reason: SEE LABEL COMMENTS Last Admin: 09/13/18 16:10 Dose: 10,000 unit Gelatin (Gelfoam 12 Mm/7 Mm Topical) 1 foam TOPICAL PRN PRN PRN Reason: help stop bleeding from site Gentamicin Sulfate (Gentamicin Inj) 20 mg OTHER WITH DIALYSIS PRN PRN Reason: Dwell Gentamycin Lock Last Admin: 09/13/18 16:10 Dose: 20 mg Heparin Sodium (Porcine) (Heparin Inj) 8,000 units OTHER WITH DIALYSIS PRN PRN Reason: for machine prime Heparin Sodium (Porcine) (Heparin Inj) 1,000 units OTHER WITH DIALYSIS PRN PRN Reason: Dwell Heparin to Fill Catheter Last Admin: 09/13/18 16:10 Dose: 1,000 units Albumin Human (Flexbumin 25% Inj) 100 mls @ 60 mls/hr IV.SIG WITH DIALYSIS PRN PRN Reason: hypotension / volume replace Sodium Chloride (Ns Inj) 1,000 mls @ 0 mls/hr OTHER .Q0M PRN PRN Reason: for prime and rinse back Sodium Chloride (Ns Inj) 1,000 mls @ 0 mls/hr IV.CONT .Q0M PRN PRN Reason: hypotension / volume replace Sodium Chloride (Ns Inj) 1,000 mls @ 200 mls/hr OTHER .Q5H PRN PRN Reason: for dialyzer flush PRN Lactobacillus Acidophilus (Lactinex) 1 tab PO BID [facility] Last Admin: 09/14/18 08:34 Dose: 1 tab Lactulose (Lactulose Liq) 30 ml PO DAILY PRN PRN Reason: SEVERE CONSITIPATION Mannitol (Mannitol Inj) 12.5 gm IV.PUSH UNSCH PRN PRN Reason: hypotension / volume replace Metoprolol Tartrate (Lopressor) 12.5 mg PO BID [facility] Last Admin: 09/14/18 08:34 Dose: 12.5 mg Nicotine (Habitrol 7 Mg Patch.24 Hr) 1 patch T-DERMAL DAILY [facility] Last Admin: 09/14/18 08:34 Dose: Not Given Nitroglycerin (Nitrostat Sl) 0.4 mg SL Q5M PRN PRN Reason: CHEST PAIN Oxycodone/Acetaminophen (Percocet 5/325 Mg) 1 tab PO Q6H PRN PRN Reason: PAIN SCALE 1 TO 10 Last Admin: 09/14/18 16:10 Dose: 1 tab Pantoprazole Sodium (Protonix Inj) 40 mg IV.PUSH Q12H [facility] Last Admin: 09/14/18 16:13 Dose: 40 mg Patch Removal (Remove Old Patch) 1 each T-DERMAL DAILY [facility] Last Admin: 09/14/18 08:35 Dose: Not Given Senna/Docusate Sodium (Negin-Colace) 1 tab PO BID [facility] Last Admin: 09/14/18 08:40 Dose: Not Given Sennosides (Senokot) 17.2 mg PO Q12H PRN PRN Reason: Moderate Constipation Sodium Chloride (Ns Flush) 2 ml IV.FLUSH PRN PRN PRN Reason: FLUSH AFTER USING IV ACCESS Last Admin: 09/06/18 08:37 Dose: 2 ml Sodium Chloride (Ns Flush) 2 ml IV.FLUSH BID [facility] Last Admin: 09/14/18 08:35 Dose: 2 ml Sodium Chloride (Ns Flush) 5 ml IV.FLUSH PRN PRN PRN Reason: flush each lumen during HD Tamsulosin HCl (Flomax) 0.4 mg PO DAILY [facility] Last Admin: 09/14/18 08:34 Dose: 0.4 mg Allergies Allergy/AdvReac Type Severity Reaction Status Date / Time Tetanus Vaccines and Toxoid Allergy Severe Fever Verified 08/13/18 15:46 amoxicillin AdvReac Mild Nausea/Vomi Verified 08/13/18 15:46 ting Home Medications Medication Instructions Recorded Confirmed Type bicalutamide 50 mg PO HS 07/09/18 09/03/18 History tamsulosin [Flomax] 0.4 mg PO DAILY 07/09/18 09/03/18 History Physical Exam Vital signs: Vital Signs 09/13/18 20:00 09/13/18 21:00 09/13/18 22:00 Temperature 99.9 F H Pulse Rate 72 64 62 Respiratory Rate 16 Blood Pressure 118/64 Pulse Oximetry 97 09/13/18 23:00 09/14/18 00:00 09/14/18 01:00 Temperature Pulse Rate 63 62 62 Respiratory Rate Blood Pressure Pulse Oximetry 09/14/18 02:00 09/14/18 03:00 09/14/18 04:00 Temperature Pulse Rate 62 68 66 Respiratory Rate Blood Pressure Pulse Oximetry 09/14/18 05:00 09/14/18 06:00 09/14/18 07:00 Temperature Pulse Rate 67 64 64 Respiratory Rate Blood Pressure Pulse Oximetry 09/14/18 08:00 09/14/18 09:00 09/14/18 10:00 Temperature 98.5 F Pulse Rate 72 70 64 Respiratory Rate 18 Blood Pressure 125/65 Pulse Oximetry 93 L 09/14/18 11:00 09/14/18 12:00 09/14/18 13:00 Temperature 98.6 F Pulse Rate 58 L 58 L 70 Respiratory Rate 18 Blood Pressure 120/68 Pulse Oximetry 96 09/14/18 14:00 09/14/18 15:00 09/14/18 16:00 Temperature 98.4 F Pulse Rate 68 65 65 Respiratory Rate 18 Blood Pressure 119/60 Pulse Oximetry 93 L 09/14/18 16:49 09/14/18 17:00 09/14/18 18:00 Temperature Pulse Rate 64 63 Respiratory Rate Blood Pressure Pulse Oximetry 93 L 09/14/18 19:00 09/14/18 19:29 Temperature 98.8 F Pulse Rate 65 60 Respiratory Rate 17 Blood Pressure 121/64 Pulse Oximetry 98 Intake & Output 09/14/18 09/14/18 09/15/18 06:59 18:59 06:59 Intake Total 250 / 250 924 / 924 Output Total 350 / 350 350 / 350 Balance -100 / -100 574 / 574 Weight 71.2 kg Intake: Oral 250 / 250 924 / 924 Output: Urine 350 / 350 350 / 350 Other: Date of Last Bowel Movement 09/13/18 09/14/18 09/13/18 # Bowel Movements 1 Narrative: GENERAL: NAD, A&Ox3 NECK: Supple, trachea midline. No JVD CARDIOVASCULAR: Regular rate and rhythm without murmurs, gallops, or rubs. Left arm AVF. Right IJ permacath RESPIRATORY: Breath sounds equal bilaterally. No accessory muscle use. GASTROINTESTINAL: Abdomen soft, non-tender, nondistended. +BS MUSCULOSKELETAL: No cyanosis, or edema. SKIN: Warm and dry. Results 09/14/18 05:41 09/14/18 05:41 Cardiac Enzymes 09/13/18 09/14/18 Range/Units 05:27 05:41 AST 46 H 42 H (15-37) U/L CBC 09/13/18 09/14/18 Range/Units 05:27 05:41 WBC 7.9 7.9 (4.0-11.0) th/mm3 RBC 2.45 L 2.60 L (4.50-5.90) mil/mm3 Hgb 7.3 L 7.7 L (13.0-17.0) gm/dL Hct 21.5 L 22.8 L (39.0-51.0) % Plt Count 113 L 120 L (150-450) th/mm3 Neut # (Auto) 4.6 (1.8-7.7) th/mm3 Lymph # (Auto) 2.7 (1.0-4.8) th/mm3 Reynolds # (Auto) 0.5 (0.0-0.9) th/mm3 Eos # (Auto) 0.1 (0.0-0.4) th/mm3 Baso # (Auto) 0.0 (0.0-0.2) th/mm3 Comprehensive Metabolic Panel 09/13/18 09/14/18 Range/Units 05:27 05:41 Sodium 140 140 (136-145) meq/L Potassium 3.5 3.6 (3.5-5.1) meq/L Chloride 104 101 (98-107) meq/L Carbon Dioxide 28.6 29.2 (21.0-32.0) meq/L BUN 31 H 16 (7-18) mg/dL Creatinine 4.05 H 2.82 H (0.60-1.30) mg/dL Calcium 7.3 L* 7.6 L (8.5-10.1) mg/dL AST 46 H 42 H (15-37) U/L ALT 14 14 (12-78) U/L Alkaline Phosphatase 1346 H 1489 H (45-117) U/L Total Protein 5.0 L 5.3 L (6.4-8.2) g/dL Albumin 1.9 L 2.0 L (3.4-5.0) g/dL Intake and Output 09/14/18 09/14/18 09/14/18 06:59 14:59 22:59 Intake Total 250 / 250 924 / 924 Output Total 150 / 150 350 / 350 Balance 100 / 100 574 / 574 Intake: Oral 250 / 250 924 / 924 Output: Urine 150 / 150 350 / 350 Other: Date of Last Bowel Movement 09/13/18 09/14/18 09/13/18 # Bowel Movements 1 Weight 71.2 kg Assessment and Plan - Assessment (1) Elevated troponin Code(s): R74.8 - Abnormal levels of other serum enzymes Status: Acute Plan: as detailed in my note yesterday, likely has underlying cad though unclear if truly nstemi vs symptomatic anemia (2) GI (gastrointestinal bleed) Code(s): K92.2 - Gastrointestinal hemorrhage, unspecified Status: Acute Plan: ok for colonoscopy/egd (noting somewhat higher risk due to potential cardiac ischemia); cath would likely require anticoagulation so need to make sure no active bleeding prior. (3) Anemia Code(s): D64.9 - Anemia, unspecified Status: Acute (4) NSTEMI (non-ST elevated myocardial infarction) Code(s): I21.4 - Non-ST elevation (NSTEMI) myocardial infarction Status: Acute Plan: for now asa held due to gi bleed; statin held due to elevated LFTs; added bb. (5) End stage renal disease Code(s): N18.6 - End stage renal disease Status: Chronic - Plan 1) Significant anemia EGD negative for bleeding source Cscope showing multiple polyps 2) NSTEMI Multivessel CAD Appreciate Oncology assistance Patient not a great candidate for CABG Discussed consideration of coronary stenting for palliative relief to decrease risk of overall angina, IN and CHF He would like to "avoid all procedures" and continue on medical management Overall high risk for stenting as well with significant comorbidities and anemia He wants to see what Oncology has to offer as far as his prostate cancer, get stronger and consider stents in the future Discussed with palliative care We will continue medical management per his wishes Will con't Norvasc/BB for anti-anginal purposes, statin therapy, and will add ASA to his regiment 3) Metastatic prostate cancer (3) Anemia Qualifiers: Anemia type: due to chronic kidney disease Chronic kidney disease stage: on chronic dialysis Qualified Code(s): N18.6 - End stage renal disease; D63.1 - Anemia in chronic kidney disease; Z99.2 - Dependence on renal dialysis
--- NOTE | 2018-09-14 21:27 | P.PNNP ---
Subjective Interval history: Patient seen in the late afternoon, no SOB or chest pain, not eating well. Physical Exam Vital signs: Vital Signs 09/13/18 22:00 09/13/18 23:00 09/14/18 00:00 Temperature Pulse Rate 62 63 62 Respiratory Rate Blood Pressure Pulse Oximetry 09/14/18 01:00 09/14/18 02:00 09/14/18 03:00 Temperature Pulse Rate 62 62 68 Respiratory Rate Blood Pressure Pulse Oximetry 09/14/18 04:00 09/14/18 05:00 09/14/18 06:00 Temperature Pulse Rate 66 67 64 Respiratory Rate Blood Pressure Pulse Oximetry 09/14/18 07:00 09/14/18 08:00 09/14/18 09:00 Temperature 98.5 F Pulse Rate 64 72 70 Respiratory Rate 18 Blood Pressure 125/65 Pulse Oximetry 93 L 09/14/18 10:00 09/14/18 11:00 09/14/18 12:00 Temperature 98.6 F Pulse Rate 64 58 L 58 L Respiratory Rate 18 Blood Pressure 120/68 Pulse Oximetry 96 09/14/18 13:00 09/14/18 14:00 09/14/18 15:00 Temperature Pulse Rate 70 68 65 Respiratory Rate Blood Pressure Pulse Oximetry 09/14/18 16:00 09/14/18 16:49 09/14/18 17:00 Temperature 98.4 F Pulse Rate 65 64 Respiratory Rate 18 Blood Pressure 119/60 Pulse Oximetry 93 L 93 L 09/14/18 18:00 09/14/18 19:00 09/14/18 19:29 Temperature 98.8 F Pulse Rate 63 65 60 Respiratory Rate 17 Blood Pressure 121/64 Pulse Oximetry 98 09/14/18 20:00 09/14/18 21:00 Temperature Pulse Rate 60 59 L Respiratory Rate Blood Pressure Pulse Oximetry 98 Intake & Output 09/14/18 09/14/18 09/15/18 06:59 18:59 06:59 Intake Total 250 / 250 924 / 924 Output Total 350 / 350 350 / 350 Balance -100 / -100 574 / 574 Weight 71.2 kg Intake: Oral 250 / 250 924 / 924 Output: Urine 350 / 350 350 / 350 Other: Date of Last Bowel Movement 09/13/18 09/14/18 09/13/18 # Bowel Movements 1 Narrative: GENERAL: NAD, A&Ox3 NECK: Supple, trachea midline. No JVD CARDIOVASCULAR: Regular rate and rhythm without murmurs, gallops, or rubs. Left arm AVF. Right IJ permacath RESPIRATORY: Breath sounds equal bilaterally. No accessory muscle use. GASTROINTESTINAL: Abdomen soft, non-tender, nondistended. +BS MUSCULOSKELETAL: No cyanosis, or edema. SKIN: Warm and dry. Assessment and Plan - Assessment (1) End stage renal disease Code(s): N18.6 - End stage renal disease Status: Chronic (2) Anemia Code(s): D64.9 - Anemia, unspecified Status: Acute Qualifiers: Anemia type: due to chronic kidney disease Chronic kidney disease stage: on chronic dialysis Qualified Code(s): N18.6 - End stage renal disease; D63.1 - Anemia in chronic kidney disease; Z99.2 - Dependence on renal dialysis (3) Dyspnea Code(s): R06.00 - Dyspnea, unspecified Status: Acute Qualifiers: Dyspnea type: shortness of breath Qualified Code(s): R06.02 - Shortness of breath; R06.00 - Dyspnea, unspecified; R06.01 - Orthopnea (4) Prostate cancer metastatic to bone Code(s): C61 - Malignant neoplasm of prostate; C79.51 - Secondary malignant neoplasm of bone Status: Chronic - Plan HD MWF Has current right IJ catheter Left upper arm AVF with recent infiltration, pulsatile with possible outflow vein stenosis vs infiltration swelling. Allow AVF to rest, may re-evaluate as an outpatient. Post colonoscopy Tuesday - multiple polyps, larger polyps removed Hgb. is low but stable, transfuse as needed On Epogen with dialysis Following with cardiology - post Cardiac [facility]. Cardiology follow up noted. metastatic prostate cancer. Hgb. is low, on Epogen and transfuse if Hgb is below 7.0. Has multi vessel disease, but not a good candidate for CABG. Palliative care following. HD will be in AM. .
[2018-09-15] MEDS: Pantoprazole Inj 40 MG Vial IV.PUSH SCH ×2 (02:51→16:59)
[2018-09-15 06:02] LABS: Hematocrit 22.7 % (39.0-51.0); Hemoglobin 7.4 gm/dL (13.0-17.0); Mean Corpuscular HGB Conc 32.8 % (32.0-36.0); Mean Corpuscular Hemoglobin 29.3 pg (27.0-34.0); Mean Corpuscular Volume 89.3 fL (80.0-100.0); Mean Platelet Volume 7.7 fL (7.0-11.0); Platelet Count 136 th/mm3 (150-450); Red Blood Count 2.54 mil/mm3 (4.50-5.90); Red Cell Distribution Width 18.6 % (11.6-17.2); White Blood Count 8.2 th/mm3 (4.0-11.0)
[2018-09-15 06:29] LABS: Anion Gap 8 meq/L (5-15); Aspartate Aminotransferase 32 U/L (15-37); Blood Urea Nitrogen 22 mg/dL (7-18); Calcium 7.5 mg/dL (8.5-10.1); Carbon Dioxide 30.4 meq/L (21.0-32.0); Chloride 101 meq/L (98-107); Glomerular Filtration Rate 17 mL/min (>89); Glucose,Random 100 mg/dL (74-106); Potassium 3.7 meq/L (3.5-5.1); Sodium 139 meq/L (136-145)
[2018-09-15 06:45] LABS: Alanine Aminotransferase 12 U/L (12-78); Alkaline Phosphatase 1552 U/L (45-117); Total Protein 5.2 g/dL (6.4-8.2)
--- NOTE | 2018-09-15 11:39 | P.PN ---
Subjective Interval history: Follow-up non-ST elevation [place]/metastases prostate cancer/and now multi-vessel coronary disease September 12, 2018-patient seen and examined, has no chest pain or shortness of breath. Patient is unsure if he wants to go for any surgical intervention i.e. CABG September 13, 2018-patient seen and examined, has no chest pain, dizziness or shortness of breath. Afebrile. Plan for hemodialysis today September 14, 2018-patient seen and examined, weak but denies any chest pain or shortness of breath. Again states he is not interested in CABG September 15, 2018-patient seen and examined, stable and no complaint. Awaiting for hemodialysis today. he Believes that his diagnosis of prostate cancer will improve prior to considering CABG Physical Exam Vital signs: Vital Signs 09/14/18 12:00 09/14/18 13:00 09/14/18 14:00 Temperature 98.6 F Pulse Rate 58 L 70 68 Respiratory Rate 18 Blood Pressure 120/68 Pulse Oximetry 96 09/14/18 15:00 09/14/18 16:00 09/14/18 16:49 Temperature 98.4 F Pulse Rate 65 65 Respiratory Rate 18 Blood Pressure 119/60 Pulse Oximetry 93 L 93 L 09/14/18 17:00 09/14/18 18:00 09/14/18 19:00 Temperature Pulse Rate 64 63 65 Respiratory Rate Blood Pressure Pulse Oximetry 09/14/18 19:29 09/14/18 20:00 09/14/18 21:00 Temperature 98.8 F Pulse Rate 60 60 59 L Respiratory Rate 17 Blood Pressure 121/64 Pulse Oximetry 98 98 09/14/18 21:54 09/14/18 22:00 09/14/18 23:00 Temperature Pulse Rate 55 L 56 L Respiratory Rate Blood Pressure Pulse Oximetry 97 09/15/18 00:00 09/15/18 01:00 09/15/18 02:00 Temperature 98.8 F Pulse Rate 59 L 59 L 58 L Respiratory Rate 16 Blood Pressure 105/66 Pulse Oximetry 97 09/15/18 03:00 09/15/18 04:00 09/15/18 05:00 Temperature 99 F Pulse Rate 60 61 62 Respiratory Rate 16 Blood Pressure 126/62 Pulse Oximetry 97 09/15/18 06:00 09/15/18 07:00 12/28/18 08:00 Temperature 98.9 F Pulse Rate 62 66 60 Respiratory Rate 18 Blood Pressure 120/63 Pulse Oximetry 95 09/15/18 09:00 09/15/18 10:00 09/15/18 10:40 Temperature Pulse Rate 66 64 Respiratory Rate Blood Pressure Pulse Oximetry 98 Intake & Output 09/14/18 09/15/18 09/15/18 18:59 06:59 18:59 Intake Total 924 / 924 240 / 240 Output Total 350 / 350 75 / 75 Balance 574 / 574 165 / 165 Weight 70.9 kg Intake: Oral 924 / 924 240 / 240 Output: Urine 350 / 350 75 / 75 Other: Date of Last Bowel Movement 09/14/18 09/13/18 09/14/18 # Bowel Movements 1 Narrative: GENERAL: NAD, A&Ox3 NECK: Supple, trachea midline. No JVD CARDIOVASCULAR: Regular rate and rhythm without murmurs, gallops, or rubs. Left arm AVF. Right IJ permacath RESPIRATORY: Breath sounds equal bilaterally. No accessory muscle use. GASTROINTESTINAL: Abdomen soft, non-tender, nondistended. +BS MUSCULOSKELETAL: No cyanosis, or edema. SKIN: Warm and dry. Results - Labs CBC & Chem 7: 09/15/18 05:29 09/15/18 05:29 Laboratory Results - last 24 hr 09/13/18 09/15/18 09/15/18 11:04 05:29 05:29 WBC 8.2 RBC 2.54 L Hgb 7.4 L Hct 22.7 L MCV 89.3 MCH 29.3 MCHC 32.8 RDW 18.6 H Plt Count 136 L MPV 7.7 Sodium 139 Potassium 3.7 Chloride 101 Carbon Dioxide 30.4 Anion Gap 8 BUN 22 H Creatinine 3.70 H Estimated GFR 17 L Random Glucose 100 Calcium 7.5 L Total Bilirubin 0.5 AST 32 ALT 12 Alkaline Phosphatase 1552 H Total Protein 5.2 L Albumin 2.0 L MTS Gel Crossmatch See Detail Assessment and Plan - Assessment (1) End stage renal disease Code(s): N18.6 - End stage renal disease Status: Chronic (2) Anemia Code(s): D64.9 - Anemia, unspecified Status: Acute (3) Joint pain Code(s): M25.50 - Pain in unspecified joint Status: Deleted (4) Dyspnea Code(s): R06.00 - Dyspnea, unspecified Status: Acute (5) Prostate cancer metastatic to bone Code(s): C61 - Malignant neoplasm of prostate; C79.51 - Secondary malignant neoplasm of bone Status: Chronic - Plan 63-year-old man with Multivessel coronary artery disease Non-ST elevation [place] Cardiothoracic has been consulted for evaluation for possible CABG. however patient states he is not interested in CABG at this time Continue with aspirin, beta fab, statin. Heparin is contraindicated in the setting of GI bleed Appreciate input from cardiology Bilateral pleural effusions, right greater than left Dyspnea * Incentive spirometer while awake * Nebs scheduled and PRN * Nicotine patch Acute hyperkalemia End stage renal disease on hemodialysis * IHD per nephrology scheduling. Suspected recurrent GI bleed, likely lower Acute on chronic normocytic anemia secondary to blood loss * GI recommendations appreciated * Transfuse for hemoglobin less than 7 EGD shows no significant source of bleed Colonoscopy revealed multiple colon polyps. Some of the polyps were removed. History of metastatic prostate CA * Continue home Flomax * Hold bicalutamide for now * Management per oncology * History of C diff colitis Lactic acidosis-resolved * continue home PO metronidazole * Patient given zosyn in ED, continue for now until blood cultures result; patient declined vancomycin * F/U blood cultures, increased risk for bacteremia as he has indwelling HD catheter Prophylaxis * SCDs only, heparin contraindicated in the setting of acute blood loss anemia * Protonix BID in the setting of GIB (2) Anemia Qualifiers: Anemia type: due to chronic kidney disease Chronic kidney disease stage: on chronic dialysis Qualified Code(s): N18.6 - End stage renal disease; D63.1 - Anemia in chronic kidney disease; Z99.2 - Dependence on renal dialysis (3) Joint pain Qualifiers: Joint pain location: hip Laterality: left Qualified Code(s): M25.552 - Pain in left hip (4) Dyspnea Qualifiers: Dyspnea type: shortness of breath Qualified Code(s): R06.02 - Shortness of breath; R06.00 - Dyspnea, unspecified; R06.01 - Orthopnea
[2018-09-15] MEDS: Heparin 10,000 UNITS/10 ML Vial (for IV use) OTHER PRN (16:06)
[2018-09-15] MEDS: Metoprolol Tartrate 25 MG Tablet PO SCH ×2 (16:59→20:18)
[2018-09-15] MEDS: Lactobacillus Acidophilus/L. Spores Tablet PO SCH ×2 (16:59→20:17)
[2018-09-15] MEDS: Senna/Docusate Sodium 8.6/50 MG Tablet PO SCH ×2 (17:00→20:17)
[2018-09-15] MEDS: amLODIPine 5 MG Tablet PO SCH (17:00)
--- NOTE | 2018-09-15 17:55 | P.PNCA ---
Subjective Interval history: No events overnight No chest pain/SOB Medications and Allergies Active Medications: Active Medications Al Hydroxide/Mg Hydroxide (Milk Of Yaritza Conde) 30 ml PO Q12H PRN PRN Reason: Mild Constipation Albuterol (Albuterol Neb (Prn)) 2.5 mg NEB Q2HR NEB PRN PRN Reason: SHORTNESS OF BREATH Amlodipine Besylate (Norvasc) 5 mg PO DAILY [facility] Last Admin: 09/15/18 17:00 Dose: Not Given Aspirin (Aspirin Chew) 81 mg PO DAILY [facility] Last Admin: 09/15/18 16:59 Dose: 81 mg Atorvastatin Calcium (Lipitor) 20 mg PO HS [facility] Last Admin: 09/14/18 21:15 Dose: 20 mg Bicalutamide (Casodex) 50 mg PO DAILY [facility] Last Admin: 09/15/18 17:00 Dose: Not Given Bisacodyl (Dulcolax Supp) 10 mg RECTAL DAILY PRN PRN Reason: SEVERE CONSITIPATION Clonidine HCl (Catapres) 0.1 mg PO UNSCH PRN PRN Reason: SEE LABEL COMMENTS Diphenhydramine HCl (Benadryl) 25 mg PO UNSCH PRN PRN Reason: SEE LABEL COMMENTS Epoetin Hermes (Epogen Inj) 10,000 unit IV.PUSH UNSCH PRN PRN Reason: SEE LABEL COMMENTS Last Admin: 09/15/18 16:06 Dose: 10,000 unit Gelatin (Gelfoam 12 Mm/7 Mm Topical) 1 foam TOPICAL PRN PRN PRN Reason: help stop bleeding from site Gentamicin Sulfate (Gentamicin Inj) 20 mg OTHER WITH DIALYSIS PRN PRN Reason: Dwell Gentamycin Lock Last Admin: 09/15/18 16:06 Dose: 20 mg Heparin Sodium (Porcine) (Heparin Inj) 8,000 units OTHER WITH DIALYSIS PRN PRN Reason: for machine prime Heparin Sodium (Porcine) (Heparin Inj) 1,000 units OTHER WITH DIALYSIS PRN PRN Reason: Dwell Heparin to Fill Catheter Last Admin: 09/15/18 16:06 Dose: 1,000 units Albumin Human (Flexbumin 25% Inj) 100 mls @ 60 mls/hr IV.SIG WITH DIALYSIS PRN PRN Reason: hypotension / volume replace Sodium Chloride (Ns Inj) 1,000 mls @ 0 mls/hr OTHER .Q0M PRN PRN Reason: for prime and rinse back Sodium Chloride (Ns Inj) 1,000 mls @ 0 mls/hr IV.CONT .Q0M PRN PRN Reason: hypotension / volume replace Sodium Chloride (Ns Inj) 1,000 mls @ 200 mls/hr OTHER .Q5H PRN PRN Reason: for dialyzer flush PRN Lactobacillus Acidophilus (Lactinex) 1 tab PO BID [facility] Last Admin: 09/15/18 16:59 Dose: 1 tab Lactulose (Lactulose Liq) 30 ml PO DAILY PRN PRN Reason: SEVERE CONSITIPATION Mannitol (Mannitol Inj) 12.5 gm IV.PUSH UNSCH PRN PRN Reason: hypotension / volume replace Metoprolol Tartrate (Lopressor) 12.5 mg PO BID [facility] Last Admin: 09/15/18 16:59 Dose: 12.5 mg Nicotine (Habitrol 7 Mg Patch.24 Hr) 1 patch T-DERMAL DAILY [facility] Last Admin: 09/15/18 15:15 Dose: Not Given Nitroglycerin (Nitrostat Sl) 0.4 mg SL Q5M PRN PRN Reason: CHEST PAIN Oxycodone/Acetaminophen (Percocet 5/325 Mg) 1 tab PO Q6H PRN PRN Reason: PAIN SCALE 1 TO 10 Last Admin: 09/15/18 05:07 Dose: 1 tab Pantoprazole Sodium (Protonix Inj) 40 mg IV.PUSH Q12H [facility] Last Admin: 09/15/18 16:59 Dose: 40 mg Patch Removal (Remove Old Patch) 1 each T-DERMAL DAILY [facility] Last Admin: 09/15/18 15:14 Dose: Not Given Senna/Docusate Sodium (Negin-Colace) 1 tab PO BID [facility] Last Admin: 09/15/18 17:00 Dose: Not Given Sennosides (Senokot) 17.2 mg PO Q12H PRN PRN Reason: Moderate Constipation Sodium Chloride (Ns Flush) 2 ml IV.FLUSH PRN PRN PRN Reason: FLUSH AFTER USING IV ACCESS Last Admin: 09/06/18 08:37 Dose: 2 ml Sodium Chloride (Ns Flush) 2 ml IV.FLUSH BID [facility] Last Admin: 09/15/18 15:14 Dose: 2 ml Sodium Chloride (Ns Flush) 5 ml IV.FLUSH PRN PRN PRN Reason: flush each lumen during HD Tamsulosin HCl (Flomax) 0.4 mg PO DAILY [facility] Last Admin: 09/15/18 16:59 Dose: 0.4 mg Allergies Allergy/AdvReac Type Severity Reaction Status Date / Time Tetanus Vaccines and Toxoid Allergy Severe Fever Verified 08/13/18 15:46 amoxicillin AdvReac Mild Nausea/Vomi Verified 08/13/18 15:46 ting Home Medications Medication Instructions Recorded Confirmed Type bicalutamide 50 mg PO HS 07/09/18 09/03/18 History tamsulosin [Flomax] 0.4 mg PO DAILY 07/09/18 09/03/18 History Physical Exam Vital signs: Vital Signs 09/14/18 18:00 09/14/18 19:00 09/14/18 19:29 Temperature 98.8 F Pulse Rate 63 65 60 Respiratory Rate 17 Blood Pressure 121/64 Pulse Oximetry 98 09/14/18 20:00 09/14/18 21:00 09/14/18 21:54 Temperature Pulse Rate 60 59 L Respiratory Rate Blood Pressure Pulse Oximetry 98 97 09/14/18 22:00 09/14/18 23:00 09/15/18 00:00 Temperature 98.8 F Pulse Rate 55 L 56 L 59 L Respiratory Rate 16 Blood Pressure 105/66 Pulse Oximetry 97 09/15/18 01:00 09/15/18 02:00 09/15/18 03:00 Temperature Pulse Rate 59 L 58 L 60 Respiratory Rate Blood Pressure Pulse Oximetry 09/15/18 04:00 09/15/18 05:00 09/15/18 06:00 Temperature 99 F Pulse Rate 61 62 62 Respiratory Rate 16 Blood Pressure 126/62 Pulse Oximetry 97 09/15/18 07:00 09/15/18 08:00 09/15/18 09:00 Temperature 98.9 F Pulse Rate 66 60 66 Respiratory Rate 18 Blood Pressure 120/63 Pulse Oximetry 95 09/15/18 10:00 09/15/18 10:40 09/15/18 11:00 Temperature Pulse Rate 64 54 L Respiratory Rate Blood Pressure Pulse Oximetry 98 09/15/18 12:00 09/15/18 13:00 09/15/18 15:00 Temperature 98.7 F Pulse Rate 62 62 71 Respiratory Rate 18 Blood Pressure 106/56 L Pulse Oximetry 97 09/15/18 16:00 Temperature 98.8 F Pulse Rate 87 Respiratory Rate 18 Blood Pressure 137/69 Pulse Oximetry 93 L Intake & Output 09/14/18 09/15/18 09/15/18 18:59 06:59 18:59 Intake Total 924 / 924 240 / 240 Output Total 350 / 350 75 / 75 1500 / 1500 Balance 574 / 574 165 / 165 -1500 / -1500 Weight 70.9 kg Intake: Oral 924 / 924 240 / 240 Output: Urine 350 / 350 75 / 75 Hemodialysis Amount 1500 / 1500 Other: Date of Last Bowel Movement 09/14/18 09/13/18 09/14/18 # Bowel Movements 1 Narrative: GENERAL: NAD, A&Ox3 NECK: Supple, trachea midline. No JVD CARDIOVASCULAR: Regular rate and rhythm without murmurs, gallops, or rubs. Left arm AVF. Right IJ permacath RESPIRATORY: Breath sounds equal bilaterally. No accessory muscle use. GASTROINTESTINAL: Abdomen soft, non-tender, nondistended. +BS MUSCULOSKELETAL: No cyanosis, or edema. SKIN: Warm and dry. Results 09/15/18 05:29 09/15/18 05:29 Cardiac Enzymes 09/14/18 09/15/18 Range/Units 05:41 05:29 AST 42 H 32 (15-37) U/L CBC 09/14/18 09/15/18 Range/Units 05:41 05:29 WBC 7.9 8.2 (4.0-11.0) th/mm3 RBC 2.60 L 2.54 L (4.50-5.90) mil/mm3 Hgb 7.7 L 7.4 L (13.0-17.0) gm/dL Hct 22.8 L 22.7 L (39.0-51.0) % Plt Count 120 L 136 L (150-450) th/mm3 Comprehensive Metabolic Panel 09/14/18 09/15/18 Range/Units 05:41 05:29 Sodium 140 139 (136-145) meq/L Potassium 3.6 3.7 (3.5-5.1) meq/L Chloride 101 101 (98-107) meq/L Carbon Dioxide 29.2 30.4 (21.0-32.0) meq/L BUN 16 22 H (7-18) mg/dL Creatinine 2.82 H 3.70 H (0.60-1.30) mg/dL Calcium 7.6 L 7.5 L (8.5-10.1) mg/dL AST 42 H 32 (15-37) U/L ALT 14 12 (12-78) U/L Alkaline Phosphatase 1489 H 1552 H (45-117) U/L Total Protein 5.3 L 5.2 L (6.4-8.2) g/dL Albumin 2.0 L 2.0 L (3.4-5.0) g/dL Intake and Output 09/15/18 09/15/18 09/15/18 06:59 14:59 22:59 Intake Total 240 / 240 Output Total 75 / 75 1500 / 1500 Balance 165 / 165 -1500 / -1500 Intake: Oral 240 / 240 Output: Urine 75 / 75 Hemodialysis Amount 1500 / 1500 Other: Date of Last Bowel Movement 09/13/18 09/14/18 09/14/18 Weight 70.9 kg Assessment and Plan - Assessment (1) Elevated troponin Code(s): R74.8 - Abnormal levels of other serum enzymes Status: Acute Plan: as detailed in my note yesterday, likely has underlying cad though unclear if truly nstemi vs symptomatic anemia (2) GI (gastrointestinal bleed) Code(s): K92.2 - Gastrointestinal hemorrhage, unspecified Status: Acute Plan: ok for colonoscopy/egd (noting somewhat higher risk due to potential cardiac ischemia); cath would likely require anticoagulation so need to make sure no active bleeding prior. (3) Anemia Code(s): D64.9 - Anemia, unspecified Status: Acute (4) NSTEMI (non-ST elevated myocardial infarction) Code(s): I21.4 - Non-ST elevation (NSTEMI) myocardial infarction Status: Acute Plan: for now asa held due to gi bleed; statin held due to elevated LFTs; added bb. (5) End stage renal disease Code(s): N18.6 - End stage renal disease Status: Chronic - Plan 1) Significant anemia EGD negative for bleeding source Cscope showing multiple polyps 2) NSTEMI Multivessel CAD Appreciate Oncology assistance Patient not a great candidate for CABG Discussed consideration of coronary stenting for palliative relief to decrease risk of overall angina, GA and CHF He would like to "avoid all procedures" and continue on medical management Overall high risk for stenting as well with significant comorbidities and anemia He wants to see what Oncology has to offer as far as his prostate cancer, get stronger and consider stents in the future Discussed with palliative care We will continue medical management per his wishes Will con't Norvasc/BB for anti-anginal purposes, statin therapy, and ASA 3) Metastatic prostate cancer 4) No further cardiovascular work up at this time If concerns over the weekend, Dr. Ramriez will see PRN (3) Anemia Qualifiers: Anemia type: due to chronic kidney disease Chronic kidney disease stage: on chronic dialysis Qualified Code(s): N18.6 - End stage renal disease; D63.1 - Anemia in chronic kidney disease; Z99.2 - Dependence on renal dialysis
--- NOTE | 2018-09-15 20:56 | P.PNNP ---
Subjective Interval history: Patient seen in AM, not eating well, no SOB. Physical Exam Vital signs: Vital Signs 09/14/18 21:00 09/14/18 21:54 09/14/18 22:00 Temperature Pulse Rate 59 L 55 L Respiratory Rate Blood Pressure Pulse Oximetry 97 09/14/18 23:00 09/15/18 00:00 09/15/18 01:00 Temperature 98.8 F Pulse Rate 56 L 59 L 59 L Respiratory Rate 16 Blood Pressure 105/66 Pulse Oximetry 97 09/15/18 02:00 09/15/18 03:00 09/15/18 04:00 Temperature 99 F Pulse Rate 58 L 60 61 Respiratory Rate 16 Blood Pressure 126/62 Pulse Oximetry 97 09/15/18 05:00 09/15/18 06:00 09/15/18 07:00 Temperature Pulse Rate 62 62 66 Respiratory Rate Blood Pressure Pulse Oximetry 09/15/18 08:00 09/15/18 09:00 09/15/18 10:00 Temperature 98.9 F Pulse Rate 60 66 64 Respiratory Rate 18 Blood Pressure 120/63 Pulse Oximetry 95 09/15/18 10:40 09/15/18 11:00 09/15/18 12:00 Temperature 98.7 F Pulse Rate 54 L 62 Respiratory Rate 18 Blood Pressure 106/56 L Pulse Oximetry 98 97 09/15/18 13:00 09/15/18 15:00 09/15/18 16:00 Temperature 98.8 F Pulse Rate 62 71 66 Respiratory Rate 18 Blood Pressure 137/69 Pulse Oximetry 93 L 09/15/18 17:00 09/15/18 18:00 Temperature Pulse Rate 76 57 L Respiratory Rate Blood Pressure Pulse Oximetry Intake & Output 09/15/18 09/15/18 09/16/18 06:59 18:59 06:59 Intake Total 240 / 240 720 / 720 Output Total 75 / 75 1775 / 1775 Balance 165 / 165 -1055 / -1055 Weight 70.9 kg Intake: Oral 240 / 240 720 / 720 Output: Urine 75 / 75 275 / 275 Hemodialysis Amount 1500 / 1500 Other: # Voids 2 Date of Last Bowel Movement 09/13/18 09/14/18 Narrative: GENERAL: NAD, A&Ox3 NECK: Supple, trachea midline. No JVD CARDIOVASCULAR: Regular rate and rhythm without murmurs, gallops, or rubs. Left arm AVF. Right IJ permacath RESPIRATORY: Breath sounds equal bilaterally. No accessory muscle use. GASTROINTESTINAL: Abdomen soft, non-tender, nondistended. +BS MUSCULOSKELETAL: No cyanosis, or edema. SKIN: Warm and dry. Assessment and Plan - Assessment (1) End stage renal disease Code(s): N18.6 - End stage renal disease Status: Chronic (2) Anemia Code(s): D64.9 - Anemia, unspecified Status: Acute Qualifiers: Anemia type: due to chronic kidney disease Chronic kidney disease stage: on chronic dialysis Qualified Code(s): N18.6 - End stage renal disease; D63.1 - Anemia in chronic kidney disease; Z99.2 - Dependence on renal dialysis (3) Dyspnea Code(s): R06.00 - Dyspnea, unspecified Status: Acute Qualifiers: Dyspnea type: shortness of breath Qualified Code(s): R06.02 - Shortness of breath; R06.00 - Dyspnea, unspecified; R06.01 - Orthopnea (4) Prostate cancer metastatic to bone Code(s): C61 - Malignant neoplasm of prostate; C79.51 - Secondary malignant neoplasm of bone Status: Chronic - Plan HD MWF Has current right IJ catheter Left upper arm AVF with recent infiltration, pulsatile with possible outflow vein stenosis vs infiltration swelling. Allow AVF to rest, may re-evaluate as an outpatient. Post colonoscopy Tuesday - multiple polyps, larger polyps removed Hgb. is low but stable, transfuse as needed On Epogen with dialysis Following with cardiology - post Cardiac [facility]. Cardiology follow up noted. metastatic prostate cancer. Hgb. is low, on Epogen and transfuse if Hgb is below 7.0. Has multi vessel disease, but not a good candidate for CABG. Palliative care following. HD will be today, remove fluid as tolerated. .
[2018-09-16] MEDS: Pantoprazole Inj 40 MG Vial IV.PUSH SCH ×2 (01:18→14:53)
[2018-09-16] MEDS: amLODIPine 5 MG Tablet PO SCH (09:34)
[2018-09-16] MEDS: Metoprolol Tartrate 25 MG Tablet PO SCH ×2 (09:35→20:39)
[2018-09-16] MEDS: Lactobacillus Acidophilus/L. Spores Tablet PO SCH ×2 (09:35→20:38)
[2018-09-16] MEDS: Senna/Docusate Sodium 8.6/50 MG Tablet PO SCH ×2 (09:37→20:28)
--- NOTE | 2018-09-16 10:59 | P.PN ---
Subjective Interval history: Follow-up non-ST elevation ID/metastases prostate cancer/and now multi-vessel coronary disease September 12, 2018-patient seen and examined, has no chest pain or shortness of breath. Patient is unsure if he wants to go for any surgical intervention i.e. CABG September 13, 2018-patient seen and examined, has no chest pain, dizziness or shortness of breath. Afebrile. Plan for hemodialysis today September 14, 2018-patient seen and examined, weak but denies any chest pain or shortness of breath. Again states he is not interested in CABG September 15, 2018-patient seen and examined, stable and no complaint. Awaiting for hemodialysis today. he Believes that his diagnosis of prostate cancer will improve prior to considering CABG September 16, 2018-patient seen and examined, he had hemodialysis yesterday. Remained stable today Physical Exam Vital signs: Vital Signs 09/15/18 11:00 09/15/18 12:00 09/15/18 13:00 Temperature 98.7 F Pulse Rate 54 L 62 62 Respiratory Rate 18 Blood Pressure 106/56 L Pulse Oximetry 97 09/15/18 15:00 09/15/18 16:00 09/15/18 17:00 Temperature 98.8 F Pulse Rate 71 66 76 Respiratory Rate 18 Blood Pressure 137/69 Pulse Oximetry 93 L 09/15/18 18:00 09/15/18 19:00 09/15/18 20:00 Temperature 98.4 F Pulse Rate 57 L 64 65 Respiratory Rate 19 Blood Pressure 115/62 Pulse Oximetry 94 L 09/15/18 21:00 09/15/18 21:47 09/15/18 22:00 Temperature Pulse Rate 56 L 54 L Respiratory Rate 19 Blood Pressure Pulse Oximetry 09/15/18 23:00 09/16/18 00:00 09/16/18 01:00 Temperature 98.7 F Pulse Rate 55 L 55 L 57 L Respiratory Rate 16 Blood Pressure 110/58 L Pulse Oximetry 97 09/16/18 02:00 09/16/18 03:00 09/16/18 04:00 Temperature 99.1 F Pulse Rate 61 80 60 Respiratory Rate 18 Blood Pressure 122/51 L Pulse Oximetry 97 09/16/18 05:00 09/16/18 06:00 09/16/18 09:21 Temperature Pulse Rate 57 L 59 L Respiratory Rate Blood Pressure Pulse Oximetry 100 09/16/18 10:02 Temperature Pulse Rate Respiratory Rate 16 Blood Pressure Pulse Oximetry Intake & Output 09/15/18 09/16/18 09/16/18 18:59 06:59 18:59 Intake Total 720 / 720 480 / 480 Output Total 1775 / 1775 100 / 100 Balance -1055 / -1055 380 / 380 Weight 69.5 kg Intake: Oral 720 / 720 480 / 480 Output: Urine 275 / 275 100 / 100 Hemodialysis Amount 1500 / 1500 Other: # Voids 2 Date of Last Bowel Movement 09/14/18 09/13/18 Narrative: GENERAL: NAD, A&Ox3 NECK: Supple, trachea midline. No JVD CARDIOVASCULAR: Regular rate and rhythm without murmurs, gallops, or rubs. Left arm AVF. Right IJ permacath RESPIRATORY: Breath sounds equal bilaterally. No accessory muscle use. GASTROINTESTINAL: Abdomen soft, non-tender, nondistended. +BS MUSCULOSKELETAL: No cyanosis, or edema. SKIN: Warm and dry. Results - Labs CBC & Chem 7: 09/15/18 05:29 09/15/18 05:29 Laboratory Results - last 24 hr 09/15/18 16:06 POC Glucose 106 Assessment and Plan - Assessment (1) End stage renal disease Code(s): N18.6 - End stage renal disease Status: Chronic (2) Anemia Code(s): D64.9 - Anemia, unspecified Status: Acute (3) Joint pain Code(s): M25.50 - Pain in unspecified joint Status: Deleted (4) Dyspnea Code(s): R06.00 - Dyspnea, unspecified Status: Acute (5) Prostate cancer metastatic to bone Code(s): C61 - Malignant neoplasm of prostate; C79.51 - Secondary malignant neoplasm of bone Status: Chronic - Plan 63-year-old man with Multivessel coronary artery disease Non-ST elevation ID Cardiothoracic has been consulted for evaluation for possible CABG. however patient states he is not interested in CABG at this time Continue with aspirin, beta fab, statin. Heparin is contraindicated in the setting of GI bleed Appreciate input from cardiology Bilateral pleural effusions, right greater than left Dyspnea * Incentive spirometer while awake * Nebs scheduled and PRN * Nicotine patch Acute hyperkalemia End stage renal disease on hemodialysis * IHD per nephrology scheduling. Suspected recurrent GI bleed, likely lower Acute on chronic normocytic anemia secondary to blood loss * GI recommendations appreciated * Transfuse for hemoglobin less than 7 EGD shows no significant source of bleed Colonoscopy revealed multiple colon polyps. Some of the polyps were removed. History of metastatic prostate CA * Continue home Flomax * Continue bicalutamide * Management per oncology * History of C diff colitis Lactic acidosis-resolved * continue home PO metronidazole * Patient given zosyn in ED, continue for now until blood cultures result; patient declined vancomycin * F/U blood cultures, increased risk for bacteremia as he has indwelling HD catheter Prophylaxis * SCDs only, heparin contraindicated in the setting of acute blood loss anemia * Protonix BID in the setting of GIB (2) Anemia Qualifiers: Anemia type: due to chronic kidney disease Chronic kidney disease stage: on chronic dialysis Qualified Code(s): N18.6 - End stage renal disease; D63.1 - Anemia in chronic kidney disease; Z99.2 - Dependence on renal dialysis (3) Joint pain Qualifiers: Joint pain location: hip Laterality: left Qualified Code(s): M25.552 - Pain in left hip (4) Dyspnea Qualifiers: Dyspnea type: shortness of breath Qualified Code(s): R06.02 - Shortness of breath; R06.00 - Dyspnea, unspecified; R06.01 - Orthopnea
--- NOTE | 2018-09-16 20:49 | P.PNNP ---
Subjective Interval history: Patient seen in AM, no SOB, has generalized weakness and want to get PT. Physical Exam Vital signs: Vital Signs 09/15/18 21:00 09/15/18 21:47 09/15/18 22:00 Temperature Pulse Rate 56 L 54 L Respiratory Rate 19 Blood Pressure Pulse Oximetry 09/15/18 23:00 09/16/18 00:00 09/16/18 01:00 Temperature 98.7 F Pulse Rate 55 L 55 L 57 L Respiratory Rate 16 Blood Pressure 110/58 L Pulse Oximetry 97 09/16/18 02:00 09/16/18 03:00 09/16/18 04:00 Temperature 99.1 F Pulse Rate 61 80 60 Respiratory Rate 18 Blood Pressure 122/51 L Pulse Oximetry 97 09/16/18 05:00 09/16/18 06:00 09/16/18 08:00 Temperature 98.7 F Pulse Rate 57 L 59 L 65 Respiratory Rate 16 Blood Pressure 98/46 L Pulse Oximetry 96 09/16/18 09:21 09/16/18 10:02 09/16/18 12:00 Temperature 99.3 F Pulse Rate 55 L Respiratory Rate 16 16 Blood Pressure 104/53 L Pulse Oximetry 100 97 09/16/18 14:57 09/16/18 16:00 09/16/18 19:27 Temperature 99 F 99 F 98.8 F Pulse Rate 57 L 57 L 69 Respiratory Rate 18 18 16 Blood Pressure 114/56 L 119/59 L 117/60 Pulse Oximetry 97 97 95 Intake & Output 09/16/18 09/16/18 09/17/18 06:59 18:59 06:59 Intake Total 480 / 480 960 / 960 Output Total 100 / 100 Balance 380 / 380 960 / 960 Weight 69.5 kg Intake: Oral 480 / 480 960 / 960 Output: Urine 100 / 100 Other: Date of Last Bowel Movement 09/13/18 09/13/18 Narrative: GENERAL: NAD, A&Ox3 NECK: Supple, trachea midline. No JVD CARDIOVASCULAR: Regular rate and rhythm without murmurs, gallops, or rubs. Left arm AVF. Right IJ permacath RESPIRATORY: Breath sounds equal bilaterally. No accessory muscle use. GASTROINTESTINAL: Abdomen soft, non-tender, nondistended. +BS MUSCULOSKELETAL: No cyanosis, or edema. SKIN: Warm and dry. Assessment and Plan - Assessment (1) End stage renal disease Code(s): N18.6 - End stage renal disease Status: Chronic (2) Anemia Code(s): D64.9 - Anemia, unspecified Status: Acute Qualifiers: Anemia type: due to chronic kidney disease Chronic kidney disease stage: on chronic dialysis Qualified Code(s): N18.6 - End stage renal disease; D63.1 - Anemia in chronic kidney disease; Z99.2 - Dependence on renal dialysis (3) Dyspnea Code(s): R06.00 - Dyspnea, unspecified Status: Acute Qualifiers: Dyspnea type: shortness of breath Qualified Code(s): R06.02 - Shortness of breath; R06.00 - Dyspnea, unspecified; R06.01 - Orthopnea (4) Prostate cancer metastatic to bone Code(s): C61 - Malignant neoplasm of prostate; C79.51 - Secondary malignant neoplasm of bone Status: Chronic - Plan HD MWF Has current right IJ catheter Left upper arm AVF with recent infiltration, pulsatile with possible outflow vein stenosis vs infiltration swelling. Allow AVF to rest, may re-evaluate as an outpatient. Post colonoscopy Tuesday - multiple polyps, larger polyps removed Hgb. is low but stable, transfuse as needed On Epogen with dialysis Following with cardiology - post Cardiac [facility]. Cardiology follow up noted. metastatic prostate cancer. Hgb. is low, on Epogen and transfuse if Hgb is below 7.0. Has multi vessel disease, but not a good candidate for CABG. Palliative care following. Continue HD 3 times a week, possibly to go to Rehab. .
[2018-09-17] MEDS: Pantoprazole Inj 40 MG Vial IV.PUSH SCH ×2 (04:55→13:13)
[2018-09-17 05:06] LABS: Baso # (Auto) 0.1 th/mm3 (0.0-0.2); Baso % (Auto) 0.9 % (0.0-2.0); Eos % (Auto) 0.3 % (0.0-4.0); Lymph # (Auto) 2.6 th/mm3 (1.0-4.8); Lymph % (Auto) 29.6 % (9.0-44.0); Mean Corpuscular HGB Conc 33.8 % (32.0-36.0); Mean Corpuscular Hemoglobin 29.6 pg (27.0-34.0); Mean Corpuscular Volume 87.7 fL (80.0-100.0); Mean Platelet Volume 7.6 fL (7.0-11.0); Mono # (Auto) 0.5 th/mm3 (0.0-0.9); Mono % (Auto) 5.9 % (0.0-8.0); Neut # (Auto) 5.5 th/mm3 (1.8-7.7); Neut % (Auto) 63.3 % (16.0-70.0); Platelet Count 154 th/mm3 (150-450); Red Blood Count 2.33 mil/mm3 (4.50-5.90); Red Cell Distribution Width 18.5 % (11.6-17.2); White Blood Count 8.8 th/mm3 (4.0-11.0)
[2018-09-17 05:16] LABS: Hemoglobin 6.9 gm/dL (13.0-17.0)
[2018-09-17 05:17] LABS: Hematocrit 20.5 % (39.0-51.0)
[2018-09-17 05:50] LABS: Calcium 7.4 mg/dL (8.5-10.1); Carbon Dioxide 29.3 meq/L (21.0-32.0); Total Protein 5.4 g/dL (6.4-8.2)
[2018-09-17] MEDS ORDERED: Acetaminophen 325 MG Tablet PO PRN (06:04)
[2018-09-17] MEDS ORDERED: Sodium Chlor 0.9% Inj 250 ML IV.SIG SCH (07:00)
[2018-09-17] MEDS: amLODIPine 5 MG Tablet PO SCH (08:02)
[2018-09-17] MEDS: Lactobacillus Acidophilus/L. Spores Tablet PO SCH ×2 (08:02→20:30)
[2018-09-17] MEDS: Metoprolol Tartrate 25 MG Tablet PO SCH ×2 (08:04→20:30)
[2018-09-17] MEDS: Senna/Docusate Sodium 8.6/50 MG Tablet PO SCH (08:04)
--- NOTE | 2018-09-17 09:39 | P.PNNP ---
Subjective Interval history: Patient seen during HD, no SOB, no complaint. Physical Exam Vital signs: Vital Signs 09/16/18 10:02 09/16/18 12:00 09/16/18 14:57 Temperature 99.3 F 99 F Pulse Rate 55 L 57 L Respiratory Rate 16 16 18 Blood Pressure 104/53 L 114/56 L Pulse Oximetry 97 97 09/16/18 16:00 09/16/18 19:12 09/16/18 19:27 Temperature 99 F 98.8 F Pulse Rate 57 L 67 69 Respiratory Rate 18 16 Blood Pressure 119/59 L 117/60 Pulse Oximetry 97 95 09/16/18 22:49 09/16/18 23:42 09/17/18 00:03 Temperature 98.6 F Pulse Rate 67 67 Respiratory Rate 16 18 Blood Pressure 123/63 Pulse Oximetry 98 09/17/18 04:02 09/17/18 04:51 Temperature 99 F Pulse Rate 66 69 Respiratory Rate 18 Blood Pressure 134/64 Pulse Oximetry 97 Intake & Output 09/16/18 09/17/18 09/17/18 18:59 06:59 18:59 Intake Total 960 / 960 240 / 240 Output Total 140 / 140 Balance 960 / 960 100 / 100 Intake: Oral 960 / 960 240 / 240 Output: Urine 140 / 140 Other: Date of Last Bowel Movement 09/13/18 09/13/18 Narrative: GENERAL: NAD, A&Ox3 NECK: Supple, trachea midline. No JVD CARDIOVASCULAR: Regular rate and rhythm without murmurs, gallops, or rubs. Left arm AVF. Right IJ permacath RESPIRATORY: Breath sounds equal bilaterally. No accessory muscle use. GASTROINTESTINAL: Abdomen soft, non-tender, nondistended. +BS MUSCULOSKELETAL: No cyanosis, or edema. SKIN: Warm and dry. Assessment and Plan - Assessment (1) End stage renal disease Code(s): N18.6 - End stage renal disease Status: Chronic (2) Anemia Code(s): D64.9 - Anemia, unspecified Status: Acute Qualifiers: Anemia type: due to chronic kidney disease Chronic kidney disease stage: on chronic dialysis Qualified Code(s): N18.6 - End stage renal disease; D63.1 - Anemia in chronic kidney disease; Z99.2 - Dependence on renal dialysis (3) Dyspnea Code(s): R06.00 - Dyspnea, unspecified Status: Acute Qualifiers: Dyspnea type: shortness of breath Qualified Code(s): R06.02 - Shortness of breath; R06.00 - Dyspnea, unspecified; R06.01 - Orthopnea (4) Prostate cancer metastatic to bone Code(s): C61 - Malignant neoplasm of prostate; C79.51 - Secondary malignant neoplasm of bone Status: Chronic - Plan HD MWF Has current right IJ catheter Left upper arm AVF with recent infiltration, pulsatile with possible outflow vein stenosis vs infiltration swelling. Allow AVF to rest, may re-evaluate as an outpatient. Post colonoscopy Tuesday - multiple polyps, larger polyps removed Hgb. is low but stable, transfuse as needed On Epogen with dialysis Following with cardiology - post Cardiac [facility]. Cardiology follow up noted. metastatic prostate cancer. Hgb. is low, on Epogen and transfuse if Hgb is below 7.0. Has multi vessel disease, but not a good candidate for CABG. Palliative care following. HD now, remove fluid as tolerated.
--- NOTE | 2018-09-17 11:18 | P.PN ---
Subjective Interval history: Follow-up non-ST elevation [place]/metastases prostate cancer/and now multi-vessel coronary disease September 17, 2018-patient seen and examined, he is having HD. Per nurse report patient is refusing blood transfusion Physical Exam Vital signs: Vital Signs 09/16/18 12:00 09/16/18 14:57 09/16/18 16:00 Temperature 99.3 F 99 F 99 F Pulse Rate 55 L 57 L 57 L Respiratory Rate 16 18 18 Blood Pressure 104/53 L 114/56 L 119/59 L Pulse Oximetry 97 97 97 09/16/18 19:12 09/16/18 19:27 09/16/18 22:49 Temperature 98.8 F Pulse Rate 67 69 Respiratory Rate 16 16 Blood Pressure 117/60 Pulse Oximetry 95 09/16/18 23:42 09/17/18 00:03 09/17/18 04:02 Temperature 98.6 F Pulse Rate 67 67 66 Respiratory Rate 18 Blood Pressure 123/63 Pulse Oximetry 98 09/17/18 04:51 Temperature 99 F Pulse Rate 69 Respiratory Rate 18 Blood Pressure 134/64 Pulse Oximetry 97 Intake & Output 09/16/18 09/17/18 09/17/18 18:59 06:59 18:59 Intake Total 960 / 960 240 / 240 Output Total 140 / 140 Balance 960 / 960 100 / 100 Intake: Oral 960 / 960 240 / 240 Output: Urine 140 / 140 Other: Date of Last Bowel Movement 09/13/18 09/13/18 Narrative: GENERAL: NAD, A&Ox3 NECK: Supple, trachea midline. No JVD CARDIOVASCULAR: Regular rate and rhythm without murmurs, gallops, or rubs. Left arm AVF. Right IJ permacath RESPIRATORY: Breath sounds equal bilaterally. No accessory muscle use. GASTROINTESTINAL: Abdomen soft, non-tender, nondistended. +BS MUSCULOSKELETAL: No cyanosis, or edema. SKIN: Warm and dry. Results - Labs CBC & Chem 7: 09/17/18 04:45 09/17/18 04:48 Laboratory Results - last 24 hr 09/17/18 09/17/18 09/17/18 04:45 04:48 07:15 WBC 8.8 RBC 2.33 L Hgb 6.9 L* Hct 20.5 L* MCV 87.7 MCH 29.6 MCHC 33.8 RDW 18.5 H Plt Count 154 MPV 7.6 Prelim Diff (Auto) Slide review pending Neut % (Auto) 63.3 Lymph % (Auto) 29.6 Stewart % (Auto) 5.9 Eos % (Auto) 0.3 Baso % (Auto) 0.9 Neut # (Auto) 5.5 Lymph # (Auto) 2.6 Stewart # (Auto) 0.5 Eos # (Auto) 0.0 Baso # (Auto) 0.1 WBC Differential . Diff Scan Auto diff confirmed Differential Comment . Sodium 139 Potassium 4.0 Chloride 100 Carbon Dioxide 29.3 Anion Gap 10 BUN 19 H Creatinine 3.60 H Estimated GFR 17 L Random Glucose 110 H Calcium 7.4 L* Calcium Adj for Albumin 9.0 Total Bilirubin 0.5 AST 25 ALT 12 Alkaline Phosphatase 1591 H Total Protein 5.4 L Albumin 2.0 L Blood Type O Negative Antibody Screen Negative MTS Gel Crossmatch See Detail Assessment and Plan - Assessment (1) End stage renal disease Code(s): N18.6 - End stage renal disease Status: Chronic (2) Anemia Code(s): D64.9 - Anemia, unspecified Status: Acute (3) Joint pain Code(s): M25.50 - Pain in unspecified joint Status: Deleted (4) Dyspnea Code(s): R06.00 - Dyspnea, unspecified Status: Acute (5) Prostate cancer metastatic to bone Code(s): C61 - Malignant neoplasm of prostate; C79.51 - Secondary malignant neoplasm of bone Status: Chronic - Plan 63-year-old man with Multivessel coronary artery disease Non-ST elevation [place] Cardiothoracic has been consulted for evaluation for possible CABG. however patient states he is not interested in CABG at this time Continue with aspirin, beta fab, statin. Heparin is contraindicated in the setting of GI bleed Appreciate input from cardiology Bilateral pleural effusions, right greater than left Dyspnea-Resolved * Incentive spirometer while awake * Nebs scheduled and PRN * Nicotine patch Acute hyperkalemia End stage renal disease on hemodialysis * IHD per nephrology scheduling. Suspected recurrent GI bleed, likely lower Acute on chronic normocytic anemia secondary to blood loss * GI recommendations appreciated * Transfuse for hemoglobin less than 7-patient is currently refusing blood transfusion as of September 17, 2018 EGD shows no significant source of bleed Colonoscopy revealed multiple colon polyps. Some of the polyps were removed. History of metastatic prostate CA * Continue home Flomax * Continue bicalutamide * Management per oncology * History of C diff colitis Lactic acidosis-resolved * Completed therapy with PO metronidazole * Patient given zosyn in ED, continue for now until blood cultures result; patient perviously declined vancomycin * F/U blood cultures, increased risk for bacteremia as he has indwelling HD catheter Prophylaxis * SCDs only, heparin contraindicated in the setting of acute blood loss anemia * Protonix BID in the setting of GIB (2) Anemia Qualifiers: Anemia type: due to chronic kidney disease Chronic kidney disease stage: on chronic dialysis Qualified Code(s): N18.6 - End stage renal disease; D63.1 - Anemia in chronic kidney disease; Z99.2 - Dependence on renal dialysis (3) Joint pain Qualifiers: Joint pain location: hip Laterality: left Qualified Code(s): M25.552 - Pain in left hip (4) Dyspnea Qualifiers: Dyspnea type: shortness of breath Qualified Code(s): R06.02 - Shortness of breath; R06.00 - Dyspnea, unspecified; R06.01 - Orthopnea
[2018-09-17] MEDS: Heparin 10,000 UNITS/10 ML Vial (for IV use) OTHER PRN (12:10)
[2018-09-18] MEDS: Pantoprazole Inj 40 MG Vial IV.PUSH SCH ×2 (03:43→15:26)
[2018-09-18 08:47] LABS: Baso # (Auto) 0.1 th/mm3 (0.0-0.2); Baso % (Auto) 0.7 % (0.0-2.0); Eos % (Auto) 0.3 % (0.0-4.0); Lymph # (Auto) 2.4 th/mm3 (1.0-4.8); Lymph % (Auto) 30.9 % (9.0-44.0); Mean Corpuscular HGB Conc 33.2 % (32.0-36.0); Mean Corpuscular Hemoglobin 29.9 pg (27.0-34.0); Mean Platelet Volume 7.8 fL (7.0-11.0); Mono # (Auto) 0.5 th/mm3 (0.0-0.9); Mono % (Auto) 6.4 % (0.0-8.0); Neut # (Auto) 4.9 th/mm3 (1.8-7.7); Neut % (Auto) 61.7 % (16.0-70.0); Platelet Count 160 th/mm3 (150-450); Red Blood Count 2.31 mil/mm3 (4.50-5.90); Red Cell Distribution Width 17.8 % (11.6-17.2); White Blood Count 7.9 th/mm3 (4.0-11.0)
[2018-09-18 08:56] LABS: Hematocrit 20.8 % (39.0-51.0); Hemoglobin 6.9 gm/dL (13.0-17.0)
[2018-09-18 09:07] LABS: Anion Gap 10 meq/L (5-15); Aspartate Aminotransferase 27 U/L (15-37); Blood Urea Nitrogen 14 mg/dL (7-18); Calcium 7.9 mg/dL (8.5-10.1); Carbon Dioxide 29.8 meq/L (21.0-32.0); Chloride 101 meq/L (98-107); Glomerular Filtration Rate 24 mL/min (>89); Glucose,Random 91 mg/dL (74-106); Potassium 3.6 meq/L (3.5-5.1); Sodium 141 meq/L (136-145)
[2018-09-18 09:23] LABS: Alanine Aminotransferase 10 U/L (12-78); Alkaline Phosphatase 1536 U/L (45-117); Total Protein 5.3 g/dL (6.4-8.2)
[2018-09-18] MEDS: Metoprolol Tartrate 25 MG Tablet PO SCH ×2 (10:22→21:39)
[2018-09-18] MEDS: amLODIPine 5 MG Tablet PO SCH (10:22)
[2018-09-18] MEDS: Lactobacillus Acidophilus/L. Spores Tablet PO SCH ×2 (10:23→21:39)
--- NOTE | 2018-09-18 13:44 | P.PNIM ---
Subjective Interval history: patient reports poor appetite. no dizziness, lightheadedness or shortness of breath. says he feels ok under current circumstances. informed patient of low hb< 7, and discussed need for prbc transfusion, patient declined, says to monitor, if it remains low tomorrow, he will consider transfusion. Physical Exam Vital signs: Last Vital Signs Temp 97.1 F L 09/18/18 12:08 Pulse 59 L 09/18/18 12:08 Resp 16 09/18/18 12:08 BP 118/56 L 09/18/18 12:08 Pulse Ox 97 09/18/18 12:08 Intake & Output 09/16/18 09/17/18 09/18/18 09/19/18 06:59 06:59 06:59 06:59 Intake Total 1200 / 1200 1200 / 1200 1340 / 1340 Output Total 1875 / 1875 140 / 140 1550 / 1550 Balance -675 / -675 1060 / 1060 -210 / -210 Weight 69.5 kg 70.2 kg 70.1 kg Narrative: GENERAL: middle aged man, not in acute distress, appears thin HEENT:pale,anicteric NECK:no JVD, RIJ tunneled catheter in situ. CARDIOVASCULAR: Regular rate and rhythm without murmurs, gallops, or rubs. RESPIRATORY: Clear to auscultation. Breath sounds equal bilaterally. No wheezes , rales, or rhonchi. GASTROINTESTINAL: Abdomen soft, non-tender, nondistended. Normal active bowel sounds MUSCULOSKELETAL: Extremities without clubbing, cyanosis, or edema. Lt arm AV fistula with weak thrill. NEURO: Alert & Oriented x4 to person, place, time, situation. Moves all ext x4 Results Labs CBC & Chem 7: 09/19/18 07:21 09/19/18 07:21 Assessment and Plan (1) End stage renal disease: Code(s): N18.6 - End stage renal disease Status: Chronic (2) Anemia: Code(s): D64.9 - Anemia, unspecified Status: Acute (3) Dyspnea: Code(s): R06.00 - Dyspnea, unspecified Status: Acute (4) Prostate cancer metastatic to bone: Code(s): C61 - Malignant neoplasm of prostate; C79.51 - Secondary malignant neoplasm of bone Status: Chronic Plan 63-year-old man with h/o ESRD on HD MWF schedule,Anemia, hypertension, prostate cancer, and resistant C. difficile who presented to the [place] ER c/o shortness of breath and cough.He was found to have a troponin of 2.31, hemoglobin of 6.8, stool with faintly positive occult blood, severe pitting lower extremity edema and a BNP greater than 5000. He was transferred to here for further mx. Evaluation found to have multivessel coronary artery disease, declined CABG. Multivessel coronary artery disease Non-ST elevation [place] Cardiothoracic consulted for evaluation for possible CABG--patient not good candidate Cardiology considered coronary stent for palliative relief to decrease angina [place], and CHF but patient declines any procedures at this time. Continue medical management with aspirin, beta fab, statin. Heparin is contraindicated in the setting of GI bleed Appreciate input from cardiology Dyspnea-Resolved Bilateral pleural effusions, right greater than left Incentive spirometer while awake Nebs scheduled and PRN Nicotine patch ESRD on HD--cont as per nephrology schedule Acute hyperkalemia--resolved. Suspected recurrent GI bleed, likely lower EGD shows no significant source of bleed, Colonoscopy revealed multiple colon polyps. Some of the polyps were removed. GI recommendations appreciated Acute on chronic normocytic anemia secondary- chronic anemia likely due to ESRD acute anemia likely secondary to blood loss. Transfuse for hemoglobin less than 7- Hb low to 6.9 since 09/17,patient declining prbc transfusion. d/w patient today , says he will consider transfusion tomorrow if his hb remains <7. History of metastatic prostate CA Continue home Flomax Continue bicalutamide Management per oncology History of C diff colitis Lactic acidosis-resolved Completed therapy with PO metronidazole patient perviously declined vancomycin blood cultures negative Prophylaxis SCDs only, heparin contraindicated in the setting of acute blood loss anemia Protonix BID in the setting of GIB Progress Note: Quality VTE Deep Vein Thrombosis/Pulmonary Embolism Present on Admission: No _ (1) Anemia Qualifiers: Anemia type: due to chronic kidney disease Bone marrow failure anemia type: Chronic kidney disease stage: on chronic dialysis Folate deficiency anemia type: Hemolytic anemia type: Iron deficiency anemia type: Other causes of anemia: Vitamin B12 deficiency anemia type: Qualified Code(s): N18.6 - End stage renal disease; D63.1 - Anemia in chronic kidney disease; Z99.2 - Dependence on renal dialysis (2) Dyspnea Qualifiers: Dyspnea type: shortness of breath Qualified Code(s): R06.02 - Shortness of breath; R06.00 - Dyspnea, unspecified; R06.01 - Orthopnea
--- NOTE | 2018-09-18 16:49 | P.PNNP ---
Subjective Interval history: Patient reports feeling overall weakness and fatigue. Hemodialysis yesterday tolerated well. <Yris Delong - Last Filed: 09/18/18 16:44> Physical Exam Vital signs: Vital Signs 09/17/18 20:00 09/17/18 20:20 09/18/18 00:00 Temperature 98.8 F 100.1 F H Pulse Rate 56 L 67 Respiratory Rate 18 16 Blood Pressure 115/57 L 118/62 Pulse Oximetry 95 99 97 09/18/18 04:00 09/18/18 08:00 09/18/18 08:33 Temperature 99.4 F 98.1 F Pulse Rate 99 H 69 63 Respiratory Rate 16 16 16 Blood Pressure 115/64 116/52 L Pulse Oximetry 91 L 99 09/18/18 12:00 09/18/18 12:08 09/18/18 15:31 Temperature 97.1 F L 99.5 F Pulse Rate 60 59 L 55 L Respiratory Rate 16 16 Blood Pressure 118/56 L 119/60 Pulse Oximetry 97 98 Intake & Output 09/17/18 09/18/18 09/18/18 18:59 06:59 18:59 Intake Total 940 / 940 400 / 400 Output Total 1200 / 1200 350 / 350 Balance -260 / -260 50 / 50 Weight 70.1 kg Intake: Oral 940 / 940 400 / 400 Output: Urine 200 / 200 350 / 350 Hemodialysis Amount 1000 / 1000 Other: Date of Last Bowel Movement 09/15/18 09/15/18 09/15/18 Narrative: GENERAL: Alert and oriented. Thin and pale. NECK:no JVD, RIJ tunneled catheter in situ. CARDIOVASCULAR: Regular rate and rhythm without murmurs, gallops, or rubs. RESPIRATORY: Clear to auscultation. Breath sounds equal bilaterally. No wheezes , rales, or rhonchi. GASTROINTESTINAL: Abdomen soft, non-tender, nondistended. Normal active bowel sounds MUSCULOSKELETAL: Extremities without clubbing, cyanosis, or edema. Lt arm AV fistula with weak thrill. <Yris Delong - Last Filed: 09/18/18 16:44> Vital signs: Vital Signs 09/17/18 20:20 09/18/18 00:00 09/18/18 04:00 Temperature 100.1 F H 99.4 F Pulse Rate 67 99 H Respiratory Rate 16 16 Blood Pressure 118/62 115/64 Pulse Oximetry 99 97 91 L 09/18/18 08:00 09/18/18 08:33 09/18/18 12:00 Temperature 98.1 F Pulse Rate 69 63 60 Respiratory Rate 16 16 Blood Pressure 116/52 L Pulse Oximetry 99 09/18/18 12:08 09/18/18 15:31 09/18/18 16:00 Temperature 97.1 F L 99.5 F Pulse Rate 59 L 55 L 54 L Respiratory Rate 16 16 Blood Pressure 118/56 L 119/60 Pulse Oximetry 97 98 Intake & Output 09/18/18 09/18/18 09/19/18 06:59 18:59 06:59 Intake Total 400 / 400 650 / 650 Output Total 350 / 350 350 / 350 Balance 50 / 50 300 / 300 Weight 70.1 kg Intake: Oral 400 / 400 650 / 650 Output: Urine 350 / 350 350 / 350 Other: Date of Last Bowel Movement 09/15/18 09/15/18 <Vance Roger - Last Filed: 09/18/18 20:10> Assessment and Plan - Assessment (1) End stage renal disease Code(s): N18.6 - End stage renal disease Status: Chronic (2) Anemia Code(s): D64.9 - Anemia, unspecified Status: Acute Qualifiers: Anemia type: due to chronic kidney disease Chronic kidney disease stage: on chronic dialysis Qualified Code(s): N18.6 - End stage renal disease; D63.1 - Anemia in chronic kidney disease; Z99.2 - Dependence on renal dialysis (3) Dyspnea Code(s): R06.00 - Dyspnea, unspecified Status: Acute Qualifiers: Dyspnea type: shortness of breath Qualified Code(s): R06.02 - Shortness of breath; R06.00 - Dyspnea, unspecified; R06.01 - Orthopnea (4) Prostate cancer metastatic to bone Code(s): C61 - Malignant neoplasm of prostate; C79.51 - Secondary malignant neoplasm of bone Status: Chronic - Plan HD MWF Has current right IJ catheter Left upper arm AVF with recent infiltration, pulsatile with possible outflow vein stenosis vs infiltration swelling. Allow AVF to rest, may re-evaluate as an outpatient. Hgb. is low 6.9 but stable, transfuse as needed recommend if below 7, patient is currently refusing. On Epogen with dialysis Following with cardiology - post Cardiac Cath. Has multi vessel disease, but not a good candidate for CABG. Metastatic prostate cancer. Palliative care following. HD yesterday with UF of 1 liter Next HD on Tuesday <Yris Delong - Last Filed: 09/18/18 16:44> - Assessment (1) End stage renal disease Code(s): N18.6 - End stage renal disease Status: Chronic (2) Anemia Code(s): D64.9 - Anemia, unspecified Status: Acute Qualifiers: Anemia type: due to chronic kidney disease Chronic kidney disease stage: on chronic dialysis Qualified Code(s): N18.6 - End stage renal disease; D63.1 - Anemia in chronic kidney disease; Z99.2 - Dependence on renal dialysis (3) Dyspnea Code(s): R06.00 - Dyspnea, unspecified Status: Acute Qualifiers: Dyspnea type: shortness of breath Qualified Code(s): R06.02 - Shortness of breath; R06.00 - Dyspnea, unspecified; R06.01 - Orthopnea (4) Prostate cancer metastatic to bone Code(s): C61 - Malignant neoplasm of prostate; C79.51 - Secondary malignant neoplasm of bone Status: Chronic - Plan Patient seen and examined, agree with above. HD done yesterday, awaiting placement. <Vance Roger - Last Filed: 09/18/18 20:10>
[2018-09-19] MEDS: Pantoprazole Inj 40 MG Vial IV.PUSH SCH ×2 (02:43→13:23)
[2018-09-19 08:25] LABS: Baso # (Auto) 0.1 th/mm3 (0.0-0.2); Eos % (Auto) 0.3 % (0.0-4.0); Hematocrit 21.8 % (39.0-51.0); Hemoglobin 7.4 gm/dL (13.0-17.0); Lymph # (Auto) 2.4 th/mm3 (1.0-4.8); Lymph % (Auto) 30.9 % (9.0-44.0); Mean Corpuscular HGB Conc 34.1 % (32.0-36.0); Mean Corpuscular Hemoglobin 30.3 pg (27.0-34.0); Mean Corpuscular Volume 89.1 fL (80.0-100.0); Mean Platelet Volume 7.7 fL (7.0-11.0); Mono # (Auto) 0.5 th/mm3 (0.0-0.9); Mono % (Auto) 5.9 % (0.0-8.0); Neut # (Auto) 4.8 th/mm3 (1.8-7.7); Neut % (Auto) 61.9 % (16.0-70.0); Platelet Count 182 th/mm3 (150-450); Red Blood Count 2.45 mil/mm3 (4.50-5.90); Red Cell Distribution Width 18.6 % (11.6-17.2); White Blood Count 7.8 th/mm3 (4.0-11.0)
[2018-09-19 08:45] LABS: Carbon Dioxide 30.4 meq/L (21.0-32.0); Potassium 3.8 meq/L (3.5-5.1)
[2018-09-19] MEDS: Lactobacillus Acidophilus/L. Spores Tablet PO SCH ×2 (09:27→21:20)
[2018-09-19] MEDS: Metoprolol Tartrate 25 MG Tablet PO SCH ×2 (09:27→21:18)
[2018-09-19] MEDS: amLODIPine 5 MG Tablet PO SCH (09:29)
--- NOTE | 2018-09-19 14:21 | P.PNIM ---
Subjective Interval history: no new complaints. Physical Exam Vital signs: Last Vital Signs Temp 98.9 F 09/19/18 11:17 Pulse 54 L 09/19/18 11:17 Resp 18 09/19/18 11:17 BP 112/54 L 09/19/18 11:17 Pulse Ox 96 09/19/18 11:17 Intake & Output 09/17/18 09/18/18 09/19/18 09/20/18 06:59 06:59 06:59 06:59 Intake Total 1200 / 1200 1340 / 1340 890 / 890 Output Total 140 / 140 1550 / 1550 500 / 500 150 / 150 Balance 1060 / 1060 -210 / -210 390 / 390 -150 / -150 Weight 70.2 kg 70.1 kg 67.7 kg Narrative: GENERAL: middle aged man, not in acute distress, appears thin HEENT:pale,anicteric NECK:no JVD, RIJ tunneled catheter in situ. CARDIOVASCULAR: Regular rate and rhythm without murmurs, gallops, or rubs. RESPIRATORY: Clear to auscultation. Breath sounds equal bilaterally. No wheezes , rales, or rhonchi. GASTROINTESTINAL: Abdomen soft, non-tender, nondistended. Normal active bowel sounds MUSCULOSKELETAL: Extremities without clubbing, cyanosis, or edema. Lt arm AV fistula with weak thrill. NEURO: Alert & Oriented x4 to person, place, time, situation. Moves all ext x4 Results Labs CBC & Chem 7: 09/19/18 07:21 09/19/18 07:21 Assessment and Plan (1) End stage renal disease: Code(s): N18.6 - End stage renal disease Status: Chronic (2) Anemia: Code(s): D64.9 - Anemia, unspecified Status: Acute (3) Dyspnea: Code(s): R06.00 - Dyspnea, unspecified Status: Acute (4) Prostate cancer metastatic to bone: Code(s): C61 - Malignant neoplasm of prostate; C79.51 - Secondary malignant neoplasm of bone Status: Chronic Plan 63-year-old man with h/o ESRD on HD MWF schedule,Anemia, hypertension, prostate cancer, and resistant C. difficile who presented to the [place] ER c/o shortness of breath and cough.He was found to have a troponin of 2.31, hemoglobin of 6.8, stool with faintly positive occult blood, severe pitting lower extremity edema and a BNP greater than 5000. He was transferred to here for further mx. Evaluation found to have multivessel coronary artery disease, declined CABG. Multivessel coronary artery disease Non-ST elevation [place] Cardiothoracic consulted for evaluation for possible CABG--patient not good candidate Cardiology considered coronary stent for palliative relief to decrease angina [place], and CHF but patient declines any procedures at this time. Continue medical management with aspirin, beta fab, statin. Heparin is contraindicated in the setting of GI bleed Appreciate input from cardiology Dyspnea-Resolved Bilateral pleural effusions, right greater than left Incentive spirometer while awake Nebs scheduled and PRN Nicotine patch ESRD on HD--cont as per nephrology schedule,had on 09/18/18 Acute hyperkalemia--resolved. Suspected recurrent GI bleed, likely lower EGD shows no significant source of bleed, Colonoscopy revealed multiple colon polyps. Some of the polyps were removed. GI recommendations appreciated Acute on chronic normocytic anemia secondary- chronic anemia likely due to ESRD acute anemia likely secondary to blood loss. Transfuse for hemoglobin less than 7- Hb low to 6.9 since 09/17,patient declining prbc transfusion. 09/19/18- Hb 7.4, continue to monitor. History of metastatic prostate CA Continue home Flomax Continue bicalutamide Management per oncology History of C diff colitis Lactic acidosis-resolved Completed therapy with PO metronidazole patient perviously declined vancomycin blood cultures negative Prophylaxis SCDs only, heparin contraindicated in the setting of acute blood loss anemia Protonix BID in the setting of GIB Progress Note: Quality VTE Deep Vein Thrombosis/Pulmonary Embolism Present on Admission: No _ (1) Anemia Qualifiers: Anemia type: due to chronic kidney disease Bone marrow failure anemia type: Chronic kidney disease stage: on chronic dialysis Folate deficiency anemia type: Hemolytic anemia type: Iron deficiency anemia type: Other causes of anemia: Vitamin B12 deficiency anemia type: Qualified Code(s): N18.6 - End stage renal disease; D63.1 - Anemia in chronic kidney disease; Z99.2 - Dependence on renal dialysis (2) Dyspnea Qualifiers: Dyspnea type: shortness of breath Qualified Code(s): R06.02 - Shortness of breath; R06.00 - Dyspnea, unspecified; R06.01 - Orthopnea
--- NOTE | 2018-09-19 18:11 | P.PNNP ---
Subjective Interval history: Patient seen in AM,no specific complain, no SOB. Physical Exam Vital signs: Vital Signs 09/18/18 20:00 09/19/18 00:00 09/19/18 04:00 Temperature 98.2 F 100.1 F H 98.5 F Pulse Rate 59 L 57 L 58 L Respiratory Rate 18 16 16 Blood Pressure 119/60 114/56 L 120/58 L Pulse Oximetry 98 96 97 09/19/18 07:00 09/19/18 09:16 09/19/18 11:00 Temperature 98.8 F Pulse Rate 63 62 55 L Respiratory Rate 18 Blood Pressure 123/62 Pulse Oximetry 100 09/19/18 11:17 09/19/18 15:00 09/19/18 15:07 Temperature 98.9 F 98.6 F Pulse Rate 54 L 64 66 Respiratory Rate 18 18 Blood Pressure 112/54 L 121/57 L Pulse Oximetry 96 99 Intake & Output 09/18/18 09/19/18 09/19/18 18:59 06:59 18:59 Intake Total 650 / 650 240 / 240 680 / 680 Output Total 350 / 350 150 / 150 400 / 400 Balance 300 / 300 90 / 90 280 / 280 Weight 67.7 kg Intake: Oral 650 / 650 240 / 240 680 / 680 Output: Urine 350 / 350 150 / 150 400 / 400 Other: Date of Last Bowel Movement 09/15/18 09/15/18 09/18/18 Narrative: GENERAL: middle aged man, not in acute distress, appears thin HEENT:pale,anicteric NECK:no JVD, RIJ tunneled catheter in situ. CARDIOVASCULAR: Regular rate and rhythm without murmurs, gallops, or rubs. RESPIRATORY: Clear to auscultation. Breath sounds equal bilaterally. No wheezes , rales, or rhonchi. GASTROINTESTINAL: Abdomen soft, non-tender, nondistended. Normal active bowel sounds MUSCULOSKELETAL: Extremities without clubbing, cyanosis, or edema. Lt arm AV fistula with weak thrill. NEURO: Alert & Oriented x4 to person, place, time, situation. Moves all ext x4 Assessment and Plan - Assessment (1) End stage renal disease Code(s): N18.6 - End stage renal disease Status: Chronic Plan: HD MWF Has current right IJ catheter Left upper arm AVF with recent infiltration, pulsatile with possible outflow vein stenosis vs infiltration swelling. Allow AVF to rest, may re-evaluate as an outpatient. Post colonoscopy - multiple polyps, larger polyps removed Hgb. is low but stable, transfuse as needed On Epogen with dialysis Following with cardiology - post Cardiac [place]. Cardiology follow up noted. metastatic prostate cancer. Hgb. is low, on Epogen and transfuse if Hgb is below 7.0. Has multi vessel disease, but not a good candidate for CABG. Palliative care following. HD to continue MWF, next will be in AM. (2) Anemia Code(s): D64.9 - Anemia, unspecified Status: Acute Qualifiers: Anemia type: due to chronic kidney disease Chronic kidney disease stage: on chronic dialysis Qualified Code(s): N18.6 - End stage renal disease; D63.1 - Anemia in chronic kidney disease; Z99.2 - Dependence on renal dialysis (3) Dyspnea Code(s): R06.00 - Dyspnea, unspecified Status: Acute Qualifiers: Dyspnea type: shortness of breath Qualified Code(s): R06.02 - Shortness of breath; R06.00 - Dyspnea, unspecified; R06.01 - Orthopnea (4) Prostate cancer metastatic to bone Code(s): C61 - Malignant neoplasm of prostate; C79.51 - Secondary malignant neoplasm of bone Status: Chronic
[2018-09-20] MEDS: Pantoprazole Inj 40 MG Vial IV.PUSH SCH ×2 (05:31→13:12)
[2018-09-20] MEDS: Lactobacillus Acidophilus/L. Spores Tablet PO SCH ×2 (08:28→22:05)
[2018-09-20] MEDS: Heparin 10,000 UNITS/10 ML Vial (for IV use) OTHER PRN (09:55)
--- NOTE | 2018-09-20 14:24 | P.PNIM ---
Subjective Interval history: patient feels tired after hemodialysis, has no other complaints. Physical Exam Vital signs: Last Vital Signs Temp 99.9 F H 09/20/18 08:24 Pulse 69 09/20/18 08:22 Resp 20 09/20/18 08:22 BP 125/64 09/20/18 08:22 Pulse Ox 95 09/20/18 08:22 Intake & Output 09/18/18 09/19/18 09/20/18 09/21/18 06:59 06:59 06:59 06:59 Intake Total 1340 / 1340 890 / 890 680 / 680 Output Total 1550 / 1550 500 / 500 400 / 400 500 / 500 Balance -210 / -210 390 / 390 280 / 280 -500 / -500 Weight 70.1 kg 67.7 kg Narrative: GENERAL: middle aged man, not in acute distress, appears thin HEENT:pale,anicteric NECK:no JVD, RIJ tunneled catheter in situ. CARDIOVASCULAR: Regular rate and rhythm without murmurs, gallops, or rubs. RESPIRATORY: Clear to auscultation. Breath sounds equal bilaterally. No wheezes , rales, or rhonchi. GASTROINTESTINAL: Abdomen soft, non-tender, nondistended. Normal active bowel sounds MUSCULOSKELETAL: Extremities without clubbing, cyanosis, or edema. Lt arm AV fistula with weak thrill. NEURO: Alert & Oriented x4 to person, place, time, situation. Moves all ext x4 Results Labs CBC & Chem 7: 09/19/18 07:21 09/19/18 07:21 Assessment and Plan (1) End stage renal disease: Code(s): N18.6 - End stage renal disease Status: Chronic (2) Anemia: Code(s): D64.9 - Anemia, unspecified Status: Acute (3) Dyspnea: Code(s): R06.00 - Dyspnea, unspecified Status: Acute (4) Prostate cancer metastatic to bone: Code(s): C61 - Malignant neoplasm of prostate; C79.51 - Secondary malignant neoplasm of bone Status: Chronic Plan 63-year-old man with h/o ESRD on HD MWF schedule,Anemia, hypertension, prostate cancer, and resistant C. difficile who presented to the [place] ER c/o shortness of breath and cough.He was found to have a troponin of 2.31, hemoglobin of 6.8, stool with faintly positive occult blood, severe pitting lower extremity edema and a BNP greater than 5000. He was transferred to here for further mx. Evaluation found to have multivessel coronary artery disease, declined CABG. Multivessel coronary artery disease Non-ST elevation [place] Cardiothoracic consulted for evaluation for possible CABG--patient not good candidate Cardiology considered coronary stent for palliative relief to decrease angina [place], and CHF but patient declines any procedures at this time. Continue medical management with aspirin, beta fab, statin. Heparin is contraindicated in the setting of GI bleed Appreciate input from cardiology Dyspnea-Resolved Bilateral pleural effusions, right greater than left Incentive spirometer while awake Nebs scheduled and PRN Nicotine patch ESRD on HD--cont as per nephrology schedule,had session today. Acute hyperkalemia--resolved. Suspected recurrent GI bleed, likely lower EGD shows no significant source of bleed, Colonoscopy revealed multiple colon polyps. Some of the polyps were removed. GI recommendations appreciated Acute on chronic normocytic anemia secondary- chronic anemia likely due to ESRD acute anemia likely secondary to blood loss. Transfuse for hemoglobin less than 7- Hb low to 6.9 since 09/17,patient declining prbc transfusion. 09/19/18- Hb 7.4. repeat level on 09/21. History of metastatic prostate CA Continue home Flomax Continue bicalutamide Management per oncology History of C diff colitis Lactic acidosis-resolved Completed therapy with PO metronidazole patient perviously declined vancomycin blood cultures negative Prophylaxis SCDs only, heparin contraindicated in the setting of acute blood loss anemia Protonix BID in the setting of GIB. Progress Note: Quality VTE Deep Vein Thrombosis/Pulmonary Embolism Present on Admission: No _ (1) Anemia Qualifiers: Anemia type: due to chronic kidney disease Bone marrow failure anemia type: Chronic kidney disease stage: on chronic dialysis Folate deficiency anemia type: Hemolytic anemia type: Iron deficiency anemia type: Other causes of anemia: Vitamin B12 deficiency anemia type: Qualified Code(s): N18.6 - End stage renal disease; D63.1 - Anemia in chronic kidney disease; Z99.2 - Dependence on renal dialysis (2) Dyspnea Qualifiers: Dyspnea type: shortness of breath Qualified Code(s): R06.02 - Shortness of breath; R06.00 - Dyspnea, unspecified; R06.01 - Orthopnea
--- NOTE | 2018-09-20 14:47 | P.PNONC ---
Subjective Interval history: Patient resting in bed, no acute distress. He reports being tired today. He had dialysis earlier today. Objective Vital Signs/Intake & Output: Vital Signs 09/19/18 15:00 09/19/18 15:07 09/19/18 19:58 Temperature 98.6 F Pulse Rate 64 66 Respiratory Rate 18 Blood Pressure 121/57 L Pulse Oximetry 99 98 09/19/18 20:00 09/20/18 00:00 09/20/18 04:00 Temperature 99.4 F 100.0 F H 98.7 F Pulse Rate 69 68 71 Respiratory Rate 14 16 16 Blood Pressure 125/62 124/62 135/66 Pulse Oximetry 96 96 92 L 09/20/18 07:52 09/20/18 08:22 09/20/18 08:24 Temperature 99.9 F H Pulse Rate 63 69 Respiratory Rate 20 Blood Pressure 125/64 Pulse Oximetry 95 Intake & Output 09/19/18 09/20/18 09/20/18 18:59 06:59 18:59 Intake Total 680 / 680 Output Total 400 / 400 500 / 500 Balance 280 / 280 -500 / -500 Intake: Oral 680 / 680 Output: Urine 400 / 400 Hemodialysis Amount 500 / 500 Other: Date of Last Bowel Movement 09/18/18 Result Diagrams: 09/19/18 07:21 09/19/18 07:21 Laboratory Results: Laboratory Results - last 24 hr 09/17/18 07:15 MTS Gel Crossmatch See Detail Medications: Active Medications Generic Name Dose Route Start Last Admin Trade Name Freq PRN Reason Stop Dose Admin Amlodipine Besylate 5 mg 09/11/18 12:00 09/19/18 09:29 Norvasc PO Not Given DAILY CYNDIE Aspirin 81 mg 09/15/18 09:00 09/20/18 08:28 Aspirin Chew PO 81 mg DAILY CYNDIE Administration Atorvastatin Calcium 20 mg 09/13/18 21:00 09/19/18 21:18 Lipitor PO 20 mg HS CYNDIE Administration Bicalutamide 50 mg 09/11/18 18:00 09/20/18 08:28 Casodex PO 50 mg DAILY CYNDIE Administration Epoetin Hermes 10,000 unit 09/04/18 11:44 09/20/18 09:56 Epogen Inj IV.PUSH 10,000 unit UNSCH PRN Administration SEE LABEL COMMENTS Gentamicin Sulfate 20 mg 09/04/18 11:44 09/20/18 09:56 Gentamicin Inj OTHER 20 mg WITH DIALYSIS PRN Administration Dwell Gentamycin Lock Heparin Sodium (Porcine) 1,000 units 09/04/18 11:44 09/20/18 09:55 Heparin Inj OTHER 1,000 units WITH DIALYSIS PRN Administration Dwell Heparin to Fill Catheter Lactobacillus Acidophilus 1 tab 09/09/18 21:00 09/20/18 08:28 Lactinex PO 1 tab BID CYNDIE Administration Metoprolol Tartrate 12.5 mg 09/04/18 21:00 09/19/18 21:18 Lopressor PO 12.5 mg BID CYNDIE Administration Nicotine 1 patch 09/03/18 18:45 09/19/18 10:17 Habitrol 7 Mg Patch.24 Hr T-DERMAL Not Given DAILY CYNDIE Oxycodone/Acetaminophen 1 tab 09/03/18 16:50 09/20/18 08:27 Percocet 5/325 Mg PO 1 tab Q6H PRN Administration PAIN SCALE 1 TO 10 Pantoprazole Sodium 40 mg 09/05/18 14:00 09/20/18 05:31 Protonix Inj IV.PUSH 40 mg Q12H CYNDIE Administration Patch Removal 1 each 09/04/18 09:00 09/19/18 10:18 Remove Old Patch T-DERMAL Not Given DAILY CYNDIE Sodium Chloride 2 ml 09/03/18 14:56 09/06/18 08:37 Ns Flush IV.FLUSH 2 ml PRN PRN Administration FLUSH AFTER USING IV ACCESS Sodium Chloride 2 ml 09/03/18 21:00 09/19/18 21:21 Ns Flush IV.FLUSH 2 ml BID CYNDIE Administration Tamsulosin HCl 0.4 mg 09/04/18 09:00 09/20/18 08:28 Flomax PO 0.4 mg DAILY CYNDIE Administration Objective Remarks: GENERAL: Chronically ill-appearing elderly gentleman, in no acute distress. SKIN: Pale, warm and dry. Tunneled catheter to right chest wall. HEAD: Normocephalic. EYES: No scleral icterus. No injection or drainage. NECK: Supple, trachea midline. CARDIOVASCULAR: Regular rate and rhythm without murmurs. RESPIRATORY: Breath sounds distant, equal bilaterally. Nonlabored at rest. GASTROINTESTINAL: Abdomen soft, non-tender, nondistended. EXTREMITIES: No cyanosis, or edema. MUSCULOSKELETAL: Decreased muscle tone. NEUROLOGICAL: No obvious focal deficit. Awake, alert, and oriented x3. PSYCHIATRIC: Appropriate mood and affect; insight and judgment normal. Assessment/Plan - Plan Mr. Ross is a 63-year-old gentleman with metastatic prostate cancer. He initially presented with obstructive uropathy in 2016. He was placed on Lupron and Casodex. He had a magdiel and his PSA around the spring 2017. He reports not stopping his Casodex or his Lupron until May. His PSA trended up. His most recent PSA was 420. His course was complicated by a non-ST elevated myocardial infarction. He was declined for CABG. He also has a history of end- stage renal disease, on hemodialysis. Plan: 1. Repeat PSA, pending. Continues on Casodex. 2. End-stage renal disease, management per nephrology. 3. Continue supportive care. - Attending Statement The exam, history, and the medical decision-making described in the above note were completed with the assistance of the mid-level provider. I reviewed and agree with the findings presented. I attest that I had a [id number] encounter with the patient on the same day, and personally performed and documented my assessment and findings in the medical record. Complaint of fatigue. He describes continues treatment with the Casodex without any interruption. Anticipate that PSA is elevated despite the Casodex treatment. I expressed concern over hormone refractory prostate cancer. Alternative options for hormonal therapy prostate cancer include ketoconazole which would be available at the hospital. Information of ketoconazole was discussed. Anticipate starting in order to control disease in conjunction with hydrocortisone and Casodex withdrawal.
--- NOTE | 2018-09-20 15:19 | P.PNNP ---
Subjective Interval history: Patient seen in AM during HD, alert, no SOB. Physical Exam Vital signs: Vital Signs 09/19/18 19:58 09/19/18 20:00 09/20/18 00:00 Temperature 99.4 F 100.0 F H Pulse Rate 69 68 Respiratory Rate 14 16 Blood Pressure 125/62 124/62 Pulse Oximetry 98 96 96 09/20/18 04:00 09/20/18 07:52 09/20/18 08:22 Temperature 98.7 F Pulse Rate 71 63 69 Respiratory Rate 16 20 Blood Pressure 135/66 125/64 Pulse Oximetry 92 L 95 09/20/18 08:24 09/20/18 12:00 Temperature 99.9 F H 98.3 F Pulse Rate 63 Respiratory Rate 18 Blood Pressure 128/63 Pulse Oximetry 99 Intake & Output 09/19/18 09/20/18 09/20/18 18:59 06:59 18:59 Intake Total 680 / 680 Output Total 400 / 400 500 / 500 Balance 280 / 280 -500 / -500 Intake: Oral 680 / 680 Output: Urine 400 / 400 Hemodialysis Amount 500 / 500 Other: Date of Last Bowel Movement 09/18/18 Narrative: GENERAL: middle aged man, not in acute distress, appears thin HEENT:pale,anicteric NECK:no JVD, RIJ tunneled catheter in situ. CARDIOVASCULAR: Regular rate and rhythm without murmurs, gallops, or rubs. RESPIRATORY: Clear to auscultation. Breath sounds equal bilaterally. No wheezes , rales, or rhonchi. GASTROINTESTINAL: Abdomen soft, non-tender, nondistended. Normal active bowel sounds MUSCULOSKELETAL: Extremities without clubbing, cyanosis, or edema. Lt arm AV fistula with weak thrill. NEURO: Alert & Oriented x4 to person, place, time, situation. Moves all ext x4 Assessment and Plan - Assessment (1) End stage renal disease Code(s): N18.6 - End stage renal disease Status: Chronic Plan: HD MWF Has current right IJ catheter Left upper arm AVF with recent infiltration, pulsatile with possible outflow vein stenosis vs infiltration swelling. Allow AVF to rest, may re-evaluate as an outpatient. Post colonoscopy - multiple polyps, larger polyps removed Hgb. is low but stable, transfuse as needed On Epogen with dialysis Following with cardiology - post Cardiac Cayh. Cardiology follow up noted. metastatic prostate cancer. Hgb. is low, on Epogen and transfuse if Hgb is below 7.0. Last Hgb was 7.4 Has multi vessel disease, but not a good candidate for CABG. Palliative care following. HD now, remove fluid as tolerated. (2) Anemia Code(s): D64.9 - Anemia, unspecified Status: Acute Qualifiers: Qualified Code(s): N18.6 - End stage renal disease; D63.1 - Anemia in chronic kidney disease; Z99.2 - Dependence on renal dialysis (3) Dyspnea Code(s): R06.00 - Dyspnea, unspecified Status: Acute Qualifiers: Qualified Code(s): R06.02 - Shortness of breath; R06.00 - Dyspnea, unspecified; R06.01 - Orthopnea (4) Prostate cancer metastatic to bone Code(s): C61 - Malignant neoplasm of prostate; C79.51 - Secondary malignant neoplasm of bone Status: Chronic - Plan Patient seen and examined, agree with above. HD done yesterday, awaiting placement.
[2018-09-20] MEDS: amLODIPine 5 MG Tablet PO SCH (18:31)
[2018-09-20] MEDS: Metoprolol Tartrate 25 MG Tablet PO SCH ×2 (18:31→22:05)
[2018-09-21] MEDS: Pantoprazole Inj 40 MG Vial IV.PUSH SCH ×2 (03:02→14:59)
[2018-09-21 05:08] LABS: Free PSA/PSA Ratio 0 ratio
[2018-09-21 07:24] LABS: Baso # (Auto) 0.1 th/mm3 (0.0-0.2); Baso % (Auto) 0.8 % (0.0-2.0); Eos % (Auto) 0.3 % (0.0-4.0); Lymph % (Auto) 28.1 % (9.0-44.0); Mean Corpuscular HGB Conc 33.3 % (32.0-36.0); Mean Corpuscular Hemoglobin 29.7 pg (27.0-34.0); Mean Platelet Volume 7.6 fL (7.0-11.0); Mono # (Auto) 0.5 th/mm3 (0.0-0.9); Mono % (Auto) 7.5 % (0.0-8.0); Neut # (Auto) 4.4 th/mm3 (1.8-7.7); Neut % (Auto) 63.3 % (16.0-70.0); Platelet Count 186 th/mm3 (150-450); Red Blood Count 2.12 mil/mm3 (4.50-5.90); Red Cell Distribution Width 18.8 % (11.6-17.2)
[2018-09-21 07:48] LABS: Hemoglobin 6.3 gm/dL (13.0-17.0)
[2018-09-21 07:49] LABS: Calcium 7.5 mg/dL (8.5-10.1); Carbon Dioxide 30.9 meq/L (21.0-32.0); Hematocrit 18.8 % (39.0-51.0); Potassium 3.5 meq/L (3.5-5.1)
[2018-09-21] MEDS: Metoprolol Tartrate 25 MG Tablet PO SCH ×2 (08:43→20:59)
[2018-09-21] MEDS: amLODIPine 5 MG Tablet PO SCH (08:43)
[2018-09-21] MEDS: Lactobacillus Acidophilus/L. Spores Tablet PO SCH (08:46)
--- NOTE | 2018-09-21 15:45 | P.PNONC ---
Subjective Interval history: Pt lying in bed, in no acute distress. He reports an aching in his pelvis and legs, relieved by pain pill. Discussed treatment plan. Pt reports receiving a "shot" with Dr Fine on the . He also reports that he was taking casodex prior to this hospitalization. Objective Vital Signs/Intake & Output: Vital Signs 09/20/18 16:00 09/20/18 17:06 09/20/18 20:00 Temperature 98.9 F 98.7 F Pulse Rate 64 78 66 Respiratory Rate 16 16 Blood Pressure 118/56 L 110/52 L Pulse Oximetry 97 98 09/20/18 23:44 09/20/18 23:57 09/21/18 03:09 Temperature 98.5 F Pulse Rate 66 62 61 Respiratory Rate 16 Blood Pressure 123/58 L Pulse Oximetry 96 09/21/18 03:10 09/21/18 08:00 09/21/18 09:33 Temperature 97.6 F 99.5 F Pulse Rate 62 56 L Respiratory Rate 16 16 Blood Pressure 119/54 L 102/52 L Pulse Oximetry 95 97 100 09/21/18 12:00 Temperature 98.6 F Pulse Rate 59 L Respiratory Rate 14 Blood Pressure 109/51 L Pulse Oximetry 100 Intake & Output 09/20/18 09/21/18 09/21/18 18:59 06:59 18:59 Intake Total 720 / 720 Output Total 550 / 550 350 / 350 Balance -550 / -550 370 / 370 Weight 67.1 kg Intake: Oral 720 / 720 Output: Urine 50 / 50 350 / 350 Hemodialysis Amount 500 / 500 Other: # Bowel Movements 1 Result Diagrams: 09/21/18 06:53 09/21/18 06:53 Laboratory Results: Laboratory Results - last 24 hr 09/19/18 09/21/18 09/21/18 07:21 06:53 06:53 WBC 7.0 RBC 2.12 L Hgb 6.3 L* Hct 18.8 L* MCV 89.0 MCH 29.7 MCHC 33.3 RDW 18.8 H Plt Count 186 MPV 7.6 Neut % (Auto) 63.3 Lymph % (Auto) 28.1 Mcdonald % (Auto) 7.5 Eos % (Auto) 0.3 Baso % (Auto) 0.8 Neut # (Auto) 4.4 Lymph # (Auto) 2.0 Mcdonald # (Auto) 0.5 Eos # (Auto) 0.0 Baso # (Auto) 0.1 WBC Differential . Differential Comment Auto diff final Sodium 138 Potassium 3.5 Chloride 101 Carbon Dioxide 30.9 Anion Gap 6 BUN 16 Creatinine 3.02 H Estimated GFR 21 L Random Glucose 131 H Calcium 7.5 L Free PSA Greater than 18.0 Total PSA 239.0 H PSA Free/Total Ratio 0 Medications: Active Medications Generic Name Dose Route Start Last Admin Trade Name Freq PRN Reason Stop Dose Admin Amlodipine Besylate 5 mg 09/11/18 12:00 09/21/18 08:43 Norvasc PO Not Given DAILY CYNDIE Aspirin 81 mg 09/15/18 09:00 09/21/18 08:46 Aspirin Chew PO 81 mg DAILY CYNDIE Administration Atorvastatin Calcium 20 mg 09/13/18 21:00 09/20/18 22:05 Lipitor PO 20 mg HS CYNDIE Administration Epoetin Hermes 10,000 unit 09/04/18 11:44 09/20/18 09:56 Epogen Inj IV.PUSH 10,000 unit UNSCH PRN Administration SEE LABEL COMMENTS Gentamicin Sulfate 20 mg 09/04/18 11:44 09/20/18 09:56 Gentamicin Inj OTHER 20 mg WITH DIALYSIS PRN Administration Dwell Gentamycin Lock Heparin Sodium (Porcine) 1,000 units 09/04/18 11:44 09/20/18 09:55 Heparin Inj OTHER 1,000 units WITH DIALYSIS PRN Administration Dwell Heparin to Fill Catheter Ketoconazole 200 mg 09/20/18 22:00 09/21/18 14:59 Nizoral PO 200 mg Q8HR CYNDIE Administration Lactobacillus Acidophilus 1 tab 09/09/18 21:00 09/21/18 08:46 Lactinex PO 1 tab BID CYNDIE Administration Metoprolol Tartrate 12.5 mg 09/04/18 21:00 09/21/18 08:43 Lopressor PO Not Given BID [facility] Nicotine 1 patch 09/03/18 18:45 09/21/18 08:46 Habitrol 7 Mg Patch.24 Hr T-DERMAL Not Given DAILY [facility] Oxycodone/Acetaminophen 1 tab 09/03/18 16:50 09/21/18 06:10 Percocet 5/325 Mg PO 1 tab Q6H PRN Administration PAIN SCALE 1 TO 10 Pantoprazole Sodium 40 mg 09/05/18 14:00 09/21/18 14:59 Protonix Inj IV.PUSH 40 mg Q12H CYNDIE Administration Patch Removal 1 each 09/04/18 09:00 09/21/18 08:47 Remove Old Patch T-DERMAL Not Given DAILY CYNDIE Sodium Chloride 2 ml 09/03/18 14:56 09/06/18 08:37 Ns Flush IV.FLUSH 2 ml PRN PRN Administration FLUSH AFTER USING IV ACCESS Sodium Chloride 2 ml 09/03/18 21:00 09/21/18 08:46 Ns Flush IV.FLUSH 2 ml BID CYNDIE Administration Tamsulosin HCl 0.4 mg 09/04/18 09:00 09/20/18 08:28 Flomax PO 0.4 mg DAILY CYNDIE Administration Objective Remarks: GENERAL: Chronically ill-appearing elderly gentleman, in no acute distress. SKIN: Pale, warm and dry. Tunneled catheter to right chest wall, drsg dry/ intact. HEAD: Normocephalic. EYES: No scleral icterus. No injection or drainage. NECK: Supple, trachea midline. CARDIOVASCULAR: Regular rate and rhythm without murmurs. RESPIRATORY: Breath sounds distant, equal bilaterally. Nonlabored at rest. GASTROINTESTINAL: Abdomen soft, non-tender, nondistended. EXTREMITIES: No cyanosis, or edema. MUSCULOSKELETAL: Decreased muscle tone. NEUROLOGICAL: No obvious focal deficit. Awake, alert, and oriented x3. PSYCHIATRIC: Appropriate mood and affect; insight and judgment normal. Assessment/Plan - Plan Mr. Ross is a 63-year-old gentleman with metastatic prostate cancer. He initially presented with obstructive uropathy in 2017. He was placed on Lupron and Casodex. He had a magdiel and his PSA around the spring 2017. He reports not stopping his Casodex or his Lupron until May. His PSA trended up. His most recent PSA was 420. His course was complicated by a non-ST elevated myocardial infarction. He was declined for CABG. He also has a history of end- stage renal disease, on hemodialysis. Plan: 1. Repeat PSA, 239. Continues on Casodex. 2. End-stage renal disease, management per nephrology. Hgb 6.3 g/dL, per Dr. Ashton, attending physician, he will receive blood tomorrow with dialysis. 3. Per Dr. Fine' office, they report that he received leuprolide injection on 06/06/18 and he was also on Casodex. They are unable to confirm what his PSA was prior to this injection. 4. Continue Casodex, will likely be unable to receive leuprolide injection while in the hospital. Pt will need to follow-up outpatient to receive his leuprolide. 5. Continue supportive care. - Attending Statement The exam, history, and the medical decision-making described in the above note were completed with the assistance of the mid-level provider. I reviewed and agree with the findings presented. I attest that I had a [id number] encounter with the patient on the same day, and personally performed and documented my assessment and findings in the medical record. Discussed with Dr. Fine's office his treatment so far. His last dose of Eligard was given on 06/06/18. He was due for dose of Eligard on 09/05/18. His PSA on 09/05/18 was 420. He does not have PSA prior to his Eligard. It is not clear if he was progressing even while on Lupron. Nevertheless on Casodex alone his PSA has decreased. The suggest that he still has hormone responsive disease. Discussed the option of the ketoconazole and Casodex with the patient. He prefers to be on Casodex. He has several bottles of Casodex at home. He has several bottles of Casodex at home, which suggest poor compliance. Discussed with the hospital pharmacy ability to obtain Lupron versus Eligard. Eligard is available. However the patient declined receiving Eligard. He reports some toxicity associated with Eligard. We will continue his hormonal therapy for his metastatic prostate cancer. We discussed alternative GnRH analog, which unfortunately is not available in the hospital. He refuses to take the Eligard which is formulary in the hospital. He has poor performance status with multiple medical problems. We will continue to follow during his hospitalization. Casodex alone is his current treatment and is less than optimal. Noted patient's preference not to receive Eligard. Fortunately his PSA is decreasing.
--- NOTE | 2018-09-21 16:58 | P.PNIM ---
Subjective Interval history: no new complaints Physical Exam Vital signs: Last Vital Signs Temp 98.6 F 09/21/18 16:00 Pulse 70 09/21/18 16:00 Resp 16 09/21/18 16:00 BP 125/68 09/21/18 16:00 Pulse Ox 97 09/21/18 16:00 Intake & Output 09/19/18 09/20/18 09/21/18 09/22/18 06:59 06:59 06:59 06:59 Intake Total 890 / 890 680 / 680 720 / 720 Output Total 500 / 500 400 / 400 900 / 900 Balance 390 / 390 280 / 280 -180 / -180 Weight 67.7 kg 67.1 kg Narrative: GENERAL: middle aged man, not in acute distress, appears thin HEENT:pale,anicteric NECK:no JVD, RIJ tunneled catheter in situ. CARDIOVASCULAR: Regular rate and rhythm without murmurs, gallops, or rubs. RESPIRATORY: Clear to auscultation. Breath sounds equal bilaterally. No wheezes , rales, or rhonchi. GASTROINTESTINAL: Abdomen soft, non-tender, nondistended. Normal active bowel sounds MUSCULOSKELETAL: Extremities without clubbing, cyanosis, or edema. Lt arm AV fistula with weak thrill. NEURO: Alert & Oriented x4 to person, place, time, situation. Moves all ext x4 Results Labs CBC & Chem 7: 09/22/18 05:50 09/22/18 05:50 Assessment and Plan Plan 63-year-old man with h/o ESRD on HD MWF schedule,Anemia, hypertension, prostate cancer, and resistant C. difficile who presented to the [place] ER c/o shortness of breath and cough.He was found to have a troponin of 2.31, hemoglobin of 6.8, stool with faintly positive occult blood, severe pitting lower extremity edema and a BNP greater than 5000. He was transferred to here for further mx. Evaluation found to have multivessel coronary artery disease, declined CABG. Multivessel coronary artery disease Non-ST elevation [place] Cardiothoracic consulted for evaluation for possible CABG--patient not good candidate Cardiology considered coronary stent for palliative relief to decrease angina [place], and CHF but patient declines any procedures at this time. Continue medical management with aspirin, beta fab, statin. Heparin is contraindicated in the setting of GI bleed Appreciate input from cardiology Dyspnea-Resolved Bilateral pleural effusions, right greater than left Incentive spirometer while awake Nebs scheduled and PRN Nicotine patch ESRD on HD--cont as per nephrology schedule. Acute hyperkalemia--resolved. Suspected recurrent GI bleed, likely lower EGD shows no significant source of bleed, Colonoscopy revealed multiple colon polyps. Some of the polyps were removed. GI recommendations appreciated Acute on chronic normocytic anemia secondary- chronic anemia likely due to ESRD acute anemia likely secondary to blood loss. Transfuse for hemoglobin less than 7- Hb low to 6.9 since 09/17,patient declining prbc transfusion. 09/19/18- Hb 7.4. repeat level on 09/21--was 6.3, will plan to transfuse 1 prbc with HD tomorrow. History of metastatic prostate CA Continue home Flomax Continue bicalutamide Management per oncology History of C diff colitis Lactic acidosis-resolved Completed therapy with PO metronidazole patient perviously declined vancomycin blood cultures negative Prophylaxis SCDs only, heparin contraindicated in the setting of acute blood loss anemia Protonix BID in the setting of GIB. Progress Note: Quality VTE Deep Vein Thrombosis/Pulmonary Embolism Present on Admission: No
[2018-09-21] MEDS ORDERED: Hydrocortisone 10 MG Tablet PO SCH (18:00)
--- NOTE | 2018-09-21 20:16 | P.PNNP ---
Subjective Interval history: Patient seen in AM, no SOB, no abd. pain, feeling weak and tired. Physical Exam Vital signs: Vital Signs 09/20/18 23:44 09/20/18 23:57 09/21/18 03:09 Temperature 98.5 F Pulse Rate 66 62 61 Respiratory Rate 16 Blood Pressure 123/58 L Pulse Oximetry 96 09/21/18 03:10 09/21/18 08:00 09/21/18 09:33 Temperature 97.6 F 99.5 F Pulse Rate 62 56 L Respiratory Rate 16 16 Blood Pressure 119/54 L 102/52 L Pulse Oximetry 95 97 100 09/21/18 12:00 09/21/18 16:00 09/21/18 19:43 Temperature 98.6 F 98.6 F 98.5 F Pulse Rate 59 L 61 60 Respiratory Rate 14 16 16 Blood Pressure 109/51 L 125/68 116/60 Pulse Oximetry 100 97 99 Intake & Output 09/21/18 09/21/18 09/22/18 06:59 18:59 06:59 Intake Total 720 / 720 720 / 720 Output Total 350 / 350 225 / 225 Balance 370 / 370 495 / 495 Weight 67.1 kg Intake: Oral 720 / 720 720 / 720 Output: Urine 350 / 350 225 / 225 Other: # Urine Diapers 2 # Bowel Movements 1 Narrative: GENERAL: middle aged man, not in acute distress, appears thin HEENT:pale,anicteric NECK:no JVD, RIJ tunneled catheter in situ. CARDIOVASCULAR: Regular rate and rhythm without murmurs, gallops, or rubs. RESPIRATORY: Clear to auscultation. Breath sounds equal bilaterally. No wheezes , rales, or rhonchi. GASTROINTESTINAL: Abdomen soft, non-tender, nondistended. Normal active bowel sounds MUSCULOSKELETAL: Extremities without clubbing, cyanosis, or edema. Lt arm AV fistula with weak thrill. NEURO: Alert & Oriented x4 to person, place, time, situation. Moves all ext x4 Assessment and Plan - Assessment (1) End stage renal disease Code(s): N18.6 - End stage renal disease Status: Chronic Plan: HD MWF Has current right IJ catheter Left upper arm AVF with recent infiltration, pulsatile with possible outflow vein stenosis vs infiltration swelling. Allow AVF to rest, may re-evaluate as an outpatient. Post colonoscopy - multiple polyps, larger polyps removed Hgb. is low but stable, transfuse as needed On Epogen with dialysis Following with cardiology - post Cardiac Cayh. Cardiology follow up noted. metastatic prostate cancer. Hgb. is low, on Epogen and transfuse if Hgb is below 7.0. Last Hgb was 7.4 Has multi vessel disease, but not a good candidate for CABG. Palliative care following. HD will be in AM. Hgb. decreased, for transfusion tomorrow with HD. (2) Anemia Code(s): D64.9 - Anemia, unspecified Status: Acute Qualifiers: Anemia type: due to chronic kidney disease Chronic kidney disease stage: on chronic dialysis Qualified Code(s): N18.6 - End stage renal disease; D63.1 - Anemia in chronic kidney disease; Z99.2 - Dependence on renal dialysis (3) Dyspnea Code(s): R06.00 - Dyspnea, unspecified Status: Acute Qualifiers: Dyspnea type: shortness of breath Qualified Code(s): R06.02 - Shortness of breath; R06.00 - Dyspnea, unspecified; R06.01 - Orthopnea (4) Prostate cancer metastatic to bone Code(s): C61 - Malignant neoplasm of prostate; C79.51 - Secondary malignant neoplasm of bone Status: Chronic - Plan Patient seen and examined, agree with above. HD done yesterday, awaiting placement.
[2018-09-22] MEDS: Pantoprazole Inj 40 MG Vial IV.PUSH SCH ×2 (02:55→17:19)
[2018-09-22 06:27] LABS: Baso # (Auto) 0.1 th/mm3 (0.0-0.2); Baso % (Auto) 0.8 % (0.0-2.0); Eos % (Auto) 0.3 % (0.0-4.0); Lymph % (Auto) 28.3 % (9.0-44.0); Mean Corpuscular HGB Conc 32.4 % (32.0-36.0); Mean Corpuscular Volume 89.7 fL (80.0-100.0); Mean Platelet Volume 7.2 fL (7.0-11.0); Mono # (Auto) 0.5 th/mm3 (0.0-0.9); Mono % (Auto) 7.3 % (0.0-8.0); Neut # (Auto) 4.4 th/mm3 (1.8-7.7); Neut % (Auto) 63.3 % (16.0-70.0); Platelet Count 179 th/mm3 (150-450); Red Blood Count 2.19 mil/mm3 (4.50-5.90); Red Cell Distribution Width 18.5 % (11.6-17.2); White Blood Count 6.9 th/mm3 (4.0-11.0)
[2018-09-22 06:35] LABS: Hematocrit 19.6 % (39.0-51.0); Hemoglobin 6.4 gm/dL (13.0-17.0)
[2018-09-22 06:58] LABS: Calcium 7.8 mg/dL (8.5-10.1); Carbon Dioxide 31.1 meq/L (21.0-32.0); Potassium 3.8 meq/L (3.5-5.1)
[2018-09-22] MEDS: Metoprolol Tartrate 25 MG Tablet PO SCH ×2 (09:02→20:38)
[2018-09-22] MEDS: amLODIPine 5 MG Tablet PO SCH ×2 (09:03→09:06)
--- NOTE | 2018-09-22 12:43 | P.PNIM ---
Subjective Interval history: no complaints at present. Physical Exam Vital signs: Last Vital Signs Temp 98.7 F 09/22/18 08:00 Pulse 50 L 09/22/18 08:00 Resp 16 09/22/18 08:00 BP 116/58 L 09/22/18 08:00 Pulse Ox 98 09/22/18 02:57 Intake & Output 09/20/18 09/21/18 09/22/18 09/23/18 06:59 06:59 06:59 06:59 Intake Total 680 / 680 720 / 720 920 / 920 Output Total 400 / 400 900 / 900 545 / 545 Balance 280 / 280 -180 / -180 375 / 375 Weight 67.1 kg 65.4 kg Narrative: GENERAL: middle aged man, not in acute distress, appears thin HEENT:pale,anicteric NECK:no JVD, RIJ tunneled catheter in situ. CARDIOVASCULAR: Regular rate and rhythm without murmurs, gallops, or rubs. RESPIRATORY: Clear to auscultation. Breath sounds equal bilaterally. No wheezes , rales, or rhonchi. GASTROINTESTINAL: Abdomen soft, non-tender, nondistended. Normal active bowel sounds MUSCULOSKELETAL: Extremities without clubbing, cyanosis, or edema. Lt arm AV fistula with weak thrill. NEURO: Alert & Oriented x4 to person, place, time, situation. Moves all ext x4 Results Labs CBC & Chem 7: 09/23/18 09:42 09/22/18 05:50 Assessment and Plan Plan 63-year-old man with h/o ESRD on HD MWF schedule,Anemia, hypertension, prostate cancer, and resistant C. difficile who presented to the [place] ER c/o shortness of breath and cough.He was found to have a troponin of 2.31, hemoglobin of 6.8, stool with faintly positive occult blood, severe pitting lower extremity edema and a BNP greater than 5000. He was transferred to here for further mx. Evaluation found to have multivessel coronary artery disease, declined CABG. Multivessel coronary artery disease Non-ST elevation [place] Cardiothoracic consulted for evaluation for possible CABG--patient not good candidate Cardiology considered coronary stent for palliative relief to decrease angina [place], and CHF but patient declines any procedures at this time. Continue medical management with aspirin, beta fab, statin. Heparin is contraindicated in the setting of GI bleed Appreciate input from cardiology Dyspnea-Resolved Bilateral pleural effusions, right greater than left Incentive spirometer while awake Nebs scheduled and PRN Nicotine patch ESRD on HD--cont as per nephrology schedule. Acute hyperkalemia--resolved. Suspected recurrent GI bleed, likely lower EGD shows no significant source of bleed, Colonoscopy revealed multiple colon polyps. Some of the polyps were removed. GI recommendations appreciated Acute on chronic normocytic anemia secondary- chronic anemia likely due to ESRD acute anemia likely secondary to blood loss. Transfuse for hemoglobin less than 7- Hb low to 6.9 since 09/17,patient declining prbc transfusion. 09/19/18- Hb 7.4. repeat level on 09/22-- 6.4g/d, will plan to transfuse 1 prbc with HD today. History of metastatic prostate CA Continue home Flomax Continue bicalutamide Management per oncology History of C diff colitis Lactic acidosis-resolved Completed therapy with PO metronidazole patient perviously declined vancomycin blood cultures negative Prophylaxis SCDs only, heparin contraindicated in the setting of acute blood loss anemia Protonix BID in the setting of GIB. Progress Note: Quality VTE Deep Vein Thrombosis/Pulmonary Embolism Present on Admission: No
[2018-09-22] MEDS ORDERED: Sodium Chlor 0.9% Inj 250 ML IV.SIG SCH (13:00)
--- NOTE | 2018-09-22 18:20 | ECG ---
Date Performed: 09/21/2018 Time Performed: 13:50:04 PTAGE: 63 years EKG: Sinus Bradycardia Prolonged QT interval Possible left anterior fascicular block Possible an teroseptal infarct - age undetermined Left ventricular hypertrophy Inferior/lateral ST-T changes are probably due to ventricular hypertrophy Abnormal ECG NO PREVIOUS TRACING DOCTOR: Raffi Garcia Interpretating Date/Time 09/22/2018 18:20:15
--- NOTE | 2018-09-22 20:49 | P.PNNP ---
Subjective Interval history: Patient is alert, no SOB, not in distress, no abd. pain. Physical Exam Vital signs: Vital Signs 09/21/18 23:11 09/22/18 00:00 09/22/18 02:57 Temperature 98.4 F 98.5 F Pulse Rate 81 62 57 L Respiratory Rate 19 19 Blood Pressure 128/54 L 112/52 L Pulse Oximetry 100 98 09/22/18 03:24 09/22/18 04:11 09/22/18 08:00 Temperature 98.7 F Pulse Rate 56 L 50 L Respiratory Rate 18 16 Blood Pressure 116/58 L Pulse Oximetry 09/22/18 12:00 09/22/18 14:24 09/22/18 15:30 Temperature 98.8 F 98.8 F 99.2 F Pulse Rate 50 L 54 L 56 L Respiratory Rate 16 19 19 Blood Pressure 88/55 L 110/57 L 120/65 Pulse Oximetry 99 99 09/22/18 16:00 09/22/18 20:00 Temperature 98.4 F Pulse Rate 53 L 55 L Respiratory Rate 16 Blood Pressure 118/57 L Pulse Oximetry 98 Intake & Output 09/22/18 09/22/18 09/23/18 06:59 18:59 06:59 Intake Total 200 / 200 1480 / 1480 Output Total 320 / 320 2200 / 2200 Balance -120 / -120 -720 / -720 Weight 65.4 kg Intake: Oral 200 / 200 680 / 680 Other 400 / 400 Rbc As-3 Leukoreduced Unit 400 / 400 [id number] Intake (Blood Product) Amt 400 / 400 Rbc As-3 Leukoreduced Unit 400 / 400 [id number] Output: Urine 320 / 320 200 / 200 Hemodialysis Amount 1999 Other: # Voids 1 3 Date of Last Bowel Movement 09/21/18 # Bowel Movements 1 Narrative: GENERAL: middle aged man, not in acute distress, appears thin HEENT:pale,anicteric NECK:no JVD, RIJ tunneled catheter in situ. CARDIOVASCULAR: Regular rate and rhythm without murmurs, gallops, or rubs. RESPIRATORY: Clear to auscultation. Breath sounds equal bilaterally. No wheezes , rales, or rhonchi. GASTROINTESTINAL: Abdomen soft, non-tender, nondistended. Normal active bowel sounds MUSCULOSKELETAL: Extremities without clubbing, cyanosis, or edema. Lt arm AV fistula with weak thrill. NEURO: Alert & Oriented x4 to person, place, time, situation. Moves all ext x4 Assessment and Plan - Assessment (1) End stage renal disease Code(s): N18.6 - End stage renal disease Status: Chronic Plan: HD MWF Has current right IJ catheter Left upper arm AVF with recent infiltration, pulsatile with possible outflow vein stenosis vs infiltration swelling. Allow AVF to rest, may re-evaluate as an outpatient. Post colonoscopy - multiple polyps, larger polyps removed Hgb. is low but stable, transfuse as needed On Epogen with dialysis Following with cardiology - post Cardiac Cayh. Cardiology follow up noted. metastatic prostate cancer. Hgb. is low, on Epogen and transfuse today with HD. Has multi vessel disease, but not a good candidate for CABG. Palliative care following. HD today, and to get transfusion with HD. Remove fluid as tolerated. (2) Anemia Code(s): D64.9 - Anemia, unspecified Status: Acute Qualifiers: Anemia type: due to chronic kidney disease Chronic kidney disease stage: on chronic dialysis Qualified Code(s): N18.6 - End stage renal disease; D63.1 - Anemia in chronic kidney disease; Z99.2 - Dependence on renal dialysis (3) Dyspnea Code(s): R06.00 - Dyspnea, unspecified Status: Acute Qualifiers: Dyspnea type: shortness of breath Qualified Code(s): R06.02 - Shortness of breath; R06.00 - Dyspnea, unspecified; R06.01 - Orthopnea (4) Prostate cancer metastatic to bone Code(s): C61 - Malignant neoplasm of prostate; C79.51 - Secondary malignant neoplasm of bone Status: Chronic - Plan Patient seen and examined, agree with above. HD done yesterday, awaiting placement.
[2018-09-23] MEDS: Pantoprazole Inj 40 MG Vial IV.PUSH SCH ×2 (02:38→14:30)
[2018-09-23] MEDS: amLODIPine 5 MG Tablet PO SCH (08:53)
[2018-09-23] MEDS: Metoprolol Tartrate 25 MG Tablet PO SCH ×2 (08:53→20:40)
[2018-09-23 09:50] LABS: Baso # (Auto) 0.1 th/mm3 (0.0-0.2); Eos % (Auto) 0.4 % (0.0-4.0); Lymph # (Auto) 2.2 th/mm3 (1.0-4.8); Lymph % (Auto) 33.9 % (9.0-44.0); Mean Corpuscular HGB Conc 33.3 % (32.0-36.0); Mean Corpuscular Hemoglobin 29.3 pg (27.0-34.0); Mean Corpuscular Volume 87.8 fL (80.0-100.0); Mono # (Auto) 0.5 th/mm3 (0.0-0.9); Mono % (Auto) 7.4 % (0.0-8.0); Neut # (Auto) 3.7 th/mm3 (1.8-7.7); Neut % (Auto) 57.3 % (16.0-70.0); Platelet Count 174 th/mm3 (150-450); Red Blood Count 2.36 mil/mm3 (4.50-5.90); Red Cell Distribution Width 19.4 % (11.6-17.2); White Blood Count 6.5 th/mm3 (4.0-11.0)
[2018-09-23 10:03] LABS: Hematocrit 20.7 % (39.0-51.0); Hemoglobin 6.9 gm/dL (13.0-17.0)
--- NOTE | 2018-09-23 12:00 | P.PNIM ---
Subjective Interval history: no complaints. Physical Exam Vital signs: Last Vital Signs Temp 99.1 F 09/23/18 08:48 Pulse 60 09/23/18 08:48 Resp 16 09/23/18 08:48 BP 124/68 09/23/18 08:48 Pulse Ox 98 09/23/18 09:18 Intake & Output 09/21/18 09/22/18 09/23/18 09/24/18 06:59 06:59 06:59 06:59 Intake Total 720 / 720 920 / 920 1701 / 1701 Output Total 900 / 900 545 / 545 2200 / 2200 Balance -180 / -180 375 / 375 -499 / -499 Weight 67.1 kg 65.4 kg Narrative: GENERAL: middle aged man, not in acute distress, appears thin HEENT:pale,anicteric NECK:no JVD, RIJ tunneled catheter in situ. CARDIOVASCULAR: Regular rate and rhythm without murmurs, gallops, or rubs. RESPIRATORY: Clear to auscultation. Breath sounds equal bilaterally. No wheezes , rales, or rhonchi. GASTROINTESTINAL: Abdomen soft, non-tender, nondistended. Normal active bowel sounds MUSCULOSKELETAL: Extremities without clubbing, cyanosis, or edema. Lt arm AV fistula with weak thrill. NEURO: Alert & Oriented x4 to person, place, time, situation. Moves all ext x4 Results Labs CBC & Chem 7: 09/23/18 09:42 09/22/18 05:50 Assessment and Plan Plan 63-year-old man with h/o ESRD on HD MWF schedule,Anemia, hypertension, prostate cancer, and resistant C. difficile who presented to the [place] ER c/o shortness of breath and cough.He was found to have a troponin of 2.31, hemoglobin of 6.8, stool with faintly positive occult blood, severe pitting lower extremity edema and a BNP greater than 5000. He was transferred to here for further mx. Evaluation found to have multivessel coronary artery disease, declined CABG. Multivessel coronary artery disease Non-ST elevation [place] Cardiothoracic consulted for evaluation for possible CABG--patient not good candidate Cardiology considered coronary stent for palliative relief to decrease angina [place], and CHF but patient declines any procedures at this time. Continue medical management with aspirin, beta fab, statin. Heparin is contraindicated in the setting of GI bleed Appreciate input from cardiology Dyspnea-Resolved Bilateral pleural effusions, right greater than left Incentive spirometer while awake Nebs scheduled and PRN Nicotine patch ESRD on HD--cont as per nephrology schedule. Acute hyperkalemia--resolved. Suspected recurrent GI bleed, likely lower EGD shows no significant source of bleed, Colonoscopy revealed multiple colon polyps. Some of the polyps were removed. GI recommendations appreciated Acute on chronic normocytic anemia secondary- chronic anemia likely due to ESRD acute anemia likely secondary to blood loss. Transfuse for hemoglobin less than 7- Hb low to 6.9 since 09/17,patient declining prbc transfusion. 09/19/18- Hb 7.4. repeat level on 09/22-- 6.4g/dl-->6.9. History of metastatic prostate CA Continue home Flomax Continue bicalutamide Management per oncology History of C diff colitis Lactic acidosis-resolved Completed therapy with PO metronidazole patient perviously declined vancomycin blood cultures negative Prophylaxis SCDs only, heparin contraindicated in the setting of acute blood loss anemia Protonix BID in the setting of GIB. Progress Note: Quality VTE Deep Vein Thrombosis/Pulmonary Embolism Present on Admission: No
--- NOTE | 2018-09-23 14:29 | P.PNNP ---
Subjective Interval history: No acute complaints Physical Exam Vital signs: Vital Signs 09/22/18 15:30 09/22/18 16:00 09/22/18 20:00 Temperature 99.2 F 98.4 F Pulse Rate 56 L 53 L 55 L Respiratory Rate 19 16 Blood Pressure 120/65 118/57 L Pulse Oximetry 99 98 09/22/18 21:06 09/23/18 00:00 09/23/18 04:00 Temperature 98.3 F 98.7 F Pulse Rate 52 L 60 Respiratory Rate 16 16 Blood Pressure 101/47 L 140/60 Pulse Oximetry 99 98 97 09/23/18 08:48 09/23/18 09:18 09/23/18 12:59 Temperature 99.1 F 98.6 F Pulse Rate 60 65 Respiratory Rate 16 16 Blood Pressure 124/68 121/56 L Pulse Oximetry 98 98 98 Intake & Output 09/22/18 09/23/18 09/23/18 18:59 06:59 18:59 Intake Total 1480 / 1480 221 / 221 Output Total 2200 / 2200 Balance -720 / -720 221 / 221 Intake: Oral 680 / 680 221 / 221 Other 400 / 400 Rbc As-3 Leukoreduced Unit 400 / 400 [id number] Intake (Blood Product) Amt 400 / 400 Rbc As-3 Leukoreduced Unit 400 / 400 [id number] Output: Urine 200 / 200 Hemodialysis Amount 1999 Other: # Voids 3 1 Date of Last Bowel Movement 09/21/18 09/21/18 09/21/18 - Constitutional no acute distress - Routine HEENT Exam Head: Present: normocephalic Eye: Present: EOMI ENT: Present: mucous membranes moist - Routine Neck Exam Present: supple - Routine Respiratory Exam Present: accessory muscle use - Routine Cardiovascular Exam Present: RRR - Routine Abdominal Exam Present: soft - Routine Skin Exam Present: intact - Routine Neurological Exam Present: alert, oriented X3 - Detailed Neurological Exam: Coma Scale Eye Opening: Spontaneous - Routine Psychiatric Exam Present: normal affect Assessment and Plan - Assessment (1) End stage renal disease Code(s): N18.6 - End stage renal disease Status: Chronic Plan: HD MWF Has current right IJ catheter Left upper arm AVF with recent infiltration, pulsatile with possible outflow vein stenosis vs infiltration swelling. Pulsatile access - may consider for angiogram as an outpatient. Following with cardiology - post Cardiac Cath. Cardiology follow up noted. metastatic prostate cancer. Hgb. is low, on Epogen and transfuse as needed with HD. HD done yesterday, hgb 6.9 today. Can further transfuse 2u PRBCs with HD Tuesday. Has multi vessel disease, but not a good candidate for CABG. Palliative care following. (2) Anemia Code(s): D64.9 - Anemia, unspecified Status: Acute Qualifiers: Anemia type: due to chronic kidney disease Chronic kidney disease stage: on chronic dialysis Qualified Code(s): N18.6 - End stage renal disease; D63.1 - Anemia in chronic kidney disease; Z99.2 - Dependence on renal dialysis (3) Dyspnea Code(s): R06.00 - Dyspnea, unspecified Status: Acute Qualifiers: Dyspnea type: shortness of breath Qualified Code(s): R06.02 - Shortness of breath; R06.00 - Dyspnea, unspecified; R06.01 - Orthopnea (4) Prostate cancer metastatic to bone Code(s): C61 - Malignant neoplasm of prostate; C79.51 - Secondary malignant neoplasm of bone Status: Chronic
[2018-09-24] MEDS: Pantoprazole Inj 40 MG Vial IV.PUSH SCH ×2 (01:40→13:31)
[2018-09-24] MEDS: Metoprolol Tartrate 25 MG Tablet PO SCH ×2 (09:05→20:58)
[2018-09-24] MEDS: amLODIPine 5 MG Tablet PO SCH (09:05)
--- NOTE | 2018-09-24 14:05 | P.PNIM ---
Subjective Interval history: patient has no complaints. Physical Exam Vital signs: Last Vital Signs Temp 98.6 F 09/24/18 13:26 Pulse 61 09/24/18 13:26 Resp 16 09/24/18 13:26 BP 123/65 09/24/18 13:26 Pulse Ox 97 09/24/18 13:26 Intake & Output 09/22/18 09/23/18 09/24/18 09/25/18 06:59 06:59 06:59 06:59 Intake Total 920 / 920 1701 / 1701 1080 / 1080 Output Total 545 / 545 2200 / 2200 275 / 275 Balance 375 / 375 -499 / -499 805 / 805 Weight 65.4 kg 64.9 kg Narrative: GENERAL: middle aged man, not in acute distress, appears thin HEENT:pale,anicteric NECK:no JVD, RIJ tunneled catheter in situ. CARDIOVASCULAR: Regular rate and rhythm without murmurs, gallops, or rubs. RESPIRATORY: Clear to auscultation. Breath sounds equal bilaterally. No wheezes , rales, or rhonchi. GASTROINTESTINAL: Abdomen soft, non-tender, nondistended. Normal active bowel sounds MUSCULOSKELETAL: Extremities without clubbing, cyanosis, or edema. Lt arm AV fistula with weak thrill. NEURO: Alert & Oriented x4 to person, place, time, situation. Moves all ext x4 Results Labs CBC & Chem 7: 09/23/18 09:42 09/22/18 05:50 Assessment and Plan Plan 63-year-old man with h/o ESRD on HD MWF schedule,Anemia, hypertension, prostate cancer, and resistant C. difficile who presented to the [place] ER c/o shortness of breath and cough.He was found to have a troponin of 2.31, hemoglobin of 6.8, stool with faintly positive occult blood, severe pitting lower extremity edema and a BNP greater than 5000. He was transferred to here for further mx. Evaluation found to have multivessel coronary artery disease, declined CABG. Multivessel coronary artery disease Non-ST elevation [place] Cardiothoracic consulted for evaluation for possible CABG--patient not good candidate Cardiology considered coronary stent for palliative relief to decrease angina [place], and CHF but patient declines any procedures at this time. Continue medical management with aspirin, beta fab, statin. Heparin is contraindicated in the setting of GI bleed Appreciate input from cardiology Dyspnea-Resolved Bilateral pleural effusions, right greater than left Incentive spirometer while awake Nebs scheduled and PRN Nicotine patch ESRD on HD--cont as per nephrology schedule. Acute hyperkalemia--resolved. Suspected recurrent GI bleed, likely lower EGD shows no significant source of bleed, Colonoscopy revealed multiple colon polyps. Some of the polyps were removed. GI recommendations appreciated Acute on chronic normocytic anemia secondary- chronic anemia likely due to ESRD Transfuse for hemoglobin less than 7- Hb low to 6.9 since 09/17,patient declining prbc transfusion. 09/19/18- Hb 7.4. repeat level on 09/22-- 6.4g/dl-->6.9 on 09/23 after 1prbc. can plan to repeat prbc transfusion on 09/25 during hemodialysis. History of metastatic prostate CA Continue home Flomax Continue bicalutamide Management per oncology History of C diff colitis Lactic acidosis-resolved Completed therapy with PO metronidazole patient perviously declined vancomycin blood cultures negative Prophylaxis SCDs only, heparin contraindicated in the setting of acute blood loss anemia Protonix BID in the setting of GIB. Progress Note: Quality VTE Deep Vein Thrombosis/Pulmonary Embolism Present on Admission: No
--- NOTE | 2018-09-24 20:28 | P.PNIM ---
Subjective Interval history: not seen Physical Exam Vital signs: Last Vital Signs Temp 98.5 F 09/24/18 16:00 Pulse 58 L 09/24/18 20:00 Resp 18 09/24/18 16:00 BP 127/77 09/24/18 16:00 Pulse Ox 97 09/24/18 16:00 Intake & Output 09/22/18 09/23/18 09/24/18 09/25/18 06:59 06:59 06:59 06:59 Intake Total 920 / 920 1701 / 1701 1080 / 1080 Output Total 545 / 545 2200 / 2200 275 / 275 350 / 350 Balance 375 / 375 -499 / -499 805 / 805 -350 / -350 Weight 65.4 kg 64.9 kg Narrative: GENERAL: middle aged man, not in acute distress, appears thin HEENT:pale,anicteric NECK:no JVD, RIJ tunneled catheter in situ. CARDIOVASCULAR: Regular rate and rhythm without murmurs, gallops, or rubs. RESPIRATORY: Clear to auscultation. Breath sounds equal bilaterally. No wheezes , rales, or rhonchi. GASTROINTESTINAL: Abdomen soft, non-tender, nondistended. Normal active bowel sounds MUSCULOSKELETAL: Extremities without clubbing, cyanosis, or edema. Lt arm AV fistula with weak thrill. NEURO: Alert & Oriented x4 to person, place, time, situation. Moves all ext x4 Results Labs CBC & Chem 7: 09/23/18 09:42 09/22/18 05:50 Imaging Imaging: ITS Impressions Chest X-Ray 09/03/18 12:05 CONCLUSION: Radiographic findings compatible with volume overload and pleural effusions. Pulmonary Perfusion Imaging 09/03/18 12:16 CONCLUSION: 1. No evidence for PE. Venous Doppler Study 09/03/18 12:16 CONCLUSION: 1. The study is negative for bilateral lower extremity deep venous thrombosis. Chest CT 09/03/18 14:44 CONCLUSION: 1. Widespread bony metastatic disease. 2. Moderate bilateral pleural effusions worse on the right. 3. Calcified left thyroid mass not changed since 2017. Procedures Procedures: EGD and Cscope cardiac cath Assessment and Plan Plan 63-year-old man with h/o ESRD on HD MWF schedule,Anemia, hypertension, prostate cancer, and resistant C. difficile who presented to the [place] ER c/o shortness of breath and cough.He was found to have a troponin of 2.31, hemoglobin of 6.8, stool with faintly positive occult blood, severe pitting lower extremity edema and a BNP greater than 5000. He was transferred to here for further mx. Evaluation found to have multivessel coronary artery disease, declined CABG. Multivessel coronary artery disease Non-ST elevation [place] Cardiothoracic consulted for evaluation for possible CABG--patient not good candidate Cardiology considered coronary stent for palliative relief to decrease angina [place], and CHF but patient declines any procedures at this time. Continue medical management with aspirin, beta fab, statin. Heparin is contraindicated in the setting of GI bleed Appreciate input from cardiology Dyspnea-Resolved Bilateral pleural effusions, right greater than left Incentive spirometer while awake Nebs scheduled and PRN Nicotine patch ESRD on HD--cont as per nephrology schedule. Acute hyperkalemia--resolved. Suspected recurrent GI bleed, likely lower EGD shows no significant source of bleed, Colonoscopy revealed multiple colon polyps. Some of the polyps were removed. GI recommendations appreciated Acute on chronic normocytic anemia secondary- chronic anemia likely due to ESRD Transfuse for hemoglobin less than 7- Hb low to 6.9 since 09/17,patient declining prbc transfusion. 09/19/18- Hb 7.4. repeat level on 09/22-- 6.4g/dl-->6.9 on 09/23 after 1prbc. can plan to repeat prbc transfusion on 09/25 during hemodialysis. History of metastatic prostate CA Continue home Flomax Continue bicalutamide Management per oncology History of C diff colitis Lactic acidosis-resolved Completed therapy with PO metronidazole patient perviously declined vancomycin blood cultures negative Prophylaxis SCDs only, heparin contraindicated in the setting of acute blood loss anemia Protonix BID in the setting of GIB. needs rehab Progress Note: Quality VTE Deep Vein Thrombosis/Pulmonary Embolism Present on Admission: No
[2018-09-25] MEDS ORDERED: Sodium Chlor 0.9% Inj 250 ML IV.SIG SCH (09:00)
--- NOTE | 2018-09-25 10:20 | P.PNONC ---
Subjective Interval history: Afebrile Patient currently getting dialysis on exam He is leery of receiving 2 units of packed red blood cells and only wants one for now States he feels continually weak with no appetite Wondering if he will be able to get over this hump Objective Vital Signs/Intake & Output: Vital Signs 09/24/18 11:01 09/24/18 12:00 09/24/18 13:26 Temperature 98.6 F Pulse Rate 57 L 61 Respiratory Rate 16 Blood Pressure 123/65 Pulse Oximetry 99 97 09/24/18 16:00 09/24/18 20:00 09/25/18 00:00 Temperature 98.5 F 98.5 F 98.5 F Pulse Rate 60 124 H 51 L Respiratory Rate 18 16 16 Blood Pressure 127/77 137/70 128/60 Pulse Oximetry 97 96 98 09/25/18 04:00 09/25/18 05:04 09/25/18 08:00 Temperature 98.2 F 98.4 F Pulse Rate 54 L 57 L Respiratory Rate 16 18 16 Blood Pressure 131/57 L 139/67 Pulse Oximetry 98 99 Intake & Output 09/24/18 09/25/18 09/25/18 18:59 06:59 18:59 Intake Total 240 / 240 Output Total 350 / 350 1225 / 1225 Balance -350 / -350 -985 / -985 Weight 139 lb 12.369 oz Intake: Oral 240 / 240 Output: Urine 350 / 350 225 / 225 Stool 0 / 0 Hemodialysis Amount 1000 / 1000 Other: Date of Last Bowel Movement 09/22/18 09/22/18 09/22/18 # Bowel Movements 0 0 Result Diagrams: 09/23/18 09:42 09/22/18 05:50 Laboratory Results: Laboratory Results - last 24 hr 09/22/18 09/25/18 05:50 09:06 Total Testosterone Less than 7.0 L Free Testosterone . Blood Type O Negative Antibody Screen Negative MTS Gel Crossmatch See Detail Bld Prod Order Comment Medications: Active Medications Generic Name Dose Route Start Last Admin Trade Name Freq PRN Reason Stop Dose Admin Amlodipine Besylate 5 mg 09/11/18 12:00 09/24/18 09:05 Norvasc PO Not Given DAILY CYNDIE Aspirin 81 mg 09/15/18 09:00 09/24/18 09:07 Aspirin Chew PO 81 mg DAILY CYNDIE Administration Atorvastatin Calcium 20 mg 09/13/18 21:00 09/24/18 20:57 Lipitor PO 20 mg HS CYNDIE Administration Bicalutamide 50 mg 09/21/18 17:00 09/24/18 09:06 Casodex PO 50 mg DAILY CYNDIE Administration Epoetin Hermes 10,000 unit 09/04/18 11:44 09/20/18 09:56 Epogen Inj IV.PUSH 10,000 unit UNSCH PRN Administration SEE LABEL COMMENTS Gentamicin Sulfate 20 mg 09/04/18 11:44 09/20/18 09:56 Gentamicin Inj OTHER 20 mg WITH DIALYSIS PRN Administration Dwell Gentamycin Lock Heparin Sodium (Porcine) 1,000 units 09/04/18 11:44 09/20/18 09:55 Heparin Inj OTHER 1,000 units WITH DIALYSIS PRN Administration Dwell Heparin to Fill Catheter Metoprolol Tartrate 12.5 mg 09/04/18 21:00 09/24/18 20:58 Lopressor PO 12.5 mg BID CYNDIE Administration Oxycodone/Acetaminophen 1 tab 09/03/18 16:50 09/25/18 03:49 Percocet 5/325 Mg PO 1 tab Q6H PRN Administration PAIN SCALE 1 TO 10 Pantoprazole Sodium 40 mg 09/24/18 21:00 09/24/18 21:24 Protonix PO 40 mg BID CYNDIE Administration Sodium Chloride 2 ml 09/03/18 14:56 09/22/18 02:55 Ns Flush IV.FLUSH 2 ml PRN PRN Administration FLUSH AFTER USING IV ACCESS Sodium Chloride 2 ml 09/03/18 21:00 09/24/18 20:59 Ns Flush IV.FLUSH 2 ml BID CYNDIE Administration Tamsulosin HCl 0.4 mg 09/04/18 09:00 09/20/18 08:28 Flomax PO 0.4 mg DAILY CYNDIE Administration Objective Remarks: GENERAL: Chronically ill-appearing, thin elderly gentleman, in no acute distress. SKIN: Pale, warm and dry. Tunneled catheter to right chest wall, drsg dry/ intact. HEAD: Normocephalic. EYES: No scleral icterus. No injection or drainage. NECK: Supple, trachea midline. CARDIOVASCULAR: Regular rate and rhythm without murmurs. RESPIRATORY: Breath sounds distant, equal bilaterally. Nonlabored at rest. GASTROINTESTINAL: Abdomen soft, non-tender, nondistended. EXTREMITIES: No cyanosis, or edema. MUSCULOSKELETAL: Decreased muscle tone. NEUROLOGICAL: No obvious focal deficit. Awake, alert, and oriented x3. Assessment/Plan - Plan Mr. Ross is a 63-year-old gentleman with metastatic prostate cancer. He initially presented with obstructive uropathy in 2016. He was placed on Lupron and Casodex. He had a magdiel and his PSA around the spring 2017. He reports not stopping his Casodex or his Lupron until May. His PSA trended up. His most recent PSA was 420. His course was complicated by a non-ST elevated myocardial infarction. He was declined for CABG. He also has a history of end- stage renal disease, on hemodialysis. Plan: 1. His PSA is noted to be trending down from 422 to 239. He is on single agent Casodex at present. He tells me today that he has no plans to initiate Lupron or Eligard upon discharge as these were very painful. His PSA will be repeated today. I discussed with him this will give us an indication depending on trend if single agent Casodex is working well. It is unclear if he was compliant at home with his Casodex prior to admission. 2. End-stage renal disease, management per nephrology. Attending has ordered 2 units packed red blood cells today. His last hemoglobin was 6.9 on 09/23. The patient reports he would only like 1 unit to be transfused. CBC will be repeated tomorrow morning. 3. I am requesting Nepro to be added to his meals as he has poor appetite. He states he has had these shakes at home and he reports he had more energy. I have encouraged him to continue to work hard with physical therapy and to try to increase his nutrition. 4. Continue supportive care - Attending Statement The exam, history, and the medical decision-making described in the above note were completed with the assistance of the mid-level provider. I reviewed and agree with the findings presented. I attest that I had a [id number] encounter with the patient on the same day, and personally performed and documented my assessment and findings in the medical record. Patient with fixed beliefs. Does not want Lupron or Eligard. He believes he was always taking the Casodex but he was not on it at the time of my consultation. Furthermore he reports having multiple bottles of Casodex at home suggesting questionable compliance. Tamsulosin is for his prostate cancer. He seems to be confused. He reports on the one hand a lot of toxicity to Lupron and Eligard. On the other hand he reports tolerating the Lupron well except for injection related toxicity. Then reports that the Eligard was the problem. He complains of muscle wasting. He does not want attributed to muscle wasting and cachexia to his metastatic prostate cancer. He attributes to muscle wasting and weakness to his cardiac issue. He had muscle wasting even before this current admission. We discussed the reality progressive disease on Casodex alone. Our options are limited since the other hormonal therapy for metastatic prostate cancer were given with GnRH analog, which he at this point refuses. However, he understands the nature of his refusal, and feels that he is being patronized when this subject is brought up. We have the option of adding ketoconazole with prednisone if he progressed that Casodex alone. PSA from today is pending. We will follow peripherally. He has poor performance status with poor prognosis.
[2018-09-25] MEDS: Heparin 10,000 UNITS/10 ML Vial (for IV use) OTHER PRN (11:38)
--- NOTE | 2018-09-25 13:26 | P.PNIM ---
Subjective Interval history: Follow-up anemia. Patient reports of being weak agrees with blood transfusion and rehab. Physical Exam Vital signs: Last Vital Signs Temp 98.7 F 09/25/18 11:15 Pulse 52 L 09/25/18 11:15 Resp 18 09/25/18 11:15 BP 146/64 H 09/25/18 11:15 Pulse Ox 99 09/25/18 08:00 Intake & Output 09/23/18 09/24/18 09/25/18 09/26/18 06:59 06:59 06:59 06:59 Intake Total 1701 / 1701 1080 / 1080 240 / 240 0 / 0 Output Total 2200 / 2200 275 / 275 1575 / 1575 Balance -499 / -499 805 / 805 -1335 / -1335 0 / 0 Weight 64.9 kg 63.4 kg Narrative: GENERAL: middle aged man, not in acute distress, appears thin HEENT:pale,anicteric NECK:no JVD, RIJ tunneled catheter in situ. CARDIOVASCULAR: Regular rate and rhythm without murmurs, gallops, or rubs. RESPIRATORY: Clear to auscultation. Breath sounds equal bilaterally. No wheezes , rales, or rhonchi. GASTROINTESTINAL: Abdomen soft, non-tender, nondistended. Normal active bowel sounds MUSCULOSKELETAL: Extremities without clubbing, cyanosis, or edema. Lt arm AV fistula with weak thrill. NEURO: Alert & Oriented x4 to person, place, time, situation. Moves all ext x4 Results Labs CBC & Chem 7: 09/23/18 09:42 09/22/18 05:50 Procedures Procedures: EGD and Cscope cardiac cath Assessment and Plan Plan 63-year-old man with h/o ESRD on HD MWF schedule,Anemia, hypertension, prostate cancer, and resistant C. difficile who presented to the [place] ER c/o shortness of breath and cough.He was found to have a troponin of 2.31, hemoglobin of 6.8, stool with faintly positive occult blood, severe pitting lower extremity edema and a BNP greater than 5000. He was transferred to here for further mx. Evaluation found to have multivessel coronary artery disease, declined CABG. Multivessel coronary artery disease Non-ST elevation ND Cardiothoracic consulted for evaluation for possible CABG--patient not good candidate Cardiology considered coronary stent for palliative relief to decrease angina ND, and CHF but patient declines any procedures at this time. Continue medical management with aspirin, beta fab, statin. Heparin is contraindicated in the setting of GI bleed Appreciate input from cardiology Dyspnea-Resolved Bilateral pleural effusions, right greater than left Incentive spirometer while awake Nebs scheduled and PRN Nicotine patch ESRD on HD--cont as per nephrology schedule. May need outpatient angiogram secondary to possible stenosis of the aVF Acute hyperkalemia--resolved. Suspected recurrent GI bleed, likely lower EGD shows no significant source of bleed, Colonoscopy revealed multiple colon polyps. Some of the polyps were removed. GI recommendations appreciated Acute on chronic normocytic anemia secondary-symptomatic Chronic anemia likely due to ESRD Transfuse for hemoglobin less than 7- Hb low to 6.9 since 09/17,patient declining prbc transfusion. 09/19/18- Hb 7.4. repeat level on 09/22-- 6.4g/dl-->6.9 on 09/23 after 1prbc. Agrees with blood transfusion Repeat CBC in the morning History of metastatic prostate CA Continue home Flomax Continue bicalutamide Management per oncology History of C diff colitis Lactic acidosis-resolved Completed therapy with PO metronidazole patient perviously declined vancomycin blood cultures negative Prophylaxis SCDs only, heparin contraindicated in the setting of acute blood loss anemia Protonix BID in the setting of GIB. needs rehab possibly in the morning Progress Note: Quality VTE Deep Vein Thrombosis/Pulmonary Embolism Present on Admission: No
--- NOTE | 2018-09-25 14:29 | P.PNNP ---
Subjective Interval history: Seen during hemodialysis, tolerating well. Plan to transfuse PRBC's. <Yris Delong - Last Filed: 09/25/18 14:24> Physical Exam Vital signs: Vital Signs 09/24/18 16:00 09/24/18 20:00 09/25/18 00:00 Temperature 98.5 F 98.5 F 98.5 F Pulse Rate 60 124 H 51 L Respiratory Rate 18 16 16 Blood Pressure 127/77 137/70 128/60 Pulse Oximetry 97 96 98 09/25/18 04:00 09/25/18 05:04 09/25/18 08:00 Temperature 98.2 F 98.4 F Pulse Rate 54 L 65 Respiratory Rate 16 18 16 Blood Pressure 131/57 L 139/67 Pulse Oximetry 98 99 09/25/18 10:50 09/25/18 11:15 Temperature 98.7 F 98.7 F Pulse Rate 65 52 L Respiratory Rate 18 18 Blood Pressure 133/64 146/64 H Pulse Oximetry Intake & Output 09/24/18 09/25/18 09/25/18 18:59 06:59 18:59 Intake Total 240 / 240 0 / 0 Output Total 350 / 350 1225 / 1225 Balance -350 / -350 -985 / -985 0 / 0 Weight 63.4 kg Intake: Oral 240 / 240 Intake (Blood Product) Amt 0 / 0 Rbc As-3 Leukoreduced Unit 0 / 0 [id number] Output: Urine 350 / 350 225 / 225 Stool 0 / 0 Hemodialysis Amount 1000 / 1000 Other: Date of Last Bowel Movement 09/22/18 09/22/18 09/22/18 # Bowel Movements 0 0 Narrative: GENERAL: NAD, A&Ox3 HEAD: Normocephalic. NECK: Supple, trachea midline. CARDIOVASCULAR: Regular rate and rhythm without murmurs, gallops, or rubs. right IJ permacath. Left arm AVF with positive thrill and bruit. Bruising present. RESPIRATORY: Breath sounds equal bilaterally. No accessory muscle use. GASTROINTESTINAL: Abdomen soft, non-tender, nondistended. +BS MUSCULOSKELETAL: No cyanosis, or edema. SKIN: Warm and dry. <Yris Delong - Last Filed: 09/25/18 14:24> Vital signs: Vital Signs 09/25/18 00:00 09/25/18 04:00 09/25/18 05:04 Temperature 98.5 F 98.2 F Pulse Rate 51 L 54 L Respiratory Rate 16 16 18 Blood Pressure 128/60 131/57 L Pulse Oximetry 98 98 09/25/18 08:00 09/25/18 10:50 09/25/18 11:15 Temperature 98.4 F 98.7 F 98.7 F Pulse Rate 65 65 52 L Respiratory Rate 16 18 18 Blood Pressure 139/67 133/64 146/64 H Pulse Oximetry 99 09/25/18 12:00 09/25/18 16:00 Temperature 98.6 F 98.1 F Pulse Rate 60 60 Respiratory Rate 16 16 Blood Pressure 152/67 H 136/74 Pulse Oximetry 95 98 Intake & Output 09/25/18 09/25/18 09/26/18 06:59 18:59 06:59 Intake Total 240 / 240 480 / 480 Output Total 1225 / 1225 1400 / 1400 Balance -985 / -985 -920 / -920 Weight 63.4 kg Intake: Oral 240 / 240 480 / 480 Intake (Blood Product) Amt 0 / 0 Rbc As-3 Leukoreduced Unit 0 / 0 [id number] Output: Urine 225 / 225 400 / 400 Stool 0 / 0 Hemodialysis Amount 1000 / 1000 1000 / 1000 Other: Date of Last Bowel Movement 09/22/18 09/22/18 # Bowel Movements 0 <Dakota Roger Q - Last Filed: 09/25/18 20:47> Assessment and Plan - Assessment (1) End stage renal disease Code(s): N18.6 - End stage renal disease Status: Chronic Plan: HD MWF Has current right IJ catheter Left upper arm AVF with recent infiltration, pulsatile with possible outflow vein stenosis vs infiltration swelling. Pulsatile access - may consider for angiogram as an outpatient. Following with cardiology - post Cardiac Cath. Cardiology follow up noted. metastatic prostate cancer. Hgb. is low, on Epogen, plan to transfuse PRBC today. Seen during hemodialysis tolerating well, with UF of 1 liter Plan for Rehab (2) Anemia Code(s): D64.9 - Anemia, unspecified Status: Acute Qualifiers: Anemia type: due to chronic kidney disease Chronic kidney disease stage: on chronic dialysis Qualified Code(s): N18.6 - End stage renal disease; D63.1 - Anemia in chronic kidney disease; Z99.2 - Dependence on renal dialysis (3) Dyspnea Code(s): R06.00 - Dyspnea, unspecified Status: Acute Qualifiers: Dyspnea type: shortness of breath Qualified Code(s): R06.02 - Shortness of breath; R06.00 - Dyspnea, unspecified; R06.01 - Orthopnea (4) Prostate cancer metastatic to bone Code(s): C61 - Malignant neoplasm of prostate; C79.51 - Secondary malignant neoplasm of bone Status: Chronic <Yris Delong - Last Filed: 09/25/18 14:24> - Assessment (1) End stage renal disease Code(s): N18.6 - End stage renal disease Status: Chronic Plan: Patient seen and examine during HD, agree with above. Transfused during HD, follow the Hgb. HD as per schedule, on Epogen with HD. (2) Anemia Code(s): D64.9 - Anemia, unspecified Status: Acute Qualifiers: Anemia type: due to chronic kidney disease Chronic kidney disease stage: on chronic dialysis Qualified Code(s): N18.6 - End stage renal disease; D63.1 - Anemia in chronic kidney disease; Z99.2 - Dependence on renal dialysis (3) Dyspnea Code(s): R06.00 - Dyspnea, unspecified Status: Acute Qualifiers: Dyspnea type: shortness of breath Qualified Code(s): R06.02 - Shortness of breath; R06.00 - Dyspnea, unspecified; R06.01 - Orthopnea (4) Prostate cancer metastatic to bone Code(s): C61 - Malignant neoplasm of prostate; C79.51 - Secondary malignant neoplasm of bone Status: Chronic <Vance Roger - Last Filed: 09/25/18 20:47>
[2018-09-25] MEDS: Metoprolol Tartrate 25 MG Tablet PO SCH ×2 (17:55→22:14)
[2018-09-25] MEDS: amLODIPine 5 MG Tablet PO SCH (17:55)
[2018-09-26 03:59] VITALS: O2SAT 99
[2018-09-26 05:27] LABS: Free PSA/PSA Ratio 0 ratio
[2018-09-26 05:41] LABS: Baso # (Auto) 0.1 th/mm3 (0.0-0.2); Eos % (Auto) 0.7 % (0.0-4.0); Hematocrit 28.8 % (39.0-51.0); Hemoglobin 9.7 gm/dL (13.0-17.0); Lymph # (Auto) 3.1 th/mm3 (1.0-4.8); Lymph % (Auto) 42.8 % (9.0-44.0); Mean Corpuscular HGB Conc 33.7 % (32.0-36.0); Mean Corpuscular Hemoglobin 29.4 pg (27.0-34.0); Mean Corpuscular Volume 87.4 fL (80.0-100.0); Mean Platelet Volume 7.3 fL (7.0-11.0); Mono # (Auto) 0.5 th/mm3 (0.0-0.9); Mono % (Auto) 7.1 % (0.0-8.0); Neut # (Auto) 3.5 th/mm3 (1.8-7.7); Neut % (Auto) 48.4 % (16.0-70.0); Platelet Count 185 th/mm3 (150-450); Red Blood Count 3.29 mil/mm3 (4.50-5.90); Red Cell Distribution Width 17.8 % (11.6-17.2); White Blood Count 7.3 th/mm3 (4.0-11.0)
[2018-09-26 06:11] LABS: Carbon Dioxide 31.8 meq/L (21.0-32.0); Potassium 3.2 meq/L (3.5-5.1)
[2018-09-26] MEDS: amLODIPine 5 MG Tablet PO SCH ×2 (09:05→12:23)
[2018-09-26] MEDS: Metoprolol Tartrate 25 MG Tablet PO SCH (09:05)
[2018-09-26 13:16] VITALS: BP 136/68; PULSE 58; RESP 20; TEMP 98.5
--- NOTE | 2018-09-26 15:35 | P.DS ---
DS: Providers Date of admission: 09/03/18 15:08 Primary care physician: No Primary Care Physician Consults: 09/03/18 14:45 Consult to Cardiology Routine Consulting Provider: Raffi Garcia Does the patient have a Carroting Machine Offbearer who follows them?: No Preferred Presto Log Operator:: Security Checker Physician Reason for Consultation: positive trop Notified:: Service Spoke with:: ONI Date Notified:: 09/03/18 Time Notified:: 14:52 Ordering Provider: DESTINEE 09/03/18 15:03 Consult to Gastroenterology Routine Consulting Provider: Samson Colon Reason for Consultation: Anemia GIB Notified:: Service Spoke with:: laura Date Notified:: 09/03/18 Time Notified:: 15:19 Ordering Provider: GALINDO Consult to Nephrology Routine Consulting Provider: Vance Roger Does the patient have a Mathematics Education Professor who follows them?: Yes Preferred Nephrology Cylinder Devalver:: Karena Duval Reason for Consultation: ESRD on HD Notified:: Service Spoke with:: PEÑA Date Notified:: 09/03/18 Time Notified:: 15:22 Ordering Provider: GALINDO 09/03/18 18:39 Consult to Palliative Care Routine Consulting Provider: Phoenix Sanders Reason for Consultation: History of metastatic prostate CA, recurrent GIB, NSTEMI Notified:: Service Spoke with:: LAURA Date Notified:: 09/03/18 Time Notified:: 18:42 Ordering Provider: UBALDO 09/05/18 14:35 Consult to Hospitalist Routine Consulting Provider: Salo Galan Reason for Consultation: Patient noted with GI bleed, elevated troponins history of prostate cancer. Hemodynamically stable. Notified:: Service Spoke with:: Marta Date Notified:: 09/05/18 Time Notified:: 15:13 Comments:: Ordering Provider: MERCEDEZ 09/11/18 09:51 Consult to Cardiothoracic Surgery Routine Consulting Provider: Hao Trivedi Reason for Consultation: Multivessel CAD Notified:: Physician Spoke with:: /ATUL Date Notified:: 09/11/18 Time Notified:: 10:50 Ordering Provider: OLEGARIO 09/11/18 14:34 Consult to Oncology Routine Consulting Provider: Susan Garcia Reason for Consultation: preop risk stratification for CABG pt with hx of prostate cancer with bony mets Notified:: Service Spoke with:: Caty Date Notified:: 09/11/18 Time Notified:: 15:05 Ordering Provider: FEDERICO Brief History from admission: 63yM presenting to [facility] ED today with several days of dyspnea both on rest and on exertion and palpitations. The patient states that he's been having shortness of breath for the past several days but came to the ED this afternoon because he was unable to catch his breath. He was found to have a hemoglobin of 6.2 and NSTEMI with troponin of 11.7. He also had a potassium of 5.6 without EKG changes concerning for acute hyperkalemia. Consults were placed with cardiology/ nephrology/ gastroenterology and transferred to the main campus for ICU level of care, GI evaluation/ possible cardiology intervention if needed. 2U PRBCs are ordered for transfusion. History of ESRD on HD , last dialyzed 2 days ago, lead electrical engineer is Dr. Duval. The patient was admitted to our institution in 07/2018 for similar symptoms, found to have guaiac positive stool but declined endoscopy/ colonoscopy at that time. He has also been treated for C diff colitis with PO flagyl x several weeks, reports no bloody/ black/ tarry stools or diarrhea currently. DS: Summary 63-year-old man with h/o ESRD on HD MWF schedule,Anemia, hypertension, prostate cancer, and resistant C. difficile who presented to the [facility] ER c/o shortness of breath and cough.He was found to have a troponin of 2.31, hemoglobin of 6.8, stool with faintly positive occult blood, severe pitting lower extremity edema and a BNP greater than 5000. He was transferred to here for further mx. Evaluation found to have multivessel coronary artery disease, declined CABG. Multivessel coronary artery disease. Currently pain-free Non-ST elevation AL Cardiothoracic consulted for evaluation for possible CABG--patient not good candidate Cardiology considered coronary stent for palliative relief to decrease angina AL, and CHF but patient declines any procedures at this time. Continue medical management with aspirin, beta fab, statin. Heparin is contraindicated in the setting of GI bleed Appreciate input from cardiology Dyspnea-Resolved Bilateral pleural effusions, right greater than left Incentive spirometer while awake Nebs scheduled and PRN Nicotine patch ESRD on HD--cont as per nephrology schedule. May need outpatient angiogram secondary to possible stenosis of the aVF Acute hyperkalemia--resolved. Suspected recurrent GI bleed, likely lower EGD shows no significant source of bleed, Colonoscopy revealed multiple colon polyps. Some of the polyps were removed. GI recommendations appreciated Acute on chronic normocytic anemia secondary-symptomatic Chronic anemia likely due to ESRD Transfuse for hemoglobin less than 7- Improved with blood transfusion History of metastatic prostate CA Continue home Flomax Continue bicalutamide Management per oncology Consult regarding narcotics. [place] Prescription Drug Monitoring Database has been queried and verified prior to prescribing the controlled subsection. Patient is having significant pain caused by [metastatic prostate cancer] which will last more than 3 days. Trial of alternative treatment options other than prescribed opioids has not helped. I believe that it is medically necessary to treat the patients pain because it is affecting patients ability to [do ADL]. History of C diff colitis Lactic acidosis-resolved Completed therapy with PO metronidazole patient perviously declined vancomycin blood cultures negative Prophylaxis SCDs only, heparin contraindicated in the setting of acute blood loss anemia Time Spent with Patient Total time spent providing and/or coordinating discharge services: Quality: VTE Deep Vein Thrombosis/Pulmonary Embolism Present on Admission: No Exam Narrative Exam Narrative: GENERAL: middle aged man, not in acute distress, appears thin HEENT:pale,anicteric NECK:no JVD, RIJ tunneled catheter in situ. CARDIOVASCULAR: Regular rate and rhythm without murmurs, gallops, or rubs. RESPIRATORY: Clear to auscultation. Breath sounds equal bilaterally. No wheezes , rales, or rhonchi. GASTROINTESTINAL: Abdomen soft, non-tender, nondistended. Normal active bowel sounds MUSCULOSKELETAL: Extremities without clubbing, cyanosis, or edema. Lt arm AV fistula with weak thrill. NEURO: Alert & Oriented x4 to person, place, time, situation. Moves all ext x4 Results Completed studies during hospitalization: Pending at discharge 09/05/18 12:27 Surgical [PTH] Routine 09/07/18 13:55 Surgical [PTH] Routine Labs on day of discharge: Labs from last 24 hours 09/26/18 09/26/18 09/25/18 04:18 04:18 14:05 WBC 7.3 RBC 3.29 L Hgb 9.7 L Hct 28.8 L MCV 87.4 MCH 29.4 MCHC 33.7 RDW 17.8 H Plt Count 185 MPV 7.3 Neut % (Auto) 48.4 Lymph % (Auto) 42.8 Waller % (Auto) 7.1 Eos % (Auto) 0.7 Baso % (Auto) 1.0 Neut # (Auto) 3.5 Lymph # (Auto) 3.1 Waller # (Auto) 0.5 Eos # (Auto) 0.0 Baso # (Auto) 0.1 WBC Differential . Differential Comment Auto diff final Sodium 137 Potassium 3.2 L Chloride 99 Carbon Dioxide 31.8 Anion Gap 6 BUN 14 Creatinine 2.79 H Estimated GFR 23 L Random Glucose 82 Calcium 8.0 L Free PSA Greater than 18.0 Total PSA 196.0 H PSA Free/Total Ratio 0 Impressions ITS Impressions Chest X-Ray 09/03/18 12:05 CONCLUSION: Radiographic findings compatible with volume overload and pleural effusions. Pulmonary Perfusion Imaging 09/03/18 12:16 CONCLUSION: 1. No evidence for PE. Venous Doppler Study 09/03/18 12:16 CONCLUSION: 1. The study is negative for bilateral lower extremity deep venous thrombosis. Chest CT 09/03/18 14:44 CONCLUSION: 1. Widespread bony metastatic disease. 2. Moderate bilateral pleural effusions worse on the right. 3. Calcified left thyroid mass not changed since 2017. Discharge Plan Discharge Disposition Patient Disposition: 03 Discharge to SNF Discharge Condition Condition: Stable Discharge Order Discharge Orders: Discharge Order (Routine); Ordered 09/26/18 Ordered By: Morris Hollis Physicians Team ED Provider: Fiona Calixto Primary Care Provider: Primary Care Bhavani Yip Attending Provider: Morris Hollis Other Providers: Raffi Garcia ; Samson Colon ; Vance Roger ; Phoenix Sanders ; Hao Trivedi ; Susan Garcia Rxs /Orders / Referrals /Forms Prescriptions: New oxycodone-acetaminophen 5-325 mg Tablet 1 tab PO Q6H PRN (Reason: Pain Scale 1 To 10) Qty: 12 RF: 0 amlodipine [Norvasc] 5 mg Tablet 5 mg PO DAILY 30 Days Qty: 30 RF: 0 aspirin 81 mg Tablet,Chewable 81 mg PO DAILY Qty: 30 RF: 0 metoprolol tartrate 25 mg Tablet 12.5 mg PO BID Qty: 30 RF: 0 atorvastatin 20 mg Tablet 20 mg PO HS Qty: 30 RF: 0 pantoprazole 40 mg Tablet,Delayed Release (Dr/Ec) 40 mg PO BID Qty: 60 RF: 0 Continue bicalutamide 50 mg Tablet 50 mg PO HS RF: 0 tamsulosin [Flomax] 0.4 mg Capsule 0.4 mg PO DAILY RF: 0 Discontinued metronidazole 500 mg Tablet 500 mg PO Q8HR Qty: 30 RF: 0 oxycodone-acetaminophen [Endocet] 10-325 mg tablet 1 tab PO Q6H Qty: 120 RF: 0 Referrals: Vance Roger MD [Physician] - See Instructions (Follow-up in 1 week) Raffi Garcia MD [Physician] - See Instructions Primary Care Bhavani Yip [Primary Care Provider] - See Instructions (Follow-up PCP in 1 week) Susan Garcia MD [Physician] - See Instructions (Follow-up in 1 week) Discharge Instructions Patient Printed Instructions: Colonoscopy (DC) Post Discharge Care Plan Care Plan Goals: Your Health Problems: Goals to Promote Your Health: * To prevent worsening of your condition * To maintain your health at the optimal level Directions to Meet Your Goals: * Take your medications as prescribed * Follow your dietary instruction * Follow activity as directed * Keep your appointments as scheduled * Take your immunizations and boosters as scheduled * If your symptoms worsen call your PCP * If no PCP go to Urgent Care or Emergency Room Smoking is dangerous to your health. Avoid second hand smoke. You may reach the 24-hour crisis hotline for domestic abuse at . Status ED Status: Left Department
--- NOTE | 2018-09-26 16:28 | P.PNNP ---
Subjective Interval history: Resting comfortably without complaints. Denies any shortness of breath, nausea , vomiting, or diarrhea. Discharge plans underway. <Yris Delong - Last Filed: 09/26/18 16:23> Physical Exam Vital signs: Vital Signs 09/25/18 20:00 09/26/18 00:00 09/26/18 03:57 Temperature 98.3 F 98.2 F Pulse Rate 56 L 50 L 53 L Respiratory Rate 16 16 16 Blood Pressure 142/77 H 136/63 140/66 Pulse Oximetry 96 98 99 09/26/18 04:00 09/26/18 08:00 09/26/18 12:00 Temperature 99.0 F 98.5 F Pulse Rate 62 60 58 L Respiratory Rate 16 20 Blood Pressure 128/71 136/68 Pulse Oximetry 99 99 Intake & Output 09/25/18 09/26/18 09/26/18 18:59 06:59 18:59 Intake Total 480 / 480 240 / 240 Output Total 1400 / 1400 375 / 375 Balance -920 / -920 -135 / -135 Weight 63.6 kg Intake: Oral 480 / 480 240 / 240 Intake (Blood Product) Amt 0 / 0 Rbc As-3 Leukoreduced Unit 0 / 0 [id number] Output: Urine 400 / 400 375 / 375 Hemodialysis Amount 1000 / 1000 Other: # Voids 1 Date of Last Bowel Movement 09/22/18 09/22/18 Narrative: GENERAL:Alert and oriented. SKIN: Warm and dry. NECK:no JVD, RIJ tunneled catheter in situ. CARDIOVASCULAR: Regular rate and rhythm without murmurs, gallops, or rubs. RESPIRATORY: Clear to auscultation. Breath sounds equal bilaterally. No wheezes , rales, or rhonchi. GASTROINTESTINAL: Abdomen soft, non-tender, nondistended. Normal active bowel sounds MUSCULOSKELETAL: Extremities without clubbing, cyanosis, or edema. Lt arm AV fistula with weak thrill. NEURO: Alert & Oriented x4 to person, place, time, situation. Moves all ext x4 <Yris Delong - Last Filed: 09/26/18 16:23> Vital signs: Vital Signs 09/26/18 00:00 09/26/18 03:57 09/26/18 04:00 Temperature 98.3 F 98.2 F Pulse Rate 50 L 53 L 62 Respiratory Rate 16 16 Blood Pressure 136/63 140/66 Pulse Oximetry 98 99 09/26/18 08:00 09/26/18 12:00 Temperature 99.0 F 98.5 F Pulse Rate 60 58 L Respiratory Rate 16 20 Blood Pressure 128/71 136/68 Pulse Oximetry 99 99 Intake & Output 09/26/18 09/26/18 09/27/18 06:59 18:59 06:59 Intake Total 240 / 240 Output Total 375 / 375 Balance -135 / -135 Weight 63.6 kg Intake: Oral 240 / 240 Output: Urine 375 / 375 Other: # Voids 1 Date of Last Bowel Movement 09/22/18 <Vance Roger - Last Filed: 09/26/18 21:19> Assessment and Plan - Assessment (1) End stage renal disease Code(s): N18.6 - End stage renal disease Status: Chronic Plan: ESRD on HD on M/W/F Has current right IJ catheter Left upper arm AVF with recent infiltration, pulsatile with possible outflow vein stenosis vs infiltration swelling. Pulsatile access - may consider for angiogram as an outpatient. Hgb. improved, status post transfusion Epogen with dialysis. Hemodialysis yesterday with removal of 1 liter of fluid. Plan for Rehab Dr. Duval to follow tomorrow if patient is not discharged. (2) Anemia Code(s): D64.9 - Anemia, unspecified Status: Acute Qualifiers: Anemia type: due to chronic kidney disease Chronic kidney disease stage: on chronic dialysis Qualified Code(s): N18.6 - End stage renal disease; D63.1 - Anemia in chronic kidney disease; Z99.2 - Dependence on renal dialysis (3) Dyspnea Code(s): R06.00 - Dyspnea, unspecified Status: Acute Qualifiers: Dyspnea type: shortness of breath Qualified Code(s): R06.02 - Shortness of breath; R06.00 - Dyspnea, unspecified; R06.01 - Orthopnea (4) Prostate cancer metastatic to bone Code(s): C61 - Malignant neoplasm of prostate; C79.51 - Secondary malignant neoplasm of bone Status: Chronic <Yris Delong - Last Filed: 09/26/18 16:23> - Assessment (1) End stage renal disease Code(s): N18.6 - End stage renal disease Status: Chronic Plan: Patient with end stage renal disease and HD due in AM. For discharge, transfused yesterday. To continue HD as out patient. (2) Anemia Code(s): D64.9 - Anemia, unspecified Status: Acute Qualifiers: Anemia type: due to chronic kidney disease Chronic kidney disease stage: on chronic dialysis Qualified Code(s): N18.6 - End stage renal disease; D63.1 - Anemia in chronic kidney disease; Z99.2 - Dependence on renal dialysis (3) Dyspnea Code(s): R06.00 - Dyspnea, unspecified Status: Acute Qualifiers: Dyspnea type: shortness of breath Qualified Code(s): R06.02 - Shortness of breath; R06.00 - Dyspnea, unspecified; R06.01 - Orthopnea (4) Prostate cancer metastatic to bone Code(s): C61 - Malignant neoplasm of prostate; C79.51 - Secondary malignant neoplasm of bone Status: Chronic <Vance Roger - Last Filed: 09/26/18 21:19>
== END 2018-09-26 17:35 | DRG 280 ==
LOC: PHED 11:56 → PHEDA 15:08 → HIMC 17:30 → N04 09-07 16:03 → HCIS 09-11 09:27 → HCIN 09-15 13:42
PROVIDERS: ADMIT Internal Medicine; ATTEND Internal Medicine
DX: N17.9 Acute kidney failure, unspecified; K63.5 Polyp of colon; E87.2 Acidosis; F17.210 Nicotine dependence, cigarettes, uncomplicated; Z51.5 Encounter for palliative care; E78.5 Hyperlipidemia, unspecified; D63.1 Anemia in chronic kidney disease; I13.2 Hypertensive heart and chronic kidney disease with heart failure and with stage 5 chronic kidney disease, or end stage renal disease; C79.51 Secondary malignant neoplasm of bone; Z80.42 Family history of malignant neoplasm of prostate; E87.5 Hyperkalemia; I50.22 Chronic systolic (congestive) heart failure; E87.6 Hypokalemia; Z99.2 Dependence on renal dialysis; A04.72 Enterocolitis due to Clostridium difficile, not specified as recurrent; I21.A1 Myocardial infarction type 2; M25.552 Pain in left hip; M25.562 Pain in left knee; Z88.8 Allergy status to other drugs, medicaments and biological substances; E07.9 Disorder of thyroid, unspecified; D62 Acute posthemorrhagic anemia; K29.71 Gastritis, unspecified, with bleeding; M25.551 Pain in right hip; Z87.442 Personal history of urinary calculi; N18.6 End stage renal disease; Z79.899 Other long term (current) drug therapy; Z82.3 Family history of stroke; Z16.24 Resistance to multiple antibiotics; Z88.0 Allergy status to penicillin; C61 Malignant neoplasm of prostate; G89.3 Neoplasm related pain (acute) (chronic); I25.119 Atherosclerotic heart disease of native coronary artery with unspecified angina pectoris
CPT/HCPCS: 36430; 36550; 36593; 36600; 71010; 71045; 71250; 78582; 80048; 80053; 80061; 82040; 82550; 82552; 82805; 82948; 82962; 83605; 83735; 84100; 84153; 84154; 84402; 84403; 84484; 85014; 85018; 85025; 85027; 85384; 85610; 85730; 86850; 86900; 86901; 86923; 87040; 87275; 87276; 87641; 87804; 88305; 88312; 90765; 90774; 90775; 90784; 90935; 93005; 93306; 93454; 93970; 94150; 94640; 94664; 94665; 96365; 96374; 96375; 97110; 97162; 97530; 99283; 99291; A9519; A9540; A9567; C1094; C1769; C1893; C8952; C9113; J0886; J1580; J1644; J2370; J2405; J2543; J2704; J2997; J3010; P9016; Q4055; Q4081; Q9967

== ENCOUNTER 2018-10-26 16:08 | Inpatient (IN) ==
[2018-10-26] MEDS ORDERED: Acetaminophen 650 MG Supp RECTAL ONE (16:45)
--- NOTE | 2018-10-26 16:55 | ED ---
HPI General Chief Complaint: Altered Mental Status Stated Complaint: AMS Time Seen by Provider: 10/26/18 16:26 Source: EMS Mode of arrival: EMS Limitations: altered mental status History of Present Illness HPI narrative: The patient is a 63-year-old male who presents to the emergency department via EMS from the half-way for altered mental status. According to EMS the family noted the patient was slightly altered yesterday, when they saw the patient today they noted that the altered mental status had progressed. EMS states that the patient's baseline mentally reveals that the patient is awake, alert, and oriented. Upon arrival the patient will open his eyes to his name, but does not respond to verbal commands or follow directions. EMS states the patient does have a history of dialysis, goes on Mondays, Wednesdays, and Fridays. According to EMS the patient missed dialysis yesterday , per their report he "refused ". The patient does not follow commands or offer any insight into his illness. MD complaint: Reports altered mental status Onset (ago): day(s) Timing confirmed by: family member, caregiver and other Severity: moderate Consistency of symptoms: getting worse and constant Context: Reports unknown Related Data Home Medications Medication Instructions Recorded Confirmed bicalutamide 50 mg PO HS 07/09/18 09/03/18 tamsulosin [Flomax] 0.4 mg PO DAILY 07/09/18 09/03/18 Previous Rx's Medication Instructions Recorded aspirin 81 mg PO DAILY #30 tab 09/26/18 atorvastatin 20 mg PO HS #30 tab 09/26/18 metoprolol tartrate 12.5 mg PO BID #30 tab 09/26/18 oxycodone-acetaminophen 1 tab PO Q6H PRN #12 tab 09/26/18 Allergies Allergy/AdvReac Type Severity Reaction Status Date / Time Tetanus Vaccines and Toxoid Allergy Severe Fever Verified 10/26/18 16:41 amoxicillin AdvReac Mild Nausea/Vomi Verified 10/26/18 16:41 ting Review of Systems ROS Unobtainable ROS Unobtainable: unobtainable due to mental status PMFSH Medical History Medical History Acute renal failure (Acute) Acute renal failure on dialysis (Acute) Anemia (Acute) Dyspnea (Acute) Fistula (Acute) Hypertension (Acute) Kidney stone (Acute) MDRO (multiple drug resistant organisms) resistance (Acute ~07/19/18) Prostate CA (Acute) Sepsis (Acute) Vascular dialysis catheter in place (Acute) Surgical History Surgical History AV fistula (Acute) H/O major orthopedic surgery (Acute) Family History Family History Mother Pneumonia Father CVA (cerebral vascular accident) Grandparent Prostate cancer Social History Social History Substance History: Unable to Obtain Second Hand Smoke Exposure: Yes Smoking Status: Cognitive impairment Tobacco Type: Cigarettes How Often Do You Have a Drink Containing Alcohol: Unable to Obtain Recent Travel in [facility] within the Last 8 Weeks: No Recent Out of Country Travel within the Last 8 Weeks: No Exam Narrative Exam Narrative: GENERAL: 63-year-old male who appears older than his stated age. Patient opens his eyes to name, but does not respond to questions or follow commands. SKIN: Warm to the touch. HEAD: Atraumatic. Normocephalic. EYES: Pupils equal and round. 3 mm bilateral and reactive. ENT: No nasal bleeding or discharge. Dry mucous membranes. NECK: Trachea midline. No JVD. CARDIOVASCULAR: Regular rate and rhythm. No murmur appreciated. Heart rate in the 80s. RESPIRATORY: No accessory muscle use. Rhonchi in the bases. GASTROINTESTINAL: Abdomen soft, non-tender, nondistended. No distention or rebound tenderness. Genitourinary: Circumcised phallus, no visible erythema of the phallus or scrotum. Wet diaper with yellow urine was noted on exam. MUSCULOSKELETAL: AV fistula left upper extremity with dressings in place. Positive thrill. Positive murmur. Back: Stage I sacral decubitus ulcer noted that measures approximately 12 cm x 10 cm. NEUROLOGICAL: Opens eyes to name, but does not verbalize or follow commands. PSYCHIATRIC: Unable to obtain. Course Initial Documented Vital Signs Temperature 101.0 F H 10/26/18 16:33 Pulse Rate 80 10/26/18 16:33 Respiratory Rate 16 10/26/18 16:33 Blood Pressure 115/53 L 10/26/18 16:33 Pulse Oximetry 95 02/07/19 16:33 Last Documented Vital Signs Temperature 101.0 F H 10/26/18 16:33 Pulse Rate 66 10/26/18 18:00 Respiratory Rate 16 10/26/18 18:00 Blood Pressure 112/50 L 10/26/18 18:00 Pulse Oximetry 96 10/26/18 18:00 Medical Decision Making MDM Narrative Medical decision making narrative: IV was established, labs are drawn and sent, and the patient was placed on cardiac telemetry monitoring and continuous pulse oximetry monitoring. EKG was ordered and interpreted. Chest x-ray was obtained. CT of the brain was obtained. Lactic acid and blood cultures were sent to lab. Cath UA was sent to lab. Lactic acid and blood culture was sent to lab and the patient received Tylenol 650 mg suppository and was placed on maintenance IV fluids. I did review the EMR, it appears to the previous admission and consultation note that the patient is followed by the director of volunteer services , Dr. Duval, but has also seen Dr. Bonilla and Dr. Roger while in the hospital. Chest x-ray reveals a left lower lobe pneumonia, patient was covered for healthcare acquired pneumonia with cefepime and Zithromax. UTI also reveals WBCs, could be chronic for patient is on dialysis, however, he still makes urine , only started dialysis over the summertime. Cefepime should cover until cultures are obtained. Blood cultures are pending. Patient's white count is normal, hemoglobin was 6.9, type and screen was ordered. Patient's potassium was 5.0, BUN 37, creatinine 4.40, patient will need nephrology consultation for dialysis. The patient has altered mental status, pneumonia, UTI, will be admitted for altered mental status and delirium secondary to infection. The patient's physician at the half-way is Dr. Borrego, [facility] Medical Screen Exam Complete: Yes Emergency Medical Condition: Yes Differential Diagnosis Differential Diagnosis: Differential diagnosis includes sepsis, pneumonia, UTI, azotemia, ESRD on HD, subdural hemorrhage, bacteremia, septicemia, delirium. Lab Data Result diagrams: 10/26/18 17:00 10/26/18 17:00 Lab Results 10/26/18 10/26/18 10/26/18 Range/Units 17:00 17:00 17:00 CBC w Diff Slide review pending WBC 8.2 (4.0-11.0) th/mm3 RBC 2.30 L (4.50-5.90) mil/mm3 Hgb 6.9 L* (13.0-17.0) gm/dL Hct 21.5 L (39.0-51.0) % MCV 93.3 (80.0-100.0) fL MCH 29.8 (27.0-34.0) pg MCHC 32.0 (32.0-36.0) % RDW 21.7 H (11.6-17.2) % Plt Count 189 (150-450) th/mm3 MPV 7.1 (7.0-11.0) fL Neut % (Auto) 56.3 (16.0-70.0) % Lymph % (Auto) 32.5 (9.0-44.0) % Clinch % (Auto) 6.4 (0.0-8.0) % Eos % (Auto) 0.1 (0.0-4.0) % Baso % (Auto) 4.7 H (0.0-2.0) % Neut # (Auto) 4.6 (1.8-7.7) th/mm3 Lymph # (Auto) 2.7 (1.0-4.8) th/mm3 Clinch # (Auto) 0.5 (0.0-0.9) th/mm3 Eos # (Auto) 0.0 (0.0-0.4) th/mm3 Baso # (Auto) 0.4 H (0.0-0.2) th/mm3 WBC Differential . Diff Scan Auto diff confirmed Differential Comment . Tear Drop Cells 1+ H (None) Ovalocytes 1+ H (None) Keratocytes Occ H (None) PT 14.3 H (9.8-11.6) sec INR 1.4 Ratio APTT 38.7 H (23.4-31.7) sec Sodium 138 (136-145) meq/L Potassium 5.0 (3.5-5.1) meq/L Chloride 106 (98-107) meq/L Carbon Dioxide 23.3 (21.0-32.0) meq/L Anion Gap 9 (5-15) meq/L BUN 37 H (7-18) mg/dL Creatinine 4.40 H (0.60-1.30) mg/dL Estimated GFR 14 L (>89) mL/min Random Glucose 114 H (74-106) mg/dL Lactic Acid (0.4-2.0) mmol/L Calcium 7.7 L (8.5-10.1) mg/dL Magnesium 1.8 (1.5-2.5) mg/dL Total Bilirubin 0.7 (0.2-1.0) mg/dL AST 22 (15-37) U/L ALT 7 L (12-78) U/L Alkaline Phosphatase 2249 H (45-117) U/L Ammonia (11-32) mcmol/L Total Creatine Kinase (39-308) U/L Troponin I 0.05 (0.02-0.05) ng/mL Total Protein 5.5 L (6.4-8.2) g/dL Albumin 2.1 L (3.4-5.0) g/dL TSH 0.935 (0.358-3.740) uIU/mL Ur Collection Type Urine Color (Yellw/Straw) Urine Clarity (Clear) Urine pH (5.0-8.5) Ur Specific [place] (1.002-1.035) Urine Protein (Neg-Trace) mg/dL Urine Glucose (UA) (Negative) mg/dL Urine Ketones (Negative) mg/dL Urine Occult Blood (Negative) Urine Nitrate (Negative) Urine Bilirubin (Negative) Urine Urobilinogen (Less than 2) mg/dL Ur Leukocyte Esterase (Negative) Urine RBC (0-3) /hpf Urine WBC (0-5) /hpf Urine WBC Clumps (None) Urine Bacteria (None) /hpf Micro UA Comment Ur Microscopic Review Urine Culture Comments 10/26/18 10/26/18 10/26/18 Range/Units 17:00 17:00 17:00 CBC w Diff WBC (4.0-11.0) th/mm3 RBC (4.50-5.90) mil/mm3 Hgb (13.0-17.0) gm/dL Hct (39.0-51.0) % MCV (80.0-100.0) fL MCH (27.0-34.0) pg MCHC (32.0-36.0) % RDW (11.6-17.2) % Plt Count (150-450) th/mm3 MPV (7.0-11.0) fL Neut % (Auto) (16.0-70.0) % Lymph % (Auto) (9.0-44.0) % Clinch % (Auto) (0.0-8.0) % Eos % (Auto) (0.0-4.0) % Baso % (Auto) (0.0-2.0) % Neut # (Auto) (1.8-7.7) th/mm3 Lymph # (Auto) (1.0-4.8) th/mm3 Clinch # (Auto) (0.0-0.9) th/mm3 Eos # (Auto) (0.0-0.4) th/mm3 Baso # (Auto) (0.0-0.2) th/mm3 WBC Differential Diff Scan Differential Comment Tear Drop Cells (None) Ovalocytes (None) Keratocytes (None) PT (9.8-11.6) sec INR Ratio APTT (23.4-31.7) sec Sodium (136-145) meq/L Potassium (3.5-5.1) meq/L Chloride (98-107) meq/L Carbon Dioxide (21.0-32.0) meq/L Anion Gap (5-15) meq/L BUN (7-18) mg/dL Creatinine (0.60-1.30) mg/dL Estimated GFR (>89) mL/min Random Glucose (74-106) mg/dL Lactic Acid 0.8 (0.4-2.0) mmol/L Calcium (8.5-10.1) mg/dL Magnesium (1.5-2.5) mg/dL Total Bilirubin (0.2-1.0) mg/dL AST (15-37) U/L ALT (12-78) U/L Alkaline Phosphatase (45-117) U/L Ammonia 47 H (11-32) mcmol/L Total Creatine Kinase 82 (39-308) U/L Troponin I (0.02-0.05) ng/mL Total Protein (6.4-8.2) g/dL Albumin (3.4-5.0) g/dL TSH (0.358-3.740) uIU/mL Ur Collection Type Urine Color (Yellw/Straw) Urine Clarity (Clear) Urine pH (5.0-8.5) Ur Specific [place] (1.002-1.035) Urine Protein (Neg-Trace) mg/dL Urine Glucose (UA) (Negative) mg/dL Urine Ketones (Negative) mg/dL Urine Occult Blood (Negative) Urine Nitrate (Negative) Urine Bilirubin (Negative) Urine Urobilinogen (Less than 2) mg/dL Ur Leukocyte Esterase (Negative) Urine RBC (0-3) /hpf Urine WBC (0-5) /hpf Urine WBC Clumps (None) Urine Bacteria (None) /hpf Micro UA Comment Ur Microscopic Review Urine Culture Comments 10/26/18 Range/Units 17:50 CBC w Diff WBC (4.0-11.0) th/mm3 RBC (4.50-5.90) mil/mm3 Hgb (13.0-17.0) gm/dL Hct (39.0-51.0) % MCV (80.0-100.0) fL MCH (27.0-34.0) pg MCHC (32.0-36.0) % RDW (11.6-17.2) % Plt Count (150-450) th/mm3 MPV (7.0-11.0) fL Neut % (Auto) (16.0-70.0) % Lymph % (Auto) (9.0-44.0) % Clinch % (Auto) (0.0-8.0) % Eos % (Auto) (0.0-4.0) % Baso % (Auto) (0.0-2.0) % Neut # (Auto) (1.8-7.7) th/mm3 Lymph # (Auto) (1.0-4.8) th/mm3 Clinch # (Auto) (0.0-0.9) th/mm3 Eos # (Auto) (0.0-0.4) th/mm3 Baso # (Auto) (0.0-0.2) th/mm3 WBC Differential Diff Scan Differential Comment Tear Drop Cells (None) Ovalocytes (None) Keratocytes (None) PT (9.8-11.6) sec INR Ratio APTT (23.4-31.7) sec Sodium (136-145) meq/L Potassium (3.5-5.1) meq/L Chloride (98-107) meq/L Carbon Dioxide (21.0-32.0) meq/L Anion Gap (5-15) meq/L BUN (7-18) mg/dL Creatinine (0.60-1.30) mg/dL Estimated GFR (>89) mL/min Random Glucose (74-106) mg/dL Lactic Acid (0.4-2.0) mmol/L Calcium (8.5-10.1) mg/dL Magnesium (1.5-2.5) mg/dL Total Bilirubin (0.2-1.0) mg/dL AST (15-37) U/L ALT (12-78) U/L Alkaline Phosphatase (45-117) U/L Ammonia (11-32) mcmol/L Total Creatine Kinase (39-308) U/L Troponin I (0.02-0.05) ng/mL Total Protein (6.4-8.2) g/dL Albumin (3.4-5.0) g/dL TSH (0.358-3.740) uIU/mL Ur Collection Type Cath Urine Color Yellow (Yellw/Straw) Urine Clarity Clear (Clear) Urine pH 8.5 (5.0-8.5) Ur Specific [place] 1.010 (1.002-1.035) Urine Protein 30 H (Neg-Trace) mg/dL Urine Glucose (UA) Negative (Negative) mg/dL Urine Ketones Negative (Negative) mg/dL Urine Occult Blood Small H (Negative) Urine Nitrate Negative (Negative) Urine Bilirubin Negative (Negative) Urine Urobilinogen 0.2 (Less than 2) mg/dL Ur Leukocyte Esterase Large H (Negative) Urine RBC 4-15 H (0-3) /hpf Urine WBC 51-189 H (0-5) /hpf Urine WBC Clumps Few H (None) Urine Bacteria Few H (None) /hpf Micro UA Comment Cath-culture ind Ur Microscopic Review Microscopic reviewed Urine Culture Comments Cath-cult indicated Imaging Data Radiologist's impression: Chest X-Ray 10/26/18 16:35 CONCLUSION: 1. Mild infiltrate in the left lung base. 2. Otherwise, the rest the lung marinelli are grossly clear. Head CT 10/26/18 16:35 CONCLUSION: 1. Unremarkable CT brain for patient's age. . ECG Data EKG Prior to Arrival: No Attestation: I personally reviewed and interpreted this ECG as follows: Interpretation: EKG reveals sinus rhythm with occasional supraventricular premature complex. Inverted T waves noted in lead V4 and V5 as well as aVL. Q wave in lead III. Discharge Plan Discharge Disposition Patient Disposition: ED Admit(ED Internal Use Only) Discharge Condition Condition: Stable Discharge Order Discharge Orders: ED Use Only Admit Order (Routine); Ordered 10/26/18 Ordered By: Wellington Gomez Discharge Details Diagnosis: Pneumonia, Anemia, Acute UTI (urinary tract infection), Delirium, Acute alteration in mental status, Chronic kidney disease Physicians Team ED Provider: Wellington Gomez Primary Care Provider: UNKNOWN, Rxs /Orders / Referrals /Forms Prescriptions: No Action bicalutamide 50 mg Tablet 50 mg PO HS RF: 0 tamsulosin [Flomax] 0.4 mg Capsule 0.4 mg PO DAILY RF: 0 atorvastatin 20 mg Tablet 20 mg PO HS Qty: 30 RF: 0 oxycodone-acetaminophen 5-325 mg Tablet 1 tab PO Q6H PRN (Reason: Pain Scale 1 To 10) Qty: 12 RF: 0 aspirin 81 mg Tablet,Chewable 81 mg PO DAILY Qty: 30 RF: 0 metoprolol tartrate 25 mg Tablet 12.5 mg PO BID Qty: 30 RF: 0 Discharge Interventions Interventions: Vital Signs Last Done: 10/26/18 18:00 Status ED Status: Admitted Observation Patient
--- NOTE | 2018-10-26 17:05 | XR ---
EXAM DATE: 10/26/2018 4:58 PM EST AGE/SEX: 63 years / Male INDICATIONS: Fever. CLINICAL DATA: This is the patient's initial encounter. Patient reports that signs and symptoms have been present for 1 day and indicates a pain score of Nonresponsive. MEDICAL/SURGICAL HISTORY: . Renal failure, acute. Anemia. Hypertension. Sepsis. Prostate cancer . Renal stone. Fistula. Dyspnea . Orthopedic surgery. [id number], central line for dialysis. COMPARISON: [facility], CHEST 1V SINGLE AP, 08/13/2018. [facility], CHEST 1V SINGLE AP, 09/03/2018. . FINDINGS: The right lung is grossly clear. There appears to be a mild infiltrate in the left lung base. Otherwi se the rest the lungs are grossly clear. The heart size is mildly enlarged but stable compared to the prior study. The bony structures are stable. No significant pleural effusions. No evidence of pulmon jacob edema. Stable calcified mass along the left paratracheal margin. CONCLUSION: 1. Mild infiltrate in the left lung base. 2. Otherwise, the rest the lung marinelli are grossly clear. Electronically signed by: Jl Sinha MD Board Certified Radiologist 10/26/2018 5:04 PM EST
[2018-10-26] MEDS ORDERED: Azithromycin Inj 500 MG in Sodium Chlor 0.9% Inj 250 ML IV.SIG ONE (17:17)
[2018-10-26 17:18] LABS: Baso # (Auto) 0.4 th/mm3 (0.0-0.2); Baso % (Auto) 4.7 % (0.0-2.0); Eos % (Auto) 0.1 % (0.0-4.0); Hematocrit 21.5 % (39.0-51.0); Lymph # (Auto) 2.7 th/mm3 (1.0-4.8); Lymph % (Auto) 32.5 % (9.0-44.0); Mean Corpuscular Hemoglobin 29.8 pg (27.0-34.0); Mean Corpuscular Volume 93.3 fL (80.0-100.0); Mean Platelet Volume 7.1 fL (7.0-11.0); Mono # (Auto) 0.5 th/mm3 (0.0-0.9); Mono % (Auto) 6.4 % (0.0-8.0); Neut # (Auto) 4.6 th/mm3 (1.8-7.7); Neut % (Auto) 56.3 % (16.0-70.0); Platelet Count 189 th/mm3 (150-450); Red Cell Distribution Width 21.7 % (11.6-17.2); White Blood Count 8.2 th/mm3 (4.0-11.0)
[2018-10-26] MEDS: Sod Chloride 0.9% Inj 1,000 ML IV.CONT SCH (17:21)
[2018-10-26 17:24] LABS: Hemoglobin 6.9 gm/dL (13.0-17.0)
[2018-10-26 17:26] LABS: Chloride 106 meq/L (98-107); Sodium 138 meq/L (136-145)
[2018-10-26 17:29] LABS: Calcium 7.7 mg/dL (8.5-10.1)
[2018-10-26 17:30] LABS: Albumin 2.1 g/dL (3.4-5.0); Anion Gap 9 meq/L (5-15); Blood Urea Nitrogen 37 mg/dL (7-18); Carbon Dioxide 23.3 meq/L (21.0-32.0); Glucose,Random 114 mg/dL (74-106); Magnesium 1.8 mg/dL (1.5-2.5)
[2018-10-26 17:33] LABS: Activated Partial Thrombo Time 38.7 sec (23.4-31.7); Alanine Aminotransferase 7 U/L (12-78); Aspartate Aminotransferase 22 U/L (15-37); Glomerular Filtration Rate 14 mL/min (>89); INR 1.4 Ratio; Prothrombin Time 14.3 sec (9.8-11.6)
[2018-10-26 17:34] LABS: Total Protein 5.5 g/dL (6.4-8.2)
[2018-10-26 17:38] LABS: Troponin I 0.05 ng/mL (0.02-0.05)
--- NOTE | 2018-10-26 17:40 | CT ---
EXAM DATE: 10/26/2018 5:32 PM EST AGE/SEX: 63 years / Male INDICATIONS: Altered mental status. CLINICAL DATA: This is the patient's initial encounter. Patient reports that signs and symptoms have been present for 1 day and indicates a pain score of 0/10. MEDICAL/SURGICAL HISTORY: Renal failure, acute. Carcinoma, prostatic. Renal calculi. Hypertensio n. None. RADIATION DOSE: 56.12 CTDI (mGy) COMPARISON: No prior exams available for comparison. TECHNIQUE: CT of the head without contrast. Using automated exposure control and adjustment of the mA and/or kV according to patient size, radiation dose was kept as low as reasonably achievable to ob tain optimal diagnostic quality images. DICOM format image data is available electronically for revi ew and comparison. FINDINGS: Cerebrum: The ventricles are normal for age. Mild bilateral cortical atrophy. No evidence of midline shift, mass lesion, hemorrhage or acute infarction. No extraaxial fluid collections are seen. Posterior Fossa: The cerebellum and brainstem are intact. The 4th ventricle is midline. The cerebe llopontine angle is unremarkable. Extracranial: The visualized portion of the orbits is intact. Skull: The calvaria is intact. No evidence of skull fracture. CONCLUSION: 1. Unremarkable CT brain for patient's age. . Electronically signed by: Jl Sinha MD Board Certified Radiologist 10/26/2018 5:39 PM EST
[2018-10-26 17:44] LABS: Thyroid Stimulating Hormone 0.935 uIU/mL (0.358-3.740)
[2018-10-26 17:46] LABS: Alkaline Phosphatase 2249 U/L (45-117)
[2018-10-26 17:59] LABS: Bilirubin,Urine Negative (Negative); Clarity,Urine Clear (Clear); Color,Urine Yellow (Yellw/Straw); Glucose,Urine (UA) Negative (Negative); Leukocyte Esterase,Urine Large (Negative); Nitrite,Urine Negative (Negative); PH,Urine 8.5 (5.0-8.5); Urobilinogen,Urine 0.2 mg/dL (Less than 2)
[2018-10-26 18:04] LABS: Ovalocytes 1+; Tear Drop Cells 1+
[2018-10-26 18:08] LABS: Bacteria,Urine Few /hpf; WBC,Urine 51-189 /hpf (0-5)
[2018-10-26] MEDS ORDERED: Bisacodyl 10 MG Supp RECTAL PRN (18:50)
[2018-10-26] MEDS ORDERED: Sodium Chlor 0.9% Inj 250 ML IV.SIG SCH (19:00)
[2018-10-26] MEDS ORDERED: Aztreonam Inj 2 GM in Sodium Chloride 0.9% Inj 100 ML IV.SIG SCH (19:00)
[2018-10-26] MEDS ORDERED: Gelatin 12 MM/7 MM Topical Foam TOPICAL PRN (22:56)
[2018-10-26] MEDS ORDERED: Sod Chloride 0.9% Inj 1,000 ML OTHER PRN ×2 (22:56)
[2018-10-26] MEDS ORDERED: Sod Chloride 0.9% Inj 1,000 ML IV.CONT PRN (22:56)
[2018-10-26] MEDS ORDERED: Heparin 10,000 UNITS/10 ML Vial (for IV use) OTHER PRN (22:56)
[2018-10-26] MEDS ORDERED: Acetaminophen 325 MG Tablet PO PRN (22:56)
[2018-10-27] MEDS: Sod Chloride 0.9% Inj 1,000 ML IV.CONT SCH ×2 (03:08→18:08)
[2018-10-27 06:51] LABS: Baso # (Auto) 0.2 th/mm3 (0.0-0.2); Baso % (Auto) 2.2 % (0.0-2.0); Eos % (Auto) 0.1 % (0.0-4.0); Hematocrit 24.2 % (39.0-51.0); Hemoglobin 8.1 gm/dL (13.0-17.0); Lymph # (Auto) 3.5 th/mm3 (1.0-4.8); Lymph % (Auto) 41.7 % (9.0-44.0); Mean Corpuscular HGB Conc 33.2 % (32.0-36.0); Mean Corpuscular Hemoglobin 30.2 pg (27.0-34.0); Mean Corpuscular Volume 90.9 fL (80.0-100.0); Mean Platelet Volume 6.9 fL (7.0-11.0); Mono # (Auto) 0.4 th/mm3 (0.0-0.9); Mono % (Auto) 4.8 % (0.0-8.0); Neut # (Auto) 4.4 th/mm3 (1.8-7.7); Neut % (Auto) 51.2 % (16.0-70.0); Platelet Count 175 th/mm3 (150-450); Red Blood Count 2.67 mil/mm3 (4.50-5.90); Red Cell Distribution Width 18.5 % (11.6-17.2); White Blood Count 8.5 th/mm3 (4.0-11.0)
[2018-10-27 06:54] LABS: Potassium 4.9 meq/L (3.5-5.1)
[2018-10-27 07:01] LABS: Calcium 8.1 mg/dL (8.5-10.1)
[2018-10-27 07:02] LABS: Carbon Dioxide 21.1 meq/L (21.0-32.0)
[2018-10-27 10:17] LABS: % Iron Saturation 45.7 % (20-50)
--- NOTE | 2018-10-27 10:58 | P.CONNP ---
History of Present Illness Service: Nephrology Consult date: 10/27/18 Requesting Physician: Morris Hollis Reason for Consult: ESRD management Primary Care Provider: UNKNOWN History of Present Illness: 63-year-old male, stage IV terminal prostate cancer, ESRD, missed his dialysis and came in with altered mental status, patient is more alert he said he missed 1 day, he has lost a lot of weight he has bone pain and leg pain which is controlled with pain medication, He goes on dialysis on Tuesday, Tuesday and Tuesday His PSA was 196 in September 2018 Alkaline phosphate 2249. Review of Systems Constitutional: Reports anorexia, Reports body ache(s), Reports weight loss Eyes: Denies blind spots, Denies blurry vision, Denies bulging eyes, Denies change in vision, Denies double vision, Denies discharge, Denies dry eyes, Denies floaters, Denies irritation, Denies itchy eyes, Denies loss of vision, Denies pain, Denies requires corrective lenses, Denies sensitivity to light, Denies other Ears, Nose, Mouth, and Throat: Denies abnormal hearing, Denies bleeding gums, Denies bad breath, Denies change in voice, Denies dental pain, Denies difficulty swallowing, Denies dizziness, Denies dry mouth, Denies ear discharge , Denies ear pain, Denies facial pain, Denies headache(s), Denies hearing loss, Denies hoarseness, Denies lip swelling, Denies nosebleed, Denies mouth lesions, Denies mouth pain, Denies nasal congestion, Denies nasal discharge, Denies nasal obstruction, Denies nasal trauma, Denies neck lump, Denies neck pain, Denies nose pain, Denies pain with swallowing, Denies poor balance, Denies post nasal drip, Denies ringing in the ears, Denies sinus pain, Denies sinus pressure , Denies sore throat, Denies throat swelling, Denies tongue swelling, Denies other Cardiovascular: Reports shortness of breath with activity Respiratory: Reports shortness of breath Gastrointestinal: Reports change in stools, Reports nausea Genitourinary: Reports other (Prostate cancer) Musculoskeletal: Reports decreased muscle mass, Reports limited joint movement Skin/Breast: Reports dry skin Neurologic: Reports weakness Psychiatric: Reports confusion, Reports depression, Reports hopelessness, Reports irritability Endocrine: Reports other Hematologic/Lymphatic: Reports other Allergic/Immunologic: Denies GI upset with certain foods, Denies hives, Denies itchy eyes, Denies lip swelling, Denies seasonal runny nose, Denies throat swelling, Denies tongue swelling, Denies wheezing, Denies other PMFSH - History History Provided By: Family Member - Medical History Medical History: Medical History (Last Reviewed 10/27/18 @ 10:55 by Karena Duval MD) Acute renal failure Acute renal failure on dialysis Anemia Dyspnea Fistula Hypertension Kidney stone MDRO (multiple drug resistant organisms) resistance Onset Date: ~07/19/18 Prostate CA Sepsis Vascular dialysis catheter in place - Surgical History Surgical History: Surgical History (Last Reviewed 10/27/18 @ 10:55 by Karena Duval MD) AV fistula H/O major orthopedic surgery - Family History Family History: Family History (Last Reviewed 10/26/18 @ 16:52 by Wellington Gomez MD) Mother Pneumonia Father CVA (cerebral vascular accident) Grandparent Prostate cancer - Tobacco History Second Hand Smoke Exposure: No Smoking Status: Former smoker Tobacco Type: Cigarettes - Alcohol History How Often Do You Have a Drink Containing Alcohol: Never - Substance Use History Substance History: No History of Abuse - Travel History Recent Travel in the [place] Within the Last 8 Weeks: No Recent Travel Out of the Country Within the Last 8 Weeks: No - Immunization History Tetanus Immunization: Unsure Hx Influenza Vaccine This Season: No Medications and Allergies Active Medications: Active Medications Acetaminophen (Tylenol) 650 mg PO Q4H PRN PRN Reason: Temp > 100.4 Acetaminophen (Tylenol) 650 mg PO UNSCH PRN PRN Reason: SEE LABEL COMMENTS Albuterol (Duoneb Neb (Prn)) 1 ampul NEB Q4HR NEB PRN PRN Reason: SHORTNESS OF BREATH/WHEEZING Bisacodyl (Dulcolax Supp) 10 mg RECTAL DAILY PRN PRN Reason: SEVERE CONSITIPATION Clonidine HCl (Catapres) 0.1 mg PO UNSCH PRN PRN Reason: SEE LABEL COMMENTS Diphenhydramine HCl (Benadryl) 25 mg PO UNSCH PRN PRN Reason: SEE LABEL COMMENTS Epoetin Hermes (Epogen Inj) 10,000 unit IV.PUSH UNSCH PRN PRN Reason: SEE LABEL COMMENTS Gelatin (Gelfoam 12 Mm/7 Mm Topical) 1 foam TOPICAL PRN PRN PRN Reason: help stop bleeding from site Gentamicin Sulfate (Gentamicin Inj) 20 mg OTHER WITH DIALYSIS PRN PRN Reason: Dwell Gentamycin Lock Heparin Sodium (Porcine) (Heparin Inj) 8,000 units OTHER WITH DIALYSIS PRN PRN Reason: for machine prime Heparin Sodium (Porcine) (Heparin Inj) 1,000 units OTHER WITH DIALYSIS PRN PRN Reason: Dwell Heparin to Fill Catheter Sodium Chloride (Ns Inj) 1,000 mls @ 30 mls/hr IV.CONT .Q24H [facility] Last Admin: 10/27/18 03:08 Dose: 125 mls/hr Azithromycin 500 mg/ Sodium (Chloride) 250 mls @ 250 mls/hr IV.SIG Q24H [facility] Sodium Chloride (Ns Inj) 250 mls @ 15 mls/hr IV.SIG ONCE [facility] Stop: 10/27/18 11:39 Last Admin: 10/26/18 21:53 Dose: 15 mls/hr Aztreonam 1,000 mg/ Sodium (Chloride) 100 mls @ 200 mls/hr IV.SIG Q8H [facility] Last Infusion: 10/27/18 04:05 Dose: Infused Albumin Human (Flexbumin 25% Inj) 100 mls @ 60 mls/hr IV.SIG WITH DIALYSIS PRN PRN Reason: hypotension / volume replace Sodium Chloride (Ns Inj) 1,000 mls @ 0 mls/hr OTHER .Q0M PRN PRN Reason: for prime and rinse back Sodium Chloride (Ns Inj) 1,000 mls @ 200 mls/hr OTHER .Q5H PRN PRN Reason: for dialyzer flush PRN Sodium Chloride (Ns Inj) 1,000 mls @ 0 mls/hr IV.CONT .Q0M PRN PRN Reason: hypotension / volume replace Lactulose (Lactulose Liq) 30 ml PO BID [facility] Last Admin: 10/27/18 10:10 Dose: 30 ml Lactulose (Lactulose Liq) 30 ml PO DAILY PRN PRN Reason: SEVERE CONSITIPATION Mannitol (Mannitol Inj) 12.5 gm IV.PUSH UNSCH PRN PRN Reason: hypotension / volume replace Nitroglycerin (Nitrostat Sl) 0.4 mg SL Q5M PRN PRN Reason: CHEST PAIN Ondansetron HCl (Zofran Inj) 4 mg IV.PUSH Q6H PRN PRN Reason: NAUSEA OR VOMITING Ondansetron HCl (Zofran Inj) 4 mg IV.PUSH UNSCH PRN PRN Reason: NAUSEA OR VOMITING Sennosides (Senokot) 17.2 mg PO Q12H PRN PRN Reason: Moderate Constipation Sodium Chloride (Ns Flush) 2 ml IV.FLUSH PRN PRN PRN Reason: FLUSH AFTER USING IV ACCESS Sodium Chloride (Ns Flush) 5 ml IV.FLUSH PRN PRN PRN Reason: flush each lumen during HD Allergies Allergy/AdvReac Type Severity Reaction Status Date / Time Tetanus Vaccines and Toxoid Allergy Severe Fever Verified 10/26/18 16:41 amoxicillin AdvReac Mild Nausea/Vomi Verified 10/26/18 16:41 ting Home Medications Medication Instructions Recorded Confirmed Type bicalutamide 50 mg PO HS 07/09/18 10/26/18 History tamsulosin [Flomax] 0.4 mg PO DAILY 07/09/18 10/26/18 History B complex-vitamin C-folic acid 1 tab PO DAILY 10/26/18 10/26/18 History [Sindy-Steph] acetaminophen [Tylenol] 325 mg PO Q6H PRN 10/26/18 10/26/18 History calcium carbonate-vitamin D3 1 tab PO BID 10/26/18 10/26/18 History dronabinol 10 mg PO BID 10/26/18 10/26/18 History ferrous sulfate 325 mg PO TID 10/26/18 10/26/18 History magnesium oxide 400 mg PO QAM 10/26/18 10/26/18 History oxycodone-acetaminophen 1 tab PO Q8H PRN 10/26/18 10/26/18 History pantoprazole 40 mg PO DAILY 10/26/18 10/26/18 History Exam Vital signs: Vital Signs 10/26/18 16:33 10/26/18 16:35 10/26/18 18:00 Temperature 101.0 F H Pulse Rate 80 65 66 Respiratory Rate 16 16 Blood Pressure 115/53 L 112/50 L Pulse Oximetry 95 96 96 10/26/18 19:15 10/26/18 20:00 10/26/18 20:15 Temperature 97.3 F L Pulse Rate 62 57 L 67 Respiratory Rate 24 18 20 Blood Pressure 113/47 L 130/56 L 105/44 L Pulse Oximetry 98 100 98 10/26/18 21:38 10/26/18 21:55 10/26/18 21:59 Temperature 96.6 F L 97.2 F L 97.6 F Pulse Rate 68 62 53 L Respiratory Rate 17 17 17 Blood Pressure 141/59 H 127/54 L 153/54 H Pulse Oximetry 97 98 100 10/27/18 00:00 10/27/18 03:44 10/27/18 08:00 Temperature 96.2 F L 98.7 F Pulse Rate 56 L 53 L Respiratory Rate 18 20 Blood Pressure 147/47 H 148/59 H Pulse Oximetry 100 99 95 Intake & Output 10/26/18 10/27/18 10/27/18 18:59 06:59 18:59 Intake Total 100 / 100 1850 / 1850 Output Total 100 / 100 Balance 100 / 100 1750 / 1750 Weight 58.967 kg 58.8 kg Intake: IV 100 / 100 1450 / 1450 NS Inj 1,000 ML @ 125 mls/hr IV 1000 / 1000 .CONT .Q8H [facility] Rx#:[id number] Azithromycin Inj 500 MG In NS 250 / 250 Inj 250 ML @ 250 mls/hr IV.SIG ONCE ONE Rx#:[id number] Azactam Inj 1,000 MG In NS Inj 200 / 200 100 ML @ 200 mls/hr IV.SIG Q8H [facility] Rx#:[id number] Maxipime Inj 2,000 MG In NS Inj 100 / 100 100 ML @ 200 mls/hr IV.SIG ONCE ONE Rx#:[id number] Oral 0 / 0 Intake (Blood Product) Amt 400 / 400 Rbc As-3 Leukoreduced Unit 400 / 400 [id number] Output: Urine 100 / 100 Other: # Bowel Movements 1 Narrative: GENERAL: mal-nourished, well-developed patient. SKIN: Cold and dry. HEAD: Normocephalic. EYES: No scleral icterus. No injection or drainage. NECK: Supple, trachea midline. No JVD or lymphadenopathy. CARDIOVASCULAR: Regular rate and rhythm without murmurs, gallops, or rubs. RESPIRATORY: Breath sounds equal bilaterally. No accessory muscle use. GASTROINTESTINAL: Abdomen soft, non-tender, nondistended. EXTREMITIES: Loss of muscle mass, weak, AV fistula present NEUROLOGICAL: Awake, alert, irritable Results - Lab Results 10/27/18 06:25 10/27/18 06:25 Most recent lab results Calcium 8.1 mg/dL (8.5-10.1) L 10/27/18 06:25 Magnesium 1.8 mg/dL (1.5-2.5) 10/26/18 17:00 Assessment and Plan - Assessment (1) End stage renal disease Code(s): N18.6 - End stage renal disease Status: Chronic Plan: Patient is on dialysis on Tuesday and Tuesday however he is doing very poorly due to metastatic prostate cancer PSA of 196 Alkaline phosphatase very high Metastatic cancer to the bone Poor prognosis Discussed with him he should consider palliative care Hemodialysis this afternoon Consulted palliative care Lower IV fluid to 30 cc an hour. (2) Metastatic malignant neoplasm to prostate Code(s): C79.82 - Secondary malignant neoplasm of genital organs Status: Acute Plan: Poor prognosis palliative care consult (3) Anemia Code(s): D64.9 - Anemia, unspecified Status: Acute Plan: Received 1 unit of packed red blood cell hemoglobin 8.1 from 6.9 (3) Anemia Qualifiers: Anemia type: due to chronic kidney disease Chronic kidney disease stage: on chronic dialysis Qualified Code(s): N18.6 - End stage renal disease; D63.1 - Anemia in chronic kidney disease; Z99.2 - Dependence on renal dialysis
--- NOTE | 2018-10-27 12:03 | ECG ---
Date Performed: 10/26/2018 Time Performed: 17:36:20 PTAGE: 63 years EKG: Sinus rhythm WITH OCCASIONAL SUPRAVENTRICULAR PREMATURE COMPLEXES LOW QRS VOLTAGE IN EXTREMITY LEADS ANTEROSEPTAL MYOCARDIAL INFARCTION MODERATE T-WAVE ABNORMALITY, CONSIDER LATERAL ISCHEMIA ABNORMAL ECG WARNING: D FAUZIA QUALITY MAY AFFECT INTERPRETATION Since the PREVIOUS TRACING , no significant change noted PREVIOUS TRACIN09/21/2018 13.50 DOCTOR: Omega Albarado Interpretating Date/Time 10/27/2018 12:00:00
--- NOTE | 2018-10-27 12:07 | P.HPIM ---
History of Present Illness Primary Care Physician: UNKNOWN Chief Complaint: Altered mental status History of Present Illness: This is a 63-year-old male with a history of end- stage renal disease on hemodialysis Tuesday and Tuesday, anemia on iron supplementation, hypertension, hepatitis C and metastatic prostate cancer. He was sent from a local residential because of altered mental status. He was noted to be confused and not responding to questions. In the ED he was found to have pneumonia and UTI and was given cefepime and Zithromax. Today he is alert and oriented. States he does not feel well. He has been having productive cough but no shortness of breath. He also has no UTI symptoms, fever and chills. Also reports of constipation. Chest x-ray reviewed by me with mild infiltrate in the left lung base. EKG independent reviewed by me with sinus rhythm, PVC in lead III T inversion in V4 and V5 no significant change from previous. All other systems reviewed negative Diagnosis (1) End stage renal disease: (2) Metastatic malignant neoplasm to prostate: (3) Anemia: Inpatient Certification Inpatient Certification: I certify that the inpatient services were ordered in accordance with Medicare regulations governing the order. This includes certification that hospital inpatient services are reasonable and necessary and in the case of services not specified as inpatient-only under 42 CFR 419.22(n), that they are appropriately provided as inpatient services in accordance to with the 2-midnight benchmark under 43 CFR 412.3(e) Estimated Total Length of Stay (Days): 2 Plans for Post Hospital Care: Not yet determined Review of Systems Review of Systems: all other systems reviewed are negative [facility] Medical History Medical History Acute renal failure (Acute) Acute renal failure on dialysis (Acute) Anemia (Acute) Dyspnea (Acute) Fistula (Acute) Hypertension (Acute) Kidney stone (Acute) MDRO (multiple drug resistant organisms) resistance (Acute ~07/19/18) Prostate CA (Acute) Sepsis (Acute) Vascular dialysis catheter in place (Acute) Surgical History Surgical History AV fistula (Acute) H/O major orthopedic surgery (Acute) Family History Family History Mother Pneumonia Father CVA (cerebral vascular accident) Grandparent Prostate cancer Social History Social History Substance History: No History of Abuse Second Hand Smoke Exposure: No Smoking Status: Former smoker Tobacco Type: Cigarettes How Often Do You Have a Drink Containing Alcohol: Never Recent Travel in [facility] within the Last 8 Weeks: No Recent Out of Country Travel within the Last 8 Weeks: No Immunization History Tetanus Immunization: Unsure Hx Influenza Vaccine This Season: No Medications and Allergies Allergies Allergy/AdvReac Type Severity Reaction Status Date / Time Tetanus Vaccines and Toxoid Allergy Severe Fever Verified 10/26/18 16:41 amoxicillin AdvReac Mild Nausea/Vomi Verified 10/26/18 16:41 ting Home Medications Medication Instructions Recorded Confirmed Type bicalutamide 50 mg PO HS 07/09/18 10/26/18 History tamsulosin [Flomax] 0.4 mg PO DAILY 07/09/18 10/26/18 History B complex-vitamin C-folic acid 1 tab PO DAILY 10/26/18 10/26/18 History [Sindy-Steph] acetaminophen [Tylenol] 325 mg PO Q6H PRN 10/26/18 10/26/18 History calcium carbonate-vitamin D3 1 tab PO BID 10/26/18 10/26/18 History dronabinol 10 mg PO BID 10/26/18 10/26/18 History ferrous sulfate 325 mg PO TID 10/26/18 10/26/18 History magnesium oxide 400 mg PO QAM 10/26/18 10/26/18 History oxycodone-acetaminophen 1 tab PO Q8H PRN 10/26/18 10/26/18 History pantoprazole 40 mg PO DAILY 10/26/18 10/26/18 History Active Medications: Active Medications Acetaminophen (Tylenol) 650 mg PO Q4H PRN PRN Reason: Temp > 100.4 Acetaminophen (Tylenol) 650 mg PO UNSCH PRN PRN Reason: SEE LABEL COMMENTS Albuterol (Duoneb Neb (Prn)) 1 ampul NEB Q4HR NEB PRN PRN Reason: SHORTNESS OF BREATH/WHEEZING Atorvastatin Calcium (Lipitor) 20 mg PO HS CYNDIE Bicalutamide (Casodex) 50 mg PO HS CYNDIE Bisacodyl (Dulcolax Supp) 10 mg RECTAL DAILY PRN PRN Reason: SEVERE CONSITIPATION Clonidine HCl (Catapres) 0.1 mg PO UNSCH PRN PRN Reason: SEE LABEL COMMENTS Diphenhydramine HCl (Benadryl) 25 mg PO UNSCH PRN PRN Reason: SEE LABEL COMMENTS Epoetin Hermes (Epogen Inj) 10,000 unit IV.PUSH UNSCH PRN PRN Reason: SEE LABEL COMMENTS Ferrous Sulfate (Ferosul) 325 mg PO TID CYNDIE Gelatin (Gelfoam 12 Mm/7 Mm Topical) 1 foam TOPICAL PRN PRN PRN Reason: help stop bleeding from site Gentamicin Sulfate (Gentamicin Inj) 20 mg OTHER WITH DIALYSIS PRN PRN Reason: Dwell Gentamycin Lock Heparin Sodium (Porcine) (Heparin Inj) 8,000 units OTHER WITH DIALYSIS PRN PRN Reason: for machine prime Heparin Sodium (Porcine) (Heparin Inj) 1,000 units OTHER WITH DIALYSIS PRN PRN Reason: Dwell Heparin to Fill Catheter Sodium Chloride (Ns Inj) 1,000 mls @ 30 mls/hr IV.CONT .Q24H [facility] Last Admin: 10/27/18 03:08 Dose: 125 mls/hr Azithromycin 500 mg/ Sodium (Chloride) 250 mls @ 250 mls/hr IV.SIG Q24H CYNDIE Aztreonam 1,000 mg/ Sodium (Chloride) 100 mls @ 200 mls/hr IV.SIG Q8H [facility] Last Admin: 10/27/18 11:27 Dose: 200 mls/hr Albumin Human (Flexbumin 25% Inj) 100 mls @ 60 mls/hr IV.SIG WITH DIALYSIS PRN PRN Reason: hypotension / volume replace Sodium Chloride (Ns Inj) 1,000 mls @ 0 mls/hr OTHER .Q0M PRN PRN Reason: for prime and rinse back Sodium Chloride (Ns Inj) 1,000 mls @ 200 mls/hr OTHER .Q5H PRN PRN Reason: for dialyzer flush PRN Sodium Chloride (Ns Inj) 1,000 mls @ 0 mls/hr IV.CONT .Q0M PRN PRN Reason: hypotension / volume replace Lactulose (Lactulose Liq) 30 ml PO BID [facility] Last Admin: 10/27/18 10:10 Dose: 30 ml Lactulose (Lactulose Liq) 30 ml PO DAILY PRN PRN Reason: SEVERE CONSITIPATION Mannitol (Mannitol Inj) 12.5 gm IV.PUSH UNSCH PRN PRN Reason: hypotension / volume replace Metoprolol Tartrate (Lopressor) 12.5 mg PO BID [facility] Nitroglycerin (Nitrostat Sl) 0.4 mg SL Q5M PRN PRN Reason: CHEST PAIN Non-Formulary Medication (Dronabinol [Dronabinol]) 10 mg PO BID [facility] Non-Formulary Medication (Magnesium Oxide [Magnesium Oxide]) 400 mg PO QAM [facility] Non-Formulary Medication (Calcium Carbonate-Vitamin D3 [Calcium Carbonate- Vitamin D3]) 1 tab PO BID [facility] Ondansetron HCl (Zofran Inj) 4 mg IV.PUSH Q6H PRN PRN Reason: NAUSEA OR VOMITING Ondansetron HCl (Zofran Inj) 4 mg IV.PUSH UNSCH PRN PRN Reason: NAUSEA OR VOMITING Oxycodone/Acetaminophen (Percocet 5/325 Mg) 1 tab PO Q8H PRN PRN Reason: Pain (Scale Score 7-10) Last Admin: 10/27/18 11:26 Dose: 1 tab Pantoprazole Sodium (Protonix) 40 mg PO DAILY [facility] Sennosides (Senokot) 17.2 mg PO Q12H PRN PRN Reason: Moderate Constipation Sodium Chloride (Ns Flush) 2 ml IV.FLUSH PRN PRN PRN Reason: FLUSH AFTER USING IV ACCESS Sodium Chloride (Ns Flush) 5 ml IV.FLUSH PRN PRN PRN Reason: flush each lumen during HD Tamsulosin HCl (Flomax) 0.4 mg PO DAILY [facility] Physical Exam Vital signs: Vital Signs 10/26/18 16:33 10/26/18 16:35 10/26/18 18:00 Temperature 101.0 F H Pulse Rate 80 65 66 Respiratory Rate 16 16 Blood Pressure 115/53 L 112/50 L Pulse Oximetry 95 96 96 10/26/18 19:15 10/26/18 20:00 10/26/18 20:15 Temperature 97.3 F L Pulse Rate 62 57 L 67 Respiratory Rate 24 18 20 Blood Pressure 113/47 L 130/56 L 105/44 L Pulse Oximetry 98 100 98 10/26/18 21:38 10/26/18 21:55 10/26/18 21:59 Temperature 96.6 F L 97.2 F L 97.6 F Pulse Rate 68 62 53 L Respiratory Rate 17 17 17 Blood Pressure 141/59 H 127/54 L 153/54 H Pulse Oximetry 97 98 100 10/27/18 00:00 10/27/18 03:44 10/27/18 08:00 Temperature 96.2 F L 98.7 F Pulse Rate 56 L 53 L Respiratory Rate 18 20 Blood Pressure 147/47 H 148/59 H Pulse Oximetry 100 99 95 Intake & Output 10/26/18 10/27/18 10/27/18 18:59 06:59 18:59 Intake Total 100 / 100 1850 / 1850 Output Total 100 / 100 Balance 100 / 100 1750 / 1750 Weight 58.967 kg 58.8 kg Intake: IV 100 / 100 1450 / 1450 NS Inj 1,000 ML @ 125 mls/hr IV 1000 / 1000 .CONT .Q8H [facility] Rx#:[id number] Azithromycin Inj 500 MG In NS 250 / 250 Inj 250 ML @ 250 mls/hr IV.SIG ONCE ONE Rx#:[id number] Azactam Inj 1,000 MG In NS Inj 200 / 200 100 ML @ 200 mls/hr IV.SIG Q8H [facility] Rx#:[id number] Maxipime Inj 2,000 MG In NS Inj 100 / 100 100 ML @ 200 mls/hr IV.SIG ONCE ONE Rx#:[id number] Oral 0 / 0 Intake (Blood Product) Amt 400 / 400 Rbc As-3 Leukoreduced Unit 400 / 400 [id number] Output: Urine 100 / 100 Other: # Bowel Movements 1 Narrative: GENERAL: Well-developed, well-nourished in no distress SKIN: Warm and dry. Stage I sacral decub HEAD: Atraumatic. Normocephalic. EYES: Pupils equal and round. No scleral icterus. No injection or drainage. ENT: No nasal bleeding or discharge. Mucous membranes pink and moist. NECK: Trachea midline. No JVD. CARDIOVASCULAR: Regular rate and rhythm. RESPIRATORY: No accessory muscle use. Clear to auscultation. Breath sounds equal bilaterally. GASTROINTESTINAL: Abdomen soft, non-tender, nondistended. Hepatic and splenic margins not palpable. MUSCULOSKELETAL: Extremities without clubbing, cyanosis, or edema. No obvious deformities. AV fistula left upper extremity with thrill NEUROLOGICAL: Awake and alert. No obvious cranial nerve deficits. Motor grossly within normal limits. Five out of 5 muscle strength in the arms and legs. Normal speech. PSYCHIATRIC: Appropriate mood and affect; insight and judgment normal. Results Labs CBC & Chem 7: 10/27/18 06:25 10/27/18 06:25 Imaging Impressions Chest X-Ray 10/26/18 16:35 CONCLUSION: 1. Mild infiltrate in the left lung base. 2. Otherwise, the rest the lung marinelli are grossly clear. Head CT 10/26/18 16:35 CONCLUSION: 1. Unremarkable CT brain for patient's age. . Caprini VTE Risk Assessment Caprini VTE Risk Assessment: Moderate/High Risk (score >= 2) Caprini Risk Assessment Model: Point Value = 1 Point Value = 2 Point Value = 3 Point Value = 5 Age 41-60 Minor surgery BMI > 25 kg/m2 Swollen legs Varicose veins or History of unexplained or recurrent spontaneous Oral contraceptives or hormone replacement Sepsis (< 1 month) Serious lung disease, including pneumonia (< 1 month) Abnormal pulmonary function Acute myocardial infarction Congestive heart failure (< 1 month) History of inflammatory bowel disease Medical patient at bed rest Age 61-74 Arthroscopic surgery Major open surgery (> 45 min) Laparoscopic surgery (> 45 min) Malignancy Confined to bed (> 72 hours) Immobilizing plaster cast Central venous access Age >= 75 History of VTE Family history of VTE Factor V Leiden Prothrombin [id number] Lupus anticoagulant Anticardiolipin antibodies Elevated serum homocysteine Heparin-induced thrombocytopenia Other congenital or acquired thrombophilia Stroke (< 1 month) Elective arthroplasty Hip, pelvis, or leg fracture Acute spinal cord injury (< 1 month) Prophylaxis Regimen: Total Risk Factor Score Risk Level Prophylaxis Regimen 0-1 Low Early ambulation 2 Moderate Order ONE of the following: *Sequential Compression Device (SCD) *Heparin 5000 units SQ BID 3-4 Higher Order ONE of the following medications: *Heparin 5000 units SQ TID *Enoxaparin/Lovenox 40 mg SQ daily (WT < 150 kg, CrCl > 30 mL/min) *Enoxaparin/Lovenox 30 mg SQ daily (WT < 150 kg, CrCl > 10-29 mL/min) *Enoxaparin/Lovenox 30 mg SQ BID (WT < 150 kg, CrCl > 30 mL/min) AND/OR *Sequential Compression Device (SCD) 5 or more Highest Order ONE of the following medications: *Heparin 5000 units SQ TID (Preferred with Epidurals) *Enoxaparin/Lovenox 40 mg SQ daily (WT < 150 kg, CrCl > 30 mL/min) *Enoxaparin/Lovenox 30 mg SQ daily (WT < 150 kg, CrCl > 10-29 mL/min) *Enoxaparin/Lovenox 30 mg SQ BID (WT < 150 kg, CrCl > 30 mL/min) AND *Sequential Compression Device (SCD) Assessment and Plan (1) End stage renal disease: Code(s): N18.6 - End stage renal disease Status: Chronic (2) Metastatic malignant neoplasm to prostate: Code(s): C79.82 - Secondary malignant neoplasm of genital organs Status: Acute (3) Anemia: Code(s): D64.9 - Anemia, unspecified Status: Acute Plan This is a 63-year-old male with a history of end-stage renal disease on hemodialysis Tuesday and Tuesday, anemia on iron supplementation, hypertension, hepatitis C and metastatic prostate cancer. He was sent from a local residential because of altered mental status. He was noted to be confused and not responding to questions. In the ED he was found to have pneumonia and UTI and was given cefepime and Zithromax. Chest x-ray with mild infiltrate in the left lung base. EKG with sinus rhythm, PVC in lead III T inversion in V4 and V5 no significant change from previous Acute encephalopathy secondary to sepsis, metabolic and hepatic encephalopathy. Improving. Continue lactulose to make at least 3 loose stools per day Sepsis. Monitor blood cultures negative to date Healthcare associated pneumonia. Continue aztreonam allergic to amoxicillin and Zithromax. Follow-up Legionella and pneumococcal urinary antigen, sputum and blood cultures UTI. Continue above antibiotics and monitor cultures Anemia. Improved after packed RBC transfusion. Hemoccult stools. Continue iron Metastatic prostate cancer with extremely high alkaline phosphatase. Palliative care consulted DVT prophylaxis with SCD and early ambulation. Hold pharmacological prophylaxis because of anemia pending guaiac 20 mins time spent with advance planning. Patient condition, plan oftreatment and options have been extensively discussed. Face to face encounter with patient to discuss advance directives not limited to code status decision, living will,health care surrogate designation. All questions answered. He elects alternate code, no CPR, shocks and ACLS drugs but agrees to intubation. H&P: Quality VTE Deep Vein Thrombosis/Pulmonary Embolism Present on Admission: No _ (1) Anemia Qualifiers: Anemia type: due to chronic kidney disease Bone marrow failure anemia type: Chronic kidney disease stage: on chronic dialysis Folate deficiency anemia type: Hemolytic anemia type: Iron deficiency anemia type: Other causes of anemia: Vitamin B12 deficiency anemia type: Qualified Code(s): N18.6 - End stage renal disease; D63.1 - Anemia in chronic kidney disease; Z99.2 - Dependence on renal dialysis
[2018-10-27] MEDS: Albumin Human 25% Inj 100 ML IV.SIG PRN ×2 (13:42→13:45)
[2018-10-27] MEDS: Ferrous Sulfate 325 MG Tablet PO SCH ×2 (15:15→17:01)
--- NOTE | 2018-10-27 16:09 | P.DIET ---
Nutritional Evaluation Type of nutrition evaluation: initial Nutrition screening: Weight Loss > 10 lbs Subjective Subjective Comments: Reports weight loss and poor appetite. Ate 50% of lunch today. Objective - Diagnosis Pneumonia, ESRD on HD, UTI, febrille illness, AMS - Objective Body Mass Index: 18.6 % IBW: 78 (IBW = 166#) Body Weight Used for Calculations: Actual (58.8 kg) Energy Needs - Lower Range (kCal/kg): 32 Energy Needs - Upper Range (kCal/kg): 36 Lower Limit kCal/kg (kCals): 1,882 Upper Limit kCal/kg (kCals): 2,117 Lower Limit Protein Factor (Grams per Kg): 1.2 Upper Limit Protein Factor (Grams per Kg): 1.5 Lower Protein Needs (Protein): 71 Upper Protein Needs (Protein): 88 Dietitian Reviewed in Medical Record: Current diet, Curent medications, Intake & Output, Labs, Medical history Diet Order: Renal: 2 gm Na Objective Comments: Hx includes metastatic malignant neoplasm to the prostate Meds include Oscal-D, Marinol, FeSO4, protonix Assessment Assessment: Pt is at high nutrition risk 2' to poor po intake, dx, unintentional weight loss and low wt for ht with a BMI of 18.6. It is noted that the pt is on an appetite stimulant (Marinol). Will send the pt a Nepro and monitor acceptance. Each 8 oz serving provides 425 kcals and [address] following. Recommendations: 1. Continue current diet 2. Nepro po supplement qd 3. RD following/ pt visit pending Dietitian to Monitor: Lab values, Supplement acceptance, Intake & Output, Diet tolerance, Weight change, PO Intake, Medical course
[2018-10-27] MEDS: Magnesium Oxide 400 MG Tablet PO SCH (17:01)
--- NOTE | 2018-10-27 17:24 | P.CONPAL ---
Consult Service: Palliative Care Requesting Physician: Karena Duval Reason for Consult: a. To assist with evaluation and management of symptoms including: Altered mental status, pain, weight loss b. To assist medical decision maker(s) with: better understanding of current medical conditions; weighing benefits/burdens of medical treatment options; making medical treatment decisions. Primary Care Provider: UNKNOWN History of Present Illness History of Present Illness: This is a 63-year old male with a past medical history of end-stage renal disease on hemodialysis, stage IV prostate cancer on Casodex, who has had increasing bone and leg pain, brought to [facility] emergency department 10/26 from the care home where he resides due to altered mental status. EMS reports that the family had noted a slight change in his mental status the prior day which worsened over the next 24 hours. He is reportedly normally alert and oriented. He was neither responding to verbal commands nor following directions. It is noted that he had previously refused 1 day of dialysis in the prior week. He has lost 40 pounds since July 2018. Clinical findings on admission: * Temperature 101.0, pulse 80, respiratory rate 16, blood pressure 115/53, oxygen saturation 95%. * WBC 8.2, Hgb 6.9, HCT 21.5, PLT 189, sodium 138, potassium 5.0, BUN 37, creatinine 4.40, GFR 14, calcium 7.7, total bilirubin 0.7, AST 22, ALT 7, alk phos 2249, ammonia 47, troponin 0 0.05, total protein 5.5, albumin 2.1, PT 14.3 , INR 1.4, APTT 38.7. * Urinalysis showed a clear yellow specimen with a pH of 8.5, specific gravity 1.010, protein 30 small occult blood, large leukocyte esterase, elevated RBC and WBC, few bacteria. * Chest x-ray showed mild infiltrate in the left lung base otherwise grossly clear. * Head CT was unremarkable for the patient's age. * Blood cultures were drawn and are negative times 1 day. * Urine culture is pending. * Hemoccult negative. * He received 1 unit of packed red blood cells on admission At this evaluation he is undergoing hemodialysis, which he agreed to. He is very lethargic and states he is sleepy. His answers are slow in coming and require cueing, repetition and encouragement. At this time he states he does wish to continue hemodialysis. He was approximately 170 pounds when admitted in July 2018 and is 129 pounds at this evaluation. He is cachectic and complains of pain with movement, weakness with muscle loss, depression, hopelessness and irritability. Palliative care was consulted by nephrology due to poor performance status secondary to metastatic prostate cancer with metastasis to the bone. Dr. Duval notes a poor prognosis. Past medical history End-stage renal disease on hemodialysis. Stage IV terminal prostate cancer on Casodex History of GI bleed NSTEMI Hypertension Nephrolithiasis Hepatitis C History of C. difficile Obstructive uropathy Anemia of chronic disease Chronic dyspnea MDRO resistance 07/19/2018 History of sepsis Past surgical history Left arm AV graft Colonoscopy Orthopedic surgery Renal stents secondary to prostatic obstruction Permacath Social history Smokes less than half pack per day in recent months but a long-term smoker, which he quit in the last year. Alcohol use consists of several beers a day until he quit in the last few months. No history of prescription or illicit drug abuse. Family history Father at age 72 with a stroke with a history of diabetes. Mother of complications of emphysema at age 67. Function/Cognitive Trajectory: He has experienced a significant decline over the last few months. He used to live independently and now resides in a care home. He is very lethargic with evident muscle wasting and muscle mass loss. He is cachectic and debilitated with weakness in all extremities. He complains of increased bone and leg pain. . Review of Systems Patient is confused and ROS may be unreliable. A 12 part ROS taken as best as possible from medical record and available family. Constitutional: Reports anorexia, Reports daytime sleepiness, Reports weight loss Respiratory: Reports shortness of breath Musculoskeletal: Reports decreased muscle mass, Reports joint pain, Reports muscle weakness Psychiatric: Reports confusion, Reports depression, Reports hopelessness, Reports irritability PMFSH - History History Provided By: Family Member - Medical History Medical History: Medical History (Last Reviewed 10/27/18 @ 12:04 by Morris Hollis MD) Acute renal failure Acute renal failure on dialysis Anemia Dyspnea Fistula Hypertension Kidney stone MDRO (multiple drug resistant organisms) resistance Onset Date: ~07/19/18 Prostate CA Sepsis Vascular dialysis catheter in place - Surgical History Surgical History: Surgical History (Last Reviewed 10/27/18 @ 12:05 by Morris Hollis MD) AV fistula H/O major orthopedic surgery - Family History Family History: Family History (Last Reviewed 10/27/18 @ 12:05 by Morris Hollis MD) Mother Pneumonia Father CVA (cerebral vascular accident) Grandparent Prostate cancer - Tobacco History Second Hand Smoke Exposure: No Smoking Status: Former smoker Tobacco Type: Cigarettes - Alcohol History How Often Do You Have a Drink Containing Alcohol: Never - Substance Use History Substance History: No History of Abuse - Travel History Recent Travel in the [place] Within the Last 8 Weeks: No Recent Travel Out of the Country Within the Last 8 Weeks: No - Immunization History Tetanus Immunization: Unsure Hx Influenza Vaccine This Season: No Medications and Allergies Active Medications: Active Medications Acetaminophen (Tylenol) 650 mg PO Q4H PRN PRN Reason: Temp > 100.4 Acetaminophen (Tylenol) 650 mg PO UNSCH PRN PRN Reason: SEE LABEL COMMENTS Albuterol (Duoneb Neb (Prn)) 1 ampul NEB Q4HR NEB PRN PRN Reason: SHORTNESS OF BREATH/WHEEZING Atorvastatin Calcium (Lipitor) 20 mg PO HS CYNDIE Bicalutamide (Casodex) 50 mg PO HS CYNDIE Bisacodyl (Dulcolax Supp) 10 mg RECTAL DAILY PRN PRN Reason: SEVERE CONSITIPATION Calcium/Vitamin D (Oscal With D 250/125 Mg) 500 tab PO BID CYNDIE Clonidine HCl (Catapres) 0.1 mg PO UNSCH PRN PRN Reason: SEE LABEL COMMENTS Diphenhydramine HCl (Benadryl) 25 mg PO UNSCH PRN PRN Reason: SEE LABEL COMMENTS Dronabinol (Marinol) 10 mg PO BID CYNDIE Epoetin Hermes (Epogen Inj) 10,000 unit IV.PUSH UNSCH PRN PRN Reason: SEE LABEL COMMENTS Last Admin: 10/27/18 13:43 Dose: 10,000 unit Ferrous Sulfate (Ferosul) 325 mg PO TID CYNDIE Last Admin: 10/27/18 15:15 Dose: Not Given Gelatin (Gelfoam 12 Mm/7 Mm Topical) 1 foam TOPICAL PRN PRN PRN Reason: help stop bleeding from site Gentamicin Sulfate (Gentamicin Inj) 20 mg OTHER WITH DIALYSIS PRN PRN Reason: Dwell Gentamycin Lock Heparin Sodium (Porcine) (Heparin Inj) 8,000 units OTHER WITH DIALYSIS PRN PRN Reason: for machine prime Heparin Sodium (Porcine) (Heparin Inj) 1,000 units OTHER WITH DIALYSIS PRN PRN Reason: Dwell Heparin to Fill Catheter Sodium Chloride (Ns Inj) 1,000 mls @ 30 mls/hr IV.CONT .Q24H [facility] Last Admin: 10/27/18 03:08 Dose: 125 mls/hr Azithromycin 500 mg/ Sodium (Chloride) 250 mls @ 250 mls/hr IV.SIG Q24H CYNDIE Aztreonam 1,000 mg/ Sodium (Chloride) 100 mls @ 200 mls/hr IV.SIG Q8H [facility] Last Infusion: 10/27/18 12:00 Dose: Infused Albumin Human (Flexbumin 25% Inj) 100 mls @ 60 mls/hr IV.SIG WITH DIALYSIS PRN PRN Reason: hypotension / volume replace Last Infusion: 10/27/18 13:46 Dose: Infused Sodium Chloride (Ns Inj) 1,000 mls @ 0 mls/hr OTHER .Q0M PRN PRN Reason: for prime and rinse back Sodium Chloride (Ns Inj) 1,000 mls @ 200 mls/hr OTHER .Q5H PRN PRN Reason: for dialyzer flush PRN Sodium Chloride (Ns Inj) 1,000 mls @ 0 mls/hr IV.CONT .Q0M PRN PRN Reason: hypotension / volume replace Lactulose (Lactulose Liq) 30 ml PO BID [facility] Last Admin: 10/27/18 10:10 Dose: 30 ml Lactulose (Lactulose Liq) 30 ml PO DAILY PRN PRN Reason: SEVERE CONSITIPATION Magnesium Oxide (Mag-Ox) 400 mg PO DAILY [facility] Mannitol (Mannitol Inj) 12.5 gm IV.PUSH UNSCH PRN PRN Reason: hypotension / volume replace Metoprolol Tartrate (Lopressor) 12.5 mg PO BID [facility] Nitroglycerin (Nitrostat Sl) 0.4 mg SL Q5M PRN PRN Reason: CHEST PAIN Ondansetron HCl (Zofran Inj) 4 mg IV.PUSH Q6H PRN PRN Reason: NAUSEA OR VOMITING Ondansetron HCl (Zofran Inj) 4 mg IV.PUSH UNSCH PRN PRN Reason: NAUSEA OR VOMITING Oxycodone/Acetaminophen (Percocet 5/325 Mg) 1 tab PO Q8H PRN PRN Reason: Pain (Scale Score 7-10) Last Admin: 10/27/18 11:26 Dose: 1 tab Pantoprazole Sodium (Protonix) 40 mg PO DAILY CYNDIE Sennosides (Senokot) 17.2 mg PO Q12H PRN PRN Reason: Moderate Constipation Sodium Chloride (Ns Flush) 2 ml IV.FLUSH PRN PRN PRN Reason: FLUSH AFTER USING IV ACCESS Sodium Chloride (Ns Flush) 5 ml IV.FLUSH PRN PRN PRN Reason: flush each lumen during HD Tamsulosin HCl (Flomax) 0.4 mg PO DAILY CYNDIE Allergies Allergy/AdvReac Type Severity Reaction Status Date / Time Tetanus Vaccines and Toxoid Allergy Severe Fever Verified 10/26/18 16:41 amoxicillin AdvReac Mild Nausea/Vomi Verified 10/26/18 16:41 ting Home Medications Medication Instructions Recorded Confirmed Type bicalutamide 50 mg PO HS 07/09/18 10/26/18 History tamsulosin [Flomax] 0.4 mg PO DAILY 07/09/18 10/26/18 History B complex-vitamin C-folic acid 1 tab PO DAILY 10/26/18 10/26/18 History [Sindy-Steph] acetaminophen [Tylenol] 325 mg PO Q6H PRN 10/26/18 10/26/18 History calcium carbonate-vitamin D3 1 tab PO BID 10/26/18 10/26/18 History dronabinol 10 mg PO BID 10/26/18 10/26/18 History ferrous sulfate 325 mg PO TID 10/26/18 10/26/18 History magnesium oxide 400 mg PO QAM 10/26/18 10/26/18 History oxycodone-acetaminophen 1 tab PO Q8H PRN 10/26/18 10/26/18 History pantoprazole 40 mg PO DAILY 10/26/18 10/26/18 History Advance Directives Living Will: No Healthcare Surrogate: Yes Health Care Surrogate Name and Number: Christin Solis and Juan Manuel Ross Power of Livestock Caretaker: No Physical Exam Vital Signs: Vital Signs - 24 hr 10/26/18 16:33 10/26/18 16:35 10/26/18 18:00 Temperature 101.0 F H Pulse Rate 80 65 66 Respiratory Rate 16 16 Blood Pressure 115/53 L 112/50 L Pulse Oximetry 95 96 96 10/26/18 19:15 10/26/18 20:00 10/26/18 20:15 Temperature 97.3 F L Pulse Rate 62 57 L 67 Respiratory Rate 24 18 20 Blood Pressure 113/47 L 130/56 L 105/44 L Pulse Oximetry 98 100 98 10/26/18 21:38 10/26/18 21:55 10/26/18 21:59 Temperature 96.6 F L 97.2 F L 97.6 F Pulse Rate 68 62 53 L Respiratory Rate 17 17 17 Blood Pressure 141/59 H 127/54 L 153/54 H Pulse Oximetry 97 98 100 10/27/18 00:00 10/27/18 03:44 10/27/18 07:25 Temperature 96.2 F L Pulse Rate 56 L Respiratory Rate 18 Blood Pressure 147/47 H Pulse Oximetry 100 99 100 10/27/18 08:00 10/27/18 12:00 10/27/18 12:54 Temperature 98.7 F 98.6 F Pulse Rate 53 L 57 L Respiratory Rate 20 22 16 Blood Pressure 148/59 H 150/60 H Pulse Oximetry 95 96 I&O: Intake & Output 10/25/18 10/26/18 10/27/18 10/28/18 06:59 06:59 06:59 06:59 Intake Total 1950 / 1950 300 / 300 Output Total 100 / 100 Balance 1850 / 1850 300 / 300 Weight 129 lb 10.109 oz Physical Exam: CONSTITUTIONAL/GENERAL: This is a cachectic, male lying in bed undergoing dialysis, lethargic, NAD.. TUBES/LINES/DRAINS: PIV NEREYDA, RW, left arm fistula SKIN: No jaundice, rashes, or lesions. Ecchymoses on upper extremities. No wounds seen anteriorly. Skin temperature appropriate. Not diaphoretic. HEAD: Atraumatic. Normocephalic. Temporal wasting. EYES: Pupils equal and round and reactive. Extraocular motions intact. No scleral icterus. No injection or drainage. Fundi not examined. ENT: Hearing grossly normal. Nose without bleeding or purulent drainage. Throat without visible erythema, exudates, masses, or lesions. NECK: Trachea midline. Supple, nontender. No palpable thyroid enlargement or nodularity. CARDIOVASCULAR: Regular rate and rhythm without murmurs, gallops, or rubs. No JVD. Peripheral pulses symmetric. RESPIRATORY/CHEST: Symmetric, unlabored respirations. Clear to auscultation. Breath sounds equal bilaterally. No wheezes, rales, or rhonchi. GASTROINTESTINAL: Abdomen soft, non-tender, nondistended. No hepato-splenomegaly , or palpable masses. No guarding. Bowel sounds present. GENITOURINARY: Without palpable bladder distension. Oliguric. MUSCULOSKELETAL: Extremities without clubbing, cyanosis, or edema. No joint tenderness or effusion noted. No calf tenderness. No mottling or clubbing. Significant muscle wasting. LYMPHATICS: No palpable cervical or supraclavicular adenopathy. NEUROLOGICAL: Lethargic, arousable, slow to answer requiring repetition, cueing , encouragement. Moves all extremities. PSYCHIATRIC: Flat affect, irritable, appears depressed. Diagnostic Tests Laboratory: Laboratory Results - last 72 hr 10/26/18 10/26/18 10/26/18 17:00 17:00 17:00 CBC w Diff Slide review pending WBC 8.2 RBC 2.30 L Hgb 6.9 L* Hct 21.5 L MCV 93.3 MCH 29.8 MCHC 32.0 RDW 21.7 H Plt Count 189 MPV 7.1 Neut % (Auto) 56.3 Lymph % (Auto) 32.5 [place] % (Auto) 6.4 Eos % (Auto) 0.1 Baso % (Auto) 4.7 H Neut # (Auto) 4.6 Lymph # (Auto) 2.7 [place] # (Auto) 0.5 Eos # (Auto) 0.0 Baso # (Auto) 0.4 H WBC Differential . Diff Scan Auto diff confirmed Differential Comment . Tear Drop Cells 1+ H Ovalocytes 1+ H Keratocytes Occ H PT 14.3 H INR 1.4 APTT 38.7 H Sodium 138 Potassium 5.0 Chloride 106 Carbon Dioxide 23.3 Anion Gap 9 BUN 37 H Creatinine 4.40 H Estimated GFR 14 L Random Glucose 114 H Lactic Acid Calcium 7.7 L Magnesium 1.8 Iron TIBC % Saturation Ferritin Total Bilirubin 0.7 AST 22 ALT 7 L Alkaline Phosphatase 2249 H Ammonia Total Creatine Kinase Troponin I 0.05 Total Protein 5.5 L Albumin 2.1 L Procalcitonin TSH 0.935 Ur Collection Type Urine Color Urine Clarity Urine pH Ur Specific [place] Urine Protein Urine Glucose (UA) Urine Ketones Urine Occult Blood Urine Nitrate Urine Bilirubin Urine Urobilinogen Ur Leukocyte Esterase Urine RBC Urine WBC Urine WBC Clumps Urine Bacteria Micro UA Comment Ur Microscopic Review Urine Culture Comments Blood Type Antibody Screen [facility] Gel Crossmatch 10/26/18 10/26/18 10/26/18 17:00 17:00 17:00 CBC w Diff WBC RBC Hgb Hct MCV MCH MCHC RDW Plt Count MPV Neut % (Auto) Lymph % (Auto) [place] % (Auto) Eos % (Auto) Baso % (Auto) Neut # (Auto) Lymph # (Auto) [place] # (Auto) Eos # (Auto) Baso # (Auto) WBC Differential Diff Scan Differential Comment Tear Drop Cells Ovalocytes Keratocytes PT INR APTT Sodium Potassium Chloride Carbon Dioxide Anion Gap BUN Creatinine Estimated GFR Random Glucose Lactic Acid 0.8 Calcium Magnesium Iron TIBC % Saturation Ferritin Total Bilirubin AST ALT Alkaline Phosphatase Ammonia 47 H Total Creatine Kinase 82 Troponin I Total Protein Albumin Procalcitonin TSH Ur Collection Type Urine Color Urine Clarity Urine pH Ur Specific [place] Urine Protein Urine Glucose (UA) Urine Ketones Urine Occult Blood Urine Nitrate Urine Bilirubin Urine Urobilinogen Ur Leukocyte Esterase Urine RBC Urine WBC Urine WBC Clumps Urine Bacteria Micro UA Comment Ur Microscopic Review Urine Culture Comments Blood Type Antibody Screen [facility] Gel Crossmatch 10/26/18 10/26/18 10/26/18 17:00 17:40 17:50 CBC w Diff WBC RBC Hgb Hct MCV MCH MCHC RDW Plt Count MPV Neut % (Auto) Lymph % (Auto) [place] % (Auto) Eos % (Auto) Baso % (Auto) Neut # (Auto) Lymph # (Auto) [place] # (Auto) Eos # (Auto) Baso # (Auto) WBC Differential Diff Scan Differential Comment Tear Drop Cells Ovalocytes Keratocytes PT INR APTT Sodium Potassium Chloride Carbon Dioxide Anion Gap BUN Creatinine Estimated GFR Random Glucose Lactic Acid Calcium Magnesium Iron 32 L TIBC 70 L % Saturation 45.7 Ferritin 4366 H Total Bilirubin AST ALT Alkaline Phosphatase Ammonia Total Creatine Kinase Troponin I Total Protein Albumin Procalcitonin TSH Ur Collection Type Cath Urine Color Yellow Urine Clarity Clear Urine pH 8.5 Ur Specific [place] 1.010 Urine Protein 30 H Urine Glucose (UA) Negative Urine Ketones Negative Urine Occult Blood Small H Urine Nitrate Negative Urine Bilirubin Negative Urine Urobilinogen 0.2 Ur Leukocyte Esterase Large H Urine RBC 4-15 H Urine WBC 51-189 H Urine WBC Clumps Few H Urine Bacteria Few H Micro UA Comment Cath-culture ind Ur Microscopic Review Microscopic reviewed Urine Culture Comments Cath-cult indicated Blood Type O Negative Antibody Screen Negative MTS Gel Crossmatch 10/26/18 10/26/18 10/27/18 18:45 19:15 06:25 CBC w Diff Auto diff final WBC 8.5 RBC 2.67 L Hgb 8.1 L Hct 24.2 L MCV 90.9 MCH 30.2 MCHC 33.2 RDW 18.5 H D Plt Count 175 MPV 6.9 L Neut % (Auto) 51.2 Lymph % (Auto) 41.7 [place] % (Auto) 4.8 Eos % (Auto) 0.1 Baso % (Auto) 2.2 H Neut # (Auto) 4.4 Lymph # (Auto) 3.5 [place] # (Auto) 0.4 Eos # (Auto) 0.0 Baso # (Auto) 0.2 WBC Differential . Diff Scan Differential Comment . Tear Drop Cells Ovalocytes Keratocytes PT INR APTT Sodium Potassium Chloride Carbon Dioxide Anion Gap BUN Creatinine Estimated GFR Random Glucose Lactic Acid Calcium Magnesium Iron TIBC % Saturation Ferritin Total Bilirubin AST ALT Alkaline Phosphatase Ammonia Total Creatine Kinase Troponin I Total Protein Albumin Procalcitonin 0.53 H TSH Ur Collection Type Urine Color Urine Clarity Urine pH Ur Specific [place] Urine Protein Urine Glucose (UA) Urine Ketones Urine Occult Blood Urine Nitrate Urine Bilirubin Urine Urobilinogen Ur Leukocyte Esterase Urine RBC Urine WBC Urine WBC Clumps Urine Bacteria Micro UA Comment Ur Microscopic Review Urine Culture Comments Blood Type Antibody Screen MTS Gel Crossmatch See Detail 10/27/18 10/27/18 06:25 06:25 CBC w Diff WBC RBC Hgb Hct MCV MCH MCHC RDW Plt Count MPV Neut % (Auto) Lymph % (Auto) [place] % (Auto) Eos % (Auto) Baso % (Auto) Neut # (Auto) Lymph # (Auto) [place] # (Auto) Eos # (Auto) Baso # (Auto) WBC Differential Diff Scan Differential Comment Tear Drop Cells Ovalocytes Keratocytes PT INR APTT Sodium 141 Potassium 4.9 Chloride 109 H Carbon Dioxide 21.1 Anion Gap 11 BUN 39 H Creatinine 4.20 H Estimated GFR 14 L Random Glucose 97 Lactic Acid Calcium 8.1 L Magnesium Iron TIBC % Saturation Ferritin Total Bilirubin AST ALT Alkaline Phosphatase Ammonia 32 Total Creatine Kinase Troponin I Total Protein Albumin Procalcitonin TSH Ur Collection Type Urine Color Urine Clarity Urine pH Ur Specific [place] Urine Protein Urine Glucose (UA) Urine Ketones Urine Occult Blood Urine Nitrate Urine Bilirubin Urine Urobilinogen Ur Leukocyte Esterase Urine RBC Urine WBC Urine WBC Clumps Urine Bacteria Micro UA Comment Ur Microscopic Review Urine Culture Comments Blood Type Antibody Screen MTS Gel Crossmatch Result Diagrams: 10/27/18 06:25 10/27/18 06:25 Microbiology: Microbiology 10/27/18 12:30 Stool Occult Blood (LATRICE) - Final Stool Hemoccult negative 10/26/18 17:00 Aerobic Blood Culture - Preliminary Blood - Peripheral No growth in 1 day Anaerobic Blood Culture - Preliminary No growth in 1 day 10/26/18 17:00 Aerobic Blood Culture - Preliminary Blood - Peripheral No growth in 1 day Anaerobic Blood Culture - Preliminary No growth in 1 day Imaging: ITS Impressions Chest X-Ray 10/26/18 16:35 CONCLUSION: 1. Mild infiltrate in the left lung base. 2. Otherwise, the rest the lung marinelli are grossly clear. Head CT 10/26/18 16:35 CONCLUSION: 1. Unremarkable CT brain for patient's age. . Patient/Family Conference Present at Family Conference: Spoke with patient's daughter Lisa who has requested a family meeting for Tuesday afternoon at 1530 p.m. with her brother if patient's mentation does not clear over the weekend. During the phone call we reviewed clinical course, interventions attempted, goals of medical treatment patient's current clinical status, past medical, social, family, psychosocial history. Reviewed palliative care purpose and focus as regarding symptom management and support in formulating goals of care. Reviewed CODE STATUS and advanced directives, as well as the below listed items. Provided palliative care contact information. All questions answered to the best of my ability. . Family Conference Location: Telephone Issues Discussed: * Palliative care role, purpose, approach * Additional medical, psychosocial, and spiritual history * Patients general health, functional status, and cognitive changes in the months leading up to the current hospitalization * Patient/family understanding of the current medical problems * Patient/family understanding of prognosis * Patients goals of care as best understood from advance directives and/or conversations and/or values * Current medical treatment options and benefits/burdens of those options * Likely scenarios comparing ongoing aggressive care with a transition to comfort measures only * Questions answered to the best of my ability * Palliative care contact information provided Assessment and Plan Pertinent Non-Medical Issues: Psychosocial: He was born in the [place] area and has lived in this area for nearly 10 years. He is currently residing in a [facility] facility. He is 2 sons and 1 daughter, all local. 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 Spiritual: Buddhist robbi but not affiliated with any particular mandaeism or clergy. He is declining doorshaker visits. Legal: No living well or DPOA. Patient has named his daughter Lisa and son Frank as co-HCS. Ethical issues impacting care: None noted. . Important Contacts: Daughter: Lisa Ely Frank Ross . Prognosis: His prognosis is poor. He has terminal, stage IV prostate cancer with metastasis to the bone. PSA is 196, alkaline phosphatase over 2000. He is having bone pain and altered mental status of unknown origin. He has end-stage renal disease on hemodialysis with significant unintentional weight loss of over 40 pounds in approximately 3 months. He would be hospice appropriate if goals were consistent. . Code Status: Alternative Code (Intubation only) Plan: PLAN: Legal decision maker: At this time it is not certain whether the patient is capacitated to make his own decisions or not. He was admitted with altered mental status and was unable to answer my questions clearly, however was able to discuss his medical history with the physician earlier today. He has signed his daughter, Christin Ely and his son, Frank Ross as joint healthcare surrogate's in the likelihood that he is unable to make his decisions. At this time until his mental status can be clarified, would recommend shared decision making. Goals: To be determined. CODE STATUS: Alternative code. Will accept intubation but no cardiopulmonary resuscitation. SYMPTOMS: * Altered mental status: Fluctuating with better orientation and response in the morning. Somewhat confused and lethargic this afternoon after receiving a Percocet. Currently receiving hemodialysis. Antibiotics being given empirically pending culture completion. * Pain: Secondary to bone metastasis, invasive lines, bedbound status, muscle wasting. He has Percocet 5/325 mg every 8 hours as needed available and has taken 1 dose thus far. * Weight loss: July 2018 he was 170 pounds, per his daughter, last week he was 134 pounds and on admission is 129 pounds. He has significant muscle wasting and debility. He is receiving Marinol for appetite stimulation. Palliative care will continue to follow the patient during hospital course as condition evolves, to assist patient/decision-maker with understanding of their medical conditions, weighing benefits/burdens of treatment options, for clarification of goals of treatment. Additionally will assist with any symptoms of palliative concern. . Appreciation Thank you for the opportunity to participate in the care of Madhu Ross. Attestation Attestation: To help prompt me to consider important information that might be impacting today's encounter and assessment, information from prior notes written by myself or my colleagues may have been "brought forward" into today's note. My signature on this note, however, is an attestation that I personally performed the exam, history, and/or decision-making noted today, and, unless otherwise indicated, the interactions with patient, family, and staff as well as the review of records all occurred today. I also attest that the listed assessment and stated plan reflect my best clinical judgment today based on the combination of historical information, prior notes, and today's exam/ interactions. When time spent is documented, it refers only to time spent today by the signer, or if indicated, combined time spent today by collaborating physician/nurse practitioner. .
[2018-10-27] MEDS: Azithromycin Inj 500 MG in Sodium Chlor 0.9% Inj 250 ML IV.SIG SCH (17:59)
[2018-10-27] MEDS: Metoprolol Tartrate 25 MG Tablet PO SCH (20:02)
[2018-10-27] MEDS ORDERED: Calcium/Vitamin D 250/125 MG Tablet PO SCH (21:00)
[2018-10-28] MEDS: Sod Chloride 0.9% Inj 1,000 ML IV.CONT SCH ×2 (00:54→02:22)
[2018-10-28] MEDS: Magnesium Oxide 400 MG Tablet PO SCH (08:14)
[2018-10-28] MEDS: Ferrous Sulfate 325 MG Tablet PO SCH ×3 (08:14→18:25)
[2018-10-28] MEDS: Metoprolol Tartrate 25 MG Tablet PO SCH ×2 (08:14→21:39)
[2018-10-28] MEDS: Calcium/Vitamin D 250/125 MG Tablet PO SCH ×2 (09:16→21:39)
--- NOTE | 2018-10-28 10:48 | P.PNIM ---
Subjective Interval history: Patient still feels very weak and is unable to ambulate effectively. Cultures are negative at day 1. No acute complaints when seen. Physical Exam Vital signs: Vital Signs 10/27/18 12:00 10/27/18 12:54 10/27/18 16:52 Temperature 98.6 F Pulse Rate 57 L Respiratory Rate 22 16 18 Blood Pressure 150/60 H Pulse Oximetry 96 10/27/18 19:41 10/27/18 20:00 10/27/18 20:51 Temperature 97.4 F L Pulse Rate 69 Respiratory Rate 20 Blood Pressure 148/63 H Pulse Oximetry 96 98 98 10/28/18 00:00 10/28/18 08:00 Temperature 97.1 F L 99.3 F Pulse Rate 62 64 Respiratory Rate 20 20 Blood Pressure 142/63 H 134/59 L Pulse Oximetry 98 98 Intake & Output 10/27/18 10/28/18 10/28/18 18:59 06:59 18:59 Intake Total 650 / 650 450 / 450 Output Total 2780 / 2780 Balance -2130 / -2130 450 / 450 Weight 58.8 kg Intake: IV 650 / 650 450 / 450 NS Inj 1,000 ML @ 30 mls/hr IV. 350 / 350 CONT .Q24H CYNDIE Rx#:[id number] Flexbumin 25% Inj 100 ML @ 60 200 / 200 mls/hr IV.SIG WITH DIALYSIS PRN Rx#:[id number] Azithromycin Inj 500 MG In NS 250 / 250 Inj 250 ML @ 250 mls/hr IV.SIG Q24H CYNDIE Rx#:[id number] Azactam Inj 1,000 MG In NS Inj 100 / 100 200 / 200 100 ML @ 200 mls/hr IV.SIG Q8H CYNDIE Rx#:[id number] Oral 0 / 0 Output: Urine 280 / 280 Hemodialysis Amount 2500 / 2500 Other: # Voids 1 # Bowel Movements 2 1 Results Labs CBC & Chem 7: 10/27/18 06:25 10/27/18 06:25 Labs: Microbiology 10/27/18 12:30 Stool Stool Occult Blood ([facility]) - Final Hemoccult negative 10/26/18 17:00 Blood - Peripheral Aerobic Blood Culture - Preliminary No growth in 1 day 10/26/18 17:00 Blood - Peripheral Anaerobic Blood Culture - Preliminary No growth in 1 day 10/26/18 17:00 Blood - Peripheral Aerobic Blood Culture - Preliminary No growth in 1 day 10/26/18 17:00 Blood - Peripheral Anaerobic Blood Culture - Preliminary No growth in 1 day Assessment and Plan (1) End stage renal disease: Code(s): N18.6 - End stage renal disease Status: Chronic (2) Metastatic malignant neoplasm to prostate: Code(s): C79.82 - Secondary malignant neoplasm of genital organs Status: Acute (3) Anemia: Code(s): D64.9 - Anemia, unspecified Status: Acute Plan 63-year-old male with a history of end-stage renal disease on hemodialysis Tuesday and Tuesday, anemia on iron supplementation, hypertension, hepatitis C and metastatic prostate cancer. He was sent from a local detention because of altered mental status. He was noted to be confused and not responding to questions. In the ED he was found to have pneumonia and UTI and was given cefepime and Zithromax. Chest x-ray with mild infiltrate in the left lung base. EKG with sinus rhythm, PVC in lead III T inversion in V4 and V5 no significant change from previous Acute encephalopathy secondary to sepsis metabolic and hepatic encephalopathy. Improving Continue lactulose to make at least 3 loose stools per day Healthcare associated pneumonia Continue aztreonam (allergic to amoxicillin) Continue azithromycin Legionella antigen screen pending Pneumococcal antigen screen pending Follow blood cultures Follow sputum culture Urinary tract infection Continue antibiotics as listed above Follow urine culture Anemia Status post transfusion Continue iron Occult blood stool test pending Metastatic prostate cancer Patient has a high alkaline phosphatase. Palliative care consulted Generalized weakness Pre-existing, patient admitted from a [facility] facility continue physical therapy DVT prophylaxis SCDs Progress Note: Quality VTE Deep Vein Thrombosis/Pulmonary Embolism Present on Admission: No _ (1) Anemia Qualifiers: Anemia type: due to chronic kidney disease Bone marrow failure anemia type: Chronic kidney disease stage: on chronic dialysis Folate deficiency anemia type: Hemolytic anemia type: Iron deficiency anemia type: Other causes of anemia: Vitamin B12 deficiency anemia type: Qualified Code(s): N18.6 - End stage renal disease; D63.1 - Anemia in chronic kidney disease; Z99.2 - Dependence on renal dialysis
[2018-10-28] MEDS: Azithromycin Inj 500 MG in Sodium Chlor 0.9% Inj 250 ML IV.SIG SCH (18:25)
--- NOTE | 2018-10-28 19:06 | P.PNNP ---
Subjective Interval history: Patient appears more alert today, still feels weak Physical Exam Vital signs: Vital Signs 10/27/18 19:41 10/27/18 20:00 10/27/18 20:51 Temperature 97.4 F L Pulse Rate 69 Respiratory Rate 20 Blood Pressure 148/63 H Pulse Oximetry 96 98 98 10/28/18 00:00 10/28/18 08:00 10/28/18 08:10 Temperature 97.1 F L 99.3 F Pulse Rate 62 64 Respiratory Rate 20 20 16 Blood Pressure 142/63 H 134/59 L Pulse Oximetry 98 98 10/28/18 12:00 10/28/18 16:00 Temperature 99.4 F 99.3 F Pulse Rate 62 53 L Respiratory Rate 20 20 Blood Pressure 108/55 L 125/56 L Pulse Oximetry 98 98 Intake & Output 10/28/18 10/28/18 10/29/18 06:59 18:59 06:59 Intake Total 450 / 450 100 / 100 Balance 450 / 450 100 / 100 Weight 58.8 kg Intake: IV 450 / 450 100 / 100 Azithromycin Inj 500 MG In NS 250 / 250 Inj 250 ML @ 250 mls/hr IV.SIG Q24H CYND[facility] Rx#:[id number] Azactam Inj 1,000 MG In NS Inj 200 / 200 100 / 100 100 ML @ 200 mls/hr IV.SIG Q8H CYNDIE Rx#:[id number] Oral 0 / 0 Other: # Voids 1 # Bowel Movements 1 Narrative: GENERAL: mal-nourished, well-developed patient. SKIN: Cold and dry. HEAD: Normocephalic. EYES: No scleral icterus. No injection or drainage. NECK: Supple, trachea midline. No JVD or lymphadenopathy. CARDIOVASCULAR: Regular rate and rhythm without murmurs, gallops, or rubs. RESPIRATORY: Breath sounds equal bilaterally. No accessory muscle use. GASTROINTESTINAL: Abdomen soft, non-tender, nondistended. EXTREMITIES: Loss of muscle mass, weak, AV fistula present NEUROLOGICAL: Awake, alert, Assessment and Plan - Assessment (1) End stage renal disease Code(s): N18.6 - End stage renal disease Status: Chronic Plan: Patient is on dialysis on Tuesday and Tuesday however he is doing very poorly due to metastatic prostate cancer PSA of 196 Alkaline phosphatase very high Metastatic cancer to the bone Poor prognosis Hemodialysis was done yesterday 2.5 L taken off Patient family talked with palliative care Goals of not declined Long-term prognosis remains poor He has been treated for pneumonia getting azithromycin and Azactam. Next dialysis is on Tuesday continue supportive care (2) Metastatic malignant neoplasm to prostate Code(s): C79.82 - Secondary malignant neoplasm of genital organs Status: Acute Plan: Poor prognosis palliative care consult (3) Anemia Code(s): D64.9 - Anemia, unspecified Status: Acute Qualifiers: Anemia type: due to chronic kidney disease Chronic kidney disease stage: on chronic dialysis Qualified Code(s): N18.6 - End stage renal disease; D63.1 - Anemia in chronic kidney disease; Z99.2 - Dependence on renal dialysis Plan: Received 1 unit of packed red blood cell hemoglobin 8.1 from 6.9
[2018-10-29] MEDS: Magnesium Oxide 400 MG Tablet PO SCH (08:44)
[2018-10-29] MEDS: Ferrous Sulfate 325 MG Tablet PO SCH ×3 (08:44→18:16)
[2018-10-29] MEDS: Sod Chloride 0.9% Inj 1,000 ML IV.CONT SCH ×2 (08:45→21:26)
[2018-10-29] MEDS: Metoprolol Tartrate 25 MG Tablet PO SCH ×2 (08:45→21:32)
[2018-10-29] MEDS: Calcium/Vitamin D 250/125 MG Tablet PO SCH ×2 (08:46→21:28)
--- NOTE | 2018-10-29 10:52 | P.PNIM ---
Subjective Interval history: No acute changes overnight. No signs of sepsis. Patient responding well to treatment in regards to infection. However he remains rather listless and is having difficulty with participation with physical therapy. Physical Exam Vital signs: Vital Signs 10/28/18 12:00 10/28/18 16:00 10/28/18 20:00 Temperature 99.4 F 99.3 F Pulse Rate 62 53 L Respiratory Rate 20 20 18 Blood Pressure 108/55 L 125/56 L Pulse Oximetry 98 98 10/28/18 21:18 10/29/18 00:09 10/29/18 07:59 Temperature 98.8 F 98.0 F Pulse Rate 58 L 46 L Respiratory Rate 18 18 Blood Pressure 122/59 L 124/56 L Pulse Oximetry 98 99 98 10/29/18 08:00 Temperature 98.2 F Pulse Rate 64 Respiratory Rate 14 Blood Pressure 127/60 Pulse Oximetry 99 Intake & Output 10/28/18 10/29/18 10/29/18 18:59 06:59 18:59 Intake Total 542 / 542 340 / 340 1350 / 1350 Balance 542 / 542 340 / 340 1350 / 1350 Weight 58.8 kg Intake: IV 100 / 100 100 / 100 1350 / 1350 NS Inj 1,000 ML @ 30 mls/hr IV. 1000 / 1000 CONT .Q24H CYND[facility] Rx#:[id number] Azithromycin Inj 500 MG In NS 250 / 250 Inj 250 ML @ 250 mls/hr IV.SIG Q24H CYNDIE Rx#:[id number] Azactam Inj 1,000 MG In NS Inj 100 / 100 100 / 100 100 / 100 100 ML @ 200 mls/hr IV.SIG Q8H CYNDIE Rx#:[id number] Oral 442 / 442 240 / 240 Other: # Incontinent Voids 4 1 # Bowel Movements 0 Narrative: GENERAL: NAD, A&Ox3, patient weak HEAD: Normocephalic. NECK: Supple, trachea midline. No lymphadenopathy. EYES: No scleral icterus. No injection or drainage. CARDIOVASCULAR: Regular rate and rhythm without murmurs, gallops, or rubs. RESPIRATORY: Breath sounds equal bilaterally. No accessory muscle use. GASTROINTESTINAL: Abdomen soft, non-tender, nondistended. MUSCULOSKELETAL: No cyanosis, or edema. SKIN: Warm and dry. NEURO: No focal neurological deficits. Results Labs CBC & Chem 7: 10/27/18 06:25 10/27/18 06:25 Labs: Microbiology 10/26/18 17:50 Clean Catch Urine Urine Culture - Preliminary No growth in 24 hours 10/26/18 17:00 Blood - Peripheral Aerobic Blood Culture - Preliminary No growth in 2 days 10/26/18 17:00 Blood - Peripheral Anaerobic Blood Culture - Preliminary No growth in 2 days 10/26/18 17:00 Blood - Peripheral Aerobic Blood Culture - Preliminary No growth in 2 days 10/26/18 17:00 Blood - Peripheral Anaerobic Blood Culture - Preliminary No growth in 2 days Assessment and Plan (1) End stage renal disease: Code(s): N18.6 - End stage renal disease Status: Chronic (2) Metastatic malignant neoplasm to prostate: Code(s): C79.82 - Secondary malignant neoplasm of genital organs Status: Acute (3) Anemia: Code(s): D64.9 - Anemia, unspecified Status: Acute Plan 63-year-old male with a history of end-stage renal disease on hemodialysis Tuesday and Tuesday, anemia on iron supplementation, hypertension, hepatitis C and metastatic prostate cancer. He was sent from a local [facility] living because of altered mental status. He was noted to be confused and not responding to questions. In the ED he was found to have pneumonia and UTI and was given cefepime and Zithromax. Chest x-ray with mild infiltrate in the left lung base. EKG with sinus rhythm, PVC in lead III T inversion in V4 and V5 no significant change from previous. Responding well to antibiotics. Continue monitoring CBC and CMP. Continue working with physical therapy. Acute encephalopathy secondary to sepsis metabolic and hepatic encephalopathy. Improving Continue lactulose to make at least 3 loose stools per day Healthcare associated pneumonia Continue aztreonam (allergic to amoxicillin) Continue azithromycin Legionella antigen screen pending Pneumococcal antigen screen pending Follow blood cultures Follow sputum culture Urinary tract infection Continue antibiotics as listed above Follow urine culture Anemia Status post transfusion Continue iron Occult blood stool test pending Metastatic prostate cancer Patient has a high alkaline phosphatase. Palliative care consulted Generalized weakness Pre-existing, patient admitted from a halfway facility continue physical therapy DVT prophylaxis SCDs Progress Note: Quality VTE Deep Vein Thrombosis/Pulmonary Embolism Present on Admission: No _ (1) Anemia Qualifiers: Anemia type: due to chronic kidney disease Bone marrow failure anemia type: Chronic kidney disease stage: on chronic dialysis Folate deficiency anemia type: Hemolytic anemia type: Iron deficiency anemia type: Other causes of anemia: Vitamin B12 deficiency anemia type: Qualified Code(s): N18.6 - End stage renal disease; D63.1 - Anemia in chronic kidney disease; Z99.2 - Dependence on renal dialysis
--- NOTE | 2018-10-29 17:01 | P.PNNP ---
Subjective Interval history: Patient remains lethargic Physical Exam Vital signs: Vital Signs 10/28/18 20:00 10/28/18 21:18 10/29/18 00:09 Temperature 98.8 F 98.0 F Pulse Rate 58 L 46 L Respiratory Rate 18 18 18 Blood Pressure 122/59 L 124/56 L Pulse Oximetry 98 99 10/29/18 07:59 10/29/18 08:00 10/29/18 12:00 Temperature 98.2 F 98.0 F Pulse Rate 64 50 L Respiratory Rate 18 15 Blood Pressure 127/60 124/56 L Pulse Oximetry 98 99 99 10/29/18 16:00 Temperature 98.6 F Pulse Rate 59 L Respiratory Rate 15 Blood Pressure 119/56 L Pulse Oximetry 99 Intake & Output 10/28/18 10/29/18 10/29/18 18:59 06:59 18:59 Intake Total 542 / 542 340 / 340 1450 / 1450 Balance 542 / 542 340 / 340 1450 / 1450 Weight 58.8 kg Intake: IV 100 / 100 100 / 100 1450 / 1450 NS Inj 1,000 ML @ 30 mls/hr IV. 1000 / 1000 CONT .Q24H CYNDIE Rx#:[id number] Azithromycin Inj 500 MG In NS 250 / 250 Inj 250 ML @ 250 mls/hr IV.SIG Q24H CYNDIE Rx#:[id number] Azactam Inj 1,000 MG In NS Inj 100 / 100 100 / 100 200 / 200 100 ML @ 200 mls/hr IV.SIG Q8H CYNDIE Rx#:[id number] Oral 442 / 442 240 / 240 Other: # Incontinent Voids 4 1 # Bowel Movements 0 Narrative: GENERAL: mal-nourished, well-developed patient. SKIN: Cold and dry. HEAD: Normocephalic. EYES: No scleral icterus. No injection or drainage. NECK: Supple, trachea midline. No JVD or lymphadenopathy. CARDIOVASCULAR: Regular rate and rhythm without murmurs, gallops, or rubs. RESPIRATORY: Breath sounds equal bilaterally. No accessory muscle use. GASTROINTESTINAL: Abdomen soft, non-tender, nondistended. EXTREMITIES: Loss of muscle mass, weak, AV fistula present NEUROLOGICAL: Awake, alert, Assessment and Plan - Assessment (1) End stage renal disease Code(s): N18.6 - End stage renal disease Status: Chronic Plan: Patient is on dialysis on Tuesday and Tuesday however he is doing very poorly due to metastatic prostate cancer PSA of 196 Alkaline phosphatase very high Metastatic cancer to the bone Poor prognosis Hemodialysis was done Tuesday 2.5 L taken off Patient family talked with palliative care Goals patient has declined in health and poor participation with physical therapy Long-term prognosis remains poor He has been treated for pneumonia getting azithromycin and Azactam. Next dialysis is on Tuesday continue supportive care (2) Metastatic malignant neoplasm to prostate Code(s): C79.82 - Secondary malignant neoplasm of genital organs Status: Acute Plan: Poor prognosis palliative care consult (3) Anemia Code(s): D64.9 - Anemia, unspecified Status: Acute Qualifiers: Anemia type: due to chronic kidney disease Chronic kidney disease stage: on chronic dialysis Qualified Code(s): N18.6 - End stage renal disease; D63.1 - Anemia in chronic kidney disease; Z99.2 - Dependence on renal dialysis Plan: Received 1 unit of packed red blood cell hemoglobin 8.1 from 6.9
[2018-10-29] MEDS: Azithromycin Inj 500 MG in Sodium Chlor 0.9% Inj 250 ML IV.SIG SCH (18:16)
[2018-10-30] MEDS ORDERED: Atropine Inj 1 MG/10 ML Syringe IV.PUSH ONE (04:30)
[2018-10-30 09:02] LABS: Baso # (Auto) 0.1 th/mm3 (0.0-0.2); Baso % (Auto) 1.2 % (0.0-2.0); Eos # (Auto) 0.1 th/mm3 (0.0-0.4); Eos % (Auto) 1.2 % (0.0-4.0); Hematocrit 24.4 % (39.0-51.0); Hemoglobin 7.9 gm/dL (13.0-17.0); Lymph # (Auto) 2.4 th/mm3 (1.0-4.8); Lymph % (Auto) 40.7 % (9.0-44.0); Mean Corpuscular HGB Conc 32.6 % (32.0-36.0); Mean Corpuscular Hemoglobin 29.7 pg (27.0-34.0); Mean Platelet Volume 6.6 fL (7.0-11.0); Mono # (Auto) 0.2 th/mm3 (0.0-0.9); Mono % (Auto) 4.1 % (0.0-8.0); Neut # (Auto) 3.1 th/mm3 (1.8-7.7); Neut % (Auto) 52.8 % (16.0-70.0); Platelet Count 157 th/mm3 (150-450); Red Blood Count 2.68 mil/mm3 (4.50-5.90); Red Cell Distribution Width 18.4 % (11.6-17.2); White Blood Count 5.9 th/mm3 (4.0-11.0)
[2018-10-30 09:46] LABS: Albumin 1.9 g/dL (3.4-5.0); Alkaline Phosphatase 1595 U/L (45-117); Anion Gap 9 meq/L (5-15); Aspartate Aminotransferase 14 U/L (15-37); Blood Urea Nitrogen 28 mg/dL (7-18); Calcium 7.9 mg/dL (8.5-10.1); Carbon Dioxide 24.2 meq/L (21.0-32.0); Chloride 110 meq/L (98-107); Glomerular Filtration Rate 18 mL/min (>89); Glucose,Random 75 mg/dL (74-106); Sodium 143 meq/L (136-145); Total Protein 4.7 g/dL (6.4-8.2)
[2018-10-30] MEDS: Magnesium Oxide 400 MG Tablet PO SCH (11:05)
[2018-10-30] MEDS: Ferrous Sulfate 325 MG Tablet PO SCH ×3 (11:05→23:18)
[2018-10-30] MEDS: Calcium/Vitamin D 250/125 MG Tablet PO SCH ×3 (11:06→21:52)
[2018-10-30] MEDS: Metoprolol Tartrate 25 MG Tablet PO SCH ×2 (11:06→21:48)
--- NOTE | 2018-10-30 14:44 | P.PNPAL ---
Reason for Visit Reason for visit: a. To assist with evaluation and management of symptoms including: Altered mental status, pain, weight loss b. To assist medical decision maker(s) with: better understanding of current medical conditions; weighing benefits/burdens of medical treatment options; making medical treatment decisions. Subjective Subjective/Interval History: This is a 63-year old male with a past medical history of end-stage renal disease on hemodialysis, stage IV prostate cancer on Casodex, who has had increasing bone and leg pain, brought to [facility]. emergency department 10[facility] due to altered mental status. EMS reports that the family had noted a slight change in his mental status the prior day which worsened over the next 24 hours. He is reportedly normally alert and oriented. He was neither responding to verbal commands nor following directions. It is noted that he had previously refused 1 day of dialysis in the prior week. He has lost 40 pounds since July 2018. Patient is seen today for medically necessary visit to evaluate symptom management pain, weight loss status and to discuss goals of care with family. Patient remains lethargic, more arousable today. His daughter is at bedside. He is oriented to self, thinks it is 2018, has no idea where he is or why he is here. He states he thinks he would like to continue dialysis, but would not wish to be resuscitated. His daughter is agreeable with this. He states he continues to have intermittent, severe pain in his legs however it is managed by Percocet which he tries to take sparingly, but is aware that when he allows the pain to become uncontrolled that it takes longer to subside and takes more medication to control the pain. He doses off midway through conversation, but arouses briefly from time to time. His appetite is very poor and is eating minimally at breakfast. His daughter is assisting him by feeding him as he is very weak. Labs today show WBC 5.9, Hgb 7.9, HCT 24.4, PLT 157, sodium 143, potassium 4.0, chloride 110, BUN 28, creatinine 3.40, calcium 7.9, AST 14, ALT less than 6, alk phos 1595, albumin 1.9, total protein 4.7. Family/Friend Interactions: Spoke with his daughter, Christin, at bedside. She expresses concern that her father will not be able to make the trip from the alf facility to outpatient dialysis, which remains a valid concern. Patient is extremely lethargic and weak. Physical therapy evaluation done 10/27 notes a decline from 1 patient was seen by therapist 13 months prior when he was able to walk 130 feet with front wheeled walker and minimal assistance. Decreased muscle mass and weight loss noted with increasing weakness, lower extremity strength 2-3 out of 5. Oriented to self and birthdate but not month or year. He was able to follow simple commands with assistance for bed mobility and despite maximal assist he was minimally able to get his buttocks off the bed using a front wheeled walker for support. Sitting balance is noted to be fair, but lightheadedness noted with movement. Family would like to consider rehabilitation if patient is able, as he expresses a desire to continue with dialysis. Given his lethargy and debility, rehabilitation may not be practical , however I will consult case management to evaluate. Family is requesting inpatient rehab as all outpatient facilities would require transport to outpatient dialysis, which the patient does not appear able to tolerate at this time, due to his weakness and inability to transfer. Spoke with correctional case records supervisor, Fiona, and requested referral to [facility] for evaluation. . Advance Directives Health Care Surrogate Name and Number: Christin Ely and Juan Manuel Ross Objective Vital Signs: Vital Signs 10/29/18 16:00 10/29/18 20:00 10/29/18 23:57 Temperature 98.6 F 97.6 F 96.8 F L Pulse Rate 59 L 52 L 60 Respiratory Rate 15 16 18 Blood Pressure 119/56 L 135/62 140/57 L Pulse Oximetry 99 98 100 10/30/18 07:40 10/30/18 08:00 Temperature 97.5 F L Pulse Rate 51 L Respiratory Rate 18 Blood Pressure 159/72 H Pulse Oximetry 99 100 Intake & Output 10/29/18 10/30/18 10/30/18 18:59 06:59 18:59 Intake Total 2170 / 2170 1450 / 1450 480 / 480 Output Total 25 / 25 200 / 200 Balance 2170 / 2170 1425 / 1425 280 / 280 Weight 136 lb 10.986 oz Intake: IV 1450 / 1450 1450 / 1450 NS Inj 1,000 ML @ 30 mls/hr IV. 1000 / 1000 1000 / 1000 CONT .Q24H CYNDIE Rx#:[id number] Azithromycin Inj 500 MG In NS 250 / 250 250 / 250 Inj 250 ML @ 250 mls/hr IV.SIG Q24H CYNDIE Rx#:[id number] Azactam Inj 1,000 MG In NS Inj 200 / 200 200 / 200 100 ML @ 200 mls/hr IV.SIG Q8H CYNDIE Rx#:[id number] Oral 720 / 720 480 / 480 Output: Urine 25 / 25 200 / 200 Other: # Incontinent Voids 3 # Incontinent Bowel Movements 2 Physical Exam: CONSTITUTIONAL/GENERAL: This is a cachectic, male lying in bed, lethargic, NAD.. TUBES/LINES/DRAINS: PIV NEREYDA, RW, left arm fistula SKIN: No jaundice, rashes, or lesions. Ecchymoses on upper extremities. No wounds seen anteriorly. Skin temperature appropriate. Not diaphoretic. HEAD: Atraumatic. Normocephalic. Temporal wasting. EYES: Pupils equal and round and reactive. Extraocular motions intact. No scleral icterus. No injection or drainage. Fundi not examined. CARDIOVASCULAR: Regular rate and rhythm without murmurs, gallops, or rubs. No JVD. Peripheral pulses symmetric. RESPIRATORY/CHEST: Symmetric, unlabored respirations. Clear to auscultation. Breath sounds equal bilaterally. No wheezes, rales, or rhonchi. GASTROINTESTINAL: Abdomen soft, non-tender, nondistended. No hepato-splenomegaly , or palpable masses. No guarding. Bowel sounds present. GENITOURINARY: Without palpable bladder distension. Oliguric, with worsening incontinence. MUSCULOSKELETAL: Extremities without clubbing, cyanosis, or edema. No joint tenderness or effusion noted. No calf tenderness. No mottling or clubbing. Significant muscle wasting. NEUROLOGICAL: Lethargic, arousable, oriented to self, thinks it is 2018, not oriented to place or purpose, slow to answer requiring repetition, cueing, encouragement. Moves all extremities. PSYCHIATRIC: Flat affect, appears depressed. Diagnostic Tests Laboratory: Laboratory Results - last 72 hr 10/30/18 10/30/18 08:28 08:28 CBC w Diff Auto diff final WBC 5.9 RBC 2.68 L Hgb 7.9 L Hct 24.4 L MCV 91.0 MCH 29.7 MCHC 32.6 RDW 18.4 H Plt Count 157 MPV 6.6 L Neut % (Auto) 52.8 Lymph % (Auto) 40.7 [place] % (Auto) 4.1 Eos % (Auto) 1.2 Baso % (Auto) 1.2 Neut # (Auto) 3.1 Lymph # (Auto) 2.4 [place] # (Auto) 0.2 Eos # (Auto) 0.1 Baso # (Auto) 0.1 WBC Differential . Differential Comment . Sodium 143 Potassium 4.0 Chloride 110 H Carbon Dioxide 24.2 Anion Gap 9 BUN 28 H Creatinine 3.40 H Estimated GFR 18 L Random Glucose 75 Calcium 7.9 L Total Bilirubin 0.5 AST 14 L ALT Less than 6 L Alkaline Phosphatase 1595 H Total Protein 4.7 L D Albumin 1.9 L Result Diagrams: 10/30/18 08:28 10/30/18 08:28 Microbiology: Microbiology 10/26/18 17:00 Aerobic Blood Culture - Preliminary Blood - Peripheral No growth in 4 days Anaerobic Blood Culture - Preliminary No growth in 4 days 10/26/18 17:00 Aerobic Blood Culture - Preliminary Blood - Peripheral No growth in 4 days Anaerobic Blood Culture - Preliminary No growth in 4 days 10/26/18 17:50 Urine Culture - Final Clean Catch Urine No growth in 48 hours 10/27/18 12:30 Stool Occult Blood (LATRICE) - Final Stool Hemoccult negative Imaging: Chest X-Ray 10/26/18 16:35 CONCLUSION: 1. Mild infiltrate in the left lung base. 2. Otherwise, the rest the lung marinelli are grossly clear. Head CT 10/26/18 16:35 CONCLUSION: 1. Unremarkable CT brain for patient's age. . Assessment and Plan Pertinent Non-Medical Issues: Psychosocial: He was born in the [facility] and has lived in this area for nearly 10 years. He is currently residing in a alf facility. He is 2 sons and 1 daughter, all local. 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 Spiritual: Congregational robbi but not affiliated with any particular congregational or clergy. He is declining casino enforcement agent visits. Legal: No living well or DPOA. Patient has named his daughter Lisa and son Frank as co-HCS. Ethical issues impacting care: None noted. . Important Contacts: Daughter: Lisa Ely Frank Ross . Prognosis: His prognosis is poor. He has terminal, stage IV prostate cancer with metastasis to the bone. PSA is 196, alkaline phosphatase over 2000. He is having bone pain and altered mental status of unknown origin. He has end-stage renal disease on hemodialysis with significant unintentional weight loss of over 40 pounds in approximately 3 months. He would be hospice appropriate if goals were consistent. . Code Status: No Code DNR (Intubation only) Plan: PLAN: Legal decision maker: He does not appear to be capacitated today, as he is oriented only to self. He has signed his daughter, Christin Ely and his son, Frank Ross as joint healthcare surrogate's in the likelihood that he is unable to make his decisions. At this time until his mental status can be clarified, would recommend shared decision making. Goals: Comfort oriented short of stopping dialysis. CODE STATUS: DO NOT RESUSCITATE. SYMPTOMS: * Altered mental status: Fluctuating with better orientation and response this morning. He is oriented to self, but not oriented to time, place or purpose. He thinks it is 2018 and does not know where he is or why he is here. * Pain: Secondary to bone metastasis, invasive lines, bedbound status, muscle wasting. He has Percocet 5/325 mg every 8 hours as needed available and takes 1 -2 tabs daily. * Weight loss: July 2018 he was 170 pounds, per his daughter, today he is 136 pounds. He has significant muscle wasting and debility. He is receiving Marinol for appetite stimulation. Palliative care will continue to follow the patient during hospital course as condition evolves, to assist patient/decision-maker with understanding of their medical conditions, weighing benefits/burdens of treatment options, for clarification of goals of treatment. Additionally will assist with any symptoms of palliative concern. . Attestation Attestation: To help prompt me to consider important information that might be impacting today's encounter and assessment, information from prior notes written by myself or my colleagues may have been "brought forward" into today's note. My signature on this note, however, is an attestation that I personally performed the exam, history, and/or decision-making noted today, and, unless otherwise indicated, the interactions with patient, family, and staff as well as the review of records all occurred today. I also attest that the listed assessment and stated plan reflect my best clinical judgment today based on the combination of historical information, prior notes, and today's exam/ interactions. When time spent is documented, it refers only to time spent today by the signer, or if indicated, combined time spent today by collaborating physician/nurse practitioner. .
[2018-10-30] MEDS ORDERED: Sod Chloride 0.9% Inj 1,000 ML IV.SIG SCH (15:59)
[2018-10-30] MEDS ORDERED: Sodium Chlor 0.9% Inj 250 ML IV.SIG SCH (16:00)
[2018-10-30] MEDS ORDERED: fentaNYL Citrate Inj 100 MCG/2 ML Ampul ONE ×2 (16:18)
--- NOTE | 2018-10-30 16:25 | P.CONVS ---
History of Present Illness Service: Vascular Surgery Consult date: 10/30/18 Reason for Consult: Acute Rupture of his L UE AVF Primary Care Provider: UNKNOWN Chief Complaint: Altered mental status History of Present Illness: 63/M with an acute rupture of his L UE AVF post HD Pt weak and hypotensive Pressure dressing to L UE applied prior to arrival- Bleeding controlled Review of Systems Constitutional: Reports weakness Skin/Breast: Reports other (L UE AVF rupture) [facility] - History History Provided By: Family Member - Medical History Medical History: Medical History (Last Reviewed 10/30/18 @ 16:17 by Trice Lindsay) Acute renal failure Acute renal failure on dialysis Anemia Dyspnea Fistula Hypertension Kidney stone MDRO (multiple drug resistant organisms) resistance Onset Date: ~07/19/18 Prostate CA Sepsis Vascular dialysis catheter in place - Surgical History Surgical History: Surgical History (Last Reviewed 10/30/18 @ 16:17 by Trice Lindsay) AV fistula H/O major orthopedic surgery - Family History Family History: Family History (Last Reviewed 10/27/18 @ 12:05 by Morris Hollis MD) Mother Pneumonia Father CVA (cerebral vascular accident) Grandparent Prostate cancer - Social History I have reviewed the patient's Social History: Yes - Tobacco History Second Hand Smoke Exposure: No Smoking Status: Former smoker Tobacco Type: Cigarettes - Alcohol History How Often Do You Have a Drink Containing Alcohol: Never - Substance Use History Substance History: No History of Abuse - Travel History Recent Travel in the [place] Within the Last 8 Weeks: No Recent Travel Out of the Country Within the Last 8 Weeks: No - Immunization History Tetanus Immunization: Unsure Hx Influenza Vaccine This Season: No Medications and Allergies Allergies Allergy/AdvReac Type Severity Reaction Status Date / Time Tetanus Vaccines and Toxoid Allergy Severe Fever Verified 10/26/18 16:41 amoxicillin AdvReac Mild Nausea/Vomi Verified 10/26/18 16:41 ting Home Medications Medication Instructions Recorded Confirmed Type bicalutamide 50 mg PO HS 07/09/18 10/26/18 History tamsulosin [Flomax] 0.4 mg PO DAILY 07/09/18 10/26/18 History B complex-vitamin C-folic acid 1 tab PO DAILY 10/26/18 10/26/18 History [Sindy-Steph] acetaminophen [Tylenol] 325 mg PO Q6H PRN 10/26/18 10/26/18 History calcium carbonate-vitamin D3 1 tab PO BID 10/26/18 10/26/18 History dronabinol 10 mg PO BID 10/26/18 10/26/18 History ferrous sulfate 325 mg PO TID 10/26/18 10/26/18 History magnesium oxide 400 mg PO QAM 10/26/18 10/26/18 History oxycodone-acetaminophen 1 tab PO Q8H PRN 10/26/18 10/26/18 History pantoprazole 40 mg PO DAILY 10/26/18 10/26/18 History Active Medications: Active Medications Acetaminophen (Tylenol) 650 mg PO Q4H PRN PRN Reason: Temp > 100.4 Acetaminophen (Tylenol) 650 mg PO UNSCH PRN PRN Reason: SEE LABEL COMMENTS Albuterol (Duoneb Neb (Prn)) 1 ampul NEB Q4HR NEB PRN PRN Reason: SHORTNESS OF BREATH/WHEEZING Atorvastatin Calcium (Lipitor) 20 mg PO HS [facility] Last Admin: 10/29/18 21:28 Dose: 20 mg Bicalutamide (Casodex) 50 mg PO [facility] Last Admin: 10/29/18 21:28 Dose: 50 mg Bisacodyl (Dulcolax Supp) 10 mg RECTAL DAILY PRN PRN Reason: SEVERE CONSITIPATION Calcium/Vitamin D (Oscal With D 250/125 Mg) 2 tab PO BID [facility] Last Admin: 10/30/18 11:06 Dose: 2 tab Clonidine HCl (Catapres) 0.1 mg PO UNSCH PRN PRN Reason: SEE LABEL COMMENTS Diphenhydramine HCl (Benadryl) 25 mg PO UNSCH PRN PRN Reason: SEE LABEL COMMENTS Dronabinol (Marinol) 10 mg PO BID [facility] Last Admin: 10/30/18 11:06 Dose: Not Given Epoetin Hermes (Epogen Inj) 10,000 unit IV.PUSH UNSCH PRN PRN Reason: SEE LABEL COMMENTS Last Admin: 10/27/18 13:43 Dose: 10,000 unit Ferrous Sulfate (Ferosul) 325 mg PO TID [facility] Last Admin: 10/30/18 11:05 Dose: 325 mg Gelatin (Gelfoam 12 Mm/7 Mm Topical) 1 foam TOPICAL PRN PRN PRN Reason: help stop bleeding from site Gentamicin Sulfate (Gentamicin Inj) 20 mg OTHER WITH DIALYSIS PRN PRN Reason: Dwell Gentamycin Lock Heparin Sodium (Porcine) (Heparin Inj) 8,000 units OTHER WITH DIALYSIS PRN PRN Reason: for machine prime Heparin Sodium (Porcine) (Heparin Inj) 1,000 units OTHER WITH DIALYSIS PRN PRN Reason: Dwell Heparin to Fill Catheter Sodium Chloride (Ns Inj) 250 mls @ 15 mls/hr IV.SIG ONCE CYNDIE Stop: 10/31/18 08:39 Sodium Chloride (Ns Inj) 1,000 mls @ 1,000 mls/hr IV.SIG BOLUS CYNDIE Stop: 10/30/18 16:58 Sodium Chloride (Ns Inj) 1,000 mls @ 30 mls/hr IV.CONT .Q24H CYNDIE Last Admin: 10/29/18 21:26 Dose: 30 mls/hr Azithromycin 500 mg/ Sodium (Chloride) 250 mls @ 250 mls/hr IV.SIG Q24H CYNDIE Last Infusion: 10/30/18 00:14 Dose: Infused Aztreonam 1,000 mg/ Sodium (Chloride) 100 mls @ 200 mls/hr IV.SIG Q8H CYNDIE Last Infusion: 10/30/18 05:30 Dose: Infused Albumin Human (Flexbumin 25% Inj) 100 mls @ 60 mls/hr IV.SIG WITH DIALYSIS PRN PRN Reason: hypotension / volume replace Last Infusion: 10/27/18 13:46 Dose: Infused Sodium Chloride (Ns Inj) 1,000 mls @ 0 mls/hr OTHER .Q0M PRN PRN Reason: for prime and rinse back Sodium Chloride (Ns Inj) 1,000 mls @ 200 mls/hr OTHER .Q5H PRN PRN Reason: for dialyzer flush PRN Sodium Chloride (Ns Inj) 1,000 mls @ 0 mls/hr IV.CONT .Q0M PRN PRN Reason: hypotension / volume replace Lactulose (Lactulose Liq) 30 ml PO BID [facility] Last Admin: 10/30/18 11:05 Dose: 30 ml Lactulose (Lactulose Liq) 30 ml PO DAILY PRN PRN Reason: SEVERE CONSITIPATION Magnesium Oxide (Mag-Ox) 400 mg PO DAILY [facility] Last Admin: 10/30/18 11:05 Dose: 400 mg Mannitol (Mannitol Inj) 12.5 gm IV.PUSH UNSCH PRN PRN Reason: hypotension / volume replace Metoprolol Tartrate (Lopressor) 12.5 mg PO BID [facility] Last Admin: 10/30/18 11:06 Dose: 12.5 mg Nitroglycerin (Nitrostat Sl) 0.4 mg SL Q5M PRN PRN Reason: CHEST PAIN Ondansetron HCl (Zofran Inj) 4 mg IV.PUSH Q6H PRN PRN Reason: NAUSEA OR VOMITING Ondansetron HCl (Zofran Inj) 4 mg IV.PUSH UNSCH PRN PRN Reason: NAUSEA OR VOMITING Oxycodone/Acetaminophen (Percocet 5/325 Mg) 1 tab PO Q8H PRN PRN Reason: Pain (Scale Score 7-10) Last Admin: 10/29/18 18:16 Dose: 1 tab Pantoprazole Sodium (Protonix) 40 mg PO DAILY [facility] Last Admin: 10/30/18 11:06 Dose: 40 mg Sennosides (Senokot) 17.2 mg PO Q12H PRN PRN Reason: Moderate Constipation Sodium Chloride (Ns Flush) 2 ml IV.FLUSH PRN PRN PRN Reason: FLUSH AFTER USING IV ACCESS Sodium Chloride (Ns Flush) 5 ml IV.FLUSH PRN PRN PRN Reason: flush each lumen during HD Tamsulosin HCl (Flomax) 0.4 mg PO DAILY [facility] Last Admin: 10/30/18 11:05 Dose: 0.4 mg Physical Exam Vital Signs / I&O: Vital Signs 10/29/18 20:00 10/29/18 23:57 10/30/18 07:40 Temperature 97.6 F 96.8 F L Pulse Rate 52 L 60 Respiratory Rate 16 18 Blood Pressure 135/62 140/57 L Pulse Oximetry 98 100 99 10/30/18 08:00 Temperature 97.5 F L Pulse Rate 51 L Respiratory Rate 18 Blood Pressure 159/72 H Pulse Oximetry 100 Intake & Output 10/29/18 10/30/18 10/30/18 18:59 06:59 18:59 Intake Total 2170 / 2170 1450 / 1450 480 / 480 Output Total 25 / 25 200 / 200 Balance 2170 / 2170 1425 / 1425 280 / 280 Weight 62 kg Intake: IV 1450 / 1450 1450 / 1450 NS Inj 1,000 ML @ 30 mls/hr IV. 1000 / 1000 1000 / 1000 CONT .Q24H CYNDIE Rx#:[id number] Azithromycin Inj 500 MG In NS 250 / 250 250 / 250 Inj 250 ML @ 250 mls/hr IV.SIG Q24H CYNDIE Rx#:[id number] Azactam Inj 1,000 MG In NS Inj 200 / 200 200 / 200 100 ML @ 200 mls/hr IV.SIG Q8H CYNDIE Rx#:[id number] Oral 720 / 720 480 / 480 Output: Urine 25 / 25 200 / 200 Other: # Incontinent Voids 3 # Incontinent Bowel Movements 2 Vascular: Pressure dressing to L UE C/D Extremities: L UE motor intact Laboratory Results - last 24 hr 10/30/18 10/30/18 08:28 08:28 CBC w Diff Auto diff final WBC 5.9 RBC 2.68 L Hgb 7.9 L Hct 24.4 L MCV 91.0 MCH 29.7 MCHC 32.6 RDW 18.4 H Plt Count 157 MPV 6.6 L Neut % (Auto) 52.8 Lymph % (Auto) 40.7 [place] % (Auto) 4.1 Eos % (Auto) 1.2 Baso % (Auto) 1.2 Neut # (Auto) 3.1 Lymph # (Auto) 2.4 [place] # (Auto) 0.2 Eos # (Auto) 0.1 Baso # (Auto) 0.1 WBC Differential . Differential Comment . Sodium 143 Potassium 4.0 Chloride 110 H Carbon Dioxide 24.2 Anion Gap 9 BUN 28 H Creatinine 3.40 H Estimated GFR 18 L Random Glucose 75 Calcium 7.9 L Total Bilirubin 0.5 AST 14 L ALT Less than 6 L Alkaline Phosphatase 1595 H Total Protein 4.7 L D Albumin 1.9 L Microbiology 10/26/18 17:00 Aerobic Blood Culture - Preliminary Blood - Peripheral No growth in 4 days Anaerobic Blood Culture - Preliminary No growth in 4 days 10/26/18 17:00 Aerobic Blood Culture - Preliminary Blood - Peripheral No growth in 4 days Anaerobic Blood Culture - Preliminary No growth in 4 days 10/26/18 17:50 Urine Culture - Final Clean Catch Urine No growth in 48 hours Assessment and Plan - Plan 63/M with a Hx of ESRD on HD Pt w/ spontaneous rupture of his L UE AVF post HD Pressure dressing immediately applied and bleeding was controlled Discussed w/ pt, emergent access revision to his L UE Pt agreed and consents were obtained Plan Pt to the OR for a L UE Access revision Trice Lindsay NP [facility] [phone] - Attending Attestation Agree with above. Seen and examined with Trice. To OR emergently for access ligation.
[2018-10-30] MEDS ORDERED: Bupivacaine PF 0.5% Inj 30 ML Vial ONE (16:26)
[2018-10-30] MEDS ORDERED: Thrombin Topical Soln 5,000 UNIT Vial TOPICAL ONE (16:26)
[2018-10-30] MEDS ORDERED: Succinylcholine Inj 100 MG/5 ML Syringe IV.PUSH ONE (16:35)
[2018-10-30] MEDS ORDERED: Phenylephrine/NS 1000 MCG/10ML Syringe IV.PUSH ONE (16:35)
--- NOTE | 2018-10-30 16:37 | P.PNVS ---
Subjective Subjective/Hospital Course: Called emergently to [facility] for LEFT arm bleeding - pt is alert, has tourniquet on arm. Objective Vital Signs / I&O: Vital Signs 10/29/18 20:00 10/29/18 23:57 10/30/18 07:40 Temperature 97.6 F 96.8 F L Pulse Rate 52 L 60 Respiratory Rate 16 18 Blood Pressure 135/62 140/57 L Pulse Oximetry 98 100 99 10/30/18 08:00 Temperature 97.5 F L Pulse Rate 51 L Respiratory Rate 18 Blood Pressure 159/72 H Pulse Oximetry 100 Intake & Output 10/29/18 10/30/18 10/30/18 18:59 06:59 18:59 Intake Total 2170 / 2170 1450 / 1450 480 / 480 Output Total 25 / 25 200 / 200 Balance 2170 / 2170 1425 / 1425 280 / 280 Weight 62 kg Intake: IV 1450 / 1450 1450 / 1450 NS Inj 1,000 ML @ 30 mls/hr IV. 1000 / 1000 1000 / 1000 CONT .Q24H CYNDIE Rx#:[id number] Azithromycin Inj 500 MG In NS 250 / 250 250 / 250 Inj 250 ML @ 250 mls/hr IV.SIG Q24H CYNDIE Rx#:[id number] Azactam Inj 1,000 MG In NS Inj 200 / 200 200 / 200 100 ML @ 200 mls/hr IV.SIG Q8H CYNDIE Rx#:[id number] Oral 720 / 720 480 / 480 Output: Urine 25 / 25 200 / 200 Other: # Incontinent Voids 3 # Incontinent Bowel Movements 2 Physical Exam: L UE not bleeding at present. motor grossly intact Laboratory Results - last 24 hr 10/30/18 10/30/18 08:28 08:28 CBC w Diff Auto diff final WBC 5.9 RBC 2.68 L Hgb 7.9 L Hct 24.4 L MCV 91.0 MCH 29.7 MCHC 32.6 RDW 18.4 H Plt Count 157 MPV 6.6 L Neut % (Auto) 52.8 Lymph % (Auto) 40.7 [place] % (Auto) 4.1 Eos % (Auto) 1.2 Baso % (Auto) 1.2 Neut # (Auto) 3.1 Lymph # (Auto) 2.4 Bertie # (Auto) 0.2 Eos # (Auto) 0.1 Baso # (Auto) 0.1 WBC Differential . Differential Comment . Sodium 143 Potassium 4.0 Chloride 110 H Carbon Dioxide 24.2 Anion Gap 9 BUN 28 H Creatinine 3.40 H Estimated GFR 18 L Random Glucose 75 Calcium 7.9 L Total Bilirubin 0.5 AST 14 L ALT Less than 6 L Alkaline Phosphatase 1595 H Total Protein 4.7 L D Albumin 1.9 L Microbiology 10/26/18 17:00 Aerobic Blood Culture - Preliminary Blood - Peripheral No growth in 4 days Anaerobic Blood Culture - Preliminary No growth in 4 days 10/26/18 17:00 Aerobic Blood Culture - Preliminary Blood - Peripheral No growth in 4 days Anaerobic Blood Culture - Preliminary No growth in 4 days 10/26/18 17:50 Urine Culture - Final Clean Catch Urine No growth in 48 hours Assessment and Plan - Plan L UE access ligation. To [facility] post-op Discussed with patient who verbally agreed to procedure. Emergently to OR.
--- NOTE | 2018-10-30 16:44 | P.PNIM ---
Subjective Interval history: Follow-up for ESRD, fistula related hemorrhage and hemorrhagic shock. Patient started bleeding through his fistula on his left arm after dialysis. Approximately 500 cc of fluid was taken out during dialysis. After nurse informed me about patient's bleeding, I immediately went to the dialysis unit and called rapid response team. Patient's blood pressure was in the 70s systolic. We managed patient with fluid as well as transient use of Levophed. Vascular surgery took him to the OR emergently to ligate bleeding vessels. Physical Exam Vital signs: Vital Signs 10/29/18 20:00 10/29/18 23:57 10/30/18 07:40 Temperature 97.6 F 96.8 F L Pulse Rate 52 L 60 Respiratory Rate 16 18 Blood Pressure 135/62 140/57 L Pulse Oximetry 98 100 99 10/30/18 08:00 10/30/18 16:30 Temperature 97.5 F L Pulse Rate 51 L Respiratory Rate 18 Blood Pressure 159/72 H Pulse Oximetry 100 98 Intake & Output 10/29/18 10/30/18 10/30/18 18:59 06:59 18:59 Intake Total 2170 / 2170 1450 / 1450 480 / 480 Output Total 25 / 25 200 / 200 Balance 2170 / 2170 1425 / 1425 280 / 280 Weight 62 kg Intake: IV 1450 / 1450 1450 / 1450 NS Inj 1,000 ML @ 30 mls/hr IV. 1000 / 1000 1000 / 1000 CONT .Q24H [facility] Rx#:[id number] Azithromycin Inj 500 MG In NS 250 / 250 250 / 250 Inj 250 ML @ 250 mls/hr IV.SIG Q24H [facility] Rx#:[id number] Azactam Inj 1,000 MG In NS Inj 200 / 200 200 / 200 100 ML @ 200 mls/hr IV.SIG Q8H CY[facility] Rx#:[id number] Oral 720 / 720 480 / 480 Output: Urine 25 / 25 200 / 200 Other: # Incontinent Voids 3 # Incontinent Bowel Movements 2 Narrative: GENERAL: Patient appears pale and lethargic but able to answer questions. Able to give consent about surgery. HEAD: Normocephalic. NECK: Supple, trachea midline. No lymphadenopathy. EYES: No scleral icterus. No injection or drainage. CARDIOVASCULAR: Regular rate and rhythm (not tachycardic as would be expected) without murmurs, gallops, or rubs. RESPIRATORY: Breath sounds equal bilaterally. No accessory muscle use. GASTROINTESTINAL: Abdomen soft, non-tender, nondistended. MUSCULOSKELETAL: No cyanosis, or edema. SKIN: Warm and dry. NEURO: No focal neurological deficits. Results Labs CBC & Chem 7: 10/30/18 08:28 10/30/18 08:28 Labs: Microbiology 10/26/18 17:00 Blood - Peripheral Aerobic Blood Culture - Preliminary No growth in 4 days 10/26/18 17:00 Blood - Peripheral Anaerobic Blood Culture - Preliminary No growth in 4 days 10/26/18 17:00 Blood - Peripheral Aerobic Blood Culture - Preliminary No growth in 4 days 10/26/18 17:00 Blood - Peripheral Anaerobic Blood Culture - Preliminary No growth in 4 days Assessment and Plan (1) End stage renal disease: Code(s): N18.6 - End stage renal disease Status: Chronic (2) Metastatic malignant neoplasm to prostate: Code(s): C79.82 - Secondary malignant neoplasm of genital organs Status: Acute (3) Anemia: Code(s): D64.9 - Anemia, unspecified Status: Acute Plan 63-year-old male with a history of end-stage renal disease on hemodialysis Tuesday and Tuesday, anemia on iron supplementation, hypertension, hepatitis C and metastatic prostate cancer. [facility] because of altered mental status. He was noted to be confused and not responding to questions. In the ED he was found to have pneumonia and UTI and was given cefepime and Zithromax. Chest x-ray with mild infiltrate in the left lung base. EKG with sinus rhythm, PVC in lead III T inversion in V4 and V5 no significant change from previous. Hemorrhagic shock Due to fistula bleeding. We emergently evaluated patient and started bolus fluid as well as Levophed. Patient's blood pressure went to as low as 60 systolic. Emergently consulted vascular surgery and Dr. Alexandra 2 patient to go to ligate bleeding vessels. Patient was very lethargic. However, he was able to answer questions appropriately and was able to give consent for surgery. Total critical care time spent over 45 minutes. Acute encephalopathy secondary to sepsis metabolic and hepatic encephalopathy. Continue lactulose to make at least 3 loose stools per day Healthcare associated pneumonia Continue aztreonam (allergic to amoxicillin) Continue azithromycin Legionella antigen screen pending Pneumococcal antigen screen pending Follow blood cultures Follow sputum culture Urinary tract infection Continue antibiotics as listed above Follow urine culture Anemia Status post transfusion Continue iron Occult blood stool test pending Metastatic prostate cancer Patient has a high alkaline phosphatase. Palliative care consulted Full code. Patient was asked about code status, he requested full code. Progress Note: Quality VTE Deep Vein Thrombosis/Pulmonary Embolism Present on Admission: No _ (1) Anemia Qualifiers: Anemia type: due to chronic kidney disease Bone marrow failure anemia type: Chronic kidney disease stage: on chronic dialysis Folate deficiency anemia type: Hemolytic anemia type: Iron deficiency anemia type: Other causes of anemia: Vitamin B12 deficiency anemia type: Qualified Code(s): N18.6 - End stage renal disease; D63.1 - Anemia in chronic kidney disease; Z99.2 - Dependence on renal dialysis
--- NOTE | 2018-10-30 17:21 | P.OP ---
- Preoperative Diagnosis (1) End stage renal disease (2) Acute kidney injury superimposed on chronic kidney disease - Postoperative Diagnosis (1) Acute kidney injury superimposed on chronic kidney disease Date of procedure: 10/30/18 Procedure: Ligation of LEFT arm AVF Implants: none Anesthesia: GETA Surgeon: Tj Alexandra MD Estimated blood loss (mL): 50 IV fluids (mL): 600 Pathology: none sent Operation and Findings: 1U PRBC given bleeding AVF, ligated palpable radial pulse at end of case
--- NOTE | 2018-10-30 18:25 | P.PNNP ---
Subjective Interval history: Patient has perfuse bleeding from AV fistula which was eventually ligated by vascular surgeon Dr. Alexandra Physical Exam Vital signs: Vital Signs 10/29/18 20:00 10/29/18 23:57 10/30/18 07:40 Temperature 97.6 F 96.8 F L Pulse Rate 52 L 60 Respiratory Rate 16 18 Blood Pressure 135/62 140/57 L Pulse Oximetry 98 100 99 10/30/18 08:00 10/30/18 16:30 Temperature 97.5 F L Pulse Rate 51 L Respiratory Rate 18 Blood Pressure 159/72 H Pulse Oximetry 100 98 Intake & Output 10/29/18 10/30/18 10/30/18 18:59 06:59 18:59 Intake Total 2170 / 2170 1450 / 1450 480 / 480 Output Total 25 / 25 200 / 200 Balance 2170 / 2170 1425 / 1425 280 / 280 Weight 62 kg Intake: IV 1450 / 1450 1450 / 1450 NS Inj 1,000 ML @ 30 mls/hr IV. 1000 / 1000 1000 / 1000 CONT .Q24H [facility] Rx#:[id number] Azithromycin Inj 500 MG In NS 250 / 250 250 / 250 Inj 250 ML @ 250 mls/hr IV.SIG Q24H [facility] Rx#:[id number] Azactam Inj 1,000 MG In NS Inj 200 / 200 200 / 200 100 ML @ 200 mls/hr IV.SIG Q8H [facility] Rx#:[id number] Oral 720 / 720 480 / 480 Output: Urine 25 / 25 200 / 200 Other: # Incontinent Voids 3 # Incontinent Bowel Movements 2 Narrative: GENERAL: mal-nourished, well-developed patient. SKIN: Cold and dry. HEAD: Normocephalic. EYES: No scleral icterus. No injection or drainage. NECK: Supple, trachea midline. No JVD or lymphadenopathy. CARDIOVASCULAR: Regular rate and rhythm without murmurs, gallops, or rubs. RESPIRATORY: Breath sounds equal bilaterally. No accessory muscle use. GASTROINTESTINAL: Abdomen soft, non-tender, nondistended. EXTREMITIES: Loss of muscle mass, weak, AV fistula ligated and heavily bandaged NEUROLOGICAL: Awake, alert, confused Assessment and Plan - Assessment (1) End stage renal disease Code(s): N18.6 - End stage renal disease Status: Chronic Plan: Patient is on dialysis on Tuesday and Tuesday however he is doing very poorly due to metastatic prostate cancer PSA of 196 Alkaline phosphatase very high Metastatic cancer to the bone Poor prognosis Hemodialysis was done today but he had profuse bleeding as the needles were removed this did not stopped and continued beside applying ice and elevating his arm vascular surgeon has to be called to ligate the fistula I saw him in [facility] in PACU He was transfused with several blood products appears to be confused do not recall he was bleeding from AV fistula His prognosis remains very poor as above If dialysis needs to be continued we need to talk to the family continue supportive care (2) Metastatic malignant neoplasm to prostate Code(s): C79.82 - Secondary malignant neoplasm of genital organs Status: Acute Plan: Poor prognosis palliative care consult (3) Anemia Code(s): D64.9 - Anemia, unspecified Status: Acute Qualifiers: Anemia type: due to chronic kidney disease Chronic kidney disease stage: on chronic dialysis Qualified Code(s): N18.6 - End stage renal disease; D63.1 - Anemia in chronic kidney disease; Z99.2 - Dependence on renal dialysis Plan: Received 1 unit of packed red blood cell hemoglobin 8.1 from 6.9
--- NOTE | 2018-10-30 18:58 | MP ---
cc: Tj Alexandra MD DATE OF OPERATION: 10/30/2018 PREOPERATIVE DIAGNOSIS: Bleeding left upper extremity arteriovenous fistula. POSTOPERATIVE DIAGNOSIS: Bleeding left upper extremity arteriovenous fistula. PROCEDURE PERFORMED: Left upper extremity access ligation. ATTENDING SURGEON: Tj Alexandra MD ANESTHESIA: General. INDICATIONS: Mr. Ross is a 63-year-old gentleman who was in [facility] bleeding with his fistula, who was hypotensive and pressure in the 60s. He was taken to the operating room emergently. DESCRIPTION OF PROCEDURE: Informed consent was not obtained, though the patient was explained the procedure and he verbally agreed. Two attending physicians provided agreement that this was an emergency procedure. DESCRIPTION OF PROCEDURE: He was taken to the operating room and an appropriate timeout was taken to ensure the patient's identity, operative site and planned procedure. Vancomycin was administered during the case. His left arm was prepped and draped and an incision made at the base of the fistula and carried down through the subcutaneous tissues with electrocautery. This fistula was encircled with a vessel loop and dissected free. This was transected after clamping proximally and distally. The ____ was oversewn with 4-0 Prolene and the proximal was oversewn with 5-0 Prolene. The wound was irrigated, made hemostatic and closed with 3-0 Polysorb and 2-0 nylon. Sponge and needle counts were correct at the end of the case. I was present and scrubbed for the entire procedure. Tj Alexandra MD RJJessica/boris/mello , 05:24 PM , 05:29 PM
[2018-10-30] MEDS: Acetaminophen 325 MG Tablet PO PRN (19:13)
--- NOTE | 2018-10-30 21:35 | P.CONCC ---
History of Present Illness Primary Care Provider: UNKNOWN Chief Complaint: Altered mental status History of Present Illness: 63-year-old male with a history of end-stage renal disease on hemodialysis Tuesday and Tuesday, anemia on iron supplementation, hypertension, hepatitis C and metastatic prostate cancer. He was sent from a local custodial because of altered mental status. He was noted to be confused and not responding to questions. In the ED he was found to have pneumonia and UTI and was given cefepime and Zithromax. He has been having productive cough but no shortness of breath. He also has no UTI symptoms, fever and chills. Chest x- ray showed mild infiltrate in the left lung base. EKG demonstrated sinus rhythm , PVC in lead III T inversion in V4 and V5 no significant change from previous. He was admitted to [facility] for further evaluation and management of his altered mental status and infectious workup when he developed a ruptured of his left arm AV fistula while getting hemodialysis. He was emergently taken to the operating room by Dr. Alexandra and underwent ligation of LEFT arm AVF. Postprocedure he has been transferred to [facility] ICU. Review of Systems All other systems reviewed negative except as stated in HPI PMFSH - History History Provided By: Patient - Medical History Medical History: Medical History (Last Reviewed 10/30/18 @ 16:17 by Trice Lindsay) Acute renal failure Acute renal failure on dialysis Anemia Dyspnea Fistula Hypertension Kidney stone MDRO (multiple drug resistant organisms) resistance Onset Date: ~07/19/18 Prostate CA Sepsis Vascular dialysis catheter in place - Surgical History Surgical History: Surgical History (Last Reviewed 10/30/18 @ 16:17 by Trice Lindsay) AV fistula H/O major orthopedic surgery - Family History Family History: Family History (Last Reviewed 10/27/18 @ 12:05 by Morris Hollis MD) Mother Pneumonia Father CVA (cerebral vascular accident) Grandparent Prostate cancer - Tobacco History Second Hand Smoke Exposure: Yes Tobacco Use In Past 30 Days: Yes Smoking Status: Current every day smoker Tobacco Type: Cigarettes - Alcohol History How Often Do You Have a Drink Containing Alcohol: 4 or more times a week - Substance Use History Substance History: Active Abuse - Travel History Recent Travel in the [place] Within the Last 8 Weeks: No Recent Travel Out of the Country Within the Last 8 Weeks: No - Immunization History Tetanus Immunization: Unsure Hx Influenza Vaccine This Season: No Medications and Allergies Active Medications: Active Medications Acetaminophen (Tylenol) 650 mg PO Q4H PRN PRN Reason: Temp > 100.4 Last Admin: 10/30/18 19:13 Dose: 650 mg Acetaminophen (Tylenol) 650 mg PO UNSCH PRN PRN Reason: SEE LABEL COMMENTS Albuterol (Duoneb Neb (Prn)) 1 ampul NEB Q4HR NEB PRN PRN Reason: SHORTNESS OF BREATH/WHEEZING Atorvastatin Calcium (Lipitor) 20 mg PO [facility] Last Admin: 10/29/18 21:28 Dose: 20 mg Bicalutamide (Casodex) 50 mg PO [facility] Last Admin: 10/29/18 21:28 Dose: 50 mg Bisacodyl (Dulcolax Supp) 10 mg RECTAL DAILY PRN PRN Reason: SEVERE CONSITIPATION Calcium/Vitamin D (Oscal With D 250/125 Mg) 2 tab PO BID [facility] Last Admin: 10/30/18 11:06 Dose: 2 tab Chlorhexidine Gluconate (Chlorhexidine 2% Cloth) 3 pack TOPICAL DAILY@0400 [facility] Stop: 11/05/18 03:59 Chlorhexidine Gluconate (Chlorhexidine 2% Cloth) 3 pack TOPICAL DAILY@0400 PRN PRN Reason: Extra cloth needed Stop: 11/05/18 03:59 Clonidine HCl (Catapres) 0.1 mg PO UNSCH PRN PRN Reason: SEE LABEL COMMENTS Diphenhydramine HCl (Benadryl) 25 mg PO UNSCH PRN PRN Reason: SEE LABEL COMMENTS Dronabinol (Marinol) 10 mg PO BID [facility] Last Admin: 10/30/18 11:06 Dose: Not Given Epoetin Hermes (Epogen Inj) 10,000 unit IV.PUSH UNSCH PRN PRN Reason: SEE LABEL COMMENTS Last Admin: 10/27/18 13:43 Dose: 10,000 unit Ferrous Sulfate (Ferosul) 325 mg PO TID [facility] Last Admin: 10/30/18 19:35 Dose: Not Given Gelatin (Gelfoam 12 Mm/7 Mm Topical) 1 foam TOPICAL PRN PRN PRN Reason: help stop bleeding from site Gentamicin Sulfate (Gentamicin Inj) 20 mg OTHER WITH DIALYSIS PRN PRN Reason: Dwell Gentamycin Lock Heparin Sodium (Porcine) (Heparin Inj) 8,000 units OTHER WITH DIALYSIS PRN PRN Reason: for machine prime Last Admin: 10/30/18 16:53 Dose: 1,000 units Heparin Sodium (Porcine) (Heparin Inj) 1,000 units OTHER WITH DIALYSIS PRN PRN Reason: Dwell Heparin to Fill Catheter Sodium Chloride (Ns Inj) 250 mls @ 15 mls/hr IV.SIG ONCE [facility] Stop: 10/31/18 08:39 Last Admin: 10/30/18 17:08 Dose: 15 mls/hr Sodium Chloride (Ns Inj) 1,000 mls @ 30 mls/hr IV.CONT .Q24H [facility] Last Admin: 10/29/18 21:26 Dose: 30 mls/hr Azithromycin 500 mg/ Sodium (Chloride) 250 mls @ 250 mls/hr IV.SIG Q24H [facility] Last Infusion: 10/30/18 00:14 Dose: Infused Aztreonam 1,000 mg/ Sodium (Chloride) 100 mls @ 200 mls/hr IV.SIG Q8H [facility] Last Infusion: 10/30/18 05:30 Dose: Infused Albumin Human (Flexbumin 25% Inj) 100 mls @ 60 mls/hr IV.SIG WITH DIALYSIS PRN PRN Reason: hypotension / volume replace Last Infusion: 10/27/18 13:46 Dose: Infused Sodium Chloride (Ns Inj) 1,000 mls @ 0 mls/hr OTHER .Q0M PRN PRN Reason: for prime and rinse back Sodium Chloride (Ns Inj) 1,000 mls @ 200 mls/hr OTHER .Q5H PRN PRN Reason: for dialyzer flush PRN Sodium Chloride (Ns Inj) 1,000 mls @ 0 mls/hr IV.CONT .Q0M PRN PRN Reason: hypotension / volume replace Lactulose (Lactulose Liq) 30 ml PO DAILY PRN PRN Reason: SEVERE CONSITIPATION Lactulose (Lactulose Liq) 30 ml PO BID [facility] Last Admin: 10/30/18 11:05 Dose: 30 ml Lactulose (Lactulose Liq) 30 ml PO DAILY PRN PRN Reason: SEVERE CONSITIPATION Magnesium Oxide (Mag-Ox) 400 mg PO DAILY [facility] Last Admin: 10/30/18 11:05 Dose: 400 mg Mannitol (Mannitol Inj) 12.5 gm IV.PUSH UNSCH PRN PRN Reason: hypotension / volume replace Metoprolol Tartrate (Lopressor) 12.5 mg PO BID [facility] Last Admin: 10/30/18 11:06 Dose: 12.5 mg Nitroglycerin (Nitrostat Sl) 0.4 mg SL Q5M PRN PRN Reason: CHEST PAIN Ondansetron HCl (Zofran Inj) 4 mg IV.PUSH Q6H PRN PRN Reason: NAUSEA OR VOMITING Ondansetron HCl (Zofran Inj) 4 mg IV.PUSH UNSCH PRN PRN Reason: NAUSEA OR VOMITING Oxycodone/Acetaminophen (Percocet 5/325 Mg) 1 tab PO Q8H PRN PRN Reason: Pain (Scale Score 7-10) Last Admin: 10/30/18 18:22 Dose: 1 tab Pantoprazole Sodium (Protonix) 40 mg PO DAILY [facility] Last Admin: 10/30/18 11:06 Dose: 40 mg Sennosides (Senokot) 17.2 mg PO Q12H PRN PRN Reason: Moderate Constipation Sodium Chloride (Ns Flush) 2 ml IV.FLUSH BID [facility] Sodium Chloride (Ns Flush) 2 ml IV.FLUSH PRN PRN PRN Reason: FLUSH AFTER USING IV ACCESS Sodium Chloride (Ns Flush) 2 ml IV.FLUSH PRN PRN PRN Reason: FLUSH AFTER USING IV ACCESS Sodium Chloride (Ns Flush) 5 ml IV.FLUSH PRN PRN PRN Reason: flush each lumen during HD Tamsulosin HCl (Flomax) 0.4 mg PO DAILY [facility] Last Admin: 10/30/18 11:05 Dose: 0.4 mg Allergies Allergy/AdvReac Type Severity Reaction Status Date / Time Tetanus Vaccines and Toxoid Allergy Severe Fever Verified 10/26/18 16:41 amoxicillin AdvReac Mild Nausea/Vomi Verified 10/26/18 16:41 ting Home Medications Medication Instructions Recorded Confirmed Type bicalutamide 50 mg PO HS 07/09/18 10/26/18 History tamsulosin [Flomax] 0.4 mg PO DAILY 07/09/18 10/26/18 History B complex-vitamin C-folic acid 1 tab PO DAILY 10/26/18 10/26/18 History [Sindy-Steph] acetaminophen [Tylenol] 325 mg PO Q6H PRN 10/26/18 10/26/18 History calcium carbonate-vitamin D3 1 tab PO BID 10/26/18 10/26/18 History dronabinol 10 mg PO BID 10/26/18 10/26/18 History ferrous sulfate 325 mg PO TID 10/26/18 10/26/18 History magnesium oxide 400 mg PO QAM 10/26/18 10/26/18 History oxycodone-acetaminophen 1 tab PO Q8H PRN 10/26/18 10/26/18 History pantoprazole 40 mg PO DAILY 10/26/18 10/26/18 History Physical Exam Vital signs: Vital Signs 10/29/18 23:57 10/30/18 07:40 10/30/18 08:00 Temperature 96.8 F L 97.5 F L Pulse Rate 60 51 L Respiratory Rate 18 18 Blood Pressure 140/57 L 159/72 H Pulse Oximetry 100 99 100 10/30/18 16:21 10/30/18 16:30 10/30/18 17:08 Temperature Pulse Rate 73 90 Respiratory Rate 20 Blood Pressure 70/47 L 110/60 Pulse Oximetry 100 98 10/30/18 17:18 10/30/18 17:43 10/30/18 18:00 Temperature Pulse Rate 80 82 79 Respiratory Rate 20 16 16 Blood Pressure 130/70 118/71 133/73 Pulse Oximetry 99 94 L 10/30/18 18:15 10/30/18 18:30 10/30/18 18:45 Temperature Pulse Rate 76 72 79 Respiratory Rate 20 20 16 Blood Pressure 113/71 110/59 L 113/70 Pulse Oximetry 97 100 100 10/30/18 18:53 10/30/18 19:03 Temperature 97.2 F L Pulse Rate 78 Respiratory Rate 20 Blood Pressure 119/63 127/63 Pulse Oximetry 100 Intake & Output 10/30/18 10/30/18 10/31/18 06:59 18:59 06:59 Intake Total 1450 / 1450 880 / 880 Output Total 25 / 25 200 / 200 Balance 1425 / 1425 680 / 680 Weight 62 kg 62 kg Intake: IV 1450 / 1450 NS Inj 1,000 ML @ 30 mls/hr IV. 1000 / 1000 CONT .Q24H [facility] Rx#:[id number] Azithromycin Inj 500 MG In NS 250 / 250 Inj 250 ML @ 250 mls/hr IV.SIG Q24H [facility] Rx#:[id number] Azactam Inj 1,000 MG In NS Inj 200 / 200 100 ML @ 200 mls/hr IV.SIG Q8H [facility] Rx#:[id number] Oral 480 / 480 Intake (Blood Product) Amt 400 / 400 Rbc As-3 Leukoreduced Unit 400 / 400 [id number] Output: Urine 25 / 25 200 / 200 Other: Date of Last Bowel Movement 10/30/18 Weight On Admission 62 kg - Constitutional no acute distress - Routine HEENT Exam Head: Present: normocephalic, atraumatic Eye: Present: EOMI, PERRL ENT: Present: mucous membranes moist - Routine Neck Exam Present: supple, full ROM. Absent: JVD, carotid bruit - Routine Respiratory Exam Absent: accessory muscle use, wheezes, crackles - Routine Cardiovascular Exam Present: RRR, S1, S2 - Routine Abdominal Exam Present: soft, normoactive bowel sounds - Routine Extremities Exam Absent: cyanosis, clubbing - Routine Skin Exam Present: intact. Absent: cyanosis, erythema - Routine Neurological Exam Present: alert, oriented X3, moving all extremities Septic Shock Reassessment Septic shock perfusion: reassessment completed Assessment and Plan - Assessment and Plan Plan: Hemorrhagic shock Due to fistula bleeding. Status post autologous and of AVF -Hemostasis achieved -Hemodynamically improved -Monitor H&H and transfuse when indicated ESRD -Hemodialysis per nephrology Acute encephalopathy -Metabolic toxic -secondary to infection -Ammonia slightly elevated -Continue lactulose Healthcare associated pneumonia -Aztreonam and azithromycin -Follow-up blood cultures -Follow-up urine antigens -De-escalate per sensitivities Urinary tract infection -Broad-spectrum antibiotics as above Anemia -Blood loss anemia -Monitor H&H -Transfuse when indicated -Continue iron supplement Metastatic prostate cancer -Palliative care consultation DVT GI prophylaxis -Teds SCDs -No pharmacological DVT prophylaxis due to hemorrhagic shock -Pepcid 35 minutes of critical care
[2018-10-30] MEDS: Azithromycin Inj 500 MG in Sodium Chlor 0.9% Inj 250 ML IV.SIG SCH (23:19)
[2018-10-30] MEDS: Sod Chloride 0.9% Inj 1,000 ML IV.CONT SCH (23:32)
[2018-10-31] MEDS: Chlorhexidine Gluconate 2% 1 Pack (2 Cloths) TOPICAL SCH (03:57)
[2018-10-31] MEDS ORDERED: Chlorhexidine Gluconate 2% 1 Pack (2 Cloths) TOPICAL PRN (04:00)
[2018-10-31] MEDS: Acetaminophen 325 MG Tablet PO PRN (06:36)
--- NOTE | 2018-10-31 07:56 | P.PNVS ---
Subjective Post Op Day #: 1 Procedure: LEFT arm access ligation Subjective/Hospital Course: looks great notes "I almost yesterday" arm feels good to him no hand pain Objective Vital Signs / I&O: Vital Signs 10/30/18 08:00 10/30/18 16:21 10/30/18 16:30 Temperature 97.5 F L Pulse Rate 51 L 73 Respiratory Rate 18 Blood Pressure 159/72 H 70/47 L Pulse Oximetry 100 100 98 10/30/18 17:08 10/30/18 17:18 10/30/18 17:43 Temperature Pulse Rate 90 80 82 Respiratory Rate 20 20 16 Blood Pressure 110/60 130/70 118/71 Pulse Oximetry 99 10/30/18 18:00 10/30/18 18:15 10/30/18 18:30 Temperature Pulse Rate 79 76 72 Respiratory Rate 16 20 20 Blood Pressure 133/73 113/71 110/59 L Pulse Oximetry 94 L 97 100 10/30/18 18:45 10/30/18 18:53 10/30/18 19:03 Temperature 97.2 F L Pulse Rate 79 78 Respiratory Rate 16 20 Blood Pressure 113/70 119/63 127/63 Pulse Oximetry 100 100 10/30/18 23:07 10/31/18 00:00 10/31/18 00:01 Temperature Pulse Rate 65 65 62 Respiratory Rate 15 15 14 Blood Pressure 171/72 H 175/79 H Pulse Oximetry 99 94 L 95 10/31/18 01:00 10/31/18 01:01 10/31/18 02:00 Temperature Pulse Rate 66 67 65 Respiratory Rate 51 H 40 H 39 H Blood Pressure 156/87 H 150/65 H Pulse Oximetry 97 89 L 100 10/31/18 02:01 10/31/18 03:00 10/31/18 04:00 Temperature Pulse Rate 65 63 65 Respiratory Rate 40 H 28 H 24 Blood Pressure 152/65 H 145/69 H Pulse Oximetry 100 99 99 10/31/18 04:01 10/31/18 05:00 10/31/18 05:01 Temperature Pulse Rate 65 68 67 Respiratory Rate 22 21 22 Blood Pressure 169/70 H 158/74 H Pulse Oximetry 98 100 100 10/31/18 06:00 10/31/18 06:01 10/31/18 06:07 Temperature Pulse Rate 79 79 77 Respiratory Rate 44 H 40 H 48 H Blood Pressure 189/84 H 173/66 H Pulse Oximetry Intake & Output 10/30/18 10/31/18 10/31/18 18:59 06:59 18:59 Intake Total 880 / 880 1450 / 1450 Output Total 200 / 200 Balance 680 / 680 1450 / 1450 Weight 62.5 kg Intake: IV 1200 / 1200 NS Inj 1,000 ML @ 30 mls/hr IV. 1000 / 1000 CONT .Q24H CYNDIE Rx#:[id number] Azactam Inj 1,000 MG In NS Inj 200 / 200 100 ML @ 200 mls/hr IV.SIG Q8H CYNDIE Rx#:[id number] Oral 480 / 480 250 / 250 Intake (Blood Product) Amt 400 / 400 Rbc As-3 Leukoreduced Unit 400 / 400 [id number] Output: Urine 200 / 200 Other: # Incontinent Voids 1 Date of Last Bowel Movement 10/30/18 Weight On Admission 62 kg Exam: resting in bed, no distress Pulses: palpable radial pulse good hand strength Laboratory Results - last 24 hr 10/26/18 10/30/18 10/30/18 18:45 08:28 08:28 CBC w Diff Auto diff final WBC 5.9 RBC 2.68 L Hgb 7.9 L Hct 24.4 L MCV 91.0 MCH 29.7 MCHC 32.6 RDW 18.4 H Plt Count 157 MPV 6.6 L Neut % (Auto) 52.8 Lymph % (Auto) 40.7 [place] % (Auto) 4.1 Eos % (Auto) 1.2 Baso % (Auto) 1.2 Neut # (Auto) 3.1 Lymph # (Auto) 2.4 [place] # (Auto) 0.2 Eos # (Auto) 0.1 Baso # (Auto) 0.1 WBC Differential . Differential Comment . Sodium 143 Potassium 4.0 Chloride 110 H Carbon Dioxide 24.2 Anion Gap 9 BUN 28 H Creatinine 3.40 H Estimated GFR 18 L Random Glucose 75 Calcium 7.9 L Total Bilirubin 0.5 AST 14 L ALT Less than 6 L Alkaline Phosphatase 1595 H Total Protein 4.7 L D Albumin 1.9 L Nasal Screen MRSA (PCR) Blood Type Blood Type Recheck Antibody Screen MTS Gel Crossmatch See Detail Bld Prod Order Comment 0210/30/18 10/30/18 15:58 16:23 16:33 CBC w Diff WBC RBC Hgb Hct MCV MCH MCHC RDW Plt Count MPV Neut % (Auto) Lymph % (Auto) [place] % (Auto) Eos % (Auto) Baso % (Auto) Neut # (Auto) Lymph # (Auto) [place] # (Auto) Eos # (Auto) Baso # (Auto) WBC Differential Differential Comment Sodium Potassium Chloride Carbon Dioxide Anion Gap BUN Creatinine Estimated GFR Random Glucose Calcium Total Bilirubin AST ALT Alkaline Phosphatase Total Protein Albumin Nasal Screen MRSA (PCR) Blood Type Cancelled O Negative Blood Type Recheck Cancelled Antibody Screen Cancelled Negative MTS Gel Crossmatch See Detail See Detail Bld Prod Order Comment Cancelled 10/30/18 10/30/18 16:42 20:15 CBC w Diff WBC RBC Hgb Hct MCV MCH MCHC RDW Plt Count MPV Neut % (Auto) Lymph % (Auto) [place] % (Auto) Eos % (Auto) Baso % (Auto) Neut # (Auto) Lymph # (Auto) [place] # (Auto) Eos # (Auto) Baso # (Auto) WBC Differential Differential Comment Sodium Potassium Chloride Carbon Dioxide Anion Gap BUN Creatinine Estimated GFR Random Glucose Calcium Total Bilirubin AST ALT Alkaline Phosphatase Total Protein Albumin Nasal Screen MRSA (PCR) Mrsa detected Blood Type Blood Type Recheck Antibody Screen MTS Gel Crossmatch See Detail Bld Prod Order Comment Microbiology 10/26/18 17:00 Aerobic Blood Culture - Preliminary Blood - Peripheral No growth in 4 days Anaerobic Blood Culture - Preliminary No growth in 4 days 10/26/18 17:00 Aerobic Blood Culture - Preliminary Blood - Peripheral No growth in 4 days Anaerobic Blood Culture - Preliminary No growth in 4 days Assessment and Plan - Plan POD#1 s/p emergent LEFT arm access ligation 1. will need tunneled catheter for HD 2. Given palliative care for metastatic prostate CA, I would favor tunneled catheter moving forward in lieu of surgical access 3. Dressing changes to arm including ointment to skin tears
[2018-10-31] MEDS: Magnesium Oxide 400 MG Tablet PO SCH (08:35)
[2018-10-31] MEDS: Ferrous Sulfate 325 MG Tablet PO SCH ×3 (08:35→17:27)
[2018-10-31] MEDS: Calcium/Vitamin D 250/125 MG Tablet PO SCH ×2 (08:35→20:25)
[2018-10-31] MEDS: Metoprolol Tartrate 25 MG Tablet PO SCH ×2 (08:36→20:26)
[2018-10-31 11:31] LABS: Baso % (Auto) 0.2 % (0.0-2.0); Hematocrit 28.1 % (39.0-51.0); Hemoglobin 9.6 gm/dL (13.0-17.0); Lymph # (Auto) 3.8 th/mm3 (1.0-4.8); Lymph % (Auto) 38.3 % (9.0-44.0); Mean Corpuscular HGB Conc 34.2 % (32.0-36.0); Mean Corpuscular Hemoglobin 30.5 pg (27.0-34.0); Mean Corpuscular Volume 89.3 fL (80.0-100.0); Mean Platelet Volume 7.2 fL (7.0-11.0); Mono # (Auto) 0.4 th/mm3 (0.0-0.9); Mono % (Auto) 4.1 % (0.0-8.0); Neut # (Auto) 5.7 th/mm3 (1.8-7.7); Neut % (Auto) 57.4 % (16.0-70.0); Platelet Count 158 th/mm3 (150-450); Red Blood Count 3.15 mil/mm3 (4.50-5.90); Red Cell Distribution Width 21.7 % (11.6-17.2)
[2018-10-31 12:00] LABS: Alanine Aminotransferase 8 U/L (12-78); Albumin 2.4 g/dL (3.4-5.0); Anion Gap 12 meq/L (5-15); Aspartate Aminotransferase 45 U/L (15-37); Blood Urea Nitrogen 21 mg/dL (7-18); Calcium 8.6 mg/dL (8.5-10.1); Carbon Dioxide 23.3 meq/L (21.0-32.0); Chloride 105 meq/L (98-107); Glomerular Filtration Rate 27 mL/min (>89); Glucose,Random 110 mg/dL (74-106); Potassium 4.7 meq/L (3.5-5.1); Sodium 140 meq/L (136-145)
[2018-10-31 12:15] LABS: Alkaline Phosphatase 1933 U/L (45-117); Total Protein 5.7 g/dL (6.4-8.2)
--- NOTE | 2018-10-31 12:39 | P.PNVS ---
Subjective Post Op Day #: 1 Procedure: LEFT arm access ligation Subjective/Hospital Course: 63/M w/ a flat affect/Alert and responsive Pt s/p L UE access ligation POD 1 Pt does not endorse any hand pain Palpable distal pulse present (L Radial 2+) L UE warm w/ motor intact Dressing changed at the BS Incision I/C/D w/ sutures in place Objective Vital Signs / I&O: Vital Signs 10/30/18 16:21 10/30/18 16:30 10/30/18 17:08 Temperature Pulse Rate 73 90 Respiratory Rate 20 Blood Pressure 70/47 L 110/60 Pulse Oximetry 100 98 10/30/18 17:18 10/30/18 17:43 10/30/18 18:00 Temperature Pulse Rate 80 82 79 Respiratory Rate 20 16 16 Blood Pressure 130/70 118/71 133/73 Pulse Oximetry 99 94 L 10/30/18 18:15 10/30/18 18:30 10/30/18 18:45 Temperature Pulse Rate 76 72 79 Respiratory Rate 20 20 16 Blood Pressure 113/71 110/59 L 113/70 Pulse Oximetry 97 100 100 10/30/18 18:53 10/30/18 19:03 10/30/18 23:07 Temperature 97.2 F L Pulse Rate 78 65 Respiratory Rate 20 15 Blood Pressure 119/63 127/63 171/72 H Pulse Oximetry 100 99 10/31/18 00:00 10/31/18 00:01 10/31/18 01:00 Temperature Pulse Rate 65 62 66 Respiratory Rate 15 14 51 H Blood Pressure 175/79 H Pulse Oximetry 94 L 95 97 10/31/18 01:01 10/31/18 02:00 10/31/18 02:01 Temperature Pulse Rate 67 65 65 Respiratory Rate 40 H 39 H 40 H Blood Pressure 156/87 H 150/65 H 152/65 H Pulse Oximetry 89 L 100 100 10/31/18 03:00 10/31/18 04:00 10/31/18 04:01 Temperature Pulse Rate 63 65 65 Respiratory Rate 28 H 24 22 Blood Pressure 145/69 H 169/70 H Pulse Oximetry 99 99 98 10/31/18 05:00 10/31/18 05:01 10/31/18 06:00 Temperature Pulse Rate 68 67 79 Respiratory Rate 21 22 44 H Blood Pressure 158/74 H Pulse Oximetry 100 100 10/31/18 06:01 10/31/18 06:07 10/31/18 07:00 Temperature Pulse Rate 79 77 74 Respiratory Rate 40 H 48 H 32 H Blood Pressure 189/84 H 173/66 H Pulse Oximetry 99 10/31/18 07:01 10/31/18 07:10 10/31/18 08:00 Temperature 96.9 F L Pulse Rate 70 69 70 Respiratory Rate 43 H 31 H 32 H Blood Pressure 192/75 H 161/69 H 171/74 H Pulse Oximetry 100 100 100 10/31/18 08:54 10/31/18 09:00 10/31/18 10:00 Temperature Pulse Rate 68 62 Respiratory Rate 17 15 Blood Pressure 168/79 H Pulse Oximetry 100 100 100 10/31/18 10:01 10/31/18 11:00 10/31/18 11:01 Temperature Pulse Rate 64 67 65 Respiratory Rate 14 20 18 Blood Pressure 158/74 H 167/73 H Pulse Oximetry 100 100 100 10/31/18 12:00 10/31/18 12:01 Temperature 97.0 F L Pulse Rate 67 67 Respiratory Rate 23 19 Blood Pressure 161/68 H Pulse Oximetry 99 100 Intake & Output 10/30/18 10/31/18 10/31/18 18:59 06:59 18:59 Intake Total 880 / 880 1450 / 1450 Output Total 700 / 700 Balance 180 / 180 1450 / 1450 Weight 62.5 kg Intake: IV 1200 / 1200 NS Inj 1,000 ML @ 30 mls/hr IV. 1000 / 1000 CONT .Q24H CYNDIE Rx#:[id number] Azactam Inj 1,000 MG In NS Inj 200 / 200 100 ML @ 200 mls/hr IV.SIG Q8H CYNDIE Rx#:[id number] Oral 480 / 480 250 / 250 Intake (Blood Product) Amt 400 / 400 Rbc As-3 Leukoreduced Unit 400 / 400 [id number] Output: Urine 200 / 200 Hemodialysis Amount 500 / 500 Other: # Incontinent Voids 1 Date of Last Bowel Movement 10/30/18 10/30/18 Weight On Admission 62 kg Exam: No hand pain Palpable L radial pulse 2+ Incision to L UE I/C/D w/o erythema/Swelling/Sutures intact Pt w/ multiple skin tears to lateral aspect of upper arm and medial aspect of L LE Laboratory Results - last 24 hr 10/26/18 10/30/18 10/30/18 18:45 15:58 16:23 WBC RBC Hgb Hct MCV MCH MCHC RDW Plt Count MPV Neut % (Auto) Lymph % (Auto) [place] % (Auto) Eos % (Auto) Baso % (Auto) Neut # (Auto) Lymph # (Auto) [place] # (Auto) Eos # (Auto) Baso # (Auto) WBC Differential Differential Comment Sodium Potassium Chloride Carbon Dioxide Anion Gap BUN Creatinine Estimated GFR Random Glucose Calcium Total Bilirubin AST ALT Alkaline Phosphatase Total Protein Albumin Nasal Screen MRSA (PCR) Blood Type Cancelled Blood Type Recheck Cancelled Antibody Screen Cancelled MTS Gel Crossmatch See Detail See Detail Bld Prod Order Comment Cancelled 10/30/18 10/30/18 10/30/18 16:33 16:42 20:15 WBC RBC Hgb Hct MCV MCH MCHC RDW Plt Count MPV Neut % (Auto) Lymph % (Auto) [place] % (Auto) Eos % (Auto) Baso % (Auto) Neut # (Auto) Lymph # (Auto) [place] # (Auto) Eos # (Auto) Baso # (Auto) WBC Differential Differential Comment Sodium Potassium Chloride Carbon Dioxide Anion Gap BUN Creatinine Estimated GFR Random Glucose Calcium Total Bilirubin AST ALT Alkaline Phosphatase Total Protein Albumin Nasal Screen MRSA (PCR) Mrsa detected Blood Type O Negative Blood Type Recheck Antibody Screen Negative MTS Gel Crossmatch See Detail See Detail Bld Prod Order Comment 10/31/18 10/31/18 10:45 10:45 WBC 10.0 RBC 3.15 L Hgb 9.6 L Hct 28.1 L MCV 89.3 MCH 30.5 MCHC 34.2 RDW 21.7 H D Plt Count 158 MPV 7.2 Neut % (Auto) 57.4 Lymph % (Auto) 38.3 [place] % (Auto) 4.1 Eos % (Auto) 0.0 Baso % (Auto) 0.2 Neut # (Auto) 5.7 Lymph # (Auto) 3.8 [place] # (Auto) 0.4 Eos # (Auto) 0.0 Baso # (Auto) 0.0 WBC Differential . Differential Comment Auto diff final Sodium 140 Potassium 4.7 Chloride 105 Carbon Dioxide 23.3 Anion Gap 12 BUN 21 H Creatinine 2.45 H Estimated GFR 27 L Random Glucose 110 H Calcium 8.6 Total Bilirubin 0.6 AST 45 H ALT 8 L Alkaline Phosphatase 1933 H Total Protein 5.7 L D Albumin 2.4 L Nasal Screen MRSA (PCR) Blood Type Blood Type Recheck Antibody Screen MTS Gel Crossmatch Bld Prod Order Comment Microbiology 10/26/18 17:00 Aerobic Blood Culture - Final Blood - Peripheral No growth in 5 days Anaerobic Blood Culture - Final No growth in 5 days 10/26/18 17:00 Aerobic Blood Culture - Final Blood - Peripheral No growth in 5 days Anaerobic Blood Culture - Final No growth in 5 days Assessment and Plan - Plan POD#1 s/p emergent LEFT arm access ligation 1. will need tunneled catheter for HD 2. Given palliative care for metastatic prostate CA, I would favor tunneled catheter moving forward in lieu of surgical access 3. Dressing changes to arm including ointment to skin tears Discharge Plannin/M s/p emergent LEFT arm access ligation Plan Changed LEFT UE dressing at the BS- Will change again tomorrow am Pt will need tunneled catheter for HD Trice Lindsay NP [facility] [phone]
--- NOTE | 2018-10-31 13:57 | P.PNNP ---
Subjective Interval history: Sitting up in the edge of bed with physical therapy, very fatigued. <Marta Barraza - Last Filed: 10/31/18 13:47> Physical Exam Vital signs: Vital Signs 10/30/18 16:21 10/30/18 16:30 10/30/18 17:08 Temperature Pulse Rate 73 90 Respiratory Rate 20 Blood Pressure 70/47 L 110/60 Pulse Oximetry 100 98 10/30/18 17:18 10/30/18 17:43 10/30/18 18:00 Temperature Pulse Rate 80 82 79 Respiratory Rate 20 16 16 Blood Pressure 130/70 118/71 133/73 Pulse Oximetry 99 94 L 10/30/18 18:15 10/30/18 18:30 10/30/18 18:45 Temperature Pulse Rate 76 72 79 Respiratory Rate 20 20 16 Blood Pressure 113/71 110/59 L 113/70 Pulse Oximetry 97 100 100 10/30/18 18:53 10/30/18 19:03 10/30/18 23:07 Temperature 97.2 F L Pulse Rate 78 65 Respiratory Rate 20 15 Blood Pressure 119/63 127/63 171/72 H Pulse Oximetry 100 99 10/31/18 00:00 10/31/18 00:01 10/31/18 01:00 Temperature Pulse Rate 65 62 66 Respiratory Rate 15 14 51 H Blood Pressure 175/79 H Pulse Oximetry 94 L 95 97 10/31/18 01:01 10/31/18 02:00 10/31/18 02:01 Temperature Pulse Rate 67 65 65 Respiratory Rate 40 H 39 H 40 H Blood Pressure 156/87 H 150/65 H 152/65 H Pulse Oximetry 89 L 100 100 10/31/18 03:00 10/31/18 04:00 10/31/18 04:01 Temperature Pulse Rate 63 65 65 Respiratory Rate 28 H 24 22 Blood Pressure 145/69 H 169/70 H Pulse Oximetry 99 99 98 10/31/18 05:00 10/31/18 05:01 10/31/18 06:00 Temperature Pulse Rate 68 67 79 Respiratory Rate 21 22 44 H Blood Pressure 158/74 H Pulse Oximetry 100 100 10/31/18 06:01 10/31/18 06:07 10/31/18 07:00 Temperature Pulse Rate 79 77 74 Respiratory Rate 40 H 48 H 32 H Blood Pressure 189/84 H 173/66 H Pulse Oximetry 99 10/31/18 07:01 10/31/18 07:10 10/31/18 08:00 Temperature 96.9 F L Pulse Rate 70 69 70 Respiratory Rate 43 H 31 H 32 H Blood Pressure 192/75 H 161/69 H 171/74 H Pulse Oximetry 100 100 100 10/31/18 08:54 10/31/18 09:00 10/31/18 10:00 Temperature Pulse Rate 68 62 Respiratory Rate 17 15 Blood Pressure 168/79 H Pulse Oximetry 100 100 100 10/31/18 10:01 10/31/18 11:00 10/31/18 11:01 Temperature Pulse Rate 64 67 65 Respiratory Rate 14 20 18 Blood Pressure 158/74 H 167/73 H Pulse Oximetry 100 100 100 10/31/18 12:00 10/31/18 12:01 10/31/18 13:00 Temperature 97.0 F L Pulse Rate 67 67 62 Respiratory Rate 23 19 12 Blood Pressure 161/68 H Pulse Oximetry 99 100 98 10/31/18 13:01 Temperature Pulse Rate 63 Respiratory Rate 12 Blood Pressure 183/70 H Pulse Oximetry 96 Intake & Output 10/30/18 10/31/18 10/31/18 18:59 06:59 18:59 Intake Total 880 / 880 1450 / 1450 100 / 100 Output Total 700 / 700 Balance 180 / 180 1450 / 1450 100 / 100 Weight 62.5 kg Intake: IV 1200 / 1200 100 / 100 NS Inj 1,000 ML @ 30 mls/hr IV. 1000 / 1000 CONT .Q24H CYNDIE Rx#:[id number] Azactam Inj 1,000 MG In NS Inj 200 / 200 100 / 100 100 ML @ 200 mls/hr IV.SIG Q8H CYNDIE Rx#:[id number] Oral 480 / 480 250 / 250 Intake (Blood Product) Amt 400 / 400 Rbc As-3 Leukoreduced Unit 400 / 400 [id number] Output: Urine 200 / 200 Hemodialysis Amount 500 / 500 Other: # Incontinent Voids 1 Date of Last Bowel Movement 10/30/18 10/30/18 Weight On Admission 62 kg Narrative: GENERAL: mal-nourished, looks very ill, lethargic SKIN: Cold and dry. HEAD: Normocephalic. EYES: No scleral icterus. No injection or drainage. NECK: Supple, trachea midline. No JVD or lymphadenopathy. CARDIOVASCULAR: Regular rate and rhythm without murmurs, gallops, or rubs. RESPIRATORY: Breath sounds equal bilaterally. No accessory muscle use. GASTROINTESTINAL: Abdomen soft, non-tender, nondistended. EXTREMITIES: Loss of muscle mass, weak, AV fistula ligated and heavily bandaged NEUROLOGICAL: Awake, confused <MadiMarta - Last Filed: 10/31/18 13:47> Vital signs: Vital Signs 10/30/18 16:21 10/30/18 16:30 10/30/18 17:08 Temperature Pulse Rate 73 90 Respiratory Rate 20 Blood Pressure 70/47 L 110/60 Pulse Oximetry 100 98 10/30/18 17:18 10/30/18 17:43 10/30/18 18:00 Temperature Pulse Rate 80 82 79 Respiratory Rate 20 16 16 Blood Pressure 130/70 118/71 133/73 Pulse Oximetry 99 94 L 10/30/18 18:15 10/30/18 18:30 10/30/18 18:45 Temperature Pulse Rate 76 72 79 Respiratory Rate 20 20 16 Blood Pressure 113/71 110/59 L 113/70 Pulse Oximetry 97 100 100 10/30/18 18:53 10/30/18 19:03 10/30/18 23:07 Temperature 97.2 F L Pulse Rate 78 65 Respiratory Rate 20 15 Blood Pressure 119/63 127/63 171/72 H Pulse Oximetry 100 99 10/31/18 00:00 10/31/18 00:01 10/31/18 01:00 Temperature Pulse Rate 65 62 66 Respiratory Rate 15 14 51 H Blood Pressure 175/79 H Pulse Oximetry 94 L 95 97 10/31/18 01:01 10/31/18 02:00 10/31/18 02:01 Temperature Pulse Rate 67 65 65 Respiratory Rate 40 H 39 H 40 H Blood Pressure 156/87 H 150/65 H 152/65 H Pulse Oximetry 89 L 100 100 10/31/18 03:00 10/31/18 04:00 10/31/18 04:01 Temperature Pulse Rate 63 65 65 Respiratory Rate 28 H 24 22 Blood Pressure 145/69 H 169/70 H Pulse Oximetry 99 99 98 10/31/18 05:00 10/31/18 05:01 10/31/18 06:00 Temperature Pulse Rate 68 67 79 Respiratory Rate 21 22 44 H Blood Pressure 158/74 H Pulse Oximetry 100 100 10/31/18 06:01 10/31/18 06:07 10/31/18 07:00 Temperature Pulse Rate 79 77 74 Respiratory Rate 40 H 48 H 32 H Blood Pressure 189/84 H 173/66 H Pulse Oximetry 99 10/31/18 07:01 10/31/18 07:10 10/31/18 08:00 Temperature 96.9 F L Pulse Rate 70 69 70 Respiratory Rate 43 H 31 H 32 H Blood Pressure 192/75 H 161/69 H 171/74 H Pulse Oximetry 100 100 100 10/31/18 08:54 10/31/18 09:00 10/31/18 10:00 Temperature Pulse Rate 68 62 Respiratory Rate 17 15 Blood Pressure 168/79 H Pulse Oximetry 100 100 100 10/31/18 10:01 10/31/18 11:00 10/31/18 11:01 Temperature Pulse Rate 64 67 65 Respiratory Rate 14 20 18 Blood Pressure 158/74 H 167/73 H Pulse Oximetry 100 100 100 10/31/18 12:00 10/31/18 12:01 10/31/18 13:00 Temperature 97.0 F L Pulse Rate 67 67 62 Respiratory Rate 23 19 12 Blood Pressure 161/68 H Pulse Oximetry 99 100 98 10/31/18 13:01 10/31/18 13:56 10/31/18 14:00 Temperature Pulse Rate 63 67 92 H Respiratory Rate 12 19 18 Blood Pressure 183/70 H 164/69 H Pulse Oximetry 96 99 100 10/31/18 14:01 Temperature Pulse Rate 71 Respiratory Rate 16 Blood Pressure 228/91 H Pulse Oximetry 100 Intake & Output 10/30/18 10/31/18 10/31/18 18:59 06:59 18:59 Intake Total 880 / 880 1450 / 1450 100 / 100 Output Total 700 / 700 Balance 180 / 180 1450 / 1450 100 / 100 Weight 62.5 kg Intake: IV 1200 / 1200 100 / 100 NS Inj 1,000 ML @ 30 mls/hr IV. 1000 / 1000 CONT .Q24H CYNDIE Rx#:[id number] Azactam Inj 1,000 MG In NS Inj 200 / 200 100 / 100 100 ML @ 200 mls/hr IV.SIG Q8H CYNDIE Rx#:[id number] Oral 480 / 480 250 / 250 Intake (Blood Product) Amt 400 / 400 Rbc As-3 Leukoreduced Unit 400 / 400 [id number] Output: Urine 200 / 200 Hemodialysis Amount 500 / 500 Other: # Incontinent Voids 1 Date of Last Bowel Movement 10/30/18 10/30/18 Weight On Admission 62 kg <Karena Duval - Last Filed: 10/31/18 15:26> Assessment and Plan - Assessment (1) End stage renal disease Code(s): N18.6 - End stage renal disease Status: Chronic Plan: Status post ligation to fistula secondary to profuse bleeding, was hemodynamically unstable. Currently hemodynamically stable. Patient is on dialysis on Tuesday and Tuesday however he is doing very poorly due to metastatic prostate cancer PSA of 196 Alkaline phosphatase very high Metastatic cancer to the bone Poor prognosis -Spoke with palliative care nurse practitioner, she will be meeting with the family today to discuss CODE STATUS and carton wrapper goals. -We will need to meet with family, if dialysis is desired. Very poor prognosis with terminal stage IV prostate cancer -Continue with supportive care (2) Metastatic malignant neoplasm to prostate Code(s): C79.82 - Secondary malignant neoplasm of genital organs Status: Acute Plan: Poor prognosis palliative care consult (3) Anemia Code(s): D64.9 - Anemia, unspecified Status: Acute Qualifiers: Anemia type: due to chronic kidney disease Chronic kidney disease stage: on chronic dialysis Qualified Code(s): N18.6 - End stage renal disease; D63.1 - Anemia in chronic kidney disease; Z99.2 - Dependence on renal dialysis Plan: Received 1 unit of packed red blood cell yesterday hemoglobin 9.6 today from 6.9 <Marta Barraza - Last Filed: 10/31/18 13:47> - Assessment (1) End stage renal disease Code(s): N18.6 - End stage renal disease Status: Chronic (2) Metastatic malignant neoplasm to prostate Code(s): C79.82 - Secondary malignant neoplasm of genital organs Status: Acute (3) Anemia Code(s): D64.9 - Anemia, unspecified Status: Acute Qualifiers: Anemia type: due to chronic kidney disease Chronic kidney disease stage: on chronic dialysis Qualified Code(s): N18.6 - End stage renal disease; D63.1 - Anemia in chronic kidney disease; Z99.2 - Dependence on renal dialysis - Plan Patient is very lethargic, I examined him and spoke to him, he appears to be confused, discussed with palliative care, apparently there is disagreement in the family daughter wants comfort measures but son want to be aggressive, I will request placement of [facility] discussed with ANN Lozano agree with above assessment and plan <Karena Duval - Last Filed: 10/31/18 15:26>
--- NOTE | 2018-10-31 17:00 | P.PNPAL ---
Reason for Visit Reason for visit: a. To assist with evaluation and management of symptoms including: Altered mental status, pain, weight loss b. To assist medical decision maker(s) with: better understanding of current medical conditions; weighing benefits/burdens of medical treatment options; making medical treatment decisions. Subjective Subjective/Interval History: This is a 63-year old male with a past medical history of end-stage renal disease on hemodialysis, stage IV prostate cancer on Casodex, who has had increasing bone and leg pain, brought to [facility] emergency department 10/26 from the skilled nursing where he resides due to altered mental status. EMS reports that the family had noted a slight change in his mental status the prior day which worsened over the next 24 hours. He is reportedly normally alert and oriented. He was neither responding to verbal commands nor following directions. It is noted that he had previously refused 1 day of dialysis in the prior week. He has lost 40 pounds since July 2018. Patient is seen today for medically necessary visit to evaluate symptom management pain, weight loss status and to discuss goals of care with family. Patient was transferred from [place] to [facility] 10/30, emergently, due to rupture of AV fistula with hemorrhage, requiring surgical clipping and transfusion of 1 unit of packed red blood cells. He remains lethargic and confused today. I discussed CODE STATUS with him, as he had changed from a DNR to a full code yesterday with the transfer requiring OR services. He was unable to comprehend the concept of resuscitation and said that he could not make the decision and wanted his children to assist him. His AV fistula at this time is not able to be used for dialysis due to the recent surgery and rupture and he is pending placement of a tunneled catheter until his AV fistula is able to be used again. Discussed with Dr. Duval who saw him for nephrology, who states that the patient remains very confused and he is also not certain that he has the capacity to make decisions. This was also reviewed with Dr. Leal who will perform a more in-depth evaluation to determine capacity. Labs today show WBC 10.0, Hgb 9.6, HCT 28.1, PLT 158, sodium 140, potassium 4.7 , BUN 21, creatinine 2.45, AST 45, ALT 8, alkaline phosphatase 1933. Family/Friend Interactions: I spoke with patient's daughter, Christin, who discussed this with her brother and at this time they wish to support the FULL CODE STATUS, as it is the last one that their father made. I did review with her the fact that her father is too confused to be able to understand the depth of these decisions, to which she agreed. Am attempting to schedule a meeting with both her and her brother on this week to readdress. Advance Directives Health Care Surrogate Name and Number: Christin Ely and Juan Manuel Ross Objective Vital Signs: Vital Signs 10/30/18 17:08 10/30/18 17:18 10/30/18 17:43 Temperature Pulse Rate 90 80 82 Respiratory Rate 20 20 16 Blood Pressure 110/60 130/70 118/71 Pulse Oximetry 99 10/30/18 18:00 10/30/18 18:15 10/30/18 18:30 Temperature Pulse Rate 79 76 72 Respiratory Rate 16 20 20 Blood Pressure 133/73 113/71 110/59 L Pulse Oximetry 94 L 97 100 10/30/18 18:45 10/30/18 18:53 10/30/18 19:03 Temperature 97.2 F L Pulse Rate 79 78 Respiratory Rate 16 20 Blood Pressure 113/70 119/63 127/63 Pulse Oximetry 100 100 10/30/18 23:07 10/31/18 00:00 10/31/18 00:01 Temperature Pulse Rate 65 65 62 Respiratory Rate 15 15 14 Blood Pressure 171/72 H 175/79 H Pulse Oximetry 99 94 L 95 10/31/18 01:00 10/31/18 01:01 10/31/18 02:00 Temperature Pulse Rate 66 67 65 Respiratory Rate 51 H 40 H 39 H Blood Pressure 156/87 H 150/65 H Pulse Oximetry 97 89 L 100 10/31/18 02:01 10/31/18 03:00 10/31/18 04:00 Temperature Pulse Rate 65 63 65 Respiratory Rate 40 H 28 H 24 Blood Pressure 152/65 H 145/69 H Pulse Oximetry 100 99 99 10/31/18 04:01 10/31/18 05:00 10/31/18 05:01 Temperature Pulse Rate 65 68 67 Respiratory Rate 22 21 22 Blood Pressure 169/70 H 158/74 H Pulse Oximetry 98 100 100 10/31/18 06:00 10/31/18 06:01 10/31/18 06:07 Temperature Pulse Rate 79 79 77 Respiratory Rate 44 H 40 H 48 H Blood Pressure 189/84 H 173/66 H Pulse Oximetry 10/31/18 07:00 10/31/18 07:01 10/31/18 07:10 Temperature Pulse Rate 74 70 69 Respiratory Rate 32 H 43 H 31 H Blood Pressure 192/75 H 161/69 H Pulse Oximetry 99 100 100 10/31/18 08:00 10/31/18 08:54 10/31/18 09:00 Temperature 96.9 F L Pulse Rate 70 68 Respiratory Rate 32 H 17 Blood Pressure 171/74 H 168/79 H Pulse Oximetry 100 100 100 10/31/18 10:00 10/31/18 10:01 10/31/18 11:00 Temperature Pulse Rate 62 64 67 Respiratory Rate 15 14 20 Blood Pressure 158/74 H Pulse Oximetry 100 100 100 10/31/18 11:01 10/31/18 12:00 10/31/18 12:01 Temperature 97.0 F L Pulse Rate 65 67 67 Respiratory Rate 18 23 19 Blood Pressure 167/73 H 161/68 H Pulse Oximetry 100 99 100 10/31/18 13:00 10/31/18 13:01 10/31/18 13:56 Temperature Pulse Rate 62 63 67 Respiratory Rate 12 12 19 Blood Pressure 183/70 H 164/69 H Pulse Oximetry 98 96 99 10/31/18 14:00 10/31/18 14:01 10/31/18 14:24 Temperature Pulse Rate 92 H 71 62 Respiratory Rate 18 16 12 Blood Pressure 228/91 H 167/72 H Pulse Oximetry 100 100 100 10/31/18 15:00 10/31/18 15:01 Temperature Pulse Rate 61 61 Respiratory Rate 12 13 Blood Pressure 171/71 H Pulse Oximetry 100 100 Intake & Output 10/30/18 10/31/18 10/31/18 18:59 06:59 18:59 Intake Total 880 / 880 1450 / 1450 100 / 100 Output Total 700 / 700 Balance 180 / 180 1450 / 1450 100 / 100 Weight 137 lb 12.623 oz Intake: IV 1200 / 1200 100 / 100 NS Inj 1,000 ML @ 30 mls/hr IV. 1000 / 1000 CONT .Q24H [facility] Rx#:[id number] Azactam Inj 1,000 MG In NS Inj 200 / 200 100 / 100 100 ML @ 200 mls/hr IV.SIG Q8H [facility] Rx#:[id number] Oral 480 / 480 250 / 250 Intake (Blood Product) Amt 400 / 400 Rbc As-3 Leukoreduced Unit 400 / 400 [id number] Output: Urine 200 / 200 Hemodialysis Amount 500 / 500 Other: # Incontinent Voids 1 Date of Last Bowel Movement 10/30/18 10/30/18 Weight On Admission 136 lb 10.986 oz Physical Exam: CONSTITUTIONAL/GENERAL: This is a cachectic, male lying in bed, lethargic, NAD.. TUBES/LINES/DRAINS: PIV NEREYDA, RW, left arm fistula SKIN: Mild jaundice, no rashes, or lesions. Ecchymoses on upper extremities. Left arm wrapped in surgical David wrap skin temperature appropriate. Not diaphoretic. HEAD: Atraumatic. Normocephalic. Temporal wasting. EYES: Pupils equal and round and reactive. Extraocular motions intact. No scleral icterus. No injection or drainage. Fundi not examined. CARDIOVASCULAR: Regular rate and rhythm without murmurs, gallops, or rubs. No JVD. Peripheral pulses symmetric. RESPIRATORY/CHEST: Symmetric, unlabored respirations. Clear to auscultation. Breath sounds equal bilaterally. No wheezes, rales, or rhonchi. GASTROINTESTINAL: Abdomen soft, non-tender, nondistended. No hepato-splenomegaly , or palpable masses. No guarding. Bowel sounds present. GENITOURINARY: Without palpable bladder distension. Oliguric, with worsening incontinence. MUSCULOSKELETAL: Extremities without clubbing, cyanosis, or edema. No joint tenderness or effusion noted. No calf tenderness. No mottling or clubbing. Significant muscle wasting. NEUROLOGICAL: Lethargic, arousable, oriented to self, not oriented to place, date or purpose, slow to answer requiring repetition, cueing, encouragement. Moves all extremities. PSYCHIATRIC: Flat affect, appears depressed. Diagnostic Tests Laboratory: Laboratory Results - last 72 hr 10/26/18 10/30/18 10/30/18 18:45 08:28 08:28 CBC w Diff Auto diff final WBC 5.9 RBC 2.68 L Hgb 7.9 L Hct 24.4 L MCV 91.0 MCH 29.7 MCHC 32.6 RDW 18.4 H Plt Count 157 MPV 6.6 L Neut % (Auto) 52.8 Lymph % (Auto) 40.7 [place] % (Auto) 4.1 Eos % (Auto) 1.2 Baso % (Auto) 1.2 Neut # (Auto) 3.1 Lymph # (Auto) 2.4 [place] # (Auto) 0.2 Eos # (Auto) 0.1 Baso # (Auto) 0.1 WBC Differential . Differential Comment . Sodium 143 Potassium 4.0 Chloride 110 H Carbon Dioxide 24.2 Anion Gap 9 BUN 28 H Creatinine 3.40 H Estimated GFR 18 L Random Glucose 75 Calcium 7.9 L Total Bilirubin 0.5 AST 14 L ALT Less than 6 L Alkaline Phosphatase 1595 H Total Protein 4.7 L D Albumin 1.9 L Nasal Screen MRSA (PCR) Blood Type Blood Type Recheck Antibody Screen MTS Gel Crossmatch See Detail Bld Prod Order Comment 10/30/18 10/30/18 10/30/18 15:58 16:23 16:33 CBC w Diff WBC RBC Hgb Hct MCV MCH MCHC RDW Plt Count MPV Neut % (Auto) Lymph % (Auto) [place] % (Auto) Eos % (Auto) Baso % (Auto) Neut # (Auto) Lymph # (Auto) [place] # (Auto) Eos # (Auto) Baso # (Auto) WBC Differential Differential Comment Sodium Potassium Chloride Carbon Dioxide Anion Gap BUN Creatinine Estimated GFR Random Glucose Calcium Total Bilirubin AST ALT Alkaline Phosphatase Total Protein Albumin Nasal Screen MRSA (PCR) Blood Type Cancelled O Negative Blood Type Recheck Cancelled Antibody Screen Cancelled Negative MTS Gel Crossmatch See Detail See Detail Bld Prod Order Comment Cancelled 10/30/18 10/30/18 10/31/18 16:42 20:15 10:45 CBC w Diff WBC 10.0 RBC 3.15 L Hgb 9.6 L Hct 28.1 L MCV 89.3 MCH 30.5 MCHC 34.2 RDW 21.7 H D Plt Count 158 MPV 7.2 Neut % (Auto) 57.4 Lymph % (Auto) 38.3 [place] % (Auto) 4.1 Eos % (Auto) 0.0 Baso % (Auto) 0.2 Neut # (Auto) 5.7 Lymph # (Auto) 3.8 [place] # (Auto) 0.4 Eos # (Auto) 0.0 Baso # (Auto) 0.0 WBC Differential . Differential Comment Auto diff final Sodium Potassium Chloride Carbon Dioxide Anion Gap BUN Creatinine Estimated GFR Random Glucose Calcium Total Bilirubin AST ALT Alkaline Phosphatase Total Protein Albumin Nasal Screen MRSA (PCR) Mrsa detected Blood Type Blood Type Recheck Antibody Screen MTS Gel Crossmatch See Detail Bld Prod Order Comment 10/31/18 10:45 CBC w Diff WBC RBC Hgb Hct MCV MCH MCHC RDW Plt Count MPV Neut % (Auto) Lymph % (Auto) [place] % (Auto) Eos % (Auto) Baso % (Auto) Neut # (Auto) Lymph # (Auto) [place] # (Auto) Eos # (Auto) Baso # (Auto) WBC Differential Differential Comment Sodium 140 Potassium 4.7 Chloride 105 Carbon Dioxide 23.3 Anion Gap 12 BUN 21 H Creatinine 2.45 H Estimated GFR 27 L Random Glucose 110 H Calcium 8.6 Total Bilirubin 0.6 AST 45 H ALT 8 L Alkaline Phosphatase 1933 H Total Protein 5.7 L D Albumin 2.4 L Nasal Screen MRSA (PCR) Blood Type Blood Type Recheck Antibody Screen MTS Gel Crossmatch Bld Prod Order Comment Result Diagrams: 10/31/18 10:45 10/31/18 10:45 Microbiology: Microbiology 10/26/18 17:00 Aerobic Blood Culture - Final Blood - Peripheral No growth in 5 days Anaerobic Blood Culture - Final No growth in 5 days 10/26/18 17:00 Aerobic Blood Culture - Final Blood - Peripheral No growth in 5 days Anaerobic Blood Culture - Final No growth in 5 days 10/26/18 17:50 Urine Culture - Final Clean Catch Urine No growth in 48 hours Imaging: ITS Impressions Chest X-Ray 10/26/18 16:35 CONCLUSION: 1. Mild infiltrate in the left lung base. 2. Otherwise, the rest the lung marinelli are grossly clear. Head CT 10/26/18 16:35 CONCLUSION: 1. Unremarkable CT brain for patient's age. . Assessment and Plan Pertinent Non-Medical Issues: Psychosocial: He was born in the [place] area and has lived in this area for nearly 10 years. He is currently residing in a prison facility. He is 2 sons and 1 daughter, all local. 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 Spiritual: Bahai robbi but not affiliated with any particular jewish or clergy. 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 Legal: No living well or DPOA. Patient has named his daughter Lisa and son Frank as co-HCS. Ethical issues impacting care: None noted. . Important Contacts: Daughter: Lisa Ely Frank Ross . Prognosis: His prognosis is poor. He has terminal, stage IV prostate cancer with metastasis to the bone. PSA is 196, alkaline phosphatase over 2000. He is having bone pain and altered mental status of unknown origin. He has end-stage renal disease on hemodialysis with significant unintentional weight loss of over 40 pounds in approximately 3 months. He would be hospice appropriate if goals were consistent. . Code Status: Full Code (Intubation only) Plan: PLAN: Legal decision maker: He does not appear to be capacitated today, as he is oriented only to self. He has signed his daughter, Christin Ely and his son, Frank Ross as joint healthcare surrogate's in the likelihood that he is unable to make his decisions. At this time until his mental status can be clarified, would recommend shared decision making. Goals: Aggressive at this time CODE STATUS: FULL CODE SYMPTOMS: * Altered mental status: Fluctuating with vacillating orientation this morning. He is oriented to self, but not oriented to time, place or purpose. He is unsure of the date and does not know where he is or why he is here. * Pain: Secondary to bone metastasis, invasive lines, bedbound status, muscle wasting. He has Percocet 5/325 mg every 8 hours as needed available and takes 1 -2 tabs daily. * Weight loss: July 2018 he was 170 pounds, per his daughter, today he is 136 pounds. He has significant muscle wasting and debility. He is receiving Marinol for appetite stimulation. Palliative care will continue to follow the patient during hospital course as condition evolves, to assist patient/decision-maker with understanding of their medical conditions, weighing benefits/burdens of treatment options, for clarification of goals of treatment. Additionally will assist with any symptoms of palliative concern. . Attestation Attestation: To help prompt me to consider important information that might be impacting today's encounter and assessment, information from prior notes written by myself or my colleagues may have been "brought forward" into today's note. My signature on this note, however, is an attestation that I personally performed the exam, history, and/or decision-making noted today, and, unless otherwise indicated, the interactions with patient, family, and staff as well as the review of records all occurred today. I also attest that the listed assessment and stated plan reflect my best clinical judgment today based on the combination of historical information, prior notes, and today's exam/ interactions. When time spent is documented, it refers only to time spent today by the signer, or if indicated, combined time spent today by collaborating physician/nurse practitioner. .
[2018-10-31] MEDS ORDERED: hydrALAZINE HCl Inj 20 MG/ML Vial IV.PUSH PRN (17:14)
--- NOTE | 2018-10-31 17:20 | P.PNCC ---
Subjective Subjective Remarks/Hospital Course: 10/30: 63-year-old male with a history of end-stage renal disease on hemodialysis Tuesday and Tuesday, anemia on iron supplementation, hypertension, hepatitis C and metastatic prostate cancer. [facility] because of altered mental status. He was noted to be confused and not responding to questions. In the ED he was found to have pneumonia and UTI and was given cefepime and Zithromax. He has been having productive cough but no shortness of breath. He also has no UTI symptoms, fever and chills. Chest x-ray showed mild infiltrate in the left lung base. EKG demonstrated sinus rhythm, PVC in lead III T inversion in V4 and V5 no significant change from previous. He was admitted to [facility] for further evaluation and management of his altered mental status and infectious workup when he developed a ruptured of his left arm AV fistula while getting hemodialysis. He was emergently taken to the operating room by Dr. Alexandra and underwent ligation of LEFT arm AVF. Postprocedure he has been transferred to [facility] ICU. 10/31: Resting in bed comfortably currently. Not in any acute distress. Objective Vital Signs / I&O: Vital Signs 10/30/18 17:18 10/30/18 17:43 10/30/18 18:00 Temperature Pulse Rate 80 82 79 Respiratory Rate 20 16 16 Blood Pressure 130/70 118/71 133/73 Pulse Oximetry 99 94 L 10/30/18 18:15 10/30/18 18:30 10/30/18 18:45 Temperature Pulse Rate 76 72 79 Respiratory Rate 20 20 16 Blood Pressure 113/71 110/59 L 113/70 Pulse Oximetry 97 100 100 10/30/18 18:53 10/30/18 19:03 10/30/18 23:07 Temperature 97.2 F L Pulse Rate 78 65 Respiratory Rate 20 15 Blood Pressure 119/63 127/63 171/72 H Pulse Oximetry 100 99 10/31/18 00:00 10/31/18 00:01 10/31/18 01:00 Temperature Pulse Rate 65 62 66 Respiratory Rate 15 14 51 H Blood Pressure 175/79 H Pulse Oximetry 94 L 95 97 10/31/18 01:01 10/31/18 02:00 10/31/18 02:01 Temperature Pulse Rate 67 65 65 Respiratory Rate 40 H 39 H 40 H Blood Pressure 156/87 H 150/65 H 152/65 H Pulse Oximetry 89 L 100 100 10/31/18 03:00 10/31/18 04:00 10/31/18 04:01 Temperature Pulse Rate 63 65 65 Respiratory Rate 28 H 24 22 Blood Pressure 145/69 H 169/70 H Pulse Oximetry 99 99 98 10/31/18 05:00 10/31/18 05:01 10/31/18 06:00 Temperature Pulse Rate 68 67 79 Respiratory Rate 21 22 44 H Blood Pressure 158/74 H Pulse Oximetry 100 100 10/31/18 06:01 10/31/18 06:07 10/31/18 07:00 Temperature Pulse Rate 79 77 74 Respiratory Rate 40 H 48 H 32 H Blood Pressure 189/84 H 173/66 H Pulse Oximetry 99 10/31/18 07:01 10/31/18 07:10 10/31/18 08:00 Temperature 96.9 F L Pulse Rate 70 69 70 Respiratory Rate 43 H 31 H 32 H Blood Pressure 192/75 H 161/69 H 171/74 H Pulse Oximetry 100 100 100 10/31/18 08:54 10/31/18 09:00 10/31/18 10:00 Temperature Pulse Rate 68 62 Respiratory Rate 17 15 Blood Pressure 168/79 H Pulse Oximetry 100 100 100 10/31/18 10:01 10/31/18 11:00 10/31/18 11:01 Temperature Pulse Rate 64 67 65 Respiratory Rate 14 20 18 Blood Pressure 158/74 H 167/73 H Pulse Oximetry 100 100 100 10/31/18 12:00 10/31/18 12:01 10/31/18 13:00 Temperature 97.0 F L Pulse Rate 67 67 62 Respiratory Rate 23 19 12 Blood Pressure 161/68 H Pulse Oximetry 99 100 98 10/31/18 13:01 10/31/18 13:56 10/31/18 14:00 Temperature Pulse Rate 63 67 92 H Respiratory Rate 12 19 18 Blood Pressure 183/70 H 164/69 H Pulse Oximetry 96 99 100 10/31/18 14:01 10/31/18 14:24 10/31/18 15:00 Temperature Pulse Rate 71 62 61 Respiratory Rate 16 12 12 Blood Pressure 228/91 H 167/72 H Pulse Oximetry 100 100 100 10/31/18 15:01 Temperature Pulse Rate 61 Respiratory Rate 13 Blood Pressure 171/71 H Pulse Oximetry 100 Intake & Output 10/30/18 10/31/18 10/31/18 18:59 06:59 18:59 Intake Total 880 / 880 1450 / 1450 100 / 100 Output Total 700 / 700 Balance 180 / 180 1450 / 1450 100 / 100 Weight 62.5 kg Intake: IV 1200 / 1200 100 / 100 NS Inj 1,000 ML @ 30 mls/hr IV. 1000 / 1000 CONT .Q24H [facility] Rx#:[id number] Azactam Inj 1,000 MG In NS Inj 200 / 200 100 / 100 100 ML @ 200 mls/hr IV.SIG Q8H [facility] Rx#:[id number] Oral 480 / 480 250 / 250 Intake (Blood Product) Amt 400 / 400 Rbc As-3 Leukoreduced Unit 400 / 400 [id number] Output: Urine 200 / 200 Hemodialysis Amount 500 / 500 Other: # Incontinent Voids 1 Date of Last Bowel Movement 10/30/18 10/30/18 Weight On Admission 62 kg Result Diagrams: 10/31/18 10:45 10/31/18 10:45 Objective Remarks: - Constitutional no acute distress - Routine HEENT Exam Head: Present: normocephalic, atraumatic Eye: Present: EOMI, PERRL, pallor ENT: Present: mucous membranes moist - Routine Neck Exam Present: supple, full ROM. Absent: JVD, carotid bruit - Routine Respiratory Exam Good air entry bilaterally, scattered rhonchi, no wheezing - Routine Cardiovascular Exam Present: RRR, S1, S2 - Routine Abdominal Exam Present: soft, normoactive bowel sounds - Routine Extremities Exam Dressing over left arm AV fistula site in place - Routine Skin Exam Present: intact. Absent: cyanosis, erythema - Routine Neurological Exam Present: Awake, alert, follows commands though slightly confused, moving all extremities Assessment and Plan - Assessment and Plan Plan: Hemorrhagic shock Due to fistula bleeding. Status post autologous and of AVF -Hemostasis achieved -Hemodynamically improved -Monitor H&H and transfuse to keep hemoglobin greater than 8 g% ESRD -Hemodialysis per nephrology Acute encephalopathy -Metabolic toxic -secondary to infection -Ammonia slightly elevated -Continue lactulose Healthcare associated pneumonia -Aztreonam and azithromycin -Follow-up blood cultures -Follow-up urine antigens -De-escalate per sensitivities Urinary tract infection -Broad-spectrum antibiotics as above Anemia -Blood loss anemia -Monitor H&H -Transfuse when indicated -Continue iron supplement Metastatic prostate cancer -Palliative care consultation DVT GI prophylaxis -Teds SCDs -No pharmacological DVT prophylaxis due to hemorrhagic shock -Pepcid Palliative care following to assist with deciding goals of therapy. Discussed with nephrology Dr. Duval. Prognosis is extremely poor with metastatic prostate cancer. Consult and transfer to hospitalist service for further medical management. Critical care will be available as needed.
[2018-10-31] MEDS: Sod Chloride 0.9% Inj 1,000 ML IV.CONT SCH (17:29)
[2018-10-31] MEDS: Azithromycin Inj 500 MG in Sodium Chlor 0.9% Inj 250 ML IV.SIG SCH (18:03)
[2018-11-01] MEDS: Chlorhexidine Gluconate 2% 1 Pack (2 Cloths) TOPICAL SCH (04:33)
[2018-11-01 08:21] LABS: Baso % (Auto) 0.4 % (0.0-2.0); Eos % (Auto) 0.1 % (0.0-4.0); Hematocrit 25.3 % (39.0-51.0); Hemoglobin 8.6 gm/dL (13.0-17.0); Lymph # (Auto) 3.8 th/mm3 (1.0-4.8); Lymph % (Auto) 37.8 % (9.0-44.0); Mean Corpuscular HGB Conc 33.9 % (32.0-36.0); Mean Corpuscular Volume 88.5 fL (80.0-100.0); Mono # (Auto) 0.4 th/mm3 (0.0-0.9); Mono % (Auto) 4.4 % (0.0-8.0); Neut # (Auto) 5.7 th/mm3 (1.8-7.7); Neut % (Auto) 57.3 % (16.0-70.0); Platelet Count 162 th/mm3 (150-450); Red Blood Count 2.86 mil/mm3 (4.50-5.90); White Blood Count 9.9 th/mm3 (4.0-11.0)
[2018-11-01 08:31] LABS: INR 1.8 Ratio; Prothrombin Time 18.7 sec (9.8-11.6)
[2018-11-01] MEDS: Metoprolol Tartrate 25 MG Tablet PO SCH ×2 (09:34→22:47)
[2018-11-01] MEDS: Ferrous Sulfate 325 MG Tablet PO SCH ×3 (09:34→17:24)
[2018-11-01] MEDS: Calcium/Vitamin D 250/125 MG Tablet PO SCH ×2 (09:34→20:32)
[2018-11-01] MEDS: Magnesium Oxide 400 MG Tablet PO SCH (09:34)
[2018-11-01 09:37] LABS: Alanine Aminotransferase 25 U/L (12-78); Albumin 2.3 g/dL (3.4-5.0); Anion Gap 8 meq/L (5-15); Aspartate Aminotransferase 299 U/L (15-37); Blood Urea Nitrogen 28 mg/dL (7-18); Calcium 8.1 mg/dL (8.5-10.1); Carbon Dioxide 25.6 meq/L (21.0-32.0); Chloride 107 meq/L (98-107); Glomerular Filtration Rate 20 mL/min (>89); Glucose,Random 107 mg/dL (74-106); Potassium 4.8 meq/L (3.5-5.1); Sodium 141 meq/L (136-145); Total Protein 5.2 g/dL (6.4-8.2)
--- NOTE | 2018-11-01 09:37 | P.PNIM ---
Subjective Interval history: Patient seen and examined in ICU. Reports generalized pain. No other complaints. Physical Exam Vital signs: Vital Signs 10/31/18 10:00 10/31/18 10:01 10/31/18 11:00 Temperature Pulse Rate 62 64 67 Respiratory Rate 15 14 20 Blood Pressure 158/74 H Pulse Oximetry 100 100 100 10/31/18 11:01 10/31/18 12:00 10/31/18 12:01 Temperature 97.0 F L Pulse Rate 65 67 67 Respiratory Rate 18 23 19 Blood Pressure 167/73 H 161/68 H Pulse Oximetry 100 99 100 10/31/18 13:00 10/31/18 13:01 10/31/18 13:56 Temperature Pulse Rate 62 63 67 Respiratory Rate 12 12 19 Blood Pressure 183/70 H 164/69 H Pulse Oximetry 98 96 99 10/31/18 14:00 10/31/18 14:01 10/31/18 14:24 Temperature Pulse Rate 92 H 71 62 Respiratory Rate 18 16 12 Blood Pressure 228/91 H 167/72 H Pulse Oximetry 100 100 100 10/31/18 15:00 10/31/18 15:01 10/31/18 16:00 Temperature 97.1 F L Pulse Rate 61 61 65 Respiratory Rate 12 13 14 Blood Pressure 171/71 H Pulse Oximetry 100 100 100 10/31/18 16:01 10/31/18 17:00 10/31/18 17:01 Temperature Pulse Rate 63 68 66 Respiratory Rate 12 19 20 Blood Pressure 177/76 H 179/74 H Pulse Oximetry 100 98 100 10/31/18 18:00 10/31/18 18:01 10/31/18 19:00 Temperature Pulse Rate 64 68 66 Respiratory Rate 15 17 16 Blood Pressure 169/72 H Pulse Oximetry 100 100 100 10/31/18 19:01 10/31/18 19:47 10/31/18 20:00 Temperature Pulse Rate 65 67 Respiratory Rate 15 15 Blood Pressure 132/64 Pulse Oximetry 100 100 100 10/31/18 20:01 10/31/18 20:03 10/31/18 21:00 Temperature Pulse Rate 67 67 69 Respiratory Rate 17 17 18 Blood Pressure 189/78 H 187/78 H Pulse Oximetry 100 100 100 10/31/18 21:02 10/31/18 22:00 10/31/18 22:01 Temperature Pulse Rate 68 69 70 Respiratory Rate 17 17 16 Blood Pressure 185/76 H 179/78 H Pulse Oximetry 100 100 100 10/31/18 23:00 10/31/18 23:01 11/01/18 00:00 Temperature Pulse Rate 69 68 67 Respiratory Rate 13 12 17 Blood Pressure 136/72 161/65 H Pulse Oximetry 100 100 97 11/01/18 01:00 11/01/18 01:01 11/01/18 02:00 Temperature Pulse Rate 65 66 67 Respiratory Rate 13 14 16 Blood Pressure 181/70 H Pulse Oximetry 100 99 96 11/01/18 02:05 11/01/18 03:00 11/01/18 03:01 Temperature Pulse Rate 67 69 69 Respiratory Rate 15 15 17 Blood Pressure 163/72 H 177/72 H Pulse Oximetry 99 97 98 11/01/18 04:00 11/01/18 04:01 11/01/18 05:00 Temperature Pulse Rate 70 69 72 Respiratory Rate 17 16 18 Blood Pressure 181/74 H Pulse Oximetry 99 99 98 11/01/18 05:01 11/01/18 06:00 11/01/18 06:01 Temperature Pulse Rate 76 73 75 Respiratory Rate 23 18 19 Blood Pressure 172/70 H 179/70 H Pulse Oximetry 98 99 99 Intake & Output 10/31/18 11/01/18 11/01/18 18:59 06:59 18:59 Intake Total 1200 / 1200 600 / 600 Output Total 100 / 100 Balance 1100 / 1100 600 / 600 Weight 63 kg Intake: IV 1100 / 1100 450 / 450 NS Inj 1,000 ML @ 30 mls/hr IV. 1000 / 1000 CONT .Q24H CYNDIE Rx#:[id number] Azithromycin Inj 500 MG In NS 250 / 250 Inj 250 ML @ 250 mls/hr IV.SIG Q24H CYNDIE Rx#:[id number] Azactam Inj 1,000 MG In NS Inj 100 / 100 200 / 200 100 ML @ 200 mls/hr IV.SIG Q8H CYNDIE Rx#:[id number] Oral 100 / 100 150 / 150 Output: Urine 100 / 100 Other: # Incontinent Voids 1 Date of Last Bowel Movement 10/30/18 10/30/18 # Bowel Movements 0 Narrative: GENERAL: middle aged man laying in bed, not in distress. HEENT:pale,anicteric, geographic tongue. NECK:no JVD CARDIOVASCULAR: Regular rate and rhythm without murmurs, gallops, or rubs. RESPIRATORY: Clear to auscultation. Breath sounds equal bilaterally. No wheezes , rales, or rhonchi. GASTROINTESTINAL: Abdomen soft, non-tender, nondistended. Normal active bowel sounds MUSCULOSKELETAL: edema in both upper and lower extremities. Crepe dressing on Lt arm. NEURO: Alert & Oriented x4 to person, place, time, situation. Moves all ext x4 Results Labs CBC & Chem 7: 11/01/18 20:59 11/01/18 07:29 Labs: Microbiology 10/26/18 17:00 Blood - Peripheral Aerobic Blood Culture - Final No growth in 5 days 10/26/18 17:00 Blood - Peripheral Anaerobic Blood Culture - Final No growth in 5 days 10/26/18 17:00 Blood - Peripheral Aerobic Blood Culture - Final No growth in 5 days 10/26/18 17:00 Blood - Peripheral Anaerobic Blood Culture - Final No growth in 5 days Assessment and Plan Plan 63 yo M with ESRD on HD MWF schedule, Anemia, HTN, HEP C,Metastatic prostatic cancer who was initially at [place] [facility] for altered mentation, found to have pneumonia and UTI, was started on IV abx and admitted there. He suffered rupture of AVF during hemodialysis,with attendant hemorrhagic shock and was emergently taken to OR for AVF ligation, subsequently transferred to [facility] ICU for further management. Hemorrhagic shock Due to AVF rupture, no s/p ligation and hemostasis was achieved. monitor H/h, keep >8. Acute metabolic encephalopathy-likely due to infection, improving Healthcare associated pneumonia -Aztreonam and azithromycin -blood cultures negative to date -Follow-up urine antigens Urinary tract infection -Broad-spectrum antibiotics as above, cultures negative to date. Anemia -Blood loss anemia -H/h stable. -Continue iron supplement Metastatic prostate cancer -Palliative care consultation DVT GI prophylaxis -Teds SCDs -No pharmacological DVT prophylaxis due to hemorrhagic shock -Pepcid Palliative care following to assist with deciding goals of therapy. Progress Note: Quality VTE Deep Vein Thrombosis/Pulmonary Embolism Present on Admission: No
[2018-11-01 10:27] LABS: Alkaline Phosphatase 2917 U/L (45-117)
--- NOTE | 2018-11-01 10:57 | P.PNVS ---
Subjective Post Op Day #: 2 Procedure: LEFT arm access ligation Subjective/Hospital Course: somnolent this morning but daughter reports recent pain meds doesn't endorse arm/hand pain Objective Vital Signs / I&O: Vital Signs 10/31/18 11:00 10/31/18 11:01 10/31/18 12:00 Temperature 97.0 F L Pulse Rate 67 65 67 Respiratory Rate 20 18 23 Blood Pressure 167/73 H Pulse Oximetry 100 100 99 10/31/18 12:01 10/31/18 13:00 10/31/18 13:01 Temperature Pulse Rate 67 62 63 Respiratory Rate 19 12 12 Blood Pressure 161/68 H 183/70 H Pulse Oximetry 100 98 96 10/31/18 13:56 10/31/18 14:00 10/31/18 14:01 Temperature Pulse Rate 67 92 H 71 Respiratory Rate 19 18 16 Blood Pressure 164/69 H 228/91 H Pulse Oximetry 99 100 100 10/31/18 14:24 10/31/18 15:00 10/31/18 15:01 Temperature Pulse Rate 62 61 61 Respiratory Rate 12 12 13 Blood Pressure 167/72 H 171/71 H Pulse Oximetry 100 100 100 10/31/18 16:00 10/31/18 16:01 10/31/18 17:00 Temperature 97.1 F L Pulse Rate 65 63 68 Respiratory Rate 14 12 19 Blood Pressure 177/76 H Pulse Oximetry 100 100 98 10/31/18 17:01 10/31/18 18:00 10/31/18 18:01 Temperature Pulse Rate 66 64 68 Respiratory Rate 20 15 17 Blood Pressure 179/74 H 169/72 H Pulse Oximetry 100 100 100 10/31/18 19:00 10/31/18 19:01 10/31/18 19:47 Temperature Pulse Rate 66 65 Respiratory Rate 16 15 Blood Pressure 132/64 Pulse Oximetry 100 100 100 10/31/18 20:00 10/31/18 20:01 10/31/18 20:03 Temperature Pulse Rate 67 67 67 Respiratory Rate 15 17 17 Blood Pressure 189/78 H 187/78 H Pulse Oximetry 100 100 100 10/31/18 21:00 10/31/18 21:02 10/31/18 22:00 Temperature Pulse Rate 69 68 69 Respiratory Rate 18 17 17 Blood Pressure 185/76 H Pulse Oximetry 100 100 100 10/31/18 22:01 10/31/18 23:00 10/31/18 23:01 Temperature Pulse Rate 70 69 68 Respiratory Rate 16 13 12 Blood Pressure 179/78 H 136/72 Pulse Oximetry 100 100 100 11/01/18 00:00 11/01/18 01:00 11/01/18 01:01 Temperature Pulse Rate 67 65 66 Respiratory Rate 17 13 14 Blood Pressure 161/65 H 181/70 H Pulse Oximetry 97 100 99 11/01/18 02:00 11/01/18 02:05 11/01/18 03:00 Temperature Pulse Rate 67 67 69 Respiratory Rate 16 15 15 Blood Pressure 163/72 H Pulse Oximetry 96 99 97 11/01/18 03:01 11/01/18 04:00 11/01/18 04:01 Temperature Pulse Rate 69 70 69 Respiratory Rate 17 17 16 Blood Pressure 177/72 H 181/74 H Pulse Oximetry 98 99 99 11/01/18 05:00 11/01/18 05:01 11/01/18 06:00 Temperature Pulse Rate 72 76 73 Respiratory Rate 18 23 18 Blood Pressure 172/70 H Pulse Oximetry 98 98 99 11/01/18 06:01 11/01/18 08:00 11/01/18 09:00 Temperature 98.1 F Pulse Rate 75 79 75 Respiratory Rate 19 15 15 Blood Pressure 179/70 H 178/79 H Pulse Oximetry 99 97 11/01/18 09:01 11/01/18 10:00 11/01/18 10:01 Temperature Pulse Rate 76 73 73 Respiratory Rate 16 16 18 Blood Pressure 172/72 H 180/70 H Pulse Oximetry 66 L 62 L Intake & Output 10/31/18 11/01/18 11/01/18 18:59 06:59 18:59 Intake Total 1200 / 1200 600 / 600 Output Total 100 / 100 Balance 1100 / 1100 600 / 600 Weight 63 kg Intake: IV 1100 / 1100 450 / 450 NS Inj 1,000 ML @ 30 mls/hr IV. 1000 / 1000 CONT .Q24H CYNDIE Rx#:[id number] Azithromycin Inj 500 MG In NS 250 / 250 Inj 250 ML @ 250 mls/hr IV.SIG Q24H CYNDIE Rx#:[id number] Azactam Inj 1,000 MG In NS Inj 100 / 100 200 / 200 100 ML @ 200 mls/hr IV.SIG Q8H CYNDIE Rx#:[id number] Oral 100 / 100 150 / 150 Output: Urine 100 / 100 Other: # Incontinent Voids 1 Date of Last Bowel Movement 10/30/18 10/30/18 10/30/18 # Bowel Movements 0 Exam: LEFT arm wrapped palpable radial pulse Laboratory Results - last 24 hr 10/31/18 10/31/18 11/01/18 10:45 10:45 07:29 WBC 10.0 RBC 3.15 L Hgb 9.6 L Hct 28.1 L MCV 89.3 MCH 30.5 MCHC 34.2 RDW 21.7 H D Plt Count 158 MPV 7.2 Neut % (Auto) 57.4 Lymph % (Auto) 38.3 [place] % (Auto) 4.1 Eos % (Auto) 0.0 Baso % (Auto) 0.2 Neut # (Auto) 5.7 Lymph # (Auto) 3.8 [place] # (Auto) 0.4 Eos # (Auto) 0.0 Baso # (Auto) 0.0 WBC Differential . Differential Comment Auto diff final PT 18.7 H INR 1.8 Sodium 140 Potassium 4.7 Chloride 105 Carbon Dioxide 23.3 Anion Gap 12 BUN 21 H Creatinine 2.45 H Estimated GFR 27 L Random Glucose 110 H Calcium 8.6 Total Bilirubin 0.6 AST 45 H ALT 8 L Alkaline Phosphatase 1933 H Total Protein 5.7 L D Albumin 2.4 L 11/01/18 11/01/18 07:29 07:29 WBC 9.9 RBC 2.86 L Hgb 8.6 L Hct 25.3 L MCV 88.5 MCH 30.0 MCHC 33.9 RDW 21.0 H Plt Count 162 MPV 7.0 Neut % (Auto) 57.3 Lymph % (Auto) 37.8 [place] % (Auto) 4.4 Eos % (Auto) 0.1 Baso % (Auto) 0.4 Neut # (Auto) 5.7 Lymph # (Auto) 3.8 [place] # (Auto) 0.4 Eos # (Auto) 0.0 Baso # (Auto) 0.0 WBC Differential . Differential Comment Auto diff final PT INR Sodium 141 Potassium 4.8 Chloride 107 Carbon Dioxide 25.6 Anion Gap 8 BUN 28 H Creatinine 3.17 H Estimated GFR 20 L Random Glucose 107 H Calcium 8.1 L Total Bilirubin 0.5 AST 299 H ALT 25 Alkaline Phosphatase 2917 H Total Protein 5.2 L Albumin 2.3 L Microbiology 10/26/18 17:00 Aerobic Blood Culture - Final Blood - Peripheral No growth in 5 days Anaerobic Blood Culture - Final No growth in 5 days 10/26/18 17:00 Aerobic Blood Culture - Final Blood - Peripheral No growth in 5 days Anaerobic Blood Culture - Final No growth in 5 days Assessment and Plan - Plan POD#2 s/p emergent LEFT arm access ligation 1. will need tunneled catheter for HD 2. Given palliative care for metastatic prostate CA, I would favor tunneled catheter moving forward in lieu of new surgical access 3. Dressing changes to arm including ointment to skin tears Discharge Planning: anytime from a vascular surgery standpoint; will arrange f/u in 3 weeks for suture removal
--- NOTE | 2018-11-01 12:07 | P.PNNP ---
Subjective Interval history: Patient dozing off, just received pain medication. Daughter and daughter-in- law at bedside. Patient very lethargic, confused. <Marta Barraza - Last Filed: 11/01/18 11:56> Physical Exam Vital signs: Vital Signs 10/31/18 12:00 10/31/18 12:01 10/31/18 13:00 Temperature 97.0 F L Pulse Rate 67 67 62 Respiratory Rate 23 19 12 Blood Pressure 161/68 H Pulse Oximetry 99 100 98 10/31/18 13:01 10/31/18 13:56 10/31/18 14:00 Temperature Pulse Rate 63 67 92 H Respiratory Rate 12 19 18 Blood Pressure 183/70 H 164/69 H Pulse Oximetry 96 99 100 10/31/18 14:01 10/31/18 14:24 10/31/18 15:00 Temperature Pulse Rate 71 62 61 Respiratory Rate 16 12 12 Blood Pressure 228/91 H 167/72 H Pulse Oximetry 100 100 100 10/31/18 15:01 10/31/18 16:00 10/31/18 16:01 Temperature 97.1 F L Pulse Rate 61 65 63 Respiratory Rate 13 14 12 Blood Pressure 171/71 H 177/76 H Pulse Oximetry 100 100 100 10/31/18 17:00 10/31/18 17:01 10/31/18 18:00 Temperature Pulse Rate 68 66 64 Respiratory Rate 19 20 15 Blood Pressure 179/74 H Pulse Oximetry 98 100 100 10/31/18 18:01 10/31/18 19:00 10/31/18 19:01 Temperature Pulse Rate 68 66 65 Respiratory Rate 17 16 15 Blood Pressure 169/72 H 132/64 Pulse Oximetry 100 100 100 10/31/18 19:47 10/31/18 20:00 10/31/18 20:01 Temperature Pulse Rate 67 67 Respiratory Rate 15 17 Blood Pressure 189/78 H Pulse Oximetry 100 100 100 10/31/18 20:03 10/31/18 21:00 10/31/18 21:02 Temperature Pulse Rate 67 69 68 Respiratory Rate 17 18 17 Blood Pressure 187/78 H 185/76 H Pulse Oximetry 100 100 100 10/31/18 22:00 10/31/18 22:01 10/31/18 23:00 Temperature Pulse Rate 69 70 69 Respiratory Rate 17 16 13 Blood Pressure 179/78 H Pulse Oximetry 100 100 100 10/31/18 23:01 11/01/18 00:00 11/01/18 01:00 Temperature Pulse Rate 68 67 65 Respiratory Rate 12 17 13 Blood Pressure 136/72 161/65 H Pulse Oximetry 100 97 100 11/01/18 01:01 11/01/18 02:00 11/01/18 02:05 Temperature Pulse Rate 66 67 67 Respiratory Rate 14 16 15 Blood Pressure 181/70 H 163/72 H Pulse Oximetry 99 96 99 11/01/18 03:00 11/01/18 03:01 11/01/18 04:00 Temperature Pulse Rate 69 69 70 Respiratory Rate 15 17 17 Blood Pressure 177/72 H Pulse Oximetry 97 98 99 11/01/18 04:01 11/01/18 05:00 11/01/18 05:01 Temperature Pulse Rate 69 72 76 Respiratory Rate 16 18 23 Blood Pressure 181/74 H 172/70 H Pulse Oximetry 99 98 98 11/01/18 06:00 11/01/18 06:01 11/01/18 08:00 Temperature 98.1 F Pulse Rate 73 75 79 Respiratory Rate 18 19 15 Blood Pressure 179/70 H 178/79 H Pulse Oximetry 99 99 97 11/01/18 09:00 11/01/18 09:01 11/01/18 10:00 Temperature Pulse Rate 75 76 73 Respiratory Rate 15 16 16 Blood Pressure 172/72 H Pulse Oximetry 66 L 11/01/18 10:01 11/01/18 11:00 11/01/18 11:01 Temperature Pulse Rate 73 68 67 Respiratory Rate 18 15 14 Blood Pressure 180/70 H 177/72 H Pulse Oximetry 62 L Intake & Output 10/31/18 11/01/18 11/01/18 18:59 06:59 18:59 Intake Total 1200 / 1200 600 / 600 Output Total 100 / 100 Balance 1100 / 1100 600 / 600 Weight 63 kg Intake: IV 1100 / 1100 450 / 450 NS Inj 1,000 ML @ 30 mls/hr IV. 1000 / 1000 CONT .Q24H CYNDIE Rx#:[id number] Azithromycin Inj 500 MG In NS 250 / 250 Inj 250 ML @ 250 mls/hr IV.SIG Q24H CYNDIE Rx#:[id number] Azactam Inj 1,000 MG In NS Inj 100 / 100 200 / 200 100 ML @ 200 mls/hr IV.SIG Q8H CYNDIE Rx#:[id number] Oral 100 / 100 150 / 150 Output: Urine 100 / 100 Other: # Incontinent Voids 1 Date of Last Bowel Movement 10/30/18 10/30/18 10/30/18 # Bowel Movements 0 Narrative: GENERAL: mal-nourished, looks very ill, lethargic SKIN: Cold and dry. HEAD: Normocephalic. EYES: No scleral icterus. No injection or drainage. NECK: Supple, trachea midline. No JVD or lymphadenopathy. CARDIOVASCULAR: Regular rate and rhythm without murmurs, gallops, or rubs. RESPIRATORY: Breath sounds equal bilaterally. No accessory muscle use. Breath sounds diminished throughout GASTROINTESTINAL: Abdomen soft, non-tender, nondistended. EXTREMITIES: Loss of muscle mass, weak, AV fistula ligated and heavily bandaged , left hand swollen. NEUROLOGICAL: Lethargic, confused <Marta Barraza - Last Filed: 11/01/18 11:56> Vital signs: Vital Signs 10/31/18 16:00 10/31/18 16:01 10/31/18 17:00 Temperature 97.1 F L Pulse Rate 65 63 68 Respiratory Rate 14 12 19 Blood Pressure 177/76 H Pulse Oximetry 100 100 98 10/31/18 17:01 10/31/18 18:00 10/31/18 18:01 Temperature Pulse Rate 66 64 68 Respiratory Rate 20 15 17 Blood Pressure 179/74 H 169/72 H Pulse Oximetry 100 100 100 10/31/18 19:00 10/31/18 19:01 10/31/18 19:47 Temperature Pulse Rate 66 65 Respiratory Rate 16 15 Blood Pressure 132/64 Pulse Oximetry 100 100 100 10/31/18 20:00 10/31/18 20:01 10/31/18 20:03 Temperature Pulse Rate 67 67 67 Respiratory Rate 15 17 17 Blood Pressure 189/78 H 187/78 H Pulse Oximetry 100 100 100 10/31/18 21:00 10/31/18 21:02 10/31/18 22:00 Temperature Pulse Rate 69 68 69 Respiratory Rate 18 17 17 Blood Pressure 185/76 H Pulse Oximetry 100 100 100 10/31/18 22:01 10/31/18 23:00 10/31/18 23:01 Temperature Pulse Rate 70 69 68 Respiratory Rate 16 13 12 Blood Pressure 179/78 H 136/72 Pulse Oximetry 100 100 100 11/01/18 00:00 11/01/18 01:00 11/01/18 01:01 Temperature Pulse Rate 67 65 66 Respiratory Rate 17 13 14 Blood Pressure 161/65 H 181/70 H Pulse Oximetry 97 100 99 11/01/18 02:00 11/01/18 02:05 11/01/18 03:00 Temperature Pulse Rate 67 67 69 Respiratory Rate 16 15 15 Blood Pressure 163/72 H Pulse Oximetry 96 99 97 11/01/18 03:01 11/01/18 04:00 11/01/18 04:01 Temperature Pulse Rate 69 70 69 Respiratory Rate 17 17 16 Blood Pressure 177/72 H 181/74 H Pulse Oximetry 98 99 99 11/01/18 05:00 11/01/18 05:01 11/01/18 06:00 Temperature Pulse Rate 72 76 73 Respiratory Rate 18 23 18 Blood Pressure 172/70 H Pulse Oximetry 98 98 99 11/01/18 06:01 11/01/18 08:00 11/01/18 09:00 Temperature 98.1 F Pulse Rate 75 79 75 Respiratory Rate 19 15 15 Blood Pressure 179/70 H 178/79 H Pulse Oximetry 99 97 11/01/18 09:01 11/01/18 10:00 11/01/18 10:01 Temperature Pulse Rate 76 73 73 Respiratory Rate 16 16 18 Blood Pressure 172/72 H 180/70 H Pulse Oximetry 66 L 62 L 11/01/18 11:00 11/01/18 11:01 11/01/18 12:00 Temperature 98.0 F Pulse Rate 68 67 74 Respiratory Rate 15 14 18 Blood Pressure 177/72 H 160/69 H Pulse Oximetry 11/01/18 12:53 11/01/18 12:59 11/01/18 13:35 Temperature Pulse Rate 75 Respiratory Rate Blood Pressure 167/83 H Pulse Oximetry 94 L 95 11/01/18 13:51 11/01/18 13:55 11/01/18 14:00 Temperature Pulse Rate 80 76 75 Respiratory Rate 15 15 61 H Blood Pressure 199/79 H Pulse Oximetry 100 100 11/01/18 14:15 11/01/18 14:30 11/01/18 14:45 Temperature Pulse Rate 71 71 69 Respiratory Rate 14 14 14 Blood Pressure Pulse Oximetry 100 100 99 11/01/18 14:53 11/01/18 15:00 11/01/18 15:15 Temperature Pulse Rate 70 69 72 Respiratory Rate 14 14 15 Blood Pressure 125/61 Pulse Oximetry 100 99 96 11/01/18 15:30 Temperature Pulse Rate 70 Respiratory Rate 14 Blood Pressure Pulse Oximetry 100 Intake & Output 10/31/18 11/01/18 11/01/18 18:59 06:59 18:59 Intake Total 1200 / 1200 600 / 600 100 / 100 Output Total 100 / 100 Balance 1100 / 1100 600 / 600 100 / 100 Weight 63 kg Intake: IV 1100 / 1100 450 / 450 100 / 100 NS Inj 1,000 ML @ 30 mls/hr IV. 1000 / 1000 CONT .Q24H CYNDIE Rx#:[id number] Azithromycin Inj 500 MG In NS 250 / 250 Inj 250 ML @ 250 mls/hr IV.SIG Q24H CYNDIE Rx#:[id number] Azactam Inj 1,000 MG In NS Inj 100 / 100 200 / 200 100 / 100 100 ML @ 200 mls/hr IV.SIG Q8H CYNDIE Rx#:[id number] Oral 100 / 100 150 / 150 Output: Urine 100 / 100 Other: # Incontinent Voids 1 Date of Last Bowel Movement 10/30/18 10/30/18 10/30/18 # Bowel Movements 0 <Karena Duval - Last Filed: 11/01/18 16:00> Assessment and Plan - Assessment (1) End stage renal disease Code(s): N18.6 - End stage renal disease Status: Chronic Plan: Status post ligation to fistula on 10/30/2018, secondary to profuse bleeding, was hemodynamically unstable. Currently hemodynamically stable. Patient is on dialysis on Tuesday and Tuesday however he is doing very poorly due to metastatic prostate cancer PSA of 196 Alkaline phosphatase very high Metastatic cancer to the bone Poor prognosis According to palliative note, patient's daughter and son has decided to keep current full CODE STATUS. At this time, the patient is to confused to make an informed decision. Palliative care is meeting with patient's son and daughter to readdress status on . -Plans for a permacath placement today -Plans for dialysis today, notified dialysis nurse -Continue supportive care at this time (2) Metastatic malignant neoplasm to prostate Code(s): C79.82 - Secondary malignant neoplasm of genital organs Status: Acute Plan: Poor prognosis - palliative care on the case (3) Anemia Code(s): D64.9 - Anemia, unspecified Status: Acute Plan: Current hemoglobin 8.6 -Continue to monitor <Marta Barraza - Last Filed: 11/01/18 11:56> - Assessment (1) End stage renal disease Code(s): N18.6 - End stage renal disease Status: Chronic (2) Metastatic malignant neoplasm to prostate Code(s): C79.82 - Secondary malignant neoplasm of genital organs Status: Acute (3) Anemia Code(s): D64.9 - Anemia, unspecified Status: Acute Qualifiers: Anemia type: due to chronic kidney disease Chronic kidney disease stage: on chronic dialysis Qualified Code(s): N18.6 - End stage renal disease; D63.1 - Anemia in chronic kidney disease; Z99.2 - Dependence on renal dialysis - Attending Attestation Patient is doing poorly care discussed with ANN Vance in place Hemodialysis planned Tuesday and Tuesday Continue supportive care overall prognosis remains poor I agree with above assessment and plan <Karena Duval - Last Filed: 11/01/18 16:00>
--- NOTE | 2018-11-01 12:14 | P.PNPAL ---
Reason for Visit Reason for visit: a. To assist with evaluation and management of symptoms including: Altered mental status, pain, weight loss b. To assist medical decision maker(s) with: better understanding of current medical conditions; weighing benefits/burdens of medical treatment options; making medical treatment decisions. Subjective Subjective/Interval History: This is a 63-year old male with a past medical history of end-stage renal disease on hemodialysis, stage IV prostate cancer on Casodex, who has had increasing bone and leg pain, brought to [facility]. emergency department 10/26 from the half-way where he resides due to altered mental status. EMS reports that the family had noted a slight change in his mental status the prior day which worsened over the next 24 hours. He is reportedly normally alert and oriented. He was neither responding to verbal commands nor following directions. It is noted that he had previously refused 1 day of dialysis in the prior week. He has lost 40 pounds since July 2018. Patient is seen today for medically necessary visit to evaluate symptom management pain, weight loss status and to discuss goals of care with family. Patient is sitting up in bed today, lethargic with daughter and [id number] at bedside. He dozes off frequently during conversation. His last dose of pain medication was at 19: 25 last night. He is very weak, undergoing physical therapy. He was able to sit on the edge of the bed with the therapist for 7 minutes without assistance but required assistance to return back to supine. He was seen by vascular surgery during my visit who stated that the incision was healing well but the sutures would need to remain in for approximately 3 weeks. He noted that the dialysis fistula was completely destroyed with the hemorrhagic rupture but given the patient's poor prognosis shortened lifespan, would continue using a tunneled catheter which is planned to be implanted later today for further dialysis. He opined that since a new fistula would take several months to mature, he felt that that would exceed the patient's life expectancy. Lab studies today show WBC 9.9, Hgb 8.6, HCT 25.3, PLT 162, PT 18.7, INR 1.8, sodium 141, potassium 4.8, BUN 28, creatinine 3.17, AST 299, ALT 25, alkaline phosphatase 2917. . Family/Friend Interactions: Discussed prognosis and concerns with daughter and [id number]. At this time they continue to hold out hope that his altered mental status is a result of not completing dialysis, which had been the case in the past and hope that completing a full dialysis cycle will enable him to regain clarity. Planning to schedule a meeting for after his dialysis to attempt to again discuss goals of care with family and patient. At this time the daughter states that while she is aware that he is confused and unable to make his decisions she and her brother are reluctant to reverse the full code decision which occurred as a result of the acute hemorrhage of the fistula. They are aware that given his weakness he may have difficulty transitioning to and from outpatient dialysis as he had in the past because he was previously using [facility] for transport. We discussed the higher cost of requiring medical transport to and from dialysis and advised that this was not a cost that the [facility] facilities usually bore. We discussed the end-stage nature of his 2 terminal diagnosis is ESRD/HD and stage IV metastatic prostate cancer. The family denies any previous conversations with the patient regarding his preference regarding which diagnosis he would choose as his terminal diagnosis. He does have the option of stopping dialysis end-stage renal disease or continuing dialysis and having from the metastatic prostate cancer. Family continues to discuss these options and plan is for meeting on with both brother and sister who at this time would be the proxy decision makers as patient is not capacitated for decision-making. . Advance Directives Health Care Surrogate Name and Number: Christin Ely and Juan Manuel Ross Objective Vital Signs: Vital Signs 10/31/18 12:00 10/31/18 12:01 10/31/18 13:00 Temperature 97.0 F L Pulse Rate 67 67 62 Respiratory Rate 23 19 12 Blood Pressure 161/68 H Pulse Oximetry 99 100 98 10/31/18 13:01 10/31/18 13:56 10/31/18 14:00 Temperature Pulse Rate 63 67 92 H Respiratory Rate 12 19 18 Blood Pressure 183/70 H 164/69 H Pulse Oximetry 96 99 100 10/31/18 14:01 10/31/18 14:24 10/31/18 15:00 Temperature Pulse Rate 71 62 61 Respiratory Rate 16 12 12 Blood Pressure 228/91 H 167/72 H Pulse Oximetry 100 100 100 10/31/18 15:01 10/31/18 16:00 10/31/18 16:01 Temperature 97.1 F L Pulse Rate 61 65 63 Respiratory Rate 13 14 12 Blood Pressure 171/71 H 177/76 H Pulse Oximetry 100 100 100 10/31/18 17:00 10/31/18 17:01 10/31/18 18:00 Temperature Pulse Rate 68 66 64 Respiratory Rate 19 20 15 Blood Pressure 179/74 H Pulse Oximetry 98 100 100 10/31/18 18:01 10/31/18 19:00 10/31/18 19:01 Temperature Pulse Rate 68 66 65 Respiratory Rate 17 16 15 Blood Pressure 169/72 H 132/64 Pulse Oximetry 100 100 100 10/31/18 19:47 10/31/18 20:00 10/31/18 20:01 Temperature Pulse Rate 67 67 Respiratory Rate 15 17 Blood Pressure 189/78 H Pulse Oximetry 100 100 100 10/31/18 20:03 10/31/18 21:00 10/31/18 21:02 Temperature Pulse Rate 67 69 68 Respiratory Rate 17 18 17 Blood Pressure 187/78 H 185/76 H Pulse Oximetry 100 100 100 10/31/18 22:00 10/31/18 22:01 10/31/18 23:00 Temperature Pulse Rate 69 70 69 Respiratory Rate 17 16 13 Blood Pressure 179/78 H Pulse Oximetry 100 100 100 10/31/18 23:01 11/01/18 00:00 11/01/18 01:00 Temperature Pulse Rate 68 67 65 Respiratory Rate 12 17 13 Blood Pressure 136/72 161/65 H Pulse Oximetry 100 97 100 11/01/18 01:01 11/01/18 02:00 11/01/18 02:05 Temperature Pulse Rate 66 67 67 Respiratory Rate 14 16 15 Blood Pressure 181/70 H 163/72 H Pulse Oximetry 99 96 99 11/01/18 03:00 11/01/18 03:01 11/01/18 04:00 Temperature Pulse Rate 69 69 70 Respiratory Rate 15 17 17 Blood Pressure 177/72 H Pulse Oximetry 97 98 99 11/01/18 04:01 11/01/18 05:00 11/01/18 05:01 Temperature Pulse Rate 69 72 76 Respiratory Rate 16 18 23 Blood Pressure 181/74 H 172/70 H Pulse Oximetry 99 98 98 11/01/18 06:00 11/01/18 06:01 11/01/18 08:00 Temperature 98.1 F Pulse Rate 73 75 79 Respiratory Rate 18 19 15 Blood Pressure 179/70 H 178/79 H Pulse Oximetry 99 99 97 11/01/18 09:00 11/01/18 09:01 11/01/18 10:00 Temperature Pulse Rate 75 76 73 Respiratory Rate 15 16 16 Blood Pressure 172/72 H Pulse Oximetry 66 L 11/01/18 10:01 11/01/18 11:00 11/01/18 11:01 Temperature Pulse Rate 73 68 67 Respiratory Rate 18 15 14 Blood Pressure 180/70 H 177/72 H Pulse Oximetry 62 L Intake & Output 10/31/18 11/01/18 11/01/18 18:59 06:59 18:59 Intake Total 1200 / 1200 600 / 600 Output Total 100 / 100 Balance 1100 / 1100 600 / 600 Weight 138 lb 14.259 oz Intake: IV 1100 / 1100 450 / 450 NS Inj 1,000 ML @ 30 mls/hr IV. 1000 / 1000 CONT .Q24H CYNDIE Rx#:[id number] Azithromycin Inj 500 MG In NS 250 / 250 Inj 250 ML @ 250 mls/hr IV.SIG Q24H CYNDIE Rx#:[id number] Azactam Inj 1,000 MG In NS Inj 100 / 100 200 / 200 100 ML @ 200 mls/hr IV.SIG Q8H CYNDIE Rx#:[id number] Oral 100 / 100 150 / 150 Output: Urine 100 / 100 Other: # Incontinent Voids 1 Date of Last Bowel Movement 10/30/18 10/30/18 10/30/18 # Bowel Movements 0 Physical Exam: CONSTITUTIONAL/GENERAL: This is a cachectic, male lying in bed, lethargic, NAD.. TUBES/LINES/DRAINS: PIV NEREYDA, RW, left arm fistula SKIN: Mild jaundice, no rashes, or lesions. Ecchymoses on upper extremities. Left arm wrapped in surgical David wrap skin temperature appropriate. Not diaphoretic. HEAD: Atraumatic. Normocephalic. Temporal wasting. EYES: Pupils equal and round and reactive. Extraocular motions intact. No scleral icterus. No injection or drainage. Fundi not examined. CARDIOVASCULAR: Regular rate and rhythm without murmurs, gallops, or rubs. No JVD. Peripheral pulses symmetric. RESPIRATORY/CHEST: Symmetric, unlabored respirations. Clear to auscultation. Breath sounds equal bilaterally. No wheezes, rales, or rhonchi. GASTROINTESTINAL: Abdomen soft, non-tender, nondistended. No hepato-splenomegaly , or palpable masses. No guarding. Bowel sounds present. GENITOURINARY: Without palpable bladder distension. Oliguric, with worsening incontinence. MUSCULOSKELETAL: Extremities without clubbing, cyanosis, or edema. No joint tenderness or effusion noted. No calf tenderness. No mottling or clubbing. Significant muscle wasting. NEUROLOGICAL: Lethargic, arousable, oriented to self, not oriented to place, date or purpose, slow to answer requiring repetition, cueing, encouragement. Moves all extremities. PSYCHIATRIC: Flat affect, appears depressed, lethargic. . Diagnostic Tests Laboratory: Laboratory Results - last 72 hr 10/26/18 10/30/18 10/30/18 18:45 08:28 08:28 CBC w Diff Auto diff final WBC 5.9 RBC 2.68 L Hgb 7.9 L Hct 24.4 L MCV 91.0 MCH 29.7 MCHC 32.6 RDW 18.4 H Plt Count 157 MPV 6.6 L Neut % (Auto) 52.8 Lymph % (Auto) 40.7 [place] % (Auto) 4.1 Eos % (Auto) 1.2 Baso % (Auto) 1.2 Neut # (Auto) 3.1 Lymph # (Auto) 2.4 [place] # (Auto) 0.2 Eos # (Auto) 0.1 Baso # (Auto) 0.1 WBC Differential . Differential Comment . PT INR Sodium 143 Potassium 4.0 Chloride 110 H Carbon Dioxide 24.2 Anion Gap 9 BUN 28 H Creatinine 3.40 H Estimated GFR 18 L Random Glucose 75 Calcium 7.9 L Total Bilirubin 0.5 AST 14 L ALT Less than 6 L Alkaline Phosphatase 1595 H Total Protein 4.7 L D Albumin 1.9 L Nasal Screen MRSA (PCR) Blood Type Blood Type Recheck Antibody Screen MTS Gel Crossmatch See Detail Bld Prod Order Comment 10/30/18 10/30/18 10/30/18 15:58 16:23 16:33 CBC w Diff WBC RBC Hgb Hct MCV MCH MCHC RDW Plt Count MPV Neut % (Auto) Lymph % (Auto) [place] % (Auto) Eos % (Auto) Baso % (Auto) Neut # (Auto) Lymph # (Auto) [place] # (Auto) Eos # (Auto) Baso # (Auto) WBC Differential Differential Comment PT INR Sodium Potassium Chloride Carbon Dioxide Anion Gap BUN Creatinine Estimated GFR Random Glucose Calcium Total Bilirubin AST ALT Alkaline Phosphatase Total Protein Albumin Nasal Screen MRSA (PCR) Blood Type Cancelled O Negative Blood Type Recheck Cancelled Antibody Screen Cancelled Negative MTS Gel Crossmatch See Detail See Detail Bld Prod Order Comment Cancelled 10/30/18 10/30/18 10/31/18 16:42 20:15 10:45 CBC w Diff WBC 10.0 RBC 3.15 L Hgb 9.6 L Hct 28.1 L MCV 89.3 MCH 30.5 MCHC 34.2 RDW 21.7 H D Plt Count 158 MPV 7.2 Neut % (Auto) 57.4 Lymph % (Auto) 38.3 [place] % (Auto) 4.1 Eos % (Auto) 0.0 Baso % (Auto) 0.2 Neut # (Auto) 5.7 Lymph # (Auto) 3.8 [place] # (Auto) 0.4 Eos # (Auto) 0.0 Baso # (Auto) 0.0 WBC Differential . Differential Comment Auto diff final PT INR Sodium Potassium Chloride Carbon Dioxide Anion Gap BUN Creatinine Estimated GFR Random Glucose Calcium Total Bilirubin AST ALT Alkaline Phosphatase Total Protein Albumin Nasal Screen MRSA (PCR) Mrsa detected Blood Type Blood Type Recheck Antibody Screen MTS Gel Crossmatch See Detail Bld Prod Order Comment 10/31/18 11/01/18 11/01/18 10:45 07:29 07:29 CBC w Diff WBC 9.9 RBC 2.86 L Hgb 8.6 L Hct 25.3 L MCV 88.5 MCH 30.0 MCHC 33.9 RDW 21.0 H Plt Count 162 MPV 7.0 Neut % (Auto) 57.3 Lymph % (Auto) 37.8 [place] % (Auto) 4.4 Eos % (Auto) 0.1 Baso % (Auto) 0.4 Neut # (Auto) 5.7 Lymph # (Auto) 3.8 [place] # (Auto) 0.4 Eos # (Auto) 0.0 Baso # (Auto) 0.0 WBC Differential . Differential Comment Auto diff final PT 18.7 H INR 1.8 Sodium 140 Potassium 4.7 Chloride 105 Carbon Dioxide 23.3 Anion Gap 12 BUN 21 H Creatinine 2.45 H Estimated GFR 27 L Random Glucose 110 H Calcium 8.6 Total Bilirubin 0.6 AST 45 H ALT 8 L Alkaline Phosphatase 1933 H Total Protein 5.7 L D Albumin 2.4 L Nasal Screen MRSA (PCR) Blood Type Blood Type Recheck Antibody Screen MTS Gel Crossmatch Bld Prod Order Comment 11/01/18 07:29 CBC w Diff WBC RBC Hgb Hct MCV MCH MCHC RDW Plt Count MPV Neut % (Auto) Lymph % (Auto) [place] % (Auto) Eos % (Auto) Baso % (Auto) Neut # (Auto) Lymph # (Auto) [place] # (Auto) Eos # (Auto) Baso # (Auto) WBC Differential Differential Comment PT INR Sodium 141 Potassium 4.8 Chloride 107 Carbon Dioxide 25.6 Anion Gap 8 BUN 28 H Creatinine 3.17 H Estimated GFR 20 L Random Glucose 107 H Calcium 8.1 L Total Bilirubin 0.5 AST 299 H ALT 25 Alkaline Phosphatase 2917 H Total Protein 5.2 L Albumin 2.3 L Nasal Screen MRSA (PCR) Blood Type Blood Type Recheck Antibody Screen MTS Gel Crossmatch Bld Prod Order Comment Result Diagrams: 11/01/18 07:29 11/01/18 07:29 Microbiology: Microbiology 10/26/18 17:00 Aerobic Blood Culture - Final Blood - Peripheral No growth in 5 days Anaerobic Blood Culture - Final No growth in 5 days 10/26/18 17:00 Aerobic Blood Culture - Final Blood - Peripheral No growth in 5 days Anaerobic Blood Culture - Final No growth in 5 days 10/26/18 17:50 Urine Culture - Final Clean Catch Urine No growth in 48 hours Imaging: Chest X-Ray 10/26/18 16:35 CONCLUSION: 1. Mild infiltrate in the left lung base. 2. Otherwise, the rest the lung marinelli are grossly clear. Head CT 10/26/18 16:35 CONCLUSION: 1. Unremarkable CT brain for patient's age. . Assessment and Plan Pertinent Non-Medical Issues: Psychosocial: He was born in the [place] area and has lived in this area for nearly 10 years. [facility] a [facility]. He is 2 sons and 1 daughter, all local. 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 Spiritual: Rastafarian robbi but not affiliated with any particular judaism or clergy. 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 Legal: No living well or DPOA. Patient has named his daughter Lisa and son Frank as co-HCS. Ethical issues impacting care: None noted. . Important Contacts: Daughter: Lisa Ely Frank Ross . Prognosis: His prognosis is poor. He has terminal, stage IV prostate cancer with metastasis to the bone. PSA is 196, alkaline phosphatase over 2000. He is having bone pain and altered mental status of unknown origin. He has end-stage renal disease on hemodialysis with significant unintentional weight loss of over 40 pounds in approximately 3 months. He would be hospice appropriate if goals were consistent. . Code Status: Full Code (Intubation only) Plan: PLAN: Legal decision maker: He does not appear to be capacitated today, as he is oriented only to self. He has signed his daughter, Christin Ely and his son, Frank Ross as joint healthcare surrogate's in the likelihood that he is unable to make his decisions. At this time until his mental status can be clarified, would recommend shared decision making. Goals: Aggressive at this time CODE STATUS: FULL CODE SYMPTOMS: * Altered mental status: Remains lethargic this morning with [facility] vacillating orientation. He is oriented to self, but not oriented to time, place or purpose. He is unsure of the date and does not know where he is or why he is here. * Pain: Secondary to bone metastasis, invasive lines, bedbound status, muscle wasting. He has Percocet 5/325 mg every 8 hours as needed available and takes 1 -2 tabs daily. * Weight loss: July 2018 he was 170 pounds, per his daughter, today he is 136 pounds. He has significant muscle wasting and debility. He is receiving Marinol for appetite stimulation. Palliative care will continue to follow the patient during hospital course as condition evolves, to assist patient/decision-maker with understanding of their medical conditions, weighing benefits/burdens of treatment options, for clarification of goals of treatment. Additionally will assist with any symptoms of palliative concern. . Attestation Attestation: To help prompt me to consider important information that might be impacting today's encounter and assessment, information from prior notes written by myself or my colleagues may have been "brought forward" into today's note. My signature on this note, however, is an attestation that I personally performed the exam, history, and/or decision-making noted today, and, unless otherwise indicated, the interactions with patient, family, and staff as well as the review of records all occurred today. I also attest that the listed assessment and stated plan reflect my best clinical judgment today based on the combination of historical information, prior notes, and today's exam/ interactions. When time spent is documented, it refers only to time spent today by the signer, or if indicated, combined time spent today by collaborating physician/nurse practitioner. .
[2018-11-01] MEDS ORDERED: fentaNYL Citrate Inj 100 MCG/2 ML Ampul ONE (12:48)
[2018-11-01] MEDS ORDERED: *Heparin 10,000 UNITS/10 ML Vial Periprocedural ONLY ONE (13:01)
[2018-11-01] MEDS ORDERED: Lidocaine 1%/Epinephrine 1:100,000 Inj 20 ML Vial ONE (13:01)
--- NOTE | 2018-11-01 15:32 | IR ---
EXAM DATE: 11/01/2018 1:56 PM EST AGE/SEX: 63 years / Male INDICATIONS: Patient with a history of renal disease, needs dialysis CLINICAL DATA: This is the patient's initial encounter. Patient reports that signs and symptoms have been present for 1 day and indicates a pain score of 0/10. MEDICAL/SURGICAL HISTORY: . Acute renal failureAnemiaDyspneaHTNKidney stonesProstate cancerSeps is . AV fistula COMPARISON: No prior exams available for comparison. FLUORO TIME (min): 1.08 IMAGE SERIES: 1 RADIATION DOSE: 5mGy CAK ACCESS SITE: Right internal jugular vein SEDATION TIME (min): 0 Prophylactic antibiotics were administered with appropriate pre-procedure timing. DEVICE(S): 19CM PALINDROM . . PROCEDURE: 1. Ultrasound-guided venipuncture. 2. PermaCath placement. 3. Conscious sedation with continuous EKG and oximetry monitoring. The risks, benefits and alternatives to the procedure were explained and verbal and written consent w as obtained. The site was prepped in sterile fashion. Full sterile technique was used, including ca p, mask, sterile gloves and gown and a large sterile sheet. Hand hygiene and 2% chlorhexidine and/or betadine/alcohol prep was utilized per protocol for cutaneous antisepsis. Sterile gel and sterile p robe cover were utilized for ultrasound guidance. The skin and subcutaneous tissues were infiltrated with local anesthetic solution. With ultrasound and fluoroscopic guidance a dermatotomy was created over the prescribed vein. A micr opuncture set was used to access the targeted vein and serial dilatation was performed to accept the prescribed length catheter. A subcutaneous tunnel was created in a retrograde fashion the catheter w as pulled through the tunnel. The catheter was flushed and assembled and locked with heparin. The c atheter was sutured in place. Conscious sedation was performed with the prescribed dosages and duration as above in the presence of an independent trained radiology nurse to assist in the monitoring of the patient. EKG and oximetry remained stable throughout the procedure. The patient tolerated the procedure well and there were n o complications. The patient was sent to post anesthesia recovery in stable condition. CONCLUSION: 1. Uncomplicated PermaCath placement as above. Electronically signed by: Ferdinand Fisher MD Board Certified Radiologist 11/01/2018 3:31 PM EST
[2018-11-01] MEDS: Sod Chloride 0.9% Inj 1,000 ML IV.CONT SCH (17:25)
[2018-11-01] MEDS: Heparin 10,000 UNITS/10 ML Vial (for IV use) OTHER PRN (17:45)
[2018-11-01] MEDS: Azithromycin Inj 500 MG in Sodium Chlor 0.9% Inj 250 ML IV.SIG SCH (20:31)
[2018-11-01 22:20] LABS: Baso % (Auto) 0.3 % (0.0-2.0); Eos % (Auto) 0.1 % (0.0-4.0); Hematocrit 22.1 % (39.0-51.0); Hemoglobin 7.6 gm/dL (13.0-17.0); Lymph % (Auto) 36.9 % (9.0-44.0); Mean Corpuscular HGB Conc 34.4 % (32.0-36.0); Mean Corpuscular Hemoglobin 30.6 pg (27.0-34.0); Mean Corpuscular Volume 89.1 fL (80.0-100.0); Mean Platelet Volume 7.1 fL (7.0-11.0); Mono # (Auto) 0.5 th/mm3 (0.0-0.9); Mono % (Auto) 6.6 % (0.0-8.0); Neut # (Auto) 4.5 th/mm3 (1.8-7.7); Neut % (Auto) 56.1 % (16.0-70.0); Platelet Count 156 th/mm3 (150-450); Red Blood Count 2.48 mil/mm3 (4.50-5.90); Red Cell Distribution Width 20.6 % (11.6-17.2)
[2018-11-02] MEDS: Chlorhexidine Gluconate 2% 1 Pack (2 Cloths) TOPICAL SCH (03:56)
[2018-11-02] MEDS: Metoprolol Tartrate 25 MG Tablet PO SCH ×2 (08:05→20:02)
[2018-11-02] MEDS: Calcium/Vitamin D 250/125 MG Tablet PO SCH ×2 (08:08→20:03)
[2018-11-02] MEDS: Magnesium Oxide 400 MG Tablet PO SCH (08:10)
[2018-11-02] MEDS: Ferrous Sulfate 325 MG Tablet PO SCH ×3 (08:16→18:25)
--- NOTE | 2018-11-02 09:36 | P.PNIM ---
Physical Exam Vital signs: Vital Signs 11/01/18 10:00 11/01/18 10:01 11/01/18 11:00 Temperature Pulse Rate 73 73 68 Respiratory Rate 16 18 15 Blood Pressure 180/70 H Pulse Oximetry 66 L 62 L 11/01/18 11:01 11/01/18 12:00 11/01/18 12:53 Temperature 98.0 F Pulse Rate 67 74 Respiratory Rate 14 18 Blood Pressure 177/72 H 160/69 H Pulse Oximetry 94 L 11/01/18 12:59 11/01/18 13:35 11/01/18 13:51 Temperature Pulse Rate 75 80 Respiratory Rate 15 Blood Pressure 167/83 H Pulse Oximetry 95 11/01/18 13:55 11/01/18 14:00 11/01/18 14:15 Temperature Pulse Rate 76 75 71 Respiratory Rate 15 61 H 14 Blood Pressure 199/79 H Pulse Oximetry 100 100 100 11/01/18 14:30 11/01/18 14:45 11/01/18 14:53 Temperature Pulse Rate 71 69 70 Respiratory Rate 14 14 14 Blood Pressure 125/61 Pulse Oximetry 100 99 100 11/01/18 15:00 11/01/18 15:15 11/01/18 15:30 Temperature Pulse Rate 69 72 70 Respiratory Rate 14 15 14 Blood Pressure Pulse Oximetry 99 96 100 11/01/18 15:45 11/01/18 16:00 11/01/18 17:00 Temperature 97.9 F Pulse Rate 76 74 78 Respiratory Rate 17 16 14 Blood Pressure 171/72 H Pulse Oximetry 100 100 100 11/01/18 17:15 11/01/18 17:30 11/01/18 17:45 Temperature Pulse Rate 80 83 84 Respiratory Rate 14 17 17 Blood Pressure 155/70 H 153/67 H 144/65 H Pulse Oximetry 99 93 L 87 L 11/01/18 18:00 11/01/18 18:01 11/01/18 18:15 Temperature Pulse Rate 83 83 84 Respiratory Rate 14 16 15 Blood Pressure 120/65 125/68 Pulse Oximetry 87 L 86 L 86 L 11/01/18 18:30 11/01/18 18:45 11/01/18 19:00 Temperature Pulse Rate 105 H 86 90 Respiratory Rate 24 15 19 Blood Pressure 141/69 H 109/58 L 112/58 L Pulse Oximetry 79 L 11/01/18 19:15 02/13/19 19:30 11/01/18 19:41 Temperature Pulse Rate 86 90 85 Respiratory Rate 17 21 15 Blood Pressure 102/57 L 99/55 L 126/60 Pulse Oximetry 11/01/18 19:45 11/01/18 20:00 11/01/18 21:00 Temperature 97.6 F Pulse Rate 83 82 84 Respiratory Rate 17 17 21 Blood Pressure 137/68 136/67 147/64 H Pulse Oximetry 99 96 11/01/18 22:00 11/01/18 23:00 11/02/18 00:00 Temperature 98 F Pulse Rate 78 74 72 Respiratory Rate 14 13 44 H Blood Pressure 152/64 H 135/60 126/58 L Pulse Oximetry 99 100 99 11/02/18 01:00 11/02/18 02:00 11/02/18 03:00 Temperature Pulse Rate 82 80 75 Respiratory Rate 48 H 56 H 57 H Blood Pressure 155/71 H 156/67 H 133/60 Pulse Oximetry 100 99 99 11/02/18 04:00 11/02/18 05:00 11/02/18 06:00 Temperature 97.7 F Pulse Rate 87 75 76 Respiratory Rate 27 H 20 40 H Blood Pressure 135/62 143/66 H 141/72 H Pulse Oximetry 96 99 100 11/02/18 08:00 Temperature Pulse Rate Respiratory Rate Blood Pressure Pulse Oximetry 96 Intake & Output 11/01/18 11/02/18 11/02/18 18:59 06:59 18:59 Intake Total 1233 / 1233 650 / 650 Output Total 3100 / 3100 Balance 1233 / 1233 -2450 / -2450 Weight 62.4 kg Intake: IV 1133 / 1133 450 / 450 NS Inj 1,000 ML @ 30 mls/hr IV. 1033 / 1033 CONT .Q24H CYNDIE Rx#:[id number] Azithromycin Inj 500 MG In NS 250 / 250 Inj 250 ML @ 250 mls/hr IV.SIG Q24H CYNDIE Rx#:[id number] Azactam Inj 1,000 MG In NS Inj 100 / 100 200 / 200 100 ML @ 200 mls/hr IV.SIG Q8H CYNDIE Rx#:[id number] Oral 100 / 100 200 / 200 Output: Urine 100 / 100 Hemodialysis Amount 3000 / 3000 Other: Date of Last Bowel Movement 10/30/18 10/30/18 10/30/18 # Bowel Movements 0 0 Narrative: GENERAL: middle aged man laying in bed, not in distress. HEENT:pale,anicteric, geographic tongue. NECK:no JVD,RIJ tunneled catheter,dressing in place. CARDIOVASCULAR: Regular rate and rhythm without murmurs, gallops, or rubs. RESPIRATORY: Clear to auscultation. Breath sounds equal bilaterally. No wheezes , rales, or rhonchi. GASTROINTESTINAL: Abdomen soft, non-tender, nondistended. Normal active bowel sounds MUSCULOSKELETAL: edema in both upper and lower extremities. Crepe dressing on Lt arm. NEURO: awake,but appears lethargic. He responded that he was not in pain,did not offer much conversation after that. Results Labs CBC & Chem 7: 11/01/18 20:59 11/01/18 07:29 Imaging Imaging: Impressions Central Venous Line 11/01/18 08:00 CONCLUSION: 1. Uncomplicated PermaCath placement as above. Assessment and Plan Plan 63 yo M with ESRD on HD MWF schedule, Anemia, HTN, HEP C,Metastatic prostatic cancer who was initially at [facility] for altered mentation, found to have pneumonia and UTI, was started on IV abx and admitted there. He suffered rupture of AVF during hemodialysis,with attendant hemorrhagic shock and was emergently taken to OR for AVF ligation, subsequently transferred to [facility] ICU for further management. Hemorrhagic shock Due to AVF rupture, no s/p ligation and hemostasis was achieved. monitor H/h, keep >8. Acute metabolic encephalopathy-likely multifactorial in setting of his metastatic cancer, infection, patient awake,but lethargic. Healthcare associated pneumonia -Aztreonam and azithromycin -blood cultures negative to date -Follow-up urine antigens Urinary tract infection -Broad-spectrum antibiotics as above, cultures negative to date. Anemia -Blood loss anemia -H/h stable. -Continue iron supplement Metastatic prostate cancer --with poor prognosis. -Palliative care team following,goals of care being discussed with family. DVT GI prophylaxis -Teds SCDs -No pharmacological DVT prophylaxis due to hemorrhagic shock -Pepcid Palliative care following to assist with deciding goals of therapy. Progress Note: Quality VTE Deep Vein Thrombosis/Pulmonary Embolism Present on Admission: No
--- NOTE | 2018-11-02 12:27 | P.PNNP ---
Subjective Interval history: Resting in bed, very lethargic. <Marta Barraza - Last Filed: 11/02/18 12:19> Physical Exam Vital signs: Vital Signs 11/01/18 12:53 11/01/18 12:59 11/01/18 13:35 Temperature Pulse Rate 75 Respiratory Rate Blood Pressure 167/83 H Pulse Oximetry 94 L 95 11/01/18 13:51 11/01/18 13:55 11/01/18 14:00 Temperature Pulse Rate 80 76 75 Respiratory Rate 15 15 61 H Blood Pressure 199/79 H Pulse Oximetry 100 100 11/01/18 14:15 11/01/18 14:30 11/01/18 14:45 Temperature Pulse Rate 71 71 69 Respiratory Rate 14 14 14 Blood Pressure Pulse Oximetry 100 100 99 11/01/18 14:53 11/01/18 15:00 11/01/18 15:15 Temperature Pulse Rate 70 69 72 Respiratory Rate 14 14 15 Blood Pressure 125/61 Pulse Oximetry 100 99 96 11/01/18 15:30 11/01/18 15:45 11/01/18 16:00 Temperature 97.9 F Pulse Rate 70 76 74 Respiratory Rate 14 17 16 Blood Pressure Pulse Oximetry 100 100 100 11/01/18 17:00 11/01/18 17:15 11/01/18 17:30 Temperature Pulse Rate 78 80 83 Respiratory Rate 14 14 17 Blood Pressure 171/72 H 155/70 H 153/67 H Pulse Oximetry 100 99 93 L 11/01/18 17:45 11/01/18 18:00 11/01/18 18:01 Temperature Pulse Rate 84 83 83 Respiratory Rate 17 14 16 Blood Pressure 144/65 H 120/65 Pulse Oximetry 87 L 87 L 86 L 11/01/18 18:15 11/01/18 18:30 11/01/18 18:45 Temperature Pulse Rate 84 105 H 86 Respiratory Rate 15 24 15 Blood Pressure 125/68 141/69 H 109/58 L Pulse Oximetry 86 L 79 L 11/01/18 19:00 11/01/18 19:15 11/01/18 19:30 Temperature Pulse Rate 90 86 90 Respiratory Rate 19 17 21 Blood Pressure 112/58 L 102/57 L 99/55 L Pulse Oximetry 11/01/18 19:41 11/01/18 19:45 11/01/18 20:00 Temperature 97.6 F Pulse Rate 85 83 82 Respiratory Rate 15 17 17 Blood Pressure 126/60 137/68 136/67 Pulse Oximetry 99 11/01/18 21:00 11/01/18 22:00 11/01/18 23:00 Temperature Pulse Rate 84 78 74 Respiratory Rate 21 14 13 Blood Pressure 147/64 H 152/64 H 135/60 Pulse Oximetry 96 99 100 11/02/18 00:00 11/02/18 01:00 11/02/18 02:00 Temperature 98 F Pulse Rate 72 82 80 Respiratory Rate 44 H 48 H 56 H Blood Pressure 126/58 L 155/71 H 156/67 H Pulse Oximetry 99 100 99 11/02/18 03:00 11/02/18 04:00 11/02/18 05:00 Temperature 97.7 F Pulse Rate 75 87 75 Respiratory Rate 57 H 27 H 20 Blood Pressure 133/60 135/62 143/66 H Pulse Oximetry 99 96 99 11/02/18 06:00 11/02/18 08:00 11/02/18 09:00 Temperature 98 F Pulse Rate 76 82 70 Respiratory Rate 40 H 24 26 H Blood Pressure 141/72 H 162/70 H 152/66 H Pulse Oximetry 100 98 97 11/02/18 10:00 11/02/18 10:30 Temperature Pulse Rate 66 Respiratory Rate 24 Blood Pressure 125/56 L Pulse Oximetry 93 L 95 Intake & Output 11/01/18 11/02/18 11/02/18 18:59 06:59 18:59 Intake Total 1233 / 1233 650 / 650 Output Total 3100 / 3100 Balance 1233 / 1233 -2450 / -2450 Weight 62.4 kg Intake: IV 1133 / 1133 450 / 450 NS Inj 1,000 ML @ 30 mls/hr IV. 1033 / 1033 CONT .Q24H CYNDIE Rx#:[id number] Azithromycin Inj 500 MG In NS 250 / 250 Inj 250 ML @ 250 mls/hr IV.SIG Q24H CYNDIE Rx#:[id number] Azactam Inj 1,000 MG In NS Inj 100 / 100 200 / 200 100 ML @ 200 mls/hr IV.SIG Q8H CYNDIE Rx#:[id number] Oral 100 / 100 200 / 200 Output: Urine 100 / 100 Hemodialysis Amount 3000 / 3000 Other: Date of Last Bowel Movement 10/30/18 10/30/18 10/30/18 # Bowel Movements 0 0 Narrative: GENERAL: mal-nourished, looks very ill, lethargic SKIN: Cold and dry. HEAD: Normocephalic. EYES: No scleral icterus. No injection or drainage. NECK: Supple, trachea midline. No JVD or lymphadenopathy. CARDIOVASCULAR: Regular rate and rhythm without murmurs, gallops, or rubs. Permacath in place to right subclavian. RESPIRATORY: Breath sounds equal bilaterally. No accessory muscle use. Breath sounds diminished throughout GASTROINTESTINAL: Abdomen soft, non-tender, nondistended. EXTREMITIES: Loss of muscle mass, weak, AV fistula ligated and heavily bandaged , left hand swollen. NEUROLOGICAL: Lethargic, confused <Marta Barraza - Last Filed: 11/02/18 12:19> Vital signs: Vital Signs 11/01/18 15:15 11/01/18 15:30 11/01/18 15:45 Temperature Pulse Rate 72 70 76 Respiratory Rate 15 14 17 Blood Pressure Pulse Oximetry 96 100 100 11/01/18 16:00 11/01/18 17:00 11/01/18 17:15 Temperature 97.9 F Pulse Rate 74 78 80 Respiratory Rate 16 14 14 Blood Pressure 171/72 H 155/70 H Pulse Oximetry 100 100 99 11/01/18 17:30 11/01/18 17:45 11/01/18 18:00 Temperature Pulse Rate 83 84 83 Respiratory Rate 17 17 14 Blood Pressure 153/67 H 144/65 H Pulse Oximetry 93 L 87 L 87 L 11/01/18 18:01 11/01/18 18:15 11/01/18 18:30 Temperature Pulse Rate 83 84 105 H Respiratory Rate 16 15 24 Blood Pressure 120/65 125/68 141/69 H Pulse Oximetry 86 L 86 L 79 L 11/01/18 18:45 11/01/18 19:00 11/01/18 19:15 Temperature Pulse Rate 86 90 86 Respiratory Rate 15 19 17 Blood Pressure 109/58 L 112/58 L 102/57 L Pulse Oximetry 11/01/18 19:30 11/01/18 19:41 11/01/18 19:45 Temperature Pulse Rate 90 85 83 Respiratory Rate 21 15 17 Blood Pressure 99/55 L 126/60 137/68 Pulse Oximetry 11/01/18 20:00 11/01/18 21:00 11/01/18 22:00 Temperature 97.6 F Pulse Rate 82 84 78 Respiratory Rate 17 21 14 Blood Pressure 136/67 147/64 H 152/64 H Pulse Oximetry 99 96 99 11/01/18 23:00 11/02/18 00:00 11/02/18 01:00 Temperature 98 F Pulse Rate 74 72 82 Respiratory Rate 13 44 H 48 H Blood Pressure 135/60 126/58 L 155/71 H Pulse Oximetry 100 99 100 11/02/18 02:00 11/02/18 03:00 11/02/18 04:00 Temperature 97.7 F Pulse Rate 80 75 87 Respiratory Rate 56 H 57 H 27 H Blood Pressure 156/67 H 133/60 135/62 Pulse Oximetry 99 99 96 11/02/18 05:00 11/02/18 06:00 11/02/18 08:00 Temperature 98 F Pulse Rate 75 76 82 Respiratory Rate 20 40 H 24 Blood Pressure 143/66 H 141/72 H 162/70 H Pulse Oximetry 99 100 98 11/02/18 09:00 11/02/18 10:00 11/02/18 10:30 Temperature Pulse Rate 70 66 Respiratory Rate 26 H 24 Blood Pressure 152/66 H 125/56 L Pulse Oximetry 97 93 L 95 Intake & Output 11/01/18 11/02/18 11/02/18 18:59 06:59 18:59 Intake Total 1233 / 1233 650 / 650 Output Total 3100 / 3100 Balance 1233 / 1233 -2450 / -2450 Weight 62.4 kg Intake: IV 1133 / 1133 450 / 450 NS Inj 1,000 ML @ 30 mls/hr IV. 1033 / 1033 CONT .Q24H CYNDIE Rx#:[id number] Azithromycin Inj 500 MG In NS 250 / 250 Inj 250 ML @ 250 mls/hr IV.SIG Q24H CYNDIE Rx#:[id number] Azactam Inj 1,000 MG In NS Inj 100 / 100 200 / 200 100 ML @ 200 mls/hr IV.SIG Q8H CYNDIE Rx#:[id number] Oral 100 / 100 200 / 200 Output: Urine 100 / 100 Hemodialysis Amount 3000 / 3000 Other: Date of Last Bowel Movement 10/30/18 10/30/1810/30/19 # Bowel Movements 0 0 <Karena Duval - Last Filed: 11/02/18 15:01> Assessment and Plan - Assessment (1) End stage renal disease Code(s): N18.6 - End stage renal disease Status: Chronic Plan: Status post ligation to fistula on 10/30/2018, secondary to profuse bleeding, was hemodynamically unstable. Currently hemodynamically stable. Patient is on dialysis on Tuesday and Tuesday however he is doing very poorly due to metastatic prostate cancer. Dialysis performed yesterday. PSA of 196 Alkaline phosphatase very high Metastatic cancer to the bone Poor prognosis According to palliative note, patient's daughter and son has decided to keep current full CODE STATUS. At this time, the patient is to confused to make an informed decision. Palliative care is meeting with patient's son and daughter to readdress status today. -Continue supportive care at this time (2) Metastatic malignant neoplasm to prostate Code(s): C79.82 - Secondary malignant neoplasm of genital organs Status: Acute Plan: Poor prognosis - palliative care on the case (3) Anemia Code(s): D64.9 - Anemia, unspecified Status: Acute Plan: Current hemoglobin 7.6 yesterday evening. 10,000 units of Epogen given during dialysis yesterday. -Continue to monitor - CBC in the AM <Marta Barraza - Last Filed: 11/02/18 12:19> - Assessment (1) End stage renal disease Code(s): N18.6 - End stage renal disease Status: Chronic (2) Metastatic malignant neoplasm to prostate Code(s): C79.82 - Secondary malignant neoplasm of genital organs Status: Acute (3) Anemia Code(s): D64.9 - Anemia, unspecified Status: Acute Qualifiers: Anemia type: due to chronic kidney disease Chronic kidney disease stage: on chronic dialysis Qualified Code(s): N18.6 - End stage renal disease; D63.1 - Anemia in chronic kidney disease; Z99.2 - Dependence on renal dialysis - Attending Attestation I have seen and examined the patient and I above assessment and plan discussed with ANN Lozano, unfortunately he has advanced stage metastatic prostate cancer and is very lethargic, overall prognosis is poor. Palliative care is discussing with the family. <Karena Duval - Last Filed: 11/02/18 15:01>
--- NOTE | 2018-11-02 12:39 | P.PNPAL ---
Reason for Visit Reason for visit: a. To assist with evaluation and management of symptoms including: Altered mental status, pain, weight loss b. To assist medical decision maker(s) with: better understanding of current medical conditions; weighing benefits/burdens of medical treatment options; making medical treatment decisions. Subjective Subjective/Interval History: This is a 63-year old male with a past medical history of end-stage renal disease on hemodialysis, stage IV prostate cancer on Casodex, who has had increasing bone and leg pain, brought to [facility]. emergency department 10/26 from the shelter where he resides due to altered mental status. EMS reports that the family had noted a slight change in his mental status the prior day which worsened over the next 24 hours. He is reportedly normally alert and oriented. He was neither responding to verbal commands nor following directions. It is noted that he had previously refused 1 day of dialysis in the prior week. He has lost 40 pounds since July 2018. Patient is seen today for medically necessary visit to evaluate symptom management pain, weight loss status and to discuss goals of care with family. Patient is more lethargic today, slumped over in bed. He will open his eyes but is not focusing or tracking. He is not speaking or answering questions today. Yesterday he was able to minimally participate in conversation, and today does not appear to be able to. He received his tunneled permacath 24 hours prior via interventional radiology. He did receive conscious sedation during that procedure consisting of fentanyl 100 mcg, Versed 2 mg, lidocaine/epi , 20 mL and heparin 10,000 units. His last dose of Percocet was given 11/01 at 21:13, approximately 15 hours ago. He is unable to provide any information to quantify or qualify his pain today due to his altered mental status and progressive lethargy. No complications were reported post procedure. He is pending dialysis tomorrow. Vital signs remained stable with blood pressure 125/56, respiratory rate 24, pulse rate 66 and oxygen saturation 95% on room air. No new laboratory studies were done today. He is edematous today weight remaining stable at approximately 137 pounds. . Family/Friend Interactions: Spoke with his daughter, Christin. Pending family meeting to discuss goals of care , family is hopeful that patient will be able to participate in this meeting. Based on his presentation today he would be unable to do so. Discussed this with the daughter, who plans to visit him today at lunchtime and arrange a meeting either later today or tomorrow with her brother to try to develop goals of care. Patient is clearly declining in spite of maximum medical support and is at enormous risk for continued complications and decline. Pending return call from the daughter. . Advance Directives Health Care Surrogate Name and Number: Christin Ely and Juan Manuel Ross Objective Vital Signs: Vital Signs 11/01/18 12:53 11/01/18 12:59 11/01/18 13:35 Temperature Pulse Rate 75 Respiratory Rate Blood Pressure 167/83 H Pulse Oximetry 94 L 95 11/01/18 13:51 11/01/18 13:55 11/01/18 14:00 Temperature Pulse Rate 80 76 75 Respiratory Rate 15 15 61 H Blood Pressure 199/79 H Pulse Oximetry 100 100 11/01/18 14:15 11/01/18 14:30 11/01/18 14:45 Temperature Pulse Rate 71 71 69 Respiratory Rate 14 14 14 Blood Pressure Pulse Oximetry 100 100 99 11/01/18 14:53 11/01/18 15:00 11/01/18 15:15 Temperature Pulse Rate 70 69 72 Respiratory Rate 14 14 15 Blood Pressure 125/61 Pulse Oximetry 100 99 96 11/01/18 15:30 11/01/18 15:45 11/01/18 16:00 Temperature 97.9 F Pulse Rate 70 76 74 Respiratory Rate 14 17 16 Blood Pressure Pulse Oximetry 100 100 100 11/01/18 17:00 11/01/18 17:15 11/01/18 17:30 Temperature Pulse Rate 78 80 83 Respiratory Rate 14 14 17 Blood Pressure 171/72 H 155/70 H 153/67 H Pulse Oximetry 100 99 93 L 11/01/18 17:45 11/01/18 18:00 11/01/18 18:01 Temperature Pulse Rate 84 83 83 Respiratory Rate 17 14 16 Blood Pressure 144/65 H 120/65 Pulse Oximetry 87 L 87 L 86 L 11/01/18 18:15 11/01/18 18:30 11/01/18 18:45 Temperature Pulse Rate 84 105 H 86 Respiratory Rate 15 24 15 Blood Pressure 125/68 141/69 H 109/58 L Pulse Oximetry 86 L 79 L 11/01/18 19:00 11/01/18 19:15 11/01/18 19:30 Temperature Pulse Rate 90 86 90 Respiratory Rate 19 17 21 Blood Pressure 112/58 L 102/57 L 99/55 L Pulse Oximetry 11/01/18 19:41 11/01/18 19:45 11/01/18 20:00 Temperature 97.6 F Pulse Rate 85 83 82 Respiratory Rate 15 17 17 Blood Pressure 126/60 137/68 136/67 Pulse Oximetry 99 11/01/18 21:00 11/01/18 22:00 11/01/18 23:00 Temperature Pulse Rate 84 78 74 Respiratory Rate 21 14 13 Blood Pressure 147/64 H 152/64 H 135/60 Pulse Oximetry 96 99 100 11/02/18 00:00 11/02/18 01:00 11/02/18 02:00 Temperature 98 F Pulse Rate 72 82 80 Respiratory Rate 44 H 48 H 56 H Blood Pressure 126/58 L 155/71 H 156/67 H Pulse Oximetry 99 100 99 11/02/18 03:00 11/02/18 04:00 11/02/18 05:00 Temperature 97.7 F Pulse Rate 75 87 75 Respiratory Rate 57 H 27 H 20 Blood Pressure 133/60 135/62 143/66 H Pulse Oximetry 99 96 99 11/02/18 06:00 11/02/18 08:00 11/02/18 09:00 Temperature 98 F Pulse Rate 76 82 70 Respiratory Rate 40 H 24 26 H Blood Pressure 141/72 H 162/70 H 152/66 H Pulse Oximetry 100 98 97 11/02/18 10:00 11/02/18 10:30 Temperature Pulse Rate 66 Respiratory Rate 24 Blood Pressure 125/56 L Pulse Oximetry 93 L 95 Intake & Output 11/01/18 11/02/18 11/02/18 18:59 06:59 18:59 Intake Total 1233 / 1233 650 / 650 Output Total 3100 / 3100 Balance 1233 / 1233 -2450 / -2450 Weight 137 lb 9.095 oz Intake: IV 1133 / 1133 450 / 450 NS Inj 1,000 ML @ 30 mls/hr IV. 1033 / 1033 CONT .Q24H CYNDIE Rx#:[id number] Azithromycin Inj 500 MG In NS 250 / 250 Inj 250 ML @ 250 mls/hr IV.SIG Q24H CYNDIE Rx#:[id number] Azactam Inj 1,000 MG In NS Inj 100 / 100 200 / 200 100 ML @ 200 mls/hr IV.SIG Q8H CYNDIE Rx#:[id number] Oral 100 / 100 200 / 200 Output: Urine 100 / 100 Hemodialysis Amount 3000 / 3000 Other: Date of Last Bowel Movement 10/30/18 10/30/18 10/30/18 # Bowel Movements 0 0 Physical Exam: CONSTITUTIONAL/GENERAL: This is a cachectic, male lying in bed, lethargic, NAD. TUBES/LINES/DRAINS: Right chest permacath, right distal forearm PIV, right foot PIV, right wrist PIV, Pollock catheter SKIN: Mild jaundice, no rashes, or lesions. Ecchymoses on upper extremities. Left arm wrapped in surgical David wrap skin temperature appropriate. Not diaphoretic. HEAD: Atraumatic. Normocephalic. Temporal wasting. EYES: Pupils equal and round and reactive. Extraocular motions intact. No scleral icterus. No injection or drainage. Fundi not examined. CARDIOVASCULAR: Regular rate and rhythm without murmurs, gallops, or rubs. No JVD. Peripheral pulses symmetric. RESPIRATORY/CHEST: Symmetric, unlabored respirations. Clear to auscultation. Breath sounds equal bilaterally. No wheezes, rales, or rhonchi. GASTROINTESTINAL: Abdomen soft, non-tender, nondistended. No hepato-splenomegaly , or palpable masses. No guarding. Bowel sounds present. GENITOURINARY: Without palpable bladder distension. Oliguric, urinates approximately 100 mL daily.. MUSCULOSKELETAL: Significant muscle wasting, right arm with 2+ edema, blistered with ecchymosis on forearm, 2+ edema hands and feet. NEUROLOGICAL: Lethargic, minimally arousable, not speaking or interacting today. Minimal ability to nod. PSYCHIATRIC: Flat affect, appears depressed, lethargic. . Diagnostic Tests Laboratory: Laboratory Results - last 72 hr 10/26/18 10/30/18 10/30/18 18:45 15:58 16:23 WBC RBC Hgb Hct MCV MCH MCHC RDW Plt Count MPV Neut % (Auto) Lymph % (Auto) [place] % (Auto) Eos % (Auto) Baso % (Auto) Neut # (Auto) Lymph # (Auto) [place] # (Auto) Eos # (Auto) Baso # (Auto) WBC Differential Differential Comment PT INR Sodium Potassium Chloride Carbon Dioxide Anion Gap BUN Creatinine Estimated GFR Random Glucose Calcium Total Bilirubin AST ALT Alkaline Phosphatase Total Protein Albumin Nasal Screen MRSA (PCR) Blood Type Cancelled Blood Type Recheck Cancelled Antibody Screen Cancelled MTS Gel Crossmatch See Detail See Detail Bld Prod Order Comment Cancelled 10/30/18 10/30/18 10/30/18 16:33 16:42 20:15 WBC RBC Hgb Hct MCV MCH MCHC RDW Plt Count MPV Neut % (Auto) Lymph % (Auto) [place] % (Auto) Eos % (Auto) Baso % (Auto) Neut # (Auto) Lymph # (Auto) [place] # (Auto) Eos # (Auto) Baso # (Auto) WBC Differential Differential Comment PT INR Sodium Potassium Chloride Carbon Dioxide Anion Gap BUN Creatinine Estimated GFR Random Glucose Calcium Total Bilirubin AST ALT Alkaline Phosphatase Total Protein Albumin Nasal Screen MRSA (PCR) Mrsa detected Blood Type O Negative Blood Type Recheck Antibody Screen Negative MTS Gel Crossmatch See Detail See Detail Bld Prod Order Comment 10/31/18 10/31/18 11/01/18 10:45 10:45 07:29 WBC 10.0 RBC 3.15 L Hgb 9.6 L Hct 28.1 L MCV 89.3 MCH 30.5 MCHC 34.2 RDW 21.7 H D Plt Count 158 MPV 7.2 Neut % (Auto) 57.4 Lymph % (Auto) 38.3 [place] % (Auto) 4.1 Eos % (Auto) 0.0 Baso % (Auto) 0.2 Neut # (Auto) 5.7 Lymph # (Auto) 3.8 [place] # (Auto) 0.4 Eos # (Auto) 0.0 Baso # (Auto) 0.0 WBC Differential . Differential Comment Auto diff final PT 18.7 H INR 1.8 Sodium 140 Potassium 4.7 Chloride 105 Carbon Dioxide 23.3 Anion Gap 12 BUN 21 H Creatinine 2.45 H Estimated GFR 27 L Random Glucose 110 H Calcium 8.6 Total Bilirubin 0.6 AST 45 H ALT 8 L Alkaline Phosphatase 1933 H Total Protein 5.7 L D Albumin 2.4 L Nasal Screen MRSA (PCR) Blood Type Blood Type Recheck Antibody Screen MTS Gel Crossmatch Bld Prod Order Comment 11/01/18 11/01/1811/01/19 07:29 07:29 20:59 WBC 9.9 8.0 RBC 2.86 L 2.48 L Hgb 8.6 L 7.6 L Hct 25.3 L 22.1 L MCV 88.5 89.1 MCH 30.0 30.6 MCHC 33.9 34.4 RDW 21.0 H 20.6 H Plt Count 162 156 MPV 7.0 7.1 Neut % (Auto) 57.3 56.1 Lymph % (Auto) 37.8 36.9 [place] % (Auto) 4.4 6.6 Eos % (Auto) 0.1 0.1 Baso % (Auto) 0.4 0.3 Neut # (Auto) 5.7 4.5 Lymph # (Auto) 3.8 3.0 [place] # (Auto) 0.4 0.5 Eos # (Auto) 0.0 0.0 Baso # (Auto) 0.0 0.0 WBC Differential . . Differential Comment Auto diff final Auto diff final PT INR Sodium 141 Potassium 4.8 Chloride 107 Carbon Dioxide 25.6 Anion Gap 8 BUN 28 H Creatinine 3.17 H Estimated GFR 20 L Random Glucose 107 H Calcium 8.1 L Total Bilirubin 0.5 AST 299 H ALT 25 Alkaline Phosphatase 2917 H Total Protein 5.2 L Albumin 2.3 L Nasal Screen MRSA (PCR) Blood Type Blood Type Recheck Antibody Screen MTS Gel Crossmatch Bld Prod Order Comment Result Diagrams: 11/01/18 20:59 11/01/18 07:29 Microbiology: Microbiology 10/26/18 17:00 Aerobic Blood Culture - Final Blood - Peripheral No growth in 5 days Anaerobic Blood Culture - Final No growth in 5 days 10/26/18 17:00 Aerobic Blood Culture - Final Blood - Peripheral No growth in 5 days Anaerobic Blood Culture - Final No growth in 5 days Imaging: ITS Impressions Chest X-Ray 10/26/18 16:35 CONCLUSION: 1. Mild infiltrate in the left lung base. 2. Otherwise, the rest the lung marinelli are grossly clear. Head CT 10/26/18 16:35 CONCLUSION: 1. Unremarkable CT brain for patient's age. . Central Venous Line 11/01/18 08:00 CONCLUSION: 1. Uncomplicated PermaCath placement as above. Procedures: 10/30: Ligation of left arm AVF 2/13: Right permacath placement . Assessment and Plan - Disease Oriented Problem List (1) Anemia (2) Dyspnea (3) End stage renal disease (4) Prostate cancer metastatic to bone (5) NSTEMI (non-ST elevated myocardial infarction) (6) Pain (7) Delirium Pertinent Non-Medical Issues: Psychosocial: He was born in the [facility] and has lived in this area for nearly 10 years. He is currently residing in a nursing home facility. He is 2 sons and 1 daughter, all local. 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 Spiritual: Uatsdin robbi but not affiliated with any particular mandaen or clergy. He is declining stock clerk visits. Legal: No living well or DPOA. Patient has named his daughter Lisa and son Frank as co-HCS. Ethical issues impacting care: None noted. . Important Contacts: Daughter: Lisa Ely Frank Ross . Prognosis: His prognosis is poor. He has terminal, stage IV prostate cancer with metastasis to the bone. PSA is 196, alkaline phosphatase over 2000. He is having bone pain and altered mental status of unknown origin. He has end-stage renal disease on hemodialysis with significant unintentional weight loss of over 40 pounds in approximately 3 months. He would be hospice appropriate if goals were consistent. . Code Status: Full Code (Intubation only) Plan: PLAN: Legal decision maker: He does not appear to be capacitated today, as he is too lethargic to respond. He has signed his daughter, Christin lEy and his son , Frank Ross as joint healthcare surrogate's in the likelihood that he is unable to make his decisions. At this time until his mental status can be clarified, would recommend shared decision making. Goals: Aggressive at this time CODE STATUS: FULL CODE SYMPTOMS: * Altered mental status: Remains lethargic this morning with vacillating orientation. He is unable to respond at all to questions. His eyes are open but not focusing or tracking. Would recommend mental capacity evaluation by physician. * Pain: Secondary to bone metastasis, invasive lines, bedbound status, muscle wasting. He has Percocet 5/325 mg every 8 hours as needed available and takes 1 -2 tabs daily. Would recommend initiating methadone 2.5 mg twice daily due to its positive effect on bone pain, which he is having due to metastasis, to decrease the use of Percocet due to his sedation and AMS. * Weight loss: July 2018 he was 170 pounds, per his daughter, today he is 137 pounds. He has significant muscle wasting and debility. His albumin is 2.3 and he is developing increasing edema. He is receiving Marinol for appetite stimulation. Would recommend venous Doppler of the right arm due to significant and worsening edema overnight. Palliative care will continue to follow the patient during hospital course as condition evolves, to assist patient/decision-maker with understanding of their medical conditions, weighing benefits/burdens of treatment options, for clarification of goals of treatment. Additionally will assist with any symptoms of palliative concern. . Attestation Attestation: To help prompt me to consider important information that might be impacting today's encounter and assessment, information from prior notes written by myself or my colleagues may have been "brought forward" into today's note. My signature on this note, however, is an attestation that I personally performed the exam, history, and/or decision-making noted today, and, unless otherwise indicated, the interactions with patient, family, and staff as well as the review of records all occurred today. I also attest that the listed assessment and stated plan reflect my best clinical judgment today based on the combination of historical information, prior notes, and today's exam/ interactions. When time spent is documented, it refers only to time spent today by the signer, or if indicated, combined time spent today by collaborating physician/nurse practitioner. .
--- NOTE | 2018-11-02 12:43 | P.PNVS ---
Subjective Post Op Day #: 3 Procedure: LEFT arm access ligation Subjective/Hospital Course: remains very somnolent. does respond that he has no hand pain. Objective Vital Signs / I&O: Vital Signs 11/01/18 12:53 11/01/18 12:59 11/01/18 13:35 Temperature Pulse Rate 75 Respiratory Rate Blood Pressure 167/83 H Pulse Oximetry 94 L 95 11/01/18 13:51 11/01/18 13:55 11/01/18 14:00 Temperature Pulse Rate 80 76 75 Respiratory Rate 15 15 61 H Blood Pressure 199/79 H Pulse Oximetry 100 100 11/01/18 14:15 11/01/18 14:30 11/01/18 14:45 Temperature Pulse Rate 71 71 69 Respiratory Rate 14 14 14 Blood Pressure Pulse Oximetry 100 100 99 11/01/18 14:53 11/01/18 15:00 11/01/18 15:15 Temperature Pulse Rate 70 69 72 Respiratory Rate 14 14 15 Blood Pressure 125/61 Pulse Oximetry 100 99 96 11/01/18 15:30 11/01/18 15:45 11/01/18 16:00 Temperature 97.9 F Pulse Rate 70 76 74 Respiratory Rate 14 17 16 Blood Pressure Pulse Oximetry 100 100 100 11/01/18 17:00 11/01/18 17:15 11/01/18 17:30 Temperature Pulse Rate 78 80 83 Respiratory Rate 14 14 17 Blood Pressure 171/72 H 155/70 H 153/67 H Pulse Oximetry 100 99 93 L 11/01/18 17:45 11/01/18 18:00 11/01/18 18:01 Temperature Pulse Rate 84 83 83 Respiratory Rate 17 14 16 Blood Pressure 144/65 H 120/65 Pulse Oximetry 87 L 87 L 86 L 11/01/18 18:15 11/01/18 18:30 11/01/18 18:45 Temperature Pulse Rate 84 105 H 86 Respiratory Rate 15 24 15 Blood Pressure 125/68 141/69 H 109/58 L Pulse Oximetry 86 L 79 L 11/01/18 19:00 11/01/18 19:15 11/01/18 19:30 Temperature Pulse Rate 90 86 90 Respiratory Rate 19 17 21 Blood Pressure 112/58 L 102/57 L 99/55 L Pulse Oximetry 11/01/18 19:41 11/01/18 19:45 11/01/18 20:00 Temperature 97.6 F Pulse Rate 85 83 82 Respiratory Rate 15 17 17 Blood Pressure 126/60 137/68 136/67 Pulse Oximetry 99 11/01/18 21:00 11/01/18 22:00 11/01/18 23:00 Temperature Pulse Rate 84 78 74 Respiratory Rate 21 14 13 Blood Pressure 147/64 H 152/64 H 135/60 Pulse Oximetry 96 99 100 11/02/18 00:00 11/02/18 01:00 11/02/18 02:00 Temperature 98 F Pulse Rate 72 82 80 Respiratory Rate 44 H 48 H 56 H Blood Pressure 126/58 L 155/71 H 156/67 H Pulse Oximetry 99 100 99 11/02/18 03:00 11/02/18 04:00 11/02/18 05:00 Temperature 97.7 F Pulse Rate 75 87 75 Respiratory Rate 57 H 27 H 20 Blood Pressure 133/60 135/62 143/66 H Pulse Oximetry 99 96 99 11/02/18 06:00 11/02/18 08:00 11/02/18 09:00 Temperature 98 F Pulse Rate 76 82 70 Respiratory Rate 40 H 24 26 H Blood Pressure 141/72 H 162/70 H 152/66 H Pulse Oximetry 100 98 97 11/02/18 10:00 11/02/18 10:30 Temperature Pulse Rate 66 Respiratory Rate 24 Blood Pressure 125/56 L Pulse Oximetry 93 L 95 Intake & Output 11/01/18 11/02/18 11/02/18 18:59 06:59 18:59 Intake Total 1233 / 1233 650 / 650 Output Total 3100 / 3100 Balance 1233 / 1233 -2450 / -2450 Weight 62.4 kg Intake: IV 1133 / 1133 450 / 450 NS Inj 1,000 ML @ 30 mls/hr IV. 1033 / 1033 CONT .Q24H CYNDIE Rx#:[id number] Azithromycin Inj 500 MG In NS 250 / 250 Inj 250 ML @ 250 mls/hr IV.SIG Q24H CYNDIE Rx#:[id number] Azactam Inj 1,000 MG In NS Inj 100 / 100 200 / 200 100 ML @ 200 mls/hr IV.SIG Q8H CYNDIE Rx#:[id number] Oral 100 / 100 200 / 200 Output: Urine 100 / 100 Hemodialysis Amount 3000 / 3000 Other: Date of Last Bowel Movement 10/30/18 10/30/18 10/30/18 # Bowel Movements 0 0 Exam: arm edematous in dependent portions palpable radial pulse incision ok Laboratory Results - last 24 hr 10/30/18 11/01/18 16:42 20:59 WBC 8.0 RBC 2.48 L Hgb 7.6 L Hct 22.1 L MCV 89.1 MCH 30.6 MCHC 34.4 RDW 20.6 H Plt Count 156 MPV 7.1 Neut % (Auto) 56.1 Lymph % (Auto) 36.9 [place] % (Auto) 6.6 Eos % (Auto) 0.1 Baso % (Auto) 0.3 Neut # (Auto) 4.5 Lymph # (Auto) 3.0 [place] # (Auto) 0.5 Eos # (Auto) 0.0 Baso # (Auto) 0.0 WBC Differential . Differential Comment Auto diff final MTS Gel Crossmatch See Detail Assessment and Plan - Plan POD#3 s/p emergent LEFT arm access ligation 1. tunneled catheter for HD 2. Given palliative care for metastatic prostate CA, I would favor no new surgical access 3. Dressing changes to arm including ointment to skin tears 4. F/U scheduled in my clinic for suture removal Discharge Planning: anytime from a vascular surgery standpoint
[2018-11-02] MEDS: Azithromycin Inj 500 MG in Sodium Chlor 0.9% Inj 250 ML IV.SIG SCH (18:25)
[2018-11-02] MEDS: Sod Chloride 0.9% Inj 1,000 ML IV.CONT SCH ×2 (18:25→20:03)
[2018-11-03] MEDS: Chlorhexidine Gluconate 2% 1 Pack (2 Cloths) TOPICAL SCH (03:28)
[2018-11-03] MEDS: Calcium/Vitamin D 250/125 MG Tablet PO SCH ×2 (09:00→20:57)
[2018-11-03] MEDS: Metoprolol Tartrate 25 MG Tablet PO SCH ×2 (09:00→20:56)
[2018-11-03] MEDS: Magnesium Oxide 400 MG Tablet PO SCH (09:00)
[2018-11-03] MEDS: Ferrous Sulfate 325 MG Tablet PO SCH ×3 (09:00→18:31)
--- NOTE | 2018-11-03 09:26 | P.PNIM ---
Subjective Interval history: Patient is more awake this morning. asking for a cup. Physical Exam Vital signs: Vital Signs 11/02/18 10:00 11/02/18 10:30 11/02/18 11:00 Temperature Pulse Rate 66 69 Respiratory Rate 24 28 H Blood Pressure 125/56 L 129/60 Pulse Oximetry 93 L 95 95 11/02/18 12:00 11/02/18 13:00 11/02/18 14:00 Temperature 98.8 F Pulse Rate 79 75 79 Respiratory Rate 26 H 24 24 Blood Pressure 143/63 H 125/58 L 136/64 Pulse Oximetry 96 89 L 97 11/02/18 15:00 11/02/18 16:00 11/02/18 17:00 Temperature 98.5 F Pulse Rate 97 H 87 84 Respiratory Rate 22 20 18 Blood Pressure 138/63 139/62 115/59 L Pulse Oximetry 93 L 98 93 L 11/02/18 18:00 11/02/18 19:00 11/02/18 19:50 Temperature Pulse Rate 93 H 101 H Respiratory Rate 20 21 Blood Pressure 145/64 H 149/65 H Pulse Oximetry 93 L 91 L 95 11/02/18 20:00 11/02/18 21:00 11/02/18 22:00 Temperature 97.8 F Pulse Rate 81 91 H 86 Respiratory Rate 20 20 19 Blood Pressure 124/58 L 143/65 H 142/62 H Pulse Oximetry 96 99 98 11/02/18 23:00 11/03/18 00:00 11/03/18 01:00 Temperature 98 F Pulse Rate 90 83 82 Respiratory Rate 20 20 17 Blood Pressure 157/67 H 146/63 H 140/62 Pulse Oximetry 100 100 100 11/03/18 02:00 11/03/18 03:00 11/03/18 04:00 Temperature 98.1 F Pulse Rate 85 82 87 Respiratory Rate 19 16 19 Blood Pressure 141/63 H 150/64 H 156/67 H Pulse Oximetry 100 100 100 11/03/18 08:00 Temperature Pulse Rate Respiratory Rate Blood Pressure Pulse Oximetry 100 Intake & Output 11/02/18 11/03/18 11/03/18 18:59 06:59 18:59 Intake Total 1307 / 1307 1350 / 1350 Output Total 50 / 50 125 / 125 Balance 1257 / 1257 1225 / 1225 Weight 61 kg Intake: IV 1067 / 1067 1350 / 1350 NS Inj 1,000 ML @ 30 mls/hr IV. 967 / 967 1000 / 1000 CONT .Q24H CYNDIE Rx#:[id number] Azithromycin Inj 500 MG In NS 250 / 250 Inj 250 ML @ 250 mls/hr IV.SIG Q24H CYNDIE Rx#:[id number] Azactam Inj 1,000 MG In NS Inj 100 / 100 100 / 100 100 ML @ 200 mls/hr IV.SIG Q8H CYNDIE Rx#:[id number] Oral 240 / 240 0 / 0 Output: Urine 50 / 50 Urine Amount (Catheter) 125 / 125 Condom 125 / 125 Other: Date of Last Bowel Movement 10/30/18 10/30/18 # Bowel Movements 0 0 Narrative: GENERAL: middle aged man laying in bed, not in distress. HEENT:pale,anicteric, geographic tongue. NECK:no JVD,RIJ tunneled catheter,dressing in place. CARDIOVASCULAR: Regular rate and rhythm without murmurs, gallops, or rubs. RESPIRATORY: Clear to auscultation. Breath sounds equal bilaterally. No wheezes , rales, or rhonchi. GASTROINTESTINAL: Abdomen soft, non-tender, nondistended. Normal active bowel sounds MUSCULOSKELETAL: edema in both upper and lower extremities. Crepe dressing on Lt arm. NEURO: awake and alert,orient to self and is conversational today. Urinary Catheter Management Condom: Cath placed during this visit: no Results Labs CBC & Chem 7: 11/01/18 20:59 11/01/18 07:29 Assessment and Plan Plan 63 yo M with ESRD on HD MWF schedule, Anemia, HTN, HEP C,Metastatic prostatic cancer who was initially at [facility] for altered mentation, found to have pneumonia and UTI, was started on IV abx and admitted there. He suffered rupture of AVF during hemodialysis,with attendant hemorrhagic shock and was emergently taken to OR for AVF ligation, subsequently transferred to [facility] ICU for further management. Hemorrhagic shock Due to AVF rupture, no s/p ligation and hemostasis was achieved. monitor H/h, keep >8. Acute metabolic encephalopathy-likely multifactorial in setting of his metastatic cancer, infection, patient more awake and conversational this morning. Healthcare associated pneumonia -Aztreonam and azithromycin -blood cultures negative to date -Follow-up urine antigens Urinary tract infection -Broad-spectrum antibiotics as above, cultures negative to date. Anemia -Blood loss anemia -H/h stable. -Continue iron supplement Metastatic prostate cancer --with poor prognosis. -Palliative care team following,goals of care being discussed with family. DVT GI prophylaxis -Teds SCDs -No pharmacological DVT prophylaxis due to hemorrhagic shock -Pepcid Palliative care following to assist with deciding goals of therapy. Progress Note: Quality VTE Deep Vein Thrombosis/Pulmonary Embolism Present on Admission: No
[2018-11-03] MEDS: Heparin 10,000 UNITS/10 ML Vial (for IV use) OTHER PRN (10:31)
--- NOTE | 2018-11-03 11:55 | P.PNNP ---
Subjective Interval history: Patient seen during hemodialysis, patient is lethargic Physical Exam Vital signs: Vital Signs 11/02/18 12:00 11/02/18 13:00 11/02/18 14:00 Temperature 98.8 F Pulse Rate 79 75 79 Respiratory Rate 26 H 24 24 Blood Pressure 143/63 H 125/58 L 136/64 Pulse Oximetry 96 89 L 97 11/02/18 15:00 11/02/18 16:00 11/02/18 17:00 Temperature 98.5 F Pulse Rate 97 H 87 84 Respiratory Rate 22 20 18 Blood Pressure 138/63 139/62 115/59 L Pulse Oximetry 93 L 98 93 L 11/02/18 18:00 11/02/18 19:00 11/02/18 19:50 Temperature Pulse Rate 93 H 101 H Respiratory Rate 20 21 Blood Pressure 145/64 H 149/65 H Pulse Oximetry 93 L 91 L 95 11/02/18 20:00 11/02/18 21:00 11/02/18 22:00 Temperature 97.8 F Pulse Rate 81 91 H 86 Respiratory Rate 20 20 19 Blood Pressure 124/58 L 143/65 H 142/62 H Pulse Oximetry 96 99 98 11/02/18 23:00 11/03/18 00:00 11/03/18 01:00 Temperature 98 F Pulse Rate 90 83 82 Respiratory Rate 20 20 17 Blood Pressure 157/67 H 146/63 H 140/62 Pulse Oximetry 100 100 100 11/03/18 02:00 11/03/18 03:00 11/03/18 04:00 Temperature 98.1 F Pulse Rate 85 82 87 Respiratory Rate 19 16 19 Blood Pressure 141/63 H 150/64 H 156/67 H Pulse Oximetry 100 100 100 11/03/18 08:00 Temperature Pulse Rate Respiratory Rate 16 Blood Pressure Pulse Oximetry 100 Intake & Output 11/02/18 11/03/18 11/03/18 18:59 06:59 18:59 Intake Total 1307 / 1307 1350 / 1350 Output Total 50 / 50 125 / 125 Balance 1257 / 1257 1225 / 1225 Weight 61 kg Intake: IV 1067 / 1067 1350 / 1350 NS Inj 1,000 ML @ 30 mls/hr IV. 967 / 967 1000 / 1000 CONT .Q24H [facility] Rx#:[id number] Azithromycin Inj 500 MG In NS 250 / 250 Inj 250 ML @ 250 mls/hr IV.SIG Q24H [facility] Rx#:[id number] Azactam Inj 1,000 MG In NS Inj 100 / 100 100 / 100 100 ML @ 200 mls/hr IV.SIG Q8H [facility] Rx#:[id number] Oral 240 / 240 0 / 0 Output: Urine 50 / 50 Urine Amount (Catheter) 125 / 125 Condom 125 / 125 Other: Date of Last Bowel Movement 10/30/18 10/30/18 10/30/18 # Bowel Movements 0 0 Narrative: GENERAL: mal-nourished, looks very ill, lethargic SKIN: Cold and dry. HEAD: Normocephalic. EYES: No scleral icterus. No injection or drainage. NECK: Supple, trachea midline. No JVD or lymphadenopathy. CARDIOVASCULAR: Regular rate and rhythm without murmurs, gallops, or rubs. Permacath in place to right subclavian. RESPIRATORY: Breath sounds equal bilaterally. No accessory muscle use. Breath sounds diminished throughout GASTROINTESTINAL: Abdomen soft, non-tender, nondistended. EXTREMITIES: Loss of muscle mass, weak, AV fistula ligated and heavily bandaged , left hand swollen. NEUROLOGICAL: Lethargic, confused - Urinary Catheter Management Condom Cath placed during this visit: no Assessment and Plan - Assessment (1) End stage renal disease Code(s): N18.6 - End stage renal disease Status: Chronic Plan: Status post ligation to fistula on 10/30/2018, secondary to profuse bleeding, was hemodynamically unstable. Currently hemodynamically stable. Patient is on dialysis on Tuesday and Tuesday however he is doing very poorly due to metastatic prostate cancer. Dialysis performed yesterday. PSA of 196 Alkaline phosphatase very high Metastatic cancer to the bone Poor prognosis He is seen during hemodialysis UF of 1 L per family wishes they want to continue aggressive care According to palliative note, patient's daughter and son has decided to keep current full CODE STATUS. At this time, the patient is to confused to make an informed decision. Palliative care is meeting with patient's son and daughter to readdress status today. -Continue supportive care at this time (2) Metastatic malignant neoplasm to prostate Code(s): C79.82 - Secondary malignant neoplasm of genital organs Status: Acute Plan: Poor prognosis - palliative care on the case (3) Anemia Code(s): D64.9 - Anemia, unspecified Status: Acute Qualifiers: Anemia type: due to chronic kidney disease Chronic kidney disease stage: on chronic dialysis Qualified Code(s): N18.6 - End stage renal disease; D63.1 - Anemia in chronic kidney disease; Z99.2 - Dependence on renal dialysis Plan: Current hemoglobin 7.6 yesterday evening. 10,000 units of Epogen given during dialysis yesterday. -Continue to monitor -CBC in a.m.
--- NOTE | 2018-11-03 13:53 | P.PNPAL ---
Reason for Visit Reason for visit: a. To assist with evaluation and management of symptoms including: Altered mental status, pain, weight loss b. To assist medical decision maker(s) with: better understanding of current medical conditions; weighing benefits/burdens of medical treatment options; making medical treatment decisions. Subjective Subjective/Interval History: This is a 63-year old male with a past medical history of end-stage renal disease on hemodialysis, stage IV prostate cancer on Casodex, who has had increasing bone and leg pain, brought [facility]. [facility] [facility] due to altered mental status. EMS reports that the family had noted a slight change in his mental status the prior day which worsened over the next 24 hours. He is reportedly normally alert and oriented. He was neither responding to verbal commands nor following directions. It is noted that he had previously refused 1 day of dialysis in the prior week. He has lost 40 pounds since July 2018. Patient is seen today for medically necessary visit to evaluate symptom management pain, weight loss status and to discuss goals of care with family. Patient is awake today, more responsive but remains confused. He has minimal insight into his condition and states he "cannot make decisions". When asked if he has pain he replied "no, I have no pain at this time" and then stated " but it is time for me to have a pain pill". When re-queried regarding location and type of pain, he replies "you misunderstood, I am having pain". He dozes off during conversation quickly and then arouses speaking about being chased out of a bar because he had not paid his bill. Patient continues to have poor oral input in weight is 134 pounds today. He is cachectic visibly lethargic. The nurse reports that he has been refusing oral intake. . Family/Friend Interactions: Spoke with patient's daughter Lisa and son Frank in the conference room regarding his current state and goals of care. Reviewed his current medical condition and discussed specialists opinions and recommendations as well as CODE STATUS. Both children do agree that a DO NOT RESUSCITATE order is most consistent with his wishes as well as his current medical condition. Lisa is in favor of stopping dialysis and converting to comfort care and hospice while Juan Manuel remains more aggressive and wishes to continue dialysis with the hope that his father's mental condition will clear and he can hold a conversation with him. He states that he was told by Dr. Duval when his father was first diagnosed he would be in a month and he chooses to hope that his father will continue to tolerate dialysis and be coherent, in spite of his second terminal diagnosis of metastatic prostate cancer. At this time they wish to consider all the information given today prior to making any decision other than the DO NOT RESUSCITATE status. We discussed options for continuing dialysis to include discussing with the jail whether or not they would be willing to transport him even if he requires a stretcher due to his weakness , as he is extremely weak and unlikely to be able to transfer wheelchair to dialysis chair. The family will address that with [facility] and rehab where the patient had been living since October 02, 2018. As the patient was considering conversion to long-term care at that facility, the discussion had just started regarding applying for Medicaid which may affect the SNF's determination of transport to dialysis. Reviewed palliative care purpose and focus as regarding symptom management and support in formulating goals of care. Provided palliative care contact information. All questions answered to the best of my ability. . Advance Directives Health Care Surrogate Name and Number: Christin Ely and Juna Manuel Ross Objective Vital Signs: Vital Signs 11/02/18 14:00 11/02/18 15:00 11/02/18 16:00 Temperature 98.5 F Pulse Rate 79 97 H 87 Respiratory Rate 24 22 20 Blood Pressure 136/64 138/63 139/62 Pulse Oximetry 97 93 L 98 11/02/18 17:00 11/02/18 18:00 11/02/18 19:00 Temperature Pulse Rate 84 93 H 101 H Respiratory Rate 18 20 21 Blood Pressure 115/59 L 145/64 H 149/65 H Pulse Oximetry 93 L 93 L 91 L 11/02/18 19:50 11/02/18 20:00 11/02/18 21:00 Temperature 97.8 F Pulse Rate 81 91 H Respiratory Rate 20 20 Blood Pressure 124/58 L 143/65 H Pulse Oximetry 95 96 99 11/02/18 22:00 11/02/18 23:00 11/03/18 00:00 Temperature 98 F Pulse Rate 86 90 83 Respiratory Rate 19 20 20 Blood Pressure 142/62 H 157/67 H 146/63 H Pulse Oximetry 98 100 100 11/03/18 01:00 11/03/18 02:00 11/03/18 03:00 Temperature Pulse Rate 82 85 82 Respiratory Rate 17 19 16 Blood Pressure 140/62 141/63 H 150/64 H Pulse Oximetry 100 100 100 11/03/18 04:00 11/03/18 08:00 Temperature 98.1 F 98.7 F Pulse Rate 87 89 Respiratory Rate 19 20 Blood Pressure 156/67 H 149/63 H Pulse Oximetry 100 95 Intake & Output 11/02/18 11/03/18 11/03/18 18:59 06:59 18:59 Intake Total 1307 / 1307 1350 / 1350 Output Total 50 / 50 125 / 125 1000 / 1000 Balance 1257 / 1257 1225 / 1225 -1000 / -1000 Weight 134 lb 7.712 oz Intake: IV 1067 / 1067 1350 / 1350 NS Inj 1,000 ML @ 30 mls/hr IV. 967 / 967 1000 / 1000 CONT .Q24H [facility] Rx#:[id number] Azithromycin Inj 500 MG In NS 250 / 250 Inj 250 ML @ 250 mls/hr IV.SIG Q24H [facility] Rx#:[id number] Azactam Inj 1,000 MG In NS Inj 100 / 100 100 / 100 100 ML @ 200 mls/hr IV.SIG Q8H [facility] Rx#:[id number] Oral 240 / 240 0 / 0 Output: Urine 50 / 50 Hemodialysis Amount 1000 / 1000 Urine Amount (Catheter) 125 / 125 Condom 125 / 125 Other: Date of Last Bowel Movement 10/30/18 10/30/18 10/30/18 # Bowel Movements 0 0 Physical Exam: CONSTITUTIONAL/GENERAL: This is a cachectic, male lying in bed, lethargic, NAD. TUBES/LINES/DRAINS: Right chest permacath, right distal forearm PIV, right foot PIV, right wrist PIV, Pollock catheter SKIN: Mild jaundice, no rashes, or lesions. Ecchymoses on upper extremities. Left arm wrapped in surgical David wrap skin temperature appropriate. Not diaphoretic. HEAD: Atraumatic. Normocephalic. Temporal wasting. EYES: Pupils equal and round and reactive. Extraocular motions intact. No scleral icterus. No injection or drainage. Fundi not examined. CARDIOVASCULAR: Regular rate and rhythm without murmurs, gallops, or rubs. No JVD. Peripheral pulses symmetric. RESPIRATORY/CHEST: Symmetric, unlabored respirations. Clear to auscultation. Breath sounds equal bilaterally. No wheezes, rales, or rhonchi. GASTROINTESTINAL: Abdomen soft, non-tender, nondistended. No hepato-splenomegaly , or palpable masses. No guarding. Bowel sounds present. GENITOURINARY: Without palpable bladder distension. Oliguric, urinates approximately 100 mL daily.. MUSCULOSKELETAL: Significant muscle wasting, right arm with 2+ edema, blistered with ecchymosis on forearm, 2+ edema hands and feet. NEUROLOGICAL: Lethargic, dozes off and on during conversation, not responding to questions from his daughter consistently. Alert earlier today but hallucinating. PSYCHIATRIC: Flat affect, appears depressed, lethargic. . Diagnostic Tests Laboratory: Laboratory Results - last 72 hr 10/30/18 11/01/18 11/01/18 16:42 07:29 07:29 WBC 9.9 RBC 2.86 L Hgb 8.6 L Hct 25.3 L MCV 88.5 MCH 30.0 MCHC 33.9 RDW 21.0 H Plt Count 162 MPV 7.0 Neut % (Auto) 57.3 Lymph % (Auto) 37.8 [place] % (Auto) 4.4 Eos % (Auto) 0.1 Baso % (Auto) 0.4 Neut # (Auto) 5.7 Lymph # (Auto) 3.8 [place] # (Auto) 0.4 Eos # (Auto) 0.0 Baso # (Auto) 0.0 WBC Differential . Differential Comment Auto diff final PT 18.7 H INR 1.8 Sodium Potassium Chloride Carbon Dioxide Anion Gap BUN Creatinine Estimated GFR POC Glucose Random Glucose Calcium Total Bilirubin AST ALT Alkaline Phosphatase Total Protein Albumin MTS Gel Crossmatch See Detail 11/01/18 11/01/18 11/02/18 07:29 20:59 17:37 WBC 8.0 RBC 2.48 L Hgb 7.6 L Hct 22.1 L MCV 89.1 MCH 30.6 MCHC 34.4 RDW 20.6 H Plt Count 156 MPV 7.1 Neut % (Auto) 56.1 Lymph % (Auto) 36.9 [place] % (Auto) 6.6 Eos % (Auto) 0.1 Baso % (Auto) 0.3 Neut # (Auto) 4.5 Lymph # (Auto) 3.0 [place] # (Auto) 0.5 Eos # (Auto) 0.0 Baso # (Auto) 0.0 WBC Differential . Differential Comment Auto diff final PT INR Sodium 141 Potassium 4.8 Chloride 107 Carbon Dioxide 25.6 Anion Gap 8 BUN 28 H Creatinine 3.17 H Estimated GFR 20 L POC Glucose 78 Random Glucose 107 H Calcium 8.1 L Total Bilirubin 0.5 AST 299 H ALT 25 Alkaline Phosphatase 2917 H Total Protein 5.2 L Albumin 2.3 L MTS Gel Crossmatch 11/03/18 12:18 WBC RBC Hgb Hct MCV MCH MCHC RDW Plt Count MPV Neut % (Auto) Lymph % (Auto) [place] % (Auto) Eos % (Auto) Baso % (Auto) Neut # (Auto) Lymph # (Auto) [place] # (Auto) Eos # (Auto) Baso # (Auto) WBC Differential Differential Comment PT INR Sodium Potassium Chloride Carbon Dioxide Anion Gap BUN Creatinine Estimated GFR POC Glucose 88 Random Glucose Calcium Total Bilirubin AST ALT Alkaline Phosphatase Total Protein Albumin MTS Gel Crossmatch Result Diagrams: 11/03/18 15:48 11/01/18 07:29 Microbiology: Microbiology 10/26/18 17:00 Aerobic Blood Culture - Final Blood - Peripheral No growth in 5 days Anaerobic Blood Culture - Final No growth in 5 days 10/26/18 17:00 Aerobic Blood Culture - Final Blood - Peripheral No growth in 5 days Anaerobic Blood Culture - Final No growth in 5 days Imaging: ITS Impressions Chest X-Ray 10/26/18 16:35 CONCLUSION: 1. Mild infiltrate in the left lung base. 2. Otherwise, the rest the lung marinelli are grossly clear. Head CT 10/26/18 16:35 CONCLUSION: 1. Unremarkable CT brain for patient's age. . Central Venous Line 11/01/18 08:00 CONCLUSION: 1. Uncomplicated PermaCath placement as above. Procedures: 10/30: Ligation of left arm AVF 11/01: Right permacath placement . Assessment and Plan - Disease Oriented Problem List (1) Anemia (2) Dyspnea (3) End stage renal disease (4) Prostate cancer metastatic to bone (5) NSTEMI (non-ST elevated myocardial infarction) (6) Pain (7) Delirium Pertinent Non-Medical Issues: Psychosocial: He was born in the [facility] and has lived in this area for nearly 10 years. He is currently residing in a detention facility. He is 2 sons and 1 daughter, all local. 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 Spiritual: Amish robbi but not affiliated with any particular congregation or clergy. He is declining manager forms visits. Legal: No living well or DPOA. Patient has named his daughter Lisa and son Frank as co-HCS. Ethical issues impacting care: None noted. . Important Contacts: Daughter: Lisa Ely Frank Ross . Prognosis: His prognosis is poor. He has terminal, stage IV prostate cancer with metastasis to the bone. PSA is 196, alkaline phosphatase over 1999. He is having bone pain and altered mental status of unknown origin. He has end-stage renal disease on hemodialysis with significant unintentional weight loss of over 40 pounds in approximately 3 months. He would be hospice appropriate if goals were consistent. . Code Status: No Code DNR Plan: PLAN: Legal decision maker: He does not appear to be capacitated today, as he is too lethargic to respond. He has signed his daughter, Christin Ely and his son , Frank Ross as joint healthcare surrogate's in the likelihood that he is unable to make his decisions. At this time until his mental status can be clarified, would recommend shared decision making. Goals: Aggressive short of DO NOT RESUSCITATE CODE STATUS: DO NOT RESUSCITATE SYMPTOMS: * Altered mental status: Remains lethargic this morning with vacillating orientation. He is unable to respond at all to questions. His eyes are open but not focusing or tracking. * Pain: Secondary to bone metastasis, invasive lines, bedbound status, muscle wasting. He has Percocet 5/325 mg every 8 hours as needed available. Would recommend initiating methadone 2.5 mg twice daily due to its positive effect on bone pain, which he is having due to metastasis, to decrease the use of Percocet due to his sedation and AMS. * Weight loss: July 2018 he was 170 pounds, per his daughter, today he is 134 pounds. He has significant muscle wasting and debility. His albumin is 1.9 and he is developing increasing edema. He is receiving Marinol for appetite stimulation. On renal diet, however poor p.o. intake as patient refuses and is very lethargic. Palliative care will continue to follow the patient during hospital course as condition evolves, to assist patient/decision-maker with understanding of their medical conditions, weighing benefits/burdens of treatment options, for clarification of goals of treatment. Additionally will assist with any symptoms of palliative concern. .
[2018-11-03 15:59] LABS: Baso % (Auto) 0.3 % (0.0-2.0); Hematocrit 21.9 % (39.0-51.0); Hemoglobin 7.4 gm/dL (13.0-17.0); Lymph # (Auto) 3.4 th/mm3 (1.0-4.8); Lymph % (Auto) 41.4 % (9.0-44.0); Mean Corpuscular HGB Conc 33.8 % (32.0-36.0); Mean Corpuscular Hemoglobin 31.1 pg (27.0-34.0); Mean Platelet Volume 6.8 fL (7.0-11.0); Mono # (Auto) 0.4 th/mm3 (0.0-0.9); Mono % (Auto) 5.5 % (0.0-8.0); Neut # (Auto) 4.3 th/mm3 (1.8-7.7); Neut % (Auto) 52.8 % (16.0-70.0); Platelet Count 162 th/mm3 (150-450); Red Blood Count 2.38 mil/mm3 (4.50-5.90); White Blood Count 8.1 th/mm3 (4.0-11.0)
--- NOTE | 2018-11-03 16:13 | P.DIET ---
Nutritional Evaluation Type of nutrition evaluation: follow-up Nutrition screening: Weight Loss > 10 lbs Screening comments: 10/27/18 WLS Subjective Subjective Comments: 11/03/18 Per chart pt said he had lost 40lb in 3 months prior to admission w/ poor appetite. 10/27/18 Reports weight loss and poor appetite. Ate 50% of lunch today. Objective - Diagnosis Pneumonia, ESRD on HD, UTI, febrille illness, AMS - Objective % IBW: 78 (IBW = 166#) Body Weight Used for Calculations: Actual (58.8 kg) Energy Needs - Lower Range (kCal/kg): 32 Energy Needs - Upper Range (kCal/kg): 36 Lower Limit kCal/kg (kCals): 1,882 Upper Limit kCal/kg (kCals): 2,117 Lower Limit Protein Factor (Grams per Kg): 1.2 Upper Limit Protein Factor (Grams per Kg): 1.5 Lower Protein Needs (Protein): 71 Upper Protein Needs (Protein): 88 Dietitian Reviewed in Medical Record: Current diet, Curent medications, Intake & Output, Labs, Medical history Diet Order: NPO Objective Comments: Hx includes metastatic malignant neoplasm to the prostate Meds include Oscal-D, Marinol, FeSO4, protonix Labs: BUN 28, Cr 3.17, GFR 20, random glucose 110 107, AST 299 LBM 10/30/18 10/30/18 [facility] 11/03/18 HD Assessment Assessment: Pt remains at high nutrition risk 2' to poor po intake, dx, unintentional weight loss and low wt for ht with a BMI of 16.8. Per chart, pt was rejecting most meals on 10/31/18 before he was NPO on 11/01/18. Pt is now NPO, pending diet advancement per RN. Pt continues to have poor PO intake x5 days now since admission, may need to consider alternate form of nutrition. Continue to send Nepro as PO supplement when pt back on PO diet. Monitor NPO status. Labs reviewed, dietitian following. Additional recs to follow r/t medical course. Brought forward: It is noted that the pt is on an appetite stimulant (Marinol). Recommendations: 1. Pt continues to have poor PO intake x5 days now since admission, may need to consider alternate form of nutrition 2. Recommend Nepro as PO supplement when pt back on PO diet 3. Monitor NPO status 4. Dietitian following, additional recs to follow r/t medical course Dietitian to Monitor: Lab values, Renal labs, Glucose level, Supplement acceptance, Intake & Output, Diet tolerance, Weight change, PO Intake, Medical course
[2018-11-03 16:59] LABS: Alanine Aminotransferase 22 U/L (12-78); Albumin 1.9 g/dL (3.4-5.0); Anion Gap 10 meq/L (5-15); Aspartate Aminotransferase 82 U/L (15-37); Blood Urea Nitrogen 14 mg/dL (7-18); Calcium 7.5 mg/dL (8.5-10.1); Carbon Dioxide 26.6 meq/L (21.0-32.0); Chloride 106 meq/L (98-107); Glomerular Filtration Rate 40 mL/min (>89); Glucose,Random 82 mg/dL (74-106); Potassium 3.3 meq/L (3.5-5.1); Sodium 143 meq/L (136-145)
[2018-11-03] MEDS: Sod Chloride 0.9% Inj 1,000 ML IV.CONT SCH (18:26)
[2018-11-03] MEDS: Azithromycin Inj 500 MG in Sodium Chlor 0.9% Inj 250 ML IV.SIG SCH (18:38)
[2018-11-03 18:55] LABS: Alkaline Phosphatase 2909 U/L (45-117)
[2018-11-04] MEDS: Chlorhexidine Gluconate 2% 1 Pack (2 Cloths) TOPICAL SCH (04:59)
[2018-11-04] MEDS: Sod Chloride 0.9% Inj 1,000 ML IV.CONT SCH ×2 (05:24→22:33)
[2018-11-04] MEDS: Metoprolol Tartrate 25 MG Tablet PO SCH ×2 (09:00→22:36)
[2018-11-04] MEDS: Ferrous Sulfate 325 MG Tablet PO SCH ×3 (09:00→18:45)
[2018-11-04] MEDS: Magnesium Oxide 400 MG Tablet PO SCH (09:00)
[2018-11-04] MEDS: Calcium/Vitamin D 250/125 MG Tablet PO SCH ×2 (09:00→22:36)
--- NOTE | 2018-11-04 09:08 | P.PNIM ---
Subjective Interval history: D/w nurse. Patient apparently had crackles overnight and was put on non rebreather mask. Patient is lethargic this morning, opens eyes to name Physical Exam Vital signs: Vital Signs 11/03/18 12:00 11/03/18 16:00 11/03/18 18:52 Temperature 98 F 98.4 F Pulse Rate 87 90 Respiratory Rate 28 H 30 H Blood Pressure 111/59 L 148/62 H Pulse Oximetry 99 95 95 11/03/18 19:00 11/03/18 20:00 11/03/18 21:00 Temperature 98.5 F Pulse Rate 102 H 85 83 Respiratory Rate 35 H 27 H 24 Blood Pressure 144/64 H 144/61 H 151/65 H Pulse Oximetry 100 100 100 11/03/18 22:00 11/03/18 22:01 11/03/18 23:00 Temperature Pulse Rate 72 70 71 Respiratory Rate 22 22 21 Blood Pressure 165/64 H Pulse Oximetry 96 95 94 L 11/03/18 23:01 11/04/18 00:00 11/04/18 01:00 Temperature 98.4 F Pulse Rate 70 68 69 Respiratory Rate 21 20 19 Blood Pressure 141/62 H 151/64 H 148/67 H Pulse Oximetry 93 L 95 94 L 11/04/18 02:00 11/04/18 03:00 11/04/18 03:01 Temperature Pulse Rate 71 70 66 Respiratory Rate 18 18 17 Blood Pressure 158/81 H 146/63 H Pulse Oximetry 94 L 94 L 95 11/04/18 04:00 11/04/18 04:01 11/04/18 05:00 Temperature 98.4 F Pulse Rate 71 70 69 Respiratory Rate 17 17 31 H Blood Pressure 153/63 H 141/62 H Pulse Oximetry 92 L 92 L 99 11/04/18 06:00 11/04/18 08:00 Temperature Pulse Rate 67 Respiratory Rate 30 H Blood Pressure 137/56 L Pulse Oximetry 94 L 96 Intake & Output 11/03/18 11/04/18 11/04/18 18:59 06:59 18:59 Intake Total 1200 / 1200 1550 / 1550 Output Total 1050 / 1050 125 / 125 Balance 150 / 150 1425 / 1425 Weight 65 kg Intake: IV 1100 / 1100 1450 / 1450 NS Inj 1,000 ML @ 30 mls/hr IV. 1000 / 1000 1000 / 1000 CONT .Q24H [facility] Rx#:[id number] Azithromycin Inj 500 MG In NS 250 / 250 Inj 250 ML @ 250 mls/hr IV.SIG Q24H [facility] Rx#:[id number] Azactam Inj 1,000 MG In NS Inj 100 / 100 200 / 200 100 ML @ 200 mls/hr IV.SIG Q8H [facility] Rx#:[id number] Oral 100 / 100 100 / 100 Output: Hemodialysis Amount 1000 / 1000 Urine Amount (Catheter) 50 / 50 125 / 125 Condom 50 / 50 125 / 125 Other: Date of Last Bowel Movement 10/30/18 11/04/18 # Incontinent Bowel Movements 1 Narrative: GENERAL: middle aged man laying in bed, not in distress. HEENT:pale,anicteric, geographic tongue,dry oral mucous membranes. NECK:no JVD,RIJ tunneled catheter,dressing in place. CARDIOVASCULAR: Regular rate and rhythm without murmurs, gallops, or rubs. RESPIRATORY: Clear to auscultation. Breath sounds equal bilaterally. No wheezes , rales, or rhonchi. GASTROINTESTINAL: Abdomen soft, non-tender, nondistended. Normal active bowel sounds MUSCULOSKELETAL: edema in both upper and lower extremities. Crepe dressing on Lt arm. NEURO:patient drowsy but easily rousable, lethargic. He is obeying commands. Urinary Catheter Management Condom: Cath placed during this visit: no Results Labs CBC & Chem 7: 11/03/18 15:48 11/03/18 15:48 Assessment and Plan Plan 63 yo M with ESRD on HD MWF schedule, Anemia, HTN, HEP C,Metastatic prostatic cancer who was initially at [place] [facility] for altered mentation, found to have pneumonia and UTI, was started on IV abx and admitted there. He suffered rupture of AVF during hemodialysis,with attendant hemorrhagic shock and was emergently taken to OR for AVF ligation, subsequently transferred to [facility] ICU for further management. Hemorrhagic shock Due to AVF rupture, no s/p ligation and hemostasis was achieved. monitor H/h, keep >7. labs pending. Acute metabolic encephalopathy-likely multifactorial in setting of his metastatic cancer, infection. Healthcare associated pneumonia -Aztreonam and azithromycin -blood cultures negative to date -Follow-up urine antigens Urinary tract infection -Broad-spectrum antibiotics as above, cultures negative to date. Anemia -Blood loss anemia -H/h stable. -Continue iron supplement Metastatic prostate cancer --with poor prognosis. -Palliative care team following,goals of care being discussed with family. DVT GI prophylaxis -Teds SCDs -No pharmacological DVT prophylaxis due to hemorrhagic shock -Pepcid Palliative care following to assist with deciding goals of therapy. Progress Note: Quality VTE Deep Vein Thrombosis/Pulmonary Embolism Present on Admission: No
[2018-11-04 10:32] LABS: Baso # (Auto) 0.1 th/mm3 (0.0-0.2); Baso % (Auto) 0.7 % (0.0-2.0); Eos % (Auto) 0.1 % (0.0-4.0); Hematocrit 21.6 % (39.0-51.0); Hemoglobin 7.3 gm/dL (13.0-17.0); Lymph # (Auto) 3.8 th/mm3 (1.0-4.8); Lymph % (Auto) 43.2 % (9.0-44.0); Mean Corpuscular HGB Conc 33.7 % (32.0-36.0); Mean Corpuscular Hemoglobin 31.1 pg (27.0-34.0); Mean Corpuscular Volume 92.3 fL (80.0-100.0); Mean Platelet Volume 6.8 fL (7.0-11.0); Mono # (Auto) 0.5 th/mm3 (0.0-0.9); Mono % (Auto) 5.6 % (0.0-8.0); Neut # (Auto) 4.5 th/mm3 (1.8-7.7); Neut % (Auto) 50.4 % (16.0-70.0); Platelet Count 146 th/mm3 (150-450); Red Blood Count 2.34 mil/mm3 (4.50-5.90); Red Cell Distribution Width 20.4 % (11.6-17.2); White Blood Count 8.9 th/mm3 (4.0-11.0)
[2018-11-04 11:00] LABS: Albumin 1.8 g/dL (3.4-5.0); Calcium 7.7 mg/dL (8.5-10.1); Carbon Dioxide 26.3 meq/L (21.0-32.0); Phosphorus 2.6 mg/dL (2.5-4.9); Potassium 3.3 meq/L (3.5-5.1)
--- NOTE | 2018-11-04 12:48 | P.PNNP ---
Subjective Interval history: Patient is lethargic and in moderate resp. distress. Physical Exam Vital signs: Vital Signs 11/03/18 16:00 11/03/18 18:52 11/03/18 19:00 Temperature 98.4 F Pulse Rate 90 102 H Respiratory Rate 30 H 35 H Blood Pressure 148/62 H 144/64 H Pulse Oximetry 95 95 100 11/03/18 20:00 11/03/18 21:00 11/03/18 22:00 Temperature 98.5 F Pulse Rate 85 83 72 Respiratory Rate 27 H 24 22 Blood Pressure 144/61 H 151/65 H Pulse Oximetry 100 100 96 11/03/18 22:01 11/03/18 23:00 11/03/18 23:01 Temperature Pulse Rate 70 71 70 Respiratory Rate 22 21 21 Blood Pressure 165/64 H 141/62 H Pulse Oximetry 95 94 L 93 L 11/04/18 00:00 11/04/18 01:00 11/04/18 02:00 Temperature 98.4 F Pulse Rate 68 69 71 Respiratory Rate 20 19 18 Blood Pressure 151/64 H 148/67 H 158/81 H Pulse Oximetry 95 94 L 94 L 11/04/18 03:00 11/04/18 03:01 11/04/18 04:00 Temperature 98.4 F Pulse Rate 70 66 71 Respiratory Rate 18 17 17 Blood Pressure 146/63 H Pulse Oximetry 94 L 95 92 L 11/04/18 04:01 11/04/18 05:00 11/04/18 06:00 Temperature Pulse Rate 70 69 67 Respiratory Rate 17 31 H 30 H Blood Pressure 153/63 H 141/62 H 137/56 L Pulse Oximetry 92 L 99 94 L 11/04/18 08:00 Temperature Pulse Rate Respiratory Rate Blood Pressure Pulse Oximetry 96 Intake & Output 11/03/18 11/04/18 11/04/18 18:59 06:59 18:59 Intake Total 1200 / 1200 1550 / 1550 Output Total 1050 / 1050 125 / 125 Balance 150 / 150 1425 / 1425 Weight 65 kg Intake: IV 1100 / 1100 1450 / 1450 NS Inj 1,000 ML @ 30 mls/hr IV. 1000 / 1000 1000 / 1000 CONT .Q24H CYNDIE Rx#:[id number] Azithromycin Inj 500 MG In NS 250 / 250 Inj 250 ML @ 250 mls/hr IV.SIG Q24H CYNDIE Rx#:[id number] Azactam Inj 1,000 MG In NS Inj 100 / 100 200 / 200 100 ML @ 200 mls/hr IV.SIG Q8H CYNDIE Rx#:[id number] Oral 100 / 100 100 / 100 Output: Hemodialysis Amount 1000 / 1000 Urine Amount (Catheter) 50 / 50 125 / 125 Condom 50 / 50 125 / 125 Other: Date of Last Bowel Movement 10/30/18 11/04/18 # Incontinent Bowel Movements 1 Narrative: GENERAL: mal-nourished, looks very ill, lethargic SKIN: Cold and dry. HEAD: Normocephalic. EYES: No scleral icterus. No injection or drainage. NECK: Supple, trachea midline. No JVD or lymphadenopathy. CARDIOVASCULAR: Regular rate and rhythm without murmurs, gallops, or rubs. Permacath in place to right subclavian. RESPIRATORY: Breath sounds equal bilaterally. No accessory muscle use. Breath sounds diminished throughout GASTROINTESTINAL: Abdomen soft, non-tender, nondistended. EXTREMITIES: Loss of muscle mass, weak, AV fistula ligated and heavily bandaged , left hand swollen. NEUROLOGICAL: Lethargic, confused - Urinary Catheter Management Condom Cath placed during this visit: no Assessment and Plan - Assessment (1) End stage renal disease Code(s): N18.6 - End stage renal disease Status: Chronic Plan: Status post ligation to fistula on 10/30/2018, secondary to profuse bleeding, was hemodynamically unstable. Currently hemodynamically stable. Patient is on dialysis on Tuesday and Tuesday however he is doing very poorly due to metastatic prostate cancer. Dialysis performed yesterday. PSA of 196 Alkaline phosphatase very high Metastatic cancer to the bone Poor prognosis According to palliative note, patient's daughter and son has decided to keep current full CODE STATUS. -Continue supportive care at this time. D/W the son at bed side. (2) Metastatic malignant neoplasm to prostate Code(s): C79.82 - Secondary malignant neoplasm of genital organs Status: Acute Plan: Poor prognosis - palliative care on the case (3) Anemia Code(s): D64.9 - Anemia, unspecified Status: Acute Qualifiers: Anemia type: due to chronic kidney disease Chronic kidney disease stage: on chronic dialysis Qualified Code(s): N18.6 - End stage renal disease; D63.1 - Anemia in chronic kidney disease; Z99.2 - Dependence on renal dialysis Plan: Current hemoglobin 7.6 yesterday evening. 10,000 units of Epogen given during dialysis yesterday. -Continue to monitor -CBC in a.m. - Plan Patient is very lethargic, I examined him and spoke to him, he appears to be confused, discussed with palliative care, apparently there is disagreement in the family daughter wants comfort measures but son want to be aggressive, I will request placement of PermCath Care discussed with ANN Lozano agree with above assessment and plan
[2018-11-04] MEDS: Azithromycin Inj 500 MG in Sodium Chlor 0.9% Inj 250 ML IV.SIG SCH (19:53)
[2018-11-05] MEDS ORDERED: Morphine Inj 4 MG/ML Vial IV.PUSH ONE (03:54)
--- NOTE | 2018-11-05 20:12 | P.EN ---
Late entry for Event that transpired at 4 am on 11/05/18 HEALTHCARE MANAGEMENT CONSULTANT notified by RN that patient had acute respiratory decline and saturation in the 50s. Bipap ordered due to dnr states, at this time patient was semi alert. When bipap arrived patient became unresponsive and bipap was unable to be placed. Family was notified by RN and they did not wish to have patient intubated. At this time pulse was 50 and o2 40. Morphine given for comfort. Patient at 4:31am. Testing Rehab Instance Type Buttocks: Wound Type: Pressure Injury Is This a Chronic Wound: Yes Wound Length: 4 Left Forearm: Wound Type: Skin Tear Is This a Chronic Wound: No Left Heel: Wound Type: Blister Right Heel: Wound Type: Pressure Injury Wound Length: 3
--- NOTE | 2018-11-06 17:57 | P.DN ---
Provider Primary care physician: UNKNOWN Consults: 10/26/18 18:43 Consult to Nephrology Routine Consulting Provider: Karena Duval Does the patient have a Web Content Editor who follows them?: Yes Preferred Nephrology Library Specialist:: Karena Duval Reason for Consultation: ESRD Notified:: Service Spoke with:: Malou Date Notified:: 10/26/18 Time Notified:: 19:10 Ordering Provider: PAIGE 10/27/18 10:48 Consult to Palliative Care Routine Consulting Provider: Phoenix Sanders Reason for Consultation: Terminal Prostate cancer Notified:: Service Spoke with:: kasandra Date Notified:: 10/27/18 Time Notified:: 10:55 Ordering Provider: ELIZABETH 10/30/18 16:40 Consult to Vascular Surgery Stat Consulting Provider: Tj Alexandra For STAT consult, spoke directly to:: Dr. Alexandra Preferred Library Specialist:: Tj Alexandra Patient known to:: Tj Alexandra Reason for Consultation: Discussed with Dr. Alexandra who immediately came to evaluate patient. ESRD patient with fistula related bleed and subsequent hemorrhagic shock. No need to call Vascular surgeon. Notified:: Physician Spoke with:: Dr Alexandra Date Notified:: 10/30/18 Time Notified:: 16:46 Ordering Provider: CECI 10/30/18 17:22 Consult to Chemist Pharmaceutical Stat Consulting Provider: Mckinley Rosado For STAT consult, spoke directly to:: ALFONSO Preferred Library Specialist:: Mckinley Rosado Reason for Consultation: s/p emergent ligation of LEFT arm AVF Spoke with:: added to list, doctors spoke Date Notified:: 10/30/18 Time Notified:: 17:24 Ordering Provider: SAMANTHA 10/30/18 17:23 Consult to Chemist Pharmaceutical Routine Consulting Provider: Mckinley Rosado Reason for Consultation: ESRD patient had fistula related bleed, went into hemorrhagic shock. Dr. Alexandra performed emergent surgery and he has discussed with Dr. Rosado. Spoke with:: brian, put in already as STAT Date Notified:: 10/30/18 Time Notified:: 17:28 Ordering Provider: CECI 10/31/18 17:20 Consult to Hospitalist Routine Consulting Provider: Keith Baig Reason for Consultation: Consult and transfer to hospitalist service for medical management. Critical care will be signing off, please reconsult if needed Notified:: Service Spoke with:: Kimberly Date Notified:: 10/31/18 Time Notified:: 17:28 Comments:: Ordering Provider: SPARKLE Admitting Diagnosis (1) Hemorrhagic shock: (2) Metastatic malignant neoplasm to prostate: (3) Acute alteration in mental status: (4) Anemia: (5) Pneumonia: Date and Time Date of admission: 10/27/18 05:28 Date of : 11/05/18 Time of : 04:31 Summary Brief History: This is a 63-year-old male with a history of end-stage renal disease on hemodialysis Tuesday and Tuesday, anemia on iron supplementation, hypertension, hepatitis C and metastatic prostate cancer. He was sent from a local skilled nursing because of altered mental status. He was noted to be confused and not responding to questions. In the ED he was found to have pneumonia and UTI and was given cefepime and Zithromax. Today he is alert and oriented. States he does not feel well. He has been having productive cough but no shortness of breath. He also has no UTI symptoms, fever and chills. Also reports of constipation. Chest x-ray reviewed by me with mild infiltrate in the left lung base. EKG independent reviewed by me with sinus rhythm, PVC in lead III T inversion in V4 and V5 no significant change from previous. All other systems reviewed negative Result Diagrams: 11/04/18 09:53 11/04/18 09:53 Hospital Course: Patient was initially at [facility] for altered mentation, found to have pneumonia and UTI, was started on IV abx and admitted there. He suffered rupture of AVF during hemodialysis,with attendant hemorrhagic shock with systolic BP at 60, re was given fluids and Levophed was started and was emergently taken to OR for AVF ligation, was stabilized and subsequently transferred to [facility] ICU for further management. His hemoglobin remained stable able 7g/dl during his ICU stay. He was continued on IV Aztreonam and Azithromycin healthcare acquired pneumonia. Patient was noted to be Lethargic and intermittently confused during this hospitalization and this was though to be due to his metastatic prostate cancer the prognosis of which was noted to be poor, and in the setting of acute pneumonia for which he was already on antibiotics. Patient continued to receive hemodialysis as per schedule. Palliative care team was consulted during this hospitalization and had discussions with the family regarding goals of care. The family agreed for patient to be DNR/DNI but had not reached a conclusion on whether patient should be transitioned to hospice care. About 4 am on 11/05, patient's respiratory status declined, covering LASER CUTTER notified by RN that patient had acute respiratory decline and saturation in the 50s. Bipap ordered due to dnr states, at this time patient was semi alert. When bipap arrived patient became unresponsive and bipap was unable to be placed. Family was notified by RN and they did not wish to have patient intubated. At this time pulse was 50 and o2 40. Morphine given for comfort. Patient at 4:31am. The family was notified.
== END 2018-11-05 04:31 | disposition expired | DRG 853 ==
LOC: PHEDA 16:08 → PHED 16:08 → PH3 20:20 → PHICU 10-30 16:04 → HIMC 10-30 20:05
PROVIDERS: ADMIT Hospitalist; ATTEND Hospitalist
PROC: AVGFTUE (ICD-10-PCS; 2018-10-30 16:35)
DX: D50.0 Iron deficiency anemia secondary to blood loss (chronic); K59.00 Constipation, unspecified; C79.51 Secondary malignant neoplasm of bone; D63.1 Anemia in chronic kidney disease; Z80.42 Family history of malignant neoplasm of prostate; G93.41 Metabolic encephalopathy; Z79.82 Long term (current) use of aspirin; L89.151 Pressure ulcer of sacral region, stage 1; I12.0 Hypertensive chronic kidney disease with stage 5 chronic kidney disease or end stage renal disease; Z99.2 Dependence on renal dialysis; Z87.891 Personal history of nicotine dependence; A41.9 Sepsis, unspecified organism; B19.20 Unspecified viral hepatitis C without hepatic coma; N39.0 Urinary tract infection, site not specified; K14.1 Geographic tongue; J18.9 Pneumonia, unspecified organism; R65.20 Severe sepsis without septic shock; Z88.0 Allergy status to penicillin; I49.3 Ventricular premature depolarization; N18.6 End stage renal disease; R64 Cachexia; N17.9 Acute kidney failure, unspecified; Y95 Nosocomial condition; T82.838A Hemorrhage due to vascular prosthetic devices, implants and grafts, initial encounter; K72.90 Hepatic failure, unspecified without coma; Z66 Do not resuscitate; C61 Malignant neoplasm of prostate; R57.8 Other shock; R53.1 Weakness; Z68.1 Body mass index [BMI] 19.9 or less, adult
CPT/HCPCS: 36430; 36558; 70450; 71010; 71045; 75998; 76937; 77001; 80048; 80053; 80069; 81001; 82140; 82272; 82550; 82728; 82948; 82962; 83540; 83550; 83605; 83735; 84145; 84443; 84484; 85025; 85610; 85730; 86850; 86900; 86901; 86920; 86923; 87040; 87086; 87641; 90765; 90766; 90774; 90775; 90784; 90935; 93005; 96365; 96366; 96374; 96375; 97162; 97530; 99285; C1750; C1769; C8952; G0378; J0330; J0456; J0692; J0886; J1580; J1644; J2250; J2270; J2370; J2704; J3010; J3370; J7030; J7050; P9016; P9047; P9612; Q4055; Q4081